=== PATIENT | female | born 1940 | race Caucasian/White ===

== ENCOUNTER 2018-04-09 06:00 | Day surgery (SDC) | payer MEDICARE, OTHER, SELFPAY ==
--- NOTE | 2018-04-07 08:03 | POEE_ITS ---
History of Present Illness Chief Complaint: Progressive decreased vision, left eye Narrative: The patient is a 77-year-old female who presented with complaints of progressive decreased vision in both eyes at both distance and near. She particularly has difficulty with driving at night. On examination she was noted to have moderate nuclear cortical and posterior subcapsular cataract, left eye worse than right with significant glare disability. The option of cataract surgery was offered to the patient and she felt she was symptomatic enough that she wished to proceed. NOTE: The Chief Complaint, HPI, Past Medical History, Past Surgical History, Family History, Social History, Medications, and complete Ophthalmic Exam with detailed Assessment and Plan have already been documented in the patient's outpatient ophthalmic record and are not covered again in detail here. PFS Medical History Nuclear sclerotic cataract of left eye (Acute) Posterior subcapsular age-related cataract of left eye (Acute) Cortical cataract of left eye (Acute) Social History Smoking/Tobacco Use Status: Never Meds Home Medications Medication Instructions Recorded Confirmed Type aspirin [Aspir-81] 81 mg PO DAILY 11/30/13 04/04/18 History atenolol 50 mg PO DAILY 11/30/13 04/04/18 History calcium carb and citrate-vitD3 1 tab PO DAILY 11/30/13 04/04/18 History [Citracal + D Slow Release] simvastatin 10 mg PO DAILY 11/30/13 04/04/18 History hydrochlorothiazide 25 mg PO DAILY 12/21/17 04/04/18 History L. gasseri-B. bifidum-B longum 1 cap PO DAILY 04/04/18 04/04/18 History [Probiotic Colon Care] bisacodyl [Dulcolax (bisacodyl)] 5 mg PO DAILY PRN 04/04/18 04/04/18 History cetirizine [Zyrtec] 1 cap PO DAILY 04/04/18 04/04/18 History cyanocobalamin (vitamin B-12) 1,000 mcg PO DAILY 04/04/18 04/04/18 History [Vitamin B-12] fluticasone [Flonase Allergy 2 spray INTRANASAL DAILY 04/04/18 04/04/18 History Relief] magnesium oxide 400 mg PO DAILY 04/04/18 04/04/18 History omeprazole 20 mg PO DAILY PRN 04/04/18 04/04/18 History psyllium husk (aspartame) 1 ea PO DAILY 04/04/18 04/04/18 History [Metamucil [facility] Fiber] rivaroxaban [Xarelto] 15 mg PO DAILY 04/04/18 04/04/18 History Allergies Allergy/AdvReac Type Severity Reaction Status Date / Time Sulfa (Sulfonamide AdvReac Severe liver Unverified 04/04/18 08:00 Antibiotics) damage ciprofloxacin [From Cipro] AdvReac Intermediate unknown Unverified 04/04/18 08: 00 glucosamine AdvReac Intermediate Nausea Unverified 04/04/18 08:00 Epideral Dressing AdvReac Severe Blistering Uncoded 04/04/18 12:56 Exam OCULAR EXAM:: Visual acuity at distance: Corrected to 20/20 right eye, 20/70 left eye. Pupils: Pupils equal, round, and reactive without afferent pupillary defect IOP: 16 OD 18 OS Extraocular Motility: Normal Pertinent Slit Lamp Findings: Significant for pupils dilating to 7 mm OU. In the right eye 1+ nuclear and 1+ cortical cataract is present with mild posterior subcapsular cataract. In the left eye 2+ nuclear with 1+ cortical and posterior subcapsular cataract is present. Dilated Funduscopic Examination: Disc cupping is 0.3 OU with normal vessels, macula, peripheral retina and vitreous. BRIGHTNESS ACUITY TESTING (BAT):: Off: Left eye 20/30 Low: 20/200 Medium: 20/400 High: Less than 20/400 Assessment and Plan (1) Cortical cataract of left eye: Current visit: No Status: Acute Assessment: Visually significant cataract, left eye. Plan: Cataract extraction with intraocular lens implantation, left eye (2) Posterior subcapsular age-related cataract of left eye: Current visit: No Status: Acute Assessment: Visually significant cataract, left eye. Plan: Cataract extraction with intraocular lens implantation, left eye (3) Nuclear sclerotic cataract of left eye: Current visit: No Status: Acute Assessment: Visually significant cataract, left eye. Plan: Cataract extraction with intraocular lens implantation, left eye Note: NOTE:: The details of the planned surgery, including the risks, indications, limitations,expectations,outcome and possible complications were explained to the patient. The patient understands the complications including, but not limited to: infection, hemorrhage, posterior dislocation of the lens or nuclear fragments which may require the intervention of a vitreoretinal surgeon, possible loss of the eye, or from anesthetic complications. The patient has been made aware of the option of not having surgery, that vision following surgery may not be equal to that prior to surgery, and that the planned surgery may not achieve the intended results. Following this discussion, which the patient appeared to understand, the patient wishes to proceed with cataract surgery with lens implantation of the affected eye to improve and maximize vision.
--- NOTE | 2018-04-07 08:05 | PDOC.DSDIS_ITS ---
Discharge Plan Discharge Details Attending Provider: Gavin Jean-Baptiste Primary Care Provider: Dulce Hidalgo Home Meds and New Rx's Prescriptions: No Action simvastatin 10 MG tablet 10 mg PO DAILY RF: 0 aspirin [Aspir-81] 81 MG tablet,delayed release (DR/EC) 81 mg PO DAILY RF: 0 atenolol 50 MG tablet 50 mg PO DAILY RF: 0 calcium carb and citrate-vitD3 [Citracal + D Slow Release] 1 EACH tablet extended release 1 tab PO DAILY RF: 0 hydrochlorothiazide 25 MG tablet 25 mg PO DAILY RF: 0 cyanocobalamin (vitamin B-12) [Vitamin B-12] 1,000 mcg Tablet 1,000 mcg PO DAILY RF: 0 fluticasone [Flonase Allergy Relief] 50 mcg/actuation [place],Suspension 2 spray INTRANASAL DAILY RF: 0 psyllium husk (aspartame) [Metamucil [facility] Fiber] 3.4 gram/5.8 gram Powder 1 ea PO DAILY RF: 0 cetirizine [Zyrtec] 10 mg Capsule 1 cap PO DAILY RF: 0 omeprazole 20 mg Capsule,Delayed Release(Dr/Ec) 20 mg PO DAILY PRNRF: 0 bisacodyl [Dulcolax (bisacodyl)] 5 mg Tablet,Delayed Release (Dr/Ec) 5 mg PO DAILY PRNRF: 0 L. gasseri-B. bifidum-B longum [Probiotic Colon Care] 1.5 billion cell Capsule 1 cap PO DAILY RF: 0 magnesium oxide 400 mg Capsule 400 mg PO DAILY RF: 0 rivaroxaban [Xarelto] 15 MG tablet 15 mg PO DAILY RF: 0 Discharge Instructions Stand Alone Forms: Post-op Topical Cataract, Millie [place] (DSU) DS: Diagnosis Discharge Diagnosis (1) Cortical cataract of left eye: Status: Acute (2) Posterior subcapsular age-related cataract of left eye: Status: Acute (3) Nuclear sclerotic cataract of left eye: Status: Acute
[2018-04-09 06:10] VITALS: BP 128/63; PULSE 63; RESP 18; TEMP 36.6; O2SAT 98
[2018-04-09] MEDS: Midazolam/Ketamine/Ondansetron (3/25/2MG) 1 TAB 1 EACH SL (07:17)
--- NOTE | 2018-04-09 07:19 | W.PM.DSUDISC ---
Discharge Plan Discharge Details Attending Provider: Gavin Jean-Baptiste Primary Care Provider: Dulce Hidalgo Home Meds and New Rx's Prescriptions: No Action simvastatin 10 MG tablet 10 mg PO DAILY RF: 0 aspirin [Aspir-81] 81 MG tablet,delayed release (DR/EC) 81 mg PO DAILY RF: 0 atenolol 50 MG tablet 50 mg PO DAILY RF: 0 calcium carb and citrate-vitD3 [Citracal + D Slow Release] 1 EACH tablet extended release 1 tab PO DAILY RF: 0 hydrochlorothiazide 25 MG tablet 25 mg PO DAILY RF: 0 cyanocobalamin (vitamin B-12) [Vitamin B-12] 1,000 mcg Tablet 1,000 mcg PO DAILY RF: 0 fluticasone [Flonase Allergy Relief] 50 mcg/actuation [place],Suspension 2 spray INTRANASAL DAILY RF: 0 psyllium husk (aspartame) [Metamucil [facility] Fiber] 3.4 gram/5.8 gram Powder 1 ea PO DAILY RF: 0 cetirizine [Zyrtec] 10 mg Capsule 1 cap PO DAILY RF: 0 omeprazole 20 mg Capsule,Delayed Release(Dr/Ec) 20 mg PO DAILY PRNRF: 0 bisacodyl [Dulcolax (bisacodyl)] 5 mg Tablet,Delayed Release (Dr/Ec) 5 mg PO DAILY PRNRF: 0 L. gasseri-B. bifidum-B longum [Probiotic Colon Care] 1.5 billion cell Capsule 1 cap PO DAILY RF: 0 magnesium oxide 400 mg Capsule 400 mg PO DAILY RF: 0 rivaroxaban [Xarelto] 15 MG tablet 15 mg PO DAILY RF: 0 Discharge Instructions Stand Alone Forms: Post-op Topical Cataract, Millie [place] (DSU) DS: Diagnosis Discharge Diagnosis (1) Cortical cataract of left eye: Status: Resolved (2) Posterior subcapsular age-related cataract of left eye: Status: Resolved (3) Nuclear sclerotic cataract of left eye: Status: Resolved (4) Status post cataract extraction and insertion of intraocular lens of left eye: Status: Chronic
[2018-04-09] MEDS: Povidone-Iodine Ophth 30 ML BTL (07:33)
[2018-04-09] MEDS: Lidocaine 2% Jelly 6 ML SYR (07:34)
[2018-04-09] MEDS: Lidocaine 1% Pres-Free 5 ML VIAL (07:40)
[2018-04-09] MEDS: Balanced Salt Soln.-PLUS 500 ML BAG (07:42)
--- NOTE | 2018-04-09 08:01 | W.PM.OP ---
Date of service: 04/09/18 Time of Service: 08:01 Operative Note DATE OF PROCEDURE: 04/09/18 PRE-OP DIAGNOSIS: Cataract, left eye POST-OP DIAGNOSIS: same PROCEDURE: Cataract extraction using phacoemulsification with intraocular lens implant, left eye SURGEON: Gavin Jean-Baptiste ANESTHESIA: MAC and local (sub-tenon's anesthetic infiltration) PATHOLOGY: none sent COMPLICATIONS: None Patient was transported to: same day Patient's condition: stable Implants: [place] [employer] [place] [employer] / [employer] Tecnis ZCB00 Indications: Progressive decreased vision due to cataract, left eye Procedure Description: CATARACT SURGERY OPERATIVE REPORT PREOPERATIVE DIAGNOSIS: Nuclear/cortical/posterior subcapsular cataract, left eye POSTOPERATIVE DIAGNOSIS: Same OPERATION: Cataract extraction using phacoemulsification with posterior chamber intraocular lens implant, left eye. IOL: IOL Manager Branch/Model: [employer] Vision / ROSA Tecnis ZCB00 IOL Power: + 14.50 diopters IOL Serial Number: [id number] Optic Diameter: 6.0mm Haptic/Overall Diameter: 13.0mm PHACO INFO: AviCyanon Vision System with OZil and Active Fluidics Cumulative Dispersed Energy (CDE): 13.19 seconds SURGEON: Gavin Jean-Baptiste MD, NAZIA ANESTHESIA: Monitored Anesthesia Care (MAC), with local sub-tenon's anesthetic infiltration COMPLICATIONS: None SPECIMENS: None INDICATIONS FOR PROCEDURE: The patient is a 77-year old lady with history of progressive decreased vision in both eyes at both distance and near. She has a history of moderate myopia. She was noted to have a significant nuclear cortical and posterior subcapsular cataract in the left eye. The option of cataract surgery was offered to the patient and she felt she was symptomatic enough that she wished to proceed. PROCEDURE: The correct surgical eye was identified and marked as the left eye and the pupil was dilated in the preoperative area using mydriatics, cycloplegics, and NSAIDS (except in aspirin allergic patients). The dilated pupil size was 8.0 mm. Oral sedation was administered in the form of an Imprimis MKO Melt (midazolam 3mg/ketamine 25mg/ondansetron 2mg). The patient was brought to the operating room where cardiopulmonary monitoring was instituted and surgical time-out was performed, confirming the correct operative eye and IOL power. Topical anesthesia was administered and ophthalmic povidone-iodine 5% was instilled into the conjunctival fornices. Lidocaine gel was applied to the cornea and the hayley-ocular area was prepped with Betadine 10% solution and draped in the usual sterile fashion for intraocular surgery. Steri-strips were used to cover the lashes and lid margins and an adhesive eye drape was placed. Care was taken to isolate the lashes and lid margins under the Steri-strips and adhesive eye drape. A lid speculum was placed between the lids of the operative eye and the Mak-Nino operating microscope was maneuvered into position. Melissa scissors were then used to make a conjunctival buttonhole approximately 6mm posterior to the limbus in the inferonasal quadrant. Blunt dissection was carried out to expose bare sclera, and a blunt-tipped sub-tenon?s anesthesia cannula was introduced and passed posteriorly along the globe where non-preserved plain lidocaine was injected into posterior sub-Tenon?s space. A sideport knife was used to make a paracentesis port at the 12:00 postion and the anterior chamber was filled with Healon GV. A 2.4mm keratome knife was used to create a half-thickness groove at the limbus and then to construct a three-plane near-clear corneal tunnel extending 2.0mm into clear cornea at the 3:00 position. A flap was raised on the anterior capsule and capsulorhexis forceps were used to complete a continuous curvilinear capsulorhexis of 5.5 mm. Balanced salt solution was then used to perform cortical cleaving hydrodissection and nuclear hydrodelineation until the lens could be freely rotated within the capsular bag. The lens nucleus was then disassembled and removed within the capsular bag and iris plane using phacoemulsification. Residual cortical material was removed using the 45-degree angled silicone I/A tip with 0.3mm port. The posterior capsule was carefully polished to remove as much residual lens epithelial cells as safely possible. The capsular bag was then inflated and the anterior chamber deepened with viscoelastic. The lens implant described above was inserted into the capsular bag using the ROSA [place] Injector. A Kuglen hook was used to dial the IOL into position. Residual viscoelastic was then removed first from posterior to the IOL, then from the anterior chamber using the I/A handpiece. The lens implant was noted to center nicely within the capsular bag. The incisions were stromally hydrated, and the anterior chamber was reformed using BSS. Then 0.4cc of moxifloxacin 1.5mg/ml were injected into the capsular bag and anterior chamber. The incisions were checked with a Weck spear and found to be secure. Several drops of ophthalmic povidone-iodine 5% were then applied to the eye followed by two drops of Imprimis combination moxifloxacin/dexamethasone solution. The drapes were removed and a clear plastic protective eye shield was placed over the eye. The patient was then returned to Same Day Surgery in stable condition.
--- NOTE | 2018-04-09 08:04 | ROE_ITS ---
Date of service: 04/09/18 Time of Service: 08:01 Operative Note DATE OF PROCEDURE: 04/09/18 PRE-OP DIAGNOSIS: Cataract, left eye POST-OP DIAGNOSIS: same PROCEDURE: Cataract extraction using phacoemulsification with intraocular lens implant, left eye SURGEON: Gavin Jean-Baptiste ANESTHESIA: MAC and local (sub-tenon's anesthetic infiltration) PATHOLOGY: none sent COMPLICATIONS: None Patient was transported to: same day Patient's condition: stable Implants: [place] and [place] [employer] / [employer] Tecnis ZCB00 Indications: Progressive decreased vision due to cataract, left eye Procedure Description: CATARACT SURGERY OPERATIVE REPORT PREOPERATIVE DIAGNOSIS: Nuclear/cortical/posterior subcapsular cataract, left eye POSTOPERATIVE DIAGNOSIS: Same OPERATION: Cataract extraction using phacoemulsification with posterior chamber intraocular lens implant, left eye. IOL: IOL Art Dealer/Model: J&J Vision / ROSA Tecnis ZCB00 IOL Power: + 14.50 diopters IOL Serial Number: [id number] Optic Diameter: 6.0mm Haptic/Overall Diameter: 13.0mm PHACO INFO: AviUXPinon Vision System with OZil and Active Fluidics Cumulative Dispersed Energy (CDE): 13.19 seconds SURGEON: Gavin Jean-Baptiste MD, NAZIA ANESTHESIA: Monitored Anesthesia Care (MAC), with local sub-tenon's anesthetic infiltration COMPLICATIONS: None SPECIMENS: None INDICATIONS FOR PROCEDURE: The patient is a 77-year old lady with history of progressive decreased vision in both eyes at both distance and near. She has a history of moderate myopia. She was noted to have a significant nuclear cortical and posterior subcapsular cataract in the left eye. The option of cataract surgery was offered to the patient and she felt she was symptomatic enough that she wished to proceed. PROCEDURE: The correct surgical eye was identified and marked as the left eye and the pupil was dilated in the preoperative area using mydriatics, cycloplegics, and NSAIDS (except in aspirin allergic patients). The dilated pupil size was 8.0 mm. Oral sedation was administered in the form of an Imprimis MKO Melt (midazolam 3mg/ketamine 25mg/ondansetron 2mg). The patient was brought to the operating room where cardiopulmonary monitoring was instituted and surgical time-out was performed, confirming the correct operative eye and IOL power. Topical anesthesia was administered and ophthalmic povidone-iodine 5% was instilled into the conjunctival fornices. Lidocaine gel was applied to the cornea and the hayley-ocular area was prepped with Betadine 10% solution and draped in the usual sterile fashion for intraocular surgery. Steri-strips were used to cover the lashes and lid margins and an adhesive eye drape was placed. Care was taken to isolate the lashes and lid margins under the Steri-strips and adhesive eye drape. A lid speculum was placed between the lids of the operative eye and the Mak-Nino operating microscope was maneuvered into position. Melissa scissors were then used to make a conjunctival buttonhole approximately 6mm posterior to the limbus in the inferonasal quadrant. Blunt dissection was carried out to expose bare sclera, and a blunt-tipped sub-tenon? s anesthesia cannula was introduced and passed posteriorly along the globe where non-preserved plain lidocaine was injected into posterior sub-Tenon?s space. A sideport knife was used to make a paracentesis port at the 12:00 postion and the anterior chamber was filled with Healon GV. A 2.4mm keratome knife was used to create a half-thickness groove at the limbus and then to construct a three-plane near-clear corneal tunnel extending 2.0mm into clear cornea at the 3:00 position. A flap was raised on the anterior capsule and capsulorhexis forceps were used to complete a continuous curvilinear capsulorhexis of 5.5 mm. Balanced salt solution was then used to perform cortical cleaving hydrodissection and nuclear hydrodelineation until the lens could be freely rotated within the capsular bag. The lens nucleus was then disassembled and removed within the capsular bag and iris plane using phacoemulsification. Residual cortical material was removed using the 45-degree angled silicone I/A tip with 0.3mm port. The posterior capsule was carefully polished to remove as much residual lens epithelial cells as safely possible. The capsular bag was then inflated and the anterior chamber deepened with viscoelastic. The lens implant described above was inserted into the capsular bag using the ROSA [place] Injector. A Kuglen hook was used to dial the IOL into position. Residual viscoelastic was then removed first from posterior to the IOL, then from the anterior chamber using the I/A handpiece. The lens implant was noted to center nicely within the capsular bag. The incisions were stromally hydrated , and the anterior chamber was reformed using BSS. Then 0.4cc of moxifloxacin 1.5mg/ml were injected into the capsular bag and anterior chamber. The incisions were checked with a Weck spear and found to be secure. Several drops of ophthalmic povidone-iodine 5% were then applied to the eye followed by two drops of Imprimis combination moxifloxacin/dexamethasone solution. The drapes were removed and a clear plastic protective eye shield was placed over the eye. The patient was then returned to Same Day Surgery in stable condition.
[2018-04-09 08:20] VITALS: BP 123/54; PULSE 57; RESP 16; TEMP 35.2; O2SAT 98
== END 2018-04-09 08:26 | disposition home or self-care (01) ==
LOC: SUR 06:00
PROVIDERS: PCP Family Medicine; Visit Provider Ophthalmology
PROC: (CPT 66984; principal; 2018-04-09 07:30)
DX: H25.812 Combined forms of age-related cataract, left eye (principal); K21.9 Gastro-esophageal reflux disease without esophagitis; I10 Essential (primary) hypertension
CPT/HCPCS: 66984; V2632

== ENCOUNTER 2018-04-23 09:57 | Day surgery (SDC) | payer MEDICARE, OTHER, SELFPAY ==
--- NOTE | 2018-04-22 21:05 | W.PIPPEYE ---
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 She was significantly symptomatic with decreased vision at both distance and near and significant difficulty with glare from bright lights. She underwent cataract surgery in the left eye on 04/09/2018. Postoperatively she has regained uncorrected visual acuity of 20/15. She now presents for cataract surgery of the right eye. NOTE: The Chief Complaint, HPI, Past Medical History, Past Surgical History, Family History, Social History, Medications, and complete Ophthalmic Exam with detailed Assessment and Plan have already been documented in the patient's outpatient ophthalmic record and are not covered again in detail here. [facility] Social History Smoking/Tobacco Use Status: Never Surgical History Status post cataract extraction and insertion of intraocular lens of left eye (Chronic 04/09/18) Meds Home Medications Medication Instructions Recorded Confirmed Type aspirin [Aspir-81] 81 mg PO DAILY 11/30/13 04/09/18 History atenolol 50 mg PO DAILY 11/30/13 04/09/18 History calcium carb and citrate-vitD3 1 tab PO DAILY 11/30/13 04/09/18 History [Citracal + D Slow Release] simvastatin 10 mg PO DAILY 11/30/13 04/09/18 History hydrochlorothiazide 25 mg PO DAILY 12/21/17 04/09/18 History L. gasseri-B. bifidum-B longum 1 cap PO DAILY 04/04/18 04/09/18 History [Probiotic Colon Care] bisacodyl [Dulcolax (bisacodyl)] 5 mg PO DAILY PRN 04/04/18 04/09/18 History cetirizine [Zyrtec] 1 cap PO DAILY 04/04/18 04/09/18 History cyanocobalamin (vitamin B-12) 1,000 mcg PO DAILY 04/04/18 04/09/18 History [Vitamin B-12] fluticasone [Flonase Allergy 2 spray INTRANASAL DAILY 04/04/18 04/09/18 History Relief] magnesium oxide 400 mg PO DAILY 04/04/18 04/09/18 History omeprazole 20 mg PO DAILY PRN 04/04/18 04/09/18 History psyllium husk (aspartame) 1 ea PO DAILY 04/04/18 04/09/18 History [Metamucil [facility] Fiber] rivaroxaban [Xarelto] 15 mg PO DAILY 04/04/18 04/09/18 History Allergies Allergy/AdvReac Type Severity Reaction Status Date / Time Sulfa (Sulfonamide AdvReac Severe liver Unverified 04/09/18 06:20 Antibiotics) damage ciprofloxacin [From Cipro] AdvReac Intermediate unknown Unverified 04/09/18 06:20 glucosamine AdvReac Intermediate Nausea Unverified 04/09/18 06:20 Epideral Dressing AdvReac Severe Blistering Uncoded 04/09/18 06:20 Exam OCULAR EXAM:: Visual acuity at distance: 20/20 right eye, 20/15 left eye Pupils: Pupils equal, round, and reactive without afferent pupillary defect IOP: 16 OD 18 OS Extraocular Motility: Normal Pertinent Slit Lamp Findings: Significant for pupils dilating to 7 mm OU. 1+ nuclear with 1+ cortical and mild posterior subcapsular cataract, right eye. Well-positioned PCIOL, left eye with clear posterior capsule. Dilated Funduscopic Examination: Disc cupping is 0.3 OU with good color. The optic nerves have good perfusion and normal color. The retinal vasculature is normal without significant tortuosity or abnormality. The maculas are normal in appearance with normal contour and foveal reflex appropriate for age. The peripheral retina and vitreous are normal. BRIGHTNESS ACUITY TESTING (BAT):: Off right eye 20/20 Low: 20/25 Medium: 20/25 High: 20/25 Assessment and Plan (1) Posterior subcapsular age-related cataract, right eye: Current visit: No Status: Acute Assessment: Visually significant cataract, right eye. Plan: Cataract extraction with intraocular lens implantation, right eye (2) Nuclear sclerotic cataract of right eye: Current visit: No Status: Acute Assessment: Visually significant cataract, right eye. Plan: Cataract extraction with intraocular lens implantation, right eye (3) Cortical cataract of right eye: Current visit: No Status: Acute Assessment: Visually significant cataract, right eye. Plan: Cataract extraction with intraocular lens implantation, right eye Note: NOTE:: The details of the planned surgery, including the risks, indications,limitations,expectations,outcome and possible complications were explained to the patient. The patient understands the complications including, but not limited to: infection, hemorrhage, posterior dislocation of the lens or nuclear fragments which may require the intervention of a vitreoretinal surgeon, possible loss of the eye, or from anesthetic complications. The patient has been made aware of the option of not having surgery, that vision following surgery may not be equal to that prior to surgery, and that the planned surgery may not achieve the intended results. Following this discussion, which the patient appeared to understand, the patient wishes to proceed with cataract surgery with lens implantation of the affected eye to improve and maximize vision.
--- NOTE | 2018-04-22 21:09 | POEE_ITS ---
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 She was significantly symptomatic with decreased vision at both distance and near and significant difficulty with glare from bright lights. She underwent cataract surgery in the left eye on 04/09/2018. Postoperatively she has regained uncorrected visual acuity of 20/15. She now presents for cataract surgery of the right eye. NOTE: The Chief Complaint, HPI, Past Medical History, Past Surgical History, Family History, Social History, Medications, and complete Ophthalmic Exam with detailed Assessment and Plan have already been documented in the patient's outpatient ophthalmic record and are not covered again in detail here. [facility] Social History Smoking/Tobacco Use Status: Never Surgical History Status post cataract extraction and insertion of intraocular lens of left eye ( Chronic 04/09/18) Meds Home Medications Medication Instructions Recorded Confirmed Type aspirin [Aspir-81] 81 mg PO DAILY 11/30/13 04/09/18 History atenolol 50 mg PO DAILY 11/30/13 04/09/18 History calcium carb and citrate-vitD3 1 tab PO DAILY 11/30/13 04/09/18 History [Citracal + D Slow Release] simvastatin 10 mg PO DAILY 11/30/13 04/09/18 History hydrochlorothiazide 25 mg PO DAILY 12/21/17 04/09/18 History L. gasseri-B. bifidum-B longum 1 cap PO DAILY 04/04/18 04/09/18 History [Probiotic Colon Care] bisacodyl [Dulcolax (bisacodyl)] 5 mg PO DAILY PRN 04/04/18 04/09/18 History cetirizine [Zyrtec] 1 cap PO DAILY 04/04/18 04/09/18 History cyanocobalamin (vitamin B-12) 1,000 mcg PO DAILY 04/04/18 04/09/18 History [Vitamin B-12] fluticasone [Flonase Allergy 2 spray INTRANASAL DAILY 04/04/18 04/09/18 History Relief] magnesium oxide 400 mg PO DAILY 04/04/18 04/09/18 History omeprazole 20 mg PO DAILY PRN 04/04/18 04/09/18 History psyllium husk (aspartame) 1 ea PO DAILY 04/04/18 04/09/18 History [Metamucil [facility] Fiber] rivaroxaban [Xarelto] 15 mg PO DAILY 04/04/18 04/09/18 History Allergies Allergy/AdvReac Type Severity Reaction Status Date / Time Sulfa (Sulfonamide AdvReac Severe liver Unverified 04/09/18 06:20 Antibiotics) damage ciprofloxacin [From Cipro] AdvReac Intermediate unknown Unverified 04/09/18 06: 20 glucosamine AdvReac Intermediate Nausea Unverified 04/09/18 06:20 Epideral Dressing AdvReac Severe Blistering Uncoded 04/09/18 06:20 Exam OCULAR EXAM:: Visual acuity at distance: 20/20 right eye, 20/15 left eye Pupils: Pupils equal, round, and reactive without afferent pupillary defect IOP: 16 OD 18 OS Extraocular Motility: Normal Pertinent Slit Lamp Findings: Significant for pupils dilating to 7 mm OU. 1+ nuclear with 1+ cortical and mild posterior subcapsular cataract, right eye. Well-positioned PCIOL, left eye with clear posterior capsule. Dilated Funduscopic Examination: Disc cupping is 0.3 OU with good color. The optic nerves have good perfusion and normal color. The retinal vasculature is normal without significant tortuosity or abnormality. The maculas are normal in appearance with normal contour and foveal reflex appropriate for age. The peripheral retina and vitreous are normal. BRIGHTNESS ACUITY TESTING (BAT):: Off right eye 20/20 Low: 20/25 Medium: 20/25 High: 20/25 Assessment and Plan (1) Posterior subcapsular age-related cataract, right eye: Current visit: No Status: Acute Assessment: Visually significant cataract, right eye. Plan: Cataract extraction with intraocular lens implantation, right eye (2) Nuclear sclerotic cataract of right eye: Current visit: No Status: Acute Assessment: Visually significant cataract, right eye. Plan: Cataract extraction with intraocular lens implantation, right eye (3) Cortical cataract of right eye: Current visit: No Status: Acute Assessment: Visually significant cataract, right eye. Plan: Cataract extraction with intraocular lens implantation, right eye Note: NOTE:: The details of the planned surgery, including the risks, indications, limitations,expectations,outcome and possible complications were explained to the patient. The patient understands the complications including, but not limited to: infection, hemorrhage, posterior dislocation of the lens or nuclear fragments which may require the intervention of a vitreoretinal surgeon, possible loss of the eye, or from anesthetic complications. The patient has been made aware of the option of not having surgery, that vision following surgery may not be equal to that prior to surgery, and that the planned surgery may not achieve the intended results. Following this discussion, which the patient appeared to understand, the patient wishes to proceed with cataract surgery with lens implantation of the affected eye to improve and maximize vision.
[2018-04-23 10:21] VITALS: BP 151/70; PULSE 58; RESP 18; TEMP 36.8; O2SAT 97
[2018-04-23] MEDS: Balanced Salt Soln.-PLUS 500 ML BAG (11:50)
[2018-04-23] MEDS: Lidocaine 1% Pres-Free 5 ML VIAL (11:52)
[2018-04-23] MEDS: Lidocaine 2% Jelly 6 ML SYR (11:52)
[2018-04-23] MEDS: Povidone-Iodine Ophth 30 ML BTL (11:54)
--- NOTE | 2018-04-23 12:04 | PDOC.DSDIS_ITS ---
Discharge Plan Discharge Details Attending Provider: Gavin Jean-Baptiste Primary Care Provider: Dulce Hidalgo Home Meds and New Rx's Prescriptions: No Action simvastatin 10 MG tablet 10 mg PO DAILY RF: 0 aspirin [Aspir-81] 81 MG tablet,delayed release (DR/EC) 81 mg PO DAILY RF: 0 atenolol 50 MG tablet 50 mg PO DAILY RF: 0 calcium carb and citrate-vitD3 [Citracal + D Slow Release] 1 EACH tablet extended release 1 tab PO DAILY RF: 0 hydrochlorothiazide 25 MG tablet 25 mg PO DAILY RF: 0 cyanocobalamin (vitamin B-12) [Vitamin B-12] 1,000 mcg Tablet 1,000 mcg PO DAILY RF: 0 fluticasone [Flonase Allergy Relief] 50 mcg/actuation [place],Suspension 2 spray INTRANASAL DAILY RF: 0 psyllium husk (aspartame) [Metamucil [facility] Fiber] 3.4 gram/5.8 gram Powder 1 ea PO DAILY RF: 0 cetirizine [Zyrtec] 10 mg Capsule 1 cap PO DAILY RF: 0 omeprazole 20 mg Capsule,Delayed Release(Dr/Ec) 20 mg PO DAILY PRNRF: 0 bisacodyl [Dulcolax (bisacodyl)] 5 mg Tablet,Delayed Release (Dr/Ec) 5 mg PO DAILY PRNRF: 0 L. gasseri-B. bifidum-B longum [Probiotic Colon Care] 1.5 billion cell Capsule 1 cap PO DAILY RF: 0 magnesium oxide 400 mg Capsule 400 mg PO DAILY RF: 0 rivaroxaban [Xarelto] 15 MG tablet 15 mg PO DAILY RF: 0 Discharge Instructions Stand Alone Forms: Post-op Topical Cataract, Millie [place] (DSU) DS: Diagnosis Discharge Diagnosis (1) Posterior subcapsular age-related cataract, right eye: Status: Resolved (2) Nuclear sclerotic cataract of right eye: Status: Resolved (3) Cortical cataract of right eye: Status: Resolved (4) Status post cataract extraction and insertion of intraocular lens of right eye: Status: Chronic
--- NOTE | 2018-04-23 12:04 | W.PM.OP ---
Date of service: 04/23/18 Time of Service: 12:04 Operative Note DATE OF PROCEDURE: 04/23/18 PRE-OP DIAGNOSIS: Cataract, right eye POST-OP DIAGNOSIS: same SURGEON: Gavin Jean-Baptiste ANESTHESIA: MAC and local (sub-tenon's anesthetic infiltration) PATHOLOGY: none sent COMPLICATIONS: None Patient was transported to: same day Patient's condition: stable Implants: [place] [employer] [place] [employer] / [employer] Tecnis ZCB00 Indications: Progressive decreased vision due to cataract, right eye Procedure Description: CATARACT SURGERY OPERATIVE REPORT PREOPERATIVE DIAGNOSIS: Nuclear/cortical/posterior subcapsular cataract POSTOPERATIVE DIAGNOSIS: Same OPERATION: Cataract extraction using phacoemulsification with posterior chamber intraocular lens implant, right eye. IOL: IOL Vtc Technician/Model: [employer] Vision / ROSA [employer]ecnis ZCB00 IOL Power: + 17.5 diopters IOL Serial Number: [id number] Optic Diameter: 6.0mm Haptic/Overall Diameter: 13.0mm PHACO INFO: Avi [place] Vision System with OZil and Active Fluidics Cumulative Dispersed Energy (CDE): 7.51 seconds SURGEON: Gavin Jean-Baptiste MD, NAZAI ANESTHESIA: Monitored Anesthesia Care (MAC), with local sub-tenon's anesthetic infiltration COMPLICATIONS: None SPECIMENS: None INDICATIONS FOR PROCEDURE: The patient is a 77-year-old female with history of bilateral nuclear cortical and posterior subcapsular cataracts. She has already undergone cataract surgery in her left eye and is doing well postoperatively. She now presents for cataract surgery in the right eye. PROCEDURE: The correct surgical eye was identified and marked as the right eye and the pupil was dilated in the preoperative area using mydriatics, cycloplegics, and NSAIDS (except in aspirin allergic patients). The dilated pupil size was 7.0 mm. Oral sedation was administered in the form of an Imprimis MKO Melt (midazolam 3mg/ketamine 25mg/ondansetron 2mg). The patient was brought to the operating room where cardiopulmonary monitoring was instituted and surgical time-out was performed, confirming the correct operative eye and IOL power. Topical anesthesia was administered and ophthalmic povidone-iodine 5% was instilled into the conjunctival fornices. Lidocaine gel was applied to the cornea and the hayley-ocular area was prepped with Betadine 10% solution and draped in the usual sterile fashion for intraocular surgery. Steri-strips were used to cover the lashes and lid margins and an adhesive eye drape was placed. Care was taken to isolate the lashes and lid margins under the Steri-strips and adhesive eye drape. A lid speculum was placed between the lids of the operative eye and the Mak-Nino operating microscope was maneuvered into position. Melissa scissors were then used to make a conjunctival buttonhole approximately 6mm posterior to the limbus in the inferonasal quadrant. Blunt dissection was carried out to expose bare sclera, and a blunt-tipped sub-tenon?s anesthesia cannula was introduced and passed posteriorly along the globe where non-preserved plain lidocaine was injected into posterior sub-Tenon?s space. A sideport knife was used to make a paracentesis port at the 7:00 postion and the anterior chamber was filled with Heal[place] GV. A 2.4mm keratome knife was used to create a half-thickness groove at the limbus and then to construct a three-plane near-clear corneal tunnel extending 2.0mm into clear cornea at the 10:00 position. A flap was raised on the anterior capsule and capsulorhexis forceps were used to complete a continuous curvilinear capsulorhexis of 5.0 mm. Balanced salt solution was then used to perform cortical cleaving hydrodissection and nuclear hydrodelineation until the lens could be freely rotated within the capsular bag. The lens nucleus was then disassembled and removed within the capsular bag and iris plane using phacoemulsification. Residual cortical material was removed using the 45-degree angled silicone I/A tip with 0.3mm port. The posterior capsule was carefully polished to remove as much residual lens epithelial cells as safely possible. The capsular bag was then inflated and the anterior chamber deepened with viscoelastic. The lens implant described above was inserted into the capsular bag using the ROSA [place] Ira Injector. A Kuglen hook was used to dial the IOL into position. Residual viscoelastic was then removed first from posterior to the IOL, then from the anterior chamber using the I/A handpiece. The lens implant was noted to center nicely within the capsular bag. The incisions were stromally hydrated, and the anterior chamber was reformed using BSS. Then 0.4cc of moxifloxacin 1.5mg/ml were injected into the capsular bag and anterior chamber. The incisions were checked with a Weck spear and found to be secure. Several drops of ophthalmic povidone-iodine 5% were then applied to the eye followed by two drops of Imprimis combination moxifloxacin/dexamethasone solution. The drapes were removed and a clear plastic protective eye shield was placed over the eye. The patient was then returned to Same Day Surgery in stable condition.
--- NOTE | 2018-04-23 12:07 | ROE_ITS ---
Date of service: 04/23/18 Time of Service: 12:04 Operative Note DATE OF PROCEDURE: 04/23/18 PRE-OP DIAGNOSIS: Cataract, right eye POST-OP DIAGNOSIS: same SURGEON: Gavin Jean-Baptiste ANESTHESIA: MAC and local (sub-tenon's anesthetic infiltration) PATHOLOGY: none sent COMPLICATIONS: None Patient was transported to: same day Patient's condition: stable Implants: [place] [employer] / [employer] Tecnis ZCB00 Indications: Progressive decreased vision due to cataract, right eye Procedure Description: CATARACT SURGERY OPERATIVE REPORT PREOPERATIVE DIAGNOSIS: Nuclear/cortical/posterior subcapsular cataract POSTOPERATIVE DIAGNOSIS: Same OPERATION: Cataract extraction using phacoemulsification with posterior chamber intraocular lens implant, right eye. 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 She has already undergone cataract surgery in her left eye and is doing well postoperatively. She now presents for cataract surgery in the right eye. PROCEDURE: The correct surgical eye was identified and marked as the right eye and the pupil was dilated in the preoperative area using mydriatics, cycloplegics, and NSAIDS (except in aspirin allergic patients). The dilated pupil size was 7.0 mm. Oral sedation was administered in the form of an Imprimis MKO Melt (midazolam 3mg/ketamine 25mg/ondansetron 2mg). The patient was brought to the operating room where cardiopulmonary monitoring was instituted and surgical time-out was performed, confirming the correct operative eye and IOL power. Topical anesthesia was administered and ophthalmic povidone-iodine 5% was instilled into the conjunctival fornices. Lidocaine gel was applied to the cornea and the hayley-ocular area was prepped with Betadine 10% solution and draped in the usual sterile fashion for intraocular surgery. Steri-strips were used to cover the lashes and lid margins and an adhesive eye drape was placed. Care was taken to isolate the lashes and lid margins under the Steri-strips and adhesive eye drape. A lid speculum was placed between the lids of the operative eye and the Mak-Nino operating microscope was maneuvered into position. Melissa scissors were then used to make a conjunctival buttonhole approximately 6mm posterior to the limbus in the inferonasal quadrant. Blunt dissection was carried out to expose bare sclera, and a blunt-tipped sub-tenon? s anesthesia cannula was introduced and passed posteriorly along the globe where non-preserved plain lidocaine was injected into posterior sub-Tenon?s space. A sideport knife was used to make a paracentesis port at the 7:00 postion and the anterior chamber was filled with Healon GV. A 2.4mm keratome knife was used to create a half-thickness groove at the limbus and then to construct a three-plane near-clear corneal tunnel extending 2.0mm into clear cornea at the 10:00 position. A flap was raised on the anterior capsule and capsulorhexis forceps were used to complete a continuous curvilinear capsulorhexis of 5.0 mm. Balanced salt solution was then used to perform cortical cleaving hydrodissection and nuclear hydrodelineation until the lens could be freely rotated within the capsular bag. The lens nucleus was then disassembled and removed within the capsular bag and iris plane using phacoemulsification. Residual cortical material was removed using the 45-degree angled silicone I/A tip with 0.3mm port. The posterior capsule was carefully polished to remove as much residual lens epithelial cells as safely possible. The capsular bag was then inflated and the anterior chamber deepened with viscoelastic. The lens implant described above was inserted into the capsular bag using the ROSA [place] Injector. A Kuglen hook was used to dial the IOL into position. Residual viscoelastic was then removed first from posterior to the IOL, then from the anterior chamber using the I/A handpiece. The lens implant was noted to center nicely within the capsular bag. The incisions were stromally hydrated , and the anterior chamber was reformed using BSS. Then 0.4cc of moxifloxacin 1.5mg/ml were injected into the capsular bag and anterior chamber. The incisions were checked with a Weck spear and found to be secure. Several drops of ophthalmic povidone-iodine 5% were then applied to the eye followed by two drops of Imprimis combination moxifloxacin/dexamethasone solution. The drapes were removed and a clear plastic protective eye shield was placed over the eye. The patient was then returned to Same Day Surgery in stable condition.
[2018-04-23 12:22] VITALS: BP 122/61; PULSE 65; RESP 18; TEMP 36.1; O2SAT 99
== END 2018-04-23 12:33 | disposition home or self-care (01) ==
LOC: SUR 09:58
PROVIDERS: PCP Family Medicine; Visit Provider Ophthalmology
PROC: (CPT 66984; principal; 2018-04-23 13:30)
DX: H25.811 Combined forms of age-related cataract, right eye (principal); Z98.42 Cataract extraction status, left eye; Z96.1 Presence of intraocular lens; K21.9 Gastro-esophageal reflux disease without esophagitis; I10 Essential (primary) hypertension
CPT/HCPCS: 66984; V2632

== ENCOUNTER 2018-07-16 08:28 | Emergency (ER) | payer MEDICARE, OTHER, SELFPAY ==
[2018-07-16] VITALS (62 sets, daily range): BP systolic 106–144; BP diastolic 42–112; PULSE 57–100; RESP 0–32; TEMP 37; O2SAT 92–100
--- NOTE | 2018-07-16 08:28 | W.ED.GENAD ---
Discharge Plan Discharge Details Chief Complaint: Abd Prob Reason For Visit: FELIZ Primary Care Provider: Dulce Hidalgo ED Provider: Mago Zabala Home Meds and New Rx's Prescriptions: No Action oxycodone 5 mg capsule 5 mg PO Q6H RF: 0 cetirizine [Zyrtec] 10 mg tablet 10 mg PO DAILY PRNRF: 0 acetaminophen [Tylenol Extra Strength] 500 mg tablet 500 mg PO Q6H PRNRF: 0 simvastatin 10 MG tablet 10 mg PO DAILY RF: 0 atenolol 50 MG tablet 50 mg PO DAILY RF: 0 calcium carb and citrate-vitD3 [Citracal + D Slow Release] 1 EACH tablet extended release 1 tab PO DAILY RF: 0 hydrochlorothiazide 25 MG tablet 25 mg PO DAILY RF: 0 cyanocobalamin (vitamin B-12) [Vitamin B-12] 1,000 mcg Tablet 1,000 mcg PO DAILY RF: 0 Metamucil [facility] Fiber 3.4 gram/5.8 gram Powder 1 ea PO DAILY RF: 0 bisacodyl [Dulcolax (bisacodyl)] 5 mg Tablet,Delayed Release (Dr/Ec) 5 mg PO DAILY PRNRF: 0 magnesium oxide 400 mg Capsule 400 mg PO DAILY RF: 0 fluticasone [Flonase Allergy Relief] 50 mcg/actuation spray,suspension 2 spray INTRANASAL DAILY PRNRF: 0 omeprazole 20 mg capsule,delayed release(DR/EC) 20 mg PO DAILY RF: 0 Xarelto 15 mg tablet 15 mg PO DAILY RF: 0 Discharge Data Discharge Date/Time-TO BE ENTERED AT DEPARTURE: 07/16/18 15:18 Medical Decision Making Isaura Aguiar is a 77 y/o woman with history of breast, ovarian, and bladder cancer in the past now in remission, hypertension, hyperlipidemia, 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 On exam patient is mildly uncomfortable but nontoxic-appearing, she is tenderness over the mid upper abdomen with reducible ventral hernia that is mildly tender to palpation but not firm. No peritoneal signs. No overlying skin changes. Concern for bowel obstruction versus biliary disease versus pancreatitis versus other. Doubt ACS, mesenteric ischemia. Exam/history not consistent with acute aortic etiology, sepsis. Patient with history of nephrectomy after bladder cancer, now with only left kidney. Had CT with contrast at [facility] on 07/01/18. Plan for screening labs, non-con CT, IV fluid hydration, record retrieval from [facility]. Patient declines pain medication or antiemetics at this time, did receive 10 mg of morphine in the field from EMS prior to arrival. EKG okay. Labs reviewed. CT shows hernia, no other acute process per radiology. Dr. Sepulveda of surgery consulted for further evaluation. Assessment hernia is partially reducible with use of ultrasound is apparent that hernia is unable to be fully reduced. Concern for incarcerated bowel. Given patient's complicated surgical history, Dr. Paz recommends transfer to [facility]. Patient also requesting surgery to be performed at [facility]. [facility] surgery contacted for transfer, discussed patient presentation, results with Dr. Haywood who reviewed today's CT scan is accepting physician; she had no further recommendations for intervention at this time, recommends hold abx. Patient reports that she feels relatively well, and declines pain medication. Clinical Impression: Incarcerated hernia Disposition: [facility] Medical Records Medical records reviewed: Yes I reviewed the patient's medical records. Imaging Data Radiologic Study: Attestation: I personally reviewed and interpreted this imaging study as follows: Radiologist's impression: ABDOMEN AND PELVIC CT: Comparison is made with 12/21/17. Oral contrast was administered. There is again noted to be a fatty containing abdominal wall hernia containing both colon and small bowel. The hernia does not appear to be causing obstruction. The distal small bowel does not contain oral contrast. There is mild dilatation of proximal small bowel, similar to the previous exam. There is a moderate quantity of stool. No inflammatory changes are seen involving the colon. Respiratory motion is noted at the lung bases. The uterus is unremarkable. There is a question of mild stranding around the bladder which is not definitely changed. There has been continued increase in severity of the L 4 compression fracture. IMPRESSION: No significant change in mild bowel dilatation and anterior abdominal wall hernia containing small bowel and colon. Lab Data Lab results reviewed: Yes I reviewed the patient's lab results. Laboratory Tests Range/Units 07/16/18 07/16/18 07/16/18 08:58 08:58 08:58 WBC (4.4-10.8) k/cumm 9.03 RBC (4.00-5.20) m/cumm 3.98 L Hgb (12.0-15.5) g/dL 11.3 L Hct (36.0-46.0) % 35.3 L MCV (80-95) fL 88.7 MCH (27.0-33.0) pg 28.4 MCHC (32.0-36.0) g/dL 32.0 RDW (11.7-14.6) % 15.9 H Plt Count (130-400) x1000/uL 218 MPV (8.0-11.0) fL 10.0 Immature Gran % 0.3 Neutrophils % 87.7 Lymphocytes % 7.6 Monocytes % 4.2 Eosinophils % 0.1 Basophils % 0.1 Absolute Neutrophils (1.2-6.7) k/cumm 7.91 H Absolute Lymphocytes (1.2-3.4) k/cumm 0.69 L Absolute Monocytes (0.11-0.7) k/cumm 0.38 Absolute Eosinophils (0.0-0.7) k/cumm 0.01 Absolute Basophils (0.0-0.2) k/cumm 0.01 Sodium (136-145) mmol/L 137 Potassium (3.5-5.1) mmol/L 4.4 Chloride (98-107) mmol/L 100 Carbon Dioxide (21.0-32.0) mmol/L 29.9 Anion Gap (3-11) mmol/L 7.1 BUN (7-18) mg/dL 27 H Creatinine (0.55-1.02) mg/dL 1.62 H Estimated GFR/1.73 m2 (mL/min/1.73m2) 30.98 Glucose (70-100) mg/dL 170 H Lactate (0.6-1.4) mmol/l 1.4 Calcium (8.5-10.1) mg/dL 9.2 Total Bilirubin (0.2-1.0) mg/dL 0.3 AST (15-37) U/L 15 ALT (12-78) U/L 16 Alkaline Phosphatase (46-116) U/L 85 Troponin I (0.00-0.06) ng/mL < 0.02 Total Protein (6.4-8.2) g/dL 6.7 Albumin (3.4-5.0) g/dL 3.0 L Lipase (73-393) U/L 62 L Urine Color (Yellow) Urine Clarity Urine pH (5-8) Ur Specific [place] (1.005-1.025) Urine Protein (Negative) mg/dL Urine Ketones (Negative) mg/dL Urine Blood (Negative) Urine Nitrite (Negative) Urine Bilirubin (Negative) Urine Urobilinogen (Up TO 0.2) EU/dL Ur Leukocyte Esterase (Negative) Urine Glucose (Negative) mg/dL Range/Units 07/16/18 10:05 WBC (4.4-10.8) k/cumm RBC (4.00-5.20) m/cumm Hgb (12.0-15.5) g/dL Hct (36.0-46.0) % MCV (80-95) fL MCH (27.0-33.0) pg MCHC (32.0-36.0) g/dL RDW (11.7-14.6) % Plt Count (130-400) x1000/uL MPV (8.0-11.0) fL Immature Gran % Neutrophils % Lymphocytes % Monocytes % Eosinophils % Basophils % Absolute Neutrophils (1.2-6.7) k/cumm Absolute Lymphocytes (1.2-3.4) k/cumm Absolute Monocytes (0.11-0.7) k/cumm Absolute Eosinophils (0.0-0.7) k/cumm Absolute Basophils (0.0-0.2) k/cumm Sodium (136-145) mmol/L Potassium (3.5-5.1) mmol/L Chloride (98-107) mmol/L Carbon Dioxide (21.0-32.0) mmol/L Anion Gap (3-11) mmol/L BUN (7-18) mg/dL Creatinine (0.55-1.02) mg/dL Estimated GFR/1.73 m2 (mL/min/1.73m2) Glucose (70-100) mg/dL Lactate (0.6-1.4) mmol/l Calcium (8.5-10.1) mg/dL Total Bilirubin (0.2-1.0) mg/dL AST (15-37) U/L ALT (12-78) U/L Alkaline Phosphatase (46-116) U/L Troponin I (0.00-0.06) ng/mL Total Protein (6.4-8.2) g/dL Albumin (3.4-5.0) g/dL Lipase (73-393) U/L Urine Color (Yellow) Yellow Urine Clarity Clear Urine pH (5-8) 7.0 Ur Specific [place] (1.005-1.025) 1.020 Urine Protein (Negative) mg/dL Negative Urine Ketones (Negative) mg/dL Negative Urine Blood (Negative) Negative Urine Nitrite (Negative) Negative Urine Bilirubin (Negative) Negative Urine Urobilinogen (Up TO 0.2) EU/dL 0.2 Ur Leukocyte Esterase (Negative) Negative Urine Glucose (Negative) mg/dL Negative ECG Data Attestation: I personally reviewed and interpreted this ECG (s) as follows: Interpretation: EKG shows sinus rhythm at 63, normal axis, no acute ischemic changes, nondiagnostic EKG HPI General Mode of arrival: EMS. Date/Time Provider Initiated Documentation: 07/16/18 09:43. Limitations to Documentation: no limitations. Information obtained by: patient, family, RN notes reviewed and old records reviewed. HPI Narrative: Isaura Aguiar is a 27-year-old woman with history of hypertension, high cholesterol, ovarian and breast cancer in the past, bladder cancer in remission for 1 year not currently being treated for cancer, PE and DVT in the past currently on Xarelto presenting to the emergency department with abdominal pain and vomiting. Patient reports that last night she developed mid upper abdominal pain radiating into the right upper quadrant. Pain worsened throughout the night, and approximately 3 in the morning she began vomiting. Last bowel movement was 2 days ago, when she took Imodium for loose stools. Emesis is bilious, nonbloody. Patient denies any other pain, fevers, rash, shortness of breath, cough. Has never had similar pain in the past. She reports that she has been diagnosed with a hernia in the area of her pain on a prior CAT scan. She reports that she was seen at [facility] on 07/09/18 for a CAT scan to evaluate for any recurrence of cancer and also for labs. She reports that she has not heard back regarding the results of that testing. Has been eating and drinking as usual prior to last night. No other recent illnesses. Related Data Home Medications Medication Instructions Recorded Confirmed atenolol 50 mg PO DAILY 11/30/13 07/27/18 calcium carb and citrate-vitD3 1 tab PO DAILY 11/30/13 07/27/18 [Citracal + D Slow Release] simvastatin 10 mg PO DAILY 11/30/13 07/27/18 hydrochlorothiazide 25 mg PO DAILY 12/21/17 07/27/18 bisacodyl [Dulcolax (bisacodyl)] 5 mg PO DAILY PRN 04/04/18 07/27/18 cyanocobalamin (vitamin B-12) 1,000 mcg PO DAILY 04/04/18 07/27/18 [Vitamin B-12] magnesium oxide 400 mg PO DAILY 04/04/18 07/27/18 psyllium husk (aspartame) 1 ea PO DAILY 04/04/18 07/27/18 [Metamucil [facility] Fiber] oxycodone 5 mg capsule 5 mg PO Q6H cap 07/26/18 07/27/18 acetaminophen 500 mg tablet 500 mg PO Q6H PRN 07/27/18 07/27/18 cetirizine 10 mg tablet 10 mg PO DAILY PRN tab 07/27/18 07/27/18 fluticasone 50 mcg/actuation nasal 2 spray INTRANASAL DAILY PRN 07/27/18 07/27/18 spray,suspension omeprazole 20 mg capsule,delayed 20 mg PO DAILY 07/27/18 07/27/18 release rivaroxaban 15 mg tablet 15 mg PO DAILY tab 07/27/18 07/27/18 Allergies Allergy/AdvReac Type Severity Reaction Status Date / Time Sulfa (Sulfonamide AdvReac Severe liver Verified 07/27/18 11:05 Antibiotics) damage ciprofloxacin [From Cipro] AdvReac Intermediate unknown Verified 07/27/18 11:05 glucosamine AdvReac Intermediate Nausea Verified 07/27/18 11:05 Epideral Dressing AdvReac Severe Blistering Uncoded 07/27/18 11:05 Review of Systems Review of Systems Constitutional: denies fevers Eyes: denies eye pain ENT: denies facial pain, dental pain, sore throat Cardiovascular: denies chest pain, edema Respiratory: denies SOB, cough GI: reports abdominal pain, vomiting, diarrhea 2 days ago : denies flank pain MSK: denies back pain, neck pain, arthralgias, myalgias Skin: denies rash Neuro: denies headaches, numbness, weakness PFSH Medical History Dehydration (Acute) IT band syndrome (Acute) Incisional hernia (Acute) Neutropenia (Acute) Actinic keratosis (Chronic) BRCA2 positive (Chronic) Benign essential tremor (Chronic) Breast cancer, stage 1 (Chronic) H/O ovarian cancer (Chronic) H/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) H/O renal cell cancer (Chronic) HTN (hypertension) (Chronic) Osteopenia (Chronic) Seborrheic keratoses (Chronic) S/p nephrectomy (Resolved 11/02/16) Ventral hernia (Resolved) Surgical History Status post cataract extraction and insertion of intraocular lens of right eye (Chronic 04/23/18) Status post cataract extraction and insertion of intraocular lens of left eye (Chronic 04/09/18) S/P recurrent ventral herniorrhaphy (Acute 07/17/18) H/O partial cystectomy (Resolved) History of appendectomy (Resolved) History of bowel resection (Resolved) S/P TKR (total knee replacement) (Resolved) S/P hysterectomy with oophorectomy (Resolved) Social History Smoking and Tabacco status: Never alcohol intake: current alcohol intake frequency: holidays/special occasions only substance use type: does not use Exam Narrative Exam Narrative: Constitutional: mildly uncomfortable but [id number], pleasant, conversing normally HENT: head atraumatic, normocephalic normal inspection, mucous membranes moist Eyes: conjunctiva normal, sclera normal, pupils 3mm b/l Neck: no stridor, normal ROM, trachea midline Chest: normal inspection Resp: normal work of breathing, LCTAB Cardio: normal rate, normal rhythm, no murmur appreciated GI: abdomen soft, mild upper abd TTP, non-distended, no rebound or guarding, no McBPt TTP, neg murphys. Back: normal inspection, no rash Skin: warm, dry, normal color, no rash Neuro: alert, not altered, grossly non-focal, normal tone Ext: 1+ edema b/l LEs Psych: normal mood, normal affect, normal behavior
[2018-07-16 09:02] LABS: Lactate-non-spesis 1.4 mmol/l (0.6-1.4)
[2018-07-16 09:11] LABS: Abs Immature Grans 0.03 k/cumm (0.0-0.09); Absolute Basophil Count 0.01 k/cumm (0.0-0.2); Absolute Eosinophil Count 0.01 k/cumm (0.0-0.7); Absolute Lymphocyte Count 0.69 k/cumm (1.2-3.4); Absolute Monocyte Count 0.38 k/cumm (0.11-0.7); Absolute Neutrophil Count 7.91 k/cumm (1.2-6.7); Basophils % 0.1; Eosinophils % 0.1; HCT 35.3 % (36.0-46.0); HGB 11.3 g/dL (12.0-15.5); Immature Grans % 0.3; Lymphocytes % 7.6; Mean Corpuscular Hemoglobin 28.4 pg (27.0-33.0); Mean Corpuscular Volume 88.7 fL (80-95); Monocytes % 4.2; Neutrophils % 87.7; Platelet Count 218 x1000/uL (130-400); RBC 3.98 m/cumm (4.00-5.20); RBC Distribution Width 15.9 % (11.7-14.6); White Blood Cell Count 9.03 k/cumm (4.4-10.8)
[2018-07-16 09:39] LABS: ALT 16 U/L (12-78); AST 15 U/L (15-37); Alkaline Phosphatase 85 U/L (46-116); Anion Gap 7.1 mmol/L (3-11); BUN 27 mg/dL (7-18); Bilirubin, Total 0.3 mg/dL (0.2-1.0); CO2 29.9 mmol/L (21.0-32.0); CREATININE 1.62 mg/dL (0.55-1.02); Calcium 9.2 mg/dL (8.5-10.1); Chloride 100 mmol/L (98-107); Estimated GFR 30.98 (mL/min/1.73m2); Glucose 170 mg/dL (70-100); Potassium 4.4 mmol/L (3.5-5.1); Sodium 137 mmol/L (136-145); Total Protein 6.7 g/dL (6.4-8.2)
[2018-07-16 09:40] LABS: Troponin I < 0.02 ng/mL (0.00-0.06)
--- NOTE | 2018-07-16 09:43 | DI.CT_ITS ---
SYMPTOM/DIAGNOSIS: ABD PAIN, VOMITING ABDOMEN AND PELVIC CT: Comparison is made with 12/21/17. Oral contrast was administered. There is again noted to be a fatty containing abdominal wall hernia containing both colon and small bowel. The hernia does not appear to be causing obstruction. The distal small bowel does not contain oral contrast. There is mild dilatation of proximal small bowel, similar to the previous exam. There is a moderate quantity of stool. No inflammatory changes are seen involving the colon. Respiratory motion is noted at the lung bases. The uterus is unremarkable. There is a question of mild stranding around the bladder which is not definitely changed. There has been continued increase in severity of the L 4 compression fracture. IMPRESSION: No significant change in mild bowel dilatation and anterior abdominal wall hernia containing small bowel and colon.
[2018-07-16 09:48] LABS: Lipase 62 U/L (73-393)
[2018-07-16] MEDS: Ondansetron 4 MG/2 ML VIAL (10:00)
[2018-07-16] MEDS: Omnipaque 350 MG/ML 50 ML BTL PO (10:02)
[2018-07-16] MEDS: Breeza Beverage 473 ML BTL PO ×2 (10:03→10:04)
[2018-07-16 10:12] LABS: Bilirubin Negative (Negative); Blood Negative (Negative); Clarity Clear; Glucose Negative (Negative); Ketones Negative (Negative); Leukocyte Esterase Negative (Negative); Nitrite Negative (Negative); Urobilinogen 0.2 EU/dL (Up TO 0.2)
[2018-07-16] MEDS: Normal Saline 500 ML IV (12:17)
--- NOTE | 2018-07-16 13:01 | W.SURGCON ---
Date of service: 07/16/18 Time of Service: 13:01 Assessment and Plan (1) Incisional hernia of anterior abdominal wall with obstruction: Current visit: Yes Status: Acute A\\ Incisional hernia with bowel tunneling right and left. I am able to partially reduce the hernia. When I US the hernia there is bowel still tunneling to either side. Patient with increased pain that has not resolved. Also with N/V. I am concerned for obstruction with potential strangulation. Patient has had all her surgeries at [facility] and would like to go back to [facility]. I will let Dr. Zabala know. P\\ Transfer to [facility] for further care. History of Present Illness Chief Complaint: Abdominal pain, Nausea and Vomiting Narrative: Mrs. Aguiar is a pleasant 77-year-old female with a past medical history significant for ovarian cancer and kidney cancer. She has had a nephrectomy with removal of the ureter and part of her bladder. She has also had surgery for her ovarian cancer. Her last surgery was in 2017. She tells me that she has had a known ventral hernia but so far her surgeon down at [facility] has not wanted to repair it unless she became symptomatic. She tells me that she has intermittent episodes of abdominal pain nausea and vomiting that lasts about 5-6 hours and then goes away. Her bowel patterns are usually diarrhea. Once the diarrhea has gone on for 3 or 4 days she will take Imodium and then she will not have a bowel movement for a few days. The last time she took Imodium was 2 days ago and she has not had a bowel movement since then. She had dinner last night and then around 11:00 pm she started to have periumbilical pain followed by nausea and vomiting. She was brought to the ER by ambulance. She was given 10 mg of morphine in the ambulance and continues to complain of 7-8 out of 10 pain. She is also still nauseated and has had one bout of emesis which is bilious. CT scan shows dilation of small bowel going into a ventral hernia as well as some collapsed bowel that tunnels underneath the skin both to the left and right. The bowel is slightly more dilated than it was on 128 which is the last time she had a CT scan done down at [facility]. Review of Systems Constitutional Denies fever(s) and Denies weight loss Cardiovascular Denies chest pain, Denies chest pain with activity, Denies rapid heart rate, Denies dyspnea and Denies dyspnea on exertion Respiratory Denies dyspnea and Denies dyspnea on exertion Gastrointestinal Reports as per [facility] Genitourinary Reports system reviewed and no additional complaints, [facility] Musculoskeletal Reports system reviewed and no additional complaints, except as [facility] Neurologic Reports system reviewed and no additional complaints, except as [facility] Endocrine Reports system reviewed and no additional complaints, except as [facility] Hematologic/Lymphatic Reports system reviewed and no additional complaints, except [facility] Medical History H/O ovarian cancer (Acute) H/O primary malignant neoplasm of urinary bladder (Acute) H/O renal cell cancer (Acute) Incisional hernia (Acute) S/p nephrectomy (Acute) Surgical History Status post cataract extraction and insertion of intraocular lens of right eye (Chronic 04/23/18) Status post cataract extraction and insertion of intraocular lens of left eye (Chronic 04/09/18) H/O partial cystectomy (Acute) S/P hysterectomy with oophorectomy (Acute) Social History marital status: Smoking/Tobacco Use Status: Never alcohol intake: current alcohol intake frequency: holidays/special occasions only substance use type: does not use Exam Resp Effort & Inspection: normal respiratory effort Auscultation: clear to auscultation bilaterally Cardio Rate: regular rate Rhythm: regular rhythm GI Inspection: scar Palpation: soft, hernia other (incisional hernia- partial reduction, checcked with US and there is bowel that I can't reduce.) and tender (over the incisional hernia) Auscultation: hypoactive bowel sounds General: deferred Results Last Vital Signs Temp 98.6 F 07/16/18 08:58 Pulse 61 07/16/18 12:00 Resp 13 07/16/18 12:01 BP 134/56 L 07/16/18 12:00 Pulse Ox 99 07/16/18 12:01 Labs : 07/16/18 08:58 07/16/18 08:58 Laboratory Results - last 24 hr 07/16/18 07/16/18 07/16/18 08:58 08:58 08:58 WBC 9.03 RBC 3.98 L Hgb 11.3 L Hct 35.3 L MCV 88.7 MCH 28.4 MCHC 32.0 RDW 15.9 H Plt Count 218 MPV 10.0 Immature Gran % 0.3 Neutrophils % 87.7 Lymphocytes % 7.6 Monocytes % 4.2 Eosinophils % 0.1 Basophils % 0.1 Absolute Neutrophils 7.91 H Absolute Lymphocytes 0.69 L Absolute Monocytes 0.38 Absolute Eosinophils 0.01 Absolute Basophils 0.01 Sodium 137 Potassium 4.4 Chloride 100 Carbon Dioxide 29.9 Anion Gap 7.1 BUN 27 H Creatinine 1.62 H Estimated GFR/1.73 m2 30.98 Glucose 170 H Lactate 1.4 Calcium 9.2 Total Bilirubin 0.3 AST 15 ALT 16 Alkaline Phosphatase 85 Troponin I < 0.02 Total Protein 6.7 Albumin 3.0 L Lipase 62 L Urine Color Urine Clarity Urine pH Ur Specific [place] Urine Protein Urine Ketones Urine Blood Urine Nitrite Urine Bilirubin Urine Urobilinogen Ur Leukocyte Esterase Urine Glucose 07/16/18 10:05 WBC RBC Hgb Hct MCV MCH MCHC RDW Plt Count MPV Immature Gran % Neutrophils % Lymphocytes % Monocytes % Eosinophils % Basophils % Absolute Neutrophils Absolute Lymphocytes Absolute Monocytes Absolute Eosinophils Absolute Basophils Sodium Potassium Chloride Carbon Dioxide Anion Gap BUN Creatinine Estimated GFR/1.73 m2 Glucose Lactate Calcium Total Bilirubin AST ALT Alkaline Phosphatase Troponin I Total Protein Albumin Lipase Urine Color Yellow Urine Clarity Clear Urine pH 7.0 Ur Specific [place] 1.020 Urine Protein Negative Urine Ketones Negative Urine Blood Negative Urine Nitrite Negative Urine Bilirubin Negative Urine Urobilinogen 0.2 Ur Leukocyte Esterase Negative Urine Glucose Negative
--- NOTE | 2018-07-16 13:05 | SCONE_ITS ---
Date of service: 07/16/18 Time of Service: 13:01 Assessment and Plan (1) Incisional hernia of anterior abdominal wall with obstruction: Current visit: Yes Status: Acute A\\ Incisional hernia with bowel tunneling right and left. I am able to partially reduce the hernia. When I US the hernia there is bowel still tunneling to either side. Patient with increased pain that has not resolved. Also with N/V. I am concerned for obstruction with potential strangulation. Patient has had all her surgeries at [facility] and would like to go back to [facility]. I will let Dr. Zabala know. P\\ Transfer to [facility] for further care. History of Present Illness Chief Complaint: Abdominal pain, Nausea and Vomiting Narrative: Mrs. Aguiar is a pleasant 77-year-old female with a past medical history significant for ovarian cancer and kidney cancer. She has had a nephrectomy with removal of the ureter and part of her bladder. She has also had surgery for her ovarian cancer. Her last surgery was in 2017. She tells me that she has had a known ventral hernia but so far her surgeon down at [facility] has not wanted to repair it unless she became symptomatic. She tells me that she has intermittent episodes of abdominal pain nausea and vomiting that lasts about 5-6 hours and then goes away. Her bowel patterns are usually diarrhea. Once the diarrhea has gone on for 3 or 4 days she will take Imodium and then she will not have a bowel movement for a few days. The last time she took Imodium was 2 days ago and she has not had a bowel movement since then. She had dinner last night and then around 11:00 pm she started to have periumbilical pain followed by nausea and vomiting. She was brought to the ER by ambulance. She was given 10 mg of morphine in the ambulance and continues to complain of 7-8 out of 10 pain. She is also still nauseated and has had one bout of emesis which is bilious. CT scan shows dilation of small bowel going into a ventral hernia as well as some collapsed bowel that tunnels underneath the skin both to the left and right. The bowel is slightly more dilated than it was on 128 which is the last time she had a CT scan done down at [facility]. Review of Systems Constitutional Denies fever(s) and Denies weight loss Cardiovascular Denies chest pain, Denies chest pain with activity, Denies rapid heart rate, Denies dyspnea and Denies dyspnea on exertion Respiratory Denies dyspnea and Denies dyspnea on exertion Gastrointestinal Reports as per [facility] Genitourinary Reports system reviewed and no additional [facility], [facility] Musculoskeletal Reports system reviewed and no additional complaints, except [facility] Neurologic Reports system reviewed and no additional complaints, except [facility] Endocrine Reports system reviewed and no additional complaints, except [facility] Hematologic/Lymphatic Reports system reviewed and no additional complaints, [facility] Medical History H/O ovarian cancer (Acute) H/O primary malignant neoplasm of urinary bladder (Acute) H/O renal cell cancer (Acute) Incisional hernia (Acute) S/p nephrectomy (Acute) Surgical History Status post cataract extraction and insertion of intraocular lens of right eye (Chronic 04/23/18) Status post cataract extraction and insertion of intraocular lens of left eye (Chronic 04/09/18) H/O partial cystectomy (Acute) S/P hysterectomy with oophorectomy (Acute) Social History marital status: Smoking/Tobacco Use Status: Never alcohol intake: current alcohol intake frequency: holidays/special occasions only substance use type: does not use Exam Resp Effort & Inspection: normal respiratory effort Auscultation: clear to auscultation bilaterally Cardio Rate: regular rate Rhythm: regular rhythm GI Inspection: scar Palpation: soft, hernia other (incisional hernia- partial reduction, checcked with US and there is bowel that I can't reduce.) and tender (over the incisional hernia) Auscultation: hypoactive bowel sounds General: deferred Results Last Vital Signs Temp 98.6 F 07/16/18 08:58 Pulse 61 07/16/18 12:00 Resp 13 07/16/18 12:01 BP 134/56 L 07/16/18 12:00 Pulse Ox 99 07/16/18 12:01 Labs : 07/16/18 08:58 07/16/18 08:58 Laboratory Results - last 24 hr 07/16/18 07/16/18 07/16/18 08:58 08:58 08:58 WBC 9.03 RBC 3.98 L Hgb 11.3 L Hct 35.3 L MCV 88.7 MCH 28.4 MCHC 32.0 RDW 15.9 H Plt Count 218 MPV 10.0 Immature Gran % 0.3 Neutrophils % 87.7 Lymphocytes % 7.6 Monocytes % 4.2 Eosinophils % 0.1 Basophils % 0.1 Absolute Neutrophils 7.91 H Absolute Lymphocytes 0.69 L Absolute Monocytes 0.38 Absolute Eosinophils 0.01 Absolute Basophils 0.01 Sodium 137 Potassium 4.4 Chloride 100 Carbon Dioxide 29.9 Anion Gap 7.1 BUN 27 H Creatinine 1.62 H Estimated GFR/1.73 m2 30.98 Glucose 170 H Lactate 1.4 Calcium 9.2 Total Bilirubin 0.3 AST 15 ALT 16 Alkaline Phosphatase 85 Troponin I < 0.02 Total Protein 6.7 Albumin 3.0 L Lipase 62 L Urine Color Urine Clarity Urine pH Ur Specific [place] Urine Protein Urine Ketones Urine Blood Urine Nitrite Urine Bilirubin Urine Urobilinogen Ur Leukocyte Esterase Urine Glucose 07/16/18 10:05 WBC RBC Hgb Hct MCV MCH MCHC RDW Plt Count MPV Immature Gran % Neutrophils % Lymphocytes % Monocytes % Eosinophils % Basophils % Absolute Neutrophils Absolute Lymphocytes Absolute Monocytes Absolute Eosinophils Absolute Basophils Sodium Potassium Chloride Carbon Dioxide Anion Gap BUN Creatinine Estimated GFR/1.73 m2 Glucose Lactate Calcium Total Bilirubin AST ALT Alkaline Phosphatase Troponin I Total Protein Albumin Lipase Urine Color Yellow Urine Clarity Clear Urine pH 7.0 Ur Specific [place] 1.020 Urine Protein Negative Urine Ketones Negative Urine Blood Negative Urine Nitrite Negative Urine Bilirubin Negative Urine Urobilinogen 0.2 Ur Leukocyte Esterase Negative Urine Glucose Negative
== END 2018-07-16 15:18 ==
LOC: ER 10:21
PROVIDERS: Emergency Provider Student in an Organized Health Care Education/Training Program; PCP Family Medicine
DX: K46.0 Unspecified abdominal hernia with obstruction, without gangrene (principal); I10 Essential (primary) hypertension
CPT/HCPCS: 80053; 83690; 93005; 96361; 96374; 96375; 99253; 99283; 99285; 74176; 81003; 83605; 84484; 85025; 93010; 99284; J2250; J2405; Q9967

== ENCOUNTER → 2018-07-27 10:51 | Outpatient (BNVA) | payer MEDICARE, OTHER, SELFPAY | PROVIDERS: PCP Family Medicine; Referring Provider Family Medicine; Visit Provider Physical Therapy Assistant | DX: K43.0 Incisional hernia with obstruction, without gangrene (principal); Z48.89 Encounter for other specified surgical aftercare; I10 Essential (primary) hypertension | CPT/HCPCS: 99213 ==

== ENCOUNTER 2018-08-06 09:54 | Outpatient (CLI) | payer MEDICARE, OTHER, SELFPAY ==
[2018-08-06 11:22] LABS: PHOSPHORUS 3.7 mg/dL (2.6-4.7)
[2018-08-07 10:26] LABS: Parathyroid Hormone,Intact 38 pg/ml (19-88)
== END 2018-08-06 10:14 ==
PROVIDERS: PCP Family Medicine; Visit Provider Family Medicine
DX: N18.3 Chronic kidney disease, stage 3 (moderate) (principal); M85.88 Other specified disorders of bone density and structure, other site
CPT/HCPCS: 36415; 82306; 83970; 84100

== ENCOUNTER 2018-08-26 02:09 | Emergency (ER) | payer MEDICARE, OTHER, SELFPAY ==
--- NOTE | 2018-08-26 02:16 | DI.CT_ITS ---
SYMPTOM/DIAGNOSIS: MID ABD PAIN ABDOMEN AND PELVIC CT: CT scan of the abdomen and pelvis was performed without intravenous contrast material. Comparison is made with 07/16/18. Scarring or atelectasis is seen in the lung bases. There is a small hiatal hernia. Lack of IV contrast does limit evaluation of the abdominal and pelvic organs. The unenhanced liver, spleen, pancreas, gallbladder, bile ducts and adrenal glands are unremarkable. The patient is status post right nephrectomy. The left kidney shows no evidence of obstruction or nephrolithiasis. The urinary bladder is intact. Inflammatory stranding is seen around the urinary bladder and an inflammatory or infectious process cannot be excluded. The reproductive organs are unremarkable. There is atherosclerosis of the abdominal aorta but no aneurysmal dilatation is present. No significant abdominal or pelvic adenopathy, ascites or pneumoperitoneum is present. The patient is status post repair of the ventral hernia since 07/16/18. There are mildly dilated loops of small bowel, predominantly in the left abdomen. This may represent a focal ileus or obstruction. The remainder of the bowel is unremarkable. Degenerative changes are seen in the spine. There is an old compression deformity seen of the L 4 vertebral body which appears stable. IMPRESSION: Interval ventral hernia repair. Dilated loops of small bowel, predominantly in the left abdomen. This may represent a focal ileus or obstruction. Stranding around the urinary bladder. This may represent an infectious or inflammatory cystitis. Please correlate clinically.
[2018-08-26 02:18] VITALS: PULSE 66; RESP 17; TEMP 36.8; O2SAT 100
--- NOTE | 2018-08-26 02:19 | ED.GENADUL_ITS ---
Discharge Plan Disposition Patient Disposition: HOME Condition: Stable Discharge Details Chief Complaint: Abd Prob Clinical Impression: Abdominal pain Primary Care Provider: Dulce Hidalgo ED Provider: Jitendra Martin Home Meds and New Rx's Prescriptions: No Action oxycodone 5 mg capsule 5 mg PO Q6H RF: 0 cetirizine [Zyrtec] 10 mg tablet 10 mg PO DAILY PRNRF: 0 acetaminophen [Tylenol Extra Strength] 500 mg tablet 500 mg PO Q6H PRNRF: 0 simvastatin 10 MG tablet 10 mg PO DAILY RF: 0 atenolol 50 MG tablet 50 mg PO DAILY RF: 0 calcium carb and citrate-vitD3 [Citracal + D Slow Release] 1 EACH tablet extended release 1 tab PO DAILY RF: 0 hydrochlorothiazide 25 MG tablet 25 mg PO DAILY RF: 0 cyanocobalamin (vitamin B-12) [Vitamin B-12] 1,000 mcg Tablet 1,000 mcg PO DAILY RF: 0 Metamucil [facility] Fiber 3.4 gram/5.8 gram Powder 1 ea PO DAILY RF: 0 bisacodyl [Dulcolax (bisacodyl)] 5 mg Tablet,Delayed Release (Dr/Ec) 5 mg PO DAILY PRNRF: 0 magnesium oxide 400 mg Capsule 400 mg PO DAILY RF: 0 fluticasone propionate [Flonase Allergy Relief] 50 mcg/actuation spray,suspension 2 spray INTRANASAL DAILY PRNRF: 0 omeprazole 20 mg capsule,delayed release(DR/EC) 20 mg PO DAILY RF: 0 Xarelto 10 mg Tablet 10 mg PO DAILY RF: 0 Discharge Instructions Additional Instructions: Your lab work did not show any new concerning findings The cat scan could not exclude a small bowel obstruction though your symptoms did not seem to fit with this diagnosis. You chose to go home rather than be admitted for observation. 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 She was seen here in July and found to have incarcerated hernia and given she has had surgeries at [facility] transferred there. She had been doing well until around 11pm when she had central abdominal pain. She localizes it to the center of the umibilicus and has pain throughout the mid abodmen on exam without guarding. Her incisional scar from her hernia repair is well healed without erythema. Will obtain imaging to eval for sbo among other pathology and eval for pancreatitis and hepatitis and monitor. labs show no acute findings. Is now sleeping in no distress. awaiting imaging results pt remains without pain and has no tenderness now. Her CT shows possible ileus vs early obstruction can't be excluded, and stranding around urinary bladder, cystitis can't be excluded. She decnies any urinary symptoms so doubt cystiits. She states she has had 3 bowel movements over the past day without vomit so unlikely obstruction. After having informed decision making about observation admission she declined and would prefer to go home and return if she has worsening pain, vomit or decreased bowel movements. She will f/u with her pcp and return precautions given Differential Diagnosis pancreatitis, sbo, cholecystitis Medical Records Medical records reviewed: Yes I reviewed the patient's medical records. Imaging Data Radiologic Study: Attestation: I personally reviewed and interpreted this imaging study as follows: Imaging: CT Scan Radiologist's impression: IMPRESSION: 1. Borderline dilated small bowel in the left lower quadrant and pelvis, similar in appearance to previous study and could indicate focal ileus or element of obstruction. 2. Minimal stranding adjacent to the urinary bladder, cannot exclude urinary cystitis. Clinically correlate. Lab Data Lab results reviewed: Yes I reviewed the patient's lab results. HPI General Date/Time Provider Initiated Documentation: 08/26/18 02:12 . Limitations to Documentation: no limitations . Information obtained by: patient . History of Present Illness 77 year old F presents to the emergency department with the chief complaint of abdominal pain, described as moderate, with intensity rated at 6. Quality is described as stabbing, and is localized to the abdomen. Patient reports no radiation. Patient started experiencing this hour(s) (3) and it has been constant. No relieving factors improve symptom(s), No exacerbating factors reported . Patient did receive the following treatments prior to arrival, none Related Data Home Medications Medication Instructions Recorded Confirmed atenolol 50 mg PO DAILY 11/30/13 08/26/18 calcium carb and citrate-vitD3 1 tab PO DAILY 11/30/13 08/26/18 [Citracal + D Slow Release] simvastatin 10 mg PO DAILY 11/30/13 08/26/18 hydrochlorothiazide 25 mg PO DAILY 12/21/17 08/26/18 bisacodyl [Dulcolax (bisacodyl)] 5 mg PO DAILY PRN 04/04/18 08/26/18 cyanocobalamin (vitamin B-12) 1,000 mcg PO DAILY 04/04/18 08/26/18 [Vitamin B-12] magnesium oxide 400 mg PO DAILY 04/04/18 08/26/18 psyllium husk (aspartame) 1 ea PO DAILY 04/04/18 08/26/18 [Metamucil [facility] Fiber] oxycodone 5 mg capsule 5 mg PO Q6H cap 07/26/18 07/27/18 acetaminophen 500 mg tablet 500 mg PO Q6H PRN 07/27/18 08/26/18 cetirizine 10 mg tablet 10 mg PO DAILY PRN tab 07/27/18 08/26/18 fluticasone propionate 50 2 spray INTRANASAL DAILY PRN 07/27/18 08/26/18 mcg/actuation nasal spray,suspension omeprazole 20 mg capsule,delayed 20 mg PO DAILY 07/27/18 08/26/18 release rivaroxaban [Xarelto] 10 mg PO DAILY 08/26/18 08/26/18 Allergies Allergy/AdvReac Type Severity Reaction Status Date / Time Sulfa (Sulfonamide AdvReac Severe liver Verified 08/26/18 02:23 Antibiotics) damage ciprofloxacin [From Cipro] AdvReac Intermediate unknown Verified 08/26/18 02:23 glucosamine AdvReac Intermediate Nausea Verified 08/26/18 02:23 Epideral Dressing AdvReac Severe Blistering Uncoded 08/26/18 02:23 General SADIE: 3 Review of Systems Review of Systems All systems reviewed & are unremarkable except as noted in HPI and below Constitutional Denies chills, Denies fever(s) and Denies weakness ENT Denies change in voice Cardiovascular Denies chest pain and Denies dyspnea Respiratory Denies cough and Denies dyspnea Gastrointestinal Denies vomiting Genitourinary Denies dysuria Musculoskeletal Denies joint swelling Integumentary/Breasts Denies rash Neurologic Denies weakness Endocrine Denies cold intolerance PFSH Medical History Dehydration (Acute) IT band syndrome (Acute) Incisional hernia (Acute) Neutropenia (Acute) Actinic keratosis (Chronic) BRCA2 positive (Chronic) Benign essential tremor (Chronic) Breast cancer, stage 1 (Chronic) H/O ovarian cancer (Chronic) H/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) H/O renal cell cancer (Chronic) HTN (hypertension) (Chronic) Osteopenia (Chronic) Seborrheic keratoses (Chronic) S/p nephrectomy (Resolved 11/02/16) Ventral hernia (Resolved) Surgical History Status post cataract extraction and insertion of intraocular lens of right eye (Chronic 04/23/18) Status post cataract extraction and insertion of intraocular lens of left eye (Chronic 04/09/18) S/P recurrent ventral herniorrhaphy (Acute 07/17/18) H/O partial cystectomy (Resolved) History of appendectomy (Resolved) History of bowel resection (Resolved) S/P TKR (total knee replacement) (Resolved) S/P hysterectomy with oophorectomy (Resolved) Social History Smoking/Tobacco Use Status: Never Alcohol Intake: never Drug use: Never Substance use type: does not use Do you feel safe in your relationship?: Yes Additional Social history: unable to assess privately Exam Const General: no acute distress Orientation: alert HENMT Head: normal to inspection Ears: external ears normal General nose exam: external nose normal Mouth: moist mucous membranes Eyes General: appearance normal, both eyes and all related structures Neck Neck: normal visual inspection Resp Effort & Inspection: normal respiratory effort and able to speak in complete sentences Cardio Rate: regular rate GI Inspection: no abdominal wall ecchymosis Skin General skin exam: no rashes or lesions noted Neuro General: alert and oriented x3 Extrem General: normal to inspection Psych Mental Status: mental status grossly normal
[2018-08-26] MEDS: Normal Saline 1,000 ML 1000 ML IV (02:25)
[2018-08-26] MEDS: Ondansetron 4 MG/2 ML VIAL IVP (02:35)
[2018-08-26] MEDS: HYDROmorphone 2 MG/ML VIAL 1 MG IVP (02:40)
[2018-08-26 02:43] LABS: ALT 17 U/L (12-78); AST 17 U/L (15-37); Albumin 3.3 g/dL (3.4-5.0); Alkaline Phosphatase 99 U/L (46-116); Anion Gap 6.3 mmol/L (3-11); BUN 24 mg/dL (7-18); Bilirubin, Direct 0.11 mg/dL (0.00-0.20); Bilirubin, Total 0.3 mg/dL (0.2-1.0); CO2 28.7 mmol/L (21.0-32.0); CREATININE 1.37 mg/dL (0.55-1.02); Calcium 9.1 mg/dL (8.5-10.1); Chloride 99 mmol/L (98-107); Estimated GFR 37.59 (mL/min/1.73m2); Glucose 151 mg/dL (70-100); Lipase 84 U/L (73-393); Magnesium 1.9 mg/dL (1.8-2.4); Potassium 3.7 mmol/L (3.5-5.1); Sodium 134 mmol/L (136-145); Total Protein 6.9 g/dL (6.4-8.2)
[2018-08-26 02:57] LABS: PTT Activated 23.7 sec (21.0-31.4); Prothrombin Time 9.6 sec (9.3-11.0)
[2018-08-26 02:59] VITALS: BP 148/58; PULSE 61; TEMP 36.4; O2SAT 99
[2018-08-26 03:14] LABS: Abs Immature Grans 0.02 k/cumm (0.0-0.09); Absolute Basophil Count 0.01 k/cumm (0.0-0.2); Absolute Eosinophil Count 0.15 k/cumm (0.0-0.7); Absolute Lymphocyte Count 1.25 k/cumm (1.2-3.4); Absolute Monocyte Count 0.61 k/cumm (0.11-0.7); Basophils % 0.1; Eosinophils % 2.1; HCT 32.8 % (36.0-46.0); HGB 10.7 g/dL (12.0-15.5); Immature Grans % 0.3; Lymphocytes % 17.3; Mean Corp. HGB Concentration 32.6 g/dL (32.0-36.0); Mean Corpuscular Volume 88.9 fL (80-95); Mean Platelet Volume 10.6 fL (8.0-11.0); Monocytes % 8.4; Neutrophils % 71.8; Platelet Count 216 x1000/uL (130-400); RBC 3.69 m/cumm (4.00-5.20); White Blood Cell Count 7.24 k/cumm (4.4-10.8)
[2018-08-26 04:05] VITALS: BP 136/75; PULSE 61; RESP 19; TEMP 36.5; O2SAT 94
[2018-08-26 04:06] VITALS: BP 136/75; PULSE 61; RESP 19; TEMP 36.5; O2SAT 94
== END 2018-08-26 04:05 | disposition home or self-care (01) ==
PROVIDERS: Emergency Provider Emergency Medicine; PCP Family Medicine
DX: R10.9 Unspecified abdominal pain (principal); I10 Essential (primary) hypertension; Z79.01 Long term (current) use of anticoagulants
CPT/HCPCS: 36415; 80053; 80076; 83690; 93005; 96361; 96365; 96374; 96375; 99283; 99284; 99285; 74022; 74176; 83605; 83735; 85025; 85610; 85730; 93010; J2405

== ENCOUNTER 2018-08-26 07:58 | Emergency (ER) | payer MEDICARE, OTHER, SELFPAY ==
[2018-08-26 08:04] VITALS: BP 179/66; PULSE 67; RESP 20; TEMP 36.8; O2SAT 100
[2018-08-26] MEDS: HYDROmorphone 2 MG/ML VIAL 0.5 MG IVP (08:20)
--- NOTE | 2018-08-26 08:28 | DI.RAD_ITS ---
SYMPTOM/DIAGNOSIS: UPPER ABD PAIN, RECENT CT ACUTE ABDOMINAL SERIES: Comparison CT is of abdomen and pelvis dated 08/26/18. Heart size and pulmonary vasculature are within normal limits. No focal consolidating infiltrates, effusions or pneumothoraces are identified. The bowel gas pattern is nonspecific. No evidence of bowel obstruction, organomegaly or pneumoperitoneum is seen. Suture material is seen in the mid abdomen. Degenerative changes are seen in the spine. IMPRESSION: No evidence of an acute abdomen.
[2018-08-26] MEDS: Lactated Ringers 1,000 ML 125 ML IV (08:51)
[2018-08-26 09:08] LABS: Lactate-non-spesis 1.2 mmol/l (0.6-1.4)
[2018-08-26 09:10] LABS: Abs Immature Grans 0.02 k/cumm (0.0-0.09); Absolute Eosinophil Count 0.05 k/cumm (0.0-0.7); Absolute Lymphocyte Count 0.81 k/cumm (1.2-3.4); Absolute Monocyte Count 0.54 k/cumm (0.11-0.7); Absolute Neutrophil Count 4.71 k/cumm (1.2-6.7); Eosinophils % 0.8; HCT 32.1 % (36.0-46.0); HGB 10.4 g/dL (12.0-15.5); Immature Grans % 0.3; Lymphocytes % 13.2; Mean Corp. HGB Concentration 32.4 g/dL (32.0-36.0); Mean Corpuscular Hemoglobin 28.9 pg (27.0-33.0); Mean Corpuscular Volume 89.2 fL (80-95); Mean Platelet Volume 9.6 fL (8.0-11.0); Monocytes % 8.8; Neutrophils % 76.9; Platelet Count 205 x1000/uL (130-400); RBC Distribution Width 15.9 % (11.7-14.6); White Blood Cell Count 6.13 k/cumm (4.4-10.8)
[2018-08-26 09:25] LABS: ALT 18 U/L (12-78); AST 16 U/L (15-37); Albumin 3.1 g/dL (3.4-5.0); Alkaline Phosphatase 91 U/L (46-116); Anion Gap 4.9 mmol/L (3-11); BUN 22 mg/dL (7-18); Bilirubin, Total 0.4 mg/dL (0.2-1.0); CO2 30.1 mmol/L (21.0-32.0); CREATININE 1.26 mg/dL (0.55-1.02); Calcium 8.9 mg/dL (8.5-10.1); Chloride 101 mmol/L (98-107); Glucose 138 mg/dL (70-100); Lipase 59 U/L (73-393); Potassium 3.7 mmol/L (3.5-5.1); Sodium 136 mmol/L (136-145); Total Protein 6.5 g/dL (6.4-8.2)
--- NOTE | 2018-08-26 09:52 | ED.GENADUL_ITS ---
Discharge Plan Disposition Patient Disposition: HOME Discharge Details Chief Complaint: Abd Prob Clinical Impression: Abdominal pain Primary Care Provider: Dulce Hidalgo ED Provider: Amilcar Zabala Home Meds and New Rx's Prescriptions: Continued oxycodone 5 mg capsule 5 mg PO Q6H RF: 0 cetirizine [Zyrtec] 10 mg tablet 10 mg PO DAILY PRNRF: 0 acetaminophen [Tylenol Extra Strength] 500 mg tablet 500 mg PO Q6H PRNRF: 0 simvastatin 10 MG tablet 10 mg PO DAILY RF: 0 atenolol 50 MG tablet 50 mg PO DAILY RF: 0 calcium carb and citrate-vitD3 [Citracal + D Slow Release] 1 EACH tablet extended release 1 tab PO DAILY RF: 0 hydrochlorothiazide 25 MG tablet 25 mg PO DAILY RF: 0 cyanocobalamin (vitamin B-12) [Vitamin B-12] 1,000 mcg Tablet 1,000 mcg PO DAILY RF: 0 Metamucil [facility] Fiber 3.4 gram/5.8 gram Powder 1 ea PO DAILY RF: 0 bisacodyl [Dulcolax (bisacodyl)] 5 mg Tablet,Delayed Release (Dr/Ec) 5 mg PO DAILY PRNRF: 0 magnesium oxide 400 mg Capsule 400 mg PO DAILY RF: 0 fluticasone propionate [Flonase Allergy Relief] 50 mcg/actuation spray,suspension 2 spray INTRANASAL DAILY PRNRF: 0 omeprazole 20 mg capsule,delayed release(DR/EC) 20 mg PO DAILY RF: 0 Xarelto 10 mg Tablet 10 mg PO DAILY RF: 0 Discharge Instructions Instructions: Abdominal Pain (ED) Additional Instructions: Maintain a clear liquid diet tonight and tomorrow morning. You may advance her diet to bland foods tomorrow evening as tolerated. Please contact your primary care physician to arrange follow-up. Call on Monday. Return to the ER for any worsening or new concerning symptoms. Referrals: Dulce Hidalgo MD [Primary Care Provider] - Discharge Data Discharge Date/Time-TO BE ENTERED AT DEPARTURE: 08/26/18 13:11 Medical Decision Making 8:45 --77-year-old female with multiple medical problems including history of recent ventral hernia repair, returns this morning after being seen here in the emergency department last night for abdominal pain, with recurrent abdominal pain. Please see Dr. Martin's note from ED visit earlier today regarding results of diagnostic testing and course. Patient notes that shortly after leaving the emerge department she had recurrent discomfort in her upper abdomen that has persisted today. She is tender in her epigastric area. Interpretation of cT of the abdomen pelvis from earlier today was reviewed: IMPRESSION: 1. Borderline dilated small bowel in the left lower quadrant and pelvis, similar in appearance to previous study and could indicate focal ileus or element of obstruction. 2. Minimal stranding adjacent to the urinary bladder, cannot exclude urinary cystitis. Clinically correlate. 10:00 -- Spoke with Dr. Paz who will evaluate patient. -- Patient given GI cocktail. --Abdominal x-ray interpreted by radiology: IMPRESSION: 1. No bowel obstruction or free intraperitoneal air. 2. Minimal patchy densities within the right upper lung zone, nonspecific. Labs reviewed: nondiagnostic. 11:00 --patient was evaluated by Dr. Barrios who reviewed imaging and feels no acute surgical process present. On reassessment, patient was much improved. Dr. Barrios feels outpatient follow-up likely appropriate. Plan to observe the patient in the emergency department for short time longer to reassess abdomen and ensure no return of pain. 12:55 --patient reassessed after ED observation and she is feeling much better. Ambulating without any dysfunction. She is passing gas. Pt tolerating p.o. intake. Repeat abdominal exam benign. Plan is to have the patient maintain a clear liquid diet today. She will follow-up with her primary care physician. Disposition decision was made weighing the risks and benefits of hospitalization versus outpatient treatment, the risk for further decompensation, and the patient's wishes. The patient was stable and requested discharge. Prior to discharge, my usual and customary return precautions were reviewed with the patient - this included follow-up instructions and reason to return to the emergency department if condition worsens, does not improve as expected, or other new concerns arise. HPI General Mode of arrival: ambulatory . Date/Time Provider Initiated Documentation: 08/26/18 08:11 . Limitations to Documentation: no limitations . Information obtained by: patient . HPI Narrative: 77-year-old female with multiple medical problems, seen here earlier this morning in the emergency department for abdominal pain, had CT imaging, was discharged home after significantly improved, returns this morning with recurrent upper abdominal pain. Pain is moderate to severe. Pain waxes and wanes. Pain is localized to her upper abdomen. No associated vomiting. Patient denies chest pain or shortness of breath. Related Data Home Medications Medication Instructions Recorded Confirmed atenolol 50 mg PO DAILY 11/30/13 08/26/18 calcium carb and citrate-vitD3 1 tab PO DAILY 11/30/13 08/26/18 [Citracal + D Slow Release] simvastatin 10 mg PO DAILY 11/30/13 08/26/18 hydrochlorothiazide 25 mg PO DAILY 12/21/17 08/26/18 Metamucil [facility] Fiber 1 ea PO DAILY 04/04/18 08/26/18 bisacodyl [Dulcolax (bisacodyl)] 5 mg PO DAILY PRN 04/04/18 08/26/18 cyanocobalamin (vitamin B-12) 1,000 mcg PO DAILY 04/04/18 08/26/18 [Vitamin B-12] magnesium oxide 400 mg PO DAILY 04/04/18 08/26/18 oxycodone 5 mg capsule 5 mg PO Q6H cap 07/26/18 08/26/18 acetaminophen 500 mg tablet 500 mg PO Q6H PRN 07/27/18 08/26/18 cetirizine 10 mg tablet 10 mg PO DAILY PRN tab 07/27/18 08/26/18 fluticasone propionate 50 2 spray INTRANASAL DAILY PRN 07/27/18 08/26/18 mcg/actuation nasal spray,suspension omeprazole 20 mg capsule,delayed 20 mg PO DAILY 07/27/18 08/26/18 release Xarelto 10 mg PO DAILY 08/26/18 08/26/18 Allergies Allergy/AdvReac Type Severity Reaction Status Date / Time Sulfa (Sulfonamide AdvReac Severe liver Verified 08/26/18 08:07 Antibiotics) damage ciprofloxacin [From Cipro] AdvReac Intermediate unknown Verified 08/26/18 08:07 glucosamine AdvReac Intermediate Nausea Verified 08/26/18 08:07 Epideral Dressing AdvReac Severe Blistering Uncoded 08/26/18 08:07 General Stated Complaint: Abd Prob SADIE: 3 Review of Systems Constitutional Denies fever(s) Gastrointestinal Reports abdominal pain, Denies diarrhea and Denies vomiting Genitourinary Denies hematuria and Denies dysuria [facility] Medical History Dehydration (Acute) IT band syndrome (Acute) Incisional hernia (Acute) Neutropenia (Acute) Actinic keratosis (Chronic) BRCA2 positive (Chronic) Benign essential tremor (Chronic) Breast cancer, stage 1 (Chronic) H/O ovarian cancer (Chronic) H/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) H/O renal cell cancer (Chronic) HTN (hypertension) (Chronic) Osteopenia (Chronic) Seborrheic keratoses (Chronic) S/p nephrectomy (Resolved 11/02/16) Ventral hernia (Resolved) Surgical History Status post cataract extraction and insertion of intraocular lens of right eye (Chronic 04/23/18) Status post cataract extraction and insertion of intraocular lens of left eye (Chronic 04/09/18) S/P recurrent ventral herniorrhaphy (Acute 07/17/18) H/O partial cystectomy (Resolved) History of appendectomy (Resolved) History of bowel resection (Resolved) S/P TKR (total knee replacement) (Resolved) S/P hysterectomy with oophorectomy (Resolved) Social History Smoking/Tobacco Use Status: Never Alcohol Intake: never Drug use: Never Substance use type: does not use Do you feel safe at home: Yes Do you feel safe in your relationship?: Yes Additional Social history: unable to assess privately Exam Const General: cooperative and no acute distress HENMT Head: normocephalic and atraumatic Mouth: moist mucous membranes Eyes Conjunctivae: normal conjunctivae Sclera: normal sclerae Neck Neck: trachea midline and supple Resp Auscultation: clear to auscultation bilaterally, no rales, no rhonchi and no wheezes Cardio Jugular venous pressure: no JVD Rate: regular rate and not tachycardic Rhythm: regular rhythm GI Palpation: soft, not firm, no guarding, no masses, not rigid and tender in the epigastrum Skin General skin exam: no rashes or lesions noted and other (Ventral hernia wound appears to be healing well) Neuro General: alert, awake and tone normal Extrem General: no edema Course Vital Signs Temperature 36.8 C 08/26/18 08:04 Pulse 67 08/26/18 08:04 Respiratory Rate 20 08/26/18 08:04 Blood Pressure 179/66 H 08/26/18 08:04 Pulse Oximetry 100 08/26/18 08:04 Temperature 36.8 C 08/26/18 08:04 Temperature Source Temporal Artery Scan 08/26/18 08:04 Pulse 67 08/26/18 08:04 Respiratory Rate 20 08/26/18 08:04 Respiratory Effort Non-Labored 08/26/18 08:04 Blood Pressure 179/66 H 08/26/18 08:04 Blood Pressure Position Sitting 08/26/18 08:04 Pulse Oximetry 100 08/26/18 08:04 Oxygen Delivery Method Room Air 08/26/18 08:04 Oxygen Flow Rate 0 08/26/18 08:04 Pain Level 10 08/26/18 08:07 Lab/Test Results Lab/Test Results: Laboratory Tests Range/Units 08/26/18 08/26/18 08/26/18 09:02 09:02 09:02 WBC (4.4-10.8) k/cumm 6.13 RBC (4.00-5.20) m/cumm 3.60 L Hgb (12.0-15.5) g/dL 10.4 L Hct (36.0-46.0) % 32.1 L MCV (80-95) fL 89.2 MCH (27.0-33.0) pg 28.9 MCHC (32.0-36.0) g/dL 32.4 RDW (11.7-14.6) % 15.9 H Plt Count (130-400) x1000/uL 205 MPV (8.0-11.0) fL 9.6 Immature Gran % 0.3 Neutrophils % 76.9 Lymphocytes % 13.2 Monocytes % 8.8 Eosinophils % 0.8 Basophils % 0.0 Absolute Neutrophils (1.2-6.7) k/cumm 4.71 Absolute Lymphocytes (1.2-3.4) k/cumm 0.81 L Absolute Monocytes (0.11-0.7) k/cumm 0.54 Absolute Eosinophils (0.0-0.7) k/cumm 0.05 Absolute Basophils (0.0-0.2) k/cumm 0.00 Sodium (136-145) mmol/L 136 Potassium (3.5-5.1) mmol/L 3.7 Chloride (98-107) mmol/L 101 Carbon Dioxide (21.0-32.0) mmol/L 30.1 Anion Gap (3-11) mmol/L 4.9 BUN (7-18) mg/dL 22 H Creatinine (0.55-1.02) mg/dL 1.26 H Estimated GFR/1.73 m2 (mL/min/1.73m2) 41.40 Glucose (70-100) mg/dL 138 H Lactate (0.6-1.4) mmol/l 1.2 Calcium (8.5-10.1) mg/dL 8.9 Total Bilirubin (0.2-1.0) mg/dL 0.4 AST (15-37) U/L 16 ALT (12-78) U/L 18 Alkaline Phosphatase (46-116) U/L 91 Total Protein (6.4-8.2) g/dL 6.5 Albumin (3.4-5.0) g/dL 3.1 L Lipase (73-393) U/L 59 L
--- NOTE | 2018-08-26 09:56 | DI.VRAD_ITS ---
EXAM: XR Abdomen 2 Views with XR Chest 1 View EXAM DATE/TIME: 08/26/2018 8:29 AM CLINICAL HISTORY: 77 years old, female; Pain; Abdominal pain; Localized; Upper; Patient HX: Upper abd, recent CT TECHNIQUE: XR of the abdomen (2 views) with XR chest (1 view). COMPARISON: CT ABDOMEN PELVIS WO 08/26/2018 4:00 AM FINDINGS: Lungs: Minimal patchy densities in the right upper lung zone, nonspecific. Reticular markings within the lung bases, suspicious for interstitial disease. Clear left lung. Pleural space: Normal. No pneumothorax. Heart/Mediastinum: Normal. No cardiomegaly. Gastrointestinal tract: Normal bowel gas pattern. No radiographic evidence of obstruction. Intraperitoneal space: Multiple surgical clips within the mid abdomen. No free intraperitoneal air identified. Bones/joints: Degenerative changes throughout the thoracic and lumbar spine. Soft tissues: Unremarkable. IMPRESSION: 1. No bowel obstruction or free intraperitoneal air. 2. Minimal patchy densities within the right upper lung zone, nonspecific. Dictated and Authenticated by: Derrell Gotti MD. Ordering:JUAN Fitzgerald MD
[2018-08-26] MEDS: FAMOTIDINE 20 MG/50 ML BAG 200 MG IVPB (10:18)
--- NOTE | 2018-08-26 10:20 | NUR.NOTE ---
Nursing Note: Patient's IV infiltrated, IV discontinued and warm blanket wrapped around site.Slight swelling and coolness to the area around insertion site. notified
--- NOTE | 2018-08-26 11:06 | SCONE_ITS ---
Date of service: 08/26/18 Time of Service: 11:04 Assessment and Plan (1) Upper abdominal pain, unspecified: Current visit: Yes Status: Acute A\\ Upper abdominal pain now resolved Hx of GERD CT scan and ABDO XRays unremarkable P\\ No surgical issues that I can see at this time Recommend increaseing Omeprazole to BID TUMS or Mylanta Prn Follow up with PCP Discussed with Dr. Zabala and Patient History of Present Illness Chief Complaint: Upper abdominal pain Narrative: Mrs. Aguiar is a 77 year old female who came to the ER yesterday for upper abdominal pain which resolved. CT scan was negative for an acute proces. She was sent home and came back 4 hours later with return of her pain. Abdominal XRay was negative for free air or ileus/SBO. Patient was given Dilauded at 7:30 and a GI cocktail about 45 minutes ago. her pain is again resolved. She states it feels like gas pain . Had 3 BMs yesterday which were normal. No melena or hematochezia. She is status post [place] [facility] [place] Consults Consult date: 08/26/18 Requesting physician: Amilcar Zabala Review of Systems Cardiovascular Denies chest pain, Denies rapid heart rate and Denies edema Respiratory Denies chest congestion and Denies cough Gastrointestinal Reports as per HPI Genitourinary Denies urinary frequency and Denies dysuria [facility] Medical History Dehydration (Acute) IT band syndrome (Acute) Incisional hernia (Acute) Neutropenia (Acute) Actinic keratosis (Chronic) BRCA2 positive (Chronic) Benign essential tremor (Chronic) Breast cancer, stage 1 (Chronic) H/O ovarian cancer (Chronic) H/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) H/O renal cell cancer (Chronic) HTN (hypertension) (Chronic) Osteopenia (Chronic) Seborrheic keratoses (Chronic) S/p nephrectomy (Resolved 11/02/16) Ventral hernia (Resolved) Surgical History Status post cataract extraction and insertion of intraocular lens of right eye (Chronic 04/23/18) Status post cataract extraction and insertion of intraocular lens of left eye (Chronic 04/09/18) S/P recurrent ventral herniorrhaphy (Acute 07/17/18) H/O partial cystectomy (Resolved) History of appendectomy (Resolved) History of bowel resection (Resolved) S/P TKR (total knee replacement) (Resolved) S/P hysterectomy with oophorectomy (Resolved) Social History Smoking/Tobacco Use Status: Never Alcohol Intake: never Drug use: Never Substance use type: does not use Do you feel safe at home: Yes Do you feel safe in your relationship?: Yes Additional Social history: unable to assess privately Exam GI Inspection: scar (well healed) Palpation: soft and nontender Auscultation: normal bowel sounds Results Last Vital Signs Temp 98.2 F 08/26/18 08:04 Pulse 67 08/26/18 08:04 Resp 20 08/26/18 08:04 BP 179/66 H 08/26/18 08:04 Pulse Ox 100 08/26/18 08:04 Labs : 08/26/18 09:02 08/26/18 09:02 Laboratory Results - last 24 hr 08/26/18 08/26/18 08/26/18 09:02 09:02 09:02 WBC 6.13 RBC 3.60 L Hgb 10.4 L Hct 32.1 L MCV 89.2 MCH 28.9 MCHC 32.4 RDW 15.9 H Plt Count 205 MPV 9.6 Immature Gran % 0.3 Neutrophils % 76.9 Lymphocytes % 13.2 Monocytes % 8.8 Eosinophils % 0.8 Basophils % 0.0 Absolute Neutrophils 4.71 Absolute Lymphocytes 0.81 L Absolute Monocytes 0.54 Absolute Eosinophils 0.05 Absolute Basophils 0.00 Sodium 136 Potassium 3.7 Chloride 101 Carbon Dioxide 30.1 Anion Gap 4.9 BUN 22 H Creatinine 1.26 H Estimated GFR/1.73 m2 41.40 Glucose 138 H Lactate 1.2 Calcium 8.9 Total Bilirubin 0.4 AST 16 ALT 18 Alkaline Phosphatase 91 Total Protein 6.5 Albumin 3.1 L Lipase 59 L
== END 2018-08-26 13:11 | disposition home or self-care (01) ==
PROVIDERS: Emergency Provider Student in an Organized Health Care Education/Training Program; PCP Family Medicine
DX: R10.9 Unspecified abdominal pain (principal); I10 Essential (primary) hypertension; Z79.01 Long term (current) use of anticoagulants
CPT/HCPCS: 36415; 80053; 83690; 96361; 96365; 96375; 99283; 99284; 74022; 83605; 85025

== ENCOUNTER → 2018-09-21 10:21 | Outpatient (BNVA) | payer MEDICARE, OTHER, SELFPAY | PROVIDERS: PCP Family Medicine; Referring Provider Family Medicine; Visit Provider Physical Therapy Assistant | DX: D64.9 Anemia, unspecified (principal); I12.9 Hypertensive chronic kidney disease with stage 1 through stage 4 chronic kidney disease, or unspecified chronic kidney disease; N18.3 Chronic kidney disease, stage 3 (moderate) ==

== ENCOUNTER 2018-10-27 06:44 | Observation (INO) | payer MEDICARE, OTHER, SELFPAY ==
[2018-10-27] VITALS (8 sets, daily range): BP systolic 110–218; BP diastolic 64–83; PULSE 63–83; RESP 16–20; TEMP 36.5–36.7; O2SAT 95–100
[2018-10-27 07:20] LABS: Abs Immature Grans 0.03 k/cumm (0.0-0.09); Absolute Basophil Count 0.01 k/cumm (0.0-0.2); Absolute Eosinophil Count 0.05 k/cumm (0.0-0.7); Absolute Monocyte Count 0.57 k/cumm (0.11-0.7); Absolute Neutrophil Count 6.58 k/cumm (1.2-6.7); Basophils % 0.1; Eosinophils % 0.6; HCT 37.1 % (36.0-46.0); Immature Grans % 0.3; Lymphocytes % 19.9; Mean Corp. HGB Concentration 32.3 g/dL (32.0-36.0); Mean Corpuscular Hemoglobin 28.9 pg (27.0-33.0); Mean Corpuscular Volume 89.4 fL (80-95); Mean Platelet Volume 10.6 fL (8.0-11.0); Monocytes % 6.3; Neutrophils % 72.8; Platelet Count 227 x1000/uL (130-400); RBC 4.15 m/cumm (4.00-5.20); White Blood Cell Count 9.04 k/cumm (4.4-10.8)
[2018-10-27 07:32] LABS: ALT 18 U/L (12-78); AST 15 U/L (15-37); Albumin 3.3 g/dL (3.4-5.0); Alkaline Phosphatase 115 U/L (46-116); Anion Gap 7.1 mmol/L (3-11); BUN 31 mg/dL (7-18); Bilirubin, Total 0.3 mg/dL (0.2-1.0); CO2 30.9 mmol/L (21.0-32.0); CREATININE 1.69 mg/dL (0.55-1.02); Calcium 9.5 mg/dL (8.5-10.1); Chloride 100 mmol/L (98-107); Glucose 168 mg/dL (70-100); Potassium 3.8 mmol/L (3.5-5.1); Sodium 138 mmol/L (136-145); Total Protein 7.4 g/dL (6.4-8.2)
[2018-10-27] MEDS: Ondansetron 4 MG/2 ML VIAL IVP (07:34)
[2018-10-27] MEDS: Normal Saline 1,000 ML 1000 ML IV (07:34)
--- NOTE | 2018-10-27 08:22 | DI.CT_ITS ---
SYMPTOM/DIAGNOSIS: EPIGASTRIC AND PERIUMBILICAL PAIN ABDOMEN AND PELVIC CT: Comparison is made with 08/26/18. Images were performed from the lung bases through the ischial tuberosities without IV and followed by oral contrast. The oral contrast is seen within the stomach and proximal to mid small bowel. There is mild dilatation of loops of small bowel proximally with some decreased caliber distal small bowel. Suture material is noted in the anterior mid abdomen as well as in the right mid abdomen. The colon shows a normal quantity of stool. There is no ascites. There is again soft tissue thickening in the midline of the abdomen at the level of the umbilicus, presumably post surgical. The heart appears enlarged. The lungs show mild fibrotic changes. The liver, gallbladder, spleen, pancreas and adrenals appear normal. 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 There is no left hydronephrosis. The aorta is normal in diameter. The bladder and uterus are unremarkable. There is a stable moderate compression fracture of L 4. IMPRESSION: Dilatation of proximal and mid small bowel suspicious for a partial small bowel obstruction.
[2018-10-27 08:24] LABS: Lipase 72 U/L (73-393); Magnesium 2.1 mg/dL (1.8-2.4)
--- NOTE | 2018-10-27 08:24 | W.ED.GENAD ---
Discharge Plan Disposition Patient Disposition: [facility] INPATIENT Condition: Stable Discharge Details Chief Complaint: Abd Prob Clinical Impression: Intractable abdominal pain, Intractable nausea and vomiting, Small bowel obstruction, History of ventral hernia repair Admit Date/Time: 10/27/18 11:41 Admit Provider: Isidro Juarez Attending Provider: Isidro Juarez Primary Care Provider: Dulce Hidalgo ED Provider: Latoya Cuello Discharge Data Discharge Date/Time-TO BE ENTERED AT DEPARTURE: 10/27/18 12:22 Medical Decision Making 77-year-old female with a history of GERD, bladder, ovarian, renal and breast cancer who presents with constant twisting periumbilical abdominal pain radiating to her back and vomiting 4 times since last night. She has had similar pain occurring 2-3 times over the past few months. She was seen here 2 months ago for similar type pain and had a CT abdomen which was evaluated by surgery and read as negative. She was told likely her pain was due to gastritis. She had ventral hernia repair at [facility] in July 2018. Her abdomen is soft and mildly tender in the left upper quadrant, right upper quadrant, epigastrium and periumbilical region. No rigidity or guarding. She is afebrile and appears nontoxic. Differential diagnosis includes gastritis, GERD, cholecystitis, diverticulitis, SBO, ACS. Description of pain does not appear consistent with ruptured AAA. Patient has a history of right nephrectomy so we will not obtain CT with IV contrast which will limit evaluation of aorta, but will proceed with CT abdomen and pelvis with oral contrast. Labs ordered on arrival and unremarkable. Will add EKG, troponin, lipase considering patient's age and complaint of epigastric pain. Will give a dose of morphine and Compazine and reassess. 1035 --CT reviewed and notes inflammatory changes and subcutaneous fat at hernia site. Patient has a history of mesh with hernia repair. Also noted multiple loops of dilated bowel which may represent obstruction or ileus. Also noted opacities in the right middle lobe and lingula which may be atelectasis or pneumonia. Patient has no fever, complaint of shortness of breath or cough with normal vitals I do not suspect pneumonia. Patient is complaining of return of pain and nausea. She is noted to be belching. Case discussed with surgery who will review CT. Recommends GI cocktail and to reassess. If patient still with symptoms, will admit for observation. Will give Pepcid, Reglan, GI cocktail reassess. 1130 --patient is no better after meds. Reassessment of abdomen soft but nontender in the epigastrium and periumbilical region. Discussed with Dr. Juarez -accepts patient for admission for observation and serial abdominal exams. Medical Records Medical records reviewed: Yes I reviewed the patient's medical records. Imaging Data Radiologic Study: Radiologist's impression: CT Abdomen and Pelvis Without Contrast EXAM DATE/TIME: 10/27/2018 8:24 AM FINDINGS: Lungs: Opacities in the right middle lobe and lingula and both lower lobes may represent atelectasis or pneumonia.. Mediastinum: Small hiatal hernia ABDOMEN: Liver: Normal. No mass. Gallbladder and bile ducts: Normal. No calcified stones. No ductal dilation. Pancreas: Normal. No ductal dilation. Spleen: Normal. No splenomegaly. Adrenals: Normal. No mass. Kidneys and ureters: Absence of the right kidney Stomach and bowel: Multiple loops of dilated bowel with air contrast levels may represent obstruction or ileus. More distally the small bowel tapers. (2:65). Appendix: No evidence of appendicitis. PELVIS: Bladder: Unremarkable as visualized. Reproductive: Unremarkable as visualized. ABDOMEN and PELVIS: Intraperitoneal space: Surgical clips in the anterior abdomen Bones/joints: Compression fracture of L4 is stable. Soft tissues: Anterior abdominal wall thickening in the abdomen measures 2.4 cm and was present on the prior study.. This may reflect edema, hemorrhage, or infection. There are adjacent inflammatory changes in the subcutaneous fat. Vasculature: Normal. No abdominal aortic aneurysm. Lymph nodes: Normal. No enlarged lymph nodes. IMPRESSION: 1. Opacities in the right middle lobe and lingula and both lower lobes may represent atelectasis or pneumonia.. 2. Anterior abdominal wall thickening in the abdomen measures 2.4 cm and was present on the prior study.. This may reflect edema, hemorrhage, or infection. There are adjacent inflammatory changes in the subcutaneous fat. 3. Multiple loops of dilated bowel with air contrast levels may represent obstruction or ileus. More distally the small bowel tapers. (2:65). Lab Data Lab results reviewed: Yes I reviewed the patient's lab results. Laboratory Tests Range/Units 05/18/19 05/18/19 05/18/19 07:15 07:15 07:15 WBC (4.4-10.8) k/cumm 9.04 RBC (4.00-5.20) m/cumm 4.15 Hgb (12.0-15.5) g/dL 12.0 Hct (36.0-46.0) % 37.1 MCV (80-95) fL 89.4 MCH (27.0-33.0) pg 28.9 MCHC (32.0-36.0) g/dL 32.3 RDW (11.7-14.6) % 16.0 H Plt Count (130-400) x1000/uL 227 MPV (8.0-11.0) fL 10.6 Immature Gran % 0.3 Neutrophils % 72.8 Lymphocytes % 19.9 Monocytes % 6.3 Eosinophils % 0.6 Basophils % 0.1 Absolute Neutrophils (1.2-6.7) k/cumm 6.58 Absolute Lymphocytes (1.2-3.4) k/cumm 1.80 Absolute Monocytes (0.11-0.7) k/cumm 0.57 Absolute Eosinophils (0.0-0.7) k/cumm 0.05 Absolute Basophils (0.0-0.2) k/cumm 0.01 Sodium (136-145) mmol/L 138 Potassium (3.5-5.1) mmol/L 3.8 Chloride (98-107) mmol/L 100 Carbon Dioxide (21.0-32.0) mmol/L 30.9 Anion Gap (3-11) mmol/L 7.1 BUN (7-18) mg/dL 31 H Creatinine (0.55-1.02) mg/dL 1.69 H Estimated GFR/1.73 m2 (mL/min/1.73m2) 29.50 Glucose (70-100) mg/dL 168 H Calcium (8.5-10.1) mg/dL 9.5 Magnesium (1.8-2.4) mg/dL 2.1 Total Bilirubin (0.2-1.0) mg/dL 0.3 AST (15-37) U/L 15 ALT (12-78) U/L 18 Alkaline Phosphatase (46-116) U/L 115 Troponin I (0.00-0.06) ng/mL < 0.02 Total Protein (6.4-8.2) g/dL 7.4 Albumin (3.4-5.0) g/dL 3.3 L Lipase (73-393) U/L 72 L Urine Color (Yellow) Urine Clarity Urine pH (5-8) Ur Specific [place] (1.005-1.025) Urine Protein (Negative) mg/dL Urine Ketones (Negative) mg/dL Urine Blood (Negative) Urine Nitrite (Negative) Urine Bilirubin (Negative) Urine Urobilinogen (Up TO 0.2) EU/dL Ur Leukocyte Esterase (Negative) Urine Glucose (Negative) mg/dL Range/Units 10/27/18 09:40 WBC (4.4-10.8) k/cumm RBC (4.00-5.20) m/cumm Hgb (12.0-15.5) g/dL Hct (36.0-46.0) % MCV (80-95) fL MCH (27.0-33.0) pg MCHC (32.0-36.0) g/dL RDW (11.7-14.6) % Plt Count (130-400) x1000/uL MPV (8.0-11.0) fL Immature Gran % Neutrophils % Lymphocytes % Monocytes % Eosinophils % Basophils % Absolute Neutrophils (1.2-6.7) k/cumm Absolute Lymphocytes (1.2-3.4) k/cumm Absolute Monocytes (0.11-0.7) k/cumm Absolute Eosinophils (0.0-0.7) k/cumm Absolute Basophils (0.0-0.2) k/cumm Sodium (136-145) mmol/L Potassium (3.5-5.1) mmol/L Chloride (98-107) mmol/L Carbon Dioxide (21.0-32.0) mmol/L Anion Gap (3-11) mmol/L BUN (7-18) mg/dL Creatinine (0.55-1.02) mg/dL Estimated GFR/1.73 m2 (mL/min/1.73m2) Glucose (70-100) mg/dL Calcium (8.5-10.1) mg/dL Magnesium (1.8-2.4) mg/dL Total Bilirubin (0.2-1.0) mg/dL AST (15-37) U/L ALT (12-78) U/L Alkaline Phosphatase (46-116) U/L Troponin I (0.00-0.06) ng/mL Total Protein (6.4-8.2) g/dL Albumin (3.4-5.0) g/dL Lipase (73-393) U/L Urine Color (Yellow) Yellow Urine Clarity Clear Urine pH (5-8) 7.0 Ur Specific [place] (1.005-1.025) 1.020 Urine Protein (Negative) mg/dL Negative Urine Ketones (Negative) mg/dL Negative Urine Blood (Negative) Negative Urine Nitrite (Negative) Negative Urine Bilirubin (Negative) Negative Urine Urobilinogen (Up TO 0.2) EU/dL 0.2 Ur Leukocyte Esterase (Negative) Negative Urine Glucose (Negative) mg/dL Negative ECG Data Attestation: I personally reviewed and interpreted this ECG (s) as follows: Interpretation: Rate of 61, sinus, no acute ST elevation or depression. QTc 415. QRS 96. HPI General Mode of arrival: ambulatory. Date/Time Provider Initiated Documentation: 10/27/18 07:57. Limitations to Documentation: no limitations. Information obtained by: patient. HPI Narrative: Patient is a 77-year-old female with a history of GERD, bladder, ovarian, breast, renal cancer, appendectomy, hysterectomy, ventral hernia repair in July 2018 who presents with periumbilical abdominal pain since 10 PM last night. Patient was seen here 2 months ago for similar type pain and had a CT abdomen and pelvis which was negative. She states she has had similar pain since then approximately 2-3 times including today. She describes the pain as constant, twisting, radiating to her back. States the pain is currently 10/10. She states she thinks she can attribute the pain to her diet and states that it is worse with lettuce, broccoli and knots. She denies any relief with Mylanta or MiraLAX. She states she has vomited 4 times since last night which mainly with green or bile. She states she usually has vomiting when she has these episodes of pain. She had a colonoscopy and EGD in 2011. Her EGD was negative and she states her colonoscopy noted a precancerous polyp which was removed. She states she is scheduled for her next colonoscopy next month. She states her last bowel movement was last night and within normal limits without bleeding. She states she traveled to [place] last week but denies any known sick contacts or recent antibiotics. She denies fever, chest pain, shortness of breath or urinary symptoms. Related Data Home Medications Medication Instructions Recorded Confirmed atenolol 50 mg PO DAILY 11/30/13 10/27/18 calcium carb and citrate-vitD3 1 tab PO DAILY 11/30/13 10/27/18 [Citracal + D Slow Release] simvastatin 10 mg PO DAILY 11/30/13 10/27/18 hydrochlorothiazide 25 mg PO DAILY 12/21/17 10/27/18 bisacodyl [Dulcolax (bisacodyl)] 5 mg PO DAILY PRN 04/04/18 10/27/18 cyanocobalamin (vitamin B-12) 1,000 mcg PO DAILY 04/04/18 10/27/18 [Vitamin B-12] magnesium oxide 400 mg PO DAILY 04/04/18 10/27/18 cetirizine 10 mg tablet 10 mg PO DAILY PRN tab 07/27/18 10/27/18 fluticasone propionate 50 2 spray INTRANASAL DAILY PRN 07/27/18 10/27/18 mcg/actuation nasal spray,suspension Xarelto 10 mg PO DAILY 08/26/18 10/27/18 acetaminophen 500 mg tablet 500 mg PO PRN tab 09/21/18 10/27/18 acidophilus 100 million 1 cap PO DAILY cap 09/21/18 10/27/18 cell-pectin, citrus 10 mg capsule aluminum-mag hydroxide-simethicone 10 ml PO QHS ml 09/21/18 10/27/18 200 mg-200 mg-20 mg/5 mL oral susp omeprazole 20 mg capsule,delayed 20 mg PO BID cap 09/21/18 10/27/18 release oxycodone 5 mg capsule 5 mg PO DAILY PRN 09/21/18 10/27/18 polyethylene glycol 3350 17 17 gm PO DAILY 09/21/18 10/27/18 gram/dose oral powder Allergies Allergy/AdvReac Type Severity Reaction Status Date / Time latex Allergy Mild Verified 10/27/18 06:58 Sulfa (Sulfonamide AdvReac Severe liver Verified 10/27/18 06:58 Antibiotics) damage ciprofloxacin [From Cipro] AdvReac Intermediate unknown Verified 10/27/18 06:58 glucosamine AdvReac Intermediate Nausea Verified 10/27/18 06:58 glue on bandaids Allergy Mild rash Uncoded 10/27/18 06:58 Epideral Dressing AdvReac Severe Blistering Uncoded 10/27/18 06:58 General Stated Complaint: Abd Prob SADIE: 3 Review of Systems Review of Systems All systems reviewed & are unremarkable except as noted in HPI and below Constitutional Reports as per HPI, Denies chills and Denies fever(s) Eyes Denies blurry vision ENT Denies dizziness, Denies sore throat and Denies throat swelling Cardiovascular Denies chest pain and Denies dyspnea Respiratory Denies cough and Denies dyspnea Gastrointestinal Reports abdominal pain, Denies diarrhea and Reports vomiting Genitourinary Denies hematuria and Denies dysuria Musculoskeletal Denies back pain and Denies numbness Integumentary/Breasts Denies lesions and Denies rash Neurologic Denies dizziness, Denies focal weakness and Denies numbness Allergic/Immunologic Denies throat swelling [facility] Medical History Upper abdominal pain, unspecified (Acute) Incisional hernia of anterior abdominal wall with obstruction (Acute) Actinic keratosis (Chronic) Anemia (Chronic) BRCA2 positive (Chronic) Benign essential tremor (Chronic) Breast cancer, stage 1 (Chronic) Dehydration (Chronic) GERD (gastroesophageal reflux disease) (Chronic) H/O ovarian cancer (Chronic) H/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) H/O renal cell cancer (Chronic) HTN (hypertension) (Chronic) IT band syndrome (Chronic) Neutropenia (Chronic) Obesity (Chronic) Osteopenia (Chronic) Pulmonary embolism (Chronic) Seborrheic keratoses (Chronic) Stage 3 chronic kidney disease (Chronic) Incisional hernia (Resolved) S/p nephrectomy (Resolved 11/02/16) Ventral hernia (Resolved) Surgical History Status post cataract extraction and insertion of intraocular lens of right eye (Chronic 04/23/18) Status post cataract extraction and insertion of intraocular lens of left eye (Chronic 04/09/18) H/O right nephrectomy (Acute) S/P recurrent ventral herniorrhaphy (Acute 07/17/18) H/O partial cystectomy (Resolved) History of appendectomy (Resolved) History of bowel resection (Resolved) S/P TKR (total knee replacement) (Resolved) S/P hysterectomy with oophorectomy (Resolved) Social History Smoking/Tobacco Use Status: Never Alcohol Intake: never Drug use: Never Substance use type: does not use Do you feel safe at home: Yes Do you feel safe in your relationship?: Yes Additional Social history: unable to assess privately Exam Const General: cooperative, healthy appearing and no acute distress HENMT Head: normal to inspection Face and sinus: normal facial exam Eyes General: appearance normal, both eyes and all related structures Pupils: PERRL EOM: EOM intact bilaterally Neck Neck: normal visual inspection and No submandibular swelling Lymphatic: no lymphadenopathy noted Chest Chest: normal inspection of the chest and no tenderness Resp Effort & Inspection: normal respiratory effort and able to speak in complete sentences Auscultation: clear to auscultation bilaterally Cardio Rate: regular rate Rhythm: regular rhythm GI Inspection: normal to inspection and scar (Midline abdomen above the umbilicus, vertical, linear, no signs of infectio) Palpation: soft, not firm, no guarding, not rigid and tender in the epigastrum, in the LUQ, in the RUQ and periumbilically Auscultation: normal bowel sounds Skin General skin exam: no rashes or lesions noted Neuro General: alert, awake and oriented x3 Cognition: normal cognition Speech: speech normal Motor: muscle tone normal throughout Sensory Exam: no sensory deficits noted Extrem General: normal to inspection, full ROM and no edema Psych Appearance: grossly normal Mental Status: mental status grossly normal Speech and Movement: speech and movement normal Affect: normal affect Course Vital Signs Temperature 97.7 F 10/27/18 06:53 Pulse 75 10/27/18 06:53 Respiratory Rate 16 10/27/18 06:53 Blood Pressure 218/67 H 10/27/18 06:53 Pulse Oximetry 98 10/27/18 06:53 Temperature 97.7 F 10/27/18 06:53 Temperature Source Skin 10/27/18 06:53 Pulse 75 10/27/18 06:53 Respiratory Rate 16 10/27/18 06:53 Respiratory Effort Non-Labored 10/27/18 06:56 Blood Pressure 218/67 H 10/27/18 06:53 Pulse Oximetry 98 10/27/18 06:53 Oxygen Delivery Method Room Air 10/27/18 06:53 Oxygen Flow Rate 0 10/27/18 06:53 Pain Level 10 10/27/18 07:01 Lab/Test Results Lab/Test Results: Laboratory Tests Range/Units 10/27/18 10/27/18 07:15 07:15 WBC (4.4-10.8) k/cumm 9.04 RBC (4.00-5.20) m/cumm 4.15 Hgb (12.0-15.5) g/dL 12.0 Hct (36.0-46.0) % 37.1 MCV (80-95) fL 89.4 MCH (27.0-33.0) pg 28.9 MCHC (32.0-36.0) g/dL 32.3 RDW (11.7-14.6) % 16.0 H Plt Count (130-400) x1000/uL 227 MPV (8.0-11.0) fL 10.6 Immature Gran % 0.3 Neutrophils % 72.8 Lymphocytes % 19.9 Monocytes % 6.3 Eosinophils % 0.6 Basophils % 0.1 Absolute Neutrophils (1.2-6.7) k/cumm 6.58 Absolute Lymphocytes (1.2-3.4) k/cumm 1.80 Absolute Monocytes (0.11-0.7) k/cumm 0.57 Absolute Eosinophils (0.0-0.7) k/cumm 0.05 Absolute Basophils (0.0-0.2) k/cumm 0.01 Sodium (136-145) mmol/L 138 Potassium (3.5-5.1) mmol/L 3.8 Chloride (98-107) mmol/L 100 Carbon Dioxide (21.0-32.0) mmol/L 30.9 Anion Gap (3-11) mmol/L 7.1 BUN (7-18) mg/dL 31 H Creatinine (0.55-1.02) mg/dL 1.69 H Estimated GFR/1.73 m2 (mL/min/1.73m2) 29.50 Glucose (70-100) mg/dL 168 H Calcium (8.5-10.1) mg/dL 9.5 Total Bilirubin (0.2-1.0) mg/dL 0.3 AST (15-37) U/L 15 ALT (12-78) U/L 18 Alkaline Phosphatase (46-116) U/L 115 Total Protein (6.4-8.2) g/dL 7.4 Albumin (3.4-5.0) g/dL 3.3 L
[2018-10-27 08:38] LABS: Troponin I < 0.02 ng/mL (0.00-0.06)
[2018-10-27] MEDS: Prochlorperazine 10 MG/2 ML VIAL IVP (08:43)
[2018-10-27 09:45] LABS: Bilirubin Negative (Negative); Blood Negative (Negative); Clarity Clear; Glucose Negative (Negative); Ketones Negative (Negative); Leukocyte Esterase Negative (Negative); Nitrite Negative (Negative); Urobilinogen 0.2 EU/dL (Up TO 0.2)
[2018-10-27] MEDS: Breeza Beverage 473 ML BTL PO (10:19)
[2018-10-27] MEDS: Omnipaque 350 MG/ML 50 ML BTL PO (10:20)
--- NOTE | 2018-10-27 10:33 | DI.VRAD_ITS ---
EXAM: CT Abdomen and Pelvis Without Contrast EXAM DATE/TIME: 10/27/2018 8:24 AM CLINICAL HISTORY: 77 years old, female; Abdominal pain TECHNIQUE: Imaging protocol: Axial computed tomography images of the abdomen and pelvis without contrast. Coronal and sagittal reformatted images were created and reviewed. COMPARISON: CT ABDOMEN PELVIS WO 08/26/2018 4:00 AM FINDINGS: Lungs: Opacities in the right middle lobe and lingula and both lower lobes may represent atelectasis or pneumonia.. Mediastinum: Small hiatal hernia ABDOMEN: Liver: Normal. No mass. Gallbladder and bile ducts: Normal. No calcified stones. No ductal dilation. Pancreas: Normal. No ductal dilation. Spleen: Normal. No splenomegaly. Adrenals: Normal. No mass. Kidneys and ureters: Absence of the right kidney Stomach and bowel: Multiple loops of dilated bowel with air contrast levels may represent obstruction or ileus. More distally the small bowel tapers. (2:65). Appendix: No evidence of appendicitis. PELVIS: Bladder: Unremarkable as visualized. Reproductive: Unremarkable as visualized. ABDOMEN and PELVIS: Intraperitoneal space: Surgical clips in the anterior abdomen Bones/joints: Compression fracture of L4 is stable. Soft tissues: Anterior abdominal wall thickening in the abdomen measures 2.4 cm and was present on the prior study.. This may reflect edema, hemorrhage, or infection. There are adjacent inflammatory changes in the subcutaneous fat. Vasculature: Normal. No abdominal aortic aneurysm. Lymph nodes: Normal. No enlarged lymph nodes. IMPRESSION: 1. Opacities in the right middle lobe and lingula and both lower lobes may represent atelectasis or pneumonia.. 2. Anterior abdominal wall thickening in the abdomen measures 2.4 cm and was present on the prior study.. This may reflect edema, hemorrhage, or infection. There are adjacent inflammatory changes in the subcutaneous fat. 3. Multiple loops of dilated bowel with air contrast levels may represent obstruction or ileus. More distally the small bowel tapers. (2:65). Dictated and Authenticated by: Janelle Deleon MD. Ordering:DIEGO Klein MD
[2018-10-27] MEDS: Metoclopramide 10 MG/2 ML VIAL IM (10:45)
[2018-10-27] MEDS: FAMOTIDINE 20 MG/50 ML BAG 200 MG IVPB (10:47)
[2018-10-27] MEDS: Normal Saline Flush 10 ML SYR IVP ×3 (10:51→20:40)
--- NOTE | 2018-10-27 14:15 | HPE_ITS ---
Date of service: 10/27/18 Time of Service: 14:15 Assessment and Plan (1) Upper abdominal pain, unspecified: Current visit: No Status: Acute Abdominal pain in epigastrium and LUQ on palpation. Markedly improved at this time per patient. Differential diagnosis - gastroenteritis, ileus, SBO. Patient appears dehydrated with increased H/H and creatinine compared to labs in August 2018. IVF ordered. NPO except po meds with sips/ ice chips for bowel rest. Follow-up AXR in am to evaluate bowel gas pattern and progression of oral contrast. Follow-up labs in am. (2) Nausea and vomiting: Current visit: Yes Status: Acute Symptoms resolved at this time. As above. History of Present Illness Chief Complaint: Abdominal pain, nausea and vomiting Narrative: 77 y/o female admitted for observation through the ED with c/o epigastric to mid-abdominal pain, nausea, and vomiting since ~ 10pm last night. Despite being medicated in the ED, per pain had persisted and she was therefore admitted for observation. Patient notes that her pain and nausea/vomiting have subsided at this time. She last had a regular BM yesterday. She has not had any bowel movement or flatus today. She had similar symptoms in August 2018 and was evaluated in the ED by General Surgery and discharged home. She is scheduled to have a colonoscopy in [place] next month. She had an EGD years ago which was reportedly unremarkable although she does take Prilosec on a regular basis. CT abd/pelvis was obtained in the ED with oral contrast and read as possible SBO vs ileus. FIlms reviewed. Review of Systems Review of Systems All systems reviewed & are unremarkable except as noted in HPI and below Constitutional Denies chills and Denies fever(s) Cardiovascular Denies chest pain and Denies dyspnea Respiratory Denies cough and Denies dyspnea Gastrointestinal Reports abdominal pain, Denies constipation, Reports heartburn, Denies diarrhea, Reports nausea and Reports vomiting [facility] Medical History Upper abdominal pain, unspecified (Acute) Incisional hernia of anterior abdominal wall with obstruction (Acute) Actinic keratosis (Chronic) Anemia (Chronic) BRCA2 positive (Chronic) Benign essential tremor (Chronic) Breast cancer, stage 1 (Chronic) Dehydration (Chronic) GERD (gastroesophageal reflux disease) (Chronic) H/O ovarian cancer (Chronic) H/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) H/O renal cell cancer (Chronic) HTN (hypertension) (Chronic) IT band syndrome (Chronic) Neutropenia (Chronic) Obesity (Chronic) Osteopenia (Chronic) Pulmonary embolism (Chronic) Seborrheic keratoses (Chronic) Stage 3 chronic kidney disease (Chronic) Incisional hernia (Resolved) S/p nephrectomy (Resolved 11/02/16) Ventral hernia (Resolved) Surgical History Status post cataract extraction and insertion of intraocular lens of right eye (Chronic 04/23/18) Status post cataract extraction and insertion of intraocular lens of left eye (Chronic 04/09/18) H/O right nephrectomy (Acute) S/P recurrent ventral herniorrhaphy (Acute 07/17/18) H/O partial cystectomy (Resolved) History of appendectomy (Resolved) History of bowel resection (Resolved) S/P TKR (total knee replacement) (Resolved) S/P hysterectomy with oophorectomy (Resolved) Social History Smoking/Tobacco Use Status: Never Alcohol Intake: never Drug use: Never Substance use type: does not use Do you feel safe at home: Yes Do you feel safe in your relationship?: Yes Additional Social history: unable to assess privately Meds Home Medications Medication Instructions Recorded Confirmed Type atenolol 50 mg PO DAILY 11/30/13 10/27/18 History calcium carb and citrate-vitD3 1 tab PO DAILY 11/30/13 10/27/18 History [Citracal + D Slow Release] simvastatin 10 mg PO DAILY 11/30/13 10/27/18 History hydrochlorothiazide 25 mg PO DAILY 12/21/17 10/27/18 History bisacodyl [Dulcolax (bisacodyl)] 5 mg PO DAILY PRN 04/04/18 10/27/18 History cyanocobalamin (vitamin B-12) 1,000 mcg PO DAILY 04/04/18 10/27/18 History [Vitamin B-12] magnesium oxide 400 mg PO DAILY 04/04/18 10/27/18 History cetirizine 10 mg tablet 10 mg PO DAILY PRN tab 07/27/18 10/27/18 History fluticasone propionate 50 2 spray INTRANASAL DAILY PRN 07/27/18 10/27/18 History mcg/actuation nasal spray,suspension Xarelto 10 mg PO DAILY 08/26/18 10/27/18 History acetaminophen 500 mg tablet 500 mg PO PRN tab 09/21/18 10/27/18 History acidophilus 100 million 1 cap PO DAILY cap 09/21/18 10/27/18 History cell-pectin, citrus 10 mg capsule aluminum-mag hydroxide-simethicone 10 ml PO QHS ml 09/21/18 10/27/18 History 200 mg-200 mg-20 mg/5 mL oral susp omeprazole 20 mg capsule,delayed 20 mg PO BID cap 09/21/18 10/27/18 History release oxycodone 5 mg capsule 5 mg PO DAILY PRN 09/21/18 10/27/18 History polyethylene glycol 3350 17 17 gm PO DAILY 09/21/18 10/27/18 History gram/dose oral powder Allergies Allergy/AdvReac Type Severity Reaction Status Date / Time latex Allergy Mild Verified 10/27/18 06:58 Sulfa (Sulfonamide AdvReac Severe liver Verified 10/27/18 06:58 Antibiotics) damage ciprofloxacin [From Cipro] AdvReac Intermediate unknown Verified 10/27/18 06:58 glucosamine AdvReac Intermediate Nausea Verified 10/27/18 06:58 glue on bandaids Allergy Mild rash Uncoded 10/27/18 06:58 Epideral Dressing AdvReac Severe Blistering Uncoded 10/27/18 06:58 Exam Const General: cooperative, comfortable and no acute distress Nutritional Appearance: obese Orientation: alert and oriented x3 [facility] Head: normocephalic and atraumatic Eyes Sclera: sclerae normal Resp Effort & Inspection: normal respiratory effort and able to speak in complete sentences Auscultation: clear to auscultation bilaterally Cardio Jugular venous pressure: no JVD Rate: regular rate Rhythm: regular rhythm GI Inspection: non-distended and scar (well-healed midline) Palpation: soft, not firm, no guarding and tender (minimal tenderness in epigastrium and LUQ) Auscultation: normal bowel sounds Skin General skin exam: no rashes or lesions noted and no jaundice Neuro General: alert and oriented x3 Speech: speech normal Results Imaging Abdomen CT scan report/results: report reviewed and image reviewed CT scan - pelvis: report reviewed and image reviewed Imaging Studies: Patient Name: KHARI LLAMASit #: [id number]: ER Ordering Provider: : REG ER Primary Care Provider: Dulce Hidalgo M.D.Date of Exam: 10/27/18Sex: F : 3Age: 77 Exam(s) EXAM: CT Abdomen and Pelvis Without Contrast EXAM DATE/TIME: 10/27/2018 8:24 AM CLINICAL HISTORY: 77 years old, female; Abdominal pain TECHNIQUE: Imaging protocol: Axial computed tomography images of the abdomen and pelvis without contrast. Coronal and sagittal reformatted images were created and reviewed. COMPARISON: CT ABDOMEN PELVIS WO 08/26/2018 4:00 AM FINDINGS: Lungs: Opacities in the right middle lobe and lingula and both lower lobes may represent atelectasis or pneumonia.. Mediastinum: Small hiatal hernia ABDOMEN: Liver: Normal. No mass. Gallbladder and bile ducts: Normal. No calcified stones. No ductal dilation. Pancreas: Normal. No ductal dilation. Spleen: Normal. No splenomegaly. Adrenals: Normal. No mass. Kidneys and ureters: Absence of the right kidney Stomach and bowel: Multiple loops of dilated bowel with air contrast levels may represent obstruction or ileus. More distally the small bowel tapers. (2:65). Appendix: No evidence of appendicitis. PELVIS: Bladder: Unremarkable as visualized. Reproductive: Unremarkable as visualized. ABDOMEN and PELVIS: Intraperitoneal space: Surgical clips in the anterior abdomen Bones/joints: Compression fracture of L4 is stable. Soft tissues: Anterior abdominal wall thickening in the abdomen measures 2.4 cm and was present on the prior study.. This may reflect edema, hemorrhage, or infection. There are adjacent inflammatory changes in the subcutaneous fat. Vasculature: Normal. No abdominal aortic aneurysm. Lymph nodes: Normal. No enlarged lymph nodes. IMPRESSION: 1. Opacities in the right middle lobe and lingula and both lower lobes may represent atelectasis or pneumonia.. 2. Anterior abdominal wall thickening in the abdomen measures 2.4 cm and was present on the prior study.. This may reflect edema, hemorrhage, or infection. There are adjacent inflammatory changes in the subcutaneous fat. 3. Multiple loops of dilated bowel with air contrast levels may represent obstruction or ileus. More distally the small bowel tapers. (2:65). Dictated and Authenticated by: Janelle Deleon MD. Ordering:DIEGO Klein MD Ordered By: CC: Dictated By: Reports vrad 10/27/18 0824 10/27/18 1032 Transcribed By: Lani Cazares This is privileged, confidential information intended only for the provider named. Any use or distribution by any person other than this provider is strictly prohibited. If you receive this report in error, please notify us immediately at [phone] and return the original report to us at the address above. Thank-you. Labs : 10/27/18 07:15 10/27/18 07:15 Laboratory Results - last 24 hr 10/27/18 10/27/18 10/27/18 07:15 07:15 07:15 WBC 9.04 RBC 4.15 Hgb 12.0 Hct 37.1 MCV 89.4 MCH 28.9 MCHC 32.3 RDW 16.0 H Plt Count 227 MPV 10.6 Immature Gran % 0.3 Neutrophils % 72.8 Lymphocytes % 19.9 Monocytes % 6.3 Eosinophils % 0.6 Basophils % 0.1 Absolute Neutrophils 6.58 Absolute Lymphocytes 1.80 Absolute Monocytes 0.57 Absolute Eosinophils 0.05 Absolute Basophils 0.01 Sodium 138 Potassium 3.8 Chloride 100 Carbon Dioxide 30.9 Anion Gap 7.1 BUN 31 H Creatinine 1.69 H Estimated GFR/1.73 m2 29.50 Glucose 168 H Calcium 9.5 Magnesium 2.1 Total Bilirubin 0.3 AST 15 ALT 18 Alkaline Phosphatase 115 Troponin I < 0.02 Total Protein 7.4 Albumin 3.3 L Lipase 72 L Urine Color Urine Clarity Urine pH Ur Specific [place] Urine Protein Urine Ketones Urine Blood Urine Nitrite Urine Bilirubin Urine Urobilinogen Ur Leukocyte Esterase Urine Glucose 10/27/18 09:40 WBC RBC Hgb Hct MCV MCH MCHC RDW Plt Count MPV Immature Gran % Neutrophils % Lymphocytes % Monocytes % Eosinophils % Basophils % Absolute Neutrophils Absolute Lymphocytes Absolute Monocytes Absolute Eosinophils Absolute Basophils Sodium Potassium Chloride Carbon Dioxide Anion Gap BUN Creatinine Estimated GFR/1.73 m2 Glucose Calcium Magnesium Total Bilirubin AST ALT Alkaline Phosphatase Troponin I Total Protein Albumin Lipase Urine Color Yellow Urine Clarity Clear Urine pH 7.0 Ur Specific [place] 1.020 Urine Protein Negative Urine Ketones Negative Urine Blood Negative Urine Nitrite Negative Urine Bilirubin Negative Urine Urobilinogen 0.2 Ur Leukocyte Esterase Negative Urine Glucose Negative Last Vital Signs Temp 36.7 C 10/27/18 12:30 Pulse 63 10/27/18 12:30 Resp 20 10/27/18 12:30 BP 156/65 H 10/27/18 12:30 Pulse Ox 100 10/27/18 12:30
[2018-10-27] MEDS: Lactated Ringers 1,000 ML 150 ML IV ×2 (14:21→20:39)
[2018-10-27] MEDS: Pantoprazole 40 MG VIAL IVP (20:40)
[2018-10-28] MEDS: Lactated Ringers 1,000 ML 150 ML IV ×2 (02:55→10:43)
[2018-10-28 06:50] LABS: Abs Immature Grans 0.01 k/cumm (0.0-0.09); Absolute Basophil Count 0.02 k/cumm (0.0-0.2); Absolute Eosinophil Count 0.08 k/cumm (0.0-0.7); Absolute Lymphocyte Count 1.84 k/cumm (1.2-3.4); Absolute Monocyte Count 0.44 k/cumm (0.11-0.7); Basophils % 0.4; Eosinophils % 1.6; HCT 35.8 % (36.0-46.0); HGB 11.5 g/dL (12.0-15.5); Immature Grans % 0.2; Lymphocytes % 35.8; Mean Corp. HGB Concentration 32.1 g/dL (32.0-36.0); Mean Corpuscular Hemoglobin 28.8 pg (27.0-33.0); Mean Corpuscular Volume 89.7 fL (80-95); Mean Platelet Volume 10.9 fL (8.0-11.0); Monocytes % 8.6; Neutrophils % 53.4; Platelet Count 205 x1000/uL (130-400); RBC 3.99 m/cumm (4.00-5.20); RBC Distribution Width 16.3 % (11.7-14.6); White Blood Cell Count 5.14 k/cumm (4.4-10.8)
[2018-10-28 06:52] LABS: Absolute Neutrophil Count 2.74 k/cumm (1.2-6.7)
--- NOTE | 2018-10-28 07:00 | DI.RAD_ITS ---
SYMPTOMS/DIAGNOSIS: ABD PAIN FLAT AND UPRIGHT ABDOMEN: Comparison is made with [id number] and CT dated [id number]. There is contrast seen in the colon related to the previous day's CT. The colon does not appear dilated. There are no dilated loops of small bowel. Suture material is seen in the mid abdomen. IMPRESSION: No evidence of bowel obstruction or significant dilatation.
[2018-10-28 07:04] LABS: Anion Gap 10.7 mmol/L (3-11); BUN 20 mg/dL (7-18); CO2 26.3 mmol/L (21.0-32.0); CREATININE 1.32 mg/dL (0.55-1.02); Calcium 9.1 mg/dL (8.5-10.1); Chloride 103 mmol/L (98-107); Estimated GFR 39.13 (mL/min/1.73m2); Glucose 120 mg/dL (70-100); Sodium 140 mmol/L (136-145)
[2018-10-28 07:59] VITALS: BP 156/82; PULSE 64; RESP 18; TEMP 36.2; O2SAT 97
--- NOTE | 2018-10-28 08:19 | DI.VRAD_ITS ---
EXAM: XR Abdomen, 2 Views EXAM DATE/TIME: 10/28/2018 12:00 AM CLINICAL HISTORY: 78 years old, female; Abdominal pain; Patient HX: PT had CT scan yesterday at approximately 1400 hrs, oral contrast given TECHNIQUE: Imaging protocol: Frontal view of the abdomen/pelvis with upright view of the abdomen. COMPARISON: CR XR ABD FLAT UPRIGHT PA CHEST 08/26/2018 9:30 AM FINDINGS: Gastrointestinal tract: Oral contrast reaches the rectum. No evidence of bowel obstruction. Intraperitoneal space: No pneumoperitoneum. Bones/joints: Unremarkable for age. IMPRESSION: Oral contrast reaches the rectum. No evidence of bowel obstruction. No pneumoperitoneum. Dictated and Authenticated by: Perfecto Huitron MD. Ordering:CHRISSY Felix MD
[2018-10-28] MEDS: Atenolol 50 MG TAB PO (09:02)
[2018-10-28] MEDS: hydroCHLOROthiazide 25 MG TAB PO (09:02)
[2018-10-28] MEDS: Rivaroxaban 10 MG TABLET PO (09:02)
--- NOTE | 2018-10-28 11:04 | W.PM.DS.N ---
Date of service: 10/28/18 Time of Service: 11:04 DS: Diagnosis Discharge Diagnosis (1) Upper abdominal pain, unspecified: Status: Acute (2) Nausea and vomiting: Status: Acute Discharge Plan Disposition Patient Disposition: HOME Condition: Stable Discharge Details Chief Complaint: Abd Prob Reason For Visit: INTRACTABLE ABDOMINAL PAIN, INTRACTABLE NAUSEA, Admit Date/Time: 10/27/18 11:41 Admit Provider: Isidro Juarez Attending Provider: Isidro Juarez Primary Care Provider: Dulce Hidalgo ED Provider: Latoya Cuello Hospital Course Hospital Course: 78 y/o female admitted through the ED at [facility] on 10/27/18 with complaints of nausea, vomiting, and abdominal pain. She had been evaluated in the ED in August 2018 with a similar episode. She had a recent ventral hernia repair with mesh in July 2018. Patient is scheduled for a colonoscopy in [place] in November 2018. CT abd/pelvis with oral contrast on admission was suggestive of ileus vs. obstruction. Follow-up AXR on 10/28/18 demonstrated that oral contrast had reached the rectum with no signs of obstruction. Patient's symptoms of nausea, vomiting, and abdominal pain resolved after she was admitted to the floor. She was kept NPO and hydrated with IVF overnight. She denies any abdominal complaints on 10/28/18. She had bowel movements overnight. Patient resumed on a regular diet and to be discharged this afternoon if tolerating the regular diet without problems. Patient instructed to follow-up with her PCP for a referral to have an upper endoscopy done with her colonoscopy next month. Upper endoscopy recommended as she has had recurrent symptoms of nausea, vomiting, and upper abdominal pain despite being on omeprazole. All questions answered. Patient agrees with discharge plans. Home Meds and New Rx's Prescriptions: Continued cetirizine [Zyrtec] 10 mg tablet 10 mg PO DAILY PRNRF: 0 polyethylene glycol 3350 [Miralax] 17 gram/dose powder 17 gm PO DAILY RF: 0 omeprazole 20 mg capsule,delayed release(DR/EC) 20 mg PO BID RF: 0 acidophilus-pectin, citrus [Acidophilus Probiotic] 100 million cell-10 mg capsule 1 cap PO DAILY RF: 0 oxycodone 5 mg capsule 5 mg PO DAILY PRN (Reason: pain) RF: 0 acetaminophen [Tylenol Extra Strength] 500 mg tablet 500 mg PO PRN RF: 0 alum-mag hydroxide-simeth 200-200-20 mg/5 mL suspension 10 ml PO QHS RF: 0 simvastatin 10 MG tablet 10 mg PO DAILY RF: 0 atenolol 50 MG tablet 50 mg PO DAILY RF: 0 calcium carb and citrate-vitD3 [Citracal + D Slow Release] 1 EACH tablet extended release 1 tab PO DAILY RF: 0 hydrochlorothiazide 25 MG tablet 25 mg PO DAILY RF: 0 cyanocobalamin (vitamin B-12) [Vitamin B-12] 1,000 mcg Tablet 1,000 mcg PO DAILY RF: 0 bisacodyl [Dulcolax (bisacodyl)] 5 mg Tablet,Delayed Release (Dr/Ec) 5 mg PO DAILY PRNRF: 0 magnesium oxide 400 mg Capsule 400 mg PO DAILY RF: 0 fluticasone propionate [Flonase Allergy Relief] 50 mcg/actuation spray,suspension 2 spray INTRANASAL DAILY PRNRF: 0 Xarelto 10 mg Tablet 10 mg PO DAILY RF: 0 Discharge Instructions Referrals: Dulce Hidalgo MD [Primary Care Provider] - (1-2 weeks. Follow-up hospitalization. GI referral for EGD.) Activity:: Activity as Tolerated Equipment/Supplies:: No Equipment Needed Diet:: As Tolerated Discharge Orders Discharge Orders: Discharge Order (Routine); Ordered 10/28/18 Ordered By: Isidro Juarez Exam Const General: cooperative, comfortable, no acute distress and well developed Nutritional Appearance: obese Orientation: alert and oriented x3 [facility] Head: normocephalic and atraumatic Eyes Sclera: sclerae normal Resp Effort & Inspection: normal respiratory effort and able to speak in complete sentences Cardio Jugular venous pressure: no JVD GI Inspection: non-distended and scar (midline scar healing well) Palpation: soft, not firm, no guarding, no masses and nontender Auscultation: normal bowel sounds Skin General skin exam: no rashes or lesions noted and no jaundice Neuro General: alert and oriented x3 Speech: speech normal DS: Data Vitals/I&O Vitals and I&O: Vital Signs Temperature 36.2 C L 10/28/18 07:59 Temperature Source Tympanic 10/28/18 07:59 Pulse 64 10/28/18 07:59 Pulse Rhythm Regular 10/28/18 08:10 Respiratory Rate 18 10/28/18 07:59 Respiratory Effort Non-Labored 10/28/18 08:10 Respiratory Depth Normal 10/28/18 08:10 Respiratory Pattern Normal 10/28/18 08:10 Blood Pressure 156/82 H 10/28/18 07:59 Blood Pressure Mean 89 10/27/18 09:00 Pulse Oximetry 97 10/28/18 07:59 Oxygen Delivery Method Room Air 10/28/18 07:59 Oxygen Flow Rate 0 10/28/18 07:59 Pain Level 0 10/27/18 19:42 Intake & Output 10/27/18 10/27/18 10/28/18 11:59 23:59 11:59 Intake Total 999 Balance 999 Weight 127.006 kg 127.006 kg Intake: IV 999 Other: Urine Color Yellow Urine Appearance Clear Urine Odor Normal Stool Size Moderate Stool Characteristics Formed Brown Voiding Methods Toilet Toilet Labs on day of discharge: Labs from last 24 hours 10/28/18 10/28/18 06:25 06:25 WBC 5.14 D RBC 3.99 L Hgb 11.5 L Hct 35.8 L MCV 89.7 MCH 28.8 MCHC 32.1 RDW 16.3 H Plt Count 205 MPV 10.9 Immature Gran % 0.2 Neutrophils % 53.4 Lymphocytes % 35.8 Monocytes % 8.6 Eosinophils % 1.6 Basophils % 0.4 Absolute Neutrophils 2.74 Absolute Lymphocytes 1.84 Absolute Monocytes 0.44 Absolute Eosinophils 0.08 Absolute Basophils 0.02 Sodium 140 Potassium 4.0 Chloride 103 Carbon Dioxide 26.3 Anion Gap 10.7 BUN 20 H D Creatinine 1.32 H Estimated GFR/1.73 m2 39.13 Glucose 120 H Calcium 9.1 PFSH Medical History Upper abdominal pain, unspecified (Acute) Incisional hernia of anterior abdominal wall with obstruction (Acute) Actinic keratosis (Chronic) Anemia (Chronic) BRCA2 positive (Chronic) Benign essential tremor (Chronic) Breast cancer, stage 1 (Chronic) Dehydration (Chronic) GERD (gastroesophageal reflux disease) (Chronic) H/O ovarian cancer (Chronic) H/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) H/O renal cell cancer (Chronic) HTN (hypertension) (Chronic) IT band syndrome (Chronic) Neutropenia (Chronic) Obesity (Chronic) Osteopenia (Chronic) Pulmonary embolism (Chronic) Seborrheic keratoses (Chronic) Stage 3 chronic kidney disease (Chronic) Incisional hernia (Resolved) S/p nephrectomy (Resolved 11/02/16) Ventral hernia (Resolved) Surgical History Status post cataract extraction and insertion of intraocular lens of right eye (Chronic 04/23/18) Status post cataract extraction and insertion of intraocular lens of left eye (Chronic 04/09/18) H/O right nephrectomy (Acute) S/P recurrent ventral herniorrhaphy (Acute 07/17/18) H/O partial cystectomy (Resolved) History of appendectomy (Resolved) History of bowel resection (Resolved) S/P TKR (total knee replacement) (Resolved) S/P hysterectomy with oophorectomy (Resolved) Social History Smoking/Tobacco Use Status: Never Alcohol Intake: never Drug use: Never Substance use type: does not use Do you feel safe at home: Yes Do you feel safe in your relationship?: Yes Additional Social history: unable to assess privately
[2018-10-28 11:30] VITALS: BP 156/72; PULSE 60; RESP 18; TEMP 36; O2SAT 98
== END 2018-10-28 13:53 | disposition home or self-care (01) ==
LOC: ER 12:15 → MS 12:26
PROVIDERS: Admitting Provider Surgery; Emergency Provider Physician Assistant; PCP Family Medicine; Visit Provider Surgery
DX: R10.13 Epigastric pain (principal); R11.2 Nausea with vomiting, unspecified; R10.12 Left upper quadrant pain; I12.9 Hypertensive chronic kidney disease with stage 1 through stage 4 chronic kidney disease, or unspecified chronic kidney disease; N18.3 Chronic kidney disease, stage 3 (moderate)
CPT/HCPCS: 36415; 80048; 80053; 83690; 93005; 96361; 96374; 96375; 99217; 99218; 99222; 99238; 99285; 74019; 74176; 81003; 83735; 84484; 85025; 93010; G0378; J0780; J2405; J2765; Q9967

== ENCOUNTER 2018-11-12 17:02 | Outpatient (REF) | payer MEDICARE, OTHER, SELFPAY ==
[2018-11-12 19:16] LABS: TSH (W/Ref FT4) 1.66 uIU/mL (0.358-3.74); Vitamin B12 701 pg/mL (193-986)
[2018-11-12 19:32] LABS: ESR 60 MM/HR (0-30)
[2018-11-12 20:14] LABS: Hemoglobin A1C 6.2 % (4.5-6.2)
[2018-11-14 10:09] LABS: Cyclic Citrullinated Peptide <2.5 U/mL (<5.0)
== END 2018-11-12 17:22 ==
LOC: NCHCN 17:02
PROVIDERS: PCP Family Medicine; Visit Provider Family Medicine
DX: R73.03 Prediabetes (principal); R53.83 Other fatigue; E53.8 Deficiency of other specified B group vitamins
CPT/HCPCS: 85652; 86200; 82607; 83036; 84443

== ENCOUNTER 2019-01-22 03:20 | Inpatient (IN) | payer MEDICARE, OTHER, SELFPAY ==
[2019-01-22] VITALS (38 sets, daily range): BP systolic 120–178; BP diastolic 49–152; PULSE 54–122; RESP 18–20; TEMP 35.9–36.6; O2SAT 89–100
--- NOTE | 2019-01-22 03:38 | W.ED.GENAD ---
Discharge Plan Disposition [facility] Condition: Stable Discharge Details Chief Complaint: Abd Prob Clinical Impression: SBO (small bowel obstruction) Admit Date/Time: 01/22/19 07:29 Admit Provider: Merced Paz Attending Provider: Merced Paz Primary Care Provider: Dulce Hidalgo ED Provider: Sekou Bonds Discharge Data Discharge Date/Time-TO BE ENTERED AT DEPARTURE: 01/22/19 09:35 Medical Decision Making 78-year-old female presents the ER complaining of abdominal pain vomiting, similar previous episodes of same. She is in mild distress, mildly hypertensive but with otherwise normal vital signs. She has a history of GERD as well as previous abdominal surgery, ventral hernia repair. Differential diagnosis includes gastritis, ileus, partial small bowel obstruction. IV placed, fluids initiated, patient given antiemetic and parenteral analgesia. Referred for CT images. White blood cell count 8, hematocrit 39, platelets 250. Sodium 135, potassium 3.8, chloride 98, bicarb 28, BUN 28, creatinine 1.8, unremarkable LFTs and lipase is 62. CT with evidence of small bowel obstruction. PLease see formal report. Patient improved following fluids and medications. Case discussed with Dr Paz Lab Data Lab results reviewed: Yes I reviewed the patient's lab results. Laboratory Results - last 24 hr 01/22/19 01/22/19 03:00 03:00 WBC 8.99 RBC 4.52 Hgb 12.6 Hct 39.1 MCV 86.5 MCH 27.9 MCHC 32.2 RDW 15.6 H Plt Count 250 MPV 10.7 Immature Gran % 0.1 Neutrophils % 79.7 Lymphocytes % 14.7 Monocytes % 4.4 Eosinophils % 1.0 Basophils % 0.1 Absolute Neutrophils 7.16 H Absolute Lymphocytes 1.32 Absolute Monocytes 0.40 Absolute Eosinophils 0.09 Absolute Basophils 0.01 Sodium 135 L Potassium 3.8 Chloride 98 Carbon Dioxide 28.8 Anion Gap 8.2 BUN 28 H Creatinine 1.84 H Estimated GFR/1.73 m2 26.67 Glucose 195 H Calcium 9.5 Magnesium 2.0 Total Bilirubin 0.5 AST 14 L ALT 20 Alkaline Phosphatase 106 Total Protein 7.8 Albumin 3.6 Lipase 62 L HPI General Mode of arrival: ambulatory. Date/Time Provider Initiated Documentation: 01/22/19 03:20. Limitations to Documentation: no limitations. Information obtained by: patient. History of Present Illness 78 year old F presents to the emergency department with the chief complaint of Recurrent abdominal pain and vomiting, described as similar to prior episodes, Quality is described as constant, and is localized to the abdomen. Patient reports no radiation. Patient started experiencing this hour(s) and it has been constant. No relieving factors improve symptom(s), Eating worsens symptoms . Patient notes no other symptoms. and nausea/vomiting. Patient did receive the following treatments prior to arrival, none Related Data Home Medications Medication Instructions Recorded Confirmed atenolol 50 mg PO DAILY 11/30/13 01/22/19 calcium carb and citrate-vitD3 1 tab PO DAILY 11/30/13 01/22/19 [Citracal + D Slow Release] simvastatin 10 mg PO DAILY 11/30/13 01/22/19 hydrochlorothiazide 25 mg PO DAILY 12/21/17 01/22/19 bisacodyl [Dulcolax (bisacodyl)] 5 mg PO DAILY PRN 04/04/18 01/22/19 cyanocobalamin (vitamin B-12) 1,000 mcg PO DAILY 04/04/18 01/22/19 [Vitamin B-12] magnesium oxide 400 mg PO DAILY 04/04/18 01/22/19 cetirizine 10 mg tablet 10 mg PO DAILY PRN tab 07/27/18 01/22/19 fluticasone propionate 50 2 spray INTRANASAL DAILY PRN 07/27/18 01/22/19 mcg/actuation nasal spray,suspension Xarelto 10 mg PO DAILY 08/26/18 01/22/19 acetaminophen 500 mg tablet 500 mg PO PRN tab 09/21/18 01/22/19 acidophilus 100 million 1 cap PO DAILY cap 09/21/18 01/22/19 cell-pectin, citrus 10 mg capsule aluminum-mag hydroxide-simethicone 10 ml PO QHS ml 09/21/18 01/22/19 200 mg-200 mg-20 mg/5 mL oral susp omeprazole 20 mg capsule,delayed 20 mg PO BID cap 09/21/18 01/22/19 release oxycodone 5 mg capsule 5 mg PO DAILY PRN 09/21/18 10/27/18 polyethylene glycol 3350 17 17 gm PO DAILY 09/21/18 01/22/19 gram/dose oral powder Allergies Allergy/AdvReac Type Severity Reaction Status Date / Time latex Allergy Mild Verified 10/27/18 06:58 Sulfa (Sulfonamide AdvReac Severe liver Verified 10/27/18 06:58 Antibiotics) damage ciprofloxacin [From Cipro] AdvReac Intermediate unknown Verified 10/27/18 06:58 glucosamine AdvReac Intermediate Nausea Verified 10/27/18 06:58 glue on bandaids Allergy Mild rash Uncoded 10/27/18 06:58 Epideral Dressing AdvReac Severe Blistering Uncoded 10/27/18 06:58 General Stated Complaint: Abd Prob SADIE: 3 Review of Systems Review of Systems No fever. Similar to previous. Began after eating a large meal. 6 systems reviewed and otherwise negative [facility] Medical History Actinic keratosis (Chronic) Anemia (Chronic) Benign essential tremor (Chronic) BRCA2 positive (Chronic) Breast cancer, stage 1 (Chronic) Dehydration (Chronic) GERD (gastroesophageal reflux disease) (Chronic) H/O ovarian cancer (Chronic) H/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) H/O renal cell cancer (Chronic) HTN (hypertension) (Chronic) Incisional hernia (Resolved) Incisional hernia of anterior abdominal wall with obstruction (Acute) IT band syndrome (Chronic) Neutropenia (Chronic) Obesity (Chronic) Osteopenia (Chronic) Pulmonary embolism (Chronic) S/p nephrectomy (Resolved 11/02/16) Seborrheic keratoses (Chronic) Stage 3 chronic kidney disease (Chronic) Upper abdominal pain, unspecified (Acute) Ventral hernia (Resolved) Surgical History H/O partial cystectomy (Resolved) H/O right nephrectomy (Acute) History of appendectomy (Resolved) History of bowel resection (Resolved) S/P hysterectomy with oophorectomy (Resolved) S/P recurrent ventral herniorrhaphy (Acute 07/17/18) S/P TKR (total knee replacement) (Resolved) Status post cataract extraction and insertion of intraocular lens of left eye (Chronic 04/09/18) Status post cataract extraction and insertion of intraocular lens of right eye (Chronic 04/23/18) Social History Smoking/Tobacco Use Status: Never Alcohol Intake: never Drug use: Never Substance use type: does not use Do you feel safe at home: Yes Do you feel safe in your relationship?: Yes Additional Social history: unable to assess privately Exam Narrative Exam Narrative: GEN: awake, alert, oriented 3. Pleasant, well groomed, interactive. HEAD: Normocephalic, atraumatic ENT: Mucous membranes moist, oropharynx unremarkable, External ear exam unremarkable EYES: PERRL, EOMI NECK: Full ROM, no EVA, no menigismus CHEST/RESP: Nontender, clear to auscultation bilateral, no wheeze/rhonchi/rales CARDIOVASCULAR: RRR, no murmur, rub raji. 2+ Rad pulse bilateral ABDOMEN: Soft, tender across the mid abdomen, no mass. +Bowel sounds, diminished EXT: Full ROM, no edema, no rash Neuro: Grossly normal neurologic exam, conversant, interactive. Psych: Speech fluent, thoughts congruent, affect normal Course Vital Signs Temperature 35.9 C L 01/22/19 03:24 Pulse 68 01/22/19 03:24 Respiratory Rate 20 01/22/19 03:24 Blood Pressure 170/68 H 01/22/19 03:24 Pulse Oximetry 97 01/22/19 03:24 Temperature 35.9 C L 01/22/19 03:24 Temperature Source Tympanic 01/22/19 03:24 Pulse 68 01/22/19 03:24 Respiratory Rate 20 01/22/19 03:24 Respiratory Effort Non-Labored 01/22/19 03:35 Blood Pressure 170/68 H 01/22/19 03:24 Pulse Oximetry 97 01/22/19 03:24 Oxygen Delivery Method Room Air 01/22/19 03:24 Oxygen Flow Rate 0 01/22/19 03:24 Pain Level 10 01/22/19 03:24
[2019-01-22] MEDS: MORPHine 10 MG/ML VIAL 4 MG IVP (03:40)
[2019-01-22] MEDS: Normal Saline 1,000 ML 1000 ML IV (03:45)
[2019-01-22 04:00] LABS: Abs Immature Grans 0.01 k/cumm (0.0-0.09); Absolute Basophil Count 0.01 k/cumm (0.0-0.2); Absolute Eosinophil Count 0.09 k/cumm (0.0-0.7); Absolute Lymphocyte Count 1.32 k/cumm (1.2-3.4); Absolute Neutrophil Count 7.16 k/cumm (1.2-6.7); Basophils % 0.1; HCT 39.1 % (36.0-46.0); HGB 12.6 g/dL (12.0-15.5); Immature Grans % 0.1; Lymphocytes % 14.7; Mean Corp. HGB Concentration 32.2 g/dL (32.0-36.0); Mean Corpuscular Hemoglobin 27.9 pg (27.0-33.0); Mean Corpuscular Volume 86.5 fL (80-95); Mean Platelet Volume 10.7 fL (8.0-11.0); Monocytes % 4.4; Neutrophils % 79.7; Platelet Count 250 x1000/uL (130-400); RBC 4.52 m/cumm (4.00-5.20); RBC Distribution Width 15.6 % (11.7-14.6); White Blood Cell Count 8.99 k/cumm (4.4-10.8)
[2019-01-22 04:22] LABS: ALT 20 U/L (12-78); AST 14 U/L (15-37); Albumin 3.6 g/dL (3.4-5.0); Alkaline Phosphatase 106 U/L (46-116); Anion Gap 8.2 mmol/L (3-11); BUN 28 mg/dL (7-18); Bilirubin, Total 0.5 mg/dL (0.2-1.0); CO2 28.8 mmol/L (21.0-32.0); CREATININE 1.84 mg/dL (0.55-1.02); Calcium 9.5 mg/dL (8.5-10.1); Chloride 98 mmol/L (98-107); Estimated GFR 26.67 (mL/min/1.73m2); Glucose 195 mg/dL (70-100); Lipase 62 U/L (73-393); Potassium 3.8 mmol/L (3.5-5.1); Sodium 135 mmol/L (136-145); Total Protein 7.8 g/dL (6.4-8.2)
--- NOTE | 2019-01-22 04:26 | DI.CT_ITS ---
SYMPTOM/DIAGNOSIS: NAUSEA, VOMITING, ELEVATED CR. ABDOMINAL AND PELVIC CT: 01/22 CT examination of the abdomen and pelvis was performed without contrast administration. Note is made of an L4 vertebral compression fracture, unchanged in appearance from CT of 10/27/2018. There are chronic fibrotic changes in the lung bases with mild bronchiectasis. There is an apparent hiatal hernia. Liver, spleen and pancreas are unremarkable by noncontrast criteria. Gallbladder and bile ducts are CT normal. Abdominal aorta is of normal diameter. There has been a prior right nephrectomy. Left kidney unremarkable in appearance. No renal or ureteral calcification and no evidence of hydronephrosis. Adrenals are unremarkable in appearance. There appears to have been prior abdominal surgery with vascular clips at multiple sites and some apparent scarring of the anterior abdominal subcutaneous fat. No fluid collection seen anteriorly. No gross hernia. No gross abdominal or pelvic adenopathy. The proximal small bowel is moderately dilated and there are some portions of small bowel with thickened wall. Distal small bowel is nondilated. Suspect transition point in mid abdomen to right lower quadrant. No evidence of colonic obstruction. No evidence of diverticulitis. No evidence of perforation. No free fluid in the abdomen. CONCLUSION: Findings suggesting early or partial mid small bowel obstruction. The findings are quite similar to findings on previous CT of 10/27/2018.
[2019-01-22] MEDS: Pantoprazole 40 MG VIAL IVP (05:21)
[2019-01-22] MEDS: Ondansetron 4 MG/2 ML VIAL IVP (05:25)
--- NOTE | 2019-01-22 07:00 | NUR.NOTE ---
Nursing Note: pt resting in stretcher, no signs of distress. facial expression and body language relaxed. pt updated on plan of care. verbalized understanding. will continue to monitor.
[2019-01-22] MEDS: Normal Saline 1,000 ML 150 ML IV ×3 (07:42→21:31)
--- NOTE | 2019-01-22 07:53 | NUR.NOTE ---
Nursing Note: Report given to Ani ABREU
--- NOTE | 2019-01-22 10:53 | HPE_ITS ---
Date of service: 01/22/19 Time of Service: 10:54 Assessment and Plan (1) Nausea and vomiting: Current visit: No Status: Acute Patient's complaints of abdominal pain, nausea and vomiting have improved since receiving GI cocktail and morphine. She reports that she recently had an EGD and Colonoscopy at [facility] [place]. Will look up these results. Admission for IV fluids and bowel rest. She has had previous admissions (most recent being on 10/27-10/28) with similar symptoms, which were amendable with this treatment. Spoke with Ms. Aguiar and she is agreeable to this treatment plan. History of Present Illness Chief Complaint: Abdominal Pain Narrative: 78 y/o female with history of GERD and ventral hernia s/p repair presents with epigastric pain associated with nausea and vomiting. She reports that she has been passing gas. Last BM is reported to be a large BM yesterday morning. Currently her abdominal pain has improved since receiving GI cocktail, zofran and morphine in the ER. She has had similar episodes like this in the past. Denies any fevers, chills or night sweats. Review of Systems Constitutional Denies chills, Denies fever(s) and Denies night sweats Cardiovascular Denies dyspnea Respiratory Denies cough and Denies dyspnea Gastrointestinal Reports abdominal pain, Denies bloating, Denies heartburn, Reports nausea and Reports vomiting [facility] Medical History Actinic keratosis (Chronic) Anemia (Chronic) Benign essential tremor (Chronic) BRCA2 positive (Chronic) Breast cancer, stage 1 (Chronic) Dehydration (Chronic) GERD (gastroesophageal reflux disease) (Chronic) H/O ovarian cancer (Chronic) H/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) H/O renal cell cancer (Chronic) HTN (hypertension) (Chronic) Incisional hernia (Resolved) Incisional hernia of anterior abdominal wall with obstruction (Acute) IT band syndrome (Chronic) Neutropenia (Chronic) Obesity (Chronic) Osteopenia (Chronic) Pulmonary embolism (Chronic) S/p nephrectomy (Resolved 11/02/16) Seborrheic keratoses (Chronic) Stage 3 chronic kidney disease (Chronic) Upper abdominal pain, unspecified (Acute) Ventral hernia (Resolved) Surgical History H/O partial cystectomy (Resolved) H/O right nephrectomy (Acute) History of appendectomy (Resolved) History of bowel resection (Resolved) S/P hysterectomy with oophorectomy (Resolved) S/P recurrent ventral herniorrhaphy (Acute 07/17/18) S/P TKR (total knee replacement) (Resolved) Status post cataract extraction and insertion of intraocular lens of left eye (Chronic 04/09/18) Status post cataract extraction and insertion of intraocular lens of right eye (Chronic 04/23/18) Social History Smoking/Tobacco Use Status: Never Alcohol Intake: never Drug use: Never Substance use type: does not use Do you feel safe at home: Yes Do you feel safe in your relationship?: Yes Additional Social history: unable to assess privately Meds Home Medications Medication Instructions Recorded Confirmed Type atenolol 50 mg PO DAILY 11/30/13 01/22/19 History calcium carb and citrate-vitD3 1 tab PO DAILY 11/30/13 01/22/19 History [Citracal + D Slow Release] simvastatin 10 mg PO DAILY 11/30/13 01/22/19 History hydrochlorothiazide 25 mg PO DAILY 12/21/17 01/22/19 History bisacodyl [Dulcolax (bisacodyl)] 5 mg PO DAILY PRN 04/04/18 01/22/19 History cyanocobalamin (vitamin B-12) 1,000 mcg PO DAILY 04/04/18 01/22/19 History [Vitamin B-12] magnesium oxide 400 mg PO DAILY 04/04/18 01/22/19 History cetirizine 10 mg tablet 10 mg PO DAILY PRN tab 07/27/18 01/22/19 History fluticasone propionate 50 2 spray INTRANASAL DAILY PRN 07/27/18 01/22/19 History mcg/actuation nasal spray,suspension Xarelto 10 mg PO DAILY 08/26/18 01/22/19 History acetaminophen 500 mg tablet 500 mg PO PRN tab 09/21/18 01/22/19 History acidophilus 100 million 1 cap PO DAILY cap 09/21/18 01/22/19 History cell-pectin, citrus 10 mg capsule aluminum-mag hydroxide-simethicone 10 ml PO QHS ml 09/21/18 01/22/19 History 200 mg-200 mg-20 mg/5 mL oral susp omeprazole 20 mg capsule,delayed 20 mg PO BID cap 09/21/18 01/22/19 History release oxycodone 5 mg capsule 5 mg PO DAILY PRN 09/21/18 10/27/18 History polyethylene glycol 3350 17 17 gm PO DAILY 09/21/18 01/22/19 History gram/dose oral powder Allergies Allergy/AdvReac Type Severity Reaction Status Date / Time latex Allergy Mild Verified 10/27/18 06:58 Sulfa (Sulfonamide AdvReac Severe liver Verified 10/27/18 06:58 Antibiotics) damage ciprofloxacin [From Cipro] AdvReac Intermediate unknown Verified 10/27/18 06:58 glucosamine AdvReac Intermediate Nausea Verified 10/27/18 06:58 glue on bandaids Allergy Mild rash Uncoded 10/27/18 06:58 Epideral Dressing AdvReac Severe Blistering Uncoded 10/27/18 06:58 Exam Const General: cooperative and comfortable Nutritional Appearance: obese Orientation: alert and oriented x3 Resp Effort & Inspection: normal respiratory effort, no audible wheezes and no cough Auscultation: clear to auscultation bilaterally Cardio Jugular venous pressure: no JVD Rate: regular rate Rhythm: regular rhythm Heart Sounds: S1 normal, S2 normal and no murmurs GI Inspection: normal to inspection, non-distended and incision (Healed s/p ventral hernia repair ) Palpation: soft, no guarding and nontender Auscultation: normal bowel sounds Results Labs : 01/22/19 03:00 01/22/19 03:00 Laboratory Results - last 24 hr 01/22/19 01/22/19 03:00 03:00 WBC 8.99 RBC 4.52 Hgb 12.6 Hct 39.1 MCV 86.5 MCH 27.9 MCHC 32.2 RDW 15.6 H Plt Count 250 MPV 10.7 Immature Gran % 0.1 Neutrophils % 79.7 Lymphocytes % 14.7 Monocytes % 4.4 Eosinophils % 1.0 Basophils % 0.1 Absolute Neutrophils 7.16 H Absolute Lymphocytes 1.32 Absolute Monocytes 0.40 Absolute Eosinophils 0.09 Absolute Basophils 0.01 Sodium 135 L Potassium 3.8 Chloride 98 Carbon Dioxide 28.8 Anion Gap 8.2 BUN 28 H Creatinine 1.84 H Estimated GFR/1.73 m2 26.67 Glucose 195 H Calcium 9.5 Magnesium 2.0 Total Bilirubin 0.5 AST 14 L ALT 20 Alkaline Phosphatase 106 Total Protein 7.8 Albumin 3.6 Lipase 62 L Last Vital Signs Temp 36.6 C 01/22/19 10:00 Pulse 78 01/22/19 10:00 Resp 18 01/22/19 10:00 BP 163/78 H 01/22/19 10:00 Pulse Ox 99 01/22/19 10:00
[2019-01-22] MEDS: Pantoprazole 40 MG TABCR PO ×2 (13:06→19:37)
--- NOTE | 2019-01-22 16:17 | PGE_ITS ---
Date of Service Date of service: 01/22/19 Time of Service: 16:17 Assessment and Plan (1) Upper abdominal pain, unspecified: Current visit: No Status: Acute A\\ Abdominal pain which is recurrent CT scan ? SBO but patient is passing flatus. Pain resolved after GI cocktail [place] [facility] [place] P\\ Start Clears Saline lock If tolerates clears advance to regular for breakfast. If tolerates that then may be discharged tomorrow Subjective Interval history since last seen: Mrs Aguiar again has no pain. She continues to pass flatus. She has had no N or pain since she was given the GI cocktail. per patient she had a normal BM yesterday Exam Const General: cooperative, comfortable and no acute distress Orientation: alert and oriented x3 HENMT Head: normocephalic and atraumatic Resp Effort & Inspection: normal respiratory effort Auscultation: clear to auscultation bilaterally Cardio Rate: regular rate Rhythm: regular rhythm GI Inspection: normal to inspection Palpation: soft, no hepatosplenomegaly and nontender Auscultation: normal bowel sounds Objective Objective Clinical Data: Abnormal lab results 01/22/19 01/22/19 Range/Units 03:00 03:00 RDW 15.6 H (11.7-14.6) % Absolute Neutrophils 7.16 H (1.2-6.7) k/cumm Sodium 135 L (136-145) mmol/L BUN 28 H (7-18) mg/dL Creatinine 1.84 H (0.55-1.02) mg/dL Glucose 195 H (70-100) mg/dL AST 14 L (15-37) U/L Lipase 62 L (73-393) U/L Vital Signs Temperature 96.8 F L 01/22/19 15:09 Temperature Source Tympanic 01/22/19 15:09 Pulse 63 01/22/19 15:09 Pulse Rhythm Regular 01/22/19 15:43 Respiratory Rate 18 01/22/19 15:09 Respiratory Effort Non-Labored 01/22/19 15:43 Respiratory Depth Normal 01/22/19 15:43 Respiratory Pattern Normal 01/22/19 15:43 Blood Pressure 135/61 01/22/19 15:09 Blood Pressure Mean 104 01/22/19 06:46 Pulse Oximetry 99 01/22/19 15:09 Oxygen Delivery Method Room Air 01/22/19 15:09 Oxygen Flow Rate 0 01/22/19 15:09 Pain Level 0 01/22/19 15:09 Intake & Output 01/21/19 01/22/19 01/22/19 23:59 11:59 23:59 Intake Total 999 Output Total 875 / 875 Balance 999 125 / 1125 Weight 282 lb 3.067 oz Intake: IV 999 Output: Urine 5 Other: Urine Color Pale Yellow Urine Appearance Clear Clear Urine Odor None Comment Pt denies discomfort Voiding Methods Toilet Laboratory Results WBC 8.99 k/cumm (4.4-10.8) 01/22/19 03:00 RBC 4.52 m/cumm (4.00-5.20) 01/22/19 03:00 Hgb 12.6 g/dL (12.0-15.5) 01/22/19 03:00 Hct 39.1 % (36.0-46.0) 01/22/19 03:00 MCV 86.5 fL (80-95) 01/22/19 03:00 MCH 27.9 pg (27.0-33.0) 01/22/19 03:00 MCHC 32.2 g/dL (32.0-36.0) 01/22/19 03:00 RDW 15.6 % (11.7-14.6) H 01/22/19 03:00 Plt Count 250 x1000/uL (130-400) 01/22/19 03:00 MPV 10.7 fL (8.0-11.0) 01/22/19 03:00 Immature Gran % 0.1 01/22/19 03:00 79.7 01/22/19 03:00 14.7 01/22/19 03:00 4.4 01/22/19 03:00 1.0 01/22/19 03:00 0.1 01/22/19 03:00 Absolute Neutrophils 7.16 k/cumm (1.2-6.7) H 01/22/19 03:00 Absolute Lymphocytes 1.32 k/cumm (1.2-3.4) 01/22/19 03:00 Absolute Monocytes 0.40 k/cumm (0.11-0.7) 01/22/19 03:00 Absolute Eosinophils 0.09 k/cumm (0.0-0.7) 01/22/19 03:00 Absolute Basophils 0.01 k/cumm (0.0-0.2) 01/22/19 03:00 Sodium 135 mmol/L (136-145) L 01/22/19 03:00 Potassium 3.8 mmol/L (3.5-5.1) 01/22/19 03:00 Chloride 98 mmol/L (98-107) 01/22/19 03:00 Carbon Dioxide 28.8 mmol/L (21.0-32.0) 01/22/19 03:00 8.2 mmol/L (3-11) 01/22/19 03:00 BUN 28 mg/dL (7-18) H 01/22/19 03:00 1.84 mg/dL (0.55-1.02) H 01/22/19 03:00 26.67 (mL/min/1.73m2) 01/22/19 03:00 Glucose 195 mg/dL (70-100) H 01/22/19 03:00 Calcium 9.5 mg/dL (8.5-10.1) 01/22/19 03:00 Magnesium 2.0 mg/dL (1.8-2.4) 01/22/19 03:00 0.5 mg/dL (0.2-1.0) 01/22/19 03:00 AST 14 U/L (15-37) L 01/22/19 03:00 ALT 20 U/L (12-78) 01/22/19 03:00 106 U/L (46-116) 01/22/19 03:00 7.8 g/dL (6.4-8.2) 01/22/19 03:00 3.6 g/dL (3.4-5.0) 01/22/19 03:00 62 U/L (73-393) L 01/22/19 03:00
[2019-01-22] MEDS: Mylanta Suspension 30 ML CUP 10 ML PO (21:30)
[2019-01-23 03:17] VITALS: BP 101/47; PULSE 60; RESP 18; TEMP 36.6; O2SAT 97
[2019-01-23] MEDS: Normal Saline 1,000 ML 150 ML IV (03:17)
--- NOTE | 2019-01-23 06:50 | W.PM.PROGNOT ---
Date of Service Date of service: 01/23/19 Time of Service: 06:50 Assessment and Plan (1) Upper abdominal pain, unspecified: Current visit: No Status: Acute A\\ SBO vs PSBO/ stricture. Patient did well once she came up to the floor and got hydrated. HAs been drinking clear liquids all night without increase in pain, N/V P\\ Advance diet and if she tolerates will D/C home Subjective Interval history since last seen: Mrs. Aguiar is doing well. She is passing a lot of gas. She denies any pain, nausea or vomiting. No BM yet Exam Resp Effort & Inspection: normal respiratory effort Auscultation: clear to auscultation bilaterally Cardio Rate: regular rate Rhythm: regular rhythm GI Inspection: normal to inspection and non-distended Palpation: soft, no hepatosplenomegaly and nontender Auscultation: normal bowel sounds Objective Objective Clinical Data: Vital Signs Temperature 97.9 F 01/23/19 03:17 Temperature Source Tympanic 01/22/19 15:09 Pulse 60 01/23/19 03:17 Pulse Rhythm Regular 01/22/19 19:38 Respiratory Rate 18 01/23/19 03:17 Respiratory Effort Non-Labored 01/22/19 19:38 Respiratory Depth Normal 01/22/19 19:38 Respiratory Pattern Normal 01/22/19 19:38 Blood Pressure 101/47 L 01/23/19 03:17 Blood Pressure Mean 104 01/22/19 06:46 Pulse Oximetry 97 01/23/19 03:17 Oxygen Delivery Method Room Air 01/23/19 03:17 Oxygen Flow Rate 0 01/23/19 03:17 Pain Level 0 01/23/19 03:17 Intake & Output 01/22/19 01/22/19 01/23/19 11:59 23:59 11:59 Intake Total 1000 / 3000 2000 / 3000 865 / 865 Output Total 875 / 875 Balance 999 / 5 112 / 212 865 / 865 Weight 282 lb 3.067 oz Intake: IV 1000 / 3000 2000 / 3000 865 / 865 Output: Urine 875 / 875 Other: Urine Color Pale Pale Yellow Yellow Urine Appearance Clear Clear Clear Urine Odor None None Comment pt state she voids in the tiolet Voiding Methods Toilet Toilet Laboratory Results WBC 8.99 k/cumm (4.4-10.8) 01/22/19 03:00 RBC 4.52 m/cumm (4.00-5.20) 01/22/19 03:00 Hgb 12.6 g/dL (12.0-15.5) 01/22/19 03:00 Hct 39.1 % (36.0-46.0) 01/22/19 03:00 MCV 86.5 fL (80-95) 01/22/19 03:00 MCH 27.9 pg (27.0-33.0) 01/22/19 03:00 MCHC 32.2 g/dL (32.0-36.0) 01/22/19 03:00 RDW 15.6 % (11.7-14.6) H 01/22/19 03:00 Plt Count 250 x1000/uL (130-400) 01/22/19 03:00 MPV 10.7 fL (8.0-11.0) 01/22/19 03:00 Immature Gran % 0.1 01/22/19 03:00 79.7 01/22/19 03:00 14.7 01/22/19 03:00 4.4 01/22/19 03:00 1.0 01/22/19 03:00 0.1 01/22/19 03:00 Absolute Neutrophils 7.16 k/cumm (1.2-6.7) H 01/22/19 03:00 Absolute Lymphocytes 1.32 k/cumm (1.2-3.4) 01/22/19 03:00 Absolute Monocytes 0.40 k/cumm (0.11-0.7) 01/22/19 03:00 Absolute Eosinophils 0.09 k/cumm (0.0-0.7) 01/22/19 03:00 Absolute Basophils 0.01 k/cumm (0.0-0.2) 01/22/19 03:00 Sodium 135 mmol/L (136-145) L 01/22/19 03:00 Potassium 3.8 mmol/L (3.5-5.1) 01/22/19 03:00 Chloride 98 mmol/L (98-107) 01/22/19 03:00 Carbon Dioxide 28.8 mmol/L (21.0-32.0) 01/22/19 03:00 8.2 mmol/L (3-11) 01/22/19 03:00 BUN 28 mg/dL (7-18) H 01/22/19 03:00 1.84 mg/dL (0.55-1.02) H 01/22/19 03:00 26.67 (mL/min/1.73m2) 01/22/19 03:00 Glucose 195 mg/dL (70-100) H 01/22/19 03:00 Calcium 9.5 mg/dL (8.5-10.1) 01/22/19 03:00 Magnesium 2.0 mg/dL (1.8-2.4) 01/22/19 03:00 0.5 mg/dL (0.2-1.0) 01/22/19 03:00 AST 14 U/L (15-37) L 01/22/19 03:00 ALT 20 U/L (12-78) 01/22/19 03:00 106 U/L (46-116) 01/22/19 03:00 7.8 g/dL (6.4-8.2) 01/22/19 03:00 3.6 g/dL (3.4-5.0) 01/22/19 03:00 62 U/L (73-393) L 01/22/19 03:00
--- NOTE | 2019-01-23 06:53 | PDOC.DSDIS_ITS ---
Discharge Plan Disposition Patient Disposition: HOME Condition: Stable Discharge Details Chief Complaint: Abd Prob Clinical Impression: SBO (small bowel obstruction) Reason For Visit: Abdominal pain/ ? small bowel stricture Admit Date/Time: 01/22/19 07:29 Admit Provider: Merced Paz Attending Provider: Merced Paz Primary Care Provider: Dulce Hidalgo ED Provider: Sekou Bonds Hospital Course Hospital Course: Mrs. Aguiar is a pleasant 78 year old female well known to my service who has had several abdominal surgeries including radiation for cancer. Her last surgery was incarcerated incisional hernia for which she went to [facility]. Since that surgery she has had intermittent abdominal pain where she comes into the emergency department with nausea vomiting and what looks like a small bowel obstruction on CAT scan. Patient usually gets a GI cocktail which helps her pain she gets admitted for IV fluids and bowel rest and within a few hours she starts to pass flatus. Usually within 24 hours she is able to get discharged home without any more symptoms. No strictures are noted on the CAT scan but it was done without contrast. She was admitted yesterday morning to the floor. She was started on IV fluids and bowel rest was ordered. By mid afternoon patient was feeling much better her pain had subsided she was not nauseated and she was again passing a lot of flatus. She had had a large per patient bowel movement the night before. She was started on clear liquids the night of 01/22. She drank clear liquids all night long and this morning on January 23 she looks good she has no pain, no nausea no vomiting, and she continues to pass a lot of gas. She has not yet had a BM. Patient was given a regular diet for breakfast which she was able to tolerate without any increase in pain, nausea or vomiting. Patient is discharged home. Home Meds and New Rx's Prescriptions: Continued cetirizine [Zyrtec] 10 mg tablet 10 mg PO DAILY PRNRF: 0 polyethylene glycol 3350 [Miralax] 17 gram/dose powder 17 gm PO DAILY RF: 0 omeprazole 20 mg capsule,delayed release(DR/EC) 20 mg PO BID RF: 0 acidophilus-pectin, citrus [Acidophilus Probiotic] 100 million cell-10 mg capsule 1 cap PO DAILY RF: 0 oxycodone 5 mg capsule 5 mg PO DAILY PRN (Reason: pain) RF: 0 acetaminophen [Tylenol Extra Strength] 500 mg tablet 500 mg PO PRN RF: 0 alum-mag hydroxide-simeth 200-200-20 mg/5 mL suspension 10 ml PO QHS RF: 0 simvastatin 10 MG tablet 10 mg PO DAILY RF: 0 atenolol 50 MG tablet 50 mg PO DAILY RF: 0 calcium carb and citrate-vitD3 [Citracal + D Slow Release] 1 EACH tablet extended release 1 tab PO DAILY RF: 0 hydrochlorothiazide 25 MG tablet 25 mg PO DAILY RF: 0 cyanocobalamin (vitamin B-12) [Vitamin B-12] 1,000 mcg Tablet 1,000 mcg PO DAILY RF: 0 bisacodyl [Dulcolax (bisacodyl)] 5 mg Tablet,Delayed Release (Dr/Ec) 5 mg PO DAILY PRNRF: 0 magnesium oxide 400 mg Capsule 400 mg PO DAILY RF: 0 fluticasone propionate [Flonase Allergy Relief] 50 mcg/actuation spray,suspension 2 spray INTRANASAL DAILY PRNRF: 0 Xarelto 10 mg Tablet 10 mg PO DAILY RF: 0 Discharge Instructions Instructions: Low Fiber Diet (GEN) Stand Alone Forms: Nursing Discharge Form Referrals: Dulce Hidalgo MD [Primary Care Provider] - (As needed) Activity:: Activity as Tolerated Equipment/Supplies:: No Equipment Needed Diet:: low fiber for a few days Discharge Orders Discharge Orders: Discharge Order (Routine); Ordered 01/23/19 Ordered By: Merced Paz DS: Diagnosis Discharge Diagnosis (1) Upper abdominal pain, unspecified: Status: Acute
[2019-01-23 07:12] VITALS: BP 135/48; PULSE 58; RESP 17; TEMP 35.6; O2SAT 95
[2019-01-23] MEDS: Rivaroxaban 10 MG TABLET PO (07:45)
[2019-01-23] MEDS: Atenolol 50 MG TAB PO (07:45)
[2019-01-23] MEDS: Pantoprazole 40 MG TABCR PO (07:45)
[2019-01-23] MEDS: hydroCHLOROthiazide 25 MG TAB PO (07:46)
--- NOTE | 2019-01-25 13:52 | W.PM.DS.N ---
DS: Diagnosis Discharge Diagnosis (1) Upper abdominal pain, unspecified: Status: Acute Discharge Plan Disposition Patient Disposition: HOME Condition: Stable Discharge Details Chief Complaint: Abd Prob Clinical Impression: SBO (small bowel obstruction) Reason For Visit: Abdominal pain/ ? small bowel stricture Admit Date/Time: 01/22/19 07:29 Admit Provider: Merced Paz Attending Provider: Merced Paz Primary Care Provider: Dulce Hidalgo ED Provider: Sekou Bonds Hospital Course Hospital Course: Mrs. Aguiar is a pleasant 78 year old female well known to my service who has had several abdominal surgeries including radiation for cancer. Her last surgery was incarcerated incisional hernia for which she went to [facility]. Since that surgery she has had intermittent abdominal pain where she comes into the emergency department with nausea vomiting and what looks like a small bowel obstruction on CAT scan. Patient usually gets a GI cocktail which helps her pain she gets admitted for IV fluids and bowel rest and within a few hours she starts to pass flatus. Usually within 24 hours she is able to get discharged home without any more symptoms. No strictures are noted on the CAT scan but it was done without contrast. She was admitted yesterday morning to the floor. She was started on IV fluids and bowel rest was ordered. By mid afternoon patient was feeling much better her pain had subsided she was not nauseated and she was again passing a lot of flatus. She had had a large per patient bowel movement the night before. She was started on clear liquids the night of 01/22. She drank clear liquids all night long and this morning on January 23 she looks good she has no pain, no nausea no vomiting, and she continues to pass a lot of gas. She has not yet had a BM. Patient was given a regular diet for breakfast which she was able to tolerate without any increase in pain, nausea or vomiting. Patient is discharged home. Home Meds and New Rx's Prescriptions: Continued cetirizine [Zyrtec] 10 mg tablet 10 mg PO DAILY PRNRF: 0 polyethylene glycol 3350 [Miralax] 17 gram/dose powder 17 gm PO DAILY RF: 0 omeprazole 20 mg capsule,delayed release(DR/EC) 20 mg PO BID RF: 0 acidophilus-pectin, citrus [Acidophilus Probiotic] 100 million cell-10 mg capsule 1 cap PO DAILY RF: 0 oxycodone 5 mg capsule 5 mg PO DAILY PRN (Reason: pain) RF: 0 acetaminophen [Tylenol Extra Strength] 500 mg tablet 500 mg PO PRN RF: 0 alum-mag hydroxide-simeth 200-200-20 mg/5 mL suspension 10 ml PO QHS RF: 0 simvastatin 10 MG tablet 10 mg PO DAILY RF: 0 atenolol 50 MG tablet 50 mg PO DAILY RF: 0 calcium carb and citrate-vitD3 [Citracal + D Slow Release] 1 EACH tablet extended release 1 tab PO DAILY RF: 0 hydrochlorothiazide 25 MG tablet 25 mg PO DAILY RF: 0 cyanocobalamin (vitamin B-12) [Vitamin B-12] 1,000 mcg Tablet 1,000 mcg PO DAILY RF: 0 bisacodyl [Dulcolax (bisacodyl)] 5 mg Tablet,Delayed Release (Dr/Ec) 5 mg PO DAILY PRNRF: 0 magnesium oxide 400 mg Capsule 400 mg PO DAILY RF: 0 fluticasone propionate [Flonase Allergy Relief] 50 mcg/actuation spray,suspension 2 spray INTRANASAL DAILY PRNRF: 0 Xarelto 10 mg Tablet 10 mg PO DAILY RF: 0 Discharge Instructions Instructions: Low Fiber Diet (GEN) Stand Alone Forms: Nursing Discharge Form Referrals: Dulce Hidalgo MD [Primary Care Provider] - (As needed) Activity:: Activity as Tolerated Equipment/Supplies:: No Equipment Needed Diet:: low fiber for a few days Discharge Orders Discharge Orders: Discharge Order (Routine); Ordered 01/23/19 Ordered By: Merced Paz Discharge Data Discharge Date/Time-TO BE ENTERED AT DEPARTURE: 01/23/19 10:37 DS: Data Vitals/I&O Vitals and I&O: Vital Signs Temperature 96.1 F L 01/23/19 07:12 Temperature Source Tympanic 01/23/19 07:12 Pulse 58 L 01/23/19 07:12 Pulse Rhythm Regular 01/23/19 07:54 Respiratory Rate 17 01/23/19 07:12 Respiratory Effort Non-Labored 01/23/19 07:54 Respiratory Depth Normal 01/23/19 07:54 Respiratory Pattern Normal 01/23/19 07:54 Blood Pressure 135/48 L 01/23/19 07:12 Blood Pressure Mean 104 01/22/19 06:46 Pulse Oximetry 95 01/23/19 07:12 Oxygen Delivery Method Room Air 01/23/19 07:12 Oxygen Flow Rate 0 01/23/19 07:12 Pain Level 0 01/23/19 07:12 [facility] Medical History Actinic keratosis (Chronic) Anemia (Chronic) Benign essential tremor (Chronic) BRCA2 positive (Chronic) Breast cancer, stage 1 (Chronic) Dehydration (Chronic) GERD (gastroesophageal reflux disease) (Chronic) H/O ovarian cancer (Chronic) H/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) H/O renal cell cancer (Chronic) HTN (hypertension) (Chronic) Incisional hernia (Resolved) Incisional hernia of anterior abdominal wall with obstruction (Acute) IT band syndrome (Chronic) Neutropenia (Chronic) Obesity (Chronic) Osteopenia (Chronic) Pulmonary embolism (Chronic) S/p nephrectomy (Resolved 11/02/16) Seborrheic keratoses (Chronic) Stage 3 chronic kidney disease (Chronic) Upper abdominal pain, unspecified (Acute) Ventral hernia (Resolved) Surgical History H/O partial cystectomy (Resolved) H/O right nephrectomy (Acute) History of appendectomy (Resolved) History of bowel resection (Resolved) S/P hysterectomy with oophorectomy (Resolved) S/P recurrent ventral herniorrhaphy (Acute 07/17/18) S/P TKR (total knee replacement) (Resolved) Status post cataract extraction and insertion of intraocular lens of left eye (Chronic 04/09/18) Status post cataract extraction and insertion of intraocular lens of right eye (Chronic 04/23/18) Social History Smoking/Tobacco Use Status: Never Alcohol Intake: never Drug use: Never Substance use type: does not use Do you feel safe at home: Yes Do you feel safe in your relationship?: Yes Additional Social history: unable to assess privately
== END 2019-01-23 10:37 | disposition home or self-care (01) | DRG 392 ==
LOC: ER 08:15 → MS 09:34
PROVIDERS: Admitting Provider Surgery; Emergency Provider Emergency Medicine; PCP Family Medicine; Visit Provider Surgery
DX: R10.10 Upper abdominal pain, unspecified (principal); R11.2 Nausea with vomiting, unspecified; I12.9 Hypertensive chronic kidney disease with stage 1 through stage 4 chronic kidney disease, or unspecified chronic kidney disease; N18.9 Chronic kidney disease, unspecified
CPT/HCPCS: 36415; 80053; 83690; 96361; 96374; 96375; 99223; 99232; 99239; 99285; NC; 74176; 83735; 85025; 99284; J2270; J2405

== ENCOUNTER 2019-04-10 00:49 | Observation (INO) | payer MEDICARE, OTHER, SELFPAY ==
[2019-04-10] VITALS (70 sets, daily range): BP systolic 102–161; BP diastolic 28–77; PULSE 52–94; RESP 16–20; TEMP 36.3–36.7; O2SAT 91–100
--- NOTE | 2019-04-10 01:03 | ED.GENADUL_ITS ---
Discharge Plan Disposition Patient Disposition: [facility] INPATIENT Condition: Fair Discharge Details Chief Complaint: Abd Prob Clinical Impression: Abdominal pain, Vomiting Primary Care Provider: Dulce Hidalgo ED Provider: Vasquez Virgen [place] Meds and New Rx's Prescriptions: No Action cetirizine [Zyrtec] 10 mg tablet 10 mg PO DAILY PRNRF: 0 polyethylene glycol 3350 [Miralax] 17 gram/dose powder 17 gm PO DAILY RF: 0 omeprazole 20 mg capsule,delayed release(DR/EC) 20 mg PO BID RF: 0 acidophilus-pectin, citrus [Acidophilus Probiotic] 100 million cell-10 mg capsule 1 cap PO DAILY RF: 0 acetaminophen [Tylenol Extra Strength] 500 mg tablet 500 mg PO PRN RF: 0 alum-mag hydroxide-simeth 200-200-20 mg/5 mL suspension 10 ml PO QHS RF: 0 simvastatin 10 MG tablet 10 mg PO DAILY RF: 0 atenolol 50 MG tablet 50 mg PO DAILY RF: 0 calcium carb and citrate-vitD3 [Citracal + D Slow Release] 1 EACH tablet extended release 1 tab PO DAILY RF: 0 hydrochlorothiazide 25 MG tablet 25 mg PO DAILY RF: 0 cyanocobalamin (vitamin B-12) [Vitamin B-12] 1,000 mcg Tablet 1,000 mcg PO DAILY RF: 0 bisacodyl [Dulcolax (bisacodyl)] 5 mg Tablet,Delayed Release (Dr/Ec) 5 mg PO DAILY PRNRF: 0 magnesium oxide 400 mg Capsule 400 mg PO DAILY RF: 0 fluticasone propionate [Flonase Allergy Relief] 50 mcg/actuation spray,suspension 2 spray INTRANASAL DAILY PRNRF: 0 Xarelto 10 mg Tablet 10 mg PO DAILY RF: 0 Medical Decision Making I have reviewed the patient's previous records from her visit here. She has had multiple CT scans this year. They have typically shown dilatation of proximal small bowel but no definitive obstruction. In reviewing her hospital stays she is typically been better in less than 24 hours. It is felt in discussion with the patient and reviewing notes that these likely are partial small bowel. She has never had to have any procedures for this other than ventral hernia repair earlier this year. Given this information, will place IV and give fluids, Phenergan, morphine and GI cocktail. Will check laboratory studies. Will hold off on imaging for now. 02:45 - Patient is feeling better. She is tolerating ice chips. Labs are fine (renal studies are baseline.) Plan will be to continue hydration here in the emergency department. We will let her continue ice chips and clear liquids. Will evaluate in the morning and if any questions will contact Dr. Paz then. 07:15 - Patient requiring morphine every 2 to 2.5 hours. Tolerating ice chips but that is it. Some nausea but no further vomiting. Discussed with Dr. Paz. Will get abdominal x-rays and admit. Medical Records Medical records reviewed: Yes I reviewed the patient's medical records. Lab Data Lab results reviewed: Yes I reviewed the patient's lab results. HPI General Date/Time Provider Initiated Documentation: 04/10/19 01:03 . Limitations to Documentation: no limitations . Information obtained by: patient, RN notes reviewed and old records reviewed . HPI Narrative: Patient presents to ED with upper abdominal pain, nausea and vomiting. Patient has had multiple presentations with observation admit for same. CT scans have shown possible partial small bowel obstructions. However, she usually is better within 24 hours if not sooner. She had a large bowel movement on Monday. She has not had a bowel movement or really passed much gas since. She started to have some pain over the weekend but after the bowel movement it got better so she thought she was okay. She seemed to do all right Monday. Started to eat today and this evening developed severe pain, nausea and vomiting. She denies chest pain or shortness of breath. She denies hematemesis. She has had multiple abdominal surgeries and is known both to [facility] surgical team as well as Dr. Paz here. Related Data Home Medications Medication Instructions Recorded Confirmed atenolol 50 mg PO DAILY 11/30/13 04/10/19 calcium carb and citrate-vitD3 1 tab PO DAILY 11/30/13 04/10/19 [Citracal + D Slow Release] simvastatin 10 mg PO DAILY 11/30/13 04/10/19 hydrochlorothiazide 25 mg PO DAILY 12/21/17 04/10/19 bisacodyl [Dulcolax (bisacodyl)] 5 mg PO DAILY PRN 04/04/18 04/10/19 cyanocobalamin (vitamin B-12) 1,000 mcg PO DAILY 04/04/18 04/10/19 [Vitamin B-12] magnesium oxide 400 mg PO DAILY 04/04/18 04/10/19 cetirizine 10 mg tablet 10 mg PO DAILY PRN tab 07/27/18 04/10/19 fluticasone propionate 50 2 spray INTRANASAL DAILY PRN 07/27/18 04/10/19 mcg/actuation nasal spray,suspension Xarelto 10 mg PO DAILY 08/26/18 04/10/19 acetaminophen 500 mg tablet 500 mg PO PRN tab 09/21/18 04/10/19 acidophilus 100 million 1 cap PO DAILY cap 09/21/18 04/10/19 cell-pectin, citrus 10 mg capsule aluminum-mag hydroxide-simethicone 10 ml PO QHS ml 09/21/18 04/10/19 200 mg-200 mg-20 mg/5 mL oral susp omeprazole 20 mg capsule,delayed 20 mg PO BID cap 09/21/18 04/10/19 release polyethylene glycol 3350 17 17 gm PO DAILY 09/21/18 04/10/19 gram/dose oral powder Allergies Allergy/AdvReac Type Severity Reaction Status Date / Time latex Allergy Mild Verified 04/10/19 01:06 Sulfa (Sulfonamide AdvReac Severe liver Verified 04/10/19 01:06 Antibiotics) damage ciprofloxacin [From Cipro] AdvReac Intermediate unknown Verified 04/10/19 01:06 glucosamine AdvReac Intermediate Nausea Verified 04/10/19 01:06 glue on bandaids Allergy Mild rash Uncoded 04/10/19 01:06 Epideral Dressing AdvReac Severe Blistering Uncoded 04/10/19 01:06 General Stated Complaint: Abd Prob SADIE: 3 Review of Systems Narrative: 03/25 Review of Systems completed and is negative except as stated above in HPI (Systems reviewed: Const, Eyes, ENT, Resp, CV, GI, , MSK, Skin, Neuro) [facility] Medical History Actinic keratosis (Chronic) Anemia (Chronic) Benign essential tremor (Chronic) BRCA2 positive (Chronic) Breast cancer, stage 1 (Chronic) Dehydration (Chronic) GERD (gastroesophageal reflux disease) (Chronic) H/O ovarian cancer (Chronic) H/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) H/O renal cell cancer (Chronic) HTN (hypertension) (Chronic) Incisional hernia (Resolved) 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 Obesity (Chronic) Osteopenia (Chronic) Pulmonary embolism (Chronic) Seborrheic keratoses (Chronic) Stage 3 chronic kidney disease (Chronic) Ventral hernia (Resolved) Surgical History H/O partial cystectomy (Resolved) H/O right nephrectomy (Acute) Right, with partial uretectomy, Dr Ariel Do History of appendectomy (Resolved) unknown date History of bowel resection (Resolved) partial, unknown date S/P hysterectomy with oophorectomy (Resolved) S/P recurrent ventral herniorrhaphy (Acute 07/17/18) Dr Michael Carroll, [facility] S/P TKR (total knee replacement) (Resolved) Status post cataract extraction and insertion of intraocular lens of left eye (Chronic 04/09/18) Status post cataract extraction and insertion of intraocular lens of right eye (Chronic 04/23/18) Social History Smoking/Tobacco Use Status: Never Alcohol Intake: never Drug use: Never Substance use type: does not use Do you feel safe at home: Yes Do you feel safe in your relationship?: Yes Additional Social history: unable to assess privately Exam Narrative Exam Narrative: Vitals: Afebrile. Elevated blood pressure. Otherwise normal vitals and normal room air pulse ox. Const: Obese female in NAD. HEENT: NC/AT. Normal facial exam. Eyes: Normal conjunctiva and sclera. Neck: Supple. Trachea midline. Lungs: Normal respiratory effort. Lungs are clear. Cor: RRR without murmur/gallop. Good radial pulses. GI: Soft and non-distended. No tenderness elicited to palpation, complains of pain in RUQ. Neuro: A+O x 3. CN grossly in tact. Good strength and no focal deficit. Ext: No C/C/E. Skin: Warm and dry without rash. Course Vital Signs Vital signs: Vital Signs Temperature 97.3 F L 04/10/19 00:55 Respiratory Rate 66 H 04/10/19 00:55 Blood Pressure 157/64 H 04/10/19 00:55 Pulse Oximetry 97 04/10/19 00:55 Temperature 97.3 F L 04/10/19 00:55 Temperature Source Tympanic 04/10/19 00:55 Respiratory Rate 66 H 04/10/19 00:55 Blood Pressure 157/64 H 04/10/19 00:55 Pulse Oximetry 97 04/10/19 00:55 Oxygen Delivery Method Room Air 04/10/19 00:55 Oxygen Flow Rate 0 04/10/19 00:55 Pain Level 10 04/10/19 00:55
[2019-04-10 01:19] LABS: Abs Immature Grans 0.01 k/cumm (0.0-0.09); Absolute Basophil Count 0.01 k/cumm (0.0-0.2); Absolute Eosinophil Count 0.12 k/cumm (0.0-0.7); Absolute Lymphocyte Count 1.62 k/cumm (1.2-3.4); Absolute Monocyte Count 0.51 k/cumm (0.11-0.7); Absolute Neutrophil Count 5.63 k/cumm (1.2-6.7); Basophils % 0.1; Eosinophils % 1.5; HGB 13.2 g/dL (12.0-15.5); Immature Grans % 0.1; Lymphocytes % 20.5; Mean Corpuscular Hemoglobin 28.9 pg (27.0-33.0); Mean Corpuscular Volume 87.5 fL (80-95); Mean Platelet Volume 10.7 fL (8.0-11.0); Monocytes % 6.5; Neutrophils % 71.3; Platelet Count 238 x1000/uL (130-400); RBC 4.57 m/cumm (4.00-5.20); RBC Distribution Width 15.9 % (11.7-14.6)
[2019-04-10] MEDS: Lactated Ringers 1,000 ML 125 ML IV ×3 (01:19→17:40)
[2019-04-10 01:30] LABS: ALT 22 U/L (14-59); AST 19 U/L (15-37); Albumin 3.7 g/dL (3.4-5.0); Alkaline Phosphatase 102 U/L (46-116); Anion Gap 9.1 mmol/L (3-11); BUN 23 mg/dL (7-18); Bilirubin, Total 0.4 mg/dL (0.2-1.0); CO2 27.9 mmol/L (21.0-32.0); CREATININE 1.57 mg/dL (0.55-1.02); Calcium 9.5 mg/dL (8.5-10.1); Chloride 100 mmol/L (98-107); Estimated GFR 32.03 (mL/min/1.73m2); Glucose 160 mg/dL (70-100); Lipase 49 U/L (73-393); Potassium 3.5 mmol/L (3.5-5.1); Sodium 137 mmol/L (136-145); Total Protein 7.8 g/dL (6.4-8.2)
--- NOTE | 2019-04-10 01:56 | NUR.NOTE ---
Nursing Note: Pt chewing on ice chips pain is gone.
--- NOTE | 2019-04-10 07:16 | DI.RAD_ITS ---
EXAM: XR ABDOMEN FLAT UPRIGHT INDICATION: abdominal pain and vomiting. COMPARISON: XR abdomen flat upright from 10/28/2018 TECHNIQUE: 2D digital imaging was performed. FINDINGS: There are a few nonspecific dilated loops of small bowel present. There is air seen within the colon . There is a normal amount of stool seen throughout the colon. Ovoid densities are seen in the righ t lower quadrant and appear to lie within the bowel. These likely reflect ingested pills. No pneumo peritoneum or organomegaly is present. Surgical material is seen in the abdomen. This is unchanged. Degenerative changes are present in the spine. There is an unchanged compression deformity of the L4 vertebral body. IMPRESSION: Mildly dilated loops of small bowel. This may represent a partial small bowel obstruction versus ile us.
--- NOTE | 2019-04-10 08:01 | DI.VRAD_ITS ---
PROCEDURE INFORMATION: Exam: XR Abdomen, 2 Views Exam date and time: 04/10/2019 7:38 AM Clinical history: 78 years old, female; Other: Abdominal pain and vomiting TECHNIQUE: Imaging protocol: XR of the abdomen. Frontal supine and upright views of the abdomen. Views: 2 Views. COMPARISON: CR XR abdomen flat upright 10/28/2018 8:08 AM FINDINGS: Gastrointestinal tract: Multiple oval densities are seen over the right lower quadrant of the abdomen and appearance of ingested pills. A few small bowel air-fluid levels are present with some distention of a few loops of small bowel. The bowel gas pattern is normal. No dilation. Intraperitoneal space: Surgical clips are seen over the abdomen bilaterally, a finding also present on the previous study. Organs: There are no abdominal masses identified. There are no renal or biliary calculi demonstrated. Bones/joints: There is spondylosis of the spine. Unremarkable. IMPRESSION: Early versus partial small bowel obstruction. Status post abdominal surgery. Dictated and Authenticated by: Griffin Sinha MD. Ordering:MEHRAN Ovalle MD
[2019-04-10] MEDS: Normal Saline Flush 10 ML SYR IVP (08:52)
[2019-04-10] MEDS: Pantoprazole 40 MG VIAL IVP (08:52)
--- NOTE | 2019-04-10 09:00 | HPE_ITS ---
Date of service: 04/10/19 Time of Service: 09:00 Assessment and Plan Assessment and plan (1) Small bowel obstruction: Status: Acute Assessment and plan: Patient's complaints of abdominal pain, nausea and vomiting have improved since receiving Zofran and morphine. Discussed that if the vomiting returns may need to consider NG tube placement. Admission for IV fluids and bowel rest. She has had previous admissions (most recent being on 01/22-01/25 and also back on 10/27-10/28) with similar symptoms, w hich were amendable with this treatment. Spoke with Ms. Aguiar and her significant other and they are agreeable to this treatment plan. History of Present Illness History of Present Illness Chief Complaint: Nausea, Vomiting and Abdominal Pain Narrative: 78 y/o female with history of numerous abdominal surgeries, HTN, GERD, and several admissions of small bowel obstructions presents with complaints of nausea, vomiting and abdominal pain since late Monday night/early Monday morning. She reports that she took Zofran at home with minimal relief of her symptoms. She came into the ER and was given Zofran and Morphine with cessation of her vomiting and improvement in her abdominal pain. She reports her last BM was on Mon (04/08). She denies any other associated symptoms to include fevers or chills. Review of Systems Constitutional Constitutional: Denies chills, Denies excessive sweating, Denies fatigue and Denies night sweats Cardiovascular Cardiovascular: Denies dyspnea Respiratory Respiratory: Denies cough, Denies dyspnea and Denies wheezing Gastrointestinal Gastrointestinal: Reports abdominal pain (comes in waves), Denies change in bowel habits, Reports nausea and Reports vomiting Endocrine Endocrine: Denies excessive sweating and Denies fatigue Allergic/Immunologic Allergic/Immunologic: Denies wheezing [facility] Medical History Actinic keratosis (Chronic) Anemia (Chronic) Benign essential tremor (Chronic) BRCA2 positive (Chronic) Breast cancer, stage 1 (Chronic) Dehydration (Chronic) GERD (gastroesophageal reflux disease) (Chronic) H/O ovarian cancer (Chronic) H/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) H/O renal cell cancer (Chronic) HTN (hypertension) (Chronic) Incisional hernia (Resolved) 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 Obesity (Chronic) Osteopenia (Chronic) Pulmonary embolism (Chronic) Seborrheic keratoses (Chronic) Stage 3 chronic kidney disease (Chronic) Ventral hernia (Resolved) Surgical History H/O partial cystectomy (Resolved) H/O right nephrectomy (Acute) Right, with partial uretectomy, Dr Ariel Do History of appendectomy (Resolved) unknown date History of bowel resection (Resolved) partial, unknown date S/P hysterectomy with oophorectomy (Resolved) S/P recurrent ventral herniorrhaphy (Acute 07/17/18) Dr Michael Carroll, [facility] S/P TKR (total knee replacement) (Resolved) Status post cataract extraction and insertion of intraocular lens of left eye (Chronic 04/09/18) Status post cataract extraction and insertion of intraocular lens of right eye (Chronic 04/23/18) Social History Smoking/Tobacco Use Status: Never Alcohol Intake: never Drug use: Never Substance use type: does not use Do you feel safe at home: Yes Do you feel safe in your relationship?: Yes Additional Social history: unable to assess privately Meds Home Medications and Allergies Home Medications Medication Instructions Recorded Confirmed Type atenolol 50 mg PO DAILY 11/30/13 04/10/19 History calcium carb and citrate-vitD3 1 tab PO DAILY 11/30/13 04/10/19 History [Citracal + D Slow Release] simvastatin 10 mg PO DAILY 11/30/13 04/10/19 History hydrochlorothiazide 25 mg PO DAILY 12/21/17 04/10/19 History bisacodyl [Dulcolax (bisacodyl)] 5 mg PO DAILY PRN 04/04/18 04/10/19 History cyanocobalamin (vitamin B-12) 1,000 mcg PO DAILY 04/04/18 04/10/19 History [Vitamin B-12] magnesium oxide 400 mg PO DAILY 04/04/18 04/10/19 History cetirizine 10 mg tablet 10 mg PO DAILY PRN tab 07/27/18 04/10/19 History fluticasone propionate 50 2 spray INTRANASAL DAILY PRN 07/27/18 04/10/19 History mcg/actuation nasal spray,suspension Xarelto 10 mg PO DAILY 08/26/18 04/10/19 History acetaminophen 500 mg tablet 500 mg PO PRN tab 09/21/18 04/10/19 History acidophilus 100 million 1 cap PO DAILY cap 09/21/18 04/10/19 History cell-pectin, citrus 10 mg capsule aluminum-mag hydroxide-simethicone 10 ml PO QHS ml 09/21/18 04/10/19 History 200 mg-200 mg-20 mg/5 mL oral susp omeprazole 20 mg capsule,delayed 20 mg PO BID cap 09/21/18 04/10/19 History release polyethylene glycol 3350 17 17 gm PO DAILY 09/21/18 04/10/19 History gram/dose oral powder Allergies Allergy/AdvReac Type Severity Reaction Status Date / Time latex Allergy Mild Verified 04/10/19 01:06 Sulfa (Sulfonamide AdvReac Severe liver Verified 04/10/19 01:06 Antibiotics) damage ciprofloxacin [From Cipro] AdvReac Intermediate unknown Verified 04/10/19 01:06 glucosamine AdvReac Intermediate Nausea Verified 04/10/19 01:06 glue on bandaids Allergy Mild rash Uncoded 04/10/19 01:06 Epideral Dressing AdvReac Severe Blistering Uncoded 04/10/19 01:06 Exam Const General: cooperative, healthy appearing and in distress mild Orientation: alert and oriented x3 Resp Effort & Inspection: normal respiratory effort, no audible wheezes and no cough GI Inspection: normal to inspection, non-distended and obesity Palpation: soft, no guarding and tender in the RLQ and periumbilically Auscultation: hypoactive bowel sounds Skin General skin exam: no rashes or lesions noted Results Labs Result diagrams: 04/10/19 01:10 04/10/19 01:10 Labs: Laboratory Results - last 24 hr 04/10/19 04/10/19 01:10 01:10 WBC 7.90 RBC 4.57 Hgb 13.2 Hct 40.0 MCV 87.5 MCH 28.9 MCHC 33.0 RDW 15.9 H Plt Count 238 MPV 10.7 Immature Gran % 0.1 Neutrophils % 71.3 Lymphocytes % 20.5 Monocytes % 6.5 Eosinophils % 1.5 Basophils % 0.1 Absolute Neutrophils 5.63 Absolute Lymphocytes 1.62 Absolute Monocytes 0.51 Absolute Eosinophils 0.12 Absolute Basophils 0.01 Sodium 137 Potassium 3.5 Chloride 100 Carbon Dioxide 27.9 Anion Gap 9.1 BUN 23 H Creatinine 1.57 H Estimated GFR/1.73 m2 32.03 Glucose 160 H Calcium 9.5 Total Bilirubin 0.4 AST 19 ALT 22 Alkaline Phosphatase 102 Total Protein 7.8 Albumin 3.7 Lipase 49 L Last Vital Signs Temp 36.7 C 04/10/19 08:20 Pulse 59 L 04/10/19 08:20 Resp 18 04/10/19 08:20 BP 143/77 H 04/10/19 08:20 Pulse Ox 91 L 04/10/19 08:20
[2019-04-10] MEDS: ACETAMINOPHEN 1,000 MG/100 ML BTL 400 MG IVPB (09:09)
[2019-04-10] MEDS: Rivaroxaban 10 MG TABLET PO (10:33)
[2019-04-10] MEDS: Bisacodyl 10 MG SUPP PR (12:22)
--- NOTE | 2019-04-10 15:54 | CHAPLAIN ---
Isaura was resting in bed when I visited. Her was with her. She has been uncomfortable, but said she knows this will pass, and I'll be okay for a few more months. I wanted a long time to come it. I will continue to visit.
[2019-04-11] MEDS: Lactated Ringers 1,000 ML 125 ML IV ×2 (01:20→09:32)
[2019-04-11 07:40] VITALS: BP 147/53; PULSE 52; RESP 16; TEMP 36.3; O2SAT 100
[2019-04-11] MEDS: Normal Saline Flush 10 ML SYR IVP (07:47)
[2019-04-11] MEDS: Rivaroxaban 10 MG TABLET PO (07:48)
[2019-04-11] MEDS: Pantoprazole 40 MG VIAL IVP (07:48)
--- NOTE | 2019-04-11 08:45 | W.PM.PROGNOT ---
Documented by User: LB Russ 04/11/19 08:47 Date of Service Date of service: 04/11/19 Time of Service: 08:45 Assessment and Plan Assessment and plan (1) Small bowel obstruction: Status: Acute Assessment and plan: Patient is feeling much better today. Denies any abdominal pain. (+) BMs and flatus. Tolerated liquid diet will progress to soft diet this morning. If tolerating soft diet possible D/C home later today. Subjective Subjective Interval history since last seen: Patient reports that she had BMs x 2 yesterday and her abdominal pain has resolved. She tolerated clear liquid diet over night. Exam Const General: cooperative, healthy appearing and comfortable Resp Effort & Inspection: normal respiratory effort, no audible wheezes and no cough GI Inspection: normal to inspection and non-distended Objective Objective Clinical Data: Vital Signs Temperature 36.3 C L 04/11/19 07:40 Temperature Source Tympanic 04/11/19 07:40 Pulse 52 L 04/11/19 07:40 Pulse Rhythm Regular 04/11/19 07:50 Respiratory Rate 16 04/11/19 07:40 Respiratory Effort Non-Labored 04/11/19 07:50 Respiratory Depth Normal 04/11/19 07:50 Respiratory Pattern Normal 04/11/19 07:50 Blood Pressure 147/53 H 04/11/19 07:40 Blood Pressure Mean 60 04/10/19 07:17 Pulse Oximetry 100 04/11/19 07:40 Oxygen Delivery Method Room Air 04/11/19 07:40 Oxygen Flow Rate 0 04/11/19 07:40 Pain Level 0 04/11/19 07:40 Intake & Output 04/10/19 04/11/19 04/11/19 18:59 06:59 18:59 Intake Total 1999 / 2958.333 958.333 / 2958.333 100 / 100 Output Total 400 / 400 Balance 1600 / 2558.333 958.333 / 2558.333 100 / 100 Weight 120.2 kg Intake: IV 1999 / 2958.333 958.333 / 2958.333 100 / 100 Output: Urine 400 / 400 Other: Urine Color Yellow Urine Appearance Clear Comment pt voiding independently Stool Size Small Stool Characteristics Soft Formed Voiding Methods Toilet Toilet Laboratory Results WBC 7.90 k/cumm (4.4-10.8) 04/10/19 01:10 RBC 4.57 m/cumm (4.00-5.20) 04/10/19 01:10 Hgb 13.2 g/dL (12.0-15.5) 04/10/19 01:10 Hct 40.0 % (36.0-46.0) 04/10/19 01:10 MCV 87.5 fL (80-95) 04/10/19 01:10 MCH 28.9 pg (27.0-33.0) 04/10/19 01:10 MCHC 33.0 g/dL (32.0-36.0) 04/10/19 01:10 RDW 15.9 % (11.7-14.6) H 04/10/19 01:10 Plt Count 238 x1000/uL (130-400) 04/10/19 01:10 MPV 10.7 fL (8.0-11.0) 04/10/19 01:10 Immature Gran % 0.1 04/10/19 01:10 Neutrophils % 71.3 04/10/19 01:10 Lymphocytes % 20.5 04/10/19 01:10 Monocytes % 6.5 04/10/19 01:10 Eosinophils % 1.5 04/10/19 01:10 Basophils % 0.1 04/10/19 01:10 Absolute Neutrophils 5.63 k/cumm (1.2-6.7) 04/10/19 01:10 Absolute Lymphocytes 1.62 k/cumm (1.2-3.4) 04/10/19 01:10 Absolute Monocytes 0.51 k/cumm (0.11-0.7) 04/10/19 01:10 Absolute Eosinophils 0.12 k/cumm (0.0-0.7) 04/10/19 01:10 Absolute Basophils 0.01 k/cumm (0.0-0.2) 04/10/19 01:10 Sodium 137 mmol/L (136-145) 04/10/19 01:10 Potassium 3.5 mmol/L (3.5-5.1) 04/10/19 01:10 Chloride 100 mmol/L (98-107) 04/10/19 01:10 Carbon Dioxide 27.9 mmol/L (21.0-32.0) 04/10/19 01:10 Anion Gap 9.1 mmol/L (3-11) 04/10/19 01:10 BUN 23 mg/dL (7-18) H 04/10/19 01:10 Creatinine 1.57 mg/dL (0.55-1.02) H 04/10/19 01:10 Estimated GFR/1.73 m2 32.03 (mL/min/1.73m2) 04/10/19 01:10 Glucose 160 mg/dL (70-100) H 04/10/19 01:10 Calcium 9.5 mg/dL (8.5-10.1) 04/10/19 01:10 Total Bilirubin 0.4 mg/dL (0.2-1.0) 04/10/19 01:10 AST 19 U/L (15-37) 04/10/19 01:10 ALT 22 U/L (14-59) 04/10/19 01:10 Alkaline Phosphatase 102 U/L (46-116) 04/10/19 01:10 Total Protein 7.8 g/dL (6.4-8.2) 04/10/19 01:10 Albumin 3.7 g/dL (3.4-5.0) 04/10/19 01:10 Lipase 49 U/L (73-393) L 04/10/19 01:10 Documented by User: Kenyatta Nance DO 04/11/19 16:03 Assessment and Plan Assessment and plan (1) Small bowel obstruction: Status: Acute Assessment and plan: pt seen and examined dong well. had soft diet for lunch and feels good. no pain. + flatus BM earlier today if tolerates dinner- no nausea/bloating/pain- than can d/c home F/u PCP prn follow soft bland diet at home if increase pain/nausea/distention- return to ED
[2019-04-11 15:04] VITALS: BP 123/55; PULSE 64; RESP 16; TEMP 36.5; O2SAT 96
--- NOTE | 2019-04-11 16:03 | DSE_ITS ---
Date of service: 04/11/19 Time of Service: 16:03 DS: Diagnosis Discharge Diagnosis (1) Small bowel obstruction: Status: Acute Discharge Plan Disposition Patient Disposition: HOME Condition: Fair Discharge Details Chief Complaint: Abd Prob Clinical Impression: Abdominal pain, Vomiting Reason For Visit: PSBO Admit Date/Time: 04/10/19 07:16 Admit Provider: Merced Paz Attending Provider: Merced Paz Primary Care Provider: Dulce Hidalgo ED Provider: Vasquez Virgen [facility] Course Hospital Course: pt admitted w/ SBO- hx of prior SBO. Has had extensive Sx in past. PT has done well. At this time she is toerating a soft diet, has no pain or distention adn has had a BM. She will be d/c'ed homeif she tolerates dinner. cont on a bland dietuse mirlax dialy. if any increase in pain/blaoting/N or V- return to ED Home Meds and New Rx's Prescriptions: Continued cetirizine [Zyrtec] 10 mg tablet 10 mg PO DAILY PRNRF: 0 polyethylene glycol 3350 [Miralax] 17 gram/dose powder 17 gm PO DAILY RF: 0 omeprazole 20 mg capsule,delayed release(DR/EC) 20 mg PO BID RF: 0 acidophilus-pectin, citrus [Acidophilus Probiotic] 100 million cell-10 mg capsule 1 cap PO DAILY RF: 0 acetaminophen [Tylenol Extra Strength] 500 mg tablet 500 mg PO PRN RF: 0 alum-mag hydroxide-simeth 200-200-20 mg/5 mL suspension 10 ml PO QHS RF: 0 simvastatin 10 MG tablet 10 mg PO DAILY RF: 0 atenolol 50 MG tablet 50 mg PO DAILY RF: 0 calcium carb and citrate-vitD3 [Citracal + D Slow Release] 1 EACH tablet extended release 1 tab PO DAILY RF: 0 hydrochlorothiazide 25 MG tablet 25 mg PO DAILY RF: 0 cyanocobalamin (vitamin B-12) [Vitamin B-12] 1,000 mcg Tablet 1,000 mcg PO DAILY RF: 0 bisacodyl [Dulcolax (bisacodyl)] 5 mg Tablet,Delayed Release (Dr/Ec) 5 mg PO DAILY PRNRF: 0 magnesium oxide 400 mg Capsule 400 mg PO DAILY RF: 0 fluticasone propionate [Flonase Allergy Relief] 50 mcg/actuation spray,suspension 2 spray INTRANASAL DAILY PRNRF: 0 Xarelto 10 mg Tablet 10 mg PO DAILY RF: 0 Discharge Instructions Additional Instructions: fluids- stay hydrating 8-12 glasses of water daily continue Miralax daily soft diet If increase in abdominal pain/bloating, Nausea or vomting- return to ED. Activity:: no lifting over 20#'s or strenuous activity. walking is encouraged Equipment/Supplies:: No Equipment Needed Diet:: Other DS: Summary Status at Discharge Functional status at discharge: independent ambulation Overall status at discharge: patient is back to baseline Mental Status: mental status grossly normal Speech and Movement: speech and movement normal Mood: congruent mood Affect: normal affect Exam Psych Mental Status: mental status grossly normal Speech and Movement: speech and movement normal Mood: congruent mood Affect: normal affect DS: Data Vitals/I&O Vitals and I&O: Vital Signs Temperature 36.5 C 04/11/19 15:04 Temperature Source Tympanic 04/11/19 15:04 Pulse 64 04/11/19 15:04 Pulse Rhythm Regular 04/11/19 07:50 Respiratory Rate 16 04/11/19 15:04 Respiratory Effort Non-Labored 04/11/19 07:50 Respiratory Depth Normal 04/11/19 07:50 Respiratory Pattern Normal 04/11/19 07:50 Blood Pressure 123/55 L 04/11/19 15:04 Blood Pressure Mean 60 04/10/19 07:17 Pulse Oximetry 96 04/11/19 15:04 Oxygen Delivery Method Room Air 04/11/19 15:04 Oxygen Flow Rate 0 04/11/19 15:04 Pain Level 0 04/11/19 15:04 Intake & Output 04/10/19 04/11/19 04/11/19 23:59 11:59 23:59 Intake Total 999.5 2057. / Balance 999.5 Intake: IV 999. 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 Obesity (Chronic) Osteopenia (Chronic) Pulmonary embolism (Chronic) Seborrheic keratoses (Chronic) Stage 3 chronic kidney disease (Chronic) Ventral hernia (Resolved) Surgical History H/O partial cystectomy (Resolved) H/O right nephrectomy (Acute) Right, with partial uretectomy, Dr Ariel Do History of appendectomy (Resolved) unknown date History of bowel resection (Resolved) partial, unknown date S/P hysterectomy with oophorectomy (Resolved) S/P recurrent ventral herniorrhaphy (Acute 07/17/18) Dr Micahel Carroll, [facility] S/P TKR (total knee replacement) (Resolved) Status post cataract extraction and insertion of intraocular lens of left eye (Chronic 04/09/18) Status post cataract extraction and insertion of intraocular lens of right eye (Chronic 04/23/18) Social History Smoking/Tobacco Use Status: Never Alcohol Intake: never Drug use: Never Substance use type: does not use Do you feel safe at home: Yes Do you feel safe in your relationship?: Yes Additional Social history: unable to assess privately
--- NOTE | 2019-04-11 19:31 | PDOC.CMDIS ---
- If Service Date Differs Date of service: 04/11/19 Time of Service: 19:31 LACE Index Scoring Tool - Questions: Length of Stay (in days): 1 Acuity (Admit via E.D.?): Yes Comorbidities: Any Tumor, Liver or Renal Disease E.D. Visits: 6 - Answers: Total Score: 13 Risk of Readmission: High Risk Care Management Discharge Reason for Hospitalization: SBO Discharge Plan: Isaura will be discharged home with no new services. She will follow up with her surgeon and discharge plan of care. She will transport via [employer] vehicle with her . Patient/Family Education Needs: Discharge plan, limitations, follow up plan, Ask Me Three.
== END 2019-04-11 18:22 | disposition home or self-care (01) ==
LOC: ER 08:00 → MS 08:11
PROVIDERS: Admitting Provider Surgery; Emergency Provider Emergency Medicine; PCP Family Medicine; Visit Provider Surgery
DX: K56.609 Unspecified intestinal obstruction, unspecified as to partial versus complete obstruction (principal); K21.9 Gastro-esophageal reflux disease without esophagitis; N18.3 Chronic kidney disease, stage 3 (moderate); I12.9 Hypertensive chronic kidney disease with stage 1 through stage 4 chronic kidney disease, or unspecified chronic kidney disease
CPT/HCPCS: 36415; 80053; 83690; 96361; 96365; 96375; 99222; 99223; 99233; 99238; 99285; 74019; 85025; 99284; G0378; J0131

== ENCOUNTER 2019-05-16 00:34 | Emergency (ER) | payer MEDICARE, OTHER, SELFPAY ==
[2019-05-16] VITALS (13 sets, daily range): BP systolic 100–160; BP diastolic 55–110; PULSE 57–82; RESP 9–23; TEMP 36.2–36.8; O2SAT 95–100
--- NOTE | 2019-05-16 00:39 | ED.GENADUL_ITS ---
Discharge Plan Disposition Patient Disposition: HOME Condition: Good Discharge Details Chief Complaint: Nausea/Vomit/Diar Clinical Impression: Nausea & vomiting Primary Care Provider: Dulce Hidalgo ED Provider: Jakob Matthew Home Meds and New Rx's Prescriptions: No Action cetirizine [Zyrtec] 10 mg tablet 10 mg PO DAILY PRNRF: 0 polyethylene glycol 3350 [Miralax] 17 gram/dose powder 17 gm PO DAILY RF: 0 omeprazole 20 mg capsule,delayed release(DR/EC) 20 mg PO BID RF: 0 acidophilus-pectin, citrus [Acidophilus Probiotic] 100 million cell-10 mg capsule 1 cap PO DAILY RF: 0 acetaminophen [Tylenol Extra Strength] 500 mg tablet 500 mg PO PRN RF: 0 alum-mag hydroxide-simeth 200-200-20 mg/5 mL suspension 10 ml PO QHS RF: 0 simvastatin 10 MG tablet 10 mg PO DAILY RF: 0 atenolol 50 MG tablet 50 mg PO DAILY RF: 0 calcium carb and citrate-vitD3 [Citracal + D Slow Release] 1 EACH tablet extended release 1 tab PO DAILY RF: 0 hydrochlorothiazide 25 MG tablet 25 mg PO DAILY RF: 0 cyanocobalamin (vitamin B-12) [Vitamin B-12] 1,000 mcg Tablet 1,000 mcg PO DAILY RF: 0 bisacodyl [Dulcolax (bisacodyl)] 5 mg Tablet,Delayed Release (Dr/Ec) 5 mg PO DAILY PRNRF: 0 magnesium oxide 400 mg Capsule 400 mg PO DAILY RF: 0 fluticasone propionate [Flonase Allergy Relief] 50 mcg/actuation spray,suspension 2 spray INTRANASAL DAILY PRNRF: 0 Xarelto 10 mg Tablet 10 mg PO DAILY RF: 0 Discharge Instructions Instructions: Acute Nausea and Vomiting (ED) Additional Instructions: At this time you do not yet show signs of an intestinal obstruction. You have been able to tolerate liquids well. I would recommend for the next 3 to 4 days that you stick with a strictly liquid diet. Gradually advance your food over the next week to light solids, and then full solids as tolerated. If you notice any worsening of your symptoms, or any new symptoms such as vomiting, diarrhea, fever, chills, shortness of breath, chest pain, numbness, weakness, or fainting , please return immediately to the emergency department for reevaluation. Please follow up with your primary care provider as soon as possible for reassessment and reevaluation. As always, it was a pleasure participating in your medical care today. Referrals: Dulce Hidalgo MD [Primary Care Provider] - Discharge Data Discharge Date/Time-TO BE ENTERED AT DEPARTURE: 05/16/19 08:50 Medical Decision Making <Vasquez Virgen MD - Last Filed: 05/16/19 21:20> Patient presenting with recurrent upper abdominal pain and vomiting consistent with previous partial small bowel obstructions. IV established and fluids started. Phenergan and morphine ordered. Laboratory studies and abdominal x- ray ordered. 02:44 - Patient feeling better at this point. She has received a couple of doses of morphine, Phenergan, Zofran. Laboratory studies are unremarkable. Abdominal x-ray does not show definitive ileus or obstruction. We will continue fluid hydration and holding the detail morning and reevaluate. 07:15 - Patient is doing better. She has not required more pain medicine. She is a little uncomfortable and wanted to try some IV Tylenol like they had given her when admitted. Wants to try to go home if able. Medical Records Medical records reviewed: Yes I reviewed the patient's medical records. Lab Data Lab results reviewed: Yes I reviewed the patient's lab results. <Jakob Matthew DO - Last Filed: 05/16/19 08:47> Case is signed out to me by my colleague Dr. Vasquez Virgen. Please refer to his documentation for initial history, physical, assessment and plan. Patient presented for nausea and vomiting, however as this is a very common occurrence for her she requested to hold off on any CT imaging, after she tolerated p.o. well with a relatively unremarkable work-up she requested to be discharged home after an observation period. At time of signout patient had relatively unremarkable labs, and been tolerating p.o. very well, and had been requesting discharge home pending arrival of her family member. On reassessment the patient continues to feel well. She is tolerated oral fluids and ice chips very well without any difficulty or vomiting. Signs and symptoms at this time are clinically inconsistent with intestinal obstruction. Patient is requesting discharge, feel this is certainly reasonable. We discussed the importance of prompt return if she has any return or worsening of her symptoms. We discussed red flags which to return. Diagnosis nausea and vomiting, I have extensively reviewed the treatment plan and discharge instructions with the patient and their family. I have addressed all patient concerns at this time. The patient and family was made aware of what symptoms to monitor for that would warrant a return to the emergency department. Discussed the plan with the patient and family, they demonstrate verbal understanding and agreement with our assessment and plan at this time. HPI <Vasquez Virgen MD - Last Filed: 05/16/19 21:20> General Mode of arrival: wheelchair . Date/Time Provider Initiated Documentation: 05/16/19 00:35 . Limitations to Documentation: no limitations . Information obtained by: patient, RN notes reviewed and old records reviewed . HPI Narrative: Patient presents to ED with upper abdominal pain, nausea and vomiting. Patient has had this multiple times in the past. Most recent was when I saw her. Typically this is caused by a partial small bowel obstruction which resolves on its own within about 24 to 36 hours. Patient reports onset of symptoms 6:00 in the evening. She had a bowel movement earlier in the day. She has been passing flatus up until about 2 to 3 hours ago. She has developed upper abdominal pain and cramping with associated vomiting. This is similar to all previous episodes. She has no other complaints of. Related Data Home Medications Medication Instructions Recorded Confirmed atenolol 50 mg PO DAILY 11/30/13 04/10/19 calcium carb and citrate-vitD3 1 tab PO DAILY 11/30/13 04/10/19 [Citracal + D Slow Release] simvastatin 10 mg PO DAILY 11/30/13 04/10/19 hydrochlorothiazide 25 mg PO DAILY 12/21/17 04/10/19 bisacodyl [Dulcolax (bisacodyl)] 5 mg PO DAILY PRN 04/04/18 04/10/19 cyanocobalamin (vitamin B-12) 1,000 mcg PO DAILY 04/04/18 04/10/19 [Vitamin B-12] magnesium oxide 400 mg PO DAILY 04/04/18 04/10/19 cetirizine 10 mg tablet 10 mg PO DAILY PRN tab 07/27/18 04/10/19 fluticasone propionate 50 2 spray INTRANASAL DAILY PRN 07/27/18 04/10/19 mcg/actuation nasal spray,suspension Xarelto 10 mg PO DAILY 08/26/18 04/10/19 acetaminophen 500 mg tablet 500 mg PO PRN tab 09/21/18 04/10/19 acidophilus 100 million 1 cap PO DAILY cap 09/21/18 04/10/19 cell-pectin, citrus 10 mg capsule aluminum-mag hydroxide-simethicone 10 ml PO QHS ml 09/21/18 04/10/19 200 mg-200 mg-20 mg/5 mL oral susp omeprazole 20 mg capsule,delayed 20 mg PO BID cap 09/21/18 04/10/19 release polyethylene glycol 3350 17 17 gm PO DAILY 09/21/18 04/10/19 gram/dose oral powder Allergies Allergy/AdvReac Type Severity Reaction Status Date / Time latex Allergy Mild Verified 04/10/19 01:06 Sulfa (Sulfonamide AdvReac Severe liver Verified 04/10/19 01:06 Antibiotics) damage ciprofloxacin [From Cipro] AdvReac Intermediate unknown Verified 04/10/19 01:06 glucosamine AdvReac Intermediate Nausea Verified 04/10/19 01:06 glue on bandaids Allergy Mild rash Uncoded 04/10/19 01:06 Epideral Dressing AdvReac Severe Blistering Uncoded 04/10/19 01:06 General SADIE: 3 Review of Systems <Vasquez Virgen MD - Last Filed: 05/16/19 21:20> Narrative: 03/25 Review of Systems completed and is negative except as stated above in HPI (Systems reviewed: Const, Eyes, ENT, Resp, CV, GI, , MSK, Skin, Neuro) PFSH <Vasquez Virgen MD - Last Filed: 05/16/19 21:20> Medical History Actinic keratosis (Chronic) Anemia (Chronic) Benign essential tremor (Chronic) BRCA2 positive (Chronic) Breast cancer, stage 1 (Chronic) Dehydration (Chronic) GERD (gastroesophageal reflux disease) (Chronic) H/O ovarian cancer (Chronic) H/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) H/O renal cell cancer (Chronic) HTN (hypertension) (Chronic) Incisional hernia (Resolved) 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 Obesity (Chronic) Osteopenia (Chronic) Pulmonary embolism (Chronic) Seborrheic keratoses (Chronic) Stage 3 chronic kidney disease (Chronic) Ventral hernia (Resolved) Surgical History H/O partial cystectomy (Resolved) H/O right nephrectomy (Acute) Right, with partial uretectomy, Dr Ariel Do History of appendectomy (Resolved) unknown date History of bowel resection (Resolved) partial, unknown date S/P hysterectomy with oophorectomy (Resolved) S/P recurrent ventral herniorrhaphy (Acute 07/17/18) Dr Michael Carroll, [facility] S/P TKR (total knee replacement) (Resolved) Status post cataract extraction and insertion of intraocular lens of left eye (Chronic 04/09/18) Status post cataract extraction and insertion of intraocular lens of right eye (Chronic 04/23/18) Social History Smoking/Tobacco Use Status: Never Alcohol Intake: never Drug use: Never Substance use type: does not use Do you feel safe at home: Yes Do you feel safe in your relationship?: Yes Additional Social history: unable to assess privately Exam <Vasquez Virgen MD - Last Filed: 05/16/19 21:20> Narrative Exam Narrative: Vitals: Afebrile. Elevated blood pressure otherwise normal vitals and room air pulse ox. Const: Elderly female who appears uncomfortable. HEENT: NC/AT. Normal facial exam. Eyes: Normal conjunctiva and sclera. Neck: Supple. Trachea midline. Lungs: Normal respiratory effort. Lungs are clear. Cor: RRR without murmur/gallop. Good radial pulses. GI: Soft and nondistended. Tender in the upper epigastric right upper quadrant area. No guarding or rebound. Neuro: A+O x 3. CN grossly in tact. No gross motor or sensory deficit. Ext: No C/C/E. Skin: Warm and dry without rash. Sign Out <Vasquez Virgen MD - Last Filed: 05/16/19 21:20> Sign Out Data: Sign Out Comment: Pending reevaluation later this morning after the IV Tylenol, hope for discharge home. Last updated by Vasquez Virgen MD at 05/16/19 07:53
[2019-05-16 01:11] LABS: Abs Immature Grans 0.03 k/cumm (0.0-0.09); Absolute Basophil Count 0.01 k/cumm (0.0-0.2); Absolute Eosinophil Count 0.17 k/cumm (0.0-0.7); Absolute Lymphocyte Count 1.64 k/cumm (1.2-3.4); Absolute Monocyte Count 0.44 k/cumm (0.11-0.7); Absolute Neutrophil Count 4.77 k/cumm (1.2-6.7); Basophils % 0.1; Eosinophils % 2.4; HCT 38.2 % (36.0-46.0); HGB 12.6 g/dL (12.0-15.5); Immature Grans % 0.4; Lymphocytes % 23.2; Mean Corpuscular Hemoglobin 29.1 pg (27.0-33.0); Mean Corpuscular Volume 88.2 fL (80-95); Mean Platelet Volume 10.5 fL (8.0-11.0); Monocytes % 6.2; Neutrophils % 67.7; Platelet Count 242 x1000/uL (130-400); RBC 4.33 m/cumm (4.00-5.20); RBC Distribution Width 15.3 % (11.7-14.6); White Blood Cell Count 7.06 k/cumm (4.4-10.8)
[2019-05-16 01:24] LABS: ALT 13 U/L (14-59); AST 15 U/L (15-37); Albumin 3.3 g/dL (3.4-5.0); Alkaline Phosphatase 99 U/L (46-116); Anion Gap 10.5 mmol/L (3-11); BUN 24 mg/dL (7-18); Bilirubin, Total 0.4 mg/dL (0.2-1.0); CO2 28.5 mmol/L (21.0-32.0); CREATININE 1.35 mg/dL (0.55-1.02); Calcium 9.6 mg/dL (8.5-10.1); Chloride 100 mmol/L (98-107); Estimated GFR 38.13 (mL/min/1.73m2); Glucose 166 mg/dL (74-106); Lipase 54 U/L (73-393); Potassium 3.7 mmol/L (3.5-5.1); Sodium 139 mmol/L (136-145); Total Protein 7.2 g/dL (6.4-8.2)
--- NOTE | 2019-05-16 01:45 | DI.RAD_ITS ---
EXAM: XR ABD FLAT UPRIGHT PA CHEST INDICATION: abdominal pain/vomiting. COMPARISON: XR abdomen flat upright from 10/28/2018 XR ABDOMEN FLAT UPRIGHT from 04/10/2019 TECHNIQUE: 2D digital imaging was performed. FINDINGS: Heart size is normal. The lungs are clear. No free air is seen beneath the diaphragm. Leads overli e the chest and abdomen. Bowel gas pattern is unremarkable. There is a normal quantity of stool. S urgical clips are seen in the mid abdomen. Severe degenerative changes are noted in spine. IMPRESSION: No acute abnormality.
[2019-05-16] MEDS: Ondansetron 4 MG/2 ML VIAL IVP (02:05)
--- NOTE | 2019-05-16 02:06 | DI.VRAD_ITS ---
PROCEDURE INFORMATION: Exam: XR Complete Acute Abdomen Series Exam date and time: 05/16/2019 12:53 AM Age: 78 years old Clinical history: Generalized; Patient HX: Abdominal pain and vomiting TECHNIQUE: Imaging protocol: XR complete acute abdomen series, including 2 or more views of the abdomen and a single view chest. COMPARISON: CR XR ABD FLAT UPRIGHT PA CHEST 08/26/2018 9:30 AM FINDINGS: Lungs: Normal. No consolidation. Pleural space: Normal. No pneumothorax. Heart/Mediastinum: Normal. No cardiomegaly. Gastrointestinal tract: Surgical clips overlie midabdomen. No bowel dilation. Intraperitoneal space: Normal. No free air. Bones/joints: Degenerative changes of the spine. No acute fracture. Soft tissues: Normal. IMPRESSION: No acute findings. Dictated and Authenticated by: Jitendra Almaraz MD. Ordering:MEHRAN Ovalle MD
[2019-05-16] MEDS: Lactated Ringers 1,000 ML 125 ML IV (02:43)
[2019-05-16] MEDS: Normal Saline Flush 10 ML SYR IVP (02:44)
--- NOTE | 2019-05-16 06:39 | NUR.NOTE ---
Nursing Note: 0220 Pt now resting a little better, nausea controlled at this time. Pain down from 10 to 4/10. No vomiting at this time. Will closely monitor pts status; Souse remains at bedside. 0330 Pt assisted up to bathroom. voided, sample remains a bedside. No order placed at this time. No needs at this time. Pt assisted back into bed by this RN. No complications or concerns. Pain remains pain free at this time. Pt to be in ED until 0730 when re-evaluated by provider. 0415 Pt's spouse left hospital and will return shortly. Pt sleeping soundly. No changes or concerns. 0535 No changes to report. Pt remains asleep, wakes eaisily to voce. Vitals stable. 0645 Report to dayscoft RN regarding patients care and future care in ED.
[2019-05-16] MEDS: ACETAMINOPHEN 1,000 MG/100 ML BTL 400 MG IVPB (07:45)
== END 2019-05-16 08:50 | disposition home or self-care (01) ==
PROVIDERS: Emergency Medicine; Emergency Provider Student in an Organized Health Care Education/Training Program; PCP Family Medicine
DX: R11.2 Nausea with vomiting, unspecified (principal); I12.9 Hypertensive chronic kidney disease with stage 1 through stage 4 chronic kidney disease, or unspecified chronic kidney disease; N18.3 Chronic kidney disease, stage 3 (moderate)
CPT/HCPCS: 36415; 80053; 83690; 96361; 96374; 96375; 99284; 74022; 85025; 99285; J0131; J2405; J3490

== ENCOUNTER 2019-07-11 07:16 | Emergency (ER) | payer MEDICARE, OTHER, SELFPAY ==
[2019-07-11] VITALS (48 sets, daily range): BP systolic 80–163; BP diastolic 48–105; PULSE 51–97; RESP 9–28; TEMP 36.6–36.8; O2SAT 91–100
--- NOTE | 2019-07-11 07:52 | ED.GENADUL_ITS ---
Discharge Plan Disposition Patient Disposition: HOME Condition: Improving Discharge Details Chief Complaint: Abd Prob Clinical Impression: Abdominal pain Primary Care Provider: Dulce Hidalgo ED Provider: Jane Kimble Home Meds and New Rx's Prescriptions: New ondansetron 4 mg tablet,disintegrating 4 mg PO Q6H PRN (Reason: nausea and vomiting) Qty: 14 RF: 0 Continued cetirizine [Zyrtec] 10 mg tablet 10 mg PO DAILY PRNRF: 0 polyethylene glycol 3350 [Miralax] 17 gram/dose powder 17 gm PO DAILY RF: 0 omeprazole 20 mg capsule,delayed release(DR/EC) 20 mg PO BID RF: 0 acidophilus-pectin, citrus [Acidophilus Probiotic] 100 million cell-10 mg capsule 1 cap PO DAILY RF: 0 acetaminophen [Tylenol Extra Strength] 500 mg tablet 500 mg PO PRN RF: 0 alum-mag hydroxide-simeth 200-200-20 mg/5 mL suspension 10 ml PO QHS RF: 0 simvastatin 10 MG tablet 10 mg PO DAILY RF: 0 atenolol 50 MG tablet 50 mg PO DAILY RF: 0 calcium carb and citrate-vitD3 [Citracal + D Slow Release] 1 EACH tablet extended release 1 tab PO DAILY RF: 0 hydrochlorothiazide 25 MG tablet 25 mg PO DAILY RF: 0 cyanocobalamin (vitamin B-12) [Vitamin B-12] 1,000 mcg Tablet 1,000 mcg PO DAILY RF: 0 bisacodyl [Dulcolax (bisacodyl)] 5 mg Tablet,Delayed Release (Dr/Ec) 5 mg PO DAILY PRNRF: 0 magnesium oxide 400 mg Capsule 400 mg PO DAILY RF: 0 Xarelto 10 mg Tablet 10 mg PO DAILY RF: 0 Discharge Instructions Instructions: Abdominal Pain (ED) Additional Instructions: Encourage water intake. May continue with Tylenol as needed for discomfort. You are given a dose here prior to discharge. If you develop fever/chills, increased pain, inability stay hydrated or other new/worsening symptom please seek care urgently once again. You have a follow up appointment with your primary care doctor on Monday at 10AM. If unalbe to keep appointment please call, number listed below. Referrals: Dulce Hidalgo MD [Primary Care Provider] - 07/15/19 10:00 am Discharge Data Discharge Date/Time-TO BE ENTERED AT DEPARTURE: 07/11/19 12:13 Medical Decision Making Patient is a pleasant 78-year-old female, accompanied by her , with chief complaint of periumbilical abdominal pain that began last night around 7 PM. She reports that this feels the same as when she has had obstructions historically. Patient does have significant surgical history including total hysterectomy for cancer, nephrectomy for cancer, bilateral mastectomy, appendectomy. She reports that she ate lettuce recently and that this is often instigator of obstruction for her. States that last night, pain developed, she is been feeling bloated, one episode of vomitus. Is currently endorsing nausea.She has been evaluated by GI multiple times historically as well as previous surgeons who advised that the patient has been changes in the bowel associated with radiation. They are concerned that the radiation may have caused a stricture leading to recurrent obstructions. Patient has been seen here multiple times over the past year but no definitive diagnosis of obstruction was made. She reports that after hydration, pain management, her symptoms do seem to improve and she is then able to go on to have a bowel movement. She reports a bowel movement yesterday at 4 or 5 PM which she reports is normal. No blood in her stool. No change in her urinary habits. She reports that her kidney function does wax and wane. Last colonoscopy and endoscopy was last summer at [facility] [place]. Has not been passing flatus since 1899. Asthma history significant for anemia, skin subcu ovarian cancer pain 08/19, GERD, hypertension, hypercholesterolemia, hernia, hiatal hernia, PE, lap K, CKD not, essential tremor. On exam, patient is resting comfortably. Vital signs notable for elevated blood pressure at 163/99. Patient is some mild tenderness to palpation but no peritoneal findings. Guarding, rebound tenderness. Hemoglobin long creatinine evidence of discomfort. No notable distention or bloating. Abdomen is not tympanitic. The patient's most recent plan for x-ray, hydration after evaluation. Plan IV morphine to help with discomfort. Patient is feeling improved after pain medication and ondansetron. Labs reviewed. No leukocytosis. Hemoglobin within normal limits. Creatinine is 1.42, this is baseline for the patient. 05/04/2000 baseline per patient. No significant electrolyte abnormalities. Urine without significant abnormality. X-ray reviewed by radiologist: FINDINGS: Single PA view of the chest was obtained. Heart is not enlarged. Lungs are grossly clear with some changes of scarring. Three views of the abdomen were obtained. Vascular clips noted overlying the mid abdomen. Normal bowel gas pattern with probable mild constipation. No free intraperitoneal air. No gross organomegaly. IMPRESSION: No evidence of acute process. Patient is feeling improved but continues to have occasional cramping of her abdomen. Discussed the findings of imaging and labs with the patient. She would like to try oral challenge and receive IV acetaminophen which is worked well for her historically. Patient is tolerating oral intake. Feels improved after the IV acetaminophen is requesting discharge home. She was given strict return precautions. I did contact her primary care and appointment for her Monday morning. We will refill patient's ondansetron she was to nausea recur. Encouraged water intake and return to normal diet. At this time, her exam and imaging is inconsistent with obstruction. All the questions and concerns were addressed and she is agreement this plan. HPI General Mode of arrival: ambulatory . Date/Time Provider Initiated Documentation: 07/11/19 07:51 . Limitations to Documentation: no limitations . Information obtained by: patient, family () and RN notes reviewed . History of Present Illness 78 year old F presents to the emergency department with the chief complaint of periumbilical abdominal pain, described as severe and similar to prior episodes (hx of obstructions), with intensity rated at 8. Quality is described as stabbing, and is localized to the abdomen. Patient reports no radiation. Patient started experiencing this hour(s) (12) and it has been constant (waves of pain). No relieving factors improve symptom(s), No exacerbating factors reported . Patient notes loss of appetite and nausea/vomiting; denies chest pain, cough, diaphoresis, fever/chills, headaches, rash, shortness of breath and weakness. Patient did receive the following treatments prior to arrival, none Related Data Home Medications Medication Instructions Recorded Confirmed atenolol 50 mg PO DAILY 11/30/13 07/11/19 calcium carb and citrate-vitD3 1 tab PO DAILY 11/30/13 07/11/19 [Citracal + D Slow Release] simvastatin 10 mg PO DAILY 11/30/13 07/11/19 hydrochlorothiazide 25 mg PO DAILY 12/21/17 07/11/19 bisacodyl [Dulcolax (bisacodyl)] 5 mg PO DAILY PRN 04/04/18 07/11/19 cyanocobalamin (vitamin B-12) 1,000 mcg PO DAILY 04/04/18 07/11/19 [Vitamin B-12] magnesium oxide 400 mg PO DAILY 04/04/18 07/11/19 cetirizine 10 mg tablet 10 mg PO DAILY PRN tab 07/27/18 07/11/19 Xarelto 10 mg PO DAILY 08/26/18 07/11/19 acetaminophen 500 mg tablet 500 mg PO PRN tab 09/21/18 04/10/19 acidophilus 100 million 1 cap PO DAILY cap 09/21/18 07/11/19 cell-pectin, citrus 10 mg capsule aluminum-mag hydroxide-simethicone 10 ml PO QHS ml 09/21/18 07/11/19 200 mg-200 mg-20 mg/5 mL oral susp omeprazole 20 mg capsule,delayed 20 mg PO BID cap 09/21/18 07/11/19 release polyethylene glycol 3350 17 17 gm PO DAILY 09/21/18 07/11/19 gram/dose oral powder ondansetron 4 mg PO Q6H PRN #14 tab 07/11/19 Previous Rx's Medication Instructions Recorded ondansetron 4 mg PO Q6H PRN #14 tab 07/11/19 Allergies Allergy/AdvReac Type Severity Reaction Status Date / Time latex Allergy Mild Verified 07/11/19 07:26 Sulfa (Sulfonamide AdvReac Severe liver Verified 07/11/19 07:26 Antibiotics) damage ciprofloxacin [From Cipro] AdvReac Intermediate unknown Verified 07/11/19 07:26 glucosamine AdvReac Intermediate Nausea Verified 07/11/19 07:26 glue on bandaids Allergy Mild rash Uncoded 07/11/19 07:26 Epideral Dressing AdvReac Severe Blistering Uncoded 07/11/19 07:26 General Stated Complaint: Abd Prob SADIE: 3 Review of Systems Constitutional Constitutional: Reports as per HPI, Denies chills, Denies fatigue, Denies fever(s) and Denies headache(s) ENT Ears, Nose, Mouth, and Throat: Denies headache(s) Cardiovascular Cardiovascular: Reports as per HPI, Denies chest pain and Denies dyspnea Respiratory Respiratory: Reports as per HPI, Denies cough and Denies dyspnea Gastrointestinal Gastrointestinal: Reports as per HPI Musculoskeletal Musculoskeletal: Reports as per HPI and Denies back pain Integumentary/Breasts Skin/Breast: Reports as per HPI and Denies rash Neurologic Neurologic: Reports as per HPI and Denies headache(s) Endocrine Endocrine: Denies fatigue [facility] Medical History Actinic keratosis (Chronic) Anemia (Chronic) Benign essential tremor (Chronic) BRCA2 positive (Chronic) Breast cancer, stage 1 (Chronic) Dehydration (Chronic) GERD (gastroesophageal reflux disease) (Chronic) H/O ovarian cancer (Chronic) H/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) H/O renal cell cancer (Chronic) HTN (hypertension) (Chronic) Incisional hernia (Resolved) 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 Obesity (Chronic) Osteopenia (Chronic) Pulmonary embolism (Chronic) Seborrheic keratoses (Chronic) Stage 3 chronic kidney disease (Chronic) Ventral hernia (Resolved) Surgical History H/O partial cystectomy (Resolved) H/O right nephrectomy (Acute) Right, with partial uretectomy, Dr Ariel Do History of appendectomy (Resolved) unknown date History of bowel resection (Resolved) partial, unknown date S/P hysterectomy with oophorectomy (Resolved) S/P recurrent ventral herniorrhaphy (Acute 07/17/18) Dr Michael Carroll, [facility] S/P TKR (total knee replacement) (Resolved) Status post cataract extraction and insertion of intraocular lens of left eye (Chronic 04/09/18) Status post cataract extraction and insertion of intraocular lens of right eye (Chronic 04/23/18) Social History Smoking/Tobacco Use Status: Never Alcohol Intake: never Drug use: Never Substance use type: does not use Do you feel safe at home: Yes Do you feel safe in your relationship?: Yes Additional Social history: unable to assess privately Exam Const General: cooperative, healthy appearing, comfortable, no acute distress and well developed Nutritional Appearance: well nourished and overweight Orientation: alert and awake [facility] Head: normal to inspection Mouth: moist mucous membranes Resp Effort & Inspection: normal respiratory effort, able to speak in complete sentences and no respiratory distress Auscultation: clear to auscultation bilaterally, no rales, no rhonchi and no wheezes Cardio Rate: regular rate Rhythm: regular rhythm Heart Sounds: S1 normal and S2 normal GI Inspection: normal to inspection, non-distended, no visible herniation, no visible pulsation and No visible peristalsis Palpation: soft, no hepatosplenomegaly, not firm, no guarding, no masses, no pulsatile masses, not rigid and tender (diffusely tender, no peritoneal findings) Percussion: normal to percussion Auscultation: normal bowel sounds Back/Spine/Pelvis Back: no CVA tenderness Skin General skin exam: no rashes or lesions noted Trauma: no lacerations or abrasions Neuro General: alert and awake Cognition: normal cognition Speech: speech normal Gait: normal gait Extrem General: normal to inspection, normal capillary refill, no pedal edema and no calf tenderness Psych Appearance: grossly normal and well kempt Mental Status: mental status grossly normal Speech and Movement: speech and movement normal Course Vital Signs Vital signs: Vital Signs Temperature 36.6 C 07/11/19 07:21 Pulse 64 07/11/19 07:21 Respiratory Rate 24 07/11/19 07:21 Blood Pressure 163/99 H 07/11/19 07:21 Pulse Oximetry 100 07/11/19 07:21 Temperature 36.6 C 07/11/19 07:21 Temperature Source Temporal Artery Scan 07/11/19 07:21 Pulse 64 07/11/19 07:21 Respiratory Rate 24 07/11/19 07:21 Respiratory Effort Non-Labored 07/11/19 07:25 Blood Pressure 163/99 H 07/11/19 07:21 Blood Pressure Position Supine 07/11/19 07:21 Pulse Oximetry 100 07/11/19 07:21 Oxygen Delivery Method Room Air 07/11/19 07:21 Oxygen Flow Rate 0 07/11/19 07:21 Pain Level 8 07/11/19 07:21
[2019-07-11 08:02] LABS: Abs Immature Grans 0.01 k/cumm (0.0-0.09); Absolute Basophil Count 0.01 k/cumm (0.0-0.2); Absolute Eosinophil Count 0.05 k/cumm (0.0-0.7); Absolute Lymphocyte Count 1.17 k/cumm (1.2-3.4); Absolute Monocyte Count 0.32 k/cumm (0.11-0.7); Absolute Neutrophil Count 3.81 k/cumm (1.2-6.7); Basophils % 0.2; Eosinophils % 0.9; HCT 39.3 % (36.0-46.0); HGB 12.8 g/dL (12.0-15.5); Immature Grans % 0.2 %; Lymphocytes % 21.8; Mean Corp. HGB Concentration 32.6 g/dL (32.0-36.0); Mean Corpuscular Hemoglobin 29.4 pg (27.0-33.0); Mean Corpuscular Volume 90.1 fL (80-95); Mean Platelet Volume 10.5 fL (8.0-11.0); Neutrophils % 70.9; Platelet Count 215 x1000/uL (130-400); RBC 4.36 m/cumm (4.00-5.20); RBC Distribution Width 15.1 % (11.7-14.6); White Blood Cell Count 5.37 k/cumm (4.4-10.8)
[2019-07-11 08:13] LABS: ALT 16 U/L (14-59); AST 16 U/L (15-37); Albumin 3.2 g/dL (3.4-5.0); Alkaline Phosphatase 88 U/L (46-116); Anion Gap 8.4 mmol/L (3-11); BUN 23 mg/dL (7-18); Bilirubin, Total 0.4 mg/dL (0.2-1.0); CO2 30.6 mmol/L (21.0-32.0); CREATININE 1.42 mg/dL (0.55-1.02); Calcium 9.3 mg/dL (8.5-10.1); Chloride 101 mmol/L (98-107); Estimated GFR 35.97 (mL/min/1.73m2); Glucose 152 mg/dL (74-106); Sodium 140 mmol/L (136-145); Total Protein 6.8 g/dL (6.4-8.2)
[2019-07-11] MEDS: Ondansetron 4 MG/2 ML VIAL IVP (08:19)
[2019-07-11] MEDS: Normal Saline 1,000 ML 500 ML IV (08:19)
[2019-07-11] MEDS: MORPHine 10 MG/ML VIAL 2 MG IVP (08:20)
[2019-07-11 08:25] LABS: Lipase 67 U/L (73-393)
--- NOTE | 2019-07-11 08:55 | DI.RAD_ITS ---
EXAM: XR ABD FLAT UPRIGHT PA CHEST CLINICAL HISTORY: periumbilical pain, hx of obstructions TECHNIQUE: COMPARISON: No exams were available for comparison FINDINGS: Single PA view of the chest was obtained. Heart is not enlarged. Lungs are grossly clear with some changes of scarring. Three views of the abdomen were obtained. Vascular clips noted overlying the mid abdomen. Normal viktoriya wel gas pattern with probable mild constipation. No free intraperitoneal air. No gross organomegaly . IMPRESSION: No evidence of acute process.
[2019-07-11 10:35] LABS: Bilirubin Negative (Negative); Blood Negative (Negative); Clarity Clear (Clear); Glucose Negative (Negative); Ketones Negative (Negative); Leukocyte Esterase Negative (Negative); Nitrite Negative (Negative); Specific Gravity 1.015 (1.005-1.025); Urobilinogen 0.2 EU/dL (Up TO 0.2)
[2019-07-11] MEDS: ACETAMINOPHEN 1,000 MG/100 ML BTL 400 MG IVPB (11:34)
[2019-07-15 11:56] LABS: Hemoglobin A1C 6.1 % (3.8-5.6)
== END 2019-07-11 12:13 | disposition home or self-care (01) ==
PROVIDERS: Emergency Provider Physician Assistant; PCP Family Medicine
DX: R10.33 Periumbilical pain (principal); R11.2 Nausea with vomiting, unspecified; I12.9 Hypertensive chronic kidney disease with stage 1 through stage 4 chronic kidney disease, or unspecified chronic kidney disease; N18.3 Chronic kidney disease, stage 3 (moderate)
CPT/HCPCS: 36415; 80053; 83690; 96361; 96365; 96375; 99284; 74022; 81003; 83036; 85025; J0131; J2270; J2405

== ENCOUNTER 2019-12-17 08:29 | Inpatient (IN) | payer MEDICARE, OTHER, SELFPAY ==
[2019-12-17] VITALS (16 sets, daily range): BP systolic 132–180; BP diastolic 45–76; PULSE 56–74; RESP 16–18; TEMP 36.4–36.8; O2SAT 93–100
--- NOTE | 2019-12-17 08:45 | DI.CT_ITS ---
EXAM: CT ABDOMEN PELVIS WO TECHNIQUE: Imaging Protocol: Axial computed tomography images with coronal and sagittal reformatted images were created and reviewed CONTRAST MATERIAL: Noncontrast COMPARISON: CT CT ABDOMEN PELVIS WO from 01/22/2019 FINDINGS: There is dilatation of loops of small bowel on the left side of the abdomen. It is a similar location to the previous exam. The bowel loops show greater dilatation than the prior study. There is no pn eumatosis, wall thickening, free air or free fluid. There is a small hiatal hernia. There is mild c olonic diverticulosis. No gastric distention is seen. Patient is status post right nephrectomy. Th e left kidney is unremarkable. The heart is mildly enlarged. The lung bases show mild fibrotic amador ges. The liver, gallbladder, spleen, pancreas and adrenals are unremarkable. The urinary bladder is nearly empty. Scarring is again seen in the midline anterior abdominal wall fat near the umbilicus. No hernia is seen. The aorta is normal in diameter and shows mild to moderate calcification. Ther e is an L4 compression fracture which appears stable. Changes are noted greater in the lower lumbar spine. IMPRESSION: Findings consistent with a partial small bowel obstruction, similar to the previous exam. RADIATION DOSE DELIVERED: Total DLP Total DLP DATA REPOSITORY: All CT scans at this facility are submitted to the National Radiology Data Registry (NRDR) Dose Index Registry (DIR) with the [employer] ([employer]). RADIATION OPTIMIZATION: All CT scans at this facility use at least one of these dose optimization te chniques: automated exposure control; mA and/or kV adjustment per patient size (includes targeted exa ms where dose is matched to clinical indication); or iterative reconstruction.
[2019-12-17 09:08] LABS: Abs Immature Grans 0.01 k/cumm (0.0-0.09); Absolute Eosinophil Count 0.01 k/cumm (0.0-0.7); Absolute Lymphocyte Count 1.38 k/cumm (1.2-3.4); Absolute Neutrophil Count 5.24 k/cumm (1.2-6.7); Bilirubin Negative (Negative); Blood Negative (Negative); Clarity Clear (Clear); Eosinophils % 0.1; Glucose Negative (Negative); HCT 36.5 % (36.0-46.0); HGB 11.8 g/dL (12.0-15.5); Immature Grans % 0.1 %; Ketones Negative (Negative); Leukocyte Esterase Negative (Negative); Lymphocytes % 19.3; Mean Corp. HGB Concentration 32.3 g/dL (32.0-36.0); Mean Corpuscular Hemoglobin 28.4 pg (27.0-33.0); Mean Corpuscular Volume 87.7 fL (80-95); Mean Platelet Volume 10.6 fL (8.0-11.0); Neutrophils % 73.5; Nitrite Negative (Negative); Platelet Count 259 x1000/uL (130-400); RBC 4.16 m/cumm (4.00-5.20); RBC Distribution Width 14.4 % (11.7-14.6); White Blood Cell Count 7.14 k/cumm (4.4-10.8); pH 7.5 (5-8)
[2019-12-17] MEDS: Lactated Ringers 500 ML IV (09:08)
[2019-12-17 09:22] LABS: ALT 15 U/L (14-59); AST 21 U/L (15-37); Albumin 3.1 g/dL (3.4-5.0); Alkaline Phosphatase 86 U/L (46-116); Anion Gap 6.5 mmol/L (3-11); BUN 22 mg/dL (7-18); Bilirubin, Total 0.4 mg/dL (0.2-1.0); CO2 30.5 mmol/L (21.0-32.0); CREATININE 1.32 mg/dL (0.55-1.02); Calcium 9.3 mg/dL (8.5-10.1); Chloride 99 mmol/L (98-107); Estimated GFR 39.03 (mL/min/1.73m2); Glucose 141 mg/dL (74-106); Lipase 40 U/L (73-393); Magnesium 1.9 mg/dL (1.8-2.4); Potassium 3.7 mmol/L (3.5-5.1); Sodium 136 mmol/L (136-145); Total Protein 6.8 g/dL (6.4-8.2)
[2019-12-17 09:23] LABS: Troponin I < 0.05 ng/mL (<0.06)
--- NOTE | 2019-12-17 09:29 | ED.GENADUL_ITS ---
Discharge Plan Disposition Patient Disposition: [facility] INPATIENT Condition: Serious Discharge Details Chief Complaint: Abd Prob Clinical Impression: Small bowel obstruction Primary Care Provider: Dulce Hidalgo ED Provider: Amilcar Zabala Home Meds and New Rx's Prescriptions: No Action cetirizine [Zyrtec] 10 mg tablet 10 mg PO DAILY PRNRF: 0 polyethylene glycol 3350 [Miralax] 17 gram/dose powder 17 gm PO DAILY RF: 0 omeprazole 20 mg capsule,delayed release(DR/EC) 20 mg PO BID RF: 0 acidophilus-pectin, citrus [Acidophilus Probiotic] 100 million cell-10 mg capsule 1 cap PO DAILY RF: 0 acetaminophen [Tylenol Extra Strength] 500 mg tablet 500 mg PO PRN RF: 0 alum-mag hydroxide-simeth 200-200-20 mg/5 mL suspension 10 ml PO QHS RF: 0 simvastatin 10 MG tablet 10 mg PO HS RF: 0 atenolol 50 MG tablet 50 mg PO DAILY RF: 0 calcium carb and citrate-vitD3 [Citracal-D3 Slow Release] 1 EACH tablet extended release 1 tab PO DAILY RF: 0 ondansetron 4 mg tablet,disintegrating 4 mg PO Q6H PRN (Reason: nausea and vomiting) Qty: 14 RF: 0 hydrochlorothiazide 25 MG tablet 25 mg PO DAILY RF: 0 cyanocobalamin (vitamin B-12) [Vitamin B-12] 1,000 mcg Tablet 1,000 mcg PO DAILY RF: 0 bisacodyl [Dulcolax (bisacodyl)] 5 mg Tablet,Delayed Release (Dr/Ec) 5 mg PO DAILY PRNRF: 0 magnesium oxide 400 mg Capsule 400 mg PO DAILY RF: 0 Xarelto 10 mg Tablet 10 mg PO DAILY RF: 0 alum-mag hydroxide-simeth [Mylanta Maximum Strength] 400-400-40 mg/5 mL Suspension RF: 0 Medical Decision Making 937??79-year-old female with history of prior abdominal surgery and small bowel obstructions, here with vomiting, inability to tolerate fluids since yesterday and crampy mid gastric abdominal pain intermittent over same period of time. Last normal bowel movement was last week. She had a small bowel movement on Monday. Symptoms are similar to prior small bowel obstructions. I am concerned about acute surgical pathology including small bowel obstruction will obtain a CT of the abdomen pelvis. We will give IV fluid. Patient is hypertensive -she notes she has not been able to take her home medications. 1100 --CT the abdomen pelvis was interpreted by radiology: Small bowel obstruction. Patient reassessed: Not vomiting. Pain improved after Dilaudid. And for continued IV fluid, bowel rest, and pain control. I spoke with Dr. Aguilera who will admit the patient. Bridging orders requested to the floor. HPI General Mode of arrival: ambulatory . Date/Time Provider Initiated Documentation: 12/17/19 08:36 . Limitations to Documentation: no limitations . Information obtained by: patient . HPI Narrative: 79-year-old female with history of prior multiple abdominal surgeries, history of small bowel obstruction in the past, here with chief complaint of vomiting. Patient notes nausea and vomiting started yesterday evening. Has persisted. Symptoms are severe. Unable to tolerate fluids. She has associated sharp focal mid gastric abdominal discomfort described as crampy, sharp, intermittent. Symptoms are very similar to prior small bowel obstruction. Her last bowel movement was on Monday and was noted to be nonbloody. She has no associated fever. Related Data Home Medications Medication Instructions Recorded Confirmed atenolol 50 mg PO DAILY 11/30/13 12/17/19 calcium carb and citrate-vitD3 1 tab PO DAILY 11/30/13 07/11/19 [Citracal-D3 Slow Release] simvastatin 10 mg PO HS 11/30/13 12/17/19 hydrochlorothiazide 25 mg PO DAILY 12/21/17 12/17/19 bisacodyl [Dulcolax (bisacodyl)] 5 mg PO DAILY PRN 04/04/18 12/17/19 cyanocobalamin (vitamin B-12) 1,000 mcg PO DAILY 04/04/18 12/17/19 [Vitamin B-12] magnesium oxide 400 mg PO DAILY 04/04/18 12/17/19 cetirizine 10 mg tablet 10 mg PO DAILY PRN tab 07/27/18 12/17/19 Xarelto 10 mg PO DAILY 08/26/18 12/17/19 acetaminophen 500 mg tablet 500 mg PO PRN tab 09/21/18 12/17/19 acidophilus 100 million 1 cap PO DAILY cap 09/21/18 12/17/19 cell-pectin, citrus 10 mg capsule aluminum-mag hydroxide-simethicone 10 ml PO QHS ml 09/21/18 12/17/19 200 mg-200 mg-20 mg/5 mL oral susp omeprazole 20 mg capsule,delayed 20 mg PO BID cap 09/21/18 12/17/19 release polyethylene glycol 3350 17 17 gm PO DAILY 09/21/18 12/17/19 gram/dose oral powder ondansetron 4 mg PO Q6H PRN #14 tab 07/11/19 12/17/19 alum-mag hydroxide-simeth [Mylanta 12/17/19 12/17/19 Maximum Strength] Previous Rx's Medication Instructions Recorded ondansetron 4 mg PO Q6H PRN #14 tab 07/11/19 Allergies Allergy/AdvReac Type Severity Reaction Status Date / Time latex Allergy Mild Verified 12/17/19 08:36 Sulfa (Sulfonamide AdvReac Severe liver Verified 12/17/19 08:36 Antibiotics) damage ciprofloxacin [From Cipro] AdvReac Intermediate unknown Verified 12/17/19 08:36 glucosamine AdvReac Intermediate Nausea Verified 12/17/19 08:36 glue on bandaids Allergy Mild rash Uncoded 12/17/19 08:36 Epideral Dressing AdvReac Severe Blistering Uncoded 12/17/19 08:36 General Stated Complaint: Abd Prob SADIE: 3 Review of Systems All systems reviewed & are unremarkable except as noted in HPI and below Constitutional Constitutional: Denies fever(s) Gastrointestinal Gastrointestinal: Reports as per HPI and Reports abdominal pain PFSH Medical History Actinic keratosis (Chronic) Anemia (Chronic) Benign essential tremor (Chronic) BRCA2 positive (Chronic) Breast cancer, stage 1 (Chronic) Dehydration (Chronic) GERD (gastroesophageal reflux disease) (Chronic) H/O ovarian cancer (Chronic) H/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) H/O renal cell cancer (Chronic) HTN (hypertension) (Chronic) Incisional hernia (Resolved) 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 Obesity (Chronic) Osteopenia (Chronic) Pulmonary embolism (Chronic) Seborrheic keratoses (Chronic) Stage 3 chronic kidney disease (Chronic) Ventral hernia (Resolved) Surgical History H/O partial cystectomy (Resolved) H/O right nephrectomy (Acute) Right, with partial uretectomy, Dr Ariel Do History of appendectomy (Resolved) unknown date History of bowel resection (Resolved) partial, unknown date S/P hysterectomy with oophorectomy (Resolved) S/P recurrent ventral herniorrhaphy (Acute 07/17/18) Dr Michael Carroll, [facility] S/P TKR (total knee replacement) (Resolved) Status post cataract extraction and insertion of intraocular lens of left eye (Chronic 04/09/18) Status post cataract extraction and insertion of intraocular lens of right eye (Chronic 04/23/18) Social History Smoking/Tobacco Use Status: Never Alcohol Intake: never Drug use: Never Substance use type: does not use Do you feel safe at home: Yes Do you feel safe in your relationship?: Yes Additional Social history: unable to assess privately Exam Const General: cooperative and no acute distress HENMT Mouth: moist mucous membranes Eyes Conjunctivae: normal conjunctivae Sclera: normal sclerae Neck Neck: trachea midline Resp Auscultation: clear to auscultation bilaterally, no rales, no rhonchi and no wheezes Cardio Jugular venous pressure: no JVD Rate: regular rate and not tachycardic Rhythm: regular rhythm GI Palpation: soft, not firm, no guarding, no masses, not rigid and tender other (Mid abdomen) Skin General skin exam: no rashes or lesions noted Neuro General: patient alert, patient awake and tone normal Extrem General: no edema Psych Appearance: grossly normal Mental Status: mental status grossly normal Speech and Movement: speech and movement normal Course Vital Signs Vital signs: Vital Signs Temperature 36.8 C 12/17/19 08:33 Pulse 74 12/17/19 08:33 Blood Pressure 180/69 H 12/17/19 08:33 Pulse Oximetry 98 12/17/19 08:33 Temperature 36.8 C 12/17/19 08:33 Pulse 74 12/17/19 08:33 Respiratory Effort Non-Labored 12/17/19 08:42 Blood Pressure 180/69 H 12/17/19 08:33 Blood Pressure Position Supine 12/17/19 08:33 Pulse Oximetry 98 12/17/19 08:33 Oxygen Delivery Method Room Air 12/17/19 08:33 Oxygen Flow Rate 0 12/17/19 08:33 Pain Level 4 12/17/19 08:50 Lab/Test Results Lab/Test Results: Laboratory Tests Range/Units 12/17/19 12/17/19 12/17/19 09:00 09:00 09:00 WBC (4.4-10.8) k/cumm 7.14 RBC (4.00-5.20) m/cumm 4.16 Hgb (12.0-15.5) g/dL 11.8 L Hct (36.0-46.0) % 36.5 MCV (80-95) fL 87.7 MCH (27.0-33.0) pg 28.4 MCHC (32.0-36.0) g/dL 32.3 RDW (11.7-14.6) % 14.4 Plt Count (130-400) x1000/uL 259 MPV (8.0-11.0) fL 10.6 Immature Gran % % 0.1 Neutrophils % 73.5 Lymphocytes % 19.3 Monocytes % 7.0 Eosinophils % 0.1 Basophils % 0.0 Absolute Neutrophils (1.2-6.7) k/cumm 5.24 Absolute Lymphocytes (1.2-3.4) k/cumm 1.38 Absolute Monocytes (0.11-0.7) k/cumm 0.50 Absolute Eosinophils (0.0-0.7) k/cumm 0.01 Absolute Basophils (0.0-0.2) k/cumm 0.00 Sodium (136-145) mmol/L 136 Potassium (3.5-5.1) mmol/L 3.7 Chloride (98-107) mmol/L 99 Carbon Dioxide (21.0-32.0) mmol/L 30.5 Anion Gap (3-11) mmol/L 6.5 BUN (7-18) mg/dL 22 H Creatinine (0.55-1.02) mg/dL 1.32 H Estimated GFR/1.73 m2 (mL/min/1.73m2) 39.03 Glucose (74-106) mg/dL 141 H Calcium (8.5-10.1) mg/dL 9.3 Magnesium (1.8-2.4) mg/dL 1.9 Total Bilirubin (0.2-1.0) mg/dL 0.4 AST (15-37) U/L 21 ALT (14-59) U/L 15 Alkaline Phosphatase (46-116) U/L 86 Troponin I (<0.06) ng/mL < 0.05 Total Protein (6.4-8.2) g/dL 6.8 Albumin (3.4-5.0) g/dL 3.1 L Lipase (73-393) U/L 40 Urine Color (Yellow) Yellow Urine Clarity (Clear) Clear Urine pH (5-8) 7.5 Ur Specific [place] (1.005-1.025) 1.020 Urine Protein (Negative) mg/dL Negative Urine Ketones (Negative) mg/dL Negative Urine Blood (Negative) Negative Urine Nitrite (Negative) Negative Urine Bilirubin (Negative) Negative Urine Urobilinogen (Up TO 0.2) EU/dL 1.0 H Ur Leukocyte Esterase (Negative) Negative Urine Glucose (Negative) mg/dL Negative
[2019-12-17] MEDS: Ondansetron 4 MG/2 ML VIAL IVP (10:15)
--- NOTE | 2019-12-17 12:03 | HPE_ITS ---
Date of service: 12/17/19 Time of Service: 12:03 Assessment and Plan Assessment and plan (1) Small bowel obstruction: Status: Acute Assessment and plan: The patient will be admitted for IV fluids, pain management and bowel rest. Her obstructions have improved in the past without surgery and will hopefully do so this admission. At this point an NG tube is not indicated. Labs ordered for the morning. History of Present Illness Narrative: This 79-year-old female presents with crampy abdominal pain and vomiting since Monday. This is a fairly frequent occurrence for the patient. She has been admitted several times in the past for small bowel obstructions which have resolved nonsurgically. She has not required NG placement. She will have lesser episodes that resolved at home by limiting her diet. This occurs ab out every 6 weeks. This episode started Monday and on Monday she had a solid bowel movement. She tried to advance her diet Monday but had vomiting through the night and persistent pain so presented to the emergency department today. She has not passed flatus. Her last emesis was at about 4 AM and appeared to be gastric contents. No coffee-ground emesis. CT scan of the abdomen pelvis showed some moderately dilated loops of bowel primarily in the left upper abdomen. The patient has had a recent EGD and colonoscopy at [facility] that were reportedly normal. 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 S/P TKR (total knee replacement) (Resolved) Status post cataract extraction and insertion of intraocular lens of left eye (Chronic 04/09/18) Status post cataract extraction and insertion of intraocular lens of right eye (Chronic 04/23/18) Social History Smoking/Tobacco Use Status: Never Alcohol Intake: never Drug use: Never Substance use type: does not use Do you feel safe at home: Yes Do you feel safe in your relationship?: Yes Additional Social history: unable to assess privately Meds Home Medications and Allergies Home Medications Medication Instructions Recorded Confirmed Type atenolol 50 mg PO DAILY 11/30/13 12/17/19 History calcium carb and citrate-vitD3 1 tab PO DAILY 11/30/13 07/11/19 History [Citracal-D3 Slow Release] simvastatin 10 mg PO HS 11/30/13 12/17/19 History hydrochlorothiazide 25 mg PO DAILY 12/21/17 12/17/19 History bisacodyl [Dulcolax (bisacodyl)] 5 mg PO DAILY PRN 04/04/18 12/17/19 History cyanocobalamin (vitamin B-12) 1,000 mcg PO DAILY 04/04/18 12/17/19 History [Vitamin B-12] magnesium oxide 400 mg PO DAILY 04/04/18 12/17/19 History cetirizine 10 mg tablet 10 mg PO DAILY PRN tab 07/27/18 12/17/19 History Xarelto 10 mg PO DAILY 08/26/18 12/17/19 History acetaminophen 500 mg tablet 500 mg PO PRN tab 09/21/18 12/17/19 History acidophilus 100 million 1 cap PO DAILY cap 09/21/18 12/17/19 History cell-pectin, citrus 10 mg capsule aluminum-mag hydroxide-simethicone 10 ml PO QHS ml 09/21/18 12/17/19 History 200 mg-200 mg-20 mg/5 mL oral susp omeprazole 20 mg capsule,delayed 20 mg PO BID cap 09/21/18 12/17/19 History release polyethylene glycol 3350 17 17 gm PO DAILY 09/21/18 12/17/19 History gram/dose oral powder ondansetron 4 mg PO Q6H PRN #14 tab 07/11/19 12/17/19 Rx alum-mag hydroxide-simeth [Mylanta 12/17/19 12/17/19 History Maximum Strength] Allergies Allergy/AdvReac Type Severity Reaction Status Date / Time latex Allergy Mild Verified 12/17/19 08:36 Sulfa (Sulfonamide AdvReac Severe liver Verified 12/17/19 08:36 Antibiotics) damage ciprofloxacin [From Cipro] AdvReac Intermediate unknown Verified 12/17/19 08:36 glucosamine AdvReac Intermediate Nausea Verified 12/17/19 08:36 glue on bandaids Allergy Mild rash Uncoded 12/17/19 08:36 Epideral Dressing AdvReac Severe Blistering Uncoded 12/17/19 08:36 Exam Narrative Exam Narrative: No acute distress Abdomen obese, not distended. Moderate tenderness in the epigastric/LUQ region. No peritonitis. Results Labs Result diagrams: 12/17/19 09:00 12/17/19 09:00 Labs: Laboratory Results - last 24 hr 12/17/19 12/17/19 12/17/19 09:00 09:00 09:00 WBC 7.14 RBC 4.16 Hgb 11.8 L Hct 36.5 MCV 87.7 MCH 28.4 MCHC 32.3 RDW 14.4 Plt Count 259 MPV 10.6 Immature Gran % 0.1 Neutrophils % 73.5 Lymphocytes % 19.3 Monocytes % 7.0 Eosinophils % 0.1 Basophils % 0.0 Absolute Neutrophils 5.24 Absolute Lymphocytes 1.38 Absolute Monocytes 0.50 Absolute Eosinophils 0.01 Absolute Basophils 0.00 Sodium 136 Potassium 3.7 Chloride 99 Carbon Dioxide 30.5 Anion Gap 6.5 BUN 22 H Creatinine 1.32 H Estimated GFR/1.73 m2 39.03 Glucose 141 H Calcium 9.3 Magnesium 1.9 Total Bilirubin 0.4 AST 21 ALT 15 Alkaline Phosphatase 86 Troponin I < 0.05 Total Protein 6.8 Albumin 3.1 L Lipase 40 Urine Color Yellow Urine Clarity Clear Urine pH 7.5 Ur Specific [place] 1.020 Urine Protein Negative Urine Ketones Negative Urine Blood Negative Urine Nitrite Negative Urine Bilirubin Negative Urine Urobilinogen 1.0 H Ur Leukocyte Esterase Negative Urine Glucose Negative Last Vital Signs Temp 98.2 F 12/17/19 08:33 Pulse 62 12/17/19 11:22 Resp 16 12/17/19 10:26 BP 151/51 H 12/17/19 11:22 Pulse Ox 100 12/17/19 11:22 COVID-19 Screening Have you, or has anyone in your household, traveled outside of [place] in the last 14 days?: NO Had IN PERSON contact w/suspected or confirmed C-19 person: No
--- NOTE | 2019-12-17 12:12 | NUR.NOTE ---
Nursing Note: Pt arrived via stretcher from ED at 1150. See page two for initial assessment and vitals.
[2019-12-17] MEDS: Lactated Ringers 1,000 ML 150 ML IV ×2 (12:35→19:05)
[2019-12-17] MEDS: Omeprazole 20 MG CAPCR PO (19:57)
[2019-12-17 22:38] LABS: COVID-19 RT-PCR UVMMC Result Negative (Negative)
[2019-12-18] MEDS: Lactated Ringers 1,000 ML 150 ML IV ×2 (01:25→08:59)
[2019-12-18 04:11] VITALS: BP 135/72; PULSE 62; RESP 18; TEMP 37; O2SAT 96
[2019-12-18 07:31] VITALS: BP 134/75; PULSE 57; RESP 16; TEMP 35.3; O2SAT 98
[2019-12-18 08:04] LABS: Abs Immature Grans 0.01 k/cumm (0.0-0.09); Absolute Basophil Count 0.01 k/cumm (0.0-0.2); Absolute Eosinophil Count 0.12 k/cumm (0.0-0.7); Absolute Lymphocyte Count 1.13 k/cumm (1.2-3.4); Absolute Monocyte Count 0.46 k/cumm (0.11-0.7); Absolute Neutrophil Count 2.54 k/cumm (1.2-6.7); Basophils % 0.2; Eosinophils % 2.8; HCT 34.2 % (36.0-46.0); HGB 10.8 g/dL (12.0-15.5); Immature Grans % 0.2 %; Lymphocytes % 26.5; Mean Corp. HGB Concentration 31.6 g/dL (32.0-36.0); Mean Corpuscular Hemoglobin 28.5 pg (27.0-33.0); Mean Corpuscular Volume 90.2 fL (80-95); Mean Platelet Volume 10.1 fL (8.0-11.0); Monocytes % 10.8; Neutrophils % 59.5; Platelet Count 221 x1000/uL (130-400); RBC 3.79 m/cumm (4.00-5.20); RBC Distribution Width 14.9 % (11.7-14.6); White Blood Cell Count 4.27 k/cumm (4.4-10.8)
[2019-12-18 08:09] LABS: Anion Gap 4.8 mmol/L (3-11); BUN 15 mg/dL (7-18); CO2 31.2 mmol/L (21.0-32.0); Chloride 104 mmol/L (98-107); Estimated GFR 43.56 (mL/min/1.73m2); Glucose 113 mg/dL (74-106); Potassium 4.3 mmol/L (3.5-5.1); Sodium 140 mmol/L (136-145)
[2019-12-18] MEDS: Atenolol 50 MG TAB PO (08:22)
[2019-12-18] MEDS: Omeprazole 20 MG CAPCR PO (08:22)
[2019-12-18] MEDS: Rivaroxaban 10 MG TABLET PO (08:22)
[2019-12-18] MEDS: Normal Saline Flush 10 ML SYR IVP (08:59)
--- NOTE | 2019-12-18 10:01 | PDOC.CMIN ---
- If Service Date Differs Date of service: 12/18/19 Time of Service: 10:01 Care Management Initial Assess REASON FOR HOSPITALIZATION:: SBO PAST MEDICAL HISTORY/PAST SURGICAL HISTORY:: Medical History . Actinic keratosis (Chronic). Anemia (Chronic). Benign essential tremor (Chronic). BRCA2 positive (Chronic). Breast cancer, stage 1 (Chronic). Dehydration (Chronic). GERD (gastroesophageal reflux disease) (Chronic). H/O ovarian cancer (Chronic). H/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). H/O renal cell cancer (Chronic). HTN (hypertension) (Chronic). Incisional hernia (Resolved). 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 Obesity (Chronic). Osteopenia (Chronic). Pulmonary embolism (Chronic). Seborrheic keratoses (Chronic). Stage 3 chronic kidney disease (Chronic). Ventral hernia (Resolved). Surgical History . H/O partial cystectomy (Resolved). H/O right nephrectomy (Acute). Right, with partial uretectomy, Dr Ariel Do. History of appendectomy (Resolved). unknown date. History of bowel resection (Resolved). partial, unknown date. S/P hysterectomy with oophorectomy (Resolved). S/P recurrent ventral herniorrhaphy (Acute 07/17/18). Dr Michael Carroll, [facility]. S/P TKR (total knee replacement) (Resolved). Status post cataract extraction and insertion of intraocular lens of left eye (Chronic 04/09/18). Status post cataract extraction and insertion of intraocular lens of right eye (Chronic 04/23/18) PREVIOUS FUNCTIONAL STATUS/SOCIAL/FAMILY SUPPORTS:: Isaura lives in [place] with her . She is independent and does not receive any community services. CURRENT FUNCTIONAL STATUS:: Isaura was sitting up in a chair when met with her. She announced that she has been discharged and will be leaving soon. Isaura stated that she has had several similar episodes in the past and that she knows what to do at home, in terms of dietary restrictions. ADVANCE DIRECTIVES:: Has ADs and has her and children as agents, in that order, according to Isaura Has patient been provided with info about the portal/API?: Yes Did the patient sign up for the portal?: No CODE STATUS:: Full Code INSURANCE COVERAGE / FINANCIAL ISSUES:: Medicare. for Life MCR AB CURRENT HOME/COMMUNITY SERVICES/EQUIPMENT:: none PRIMARY CARE PHYSICIAN:: Dulce Hidalgo POTENTIAL DISCHARGE NEEDS:: Follow up with PCP and discharge plan of care PATIENT/FAMILY EDUCATION NEEDS:: Discharge plan, limitations, follow up plan, Ask Me Three TRANSPORTATION:: via private vehicle with family PLAN:: Isaura will be discharged home today. She will follow up with her surgeon and discharge plan of care which involves dietary restrictions. She will transport with her via private vehicle.
--- NOTE | 2019-12-18 10:14 | PGE_ITS ---
Date of Service Date of service: 12/18/19 Time of Service: 10:14 Assessment and Plan Assessment and plan (1) Small bowel obstruction: Status: Acute Assessment and plan: A\\ Segundo was admitted yesterday for another small bowel obstruction. She has had these in the past and they usually resolve without surgical intervention. She has had a BM since admission and she is passi ng a lot of flatus. Her pain has resolved. P\\ Saline lock her IV Clear liquids If she tolerates the clear liquid diet then will d/c home and she will slowly advance her diet to a soft diet as she has done in the past. Subjective Subjective Interval history since last seen: Isaura is doing well today. She had a large BM yesterday almost as soon as she was admitted. She is passing flatus and her abdominal pain has subsided. Exam GI Inspection: large pannus Palpation: soft and nontender Objective Objective Clinical Data: Abnormal lab results 12/18/19 12/18/19 Range/Units 07:48 07:48 WBC 4.27 L D (4.4-10.8) k/cumm RBC 3.79 L (4.00-5.20) m/cumm Hgb 10.8 L (12.0-15.5) g/dL Hct 34.2 L (36.0-46.0) % MCHC 31.6 L (32.0-36.0) g/dL RDW 14.9 H (11.7-14.6) % Absolute Lymphocytes 1.13 L (1.2-3.4) k/cumm Creatinine 1.20 H (0.55-1.02) mg/dL Glucose 113 H (74-106) mg/dL Vital Signs Temperature 95.5 F L 12/18/19 07:31 Temperature Source Tympanic 12/18/19 07:31 Pulse 57 L 12/18/19 07:31 Pulse Rhythm Regular 12/18/19 08:25 Respiratory Rate 16 12/18/19 07:31 Respiratory Effort 12/18/19 08:25 Respiratory Depth Normal 12/18/19 08:25 Respiratory Pattern Normal 12/18/19 08:25 Blood Pressure 134/75 12/18/19 07:31 Blood Pressure Mean 65 12/17/19 11:22 Blood Pressure Position Supine 07/07/20 08:33 Pulse Oximetry 98 07/08/20 07:31 Oxygen Delivery Method Room Air 12/18/19 07:31 Oxygen Flow Rate 0 12/18/19 07:31 Pain Level 0 12/18/19 07:31 Intake & Output 12/17/19 12/17/19 12/18/19 11:59 23:59 11:59 Intake Total 500 / 1775 1275 / 1775 2059 / 2059 Output Total 400 / 400 300 / 300 Balance 500 / 1375 875 / 1375 1760 / 1760 Weight 274 lb 0.553 oz Intake: IV 500 / 1475 975 / 1475 1959 / 1959 Oral 300 / 300 100 / 100 Output: Urine 400 / 400 300 / 300 Other: Urine Color Straw Yellow Urine Appearance Clear Clear Urine Odor Normal Normal Comment void x 1 Stool Size Large Stool Characteristics Soft Voiding Methods Toilet Toilet Laboratory Results WBC 4.27 k/cumm (4.4-10.8) L D 12/18/19 07:48 RBC 3.79 m/cumm (4.00-5.20) L 12/18/19 07:48 Hgb 10.8 g/dL (12.0-15.5) L 12/18/19 07:48 Hct 34.2 % (36.0-46.0) L 12/18/19 07:48 MCV 90.2 fL (80-95) 12/18/19 07:48 MCH 28.5 pg (27.0-33.0) 12/18/19 07:48 MCHC 31.6 g/dL (32.0-36.0) L 12/18/19 07:48 RDW 14.9 % (11.7-14.6) H 12/18/19 07:48 Plt Count 221 x1000/uL (130-400) 12/18/19 07:48 MPV 10.1 fL (8.0-11.0) 12/18/19 07:48 Immature Gran % 0.2 % 12/18/19 07:48 Neutrophils % 59.5 12/18/19 07:48 Lymphocytes % 26.5 12/18/19 07:48 Monocytes % 10.8 12/18/19 07:48 Eosinophils % 2.8 12/18/19 07:48 Basophils % 0.2 12/18/19 07:48 Absolute Neutrophils 2.54 k/cumm (1.2-6.7) 12/18/19 07:48 Absolute Lymphocytes 1.13 k/cumm (1.2-3.4) L 12/18/19 07:48 Absolute Monocytes 0.46 k/cumm (0.11-0.7) 12/18/19 07:48 Absolute Eosinophils 0.12 k/cumm (0.0-0.7) 12/18/19 07:48 Absolute Basophils 0.01 k/cumm (0.0-0.2) 12/18/19 07:48 Sodium 140 mmol/L (136-145) 12/18/19 07:48 Potassium 4.3 mmol/L (3.5-5.1) 12/18/19 07:48 Chloride 104 mmol/L (98-107) 12/18/19 07:48 Carbon Dioxide 31.2 mmol/L (21.0-32.0) 12/18/19 07:48 Anion Gap 4.8 mmol/L (3-11) 12/18/19 07:48 BUN 15 mg/dL (7-18) D 12/18/19 07:48 Creatinine 1.20 mg/dL (0.55-1.02) H 12/18/19 07:48 Estimated GFR/1.73 m2 43.56 (mL/min/1.73m2) 12/18/19 07:48 Glucose 113 mg/dL (74-106) H 12/18/19 07:48 Calcium 9.0 mg/dL (8.5-10.1) 12/18/19 07:48 Magnesium 1.9 mg/dL (1.8-2.4) 12/17/19 09:00 Total Bilirubin 0.4 mg/dL (0.2-1.0) 12/17/19 09:00 AST 21 U/L (15-37) 12/17/19 09:00 ALT 15 U/L (14-59) 12/17/19 09:00 Alkaline Phosphatase 86 U/L (46-116) 12/17/19 09:00 Troponin I < 0.05 ng/mL (<0.06) 12/17/19 09:00 Total Protein 6.8 g/dL (6.4-8.2) 12/17/19 09:00 Albumin 3.1 g/dL (3.4-5.0) L 12/17/19 09:00 Lipase 40 U/L (73-393) 12/17/19 09:00 Urine Color Yellow (Yellow) 12/17/19 09:00 Urine Clarity Clear (Clear) 12/17/19 09:00 Urine pH 7.5 (5-8) 12/17/19 09:00 Ur Specific [place] 1.020 (1.005-1.025) 12/17/19 09:00 Urine Protein Negative mg/dL (Negative) 12/17/19 09:00 Urine Ketones Negative mg/dL (Negative) 12/17/19 09:00 Urine Blood Negative (Negative) 12/17/19 09:00 Urine Nitrite Negative (Negative) 12/17/19 09:00 Urine Bilirubin Negative (Negative) 12/17/19 09:00 Urine Urobilinogen 1.0 EU/dL (Up TO 0.2) H 12/17/19 09:00 Ur Leukocyte Esterase Negative (Negative) 12/17/19 09:00 Urine Glucose Negative mg/dL (Negative) 12/17/19 09:00 COVID-19 PCR Negative (Negative) 12/17/19 11:18 Nasopharyn COVID-19 PCR Not Applicable 12/17/19 11:18 Ref Test Perform Site [facility] lab 12/17/19 11:18
--- NOTE | 2019-12-18 10:47 | DSE_ITS ---
Date of service: 12/18/19 Time of Service: 12:51 DS: Diagnosis Discharge Diagnosis (1) Small bowel obstruction: Status: Acute Discharge Plan Disposition Patient Disposition: HOME Condition: Stable Discharge Details Chief Complaint: Abd Prob Clinical Impression: Small bowel obstruction Reason For Visit: SMALL BOWEL OBSTRUCTION Admit Date/Time: 12/17/19 10:28 Admit Provider: Mayra Aguilera Attending Provider: Mayra Aguilera Primary Care Provider: Dulce Hidalgo ED Provider: Amilcar Zabala Hospital Course Hospital Course: Isaura was seen yesterday 12/17/2019 in the ER with abdominal pain, N/V. CT scan showed a SBO again. She was admitted and within a few hours she had a large bowel movement nad started passing flatus. The next morning she felt well. Her abdominal pain had resolved and she continued to pass flatus. She was started on a clear liquid diet which she tolerated without increase in abdominal pain or N/V. Segundo was discharged to home on a clear liquid diet and asked to slowly advance herself to a soft diet as tolerated just as she has done in the past. Home Meds and New Rx's Prescriptions: Continued cetirizine [Zyrtec] 10 mg tablet 10 mg PO DAILY PRNRF: 0 polyethylene glycol 3350 [Miralax] 17 gram/dose powder 17 gm PO DAILY RF: 0 omeprazole 20 mg capsule,delayed release(DR/EC) 20 mg PO BID RF: 0 acidophilus-pectin, citrus [Acidophilus Probiotic] 100 million cell-10 mg capsule 1 cap PO DAILY RF: 0 acetaminophen [Tylenol Extra Strength] 500 mg tablet 500 mg PO PRN RF: 0 alum-mag hydroxide-simeth 200-200-20 mg/5 mL suspension 10 ml PO QHS RF: 0 simvastatin 10 MG tablet 10 mg PO HS RF: 0 atenolol 50 MG tablet 50 mg PO DAILY RF: 0 calcium carb and citrate-vitD3 [Citracal-D3 Slow Release] 1 EACH tablet extended release 1 tab PO DAILY RF: 0 ondansetron 4 mg tablet,disintegrating 4 mg PO Q6H PRN (Reason: nausea and vomiting) Qty: 14 RF: 0 hydrochlorothiazide 25 MG tablet 25 mg PO DAILY RF: 0 cyanocobalamin (vitamin B-12) [Vitamin B-12] 1,000 mcg Tablet 1,000 mcg PO DAILY RF: 0 bisacodyl [Dulcolax (bisacodyl)] 5 mg Tablet,Delayed Release (Dr/Ec) 5 mg PO DAILY PRNRF: 0 magnesium oxide 400 mg Capsule 400 mg PO DAILY RF: 0 Xarelto 10 mg Tablet 10 mg PO DAILY RF: 0 alum-mag hydroxide-simeth [Mylanta Maximum Strength] 400-400-40 mg/5 mL Suspension RF: 0 Discharge Instructions Activity:: Activity as Tolerated Equipment/Supplies:: No Equipment Needed Diet:: As Tolerated Discharge Orders Discharge Orders: Discharge Order (Routine); Ordered 12/18/19 Ordered By: Merced Paz DS: Summary Status at Discharge Functional status at discharge: independent ambulation Overall status at discharge: patient is back to baseline Mental Status: mental status grossly normal Speech and Movement: speech and movement normal Mood: congruent mood Affect: normal affect Exam GI Inspection: normal to inspection and large pannus Palpation: soft and nontender Auscultation: normal bowel sounds Psych Mental Status: mental status grossly normal Speech and Movement: speech and movement normal Mood: congruent mood Affect: normal affect DS: Data Vitals/I&O Vitals and I&O: Vital Signs Temperature 95.5 F L 12/18/19 07:31 Temperature Source Tympanic 12/18/19 07:31 Pulse 57 L 12/18/19 07:31 Pulse Rhythm Regular 12/18/19 08:25 Respiratory Rate 16 12/18/19 07:31 Respiratory Effort 12/18/19 08:25 Respiratory Depth Normal 12/18/19 08:25 Respiratory Pattern Normal 12/18/19 08:25 Blood Pressure 134/75 12/18/19 07:31 Blood Pressure Mean 65 12/17/19 11:22 Blood Pressure Position Supine 12/17/19 08:33 Pulse Oximetry 98 12/18/19 07:31 Oxygen Delivery Method Room Air 12/18/19 07:31 Oxygen Flow Rate 0 12/18/19 07:31 Pain Level 0 12/18/19 07:31 Intake & Output 12/17/19 12/17/19 12/18/19 11:59 23:59 11:59 Intake Total 500 / 1775 1275 / 1775 2059 / 2059 Output Total 400 / 400 300 / 300 Balance 500 / 1375 875 / 1375 1760 / 1760 Weight 274 lb 0.553 oz Intake: IV 500 / 1475 975 / 1475 1959 / 1959 Oral 300 / 300 100 / 100 Output: Urine 400 / 400 300 / 300 Other: Urine Color Straw Yellow Urine Appearance Clear Clear Urine Odor Normal Normal Comment void x 1 Stool Size Large Stool Characteristics Soft Voiding Methods Toilet Toilet Data Completed and Pending Labs on day of discharge: Labs from last 24 hours 12/18/19 12/18/19 12/17/19 07:48 07:48 11:18 WBC 4.27 L D RBC 3.79 L Hgb 10.8 L Hct 34.2 L MCV 90.2 MCH 28.5 MCHC 31.6 L RDW 14.9 H Plt Count 221 MPV 10.1 Immature Gran % 0.2 Neutrophils % 59.5 Lymphocytes % 26.5 Monocytes % 10.8 Eosinophils % 2.8 Basophils % 0.2 Absolute Neutrophils 2.54 Absolute Lymphocytes 1.13 L Absolute Monocytes 0.46 Absolute Eosinophils 0.12 Absolute Basophils 0.01 Sodium 140 Potassium 4.3 Chloride 104 Carbon Dioxide 31.2 Anion Gap 4.8 BUN 15 D Creatinine 1.20 H Estimated GFR/1.73 m2 43.56 Glucose 113 H Calcium 9.0 COVID-19 PCR Negative Nasopharyn COVID-19 PCR Not Applicable Ref Test Perform Site [facility] Medical History Actinic keratosis (Chronic) Anemia (Chronic) Benign essential tremor (Chronic) BRCA2 positive (Chronic) Breast cancer, stage 1 (Chronic) Dehydration (Chronic) GERD (gastroesophageal reflux disease) (Chronic) H/O ovarian cancer (Chronic) H/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) H/O renal cell cancer (Chronic) HTN (hypertension) (Chronic) Incisional hernia (Resolved) 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 Obesity (Chronic) Osteopenia (Chronic) Pulmonary embolism (Chronic) Seborrheic keratoses (Chronic) Stage 3 chronic kidney disease (Chronic) Ventral hernia (Resolved) Surgical History H/O partial cystectomy (Resolved) H/O right nephrectomy (Acute) Right, with partial uretectomy, Dr Ariel Seigne History of appendectomy (Resolved) unknown date History of bowel resection (Resolved) partial, unknown date S/P hysterectomy with oophorectomy (Resolved) S/P recurrent ventral herniorrhaphy (Acute 07/17/18) Dr Michael Carroll, [facility] S/P TKR (total knee replacement) (Resolved) Status post cataract extraction and insertion of intraocular lens of left eye (Resolved 04/09/18) Status post cataract extraction and insertion of intraocular lens of right eye (Resolved 04/23/18) Social History Smoking/Tobacco Use Status: Never Alcohol Intake: never Drug use: Never Substance use type: does not use Do you feel safe at home: Yes Do you feel safe in your relationship?: Yes Additional Social history: unable to assess privately
--- NOTE | 2019-12-18 12:58 | PDOC.CMDIS ---
- If Service Date Differs Date of service: 12/18/19 Time of Service: 12:58 LACE Index Scoring Tool - Questions: Length of Stay (in days): 1 Acuity (Admit via E.D.?): Yes Comorbidities: Any Tumor Care Management Discharge Reason for Hospitalization: SBO Discharge Plan: Isaura will be discharged home today. She will follow up with her surgeon and discharge plan of care which involves dietary restrictions. She will transport with her via private vehicle. Patient/Family Education Needs: Discharge plan, limitations, follow up plan, Ask Me Three
== END 2019-12-18 13:30 | disposition home or self-care (01) | DRG 389 ==
LOC: ER 11:33 → MS 13:28
PROVIDERS: Admitting Provider Surgery; Emergency Provider Student in an Organized Health Care Education/Training Program; PCP Family Medicine; Visit Provider Surgery
DX: K56.600 Partial intestinal obstruction, unspecified as to cause (principal); Z68.43 Body mass index [BMI] 50.0-59.9, adult; D64.9 Anemia, unspecified; G25.0 Essential tremor; E86.0 Dehydration; K21.9 Gastro-esophageal reflux disease without esophagitis; I10 Essential (primary) hypertension; D70.2 Other drug-induced agranulocytosis; Z79.01 Long term (current) use of anticoagulants; I12.9 Hypertensive chronic kidney disease with stage 1 through stage 4 chronic kidney disease, or unspecified chronic kidney disease; L57.0 Actinic keratosis; Z85.43 Personal history of malignant neoplasm of ovary; Z85.528 Personal history of other malignant neoplasm of kidney; Z85.51 Personal history of malignant neoplasm of bladder; C50.919 Malignant neoplasm of unspecified site of unspecified female breast; E66.9 Obesity, unspecified; M85.80 Other specified disorders of bone density and structure, unspecified site; N18.3 Chronic kidney disease, stage 3 (moderate)
CPT/HCPCS: 36415; 80048; 80053; 83690; 96361; 96374; 99222; 99232; 99238; 99285; U0003; 74176; 81003; 83735; 84484; 85025; 99284; J2405

== ENCOUNTER 2020-03-02 01:06 | Outpatient (CLI) | payer MEDICARE, OTHER, SELFPAY ==
--- NOTE | 2020-03-02 17:13 | DI.DEXA_ITS ---
EXAM: XR DEXA BONE DENSITY W/WO MANISHA CLINICAL HISTORY: OSTEOPENIA,SCREENING FOR OSTEOPOROSIS IN POSTMENOPAUSAL WOMAN, Z78.0 TECHNIQUE: COMPARISON: CR RIGHT HIP COMPLETE from 08/23/2011 FINDINGS: Lateral Spine Image: Unremarkable. No compression deformities identified. Left hip: Total T-Score: -0.9 Total Z-Score: 1.0 T- and Z-scores: Within normal limits. Lumbar Spine: Total T-Score: 0.8 Total Z-Score: 3.3 T- and Z-scores: Within normal limits. IMPRESSION: No evidence of osteoporosis.
== END 2020-03-02 01:26 ==
PROVIDERS: PCP Family Medicine; Visit Provider Family Medicine
DX: Z78.0 Asymptomatic menopausal state (principal)
CPT/HCPCS: 77080

== ENCOUNTER 2020-07-07 21:41 | Emergency (ER) | payer MEDICARE, OTHER, SELFPAY ==
--- NOTE | 2020-07-07 21:37 | W.ED.GENAD ---
Discharge Plan Disposition Patient Disposition: HOME Condition: Stable Discharge Details Clinical Impression: Small bowel obstruction Primary Care Provider: Dulce Hidalgo ED Provider: Jitendra Martin Home Meds and New Rx's Prescriptions: Continued cetirizine [Zyrtec] 10 mg tablet 10 mg PO DAILY PRNRF: 0 polyethylene glycol 3350 [Miralax] 17 gram/dose powder 17 gm PO DAILY RF: 0 omeprazole 20 mg capsule,delayed release(DR/EC) 20 mg PO BID RF: 0 acetaminophen [Tylenol Extra Strength] 500 mg tablet 500 mg PO PRN RF: 0 alum-mag hydroxide-simeth 200-200-20 mg/5 mL suspension 10 ml PO QHS RF: 0 simvastatin 10 MG tablet 10 mg PO HS RF: 0 atenolol 50 MG tablet 50 mg PO DAILY RF: 0 calcium carb and citrate-vitD3 [Citracal-D3 Slow Release] 1 EACH tablet extended release 1 tab PO DAILY RF: 0 ondansetron 4 mg tablet,disintegrating 4 mg PO Q6H PRN (Reason: nausea and vomiting) Qty: 14 RF: 0 hydrochlorothiazide 25 MG tablet 25 mg PO DAILY RF: 0 cyanocobalamin (vitamin B-12) [Vitamin B-12] 1,000 mcg Tablet 1,000 mcg PO DAILY RF: 0 magnesium oxide 400 mg Capsule 400 mg PO DAILY RF: 0 Xarelto 10 mg Tablet 10 mg PO DAILY RF: 0 alum-mag hydroxide-simeth [Mylanta Maximum Strength] 400-400-40 mg/5 mL Suspension RF: 0 Discharge Instructions Instructions: Bowel Obstruction (ED) Additional Instructions: your cat scan showed you have a small bowel obstruction you chose to go home rather than be admitted for observation if you change your mind, have severe worsening pain or feel more ill return to the emergency department follow up with your primary care provider as soon as possible Medical Decision Making 79 yo female who has had multiple prior sbo's comes in with ems with 1 day of n/v and abdominal pain when she vomits. She denies fevers, chest pain, sob,headache, urinary symptoms. She arrives HD stable feeling nausea no current pain on exam unless I palpate and she has tenderness to deep palpation to both lower quadranta no guarding or rebound. STates 1.5 days without a BM. Suspect recurrent sbo, will obtain labs and ct and reassess. No pain out of proportion to exam so doubt mesenteric ischemia at this time. pt's labs and imaging returned and she has a sbo, no significant changes on lab work. I recommended admission but after she thought about it and never requiring any type of intervention for her sbo's to resolve in the past she declines admission and would like to try and go home. She has the capacity to make her own decisions and understands risks of worsening sbo including mesenteric ischemia and possible and permanent disability and is willing to take these risks. She understands she can always return if she changes her mind and also understands need to return if she worsens in anyway. I did offer her pain medicine but she declines as she just wants to take tylenol and she already has zofran at home. Differential Diagnosis Differential Diagnosis: sbo, gastroenteritis Medical Records Medical records reviewed: Yes I reviewed the patient's medical records. Imaging Data Radiologic Study: Attestation: I personally reviewed and interpreted this imaging study as follows: Imaging: CT Scan Radiologist's impression: IMPRESSION: 1. Mild, developing partial small bowel obstruction, pattern similar to prior, likely due to adhesions. 2. Additional findings as described. Lab Data Lab results reviewed: Yes I reviewed the patient's lab results. HPI General Mode of arrival: EMS. Date/Time Provider Initiated Documentation: 07/07/20 21:49. Limitations to Documentation: no limitations. Information obtained by: patient. History of Present Illness 79 year old F presents to the emergency department with the chief complaint of vomit, described as moderate, Patient started experiencing this day(s) (1) and it has been constant. No relieving factors improve symptom(s), No exacerbating factors reported . Patient did receive the following treatments prior to arrival, none Related Data Home Medications Medication Instructions Recorded Confirmed atenolol 50 mg PO DAILY 11/30/13 12/17/19 calcium carb and citrate-vitD3 1 tab PO DAILY 11/30/13 07/11/19 [Citracal-D3 Slow Release] simvastatin 10 mg PO HS 11/30/13 12/17/19 hydrochlorothiazide 25 mg PO DAILY 12/21/17 12/17/19 cyanocobalamin (vitamin B-12) 1,000 mcg PO DAILY 04/04/18 12/17/19 [Vitamin B-12] magnesium oxide 400 mg PO DAILY 04/04/18 12/17/19 cetirizine 10 mg tablet 10 mg PO DAILY PRN tab 07/27/18 12/17/19 Xarelto 10 mg PO DAILY 08/26/18 12/17/19 acetaminophen 500 mg tablet 500 mg PO PRN tab 09/21/18 12/17/19 aluminum-mag hydroxide-simethicone 10 ml PO QHS ml 09/21/18 12/17/19 200 mg-200 mg-20 mg/5 mL oral susp omeprazole 20 mg capsule,delayed 20 mg PO BID cap 09/21/18 12/17/19 release polyethylene glycol 3350 17 17 gm PO DAILY 09/21/18 12/17/19 gram/dose oral powder ondansetron 4 mg PO Q6H PRN #14 tab 07/11/19 12/17/19 alum-mag hydroxide-simeth [Mylanta 12/17/19 12/17/19 Maximum Strength] Previous Rx's Medication Instructions Recorded ondansetron 4 mg PO Q6H PRN #14 tab 07/11/19 Allergies Allergy/AdvReac Type Severity Reaction Status Date / Time latex Allergy Mild Verified 12/17/19 08:36 Sulfa (Sulfonamide AdvReac Severe liver Verified 12/17/19 08:36 Antibiotics) damage ciprofloxacin [From Cipro] AdvReac Intermediate unknown Verified 12/17/19 08:36 glucosamine AdvReac Intermediate Nausea Verified 12/17/19 08:36 glue on bandaids Allergy Mild rash Uncoded 12/17/19 08:36 Epideral Dressing AdvReac Severe Blistering Uncoded 12/17/19 08:36 General SADIE: 3 Review of Systems All systems reviewed & are unremarkable except as noted in HPI and below Constitutional Constitutional: Denies chills, Denies fever(s) and Denies weakness Cardiovascular Cardiovascular: Denies chest pain and Denies dyspnea Respiratory Respiratory: Denies cough and Denies dyspnea Neurologic Neurologic: Denies weakness Psychiatric Psychiatric: Denies depression [facility] Medical History (Updated 07/07/20 @ 23:17 by Jitendra Martin MD) Actinic keratosis Anemia Benign essential tremor BRCA2 positive Breast cancer, stage 1 Dehydration GERD (gastroesophageal reflux disease) H/O ovarian cancer H/O primary malignant neoplasm of urinary bladder H/O renal cell cancer HTN (hypertension) Incisional hernia IT band syndrome Neutropenia drug induced Obesity Osteopenia Pulmonary embolism Seborrheic keratoses Stage 3 chronic kidney disease Ventral hernia Surgical History H/O partial cystectomy H/O right nephrectomy Right, with partial uretectomy, Dr Ariel Do History of appendectomy unknown date History of bowel resection partial, unknown date S/P hysterectomy with oophorectomy S/P recurrent ventral herniorrhaphy (07/17/18) Dr Michael Carroll, [facility] S/P TKR (total knee replacement) Status post cataract extraction and insertion of intraocular lens of left eye (04/09/18) Status post cataract extraction and insertion of intraocular lens of right eye (04/23/18) Social History Smoking/Tobacco Use Status: Never Smoking risk assessment performed?: Yes Alcohol Intake: never Drug use: Never Substance use type: does not use Current gender identity: female Do you feel safe at home: Yes Do you feel safe in your relationship?: Yes Additional Social history: unable to assess privately Exam Const General: no acute distress Orientation: alert [facility] Head: normal to inspection Ears: external ears normal General nose exam: external nose normal Mouth: moist mucous membranes Eyes General: appearance normal, both eyes and all related structures Neck Neck: normal visual inspection Resp Effort & Inspection: normal respiratory effort and able to speak in complete sentences Cardio Rate: regular rate GI Palpation: not rigid Skin General skin exam: no rashes or lesions noted Neuro General: patient alert and patient oriented x3 Extrem General: normal to inspection Psych Mental Status: mental status grossly normal
[2020-07-07 21:42] VITALS: BP 136/61; PULSE 70; RESP 18; TEMP 36.6; O2SAT 96
--- NOTE | 2020-07-07 21:45 | DI.CT_ITS ---
EXAM: CT ABDOMEN PELVIS W CLINICAL HISTORY: n/v abdominal pain. TECHNIQUE: Imaging Protocol: Axial computed tomography images with coronal and sagittal reformatted images were created and reviewed CONTRAST MATERIAL: Intravenous: Omnipaque 350 Contrast volume:structured data in ml Oral: yes / no COMPARISON: CT CT ABDOMEN PELVIS WO from 12/17/2019 FINDINGS: ABDOMEN: Lung Bases: Mild fibrotic changes. Mildly enlarged heart. Liver: Normal density. No measurable mass. Gallbladder and biliary tract: No radiodense calculus or dilation. Pancreas: Normal density, no abnormal calcifications or inflammatory process. Spleen: Normal. Kidneys: Status post right nephrectomy. Left kidney normal size, contour and axis. No radiodense sto mary or obstructive uropathy. No masses seen. Adrenal glands: No masses seen. Abdominal Aorta: Abdominal portion non-dilated. Mild atherosclerotic changes. PELVIS: Bladder: Nearly empty. No change in the appearance of the thick wall and surrounding haziness in the fat. Bowel: There are dilated loops bowel in the left mid and lower quadrants with decompressed small krysta l distally. There is a transition point in the left lower quadrant. There is no pneumatosis or wall thickening. The appendix and colon are unremarkable. Peritoneal cavity: No ascites, collection. Mild mesenteric inflammatory response. No free air. Bones: Stable L4 compression fracture, moderate. No new compression fractures. Degenerative disc an d facet joint changes. Reproductive organs: Status post hysterectomy. Lymph nodes: Unremarkable. Impression: Dilated loops of small bowel in the left mid and lower abdomen with transition point in the left lowe r quadrant. The findings are similar to the previous exam. RADIATION DOSE DELIVERED: 1,421.79mGy.cm Total DLP DATA REPOSITORY: All CT scans at this facility are submitted to the National Radiology Data Registry (NRDR) Dose Index Registry (DIR) with the [employer] (ACR). RADIATION OPTIMIZATION: All CT scans at this facility use at least one of these dose optimization te chniques: automated exposure control; mA and/or kV adjustment per patient size (includes targeted exa ms where dose is matched to clinical indication); or iterative reconstruction.
[2020-07-07] MEDS: Normal Saline 1,000 ML 1000 ML IV (21:56)
[2020-07-07 21:57] VITALS: TEMP 36.6
[2020-07-07] MEDS: Ondansetron 4 MG/2 ML VIAL IVP (21:57)
[2020-07-07 22:13] LABS: Abs Immature Grans 0.02 10^3/uL (0.0-0.06); Absolute Basophil Count 0.02 10^3/uL (0.0-0.2); Absolute Eosinophil Count 0.05 10^3/uL (0.0-0.7); Absolute Lymphocyte Count 1.27 10^3/uL (1.2-3.4); Absolute Monocyte Count 0.45 10^3/uL (0.1-0.8); Absolute Neutrophil Count 6.03 10^3/uL (1.2-6.7); Basophils % 0.3; Eosinophils % 0.6; HCT 37.7 % (36.0-46.0); HGB 12.4 g/dL (11.2-15.7); Immature Grans % 0.3; Lymphocytes % 16.2; MCHC 32.9 % (32.0-36.0); MCV 88.3 fL (80-95); MPV 10.6 fL (8.0-11.0); Monocytes % 5.7; Neutrophils % 76.9; Nucleated RBC 0 %; Platelet Count 252 10^3/uL (130-400); RBC 4.27 10^6/uL (3.93-5.22); RDW 13.9 % (11.7-14.6); RDW-SD 44.7 fL; WBC 7.84 10^3/uL (4.4-10.8)
[2020-07-07] MEDS: Omnipaque 350 MG/ML 100 ML BTL IV (22:13)
[2020-07-07 22:16] LABS: ALT 19 U/L (14-59); AST 17 U/L (15-37); Albumin 3.1 g/dL (3.4-5.0); Alkaline Phosphatase 90 U/L (46-116); Anion Gap 5.5 mmol/L (3-11); BUN 21 mg/dL (7-18); Bilirubin, Direct 0.15 mg/dL (0.00-0.20); Bilirubin, Total 0.6 mg/dL (0.2-1.0); CO2 29.5 mmol/L (21.0-32.0); CREATININE 1.45 mg/dL (0.55-1.02); Calcium 9.5 mg/dL (8.5-10.1); Chloride 100 mmol/L (98-107); Estimated GFR 35.02 (mL/min/1.73m2); Glucose 178 mg/dL (74-106); Lipase 47 U/L (73-393); Potassium 3.6 mmol/L (3.5-5.1); Sodium 135 mmol/L (136-145); Total Protein 6.8 g/dL (6.4-8.2)
[2020-07-07] MEDS: Normal Saline - Diluent 50 ML VIAL IV (22:21)
[2020-07-07] MEDS: Normal Saline Flush 10 ML SYR IVP ×2 (22:21→22:22)
[2020-07-07 22:37] LABS: INR 1.1 (0.9-1.1); PTT Activated 25.8 sec (21.0-27.5); Prothrombin Time 11.5 sec (9.3-11.0)
--- NOTE | 2020-07-07 22:48 | DI.VRAD_ITS ---
PROCEDURE INFORMATION: Exam: CT Abdomen And Pelvis With Contrast Exam date and time: 07/07/2020 22:11 Age: 79 years old Clinical indication: Other: N/v abdominal pain; Prior surgery; Surgery date: 6+ months; Surgery type: Right kidney , bowel resection, hernia, ; patient HX: HX ovarian , bladder and breast CA TECHNIQUE: Imaging protocol: Computed tomography of the abdomen and pelvis with intravenous contrast. Contrast material: OMNIPAQUE 350; Contrast volume: 100 ml; Contrast route: INTRAVENOUS (IV); COMPARISON: CT ABDOMEN PELVIS WO 12/17/2019 09:38 FINDINGS: Lungs: The lung bases appears somewhat hyperinflated which is similar to prior. Chronic appearing mild peripheral interstitial changes similar to prior. Heart: At least mild cardiomegaly is partially seen and similar to prior. Mediastinal space: Tiny hiatal hernia. Liver: No hepatic masses. Gallbladder and bile ducts: No calcified stones. No ductal dilation. Pancreas: No ductal dilation. No masses. Spleen: No splenomegaly or focal lesions. Adrenal glands: Normal. No mass. Kidneys and ureters: Right nephrectomy. No left hydronephrosis or renal masses. Stomach and bowel: Mild dilation of mid small bowel, predominantly left-sided, descending into the pelvis, pattern similar to prior. Maximal diameter of fluid-filled small bowel is 31 mm. Minor edema in the associated mesentery. No small bowel wall thickening or ischemia. There is a relatively gradual decompression of distal small bowel. No acute pathology in the colon. Appendix: No evidence of appendicitis. Intraperitoneal space: Trace free fluid along the right margin of the liver versus a small chronic subcapsular fluid collection, stable. Vasculature: Atherosclerosis. No aortic aneurysm. Lymph nodes: No significantly enlarged lymph nodes. Urinary bladder: Hazy appearance of the fat surrounding the urinary bladder is similar to prior. Question chronic post treatment changes or sclerosis. The urinary bladder is mostly decompressed without significant wall thickening. Reproductive: Hysterectomy. Bones/joints: Chronic volume loss at L4 similar to prior. Degenerative changes in the spine. No acute fracture or subluxation. Soft tissues: Postsurgical changes again seen in the ventral abdominal wall. IMPRESSION: 1. Mild, developing partial small bowel obstruction, pattern similar to prior, likely due to adhesions. 2. Additional findings as described. Dictated and Authenticated by: Ainsley Richardson MD. Ordering:STANLEY Ham MD
[2020-07-07] MEDS: ACETAMINOPHEN 1,000 MG/100 ML BTL 400 MG IVPB (23:23)
[2020-07-08 00:10] VITALS: BP 146/48; PULSE 61; RESP 16; TEMP 36.6; O2SAT 93
[2020-07-08 00:28] VITALS: BP 146/48; PULSE 61; RESP 16; TEMP 36.6; O2SAT 93
== END 2020-07-08 00:25 | disposition home or self-care (01) ==
PROVIDERS: Emergency Provider Emergency Medicine; PCP Family Medicine
DX: K56.51 Intestinal adhesions [bands], with partial obstruction (principal); I12.9 Hypertensive chronic kidney disease with stage 1 through stage 4 chronic kidney disease, or unspecified chronic kidney disease; N18.30 Chronic kidney disease, stage 3 unspecified
CPT/HCPCS: 36415; 80053; 83690; 96361; 96365; 96375; 99285; U0003; 74177; 81003; 82248; 85025; 85610; 85730; 99284; J0131; J2405; J3490

== ENCOUNTER 2020-07-22 10:24 | Outpatient (REF) | payer MEDICARE, OTHER, SELFPAY ==
[2020-07-22 13:53] LABS: Hemoglobin A1C 6.3 % (<5.7)
[2020-07-22 14:18] LABS: ALT 15 U/L (14-59); AST 18 U/L (15-37); Albumin 3.3 g/dL (3.4-5.0); Alkaline Phosphatase 89 U/L (46-116); Anion Gap 6.9 mmol/L (3-11); BUN 26 mg/dL (7-18); Bilirubin, Total 0.3 mg/dL (0.2-1.0); CO2 31.1 mmol/L (21.0-32.0); CREATININE 1.4 mg/dL (0.55-1.02); Calcium 9.4 mg/dL (8.5-10.1); Chloride 103 mmol/L (98-107); Estimated GFR 36.46 (mL/min/1.73m2); Ferritin 21 ng/mL (8-252); Folate 11.1 ng/mL (8.6-20.0); Glucose 128 mg/dL (74-106); Magnesium 2.2 mg/dL (1.8-2.4); Potassium 4.2 mmol/L (3.5-5.1); Sodium 141 mmol/L (136-145); Total Protein 6.5 g/dL (6.4-8.2); Vitamin B12 447 pg/mL (193-986)
[2020-07-22 14:23] LABS: Iron 57 ug/dL (50-170); Total Iron Binding Capacity 337 ug/dL (250-450); Transferrin Sat 17 % (15-50)
[2020-07-22 14:29] LABS: PHOSPHORUS 3.3 mg/dL (2.6-4.7)
[2020-07-23 04:45] LABS: Vitamin D 25 Total 26.9 ng/ml (30-100)
[2020-07-23 08:37] LABS: Parathyroid Hormone,Intact 73 pg/mL (19-88)
== END 2020-07-22 10:25 | disposition home or self-care (01) ==
LOC: NCHCN 10:24
PROVIDERS: PCP Family Medicine; Visit Provider Family Medicine
DX: R73.03 Prediabetes (principal); I10 Essential (primary) hypertension; E55.9 Vitamin D deficiency, unspecified; E53.8 Deficiency of other specified B group vitamins; N18.30 Chronic kidney disease, stage 3 unspecified; R79.89 Other specified abnormal findings of blood chemistry
CPT/HCPCS: 80053; 82306; 82607; 82728; 82746; 83036; 83540; 83550; 83735; 83970; 84100

== ENCOUNTER 2021-01-25 09:15 | Outpatient (REF) | payer MEDICARE, OTHER, SELFPAY ==
[2021-01-25 15:37] LABS: Hemoglobin A1C 6.3 % (<5.7)
[2021-01-25 15:42] LABS: Anion Gap 9.5 mmol/L (3-11); BUN 26 mg/dL (7-18); CO2 29.5 mmol/L (21.0-32.0); CREATININE 1.3 mg/dL (0.55-1.02); Calcium 9.3 mg/dL (8.5-10.1); Chloride 104 mmol/L (98-107); Estimated GFR 39.61 (mL/min/1.73m2); Ferritin 19 ng/mL (8-252); Glucose 111 mg/dL (74-106); Potassium 4.3 mmol/L (3.5-5.1); Sodium 143 mmol/L (136-145)
[2021-01-27 13:11] LABS: Parathyroid Hormone,Intact 54 pg/mL (19-88)
== END 2021-01-25 09:16 | disposition home or self-care (01) ==
LOC: NCHCN 09:15
PROVIDERS: PCP Family Medicine; Visit Provider Family Medicine
DX: R73.03 Prediabetes (principal); N18.30 Chronic kidney disease, stage 3 unspecified; R79.89 Other specified abnormal findings of blood chemistry
CPT/HCPCS: 80048; 82728; 83036; 83970

== ENCOUNTER 2021-02-16 16:27 | Outpatient (REF) | payer MEDICARE, OTHER, SELFPAY ==
[2021-02-17 02:14] LABS: COVID-19 RT-PCR UVMMC Result Negative (Negative)
== END 2021-02-16 16:28 | disposition home or self-care (01) ==
LOC: LBN 16:27
PROVIDERS: PCP Family Medicine; Visit Provider Nurse Practitioner Family
DX: Z20.822 Contact with and (suspected) exposure to COVID-19 (principal); J06.9 Acute upper respiratory infection, unspecified
CPT/HCPCS: U0003; U0005

== ENCOUNTER 2021-02-22 02:48 | Outpatient (CLI) | payer MEDICARE, OTHER, SELFPAY ==
--- NOTE | 2021-02-22 | DI.CT_ITS ---
Exam(s) CT CHEST/ABD/PEL WO EXAM: CT CHEST/ABD/PEL WO CLINICAL HISTORY: LOWER URINARY TRACT SYMPTOMS, R39.9, CA RENAL PELVIS RT, C65.1. TECHNIQUE: Imaging Protocol: Axial computed tomography images with coronal and sagittal reformatted images were created and reviewed CONTRAST MATERIAL: Intravenous: None given due to low GFR. Oral: yes COMPARISON: CT CT ABDOMEN PELVIS W from 07/07/[address] ABDOMEN PELVIS W from 07/07/2020 CR XR CHEST 2V PA LATERAL from 02/22/2021 CR XR CHEST 2V PA LATERAL from 02/22/2021 FINDINGS: CHEST: Tracheobronchial tree: Patent where visualized. Mediastinum and Jenifer: No dominant adenopathy or fluid collection. Pulmonary parenchyma: No consolidation or dominant measurable mass. Mild fibrotic changes, greater p eripherally at the lung bases. Pleura: No effusion or pneumothorax. Lymph nodes: Within normal limits. Aorta: Thoracic portion non-dilated. [id number] aortic calcifications. Heart: [id number]-[id number] dilatation left atrium and left ventricle. Coronary artery calcifications. Bones: Mild compression fractures of T4 and T5. No lytic or blastic lesions. ABDOMEN: Liver: Normal density. No measurable mass. Gallbladder and biliary tract: No radiodense calculus or dilation. Pancreas: Normal density, no abnormal calcifications or inflammatory process. Spleen: Normal. Kidneys: Status post right nephrectomy. Left kidney normal size, contour and axis. No radiodense sto mary or obstructive uropathy. No masses seen. Adrenal glands: No masses seen. Aorta: Abdominal portion non-dilated. Moderate atherosclerotic changes. Lymph nodes: Within normal limits. Soft tissues: Unremarkable. PELVIS: Bladder: Symmetric distention, no gross wall thickening. Bowel: No obstruction or bowel wall thickening. Peritoneal cavity: No ascites, collection or mesenteric inflammatory response. Bones: Stable compression fracture of L4. Degenerative disc changes. Reproductive organs: Within normal limits. IMPRESSION: No evidence of metastatic disease in the chest abdomen or pelvis.. RADIATION DOSE DELIVERED: 1,431.75mGy.cm Total DLP DATA REPOSITORY: All CT scans at this facility are submitted to the National Radiology Data Registry (NRDR) Dose Index Registry (DIR) with the [employer] (ACR). RADIATION OPTIMIZATION: All CT scans at this facility use at least one of these dose optimization te chniques: automated exposure control; mA and/or kV adjustment per patient size (includes targeted exa ms where dose is matched to clinical indication); or iterative reconstruction.
--- NOTE | 2021-02-22 | DI.RAD_ITS ---
Exam(s) XR CHEST 2V PA LATERAL EXAM: XR CHEST 2V PA LATERAL CLINICAL HISTORY: LOWER URINARY TRACT SYMPTOMS, R39.9, CA OF RENAL PELVIS RT, C65.1, NEW LUNG TECHNIQUE: 2D digital imaging was performed. COMPARISON: CR,XR XR ABD FLAT UPRIGHT PA CHEST from 05/16/2019 CR,XR XR ABD FLAT UPRIGHT PA CHEST from 05/16/2019 CR XR ABD FLAT UPRIGHT PA CHEST from 07/11/2019 CR XR DEXA BONE DENSITY W/WO MANISHA from 03/02/2020 CR XR DEXA BONE DENSITY W/WO MANISHA from 03/02/2020 FINDINGS: MEDIASTINUM: Normal. HEART: Normal. PULMONARY VASCULATURE: Normal. LUNGS: Clear. PLEURAL SPACE: No pleural effusion or pneumothorax. BONE:Stable mild upper thoracic compression fractures. Degenerative changes. IMPRESSION: No acute abnormality. DATA REPOSITORY: RADIATION DOSE DELIVERED:
[2021-02-22] MEDS: Breeza Beverage 473 ML BTL PO ×2 (08:58→08:59)
[2021-02-22] MEDS: Omnipaque 350 MG/ML 50 ML BTL IJ (08:59)
== END 2021-02-22 03:08 ==
PROVIDERS: PCP Family Medicine; Visit Provider Urology
DX: R39.9 Unspecified symptoms and signs involving the genitourinary system (principal); C65.1 Malignant neoplasm of right renal pelvis
CPT/HCPCS: 71250; 71046; 74176; Q9967

== ENCOUNTER 2021-07-26 12:35 | Outpatient (REF) | payer MEDICARE, OTHER, SELFPAY ==
[2021-07-26 17:40] LABS: HCT 37.6 % (36.0-46.0); HGB 11.6 g/dL (11.2-15.7); MCH 27.2 pg (27.0-33.0); MCV 88.1 fL (80-95); RBC 4.27 10^6/uL (3.93-5.22); WBC 6.85 10^3/uL (4.4-10.8)
[2021-07-26 17:41] LABS: MCHC 30.9 % (32.0-36.0); MPV 11.3 fL (8.0-11.0); Platelet Count 293 10^3/uL (130-400); RDW-SD 47.8 fL
[2021-07-26 17:45] LABS: Microalb ug/mg Crea 2.5 ug/mg Cr
[2021-07-26 18:13] LABS: Vitamin D 25 Total 22.9 ng/mL (30-100)
[2021-07-26 18:27] LABS: Hemoglobin A1C 6.3 % (<5.7)
[2021-07-26 19:35] LABS: Anion Gap 9.7 mmol/L (3-11); BUN 25 mg/dL (7-18); CO2 28.3 mmol/L (21.0-32.0); CREATININE 1.3 mg/dL (0.55-1.02); Calcium 9.4 mg/dL (8.5-10.1); Calculated LDL 83 mg/dL (<100); Chloride 102 mmol/L (98-107); Cholesterol 167 mg/dL (<200); Estimated GFR 39.61 (mL/min/1.73m2); Glucose 121 mg/dL (74-106); HDL Cholesterol 69 mg/dL (40-60); Potassium 3.7 mmol/L (3.5-5.1); Sodium 140 mmol/L (136-145); Triglyceride 77 mg/dL (<150); Vitamin B12 434 pg/mL (193-986)
[2021-07-27 17:22] LABS: Ferritin 12 ng/mL (10-291)
== END 2021-07-26 12:36 | disposition home or self-care (01) ==
LOC: NCHCN 12:35
PROVIDERS: PCP Family Medicine; Visit Provider Family Medicine
DX: E78.5 Hyperlipidemia, unspecified (principal); I10 Essential (primary) hypertension; R73.03 Prediabetes; E55.9 Vitamin D deficiency, unspecified; E53.8 Deficiency of other specified B group vitamins; N18.30 Chronic kidney disease, stage 3 unspecified; Z79.899 Other long term (current) drug therapy
CPT/HCPCS: 80048; 80061; 82306; 85027; 82043; 82570; 82607; 82728; 83036

== ENCOUNTER 2021-12-22 16:59 | Outpatient (REF) | payer MEDICARE, OTHER, SELFPAY ==
[2021-12-22 15:18] LABS: HCT 30.4 % (36.0-46.0); HGB 9.6 g/dL (11.2-15.7); MCH 25.9 pg (27.0-33.0); MCHC 31.6 % (32.0-36.0); MCV 82 fL (80-95); MPV 11.5 fL (8.0-11.0); Platelet Count 240 10^3/uL (130-400); RDW 15.7 % (11.7-14.6); RDW-SD 47.4 fL; WBC 5.55 10^3/uL (4.4-10.8)
[2021-12-22 15:47] LABS: Iron 28 ug/dL (50-170); Total Iron Binding Capacity 402 ug/dL (250-450); Transferrin Sat 7 % (15-50)
[2021-12-22 16:01] LABS: Anion Gap 10.2 mmol/L (3-11); BUN 33 mg/dL (7-18); CO2 28.8 mmol/L (21.0-32.0); CREATININE 1.4 mg/dL (0.55-1.02); Calcium 8.8 mg/dL (8.5-10.1); Chloride 102 mmol/L (98-107); Estimated GFR 36.27 (mL/min/1.73m2); Ferritin 16 ng/mL (8-252); Glucose 110 mg/dL (74-106); Potassium 3.9 mmol/L (3.5-5.1); Sodium 141 mmol/L (136-145)
[2021-12-23 09:34] LABS: CA 125 16 U/mL (<30)
== END 2021-12-22 17:00 | disposition home or self-care (01) ==
LOC: NCHCN 16:59
PROVIDERS: PCP Family Medicine; Visit Provider Family Medicine
DX: D50.9 Iron deficiency anemia, unspecified (principal); N18.30 Chronic kidney disease, stage 3 unspecified; R60.0 Localized edema; Z85.43 Personal history of malignant neoplasm of ovary
CPT/HCPCS: 80048; 85027; 86304; 82728; 83540; 83550

== ENCOUNTER 2022-01-05 02:28 | Outpatient (RCR) | payer MEDICARE, OTHER, SELFPAY ==
[2021-12-29] MEDS: IRON SUCROSE COMPLEX 300 MG in Normal Saline 250 ML 176.667 MG IVPB (12:51)
[2021-12-29] MEDS: Normal Saline Flush 10 ML SYR IVP (12:55)
[2022-01-05] MEDS: Normal Saline Flush 10 ML SYR IVP (13:16)
[2022-01-05] MEDS: IRON SUCROSE COMPLEX 300 MG in Normal Saline 250 ML 176.667 MG IVPB (13:16)
== END 2022-01-09 23:59 | disposition home or self-care (01) ==
LOC: INF 02:28
PROVIDERS: PCP Family Medicine; Visit Provider Internal Medicine
DX: D50.9 Iron deficiency anemia, unspecified (principal)
CPT/HCPCS: 96365; 96366; J1756

== ENCOUNTER → 2022-01-06 02:29 | Outpatient (CLI) | payer MEDICARE, OTHER, SELFPAY ==
--- NOTE | 2022-01-06 15:00 | DI.US_ITS ---
APPROVED REPORT EXAM: Comprehensive 2D, Doppler, and color-flow Echocardiogram Patient Location: [facility] Technician: Deborah Lynn RDCS (AE) Indications: Led edema Other Information Study Quality: Adequate Conclusion Normal left ventricular wall thickness and chamber size. Estimated ejection fraction is 65% Wall mot ion is normal Normal right ventricular size and systolic function The left atrium is mildly dilated. The right atrium is normal in size The aortic valve is trileaflet and mildly calcified with mild regurgitation Mild mitral annular calcification. Mild mitral regurgitation Normal tricuspid valve with mild to moderate regurgitation. Estimated right ventricular systolic pre ssure is 51 mmHg Wall motion Left Ventricle The left ventricle is normal size. The left ventricular systolic function is normal. The left ventric ular ejection fraction is within the normal range. There is normal left ventricular wall thickness. T here is normal LV segmental wall motion. There is no ventricular septal defect visualized. LVEF is 65 %. Right Ventricle The right ventricle is normal size. The right ventricular systolic function is normal. The RVSP is 51 .6mmHg. Atria Left atrium is mildly dilated. The right atrium size is normal. The interatrial septum is intact with no evidence for an atrial septal defect. Aortic Valve Aortic valve is mildly Aortic valve is trileaflet. calcified. Aortic valve is trileaflet. No hemodyn amically significant valvular aortic stenosis. Mild aortic regurgitation. Mitral Valve Mild mitral annular calcification. No evidence of mitral valve stenosis. Mild mitral regurgitation. Tricuspid Valve The tricuspid valve is normal in structure. There is no tricuspid valve stenosis. Mild to moderate tr icuspid regurgitation. Pulmonic Valve The pulmonary valve is normal in structure. There is no pulmonic valvular stenosis. Trace to mild pul randy regurgitation. Great Vessels The aortic root is normal in size. Ascending aorta is not well visualized. Aortic arch is not well vi sualized. IVC is normal in size and collapses >50% with inspiration. Pericardium There is no pericardial effusion. 2D Dimensions IVSD d PLAX 1.02 cm F: 0.6-1.0 LV Vol A2C d MOD 104.1 mL LVPW d PLAX 1.02 cm F: 0.6 - 1.0 LV Vol A4C d MOD 96.8 mL LVID d PLAX 4.27 cm F: 3.8 - 5.2 LA vol/ BSA A2C s A-L 37.1 mL/m2 LVDs 2.80 cm F: 2.2 - 3.5 LA vol/ BSA A4C s A-L 30.7 mL/m2 Ao Root d 2.53 cm F: 2.7 - 3.3 LA Vol/ BSA Biplane s A-L 35.1 mL/m2 RA Area A4C 13.57 cm2 LA Area A4C s MOD 20.99 cm2 RA Vol/ BSA A4C s A-L 15.1 mL/m2 LA Area A2C s MOD 24.03 cm2 LV EF Teichholz 62.3 % LV EF A4C MOD 65.2 % LVEF (Granados's) 64.22 % F: 54 - 74 LV EF A2C MOD 65.3 % LV Volume 74.21 mL F: 46 - 106 LV EF Biplane MOD 64.2 % LV Volume Index 34.67 mL/m2 F: 29 - 61 SV 64.96 mL LV Vol Biplane MOD 101.2 mL SV Index 30.35 mL/m2 FS 33.30 % M-Mode TAPSE 2.66 cm (M/F) >1.7 LV Diastology MV E' medial 0.068 (>0.07 m/s) E/A Ratio 1.7 LV E/e MED 14.65 (<14) MV E Vmax 1.00 (0.4-1.3 m/s) MV E' lateral 0.119 (>0.1 m/s) MV A Vmax 0.60 (0.4-1.3 m/s) LV E/e LAT 8.45 (<14) MV E/A Ratio 1.60 MV E/E' medial 14.66 MV E/E' lateral 8.46 Aortic Valve LVOT Area 2.65 cm2 AoV Area Vmax 1.46 cm2 LVOT Vmax 1.23 m/s AoV Area/ BSA (Vmax) 0.68 cm2/m2 LVOT Mean Chago. 0.87 m/s PAOLO Mean Chago. 1.54 cm2 LVOT Peak Grad 6.1 mmHg PAOLO Mean Hcago. Index 0.72 cm2/m2 LVOT Mean Grad 3.4 mmHg AR DT 2456 msec LVOT VTI 0.325 m AR PHT 712 msec LVOT Diam s 1.80 cm AoV Vmax 2.24 m/s Velocity Ratio 0.54 AoV Mean Chago. 1.49 m/s AoV Peak Grad 20.0 mmHg LVOT SV 86.07 mL AoV Mean Grad 10.0 mmHg AoV VTI 0.513 m AoV Area VTI 1.68 cm2 AoV Area/ BSA (VTI) 0.78 cm/m2 Mitral Valve MV DT 166 (160-240 msec) MR Vmax 5.92 m/s MV PHT 48 msec MR VTI 2.125 m MV Area PHT 4.58 cm2 MR Peak Grad 140.0 mmHg MV VTI 0.400 m MR Mean Grad 107.9 mmHg MV Area VTI 2.15 (4.0-6.0 cm2) Pulmonary Valve PV Vmax 1.06 (0.5-1.5 m/s) RVOT Peak Gr. 2.54 mmHg PV Peak Grad 4.5 mmHg RVOT Mean Gr. 1.50 mmHg PV Mean Grad 2.5 mmHg RVOT VTI 0.218 m PV VTI 0.270 m RVOT Vmax 0.80 m/s Tricuspid Valve TR Peak Grad 48.6 mmHg TR Vmax 3.49 m/s RA Pressure 3.00 mmHg RVSP (TR) 51.6 mmHg
== END ==
PROVIDERS: PCP Family Medicine; Visit Provider Family Medicine
DX: R60.0 Localized edema (principal)
CPT/HCPCS: 93306

== ENCOUNTER 2022-01-12 02:37 | Outpatient (RCR) | payer MEDICARE, OTHER, SELFPAY ==
[2022-01-12] MEDS: Normal Saline Flush 10 ML SYR IVP (12:49)
[2022-01-12] MEDS: IRON SUCROSE COMPLEX 300 MG in Normal Saline 250 ML 176.667 MG IVPB (13:25)
== END 2022-02-09 23:59 | disposition home or self-care (01) ==
LOC: INF 02:37
PROVIDERS: PCP Family Medicine; Visit Provider Internal Medicine
DX: D50.9 Iron deficiency anemia, unspecified (principal)
CPT/HCPCS: 96365; 96366; J1756

== ENCOUNTER 2022-01-12 08:20 | Outpatient (REF) | payer MEDICARE, OTHER, SELFPAY ==
[2022-01-12 15:24] LABS: Anion Gap 5.3 mmol/L (3-11); BUN 24 mg/dL (7-18); CO2 29.7 mmol/L (21.0-32.0); CREATININE 1.3 mg/dL (0.55-1.02); Calcium 9.2 mg/dL (8.5-10.1); Chloride 103 mmol/L (98-107); Estimated GFR 39.51 (mL/min/1.73m2); Glucose 91 mg/dL (74-106); Potassium 3.8 mmol/L (3.5-5.1); Sodium 138 mmol/L (136-145)
== END 2022-01-12 08:21 | disposition home or self-care (01) ==
LOC: NCHCN 08:20
PROVIDERS: PCP Family Medicine; Visit Provider Family Medicine
DX: I10 Essential (primary) hypertension (principal); N18.30 Chronic kidney disease, stage 3 unspecified
CPT/HCPCS: 80048

== ENCOUNTER 2022-02-02 17:14 | Outpatient (REF) | payer MEDICARE, OTHER, SELFPAY ==
[2022-02-02 16:08] LABS: HCT 38.1 % (36.0-46.0); MCH 27.1 pg (27.0-33.0); MCHC 31.5 % (32.0-36.0); MCV 86 fL (80-95); MPV 11.6 fL (8.0-11.0); Platelet Count 217 10^3/uL (130-400); RBC 4.42 10^6/uL (3.93-5.22); RDW 19.9 % (11.7-14.6); RDW-SD 62.6 fL
[2022-02-02 17:04] LABS: Ferritin 114 ng/mL (8-252)
== END 2022-02-02 17:15 | disposition home or self-care (01) ==
LOC: NCHCN 17:14
PROVIDERS: PCP Family Medicine; Visit Provider Family Medicine
DX: D50.9 Iron deficiency anemia, unspecified (principal)
CPT/HCPCS: 85027; 82728

== ENCOUNTER 2022-06-07 15:45 | Outpatient (REF) | payer MEDICARE, OTHER, SELFPAY ==
[2022-06-07 16:25] LABS: HCT 39.3 % (36.0-46.0); HGB 12.3 g/dL (11.2-15.7); MCH 27.7 pg (27.0-33.0); MCHC 31.3 % (32.0-36.0); MCV 89 fL (80-95); MPV 11.6 fL (8.0-11.0); Platelet Count 219 10^3/uL (130-400); RBC 4.44 10^6/uL (3.93-5.22); RDW 14.8 % (11.7-14.6); RDW-SD 47.8 fL; WBC 4.86 10^3/uL (4.4-10.8)
[2022-06-07 16:55] LABS: Hemoglobin A1C 5.9 % (<5.7)
[2022-06-07 17:03] LABS: Anion Gap 6.2 mmol/L (3-11); BUN 16 mg/dL (7-18); CO2 30.8 mmol/L (21.0-32.0); CREATININE 1.2 mg/dL (0.55-1.02); Calcium 9.6 mg/dL (8.5-10.1); Chloride 105 mmol/L (98-107); Estimated GFR 46.05 (mL/min/1.73m2); Ferritin 48 ng/mL (8-252); Glucose 116 mg/dL (74-106); Potassium 4.1 mmol/L (3.5-5.1); Sodium 142 mmol/L (136-145)
== END 2022-06-07 15:46 | disposition home or self-care (01) ==
LOC: NCHCN 15:45
PROVIDERS: PCP Family Medicine; Visit Provider Family Medicine
DX: R73.03 Prediabetes (principal); D50.9 Iron deficiency anemia, unspecified; N18.30 Chronic kidney disease, stage 3 unspecified
CPT/HCPCS: 80048; 85027; 82728; 83036

== ENCOUNTER 2022-07-20 13:55 | Outpatient (REF) | payer MEDICARE, OTHER, SELFPAY ==
[2022-07-20 15:27] LABS: HCT 38.4 % (36.0-46.0); HGB 11.8 g/dL (11.2-15.7); MCH 27.6 pg (27.0-33.0); MCHC 30.7 % (32.0-36.0); MCV 90 fL (80-95); MPV 11.4 fL (8.0-11.0); Platelet Count 242 10^3/uL (130-400); RBC 4.28 10^6/uL (3.93-5.22); RDW-SD 49.2 fL; WBC 6.06 10^3/uL (4.4-10.8)
[2022-07-20 15:49] LABS: TSH (W/Ref FT4) 0.83 uIU/mL (0.36-3.74)
[2022-07-20 16:25] LABS: Ferritin 32 ng/mL (8-252)
== END 2022-07-20 13:56 | disposition home or self-care (01) ==
LOC: NCHCN 13:55
PROVIDERS: PCP Family Medicine; Visit Provider Family Medicine
DX: D50.9 Iron deficiency anemia, unspecified (principal); I10 Essential (primary) hypertension
CPT/HCPCS: 85027; 82728; 84443

== ENCOUNTER 2022-08-09 08:35 | Emergency (ER) | payer MEDICARE, OTHER, SELFPAY ==
[2022-08-09] VITALS (31 sets, daily range): BP systolic 161–191; BP diastolic 52–72; PULSE 43–84; RESP 9–20; TEMP 36.3; O2SAT 80–100
--- NOTE | 2022-08-09 08:45 | RT.EKG_ITS ---
APPROVED REPORT Exam: Resting ECG Reason for Exam: dizziness Patient Location: E HR:49 bpm ECG Measurements Heart Rate 49 AXIS MO 181 P 71 QRSd 84 QRS 55 QT 456 T 74 QTc 414 Conclusion Sinus bradycardia...rate< 60 Left ventricular hypertrophy...multiple voltage criteria Narrow complex sinus bradycardia rate of 49. Normal axis. T wave inversion in aVL. Mild concave up sloping V2 ST segment elevation. No prior for comparison.
--- NOTE | 2022-08-09 09:19 | ED.GENADUL_ITS ---
Discharge Plan Disposition Patient Disposition: Home Condition: Improving Discharge Details Clinical Impression: Vertigo, Elevated blood pressure reading, Elevated brain natriuretic peptide (BNP) level, Excess fluid volume, Stress Primary Care Provider: Dulce Hidalgo ED Provider: Jane Kimble Home Meds and New Rx's Prescriptions: New meclizine 12.5 mg tablet 12.5 mg PO TID PRN (Reason: dizziness) Qty: 7 0RF Continued cetirizine [Zyrtec] 10 mg tablet 10 mg PO DAILY PRN polyethylene glycol 3350 [Miralax] 17 gram/dose powder 17 gm PO PRN PRN omeprazole 20 mg capsule,delayed release(DR/EC) 20 mg PO DAILY acetaminophen [Tylenol Extra Strength] 500 mg tablet 500 mg PO PRN alum-mag hydroxide-simeth 200-200-20 mg/5 mL suspension 10 ml PO PRN PRN Patient Comments: for abdominal cramping simvastatin 10 MG tablet 10 mg PO HS atenolol 50 MG tablet 50 mg PO DAILY calcium carb and citrate-vitD3 [Citracal-D3 Slow Release] 1 EACH tablet extended release 1 tab PO DAILY ondansetron 4 mg tablet,disintegrating 4 mg PO Q6H PRN (Reason: nausea and vomiting) Qty: 14 0RF hydrochlorothiazide 25 MG tablet 25 mg PO DAILY Patient Comments: does not take cyanocobalamin (vitamin B-12) [Vitamin B-12] 1,000 mcg Tablet 1,000 mcg PO DAILY magnesium oxide 400 mg Capsule 400 mg PO DAILY Xarelto 10 mg Tablet 10 mg PO DAILY Changed furosemide 20 mg tablet 40 mg PO DAILY Qty: 0 0RF Patient Comments: Take 1 tablet by mouth once a day Discharge Instructions Instructions: Vertigo (ED) Additional Instructions: As we discussed, I am concerned that your increased stress and increased intake of processed foods, like the food you are getting at the deli, may be increasing your salt intake and may consider your not getting rid of your fluid appropriately. This can cause your blood pressure to elevate may be contributing to you having vertigo. Your imaging and labs are otherwise reassuring here today. Please increase your Lasix to 2 tablets for the next 3 days. You may use the meclizine as prescribed if you have any recurrence of your dizziness. Please follow-up with primary care within the next week, call to schedule follow-up appointment. If you develop chest pain, shortness of breath, inability stay hydrated or other new/worsening symptom please seek care urgently once again. I am hoping by getting rid of some of the excess fluid both your vertigo and your blood pressure will improve. Referrals: Dulce Hidalgo MD [Primary Care Provider] - Discharge Data Discharge Date/Time-TO BE ENTERED AT DEPARTURE: 08/09/22 13:00 Medical Decision Making Patient is a pleasant 81-year-old female, COVID by significant other, with chief complaint of room spinning dizziness. She reports this began 2 days ago. Has been intermittent since then brought on by movement. She denies any symptoms when at rest. Finds it primarily when she is sitting up or walking. She denies any chest pain. No shortness of breath. Denies any headache. No visual changes. Denies any weakness or sensory deficits. Past medical history is pertinent for BRCA2 positive, breast cancer status post bilateral mastectomies, renal cell cancer with spread into bladder and ureter status post resection, GE RD, hypertension, obesity, PE. Patient is anticoagulated on Xarelto and has not had any missed doses. No recent medication changes. She has not had vertigo historically. Patient is also concerned that she has had elevated blood pressure readings. Her blood pressure looking back in her chart typically has a systolic of the 140s to 150s. She has been well controlled on medical management for quite some time per her report. However, she began checking her blood pressure yesterday and had a systolic in the 190s. Of note, the patient also reports that she had a large amount of stress preceding these events as she takes care of her 90-year-old brother who she just transition to hospice. On exam, patient appears nontoxic. She is hypertensive with a blood pressure 190/58. Vital signs otherwise unremarkable. Her lungs are clear, normal cardiac exam. She does have some lower extremity swelling but this is all nonpitting. Patient reports that this is chronic for her. With her increase in stress, she does report that she is been eating more processed foods, likely containing more salt than typical. She is not actively vertiginous. I do not note any neurologic deficits at this time. I did try to elicit some vertigo but patient quickly shuts her eyes and reports immediate resolution of her symptoms as they are starting to onset so my hints exam and evaluation for nystagmus were not able to be fully completed at this time.HEENT exam unremarkable. Symptoms are most consistent with a peripheral form of vertigo such as benign paroxysmal positional vertigo. Will give meclizine to help with symptomatic management. Her elevated blood pressure does have me concerned that this could be associated with her stress as well as her increased salt intake and anxiety around feeling vertiginous. However, patient has had PE in the past and is certainly high risk for a CVA. I do not see objective evidence of CVA at this time. Will obtain baseline labs and, based on creatinine, will move forward with CTA. reviewed the labs. Patient had an elevated BNP which does fit with story. Elevated creatinine at 1.1 which appears to be baseline for the patient. GFR 51. Patient is feeling significantly improved after the p.o. meclizine. She was able to get up and ambulate to the restroom unassisted aside from walker which she feels is more out of safety then for necessity. Given the patient's history, I do feel that moving forward with imaging would be appropriate although I do have fairly low suspicion for CVA or central source of her symptoms. Likely, her dietary changes leading to both the lower threshold to develop peripheral vertigo as well as her elevated blood pressure. We will give IV Lasix and continue to monitor the patient. Patient remains asymptomatic. Resting, chatting with . She feels improved, moving more without symtpoms. CTA normal per radiologist. No signficant stenosis. discussed findings with patient. Her blood pressure is downtrending. Her vertigo is currently resolved. We will continue with increased Lasix for the next 3 days. Will call PCP to touch base as well. Also encouraged stress reduction and imporved dietary habits. Will have her use Meclizine if needed, prescription sent. Strict return precautions given. Called PCP office, awaiting call back. She will f/u as soon as possible. All of her questions and concerns were addressed, sh eis in agreement with this plan. BP improving. Vertigo resolved, ambuating without assistance. HPI General Date/Time Provider Initiated Documentation: 08/09/22 08:54 . Limitations to Documentation: no limitations . Information obtained by: patient, family (), RN notes reviewed and old records reviewed . History of Present Illness 81 year old F presents to the emergency department with the chief complaint of dizzy, room spinning, described as moderate, Quality is described as other, and is localized to the head. Patient reports no radiation. Patient started experiencing this day(s) and it has been intermittent. Immobilization improves symptom(s), Movement worsens symptoms . Patient notes nausea/vomiting (can have nausea with dizziness ); denies chest pain, cough, fever/chills, headaches, loss of appetite, malaise, rash, seizure, shortness of breath and syncope. Patient did receive the following treatments prior to arrival, none Related Data Home Medications Medication Instructions Recorded Confirmed atenolol 50 mg tablet 50 mg PO DAILY 11/30/13 08/09/22 calcium carb,cit ER 600 mg-vit D3 1 tab PO DAILY 11/30/13 08/09/22 12.5 mcg (500 unit) tablet,ext.rel (Citracal-D3 Slow Release) simvastatin 10 mg tablet 10 mg PO HS 11/30/13 08/09/22 hydrochlorothiazide 25 mg tablet 25 mg PO DAILY 12/21/17 12/17/19 cyanocobalamin (vitamin B-12) 1,000 mcg PO DAILY 04/04/18 08/09/22 1,000 mcg tablet (Vitamin B-12) magnesium oxide 400 mg PO DAILY 04/04/18 08/09/22 cetirizine 10 mg tablet (Zyrtec) 10 mg PO DAILY PRN 07/27/18 08/09/22 rivaroxaban 10 mg tablet (Xarelto) 10 mg PO DAILY 08/26/18 08/09/22 acetaminophen 500 mg tablet 500 mg PO PRN 09/21/18 08/09/22 (Tylenol Extra Strength) aluminum-mag hydroxide-simethicone 10 ml PO PRN PRN 09/21/18 08/09/22 200 mg-200 mg-20 mg/5 mL oral susp omeprazole 20 mg capsule,delayed 20 mg PO DAILY 09/21/18 08/09/22 release polyethylene glycol 3350 17 17 gm PO PRN PRN 09/21/18 08/09/22 gram/dose oral powder (Miralax) ondansetron 4 mg disintegrating 4 mg PO Q6H PRN nausea and 07/11/19 08/09/22 tablet vomiting #14 tabs furosemide 20 mg tablet 40 mg PO DAILY #0 tabs 08/09/22 08/09/22 meclizine 12.5 mg tablet 12.5 mg PO TID PRN dizziness #7 08/09/22 tabs Previous Rx's Medication Instructions Recorded ondansetron 4 mg disintegrating 4 mg PO Q6H PRN nausea and 07/11/19 tablet vomiting #14 tabs furosemide 20 mg tablet 40 mg PO DAILY #0 tabs 08/09/22 meclizine 12.5 mg tablet 12.5 mg PO TID PRN dizziness #7 08/09/22 tabs Allergies Allergy/AdvReac Type Severity Reaction Status Date / Time latex Allergy Mild Verified 08/09/22 09:19 Sulfa (Sulfonamide AdvReac Severe liver Verified 08/09/22 09:19 Antibiotics) damage ciprofloxacin [From Cipro] AdvReac Intermediate unknown Verified 08/09/22 09:19 glucosamine AdvReac Intermediate Nausea Verified 08/09/22 09:19 glue on bandaids Allergy Mild rash Uncoded 08/09/22 09:19 Epideral Dressing AdvReac Severe Blistering Uncoded 08/09/22 09:19 General Stated Complaint: Dizzy/Sync SADIE: 3 Review of Systems Constitutional Constitutional: Reports as per HPI, Denies chills, Denies fever(s), Denies frequent falls, Denies headache(s) and Denies weakness Eyes Eyes: Reports as per HPI, Denies blurry vision and Denies change in vision ENT Ears, Nose, Mouth, and Throat: Denies headache(s) and Denies neck pain Cardiovascular Cardiovascular: Reports as per HPI, Denies chest pain, Denies lightheadedness, Denies radiating jaw, neck or arm pain, Denies dyspnea and Denies dyspnea on exertion Respiratory Respiratory: Reports as per HPI, Denies chest congestion, Denies cough, Denies dyspnea and Denies dyspnea on exertion Gastrointestinal Gastrointestinal: Reports as per HPI, Denies abdominal pain, Denies change in bowel habits and Denies vomiting Musculoskeletal Musculoskeletal: Reports as per HPI, Denies back pain, Denies myalgias, Denies muscle cramps, Denies neck pain and Denies numbness Integumentary/Breasts Skin/Breast: Reports as per HPI and Denies rash Neurologic Neurologic: Reports as per HPI, Denies abnormal speech, Denies behavioral changes, Denies confusion, Denies frequent falls, Denies headache(s), Denies localized weakness, Denies numbness, Denies sensory deficit and Denies weakness Psychiatric Psychiatric: Denies behavioral changes and Denies confusion PFSH All Active Problems (Updated 08/09/22 @ 12:24 by LB Smalls) Vertigo (Acute) Elevated blood pressure reading (Acute) Elevated brain natriuretic peptide (BNP) level (Acute) Excess fluid volume (Acute) Stress (Acute) Small bowel obstruction (Acute) Nausea and vomiting (Acute) Anemia (Chronic) Upper abdominal pain, unspecified (Acute) Medical History (Updated 08/09/22 @ 12:24 by LB Smalls) Actinic keratosis Anemia Benign essential tremor BRCA2 positive Breast cancer, stage 1 Dehydration GERD (gastroesophageal reflux disease) H/O ovarian cancer H/O primary malignant neoplasm of urinary bladder H/O renal cell cancer HTN (hypertension) Incisional hernia IT band syndrome Neutropenia drug induced Obesity Osteopenia Pulmonary embolism Seborrheic keratoses Stage 3 chronic kidney disease Ventral hernia Surgical History H/O partial cystectomy H/O right nephrectomy Right, with partial uretectomy, Dr Ariel Do History of appendectomy unknown date History of bowel resection partial, unknown date S/P hysterectomy with oophorectomy S/P recurrent ventral herniorrhaphy (07/17/18) Dr Michael Carroll, [facility] S/P TKR (total knee replacement) Status post cataract extraction and insertion of intraocular lens of left eye (04/09/18) Status post cataract extraction and insertion of intraocular lens of right eye (04/23/18) Social History Smoking/Tobacco Use Status: Never Smoking risk assessment performed?: Yes Alcohol Intake: never Drug use: Never Substance use type: does not use Current gender identity: female Do you feel safe at home: Yes Do you feel safe in your relationship?: Yes Exam Const General: cooperative, healthy appearing, comfortable, no acute distress, well developed and well groomed Nutritional Appearance: well nourished and overweight Orientation: alert, awake and oriented x3 HENMT Head: normal to inspection, no palpable skull fracture, normocephalic and atraumatic Ears: hearing grossly normal bilaterally, external ears normal and TM's normal bilaterally General nose exam: external nose normal Mouth: oral mucosae normal and moist mucous membranes Throat: posterior oropharynx normal Eyes General: appearance normal, both eyes and all related structures Alignment and Position: alignment normal Periorbital: periorbital findings normal Eyelids: eyelids normal Sclera: sclerae normal Cornea: corneas normal Pupils: PERRL EOM: EOM intact bilaterally, no movement deficit and No nystagmus Neck Neck: normal visual inspection, full ROM, no lymphadenopathy and no meningeal signs Resp Effort & Inspection: normal respiratory effort, able to speak in complete sentences and no respiratory distress Auscultation: clear to auscultation bilaterally, no rales, no rhonchi and no wheezes Cardio Rate: regular rate Rhythm: regular rhythm Heart Sounds: S1 normal and S2 normal Back/Spine/Pelvis Cervical Spine: normal cervical lordosis and cervical ROM normal Skin General skin exam: no rashes or lesions noted Neuro General: patient alert, patient awake and patient oriented x3 Cranial Nerves: CN's II-XI intact bilaterally and no nystagmus Cognition: normal cognition Speech: speech normal Gait: normal gait Motor: muscle tone normal throughout, strength 5/5 throughout, no pronator drift, no movement abnormalities noted and no fasciculations Sensory Exam: no sensory deficits noted Coordination: [id number] test normal and [id number] test normal Extrem General: normal to inspection, capillary refill normal, no calf tenderness, normal gait, edema (nonpitting) Laterality: bilateral and other (2+ distal pulses) Psych Appearance: grossly normal and well kempt Mental Status: mental status grossly normal Speech and Movement: speech and movement normal Course Vital Signs Vital signs: Vital Signs Temperature 36.3 C L 08/09/22 08:50 Pulse 57 L 08/09/22 08:50 Respiratory Rate 18 08/09/22 08:50 Blood Pressure 190/58 H 08/09/22 08:50 Pulse Oximetry 99 08/09/22 08:50 Temperature 36.3 C L 08/09/22 08:50 Pulse 57 L 08/09/22 08:50 Respiratory Rate 18 08/09/22 08:50 Blood Pressure 190/58 H 08/09/22 08:50 Blood Pressure Position Supine 08/09/22 08:50 Pulse Oximetry 99 08/09/22 08:50 Oxygen Delivery Method Room Air 08/09/22 08:50 Oxygen Flow Rate 0 08/09/22 08:50 Pain Level 0 08/09/22 08:50
[2022-08-09] MEDS: Meclizine 12.5 MG TAB PO (09:38)
[2022-08-09 09:54] LABS: Bilirubin Negative (Negative); Blood Negative (Negative); Clarity Clear (Clear); Glucose Negative (Negative); Ketones Negative (Negative); Leukocyte Esterase Negative (Negative); Nitrite Negative (Negative); Specific Gravity 1.015 (1.005-1.025); Urobilinogen 0.2 mg/dL (Up to 0.2); pH 6.5 (5-8)
[2022-08-09 09:56] LABS: Abs Immature Grans 0.03 10^3/uL (0.0-0.06); Absolute Basophil Count 0.02 10^3/uL (0.0-0.2); Absolute Eosinophil Count 0.17 10^3/uL (0.0-0.7); Absolute Lymphocyte Count 1.85 10^3/uL (1.2-3.4); Absolute Neutrophil Count 4.66 10^3/uL (1.2-6.7); Basophils % 0.3; Eosinophils % 2.3; HCT 39.7 % (36.0-46.0); HGB 12.3 g/dL (11.2-15.7); Immature Grans % 0.4; Lymphocytes % 25.2; MCH 27.5 pg (27.0-33.0); MCV 89 fL (80-95); MPV 10.6 fL (8.0-11.0); Monocytes % 8.2; Neutrophils % 63.6; Platelet Count 238 10^3/uL (130-400); RBC 4.48 10^6/uL (3.93-5.22); RDW 14.6 % (11.7-14.6); RDW-SD 46.9 fL; WBC 7.33 10^3/uL (4.4-10.8)
[2022-08-09 10:16] LABS: ALT 21 U/L (14-59); AST 19 U/L (15-37); Albumin 3.4 g/dL (3.4-5.0); Alkaline Phosphatase 121 U/L (46-116); Anion Gap 6.1 mmol/L (3-11); BUN 22 mg/dL (7-18); Bilirubin, Total 0.5 mg/dL (0.2-1.0); CO2 31.9 mmol/L (21.0-32.0); CREATININE 1.1 mg/dL (0.55-1.02); Calcium 9.7 mg/dL (8.5-10.1); Chloride 104 mmol/L (98-107); Estimated GFR 51.11 (mL/min/1.73m2); Glucose 126 mg/dL (74-106); Potassium 3.9 mmol/L (3.5-5.1); Sodium 142 mmol/L (136-145); Total Protein 7.5 g/dL (6.4-8.2)
[2022-08-09 10:28] LABS: Magnesium 2.1 mg/dL (1.8-2.4); NT-proBNP 1003 pg/mL (<300); TSH 1.74 uIU/mL (0.36-3.74); Troponin I < 50 ng/L (<or=60)
[2022-08-09] MEDS: Furosemide 40 MG/4 ML VIAL IVP (10:43)
[2022-08-09] MEDS: Omnipaque 350 MG/ML 500 ML BTL-Imaging package IJ (11:40)
[2022-08-09] MEDS: Normal Saline - Diluent 50 ML VIAL IV (11:40)
--- NOTE | 2022-08-09 11:50 | DI.CT_ITS ---
Exam(s) CT BRAIN NECK CTA EXAM: CT BRAIN NECK CTA CLINICAL HISTORY: vertigo. TECHNIQUE: Imaging Protocol: Axial CT angiography was performed with multi-slice acquisition and mu lti-planar and/or 3D reconstructions. CONTRAST MATERIAL: Intravenous: Omnipaque 350 Contrast volume:structured data in ml COMPARISON: CT CT CHEST/ABD/PEL WO from 02/22/2021 FINDINGS: CTA Neck W: Aortic arch anatomy: The aortic arch anatomy is conventional and there is no significant stenosis at the origin of the great vessels off of the aortic arch. No intimal flap evident. Anterior circulation: Both common carotid arteries ascend with normal luminal diameters. There is no significant atherosclerotic disease at the level of the left carotid bifurcation and prox imal left ICA. No narrowing at this level. On the right side there is some mild eccentric calcified plaque on the posterior wall of the carotid bifurcation but without significant stenosis at this lev el nor in the proximal right ICA. Both internal carotid arteries exhibit normal luminal diameters in the upper neck skull base. Posterior circulation: Both vertebral arteries originate in conventional fashion off of the subclavian arteries and there is no obvious stenosis at the origin of the vertebral arteries. Both vertebral arteries exhibit normal luminal diameters within the foramen transversarium. Both vertebral arteries contribute to the formation of the basilar artery at the skull base. CTA Brain W: Anterior circulation: Both internal carotid arteries are patent in the skull base-carotid canals as well as within the cave rnous sinuses. The supraclinoid aspects of the ICAs are patent. Both A1 segments are patent with the right being do minant. Both anterior cerebral arteries are patent and there is no evidence of aneurysm at the leve l of the anterior communicating artery. Both middle cerebral arteries are patent with no evidence of significant stenosis nor intraluminal th rombus. There also no aneurysms of these vessels. Posterior circulation: The basilar artery ascends in the midline. Distally it gives off patent bilateral superior cerebella r arteries. Above this level the basilar artery terminates as patent bilateral posterior cerebral arteries. There is no evidence of aneurysm at the tip of the basilar artery nor elsewhere in the [id number] is. CT BRAIN: There is no evidence of intracranial hemorrhage, mass effect, or shift of midline structures. There are no extra-axial fluid collections. Ventricles are not enlarged or shifted. There are no ring enh ancing lesions in the brain and no abnormal meningeal enhancement. Small retention cyst measuring 5 millimeters noted in the posterior aspect of the left maxillary sinu s. No fluid level evident in sinus. IMPRESSION: 1. Patent carotid arteries in the neck. No hemodynamically significant stenosis. 2. Patent vertebral arteries. 3. Patent intracranial arteries. 4. No acute intracranial findings. No ring enhancing lesions in the brain. No abnormal meningeal en hancement. Called by myself to ER provider. RADIATION DOSE DELIVERED: 1,740.45mGy.cm Total DLP DATA REPOSITORY: All CT scans at this facility are submitted to the National Radiology Data Registry (NRDR) Dose Index Registry (DIR) with the [employer] (A[employer]). RADIATION OPTIMIZATION: All CT scans at this facility use at least one of these dose optimization te chniques: automated exposure control; mA and/or kV adjustment per patient size (includes targeted exa ms where dose is matched to clinical indication); or iterative reconstruction.
== END 2022-08-09 13:00 | disposition home or self-care (01) ==
PROVIDERS: Emergency Provider Physician Assistant; PCP Family Medicine
DX: R42 Dizziness and giddiness (principal); I12.9 Hypertensive chronic kidney disease with stage 1 through stage 4 chronic kidney disease, or unspecified chronic kidney disease; N18.30 Chronic kidney disease, stage 3 unspecified; R79.89 Other specified abnormal findings of blood chemistry; E87.70 Fluid overload, unspecified; F43.9 Reaction to severe stress, unspecified; Z79.01 Long term (current) use of anticoagulants; Z86.711 Personal history of pulmonary embolism
CPT/HCPCS: 36415; 70496; 70498; 80053; 93005; 96374; 99285; 81003; 83735; 83880; 84443; 84484; 85025; 93010; J1940

== ENCOUNTER 2022-08-17 18:15 | Outpatient (REF) | payer MEDICARE, OTHER, SELFPAY ==
[2022-08-17 20:34] LABS: NT-proBNP 682 pg/mL (<300)
[2022-08-19 09:32] LABS: IgA 236 mg/dL (85-499)
[2022-08-20 17:24] LABS: Tissue Transglutaminase Ab IgA <1.2 U/mL
== END 2022-08-17 18:16 | disposition home or self-care (01) ==
LOC: NCHCN 18:15
PROVIDERS: PCP Family Medicine; Visit Provider Family Medicine
DX: R10.10 Upper abdominal pain, unspecified (principal); R60.0 Localized edema
CPT/HCPCS: 82784; 83516; 83880

== ENCOUNTER 2022-08-26 17:52 | Outpatient (REF) | payer MEDICARE, OTHER, SELFPAY ==
[2022-08-29 15:58] LABS: Helicobacter pylori Ag, Feces Negative (Negative)
== END 2022-08-26 17:53 | disposition home or self-care (01) ==
LOC: NCHCN 17:52
PROVIDERS: PCP Family Medicine; Visit Provider Family Medicine
DX: R10.9 Unspecified abdominal pain (principal)
CPT/HCPCS: 87338

== ENCOUNTER 2022-09-01 03:40 | Outpatient (CLI) | payer MEDICARE, OTHER, SELFPAY ==
--- NOTE | 2022-09-01 | DI.CT_ITS ---
Exam(s) CT CHEST/ABD/PEL W EXAM: CT CHEST/ABD/PEL W CLINICAL HISTORY: RT UERTERAL CA, S/P SURG, R66.1, ? LOCAL OR SYSTEMIC RECURRENCE TECHNIQUE: Imaging Protocol: Axial computed tomography images with coronal and sagittal reformatted images were created and reviewed CONTRAST MATERIAL: Intravenous: Omnipaque 350 contrast volume:100 mL Oral: Yes COMPARISON: CT CT CHEST/ABD/PEL WO from 02/22/[address] BRAIN NECK CTA from 08/09/2022 FINDINGS: CHEST: Tracheobronchial tree: Patent where visualized. Pulmonary parenchyma: No consolidation or dominant measurable mass. There is pulmonary fibrosis. No pulmonary nodules are seen. Visualized thyroid gland: There again seen multiple thyroid nodules. The largest measures 1.3 cm. N onemergent thyroid ultrasound should be considered for further evaluation. Mediastinum and Jenifer: No dominant adenopathy or fluid collection. The esophagus is unremarkable. The re is a small hiatal hernia. Pleura: No effusion or pneumothorax. Heart: Cardiomegaly. Coronary artery calcifications are present. No pericardial effusion. Pulmonary arteries: No pulmonary emboli are identified. Aorta: Thoracic aorta non-dilated. Atherosclerosis. No evidence of dissection. Lymph nodes: Within normal limits. Soft tissues: Unremarkable. Bones:Within normal limits for the patient's age. ABDOMEN: Liver: Normal density. No measurable mass. Portal, Superior Mesenteric, and Splenic Veins: Unremarkable. Gallbladder and Biliary Tract: No radiodense calculus or dilation. Pancreas: Normal density, no abnormal calcifications or inflammatory process. Spleen: Normal. Adrenals: No masses seen. Kidneys: The right kidney is absent. No radiodense stones or obstructive uropathy. There is a tiny h ypodensity in the kidney. It is too small for further characterization but likely reflects a small c yst. No follow-up is recommended. Abdominal Aorta: Abdominal portion non-dilated. Atherosclerosis. Bowel: No obstruction or bowel wall thickening. The appendix is not visualized. Peritoneal Cavity: No ascites, collection or mesenteric inflammatory response. No free air. Lymph Nodes: Within normal limits. Bones: Within normal limits for the patient's age. There is a stable L4 compression fracture deformi ty. No aggressive lytic or sclerotic lesions are seen in the bones. Soft Tissues: Unremarkable. PELVIS: Bladder: Symmetric distention, no gross wall thickening. Reproductive Organs: Unremarkable as visualized. Lymph Nodes: Within normal limits. Bones: Within normal limits. IMPRESSION: 1. No evidence of metastatic disease in the chest, abdomen or pelvis. 2. Status post right nephrectomy. No evidence of a recurrent or residual mass in the right renal fos sa. 3. Multiple thyroid nodules. The largest measures 1.3 cm. Nonemergent thyroid ultrasound may be obt ained for further evaluation. RADIATION DOSE DELIVERED: 2,118.95mGy.cm Total DLP DATA REPOSITORY: All CT scans at this facility are submitted to the National Radiology Data Registry (NRDR) Dose Index Registry (DIR) with the [employer] (ACR). RADIATION OPTIMIZATION: All CT scans at this facility use at least one of these dose optimization te chniques: automated exposure control; mA and/or kV adjustment per patient size (includes targeted exa ms where dose is matched to clinical indication); or iterative reconstruction.
[2022-09-01] MEDS: Breeza Beverage 473 ML BTL PO ×2 (07:25)
[2022-09-01] MEDS: Omnipaque 350 MG/ML 500 ML BTL-Imaging package IJ (09:07)
[2022-09-01] MEDS: Normal Saline - Diluent 50 ML VIAL IJ (09:08)
== END 2022-09-01 04:00 ==
LOC: DI 03:41
PROVIDERS: PCP Family Medicine; Visit Provider Urology
DX: J84.10 Pulmonary fibrosis, unspecified (principal); E04.2 Nontoxic multinodular goiter; Z90.5 Acquired absence of kidney; C66.1 Malignant neoplasm of right ureter; Z12.89 Encounter for screening for malignant neoplasm of other sites
CPT/HCPCS: 74177; 71260

== ENCOUNTER 2022-10-08 06:34 | Inpatient (IN) | payer MEDICARE, OTHER, SELFPAY ==
[2022-10-08] VITALS (8 sets, daily range): BP systolic 150–180; BP diastolic 50–73; PULSE 60–74; RESP 16–18; TEMP 36.3–37.1; O2SAT 94–97
--- NOTE | 2022-10-08 06:15 | RT.EKG_ITS ---
APPROVED REPORT Exam: Resting ECG Reason for Exam: vomiting Patient Location: E HR:67 bpm ECG Measurements Heart Rate 67 AXIS AR 178 P 65 QRSd 90 QRS 7 QT 411 T 55 QTc 434 Conclusion Sinus rhythm...normal P axis, V-rate 60- 99 Probable left atrial enlargement...P >50mS, <-0.10mV V1 Left ventricular hypertrophy...multiple voltage criteria Sinus. Normal axis. LVH. No STEMI. I have reviewed and interpreted ECG and agree with software generated interpretation.
[2022-10-08 06:51] LABS: Abs Immature Grans 0.03 10^3/uL (0.0-0.06); Absolute Basophil Count 0.03 10^3/uL (0.0-0.2); Absolute Eosinophil Count 0.05 10^3/uL (0.0-0.7); Absolute Lymphocyte Count 0.97 10^3/uL (1.2-3.4); Absolute Neutrophil Count 5.32 10^3/uL (1.2-6.7); Basophils % 0.4; Eosinophils % 0.7; HCT 37.5 % (36.0-46.0); HGB 11.9 g/dL (11.2-15.7); Immature Grans % 0.4; Lymphocytes % 14.3; MCH 27.5 pg (27.0-33.0); MCHC 31.7 % (32.0-36.0); MCV 87 fL (80-95); MPV 10.3 fL (8.0-11.0); Monocytes % 5.9; Neutrophils % 78.3; Platelet Count 235 10^3/uL (130-400); RBC 4.32 10^6/uL (3.93-5.22); RDW 15.3 % (11.7-14.6); RDW-SD 48.7 fL
[2022-10-08 07:07] LABS: ALT 21 U/L (14-59); AST 20 U/L (15-37); Albumin 3.1 g/dL (3.4-5.0); Alkaline Phosphatase 105 U/L (46-116); Anion Gap 6.1 mmol/L (3-11); BUN 28 mg/dL (7-18); Bilirubin, Total 0.5 mg/dL (0.2-1.0); CO2 30.9 mmol/L (21.0-32.0); CREATININE 1.3 mg/dL (0.55-1.02); Calcium 9.4 mg/dL (8.5-10.1); Chloride 105 mmol/L (98-107); Estimated GFR 41.83 (mL/min/1.73m2); Glucose 181 mg/dL (74-106); Lipase 16 U/L (16-77); Potassium 4.1 mmol/L (3.5-5.1); Sodium 142 mmol/L (136-145); Total Protein 7.1 g/dL (6.4-8.2); Troponin I < 50 ng/L (<or=60)
--- NOTE | 2022-10-08 07:18 | DI.CT_ITS ---
Exam(s) CT LUMBAR SPINE RECONS CT CHEST PE ABD PELVIS W EXAM: CT CHEST PE ABD PELVIS W and CT lumbar spine recons CLINICAL HISTORY: R side chest/epigastric abd pain. TECHNIQUE: Imaging Protocol: Axial CT angiography was performed with multi-slice acquisition and mu lti-planar and/or 3D reconstructions. CONTRAST MATERIAL: Intravenous: Omnipaque 350contrast volume:100 mL COMPARISON: CT CT CHEST/ABD/PEL W from 09/01/[address] LUMBAR SPINE RECONS from 10/08/2022 FINDINGS: The examination is limited due to patient motion artifact. CHEST: Tracheobronchial tree: Patent where visualized. Pulmonary parenchyma: There are no focal consolidations. There are areas of atelectasis in the lung bases. No architectural distortion. Pulmonary Arteries: No evidence of filling defect to suggest pulmonary emboli. Mediastinum and Jenifer: No dominant adenopathy or fluid collection. The esophagus is unremarkable. Ther e is a small hiatal hernia. Visualized thyroid gland: Unremarkable. Pleura: No effusion or pneumothorax. Heart: Mild cardiomegaly. Coronary artery calcification is present. No pericardial effusion. Aorta: Thoracic aorta non-dilated. No evidence of dissection. Atherosclerosis. Bones: Within normal limits for the patient's age. No aggressive osseous lesions are identified. Soft tissues: S/p mastectomy. ABDOMEN: Liver: Normal density. No measurable mass. Portal, Superior Mesenteric, and Splenic Veins: Unremarkable. Gallbladder and Biliary Tract: No radiodense calculus or dilation. Pancreas: Normal density, no abnormal calcifications or inflammatory process. Spleen: Normal. Adrenals: No masses seen. Kidneys: Status post right nephrectomy. The left kidney is unremarkable. No radiodense stones or ob structive uropathy. No masses seen. Abdominal Aorta: Abdominal portion non-dilated. Atherosclerosis. Bowel: There is mild dilatation of the proximal small bowel. The oral contrast is not advance beyond the mid small bowel. There is a normal caliber distal small bowel. There is a transition which kj ears to lie in the lower left pelvis. No evidence of appendicitis. Peritoneal Cavity: Mild increased attenuation is seen in the mesentery in the region of the bowel tra nsition in the lower pelvis. No focal fluid collection is seen. No free air. There are postsurgical changes in the anterior abdominal wall. Lymph Nodes: Within normal limits. Bones: Within normal limits for the patient's age. No aggressive osseous lesions. Soft Tissues: Unremarkable. CT lumbar spine recons. Degenerative changes are seen in the thoracic spine. There is a stable L4 c ompression fracture deformity. There is a new compression deformity of the superior endplate of L5 s prosper 09/01/2022. There is loss of 20 percent of the height of the vertebral body. The bones are oste openic. PELVIS: Bladder: Symmetric distention, no gross wall thickening. Reproductive Organs: Unremarkable as visualized. Lymph Nodes: Within normal limits. Bones: Within normal limits. IMPRESSION: 1. No evidence pulmonary embolism, thoracic aortic dissection or aneurysm. 2. No acute pulmonary process. 3. Findings most suggestive of a small-bowel obstruction with a transition in the lower left pelvis. Mild stranding is seen around the transition point. The findings raise a question of a closed loop obstruction. 4. New mild compression deformity of the superior endplate of L5. There is loss of less than 20 perc ent of the height of the vertebral body. 5. Old stable L4 compression fracture deformity. RADIATION DOSE DELIVERED: 1542.38 mGy.cm Total DLP DATA REPOSITORY: All CT scans at this facility are submitted to the National Radiology Data Registry (NRDR) Dose Index Registry (DIR) with the [employer] (ACR). RADIATION OPTIMIZATION: All CT scans at this facility use at least one of these dose optimization te chniques: automated exposure control; mA and/or kV adjustment per patient size (includes targeted exa ms where dose is matched to clinical indication); or iterative reconstruction.
--- NOTE | 2022-10-08 07:18 | W.ED.GENAD ---
Discharge Plan Disposition Patient Disposition: Admit to [facility] Condition: Stable Discharge Details Chief Complaint: Nausea/Vomit/Diar Clinical Impression: Small bowel obstruction Primary Care Provider: Dulce Hidalgo ED Provider: Jitendra Martin Home Meds and New Rx's Prescriptions: No Action cetirizine [Zyrtec] 10 mg tablet 10 mg PO DAILY PRN polyethylene glycol 3350 [Miralax] 17 gram/dose powder 17 gm PO PRN PRN omeprazole 20 mg capsule,delayed release(DR/EC) 20 mg PO DAILY acetaminophen [Tylenol Extra Strength] 500 mg tablet 500 mg PO PRN alum-mag hydroxide-simeth 200-200-20 mg/5 mL suspension 10 ml PO PRN PRN Patient Comments: for abdominal cramping simvastatin 10 MG tablet 10 mg PO HS atenolol 50 MG tablet 50 mg PO DAILY calcium carb and citrate-vitD3 [Citracal-D3 Slow Release] 1 EACH tablet extended release 1 tab PO DAILY ondansetron 4 mg tablet,disintegrating 4 mg PO Q6H PRN (Reason: nausea and vomiting) Qty: 14 0RF hydrochlorothiazide 25 MG tablet 25 mg PO DAILY Patient Comments: does not take cyanocobalamin (vitamin B-12) [Vitamin B-12] 1,000 mcg Tablet 1,000 mcg PO DAILY magnesium oxide 400 mg Capsule 400 mg PO DAILY Xarelto 10 mg Tablet 10 mg PO DAILY furosemide 20 mg tablet 40 mg PO DAILY Qty: 0 0RF Patient Comments: Take 1 tablet by mouth once a day meclizine 12.5 mg tablet 12.5 mg PO TID PRN (Reason: dizziness) Qty: 7 0RF Medical Decision Making <Latoya Cuello DO - Last Filed: 10/08/22 07:35> 0650 -- 81-year-old female with history of obesity, hypertension, hyperlipidemia, 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 She also endorses right lower back, buttock and leg pain for the past week for which she was diagnosed with sciatica by her PCP. She also endorses right-sided chest pain with radiation to her right mid back after vomiting this morning. Blood pressure moderately hypertensive. Remainder vitals within normal limits. EKG notes a rate of 67, normal axis, LVH, no acute ischemic findings. Patient appears slightly uncomfortable with movement but nontoxic. Her abdomen is obese and minimally tender in the upper quadrants. Her chest is nontender and appears normal to inspection other than mastectomy bilaterally. Her back also appears normal to inspection with no midline lumbar spine or bilateral paraspinal tenderness. She has no focal deficits on exam. She has no horizontal or vertical nystagmus. No meningeal signs. She has no complaint of sudden onset of headache, thunderclap sensation, nystagmus to suggest subarachnoid hemorrhage or CVA. She has no exertional component to her chest pain, shortness of breath and reassuring EKG and in the setting of nausea and abdominal pain brought on by vomiting and back pain, does not appear consistent with a cardiac etiology. She has been taking her Xarelto as prescribed so less likely PE. Differential diagnosis includes viral etiology, small bowel obstruction, biliary colic, cholecystitis, pancreatitis, UTI. Considering her age and history, will obtain screening labs, CT chest abdomen pelvis and give IV Tylenol and fluid bolus. 0800 --Case endorsed to oncoming provider to follow-up on labs and imaging and final disposition. 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 She also endorses right lower back, buttock and leg pain for the past week for which she was diagnosed with sciatica by her PCP. She also endorses right-sided chest pain with radiation to her right mid back after vomiting this morning. Blood pressure moderately hypertensive. Remainder vitals within normal limits. EKG notes a rate of 67, normal axis, LVH, no acute ischemic findings. Patient appears slightly uncomfortable with movement but nontoxic. Her abdomen is obese and minimally tender in the upper quadrants. Her chest is nontender and appears normal to inspection other than mastectomy bilaterally. Her back also appears normal to inspection with no midline lumbar spine or bilateral paraspinal tenderness. She has no focal deficits on exam. She has no horizontal or vertical nystagmus. No meningeal signs. She has no complaint of sudden onset of headache, thunderclap sensation, nystagmus to suggest subarachnoid hemorrhage or CVA. She has no exertional component to her chest pain, shortness of breath and reassuring EKG and in the setting of nausea and abdominal pain brought on by vomiting and back pain, does not appear consistent with a cardiac etiology. She has been taking her Xarelto as prescribed so less likely PE. Differential diagnosis includes viral etiology, small bowel obstruction, biliary colic, cholecystitis, pancreatitis, UTI. Considering her age and history, will obtain screening labs, CT chest abdomen pelvis and give IV Tylenol and fluid bolus. 0800 --Case endorsed to oncoming provider to follow-up on labs and imaging and final disposition. Pt signed out to me pending CT's, has l4/l5 compression fractures, denies any known trauma though did have to help her family member when he fell so she is not sure if she strained it over a week ago doing this. CT shows sbo. Pt stable, still has abdominal pain, will consult general surgery Imaging Data Radiologic Study: Attestation: I personally reviewed and interpreted this imaging study as follows: Imaging: CT Scan Radiologist's impression: IMPRESSION: 1. High-grade small bowel obstruction with findings suggestive of closed loop obstruction. Surgical consult recommended. 2. No acute aortic dissection or pulmonary emboli. 3. New mild L5 compression deformity 1. Moderate L4 and mild L5 compression fractures with L4 vertebral body retropulsion and severe spinal stenosis. 2. Partially included distended loops of small bowel. Recommend attention on forthcoming CT of the abdomen/pelvis. HPI <Latoya Cuello DO - Last Filed: 10/08/22 07:35> General Mode of arrival: EMS. Date/Time Provider Initiated Documentation: 10/08/22 06:40. Limitations to Documentation: no limitations. Information obtained by: patient. 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 Patient states she awoke to use the bathroom as she does usually due to taking Lasix and when she swung her right leg out of bed she developed pain associated with her sciatica in her right buttock and leg followed by vomiting which she states was bilious. She states she then got into bed and 1 hour later she awoke to use the bathroom again and when getting out of bed she developed nausea with bilious vomiting again but now associated with upper abdominal pain. She states the pain in the abdomen has been intermittent and sharp. She states she also noted right chest with radiation to her right mid back pain after vomiting this morning. She states she saw her primary care doctor yesterday for midline lower back, right buttock and right leg pain for the past week and was diagnosed with sciatica and referred for physical therapy. She states she did not place her on any medication. Patient states her pain in her back, buttock and leg started 1 week ago. She states prior to that she was helping transfer her recently brother when she twisted her back. She denies any saddle anesthesia, bowel or bladder incontinence or leg weakness or numbness. She states she has been intermittently taking Tylenol for the pain this week with some relief. She states her last bowel movement was this morning and within normal limits. She states she was given Zofran and fentanyl per EMS and now her nausea and abdominal pain is resolved but still has lower back and right buttock pain which is 6/10. She also states she has been experiencing vertigo daily for the past 3 months for which she saw her primary care doctor and started on meclizine. She states she has not taken meclizine for the past few days. She denies any known fever, difficulty breathing, hematemesis, diarrhea, urinary symptoms, recent travel or recent new medications. Related Data Home Medications Medication Instructions Recorded Confirmed atenolol 50 mg tablet 50 mg PO DAILY 11/30/13 10/08/22 calcium carb,cit ER 600 mg-vit D3 1 tab PO DAILY 11/30/13 10/08/22 12.5 mcg (500 unit) tablet,ext.rel (Citracal-D3 Slow Release) simvastatin 10 mg tablet 10 mg PO HS 11/30/13 10/08/22 hydrochlorothiazide 25 mg tablet 25 mg PO DAILY 12/21/17 10/08/22 cyanocobalamin (vitamin B-12) 1,000 mcg PO DAILY 04/04/18 10/08/22 1,000 mcg tablet (Vitamin B-12) magnesium oxide 400 mg PO DAILY 04/04/18 10/08/22 cetirizine 10 mg tablet (Zyrtec) 10 mg PO DAILY PRN 07/27/18 10/08/22 rivaroxaban 10 mg tablet (Xarelto) 10 mg PO DAILY 08/26/18 10/08/22 acetaminophen 500 mg tablet 500 mg PO PRN 09/21/18 10/08/22 (Tylenol Extra Strength) aluminum-mag hydroxide-simethicone 10 ml PO PRN PRN 09/21/18 10/08/22 200 mg-200 mg-20 mg/5 mL oral susp omeprazole 20 mg capsule,delayed 20 mg PO DAILY 09/21/18 10/08/22 release polyethylene glycol 3350 17 17 gm PO PRN PRN 09/21/18 10/08/22 gram/dose oral powder (Miralax) ondansetron 4 mg disintegrating 4 mg PO Q6H PRN nausea and 07/11/19 10/08/22 tablet vomiting #14 tabs furosemide 20 mg tablet 40 mg PO DAILY #0 tabs 08/09/22 10/08/22 meclizine 12.5 mg tablet 12.5 mg PO TID PRN dizziness #7 08/09/22 10/08/22 tabs Previous Rx's Medication Instructions Recorded ondansetron 4 mg disintegrating 4 mg PO Q6H PRN nausea and 07/11/19 tablet vomiting #14 tabs furosemide 20 mg tablet 40 mg PO DAILY #0 tabs 08/09/22 meclizine 12.5 mg tablet 12.5 mg PO TID PRN dizziness #7 08/09/22 tabs Allergies Allergy/AdvReac Type Severity Reaction Status Date / Time latex Allergy Mild Verified 10/08/22 06:40 Sulfa (Sulfonamide AdvReac Severe liver Verified 10/08/22 06:40 Antibiotics) damage ciprofloxacin [From Cipro] AdvReac Intermediate unknown Verified 10/08/22 06:40 glucosamine AdvReac Intermediate Nausea Verified 10/08/22 06:40 glue on bandaids Allergy Mild rash Uncoded 10/08/22 06:40 Epideral Dressing AdvReac Severe Blistering Uncoded 10/08/22 06:40 General Stated Complaint: Nausea/Vomit/Diar SADIE: 3 Review of Systems <Latoya Cuello DO - Last Filed: 10/08/22 07:35> All systems reviewed & are unremarkable except as noted in HPI and below Constitutional Constitutional: Reports as per HPI, Denies chills and Denies fever(s) Eyes Eyes: Denies blurry vision ENT Ears, Nose, Mouth, and Throat: Denies dizziness, Denies sore throat and Denies throat swelling Cardiovascular Cardiovascular: Denies chest pain and Denies dyspnea Respiratory Respiratory: Denies cough and Denies dyspnea Gastrointestinal Gastrointestinal: Reports abdominal pain, Denies diarrhea, Reports nausea and Reports vomiting Genitourinary Genitourinary: Denies hematuria and Denies dysuria Musculoskeletal Musculoskeletal: Reports back pain, Denies numbness and Reports radiating pain into limb Integumentary/Breasts Skin/Breast: Denies lesions and Denies rash Neurologic Neurologic: Denies dizziness, Denies localized weakness and Denies numbness Allergic/Immunologic Allergic/Immunologic: Denies throat swelling PFSH <Latoya Cuello DO - Last Filed: 10/08/22 07:35> All Active Problems (Updated 10/08/22 @ 11:37 by Jitendra Martin MD) Small bowel obstruction (Acute) Nausea and vomiting (Acute) Anemia (Chronic) Upper abdominal pain, unspecified (Acute) Medical History (Updated 10/08/22 @ 11:37 by Jitendra Martin MD) Actinic keratosis Anemia Benign essential tremor BRCA2 positive Breast cancer, stage 1 Dehydration GERD (gastroesophageal reflux disease) H/O ovarian cancer H/O primary malignant neoplasm of urinary bladder H/O renal cell cancer HTN (hypertension) Incisional hernia IT band syndrome Neutropenia drug induced Obesity Osteopenia Pulmonary embolism Seborrheic keratoses Stage 3 chronic kidney disease Ventral hernia Surgical History H/O partial cystectomy H/O right nephrectomy Right, with partial uretectomy, Dr Ariel Do History of appendectomy unknown date History of bowel resection partial, unknown date S/P hysterectomy with oophorectomy S/P recurrent ventral herniorrhaphy (07/17/18) Dr Michael Carroll, [facility] S/P TKR (total knee replacement) Status post cataract extraction and insertion of intraocular lens of left eye (04/09/18) Status post cataract extraction and insertion of intraocular lens of right eye (04/23/18) Social History Smoking/Tobacco Use Status: Never Smoking risk assessment performed?: Yes Alcohol Intake: never Drug use: Never Substance use type: does not use Current gender identity: female Do you feel safe at home: Yes Do you feel safe in your relationship?: Yes Exam <Latoya Cuello DO - Last Filed: 10/08/22 07:35> Const General: cooperative, uncomfortable and no acute distress Orientation: alert, awake and oriented x3 HENMT Head: normal to inspection Face and sinus: normal facial exam Eyes General: appearance normal, both eyes and all related structures Pupils: PERRL EOM: EOM intact bilaterally Neck Neck: normal visual inspection and No submandibular swelling Lymphatic: no lymphadenopathy noted Chest Chest: normal inspection of the chest, normal palpation of entire chest wall and no tenderness Resp Effort & Inspection: normal respiratory effort and able to speak in complete sentences Auscultation: clear to auscultation bilaterally Cardio Rate: regular rate Rhythm: regular rhythm GI Inspection: normal to inspection and obesity Palpation: soft, not firm, not rigid and tender in the epigastrum, in the LUQ and in the RUQ Auscultation: hypoactive bowel sounds Back/Spine/Pelvis Thoracic/Lumbar Spine: thoracic and lumbar spine normal to inspection, No thoracic spinal tenderness and No lumbar spinal tenderness Skin General skin exam: no rashes or lesions noted Neuro General: patient alert, patient awake and patient oriented x3 Cognition: normal cognition Speech: speech normal Motor: muscle tone normal throughout and strength 5/5 throughout Sensory Exam: no sensory deficits noted Extrem General: normal to inspection, full ROM and edema Laterality: bilateral (Nonpitting bilateral lower extremities) Other: Faintly palpable bilateral DP/PT pulses. Psych Appearance: grossly normal Mental Status: mental status grossly normal Speech and Movement: speech and movement normal Affect: normal affect Course <Latoya Cuello DO - Last Filed: 10/08/22 07:35> Vital Signs Vital signs: Vital Signs Temperature 98.2 F 10/08/22 06:26 Pulse 74 10/08/22 06:26 Respiratory Rate 16 10/08/22 06:26 Blood Pressure 180/73 H 10/08/22 06:26 Pulse Oximetry 96 10/08/22 06:26 Temperature 98.2 F 10/08/22 06:26 Temperature Source Temporal Artery Scan 10/08/22 06:26 Pulse 74 10/08/22 06:26 Respiratory Rate 16 10/08/22 06:26 Respiratory Effort Normal 10/08/22 06:26 Blood Pressure 180/73 H 10/08/22 06:26 Blood Pressure Position Supine 10/08/22 06:26 Pulse Oximetry 96 10/08/22 06:26 Oxygen Delivery Method Room Air 10/08/22 06:26 Oxygen Flow Rate 0 10/08/22 06:26 Pain Level 0 10/08/22 06:26 Lab/Test Results Lab/Test Results: Laboratory Tests Range/Units 10/08/22 10/08/22 06:40 06:40 WBC (4.4-10.8) 10^3/uL 6.80 RBC (3.93-5.22) 10^6/uL 4.32 Hgb (11.2-15.7) g/dL 11.9 Hct (36.0-46.0) % 37.5 MCV (80-95) fL 87 MCH (27.0-33.0) pg 27.5 MCHC (32.0-36.0) % 31.7 L RDW (11.7-14.6) % 15.3 H Plt Count (130-400) 10^3/uL 235 MPV (8.0-11.0) fL 10.3 Immature Gran % 0.4 Neutrophils % 78.3 Lymphocytes % 14.3 Monocytes % 5.9 Eosinophils % 0.7 Basophils % 0.4 Nucleated RBC % (0.0-0.3) % 0.0 Absolute Neutrophils (1.2-6.7) 10^3/uL 5.32 Absolute Lymphocytes (1.2-3.4) 10^3/uL 0.97 L Absolute Monocytes (0.1-0.8) 10^3/uL 0.40 Absolute Eosinophils (0.0-0.7) 10^3/uL 0.05 Absolute Basophils (0.0-0.2) 10^3/uL 0.03 Sodium (136-145) mmol/L 142 Potassium (3.5-5.1) mmol/L 4.1 Chloride (98-107) mmol/L 105 Carbon Dioxide (21.0-32.0) mmol/L 30.9 Anion Gap (3-11) mmol/L 6.1 BUN (7-18) mg/dL 28 H Creatinine (0.55-1.02) mg/dL 1.3 H Est GFR (CKD-EPI 2020) (mL/min/1.73m2) 41.83 Glucose (74-106) mg/dL 181 H Calcium (8.5-10.1) mg/dL 9.4 Magnesium (1.8-2.4) mg/dL 2.0 Total Bilirubin (0.2-1.0) mg/dL 0.5 AST (15-37) U/L 20 ALT (14-59) U/L 21 Alkaline Phosphatase (46-116) U/L 105 Troponin I (<or=60) ng/L < 50 Total Protein (6.4-8.2) g/dL 7.1 Albumin (3.4-5.0) g/dL 3.1 L Lipase (16-77) U/L 16 Sign Out <Latoya Cuello DO - Last Filed: 10/08/22 07:35> Sign Out Data: Sign Out Comment: Lower back right buttock and leg pain for 1 week diagnosed with sciatica by PCP. Vomiting and abdominal pain since 2 AM. Follow-up on labs and imaging and final disposition. Last updated by Latoya Cuello DO at 10/08/22 07:52
[2022-10-08] MEDS: ACETAMINOPHEN 1,000 MG/100 ML BTL 400 MG IVPB (07:33)
[2022-10-08] MEDS: Normal Saline 250 ML 500 ML IV (08:08)
[2022-10-08 09:04] LABS: Bilirubin Negative (Negative); Blood Negative (Negative); Clarity Clear (Clear); Glucose Negative (Negative); Ketones Negative (Negative); Leukocyte Esterase Negative (Negative); Nitrite Negative (Negative); pH 6.5 (5-8)
[2022-10-08] MEDS: Normal Saline Flush 10 ML SYR IVP ×2 (09:10→22:20)
[2022-10-08] MEDS: Normal Saline - Diluent 50 ML VIAL IJ (09:11)
[2022-10-08] MEDS: Omnipaque 350 MG/ML 50 ML BTL PO (09:11)
[2022-10-08] MEDS: Omnipaque 350 MG/ML 500 ML BTL-Imaging package 100 ML IJ (09:12)
[2022-10-08] MEDS: Breeza Beverage 473 ML BTL PO (09:17)
[2022-10-08 09:20] LABS: Bacteria Few HPF (Negative); C & S Indicated? No/Sq. Contamination; Casts Negative LPF (Negative); Crystals Negative HPF (Negative); Epithelial Cells Moderate HPF (Negative); Mucus Trace (Negative); RBC 0-2 HPF (0-2); WBC 0-2 HPF (0-5)
--- NOTE | 2022-10-08 10:01 | DI.VRAD_ITS ---
Addendum created by Raheel Hammonds MD on 10/08/2022 10:04:38 AM EDT: Compared to prior CT of the chest, abdomen and pelvis from 09/01/2022 the L4 vertebral body compression fracture is not significantly changed. However, the mild L5 compression deformity is new. Initial report created on 10/08/2022 10:01:40 AM EDT: PROCEDURE INFORMATION: Exam: CT Lumbar Spine Without Contrast Exam date and time: 10/08/2022 9:15 AM Age: 81 years old Clinical indication: Low back pain; Additional info: Mastectomy, kidney removal, ovarian CA HX TECHNIQUE: Imaging protocol: Computed tomography of the lumbar spine without contrast. COMPARISON: CT CHEST/ABD/PEL W 09/01/2022 9:09 AM FINDINGS: Bones/joints: Moderate L4 and mild L5 compression fractures. There is 5 mm of L4 vertebral body retropulsion with severe spinal stenosis at this level. Grade 1 anterolisthesis of L4 on L5. Multilevel bilateral neural foraminal narrowing, severe at L4-L5 and L5-S1. Multilevel disc degeneration, severe at L5-S1. Kidneys and ureters: Subcentimeter hypoattenuating focus within the lower pole of the left kidney, too small to further characterize. Stomach and bowel: Partially included distended loops small bowel within the abdomen. Vasculature: Moderate atherosclerotic calcification of the aorta and its branches. Soft tissues: Unremarkable. IMPRESSION: 1. Moderate L4 and mild L5 compression fractures with L4 vertebral body retropulsion and severe spinal stenosis. 2. Partially included distended loops of small bowel. Recommend attention on forthcoming CT of the abdomen/pelvis. Dictated and Authenticated by: Raheel Hammonds MD. Ordering:DIEGO Klein MD
[2022-10-08] MEDS: HYDROmorphone 2 MG/ML SYR 1 MG IVP (10:28)
--- NOTE | 2022-10-08 10:30 | DI.VRAD_ITS ---
PROCEDURE INFORMATION: Exam: CTA Chest With Contrast CTA Abdomen With Contrast Exam date and time: 10/08/2022 9:15 AM Age: 81 years old Clinical indication: Right-sided; Abdominal pain; Epigastric; Additional info: Mastectomy, kidney removal, ovarian CA HX TECHNIQUE: Imaging protocol: Computed tomographic angiography of the chest with contrast. Computed tomographic angiography of the abdomen with contrast. 3D rendering (Not supervised by radiologist): MIP and/or 3D reconstructed images were created by the technologist. COMPARISON: CT CHEST/ABD/PEL W 09/01/2022 9:09 AM FINDINGS: Limitations: Suboptimal opacification of the arterial vasculature due to contrast bolus timing. Images are degraded by breathing motion artifact. VASCULATURE: Pulmonary arteries: No pulmonary artery filling defects. Aorta: No aortic aneurysm or dissection. Moderate atherosclerotic calcification of the aorta. Celiac trunk and mesenteric arteries: Mild stenosis of the SMA origin. No occlusion or significant stenosis of the celiac trunk. Renal arteries: Severe stenosis of the left renal artery origin. Thyroid: Bilateral thyroid nodules measuring up to 1.3 cm. CHEST: Lungs: No consolidation. No mass. Basilar and subpleural predominant abnormal reticulations and ground-glass changes, similar to prior. Diffuse mosaic attenuation. Pleural spaces: Unremarkable. No pneumothorax. No pleural effusion. Heart: Unremarkable. No cardiomegaly. No pericardial effusion. Diaphragm: Small hiatal hernia. ABDOMEN AND PELVIS: Liver: No mass. Gallbladder and bile ducts: Unremarkable. No calcified stones. No ductal dilation. Pancreas: Moderate fatty infiltration of the pancreas. Spleen: Unremarkable. No splenomegaly. Adrenal glands: Unremarkable. No mass. Kidneys and ureters: The right kidney is surgically absent. Subcentimeter hypoattenuating focus within the lower pole of the left kidney, too small to further characterize. No hydronephrosis. Stomach and bowel: Moderately distended loops of proximal and mid small bowel with decompressed distal small bowel consistent with obstruction. A transition point is identified in the lower abdomen (series 14 images [id number]). Within the region of the transition point is a tight cluster of dilated loops with surrounding fluid and inflammatory fat stranding in a configuration suggesting closed loop obstruction. Intraperitoneal space: No intraperitoneal free air. Lymph nodes: Unremarkable. No enlarged lymph nodes. Bones/joints: Stable mild height loss of the midthoracic vertebral bodies. Chronic right anterior rib fractures. Moderate L4 compression deformity, unchanged. Mild L5 compression deformity, new from prior. Degenerative changes of the spine. Soft tissues: Postsurgical changes along the anterior abdominal midline and wall. IMPRESSION: 1. High-grade small bowel obstruction with findings suggestive of closed loop obstruction. Surgical consult recommended. 2. No acute aortic dissection or pulmonary emboli. 3. New mild L5 compression deformity. THIS REPORT CONTAINS FINDINGS THAT MAY BE CRITICAL TO PATIENT CARE. The findings were verbally communicated via telephone conference with Dr. Martin at 10:25 AM EDT on 10/08/2022. The findings were acknowledged and understood. Dictated and Authenticated by: Raheel Hammonds MD. Ordering:DIEGO Klein MD
[2022-10-08] MEDS: Ondansetron 4 MG/2 ML VIAL (10:39)
--- NOTE | 2022-10-08 11:46 | HPE_ITS ---
Date of service: 10/08/22 Time of Service: 11:46 Assessment and Plan Assessment and plan (1) Small bowel obstruction: Status: Acute Assessment and plan: I discussed with the patient the necessity of NG tube and she has agreed. We discussed that most likely she will be in the hospital for about 3 to 4 days We reviewed that bowel obstructions generally start from scar tissue. And as long as she is not running a fever, white count, or having peritoneal symptoms we would prefer to do medical management. Repeat surgery only causes scar tissue and general anesthesia puts her at risk for heart attack and stroke. She is exhibiting no warning signs at this time and we will continue with conservati ve medical management. Electrolytes are stable Medications are adjusted for her oral status Tube can be clamped so patient can walk. (2) Anemia: Status: Chronic (3) BRCA2 positive: (4) Breast cancer, stage 1: (5) GERD (gastroesophageal reflux disease): (6) H/O ovarian cancer: (7) H/O primary malignant neoplasm of urinary bladder: (8) H/O renal cell cancer: (9) HTN (hypertension): (10) Incisional hernia: (11) Obesity: (12) Osteopenia: (13) Pulmonary embolism: (14) Stage 3 chronic kidney disease: (15) Ventral hernia: (16) Compression fracture of L4 vertebra: Status: Acute (17) Compression fracture of L5 vertebra: Status: Acute (18) Spinal stenosis at L4-L5 level: Status: Acute (19) Atherosclerosis of aorta: Status: Acute (20) DJD (degenerative joint disease), lumbar: Status: Acute History of Present Illness Narrative: Pt presented to the ED w/ c/o of n/v and abdominal pain. Pt has had Ovarian cancer and kidney cancer. She had a radical ovarian surgery (open) and nephrectomy open, radiation and hernia repair. She has had past SBO that have resolved w/ conservative medical Management. She had x3 BM yesterday. She has had copious vomiting today. No fever. no peritonitis. Review of Systems Constitutional Comments: no CP She denies any pain or difficulty swallowing. She does not have any appetite. She is not passing any gas. She has upper abdominal pain. She does not have any peritonitis. She denies any recent falls. She has not been on antibiotics recently. Her brother recently and this has been stressful. She denies any pain difficulty or burning with urination. She has had no fevers or chills. She has no shortness of breath or productive cough. She does not have a history of PE ED and is on lifelong Xarelto She has no calf pain or swelling. She has been dealing with some right-sided sciatica and has been going to physical therapy for this. PFSH All Active Problems (Updated 10/08/22 @ 20:08 by Kenyatta Nance DO) DJD (degenerative joint disease), lumbar (Acute) Atherosclerosis of aorta (Acute) Spinal stenosis at L4-L5 level (Acute) Severe Compression fracture of L5 vertebra (Acute) Noted on CT scan 10/02 Compression fracture of L4 vertebra (Acute) Noted on CT scan 08/2022 Small bowel obstruction (Acute) Nausea and vomiting (Acute) Anemia (Chronic) Upper abdominal pain, unspecified (Acute) Medical History (Updated 10/08/22 @ 20:08 by Kenyatta Nance DO) Actinic keratosis Anemia Benign essential tremor BRCA2 positive Breast cancer, stage 1 Dehydration GERD (gastroesophageal reflux disease) H/O ovarian cancer H/O primary malignant neoplasm of urinary bladder H/O renal cell cancer HTN (hypertension) Incisional hernia IT band syndrome Neutropenia drug induced Obesity Osteopenia Pulmonary embolism Seborrheic keratoses Stage 3 chronic kidney disease Ventral hernia Surgical History H/O partial cystectomy H/O right nephrectomy Right, with partial uretectomy, Dr Ariel Do History of appendectomy unknown date History of bowel resection partial, unknown date S/P hysterectomy with oophorectomy S/P recurrent ventral herniorrhaphy (07/17/18) Dr Michael Carroll, [facility] S/P TKR (total knee replacement) Status post cataract extraction and insertion of intraocular lens of left eye (04/09/18) Status post cataract extraction and insertion of intraocular lens of right eye ( 04/23/18) Social History Smoking/Tobacco Use Status: Never Smoking risk assessment performed?: Yes Alcohol Intake: never Drug use: Never Substance use type: does not use Current gender identity: female Do you feel safe at home: Yes Do you feel safe in your relationship?: Yes Meds Allergies and Home Medications Allergies Allergy/AdvReac Type Severity Reaction Status Date / Time latex Allergy Mild Verified 10/08/22 06:40 Sulfa (Sulfonamide AdvReac Severe liver Verified 10/08/22 06:40 Antibiotics) damage ciprofloxacin [From Cipro] AdvReac Intermediate unknown Verified 10/08/22 06:40 glucosamine AdvReac Intermediate Nausea Verified 10/08/22 06:40 glue on bandaids Allergy Mild rash Uncoded 10/08/22 06:40 Epideral Dressing AdvReac Severe Blistering Uncoded 10/08/22 06:40 Home Medications Medication Instructions Recorded Confirmed Type atenolol 50 mg tablet 50 mg PO DAILY 11/30/13 10/08/22 History calcium carb,cit ER 600 mg-vit D3 1 tab PO DAILY 11/30/13 10/08/22 History 12.5 mcg (500 unit) tablet,ext.rel (Citracal-D3 Slow Release) simvastatin 10 mg tablet 10 mg PO HS 11/30/13 10/08/22 History hydrochlorothiazide 25 mg tablet 25 mg PO DAILY 12/21/17 10/08/22 History cyanocobalamin (vitamin B-12) 1,000 mcg PO DAILY 04/04/18 10/08/22 History 1,000 mcg tablet (Vitamin B-12) magnesium oxide 400 mg PO DAILY 04/04/18 10/08/22 History cetirizine 10 mg tablet (Zyrtec) 10 mg PO DAILY PRN 07/27/18 10/08/22 History rivaroxaban 10 mg tablet (Xarelto) 10 mg PO DAILY 08/26/18 10/08/22 History acetaminophen 500 mg tablet 500 mg PO PRN 09/21/18 10/08/22 History (Tylenol Extra Strength) aluminum-mag hydroxide-simethicone 10 ml PO PRN PRN 09/21/18 10/08/22 History 200 mg-200 mg-20 mg/5 mL oral susp omeprazole 20 mg capsule,delayed 20 mg PO DAILY 09/21/18 10/08/22 History release polyethylene glycol 3350 17 17 gm PO PRN PRN 09/21/18 10/08/22 History gram/dose oral powder (Miralax) ondansetron 4 mg disintegrating 4 mg PO Q6H PRN nausea and 07/11/19 10/08/22 Rx tablet vomiting #14 tabs furosemide 20 mg tablet 40 mg PO DAILY #0 tabs 08/09/22 10/08/22 Rx meclizine 12.5 mg tablet 12.5 mg PO TID PRN dizziness #7 08/09/22 10/08/22 Rx tabs Exam Const General: cooperative, healthy appearing, comfortable and no acute distress Nutritional Appearance: average body habitus and well nourished Orientation: alert, awake and oriented x3 Other: PHYSICAL EXAM GENERAL APPEARANCE: Alert, healthy appearance, oriented, x 3,? in no acute dis tress HYDRATION: Well hydrated HEAD, EYES, EARS, NECK, THROAT: Head is normocephalic, pupils equal, round, reactive to light and accommodation, ocular movement intact, sclera clear and no jaundice. ?Dentition intact NECK: ? Trachea midline.? No JVD LUNGS: normal respiration/normal chest excursion. ?Clear to auscultation bilaterally. ?No wheeze. ?HEART: Regular rate and rhythm. no murmurs EXTREMITY: No edema or cyanosis.? no leg pain, redness, swelling.? ABDOMEN: soft no BS appreciated. Post surgical changes noted. no hernias. Results Labs 10/08/22 06:40 10/08/22 06:40 Labs: Laboratory Results - last 24 hr 10/08/22 10/08/22 10/08/22 06:40 06:40 08:43 WBC 6.80 RBC 4.32 Hgb 11.9 Hct 37.5 MCV 87 MCH 27.5 MCHC 31.7 L RDW 15.3 H Plt Count 235 MPV 10.3 Immature Gran % 0.4 Neutrophils % 78.3 Lymphocytes % 14.3 Monocytes % 5.9 Eosinophils % 0.7 Basophils % 0.4 Nucleated RBC % 0.0 Absolute Neutrophils 5.32 Absolute Lymphocytes 0.97 L Absolute Monocytes 0.40 Absolute Eosinophils 0.05 Absolute Basophils 0.03 Sodium 142 Potassium 4.1 Chloride 105 Carbon Dioxide 30.9 Anion Gap 6.1 BUN 28 H Creatinine 1.3 H Est GFR (CKD-EPI 2020) 41.83 Glucose 181 H Calcium 9.4 Magnesium 2.0 Total Bilirubin 0.5 AST 20 ALT 21 Alkaline Phosphatase 105 Troponin I < 50 Total Protein 7.1 Albumin 3.1 L Lipase 16 Urine Color Yellow Urine Clarity Clear Urine pH 6.5 Ur Specific [place] 1.020 Urine Protein 100 H Urine Ketones Negative Urine Blood Negative Urine Nitrite Negative Urine Bilirubin Negative Urine Urobilinogen 1.0 H Ur Leukocyte Esterase Negative Urine RBC 0-2 Urine WBC 0-2 Ur Epithelial Cells Moderate Urine Crystals Negative Urine Bacteria Few Urine Casts Negative Urine Mucus Trace Ur Culture Indicated? No/Sq. Contamination Urine Glucose Negative Last Vital Signs Temp 36.8 C 10/08/22 06:26 Pulse 74 10/08/22 06:26 Resp 16 10/08/22 06:26 BP 180/73 H 10/08/22 06:26 Pulse Ox 96 10/08/22 06:26 Time Spent Time spent with Patient: 55-74 minutes Time was spent: preparing to see the patient(eg.review tests), obtaining and/or reviewing separately otained hiistory, ordering medications,tests, procedures, referring, communicating with other health resident care technician, indepentently interpreting results, counseling the patient and care coordination
--- NOTE | 2022-10-08 13:45 | DI.RAD_ITS ---
Exam(s) XR PORTABLE CHEST AP EXAM: XR PORTABLE CHEST AP CLINICAL HISTORY: NG Tube placement TECHNIQUE: 2D digital imaging was performed of the chest. Two images were obtained. AP views were obtained. COMPARISON: CR XR CHEST 2V PA LATERAL from 02/22/2021 FINDINGS: MEDIASTINUM: Normal. HEART: Normal. PULMONARY VASCULATURE: Normal. LUNGS: Clear. PLEURAL SPACE: No pleural effusion or pneumothorax. BONE:Within normal limits for the patient's age. OTHER FINDINGS:The tip of the enteric tube is seen below the hemidiaphragm. IMPRESSION: Tip of the enteric tube is seen below the hemidiaphragm in the stomach. This may be confirmed with a n abdominal radiograph. DATA REPOSITORY: RADIATION DOSE DELIVERED:
[2022-10-08] MEDS: POTASSIUM CHLORIDE/D5-0.45NACL 1,000 ML 75 MEQ IV (14:13)
--- NOTE | 2022-10-08 14:30 | DI.VRAD_ITS ---
PROCEDURE INFORMATION: Exam: XR Chest Exam date and time: 10/08/2022 2:16 PM Age: 81 years old Clinical indication: Device placement; Ng tube TECHNIQUE: Imaging protocol: Radiologic exam of the chest. Views: 1 view. COMPARISON: CT CHEST PE ABD PELVIS W 10/08/2022 9:15 AM FINDINGS: Tubes, catheters and devices: Gastric tube courses over the stomach with the distal tip terminating beyond the field of view. Lungs: Mild diffuse interstitial prominence. No consolidation. Pleural spaces: Unremarkable. No pleural effusion. No pneumothorax. Heart/Mediastinum: Unremarkable. No cardiomegaly. Bones/joints: Degenerative osseous changes. IMPRESSION: Gastric tube courses over the stomach with the distal tip terminating beyond the field of view. Consider correlation with abdominal radiograph. Dictated and Authenticated by: Raheel Hammonds MD. Ordering:MILENA You MD
[2022-10-08] MEDS: Enoxaparin 40 MG/0.4 ML SYR SC (16:46)
[2022-10-08] MEDS: Pantoprazole 40 MG VIAL IVP (16:46)
[2022-10-08] MEDS: Metoprolol 5 MG/5 ML VIAL IVP ×2 (16:46→22:19)
[2022-10-09] VITALS (12 sets, daily range): BP systolic 146–179; BP diastolic 62–76; PULSE 65–76; RESP 15–21; TEMP 36.4–37.3; O2SAT 94–98
--- NOTE | 2022-10-09 | DI.RAD_ITS ---
Exam(s) XR ABDOMEN FLAT UPRIGHT EXAM: 2D digital imaging was performed. CLINICAL HISTORY: sbo. COMPARISON: CR,XR XR ABDOMEN FLAT UPRIGHT from 04/10/[address] LUMBAR SPINE RECONS from 10/08/2022 TECHNIQUE: Supine and upright views of the abdomen was performed. Three images were obtained. FINDINGS: LUNG BASES: Clear. BOWEL GAS PATTERN: Nondistended. The oral contrast has passed into the colon with the leading edge in the descending:. FREE AIR: None. CALCIFICATIONS: No radiopaque calcifications. OSSEOUS STRUCTURES: Within normal limits for the patient's age. There is a right convex curvature of the thoracolumbar spine. OTHER FINDINGS: The tip of the enteric tube is in good position in the stomach. IMPRESSION: No evidence of a bowel obstruction. DATA REPOSITORY: RADIATION DOSE DELIVERED:
[2022-10-09] MEDS: POTASSIUM CHLORIDE/D5-0.45NACL 1,000 ML 75 MEQ IV (03:08)
[2022-10-09] MEDS: Enoxaparin 40 MG/0.4 ML SYR SC ×2 (06:13→17:56)
[2022-10-09 06:43] LABS: BUN 20 mg/dL (7-18); CREATININE 1.1 mg/dL (0.55-1.02); Calcium 9.1 mg/dL (8.5-10.1); Chloride 107 mmol/L (98-107); Estimated GFR 51.11 (mL/min/1.73m2); Glucose 145 mg/dL (74-106); Magnesium 1.9 mg/dL (1.8-2.4); Sodium 142 mmol/L (136-145)
[2022-10-09] MEDS: Metoprolol 5 MG/5 ML VIAL IVP ×3 (10:09→21:03)
--- NOTE | 2022-10-09 10:47 | PDOC.CMIN ---
- If Service Date Differs Date of service: 10/09/22 Time of Service: 10:47 Care Management Initial Assess REASON FOR HOSPITALIZATION:: Small Bowel Obstruction PAST MEDICAL HISTORY/PAST SURGICAL HISTORY:: All Active Problems. DJD (degenerative joint disease), lumbar (Acute). Atherosclerosis of aorta (Acute). Spinal stenosis at L4-L5 level (Acute). Severe. Compression fracture of L5 vertebra (Acute). Noted on CT scan 10/02. Compression fracture of L4 vertebra (Acute). Noted on CT scan 08/2022. Small bowel obstruction (Acute). Nausea and vomiting (Acute). Anemia (Chronic). Upper abdominal pain, unspecified (Acute). Medical History. Actinic keratosis. Anemia. Benign essential tremor. BRCA2 positive. Breast cancer, stage 1. Dehydration. GERD (gastroesophageal reflux disease). H/O ovarian cancer. H/O primary malignant neoplasm of urinary bladder. H/O renal cell cancer. HTN (hypertension). Incisional hernia. IT band syndrome. Neutropenia. drug induced. Obesity. Osteopenia. Pulmonary embolism. Seborrheic keratoses. Stage 3 chronic kidney disease. Ventral hernia. Surgical History. H/O partial cystectomy. H/O right nephrectomy. Right, with partial uretectomy, Dr Ariel Do. History of appendectomy. unknown date. History of bowel resection. partial, unknown date. S/P hysterectomy with oophorectomy. S/P recurrent ventral herniorrhaphy (07/17/18). Dr Michael Carroll, [facility]. S/P TKR (total knee replacement). Status post cataract extraction and insertion of intraocular lens of left eye (04/09/18). Status post cataract extraction and insertion of intraocular lens of right eye (04/23/18) PREVIOUS FUNCTIONAL STATUS/SOCIAL/FAMILY SUPPORTS:: Isaura lives in [facility] with her , Taran. Her grand daughter and two great grandchildren are currently living with her. She is independent and does not receive any community services. CURRENT FUNCTIONAL STATUS:: Isaura was sitting up in her chair when CM met with her. She stated that she is doing ok today. She has an NG tube placed, which she is hoping will reduce the amount of time for her SBO to resolve. She stated that she has had a SBO previously, and it took about 6 days to resolve on its own without the use of an NG tube. She stated that she is very independent at home, and has a very supportive family. CM will continue to follow. ADVANCE DIRECTIVES:: On file, Taran, , listed as agent. Has patient been provided with info about the portal/API?: Yes Did the patient sign up for the portal?: No CODE STATUS:: Full Code INSURANCE COVERAGE / FINANCIAL ISSUES:: MCR/ supplement CURRENT HOME/COMMUNITY SERVICES/EQUIPMENT:: None. PRIMARY CARE PHYSICIAN:: Dulce Hidalgo POTENTIAL DISCHARGE NEEDS:: Evaluations for further needs, follow up appointments. PATIENT/FAMILY EDUCATION NEEDS:: Review discharge instructions and limitations, discussion of self care needs including ask me three. ANTICIPATED BARRIERS TO DISCHARGE:: None. TRANSPORTATION:: Via private vehicle by family. PLAN:: Anticipate Isaura will return home once medically cleared. Her will drive her home via private vehicle. She will follow up with her PCP and discharge plan of care. CM will continue to follow.
[2022-10-09] MEDS: Diclofenac 1% Gel 100 GM TUBE TP ×3 (13:50→21:03)
--- NOTE | 2022-10-09 14:14 | PGE_ITS ---
Date of Service Date of service: 10/09/22 Time of Service: 11:30 Assessment and Plan Assessment and plan (1) Spinal stenosis at L4-L5 level: Status: Acute (2) Compression fracture of L5 vertebra: Status: Acute Assessment and plan: - Patient has a hard time with adhesives so we will stop the lidocaine patches and try some Voltaren gel. -Aqua K-pad -We will have physical therapy come see her for any recommendations -recommend she talk to her primary care About a pain referral consult (3) Compression fracture of L4 vertebra: Status: Acute (4) Small bowel obstruction: Status: Acute Assessment and plan: -grastrograffin challenge electrolytes stable Increase fluids- -Encourage walking (5) Anemia: Status: Chronic Assessment and plan: -stable (6) Stage 3 chronic kidney disease: (7) HTN (hypertension): (8) H/O renal cell cancer: (9) H/O primary malignant neoplasm of urinary bladder: (10) H/O ovarian cancer: (11) GERD (gastroesophageal reflux disease): (12) Breast cancer, stage 1: (13) BRCA2 positive: Subjective Subjective Interval history since last seen: Pt is doing well. no headaches. No CP or SOB. no productive cough. no dysuria. no leg pain or swelling. She is still getting some mild crampy pain in the epigastric right upper quadrant region. She was up walking earlier and had 1 small flatus. No stools. She notes her urine has been dark. She has had minimal out of her NG tube. She does not have any appreciable bowel sounds today. Today she is complaining more of back pain and pain down her right leg. She does have 2 compression fractures in her back from osteoporosis. Exam Narrative Exam Narrative: PHYSICAL EXAM GENERAL APPEARANCE: Alert, healthy appearance, oriented, x 3,? in no acute distress HYDRATION: Well hydrated HEAD, EYES, EARS, NECK, THROAT: Head is normocephalic, pupils equal, round, reactive to light and accommodation, ocular movement intact, sclera clear and no jaundice. ?Dentition intact. sore throat-from NG tube. She also has some pain in her right ear. They did attempt to place NG tube on her right Nares, & may be related to that NECK: Trachea midline.? Neck supple.? No JVD LUNGS: normal respiration/normal chest excursion. ?Clear to auscultation bilaterally. ?No wheeze. ?HEART: Regular rate and rhythm. no murmurs EXTREMITY: chornic LE lymphedema ABDOMEN: soft she has some minimal crampy pain in the epigastric/right upper quadrant region. No peritoneal signs. I do not hear significant bowel sounds. Objective Last Vital Signs Temp 37 C 10/09/22 07:36 Pulse 74 10/09/22 10:09 Resp 16 10/09/22 07:36 BP 165/75 H 10/09/22 10:09 Pulse Ox 94 10/09/22 07:36 Laboratory Results - last 24 hr 10/09/22 06:06 Sodium 142 Potassium 4.0 Chloride 107 Carbon Dioxide 28.0 Anion Gap 7.0 BUN 20 H Creatinine 1.1 H Est GFR (CKD-EPI 2020) 51.11 Glucose 145 H Calcium 9.1 Magnesium 1.9 Time Spent with Patient Time Spent with Patient: 35-49 minutes Time was spent: preparing to see the patient(eg.review tests), obtaining and/or reviewing separately otained hiistory, ordering medications,tests, procedures, referring, communicating with other health child care worker, indepentently interpreting results, counseling the patient and care coordination
--- NOTE | 2022-10-09 14:17 | DI.VRAD_ITS ---
PROCEDURE INFORMATION: Exam: XR Abdomen Exam date and time: 10/09/2022 1:33 PM Age: 81 years old Clinical indication: Other: Sbo TECHNIQUE: Imaging protocol: Radiologic exam of the abdomen. Views: 2 Views. Upright and supine views. COMPARISON: CT CHEST PE ABD PELVIS W 10/08/2022 9:15 AM FINDINGS: Tubes, catheters and devices: Nasogastric tube is noted. The tip crosses to the right of midline and likely in the gastric antrum or duodenal bulb. Gastrointestinal tract: Oral contrast is noted within the colon. Bowel-gas pattern is nonobstructive. Intraperitoneal space: Normal. No free air. Bones/joints: Degenerative changes of the thoracic spine. IMPRESSION: 1. Nasogastric tube tip likely within the gastric antrum or duodenal bulb. 2. Nonobstructive bowel-gas pattern. Dictated and Authenticated by: Alhaji Askew MD. Ordering:MILENA You MD
[2022-10-09] MEDS: Gastrografin 120 ML BTL PO (15:02)
[2022-10-09] MEDS: Pantoprazole 40 MG VIAL IVP (16:02)
[2022-10-09] MEDS: Normal Saline Flush 10 ML SYR IVP (16:02)
[2022-10-09] MEDS: POTASSIUM CHLORIDE/D5-0.45NACL 1,000 ML 100 MEQ IV (16:12)
[2022-10-10] VITALS (12 sets, daily range): BP systolic 157–191; BP diastolic 55–83; PULSE 64–84; RESP 15–21; TEMP 36.3–37.9; O2SAT 94–100
[2022-10-10] MEDS: POTASSIUM CHLORIDE/D5-0.45NACL 1,000 ML 100 MEQ IV (01:56)
[2022-10-10] MEDS: Enoxaparin 40 MG/0.4 ML SYR SC ×2 (05:04→17:55)
[2022-10-10] MEDS: Metoprolol 5 MG/5 ML VIAL IVP ×3 (05:04→15:26)
[2022-10-10 06:48] LABS: HCT 34.6 % (36.0-46.0); HGB 10.9 g/dL (11.2-15.7); MCH 27.5 pg (27.0-33.0); MCHC 31.5 % (32.0-36.0); MCV 87 fL (80-95); MPV 10.4 fL (8.0-11.0); Platelet Count 198 10^3/uL (130-400); RBC 3.96 10^6/uL (3.93-5.22); RDW 15.4 % (11.7-14.6); RDW-SD 49.4 fL; WBC 7.15 10^3/uL (4.4-10.8)
[2022-10-10 07:07] LABS: Anion Gap 6.7 mmol/L (3-11); BUN 12 mg/dL (7-18); CO2 27.3 mmol/L (21.0-32.0); CREATININE 1.1 mg/dL (0.55-1.02); Calcium 9.1 mg/dL (8.5-10.1); Chloride 106 mmol/L (98-107); Estimated GFR 51.11 (mL/min/1.73m2); Glucose 153 mg/dL (74-106); Potassium 3.9 mmol/L (3.5-5.1); Sodium 140 mmol/L (136-145)
[2022-10-10] MEDS: Lidocaine 5% Patch 1 PATCH TP (08:54)
[2022-10-10] MEDS: Diclofenac 1% Gel 100 GM TUBE TP (08:54)
--- NOTE | 2022-10-10 10:01 | IN_ITS ---
Date of service: 10/10/22 Time of Service: 09:25 PT Notes Visit Reasons: Small Bowel Obstruction Physical Therapy Inpatient Initial Evaluation Date: 10/10/2022 Referring Doctor: Kenyatta Nance MD PT Orders: PT CONSULT: Compression fracture L4&5. New Dg Precautions: Fall. Standard. Activity as tolerated. Patient Profile/Admitting Diagnosis: Isaura is a 81-year-old female with medical history listed below who presented to the ED on 10/08/2022 due to vomiting, abdominal pain, right lower back pain, and right-sided chest pain. Patient was admitted for management of small bowel obstruction, anemia, pulmonary embolism, compression fracture at L4-L5, spinal stenosis at L4-L5 atherosclerotic aorta, and DJD. PMHX: All Active Problems?(Updated 10/08/22 @ 20:08 by Kenyatta Nance DO) DJD (degenerative joint disease), lumbar (Acute) Atherosclerosis of aorta (Acute) Spinal stenosis at L4-L5 level (Acute) Severe Compression fracture of L5 vertebra (Acute) Noted on CT scan 10/02 Compression fracture of L4 vertebra (Acute) Noted on CT scan 08/2022Small bowel obstruction (Acute) Nausea and vomiting (Acute) Anemia (Chronic) Upper abdominal pain, unspecified (Acute) Medical History?(Updated 10/08/22 @ 20:08 by Kenyatta Nance DO) Actinic keratosis Anemia Benign essential tremor BRCA2 positive Breast cancer, stage 1 Dehydration GERD (gastroesophageal reflux disease) H/O ovarian cancer H/O primary malignant neoplasm of urinary bladder H/O renal cell cancer HTN (hypertension) Incisional hernia IT band syndrome Neutropenia drug inducedObesity Osteopenia Pulmonary embolism Seborrheic keratoses Stage 3 chronic kidney disease Ventral hernia Surgical History? H/O partial cystectomy H/O right nephrectomy Right, with partial uretectomy, Dr Ariel Do History of appendectomy unknown date History of bowel resection partial, unknown date S/P hysterectomy with oophorectomy S/P recurrent ventral herniorrhaphy (07/17/18) Dr Michael Carroll, [facility] S/P TKR (total knee replacement) Status post cataract extraction and insertion of intraocular lens of left eye (04/09/18) Status post cataract extraction and insertion of intraocular lens of right eye (04/23/18) Social History/Home Situation: Lives with in a private home with a flight of steps through the cellar to get into the main floor of the house. Independent with all aspects of ADLs prior to admission. Equipment Owned/DME: FWW, SPCs Subjective: Reports moderate pain from the low back area going down through the right lower extremity with ambulation activity. Denies headache, chest pain, and lightheadedness throughout session. Did reports shortness of breath with activity that subsided with rest. Objective: General Observation: Seated in bedside chair. IV access through the left UE. Telemetry monitoring in place. NGT temporarily detached by Nurse [place] for Pt session. Mental Status: Alert and oriented as to person, place, time, and purpose. Able to pay attention, focus, and respond appropriately. Pain: Denies abdominal pain. Reports 4-5/10 in low back that travels down B legs but more to the R Vital Signs: WNL as closely monitored via tel ROM: Right Upper Extremity: Shoulder Flexion WFL. Shoulder abduction WFL. Elbow flexion WFL. Wrist flexion WFL. Functional opening and closing of hand WFL. Left Upper Extremity: Shoulder Flexion WFL. Shoulder abduction WFL. Elbow flexion WFL. Wrist flexion WFL. Functional opening and closing of hand WFL. Right Lower Extremity: Hip flexion limited to 90 due to pain report in the low back. Hip abduction WFL. Knee flexion WFL. Ankle dorsiflexion WFL. Ankle plantarflexion WFL. Left Lower Extremity: Hip flexion WFL. Hip abduction WFL. Knee flexion WFL. Ankle dorsiflexion WFL. Ankle plantarflexion WFL. Strength: Right Upper Extremity: Shoulder flexors 3+/5. Shoulder abductors 3+/5. Elbow flexors 4-/5. Elbow extensors 4-/5. Packaging [employer] Inspector strong. Left Upper Extremity: Shoulder flexors 3+/5. Shoulder abductors 3+/5. Elbow flexors 4-/5. Elbow extensors 4-/5. Packaging Materials Inspector strong. Right Lower Extremity: Hip flexors 3-/5. Hip abductors 3+/5. Knee flexors 4-/5. Knee extensors 4-/5. Ankle dorsiflexors 4-/5. Ankle plantarflexors 4-/5. Left Lower Extremity: Hip flexors 3+/5. Hip abductors 3+/5. Knee flexors 4-/5. Knee extensors 4-/5. Ankle dorsiflexors 4-/5. Ankle plantarflexors 4-/5. Bed Mobility/Transfers: Sit to stand contact guard assist Stand to sit contact guard assist Bed to toilet seat stand by assist Toilet seat to bed stand by assist Bed to reclining chair stand by assist Gait: Instructed patient with level surface ambulation of 100 feet requiring contact guard assist. Ally decreased. Step height decreased. Step length decreased. Minimal shortness of breath. Complained about pain radiating down her legs with the R more painful than the L. Balance: Static Sitting: Normal Dynamic Sitting: Good Static Standing: Fair Dynamic Standing: Fair Special Tests: Mobility Limitations Standardized Measure [facility] AM-PAC 6 clicks Basic Mobility Inpatient Short Form: Raw Score: 18 CMS Score: 47% deficit Informed Consent/Education: Patient was instructed in purpose of PT consult and plan of care. Agreeable to proceed with established PT POC to achieve personal goals. Assessment: L4-L5 Radiculopathic symptoms limiting mobility performance. Distance walked limited by pain level in the low back with lateralization to B LE with R more affected than L. Did not need a significant amount of physical assistance despite the pain. Walking antalgic. Will not need to walk too long at home and so may go home when medically cleared by general surgeon and continue with outpatient PT services to manage low back pain symptoms. Patient presents with clinical signs and symptoms consistent with current/admitting diagnoses that have resulted to mobility limitations, gait instability, generalized weakness, and overall ADL decline as demonstrated by the following impairment level findings: 1. Decreased strength to B UE/LE major muscle groups 2. Impaired standing balance 3. Impaired activity tolerance 4. Limitation of joint range of motion in R hip 5. Shortness of breath 6. Swelling Impairments are contributing to the following functional limitations: 1. Decline in bed mobility skills 2. Decline in transfer skills 3. Difficulty with ambulation without assistive device and physical assistance 4. Increased completion time for mobility ADL performance 5. Increased risk for falls 6. Difficulty with managing steps alone safely Patient is assessed as a 41426 moderate complexity based on the following: History: 81-year-old female with past medical history as indicated above Examination: Demonstrable impairment in strength, balance, and mobility level with underlying impairments and functional limitations as exhibited above as well as deficit score of 47% utilizing the [facility] Mobility Inpatient Short Form Presentation: Evolving Decision Makin moderate complexity Goals: Goals X1 week 1. Supine-Sit independent 2. Sit-Supine independent 3. Sit-Stand independent 4. Stand-Sit independent with 4WW 5. Bed-Chair independent with 4WW 6. Chair-Bed independent with 4WW 7. Independent gait on level surface with use of 4WW for at least 300 feet without report of pain nor dyspnea 8. Independent stair negotiation while holding onto B rails for at least 12 steps without report of pain nor dyspnea 9. Independent with home exercise program 10. Good static and dynamic standing balance/tolerance PLAN OF CARE/TREATMENT PLAN: 1-2x/day, 7 days/week x 1 week. Plan of care has been reviewed with the [employer] providing the service under Physical Therapy direction. Pre-medicate for pain before sessions. Back flexion exercises with ADIM as tolerated: posterior pelvic tilt x 10 AKTC x 10 pelvic rock x 10 Ambulation training and upgrade to 4WW as tolerated Stair negotiation training DISCHARGE RECOMMENDATIONS: Home with no services [] [] Home with services [specify] [X] Home with outpatient PT. Home when medically cleared by general surgeon. Recommend OP PT services for back rehabilitation to minimize low back pain symptoms. [] SNF for continued rehabilitation [] [] [facility] Care [] [] SNF versus LTC based on ability to participate and progress [] TREATMENT CODE/TIME: 21980 x 26 minutes beginning at 9:25 AM. Thank you for the opportunity to participate in the care of this patient. Keiry Miles PT, DPT, CLT [facility] [place], [place]
--- NOTE | 2022-10-10 11:01 | PDOC.CMPRO ---
- If Service Date Differs Date of service: 10/10/22 Time of Service: 11:01 Care Management Progress Note S/O: Isaura was sitting up in her chair when CM met with her. She stated that the provider removed her NG tube shortly before this visit, which she was happy about, although she reported that her throat feels sore and scratchy. CM reported this to her RN, who will follow up. Isaura stated that per MD, she may be ready for discharge tomorrow if she is able to tolerate an advanced diet. CM will continue to follow. A: Isaura is a 81 year old female admitted to [facility] on 10/08/22 for SBO. P: Anticipate Isaura will return home once medically cleared. Her will drive her home via private vehicle. She will follow up with her PCP and discharge plan of care. CM will continue to follow.
[2022-10-10] MEDS: ACETAMINOPHEN 1,000 MG/100 ML BTL 400 MG IVPB (11:33)
--- NOTE | 2022-10-10 12:15 | W.PM.PROGNOT ---
Date of Service Date of service: 10/10/22 Time of Service: 12:16 Assessment and Plan Assessment and plan (1) Spinal stenosis at L4-L5 level: Status: Acute (2) Compression fracture of L5 vertebra: Status: Acute Assessment and plan: - Patient has a hard time with adhesives so we will stop the lidocaine patches and try some Voltaren gel. -Aqua K-pad -We will have physical therapy come see her for any recommendations -recommend she talk to her primary care About a pain referral consult (3) Compression fracture of L4 vertebra: Status: Acute (4) Small bowel obstruction: Status: Acute Assessment and plan: Resolved. ? ileus vs obstruction Start on clear liquids and advance as tolerated. Hopefully Home tomorrow (5) Anemia: Status: Chronic Assessment and plan: -stable (6) Stage 3 chronic kidney disease: (7) HTN (hypertension): (8) H/O renal cell cancer: (9) H/O primary malignant neoplasm of urinary bladder: (10) H/O ovarian cancer: (11) GERD (gastroesophageal reflux disease): (12) Breast cancer, stage 1: (13) BRCA2 positive: Subjective Subjective Interval history since last seen: Isaura is doing well. She has had a large liquid BM. Small amount of flatus. Gastrografin challenge showed no dilated small bowel and the contrast was in the colon. She has minimal pain Exam Const General: comfortable and no acute distress Orientation: alert and oriented x3 HENMT Head: normocephalic and atraumatic Resp Effort & Inspection: normal respiratory effort Auscultation: clear to auscultation bilaterally Cardio Rate: regular rate Rhythm: regular rhythm Heart Sounds: no gallops, no murmurs and no rubs GI Inspection: normal to inspection Palpation: soft, no hepatosplenomegaly and nontender Auscultation: normoactive bowel sounds Objective Last Vital Signs Temp 100.0 F H 10/10/22 11:18 Pulse 73 10/10/22 11:18 Resp 16 10/10/22 11:18 BP 170/63 H 10/10/22 11:18 Pulse Ox 99 10/10/22 11:18 Laboratory Results - last 24 hr 10/10/22 10/10/22 06:35 06:35 WBC 7.15 RBC 3.96 Hgb 10.9 L Hct 34.6 L MCV 87 MCH 27.5 MCHC 31.5 L RDW 15.4 H Plt Count 198 MPV 10.4 Sodium 140 Potassium 3.9 Chloride 106 Carbon Dioxide 27.3 Anion Gap 6.7 BUN 12 Creatinine 1.1 H Est GFR (CKD-EPI 2020) 51.11 Glucose 153 H Calcium 9.1 Magnesium 2.0 Time Spent with Patient Time Spent with Patient: <25 minutes Time was spent: preparing to see the patient(eg.review tests), obtaining and/or reviewing separately otained hiistory, indepentently interpreting results and counseling the patient
--- NOTE | 2022-10-10 16:59 | PT.INTREAT ---
Date of service: 10/10/22 Time of Service: 16:38 PT Notes Visit Reasons: Small Bowel Obstruction Inpatient Physical Therapy Treatment Note [facility] Date: 10/10/22 PRECAUTIONS: Fall, Standard, Activity as tolerated. SUBJECTIVE: patient sitting up in chair by window, agreeable to therapy OBJECTIVE: PAIN: none reported BED MOBILITY/TRANSFERS Rolling L/R: Not observed Supine-sit: Not observed Sit-supine: Not observed Sit-stand: standby Stand-sit: standby Bed-Chair:standby Chair-bed: standby GAIT Assistive Device: rolling walker Weight bearing: full Assist: standby Distance: 350 feet Deviation: reduced step length, forward posture THEREX: Seated LE strengthening including 2x10 LAQ's, hip ab/adduction, marching, heel raises, toe raises. Sit to stands 2x5. ASSESSMENT: Patient tolerated therapy well, reports ambulating in [place] by herself with walker or IV pole. Uses a cane at home. PLAN: continue general strengthening for functional activity tolerance per plan of care TREATMENT CODE/TIME: 75159 Gait 15 minutes, 15977 Ther Ex 15 minutes
[2022-10-10] MEDS: Patch Removal 1 EACH TD (20:55)
[2022-10-11 04:04] VITALS: BP 152/47; PULSE 76; RESP 15; TEMP 36.5; O2SAT 96
[2022-10-11 04:10] VITALS: BP 152/55
[2022-10-11 04:39] VITALS: BP 152/55; PULSE 74
[2022-10-11 07:17] LABS: Anion Gap 7.7 mmol/L (3-11); BUN 10 mg/dL (7-18); CO2 27.3 mmol/L (21.0-32.0); CREATININE 1.2 mg/dL (0.55-1.02); Calcium 9.3 mg/dL (8.5-10.1); Chloride 108 mmol/L (98-107); Estimated GFR 46.05 (mL/min/1.73m2); Glucose 126 mg/dL (74-106); Magnesium 1.9 mg/dL (1.8-2.4); Sodium 143 mmol/L (136-145)
[2022-10-11 07:23] VITALS: BP 168/73; PULSE 78; RESP 16; TEMP 36.5; O2SAT 97
[2022-10-11] MEDS: Magnesium Oxide 400 MG TAB PO (08:25)
[2022-10-11] MEDS: Omeprazole 20 MG CAPCR PO (08:26)
[2022-10-11] MEDS: Rivaroxaban 10 MG TABLET PO (08:26)
[2022-10-11] MEDS: Furosemide 40 MG TAB PO (08:26)
[2022-10-11] MEDS: Atenolol 50 MG TAB PO (08:27)
[2022-10-11] MEDS: Lidocaine 5% Patch 1 PATCH TP (08:27)
--- NOTE | 2022-10-11 08:41 | DSE_ITS ---
Date of service: 10/11/22 Time of Service: 08:41 DS: Diagnosis Discharge Diagnosis (1) Spinal stenosis at L4-L5 level: Status: Acute (2) Compression fracture of L5 vertebra: Status: Acute Asessment and Plan: Encourage patient to contact her PCP so she can get referral to pain clinic Okay to continue outpatient PT (3) Compression fracture of L4 vertebra: Status: Acute (4) Small bowel obstruction: Status: Acute Asessment and Plan: Pt is doing well. no headaches. No CP or SOB. no productive cough. no dysuria. no leg pain or swelling. She complains of mild sore throat. She is tolerating regular diet. She has been able to move her bowels. (5) Anemia: Status: Chronic (6) Stage 3 chronic kidney disease: (7) HTN (hypertension): (8) H/O renal cell cancer: (9) H/O primary malignant neoplasm of urinary bladder: (10) H/O ovarian cancer: (11) GERD (gastroesophageal reflux disease): (12) Breast cancer, stage 1: (13) BRCA2 positive: Discharge Plan Disposition Patient Disposition: Home Condition: Stable Condition: Improving Discharge Details Reason For Visit: Small Bowel Obstruction Admit Date/Time: 10/08/22 11:39 Admit Provider: Kenyatta Nance Attending Provider: Kenyatta Nance Primary Care Provider: Dulce Hidalgo [facility] Course Hospital Course: see addendum Home Meds and New Rx's Prescriptions: Continued cetirizine [Zyrtec] 10 mg tablet 10 mg PO DAILY PRN polyethylene glycol 3350 [Miralax] 17 gram/dose powder 17 gm PO PRN PRN omeprazole 20 mg capsule,delayed release(DR/EC) 20 mg PO DAILY acetaminophen [Tylenol Extra Strength] 500 mg tablet 500 mg PO PRN alum-mag hydroxide-simeth 200-200-20 mg/5 mL suspension 10 ml PO PRN PRN Patient Comments: for abdominal cramping simvastatin 10 MG tablet 10 mg PO HS atenolol 50 MG tablet 50 mg PO DAILY calcium carb and citrate-vitD3 [Citracal-D3 Slow Release] 1 EACH tablet extended release 1 tab PO DAILY ondansetron 4 mg tablet,disintegrating 4 mg PO Q6H PRN (Reason: nausea and vomiting) Qty: 14 0RF hydrochlorothiazide 25 MG tablet 25 mg PO DAILY Patient Comments: does not take cyanocobalamin (vitamin B-12) [Vitamin B-12] 1,000 mcg Tablet 1,000 mcg PO DAILY magnesium oxide 400 mg Capsule 400 mg PO DAILY Xarelto 10 mg Tablet 10 mg PO DAILY furosemide 20 mg tablet 40 mg PO DAILY Qty: 0 0RF Patient Comments: Take 1 tablet by mouth once a day meclizine 12.5 mg tablet 12.5 mg PO TID PRN (Reason: dizziness) Qty: 7 0RF Discharge Instructions Additional Instructions: -Follow-up with PCP in 2 week. -soft diet: No beef/pork raw vegetables x1 -week. Cooked vegetables are fine -no straining to move bowels. He did not have a bowel movement during the day take a half to a full dose of MiraLAX at bedtime. -It is ok to shower. -You may find that your appetite is smaller. Eat 3-6 small meals throughout the day. It is important to drink lots of water after surgery, 6-10 glasses a day. -If you were given an incentive spirometry (breathing keg header?), continue to do this 10x/hour while awake. -We do want you up walking, at least 5-6 times per day. This is very important to prevent pneumonia and blood clots. You can climb stairs, take them slowly. -No strenuous activity x1 week -You may find that you are very tired after being in the hospital- this is normal. -Follow-up with PCP in 2 weeks time. -resume PT in 1 week's time -Discussed with PCP regarding referral to pain clinic Gastrointestinal Soft Diet Overview Overview What is a gastrointestinal soft diet? This diet is soft in texture, low in fiber, and easy to digest. The goal is to decrease) ?in the bowel that may cause and discomfort. This diet is often used after abdominal surgery or as a transitional diet after flares. Meats & Meat Substitutes ?? Foods Allowed: Chicken, turkey, fish, tender cuts of beef and pork, ground meats, eggs, creamy nut butters, tofu, skinless hot dogs, sausage patties without whole spices ?? Foods to Avoid : Tough, fibrous meats with gristle, meat with casings (hot dogs, sausage, kielbasa), lunch meats with whole spices, shellfish, beans, chunky peanut butter, nuts Fruits and Juices ?? Foods Allowed: Fruit juices without pulp, banana, avocado, applesauce, canned peaches and pears, cooked fruit without the skin/seeds.? Ground or over- cooked fruits.? Fruits ground finely in a ?smoothie?. ?? Foods to Avoid: Juices with pulp, fresh fruit (except banana and avocado), dried fruits, canned fruit cocktail and pineapple, coconut, frozen/thawed berries Vegetables ?? Foods Allowed: Well-cooked or canned vegetables, potatoes without skin, tomato sauces, vegetable juice ?? Foods to Avoid: Raw vegetables, all corn, all mushrooms, stewed tomatoes, potato skins, stir-black vegetables, sauerkraut, pickles, olives, all dried beans, peas, and legumes Cereals and Grains ?? Foods Allowed: Low- fiber dry or cooked cereals (less than 2 grams fiber per serving), white rice, pasta, macaroni, or noodles ?? Foods to Avoid: Cereals with nuts, berries, dried fruits, whole grain cereals, bran cereals, granola, brown or wild rice, whole grain pasta Breads and Crackers ?? Foods Allowed: White/refined breads and rolls, plain bagel, toast, plain crackers, floyd crackers ?? Foods to Avoid: Whole grain breads- including white whole grain; bread/ rolls with raisins, nuts or seeds, multi-grain crackers Dairy ?? Foods Allowed: Milk, cheese, yogurt, milkshakes, pudding, ice cream, cottage cheese, sherbet ;?lactose free or low lactose versions if lactose intolerant ?? Foods to Avoid: Dairy product mixed with fresh fruit (except banana), berries, nuts or seeds Desserts ?? Foods Allowed: Plain cake, pudding, custard, ice cream, sherbet, gelatin, fruit whips ?? Foods to Avoid: Any dessert that contains nuts, dried fruits, coconut, or fruits with seeds Herbs and Spices ?? Foods Allowed: All ground spices or herbs, salt ?? Foods to Avoid: Whole spices such as peppercorns, whole cloves, anise seeds, celery seeds, ryann, ian seeds, and fresh herbs Snacks/Other Foods ?? Foods Allowed: Sugar, honey, jelly, mayonnaise, mustard, soy sauce, oil, butter, margarine, marshmallows, cookies without dried fruits or nuts, snack chips and pretzels using refined flours ?? Foods to Avoid: Carbonated beverages, jams or jellies with seeds, popcorn After several weeks, slowly start to reintroduce the ?Foods to Avoid? back into your diet unless your doctor has told you otherwise. Try a small portion of one of these foods each day. If it does not bother you within 24 hours, it can be added to your diet. Continue to add new foods in this way. Some people may continue to have food sensitivities and may need to continue to avoid certain foods. If you cannot tolerate a food, avoid that food for a few weeks before you try it again. Guidelines when eating 1.? Avoid any food that you cannot tolerate or that causes gas, bloating, or stomach pain. 2.? Make time for your meals. Do not eat while you are in a hurry. Cut your food into small pieces. Chew each bite to a mashed potato consistency. Do not eat when you cannot concentrate on chewing well. 3.? Drink at least 6-8 cups of fluid per day? Fluids include: water, coffee, tea, juice, milk, popsicles, soups, gelatin, pudding, ice cream, sherbet, and yogurt. In addition, choose caffeine-free beverages more often, especially if you are having?diarrhea. 4.? A daily multivitamin may be recommended if diet is limited in amounts or variety of foods. Do not take any herbal supplements without first checking with your doctor. Activity:: see above Equipment/Supplies:: No Equipment Needed Diet:: see above DS: Summary Time Spent with Patient providing and/or coordinating discharge services: Less than 30 minutes Status at Discharge Functional status at discharge: independent ambulation Overall status at discharge: patient is progressing back to baseline Mental Status: mental status grossly normal Speech and Movement: speech and movement normal Mood: congruent mood Affect: normal affect Exam Psych Mental Status: mental status grossly normal Speech and Movement: speech and movement normal Mood: congruent mood Affect: normal affect DS: Data Vitals/I&O Vitals and I&O: Vital Signs Temperature 36.5 C 10/11/22 07:23 Temperature Source Tympanic 10/11/22 07:23 Pulse 78 10/11/22 07:23 Pulse Rhythm Regular 10/11/22 08:00 Respiratory Rate 16 10/11/22 07:23 Respiratory Effort Normal, Non-Labored 10/11/22 08:00 Respiratory Depth Normal 10/11/22 08:00 Respiratory Pattern Normal 10/11/22 08:00 Blood Pressure 168/73 H 10/11/22 07:23 Blood Pressure Position Supine 10/08/22 06:26 Pulse Oximetry 97 10/11/22 07:23 Oxygen Delivery Method Room Air 10/11/22 07:23 Oxygen Flow Rate 0 10/11/22 07:23 Pain Level 0 10/11/22 04:04 Comment RN Notified 10/09/22 20:16 Intake & Output 10/10/22 10/10/22 10/11/22 11:59 23:59 11:59 Intake Total 973.333 / 2433.333 1460 / 2433.333 Output Total 1000 / 1300 300 / 1300 200 / 200 Balance -26.667 / 7140.380 2187 / 1133.333 -200 / -200 Intake: IV 973.333 / 2073.333 1100 / 2073.333 Oral 360 / 360 Output: Urine 1000 / 1300 300 / 1300 200 / 200 Other: Urine Color Yellow Yellow Yellow Urine Appearance Clear Cloudy Clear Urine Odor None Comment Patient reports voiding in toilet. Yellow urine, not measured, hat is not in the toilet. Stool Size Moderate Stool Characteristics Liquid Voiding Methods Toilet Toilet Toilet Data Completed and Pending Labs on day of discharge: Labs from last 24 hours 10/11/22 06:25 Sodium 143 Potassium 4.0 Chloride 108 H Carbon Dioxide 27.3 Anion Gap 7.7 BUN 10 Creatinine 1.2 H Est GFR (CKD-EPI 2020) 46.05 Glucose 126 H Calcium 9.3 Magnesium 1.9 PFSH All Active Problems (Updated 10/08/22 @ 20:08 by Kenyatta Nance DO) DJD (degenerative joint disease), lumbar (Acute) Atherosclerosis of aorta (Acute) Spinal stenosis at L4-L5 level (Acute) Severe Compression fracture of L5 vertebra (Acute) Noted on CT scan 10/02 Compression fracture of L4 vertebra (Acute) Noted on CT scan 08/2022 Small bowel obstruction (Acute) Nausea and vomiting (Acute) Anemia (Chronic) Upper abdominal pain, unspecified (Acute) Medical History (Updated 10/08/22 @ 20:08 by Kenyatta Nance DO) Actinic keratosis Anemia Benign essential tremor BRCA2 positive Breast cancer, stage 1 Dehydration GERD (gastroesophageal reflux disease) H/O ovarian cancer H/O primary malignant neoplasm of urinary bladder H/O renal cell cancer HTN (hypertension) Incisional hernia IT band syndrome Neutropenia drug induced Obesity Osteopenia Pulmonary embolism Seborrheic keratoses Stage 3 chronic kidney disease Ventral hernia Surgical History H/O partial cystectomy H/O right nephrectomy Right, with partial uretectomy, Dr Ariel Do History of appendectomy unknown date History of bowel resection partial, unknown date S/P hysterectomy with oophorectomy S/P recurrent ventral herniorrhaphy (07/17/18) Dr Michael Carroll, [facility] S/P TKR (total knee replacement) Status post cataract extraction and insertion of intraocular lens of left eye (04/09/18) Status post cataract extraction and insertion of intraocular lens of right eye (04/23/18) Social History Smoking/Tobacco Use Status: Never Smoking risk assessment performed?: Yes Alcohol Intake: never Drug use: Never Substance use type: does not use Current gender identity: female Do you feel safe at home: Yes Do you feel safe in your relationship?: Yes Time Spent with Patient Time Spent with Patient: <45 minutes Time was spent: preparing to see the patient(eg.review tests), obtaining and/or reviewing separately otained hiistory, ordering medications,tests, procedures, referring, communicating with other health healthcare administrative assistant, indepentently interpreting results, counseling the patient and care coordination
--- NOTE | 2022-10-11 08:55 | PDOC.CMDIS ---
- If Service Date Differs Date of service: 10/11/22 Time of Service: 08:55 LACE Index Scoring Tool - Questions: Length of Stay (in days): 2 Acuity (Admit via E.D.?): Yes Comorbidities: Any Tumor, Liver or Renal Disease E.D. Visits: 2 - Answers: Total Score: 12 Risk of Readmission: High Risk Care Management Discharge Reason for Hospitalization: Small Bowel Obstruction Discharge Plan: Isaura will return home once medically cleared. Her will drive her home via private vehicle. She will follow up with her PCP and discharge plan of care. Patient/Family Education Needs: Review discharge instructions, discuss Ask Me Three.
--- NOTE | 2022-10-11 09:33 | PGE_ITS ---
Date of Service Date of service: 10/11/22 Time of Service: 09:33 Assessment and Plan Assessment and plan (1) Small bowel obstruction: Status: Acute Assessment and plan: plan d/c today take miralax at night if no BM during the day soft diet ok to resume PT talk to PCP about referral to pain clinic Subjective Subjective Interval history since last seen: Pt is doing well. no headaches. No CP or SOB. no productive cough. no dysuria. no leg pain or swelling. c/o back pain/R sciatic toelrating po's. Multiple BM yesterday Exam Const Other: PHYSICAL EXAM GENERAL APPEARANCE: Alert, healthy appearance, oriented, x 3,? in no acute distress HYDRATION: Well hydrated HEAD, EYES, EARS, NECK, THROAT: Head is normocephalic, pupils equal, round, reactive to light and accommodation, ocular movement intact, sclera clear and no jaundice. ?Dentition intact. sore throat from NGT NECK: ? Trachea midline.? Neck supple.? No JVD LUNGS: normal respiration/normal chest excursion. ?Clear to auscultation bilaterally. ?No wheeze. ?HEART: Regular rate and rhythm. no murmurs ABDOMEN: soft and non-tender to palpation.? Normal bowel sounds.? Objective Last Vital Signs Temp 36.5 C 10/11/22 07:23 Pulse 78 10/11/22 07:23 Resp 16 10/11/22 07:23 BP 168/73 H 10/11/22 07:23 Pulse Ox 97 10/11/22 07:23 Laboratory Results - last 24 hr 10/11/22 06:25 Sodium 143 Potassium 4.0 Chloride 108 H Carbon Dioxide 27.3 Anion Gap 7.7 BUN 10 Creatinine 1.2 H Est GFR (CKD-EPI 2020) 46.05 Glucose 126 H Calcium 9.3 Magnesium 1.9 Time Spent with Patient Time Spent with Patient: 25-34 minutes Time was spent: preparing to see the patient(eg.review tests), obtaining and/or reviewing separately otained hiistory, ordering medications,tests, procedures, referring, communicating with other health critical care paramedic, indepentently interpreting results, counseling the patient and care coordination
[2022-10-11 09:36] VITALS: BP 138/80
--- NOTE | 2022-10-11 10:19 | DSE_ITS ---
Date of service: 10/11/22 Time of Service: 10:20 DS: Diagnosis Discharge Diagnosis (1) Small bowel obstruction: Status: Acute Discharge Plan Disposition Patient Disposition: Home Condition: Improving Discharge Details Reason For Visit: Small Bowel Obstruction Admit Date/Time: 10/08/22 11:39 Admit Provider: Kenyatta Nance Attending Provider: Kenyatta Nance [facility] Course: see addendum Home Meds and New Rx's Prescriptions: Continued cetirizine [Zyrtec] 10 mg tablet 10 mg PO DAILY PRN polyethylene glycol 3350 [Miralax] 17 gram/dose powder 17 gm PO PRN PRN omeprazole 20 mg capsule,delayed release(DR/EC) 20 mg PO DAILY acetaminophen [Tylenol Extra Strength] 500 mg tablet 500 mg PO PRN alum-mag hydroxide-simeth 200-200-20 mg/5 mL suspension 10 ml PO PRN PRN Patient Comments: for abdominal cramping simvastatin 10 MG tablet 10 mg PO HS atenolol 50 MG tablet 50 mg PO DAILY calcium carb and citrate-vitD3 [Citracal-D3 Slow Release] 1 EACH tablet extended release 1 tab PO DAILY ondansetron 4 mg tablet,disintegrating 4 mg PO Q6H PRN (Reason: nausea and vomiting) Qty: 14 0RF hydrochlorothiazide 25 MG tablet 25 mg PO DAILY Patient Comments: does not take cyanocobalamin (vitamin B-12) [Vitamin B-12] 1,000 mcg Tablet 1,000 mcg PO DAILY magnesium oxide 400 mg Capsule 400 mg PO DAILY Xarelto 10 mg Tablet 10 mg PO DAILY furosemide 20 mg tablet 40 mg PO DAILY Qty: 0 0RF Patient Comments: Take 1 tablet by mouth once a day meclizine 12.5 mg tablet 12.5 mg PO TID PRN (Reason: dizziness) Qty: 7 0RF Discharge Instructions Additional Instructions: -Follow-up with PCP in 2 week. -soft diet: No beef/pork raw vegetables x1 -week. Cooked vegetables are fine -no straining to move bowels. He did not have a bowel movement during the day take a half to a full dose of MiraLAX at bedtime. -It is ok to shower. -You may find that your appetite is smaller. Eat 3-6 small meals throughout the day. It is important to drink lots of water after surgery, 6-10 glasses a day. 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 -We do want you up walking, at least 5-6 times per day. This is very important to prevent pneumonia and blood clots. You can climb stairs, take them slowly. -No strenuous activity x1 week -You may find that you are very tired after being in the hospital- this is normal. -Follow-up with PCP in 2 weeks time. -resume PT in 1 week's time -Discussed with PCP regarding referral to pain clinic Gastrointestinal Soft Diet Overview Overview What is a gastrointestinal soft diet? This diet is soft in texture, low in fiber, and easy to digest. The goal is to decrease) ?in the bowel that may cause and discomfort. This diet is often used after abdominal surgery or as a transitional diet after flares. Meats & Meat Substitutes ?? Foods Allowed: Chicken, turkey, fish, tender cuts of beef and pork, ground meats, eggs, creamy nut butters, tofu, skinless hot dogs, sausage patties without whole spices ?? Foods to Avoid : Tough, fibrous meats with gristle, meat with casings (hot dogs, sausage, kielbasa), lunch meats with whole spices, shellfish, beans, chunky peanut butter, nuts Fruits and Juices ?? Foods Allowed: Fruit juices without pulp, banana, avocado, applesauce, canned peaches and pears, cooked fruit without the skin/seeds.? Ground or over- cooked fruits.? Fruits ground finely in a ?smoothie?. ?? Foods to Avoid: Juices with pulp, fresh fruit (except banana and avocado), dried fruits, canned fruit cocktail and pineapple, coconut, frozen/thawed berries Vegetables ?? Foods Allowed: Well-cooked or canned vegetables, potatoes without skin, tomato sauces, vegetable juice ?? Foods to Avoid: Raw vegetables, all corn, all mushrooms, stewed tomatoes, potato skins, stir-black vegetables, sauerkraut, pickles, olives, all dried beans, peas, and legumes Cereals and Grains ?? Foods Allowed: Low- fiber dry or cooked cereals (less than 2 grams fiber per serving), white rice, pasta, macaroni, or noodles ?? Foods to Avoid: Cereals with nuts, berries, dried fruits, whole grain cereals, bran cereals, granola, brown or wild rice, whole grain pasta Breads and Crackers ?? Foods Allowed: White/refined breads and rolls, plain bagel, toast, plain crackers, floyd crackers ?? Foods to Avoid: Whole grain breads- including white whole grain; bread/ rolls with raisins, nuts or seeds, multi-grain crackers Dairy ?? Foods Allowed: Milk, cheese, yogurt, milkshakes, pudding, ice cream, cottage cheese, sherbet ;?lactose free or low lactose versions if lactose intolerant ?? Foods to Avoid: Dairy product mixed with fresh fruit (except banana), berries, nuts or seeds Desserts ?? Foods Allowed: Plain cake, pudding, custard, ice cream, sherbet, gelatin, fruit whips ?? Foods to Avoid: Any dessert that contains nuts, dried fruits, coconut, or fruits with seeds Herbs and Spices ?? Foods Allowed: All ground spices or herbs, salt ?? Foods to Avoid: Whole spices such as peppercorns, whole cloves, anise seeds, celery seeds, ryann, ian seeds, and fresh herbs Snacks/Other Foods ?? Foods Allowed: Sugar, honey, jelly, mayonnaise, mustard, soy sauce, oil, butter, margarine, marshmallows, cookies without dried fruits or nuts, snack chips and pretzels using refined flours ?? Foods to Avoid: Carbonated beverages, jams or jellies with seeds, popcorn After several weeks, slowly start to reintroduce the ?Foods to Avoid? back into your diet unless your doctor has told you otherwise. Try a small portion of one of these foods each day. If it does not bother you within 24 hours, it can be added to your diet. Continue to add new foods in this way. Some people may continue to have food sensitivities and may need to continue to avoid certain foods. If you cannot tolerate a food, avoid that food for a few weeks before you try it again. Guidelines when eating 1.? Avoid any food that you cannot tolerate or that causes gas, bloating, or stomach pain. 2.? Make time for your meals. Do not eat while you are in a hurry. Cut your food into small pieces. Chew each bite to a mashed potato consistency. Do not e at when you cannot concentrate on chewing well. 3.? Drink at least 6-8 cups of fluid per day? Fluids include: water, coffee, tea, juice, milk, popsicles, soups, gelatin, pudding, ice cream, sherbet, and yogurt. In addition, choose caffeine-free beverages more often, especially if you are having?diarrhea. 4.? A daily multivitamin may be recommended if diet is limited in amounts or variety of foods. Do not take any herbal supplements without first checking with your doctor. Stand Alone Forms: Nursing Discharge Form Referrals: Dulce Hidalgo MD [Primary Care Provider] - 10/24/22 1:40 pm Activity:: see above Equipment/Supplies:: No Equipment Needed Diet:: see above DS: Summary Time Spent with Patient providing and/or coordinating discharge services: Less than 30 minutes Status at Discharge Functional status at discharge: independent ambulation Overall status at discharge: patient is progressing back to baseline Mental Status: mental status grossly normal Speech and Movement: speech and movement normal Mood: congruent mood Affect: normal affect Exam Psych Mental Status: mental status grossly normal Speech and Movement: speech and movement normal Mood: congruent mood Affect: normal affect DS: Data Vitals/I&O Vitals and I&O: Vital Signs Temperature 36.5 C 10/11/22 07:23 Temperature Source Tympanic 10/11/22 07:23 Pulse 78 10/11/22 07:23 Pulse Rhythm Regular 10/11/22 08:00 Respiratory Rate 16 10/11/22 07:23 Respiratory Effort Normal, Non-Labored 10/11/22 08:00 Respiratory Depth Normal 10/11/22 08:00 Respiratory Pattern Normal 10/11/22 08:00 Blood Pressure 138/80 10/11/22 09:36 Blood Pressure Position Supine 10/08/22 06:26 Pulse Oximetry 97 10/11/22 07:23 Oxygen Delivery Method Room Air 10/11/22 07:23 Oxygen Flow Rate 0 10/11/22 07:23 Pain Level 0 10/11/22 04:04 Comment RN Notified 10/09/22 20:16 Intake & Output 10/10/22 10/10/22 10/11/22 11:59 23:59 11:59 Intake Total 973.333 / 2433.333 1460 / 2433.333 240 / 240 Output Total 1000 / 1300 300 / 1300 200 / 200 Balance -26.667 / 9318.553 2314 / 1133.333 40 / 40 Intake: IV 973.333 / 2073.333 1100 / 2073.333 Oral 360 / 360 240 / 240 Output: Urine 1000 / 1300 300 / 1300 200 / 200 Other: Urine Color Yellow Yellow Yellow Urine Appearance Clear Cloudy Clear Urine Odor None Comment Patient reports voiding in toilet. Yellow urine, not measured, hat is not in the toilet. Stool Size Moderate Stool Characteristics Liquid Voiding Methods Toilet Toilet Toilet Data Completed and Pending Labs on day of discharge: Labs from last 24 hours 10/11/22 06:25 Sodium 143 Potassium 4.0 Chloride 108 H Carbon Dioxide 27.3 Anion Gap 7.7 BUN 10 Creatinine 1.2 H Est GFR (CKD-EPI 2020) 46.05 Glucose 126 H Calcium 9.3 Magnesium 1.9 PFSH All Active Problems (Updated 10/08/22 @ 20:08 by Kenyatta Nance DO) DJD (degenerative joint disease), lumbar (Acute) Atherosclerosis of aorta (Acute) Spinal stenosis at L4-L5 level (Acute) Severe Compression fracture of L5 vertebra (Acute) Noted on CT scan 10/02 Compression fracture of L4 vertebra (Acute) Noted on CT scan 08/2022 Small bowel obstruction (Acute) Nausea and vomiting (Acute) Anemia (Chronic) Upper abdominal pain, unspecified (Acute) Medical History (Updated 10/08/22 @ 20:08 by Kenyatta Nance DO) Actinic keratosis Anemia Benign essential tremor BRCA2 positive Breast cancer, stage 1 Dehydration GERD (gastroesophageal reflux disease) H/O ovarian cancer H/O primary malignant neoplasm of urinary bladder H/O renal cell cancer HTN (hypertension) Incisional hernia IT band syndrome Neutropenia drug induced Obesity Osteopenia Pulmonary embolism Seborrheic keratoses Stage 3 chronic kidney disease Ventral hernia Surgical History H/O partial cystectomy H/O right nephrectomy Right, with partial uretectomy, Dr Ariel Do History of appendectomy unknown date History of bowel resection partial, unknown date S/P hysterectomy with oophorectomy S/P recurrent ventral herniorrhaphy (07/17/18) Dr Michael Carroll, [facility] S/P TKR (total knee replacement) Status post cataract extraction and insertion of intraocular lens of left eye (04/09/18) Status post cataract extraction and insertion of intraocular lens of right eye (04/23/18) Social History Smoking/Tobacco Use Status: Never Smoking risk assessment performed?: Yes Alcohol Intake: never Drug use: Never Substance use type: does not use Current gender identity: female Do you feel safe at home: Yes Do you feel safe in your relationship?: Yes Time Spent with Patient Time Spent with Patient: <45 minutes Time was spent: preparing to see the patient(eg.review tests), obtaining and/or reviewing separately otained hiistory, ordering medications,tests, procedures, referring, communicating with other health ocular care technician, indepentently interpreting results, counseling the patient and care coordination
--- NOTE | 2022-10-11 13:31 | PT.INTREAT ---
Date of service: 10/11/22 Time of Service: 09:43 PT Notes Visit Reasons: Small Bowel Obstruction Inpatient Physical Therapy Treatment Note [facility] Date: 10/11/22 PRECAUTIONS: fall, standard, activity as tolerated. SUBJECTIVE: patient reports discharging before noon today, eager to get home to see her greatdanika. OBJECTIVE: PAIN: none reported BED MOBILITY/TRANSFERS Rolling L/R: Independent Supine-sit:Independent Sit-supine: Independent Sit-stand: Independent Stand-sit: Independent Bed-Chair: Independent Chair-bed: Independent THEREX: HEP formulated and reviewed with patient. Access Code: [email or web address] URL: [email or web address] Date: 10/11/2022 Prepared by: Angela Messina Exercises - Supine Sciatic Nerve [place]? - 3 x daily - 7 x weekly - 1 sets - 10 reps - Squat with Chair and Counter Support? - 1 x daily - 7 x weekly - 3 sets - 10 reps - Standing Partial Lunge? - 1 x daily - 7 x weekly - 3 sets - 10 reps - Seated Elbow Extension with Self-Anchored Resistance? - 1 x daily - 7 x weekly - 3 sets - 10 reps - Seated Elbow Flexion with Self-Anchored Resistance? - 1 x daily - 7 x weekly - 3 sets - 10 reps - Seated Shoulder Row with Anchored Resistance? - 1 x daily - 7 x weekly - 3 sets - 10 reps - Seated Shoulder Horizontal Abduction with Resistance? - 1 x daily - 7 x weekly - 3 sets - 10 reps - Seated Shoulder Abduction with Resistance? - 1 x daily - 7 x weekly - 3 sets - 10 reps Patient return demonstration completed. Patient reports no questions, understands how to access website to see videos of exercises if needed. Patient understands exercises ONLY within pain free ROM, if anything hurts discontinue that exercise. Issued red and green theraband. ASSESSMENT: Patient tolerates all exercises well. PLAN: Discharge home with referral for outpatient PT TREATMENT CODE/TIME: 62387 TherEx 19 minutes beginning at 9:43 A.M.
--- NOTE | 2022-10-13 09:00 | INDS_ITS ---
PT Notes Visit Reasons: Small Bowel Obstruction Physical Therapy Discharge Summary Date: 10/11/2022 Dates of Service: 10/10/2022 through 10/11/2022 This is a clinical summary of care provided for the duration of dates listed above. No charge was made in the completion of this documentation. Referring Doctor: Kenyatta Nance MD PT Orders: PT CONSULT: Compression fracture L4&5. New Dg Precautions: Fall. Standard. Activity as tolerated. Patient Profile/Admitting Diagnosis:Maggi Delarosa is a 81-year-old female with medical history listed below who presented to the ED on 10/08/2022 due to vomiting, abdominal pain, right lower back pain, and right-sided chest pain.? Patient was admitted for management of small bowel obstruction, anemia, pulmonary embolism, compression fracture at L4-L5, spinal stenosis at L4-L5 atherosclerotic aorta, and DJD. PMHX: All Active Problems?(Updated 10/08/22 @ 20:08 by Kenyatta Nance DO) DJD (degenerative joint disease), lumbar (Acute) Atherosclerosis of aorta (Acute) Spinal stenosis at L4-L5 level (Acute) Severe Compression fracture of L5 vertebra (Acute) Noted on CT scan 10/02 Compression fracture of L4 vertebra (Acute) Noted on CT scan 08/2022Small bowel obstruction (Acute) Nausea and vomiting (Acute) Anemia (Chronic) Upper abdominal pain, unspecified (Acute) Medical History?(Updated 10/08/22 @ 20:08 by Kenyatta Nance DO) Actinic keratosis Anemia Benign essential tremor BRCA2 positive Breast cancer, stage 1 Dehydration GERD (gastroesophageal reflux disease) H/O ovarian cancer H/O primary malignant neoplasm of urinary bladder H/O renal cell cancer HTN (hypertension) Incisional hernia IT band syndrome Neutropenia drug inducedObesity Osteopenia Pulmonary embolism Seborrheic keratoses Stage 3 chronic kidney disease Ventral hernia Surgical History? H/O partial cystectomy H/O right nephrectomy Right, with partial uretectomy, Dr Ariel Do History of appendectomy unknown date History of bowel resection partial, unknown date S/P hysterectomy with oophorectomy S/P recurrent ventral herniorrhaphy (07/17/18) Dr Michael Carroll, [facility] S/P TKR (total knee replacement) Status post cataract extraction and insertion of intraocular lens of left eye (04/09/18) Status post cataract extraction and insertion of intraocular lens of right eye (04/23/18) Social History/Home Situation: Lives with in a private home with a flight of steps through the cellar to get into the main floor of the house.? Independent with all aspects of ADLs prior to admission. Equipment Owned/DME: FWW, SPCs Subjective: NT. See most recent PROGRAM OFFICER notes. Objective: General Observation: NT. See most recent PROGRAM OFFICER notes. Mental Status: NT. See most recent PROGRAM OFFICER notes. Pain: NT. See most recent PROGRAM OFFICER notes. Vital Signs: NT. See most recent PROGRAM OFFICER notes. ROM: Right Upper Extremity: ? Shoulder Flexion WFL. Shoulder abduction WFL. Elbow flexion WFL. Wrist flexion WFL. Functional opening and closing of hand WFL. Left Upper Extremity:? Shoulder Flexion WFL. Shoulder abduction WFL. Elbow flexion WFL. Wrist flexion WFL. Functional opening and closing of hand WFL. Right Lower Extremity: Hip flexion limited to 90 due to pain report in the low back. Hip abduction WFL. Knee flexion WFL. Ankle dorsiflexion WFL. Ankle plantarflexion WFL. Left Lower Extremity: Hip flexion WFL. Hip abduction WFL. Knee flexion WFL. Ankle dorsiflexion WFL. Ankle plantarflexion WFL. Strength: Right Upper Extremity: Shoulder flexors 3+/5. Shoulder abductors 3+/5. Elbow flexors 4-/5. Elbow extensors 4-/5. 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 Left Upper Extremity: Shoulder flexors 3+/5. Shoulder abductors 3+/5. Elbow flexors 4-/5. Elbow extensors 4-/5. 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 Right Lower Extremity: Hip flexors 3-/5. Hip abductors 3+/5. Knee flexors 4-/5. Knee extensors 4-/5. Ankle dorsiflexors 4-/5. Ankle plantarflexors 4-/5. Left Lower Extremity: Hip flexors 3+/5. Hip abductors 3+/5. Knee flexors 4-/5. Knee extensors 4-/5. Ankle dorsiflexors 4-/5. Ankle plantarflexors 4-/5. BED MOBILITY/TRANSFERS? Rolling L/R: Not observed Supine-sit: Not observed ? Sit-supine: Not observed ? Sit-stand: standby? Stand-sit: standby? Bed-Chair:standby ? Chair-bed: standby? GAIT? Assistive Device: rolling walker? Weight bearing: full Assist: standby ? Distance:? 350 feet? Deviation: reduced step length, forward posture ? Balance: Static Sitting: Normal Dynamic Sitting: Good Static Standing: Fair Dynamic Standing: Fair Assessment: L4-L5 Radiculopathic symptoms limiting mobility performance.? Distance walked limited by pain level in the low back with lateralization to B LE with R more affected than L.? Did not need a significant amount of physical assistance despite the pain.? Walking antalgic.? Will not need to walk too long at home and so may go home when medically cleared by general surgeon? and continue with outpatient PT services to manage low back pain symptoms. Patient presents with clinical signs and symptoms consistent with current/admitting diagnoses that have resulted to mobility limitations, gait instability, generalized weakness, and overall ADL decline as demonstrated by the following impairment level findings: 1.? Decreased strength to B UE/LE major muscle groups 2.? Impaired standing balance 3.? Impaired activity tolerance 4.? Limitation of joint range of motion in R hip 5.? Shortness of breath 6.? Swelling Impairments are contributing to the following functional limitations: 1.? Decline in bed mobility skills 2.? Decline in transfer skills 3.? Difficulty with ambulation without assistive device and physical assistance 4.? Increased completion time for mobility ADL performance 5.? Increased risk for falls 6.? Difficulty with managing steps alone safely Goals: Goals X1 week 1. Supine-Sit independent MET 2. Sit-Supine independent MET 3. Sit-Stand independent NOT MET 4. Stand-Sit independent with 4WW NOT MET 5. Bed-Chair independent with 4WW NOT MET 6. Chair-Bed independent with 4WW NOT MET 7. Independent gait on level surface with use of 4WW for at least 300 feet without report of pain nor dyspnea NOT MET 8. Independent stair negotiation while holding onto B rails for at least 12 steps without report of pain nor dyspnea NOT MET 9. Independent with home exercise program NOT MET 10. Good static and dynamic standing balance/tolerance NOT MET DISCHARGE RECOMMENDATIONS: []?? Home with no services [] [] ? Home with services [specify] [X] ? Home with outpatient PT.? Home when medically cleared by general surgeon.? Recommend OP PT services for back rehabilitation to minimize low back pain symptoms. [] ? SNF for continued rehabilitation [] [] ? Penit[facility]iary [facility] [] [] ? SNF versus LTC based on ability to participate and progress [] TREATMENT CODE/TIME: MARIE Thank you for the opportunity to participate in the care of this patient. Keiry Miles PT, DPT, CLT [facility] [place], [place]
== END 2022-10-11 15:02 | disposition home or self-care (01) | DRG 389 ==
LOC: ER 12:00 → MS 12:29
PROVIDERS: Physician Assistant; Admitting Provider Surgery; Emergency Provider Emergency Medicine; PCP Family Medicine; Visit Provider Surgery
DX: K56.609 Unspecified intestinal obstruction, unspecified as to partial versus complete obstruction (principal); M48.56XA Collapsed vertebra, not elsewhere classified, lumbar region, initial encounter for fracture; Z68.42 Body mass index [BMI] 45.0-49.9, adult; E66.9 Obesity, unspecified; I10 Essential (primary) hypertension; E78.5 Hyperlipidemia, unspecified; Z86.711 Personal history of pulmonary embolism; Z86.718 Personal history of other venous thrombosis and embolism; Z79.01 Long term (current) use of anticoagulants; Z85.3 Personal history of malignant neoplasm of breast; Z85.51 Personal history of malignant neoplasm of bladder; Z85.528 Personal history of other malignant neoplasm of kidney; Z85.43 Personal history of malignant neoplasm of ovary; D64.9 Anemia, unspecified; K21.9 Gastro-esophageal reflux disease without esophagitis; M85.80 Other specified disorders of bone density and structure, unspecified site; I70.0 Atherosclerosis of aorta; Z90.5 Acquired absence of kidney; M47.816 Spondylosis without myelopathy or radiculopathy, lumbar region; Z92.3 Personal history of irradiation; M54.31 Sciatica, right side; Z15.01 Genetic susceptibility to malignant neoplasm of breast; I12.9 Hypertensive chronic kidney disease with stage 1 through stage 4 chronic kidney disease, or unspecified chronic kidney disease
CPT/HCPCS: 36415; 71275; 74177; 80048; 80053; 83690; 85027; 93005; 96361; 96374; 96375; 96376; 97110; 97112; 97116; 97162; 99222; 99232; 99238; 99285; J1650; 71045; 74019; 81003; 81015; 83735; 84484; 85025; 93010; J0131; J1170; J2405; J3490; Q9967

== ENCOUNTER 2022-11-14 17:28 | Outpatient (REF) | payer MEDICARE, OTHER, SELFPAY ==
[2022-11-14 16:45] LABS: Anion Gap 1.1 mmol/L (3-11); BUN 24 mg/dL (7-18); CO2 31.9 mmol/L (21.0-32.0); CREATININE 1.3 mg/dL (0.55-1.02); Calcium 9.2 mg/dL (8.5-10.1); Chloride 103 mmol/L (98-107); Estimated GFR 41.57 (mL/min/1.73m2); Glucose 108 mg/dL (74-106); NT-proBNP 968 pg/mL (<300); Sodium 136 mmol/L (136-145)
== END 2022-11-14 17:29 | disposition home or self-care (01) ==
LOC: NCHCN 17:28
PROVIDERS: PCP Family Medicine; Visit Provider Family Medicine
DX: R60.0 Localized edema (principal)
CPT/HCPCS: 80048; 83880

== ENCOUNTER 2022-12-09 00:12 | Outpatient (CLI) | payer MEDICARE, OTHER, SELFPAY ==
--- NOTE | 2022-12-09 14:30 | DI.MRI_ITS ---
Exam(s) MR LUMBAR SPINE WO EXAM: MR LUMBAR SPINE WO CLINICAL HISTORY: RT SCIATICA, M54.31; SIGNIFICANT RT-SIDED PAIN AND INTERMITTENT LEG WEAKNES. TECHNIQUE: Multiplanar multisequence MRI of the Lumbar spine was performed. COMPARISON: CT CT LUMBAR SPINE RECONS from 10/08/2022 FINDINGS: Bones: The last intervertebral disc space is designated the L5/S1 level for the numbering purpose of this examination. The marrow signal appears the mainly fatty replaced. This is stable moderate compression fracture of L5 with no change in mild retropulsion of the superio r endplate. Around further worsening of the L 5 compression fracture greatest centrally due to disc invagination, now greater than 50 percent. Minimal retropulsion of the superior endplate. Cord: The conus tip ends at the T12 level. It is of normal size and signal intensity. T12-L1: No disc herniations or bulges are present. No central spinal canal or neural foraminal stenos is. L1-2: No disc herniations or bulges are present. No central spinal canal or neural foraminal stenosis . L2-3: No disc herniations or bulges are present. No central spinal canal or neural foraminal stenosis . L3-4: Mild retropulsion of the superior endplate. Mild disc bulging. Facet degenerative changes and ligamentous hypertrophy combining to produce [id number] central canal stenosis and moderate to severe neural foraminal narrowing. L4-5: Prominent mild retropulsion of the superior endplate of L5. Mild disc bulging. Severe facet d egenerative changes and ligamentous hypertrophy causing severe central canal stenosis as well as jericho re bilateral neural foraminal narrowing. L5-S1: Moderate loss of disc height. Small endplate osteophytes and mild concentric disc bulging. P rominent facet degenerative changes. Mild to moderate central canal stenosisand severe bilateral ricky ral foraminal narrowing. The visualized SI joints and sacrum are well maintained. Soft tissues: Status post right nephrectomy. The paraspinal soft tissues are unremarkable. IMPRESSION: Stable L4 compression fracture. A further worsening of L5 compression fracture. Severe central canal stenosis and severe bilateral neural foraminal narrowing at L4-5. Moderate to moderate central canal stenosis and severe bilateral neural foraminal narrowing at L5-S1. DATA REPOSITORY:
== END 2022-12-09 00:32 ==
LOC: DI 00:12
PROVIDERS: PCP Family Medicine; Visit Provider Family Medicine
DX: M99.53 Intervertebral disc stenosis of neural canal of lumbar region (principal); M54.31 Sciatica, right side; Z90.5 Acquired absence of kidney; S32.040A Wedge compression fracture of fourth lumbar vertebra, initial encounter for closed fracture; X58.XXXA Exposure to other specified factors, initial encounter
CPT/HCPCS: 72148

== ENCOUNTER 2022-12-17 18:08 | Emergency (ER) | payer MEDICARE, OTHER, SELFPAY ==
[2022-12-17] VITALS (34 sets, daily range): BP systolic 161–205; BP diastolic 47–76; PULSE 55–71; RESP 9–20; TEMP 36.2; O2SAT 93–100
[2022-12-17 18:44] LABS: Abs Immature Grans 0.03 10^3/uL (0.0-0.06); Absolute Basophil Count 0.02 10^3/uL (0.0-0.2); Absolute Eosinophil Count 0.12 10^3/uL (0.0-0.7); Absolute Lymphocyte Count 1.34 10^3/uL (1.2-3.4); Absolute Neutrophil Count 5.65 10^3/uL (1.2-6.7); Basophils % 0.3; Eosinophils % 1.5; HCT 33.6 % (36.0-46.0); HGB 10.6 g/dL (11.2-15.7); Immature Grans % 0.4; MCH 27.5 pg (27.0-33.0); MCHC 31.5 % (32.0-36.0); MCV 87 fL (80-95); MPV 10.7 fL (8.0-11.0); Monocytes % 8.9; Neutrophils % 71.9; Platelet Count 239 10^3/uL (130-400); RBC 3.85 10^6/uL (3.93-5.22); RDW 15.6 % (11.7-14.6); RDW-SD 50.4 fL; WBC 7.86 10^3/uL (4.4-10.8)
[2022-12-17 18:56] LABS: Lipase 19 U/L (16-77)
[2022-12-17 18:58] LABS: PTT Activated 26.7 sec (21.5-31.9); Prothrombin Time 10.1 sec (9.3-11.0)
[2022-12-17 19:01] LABS: ALT 16 U/L (14-59); AST 19 U/L (15-37); Albumin 3.4 g/dL (3.4-5.0); Alkaline Phosphatase 105 U/L (46-116); Anion Gap 9.3 mmol/L (3-11); BUN 32 mg/dL (7-18); Bilirubin, Total 0.5 mg/dL (0.2-1.0); CO2 28.7 mmol/L (21.0-32.0); CREATININE 1.4 mg/dL (0.55-1.02); Calcium 9.3 mg/dL (8.5-10.1); Chloride 105 mmol/L (98-107); Estimated GFR 38.03 (mL/min/1.73m2); Glucose 136 mg/dL (74-106); Potassium 3.9 mmol/L (3.5-5.1); Sodium 143 mmol/L (136-145); Total Protein 6.8 g/dL (6.4-8.2)
--- NOTE | 2022-12-17 20:29 | W.ED.GENAD ---
Discharge Plan Disposition Patient Disposition: Home Condition: Stable Discharge Details Clinical Impression: Gastroenteritis and colitis, viral Primary Care Provider: Dulce Hidalgo ED Provider: Torie Frances Home Meds and New Rx's Prescriptions: Continued cetirizine [Zyrtec] 10 mg tablet 10 mg PO DAILY PRN polyethylene glycol 3350 [Miralax] 17 gram/dose powder 17 gm PO PRN PRN omeprazole 20 mg capsule,delayed release(DR/EC) 20 mg PO DAILY acetaminophen [Tylenol Extra Strength] 500 mg tablet 500 mg PO PRN alum-mag hydroxide-simeth 200-200-20 mg/5 mL suspension 10 ml PO PRN PRN Patient Comments: for abdominal cramping simvastatin 10 MG tablet 10 mg PO HS atenolol 50 MG tablet 50 mg PO DAILY calcium carb and citrate-vitD3 [Citracal-D3 Slow Release] 1 EACH tablet extended release 1 tab PO DAILY ondansetron 4 mg tablet,disintegrating 4 mg PO Q6H PRN (Reason: nausea and vomiting) Qty: 14 0RF hydrochlorothiazide 25 MG tablet 25 mg PO DAILY Patient Comments: does not take cyanocobalamin (vitamin B-12) [Vitamin B-12] 1,000 mcg Tablet 1,000 mcg PO DAILY magnesium oxide 400 mg Capsule 400 mg PO DAILY Xarelto 10 mg Tablet 10 mg PO DAILY furosemide 20 mg tablet 40 mg PO DAILY Qty: 0 0RF Patient Comments: Take 1 tablet by mouth once a day meclizine 12.5 mg tablet 12.5 mg PO TID PRN (Reason: dizziness) Qty: 7 0RF Discharge Instructions Instructions: Gastroenteritis (ED) Additional Instructions: No evidence of any change to the compression fractures. CT does show some increased gas and inflammation of the bowel wall. Please take the Zofran prior to taking the Jardiance as discussed. If you have recurrence of symptoms please stop the Jardiance and call your PCP first thing Monday morning. Follow up with primary care provider in 3-5 days. Return to ED sooner if any worsening or concerns. Increase oral fluids. Referrals: Dulce Hidalgo MD [Primary Care Provider] - 2 days Medical Decision Making 82-year-old female with a past medical history of breast cancer stage I, GERD, ovarian cancer, hypertension, obesity, PE, stage III chronic kidney disease, PE, compression fracture of L5 L4 vertebrae degenerative lumbar disease who was recently changed to Jardiance 2 days ago presents to the ER with chief complaint of nausea vomiting and lower abdominal pain. She also reports that she has had worsening sharp shooting pain in her lower back. She denies any saddle anesthesia. She does have a history of constipation and bowel obstructions. Other past medical history includes neoplasm of urinary bladder. She is being followed by her PCP for the back pain and compression fractures and does have pain management referral and data warehousing specialist referrals. She denies any chest pain shortness of breath or diaphoresis. Labs are largely at baseline. No leukocytosis kidney functions are at baseline. proBNP is 660 which is actually in improved for patient. Lipase within normal limits. CT results are noted below. Findings consistent with gastroenteritis and colitis. No evidence of obstruction per V rad report. Discussed results with patient and family verbalized understanding. Instructed patient to continue with the Jardiance and taking the Zofran as needed for nausea vomiting. If recurrence of symptoms to contact her PCP on Monday morning. All of the questions were answered to the best my ability. This text was generated using [employer] dictation system, please disregard any oddities of phrase or misspellings. Medical Records Medical records reviewed: Yes I reviewed the patient's medical records. Imaging Data Radiologic Study: Imaging: CT Scan Radiologist's impression: CT CHEST/ABD/PEL W 09/01/2022 9:09 AM FINDINGS: Lungs: Moderate to severe centrilobular emphysematous changes are present. Pulmonary fibrosis with mild honeycombing present within the lung bases bilaterally. Heart: Low attenuation within the cardiac ventricular chambers may represent anemia. There is calcification of the cardiac mitral valve annulus. Coronary arteries: There is mild atherosclerotic calcification of the coronary arteries. Diaphragm: A small hiatal hernia is present. Liver: There are no focal liver lesions present. There is no evidence of intrahepatic or extrahepatic biliary ductal dilation. Gallbladder and bile ducts: The gallbladder is normal. There is no cholelitiasis, wall thickening or pericholecystic fluid to suggest cholecystitis. Pancreas: There is mild pancreatic atrophy and fatty replacement. Spleen: The spleen is normal. Adrenal glands: The right adrenal gland is absent. The left adrenal gland is normal. Kidneys and ureters: The right kidney is absent. The left kidney is normal. Stomach and bowel: The gastric wall is thickened consider gastritis. There are diffuse fluid filled loops of small bowel and colon with scattered air fluid levels. The bowel loops are moderately distended. There is mild bowel wall thickening and diffuse soft tissue stranding within the mesentery consistent with inflammatory process. No evidence of obstruction. Findings most consistent with diffuse gastroenterocolitis. Appendix: There is no evidence of appendicitis. The appendix is not visualized. Intraperitoneal space: There is no free intraperitoneal air. There is no evidence of free intraperitoneal or pelvic fluid. Vasculature: The arterial peripheral vasculature demonstrates diffuse mild atherosclerotic calcification. The inferior venacava appears normal. Lymph nodes: There is no evidence of lymphadenopathy. Urinary bladder: The bladder is normal. Reproductive: There has been a hysterectomy. No adnexal cysts or masses are identified. Bones/joints: Moderate to severe degenerative changes with compression fractures of L4 and L5 unchanged compared to the prior study of 09/01/2022. The thoracolumbar spine demonstrates moderate degenerative changes at multiple levels.The aorta demonstrates moderate atherosclerotic calcification. Soft tissues: The extra-abdominal soft tissues are normal. IMPRESSION: 1. The gastric wall is thickened consider gastritis. There are diffuse fluid filled loops of small bowel and colon with scattered air fluid levels. The bowel loops are moderately distended. There is mild bowel wall thickening and diffuse soft tissue stranding within the mesentery consistent with inflammatory process. No evidence of obstruction. Findings most consistent with diffuse gastroenterocolitis. Lab Data Lab results reviewed: Yes I reviewed the patient's lab results. Labs: Laboratory Tests Range/Units 12/17/22 12/17/22 12/17/22 18:30 18:30 18:30 WBC (4.4-10.8) 10^3/uL 7.86 RBC (3.93-5.22) 10^6/uL 3.85 L Hgb (11.2-15.7) g/dL 10.6 L Hct (36.0-46.0) % 33.6 L MCV (80-95) fL 87 MCH (27.0-33.0) pg 27.5 MCHC (32.0-36.0) % 31.5 L RDW (11.7-14.6) % 15.6 H Plt Count (130-400) 10^3/uL 239 MPV (8.0-11.0) fL 10.7 Immature Gran % 0.4 Neutrophils % 71.9 Lymphocytes % 17.0 Monocytes % 8.9 Eosinophils % 1.5 Basophils % 0.3 Nucleated RBC % (0.0-0.3) % 0.0 Absolute Neutrophils (1.2-6.7) 10^3/uL 5.65 Absolute Lymphocytes (1.2-3.4) 10^3/uL 1.34 Absolute Monocytes (0.1-0.8) 10^3/uL 0.70 Absolute Eosinophils (0.0-0.7) 10^3/uL 0.12 Absolute Basophils (0.0-0.2) 10^3/uL 0.02 PT (9.3-11.0) sec INR (0.9-1.1) APTT (21.5-31.9) sec Sodium (136-145) mmol/L 143 Potassium (3.5-5.1) mmol/L 3.9 Chloride (98-107) mmol/L 105 Carbon Dioxide (21.0-32.0) mmol/L 28.7 Anion Gap (3-11) mmol/L 9.3 BUN (7-18) mg/dL 32 H Creatinine (0.55-1.02) mg/dL 1.4 H Est GFR (CKD-EPI 2020) (mL/min/1.73m2) 38.03 Glucose (74-106) mg/dL 136 H Calcium (8.5-10.1) mg/dL 9.3 Total Bilirubin (0.2-1.0) mg/dL 0.5 AST (15-37) U/L 19 ALT (14-59) U/L 16 Alkaline Phosphatase (46-116) U/L 105 NT-Pro-B Natriuret Pep (<300) pg/mL Total Protein (6.4-8.2) g/dL 6.8 Albumin (3.4-5.0) g/dL 3.4 Lipase (16-77) U/L 19 Range/Units 12/17/22 12/17/22 18:30 18:30 WBC (4.4-10.8) 10^3/uL RBC (3.93-5.22) 10^6/uL Hgb (11.2-15.7) g/dL Hct (36.0-46.0) % MCV (80-95) fL MCH (27.0-33.0) pg MCHC (32.0-36.0) % RDW (11.7-14.6) % Plt Count (130-400) 10^3/uL MPV (8.0-11.0) fL Immature Gran % Neutrophils % Lymphocytes % Monocytes % Eosinophils % Basophils % Nucleated RBC % (0.0-0.3) % Absolute Neutrophils (1.2-6.7) 10^3/uL Absolute Lymphocytes (1.2-3.4) 10^3/uL Absolute Monocytes (0.1-0.8) 10^3/uL Absolute Eosinophils (0.0-0.7) 10^3/uL Absolute Basophils (0.0-0.2) 10^3/uL PT (9.3-11.0) sec 10.1 INR (0.9-1.1) 1.0 APTT (21.5-31.9) sec 26.7 Sodium (136-145) mmol/L Potassium (3.5-5.1) mmol/L Chloride (98-107) mmol/L Carbon Dioxide (21.0-32.0) mmol/L Anion Gap (3-11) mmol/L BUN (7-18) mg/dL Creatinine (0.55-1.02) mg/dL Est GFR (CKD-EPI 2020) (mL/min/1.73m2) Glucose (74-106) mg/dL Calcium (8.5-10.1) mg/dL Total Bilirubin (0.2-1.0) mg/dL AST (15-37) U/L ALT (14-59) U/L Alkaline Phosphatase (46-116) U/L NT-Pro-B Natriuret Pep (<300) pg/mL 660 H Total Protein (6.4-8.2) g/dL Albumin (3.4-5.0) g/dL Lipase (16-77) U/L HPI General Mode of arrival: EMS. Date/Time Provider Initiated Documentation: 12/17/22 18:25. Limitations to Documentation: no limitations. Information obtained by: patient, family, RN notes reviewed and old records reviewed. HPI Narrative: 82-year-old female with a past medical history of breast cancer stage I, GERD, ovarian cancer, hypertension, obesity, PE, stage III chronic kidney disease, PE, compression fracture of L5 L4 vertebrae degenerative lumbar disease who was recently changed to Jardiance 2 days ago presents to the ER with chief complaint of nausea vomiting and lower abdominal pain. She also reports that she has had worsening sharp shooting pain in her lower back. She denies any saddle anesthesia. She does have a history of constipation and bowel obstructions. Other past medical history includes neoplasm of urinary bladder. She is being followed by her PCP for the back pain and compression fractures and does have pain management referral and data warehousing specialist referrals. She denies any chest pain shortness of breath or diaphoresis. Related Data Home Medications Medication Instructions Recorded Confirmed atenolol 50 mg tablet 50 mg PO DAILY 11/30/13 12/17/22 calcium carb,cit ER 600 mg-vit D3 1 tab PO DAILY 11/30/13 12/17/22 12.5 mcg (500 unit) tablet,ext.rel (Citracal-D3 Slow Release) simvastatin 10 mg tablet 10 mg PO HS 11/30/13 12/17/22 hydrochlorothiazide 25 mg tablet 25 mg PO DAILY 12/21/17 12/17/22 cyanocobalamin (vitamin B-12) 1,000 mcg PO DAILY 04/04/18 12/17/22 1,000 mcg tablet (Vitamin B-12) magnesium oxide 400 mg PO DAILY 04/04/18 12/17/22 cetirizine 10 mg tablet (Zyrtec) 10 mg PO DAILY PRN 07/27/18 12/17/22 rivaroxaban 10 mg tablet (Xarelto) 10 mg PO DAILY 08/26/18 12/17/22 acetaminophen 500 mg tablet 500 mg PO PRN 09/21/18 12/17/22 (Tylenol Extra Strength) aluminum-mag hydroxide-simethicone 10 ml PO PRN PRN 09/21/18 12/17/22 200 mg-200 mg-20 mg/5 mL oral susp omeprazole 20 mg capsule,delayed 20 mg PO DAILY 09/21/18 12/17/22 release polyethylene glycol 3350 17 17 gm PO PRN PRN 09/21/18 12/17/22 gram/dose oral powder (Miralax) ondansetron 4 mg disintegrating 4 mg PO Q6H PRN nausea and 07/11/19 12/17/22 tablet vomiting #14 tabs furosemide 20 mg tablet 40 mg PO DAILY #0 tabs 08/09/22 12/17/22 meclizine 12.5 mg tablet 12.5 mg PO TID PRN dizziness #7 08/09/22 12/17/22 tabs Previous Rx's Medication Instructions Recorded ondansetron 4 mg disintegrating 4 mg PO Q6H PRN nausea and 07/11/19 tablet vomiting #14 tabs furosemide 20 mg tablet 40 mg PO DAILY #0 tabs 08/09/22 meclizine 12.5 mg tablet 12.5 mg PO TID PRN dizziness #7 08/09/22 tabs Allergies Allergy/AdvReac Type Severity Reaction Status Date / Time latex Allergy Mild Verified 10/08/22 06:40 Sulfa (Sulfonamide AdvReac Severe liver Verified 10/08/22 06:40 Antibiotics) damage ciprofloxacin [From Cipro] AdvReac Intermediate unknown Verified 10/08/22 06:40 glucosamine AdvReac Intermediate Nausea Verified 10/08/22 06:40 glue on bandaids Allergy Mild rash Uncoded 10/08/22 06:40 Epideral Dressing AdvReac Severe Blistering Uncoded 10/08/22 06:40 General Stated Complaint: Abd Prob SADIE: 3 Review of Systems All systems reviewed & are unremarkable except as noted in HPI and below Gastrointestinal Gastrointestinal: Reports abdominal pain, Reports cramping, Reports nausea and Reports vomiting Musculoskeletal Musculoskeletal: Reports as per HPI, Reports back pain and Reports radiating pain into limb (Bilateral) PFSH All Active Problems (Updated 12/17/22 @ 22:49 by Torie Frances NP) Gastroenteritis and colitis, viral (Acute) DJD (degenerative joint disease), lumbar (Acute) Atherosclerosis of aorta (Acute) Spinal stenosis at L4-L5 level (Acute) Severe Compression fracture of L5 vertebra (Acute) Noted on CT scan 10/02 Compression fracture of L4 vertebra (Acute) Noted on CT scan 08/2022 Nausea and vomiting (Acute) Upper abdominal pain, unspecified (Acute) Medical History (Updated 12/17/22 @ 22:49 by Torie Frances NP) Actinic keratosis Anemia Benign essential tremor BRCA2 positive Breast cancer, stage 1 Dehydration GERD (gastroesophageal reflux disease) H/O ovarian cancer H/O primary malignant neoplasm of urinary bladder H/O renal cell cancer HTN (hypertension) Incisional hernia IT band syndrome Neutropenia drug induced Obesity Osteopenia Pulmonary embolism Seborrheic keratoses Stage 3 chronic kidney disease Ventral hernia Surgical History H/O partial cystectomy H/O right nephrectomy Right, with partial uretectomy, Dr Ariel Do History of appendectomy unknown date History of bowel resection partial, unknown date S/P hysterectomy with oophorectomy S/P recurrent ventral herniorrhaphy (07/17/18) Dr Michael Carroll, [facility] S/P TKR (total knee replacement) Status post cataract extraction and insertion of intraocular lens of left eye (04/09/18) Status post cataract extraction and insertion of intraocular lens of right eye (04/23/18) Social History Smoking/Tobacco Use Status: Never Smoking risk assessment performed?: Yes Alcohol Intake: never Drug use: Never Substance use type: does not use Current gender identity: female Do you feel safe at home: Yes Do you feel safe in your relationship?: Yes Exam Narrative Exam Narrative: Constitutional: Alert and oriented x3. Appears stated age. Obese body habitus. Head: Normocephalic, no trauma. Eyes: Pupils PERRL, Red reflex noted, EOM's intact. Eyelids symmetrical without lesions, discharge, or swelling. ENT: Bilateral TM's WNL, External ear normal to inspection, no mastoid TTP, swelling, or erythema, Nasal turbinates WNL, no nasal discharge. Normal dentition, Posterior pharynx WNL, no exudate. Chest: RRR, Normal S1, S2, distal pulses intact. Resp: Lungs clear to auscultation bilaterally, no wheezes, rales, or rhonchi. Abdomen: Soft, non-distended, Tenderness to all 4 quadrants, hyperactive bowel sounds. She reports sharp pain is worst mid epigastrium. Musculoskeletal: Unable to assess gait, bilateral lower edema noted appears chronic. Skin: No suspicious rashes or lesions. Capillary refill less than 2 sec. Neurologic: Cranial nerves II-XII intact. Alert and oriented x 3. Motor: No deficits noted. Sensory: Intact bilaterally all 4 extremities. Reflexes: DTR's intact bilaterally.. Hematologic/Lymphatic: No ecchymosis, no lymphadenopathy. Course Vital Signs Vital signs: Vital Signs Temperature 36.2 C L 12/17/22 17:46 Pulse 64 12/17/22 17:46 Respiratory Rate 20 12/17/22 17:46 Blood Pressure 176/64 H 12/17/22 17:46 Pulse Oximetry 94 12/17/22 17:46 Temperature 36.2 C L 12/17/22 17:46 Temperature Source Oral 12/17/22 17:46 Pulse 63 12/17/22 20:01 Pulse 68 12/17/22 20:20 Respiratory Rate 14 12/17/22 20:20 Respiratory Effort Normal, Non-Labored 12/17/22 17:55 Blood Pressure 194/55 H 12/17/22 20:01 Blood Pressure Mean 92 12/17/22 20:01 Blood Pressure Position Sitting 12/17/22 17:46 Pulse Oximetry 97 12/17/22 20:20 Oxygen Delivery Method Room Air 12/17/22 17:46 Oxygen Flow Rate 0 12/17/22 17:46 Lab/Test Results Lab/Test Results: Laboratory Tests Range/Units 12/17/22 12/17/22 12/17/22 18:30 18:30 18:30 WBC (4.4-10.8) 10^3/uL 7.86 RBC (3.93-5.22) 10^6/uL 3.85 L Hgb (11.2-15.7) g/dL 10.6 L Hct (36.0-46.0) % 33.6 L MCV (80-95) fL 87 MCH (27.0-33.0) pg 27.5 MCHC (32.0-36.0) % 31.5 L RDW (11.7-14.6) % 15.6 H Plt Count (130-400) 10^3/uL 239 MPV (8.0-11.0) fL 10.7 Immature Gran % 0.4 Neutrophils % 71.9 Lymphocytes % 17.0 Monocytes % 8.9 Eosinophils % 1.5 Basophils % 0.3 Nucleated RBC % (0.0-0.3) % 0.0 Absolute Neutrophils (1.2-6.7) 10^3/uL 5.65 Absolute Lymphocytes (1.2-3.4) 10^3/uL 1.34 Absolute Monocytes (0.1-0.8) 10^3/uL 0.70 Absolute Eosinophils (0.0-0.7) 10^3/uL 0.12 Absolute Basophils (0.0-0.2) 10^3/uL 0.02 PT (9.3-11.0) sec INR (0.9-1.1) APTT (21.5-31.9) sec Sodium (136-145) mmol/L 143 Potassium (3.5-5.1) mmol/L 3.9 Chloride (98-107) mmol/L 105 Carbon Dioxide (21.0-32.0) mmol/L 28.7 Anion Gap (3-11) mmol/L 9.3 BUN (7-18) mg/dL 32 H Creatinine (0.55-1.02) mg/dL 1.4 H Est GFR (CKD-EPI 2020) (mL/min/1.73m2) 38.03 Glucose (74-106) mg/dL 136 H Calcium (8.5-10.1) mg/dL 9.3 Total Bilirubin (0.2-1.0) mg/dL 0.5 AST (15-37) U/L 19 ALT (14-59) U/L 16 Alkaline Phosphatase (46-116) U/L 105 Total Protein (6.4-8.2) g/dL 6.8 Albumin (3.4-5.0) g/dL 3.4 Lipase (16-77) U/L 19 Range/Units 12/17/22 18:30 WBC (4.4-10.8) 10^3/uL RBC (3.93-5.22) 10^6/uL Hgb (11.2-15.7) g/dL Hct (36.0-46.0) % MCV (80-95) fL MCH (27.0-33.0) pg MCHC (32.0-36.0) % RDW (11.7-14.6) % Plt Count (130-400) 10^3/uL MPV (8.0-11.0) fL Immature Gran % Neutrophils % Lymphocytes % Monocytes % Eosinophils % Basophils % Nucleated RBC % (0.0-0.3) % Absolute Neutrophils (1.2-6.7) 10^3/uL Absolute Lymphocytes (1.2-3.4) 10^3/uL Absolute Monocytes (0.1-0.8) 10^3/uL Absolute Eosinophils (0.0-0.7) 10^3/uL Absolute Basophils (0.0-0.2) 10^3/uL PT (9.3-11.0) sec 10.1 INR (0.9-1.1) 1.0 APTT (21.5-31.9) sec 26.7 Sodium (136-145) mmol/L Potassium (3.5-5.1) mmol/L Chloride (98-107) mmol/L Carbon Dioxide (21.0-32.0) mmol/L Anion Gap (3-11) mmol/L BUN (7-18) mg/dL Creatinine (0.55-1.02) mg/dL Est GFR (CKD-EPI 2020) (mL/min/1.73m2) Glucose (74-106) mg/dL Calcium (8.5-10.1) mg/dL Total Bilirubin (0.2-1.0) mg/dL AST (15-37) U/L ALT (14-59) U/L Alkaline Phosphatase (46-116) U/L Total Protein (6.4-8.2) g/dL Albumin (3.4-5.0) g/dL Lipase (16-77) U/L
--- NOTE | 2022-12-17 20:30 | RT.EKG_ITS ---
APPROVED REPORT Exam: Resting ECG Reason for Exam: Nausea Vomiting, CHF Patient Location: E HR:65 bpm ECG Measurements Heart Rate 65 AXIS WV 172 P 79 QRSd 88 QRS 41 QT 411 T 57 QTc 429 Conclusion Sinus rhythm...normal P axis, V-rate 60- 99 Left ventricular hypertrophy...multiple voltage criteria
--- NOTE | 2022-12-17 20:30 | DI.CT_ITS ---
Exam(s) CT ABDOMEN PELVIS WO EXAM: CT ABDOMEN PELVIS WO CLINICAL HISTORY: N/V Abd Pain. TECHNIQUE: Imaging Protocol: Axial computed tomography images with coronal and sagittal reformatted images were created and reviewed. Oral: no COMPARISON: CT CT LUMBAR SPINE RECONS from 10/08/[address] CHEST PE ABD PELVIS W from 10/08/2022 FINDINGS: ABDOMEN: Lung Bases: The heart is enlarged. Coronary artery calcifications. Mitral annular calcification. T iny hiatal hernia. Lung bases show fibrotic changes. Liver: Normal density. No measurable mass. Gallbladder and biliary tract: No radiodense calculus or dilation. Pancreas: Somewhat atrophic. No abnormal calcifications or inflammatory process. Spleen: Normal. Kidneys: Left kidney normal size, contour and axis. No radiodense stones or obstructive uropathy. No masses seen. Right kidney absent. Adrenal glands: No masses seen. Lymph nodes: Within normal limits. Abdominal Aorta: Abdominal portion non-dilated. Atherosclerotic changes. PELVIS: Bladder: Symmetric distention, no gross wall thickening. Bowel: Dilated loops proximal to mid small bowel. Distal small bowel loops are relatively decompress ed. Similar appearance to prior exam, with apparent transition point in low pelvis. surrounding mes enteric stranding. No pneumatosis. Colon unremarkable. Appendix not seen. Peritoneal cavity: No ascites or focal collection. Reproductive organs: Status post hysterectomy. Bones: Stable compression fractures of L4 and L5. Degenerative changes greater at the lower lumbar l evels. IMPRESSION: Mildly dilated proximal and mid small bowel likely representing partial small bowel obstruction, sampson lar to prior. RADIATION DOSE DELIVERED: 1,272.68mGy.cm Total DLP DATA REPOSITORY: All CT scans at this facility are submitted to the National Radiology Data Registry (NRDR) Dose Index Registry (DIR) with the [employer] (ACR). RADIATION OPTIMIZATION: All CT scans at this facility use at least one of these dose optimization te chniques: automated exposure control; mA and/or kV adjustment per patient size (includes targeted exa ms where dose is matched to clinical indication); or iterative reconstruction.
[2022-12-17 20:59] LABS: NT-proBNP 660 pg/mL (<300)
[2022-12-17] MEDS: MORPHine 10 MG/ML VIAL 2 MG IVP (21:01)
--- NOTE | 2022-12-17 21:48 | NUR.NOTE ---
Nursing Note: Purwick placed for pt ease of voiding. Pt tolerates intervention well and pt stated that device works well. Pt thanked this RN for care.
--- NOTE | 2022-12-17 22:10 | DI.VRAD_ITS ---
PROCEDURE INFORMATION: Exam: CT Abdomen And Pelvis Without Contrast Exam date and time: 12/17/2022 9:26 PM Age: 82 years old Clinical indication: Nausea and vomiting and other: Abd pain; Patient HX: N/v abd pain TECHNIQUE: Imaging protocol: Computed tomography of the abdomen and pelvis without contrast. COMPARISON: CT CHEST/ABD/PEL W 09/01/2022 9:09 AM FINDINGS: Lungs: Moderate to severe centrilobular emphysematous changes are present. Pulmonary fibrosis with mild honeycombing present within the lung bases bilaterally. Heart: Low attenuation within the cardiac ventricular chambers may represent anemia. There is calcification of the cardiac mitral valve annulus. Coronary arteries: There is mild atherosclerotic calcification of the coronary arteries. Diaphragm: A small hiatal hernia is present. Liver: There are no focal liver lesions present. There is no evidence of intrahepatic or extrahepatic biliary ductal dilation. Gallbladder and bile ducts: The gallbladder is normal. There is no cholelitiasis, wall thickening or pericholecystic fluid to suggest cholecystitis. Pancreas: There is mild pancreatic atrophy and fatty replacement. Spleen: The spleen is normal. Adrenal glands: The right adrenal gland is absent. The left adrenal gland is normal. Kidneys and ureters: The right kidney is absent. The left kidney is normal. Stomach and bowel: The gastric wall is thickened consider gastritis. There are diffuse fluid filled loops of small bowel and colon with scattered air fluid levels. The bowel loops are moderately distended. There is mild bowel wall thickening and diffuse soft tissue stranding within the mesentery consistent with inflammatory process. No evidence of obstruction. Findings most consistent with diffuse gastroenterocolitis. Appendix: There is no evidence of appendicitis. The appendix is not visualized. Intraperitoneal space: There is no free intraperitoneal air. There is no evidence of free intraperitoneal or pelvic fluid. Vasculature: The arterial peripheral vasculature demonstrates diffuse mild atherosclerotic calcification. The inferior venacava appears normal. Lymph nodes: There is no evidence of lymphadenopathy. Urinary bladder: The bladder is normal. Reproductive: There has been a hysterectomy. No adnexal cysts or masses are identified. Bones/joints: Moderate to severe degenerative changes with compression fractures of L4 and L5 unchanged compared to the prior study of 09/01/2022. The thoracolumbar spine demonstrates moderate degenerative changes at multiple levels.The aorta demonstrates moderate atherosclerotic calcification. Soft tissues: The extra-abdominal soft tissues are normal. IMPRESSION: 1. The gastric wall is thickened consider gastritis. There are diffuse fluid filled loops of small bowel and colon with scattered air fluid levels. The bowel loops are moderately distended. There is mild bowel wall thickening and diffuse soft tissue stranding within the mesentery consistent with inflammatory process. No evidence of obstruction. Findings most consistent with diffuse gastroenterocolitis. Dictated and Authenticated by: Christian Soni MD. Ordering:NAZIA Vogt MD
== END 2022-12-17 23:13 | disposition home or self-care (01) ==
PROVIDERS: Emergency Provider Registered Nurse Emergency; PCP Family Medicine
DX: R10.9 Unspecified abdominal pain (principal); K52.9 Noninfective gastroenteritis and colitis, unspecified; A08.4 Viral intestinal infection, unspecified; R11.2 Nausea with vomiting, unspecified
CPT/HCPCS: 80053; 83690; 93005; 96374; 99284; 74176; 81003; 83880; 85025; 85610; 85730; 93010; 99283; J2270

== ENCOUNTER 2023-02-07 18:40 | Outpatient (REF) | payer MEDICARE, OTHER, SELFPAY ==
[2023-02-07 18:36] LABS: Anion Gap 9.4 mmol/L (3-11); BUN 33 mg/dL (7-18); CO2 28.6 mmol/L (21.0-32.0); CREATININE 1.4 mg/dL (0.55-1.02); Calcium 9.3 mg/dL (8.5-10.1); Chloride 102 mmol/L (98-107); Estimated GFR 38.03 (mL/min/1.73m2); Glucose 98 mg/dL (74-106); NT-proBNP 779 pg/mL (<300); Potassium 4.1 mmol/L (3.5-5.1); Sodium 140 mmol/L (136-145)
== END 2023-02-07 18:41 | disposition home or self-care (01) ==
LOC: NCHCN 18:40
PROVIDERS: PCP Family Medicine; Visit Provider Family Medicine
DX: I10 Essential (primary) hypertension (principal); R60.0 Localized edema
CPT/HCPCS: 80048; 83880

== ENCOUNTER → 2023-03-21 00:49 | Outpatient (CLI) | payer MEDICARE, OTHER, SELFPAY ==
--- NOTE | 2023-03-21 | DI.DEXA_ITS ---
Exam(s) XR DEXA BONE DENSITY W/WO MANISHA EXAM: XR DEXA BONE DENSITY W/WO MANISHA CLINICAL HISTORY: OSTEOPENIA LUMBAR REGION M85.88 TECHNIQUE: COMPARISON: CR XR DEXA BONE DENSITY W/WO MANISHA from 03/02/2020 FINDINGS: Lateral Spine Image: The patient was unable to perform the lateral spine image. Left hip: Total T-Score: -1.4. This compares to -0.9 on the prior examination. Total Z-Score: 0.6 T- and Z-scores: Findings are consistent with osteopenia. Lumbar Spine: Total T-Score: 1.2. This is unchanged compared to the prior examination. Total Z-Score: 3.9 T- and Z-scores: Within normal limits. IMPRESSION: No evidence of osteoporosis.
== END ==
PROVIDERS: PCP Family Medicine; Visit Provider Nurse Practitioner
DX: M85.88 Other specified disorders of bone density and structure, other site (principal); Z13.820 Encounter for screening for osteoporosis
CPT/HCPCS: 77080

== ENCOUNTER 2023-04-10 11:47 | Outpatient (CLI) | payer MEDICARE, OTHER, SELFPAY ==
--- NOTE | 2023-04-10 09:15 | DI.RAD_ITS ---
Exam(s) XR KNEE LT 2V AP,LAT EXAM: XR KNEE LT 2V AP,LAT INDICATION: LEFT KNEE PAIN. COMPARISON: CR LEFT KNEE 4+ VIEWS from 11/30/2013 TECHNIQUE: 2D digital imaging was performed. Two views. FINDINGS: There has been no change in the alignment of the femoral tibial joint prosthesis. There are no abnor mal surrounding bony lucencies. Anterior soft tissue calcifications are seen. DATA REPOSITORY: RADIATION DOSE DELIVERED:
== END 2023-04-10 11:48 | disposition home or self-care (01) ==
LOC: DIORS 11:47
PROVIDERS: PCP Family Medicine; Referring Provider Family Medicine
DX: Z96.652 Presence of left artificial knee joint (principal); M48.061 Spinal stenosis, lumbar region without neurogenic claudication; S32.050A Wedge compression fracture of fifth lumbar vertebra, initial encounter for closed fracture; S32.040A Wedge compression fracture of fourth lumbar vertebra, initial encounter for closed fracture; X58.XXXA Exposure to other specified factors, initial encounter; Z96.651 Presence of right artificial knee joint
CPT/HCPCS: 99213; 73560

== ENCOUNTER 2023-04-24 15:40 | Outpatient (REF) | payer MEDICARE, OTHER, SELFPAY ==
[2023-04-24 18:27] LABS: HCT 37.4 % (36.0-46.0); HGB 11.2 g/dL (11.2-15.7); MCH 24.4 pg (27.0-33.0); MCHC 29.9 % (32.0-36.0); MCV 82 fL (80-95); MPV 11.3 fL (8.0-11.0); Platelet Count 288 10^3/uL (130-400); RBC 4.59 10^6/uL (3.93-5.22); RDW-SD 50.3 fL; WBC 6.91 10^3/uL (4.4-10.8)
[2023-04-24 18:37] LABS: Anion Gap 8.4 mmol/L (3-11); BUN 22 mg/dL (7-18); CO2 28.6 mmol/L (21.0-32.0); CREATININE 1.4 mg/dL (0.55-1.02); Calcium 9.7 mg/dL (8.5-10.1); Chloride 103 mmol/L (98-107); Estimated GFR 38.03 (mL/min/1.73m2); Glucose 115 mg/dL (74-106); Potassium 4.3 mmol/L (3.5-5.1); Sodium 140 mmol/L (136-145)
[2023-04-24 18:58] LABS: NT-proBNP 817 pg/mL (<300)
[2023-04-24 19:22] LABS: Ferritin 25 ng/mL (8-252)
== END 2023-04-24 15:41 | disposition home or self-care (01) ==
LOC: NCHCN 15:40
PROVIDERS: PCP Family Medicine; Visit Provider Family Medicine
DX: D50.9 Iron deficiency anemia, unspecified (principal)
CPT/HCPCS: 80048; 85027; 82728; 83880

== ENCOUNTER → 2023-04-26 01:44 | Outpatient (CLI) | payer MEDICARE, OTHER, SELFPAY ==
--- NOTE | 2023-04-26 14:02 | DI.US_ITS ---
APPROVED REPORT EXAM: Comprehensive 2D, Doppler, and color-flow Echocardiogram Patient Location: Out-Patient Insurance Attorney: Deborah Lynn RDCS (AE) Indications: HFPEF Other Information Study Quality: Adequate Conclusion Normal left ventricular wall thickness and chamber size. Ejection fraction is 60%. Wall motion is no rmal Normal right ventricular size and systolic function Left atrium is mildly dilated The aortic valve is mildly calcified and trileaflet with mild regurgitation Estimated right ventricular systolic pressure is 40 mmHg Wall motion Left Ventricle The left ventricle is normal size. The left ventricular systolic function is normal. The left ventric ular ejection fraction is within the normal range. There is normal left ventricular wall thickness. T here is normal LV segmental wall motion. There is no ventricular septal defect visualized. LVEF is 60 %. Right Ventricle The right ventricle is normal size. The right ventricular systolic function is normal. Atria Left atrium is mildly dilated. The right atrium size is normal. The interatrial septum is intact with no evidence for an atrial septal defect. Aortic Valve Aortic valve is mildly calcified. Aortic valve is trileaflet. There is no aortic valvular stenosis. Mild aortic regurgitation. Mitral Valve The mitral valve is normal in structure. No evidence of mitral valve stenosis. Trace to mild mitral r egurgitation. Tricuspid Valve The tricuspid valve is normal in structure. There is no tricuspid valve stenosis. Trace tricuspid reg urgitation. The RVSP is 40.0 mmHg. Pulmonic Valve The pulmonary valve is normal in structure. There is no pulmonic valvular stenosis. Trace pulmonic re gurgitation. Great Vessels The aortic root is normal in size. The ascending aorta is normal in size. Aortic arch is not well vis ualized. IVC is normal in size and collapses >50% with inspiration. Pericardium There is no pericardial effusion. 2D Dimensions IVSD d PLAX 1.01 cm F: 0.6-1.0 Ao Root d 2.49 cm F: 2.7 - 3.3 LVPW d PLAX 1.01 cm F: 0.6 - 1.0 Ao Asc Diam d 2.70 cm F: 2.3 - 3.1 LVID d PLAX 4.17 cm F: 3.8 - 5.2 LVDs 2.85 cm F: 2.2 - 3.5 LV EF Teichholz 59.8 % FS 31.48 % LV EDV (Teich) 77.1 mL LV ESV (Teich) 31.0 mL M-Mode TAPSE 2.47 cm (M/F) >1.7 Auto EF LV EDV A4C 113.7 mL LV EDV A2C 106.3 mL LV EDV BP 114.0 mL LV ESV A4C 46.2 mL LV ESV A2C 40.6 mL LV ESV BP 43.8 mL LVEF(%) A4C 59.4 % LVEF(%) A2C 61.8 % LVEF(%) BP 61.5 % LV SV A4C 67.6 ml LV SV A2C 65.7 ml LV SV BP 70.1 ml LV CO A4C 3.8 L/min LV CO A2C 3.7 L/min LV CO BP 3.8 L/min HR A4C 55.82 BPM HR A2C 57.05 BPM LV EDV Index (BP) LV Strain Long Pk Overal Avg (s) 20.73 LA Volume LA Length A4C 6.5 cm LA Length A2C 5.8 cm LA Area A4C s 24.06 cm2 LA Area A2C s 20.21 cm2 LA Vol A4C A-L 75.22 mL LA Vol A2C A-L 60.02 mL LA Vol Biplane A-L 71.5 mL LA Vol/BSA A4C A-L LA Vol/BSA A2C A-L LA Vol/BSA BP A-L 34.9 mL/m2 LA Vol A4C MOD 70.0 mL LA Vol A2C MOD 56.7 mL LA Vol BP MOD 66.9 mL RA Volume RA Area A4C 14.0 cm2 RA ESV A4C (A-L) 34.3mL RA Vol/BSA A4C A-L RA Length A4C 4.8 cm RA ESV A4C (MOD) 34.2mL LV Diastology MV E' medial 0.068 (>0.07 m/s) MV E Vmax 0.85 (0.4-1.3 m/s) MV E/E' MED 12.47 (<14) MV A Vmax 0.75 (0.4-1.3 m/s) MV E' lateral 0.097 (>0.1 m/s) E/A Ratio 1.1 MV E/E' LAT 8.77 (<14) MV E' Average 0.083 m/s MV E/E'(average) 10.29 Aortic Valve AoV Vmax 2.31 m/s LVOT Vmax 1.36 m/s AoV Peak Grad 47.7 mmHg LVOT Peak Grad 7.4 mmHg AoV Area (Vmax) 1.75 cm2 LVOT VTI 0.356 m AoV VTI 0.570 m LVOT Mean Grad 4.2 mmHg AoV Mean Chago. 1.57 m/s LVOT SV 105.69 mL AoV Mean Grad 11.3 mmHg LVOT Diam s 1.90 cm AoV Area (VTI) 1.85 cm2 AV Regurg Peak Gr. 73.85 mmHg Velocity Ratio 0.59 AR Decel Mchenry 2.3m/sec2 AR DT 1842 msec AR PHT 534 msec AR Vmax 4.30 m/s Mitral Valve MV DT 192 (160-240 msec) MV Vmax TIPS 0.79 m/s MV Mean Grad 1.1 (<2mmHg) MV VTI 0.329 m Pulmonary Valve PV Vmax 1.03 (0.5-1.5 m/s) RVOT Vmax 0.77 m/s PV Peak Grad 4.3 mmHg RVOT Peak Gr. 2.4 mmHg PV Mean Chago 0.72 m/s RVOT VTI 0.175 m PV Mean Grad 2.4 mmHg RVOT Mean Gr. 1.3 mmHg Tricuspid Valve RA Pressure 3.00 mmHg TR Vmax 3.04 m/s TV S' 0.14 m/s TR Peak Grad 36.9 mmHg RVSP (TR) 40.0 mmHg
== END ==
PROVIDERS: PCP Family Medicine; Visit Provider Family Medicine
DX: I50.30 Unspecified diastolic (congestive) heart failure (principal)
CPT/HCPCS: 93306

== ENCOUNTER 2023-08-14 01:09 | Emergency (ER) | payer MEDICARE, OTHER, SELFPAY ==
[2023-08-14] VITALS (51 sets, daily range): BP systolic 96–119; BP diastolic 27–57; PULSE 53–75; RESP 3–20; TEMP 36.6; O2SAT 100
--- NOTE | 2023-08-14 00:45 | RT.EKG_ITS ---
APPROVED REPORT Exam: Resting ECG Reason for Exam: Chest pain Patient Location: E HR:68 bpm ECG Measurements Heart Rate 68 AXIS MN 186 P 66 QRSd 101 QRS 10 QT 400 T 42 QTc 425 Conclusion Sinus rhythm...normal P axis, V-rate 60- 99 Left ventricular hypertrophy...multiple voltage criteria Normal sinus rhythm at a rate of 68 with interventricular conduction delay. Normal axis. LVH based on voltage criteria. Anterior T waves appear slightly more prominent compared to prior. Prior dated last year. Mild upsloping ST segments lead V2. No ST segment depressions. No T wave inversions. No acute injury pattern. MN and QTc within normal limits.
--- NOTE | 2023-08-14 00:55 | W.ED.GENAD ---
Discharge Plan Disposition Patient Disposition: Home Discharge Details Clinical Impression: Pain of right scapula Primary Care Provider: Dulce Hidalgo ED Provider: Ariel Deshpande Reydon Meds and New Rx's Prescriptions: New lidocaine [Lidoderm] 5 % adhesive patch,medicated 1 patch topical DAILY Qty: 15 0RF Rx Instructions: leave on most painful area for up to 12 hrs Continued cetirizine [Zyrtec] 10 mg tablet 10 mg PO DAILY PRN polyethylene glycol 3350 [Miralax] 17 gram/dose powder 17 gm PO PRN PRN acetaminophen [Tylenol Extra Strength] 500 mg tablet 500 mg PO PRN alum-mag hydroxide-simeth 200-200-20 mg/5 mL suspension 10 ml PO PRN PRN Patient Comments: for abdominal cramping furosemide 20 mg tablet 40 mg PO DAILY Qty: 0 0RF Patient Comments: Take 1 tablet by mouth once a day Jardiance 10 mg tablet 10 mg PO DAILY bisacodyl 5 mg tablet,delayed release (DR/EC) 5 mg PO DAILY PRN psyllium husk 3.4 gram/5.4 gram powder 1 tbsp PO DAILY PRN Hold Instructions: Pt Stopped/Never Started Rx Instructions: mix into at least 8 oz of water or juice before administering gabapentin 100 mg capsule 200 mg PO QHS Hold Instructions: Pt Stopped/Never Started meclizine 12.5 mg tablet 12.5 mg PO TID PRN omeprazole 20 mg capsule,delayed release(DR/EC) 10 mg PO DAILY docusate sodium 100 mg capsule 100 mg PO DAILY PRN Hold Instructions: Pt Stopped/Never Started simvastatin 10 MG tablet 10 mg PO HS atenolol 50 MG tablet 50 mg PO DAILY calcium carb and citrate-vitD3 [Citracal-D3 Slow Release] 1 EACH tablet extended release 1 tab PO DAILY ondansetron 4 mg tablet,disintegrating 4 mg PO Q6H PRN (Reason: nausea and vomiting) Qty: 14 0RF Hold Instructions: Pt Stopped/Never Started magnesium oxide 400 mg Capsule 400 mg PO DAILY Hold Instructions: Pt Stopped/Never Started Xarelto 10 mg Tablet 10 mg PO DAILY Discharge Instructions Instructions: Shoulder Pain (ED) Additional Instructions: You were seen in the emergency department for your shoulder pain. Your CAT scan showed no sign of any fractures. As we discussed, you may have injured one of your ligaments or muscles. Please follow-up with your primary care provider next week. Please return to the emergency department as we discussed if you cannot eat or drink as a result of nausea vomiting or any abdominal pain. Please use this prescription for numbing medicine patches as directed. For your pain please take medications as follows: 1. Take acetaminophen (Tylenol), 1,000 mg (two 500 mg tabs) every 6 hours Discharge Data Discharge Date/Time-TO BE ENTERED AT DEPARTURE: 08/14/23 03:50 HPI General Date/Time Provider Initiated Documentation: 08/14/23 01:18. HPI Narrative: MDM This is a chronically ill normothermic and not tachycardic 82-year-old female with right scapular pain concerning for the possibility of pathological fracture given history of metastatic urethral carcinoma for which patient will undergo x-rays. If plain films are unremarkable will increase sensitivity with CT scan. No pain out of proportion to suggest necrotizing soft tissue infection. Patient is able to touch her right arm to her contralateral left shoulder so my suspicion is extremely low for dislocation. Given limited range of motion adhesive capsulitis is certainly in the differential. No rash to back to suggest zoster. No erythema nor warmth to suggest cellulitis. No fluctuance to suggest abscess. Equal breath sounds and no history of trauma so doubt pneumothorax. Given scapular pain ACS is certainly a possibility so we will obtain a troponin. Based on the duration of time since the patient's symptoms began greater than 24 hours ago and her nonischemic ECG will only obtain a single troponin. Given good range of motion in joint with no erythema I am not concerned for septic joint. Patient does appear to be chronically volume overloaded based on her lower extremity edema however she reports that this is slightly improved and she is not complaining of shortness of breath so I do not feel that her presentation represents acute heart failure. Given no shortness of breath and no chest pain my suspicion is low for PE so I did not send a D-dimer. No cough nor fevers to suggest pneumonia. I considered referred pain however the patient denies abdominal pain has a soft, nontender abdomen, and has had no vomiting no diarrhea and no nausea. I considered upper extremity DVT however the patient has had no recent PICC lines and is not an IV drug user as result,I did not feel that the patient required a right upper extremity duplex study. Patient has no history of cervical rib and her right hand is warm and well-perfused so my suspicion is quite low for thoracic outlet syndrome. Patient is neurologically intact so my suspicion is low for CVA. No pain in her humerus to suggest biceps tendon rupture. No back pain or fevers to suggest spinal epidural abscess. Patient reports that her pain is currently improved following prehospital acetaminophen. As result we will defer additional analgesia at this point in time. 1:15 AM CBC lacks leukocytosis and thrombocytopenia but reveals have mild microcytic anemia slightly worse compared to prior. 2:20 AM Chemistry with mild hyperglycemia but normal bicarbonate and no anion gap??not consistent with DKA. No KEYSHA. No acute electrolyte abnormalities. Negative troponin. Patient had nondiagnostic right scapular plain film and as result I obtained a CT without contrast to assess for any acute osseous abnormalities. 2:56 AM I met with the patient and she felt her symptoms were improved. Will prescribe her the Lidoderm patch. Please follow-up comfortable going home if her CAT scan showed no obvious osseous abnormalities. Is certainly possible that the patient could have a muscular or ligamentous injury and that she may require an MRI down the road as an outpatient. I do not feel that she requires transfer for an emergent MRI. 3:30 AM I met with the patient and her symptoms remain improved. Her CT was reassuring against any acute osseous abnormalities. We discussed her pulmonary fibrosis about which she had heard in the past. I advised ED return for any worsening pain any weakness in her hand or any difficulty breathing. She understood her return indications. I advised PCP follow-up next week. Will proceed with empiric trial of expectant outpatient management. Chronic conditions affecting the care of the patient: Metastatic urethral carcinoma History obtained from an outside historian: Paramedics External [place] [facility] [place] Diagnostic interpretations performed by me: Per my independent interpretation chest x-ray shows: No acute cardiopulmonary process Per my independent interpretation EKG shows: Normal sinus rhythm at a rate of 68 with interventricular conduction delay. Normal axis. LVH based on voltage criteria. Anterior T waves appear slightly more prominent compared to prior. Prior dated last year. Mild upsloping ST segments lead V2. No ST segment depressions. No T wave inversions. No acute injury pattern. SC and QTc within normal limits. ]Medications: Lidoderm Social determinants of health affecting disposition: N/A Management discussed with: N/A Treatment/interventions considered: N/A Response to therapies provided: Improved symptoms in the ED following treatment HPI This is an 82-year-old [id number] female with a history of heart failure and malignancy arrived to the emergency department via paramedics in the setting of right scapular pain that began yesterday morning. Patient reports that she has been going up and down her stairs more recently. When she goes up her stairs she uses a cane in her right hand and to hold onto the railing with her left hand. She denies any falls. She denies any numbness or tingling in her right hand. Patient reports that her pain now goes under her right armpit. She denies chest pain or shortness of breath. No recent fevers. No recent weight gain. Patient has been adherent with her rivaroxaban. She has not been nauseous. She ambulates with 2 canes at baseline. She denies vomiting abdominal pain dysuria and frequency. No recent fevers. She received 1 g of acetaminophen prehospital. Exam General: Chronically ill-appearing in no acute distress speaking in complete sentences. Head: Normocephalic, atraumatic. Eye: Extraocular eye movements intact. No conjunctival injection. No scleral icterus. Ear, nose, mouth, throat: Grossly normal inspection. Normal voice, handling secretions normally. Neck: Trachea midline. Cardiovascular: Well-perfused distal extremities. Regular rate and rhythm Respiratory: Nonlabored respiration. Clear lungs bilaterally Gastrointestinal: Nondistended abdomen. Soft nontender. Musculoskeletal: Marked bilateral lower extremity 2+ nonpitting edema. Moving all 4 extremities spontaneously. Right upper extremity: Patient is able to touch her right hand to her contralateral left shoulder. Her right hand is warm and well-perfused with a 2+ right radial pulse. Cap refill less than 2 seconds in her right fingertips. Sensation motor function intact in the right hand across the radial, median, and ulnar nerve distributions. Full range of motion throughout forearm elbow and wrist. Patient has no tenderness throughout hand wrist forearm elbow and humerus. Patient does have some tenderness of her scapula on the right. No lacerations. No ecchymoses. Patient is able to flex her right arm at the shoulder approximately 75 degrees. She is only able to abduct her right arm approximately 15 degrees limited secondarily to pain. She can extend her right arm at the shoulder approximately 5 degrees. Skin: Normal for age and race, grossly normal temperature and turgor. No acute rash. Neurologic: Alert and appropriate, no apparent acute deficits. No acute neurological deficits. GCS 15. Psychiatric: Mood and manner are appropriate. Grooming and personal hygiene are appropriate. Related Data Home Medications Medication Instructions Recorded Confirmed atenolol 50 mg tablet 50 mg PO DAILY 11/30/13 08/14/23 calcium carb,cit ER 600 mg-vit D3 1 tab PO DAILY 11/30/13 08/14/23 12.5 mcg (500 unit) tablet,ext.rel (Citracal-D3 Slow Release) simvastatin 10 mg tablet 10 mg PO HS 11/30/13 08/14/23 magnesium oxide 400 mg PO DAILY 04/04/18 08/14/23 cetirizine 10 mg tablet (Zyrtec) 10 mg PO DAILY PRN 07/27/18 08/14/23 rivaroxaban 10 mg tablet (Xarelto) 10 mg PO DAILY 08/26/18 08/14/23 acetaminophen 500 mg tablet 500 mg PO PRN 09/21/18 08/14/23 (Tylenol Extra Strength) aluminum-mag hydroxide-simethicone 10 ml PO PRN PRN 09/21/18 08/14/23 200 mg-200 mg-20 mg/5 mL oral susp polyethylene glycol 3350 17 17 gm PO PRN PRN 09/21/18 08/14/23 gram/dose oral powder (Miralax) ondansetron 4 mg disintegrating 4 mg PO Q6H PRN nausea and 07/11/19 08/14/23 tablet vomiting #14 tabs bisacodyl 5 mg tablet,delayed 5 mg PO DAILY PRN 01/19/23 08/14/23 release empagliflozin 10 mg tablet 10 mg PO DAILY 01/19/23 08/14/23 (Jardiance) furosemide 20 mg tablet 40 mg (2 x 20 mg) PO DAILY #0 tabs 01/19/23 08/14/23 psyllium husk 3.4 gram/5.4 gram 1 tbsp PO DAILY PRN 01/19/23 08/14/23 oral powder docusate sodium 100 mg capsule 100 mg PO DAILY PRN 03/14/23 08/14/23 gabapentin 100 mg capsule 200 mg PO QHS 03/14/23 08/14/23 meclizine 12.5 mg tablet 12.5 mg PO TID PRN 03/14/23 08/14/23 omeprazole 20 mg capsule,delayed 10 mg PO DAILY 03/14/23 08/14/23 release lidocaine 5 % topical patch 1 patch topical DAILY #15 ea 08/14/23 (Lidoderm) Previous Rx's Medication Instructions Recorded ondansetron 4 mg disintegrating 4 mg PO Q6H PRN nausea and 07/11/19 tablet vomiting #14 tabs furosemide 20 mg tablet 40 mg (2 x 20 mg) PO DAILY #0 tabs 01/19/23 lidocaine 5 % topical patch 1 patch topical DAILY #15 ea 08/14/23 (Lidoderm) Allergies Allergy/AdvReac Type Severity Reaction Status Date / Time latex Allergy Mild Verified 04/10/23 09:19 Sulfa (Sulfonamide AdvReac Severe liver Verified 04/10/23 09:19 Antibiotics) damage ciprofloxacin [From Cipro] AdvReac Intermediate unknown Verified 04/10/23 09:19 glucosamine AdvReac Intermediate Nausea Verified 04/10/23 09:19 glue on bandaids Allergy Mild rash Uncoded 04/10/23 09:19 Epideral Dressing AdvReac Severe Blistering Uncoded 04/10/23 09:19 General SADIE: 3 Medical Decision Making Quality:SDOH Health Related Social Needs: No Data to Display PFSH All Active Problems (Updated 08/14/23 @ 02:58 by Ariel Deshpande MD) Pain of right scapula (Acute) History of total left knee replacement (Acute) Other B-complex deficiencies (Acute) Generalized osteoarthritis (Acute) Vitamin D deficiency (Acute) Tremor (Acute) essential Chronic rhinitis (Acute) Constipation (Acute) Degenerative arthritis of hand (Acute) bilateral Upper back pain (Acute) Bilateral leg edema (Acute) Tricuspid valve disease (Acute) (HFpEF) heart failure with preserved ejection fraction (Acute) Prediabetes (Acute) HLD (hyperlipidemia) (Acute) HTN (hypertension) (Chronic) Mild tricuspid regurgitation (Acute) DJD (degenerative joint disease), lumbar (Acute) Atherosclerosis of aorta (Acute) Spinal stenosis at L4-L5 level (Acute) Severe Compression fracture of L5 vertebra (Acute) Noted on CT scan 10/02 Compression fracture of L4 vertebra (Acute) Noted on CT scan 08/2022 Nausea and vomiting (Acute) Upper abdominal pain, unspecified (Acute) Medical History (Updated 08/14/23 @ 02:58 by Ariel Deshpande MD) History of adenomatous polyp of colon Hx of deep venous thrombosis Ovarian cancer Cancer of right ureter stage 3 Anemia Pulmonary embolism Stage 3 chronic kidney disease Obesity GERD (gastroesophageal reflux disease) Ventral hernia Dehydration Neutropenia drug induced IT band syndrome Actinic keratosis Seborrheic keratoses Osteopenia Breast cancer, stage 1 Benign essential tremor BRCA2 positive Incisional hernia H/O primary malignant neoplasm of urinary bladder H/O ovarian cancer H/O renal cell cancer Surgical History (Updated 04/10/23 @ 09:29 by Aaron Guardado RN) Hx of bilateral mastectomy H/O right nephrectomy Right, with partial uretectomy, Dr Ariel Do History of bowel resection partial, unknown date History of appendectomy unknown date S/P recurrent ventral herniorrhaphy (07/17/18) Dr Michael Carroll, [facility] S/P TKR (total knee replacement) S/P hysterectomy with oophorectomy H/O partial cystectomy Status post cataract extraction and insertion of intraocular lens of right eye (04/23/18) Status post cataract extraction and insertion of intraocular lens of left eye (04/09/18) Social History Smoking/Tobacco Use Status: Never Smoking risk assessment performed?: Yes Alcohol Intake: never Drug use: Never Substance use type: does not use Current gender identity: female Do you feel safe at home: Yes Do you feel safe in your relationship?: Yes
--- NOTE | 2023-08-14 01:26 | NUR.NOTE ---
Nursing Note: pt speaking clear sentences, denies any SOB, pt states that she uses a cane at home and has been using her right arm more to assist herself up the stairs. no falls, pt states increased pain, but able to clamp remover and touch her left shoulder. 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 pt states pain on the back of her shoulder increases with palpation, area of the shoulder blade. denies any numbness or tingling, no abd concerns or urinary issues.
--- NOTE | 2023-08-14 01:30 | DI.RAD_ITS ---
Exam(s) XR CHEST 1V IN DI DEPT EXAM: XR CHEST 1V IN DI DEPT CLINICAL HISTORY: Right scapular pain TECHNIQUE: 2D digital imaging was performed. COMPARISON: CR,XR XR PORTABLE CHEST AP from 10/08/2022 FINDINGS: Exam limited by under penetration, lordotic positioning and overlying monitoring leads. LUNGS: Question of increased densities at the left lung base could represent atelectasis versus infil trate. No growth pleural effusion seen. HEART: Normal size. AORTA: Normal diameter. BONES: Severe degenerative changes of the acromioclavicular joints. Evidence of right chronic rotato r cuff tear. No grossly displaced fractures identified. Soft tissues: Unremarkable. IMPRESSION: Question of left lower lobe infiltrate versus atelectasis. No evidence of pneumothorax. DATA REPOSITORY: RADIATION DOSE DELIVERED:
--- NOTE | 2023-08-14 01:30 | DI.RAD_ITS ---
Exam(s) XR SCAPULA RT EXAM: XR SCAPULA RT CLINICAL HISTORY: Right scapular pain history of malignancy. TECHNIQUE: 2D digital imaging was performed. Three views. COMPARISON: No exams were available for comparison FINDINGS: Exam is limited by patient's immobility. Positioning is suboptimal. BONES: No acute fracture is present. No bony destructive lesion is seen. JOINTS: No dislocation present. Degenerative changes of the AC joint and glenohumeral joint. SOFT TISSUE: Normal. IMPRESSION: Degenerative changes. No acute abnormality. DATA REPOSITORY: RADIATION DOSE DELIVERED:
[2023-08-14 01:43] LABS: Abs Immature Grans 0.03 10^3/uL (0.0-0.06); Absolute Basophil Count 0.03 10^3/uL (0.0-0.2); Absolute Eosinophil Count 0.15 10^3/uL (0.0-0.7); Absolute Lymphocyte Count 2.28 10^3/uL (1.2-3.4); Absolute Monocyte Count 0.81 10^3/uL (0.1-0.8); Absolute Neutrophil Count 5.39 10^3/uL (1.2-6.7); Basophils % 0.3; Eosinophils % 1.7; HCT 34.9 % (36.0-46.0); HGB 10.6 g/dL (11.2-15.7); Immature Grans % 0.3; Lymphocytes % 26.2; MCHC 30.4 % (32.0-36.0); MCV 79 fL (80-95); MPV 10.5 fL (8.0-11.0); Monocytes % 9.3; Neutrophils % 62.2; Platelet Count 247 10^3/uL (130-400); RBC 4.42 10^6/uL (3.93-5.22); RDW 17.2 % (11.7-14.6); RDW-SD 49.1 fL; WBC 8.69 10^3/uL (4.4-10.8)
[2023-08-14 02:06] LABS: Anion Gap 8.9 mmol/L (3-11); BUN 32 mg/dL (7-18); CO2 28.1 mmol/L (21.0-32.0); CREATININE 1.6 mg/dL (0.55-1.02); Calcium 9.2 mg/dL (8.5-10.1); Chloride 103 mmol/L (98-107); Potassium 3.6 mmol/L (3.5-5.1); Sodium 140 mmol/L (136-145); Troponin I < 50 ng/L (< or =60)
[2023-08-14 02:10] LABS: Glucose 135 mg/dL (74-106)
--- NOTE | 2023-08-14 02:15 | DI.CT_ITS ---
Exam(s) CT CHEST WO EXAM: CT CHEST WO CLINICAL HISTORY: Right scapular pain nondiagnostic x-ray TECHNIQUE: Imaging Protocol: Axial computed tomography images with coronal and sagittal reformatted images were created and reviewed CONTRAST MATERIAL: Intravenous: Omnipaque 350 Contrast volume:structured data ml. COMPARISON: CT CT CHEST PE ABD PELVIS W from 10/08/2022 FINDINGS: Pulmonary parenchyma: Fibrotic changes greater peripherally and at the lung bases.. No consolidation. No dominant measurable mass. Tracheobronchial tree: No bronchiectasis or mucous plugging. Mediastinum and Jenifer: No dominant adenopathy or fluid collection. Pleura: No effusion. No pneumothorax. Heart: The heart is mildly dilated. Moderate coronary artery calcifications are seen. Aorta: Thoracic aorta non-dilated. Mild atherosclerotic changes. Upper abdomen: No acute findings.. Bones: No evidence fracture. Severe degenerative changes of the right shoulder.Degenerative changes in the spine. Soft tissues: Unremarkable. IMPRESSION: No acute abnormality. Fibrotic changes. Degenerative changes in the shoulder and spine. No evidence o f fracture. RADIATION DOSE DELIVERED: 523.66mGy.cm Total DLP DATA REPOSITORY: All CT scans at this facility are submitted to the National Radiology Data Registry (NRDR) Dose Index Registry (DIR) with the [employer] ([employer]). RADIATION OPTIMIZATION: All CT scans at this facility use at least one of these dose optimization te chniques: automated exposure control; mA and/or kV adjustment per patient size (includes targeted exa ms where dose is matched to clinical indication); or iterative reconstruction.
[2023-08-14] MEDS: Lidocaine 5% Patch 1 PATCH TP (03:01)
--- NOTE | 2023-08-14 03:15 | DI.VRAD_ITS ---
PROCEDURE INFORMATION: Exam: XR Chest Exam date and time: 08/14/2023 2:01 AM Age: 82 years old Clinical indication: Right-sided; Prior surgery; Surgery date: 6+ months; Surgery type: Double mastectomy; Patient HX: Right scapular pain TECHNIQUE: Imaging protocol: Radiologic exam of the chest. Views: 1 view. COMPARISON: CR XR PORTABLE CHEST AP 10/08/2022 2:16 PM FINDINGS: Lungs: Increased retrocardiac opacity obscuring the normal margin of the left hemidiaphragm, could signify any combination of atelectasis, aspiration, or pneumonia. Pleural spaces: Equivocal small left pleural effusion. Heart/Mediastinum: Unremarkable. No cardiomegaly. Bones/joints: Unremarkable. IMPRESSION: 1. Increased retrocardiac opacity obscuring the normal margin of the left hemidiaphragm, could signify any combination of atelectasis, aspiration, or pneumonia. 2. Equivocal small left pleural effusion. Dictated and Authenticated by: Castro Subramanian MD. Ordering:GAIL George MD
--- NOTE | 2023-08-14 03:21 | DI.VRAD_ITS ---
PROCEDURE INFORMATION: Exam: CT Chest Without Contrast; Diagnostic Exam date and time: 08/14/2023 2:27 AM Age: 82 years old Clinical indication: Right-sided; Prior surgery; Surgery date: 6+ months; Surgery type: Double mastectomy; Patient HX: Right scapular pain, HX of malignancy TECHNIQUE: Imaging protocol: Diagnostic computed tomography of the chest without contrast. 3D rendering (Not supervised by radiologist): MIP and/or 3D reconstructed images were created by the technologist. Radiation optimization: All CT scans at this facility use at least one of these dose optimization techniques: automated exposure control; mA and/or kV adjustment per patient size (includes targeted exams where dose is matched to clinical indication); or iterative reconstruction. COMPARISON: CT CHEST PE ABD PELVIS W 10/08/2022 9:15 AM FINDINGS: Lungs: UIP type pulmonary fibrosis. Lungs otherwise clear. Pleural spaces: Unremarkable. No pneumothorax. No pleural effusion. Heart: Unremarkable. No cardiomegaly. No pericardial effusion. Mediastinal space: Esophagus is unremarkable. Lymph nodes: Unremarkable. No enlarged lymph nodes. Vasculature: Unremarkable. No aortic aneurysm. Diaphragm: Small hiatal hernia. Bones/joints: Unremarkable. No acute fracture. Soft tissues: Unremarkable. IMPRESSION: UIP type pulmonary fibrosis. Dictated and Authenticated by: Castro Subramanian MD. Ordering:GAIL George MD
--- NOTE | 2023-08-14 03:24 | DI.VRAD_ITS ---
PROCEDURE INFORMATION: Exam: XR Right Scapula Exam date and time: 08/14/2023 2:07 AM Age: 82 years old Clinical indication: Shoulder; Patient HX: Right scapular pain history of malignancy TECHNIQUE: Imaging protocol: Radiologic exam of the right scapula. Complete exam. COMPARISON: CR XR CHEST 1V IN DI DEPT 08/14/2023 2:01 AM FINDINGS: Bones/joints: Normal. Soft tissues: Normal. IMPRESSION: No acute findings. Dictated and Authenticated by: Castro Subramanian MD. Ordering:GAIL George MD
== END 2023-08-14 03:50 | disposition home or self-care (01) ==
PROVIDERS: Emergency Provider Emergency Medicine; PCP Family Medicine
DX: M25.511 Pain in right shoulder (principal); I13.0 Hypertensive heart and chronic kidney disease with heart failure and stage 1 through stage 4 chronic kidney disease, or unspecified chronic kidney disease; N18.30 Chronic kidney disease, stage 3 unspecified; Z90.5 Acquired absence of kidney; Z79.01 Long term (current) use of anticoagulants; Z86.718 Personal history of other venous thrombosis and embolism; Z86.711 Personal history of pulmonary embolism
CPT/HCPCS: 71250; 80048; 93005; 99285; 71045; 73010; 84484; 85025; 93010; 99284

== ENCOUNTER 2023-09-18 11:14 | Outpatient (REF) | payer MEDICARE, OTHER, SELFPAY ==
[2023-09-18 18:32] LABS: HCT 33.3 % (36.0-46.0); HGB 10.1 g/dL (11.2-15.7); MCHC 30.3 % (32.0-36.0); MCV 79 fL (80-95); MPV 11.4 fL (8.0-11.0); Platelet Count 277 10^3/uL (130-400); RDW 17.4 % (11.7-14.6); RDW-SD 50.1 fL; WBC 5.65 10^3/uL (4.4-10.8)
[2023-09-18 18:43] LABS: Hemoglobin A1C 6.5 % (<5.7)
[2023-09-18 19:02] LABS: Anion Gap 7.9 mmol/L (3-11); BUN 26 mg/dL (7-18); CO2 29.1 mmol/L (21.0-32.0); CREATININE 1.3 mg/dL (0.55-1.02); Chloride 106 mmol/L (98-107); Estimated GFR 41.57 (mL/min/1.73m2); Ferritin 15 ng/mL (8-252); Glucose 108 mg/dL (74-106); Potassium 4.2 mmol/L (3.5-5.1); Sodium 143 mmol/L (136-145); Vitamin B12 221 pg/mL (193-986)
== END 2023-09-18 11:15 | disposition home or self-care (01) ==
LOC: NCHCN 11:14
PROVIDERS: PCP Family Medicine; Visit Provider Family Medicine
DX: R73.03 Prediabetes (principal); D50.9 Iron deficiency anemia, unspecified; N18.30 Chronic kidney disease, stage 3 unspecified; E53.9 Vitamin B deficiency, unspecified
CPT/HCPCS: 80048; 85027; 82607; 82728; 83036

== ENCOUNTER 2023-10-06 00:46 | Outpatient (RCR) | payer MEDICARE, OTHER, SELFPAY ==
[2023-09-29] MEDS: IRON SUCROSE COMPLEX 300 MG in Normal Saline 250 ML 176.667 MG IVPB (08:51)
[2023-09-29] MEDS: Normal Saline Flush 10 ML SYR IVP (08:52)
[2023-10-06] MEDS: Normal Saline Flush 10 ML SYR IVP (08:55)
[2023-10-06] MEDS: IRON SUCROSE COMPLEX 300 MG in Normal Saline 250 ML 176.667 MG IVPB (09:01)
== END 2023-10-10 23:59 | disposition home or self-care (01) ==
LOC: INF 00:46
PROVIDERS: PCP Family Medicine; Visit Provider Nurse Practitioner Acute Care
DX: D50.9 Iron deficiency anemia, unspecified (principal)
CPT/HCPCS: 96365; 96366; J1756

== ENCOUNTER 2023-10-06 14:22 | Emergency (ER) | payer MEDICARE, OTHER, SELFPAY ==
[2023-10-06] VITALS (53 sets, daily range): BP systolic 160–225; BP diastolic 43–112; PULSE 53–66; RESP 2–22; TEMP 36.6–36.8; O2SAT 95–96
--- NOTE | 2023-10-06 14:15 | RT.EKG_ITS ---
APPROVED REPORT Exam: Resting ECG Reason for Exam: chest pain Patient Location: E HR:60 bpm ECG Measurements Heart Rate 60 AXIS MO 181 P 75 QRSd 89 QRS 65 QT 420 T 88 QTc 420 Conclusion Sinus rhythm...normal P axis, V-rate 60- [address] depression, anterolateral leads...ST <-0.07mV, I aVL V2-V6 Physician: Sinus rhythm, rate 60, no STEMI, minimal depression in V4, slight elevation in aVR and aVL . Changes are new compared to prior EKG 2 months ago
--- NOTE | 2023-10-06 14:33 | ED.GENADUL_ITS ---
Discharge Plan Disposition Patient Disposition: Transfer-Acute Inpatient Care Specific Acute Inpt Facility: [facility] Condition: Serious Discharge Details Clinical Impression: Hypertensive emergency, Chronic kidney disease, Acute non-ST elevation myocardial infarction (NSTEMI) Primary Care Provider: Dulce Hidalgo ED Provider: Jakob Matthew Home Meds and New Rx's Prescriptions: No Action polyethylene glycol 3350 [Miralax] 17 gram/dose powder 17 gm PO PRN PRN acetaminophen [Tylenol Extra Strength] 500 mg tablet 500 mg PO PRN alum-mag hydroxide-simeth 200-200-20 mg/5 mL suspension 10 ml PO PRN PRN Patient Comments: for abdominal cramping furosemide 20 mg tablet 40 mg PO DAILY Qty: 0 0RF Patient Comments: Take 1 tablet by mouth once a day Jardiance 10 mg tablet 10 mg PO DAILY bisacodyl 5 mg tablet,delayed release (DR/EC) 5 mg PO DAILY PRN psyllium husk 3.4 gram/5.4 gram powder 1 tbsp PO DAILY PRN Hold Instructions: Pt Stopped/Never Started Rx Instructions: mix into at least 8 oz of water or juice before administering meclizine 12.5 mg tablet 12.5 mg PO TID PRN omeprazole 20 mg capsule,delayed release(DR/EC) 10 mg PO DAILY docusate sodium 100 mg capsule 100 mg PO DAILY PRN Hold Instructions: Pt Stopped/Never Started simvastatin 10 MG tablet 10 mg PO HS atenolol 50 MG tablet 50 mg PO DAILY calcium carb and citrate-vitD3 [Citracal-D3 Slow Release] 1 EACH tablet extended release 1 tab PO DAILY ondansetron 4 mg tablet,disintegrating 4 mg PO Q6H PRN (Reason: nausea and vomiting) Qty: 14 0RF Hold Instructions: Pt Stopped/Never Started magnesium oxide 400 mg Capsule 400 mg PO DAILY Hold Instructions: Pt Stopped/Never Started Xarelto 10 mg Tablet 10 mg PO DAILY HPI General Date/Time Provider Initiated Documentation: 10/06/23 14:22 . 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 Patient states that today she received her regular iron infusions which is always gone well. After the infusion she went home and when she was walking up to her house from the car she noted she was a bit more out of breath than normal. This was about 150 feet. She sat down and took her medications and noticed a tightness around her chest which was atypical, it felt like a very tight band. Nothing particularly aggravated it or relieve it aside for nash nolen. EMS was called and she was brought to the ER for further assessment. Currently she describes it as a bandlike sensation around her chest with radiation to the shoulders. No arm or neck pain. No tearing or ripping sensation. No vomiting or diarrhea. No fever or chills. No recent cough. Patient denies any exertional dyspnea over the last few days aside for the episodes of today. She denies any history of AK however has very strong family history of heart attacks for all of her siblings. No other complaints at this time. No other modifying factors Related Data Home Medications Medication Instructions Recorded Confirmed atenolol 50 mg tablet 50 mg PO DAILY 11/30/13 10/06/23 calcium carb,cit ER 600 mg-vit D3 1 tab PO DAILY 11/30/13 10/06/23 12.5 mcg (500 unit) tablet,ext.rel (Citracal-D3 Slow Release) simvastatin 10 mg tablet 10 mg PO HS 11/30/13 10/06/23 magnesium oxide 400 mg PO DAILY 04/04/18 10/06/23 rivaroxaban 10 mg tablet (Xarelto) 10 mg PO DAILY 08/26/18 10/06/23 acetaminophen 500 mg tablet 500 mg PO PRN 09/21/18 10/06/23 (Tylenol Extra Strength) aluminum-mag hydroxide-simethicone 10 ml PO PRN PRN 09/21/18 10/06/23 200 mg-200 mg-20 mg/5 mL oral susp polyethylene glycol 3350 17 17 gm PO PRN PRN 09/21/18 10/06/23 gram/dose oral powder (Miralax) ondansetron 4 mg disintegrating 4 mg PO Q6H PRN nausea and 07/11/19 10/06/23 tablet vomiting #14 tabs bisacodyl 5 mg tablet,delayed 5 mg PO DAILY PRN 01/19/23 10/06/23 release empagliflozin 10 mg tablet 10 mg PO DAILY 01/19/23 10/06/23 (Jardiance) furosemide 20 mg tablet 40 mg (2 x 20 mg) PO DAILY #0 tabs 01/19/23 10/06/23 psyllium husk 3.4 gram/5.4 gram 1 tbsp PO DAILY PRN 01/19/23 10/06/23 oral powder docusate sodium 100 mg capsule 100 mg PO DAILY PRN 03/14/23 10/06/23 meclizine 12.5 mg tablet 12.5 mg PO TID PRN 03/14/23 10/06/23 omeprazole 20 mg capsule,delayed 10 mg PO DAILY 03/14/23 10/06/23 release Previous Rx's Medication Instructions Recorded ondansetron 4 mg disintegrating 4 mg PO Q6H PRN nausea and 07/11/19 tablet vomiting #14 tabs furosemide 20 mg tablet 40 mg (2 x 20 mg) PO DAILY #0 tabs 01/19/23 Allergies Allergy/AdvReac Type Severity Reaction Status Date / Time latex Allergy Mild Verified 04/10/23 09:19 Sulfa (Sulfonamide AdvReac Severe liver Verified 04/10/23 09:19 Antibiotics) damage ciprofloxacin [From Cipro] AdvReac Intermediate unknown Verified 04/10/23 09:19 glucosamine AdvReac Intermediate Nausea Verified 04/10/23 09:19 glue on bandaids Allergy Mild rash Uncoded 04/10/23 09:19 Epideral Dressing AdvReac Severe Blistering Uncoded 04/10/23 09:19 General SADIE: 3 Review of Systems All systems reviewed & are unremarkable except as noted in HPI and below Exam Narrative Exam Narrative: 1.Const: Well-nourished, Well-developed, appearing stated age 2.Eyes: PERRL, no conjunctival injection, and symmetrical lids. 3.ENT: Atraumatic external nose and ears. Moist MM. Neck: Symmetric, trachea midline, No thyromegaly. 4.CVS: +S1/S2, No murmurs or gallops. Peripheral pulses 2+ and equal in all extremities. Brisk capillary refill in all extremities. 5.RESP: Unlabored respiratory effort. Clear to auscultation bilaterally. No wheezes rales or rhonchi 6.GI: Soft, Nontender/Nondistended, No hepatosplenomegaly. No guarding or rebound. 7.MSK: Normocephalic/Atraumatic, Extremities w/o deformity or ttp No cyanosis or clubbing, Normal movement of all extremities. Large legs but no pitting edema. No calf tenderness 8.Skin: Warm, Dry. No rashes or lesions. 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 Sensation grossly intact, no focal neurologic deficits. 10.Psych: (AAO) x3. 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 Patient states that today she received her regular iron infusions which is always gone well. After the infusion she went home and when she was walking up to her house from the car she noted she was a bit more out of breath than normal. This was about 150 feet. She sat down and took her medications and noticed a tightness around her chest which was atypical, it felt like a very tight band. Nothing particularly aggravated it or relieve it aside for activity. EMS was called and she was brought to the ER for further assessment. Currently she describes it as a bandlike sensation around her chest with radiation to the shoulders. No arm or neck pain. No tearing or ripping sensation. No vomiting or diarrhea. No fever or chills. No recent cough. Emely head denies any exertional dyspnea over the last few days aside for the episodes of today. She denies any history of AK however has very strong family history of heart attacks for all of her siblings. No other complaints at this time. No other modifying factors Exam demonstrates well-appearing female, vital signs are stable aside from minimal tachycardia. No hypoxemia. Lungs are clear, no calf tenderness, no pitting edema. Differential includes ACS, unstable angina, less likely PE as she takes her Eliquis as directed. Symptoms appear inconsistent with dissection as she has no tearing or ripping pain. Pulses are equal bilaterally for the radial pulses, and she shows no chest pain whatsoever.. Infusion reaction is of concern. We will evaluate for these etiologies, monitor closely and reassess. Sinus rhythm, rate 60, no STEMI, minimal depression in V4, slight elevation in aVR and aVL. Changes are new compared to prior EKG 2 months ago 2:57 PM Blood pressure is 225/112, with the patient's symptoms and concern for hypertensive emergency. We will first give nitroglycerin to see if this makes a change. 3:30 PM No change with nitroglycerin, patient has been started on nitroglycerin drip. At 50 mics she is now hovering at a blood pressure in the 170s systolic. Will maintain this look blood pressure location. Laboratory workup shows a minimally bumped troponin at 65, however I suspect that this is just the initial and it will go up significantly more due to the brevity of her symptoms. Hemoglobin is stable, creatinine 1.4, GFR 38, these are baseline. proBNP is 1300, lipase normal. Chest x-ray shows cardiomegaly with prominent interstitial markings, and no widened mediastinum. On reassessment patient is feeling better, chest tightness is notably improved. She still has no pain in her chest. She briefly described mild back achiness however this is now resolved. Will reach out to [facility] for discussions of transfer. Of note D-dimer is only minimally elevated at 800 for age-adjusted comparison. 5:48 PM Case was discussed with [facility] Dr. Bush, he agrees with the plan and recommends transfer. No heparinization secondary to her Xarelto use, however she he does recommend 325 aspirin. Personal bedside echo was performed, the patient does show reduced ejection fraction of 35% roughly on my limited bedside echo. Previous comparison 6 months ago shows a much more normal ejection fraction previously. No wall motion abnormalities previously however now I see lateral wall motion abnormalities. I am still concerned for unstable angina. Repeat EKG does not show STEMI criteria and but does have some interval changes. Patient will be transferred to [facility] for further management. I have extensively reviewed the treatment plan with the patient. I have addressed all patient concerns at this time. I have also discussed the plan with the admitting physician and they agree with the current assessment and plan and have agreed to assume responsibility for the patient. All parties demonstrate verbal understanding and agreement with our assessment and plan at this time. The documentation in this chart was dictated using [employer] dictation software. Please excuse any dictation errors. At time of transfer the patient was reassessed and continued to demonstrate No signs of acute respiratory distress requiring intubation, hemodynamic instability requiring pressor support, or rapidly declining mental status. Patient's repeat troponin has returned, and it is now notably elevated at 15,846, confirming earlier suspicions of cardiac injury FINDINGS: Examination limited by patient motion artifact. MEDIASTINUM: Normal. HEART: Cardiomegaly. PULMONARY VASCULATURE: Mild prominence of the central pulmonary vasculature which may represent pulmonary venous congestion. LUNGS: No focal consolidating infiltrates are seen. Mild prominent interstitial markings are seen bilaterally. This may represent pulmonary edema or possible interstitial pneumonitis. PLEURAL SPACE: No pleural effusion or pneumothorax. BONE:Within normal limits for the patient's age. OTHER FINDINGS:Normal. IMPRESSION: 1. Cardiomegaly. Mild pulmonary venous congestion. 2. Prominent interstitial lung markings particularly in the bases which may reflect pulmonary edema or possible interstitial pneumonitis. Please correlate clinically. Quality:[facility] Health Related Social Needs: No Data to Display Critical Care Time Critical Care Time Critical Care Time: Yes Total Critical Care Time: 90 Attestation: Upon my evaluation, this patient had a high probability of imminent or life- threatening deterioration, which required my direct attention, intervention, and personal management. I have personally provided 45 minutes of critical care time exclusive of time spent on separately billable procedures. Time includes review of laboratory data, radiology results, discussion with consultants, and monitoring for potential decompensation. Interventions were performed as documented. PFSH All Active Problems (Updated 10/06/23 @ 17:50 by Jakob Matthew DO) Acute non-ST elevation myocardial infarction (NSTEMI) (Acute) Chronic kidney disease (Chronic) Hypertensive emergency (Acute) History of total left knee replacement (Acute) Other B-complex deficiencies (Acute) Generalized osteoarthritis (Acute) Vitamin D deficiency (Acute) Tremor (Acute) essential Chronic rhinitis (Acute) Constipation (Acute) Degenerative arthritis of hand (Acute) bilateral Upper back pain (Acute) Bilateral leg edema (Acute) Tricuspid valve disease (Acute) (HFpEF) heart failure with preserved ejection fraction (Acute) Prediabetes (Acute) HLD (hyperlipidemia) (Acute) HTN (hypertension) (Chronic) Mild tricuspid regurgitation (Acute) DJD (degenerative joint disease), lumbar (Acute) Atherosclerosis of aorta (Acute) Spinal stenosis at L4-L5 level (Acute) Severe Compression fracture of L5 vertebra (Acute) Noted on CT scan 10/02 Compression fracture of L4 vertebra (Acute) Noted on CT scan 08/2022 Nausea and vomiting (Acute) Upper abdominal pain, unspecified (Acute) Medical History (Updated 10/06/23 @ 17:50 by Jakob Matthew DO) History of adenomatous polyp of colon Hx of deep venous thrombosis Ovarian cancer Cancer of right ureter stage 3 Anemia Pulmonary embolism Stage 3 chronic kidney disease Obesity GERD (gastroesophageal reflux disease) Ventral hernia Dehydration Neutropenia drug induced IT band syndrome Actinic keratosis Seborrheic keratoses Osteopenia Breast cancer, stage 1 Benign essential tremor BRCA2 positive Incisional hernia H/O primary malignant neoplasm of urinary bladder H/O ovarian cancer H/O renal cell cancer Surgical History (Updated 04/10/23 @ 09:29 by Aaron Guardado RN) Hx of bilateral mastectomy H/O right nephrectomy Right, with partial uretectomy, Dr Ariel Do History of bowel resection partial, unknown date History of appendectomy unknown date S/P recurrent ventral herniorrhaphy (07/17/18) Dr Michael Carroll, [facility] S/P TKR (total knee replacement) S/P hysterectomy with oophorectomy H/O partial cystectomy Status post cataract extraction and insertion of intraocular lens of right eye (04/23/18) Status post cataract extraction and insertion of intraocular lens of left eye (04/09/18) Social History Smoking/Tobacco Use Status: Never Smoking risk assessment performed?: Yes Alcohol Intake: never Drug use: Never Substance use type: does not use Current gender identity: female Do you feel safe at home: Yes Do you feel safe in your relationship?: Yes POCUS Exam (ED) Limited Cardiac Exam DATE OF EXAM: 10/06/23 TIME OF EXAM: 16:00 PROVIDER THAT PERFORMED THE STUDY: Jakob Matthew IS THIS A REPEAT EXAM DURING THIS ENCOUNTER: no REASON FOR EXAM: Chest pain VISUALIZED STRUCTURES: Left atrium, Left ventricle, Right ventricle and Interventricular septum VIEW OBTAINED: Parasternal long-axis PERTINENT FINDINGS/IMPRESSION: LV dysfunction DIFFERENTIAL DIAGNOSES: Left ventricular dysfunction with wall motion abnormalities, ejection fraction appears reduced around 30%. Exam complete
[2023-10-06 14:44] LABS: Abs Immature Grans 0.03 10^3/uL (0.0-0.06); Absolute Basophil Count 0.02 10^3/uL (0.0-0.2); Absolute Eosinophil Count 0.13 10^3/uL (0.0-0.7); Absolute Lymphocyte Count 2.51 10^3/uL (1.2-3.4); Absolute Monocyte Count 0.52 10^3/uL (0.1-0.8); Absolute Neutrophil Count 3.14 10^3/uL (1.2-6.7); Basophils % 0.3; HGB 10.7 g/dL (11.2-15.7); Immature Grans % 0.5; Lymphocytes % 39.5; MCH 24.4 pg (27.0-33.0); MCHC 29.7 % (32.0-36.0); MCV 82 fL (80-95); MPV 10.1 fL (8.0-11.0); Monocytes % 8.2; Neutrophils % 49.5; Platelet Count 268 10^3/uL (130-400); RBC 4.39 10^6/uL (3.93-5.22); RDW 18.9 % (11.7-14.6); RDW-SD 54.4 fL; WBC 6.35 10^3/uL (4.4-10.8)
--- NOTE | 2023-10-06 14:55 | DI.RAD_ITS ---
Exam(s) XR PORTABLE CHEST AP EXAM: XR PORTABLE CHEST AP CLINICAL HISTORY: chest tightness TECHNIQUE: 2D digital imaging was performed of the chest. One image was obtained. An AP view was ob tained. COMPARISON: CR,XR XR PORTABLE CHEST AP from 10/08/2022 CR,XR XR CHEST 1V IN DI DEPT from 08/14/2023 FINDINGS: Examination limited by patient motion artifact. MEDIASTINUM: Normal. HEART: Cardiomegaly. PULMONARY VASCULATURE: Mild prominence of the central pulmonary vasculature which may represent pulmo nary venous congestion. LUNGS: No focal consolidating infiltrates are seen. Mild prominent interstitial markings are seen bi laterally. This may represent pulmonary edema or possible interstitial pneumonitis. PLEURAL SPACE: No pleural effusion or pneumothorax. BONE:Within normal limits for the patient's age. OTHER FINDINGS:Normal. IMPRESSION: 1. Cardiomegaly. Mild pulmonary venous congestion. 2. Prominent interstitial lung markings particularly in the bases which may reflect pulmonary edema o r possible interstitial pneumonitis. Please correlate clinically. DATA REPOSITORY: RADIATION DOSE DELIVERED:
[2023-10-06 14:57] LABS: INR 1.3 (0.9-1.1); PTT Activated 37.7 sec (23.6-32.8); Prothrombin Time 12.5 sec (9.1-11.1)
[2023-10-06] MEDS: nitroGLYcerin 0.4 MG TAB SL (15:12)
[2023-10-06 15:17] LABS: ALT 19 U/L (14-59); AST 18 U/L (15-37); Alkaline Phosphatase 99 U/L (46-116); Anion Gap 8.6 mmol/L (3-11); BUN 23 mg/dL (7-18); Bilirubin, Total 0.2 mg/dL (0.2-1.0); CO2 27.4 mmol/L (21.0-32.0); CREATININE 1.4 mg/dL (0.55-1.02); Calcium 8.5 mg/dL (8.5-10.1); Chloride 106 mmol/L (98-107); Estimated GFR 38.03 (mL/min/1.73m2); Glucose 167 mg/dL (74-106); Lipase 23 U/L (16-77); NT-proBNP 1349 pg/mL (<300); Potassium 3.8 mmol/L (3.5-5.1); Sodium 142 mmol/L (136-145); Total Protein 6.5 g/dL (6.4-8.2)
[2023-10-06 15:20] LABS: Troponin I 64 ng/L (< or =60)
[2023-10-06] MEDS: nitroGLYcerin in D5W 50 MG/250 ML BTL 30 MG IV (15:44)
--- NOTE | 2023-10-06 16:30 | RT.EKG_ITS ---
APPROVED REPORT Exam: Resting ECG Reason for Exam: chest pain Patient Location: E HR:58 bpm ECG Measurements Heart Rate 58 AXIS MS 189 P 70 QRSd 91 QRS 53 QT 445 T 74 QTc 436 Conclusion Sinus bradycardia...rate< 60 Probable left atrial enlargement...P >50mS, <-0.10mV V1 Left ventricular hypertrophy...multiple voltage criteria Physician: no stemi, slight elevation in V1-3, less than 1mm. Does not meet stemi criterion
[2023-10-06] MEDS: Aspirin 81 MG CHEW 324 MG PO (17:15)
[2023-10-06 17:44] LABS: Troponin I 15846 ng/L (< or =60)
[2023-10-06 17:47] LABS: D-Dimer 831 ng/mlFEU (<500)
== END 2023-10-06 18:16 | disposition short-term general hospital (02) ==
PROVIDERS: Emergency Provider Student in an Organized Health Care Education/Training Program; PCP Family Medicine
DX: I16.0 Hypertensive urgency (principal); I13.0 Hypertensive heart and chronic kidney disease with heart failure and stage 1 through stage 4 chronic kidney disease, or unspecified chronic kidney disease; N18.30 Chronic kidney disease, stage 3 unspecified; I50.32 Chronic diastolic (congestive) heart failure; I21.4 Non-ST elevation (NSTEMI) myocardial infarction; E78.5 Hyperlipidemia, unspecified; Z79.01 Long term (current) use of anticoagulants; Z86.711 Personal history of pulmonary embolism; Z86.718 Personal history of other venous thrombosis and embolism
CPT/HCPCS: 80053; 83690; 93005; 93308; 96365; 96366; 96374; 99285; 71045; 83880; 84484; 85025; 85379; 85610; 85730; 93010; J1756; J2305

== ENCOUNTER 2023-10-19 16:12 | Outpatient (REF) | payer MEDICARE, OTHER, SELFPAY ==
[2023-10-19 15:27] LABS: Anion Gap 8.1 mmol/L (3-11); BUN 39 mg/dL (7-18); CO2 29.9 mmol/L (21.0-32.0); CREATININE 1.7 mg/dL (0.55-1.02); Calcium 9.3 mg/dL (8.5-10.1); Chloride 104 mmol/L (98-107); Estimated GFR 30.13 (mL/min/1.73m2); Glucose 108 mg/dL (74-106); Potassium 4.1 mmol/L (3.5-5.1); Sodium 142 mmol/L (136-145)
== END 2023-10-19 16:13 | disposition home or self-care (01) ==
LOC: NCHCN 16:12
PROVIDERS: PCP Family Medicine; Visit Provider Family Medicine
DX: Z51.81 Encounter for therapeutic drug level monitoring (principal)
CPT/HCPCS: 80048

== ENCOUNTER 2023-12-07 09:29 | Outpatient (CLI) | payer MEDICARE, OTHER, SELFPAY ==
--- NOTE | 2023-12-07 09:15 | RT.EKG_ITS ---
APPROVED REPORT Exam: Resting ECG Reason for Exam: cardiac evaluation Patient Location: O HR:65 bpm ECG Measurements Heart Rate 65 AXIS UT 198 P 41 QRSd 99 QRS -15 QT 397 T 53 QTc 413 Conclusion Sinus rhythm...normal P axis, V-rate 50- 99 Probable left atrial enlargement...P >50mS, <-0.10mV V1 Otherwise normal ECG
== END 2023-12-07 09:30 | disposition home or self-care (01) ==
LOC: DI.CARD 09:29
PROVIDERS: PCP Family Medicine; Visit Provider Internal Medicine Cardiovascular Disease
DX: I10 Essential (primary) hypertension (principal); I50.30 Unspecified diastolic (congestive) heart failure; I07.1 Rheumatic tricuspid insufficiency; I07.9 Rheumatic tricuspid valve disease, unspecified; I70.0 Atherosclerosis of aorta; I25.10 Atherosclerotic heart disease of native coronary artery without angina pectoris; E78.5 Hyperlipidemia, unspecified
CPT/HCPCS: 93010

== ENCOUNTER → 2023-12-07 09:48 | Outpatient (BNVA) | payer MEDICARE, OTHER, SELFPAY | PROVIDERS: PCP Family Medicine; Referring Provider Family Medicine; Visit Provider Internal Medicine Cardiovascular Disease | DX: I25.10 Atherosclerotic heart disease of native coronary artery without angina pectoris (principal); E78.5 Hyperlipidemia, unspecified | CPT/HCPCS: 93005; 99214 ==

== ENCOUNTER 2023-12-11 16:07 | Outpatient (REF) | payer MEDICARE, OTHER, SELFPAY ==
[2023-12-11 16:35] LABS: HCT 34.6 % (36.0-46.0); MCH 27.9 pg (27.0-33.0); MCHC 31.8 % (32.0-36.0); MCV 88 fL (80-95); MPV 11.6 fL (8.0-11.0); Platelet Count 215 10^3/uL (130-400); RBC 3.94 10^6/uL (3.93-5.22); RDW 19.3 % (11.7-14.6); RDW-SD 62.1 fL; WBC 5.09 10^3/uL (4.4-10.8)
[2023-12-11 17:15] LABS: Anion Gap 8.3 mmol/L (3-11); BUN 31 mg/dL (7-18); CO2 30.7 mmol/L (21.0-32.0); CREATININE 1.9 mg/dL (0.55-1.02); Calcium 9.2 mg/dL (8.5-10.1); Chloride 104 mmol/L (98-107); Ferritin 51 ng/mL (8-252); Glucose 115 mg/dL (74-106); Potassium 4.1 mmol/L (3.5-5.1); Sodium 143 mmol/L (136-145); Vitamin B12 218 pg/mL (193-986)
== END 2023-12-11 16:08 | disposition home or self-care (01) ==
LOC: NCHCN 16:07
PROVIDERS: PCP Family Medicine; Visit Provider Family Medicine
DX: N18.30 Chronic kidney disease, stage 3 unspecified (principal); E53.8 Deficiency of other specified B group vitamins; D50.9 Iron deficiency anemia, unspecified; R73.03 Prediabetes
CPT/HCPCS: 80048; 85027; 82607; 82728; 83036

== ENCOUNTER 2024-01-11 13:14 | Outpatient (CLI) | payer MEDICARE, OTHER, SELFPAY ==
--- OUTSIDE RECORDS SUMMARY | 2024-01-11 13:16 | XMS_ITS ---
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 BRCA2 positive 08/05/2010 Overview (08/17/2010): [address] in BRCA2. She has had bilateral mastectomies and bilateral oophorectomies. Breast cancer, stage 1 05/16/2006 Overview (07/23/2011): Ms. Aguiar presented April 28, 2006 on screening mammography with a question of a mass in the retroareolar left breast. There was a stable fibroglandular pattern without significant change on the right. Additional left-sided views on May 10 showed a persistent ill-defined 10 mm mass at 12:00, 1.5 cm posterior to the nipple. An ultrasound showed an irregular 1.0 x 0.9 x 0.8 cm hypoechoic mass. An ultrasound-guided biopsy on May 16 found an invasive ductal carcinoma and ductal carcinoma in situ. On June 02, she underwent bilateral mastectomies with bilateral sentinel node dissections. On the left, there was a 1.0 cm high grade invasive ductal carcinoma with minor high grade DCIS. There was no lymphovascular invasion. Estrogen and progesterone receptors were positive, and Her-2 was unamplified. One of two sentinel nodes was positive by H&E and by IHC for single cells and clusters of 2-3 cells involving an area of 2 mm of the node. There was benign tissue on the right, and two right-sided sentinel nodes were negative. We met on June 15, 2006, she declined adjuvant chemotherapy, and she elected to be treated with anastrozole. She took five years of anastrozole between June 2006 and June 2011. Benign essential tremor Hypertension Stage III Ovarian cancer Overview (03/11/2012): in 1994, treated with a JOANN/BSO, appendectomy, partial bowel resection, and chemotherapy Current Oncology Plans No current plan information found. Past Plans ADULT TREATMENT Plan Name Start Date Discontinue Date Treatment Medications Discontinue Reason Plan Provider Cycles DH BCN AMB ONC -M[facility]AN[facility]ER - CISplatin / GEMcitabine 12/28/19 17 03/21/2017 CISplatin (Platinol) in sodium chloride 0.9% 250 mL infusionGEMcitabine (Gemzar) in sodium chloride 0.9% 150 mL infusion Patient Preference Danny Gorodn MD 3 of 4 cycles started Radiation Treatments * No radiation treatments are documented for this patient in [facility]. Treatments may have been administered in another system.
--- OUTSIDE RECORDS SUMMARY | 2024-01-11 13:16 | XMS_ITS | Data Portability ---
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 Education was provided on healthy nutrition, including a diet rich in fruits and vegetables, minimizing simple carbohydrates, salt, and saturated fats. Encouraged regular cardiovascular exercise such as walking at least 30 minutes daily, 5 times per week. Emphasized preventive health measures and educated pt on fall prevention and community-based lifestyle interventions to help reduce health risks and promote healthy living. Personalized prevention plan (PPP) completed and reviewed with patient. Patient was given written copy of PPP at conclusion of visit, detailing prior screening and 5-10 year future screening plan including: screenings for breast cancer and colorectal cancer, immunizations, and other age appropriate screenings consistent with USPSTF and ACIP guidelines Not available 09/17/2023 15:23:09 10/16/2023 10/16/2023 The total time devoted to today's encounter, including both the jxxl-ih-frak time with the patient and/or family/caregiver and ddq-wbxk-im-face time I personally spent is 34 minutes. Not available 10/16/2023 18:33:14 Plan of Treatment Reminders Order Date Submit Date Provider Last Modified By Organization Details Last Modified Time Details Appointments Follow Up 20 2023 10:00A Allison Hidalgo Not available Not available Not available Lab HbA1c (hemoglob in A1c), blood - 1 tiger, 2 lavenders 2023 [facility] (Registration ), [address] [place] [address] [place], [address], 09/19/2023 19:43:00 BMP, serum or plasma - 1 tiger, 2 lavenders 2023 [facility] (Registration ), [address] [place] [address] [place], [address], 09/19/2023 19:42:47 vitamin B12, serum - 1 tiger, 2 lavenders 2023 024 [facility] (Registration ), [address] [place] [address] [place], [address], 09/19/2023 19:42:25 CBC - 1 tiger, 2 lavenders 2023 024 [facility] (Registration ), [address] [place] [address] [place], [address], 09/18/2023 18:37:42 ferritin, serum or plasma - 1 tiger, 2 lavenders 2023 024 [facility] (Registration ), [address] [place] [address] [place], [address], 09/19/2023 19:42:36 BMP, serum or plasma 2023 024 [facility] (Registration ), [address] [place] [address] [place], [address], 10/26/2023 09:38:27 BMP, serum or plasma 2023 024 [facility] (Registration ), [address] [place] [address] [place], [address], 10/26/2023 09:38:27 BMP, serum or plasma 2023 024 [facility] (Registration ), [address] [place] [address] [place], [address], 12/11/2023 17:54:43 vitamin B12, serum [email or web address] [place] [address] Laboratory (Registration ), [address] [place] [address] [place], [address], 12/18/2023 09:16:38 BMP, serum or plasma 2023 024 [facility] (Registration ), [address] [place] [address] [place], [address], 12/11/2023 17:54:43 HbA1c (hemoglob in A1c), blood 2023 024 [facility] (Registration ), [address] [place] [address] [place], [address], 12/11/2023 17:52:31 CBC 2023 024 [facility] (Registration ), [address] [place] [address] [place], [address], 12/11/2023 16:47:40 ferritin, serum or plasma 2023 024 [facility] (Registration ), [address] [place] [address] [place], [address], 12/11/2023 18:07:20 Referral cardiolog ist referral - Recent NSTEMI in the context of hypertens fabi crisis- perhaps related to venofer infusion for her iron deficienc y anemia. Bed side ECHO showed decreased EF, she may benefit at some point in full ECHO. On jardiance , carvedilo l and furosemid e and losartan. Saw cardiolog ist at [facility] who suggested local cardiolog y follow up. 2023 RUKHSANA Hadley MD, [address] [place] [address] [place], [address], 12/18/2023 10:56:12 Procedures None recorded. Surgeries None recorded. Imaging None recorded. Medication Orders Jardiance 10 mg tablet 2023 024 [facility], [address] [place] [address], [id number], 09/18/2023 12:33:07 ondansetr on HCl 4 mg tablet 2023 024 [facility], [address] [place] [address], [address], 09/18/2023 12:35:11 atenolol 50 mg tablet 2023 024 [facility], [address] [place] [address], [address], 10/13/2023 08:39:01 Xarelto 10 mg tablet 2023 024 [facility], [address] [place] [address], [address], 09/18/2023 08:54:16 furosemid e 40 mg tablet 2023 024 [facility], [address] [place] [address], [address], 09/18/2023 12:24:09 Nystop 100,000 unit/gram topical powder 2023 024 [facility], [address] [place] [address], [address], 09/18/2023 13:38:28 simvastat in 10 mg tablet 2023 024 [email or web address] [facility], [address] [place] [address], [id number], 12/08/2023 11:58:16 cyanocoba janae (vit B-12) 1,000 mcg tablet 2023 024 [facility], [address] [place] [address], [id number], 11/17/2023 13:22:10 Vitamin D3 50 mcg (2,000 unit) capsule 2023 024 [facility], [address] [place], [address], 09/18/2023 12:33:07 Patient TargetsNo targets recorded. Patient Instructions Encounter Date Encounter Id Patient Instructions Last Modified By Organization Details Last Modified Time 09/18/2023 [id number] diet Not available 09/17 08:52:19 exercise Not available 2023 08:52:19 Discussed and explained advance directives such as standard forms to the {{patient* caregi andrew patient and caregiver}}. Face to face discussion lasted for a duration of 2 minutes. is DPOA. Not available 09/18/2023 08:42:06 Reason for Referral Weaver Dobby Loom Referral for Co ronary atherosclerosis Recent NSTEMI in the context of hypertensive crisis- perhaps related to venofer infusion for her iron deficiency anemia. Bed side ECHO showed decreased EF, she may benefit at some point in full ECHO. On jardiance, carvedilol and furosemide and losartan. 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 Referring Physician: Dulce Hidalgo, Family Medicine, Encounter Date: 11/17/2023 Results Created Date Observation Date Name Description Value Unit Range Abnormal Flag LastModifiedBy Organization Detail LastModifiedTime 09/18/1909/18/2023 COMPL ETE BLOOD COUNT NO DIFF WBC 5.65 10_3/ uL 4.4-10 .8 normal Not Available [facility] [address] [facility] [place], [address] 09/18/2023 18:37:42 09/18/19 24 09/18/2023 COMPL ETE BLOOD COUNT NO DIFF RBC 4.20 10_6/ uL 3.93-5 .22 normal Not Available [facility] [address] [facility] [place], [address] 09/18/2023 18:37:42 09/18/19 24 09/18/2023 COMPL ETE BLOOD COUNT NO DIFF HGB 10.1 g/dL 11.2-1 5.7 low Not Available [address] [place], [address] 09/18/2023 18:37:42 09/18/19 24 09/18/2023 COMPL ETE BLOOD COUNT NO DIFF HCT 33.3 % 36.0-4 6.0 low Not Available [address] [place], [address] 09/18/2023 18:37:42 09/18/19 24 09/18/2023 COMPL ETE BLOOD COUNT NO DIFF MCV 79 fL 80-95 low Not Available [address] [place], [address] 09/18/2023 18:37:42 09/18/19 24 09/18/2023 COMPL ETE BLOOD COUNT NO DIFF MCH 24.0 pg 27.0-3 3.0 low Not Available [address] [place], [address] 09/18/2023 18:37:42 09/18/19 24 09/18/2023 COMPL ETE BLOOD COUNT NO DIFF MCHC 30.3 % 32.0-3 6.0 low Not Available [address] [place], [address] 09/18/2023 18:37:42 09/18/19 24 09/18/2023 COMPL ETE BLOOD COUNT NO DIFF RDW 17.4 % 11.7-1 4.6 high Not Available [address] [place], [address] 09/18/2023 18:37:42 09/18/19 24 09/18/2023 COMPL ETE BLOOD COUNT NO DIFF platelet count 277 10_3/ uL 130-40 0 normal Not Available [address] [place], [address] 09/18/2023 18:37:42 09/18/19 24 09/18/2023 COMPL ETE BLOOD COUNT NO DIFF MPV 11.4 fL 8.0-11 .0 high Not Available [address] [place], [address] 09/18/2023 18:37:42 09/18/19 24 09/18/2023 HEMOG LOBIN A1C hemoglobin A1C 6.5 % <5.7 high Not Available [facility] (Registration ) [address] [place] [address] [place], [address], 09/18/2023 18:48:44 09/18/19 24 09/18/2023 LASIC METAB OLIC PANEL calcium 9.0 mg/dL 8.5-10 .1 normal Not Available [facility] (Registration ) [address] [place] [address] [place], [address], 09/18/2023 19:04:45 09/18/19 24 09/18/2023 LASIC METAB OLIC PANEL glucose 108 mg/dL 74-106 high Not Available [facility] (Registration ) [address] [place] [address] [place], [address], 09/18/2023 19:04:45 09/18/19 24 09/18/2023 LASIC METAB OLIC PANEL BUN 26 mg/dL 7-18 high Not Available [facility] (Registration ) [address] [place] [address] [place], [address], 09/18/2023 19:04:45 09/18/19 24 09/18/2023 LASIC METAB OLIC PANEL creatinine 1.3 mg/dL 0.55-1 .02 high Not Available [facility] (Registration ) [address] [place] [address] [place], [address], 09/18/2023 19:04:45 09/18/19 24 09/18/2023 LASIC METAB OLIC PANEL estimated GFR 41.57 mL/min /1.73m 2 Not Available [facility] (Registration ) [address] [place] [address] [place], [address], 09/18/2023 19:04:45 09/18/19 24 09/18/2023 LASIC METAB OLIC PANEL sodium 143 mmol/ L 136-14 5 normal Not Available [facility] (Registration ) [address] [place] [address] [place], [address], 09/18/2023 19:04:45 09/18/19 24 09/18/2023 LASIC METAB OLIC PANEL potassium 4.2 mmol/ L 3.5-5. 1 normal Not Available [facility] (Registration ) [address] [place] [address] [place], [address], 09/18/2023 19:04:45 09/18/19 24 09/18/2023 LASIC METAB OLIC PANEL chloride 106 mmol/ L 98-107 normal Not Available [facility] (Registration ) [address] [place] [address] [place], [address], 09/18/2023 19:04:45 09/18/19 24 09/18/2023 LASIC METAB OLIC PANEL CO2 29.1 mmol/ L 21.0-3 2.0 normal Not Available [facility] (Registration ) [address] [place] [address] [place], [address], 09/18/2023 19:04:45 09/18/19 24 09/18/2023 LASIC METAB OLIC PANEL anion gap 7.9 mmol/ L 3-11 normal Not Available [facility] (Registration ) [address] [place] [address] [place], [address], 09/18/2023 19:04:45 09/18/19 24 09/18/2023 BREE TIN ferritin 15 NG/mL 8-252 normal Not Available [facility] (Registration ) [address] [place] [address] [place], [address], 09/18/2023 19:04:45 09/18/19 24 09/18/2023 VITAM IN B12 vitamin B12 221 pg/mL 193-98 6 normal Not Available [facility] (Registration ) [address] [place] [address] [place], [address], 09/18/2023 19:04:46 10/06/19 24 10/06/2023 COMPL ETE BLOOD COUNT W/DIF F WBC 6.35 10_3/ uL 4.4-10 .8 normal Not Available [address] [place], [address] 10/06/2023 14:47:11 10/06/19 24 10/06/2023 COMPL ETE BLOOD COUNT W/DIF F RBC 4.39 10_6/ uL 3.93-5 .22 normal Not Available [address] [place], [address] 10/06/2023 14:47:11 10/06/19 24 10/06/2023 COMPL ETE BLOOD COUNT W/DIF F HGB 10.7 g/dL 11.2-1 5.7 low Not Available [address] [place], [address] 10/06/2023 14:47:11 10/06/19 24 10/06/2023 COMPL ETE BLOOD COUNT W/DIF F HCT 36.0 % 36.0-4 6.0 normal Not Available [address] [place], [address] 10/06/2023 14:47:11 10/06/19 24 10/06/2023 COMPL ETE BLOOD COUNT W/DIF F MCV 82 fL 80-95 normal Not Available [address] [place], [address] 10/06/2023 14:47:11 10/06/19 24 10/06/2023 COMPL ETE BLOOD COUNT W/DIF F MCH 24.4 pg 27.0-3 3.0 low Not Available [address] [place], [address] 10/06/2023 14:47:11 10/06/19 24 10/06/2023 COMPL ETE BLOOD COUNT W/DIF F MCHC 29.7 % 32.0-3 6.0 low Not Available [address] [place], [address] 10/06/2023 14:47:11 10/06/19 24 10/06/2023 COMPL ETE BLOOD COUNT W/DIF F RDW 18.9 % 11.7-1 4.6 high Not Available [address] [place], [address] 10/06/2023 14:47:11 10/06/19 24 10/06/2023 COMPL ETE BLOOD COUNT W/DIF F platelet count 268 10_3/ uL 130-40 0 normal Not Available [address] [place], [address] 10/06/2023 14:47:11 10/06/19 24 10/06/2023 COMPL ETE BLOOD COUNT W/DIF F MPV 10.1 fL 8.0-11 .0 normal Not Available [address] [place], [address] 10/06/2023 14:47:11 10/06/19 24 10/06/2023 COMPL ETE BLOOD COUNT W/DIF F neutrophils % 49.5 Not Available [address] [place], [address] 10/06/2023 14:47:11 10/06/19 24 10/06/2023 COMPL ETE BLOOD COUNT W/DIF F lymphocytes % 39.5 Not Available [address] [place], [address] 10/06/2023 14:47:11 10/06/19 24 10/06/2023 COMPL ETE BLOOD COUNT W/DIF F monocytes % 8.2 Not Available [address] [place], [address] 10/06/2023 14:47:11 10/06/19 24 10/06/2023 COMPL ETE BLOOD COUNT W/DIF F eosinophils % 2.0 Not Available [address] [place], [address] 10/06/2023 14:47:11 10/06/19 24 10/06/2023 COMPL ETE BLOOD COUNT W/DIF F basophils % 0.3 Not Available [address] [place], [address] 10/06/2023 14:47:11 10/06/19 24 10/06/2023 COMPL ETE BLOOD COUNT W/DIF F immature grans % 0.5 Not Available [address] [place], [address] 10/06/2023 14:47:11 10/06/19 24 10/06/2023 COMPL ETE BLOOD COUNT W/DIF F nucleated RBC 0.0 % 0.0-0. 3 normal Not Available [address] [place], [address] 10/06/2023 14:47:11 10/06/19 24 10/06/2023 COMPL ETE BLOOD COUNT W/DIF F absolute neutrophil count 3.14 10_3/ uL 1.2-6. 7 normal Not Available [address] [place], [address] 10/06/2023 14:47:11 10/06/19 24 10/06/2023 COMPL ETE BLOOD COUNT W/DIF F absolute lymphocyte count 2.51 10_3/ uL 1.2-3. 4 normal Not Available [address] [place], [address] 10/06/2023 14:47:11 10/06/19 24 10/06/2023 COMPL ETE BLOOD COUNT W/DIF F absolute monocyte count 0.52 10_3/ uL 0.1-0. 8 normal Not Available [address] [place], [address] 10/06/2023 14:47:11 10/06/19 24 10/06/2023 COMPL ETE BLOOD COUNT W/DIF F absolute eosinophil count 0.13 10_3/ uL 0.0-0. 7 normal Not Available [address] [place], [address] 10/06/2023 14:47:11 10/06/19 24 10/06/2023 COMPL ETE BLOOD COUNT W/DIF F absolute basophil count 0.02 10_3/ uL 0.0-0. 2 normal Not Available [address] [place], [address] 10/06/2023 14:47:11 10/06/19 24 10/06/2023 PROTH ROMBI N TIME prothrombin time 12.5 sec 9.1-11 .1 high Not Available [address] [place], [address] 10/06/2023 15:02:10 10/06/19 24 10/06/2023 PROTH ROMBI N TIME INR 1.3 0.9-1. 1 high Not Available [address] [place], [address] 10/06/2023 15:02:10 10/06/19 24 10/06/2023 PTT ACTIV ATED PTT activated 37.7 sec 23.6-3 2.8 high Not Available [address] [place], [address] 10/06/2023 15:02:11 10/06/19 24 10/06/2023 COMPR EHENS FABI METAB OLIC PANEL calcium 8.5 mg/dL 8.5-10 .1 normal Not Available [address] [place], [address] 10/06/2023 15:22:16 10/06/19 24 10/06/2023 COMPR EHENS FABI METAB OLIC PANEL glucose 167 mg/dL 74-106 high Not Available [address] [place], [address] 10/06/2023 15:22:16 10/06/19 24 10/06/2023 COMPR EHENS FABI METAB OLIC PANEL BUN 23 mg/dL 7-18 high Not Available [address] [place], [address] 10/06/2023 15:22:16 10/06/19 24 10/06/2023 COMPR EHENS FABI METAB OLIC PANEL creatinine 1.4 mg/dL 0.55-1 .02 high Not Available [address] [place], [address] 10/06/2023 15:22:16 10/06/19 24 10/06/2023 COMPR EHENS FABI METAB OLIC PANEL estimated GFR 38.03 mL/min /1.73m 2 Not Available [address] [place], [address] 10/06/2023 15:22:16 10/06/19 24 10/06/2023 COMPR EHENS FABI METAB OLIC PANEL total protein 6.5 g/dL 6.4-8. 2 normal Not Available [address] [place], [address] 10/06/2023 15:22:16 10/06/19 24 10/06/2023 COMPR EHENS FABI METAB OLIC PANEL albumin 3.0 g/dL 3.4-5. 0 low Not Available [address] [place], [address] 10/06/2023 15:22:16 10/06/19 24 10/06/2023 COMPR EHENS FABI METAB OLIC PANEL bilirubin, total 0.2 mg/dL 0.2-1. 0 normal Not Available [address] [place], [address] 10/06/2023 15:22:16 10/06/19 24 10/06/2023 COMPR EHENS FABI METAB OLIC PANEL alk phos 99 U/L 46-116 normal Not Available [address] [place], [address] 10/06/2023 15:22:16 10/06/19 24 10/06/2023 COMPR EHENS FABI METAB OLIC PANEL sodium 142 mmol/ L 136-14 5 normal Not Available [address] [place], [address] 10/06/2023 15:22:16 10/06/19 24 10/06/2023 COMPR EHENS FABI METAB OLIC PANEL potassium 3.8 mmol/ L 3.5-5. 1 normal Not Available [address] [place], [address] 10/06/2023 15:22:16 10/06/19 24 10/06/2023 COMPR EHENS FABI METAB OLIC PANEL chloride 106 mmol/ L 98-107 normal Not Available [address] [place], [address] 10/06/2023 15:22:16 10/06/19 24 10/06/2023 COMPR EHENS FABI METAB OLIC PANEL CO2 27.4 mmol/ L 21.0-3 2.0 normal Not Available [address] [place], [address] 10/06/2023 15:22:16 10/06/19 24 10/06/2023 COMPR EHENS FABI METAB OLIC PANEL anion gap 8.6 mmol/ L 3-11 normal Not Available [address] [place], [address] 10/06/2023 15:22:16 10/06/19 24 10/06/2023 COMPR EHENS FABI METAB OLIC PANEL AST 18 U/L 15-37 normal Not Available [address] [place], [address] 10/06/2023 15:22:16 10/06/19 24 10/06/2023 COMPR EHENS FABI METAB OLIC PANEL ALT 19 U/L 14-59 normal Not Available [address] [place], [address] 10/06/2023 15:22:16 10/06/19 24 10/06/2023 LIPAS E lipase 23 U/L 16-77 normal Not Available [address] [place], [address] 10/06/2023 15:22:17 10/06/19 24 10/06/2023 TROPO JUDE I troponin I 64 NG/L < or =60 panic high Not Available [address] [place], [address] 10/06/2023 15:22:17 10/06/19 24 10/06/2023 NT-SD OBNP nt-probnp 1349 pg/mL <300 high Not Available [address] [place], [address] 10/06/2023 15:22:18 10/06/19 24 10/06/2023 TROPO JUDE [place] troponin I [address] NG/L < or =60 panic high Not Available [address] [place], [address] 10/06/2023 17:46:43 10/06/19 24 10/06/2023 D-DIM ER D-dimer 831 NG/ml feu <500 high Not Available [address] [place], [address] 10/06/2023 17:48:43 10/19/19 24 10/19/2023 BASIC METAB OLIC PANEL calcium 9.3 mg/dL 8.5-10 .1 normal Not Available [facility] (Registration ) [address] [place] [address] [place], [address], 10/19/2023 15:32:08 10/19/19 24 10/19/2023 BASIC METAB OLIC PANEL glucose 108 mg/dL 74-106 high Not Available [facility] (Registration ) [address] [place] [address] [place], [address], 10/19/2023 15:32:08 10/19/19 24 10/19/2023 BASIC METAB OLIC PANEL BUN 39 mg/dL 7-18 high Not Available [facility] (Registration ) [address] [place] [address] [place], [address], 10/19/2023 15:32:08 10/19/19 24 10/19/2023 BASIC METAB OLIC PANEL creatinine 1.7 mg/dL 0.55-1 .02 high Not Available [facility] (Registration ) [address] [place] [address] [place], [address], 10/19/2023 15:32:08 10/19/19 24 10/19/2023 BASIC METAB OLIC PANEL estimated GFR 30.13 mL/min /1.73m 2 Not Available [facility] (Registration ) [address] [place] [address] [place], [address], 10/19/2023 15:32:08 10/19/19 24 10/19/2023 BASIC METAB OLIC PANEL sodium 142 mmol/ L 136-14 5 normal Not Available [facility] (Registration ) [address] [place] [address] [place], [address], 10/19/2023 15:32:08 10/19/19 24 10/19/2023 BASIC METAB OLIC PANEL potassium 4.1 mmol/ L 3.5-5. 1 normal Not Available [facility] (Registration ) [address] [place] [address] [place], [address], 10/19/2023 15:32:08 10/19/19 24 10/19/2023 BASIC METAB OLIC PANEL chloride 104 mmol/ L 98-107 normal Not Available [facility] (Registration ) [address] [place] [address] [place], [address], 10/19/2023 15:32:08 10/19/19 24 10/19/2023 BASIC METAB OLIC PANEL CO2 29.9 mmol/ L 21.0-3 2.0 normal Not Available [facility] (Registration ) [address] [place] [address] [place], [address], 10/19/2023 15:32:08 10/19/19 24 10/19/2023 BASIC METAB OLIC PANEL anion gap 8.1 mmol/ L 3-11 normal Not Available [facility] (Registration ) [address] [place] [address] [place], [address], 10/19/2023 15:32:08 12/11/19 24 12/11/2023 COMPL ETE BLOOD COUNT NO DIFF WBC 5.09 10_3/ uL 4.4-10 .8 normal Not Available [address] [place], [address] 12/11/2023 16:47:40 12/11/19 24 12/11/2023 COMPL ETE BLOOD COUNT NO DIFF RBC 3.94 10_6/ uL 3.93-5 .22 normal Not Available [address] [place], [address] 12/11/2023 16:47:40 12/11/19 24 12/11/2023 COMPL ETE BLOOD COUNT NO DIFF HGB 11.0 g/dL 11.2-1 5.7 low Not Available [address] [place], [address] 12/11/2023 16:47:40 12/11/19 24 12/11/2023 COMPL ETE BLOOD COUNT NO DIFF HCT 34.6 % 36.0-4 6.0 low Not Available [address] [place], [address] 12/11/2023 16:47:40 12/11/19 24 12/11/2023 COMPL ETE BLOOD COUNT NO DIFF MCV 88 fL 80-95 normal Not Available [address] [place], [address] 12/11/2023 16:47:40 12/11/19 24 12/11/2023 COMPL ETE BLOOD COUNT NO DIFF MCH 27.9 pg 27.0-3 3.0 normal Not Available [address] [place], [address] 12/11/2023 16:47:40 12/11/19 24 12/11/2023 COMPL ETE BLOOD COUNT NO DIFF MCHC 31.8 % 32.0-3 6.0 low Not Available [address] [place], [address] 12/11/2023 16:47:40 12/11/19 24 12/11/2023 COMPL ETE BLOOD COUNT NO DIFF RDW 19.3 % 11.7-1 4.6 high Not Available [address] [place], [address] 12/11/2023 16:47:40 12/11/19 24 12/11/2023 COMPL ETE BLOOD COUNT NO DIFF platelet count 215 10_3/ uL 130-40 0 normal Not Available [address] [place], [address] 12/11/2023 16:47:40 12/11/19 24 12/11/2023 COMPL ETE BLOOD COUNT NO DIFF MPV 11.6 fL 8.0-11 .0 high Not Available [address] [place], [address] 12/11/2023 16:47:40 12/11/19 24 12/11/2023 BASIC METAB OLIC PANEL calcium 9.2 mg/dL 8.5-10 .1 normal Not Available [facility] (Registration ) [address] [place] [address] [place], [address], 12/11/2023 17:17:46 12/11/19 24 12/11/2023 BASIC METAB OLIC PANEL glucose 115 mg/dL 74-106 high Not Available [facility] (Registration ) [address] [place] [address] [place], [address], 12/11/2023 17:17:46 12/11/19 24 12/11/2023 BASIC METAB OLIC PANEL BUN 31 mg/dL 7-18 high Not Available [facility] (Registration ) [address] [place] [address] [place], [address], 12/11/2023 17:17:46 12/11/19 24 12/11/2023 BASIC METAB OLIC PANEL creatinine 1.9 mg/dL 0.55-1 .02 high Not Available [facility] (Registration ) [address] [place] [address] [place], [address], 12/11/2023 17:17:46 12/11/19 24 12/11/2023 BASIC METAB OLIC PANEL estimated GFR 26.20 mL/min /1.73m 2 Not Available [facility] (Registration ) [address] [place] [address] [place], [address], 12/11/2023 17:17:46 12/11/19 24 12/11/2023 BASIC METAB OLIC PANEL sodium 143 mmol/ L 136-14 5 normal Not Available [facility] (Registration ) [address] [place] [address] [place], [address], 12/11/2023 17:17:46 12/11/19 24 12/11/2023 BASIC METAB OLIC PANEL potassium 4.1 mmol/ L 3.5-5. 1 normal Not Available [facility] (Registration ) [address] [place] [address] [place], [address], 12/11/2023 17:17:46 12/11/19 24 12/11/2023 BASIC METAB OLIC PANEL chloride 104 mmol/ L 98-107 normal Not Available [facility] (Registration ) [address] [place] [address] [place], [address], 12/11/2023 17:17:46 12/11/19 24 12/11/2023 BASIC METAB OLIC PANEL CO2 30.7 mmol/ L 21.0-3 2.0 normal Not Available [facility] (Registration ) [address] [place] [address] [place], [address], 12/11/2023 17:17:46 12/11/19 24 12/11/2023 BASIC METAB OLIC PANEL anion gap 8.3 mmol/ L 3-11 normal Not Available [facility] (Registration ) [address] [place] [address] [place], [address], 12/11/2023 17:17:46 12/11/19 24 12/11/2023 BREE TIN ferritin 51 NG/mL 8-252 normal Not Available [facility] (Registration ) [address] [place] [address] [place], [address], 12/11/2023 17:17:47 12/11/19 24 12/11/2023 VITAM IN B12 vitamin B12 218 pg/mL 193-98 6 normal Not Available [facility] (Registration ) [address] [place] [address] [place], [address], 12/11/2023 17:17:47 12/11/19 24 12/11/2023 HEMOG LOBIN A1C hemoglobin A1C 6.0 % <5.7 high Not Available [facility] (Registration ) [address] [place] [address] [place], [address], 12/11/2023 17:40:46 10/06/19 24 10/06/2023 XR, chest Patien t Name: Sonia Aguiar Unit #: [id number] Loc: ER Orderi ng Provid er: Darling Matthew DO Accoun t #: [id number] Status : PRE ER Primar y Care Provid er: Dulce Hidalgo M.D. Date of Exam: Sex: F Admiss ion Date: : 1940 Age: 82 Exam(s ) XR PORTAB LE CHEST AP EXAM: XR PORTAB LE CHEST AP CLINIC AL HISTOR Y: chest tightn ess TECHNI QUE: 2D digita l imagin g was perfor med of the chest. One image was obtain ed. An AP view was obtain ed. COMPAR JOSE M: CR,XR XR PORTAB LE CHEST AP from 2022 CR,XR XR CHEST 1V IN DI DEPT from 2023 FINDIN GS: Examin ation limite d by elli lainez motion artifa ct. MEDIAS TINUM: Normal . HEART: Cardio megaly . PULMON DAT VASCUL ATURE: Mild promin ence of the centra l pulmon dat vascul ature which may repres ent pulmon dat venous conges tion. LUNGS: No focal consol idatin g infilt rates are seen. Mild promin ent inters titial markin gs are seen bilate rally. This may repres ent pulmon dat edema or possib le inters titial pneumo nitis. PLEURA L SPACE: No pleura l effusi on or pneumo thorax . BONE:W ithin normal limits for the patien fatou's age. OTHER FINDIN GS:Nor mal. IMPRES DEVIN: 1. Cardio megaly . Mild pulmon dat venous conges tion. 2. Promin ent inters titial lung markin gs partic ularly in the bases which may reflec t pulmon dat edema or possib le inters titial pneumo nitis. Please correl ate clinic ally. DATA REPOSI TORY: RADIAT ION DOSE DELIVE RED: Ordere d By: Darling Matthew DO CC: ------ ------ ------ ------ ------ ------ ------ ------ ------ ------ ------ ------ - Dictat ed By: Vasquez Guardado M.D. 1521 1521 Transc ribed By: Vasquez Guardado 1521 This is privil eged, confid ential inform ation intend ed only for the provid er named. Any use or distri bution by any person other than this provid er is strict ly prohib ited. If you receiv e this report in error, please notify us immjohn timmons at [phone] and return the origin al report to us at the addres s above. Thank- you. [facility] [address], [place], [address] 10/06/2023 16:36:34 10/24/19 24 10/07/2023 , [facility] israel frost No observ ation record ed. [facility] [place], [address], 10/24/2023 19:12:44 Result Notes None recorded. Problems Name Status Onset Date Resolution Date Notes Provider Name and Address Organization Details Recorded Time History of malignant neoplasm of ovary Completed 199409/14/[address], [place], [address] , [facility] 4 15:03:15 Essential hypertension Active 2006 ARMOND casiano [facility] 4 09:47:55 Gastroesophag eal reflux disease without esophagitis Active 2003 ARMOND casiano, [facility] 4 09:48:07 Hyperlipidemi a Active 2003 ARMOND casiano [facility] 4 09:51:14 History of polyp of colon Completed 201109/14/[address], [place], [address] , [facility] 4 15:04:01 Osteoarthriti s Active knees and hands MD [address]ina [address], [place], [address] , [facility] 4 15:04:36 Vitamin D deficiency Active 2009 ARMOND casiano [facility]. 4 09:53:19 Essential tremor Active 1959 ARMOND casiano [facility] 4 09:48:02 Personal history of primary malignant neoplasm of breast Active 04/2006: s/p BL mastectomy, 5 years of anastrazole, no chemo MD Cristina [address], [place], [address] , [facility] 4 15:07:32 Adult health examination Active [address], [facility] [address] , [facility] 4 15:01:47 Obesity Active 2014 ARMOND casiano, [facility] 4 09:52:34 Chronic kidney disease stage 3 Active 2015 eGFR 35-40 since [address], [facility] [address] , [facility] 4 13:51:32 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 Urinalysis in the office shows some leukocyte esterase and blood. I recommended starting amoxicillin 500 mg 3 times a day, but sending her urine off to the lab, and checking some blood work. The urinalysis looks benign, so I suggested that she discontinue the amoxicillin, and instead will obtain an abdomen/pelvi c CT scan given her prior history of ovarian cancer. We will also check CEA 125. Problem Code: R10.9; Problem Code Type: ICD-10; Not Available [facility] 3 04:26:52 Primary malignant neoplasm of ureter Active 2016 ARMOND casiano, [facility] 4 09:53:00 History of thromboemboli sm Completed 201609/14/2023 DULCE HIDALGO MD [address], [place], [address] , [facility]. 4 15:06:21 Abdominal pain Completed 201706/28/2017 06/21/2017 - Comments only - Luis Martin - Likely musculoskelet al with inreased work around house. Lots of recent imaging suggests this is not related to kidney -If pain doesn't resolve in 2 weeks, call office to get kidney ultrasound and basic labs Problem Code: R10.9; Problem Code Type: ICD-10; Not Available [facility] 3 04:26:52 History of pulmonary embolus Active 2017 Fatimah casiano, [facility] 4 16:19:11 Incisional hernia Active 2017 Fatimah casiano, [facility] 4 16:19:14 Low back pain Active 2017 ARMOND casiano, [facility] 4 09:53:31 Pre-surgery evaluation Completed 201704/22/2018 03/26/2018 - Comments only - Dulce Hidalgo MD - She is medically stable for her upcoming low risk cataract surgery. Problem Code: Z01.818; Problem Code Type: ICD-10; Not Available [facility] 3 04:26:53 Chronic rhinitis Active 2017 ARMOND casiano [facility]. 4 09:46:47 Constipation Active 2018 ARMOND casiano [facility]. 4 09:46:58 Fatigue Completed 201811/26/2018 11/12/2018 - Comments only - Dulce Hidalgo MD - She does not snore, though given her weight she is certainly at risk for sleep apnea. We will start with some labs-she just had a CBC, we will check her B12 level and thyroid function. Problem Code: R53.83; Problem Code Type: ICD-10; Not Available [facility] 3 04:26:53 Prediabetes Active 2018 ARMOND casiano, [facility] 4 09:52:55 Vitamin B deficiency Active 2018 B12 DULCE HIDALGO MD [address], [place], [address] , [facility] 4 15:04:50 Iron deficiency anemia Active 2020 Intolerant of po iron due to SBO: IV venofer 01/2022 DLUCE HIDALGO MD [address], [place], [address] , [facility] 4 15:38:55 Pain in thoracic spine Active 2021 ARMOND casiano, [facility] 4 09:52:44 Nodule on toe Completed 202111/11/2021 11/05/2021 - Comments only - Elizabeth Case [employer] - Small area of localized swelling to her right lower leg, and associated with a small red rash, nontender, nonpitting, blanching. Area is nonpruritic, cool to the touch. No signs or symptoms to suggest infection, or concerns for DVT. There are several small areas of excoriation to her feet, associated with contact with sandal straps. Possible rash is associated with mild onset of stasis dermatitis, or mild superficial phlebitis. Advised compression for the next several days, elevation, could trial hot or cold therapy. Monitor closely. Area of concern outlined. Daily photograph as possible. Would expect good improvement with above treatment. Strict follow-up precautions over the next 24 hours should symptoms advance, or she has new signs or symptoms. Isaura verbalized understanding and agreement plan and discussion above. Not Available [facility] 3 04:26:54 Tricuspid incompetence, non-rheumatic Active 2021 ARMOND casiano [facility]. 4 09:53:11 Benign paroxysmal positional vertigo Active 2022 Fatimah casiano, [facility] 4 16:19:04 Bilateral acquired absence of breast Active 2005 [place], [facility] 4 09:44:46 Spinal stenosis of lumbar region Active 02/2023 epidural steroid, right sided improvement. DULCE HIDALGO MD [address], [place], [address] , [facility] 4 15:45:04 Diastolic heart failure Completed 202210/16/2023 Removal Reason: EF fell to 35% 10/2023 DULCE HIDALGO MD [address], [facility] [address] , [facility] 4 18:38:35 Anemia Completed 201701/31/2019 Problem Code: D64.9; Problem Code Type: ICD-10; Not Available [facility] 3 04:26:55 Malignant tumor of breast Completed 200503/08/2023 Not Available [facility] 3 04:26:56 Gastroesophag eal reflux disease Completed 200303/08/2023 Not Available [facility] 3 04:26:56 Impaired fasting glycemia Completed 200803/08/2023 Not Available [facility] 3 04:26:56 Urinary tract infectious disease Completed 201509/15/2016 Problem Code: N39.0; Problem Code Type: ICD-10; Not Available [facility] 3 04:26:56 Venous embolism Completed 201603/08/2023 04/05/2017 - Comments only - Dulce Hidalgo MD - distal only. has been on xaralto 15 mg BID for 21 days. I discussed the situation with her oncologist, Dr. Anderson. I told him that many cancer patients that I have seen are on subcutaneous heparin (LMWH) , but he feels comfortable at this point having her on a new novel anticoagulant . She has completed her 3 weeks of loading dose, and given her GFR in the 30-35 range, I am putting her on once daily [address] Anderson did say that he would check with one of the coagulation hematologists about the novel new anticoagulant s in patients with cancer. Together we agreed that she should have a repeat ultrasound in 1-2 weeks, and would consider changing to low molecular weight heparin if the clot progressed. Similarly she has an upcoming PET scan, and that showed progression to metastatic disease, that might be a reason to switch her to low molecular weight heparin. She is instructed to proceed immediately to the emergency room if she develops chest pain with acute worsening of dyspnea. Not Available [facility] 3 04:26:57 Pain in thoracic spine Completed 202201/16/2023 Problem Code: M54.89; Problem Code Type: ICD-10; ARMOND casiano, [facility] 4 09:52:44 Meralgia paresthetica of left leg Completed 201801/31/2019 Problem Code: G57.12; Problem Code Type: ICD-10; Not Available [facility] 3 04:26:57 Adult health examination Completed 201509/15/2016 Problem Code: Z00.00; Problem Code Type: ICD-10; DULCE HIDALGO MD [address], [place], [address] [facility] 4 15:01:47 Pain in thoracic spine Completed 202008/11/2021 Problem Code: M54.89; Problem Code Type: ICD-10; ARMOND casiano, [facility] 4 09:52:44 Hydronephrosi s Completed 201606/21/2017 Problem Code: N13.30; Problem Code Type: ICD-10; Not Available [facility] 3 04:26:58 Abdominal pain Completed 202201/16/2023 Problem Code: R10.9; Problem Code Type: ICD-10; Not Available [facility] 3 04:26:59 Hypertensive disorder Completed 200603/08/2023 Not Available [facility] 3 04:26:59 Right side sciatica Completed 202203/08/2023 Problem Code: M54.31; Problem Code Type: ICD-10; Not Available [facility] 3 04:26:59 Acute upper respiratory infection Completed 202005/28/2021 Problem Code: J06.9; Problem Code Type: ICD-10; Not Available [facility] 3 04:26:59 Pulmonary embolism Completed 201703/08/2023 08/10/2017 - Comments only - Aura Barahona APRN - Incidental finding on CT scan, asymptomatic. Continue xarelot 15mg BID X 21 days, then will go to once daily dosing. Reviewed red flags for seeking emergent evaluation. Problem Code: I26.99; Problem Code Type: ICD-10; Not Available [facility] 3 04:27:00 Abnormal weight gain Completed 201606/21/2017 Problem Code: R63.5; Problem Code Type: ICD-10; Not Available [facility] 3 04:27:00 Acute bronchitis Completed 202002/01/2021 Problem Code: J20.9; Problem Code Type: ICD-10; Not Available [facility] 3 04:27:00 Proteinuria Completed 201503/08/2023 Problem Code: R80.9; Problem Code Type: ICD-10; Not Available [facility] 3 04:27:00 Neck pain Completed 202002/01/2021 Problem Code: M54.2; Problem Code Type: ICD-10; Not Available [facility] 3 04:27:01 Nausea Completed 201709/20/2017 Problem Code: R11.0; Problem Code Type: ICD-10; Not Available [facility] 3 04:27:01 Epigastric pain Completed 201801/31/2019 Problem Code: R10.13; Problem Code Type: ICD-10; Not Available [facility] 3 04:27:01 Hemorrhage of rectum and anus Completed 201609/20/2017 Problem Code: K62.5; Problem Code Type: ICD-10; Not Available [facility] 3 04:27:01 Osteopenia Active 2023 ARMOND VALENZUELA [facility], [facility] 4 09:46:25 History of small bowel obstruction Completed 202309/14/[address], [facility] [address] , [facility] 4 15:04:10 Bilateral lower leg edema Active 2021 Fatimah Ibrahim [facility], [facility] 4 16:19:50 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 MD Cristina [address], [facility] [address] , [facility] 4 15:03:15 History of small bowel obstruction Active 2023 recurrent MD [address], [place], [address] , [facility] 4 15:04:10 History of adenomatous polyp of colon Active 2011 Per GI at [facility] no further screening colonoscopies MD Cristina [address], [place], [address] , [facility] 4 08:51:30 Coronary atheroscleros is Active 2023 NSTEMI 09/2023 in context of hypertensive crisis, cardiac cath with diffuse disease MD Cristina [address], [place], [address] , [facility] 4 18:31:13 Acute non-ST segment elevation myocardial infarction Active 2023 RONALDO casiano, [facility] 4 11:45:10 Heart failure with reduced ejection fraction Active [address], [facility] [address] , [facility] 18:38:11 Problem Notes None recorded. Procedures Surgical History Date Name Laterality Status Provider Name and Address Organization Details Recorded Time 024 [facility] 08:39:35 024 Cryosurgery Warts/Skin Tags completed MD Cristina [address], [facility] [address] [place] [address] 09/18/2023 08:46:33 012 Bilateral Mastectomy completed MD Cristina [address], [facility] [address] [place] [address] 09/17/2023 15:08:34 012 nephroureterectomy completed MD [address]ina [address], [facility] [address], [facility] 09/17/2023 15:11:04 012 sigmoid colectomy completed MD Cristina [address], [facility] [address] [place] [address] 09/17/2023 15:11:39 009 Total knee arthroplasty completed MD Cristina [address], [facility] [address], [facility] 09/17/2023 15:12:23 995 Partial Hysterectomy completed MD Cristina [address], [facility] [address] [place] [address] 09/17/2023 15:09:48 repair of hernia of anterior abdominal wall completed MD Cristina [address], [facility] [address], [facility] 10/15/2023 12:58:50 Appendectomy completed MD Cristina [address], [facility] [address], [place] [facility]. 10/15/2023 12:59:08 Imaging Results Imaging Date Name Status LastModified by Organization Details LastModified Time 10/06/2023 XR, chest completed [facility] [address] [place], [address] 10/06/2023 16:36:34 10/07/2023 US, echocardiogram completed [facility] C ardiology [facility] , [place], [address], 10/24/2023 19:12:44 Procedure Notes None recorded. Medical Equipment None Reported. Allergies Allergen ID Allergen Name Allergen Category Reaction Reaction Severity Criticality Documentation Date Start Date Code Code System Note Provider Name and Address Organization Details Recorded Time 62870 Cipro medicatio n nausea mild Not available 04/21/2023200556 3 RxNorm NAUSE A Aller gyCod e: '5041 83296 01'; Aller gyNam e: 'CIPR O'; Aller gyCon ceptT ype: 'NDC' ; Not Available [facility] 16:31:19 Medications Name Sig Start Date Stop Date Status Note LastModified by Organization Details LastModified Time amoxicill in 500 mg capsule Take 1 cap by mouth three times daily 09/22 completed Not Available Not Available Not Available furosemid e 40 mg tablet Take 1 tablet by mouth once a day active Not Available Not Available No t Available Miralax 17 gram/dose oral powder take 17 gm as needed for constipa tion active Not Available Not Available No t Available atorvasta tin 40 mg tablet Take 1 tablet every other day by oral route. 12/07 completed Not Available Not Available Not Available Augmentin 875 mg-125 mg tablet Take 1 tablet by mouth twice a day 12/16 completed Not Available Not Available Not Available anastrozo le 1 mg tablet 1 qd 08/21 completed Not Available Not Available Not Available atorvasta tin 80 mg tablet TAKE 1 TABLET BY MOUTH EVERY EVENING 10/22 completed changed by cardiolo gy, lowered to 40 mg Not Available Not Available Not Available carvedilo l 25 mg tablet TAKE 1 TABLET BY MOUTH TWICE DAILY WITH MEALS active Not Available Not Available No t Available ondansetr on HCl 4 mg tablet take 1 tablet every 6hours as needed for nausea active Not Available Not Available No t Available prednison e 20 mg tablet Take 2 tablet by mouth once a day for 5 days, then 1 once a day for 5 days 11/03 completed Not Available Not Available Not Available Vitamin B-12 ER 2,000 mcg tablet,ex tended release 2017 active Not Available Not Available Not Avai lable simvastat in 10 mg tablet TAKE 1 TABLET BY MOUTH DAILY active Not Available Not Available No t Available cyanocoba janae (vit B-12) 1,000 mcg tablet 1 tab daily 11/16 completed Not Available Not Available Not Available ciproflox acin 500 mg tablet 1 tab bid x 7 days 02/09 completed Not Available Not Available Not Available spironola ctone 25 mg tablet Take 1 tablet every day by oral route. 2023 active Not Available Not Available Not Avai lable ferrous sulfate 325 mg (65 mg iron) tablet Take 1 tablet by mouth once a day 07/20 completed Not Available Not Available Not Available lidocaine 5 % topical patch APPLY 1 PATCH TOPICALL Y TO MOST PAINFUL AREA FOR UP TO 12 HOURS 09/17 completed Not Available Not Available Not Available losartan 25 mg tablet Take 1 tablet every day by oral route. 2023 active [facility] Not Available Not Available Not Available Magnesium -Oxide 400 mg tablet Take 1 tablet by mouth once a day 2016 active Not Available Not Available Not Avai lable omeprazol e 20 mg capsule,d elayed release Take 1 capsule every day by oral route. active OTC Not Available Not Available No t Available hydrochlo rothiazid e 25 mg tablet Take 1 tablet by mouth once a day 12/22 completed Not Available Not Available Not Available furosemid e 20 mg tablet Take 1 tablet by mouth once a day Patient reports she has been taking a day two day a for the last three days. 01/16 completed Not Available Not Available Not Available gabapenti n 100 mg capsule start with one capsule at night X 1 week and then slowly increase to 3 capsule at night if tolerate d. 04/24 completed Not Available Not Available Not Available aluminum- mag hydroxide -simethic one 200 mg-200 mg-20 mg/5 mL oral susp take 10ml for abdomina l cramping 09/17 completed Not Available Not Available Not Available nystatin 100,000 unit/gram topical powder Apply 1 a small amount to skin three times a day as needed to abdomina l fold and interglu teal cleft active Not Available Not Available No t Available Aspir-81 mg tablet,de layed release 1 daily 07/24 completed Not Available Not Available Not Available Ativan 0.5 mg tablet Take 1 tab by mouth one hour prior to PET Scan, may repeat at the time of scan if needed 02/09 completed Not Available Not Available Not Available atenolol 50 mg tablet TAKE 1 TABLET DAILY 10/10 completed [facility] Not Available Not Available Not Available Augmentin 500 mg-125 mg tablet Take 1 tab twice daily for 5 days 04/11 completed Not Available Not Available Not Available Dulcolax (bisacody l) 5 mg tablet,de layed release Take 1 tab by mouth daily Take as needed. 2016 active Not Available Not Available Not Avai lable Augmentin 875 mg tablet 1 TAB twice daily 07/27 completed Not Available Not Available Not Available Vitamin B-12 ER 1,000 mcg tablet,ex tended release 2017 active Not Available Not Available Not Avai lable Vitamin D3 25 mcg (1,000 unit) tablet 1 qd 03/27 completed Not Available Not Available Not Available cyclobenz aprine 5 mg tablet Take 1 tablet by mouth three times a day as needed for pain 12/18 completed Not Available Not Available Not Available Prilosec OTC 20 mg tablet,de layed release 1 . qd gerd 08/21 completed Not Available Not Available Not Available Tylenol 1,000 mg R2miidl 09/17 completed Not Available Not Available Not Available Acidophil us 1CAP daily 04/09 completed Not Available Not Available Not Available calcium carbonate -vitamin D3 1 Chew daily 2016 active Not Available Not Available Not Avai lable apple cider vinegar 1 tbsp daily 02/09 completed Not Available Not Available Not Available Zostavax (PF) today 07/17 completed Not Available Not Available Not Available calcium carbonate 600 mg-vitami n D3 10 mcg (400 unit) tablet 1 once a day 2016 active Not Available Not Available Not Avai lable Fiber (calcium polycarbo gerard) 625 mg tablet 1 pill daily 2017 active Not Available Not Available Not Avai lable omeprazol e 20 mg tablet,de layed release Take 1 Capsule by mouth in the AM. 2016 active Not Available Not Available Not Avai lable Zyrtec 10 mg capsule 1 tablet by mouth once a day 09/17 completed Not Available Not Available Not Available Vitamin D3 125 mcg (5,000 unit) tablet 1 qd 08/21 completed Not Available Not Available Not Available Vitamin D3 50 mcg (2,000 unit) capsule Take 1 capsule by mouth once a day 2023 active Not Available Not Available Not Avai lable Xarelto 10 mg tablet TAKE 1 TABLET DAILY active Not Available Not Available No t Available Xarelto 15 mg tablet TAKE 1 TABLET DAILY 2017 active Not Available Not Available Not Avai lable magnesium 400 mg (as magnesium oxide) capsule Take 1 tab by mouth daily 2016 active Not Available Not Available Not Avai lable Jardiance 10 mg tablet Take 1 tablet by mouth once a day active Not Available Not Available No t Available Flonase Allergy Relief 50 mcg/actua tion nasal spray,lea pension 2 spray each side1 time a day 08/05 completed Not Available Not Available Not Available Metamucil 3.4 gram/5.4 gram oral powder Once a day 2017 active Not Available Not Available Not Avai lable magnesium 400 mg (as magnesium oxide) tablet Take 1 tablet by mouth once a day 2016 active Not Available Not Available Not Avai lable Lagevrio 200 mg capsule (EUA) Take 4 capsule by mouth twice a day for 5 days 10/13 completed Not Available Not Available Not Available Vitals Date Recorded Body height Body mass index (BMI) Body weight Body temperature Oxygen saturation Oxygen saturation in Arterial blood by Pulse oximetry Heart rate Respiratory rate Systolic blood pressure Diastolic blood pressure Provider Name and Address Organization Details Last Updated DateTime 4 154.94 cm 49.1 kg/m2 222946. 02 g 97.9 [degF] 96 % 96 % 76 /min 18 /min 118 mm[Hg] 74 mm[Hg] CY POLLOCK LPN [facility] 4 07:50:21 Date Recorded Body height Body mass index (BMI) Body weight Body temperature Respiratory rate Heart rate Systolic blood pressure Diastolic blood pressure Provider Name and Address Organization Details Last Updated DateTime 4 154.94 cm 48.4 kg/m2 435780. 65 g 97.6 [degF] 16 /min 60 /min 110 mm[Hg] 58 mm[Hg] CY POLLOCK LPN [facility] 4 10:30:04 Date Recorded Body height Body mass index (BMI) Body weight Body temperature Respiratory rate Heart rate Systolic blood pressure Diastolic blood pressure Provider Name and Address Organization Details Last Updated DateTime 4 154.94 cm 48 kg/m2 166579. 46 g 97.7 [degF] 18 /min 64 /min 104 mm[Hg] 52 mm[Hg] CY POLLOCK LPN [facility] 4 13:20:09 Social History Question Answer Notes LastModified by Organizat ion Details LastModified Time Tobacco Smoking Status Never Smoker CY POLLOCK LPN [facility] 09/18/2023 07:50:49 Do You Have An Advance Directive? Yes Information n ot available 09/18/2023 Date Of Most Recent HSA 09/18/2023 Information not available 09/18/2023 Would You Say That, In General, Your Health Is Fair Information not available 09/18/2023 How Often Does Anyone, Including Family, Physically Hurt You? Never Information not available 09/18/2023 How Often Does Anyone, Including Family, Insult Or Talk Down To You? Never Information no t available 09/18/2023 How Often Does Anyone, Including Family, Threaten You With Harm? Never Information not available 09/18/2023 How Often Does Anyone, Including Family, Scream Or Curse At You? Never Information not available 09/18/2023 Within The Past 12 Months, You Worried That Your Food Would Run Out Before You Got Money To Buy More. Never True Information n ot available 09/18/2023 Within The Past 12 Months, The Food You Bought Just Didn't Last And You Didn't Have Money To Get More. Never True Information n ot available 09/18/2023 How Hard Is It For You To Pay For The Very Basics Like Food, Housing, Medical Care, And Heating? Would You Say It Is: Not Hard At All Information not available 09/18/2023 In The Past 12 Months, Has Lack Of Reliable Transportation Kept You From Medical Appointments, Meetings, Work Or From Getting Things Needed For Daily Living? No Information not available 09/18/2023 What Is Your Housing Situation Today? I Have Housing. Information not available 09/18/2023 How Often In The Past Year Have You Used Marijuana (including Smoking, Vaping, Dabbing, Or Edibles)? Never Information not available 09/18/2023 How Often In The Past Year Have You Used Prescription Medications That Were Not Prescribed To You? Never Information n ot available 09/18/2023 How Often In The Past Year Have You Taken Your Own Prescription Medication More Than The Way It Was Prescribed Or For Different Reasons Than Its Intended Purpose? Never Information no t available 09/18/2023 How Often In The Past Year Have You Used Other Drugs (for Example, Heroin, Cocaine, Meth, Salvia, Inhalants)? Never Information not available 09/18/2023 Have You Ever Used IV Drugs? No Information not available 09/18/2023 What Matters Most To You? Family Information not available 09/18/2023 During The Past Four Weeks Has Your Physical And Emotional Health Limited Your Social Activities With Family And Friends, Neighbors, Or Groups? Slightly Information not available 09/18/2023 During The Past Four Weeks, Was Someone Available To Help You If You Needed And Wanted Help? (For Example, If You [place] Very Nervous, Lonely, Or Blue; Got Sick And Had To Stay In Bed; Needed Someone To Talk To; Needed Help With Daily Chores; Or Needed Help Just Taking Care Of Yourself.) Yes- As Much As I Wanted Information not available 09/18/2023 During The Past Four Weeks, What Was The Hardest Physical Activity You Could Do For At Least 2 Minutes? Moderate Information not available 09/18/2023 Can You Get To Places Out Of Walking Distance Without Help? (For Example, Can You Travel Alone On Buses Or Taxis, Or Drive Your Own Car?) No Information not available 09/18/2023 Can You Go Shopping For Groceries Or Clothes Without Someone? s Help? No Information not available 09/18/2023 Can You Prepare Your Own Meals? Yes Information not available 09/18/2023 Can You Do Your Housework Without Help? Yes Information not available 09/18/2023 Because Of Any Health Problems, Do You Need The Help Of Another Person With Your Personal Care Needs Such As Eating, Bathing, Dressing, Or Getting Around The House? No Information not available 09/18/2023 Can You Handle Your Own Money Without Help? Yes Information not available 09/18/2023 Are You Having Difficulties Driving Your Car? Sometimes Information no t available 09/18/2023 Do You Always Fasten Your Seat Belt When You Are In A Car? Yes- Usually Information not available 09/18/2023 How Often During The Past Four Weeks Have You Been Bothered By Any Of The Following Problems? Falling Or Dizzy When Standing Up? Never Information not available 09/18/2023 Sexual Problems? Never Informat ion not available 09/18/2023 Trouble Eating Well? Sometimes Information not available 09/18/2023 Teeth Or Denture Problems? Never Information not available 09/18/2023 Problems Using The Telephone? Never Information not available 09/18/2023 Tiredness Or Fatigue? Sometimes Information not available 09/18/2023 Have You Had 2 Or More Falls Or Sustained An Injury With A Fall In The Last Year? No Information no t available 09/18/2023 Do You Have Difficulty With Walking Or Balance? Yes Information not available 09/18/2023 Do You Currently Use A Hearing Device? No Information not available 09/18/2023 Do You Currently Have Any Trouble With Your Vision? No Information no t available 09/18/2023 Do You Exercise For About 20 Minutes Three Or More Days A Week? No- I Usually Do Not Exercise Much Information not available 09/18/2023 Are There Any Safety Concerns In Your Home (see Attached [facility] Pamphlet)? No Information not available 09/18/2023 How Often Do You Have Trouble Taking Medicines The Way You Have Been Told To Take Them? I Always Take Them As Prescribed Information not available 09/18/2023 How Confident Are You That You Can Control And Manage Most Of Your Health Problems? Somewhat Confident Information not available 09/18/2023 Do You Currently Have Any Difficulty With Your Hearing? No Information not available 09/18/2023 Date Of Most Recent SBINS 09/18/2023 Information not available 09/18/2023 What Was The Date Of Your Most Recent Tobacco Screening? 09/18/2023 Information not available 09/18/2023 Has Tobacco Cessation Counseling Been Provided? No Information not available 09/18/2023 Do You Or Have You Ever Used Any Other Forms Of Tobacco Or Nicotine? No Information not available 09/18/2023 Sex: Female Functional Status None recorded. Mental Status None recorded. Family History Relationship Description Onset Age of this Age Resolved Age Notes Mother Family history of Hypertension Father Family history of malignant neoplasm Brother Family history of malignant neoplasm of lung Notes:*Problem: Brother - hy perlipiemia, valve problems Brother - stroke Mother - hypertension Brother - lung cancer Father - prostate cancer Brother - Parkinson's Medical History No medical history recorded. Gynecological HistoryNo gynecological history recorded. Obstetrics History GPAL:G 0 P 0 0 0 0 Immunizations Vaccine Type Date Status Provider Name and Address Organization Details Recorded Time Pneumococcal conjugate PCV20, polysaccharide OTX957 conjugate, adjuvant, PF 09/18/2023 completed DULCE HIDALGO MD [address], [place], [address], [facility]. 09/18/2023 13:48:57 Td (adult), 2 Lf tetanus toxoid, preservative free, adsorbed 08/29/2018 completed Not Available [facility] 04/21/2023 05:46:39 Tdap 05/12/1999 completed Not Available [facility] 05:46:39 zoster live 04/05/2012 completed Not Available [facility] 04/21/2023 05:46:40 Novel [id number], all formulations 06/08/2009 completed Not Available [facility] 04/21/2023 05:46:40 Pneumococcal conjugate PCV 13 04/09/2015 completed Not Available [facility] 04/21/2023 05:46:40 Influenza, high-dose, trivalent, PF 06/21/2017 completed Not Available [facility] 04/21/2023 05:46:40 Influenza, high-dose, trivalent, PF 02/06/2020 completed Not Available [facility] 04/21/2023 05:46:40 Td(adult) unspecified formulation 05/12/1999 completed Not Available [facility] 04/21/2023 05:46:40 Td(adult) unspecified formulation 05/19/2008 completed Not Available [facility] 04/21/2023 05:46:40 Influenza, split virus, trivalent, preservative 04/09/2015 completed Not Available [facility] 04/21/2023 05:46:40 zoster recombinant 07/03/2018 completed Not Available [facility] 04/21/2023 05:46:41 COVID-19, mRNA, LNP-S, PF, 100 mcg/0.5mL dose or 50 mcg/0.25mL dose 07/10/2020 completed Not Available [facility] 04/21/2023 05:46:41 COVID-19, mRNA, LNP-S, PF, 100 mcg/0.5mL dose or 50 mcg/0.25mL dose 07/28/2020 completed Not Available [facility] 04/21/2023 05:46:41 COVID-19, mRNA, LNP-S, PF, 100 mcg/0.5mL dose or 50 mcg/0.25mL dose 09/10/2021 completed Not Available [facility] 04/21/2023 05:46:41 COVID-19, mRNA, LNP-S, PF, 100 mcg/0.5mL dose or 50 mcg/0.25mL dose 04/08/2021 completed Not Available [facility] 04/21/2023 05:46:41 COVID-19, mRNA, LNP-S, bivalent, PF, 50 mcg/0.5 mL or 25mcg/0.25 mL dose 04/06/2022 completed Not Available [facility] 04/21/20 05:46:41 pneumococcal polysaccharide PPV23 02/14/2003 completed Not Available [facility] 2022 05:46:41 pneumococcal polysaccharide PPV23 03/30/2009 completed Not Available [facility] 2022 05:46:41 influenza, unspecified formulation 02/06/2020 completed Not Available [facility] 04/21/2023 05:46:41 influenza, unspecified formulation 02/06/2022 completed Not Available [facility] 04/21/2023 05:46:42 influenza, unspecified formulation 02/12/2019 completed Not Available [facility] 04/21/2023 05:46:42 influenza, unspecified formulation 02/21/2011 completed Not Available [facility] 04/21/2023 05:46:42 influenza, unspecified formulation 03/05/2013 completed Not Available [facility] 04/21/2023 05:46:42 influenza, unspecified formulation 03/12/2009 completed Not Available [facility] 04/21/2023 05:46:42 influenza, unspecified formulation 03/12/2021 completed Not Available [facility] 04/21/2023 05:46:42 influenza, unspecified formulation 03/22/2012 completed Not Available [facility] 04/21/2023 05:46:42 influenza, unspecified formulation 03/25/2016 completed Not Available [facility] 04/21/2023 05:46:42 influenza, unspecified formulation 04/08/2014 completed Not Available [facility] 04/21/2023 05:46:42 zoster recombinant 04/17/2018 completed [place], [place] [facility]. 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 Hyperlipidemia 11248957 History of pulmonary embolus 392670697 Active or passive immunization 993938673 Vitamin D deficiency 347 41072 Nausea 047877048 Candidiasis of skin 4988 3006 [id number] Cynthia Machado RN [facility] [address] [place] [address] 12/11/2023 07:35:52 12/11/2023 07:53:04 Vitamin B deficiency 11455273 Iron defic iency anemia 13899539 Prediabetes 198949860 Chronic ki dney disease stage 3 613656333 [id number] DULCE HIDALGO MD [facility] [address] [place] [address] 10/16/2023 10:07:30 10/16/2023 11:01:35 Medication monitoring 058601267 Coronary atherosclerosis 961672167 Iron defic iency anemia 95493374 Heart fail ure with reduced ejection fraction 176330855 [id number] Cytnhia Machado RN [facility] [address] [place] [address] 10/19/2023 11:00:27 10/19/2023 11:09:16 Medication monitoring [id number] DULCE HIDALGO MD [facility] [address] [place] [address] 11/17/2023 13:01:31 11/17/2023 14:09:47 Coronary atherosclerosis 586404536 Chronic ki dney disease stage 3 457159194 Essential hypertension 08701509 Iron defic iency anemia 87642775 Health Concerns Section Related Observation LastModified by Organization Detai ls LastModified Time None Recorded Concern Status LastModified by Organization Details LastModified Time None Recorded Advance Directives Directive Y: Payers Encounter Date Sequence Insurance Name Policy Number Policy Lai Covered Member ID Lai Member ID Guarantor Name 09/18/2023 1 [place] [employer] Isaura S Stefania [id number] Isaura S Stefania 09/18/2023 2 FOR LIFE () Isaura S Stefania [id number] Isaura S Stefania 10/16/2023 1 [place] [employer] Isaura S Stefania [id number] Isaura S Stefania 10/16/2023 2 FOR LIFE () Isaura S Stefania [id number] Isaura S Stefania 10/19/2023 1 [place] [employer] Isaura S Stefania [id number] Isaura S Stefania 10/19/2023 2 FOR LIFE () Isaura S Stefania [id number] Isaura S Stefania 11/17/2023 1 [place] [employer] Isaura S Stefania [id number] Isaura S Stefania 11/17/2023 2 FOR LIFE () Isaura S Stefania [id number] Isaura S Stefania 12/11/2023 1 [place] [employer] Isaura S Stefania [id number] Isaura S Stefania 12/11/2023 2 FOR LIFE () Isaura S Stefania [id number] Isaura S Stefania Notes Date Note Type Note Provider Name and Address Organization Details Recorded Time 09/18/2023 text/html HPI Notes: She h as been on Jardiance since November 2022 here for Medicare Wellness visit. SBINS and Medicare Wellness Self Assessment form were reviewed. The following concerns were noted: ____ She requires help walking distances and doing shopping. The following chronic and or new problems were addressed: She has 3 SK on her mid back that catch on her clothing. Her stomach continues to bother her. Her right hip pain is better, ever since injection. She feels it might be coming back, and will get another injection in the summer. c/o spots on her back. Seen in the ER last month with right shoulder pain with reassuring imaging. HFrEF- remains on JARDIANCE and FUROSEMIDE recent ECHO: Conclusion Normal left ventricular wall thickness and chamber size. Ejection fraction is 60%. Wall motion is normal Normal right ventricular size and systolic function Left atrium is mildly dilated The aortic valve is mildly calcified and trileaflet with mild regurgitation Estimated right ventricular systolic pressure is 40 mmHg h/o SBO- Spinal stenosis- saw spine clinic back in the fall, they suggested ECHO (as above) and to see ortho about her knee (felt to be stable) and cardiology evaluation prior to considering surgery, also mentioned repeat left sided epidural injection. Cardiology was to schedule appointment after ECHO completed (done 04/2023) BPPV FNVMP-[id number] unless she is she cheats eats too much some CKD-her estimated GFR was a bit lower than baseline a month ago. HTN- on ATENOLOL HYPERLIPIDEMIA- on statin GERD h/o PE, remains on Xarelto Anemia- most recent CBC in ER last month showed slight decline in H/H. IV venofer back in 01/2022 was beneficial- ferritin went from 16 to 114, has drifted down since then. DULCE HIDALGO MD [address], [place], [address], [facility] 09/18/2023 13:58:22 10/16/2023 text/html HPI Notes: Scooter w up admission at [facility]. Patient discharge date: 10/11/2023 Patient or caregiver first interactive contact date: today [id number] visit date: today, October 15, 2023 Medical complexity decision making(select one by marking X): ( X) Moderate or ( ) High She is feeling ramesh Legs are weak, using 2 canes today. c/o neck pain, right side. She has not had 3rd infusion, d/t d/c from [facility]. She is wondering if infusion could have created elevated b/p. Presented to ER [facility] with hypertensive crisis-Blood pressure is 225/112, and chest pain. bedside echo was performed, the patient does show reduced ejection fraction of 35% Required a nitro drip, and heparin drip. Elevated troponin (>15,000) transferred to [facility] cardiology. Discharge summary reviewed: NSTEMI, cardiac catheterization showed diffuse disease Simvastatin changed to atorvastatin 80 mg atenolol changed to carvedilol Spironolactone added 25 mg daily. Losartan continued. She had her second iron infusion, then she went out to lunch. After lunch she felt tired, lay down for 45 minutes, and then she developed a tightening in her chest. Her BP was high. They had checked her BP at the beginning of her infusion, but not after. Checking BP at home: mostly 120s-130s/60s. does not feel light headed or dizzy. No more chest tightness. MD [address], [place], [address], [facility]. 10/16/2023 18:38:53 11/17/2023 text/html HPI Notes: Here for follow up of multiple problems as noted below: CAD Lab review, BMP. She has seen cardiology 10/22 and Atorvastatin change to half pill, 40 mg daily, if muscles still hurt qod. She is taking Atorvastatin qod. Achiness is less. She is not back to walking where she wants to be. Denies Chest pain, SOB, NAJERA or visual issues. She was advised to get a machine brush maker in this area. With the furosemide they go down at night, do swell if she is up on them all day. Plenty of stress: Just lost a niece. Lots of appointments, brother in law just of pancreatic cancer. Was the 4th family member with pancreatic cancer. Saw urology 11/12. Urology is going to order USG next year. MD [address]ina [address], [place], [address], [facility]. 11/17/2023 16:45:06 OBGyn Episode No OBEpisode recorded.
--- OUTSIDE RECORDS SUMMARY | 2024-01-11 13:16 | XMS_ITS | Encounter Summary ---
[place] [address] Care Team Providers Care Soft Water Mechanic Name Role Phone Dulce Hidalgo MD Primary Care Provider [phone] Reason for Referral * Diagnostic Test (Routine) - Closed Specialty Diagnoses / Procedures Referred By Christal lainez Referred To Contact Urology Diagnoses Urothelial cancer Procedures Cystourethroscopy Ariel Do MD [facility] [place] [address] [place] [address] Referral ID Status Reason Start Date Expiration Date V isits Requested Visits Authorized [id number] Closed Test Only 11/13/2023 11/12/2024 1 1 Reason for Visit * Diagnostic Test (Routine) - Closed Specialty Diagnoses / Procedures Referred By Christal lainez Referred To Contact Urology Diagnoses Urothelial cancer Procedures Cystourethroscopy Ariel Do MD [facility] [place] [address] [place] [address] Referral ID Status Reason Start Date Expiration Date V isits Requested Visits Authorized [id number] Closed Test Only 11/13/2023 11/12/2024 1 1 Encounter Details Date Type Department Care Team (Latest Contact Info) Description 11/13/2023 2:20 PM EDT Procedure visit Urology at [facility] [place] [address] Ariel Do MD [facility] [place] [place] [address] Urothelial cancer (Primary Dx) Social History Tobacco Use Types Packs/Day Years Used Date Smoking Tobacco: Never Smokeless Tobacco: Never Alcohol Use Standard Drinks/Week Comments No 0 (1 standard drink = 0.6 oz pur e alcohol) [facility] Utilities Answer Date Recorded In the past 12 months has th e electric, gas, oil, or water company threatened to shut off services in your home? No 10/10/2023 Hunger Vital Sign Answer Date Recorded Within the past 12 months, y ou worried that your food would run out before you got the money to buy more. Never true 10/10/19 24 Within the past 12 months, t he food you bought just didn't last and you didn't have money to get more. Never true 10/10/2023 PRAPARE - Transportation Answer Date Re corded In the past 12 months, has l ack of transportation kept you from medical appointments or from getting medications? No 09/12 In the past 12 months, has l ack of transportation kept you from meetings, work, or from getting things needed for daily living? No 10/10/2023 Housing Stability Vital Sign Answer Jan e Recorded In the last 12 months, was t here a time when you were not able to pay the mortgage or rent on time? No 10/10/2023 In the last 12 months, how many places have you lived? 1 10/10/2023 In the last 12 months, was t here a time when you did not have a steady place to sleep or slept in a senior living (including now)? No 10/10/2023 [facility] Inpatient Questions Answer Date Recorded Does Anyone Try to Keep You From Having Contact with Others or Doing Things Outside Your Home? no 10/06/2023 Feels Threatened by Someone no 2 11/2023 Feels Unsafe at Home or Work/School no 10/06/2023 Physical Signs of Abuse Present no 10/06/2023 Sex and Gender Information Value Date Recorded Sex Assigned at Not on file Gender Identity Not on file Sexual Orientation Not on file documented as of this encounter Last Filed Vital Signs Vital Sign Reading Time Taken Comments Blood Pressure 162/64 11/13/2023 3:00 PM EDT Pulse 68 11/13/2023 3:00 PM EDT Temperature - - Respiratory Rate - - Oxygen Saturation - - Inhaled Oxygen Concentration - - Weight - - Height - - Body Mass Index - - documented in this encounter Patient Instructions * Patient Instructions* Bob Camp RN - 11/13/2023 2:20 PM EDT Instructions following Cystoscopy Activity: As tolerated by your comfort level. Fluids: You should increase your water today. Avoid coffee, tea and cola. You do not need to [id number] ounces of water today. Urination: You will likely have a small amount of blood in your urine for the next several days. This is normal; however, if you are passing large amounts of blood clots or are unable to void please call our office at [phone] before 5PM or [phone] after hours. Please call if: * you have copious blood in your urine * fevers greater than 101.3 F * you are unable to void The number for questions is [phone] before 5 PM weekdays and [phone] after 5 PM and weekends. Follow-up: 1 yr follow up cystoscopy. documented in this encounter Progress Notes * Ariel Do MD - 11/13/2023 2:20 PM EDT Images from the original note were not included. Patient Name: Isaura Aguiar Date of Service: 11/13/2023 Primary Care Provider: Dulce Hidalgo MD Reason for Visit: Isaura Aguiar is a 83 y.o. 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 She completed the following adjuvant therapy - 12/27/16 - 02/28/17 3 cycles of cisplatin and gemcitabine - 05/01/17 - 06/06/17 concurrent XRT and Xeloda 1800 mg BID 12/2017 Admitted for partial SBO, resolved with conservative management. No clear recurrence. Incisional hernia, wide mouthed, 07/2018 Incisional hernia repair with MESH (Dr Michael Carroll) Was last seen in 03/2021 with plans to repeat a CT, Cysto, and CMP in 6 months. 11/2023 Has had issues recurrent SBOs, none recently Recently had cardiac She has no urinary symptoms. No hematuria, fevers, chills, nausea, vomiting since hospitalization. Bowel movements are loose from soft diet She is having issues walking, presumably from sciatica and has started prednisone for this. She has her appetite back and is eating. Patient Active Problem List Diagnosis Hypertensive crisis, unspecified Radiculopathy of lumbar region Ventral hernia Dehydration Neutropenia, drug-induced Metastatic urothelial carcinoma Ureteral cancer Renal mass 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 IT band syndrome SK (seborrheic keratosis) AK (actinic keratosis) Osteopenia Overview Note: Last Dexa scan August 06, 2009 showed T scores of -1.5 in the lumbar spine,m - 0.4 in the left hip, and 0.6 in the left femoral neck. BRCA2 positive Overview Note: [address] in BRCA2. She has had bilateral mastectomies and bilateral oophorectomies. Benign essential tremor Overview Note: Hypertension Overview Note: Stage III Ovarian cancer Overview Note: in 1994, treated with a JOANN/BSO, appendectomy, partial bowel resection, and chemotherapy Breast cancer, stage 1 Overview Note: Ms. Aguiar presented April 28, 2006 on [...] node. There was benign tissue on the right,and two right-sided sentinel nodes were negative. We met on June 15, 2006, she declined adjuvant c hemotherapy, and she elected to be treated with anastrozole. She took five years of anastrozole between June 2006 and June 2011. Past Medical History: HTN Impaired GTT GERD Past Surgical History: 1994 Ovarian cancer (chemotherapy and JOANN BSO) 2005 Breast cancer. Masetectomy Bilateral Knee replacement Medications: Reviewed Allergies: Reviewed Family History: There is no family history of urothelial cancer. No diseases run in the family. 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 The patient has been for 55years with 3 children. The patient drinks no ETOH Tobacco: Never Physical Exam: Vital Signs are reviewed. The patient appears healthy and in no distress. Abdomen benign incision3 are well healed. Lab values are reviewed 10/2017 1.28, eGFR 41 07/2018 Cr 1.5, eGFR 34 02/2019 Cr 1.27, eGFR41, LFT's normal 12/2019 Cr 1.28, eGFR40, LFT's normal 10/2023 Cr 1.34, Imaging 12/[address] No metastatic disease. Wide mouthed hernia 06/2018 CT Chest/abd pelvis negative 02/2019 CT chest/abd/pelvis (no IV contrast) Negative. Report pending 12/2019 CXR negative 12/2019 CT IMPRESSION Stable exam. Limited evaluation without the use of intravenous contrast. 02/2021 CTC/A/P Negative 08/2022 CT C/A/P Cystoscopy 03/2017: Absent RUO, no recurrence. Some residual suture fragments, dissolving. 09/2017: Absent RUO. No tumors 01/2018: Absent RUO. No tumors 08/2018: Absent RUO. No tumors 02/2019: Absent RUO. No tumors 03/2021: Absent RUO> No tumors 10/2022: Absent RUO. No tumors. 11/2023: Absent RUO. No tumors. Cytology 02/2019 Negative 03/2021 Negative 11/2023 Pending Impression: #1: Metastatic high grade Urothelial cancer of the right ureter, pT3pN2, s/p right nephroureteretcomy 10/2016, negative bladder cuff margin #2: Stage 3a CRI #3: Morbid obesity #4: BRAC2 mutation #5: Moderate co-morbidity #6: Incisional hernia through extraction site sp repair #7: Recurrent SBO Plan: D/C standard radiologic follow up as patient is >5 years out Cystoscopy in 1 year, Renal U/S 1 years Ariel Do documented in this encounter Procedure Notes * Ariel Do MD - 11/13/2023 2:20 PM EDTAssociated Order(s): CYSTOURETHROSCOPY Procedure(s): CYSTOURETHROSCOPY Pre-Procedure Diagnose(s): Urothelial cancer Procedure: Flexible Cystoscopy Surgeon: Ariel Do Preoperative Diagnosis: History of RIGHT Ureteral cancer Post Operative Diagnosis: No evidence of Bladder Cancer Complications: None Procedure: Urinalysis revealed no evidence of an active urinary tract infection. After informed consent was obtained and the external genitalia appropriately cleaned and draped, lidocaine was instilled into the urethra to achieve topical anaesthesia. The flexible telescope was inserted into the urethra and advanced into the bladder under direct vision. The bladder was systematically inspected through 360 degrees with the flexible telescope including retroversion. The anterior urethroscopy was normal. The Left ureteral orifices was in normal position and effluxed clear urine.The RUO was absent. The bladder was normal. There were no bladder tumors, mucosal abnormalities or bladder stones. The cystoscope was removed. The patient tolerated the procedure without difficulty. There were no complications. Ariel Do documented in this encounter Plan of Treatment Scheduled Orders Name Type Priority Associated Diagnoses Orde r Schedule US Retroperitoneal Complete Imaging Routine Urothelial cancer Expected: 11/12/2024, Expires: 05/14/2025 documented as of this encounter Procedures Procedure Name Priority Date/Time Associated Diagnosis Comments CYTOPATHOLOGY NON-GYNECOLOGICAL Routine 11/13/2023 3:22 PM EDT Urothelial cancer NON-DEPUTY ATTORNEY GENERAL FINAL REPORT Routine 11/13/2023 3:19 PM EDT CYSTOURETHROSCOPY Routine 11/13/2023 2:2 0 PM EDT Urothelial cancer documented in this encounter Results * Cytopathology Non-Gynecological (11/13/2023 3:22 PM EDT) AP Specimen 11/13/2023 3:22 PM EDT 11/13/2023 3:22 PM EDT Narrative [facility] - 11/13/2023 3:22 PM EDT Specimen requisition ordered. ??Separate Pathology report to follow Ariel Do MD PATHOLOGY/CYTOLOGY O RDERABLES [facility] [place] [address] * Non-Management Coordinator Final Report (11/13/2023 3:19 PM EDT) Diagnosis Discussion [id number] ? Location: The signing pathologist has (i) examined the relevant preparation(s) for the specimen(s) and (ii) rendered or confirmed the diagnosis(es). . ? Non-Management Coordinator Final DIAGNOSIS Negative for High Grade Urothelial Carcinoma See discussion. Electronically signed by: ?Jasbir Gutiérrez MD Verified: ??11/15/2023 11:55 ??Pathologist Performed at: ??-[facility], [place] [address] Swaging Machine Operator: Soren Vogel MD, FCAP, ??CLIA Certificate: [id number] DISCUSSION Urine, voided: Urothelial cells, abundant squamous cells, and bacteria (favoring DEPUTY ATTORNEY GENERAL contamination), and leukocytes are present. Reference: ??Slim EM, ??Elif DFI, Vanda DL. The Tori System for Reporting Urinary Cytology, 2nd edition. [place]: [place]; 2021. CLINICAL INFORMATION Specimen Source : Urine, voided Pertinent Clinical Data and Significant Therapy: Hematuria Clinical Impression : Hx of urothelial cancer Pertinent Radiologic Findings ??: (not provided) Gross Description: Received ??fresh, approximately 80 mL total volume of ?? clear, yellow fluid. Total Preparation: Liquid-Based Prep 1. 11/15/2023 11:55 AM EDT [facility] URINE SPECIMEN OBTAINED BY CLEAN CATCH PROCEDURE / Unknown 11/13/2023 3:19 PM EDT 11/13/2023 3:19 PM EDT Ariel Do MD PATHOLOGY/CYTOLOGY O RDERABLES [facility] [place] [id number] * CYSTOURETHROSCOPY (11/13/2023 2:20 PM EDT) Narrative Ariel Do MD - 11/13/2023 2:20 PM EDT Ariel Do MD ? 11/13/2023 ??4:28 PM Procedure: Flexible Cystoscopy Surgeon: Ariel Do Preoperative Diagnosis: History of RIGHT Ureteral cancer Post Operative Diagnosis: No evidence of Bladder Cancer Complications: None Procedure: Urinalysis revealed no evidence of an active urinary tract infection. After informed consent was obtained and the external genitalia appropriately cleaned and draped, lidocaine was instilled into the urethra to achieve topical anaesthesia. The flexible telescope was inserted into the urethra and advanced into the bladder under direct vision. The bladder was systematically inspected through 360 degrees with the flexible telescope including retroversion. The anterior urethroscopy was normal. The Left ureteral orifices was in normal position and effluxed clear urine.The RUO was absent. The bladder was normal. There were no bladder tumors, mucosal abnormalities or bladder stones. The cystoscope was removed. The patient tolerated the procedure without difficulty. There were no complications. Ariel Do Ariel Do MD URO PROCEDURE W RFL ORDERABLES documented in this encounter Visit Diagnoses Diagnosis Urothelial cancer- Primary Malignant neoplasm of other specified sites of urinary organs documented in this encounter Care Teams Soft Water Mechanic Relationship Specialty Start Date End Date Dulce Hidalgo MD [facility] [place] [facility] [address] [place] [address] PCP - General Family Medicine 09/30/16 documented as of this encounter
--- OUTSIDE RECORDS SUMMARY | 2024-01-11 13:16 | XMS_ITS | Clinical Summary ---
Author Organization [facility] Address [facility] [place] [address] Care Team Providers Care Laboratory Inspector Name Role Phone Dulce Hidalgo MD Primary Care Provider [phone] Allergies Active Allergy Reactions Criticality Noted Date Comments Glucosamine-Chondroitn Sulf.Na Nausea Only Medium 01/16/2014 Intense cramping too Transparent Dressings Rash Medium 11/02/2016 Erythema, blisters Sulfa (Sulfonamide Antibiotics) Other (See Comments) liver damage Medications Medication Sig Dispensed Refills Start Date End Date Status ACETAMINOPHEN (TYLENOL ORAL) Take 500 mg by mouth every 6 hours. *taking 2 tablets every 6 hrs as needed* 08/05/2010 Active Calcium Carbonate-Vitamin D3 600 mg(1,500mg) -400 unit Tab Take 1 tablet by mouth daily. Reported on 01/03/2017 Active docusate sodium (COLACE) 100 mg Capsule Take 100 mg by mouth as needed. Active magnesium oxide (MAG-OX) 400 mg TabletIndications:Me tastatic urothelial carcinoma Take 1 tablet by mouth daily. 30 tablet 2 01/03/2017 Active omeprazole (PRILOSEC) 10 mg Capsule, Delayed Release(E.C.) Take 10 mg by mouth daily. Daily as needed Active LORazepam (ATIVAN) 0.5 mg Tablet take 1 tablet by mouth ONE HOUR PRIOR TO PET SCAN,MAY REPEAT AT TIME OF SCAN if needed 0 12/15/2016 Active PROCHLORPERAZINE MALEATE (COMPAZINE ORAL) Take by mouth as needed. Active rivaroxaban (Xarelto) 15 mg Tablet Take 10 mg by mouth daily. Active cetirizine (ZyrTEC) 10 mg Tablet Take 10 mg by mouth as needed. Active furosemide (Lasix) 20 mg tablet Take 40 mg by mouth daily. 10/12/2022 Active meclizine (Antivert) 12.5 mg tablet Take 12.5 mg by mouth 3 times daily as needed. 08/09/2022 Active Jardiance 10 mg tablet Take 10 mg by mouth daily. 12/24/2022 Active ondansetron (Zofran) 4 mg tablet Take 4 mg by mouth as needed. 07/21/2022 Active atorvastatin (Lipitor) 80 mg tablet Take 1 tablet by mouth every evening. 90 tablet 3 10/11/2023 Active carvediloL (Coreg) 25 mg tablet Take 1 tablet by mouth 2 times daily (with meals). 90 tablet 3 10/11/2023 Active losartan (Cozaar) 25 mg tablet Take 1 tablet by mouth daily. 90 tablet 3 10/12/2023 Active spironolactone (Aldactone) 25 mg tablet Take 1 tablet by mouth daily. 90 tablet 3 10/12/2023 Active Active Problems Problem Noted Date Diagnosed Date [...] femoral neck. 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 She has had [...] JOANN/BSO, appendectomy, partial bowel resection, and chemotherapy Encounters Date Type Department Care Team Description 11/13/2023 2:20 PM EDT Procedure visit [place]rology [place] [address] Ariel Do MD Urothelial cancer (Primary Dx) 10/23/2023 10:00 AM EDT Office Visit Cardiology at [address] [phone] Taqueria Garcia MD Hypertensive crisis, unspecified 10/23/2023 Travel 10/06/2023 7:40 PM EDT - 10/11/2023 4:38 PM EDT Hospital Encounter Heart and Vascular Unit Level [address] [place] [address] Rusty Ohara MD Hypertensive crisis; Non-ST elevation myocardial infarction (NSTEMI) Discharge Disposition: Home from Last 3 Months Immunizations Name Administration Dates Next Due Influenza Unspecified Formulation 04/06/2016 Influenza Vaccine, Whole 02/10/2006 Family History Medical History Relation Comments Lung Cancer Brother Prostate Cancer Father Breast Cancer Maternal Aunt Lung Cancer Maternal Uncle 70's or 80's Ovarian Cancer Other Relation Status Comments Brother Father Maternal Aunt Maternal Uncle Other Social History Tobacco Use Types Packs/Day Years Used Date Smoking Tobacco: Never Smokeless Tobacco: Never Tobacco Cessation:Counseling Given: Not Answered Alcohol Use Standard Drinks/Week Comments No 0 (1 standard drink = 0.6 oz pur e alcohol) [facility] Utilities Answer Date Recorded In the past 12 months has th e [employer], gas, oil, or water [employer] threatened to shut off services in your [...] place to sleep or slept in a chcf (including now)? No 10/10/2023 [facility] IPV Inpatient Questions Answer Date Recorded Does Anyone Try to Keep You From Having Contact with Others or Doing Things Outside Your Home? no 10/06/2023 Feels Threatened by Someone no 09/11 Feels Unsafe at Home or Work/School no 10/06/2023 Physical Signs of Abuse Present no 10/06/2023 Sex and Gender Information Value Date Recorded Sex Assigned at Not on file Gender Identity Not on file Sexual Orientation Not on file Last Filed Vital Signs Vital Sign Reading Time Taken Comments Blood Pressure 162/64 11/13/2023 3:00 PM EDT Pulse 68 11/13/2023 3:00 PM EDT Temperature 36.7 ??C (98.1 ??F) 10/11/2023 11:57 AM E DT Respiratory Rate 18 10/11/2023 11:57 AM EDT Oxygen Saturation 96% 10/23/2023 10:01 AM EDT Inhaled Oxygen Concentration - - Weight 116.6 kg (257 lb) 10/23/2023 10:01 AM EDT Height 152.4 cm (5') 10/23/2023 10:01 AM EDT Body Mass Index 50.19 10/23/2023 10:01 AM EDT Plan of Treatment Health Maintenance Due Date Last Done Comments Pneumoccocal Vaccine: 65+ (1 of 2 - PCV) 1948 Tdap adult 1961 Tetanus vaccine 1961 Zoster vaccine (1 of 2) 1961 Covid-19 Vaccine ( - 2022-2 4 season) 2023 Influenza (Flu) vaccine (1 o f 1 - Influenza standard series) 02/11/2024 04/06/2016, 02/10/2006 Bone Density Scan 08/04/2026 08/04/2011 Colonoscopy Discontinued 09/30/2021, 09/11, 11/30/2018, Additional history exists Colorectal Cancer Screening Discontinued Sigmoidoscopy (10 year) with FIT yearly Discontinued 09/30/2021, 09/30/2021, 11/30/2018, Additional history exists CT Colonography Discontinued FIT DNA Discontinued FIT Discontinued Sigmoidoscopy Discontinued Medical Devices Implanted Type Area Medical Geneticist Device Identifier Shelf Expiration Date Model / Serial / Lot Mesh,Sht,Flt, 3x6in ([id number]) - [id number] Implanted:Qty : 1 on 07/17/2018 by Michael Carroll MD at [facility] IMPLANTS N/A: Abdomen [employer] - CR BARD 05/09/2023 [id number] / / [id number] Explanted Type Area Medical Geneticist Device Identifier Shelf Expiration Date Model / Serial / Lot Port,8f,Sgl Lumen,Power ([id number]/21 Implanted:Qty: 1 on 12/21/2016 by Angel Lujan APRN Explanted:Qty: 1 on 06/14/2017 by Angel Lujan APRN IMPLANTS Right: Vein [employer] - CR BARD [id number] / / [id number] Description:rij 8fr single p ower Procedures Procedure Name Priority Date/Time Associated Diagnosis Comments CYTOPATHOLOGY NON-GYNECOLOGICAL Routine 11/13/2023 3:22 PM EDT Urothelial cancer NON-ELIGIBILITY MANAGER FINAL REPORT Routine 11/13/2023 3:19 PM EDT CYSTOURETHROSCOPY Routine 11/13/2023 2:2 0 PM EDT Urothelial cancer LAB SCAN 10/19/2023 12:00 AM EDT XR ABDOMEN FLAT AND UPRIGHT Routine 10/11/2023 11:21 AM EDT SCAN DOC: TELEMETRY STRIPS 10/11/2023 9:59 AM EDT DIFFERENTIAL, AUTOMATED Routine 10/11/19 24 4:35 AM EDT HEMOGRAM Routine 10/11/2023 4:35 AM EDT HC MAGNESIUM, SERUM Routine 10/11/2023 4 :35 AM EDT BASIC METABOLIC PANEL (NON-FASTING) Routine 10/11/2023 4:35 AM EDT HC CBC,PLT & AUTO DIFF Routine 4:35 AM EDT SCAN DOC: TELEMETRY STRIPS 10/11/2023 1:39 AM EDT SCAN DOC: TELEMETRY STRIPS 10/11/2023 1:39 AM EDT COLONOSCOPY Routine 09/30/2021 1:26 PM EDT DXA CENTRAL SPINE, HIP, AND/OR WHOLE BODY (GENERIC) Routine 08/04/2011 2:36 PM EST Disorder of bone and cartilage, unspecified from Last 3 Months or Most Recently Relevant to Health Maintenance Results * Cytopathology Non-Gynecological (11/13/2023 3:22 PM EDT) AP Specimen 11/13/2023 3:22 PM EDT 11/13/2023 3:22 PM EDT Narrative [facility] - 11/13/2023 3:22 PM EDT Specimen requisition ordered. ??Separate Pathology report to follow Ariel Do MD PATHOLOGY/CYTOLOGY O RDERABLES [facility] [place] [address] * Non-Purification Director Final Report (11/13/2023 3:19 PM EDT) Diagnosis Discussion [id number] ? Location: 5B The signing pathologist has (i) examined the relevant preparation(s) for the specimen(s) and (ii) rendered or confirmed the diagnosis(es). . ? Non-Purification Director Final DIAGNOSIS Negative for High Grade Urothelial Carcinoma See discussion. Electronically signed by: ?Brock KWOK, Jasbir Verified: ??11/15/2023 11:55 ??Pathologist Performed at: ??-[facility] [place]ology, [place] [address] Cane Splicer: Soren Vogel MD, [facility], ??CLIA Certificate: [id number] DISCUSSION Urine, voided: Urothelial cells, abundant squamous cells, and bacteria (favoring ELIGIBILITY MANAGER contamination), and leukocytes are present. Reference: ??Slim EM, ??Elif DFI, Vanda DL. The Tori System for Reporting Urinary Cytology, 2nd edition. [place]: [place]; 2021. CLINICAL INFORMATION Specimen Source : Urine, voided Pertinent Clinical Data and Significant Therapy: Hematuria Clinical Impression : Hx of urothelial cancer Pertinent Radiologic Findings ??: (not provided) Gross Description: Received ??fresh, approximately 80 mL total volume of ?? clear, yellow fluid. Total Preparation: Liquid-Based Prep 1. 11/15/2023 11:55 AM EDT [facility] URINE SPECIMEN OBTAINED BY CLEAN CATCH PROCEDURE / Unknown 11/13/2023 3:19 PM EDT 11/13/2023 3:19 PM EDT Ariel Do MD PATHOLOGY/CYTOLOGY O RDERABLES [facility] [place] [address] * CYSTOURETHROSCOPY (11/13/2023 2:20 PM EDT) Narrative [...] Do MD URO PROCEDURE W RFL ORDERABLES * SCAN DOC: LAB (10/19/2023 12:00 AM EDT) Narrative 10/19/2023 12:00 AM EDT Ordered by an unspecified provider. Scanning Provider MEDIA MGR SCAN EXT O RDR/RSLT * XR Abdomen Flat & Upright (10/11/2023 11:21 AM EDT) WORKSTATION ID [id number] RAD Anatomical Region Laterality Modality Abdomen N/A Digital Radiogra phy Impressions 10/11/2023 11:39 AM EDT Normal bowel gas pattern, no obstruction. Thank you for letting us participate in the care of this patient. ??If you are a health care provider and have any questions regarding this report, please contact the number below. ??For patients who have questions please contact the health chiropractic care that requested your imaging first. ? Narrative 10/11/2023 11:39 AM EDT EXAMINATION: XR ABDOMEN FLAT AND UPRIGHT CLINICAL HISTORY: Brown emesis, r/o obstruction; Here with hypertensive emergency TECHNIQUE: Supine and upright abdomen COMPARISON: 01/06/2020 FINDINGS: No dilated small or large bowel. Multiple surgical clips are present throughout the abdomen. No abnormal soft tissue contours or calcifications no free air. Lung bases are clear. Multilevel degenerative changes in the lumbar spine without acute bony abnormality. Procedure Note Gavin Griffith MD - 10/11/2023 EXAMINATION: XR ABDOMEN FLAT AND UPRIGHT CLINICAL HISTORY: Brown emesis, r/o obstruction; Here with hypertensive emergency TECHNIQUE: Supine and upright abdomen COMPARISON: 01/06/2020 FINDINGS: No dilated small or large bowel. Multiple surgical clips are presentthroughout the abdomen. No abnormal soft tissue contours or calcifications no freeair. Lung bases are clear. Multilevel degenerative changes in the lumbarspine without acute bony abnormality. IMPRESSION Normal bowel gas pattern, no obstruction. Thank you for letting us participate in the care of this patient. If youare a health care provider and have any questions regarding this report,please contact the number below. For patients who have questions please contactthe health chiropractic care that requested your imaging first. Electronically signed by: Gavin Griffith MD, [facility]([phone]), at 10/11/2023 11:39 AM Rusty Ohara MD IMG DX ORDERABLES * SCAN DOC: TELEMETRY STRIPS (10/11/2023 9:59 AM EDT) Only the most recent of3 resultswithin the time period is included. Narrative 10/11/2023 9:59 AM EDT Ordered by an unspecified provider. Scanning Provider MEDIA MGR SCAN EXT O RDR/RSLT * (ABNORMAL) Hemogram (10/11/2023 4:35 AM EDT) WBC 6.7 4.0 - 9.5 x10(3)/[facility] RBC 4.18 4.00 - 5.21 x10(6)/[facility] Hemoglobin 10.4(L) 11.7 - 15.5 g/dL [facility] Hematocrit 34.3(L) 35.7 - 45.8 % [facility] MCV 82.1(L) 82.6 - 94.4 fL [facility] MCH 24.9(L) 27.1 - 32.0 pg [facility] MCHC 30.3(L) 31.7 - 35.0 g/dL [facility] Platelets 220 145 - 357 x10(3[place] RDWSD 59.7(H) 37.0 - 46.0 fL [facility] RDWCV 21.0(H) 11.5 - 14.1 % [facility] MPV 10.5 7.6 - 12.9 fL [facility] nRBC % Auto 0.0 % [facility] nRBC Abs Auto 0.000 0.000 - 0.000 x10(3)/[facility] Blood 10/11/2023 4:35 AM EDT 10/11/2023 4:47 AM EDT Narrative Resulting Agency Comment Spec In Lab Margarita Ware MD HEMATOLOGY ORDERABLE S Performing Organization Address City/State/[facility] Co de Phone Number [facility] [place] [address] * Differential, Automated (10/11/2023 4:35 AM EDT) Neutrophils % 74.3 % [facility] Neutr Abs (ANC) 4.96 1.70 - 6.10 x10(3)/[facility] Lymphocytes % 16.2 % [facility] Lymphocytes Abs 1.1 0.9 - 3.2 x10(3)/[facility] Monocytes % 7.4 % [facility] Monocyte Abs 0.5 0.3 - 0.9 x10(3)/[facility] Eosinophils % 1.4 % [facility] [place]osinophils Abs 0.1 0.0 - 0.4 x10(3)/[facility] Basophils % 0.2 % [facility] Basophils Abs 0.0 0.0 - 0.1 x10(3)/[facility] Immature Gran % 0.50 % [facility] Comment: Immature granulocytes(IG's)percentage and absolute count will include metamyelocytes, myelocytes, and promyelocytes. Blood smears from CBCs yielding IG's will be scanned manually for concordance. If this scan disagrees with the automated IG or if promyelocytes are noted, a manual differential will be performed. [place]ana Gran Abs 0.03 0.00 - 0.04 x10(3)/mcL [facility] Blood 10/11/2023 4:35 AM EDT 10/11/2023 4:47 AM EDT Narrative Resulting Agency Comment Spec In Lab Margarita Ware MD HEMATOLOGY ORDERABLE S Performing Organization Address City/[facility]/ZIP Co de Phone Number [facility] [place] [address] * Magnesium (10/11/2023 4:35 AM EDT) Magnesium 0.92 0.69 - 1.07 mmol/L [facility] Blood 10/11/2023 4:35 AM EDT 10/11/2023 4:47 AM EDT Narrative Resulting Agency Comment Spec In Lab Rusty Ohara MD CHEMISTRY ORDERABL ES Performing Organization Address [facility]/ZIP Co de Phone Number [facility] [place] [address] * (ABNORMAL) Basic Metabolic Panel (non-fasting) (10/11/2023 4:35 AM EDT) Glucose Lvl 139 65 - 199 mg/dL [facility] Comment:Diabetes: >=200 mg/d L plus symptoms BUN 14 8 - 18 mg/dL [facility] Creatinine 1.34(H) 0.70 - 1.20 mg/dL [facility] Sodium 142 135 - 145 mmol/L [facility] Potassium 4.4 3.5 - 5.0 mmol/L [facility] Comment: Please note: ??Patients with WBC >100,000 may have falsely elevated Potassium levels. ??For accurate Potassium quantification in these patients send serum separator tube (gold top) for subsequent determinations. ??Contact the Clinical Chemistry Laboratory if there are any questions. Chloride 107 98 - 107 mmol/L [facility] CO2 22 22 - 31 mmol/L [facility] Anion Gap 13 5 - 15 mmol/L [facility] Calcium 9.5 8.5 - 10.5 mg/dL [facility] Estimated GFR 40(L) >=60 mL/min/1. 73 m?? [facility] Comment: This patient's estimated GFR was calculated using the 2020 CKD-EPI equation. The estimated GFR can vary from the measured GFR by up to 30% in the absence of rapidly changing kidney function. Assessment of the estimated GFR is not appropriate when creatinine concentrations are rapidly changing. For clinical situations in which a more precise estimate of GFR is necessary, consider alternative methods of GFR estimation such as a 24-hour urine creatinine clearance. Assignment of CKD stage 1-5 for patients with an eGFR near the transition point between stages may be based on clinical assessment of muscle mass and symptoms in addition to eGFR. Blood 10/11/2023 4:35 AM EDT 10/11/2023 4:47 AM EDT Narrative Resulting Agency Comment Spec In Lab Rusty Ohara MD CHEMISTRY ORDERABL ES [facility] [place] [address] * COLONOSCOPY (09/30/2021 1:26 PM EDT) COLONOSCOPY [facility] Endoscopy Procedure Date: 09/30/2021 1:26 PM ? Patient Name: Isaura Aguiar ? Date of : 1940 ? Age: 80 ? Order #: [id number] ? Instrument Name: [id number] ? Procedure: ? Colonoscopy Indications: ? Iron deficiency anemia Patient Profile: ? This is a 80 year old female. Providers: ? Clive Figueroa MD, Savanah Ruiz ? LOIS Burns, Henri Laws Referring : ?Dulce Hidalgo MD Medicines: ? Monitored Anesthesia Care Complications: ? No immediate complications. Procedure: ? Pre-Anesthesia Assessment: ? - Prior to the procedure, a History ? and Physical was performed, and ? patient medications and allergies ? were reviewed. The patient's ? tolerance of previous anesthesia ? was also reviewed. The risks and ? benefits of the procedure and the ? sedation options and risks were ? discussed with the patient. All ? questions were answered, and ? informed consent was obtained. ? Prior Anticoagulants: The patient ? has taken Xarelto (rivaroxaban), ? last dose was 4 days prior to ? procedure. ASA Grade Assessment: ? III - A patient with severe ? systemic disease. After reviewing ? the risks and benefits, the patient ? was deemed in satisfactory ? condition to undergo the procedure. ? The procedure, indications, ? benefits, risks and alternatives ? were explained to the patient. ? Specifically discussed were ? potential complications including, ? but not limited to, bleeding, ? perforation, infection, missing a ? cancer, and adverse medication ? reactions. The patient was placed ? in the left lateral decubitus ? position, and a digital rectal exam ? was performed. The Colonoscope was ? inserted in the anus and under ? direct visualization, advanced to ? the terminal ileum, with ? identification of the appendiceal ? orifice and IC valve. Careful ? inspection was made as the ? colonoscope was withdrawn. The ? colonoscopy was performed without ? difficulty. The patient tolerated ? the procedure. The quality of the ? bowel preparation was evaluated ? using the BBPS ([place] Bowel ? Preparation Scale) with scores of: ? Right Colon = 3, Transverse Colon = ? 3 and Left Colon = 3 (entire mucosa ? seen well with no residual ? staining, small fragments of stool ? or opaque liquid). The total BBPS ? score equals 9. The terminal ileum, ? ileocecal valve, appendiceal ? orifice, and rectum were ? photographed. Scope withdrawal time ? was 11 minutes. ? Findings: ? There is a prominent deep diverticulum in the ? rectosigmoid colon however this appears to have ? evidence of scarring suggesting evidence of a prior ? end-to-side colo-colonic anastomosis in the sigmoid ? colon. This was characterized by healthy appearing ? mucosa. The anastomosis was traversed without ? difficulty ? A 5 mm polyp was found in the descending colon. The ? polyp was sessile. The polyp was removed with a cold ? snare. Resection and retrieval were complete. ? Four sessile polyps were found in the ascending ? colon. The polyps were 3 to 6 mm in size. These ? polyps were removed with a cold snare. Resection and ? retrieval were complete. ? The terminal ileum appeared normal. ? The retroflexed view of the distal rectum and anal ? verge was normal and showed no anal or rectal ? abnormalities. ? Moderate Sedation: ? Not applicable - See Anesthesia documentation Impression: ?- End-to-side colo-colonic ? anastomosis, characterized by ? healthy appearing mucosa. ? - One 5 mm polyp in the descending ? colon, removed with a cold snare. ? Resected and retrieved. ? - Four 3 to 6 mm polyps in the ? ascending colon, removed with a ? cold snare. Resected and retrieved. ? - The examined portion of the ileum ? was normal. ? - The distal rectum and anal verge ? are normal on retroflexion view. Recommendation: ?- No source of anemia. ? - Anemia is chronic and appears to ? have improved in the past 2 years ? despite Xarelto. Consider reduced ? dosing of anticoagulation. ? - Please hold Xarelto for 48 hours ? then ok to resume (Monday ? 10/02/21). ? Attending Participation: ? I personally performed the entire procedure. ? Dr. Rc Figueroa ___ Clive Figueroa MD 09/30/2021 2:59:25 PM Number of Addenda: 0 Note Initiated On: 09/30/2021 1:26 PM PROVATION 09/30/2021 1:26 PM EDT Dulce Hidalgo MD GENERAL SURGICAL ORD ERABLES [employer]OVATION * DEXA CENTRAL-SPINE, HIP, AND/OR WHOLE BODY (08/04/2011 2:36 PM EST) Anatomical Region Laterality Modality C-spine, Hip N/A Radiographic Faby ging 08/04/2011 2:36 PM EST Narrative 08/06/2011 12:13 PM EST DEXA EXAMINATION, 08/04/11: ?? HISTORY: ??70-year-old estrogen deficient white female at risk for osteoporosis. ?? COMPARISON STUDY: ??2009. ?? FINDINGS: ??Both lumbar spine and left hip measurements are acquired. ??Her measurements are limited by her body habitus. ??When compared to the 2009 examination, there is a 5.6% decrease in her left hip measurements and no change in her lumbar spine measurements. ?? IMPRESSION: Her lowest T-score of -1.6 is from her lumbar spine. ??This fulfills the WHO classification for low bone mass. ??There is ongoing bone loss (at 5.6% decrease over two years). ?? ESTIMATING FRACTURE RISK: ?? The relationship between bone mineral density (BMD) and risk of fracture is well established. As BMD decreases, risk increases. Quantifying risk is difficult and is usually limited to estimation of the relative risk - a term which may have limited value when trying to discuss an individual's risk. Estimating the absolute risk for a patient requires an understanding of the incidence rate in a given population and consideration of multiple, partially independent, risk factors in addition to BMD. ?? The World Health Organization (WHO) has developed a fracture risk prediction tool that calculates a ten-year risk of major osteoporotic fracture based on femoral neck bone density measurements and nine clinical risk factors for individuals who have not been treated for osteoporosis. This is available through an interactive web-based interface (http://www.shef.ac.uk/FRAX/) and can be used to estimate a given patient's absolute risk of major osteoporotic fracture or hip fracture over the next 10 years. These estimates may prove useful when discussing risk with a patient. It is important, however, to understand the tool's limitations and how a given individual's risk might differ from the tool's estimate. The tool does not take into account the dose-response associated with most risk factors. ??For example, the significant increase in risk associated with multiple prior fractures compared to a single prior fracture is not taken into account. Similarly, the location of a previous fracture, the amount of glucocorticoids and number of cigarettes smoked are not considered. These limitations are discussed in a Frequently Asked Questions section of the FRAX website which you are encouraged to review. ?? DEXA data sheets with BMD measurements and plots are available in [facility] under Radiology Images. Paper copies will be sent to providers without [employer] access. If you have received this report without the data sheet and do not have access to C[facility], please contact Radiology Machine Operator Assistant at [phone] Monday thru Monday 8am-4pm. Procedure Note Kathe Gregorio MD - 08/06/2011 DEXA EXAMINATION, 08/04/11: HISTORY: 70-year-old estrogen deficient white female at risk forosteoporosis. COMPARISON STUDY: 2009. FINDINGS: Both lumbar spine and left hip measurements are acquired. Her measurements are limited by her body habitus. When compared to the 2010 examination, there is a 5.6% decrease in her left hip measurements and no change in her lumbar spine measurements. IMPRESSION: Her lowest T-score of -1.6 is from her lumbar spine. This fulfills theWHO classification for low bone mass. There is ongoing bone loss (at 5.6%decrease over two years). ESTIMATING FRACTURE RISK: The relationship between bone mineral density (BMD) and risk of fractureis well established. As BMD decreases, risk increases. Quantifying risk is difficult and is usually limited to estimation of the relative risk - aterm which may have limited value when trying to discuss an individual's risk. Estimating the absolute risk for a patient requires an understanding ofthe incidence rate in a given population and consideration of multiple,partially independent, risk factors in addition to BMD. The World Health Organization (WHO) has developed a fracture riskprediction tool that calculates a ten-year risk of major osteoporotic fracture basedon femoral neck bone density measurements and nine clinical risk factors for individuals who have not been treated for osteoporosis. This is available through an interactive web-based interface (http://www.shef.ac.uk/FRAX/)and can be used to estimate a given patient's absolute risk of majorosteoporotic fracture or hip fracture over the next 10 years. These estimates may prove useful when discussing risk with a patient. It is important, however, to understand the tool's limitations and how a given individual's risk might differ from the tool's estimate. The tool does not take into account the dose-response associated with most risk factors. For example, thesignificant increase in risk associated with multiple prior fractures compared to asingle prior fracture is not taken into account. Similarly, the location of aprevious fracture, the amount of glucocorticoids and number of cigarettes smokedare not considered. These limitations are discussed in a Frequently AskedQuestions section of the FRAX website which you are encouraged to review. DEXA data sheets with BMD measurements and plots are available in CIS under Radiology Images. Paper copies will be sent to providers without CIS access. If you have received this report without the data sheet and do not have access to [facility]IS, please contact Radiology Machine Operator Assistant at [phone] Monday thru Monday 8am-4pm. Shaheed Rios MD IMG DEXA ORDERABLES from Last 3 Months or Most Recently Relevant to Health Maintenance Advance Directives Documents on File Type Date Recorded Patient General Scrap Worker Expl anation Advance Directives and Lion chin Will 11/02/2016 3:37 PM * Attempt Cardiopulmonary Resuscitation - Inpatient (Latest Code Status on File) Date Activated Date Inactivated Comments 10/09/2023 8:33 AM 10/11/2023 6:43 PM Question Answer Comments Code Status decision made by: Patient * Attempt Cardiopulmonary Resuscitation - Inpatient Date Activated Date Inactivated Comments 10/07/2023 12:08 AM 10/09/2023 8:33 AM Question Answer Comments Code Status decision made by: Patient * Full Code Date Activated Date Inactivated Comments 07/16/2018 8:35 PM 07/21/2018 12:33 PM Question Answer Comments Does patient have capacity to make decision: Yes * Full Code Date Activated Date Inactivated Comments 06/14/2017 10:24 AM 06/15/2017 4:36 AM Question Answer Comments Does patient have capacity to make decision: Yes * Full Code Date Activated Date Inactivated Comments 12/21/2016 8:10 AM 12/22/2016 4:35 AM Question Answer Comments Does patient have capacity to make decision: Yes Care Teams Laboratory Inspector Relationship Specialty Start Date End Date Dulce Hidalgo MD [facility] [address] [place] [address] PCP - General Family Medicine 09/30/16
--- OUTSIDE RECORDS SUMMARY | 2024-01-11 13:17 | XMS_ITS | Encounter Summary ---
Author Organization Formerly [facility] [place] [address] Care Team Providers Care Linen Manager Name Role Phone Dulce Hidalgo MD Primary Care Provider [phone] Encounter Details Date Type Department Care Team (Late st Contact Info) Description 02/17/2023 2:15 PM EDT Ancillary Procedure [place] [phone] Rosy Bustillo MD [facility] [place] [address] Social History Tobacco Use Types Packs/Day Years Used Date Smoking Tobacco: Never Smokeless Tobacco: Never Alcohol Use Standard Drinks/Week Comments No 0 (1 standard drink = 0.6 oz pur e alcohol) Sex and Gender Information Value Date Recorded Sex Assigned at Not on file Gender Identity Not on file Sexual Orientation Not on file documented as of this encounter Plan of Treatment Not on file documented as of this encounter Procedures Procedure Name Priority Date/Time Associated Diagnosis Comments FILM LIBRARY STORAGE ONLY PAIN CLINIC C ARM Routine 02/17/2023 3:52 PM EDT documented in this encounter Results * Film Library- Storage Only pain Clinic C-Arm (02/17/2023 3:52 PM EDT) Narrative NORBERTO - 02/17/2023 3:52 PM EDT See PACS for result report. Rosy Bustillo MD IMG FILM LIBRARY ORDERABLES [place], [place] documented in this encounter Visit Diagnoses Not on filedocumented in this encounter Care Teams Linen Manager Relationship Specialty Start Date End Date Dulce Hidalgo MD [facility] [address] [place] [address] PCP - General Family Medicine 09/30/16 documented as of this encounter
--- OUTSIDE RECORDS SUMMARY | 2024-01-11 13:17 | XMS_ITS | Encounter Summary ---
Author Organization Formerly [facility] [place] [address] Care Team Providers Care Manager Payroll Name Role Phone Dulce Hidalgo MD Primary Care Provider [phone] Encounter Details Date Type Department Care Team (Late st Contact Info) Description 03/21/2023 Ancillary Procedure [place] [phone] Dulce Hidalgo MD [address] [place] [address] [facility] [address] [place], [place] [id number] Social History Tobacco Use Types Packs/Day Years [...] Name Priority Date/Time Associated Diagnosis Comments FILM LIBRARY- STORAGE ONLY DXA IMAGES Routine 03/21/2023 12:00 AM EDT documented in this encounter Results * Film Library- Storage Only DXA Images (03/21/2023 12:00 AM EDT) Narrative RAD - 03/22/2023 10:16 AM EDT This exam is auto-finalizing. It's purpose is for storage only. Dulce Hidalgo MD IMG FILM LIBRARY ORD ERABLES [place], [place] documented in this encounter Visit Diagnoses Not on filedocumented in this encounter Care Teams Manager Payroll Relationship Specialty Start Date End Date Dulce Hidalgo MD [address] [place] [address] [facility] [address] [place] [address] PCP - General Family Medicine 09/30/16 documented as of this encounter
--- OUTSIDE RECORDS SUMMARY | 2024-01-11 13:17 | XMS_ITS | Encounter Summary ---
[place] [address] Care Team Providers Care Horse Identifier Name Role Phone Dulce Hidalgo MD Primary Care Provider [phone] Encounter Details Date Type Department Care Team (Late st Contact Info) Description 03/15/2023 Telephone [facility] [place] [phone] Edin Shahid RN Social History Tobacco Use Types Packs/Day Years Used Date Smoking Tobacco: Never Smokeless Tobacco: Never Alcohol Use Standard Drinks/Week Comments No 0 (1 standard drink = 0.6 oz pur e alcohol) Sex and Gender Information Value Date Recorded Sex Assigned at Not on file Gender Identity Not on file Sexual Orientation Not on file documented as of this encounter Miscellaneous Notes * Telephone Encounter - Edin Shahid RN - 03/15/2023 12:04 PM EDT Received call from patient requesting order for dexa scan ordered by Rafaela Alonzo APRN on 03/09/2023 be faxed to [facility]. Order was faxed to [phone] as requested. documented in this encounter Plan of Treatment Not on file documented as of this encounter Visit Diagnoses Not on filedocumented in this encounter Care Teams Horse Identifier Relationship Specialty Start Date End Date Dulce Hidalgo MD [address] [facility] [address] [place] [address] PCP - General Family Medicine 09/30/16 documented as of this encounter
--- OUTSIDE RECORDS SUMMARY | 2024-01-11 13:17 | XMS_ITS | Encounter Summary ---
Author Organization [facility] [place] [address] Care Team Providers Care Investigator Fraud Name Role Phone Dulce Hidalgo MD Primary Care Provider [phone] Encounter Details Date Type Department Care Team (Latest Contact Info) Description 10/23/2023 Travel Social History Tobacco Use Types Packs/Day Years Used Date Smoking Tobacco: Never Smokeless Tobacco: Never Alcohol Use Standard Drinks/Week Comments No 0 (1 standard drink = 0.6 oz pur e alcohol) [facility] Utilities Answer Date Recorded In the past [...] place to sleep or slept in a correction (including now)? No 10/10/2023 DH IPV Inpatient [...] on filedocumented in this encounter Care Teams Investigator Fraud Relationship Specialty Start Date End Date Dulce Hidalgo MD [address] [place] [address] PCP - General Family Medicine 09/30/16 documented as of this encounter
--- OUTSIDE RECORDS SUMMARY | 2024-01-11 13:17 | XMS_ITS | Encounter Summary ---
[place] [address] Care Team Providers Care Manager Cargo Name Role Phone Dulce Hidalgo MD Primary Care Provider [phone] Encounter Details Date Type Department Care Team (Late st Contact Info) Description 10/07/2023 [place] [address] Unknown None Social History Tobacco Use Types Packs/Day Years Used Date Smoking Tobacco: Never Smokeless Tobacco: Never Alcohol Use Standard Drinks/Week Comments No 0 (1 standard drink = 0.6 oz pur e alcohol) DH IPV Inpatient Questions Answer Date Recorded [...] Procedure Name Priority Date/Time Associated Diagnosis Comments ECHOCARDIOGRAM TRANSTHORACIC Routine 10/07/2023 3:26 AM EDT documented in this encounter Results * Echocardiogram Transthoracic (10/07/2023 3:26 AM EDT) Anatomical Region Laterality Modality Cardiac Other 10/07/2023 3:26 AM EDT Narrative 10/07/2023 9:48 AM EDT [address] [place] [id number] ? Echocardiogram Report Name: KHARI AGUIAR ? Study Date: 10/07/2023 03:26 AM : 1940 ?Height: 152 cm Age: 82 yrs ?Weight: 119 kg Gender: Female ? BSA: 2.1 m2 Performed By: Kavon Bush MD Reason For Study: NSTEMI Interpreting Fellow: Kavon Bush. Exam Location: [facility]. Interpretation Summary Limited echo performed by overnight fellow to evaluate for biventricular function. Left ventricle is of normal size and systolic function. Ejection fraction is estimated visually at 60%. There are segmental wall motion abnormalities involving the basal and mid inferior and inferolateral lemons. Left ventricular filling pressure is increased. The right ventricle is of normal size and systolic function. PASP is 49 mmHg, assuming RAP 3 mmHg. There is mild to moderate AR, TR, and PI. Procedure Limited - [id number]. Satisfactory quality. There is normal sinus rhythm. Left Ventricle Left ventricle is of normal size. Left ventricular systolic function is normal. Left ventricular ejection fraction is estimated visually at 60%. There are no segmental wall motion abnormalities. Right Ventricle The right ventricle is of normal size. Right ventricular systolic function is normal. Left Atrium The left atrium is severely dilated. No abnormality of the interatrial septum is identified. Right Atrium The right atrium is probably normal in size. Aortic Valve The aortic valve is structurally normal. There is no aortic stenosis. There is mild to moderate aortic regurgitation. Mitral Valve The mitral valve is structurally normal. There is no mitral stenosis. There is mild mitral regurgitation. Tricuspid Valve The tricuspid valve is structurally normal. There is no tricuspid stenosis. There is mild to moderate tricuspid regurgitation. Pulmonic Valve The pulmonic valve appears to be structurally normal. There is no valvular pulmonic stenosis. There is mild to moderate pulmonic valve regurgitation. Venous Inferior vena cava is normal in size. Inferior vena cava collapse greater than 50% with respiration. Pericardium/Pleural The pericardium appears normal. Hemodynamics Left ventricular diastolic function is abnormal. Left ventricular filling pressure is increased. ? 2D Measurements ?TAPSE_phl: 2.3 cm Doppler MV E max chago: 97.1 cm/sec MV A max chago: 58.6 cm/sec MV E/A: 1.7 Lat Peak E' Chago: 9.8 cm/sec E/ e' (lat): 9.9 Med Peak E' Chago: 8.7 cm/sec E/e' (med): 11.2 E/e' Average: 10.5 TR max chago: 338.5 cm/sec I ?WMSI = 1.25 ? % Normal = 75 ?Segments ??Size X - Cannot ?2 - ?4 - ?1-2 ? small Interpret ?1 - Normal ?? Hypokinetic 3 - Akinetic Dyskinetic ?? 3-5 ? moderate 5 - ? 6-14 ?large Aneurysmal ?15-16 ?? diffuse Procedure Note Rusty Ohara MD - 10/07/2023 [address] [place] [address] Echocardiogram Report Name: KHARI AGUIAR Study Date: 403:26 AM : 1940 Height: 152 cm Age: 82 yrs Weight: 119 kg Gender: Female BSA: 2.1 m2 Performed By: Kavon Bush MD Reason For Study: NSTEMI Interpreting Fellow: Kavon Bush. Exam Location: [facility]. Interpretation Summary Limited echo performed by overnight fellow to evaluate for biventricularfunction. Left ventricle is of normal size and systolic function. Ejection fractionis estimated visually at 60%. There are segmental wall motion abnormalitiesinvolving the basal and mid inferior and inferolateral lemons. Left ventricularfilling pressure is increased. The right ventricle is of normal size and systolic function. PASP is 49mmHg, assuming RAP 3 mmHg. There is mild to moderate AR, TR, and PI. Procedure Limited - [id number]. Satisfactory quality. There is normal sinus rhythm. Left Ventricle Left ventricle is of normal size. Left ventricular systolic function isnormal. Left ventricular ejection fraction is estimated visually at 60%. There areno segmental wall motion abnormalities. Right Ventricle The right ventricle is of normal size. Right ventricular systolic functionis normal. Left Atrium The left atrium is severely dilated. No abnormality of the interatrialseptum is identified. Right Atrium The right atrium is probably normal in size. Aortic Valve The aortic valve is structurally normal. There is no aortic stenosis.There is mild to moderate aortic regurgitation. Mitral Valve The mitral valve is structurally normal. There is no mitral stenosis.There is mild mitral regurgitation. Tricuspid Valve The tricuspid valve is structurally normal. There is no tricuspidstenosis. There is mild to moderate tricuspid regurgitation. Pulmonic Valve The pulmonic valve appears to be structurally normal. There is novalvular pulmonic stenosis. There is mild to moderate pulmonic valveregurgitation. Venous Inferior vena cava is normal in size. Inferior vena cava collapse greaterthan 50% with respiration. Pericardium/Pleural The pericardium appears normal. Hemodynamics Left ventricular diastolic function is abnormal. Left ventricular fillingpressure is increased. 2D Measurements TAPSE_phl: 2.3 cm Doppler MV E max chago: 97.1 cm/sec MV A max chago: 58.6 cm/sec MV E/A: 1.7 Lat Peak E' Chago: 9.8 cm/sec E/ e' (lat): 9.9 Med Peak E' Chago: 8.7 cm/sec E/e' (med): 11.2 E/e' Average: 10.5 TR max chago: 338.5 cm/sec I WMSI = 1.25 % Normal = 75 SegmentsSize X - Cannot 2 - 4 - 1-2small Interpret 1 - Normal Hypokinetic 3 - Akinetic Dyskinetic 3-5moderate 5 - 6-14large Aneurysmal 15-16diffuse Unknown ECHO ORDERABLES documented in this encounter Visit Diagnoses Not on filedocumented in this encounter Care Teams Manager Cargo Relationship Specialty Start Date End Date Dulce Hidalgo MD [facility] [address] [facility] [address] [place] [address] PCP - General Family Medicine 09/30/16 documented as of this encounter
--- OUTSIDE RECORDS SUMMARY | 2024-01-11 13:17 | XMS_ITS | Encounter Summary ---
Author Organization [place] [address] Care Team Providers Care Yeast Tender Name Role Phone Dulce Hidalgo MD Primary Care Provider [phone] Reason for Visit * Auth/Cert (Routine) Specialty Diagnoses / Procedures Referred By Christal t Referred To Contact Diagnoses Hypertensive crisis, unspecified Hypertensive emergency / NSTEMI Rusty Ohara MD [facility] [place] [address] [place] [address] [facility] Referral ID Status Reason Start Date Expiration Date Visits Re quested Visits Authorized [id number] 1 1 Encounter Details Date Type Department Care Team (Latest Contact Info) Description 10/06/2023 7:40 PM EDT - 10/11/2023 4:38 PM EDT Hospital Encounter Heart and Vascular Unit Level 4 [place] [id number] Rusty Ohara MD [facility] [place] [address] [place] [address] Hypertensive crisis; Non-ST elevation myocardial infarction (NSTEMI) Discharge Disposition: Home Social History Tobacco Use Types Packs/Day Years Used Date Smoking Tobacco: Never Smokeless Tobacco: Never Alcohol Use Standard Drinks/Week Comments No 0 (1 standard drink = 0.6 oz pur e alcohol) [facility] Utilities Answer Date Recorded In the [...] place to sleep or slept in a fci (including now)? No 10/10/2023 DH IPV Inpatient [...] Sign Reading Time Taken Comments Blood Pressure 145/50 10/11/2023 2:00 PM EDT Pulse 72 10/11/2023 2:00 PM EDT Temperature 36.7 ??C (98.1 ??F) 10/11/2023 1 1:57 AM EDT Respiratory Rate 18 10/11/2023 11:5 7 AM EDT Oxygen Saturation 99% 10/11/2023 11: 57 AM EDT Inhaled Oxygen Concentration - - Weight 116.4 kg (256 lb 9.6 oz) 10/11/2023 6:30 AM EDT Height 152.4 cm (5') 10/06/2023 8:03 PM EDT Body Mass Index 50.11 10/06/2023 8:03 PM EDT documented in this encounter Discharge Summaries * Rusty Ohara MD - 10/11/2023 12:15 PM EDT Inpatient - Discharge Summary Patient Name: Isaura Aguiar Patient Age: 82 y.o. Birthdate: 1940 Admit date: 10/06/2023 Discharge date and time: 10/11/2023 Attending Physician: Rusty Ohara MD Follow up Instructions for providers: Please monitor renal function with repeat BMP in the setting of initialing GDMT as described below. Please assess Blood pressure trend and adjust medications as needed Please follow up on chronic constipation Discharge Diagnoses (Hospital Problems) and Secondary Diagnoses (Chronic Problems): Active Hospital Problems Diagnosis Hypertensive crisis, unspecified Resolved Hospital Problems No resolved problems to display. Active Non-Hospital Problems Diagnosis Radiculopathy of lumbar region Ventral hernia Dehydration Neutropenia, drug-induced Metastatic urothelial carcinoma Ureteral cancer Renal mass 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 IT band syndrome SK (seborrheic keratosis) AK (actinic keratosis) Osteopenia Last Dexa scan August 06, 2009 showed T scores of -1.5 in the lumbar spine,m - 0.4 in the left hip, and 0.6 in the left femoral neck. BRCA2 positive 2040 Jay in BRCA2. She has had bilateral mastectomies and bilateral oophorectomies. Benign essential tremor Hypertension Stage III Ovarian cancer in 1994, treated with a JOANN/BSO, appendectomy, partial bowel resection, and chemotherapy Breast cancer, stage 1 Ms. Aguiar presented April 28, 2006 on [...] anastrozole between June 2006 and June 2011. Operations/Major Procedures: Operations: Procedure(s): CARDIAC CATHETERIZATION Other Major Procedures: History of Presentation: Patient received her regular iron infusion. Shortly thereafter, when she was walking from the car back home (150 feet) distance, she became dyspneic. She sat down to take her medications and felt chest tightness which was atypical. She describes the pain as a belt around her chest that is being tightened with some radiation into jaw (clenched jaw sensation). No aggravating or alleviating factors. Denies arm, neck pain, tearing or ripping sensation. Of note, there is a strong family history of CAD in her siblings though no one had their first stent placed before the age of 55 and there is no history of sudden cardiac . No prior tobacco use. No recent exposures to sick contacts. OSH ED Course Vitals: T 36.8, HR64, RR18, BP 225/112, SpO2 96% on RA Labs: 64 (at 14:47) --> 01053 (at 16:05, ULN 60), proBNP 1349 (H), WBC 6.3, Hb 10.7 (L), MCV 82 (N), Plt 268, Eos 2.0% (N), PT 12.5 (H), INR 1.3 (H), APTT 37.7 (H), Na 142, K 3.8, BUN 23 (H), Cr 1.4 (H), eGFR 38 (L), LFTs normal, Lipase 23 (N) EKG: sinus rhythm, minimal depression in V4, slight elevation in aVR and aVL, no ST elevations (changes are new compared to EKG 2 months ago) Imaging: CXR with cardiomegaly, mild pulmonary venous congestion, and prominent interstitial lung markings in the bases which may reflect edema or interstitial pneumonitis POCUS: LV dysfunction with WMA, EF is reduced around 30% Interventions: SL nitroglycerin 0.4mg for angina, aspirin 324mg load, nitro gtt at 50 for HTN (lastrecorded BP 170-180/low 60s prior to transfer) On my evaluation, BP is in 150s/70s on nitro gtt. No further chest tightness or SOB. Denies fevers,chills, nightsweats, lightheadedness, presyncope, syncope, orthopnea, PND, abdominal pain, nausea, vomiting, melena, hematochezia, hematuria, dysuria, paresthesias, and weakness. ROS as per HPI. PMH - Hx of Pulmonary Embolism and DVT on Xarelto - HFpEF - HTN - HLD - CKD3b (borderline between 3a and 3b) - Stage III Ovarian Cancer (1994) - Breast Cancer, Stage 1 (BRCA2 positive, 04/2006) - Metastatic Urethelial Carcinoma - Ventral Hernia - Osteopenia - Actinic Keratoses - Seborrheic Keratoses - Lumbar Radiculopathy - Benign Tremor PSH - Lymph Node Biopsy - JOANN/BSO - Appendectomy - Partial Bowel Resection - Bilateral Mastectomies - Bilateral Oophorectomies - Ventral Hernia Repair - Right Meniscus Repair - Total Knee Replacement - Right Nephrectomy with Ureterectomy (2016) - Laparoscopic Adhesion Lysis (2017) - Incisional Hernia Repair (2018) - Endoscopy 2021 (with dilation) - Colonoscopy 2021 Family History - Father: prostate cancer - Mother: CVA - Brother: four of them had cardiac stents placed, all were older than 55 years - Brother: cardiac stent --> CABG - Sister: stent placed in early 70s - Maternal Aunt: breast cancer - Maternal Uncle: lung cancer Social History - Tobacco Use: none - ETOH Use: none - Illicit Substances: none Hospital Course: #NSTEMI, Type 2, in the setting of HTN, SVT, and underlying CAD #Hypertensive Emergency #Hx of HFpEF #HLD Pt was loaded with ASA and did take her xarelto (last dose 10/05). Because of this, pt's cath was delayed to allow the xarelto to clear. Heparin gtt was initiated and maintained. A nitro gtt was started to keep her SBP <160. Pt did have chest pains which resolved with the nitro. A cath was done which showed diffuse CAD. Patient's blood pressure was optimized as Nitroglycerine drip was stopped and Losartan was started along with switching BB to coreg 25mg twice daily and initiating Spironolactone 25mg for GDMT. . Important Studies and Lab Data: Labs: Recent Results (from the past 72 hour(s)) Troponin Result Value Ref Range Troponin-T HS 1,635 (H) <=14 ng/L Heparin (unfractionated) Level Result Value Ref Range Heparin UFH Level 0.39 IU/mL Troponin Result Value Ref Range Troponin-T HS 1,655 (H) <=14 ng/L Heparin (unfractionated) Level Result Value Ref Range Heparin UFH Level 0.30 IU/mL Basic Metabolic Panel (non-fasting) Result Value Ref Range Glucose Lvl 110 65 - 199 mg/dL BUN 13 8 - 18 mg/dL Creatinine 1.17 0.70 - 1.20 mg/dL Sodium 139 135 - 145 mmol/L Potassium 4.0 3.5 - 5.0 mmol/L Chloride 106 98 - 107 mmol/L CO2 25 22 - 31 mmol/L Anion Gap 8 5 - 15 mmol/L Calcium 9.4 8.5 - 10.5 mg/dL Estimated GFR 47 (L) >=60 mL/min/1.73 m?? Magnesium Result Value Ref Range Magnesium 0.90 0.69 - 1.07 mmol/L Hemogram Result Value Ref Range WBC 4.8 4.0 - 9.5 x10(3)/mcL RBC 3.92 (L) 4.00 - 5.21 x10(6)/mcL Hemoglobin 9.7 (L) 11.7 - 15.5 g/dL Hematocrit 32.4 (L) 35.7 - 45.8 % MCV 82.7 82.6 - 94.4 fL MCH 24.7 (L) 27.1 - 32.0 pg MCHC 29.9 (L) 31.7 - 35.0 g/dL Platelets 219 145 - 357 x10(3)/mcL RDWSD 57.8 (H) 37.0 - 46.0 fL RDWCV 19.9 (H) 11.5 - 14.1 % MPV 11.0 7.6 - 12.9 fL nRBC % Auto 0.0 % nRBC Abs Auto 0.000 0.000 - 0.000 x10(3)/mcL Differential, Automated Result Value Ref Range Neutrophils % 58.9 % Neutr Abs (ANC) 2.83 1.70 - 6.10 x10(3)/mcL Lymphocytes % 26.2 % Lymphocytes Abs 1.3 0.9 - 3.2 x10(3)/mcL Monocytes % 10.4 % Monocyte Abs 0.5 0.3 - 0.9 x10(3)/mcL Eosinophils % 3.7 % Eosinophils Abs 0.2 0.0 - 0.4 x10(3)/mcL Basophils % 0.4 % Basophils Abs 0.0 0.0 - 0.1 x10(3)/mcL Immature Gran % 0.40 % Shoshana Gran Abs 0.02 0.00 - 0.04 x10(3)/mcL Scan, Peripheral Blood Result Value Ref Range Plat Estimate Normal RBC Morphology Abnormal Microcytes 1-5 /HPF Hypochromia Slight Polychromasia Present >5/HPF Ovalocytes 1-5 /HPF Basic Metabolic Panel (non-fasting) Result Value Ref Range Glucose Lvl 112 65 - 199 mg/dL BUN 14 8 - 18 mg/dL Creatinine 1.23 (H) 0.70 - 1.20 mg/dL Sodium 141 135 - 145 mmol/L Potassium 4.2 3.5 - 5.0 mmol/L Chloride 107 98 - 107 mmol/L CO2 24 22 - 31 mmol/L Anion Gap 10 5 - 15 mmol/L Calcium 9.2 8.5 - 10.5 mg/dL Estimated GFR 44 (L) >=60 mL/min/1.73 m?? Magnesium Result Value Ref Range Magnesium 0.85 0.69 - 1.07 mmol/L Hemogram Result Value Ref Range WBC 5.7 4.0 - 9.5 x10(3)/mcL RBC 3.97 (L) 4.00 - 5.21 x10(6)/mcL Hemoglobin 9.9 (L) 11.7 - 15.5 g/dL Hematocrit 32.6 (L) 35.7 - 45.8 % MCV 82.1 (L) 82.6 - 94.4 fL MCH 24.9 (L) 27.1 - 32.0 pg MCHC 30.4 (L) 31.7 - 35.0 g/dL Platelets 205 145 - 357 x10(3)/mcL RDWSD 57.6 (H) 37.0 - 46.0 fL RDWCV 20.4 (H) 11.5 - 14.1 % MPV 10.9 7.6 - 12.9 fL nRBC % Auto 0.0 % nRBC Abs Auto 0.000 0.000 - 0.000 x10(3)/mcL Differential, Automated Result Value Ref Range Neutrophils % 63.6 % Neutr Abs (ANC) 3.64 1.70 - 6.10 x10(3)/mcL Lymphocytes % 23.4 % Lymphocytes Abs 1.3 0.9 - 3.2 x10(3)/mcL Monocytes % 10.1 % Monocyte Abs 0.6 0.3 - 0.9 x10(3)/mcL Eosinophils % 2.3 % Eosinophils Abs 0.1 0.0 - 0.4 x10(3)/mcL Basophils % 0.3 % Basophils Abs 0.0 0.0 - 0.1 x10(3)/mcL Immature Gran % 0.30 % Shoshana Gran Abs 0.02 0.00 - 0.04 x10(3)/mcL Basic Metabolic Panel (non-fasting) Result Value Ref Range Glucose Lvl 139 65 - 199 mg/dL BUN 14 8 - 18 mg/dL Creatinine 1.34 (H) 0.70 - 1.20 mg/dL Sodium 142 135 - 145 mmol/L Potassium 4.4 3.5 - 5.0 mmol/L Chloride 107 98 - 107 mmol/L CO2 22 22 - 31 mmol/L Anion Gap 13 5 - 15 mmol/L Calcium 9.5 8.5 - 10.5 mg/dL Estimated GFR 40 (L) >=60 mL/min/1.73 m?? Magnesium Result Value Ref Range Magnesium 0.92 0.69 - 1.07 mmol/L Hemogram Result Value Ref Range WBC 6.7 4.0 - 9.5 x10(3)/mcL RBC 4.18 4.00 - 5.21 x10(6)/mcL Hemoglobin 10.4 (L) 11.7 - 15.5 g/dL Hematocrit 34.3 (L) 35.7 - 45.8 % MCV 82.1 (L) 82.6 - 94.4 fL MCH 24.9 (L) 27.1 - 32.0 pg MCHC 30.3 (L) 31.7 - 35.0 g/dL Platelets 220 145 - 357 x10(3)/mcL RDWSD 59.7 (H) 37.0 - 46.0 fL RDWCV 21.0 (H) 11.5 - 14.1 % MPV 10.5 7.6 - 12.9 fL nRBC % Auto 0.0 % nRBC Abs Auto 0.000 0.000 - 0.000 x10(3)/mcL Differential, Automated Result Value Ref Range Neutrophils % 74.3 % Neutr Abs (ANC) 4.96 1.70 - 6.10 x10(3)/mcL Lymphocytes % 16.2 % Lymphocytes Abs 1.1 0.9 - 3.2 x10(3)/mcL Monocytes % 7.4 % Monocyte Abs 0.5 0.3 - 0.9 x10(3)/mcL Eosinophils % 1.4 % Eosinophils Abs 0.1 0.0 - 0.4 x10(3)/mcL Basophils % 0.2 % Basophils Abs 0.0 0.0 - 0.1 x10(3)/mcL Immature Gran % 0.50 % Shoshana Gran Abs 0.03 0.00 - 0.04 x10(3)/mcL XR Abdomen Flat & Upright Result Value Ref Range WORKSTATION ID [id number] Studies: Results for orders placed or performed during the hospital encounter of 10/06/23 XR Abdomen Flat & Upright (Exam End: 10/11/2023 11:21 AM) Result Value WORKSTATION ID [id number] Narrative EXAMINATION: XR ABDOMEN FLAT AND UPRIGHT CLINICAL HISTORY: Brown emesis, r/o obstruction; Here with hypertensive emergency TECHNIQUE: Supine and upright abdomen COMPARISON: 01/06/2020 FINDINGS: No dilated small or large bowel. Multiple surgical clips are present throughout the abdomen. No abnormal soft tissue contours or calcifications no free air. Lung bases are clear. Multilevel degenerative changes in the lumbar spine without acute bony abnormality. Impression Normal bowel gas pattern, no obstruction. Thank you for letting us participate in the care of this patient. If you are a health care provider and have any questions regarding this report, please contact the number below. For patients who have questions please contact the health care provider that requested your imaging first. Electronically signed by: Gavin Griffith MD, [facility] ([phone]), at 10/11/2023 11:39 AM Pending Studies and Lab Data: The patient will need the following test completed on: 10/06/2023 1. Cardiac Catheterization Diagnosis: Authorizing Provider: Taqueria Garcia MD Discharge Conditions/Prognosis: Good; Managing chronic constipation with laxatives Discharge to: Home Discharge Medications: Your Medications New Medications Dose Details atorvastatin 80 mg tablet Commonly known as: Lipitor Take 1 tablet by mouth every evening. 80 mg Quantity: 90 tablet Refills: 3 carvediloL 25 mg tablet Commonly known as: Coreg Take 1 tablet by mouth 2 times daily (with meals). 25 mg Quantity: 90 tablet Refills: 3 losartan 25 mg tablet Commonly known as: Cozaar Take 1 tablet by mouth daily. Start taking on: October 12, 2023 25 mg Quantity: 90 tablet Refills: 3 spironolactone 25 mg tablet Commonly known as: Aldactone Take 1 tablet by mouth daily. Start taking on: October 12, 2023 25 mg Quantity: 90 tablet Refills: 3 Continued medications, unchanged Dose Details calcium-vitamin D3 600 mg-10 mcg (400 unit) Tablet Take 1 tablet by mouth daily. Reported on 01/03/2017 1 tablet Refills: 0 cetirizine 10 mg tablet Commonly known as: ZyrTEC Take 10 mg by mouth as needed. 10 mg Refills: 0 COMPAZINE ORAL Take by mouth as needed. Refills: 0 docusate sodium 100 mg capsule Commonly known as: Colace Take 100 mg by mouth as needed. 100 mg Refills: 0 furosemide 20 mg tablet Commonly known as: Lasix Take 40 mg by mouth daily. 40 mg Refills: 0 Jardiance 10 mg tablet Take 10 mg by mouth daily. Generic drug: empagliflozin 10 mg Refills: 0 LORazepam 0.5 mg tablet Commonly known as: Ativan take 1 tablet by mouth ONE HOUR PRIOR TO PET SCAN,MAY REPEAT AT TIME OF SCAN if needed Refills: 0 magnesium oxide 400 mg (241.3 mg magnesium) Tablet Commonly known as: Mag-Ox Take 1 tablet by mouth daily. 400 mg Quantity: 30 tablet Refills: 2 meclizine 12.5 mg tablet Commonly known as: Antivert Take 12.5 mg by mouth 3 times daily as needed. 12.5 mg Refills: [address] capsule Commonly known as: PriLOSEC Take 10 mg by mouth daily. Daily as needed 10 mg Refills: 0 ondansetron 4 mg tablet Commonly known as: Zofran Take 4 mg by mouth as needed. 4 mg Refills: 0 rivaroxaban 15 mg tablet Commonly known as: Xarelto Take 10 mg by mouth daily. 10 mg Refills: 0 TYLENOL ORAL Take 500 mg by mouth every 6 hours. *taking 2 tablets every 6 hrs as needed* 500 mg Refills: 0 STOPPED Medications atenoloL 50 mg tablet Commonly known as: Tenormin gabapentin 100 mg capsule Commonly known as: Neurontin simvastatin 10 mg tablet Commonly known as: Zocor Updated Allergies/ADRs: Allergies Allergen Reactions Glucosamine-Chondroitn Sulf.Na Nausea Only Intense cramping too Iv 3000 [Transparent Dressings] Rash Erythema, blisters Sulfa (Sulfonamide Antibiotics) Other (See Comments) liver damage Instructions Given to Patient at Discharge: Patient Instructions Patient Instructions on Discharge to Home You were hospitalized for chest pain and high blood pressure. You underwent a procedure to look at your coronary arteries and there was no need to put in any stents. We added several medications for management of your blood pressure and to treat your mild coronary artery disease. Please continue your medications you were taking before hospitalization with the exception of the medications listed below. New Medications: New medications: Carvedilol 25 mg taken twice a day: this is a beta nia to manage your heart rate and blood pressure Atorvastatin 80 mg taken in the evenings: this is to stabilize existing atherosclerotic plaques andprevent further accumulation and formation of new plaques Losartan 25 mg taken once daily: this is for blood pressure Spironolactone 25 mg once daily: this is for blood pressure Medication Changes: Stop taking: Atenolol: instead you're going to take the carvedilol described above Gabapentin Simvastatin: instead you're going to take the atorvastatin above If you have non-emergent questions between now and the time of your follow up appointments: During 8am-5pm Monday through Monday call [phone] to speak with a nurse in the cardiology clinic All other times call [phone] and ask to speak to the retail planning manager fabrication mig welder. Activity level: Make sure you know the warning signs of heart failure and of a heart attack. Know what to do when you have chest pain, or angina. Always ask your provider before starting sexual activity again. DO NOT take sildenafil (Viagra), orvardenafil (Levitra), tadalafil (Cialis), or any herbal remedy for erection problems without checking first. Make sure your home is set up to be safe and easy for you for you to move around in and avoid falls. If you are unable to walk around very much, ask your provider for exercises you can do while you are sitting. Diet: - Heart healthy: low salt, low fat, low concentrated sweets. Remember to avoid added salt, canned foods, processed foods (ie hot dogs, sausage, cold meats), and foods naturally high in salt, such as potato chips or pizza. Driving: - Per your routine. Do not drive if you feel dizzy, light headed, or are taking narcotic medications (ie/ Oxycodone, Morphine, Dilaudid, etc). Exercise: - Exercise 5-7 days per week as tolerated with gradual increase to 30 minutes per day. Smoking cessation: - If you are currently a smoker, you are strongly urged to stop smoking! Smoking increases the severity and incidence of heart disease, and is a risk factor for cancer and emphysema. Your health careprovider can provide specific measures to assist you, including nicotine supplements, anti-anxiety meds, and support groups in your community. Follow up Appointments: Future Appointments Date Time Provider Department Center 10/23/2023 10:00 AM Taqueira Garcia MD [facility] CARD [facility]A [facility] 11/13/2023 2:20 PM Ariel Do MD [facility] [employer] Supervisor: Cardiology follow-up scheduled for you with Dr. Taqueria Garcia above. PCP: Dulce Hidalgo MD at [phone] Your Inpatient Doctor(s) at [facility]: Rusty Ohara MD - Attending physician If you have non-emergent questions between now and the time of your follow up appointments: During 8am-5pm Monday through Monday call [phone] to speak with a nurse in the cardiology clinic All other times call [phone] and ask to speak to the retail planning manager fabrication mig welder. General Instructions None Future Appointments and Orders Future Appointments and Orders Future Appointments Provider Department Dept Phone 10/23/2023 10:00 AM Taqueria Garcia MD Cardiology at [facility] Arrive at: Admissions Clinician Area 4A [phone] 11/13/2023 2:20 PM Ariel Do MD; UROLOGY, CYSTO1; UROLOGY PROCEDURE NURSE Urology at [facility] Arrive at: Admissions Clinician Area 5B [phone] Discharge References/Attachments: Discharge References/Attachments Carvedilol Oral Tablet (CARVEDILOL - ORAL) (Iranian) Atorvastatin Oral Tablet (ATORVASTATIN - ORAL) (Iranian) Losartan Oral Tablet (LOSARTAN - ORAL) (Iranian) Spironolactone Oral Suspension (SPIRONOLACTONE - ORAL) (Iranian) Coronary Artery Disease (Iranian) High Blood Pressure: Make the Most of Home Monitoring: Video (Iranian) Electronically Signed By: Coleman Macdonald MD 10/11/2023 documented in this encounter Discharge Instructions * Patient Instructions* Freddy Rocha MD - 10/11/2023 10:18 AM EDT Patient Instructions on Discharge to Home You were hospitalized for chest pain and high blood pressure. You underwent a procedure to look at your coronary arteries and there was no need to put in any stents. We added several medications for management of your blood pressure and to treat your mild coronary artery disease. Please continue your medications you were taking before hospitalization with the exception of the medications listed below. New Medications: New medications: Carvedilol 25 mg taken twice a day: this is a beta nia to manage your heart rate and blood pressure Atorvastatin 80 mg taken in the evenings: this is to stabilize existing atherosclerotic plaques andprevent further accumulation and formation of new plaques Losartan 25 mg taken once daily: this is for blood pressure Spironolactone 25 mg once daily: this is for blood pressure Medication Changes: Stop taking: Atenolol: instead you're going to take the carvedilol described above Gabapentin Simvastatin: instead you're going to take the atorvastatin above If you have non-emergent questions between now and the time of your follow up appointments: During 8am-5pm Monday through Monday call [phone] to speak with a nurse in the cardiology clinic All other times call [phone] and ask to speak to the retail planning manager fabrication mig welder. Activity level: Make sure you know the warning signs of heart failure and of a heart attack. Know what to do when you have chest pain, or angina. Always ask your provider before starting sexual activity again. DO NOT take sildenafil (Viagra), orvardenafil (Levitra), tadalafil (Cialis), or any herbal remedy for erection problems without checking first. Make sure your home is set up to be safe and easy for you for you to move around in and avoid falls. If you are unable to walk around very much, ask your provider for exercises you can do while you are sitting. Diet: - Heart healthy: low salt, low fat, low concentrated sweets. Remember to avoid added salt, canned foods, processed foods (ie hot dogs, sausage, cold meats), and foods naturally high in salt, such as potato chips or pizza. Driving: - Per your routine. Do not drive if you feel dizzy, light headed, or are taking narcotic medications (ie/ Oxycodone, Morphine, Dilaudid, etc). Exercise: - Exercise 5-7 days per week as tolerated with gradual increase to 30 minutes per day. Smoking cessation: - If you are currently a smoker, you are strongly urged to stop smoking! Smoking increases the severity and incidence of heart disease, and is a risk factor for cancer and emphysema. Your health careprovider can provide specific measures to assist you, including nicotine supplements, anti-anxiety meds, and support groups in your community. Follow up Appointments: Future Appointments Date Time Provider Department Center 10/23/2023 10:00 AM Taqueria Garcia MD [facility] C[facility] 11/13/2023 2:20 PM [facility] [employer] Supervisor: Cardiology follow-up scheduled for you with Dr. Taqueria Garcia above. PCP: Dulce Hidalgo MD at [phone] Your Inpatient Doctor(s) at [facility]: Rusty Ohara MD - Attending physician If you have non-emergent questions between now and the time of your follow up appointments: During 8am-5pm Monday through Monday call [phone] to speak with a nurse in the cardiology clinic All other times call [phone] and ask to speak to the retail planning manager fabrication mig welder. * Attachments The following attachments cannot be sent through Care Everywhere. * Carvedilol Oral Tablet (CARVEDILOL - ORAL) (Iranian) * Atorvastatin Oral Tablet (ATORVASTATIN - ORAL) (Iranian) * Losartan Oral Tablet (LOSARTAN - ORAL) (Iranian) * Spironolactone Oral Suspension (SPIRONOLACTONE - ORAL) (Iranian) * Coronary Artery Disease (Iranian) * High Blood Pressure: Make the Most of Home Monitoring: Video (Iranian) documented in this encounter Medications at Time of Discharge Medication Sig Dispensed Refills Start Date End Date atorvastatin (Lipitor) 80 mg tablet Take 1 tablet by mouth every evening. 90 tablet 3 10/11/2023 carvediloL (Coreg) 25 mg tablet Take 1 tablet by mouth 2 times daily (with meals). 90 tablet 3 10/11/2023 losartan (Cozaar) 25 mg tablet Take 1 tablet by mouth daily. 90 tablet 3 10/12/2023 spironolactone (Aldactone) 25 mg tablet Take 1 tablet by mouth daily. 90 tablet 3 10/12/2023 Jardiance 10 mg tablet Take 10 mg by mouth daily. 12/24/2022 ondansetron (Zofran) 4 mg tablet Take 4 mg by mouth as needed. 07/21/2022 furosemide (Lasix) 20 mg tablet Take 40 mg by mouth daily. 10/12/2022 meclizine (Antivert) 12.5 mg tablet Take 12.5 mg by mouth 3 times daily as needed. 08/09/2022 cetirizine (ZyrTEC) 10 mg Tablet Take 10 mg by mouth as needed. rivaroxaban (Xarelto) 15 mg Tablet Take 10 mg by mouth daily. PROCHLORPERAZINE MALEATE (COMPAZINE ORAL) Take by mouth as needed. LORazepam (ATIVAN) 0.5 mg Tablet take 1 tablet by mouth ONE HOUR PRIOR TO PET SCAN,MAY REPEAT AT TIME OF SCAN if needed 0 12/15/2016 omeprazole (PRILOSEC) 10 mg Capsule, Delayed Release(E.C.) Take 10 mg by mouth daily. Daily as needed magnesium oxide (MAG-OX) 400 mg TabletIndications:Metast atic urothelial carcinoma Take 1 tablet by mouth daily. 30 tablet 2 01/03/2017 docusate sodium (COLACE) 100 mg Capsule Take 100 mg by mouth as needed. Calcium Carbonate-Vitamin D3 600 mg(1,500mg) -400 unit Tab Take 1 tablet by mouth daily. Reported on 01/03/2017 ACETAMINOPHEN (TYLENOL ORAL) Take 500 mg by mouth every 6 hours. *taking 2 tablets every 6 hrs as needed* 08/05/2010 documented as of this encounter Progress Notes * Rafaela Carroll RN - 10/11/2023 4:38 PM EDT Pt discharged. Pt telemetry and IV discontinued. Pt given discharge instructions and education. Pt understands information. Pt left with all belongings via wheelchair. * Meredith Dacosta, PT - 10/11/2023 2:05 PM EDT Physical Therapy evaluation Patient profile: Isaura Aguiar is a 82 y.o. female w/ PMH of pulmonary embolism and DVT (on Xarelto, last dose on 10/05 AM), HFpEF, HTN, HLD, CKD3b, and multiple prior malignancies (s/p right nephrectomy and ureterectomy) who presented to OSH with chest tightness and was found to have severe hypertension with newly reduced EF and massive troponin leak, and is transferred to [facility] for NSTEMI andhypertensive emergency management. Patient with the following active problems: Past Medical History: Diagnosis Date Benign essential tremor BRCA2 positive 08/05/2010 Hypertension Osteopenia 01/22/2011 Stage III Ovarian cancer Past Surgical History: Procedure Laterality Date CREATED BY INTERFACE partial bowel resection Procedure Date: Unknown CREATED BY INTERFACE appendectomy Procedure Date: Unknown CREATED BY INTERFACE Entered not Verified Procedure Date: 01/19/2010 CREATED BY INTERFACE LYMPH NODE BIOPSY,DEEP AXILLARY / LEFT/RIGHT/SENTINEL NODE EXCISION Procedure Date: 06/02/2006 CREATED BY INTERFACE Right meniscus repair Procedure Date: Unknown CREATED BY INTERFACE SENTINEL NODE INJECTION/ LEFT/RIGHT/BREAST Procedure Date: 06/02/2006 CREATED BY INTERFACE SENTINEL NODE INJECTION / LEFT/RIGHT/BREAST Procedure Date: 06/02/2006 CREATED BY INTERFACE JOANN/BSO Procedure Date: Unknown PRO COLONOSCOPY, DIAGNOSTIC N/A 11/30/2018 COLONOSCOPY, DIAGNOSTIC performed by Noam Masters MD at [facility] ENDOSCOPY PRO COLONOSCOPY, REMV LESN, SNARE N/A 09/30/2021 COLONOSCOPY, POLYPECTOMY, REMOVAL LESION BY SNARE (WRVU 4.67) performed by Clive Figueroa [facility] ENDOSCOPY PRO INJECTION DX/THER SBST INTRLMNR LMBR/SAC W/IMG GDN Midline 02/17/2023 INJECTION, EPIDURAL, LUMBAR OR SACRAL (CAUDAL), WITH IMAGING GUIDANCE (WRVU 1.8) performed by Rosy Bustillo MD at [facility] PAIN MGMT MSO PRO INJECTION DX/THER SBST INTRLMNR LMBR/SAC W/IMG GDN Midline 02/17/2023 Lumbar or Sacral Epidural Steroid Inj Sacral (Caudal) (83884) performed by Rosy Bustillo [facility] PAIN MGMT MSO PRO NEPHRECTOMY, W/PART. URETECTOMY Right 11/02/2016 @LAPAROSCOPY TOTAL NEPHROURETERECTOMY, ROBOTICS ASSIST (WRVU 25.36) performed by Ariel Do MDat [facility] MAIN OR PRO REPAIR INCISIONAL HERNIA, REDUCIBLE N/A 07/17/2018 REPAIR INITIAL INCISIONAL OR VENTRAL HERNIA REDUCIBLE (WRVU 11.92) performed by Michael Carroll MD at [facility] MAIN OR PRO UNLISTED LAPAROSCOPIC PROC ABD PERITONEUM & OMENTUM N/A 11/02/2016 LAPAROSCOPIC, EXTENSIVE LYSIS ADHESIONS (WRVU *) performed by Ariel Do MD at [facility] MAIN OR PRO UP GI ENDOSCOPY, BALL DIL, 30MM N/A 09/30/2021 EGD,WITH DILATION ESOPHAGUS WITH BALLOON,< 30 MM (WRVU 2.77) performed by Clive Figueroa MD at [facility] ENDOSCOPY PRO UPPER GI ENDOSCOPY, BIOPSY N/A 11/30/2018 EGD WITH BIOPSY (WRVU 2.49) performed by Noam Masters MD at [facility] ENDOSCOPY Social History: Home set-up: Lives with her , 31 y.o grand-daughter, and 2 great grandkids (6 and 8 y.o) in a log cabin in [place], [place]. She remains on the first level with her , her granddaughter and great grandkids live upstairs in the loft. Stairs: 5 STANISLAV with bilateral rails, grab bar installed at bottom and top of stairs Bathroom Set-up: Walk-in shower with a built-in shower seat and grab bars, raised toilet seat Baseline Mobility: Ambulates with 2 canes inside, FWW vs trekking poles for longer and community distances. Independent with most I/ADLs. Sleeps in a flat bed. is home and able to assist as needed. Equipment at home: Wide FWW, single point cane, quad cane, commode, lift recliner, shower chair, leg global lead Fall history: Denies any recent falls Precautions/Special Considerations: Full Code, Monitor BP Lines: Telemetry, PIV Activity Orders: PT Orders, no activity restrictions listed in the chart Diet: Cardiac Diet Mobility and Positioning Recommendations: Pt. to utilize 1 person assist and front-wheeled walker for transfers and ambulation with nursing. Please encourage up to chair for meal times as able. Pt encouraged to ambulate frequently with staff, getting into the bathroom for toileting and walking out in the mueller >/= 3 times daily as able. Subjective: ???Walking around might help my stomach. They said I can't go until I have a bowel movement?? 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 Skin: Visible skin grossly intact, BLE edema Musculoskeletal: ROM: BUE WFL, BLE limited by body habitus but mostly WFL Strength: BUE/BLE WFL but deconditioned Sensation: Intact, denies numbness or tingling Bed Mobility: Supine to Sit: NA, pt started session sitting in bedside chair Sit to Supine: NA, pt ended session sitting in bedside chair Transfers: Sit to Stand: SBA from bedside chair and toilet to FWW Stand to Sit: SBA from FWW to toilet and bedside chair, unable to have BM on toilet Gait: Distance: 300' Device used: FWW Level of assist: CGA x1 Gait mechanics: Decreased but fair gait speed, wide SANDI behind walker, minimal foot clearance bilaterally, lateral trunk lean over stance leg, forward flexed posture with heavy reliance on BUE, mild SOB (notes this is baseline) Stairs: Ascended and descended 5 stairs with bilateral rails and CGA x1, step-to pattern Balance: Sitting Static: Good Sitting Dynamic: Good Standing Static: Good with a front-wheeled walker, CGA Standing Dynamic/Gait: Good with a front-wheeled walker, CGA steady with no LOB Therapeutic Exercise: NA Education: Patient has been educated on transfers, gait, assistive device use/technique, balance, positioning, activity pacing/energy conservation, safety, role of therapy, and discharge planning andverbalizes and demonstrates understanding. Patient status, treatment, and mobility recommendations discussed with nursing. Pt left in bedside recliner chair, with all needs met, and with call miller in reach with present following visit. Assessment: Isaura Aguiar was seen today for physical therapy evaluation. Upon evaluation, patient presents with global deconditioning, decreased ROM, [place], and reduced endurance, resulting in functional limitations. Despite these deficits, pt able to perform multiple transfers from various transfers, ambulated ~300' around the unit, and negotiated 5 stairs without issue. Pt used the FWW for ambulation and would benefit from continued use rather than canes to maximize overall mobility, energy conservation, and balance. Pt maintained stable vitals on room air throughout, including blood pressure, and denied any chest pain/tightness or dizziness throughout. Pt appears to be close to her fun ctional mobility baseline; therefore, recommend pt discharge home with assist from her oncemedically ready. Pt has no further inpatient PT needs, yet should continue to mobilize frequently with staff while in house to prevent deconditioning. Inpatient Physical Therapy Plan: evaluation only Discharge Recommendations: Based on current findings, other (see comments) (home with assist from ) Consult Recommendations: No other consults recommended at this time. Equipment needs: None (has wide FWW, SPC, quad cane, commode, and shower chair) Physical Therapy Goals: To be achieved by 10/11/2023: Pt. to demonstrate knowledge of safety limitations and precautions and will appropriately request assistance for functional activities and to mobilize. Pt. to demonstrate understanding of appropriate therapeutic exercises. Pt. to perform bed mobility with supervision with HOB flat. Pt. to perform sit<>stand transfers with supervision with the least restrictive assistive device. Pt. to perform stand-step transfers with supervision with the least restrictive assistive device. Pt. to ambulate 150 feet with supervision using the least restrictive assistive device. Pt. to ambulate up/down 5 step/stairs using two rails with supervision. Pt will tolerate progression towards upright with stable vital signs. 2017 PT Evaluation Code Rationale: Diagnosis & Pertinent Co-Morbidities, personal factors, and present illness affecting Plan of Care: Total # of Factors: 0 1-2 3+ X Examination of body system impairments, functional limitations and behaviors, and/or participation restrictions Addressing 1-2 elements Addressing 3 + elements X Addressing 4 + elements Clinical presentation: See assessment above. Stable/Uncomplicated Evolving/Fluctuating Symptoms Unstable/Unpredictable X Clinical decision making of low complexity based on pt's functional performance as outlined in thisevaluation. Time IN/OUT: 13:32-14:05 Total Time: 33 minutes, Low Complexity Evaluation Meredith Dacosta, PT Pager: [phone] Physical Therapy Inpatient Rehabilitation Department * Rusty Ohara MD - 10/10/2023 7:10 AM EDT Inpatient Cardiology Progress Note Patient Name: Isaura Aguiar Date of Admission: 10/06/2023 ( Hospital Day 4 days ) Service: S1 ID: Isaura Aguiar is a 82 y.o. female w/ PMH of pulmonary embolism and DVT (on Xarelto, last dose on 10/05 AM), HFpEF, HTN, HLD, CKD3b, and multiple prior malignancies (s/p right nephrectomy and ureterectomy) who presented to OSH with chest tightness and was found to have severe hypertension with newly reduced EF and massive troponin leak, and is transferred to [facility] for NSTEMI and hypertensiveemergency management. Active Problems: Active Hospital Problems Diagnosis Hypertensive crisis, unspecified Resolved Hospital Problems No resolved problems to display. 24 hr events: - No acute events overnight - Cardiac Cath on 10/08: Mild diffuse CAD - Started Hydralazine 25mg TID, increased coreg to 12.5 BID This am - Feeling well with NAD ROS: Denies CP, SOB, palpitations, PND, Orthopnea, dizziness/LH, LE swelling or pain, n/v, abd pain. Physical Exam: Last value Range last 24 hrs Temperature Temp: 36.4 ??C (97.5 ??F) Temp: [36.4 ??C (97.5 ??F)-36.6 ??C (97.9 ??F)] Heart Rate Heart Rate: 61 Heart Rate: [55-108] Blood Pressure BP: 131/50 BP: (126-218)/(47-96) Respiratory Rate Resp: 16 Resp: [7-20] SpO2 SpO2: 96 % SpO2: [85 %-99 %] Weight: Patient Vitals for the past 168 hrs: Weight 10/10/23 0626 117.1 kg (258 lb 3.2 oz) 10/09/23 0507 117.2 kg (258 lb 6.1 oz) 10/08/23 0415 118.6 kg (261 lb 7.5 oz) 10/07/23 0555 118.1 kg (260 lb 5.8 oz) 10/06/232002 119 kg (262 lb 5.6 oz) Admit Weight: 119 kg Yesterday's net I/O's: Intake/Output Summary (Last 24 hours) at 10/10/2023 0710 Last data filed at 10/10/2023 0504 Gross per 24 hour Intake 346 ml Output 2000 ml Net -1654 ml Net I/O's since admission: Patient Vitals for the past 168 hrs: Weight 10/10/23 0626 117.1 kg (258 lb 3.2 oz) 10/09/23 0507 117.2 kg (258 lb 6.1 oz) 10/08/23 0415 118.6 kg (261 lb 7.5 oz) 10/07/23 0555 118.1 kg (260 lb 5.8 oz) 10/06/232002 119 kg (262 lb 5.6 oz) Physical Exam: Gen: in bed, in NAD, BMI 51 HEENT: anicteric, EOMI intact, MMM CV: bradycardic, regular, no obvious murmurs Resp: CTAB, no crackles/wheezes/ronchi, normal work of breathing Abd: normal bowel sounds, soft, non-tender to palpation, nondistended, no rebound or guarding Ext: 2+ distal pulses, bilateral nonpitting edema Neuro: no focal deficits noted, CN II-XII grossly intact, moves all extremities spontaneously Psych: appropriate mood and affect Skin: no rashes, lesions, or ulcerations noted Labs Recent Labs 10/10/2331310/09/23 0611 10/08/23421 WBC 5.7 4.8 5.5 HGB 9.9* 9.7* 9.9* HCT 32.6* 32.4* 32.7* PLATELET 205 219 210 Recent Labs 10/10/2331310/09/23 0611 10/08/23 042 NA 141 139 142 K 4.2 4.0 4.4 CL 107 106 109* CO2 BUN 14 13 14 CREATININE 1.23* 1.17 1.22* No results for input(s): AST, ALT, ALKPHOS, BILITOT, BILIDIR in the last 168 hours. Recent Labs 10/10/2331310/09/23 0611 10/08/23 0422 10/07/23 0033 CALCIUM 9.2 9.4 9.3 8.8 8.8 MAGNESIUM 0.85 0.90 0.92 0.88 PHOS -- -- -- 3.2 Recent Labs 10/07/23 0033 INR 1.3 PT 14.7* PTT 37 No results for input(s): CK, TROPONINT in the last 168 hours. Scheduled Medications: enoxaparin 40 mg Subcutaneous Nightly carvediloL 12.5 mg Oral BID WC hydrALAZINE 25 mg Oral TID magnesium oxide 400 mg Oral Daily aspirin 81 mg Oral Daily atorvastatin 80 mg Oral QPM pantoprazole EC 20 mg Oral Daily vitamin B Complex-vitamin C-folic Acid 1 tablet Oral Daily TTE 10/07/2023: Interpretation Summary Limited echo performed by overnight [...] mild to moderate AR, TR, and PI. Infusing Medications: nitroGLYcerin 25 mcg/min (10/09/231810) PRN Medications: nitroGLYcerin, acetaminophen Assessment: Isaura Aguiar is a 82 y.o. female w/ PMH of pulmonary embolism and DVT (on Xarelto,last dose on 10/05 AM), HFpEF, HTN, HLD, CKD3b, and multiple prior malignancies (s/p right nephrectomy and ureterectomy) who presented to OSH with chest tightness and was found to have severe hypertension with newly reduced EF and massive troponin leak, and is transferred to [facility] for NSTEMI and hypertensive emergency management. 10/10/23: Given Cardiac cath showing mild diffuse CAD, will optimize BP control without nitro drip and resume home xarelto. Will d/c hydralazine and nitro drip and add GDMT - Spironolactone 25mg QD and resume home Jardiance. If further BP control is needed, can consider LENO/ARBs Plan: #NSTEMI, c/f Type 1 #Hypertensive Emergency #Hx of HFpEF #HLD S/p aspirin 324mg load Last Xarelto 10mg dose on 10/05 AM CRP 5.6 D-Dimer 606 - Continue aspirin 81mg qd - heparin gtt d/pete on 10/08 - Continue atorvastatin 80mg qPM (in place of home simvastatin 10mg qhs) - D/pete Nitro drip and Hydralazine - Resume home Jardiance and Xarelto - 10/09 - Start Aldactone 25 QD 10/09 - Serial EKGs for chest pain Cardiac Risk Stratification --HbA1c: 5.9 --TSH: 1.30 --Lipids: LDL 55 #Hx of Pulmonary Embolism and DVT - Resume home Xarelto 10mg qd - 10/09 #CKD3b (borderline between 3a and 3b) - Shikha-kely qd - Avoid nephrotoxic medications - Consider fluid resuscitation before and after contrast load for cath - Outpatient: will need PTH, Vitamin D assessment Code Status: Attempt Cardiopulmonary Resuscitation - Inpatient Coleman Macdonald MD Internal Medicine PGY-1 Cardiology Attending Note I interviewed and examined the patient during comprehensive bedside rounds. I concur with the summary of interval events, active hospital-focused problem list and plan of care as described in the note below. I personally reviewed the medications, laboratory results, treatment decisions and updated the patient. Rusty Ohara MD, FACP, FACC Section of Cardiovascular Medicine [facility] Teletype [place] [employer] plate layer [facility] This patient meets or has met medical criteria to require an inpatient level of care, i.e. a minimum of two midnights in the hospital with multiple complex problems. * Rusty Ohara MD - 10/09/2023 7:01 AM EDT Inpatient Cardiology Progress Note Patient Name: Isaura Aguiar Date of Admission: 10/06/2023 ( Hospital Day 3 days ) Service: S1 ID: Isaura Aguiar is a 82 y.o. female w/ PMH of pulmonary embolism and DVT (on Xarelto, last dose on 10/05 AM), HFpEF, HTN, HLD, CKD3b, and multiple prior malignancies (s/p right nephrectomy and ureterectomy) who presented to OSH with chest tightness and was found to have severe hypertension with newly reduced EF and massive troponin leak, and is transferred to [facility] for NSTEMI and hypertensiveemergency management. Active Problems: Active Hospital Problems Diagnosis Hypertensive crisis, unspecified Resolved Hospital Problems No resolved problems to display. 24 hr events: - No acute events overnight - Plan for cath 10/08 ROS: Denies CP, SOB, palpitations, PND, Orthopnea, dizziness/LH, LE swelling or pain, n/v, abd pain. Physical Exam: Last value Range last 24 hrs Temperature Temp: 36.6 ??C (97.9 ??F) Temp: [36.4 ??C (97.5 ??F)-36.6 ??C (97.9 ??F)] Heart Rate Heart Rate: 60 Heart Rate: [58-74] Blood Pressure BP: 139/68 BP: (139-171)/(44-83) Respiratory Rate Resp: 12 Resp: [12-17] SpO2 SpO2: 95 % SpO2: [95 %-98 %] Weight: Patient Vitals for the past 168 hrs: Weight 10/09/23 0507 117.2 kg (258 lb 6.1 oz) 10/08/23414 118.6 kg (261 lb 7.5 oz) 10/07/23554 118.1 kg (260 lb 5.8 oz) 10/06/232002 119 kg (262 lb 5.6 oz) Admit Weight: 119 kg Yesterday's net I/O's: Intake/Output Summary (Last 24 hours) at 10/09/2023 0701 Last data filed at 10/09/2023 0515 Gross per 24 hour Intake 1464.92 ml Output 1100 ml Net 364.92 ml Net I/O's since admission: Patient Vitals for the past 168 hrs: Weight 10/09/23 0507 117.2 kg (258 lb 6.1 oz) 10/08/23414 118.6 kg (261 lb 7.5 oz) 10/07/23 0555 118.1 kg (260 lb 5.8 oz) 10/06/232002 119 kg (262 lb 5.6 oz) Physical Exam: Gen: in bed, in NAD, BMI 51 HEENT: anicteric, EOMI intact, MMM CV: bradycardic, regular, no obvious murmurs Resp: CTAB, no crackles/wheezes/ronchi, normal work of breathing Abd: normal bowel sounds, soft, non-tender to palpation, nondistended, no rebound or guarding Ext: 2+ distal pulses, bilateral nonpitting edema Neuro: no focal deficits noted, CN II-XII grossly intact, moves all extremities spontaneously Psych: appropriate mood and affect Skin: no rashes, lesions, or ulcerations noted Labs Recent Labs 10/08/2342110/07/23 0033 WBC 5.5 6.9 HGB 9.9* 9.6* HCT 32.7* 31.7* PLATELET 210 239 Recent Labs 10/08/2342110/07/23 0033 NA 142 141 K 4.4 3.7 CL 109* 106 CO2 24 23 BUN 14 20* CREATININE 1.22* 1.24* No results for input(s): AST, ALT, ALKPHOS, BILITOT, BILIDIR in the last 168 hours. Recent Labs 10/08/2342110/07/23 0033 CALCIUM 9.3 8.8 8.8 MAGNESIUM 0.92 0.88 PHOS -- 3.2 Recent Labs 10/07/23 0033 INR 1.3 PT 14.7* PTT 37 No results for input(s): CK, TROPONINT in the last 168 hours. Scheduled Medications: magnesium oxide 400 mg Oral Daily aspirin 81 mg Oral Daily atorvastatin 80 mg Oral QPM pantoprazole EC 20 mg Oral Daily vitamin B Complex-vitamin C-folic Acid 1 tablet Oral Daily carvediloL 3.125 mg Oral BID WC Infusing Medications: heparin (porcine) infusion 1,000 Units/hr (10/08/23 0745) nitroGLYcerin Stopped (10/07/23 0127) PRN Medications: nitroGLYcerin, acetaminophen, heparin (porcine) infusion AND heparin (porcine) Assessment: Isaura Aguiar is a 82 y.o. female w/ PMH of pulmonary embolism and DVT (on Xarelto,last dose on 10/05 AM), HFpEF, HTN, HLD, CKD3b, and multiple prior malignancies (s/p right nephrectomy and ureterectomy) who presented to OSH with chest tightness and was found to have severe hypertension with newly reduced EF and massive troponin leak, and is transferred to [facility] for NSTEMI and hypertensive emergency management. Going for cath this morning. Troponins flat so will d/c trend. Plan to transition to LMWH after cath from heparin. Plan: #NSTEMI, c/f Type 1 #Hypertensive Emergency #Hx of HFpEF #HLD S/p aspirin 324mg load Last Xarelto 10mg dose on 10/05 AM CRP 5.6 D-Dimer 606 - Continue aspirin 81mg qd - Continue heparin gtt - Continue atorvastatin 80mg qPM (in place of home simvastatin 10mg qhs) - Titrate nitroglycerin gtt to SBP 160-70 - F/u formal TTE - NPO for possible cath (though may need to wait 48 hours from Xarelto dose) - Serial EKGs for chest pain - If cath is negative, will likely need cardiac MRI Cardiac Risk Stratification --HbA1c: 5.9 --TSH: 1.30 --Lipids: LDL 55 #Hx of Pulmonary Embolism and DVT - Hold home Xarelto 10mg qd #CKD3b (borderline between 3a and 3b) - Shikha-kely qd - Avoid nephrotoxic medications - Consider fluid resuscitation before and after contrast load for cath - Outpatient: will need PTH, Vitamin D assessment Code Status: Attempt Cardiopulmonary Resuscitation - Inpatient Coleman Macdonald MD Internal Medicine PGY-1 Cardiology Attending Note I interviewed and examined the patient during comprehensive bedside rounds. I concur with the summary of interval events, active hospital-focused problem list and plan of care as described in the note below. I personally reviewed the medications, laboratory results, treatment decisions and updated the patient. Rusty Ohara MD, FACP, FACC Section of Cardiovascular Medicine [facility] Teletype [place] [employer] [facility] This patient meets or has met medical criteria to require an inpatient level of care, i.e. a minimum of two midnights in the hospital with multiple complex problems. * Rusty Ohara MD - 10/08/2023 7:48 AM EDT Inpatient Cardiology Progress Note Patient Name: Isarua Aguiar Date of Admission: 10/06/2023 ( Hospital Day 2 days ) Service: S1 ID: Isaura gAuiar is a 82 y.o. female w/ PMH of pulmonary embolism and DVT (on Xarelto, last dose on 10/05 AM), HFpEF, HTN, HLD, CKD3b, and multiple prior malignancies (s/p right nephrectomy and ureterectomy) who presented to OSH with chest tightness and was found to have severe hypertension with newly reduced EF and massive troponin leak, and is transferred to [facility] for NSTEMI and hypertensiveemergency management. Active Problems: Active Hospital Problems Diagnosis Hypertensive crisis, unspecified Resolved Hospital Problems No resolved problems to display. 24 hr events: - No acute events overnight ROS: Denies CP, SOB, palpitations, PND, Orthopnea, dizziness/LH, LE swelling or pain, n/v, abd pain. Physical Exam: Last value Range last 24 hrs Temperature Temp: 36.5 ??C (97.7 ??F) Temp: [36.4 ??C (97.5 ??F)-36.9 ??C (98.5 ??F)] Heart Rate Heart Rate: 60 Heart Rate: [49-67] Blood Pressure BP: 143/56 BP: (126-160)/(50-104) Respiratory Rate Resp: 14 Resp: [9-19] SpO2 SpO2: 96 % SpO2: [95 %-100 %] Weight: Patient Vitals for the past 168 hrs: Weight 10/08/23 0415 118.6 kg (261 lb 7.5 oz) 10/07/23554 118.1 kg (260 lb 5.8 oz) 10/06/232002 119 kg (262 lb 5.6 oz) Admit Weight: 119 kg Yesterday's net I/O's: Intake/Output Summary (Last 24 hours) at 10/08/2023 0751 Last data filed at 10/08/2023 0700 Gross per 24 hour Intake 360 ml Output 1450 ml Net -1090 ml Net I/O's since admission: Patient Vitals for the past 168 hrs: Weight 10/08/23 0415 118.6 kg (261 lb 7.5 oz) 10/07/23554 118.1 kg (260 lb 5.8 oz) 10/06/232002 119 kg (262 lb 5.6 oz) Physical Exam: Gen: in bed, in NAD, BMI 51 HEENT: anicteric, EOMI intact, MMM CV: bradycardic, regular, no obvious murmurs Resp: CTAB, no crackles/wheezes/ronchi, normal work of breathing Abd: normal bowel sounds, soft, non-tender to palpation, nondistended, no rebound or guarding Ext: 2+ distal pulses, bilateral nonpitting edema Neuro: no focal deficits noted, CN II-XII grossly intact, moves all extremities spontaneously Psych: appropriate mood and affect Skin: no rashes, lesions, or ulcerations noted Labs Recent Labs 10/08/2342110/07/2332 WBC 5.5 6.9 HGB 9.9* 9.6* HCT 32.7* 31.7* PLATELET 210 239 Recent Labs 10/08/2342110/07/23 0033 NA 142 141 K 4.4 3.7 CL 109* 106 CO2 24 23 BUN 14 20* CREATININE 1.22* 1.24* No results for input(s): AST, ALT, ALKPHOS, BILITOT, BILIDIR in the last 168 hours. Recent Labs 10/08/2342110/07/233 CALCIUM 9.3 8.8 8.8 MAGNESIUM 0.92 0.88 PHOS -- 3.2 Recent Labs 10/07/23 003 INR 1.3 PT 14.7* PTT 37 No results for input(s): CK, TROPONINT in the last 168 hours. Scheduled Medications: magnesium oxide 400 mg Oral Daily aspirin 81 mg Oral Daily atorvastatin 80 mg Oral QPM pantoprazole EC 20 mg Oral Daily vitamin B Complex-vitamin C-folic Acid 1 tablet Oral Daily carvediloL 3.125 mg Oral BID WC Infusing Medications: heparin (porcine) infusion 1,000 Units/hr (10/08/23 5647) nitroGLYcerin Stopped (10/07/23 0127) PRN Medications: nitroGLYcerin, acetaminophen, heparin (porcine) infusion AND heparin (porcine) Assessment: Isaura Aguiar is a 82 y.o. female w/ PMH of pulmonary embolism and DVT (on Xarelto,last dose on 10/05 AM), HFpEF, HTN, HLD, CKD3b, and multiple prior malignancies (s/p right nephrectomy and ureterectomy) who presented to OSH with chest tightness and was found to have severe hypertension with newly reduced EF and massive troponin leak, and is transferred to [facility] for NSTEMI and hypertensive emergency management. Going for cath this morning. Rest of plan to follow. Plan: #NSTEMI, c/f Type 1 #Hypertensive Emergency #Hx of HFpEF #HLD S/p aspirin 324mg load Last Xarelto 10mg dose on 10/05 AM CRP 5.6 D-Dimer 606 - Continue aspirin 81mg qd - Continue heparin gtt - Continue atorvastatin 80mg qPM (in place of home simvastatin 10mg qhs) - Titrate nitroglycerin gtt to SBP 160-70 - Trend Troponin q6h - F/u formal TTE - NPO for possible cath (though may need to wait 48 hours from Xarelto dose) - Serial EKGs for chest pain - If cath is negative, will likely need cardiac MRI Cardiac Risk Stratification --HbA1c: 5.9 --TSH: 1.30 --Lipids: LDL 55 #Hx of Pulmonary Embolism and DVT - Hold home Xarelto 10mg qd #CKD3b (borderline between 3a and 3b) - Shikha-kely qd - Avoid nephrotoxic medications - Consider fluid resuscitation before and after contrast load for cath - Outpatient: will need PTH, Vitamin D assessment Code Status: Attempt Cardiopulmonary Resuscitation - Inpatient Freddy Rocha MD Internal Medicine PGY-2 Cardiology Attending Note I interviewed and examined the patient during comprehensive bedside rounds. I concur with the summary of interval events, active hospital-focused problem list and plan of care as described in the note below. I personally reviewed the medications, laboratory results, treatment decisions and updated the patient. Rusty Ohara MD, FACP, FACC Section of Cardiovascular Medicine [facility] Teletype [place] mica plate layer [facility] This patient meets or has met medical criteria to require an inpatient level of care, i.e. a minimum of two midnights in the hospital with multiple complex problems. * Meredith Huang RD - 10/07/2023 12:18 PM EDT Nutrition Brief Note Isaura Aguiar is a 82 y.o. female w/ PMH of pulmonary embolism and DVT (on Xarelto, last dose on 10/05 AM), HFpEF, HTN, HLD, CKD3b, and multiple prior malignancies (s/p right nephrectomy and ureterectomy) who presented to OSH with chest tightness and was found to have severe hypertension with newly reduced EF and massive troponin leak, and is transferred to [facility] for NSTEMI and hypertensive emergency management. Reason for intervention: MST evaluation Nutrition Recommendations: ADAT: Goal is [facility]. ONS available PRN. Monitor intake. Consider daily MVI in light of age. Monitor BM. Weekly weight. 10/06: Pt seen for MST consult. Pt reports baseline intake of 2 meals daily, consistent up to admission. Pt states appetite/intake is low at times r/t digestive issues. Will utilize Boost at home as needed, but not frequently. Pt reports gradual weight loss x 18 months. No significant weight changesx [address] documented in this encounter H&P Notes * Vahid Burrows MD - 10/09/2023 8:29 AM EDT Images from the original note were not included. Isaura Aguiar is an 82 y.o. female with a history of pulmonary embolism and DVT (on Xarelto, last dose on 10/05 AM), HFpEF, HTN, HLD, CKD3b, and multiple prior malignancies (s/p right nephrectomy and ureterectomy) who presented to OSH with chest tightness and was found to have severe hypertension with newly reduced EF and massive troponin leak (max of >4000). Patient denies any history of bleeding issues and specifically denies hematochezia, melena, hematemesis, intraabdominal bleeding, intracranial bleeding. Planned/pending surgeries: None Current antiplatelets/anticoagulants: Heparin gtt, ASA NPO status: Midnight Outpatient Medications Marked as Taking for the 10/06/23 encounter (Hospital Encounter) Medication Sig Dispense Refill Jardiance 10 mg tablet Take 10 mg by mouth daily. furosemide (Lasix) 20 mg tablet Take 40 mg by mouth daily. meclizine (Antivert) 12.5 mg tablet Take 12.5 mg by mouth 3 times daily as needed. rivaroxaban (Xarelto) 15 mg Tablet Take 10 mg by mouth daily. LORazepam (ATIVAN) 0.5 mg Tablet take 1 tablet by mouth ONE HOUR PRIOR TO PET SCAN,MAY REPEAT AT TIME OF SCAN if needed 0 omeprazole (PRILOSEC) 10 mg Capsule, Delayed Release(E.C.) Take 10 mg by mouth daily. Daily as needed magnesium oxide (MAG-OX) 400 mg Tablet Take 1 tablet by mouth daily. 30 tablet 2 docusate sodium (COLACE) 100 mg Capsule Take 100 mg by mouth as needed. Calcium Carbonate-Vitamin D3 600 mg(1,500mg) -400 unit Tab Take 1 tablet by mouth daily. Reported on 01/03/2017 simvastatin (ZOCOR) 10 mg tablet Take 10 mg by mouth daily. ACETAMINOPHEN (TYLENOL ORAL) Take 500 mg by mouth every 6 hours. *taking 2 tablets every 6 hrs as needed* BP 149/57 (BP Location (NBP): Right arm, Patient Position: Lying) Pulse 59 Temp 36.4 ??C (97.5 ??F) (Oral) Resp 13 Ht 152.4 cm (5') Wt 117.2 kg (258 lb 6.1 oz) SpO2 97% BMI 50.46 kg/m?? General - No acute distress. Well-groomed/nourished. Speech is normal HEENT - EOMI. No scleral icterus. Noninjected. Moist membranes. No cervical LAD Respiratory: Clear to auscultation bilaterally. Good effort/excursion. Cardiac - RRR, normal S1/S2, no audible murmur, gallop or rubs. No JVD. No MIKEL. Abdomen - Soft, nontender/nondistended, normal active bowel sounds. Extremities - Warm. No clubbing or cyanosis. Radial Pulses: 2+ B/L; DP Pulses: 2+ B/L Neuro - Limited exam. No deficits. ASA: 3: Patient with severe systemic disease Mallampati: II Labs reviewed and notable for: Lab Results Component Value Date WBC 4.8 10/09/2023 HGB 9.7 (L) 10/09/2023 HCT 32.4 (L) 10/09/2023 MCV 82.7 10/09/2023 PLATELET 219 10/09/2023 Lab Results Component Value Date CREATININE 1.17 10/09/2023 BUN 13 10/09/2023 NA 139 10/09/2023 K 4.0 10/09/2023 CL 106 10/09/2023 CO2 25 10/09/2023 Lab Results Component Value Date INR 1.3 10/07/2023 TTE 10/07/2023: Interpretation Summary Limited echo performed by overnight [...] mild to moderate AR, TR, and PI. A/P: The indications, expected benefits, and potential risks of diagnostic or therapeutic catheterization were reviewed in detail with the patient. The potential for , myocardial infarction, arrhythmias, stroke, kidney failure, hemorrhage, allergic reaction to contrast, vascular complications and infection were reviewed in detail. The possibility of stenting and other percutaneous intervention, with associated risk, was reviewed. The possible need for emergent coronary artery bypass surgery wasreviewed. Alternatives were discussed and the patient's questions were answered. Following this discussion, the patient consented to the procedure and signed a form attesting to this. - Proceed as planned - Consent reviewed and signed - No obvious CI to DAPT - Sedation plan: moderate/conscious sedation - FULL CODE Vahid Burrows MD Platform Inspector PGY4 * Rusty Ohara MD - 10/07/2023 2:08 AM EDT Images from the original note were not included. Cardiology H&P Patient info: Name: Isaura Aguiar : 1940 PCP: Dulce Hidalgo MD PCP phone number: [phone] Date of Admission: 10/06/2023 ( Hospital Day 1 day ) Attending:Rusty Ohara MD ID: Isaura Aguiar is a 82 y.o. female w/ PMH of pulmonary embolism and DVT (on Xarelto, last dose on 10/05 AM), HFpEF, HTN, HLD, CKD3b, and multiple prior malignancies (s/p right nephrectomy and ureterectomy) who presented to OSH with chest tightness and was found to have severe hypertension with newly reduced EF and massive troponin leak, and is transferred to [facility] for NSTEMI and hypertensiveemergency management. HPI: Patient received her regular iron infusion. Shortly thereafter, when she was walking from the car back home (150 feet) distance, she became dyspneic. She sat down to take her medications and felt chest tightness which was atypical. She describes the pain as a belt around her chest that is being tightened with some radiation into jaw (clenched jaw sensation). No aggravating or alleviating factors. Denies arm, neck pain, tearing or ripping sensation. Of note, there is a strong family history of CAD in her siblings though no one had their first stent placed before the age of 55 and there is no history of sudden cardiac . No prior tobacco use. No recent exposures to sick contacts. OSH ED Course Vitals: T 36.8, HR64, RR18, BP 225/112, SpO2 96% on RA Labs: 64 (at 14:47) --> 41173 (at 16:05, ULN 60), proBNP 1349 (H), WBC 6.3, Hb 10.7 (L), MCV 82 (N), Plt 268, Eos 2.0% (N), PT 12.5 (H), INR 1.3 (H), APTT 37.7 (H), Na 142, K 3.8, BUN 23 (H), Cr 1.4 (H), eGFR 38 (L), LFTs normal, Lipase 23 (N) EKG: sinus rhythm, minimal depression in V4, slight elevation in aVR and aVL, no ST elevations (changes are new compared to EKG 2 months ago) Imaging: CXR with cardiomegaly, mild pulmonary venous congestion, and prominent interstitial lung markings in the bases which may reflect edema or interstitial pneumonitis POCUS: LV dysfunction with WMA, EF is reduced around 30% Interventions: SL nitroglycerin 0.4mg for angina, aspirin 324mg load, nitro gtt at 50 for HTN (lastrecorded BP 170-180/low 60s prior to transfer) On my evaluation, BP is in 150s/70s on nitro gtt. No further chest tightness or SOB. Denies fevers,chills, nightsweats, lightheadedness, presyncope, syncope, orthopnea, PND, abdominal pain, nausea, vomiting, melena, hematochezia, hematuria, dysuria, paresthesias, and weakness. ROS as per HPI. PMH - Hx of Pulmonary Embolism and DVT on Xarelto - HFpEF - HTN - HLD - CKD3b (borderline between 3a and 3b) - Stage III Ovarian Cancer (1994) - Breast Cancer, Stage 1 (BRCA2 positive, 04/2006) - Metastatic Urethelial Carcinoma - Ventral Hernia - Osteopenia - Actinic Keratoses - Seborrheic Keratoses - Lumbar Radiculopathy - Benign Tremor PSH - Lymph Node Biopsy - JOANN/BSO - Appendectomy - Partial Bowel Resection - Bilateral Mastectomies - Bilateral Oophorectomies - Ventral Hernia Repair - Right Meniscus Repair - Total Knee Replacement - Right Nephrectomy with Ureterectomy (2017) - Laparoscopic Adhesion Lysis (2017) - Incisional Hernia Repair (2019) - Endoscopy 2021 (with dilation) - Colonoscopy 2021 Family History - Father: prostate cancer - Mother: CVA - Brother: four of them had cardiac stents placed, all were older than 55 years - Brother: cardiac stent --> CABG - Sister: stent placed in early 70s - Maternal Aunt: breast cancer - Maternal Uncle: lung cancer Social History - Tobacco Use: none - ETOH Use: none - Illicit Substances: none Allergies: Allergies Allergen Reactions Glucosamine-Chondroitn Sulf.Na Nausea Only Intense cramping too Iv 3000 [Transparent Dressings] Rash Erythema, blisters Sulfa (Sulfonamide Antibiotics) Other (See Comments) liver damage Home Medications - Atenolol 50mg qd - Calcium Carbonate -Vitamin D3 600-400mg - 1 tablet qd - Cetirizine 10mg qd PRN - Docusate (colace) 100mg qd PRN - Furosemide 40mg qd - Jardiance 10mg qd - Lorazepam 0.5mg one hour before CT/MRI scan - Magnesium oxide 400mg qd - Meclizine 12.5mg TID PRN - Omeprazole 10mg qd - Rivaroxaban 10mg qd - Simvastatin 10mg qhs Not Taking - Zofran - Compazine - Gabapentin Objective: Vitals Last value Range last 24 hrs Temperature Temp: 36.4 ??C (97.6 ??F) Temp: [36.4 ??C (97.6 ??F)-36.6 ??C (97.8 ??F)] Heart Rate Heart Rate: 56 Heart Rate: [52-68] Blood Pressure BP: 169/61 BP: (106-169)/(49-87) Art Line BP BP (Arterial Line): -- MAP (NBP): [65 mmHg-106 mmHg] Respiratory Rate Resp: 17 Resp: [8-22] SpO2 SpO2: 97 % SpO2: [87 %-99 %] Oxygen Delivery Oxygen Therapy O2 Device: None (Room air) Reason for Oxygen: Patient currently on room air Intake/Output Summary (Last 24 hours) at 10/07/2023 0345 Last data filed at 10/07/2023 0300 Gross per 24 hour Intake 550 ml Output 1000 ml Net -450 ml Patient Vitals for the past 168 hrs: Weight 10/06/232002 119 kg (262 lb 5.6 oz) Admit wt: 119 kg Physical Exam: Gen: in bed, in NAD, BMI 51 HEENT: anicteric, EOMI intact, MMM CV: bradycardic, regular, no obvious murmurs Resp: CTAB, no crackles/wheezes/ronchi, normal work of breathing Abd: normal bowel sounds, soft, non-tender to palpation, nondistended, no rebound or guarding Ext: 2+ distal pulses, bilateral nonpitting edema Neuro: no focal deficits noted, CN II-XII grossly intact, moves all extremities spontaneously Psych: appropriate mood and affect Skin: no rashes, lesions, or ulcerations noted Lines/Drains/Airways Lines: PIV - 18G L, PIV - 20G R Labs: Recent Labs 10/07/23 0033 WBC 6.9 HGB 9.6* HCT 31.7* PLATELET 239 MCV 80.7* Recent Labs 10/07/23 0033 NA 141 CL 106 CO2 23 K 3.7 MAGNESIUM 0.88 PHOS 3.2 CALCIUM 8.8 8.8 BUN 20* CREATININE 1.24* Coags Recent Labs 10/07/23 0033 INR 1.3 PT 14.7* PTT 37 DDIMER 606* Endocrine Recent Labs 10/07/23 0033 TSH 1.30 Microbiology: none Imaging: none Assessment & Plan: Isaura Aguiar is a 82 y.o. female w/ PMH of pulmonary embolism and DVT (on Xarelto, last dose on 10/05 AM), HFpEF, HTN, HLD, CKD3b, and multiple prior malignancies (s/p right nephrectomy and ureterectomy) who presented to OSH with chest tightness and was found to have severe hypertension with newly reduced EF and massive troponin leak, and is transferred to [facility] for NSTEMI and hypertensive emergency management, on HD# 1. 10/06/2023: patient's presentation is atypical as she had mild chest tightness but was found to haveBP 225/112 with troponin-I leak >78493 (ULN 60) and TTE with newly reduced EF at 30-35% and wallmotion abnormalities. Differential includes hypertensive emergency sequelae, ACS, PE (though was not tachycardic, tachypneic, or hypoxic), aortic dissection (though no back pain, pulses and BP were symmetric in upper extremities), myocarditis (CRP only mildly elevated at 5.6), transfusion reaction (atypical and unlikely), and sequelae of prior chemotherapy or immunotherapy (would need to review cancer treatment history). We decided not to load plavix given extensive atherosclerotic disease on prior imaging. Since troponin here is also >4000, we started heparin gtt (though she took her lastdose of Xarelto on 10/05 AM) and she is s/p aspirin load. Will continue ACS management and plan for cath (though may need to wait for 48 hours from 10/05 AM's Xarelto dose). #NSTEMI, c/f Type 1 #Hypertensive Emergency #Hx of HFpEF #HLD S/p aspirin 324mg load Last Xarelto 10mg dose on 10/05 AM CRP 5.6 D-Dimer 606 - Continue aspirin 81mg qd - Continue heparin gtt - Continue atorvastatin 80mg qPM (in place of home simvastatin 10mg qhs) - Titrate nitroglycerin gtt to SBP 160-70 - Trend Troponin q6h - F/u formal TTE - NPO for possible cath (though may need to wait 48 hours from Xarelto dose) - Serial EKGs for chest pain - If cath is negative, will likely need cardiac MRI Cardiac Risk Stratification --HbA1c: 5.9 --TSH: 1.30 --Lipids: LDL 55 #Hx of Pulmonary Embolism and DVT - Hold home Xarelto 10mg qd #CKD3b (borderline between 3a and 3b) - Shikha-kely qd - Avoid nephrotoxic medications - Consider fluid resuscitation before and after contrast load for cath - Outpatient: will need PTH, Vitamin D assessment #Routine Diet: NPO diet (Give Meds) DVT Prophylaxis: heparin gtt GI Prophylaxis: pantoprazole 20mg qd Code Status: Attempt Cardiopulmonary Resuscitation - Inpatient Dispo: Pending clinical course Margarita Ware MD Internal Medicine, PGY-2 Cardiology, M1-S2, #[id number] 10/07/23 3:45 AM Cardiology Attending Note I interviewed and examined the patient during comprehensive bedside rounds. I concur with the summary of interval events, active hospital-focused problem list and plan of care as described in the note below. I personally reviewed the medications, laboratory results, treatment decisions and updated the patient. Rusty Ohara MD, FACP, FACC Section of Cardiovascular Medicine [facility] Teletype [place] mica plate layer [facility] This patient meets or has met medical criteria to require an inpatient level of care, i.e. a minimum of two midnights in the hospital with multiple complex problems. documented in this encounter Miscellaneous Notes * Plan of Care - Rafaela Carroll RN - 10/11/2023 3:21 PM EDT OUTCOME EVALUATION NOTE: OUTCOME SUMMARY: Pt denies CP or SOB. VSS. Pt BP within parameters. Team into see pt this morning and explain meds. Pt up ambulating minimally. Pt c/o of nausea and vomiting. Pt given zofran. Pt went to abd.xray to r/u obstruction. PLAN MOVING FORWARD: Discharge. CARE PLAN GOAL OUTCOME EVALUATION: Problem: Adult Inpatient Plan of Care Goal: Plan of Care Review Outcome: Ongoing (Interventions Implemented as Appropriate) Goal: Patient-Specific Goal (Individualized) Outcome: Ongoing (Interventions Implemented as Appropriate) Goal: Absence of Hospital-Acquired Illness or Injury Outcome: Ongoing (Interventions Implemented as Appropriate) Goal: Optimal Comfort and Wellbeing Outcome: Ongoing (Interventions Implemented as Appropriate) Goal: Readiness for Transition of Care Outcome: Ongoing (Interventions Implemented as Appropriate) Problem: Chest Pain Goal: Resolution of Chest Pain Symptoms Outcome: Ongoing (Interventions Implemented as Appropriate) Problem: Fall Injury Risk Goal: Absence of Fall and Fall-Related Injury Outcome: Ongoing (Interventions Implemented as Appropriate) Problem: Arrhythmia/Dysrhythmia (Cardiac Catheterization) Goal: Stable Heart Rate and Rhythm Outcome: Ongoing (Interventions Implemented as Appropriate) Problem: Bleeding (Cardiac Catheterization) Goal: Absence of Bleeding Outcome: Ongoing (Interventions Implemented as Appropriate) Problem: Contrast-Induced Injury Risk (Cardiac Catheterization) Goal: Absence of Contrast-Induced Injury Outcome: Ongoing (Interventions Implemented as Appropriate) Problem: Embolism (Cardiac Catheterization) Goal: Absence of Embolism Signs and Symptoms Outcome: Ongoing (Interventions Implemented as Appropriate) Problem: Ongoing Anesthesia/Sedation Effects (Cardiac Catheterization) Goal: Anesthesia/Sedation Recovery Outcome: Ongoing (Interventions Implemented as Appropriate) Problem: Pain (Cardiac Catheterization) Goal: Acceptable Pain Control Outcome: Ongoing (Interventions Implemented as Appropriate) Problem: Vascular Access Protection (Cardiac Catheterization) Goal: Absence of Vascular Access Complication Outcome: Ongoing (Interventions Implemented as Appropriate) Problem: Pain Acute Goal: Acceptable Pain Control and Functional Ability Outcome: Ongoing (Interventions Implemented as Appropriate) Problem: Infection Goal: Absence of Infection Signs and Symptoms Outcome: Ongoing (Interventions Implemented as Appropriate) * Plan of Care - Stef Bang RN - 10/11/2023 7:29 AM EDT Pt was c/o constipation and nausea mid morning, team was notified. Zofran, miralax and ducolax wereadministered. Pt had 1 episode of about 200mL of emesis. Team was notified. PRN lactulose offered but refused for now for later if no BM few hrs post previous bowel regiment Problem: Adult Inpatient Plan of Care Goal: Plan of Care Review Outcome: Ongoing (Interventions Implemented as Appropriate) Goal: Patient-Specific Goal (Individualized) Outcome: Ongoing (Interventions Implemented as Appropriate) Goal: Absence of Hospital-Acquired Illness or Injury Outcome: Ongoing (Interventions Implemented as Appropriate) Goal: Optimal Comfort and Wellbeing Outcome: Ongoing (Interventions Implemented as Appropriate) Goal: Readiness for Transition of Care Outcome: Ongoing (Interventions Implemented as Appropriate) Problem: Chest Pain Goal: Resolution of Chest Pain Symptoms Outcome: Ongoing (Interventions Implemented as Appropriate) Problem: Fall Injury Risk Goal: Absence of Fall and Fall-Related Injury Outcome: Ongoing (Interventions Implemented as Appropriate) Problem: Arrhythmia/Dysrhythmia (Cardiac Catheterization) Goal: Stable Heart Rate and Rhythm Outcome: Ongoing (Interventions Implemented as Appropriate) Problem: Bleeding (Cardiac Catheterization) Goal: Absence of Bleeding Outcome: Ongoing (Interventions Implemented as Appropriate) Problem: Contrast-Induced Injury Risk (Cardiac Catheterization) Goal: Absence of Contrast-Induced Injury Outcome: Ongoing (Interventions Implemented as Appropriate) Problem: Embolism (Cardiac Catheterization) Goal: Absence of Embolism Signs and Symptoms Outcome: Ongoing (Interventions Implemented as Appropriate) Problem: Ongoing Anesthesia/Sedation Effects (Cardiac Catheterization) Goal: Anesthesia/Sedation Recovery Outcome: Ongoing (Interventions Implemented as Appropriate) Problem: Pain (Cardiac Catheterization) Goal: Acceptable Pain Control Outcome: Ongoing (Interventions Implemented as Appropriate) Problem: Vascular Access Protection (Cardiac Catheterization) Goal: Absence of Vascular Access Complication Outcome: Ongoing (Interventions Implemented as Appropriate) Problem: Pain Acute Goal: Acceptable Pain Control and Functional Ability Outcome: Ongoing (Interventions Implemented as Appropriate) Problem: Infection Goal: Absence of Infection Signs and Symptoms Outcome: Ongoing (Interventions Implemented as Appropriate) * Plan of Care - Rafaela Carroll RN - 10/10/2023 7:16 PM EDT OUTCOME EVALUATION NOTE: OUTCOME SUMMARY: Pt denies CP or SOB. VSS. BP has been within parameters. NTG gtt discontinued. Pt up ambulating SBAwith walker. Pt up to BR. PLAN MOVING FORWARD: Continue to monitor BP. CARE PLAN GOAL OUTCOME EVALUATION: Problem: Adult Inpatient Plan of Care Goal: Plan of Care Review Outcome: Ongoing (Interventions Implemented as Appropriate) Goal: Patient-Specific Goal (Individualized) Outcome: Ongoing (Interventions Implemented as Appropriate) Goal: Absence of Hospital-Acquired Illness or Injury Outcome: Ongoing (Interventions Implemented as Appropriate) Goal: Optimal Comfort and Wellbeing Outcome: Ongoing (Interventions Implemented as Appropriate) Goal: Readiness for Transition of Care Outcome: Ongoing (Interventions Implemented as Appropriate) Problem: Chest Pain Goal: Resolution of Chest Pain Symptoms Outcome: Ongoing (Interventions Implemented as Appropriate) Problem: Fall Injury Risk Goal: Absence of Fall and Fall-Related Injury Outcome: Ongoing (Interventions Implemented as Appropriate) Problem: Arrhythmia/Dysrhythmia (Cardiac Catheterization) Goal: Stable Heart Rate and Rhythm Outcome: Ongoing (Interventions Implemented as Appropriate) Problem: Bleeding (Cardiac Catheterization) Goal: Absence of Bleeding Outcome: Ongoing (Interventions Implemented as Appropriate) Problem: Contrast-Induced Injury Risk (Cardiac Catheterization) Goal: Absence of Contrast-Induced Injury Outcome: Ongoing (Interventions Implemented as Appropriate) Problem: Embolism (Cardiac Catheterization) Goal: Absence of Embolism Signs and Symptoms Outcome: Ongoing (Interventions Implemented as Appropriate) Problem: Ongoing Anesthesia/Sedation Effects (Cardiac Catheterization) Goal: Anesthesia/Sedation Recovery Outcome: Ongoing (Interventions Implemented as Appropriate) Problem: Pain (Cardiac Catheterization) Goal: Acceptable Pain Control Outcome: Ongoing (Interventions Implemented as Appropriate) Problem: Vascular Access Protection (Cardiac Catheterization) Goal: Absence of Vascular Access Complication Outcome: Ongoing (Interventions Implemented as Appropriate) Problem: Pain Acute Goal: Acceptable Pain Control and Functional Ability Outcome: Ongoing (Interventions Implemented as Appropriate) Problem: Infection Goal: Absence of Infection Signs and Symptoms Outcome: Ongoing (Interventions Implemented as Appropriate) * Initial Assessments - Abby Cheng RN - 10/10/2023 2:40 PM EDT Office of Care Management Initial Assessment Medical record reviewed. Plan of care and patient status discussed with direct care Registered Nurse and/or Care Team in multidisciplinary rounds. Reason for Hospitalization: It felt like a rubber band was wrapped around the chest that was squeezing tight Present on Admission: Hypertensive crisis, unspecified Hospitalizations Within the Past 30 Days: no previous admission in last 30 days Patient receiving hospital care under Inpatient status. Admission order reviewed. Health/Prescription Coverage: Primary Insurance: MEDICARE Payor: MEDICARE / Plan: MEDICARE PART A & B / Product Type: *No Product type* / Secondary Insurance: FOR LIFE ONLY if patient has Medicare A&B - Does this patient have secondary insurance?: Yes ( for Life) ; Prescription Coverage: Yes Preferred Pharmacy: [facility] [address] [address] Flare Code [address] [id number] [place], [place] - [address] [place] [address] [address] Advance Care Planning: Attempt Cardiopulmonary Resuscitation - Inpatient Received -Advanced Directive: Yes, on file Who is your DPOA-HC?: Spouse Current Functional Ability: Assistive Person Functional Status Prior to Admission: Independent Home Environment: Others in the home: spouse, grandchild(vincent), other relative(s) (31yo grand daughter, 6 and 8yo great grandchildren living with pt currently). Current Living Arrangements: home/apartment/condo. Accessibility Concerns:2 floors, live on main level, [address]. Current DME: cane - quad, walker - rolling, shower chair, commode chair [address] [facility] [address] Social & Family Supports: All names listed below confirmed with patient as current and correct Extended Emergency Contact Information Primary Emergency Contact: Taran Aguiar Address: [address] [place] [address] [facility] Relation: Spouse Secondary Emergency Contact: [place] [address] [facility] Mobile Relation: Child Current Care Provided by: self Transportation: no concerns Transportation Anticipated: family or friend will provide Assessment: Patient with no apparent RNCM/SW needs at this time. No housing, transportation, insurance, resources concerns identified at this time. Supports in place to achieve a safe post-hospital transition. No identified barriers to accessing necessary care and/or follow-up after discharge. Plan: Patient to d/c to home via private vehicle with Taran/ when medically ready. Registered Nurse Mold Worker / Bale Stacker will continue to follow patient???s progress and remain available if situation changes for coordination of care, psychosocial support and/or discharge planning. Office of Care Management Abby Cheng RN * Plan of Care - Stef Bang RN - 10/10/2023 7:45 AM EDT Pt had an uneventful night, denied chest pain, sob and discomfort. Right radial/groin approached CDI during shift. Nitro gtt still infusing per protocol for BP management during shift. Problem: Adult Inpatient Plan of Care Goal: Plan of Care Review Outcome: Ongoing (Interventions Implemented as Appropriate) Goal: Patient-Specific Goal (Individualized) Outcome: Ongoing (Interventions Implemented as Appropriate) Goal: Absence of Hospital-Acquired Illness or Injury Outcome: Ongoing (Interventions Implemented as Appropriate) Goal: Optimal Comfort and Wellbeing Outcome: Ongoing (Interventions Implemented as Appropriate) Goal: Readiness for Transition of Care Outcome: Ongoing (Interventions Implemented as Appropriate) Problem: Chest Pain Goal: Resolution of Chest Pain Symptoms Outcome: Ongoing (Interventions Implemented as Appropriate) Problem: Fall Injury Risk Goal: Absence of Fall and Fall-Related Injury Outcome: Ongoing (Interventions Implemented as Appropriate) Problem: Arrhythmia/Dysrhythmia (Cardiac Catheterization) Goal: Stable Heart Rate and Rhythm Outcome: Ongoing (Interventions Implemented as Appropriate) Problem: Bleeding (Cardiac Catheterization) Goal: Absence of Bleeding Outcome: Ongoing (Interventions Implemented as Appropriate) Problem: Contrast-Induced Injury Risk (Cardiac Catheterization) Goal: Absence of Contrast-Induced Injury Outcome: Ongoing (Interventions Implemented as Appropriate) Problem: Embolism (Cardiac Catheterization) Goal: Absence of Embolism Signs and Symptoms Outcome: Ongoing (Interventions Implemented as Appropriate) Problem: Ongoing Anesthesia/Sedation Effects (Cardiac Catheterization) Goal: Anesthesia/Sedation Recovery Outcome: Ongoing (Interventions Implemented as Appropriate) Problem: Pain (Cardiac Catheterization) Goal: Acceptable Pain Control Outcome: Ongoing (Interventions Implemented as Appropriate) Problem: Vascular Access Protection (Cardiac Catheterization) Goal: Absence of Vascular Access Complication Outcome: Ongoing (Interventions Implemented as Appropriate) Problem: Pain Acute Goal: Acceptable Pain Control and Functional Ability Outcome: Ongoing (Interventions Implemented as Appropriate) Problem: Infection Goal: Absence of Infection Signs and Symptoms Outcome: Ongoing (Interventions Implemented as Appropriate) * Plan of Care - Alcira Calles RN - 10/09/2023 2:57 PM EDT OUTCOME EVALUATION NOTE: OUTCOME SUMMARY: Patient AOx4, VSS, RA, NSR/SB on tele; see scanned docs. NPO since this morning for [facility]. LHC this afternoon, no interventions. TR Band off at 1745, site CDI, no bleeding or hematoma. Patient denies CP, SOB, or dizziness. SBP>160 since returning from senior label specialist, titrating nitro gtt and Q5 BP checks- MD notified. Patient on bedrest til 1700, ambulated to bathroom and radial/femoral sites no oozingor bleeding. at bedside, call miller within reach. PLAN MOVING FORWARD: Monitor right radial site for bleeding, hematoma Q4VS Nitro gtt to keep SBP between 160-170 INDIVIDUALIZED FALL PREVENTION INTERVENTIONS: Patient-specific fall risk factors per assessment: [current deficits]: wires, tubing, generalized fatigue Assistance [level of assistance required for transfers and ambulation]: SBA Supervision [direct monitoring required during toileting and ADLs]: independent Surveillance [continuous indirect monitoring]: tele/O2 Patient-specific fall prevention interventions for sensory deficits provided, if applicable: [X] No CPG GOAL OUTCOME EVALUATION: Problem: Adult Inpatient Plan of Care Goal: Plan of Care Review Outcome: Ongoing (Interventions Implemented as Appropriate) Goal: Patient-Specific Goal (Individualized) Outcome: Ongoing (Interventions Implemented as Appropriate) Goal: Absence of Hospital-Acquired Illness or Injury Outcome: Ongoing (Interventions Implemented as Appropriate) Goal: Optimal Comfort and Wellbeing Outcome: Ongoing (Interventions Implemented as Appropriate) Goal: Readiness for Transition of Care Outcome: Ongoing (Interventions Implemented as Appropriate) Problem: Chest Pain Goal: Resolution of Chest Pain Symptoms Outcome: Ongoing (Interventions Implemented as Appropriate) Problem: Fall Injury Risk Goal: Absence of Fall and Fall-Related Injury Outcome: Ongoing (Interventions Implemented as Appropriate) Problem: Arrhythmia/Dysrhythmia (Cardiac Catheterization) Goal: Stable Heart Rate and Rhythm Outcome: Ongoing (Interventions Implemented as Appropriate) Problem: Bleeding (Cardiac Catheterization) Goal: Absence of Bleeding Outcome: Ongoing (Interventions Implemented as Appropriate) Problem: Contrast-Induced Injury Risk (Cardiac Catheterization) Goal: Absence of Contrast-Induced Injury Outcome: Ongoing (Interventions Implemented as Appropriate) Problem: Embolism (Cardiac Catheterization) Goal: Absence of Embolism Signs and Symptoms Outcome: Ongoing (Interventions Implemented as Appropriate) Problem: Ongoing Anesthesia/Sedation Effects (Cardiac Catheterization) Goal: Anesthesia/Sedation Recovery Outcome: Ongoing (Interventions Implemented as Appropriate) Problem: Pain (Cardiac Catheterization) Goal: Acceptable Pain Control Outcome: Ongoing (Interventions Implemented as Appropriate) Problem: Vascular Access Protection (Cardiac Catheterization) Goal: Absence of Vascular Access Complication Outcome: Ongoing (Interventions Implemented as Appropriate) * Brief Op Note - Stuart Yousif MD - 10/09/2023 2:54 PM EDT Preliminary Cardiac Catheterization Procedure Note: Patient Name: Isaura Aguiar : [id number] MR#: [id number] Case Date: 10/09/2023 Motor Teacher: Surgeon(s) and Role: * Taqueria Garcia MD - Primary * Stuart Yousif MD - Fellow - Assisting Preoperative diagnosis: NSTEMI Postoperative diagnosis: Type II CA Procedure(s) performed: [facility] Cors Femoral angiography Perclose Access: Right radial and right SERVICE DESK ANALYST A time-out was conducted prior to the start of the procedure to verify the correct patient and procedure, procedure location, and all relevant critical information. 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 There is only mild diffuse CAD The LM/LAD and LCX has mild diffuse CAD LVEDP of 20mmHg Severe, uncontrolled HTN with SBP > 200mmHg The patient tolerated the procedures smoothly and was transferred from the cardiac catheterization lab to the next level of care in good condition. No evident early complications. Full report to follow. Stuart Yousif MD * Plan of Care - Haile Maurer RN - 10/08/2023 2:56 AM EDT OUTCOME EVALUATION NOTE: OUTCOME SUMMARY: No significant events overnight, rested well without c/o of CP or SOB. Heparin drip infusing @ 750units/hr. UFH Therapuetic x2. Nitro drip remains off at this time. NPO since [place] for planned procedure. PLAN MOVING FORWARD: Plan for Left Heart Cath today. CARE PLAN GOAL OUTCOME EVALUATION: Problem: Adult Inpatient Plan of Care Goal: Absence of Hospital-Acquired Illness or Injury Outcome: Ongoing (Interventions Implemented as Appropriate) Goal: Optimal Comfort and Wellbeing Outcome: Ongoing (Interventions Implemented as Appropriate) Problem: Chest Pain Goal: Resolution of Chest Pain Symptoms Outcome: Ongoing (Interventions Implemented as Appropriate) Problem: Fall Injury Risk Goal: Absence of Fall and Fall-Related Injury Outcome: Ongoing (Interventions Implemented as Appropriate) * Plan of Care - Gladis Croft RN - 10/07/2023 6:52 PM EDTSummary: Day Summary OUTCOME EVALUATION NOTE: OUTCOME SUMMARY: Isaura Aguiar was admitted for NSTEMI. Today, A&Ox4, Hypertensive otherwise VSS on RA, NSR.Pt had chest pressure, gave nitro x2 with relief. EKG completed and MD notified per protocol. PLAN MOVING FORWARD: [] NPO tonight - Cath tomorrow [] [facility] due 2100 CPG GOAL OUTCOME EVALUATION: Problem: Adult Inpatient Plan of Care Goal: Plan of Care Review Outcome: Ongoing (Interventions Implemented as Appropriate) Goal: Patient-Specific Goal (Individualized) Outcome: Ongoing (Interventions Implemented as Appropriate) Goal: Absence of Hospital-Acquired Illness or Injury Outcome: Ongoing (Interventions Implemented as Appropriate) Goal: Optimal Comfort and Wellbeing Outcome: Ongoing (Interventions Implemented as Appropriate) Goal: Readiness for Transition of Care Outcome: Ongoing (Interventions Implemented as Appropriate) Problem: Chest Pain Goal: Resolution of Chest Pain Symptoms Outcome: Ongoing (Interventions Implemented as Appropriate) Problem: Fall Injury Risk Goal: Absence of Fall and Fall-Related Injury Outcome: Ongoing (Interventions Implemented as Appropriate) * Plan of Care - Terry Shankar RN - 10/07/2023 7:00 AM EDT SHIFT EVALUATION NOTE: SHIFT SUMMARY: Pt AOx4. Bed/chair alarm maintained for high fall risk. VSS on RA, assessment as charted. Pt deniesCP or SOB. SB/NSR on tele, see scanned documents. See flowsheets for I&O. Pt arrived from OSH on nitro gtt, titrated off (See EMAR), SBPs back up to 150s, team aware. Heparin gtt started per protocol. Potassium repleted. NPO @0300. Uneventful shift for pt, call miller within reach. PLAN MOVING FORWARD: Continue to monitor per protocol Discharge planning as appropriate INDIVIDUALIZED FALL PREVENTION INTERVENTIONS: Patient-specific fall risk factors per assessment: [current deficits]: Limited mobility, tele wires, SpO2 monitor wire, unfamiliar environment Assistance [level of assistance required for transfers and ambulation]: SBA w/ walker Supervision [direct monitoring required during toileting and ADLs]: Independent Surveillance [continuous indirect monitoring]: Telemetry, continuous pulse oximetry Patient-specific fall prevention interventions for sensory deficits provided, if applicable: Lighting adjusted for specific tasks/activities, purposeful rounding, able to make needs known, non skid socks, bed in lowest/locked position, personal items within reach, call miller within reach, bed/chair alarm maintained CARE PLAN GOAL OUTCOME EVALUATION: Problem: Adult Inpatient Plan of Care Goal: Plan of Care Review Outcome: Ongoing (Interventions Implemented as Appropriate) Goal: Patient-Specific Goal (Individualized) Outcome: Ongoing (Interventions Implemented as Appropriate) Goal: Absence of Hospital-Acquired Illness or Injury Outcome: Ongoing (Interventions Implemented as Appropriate) Goal: Optimal Comfort and Wellbeing Outcome: Ongoing (Interventions Implemented as Appropriate) Goal: Readiness for Transition of Care Outcome: Ongoing (Interventions Implemented as Appropriate) Problem: Chest Pain Goal: Resolution of Chest Pain Symptoms Outcome: Ongoing (Interventions Implemented as Appropriate) documented in this encounter Plan of Treatment Not on file documented as of this encounter Procedures Procedure Name Priority Date/Time Associated Diagnosis Comments XR ABDOMEN FLAT AND UPRIGHT Routine 10/11/2023 11:21 AM EDT HEMOGRAM Routine 10/11/2023 4:35 AM EDT DIFFERENTIAL, AUTOMATED Routine 10/11/19 4:35 AM EDT HC CBC,PLT & AUTO DIFF Routine 4:35 AM EDT HC MAGNESIUM, SERUM Routine 10/11/2023 4 :35 AM EDT BASIC METABOLIC PANEL (NON-FASTING) Routine 10/11/2023 4:35 AM EDT HEMOGRAM Routine 10/10/2023 3:14 AM EDT DIFFERENTIAL, AUTOMATED Routine 10/10/19 3:14 AM EDT HC VENIPUNCTURE Routine 10/10/2023 3:14 AM EDT HC MAGNESIUM, SERUM Routine 10/10/2023 3 :14 AM EDT BASIC METABOLIC PANEL (NON-FASTING) Routine 10/10/2023 3:14 AM EDT CARDIAC CATHETERIZATION Routine 10/09/19 2:53 PM EDT HC VENIPUNCTURE STAT 10/09/2023 6:11 AM EDT HC UNFRACTIONATED HEPARIN (HEP UFH) Timed 10/09/2023 6:11 AM EDT SCAN, PERIPHERAL BLOOD Routine 6:11 AM EDT HEMOGRAM Routine 10/09/2023 6:11 AM EDT DIFFERENTIAL, AUTOMATED Routine 10/09/19 6:11 AM EDT HC CBC,PLT & AUTO DIFF Routine 6:11 AM EDT HC MAGNESIUM, SERUM Routine 10/09/2023 6 :11 AM EDT BASIC METABOLIC PANEL (NON-FASTING) Routine 10/09/2023 6:11 AM EDT HC TROPONIN T STAT 10/08/2023 5:55 PM EDT HC UNFRACTIONATED HEPARIN (HEP UFH) Timed 10/08/2023 5:55 PM EDT HC TROPONIN T STAT 10/08/2023 11:20 AM EDT HC UNFRACTIONATED HEPARIN (HEP UFH) Timed 10/08/2023 11:20 AM EDT HC TROPONIN T STAT 10/08/2023 4:22 AM EDT HC UNFRACTIONATED HEPARIN (HEP UFH) Timed 10/08/2023 4:22 AM EDT HEMOGRAM Routine 10/08/2023 4:22 AM EDT DIFFERENTIAL, AUTOMATED Routine 10/08/19 4:22 AM EDT HC CBC,PLT & AUTO DIFF Routine 4:22 AM EDT HC MAGNESIUM, SERUM Routine 10/08/2023 4 :22 AM EDT BASIC METABOLIC PANEL (NON-FASTING) Routine 10/08/2023 4:22 AM EDT HC UNFRACTIONATED HEPARIN (HEP UFH) Timed 10/07/2023 9:51 PM EDT HC VENIPUNCTURE STAT 10/07/2023 5:52 PM EDT HC VENIPUNCTURE Timed 10/07/2023 3:45 PM EDT EKG 12-LEAD STAT 10/07/2023 1:44 PM EDT Hypertensive crisis HC TROPONIN T STAT 10/07/2023 10:48 AM EDT HC VENIPUNCTURE Timed 10/07/2023 7:52 AM EDT HC VENIPUNCTURE STAT 10/07/2023 3:28 AM EDT EKG 12-LEAD STAT 10/07/2023 1:41 AM EDT Hypertensive crisis HC TROPONIN T STAT 10/07/2023 12:33 AM EDT CRP, ACUTE INFLAMMATION Routine 10/07/19 12:33 AM EDT HEMOGRAM Routine 10/07/2023 12:33 AM EDT DIFFERENTIAL, AUTOMATED Routine 10/07/19 12:33 AM EDT D-DIMER, QUANTITATIVE Routine 10/07/2023 12:33 AM EDT HC PARTIAL THROMBOPLASTIN TIME Routine 10/07/2023 12:33 AM EDT HC PROTHROMBIN TIME Routine 10/07/2023 1 2:33 AM EDT HC CBC,PLT & AUTO DIFF Routine 12:33 AM EDT HC THYROID STIMULATING HORMONE, SERUM Routine 10/07/2023 12:33 AM EDT HC PHOSPHORUS, SERUM Routine 10/07/2023 12:33 AM EDT HC MAGNESIUM, SERUM Routine 10/07/2023 1 2:33 AM EDT HC HEMOGLOBIN A1C Routine 10/07/2023 12: 33 AM EDT HC CALCIUM, SERUM Routine 10/07/2023 12: 33 AM EDT LIPID PANEL (REFLEX DIRECT LDL) Routine 10/07/2023 12:33 AM EDT BASIC METABOLIC PANEL (NON-FASTING) Routine 10/07/2023 12:33 AM EDT documented in this encounter Results * XR Abdomen Flat & Upright (10/11/2023 11:21 AM EDT) 48domain WORKSTATION ID [id number] RAD Anatomical Region Laterality Modality Abdomen N/A Digital Radiogra phy Impressions 10/11/2023 11:39 AM EDT Normal bowel gas pattern, no obstruction. Thank you for letting us participate in the care of this patient. ??If you are a health care provider and have any questions regarding this report, please contact the number below. ??For patients who have questions please contact the health care provider that requested your imaging first. ? Electronically signed by: Gavin Griffith MD, [facility] ([phone]), at 10/11/2023 11:39 AM Narrative 10/11/2023 11:39 AM EDT EXAMINATION: XR [...] patients who have questions please contactthe health care provider that requested your imaging first. Electronically signed by: Gavin Griffith MD, [facility]([phone]), at 10/11/2023 11:39 AM Rusty Ohara MD IMG DX ORDERABLES * Differential, Automated (10/11/2023 4:35 AM EDT) Neutrophils % 74.3 % [facility] Neutr Abs (ANC) 4.96 1.70 - 6.10 x10(3)/mcL [facility] Lymphocytes % 16.2 % [facility] Lymphocytes Abs 1.1 0.9 - 3.2 x10(3)/[facility] Monocytes % 7.4 % [facility] Monocyte Abs 0.5 0.3 - 0.9 x10(3)/[facility] Eosinophils % 1.4 % [facility] Eosinophils Abs 0.1 0.0 - 0.4 x10(3)/[facility] Basophils % 0.2 % [facility] Basophils Abs 0.0 0.0 - 0.1 x10(3)/[facility] Immature Gran % 0.50 % [facility] Comment: Immature granulocytes(IG's)percentage and absolute count will include metamyelocytes, myelocytes, and promyelocytes. Blood smears from CBCs yielding IG's will be scanned manually for concordance. If this scan disagrees with the automated IG or if promyelocytes are noted, a manual differential will be performed. [place] Gran Abs 0.03 0.00 - 0.04 x10(3)/[facility] Blood 10/11/2023 4:35 AM EDT 10/11/2023 4:47 AM EDT Narrative Resulting Agency Comment Spec In Lab Margarita Ware MD HEMATOLOGY ORDERABLE S [facility] [place] [address] * (ABNORMAL) Hemogram (10/11/2023 4:35 AM EDT) WBC 6.7 4.0 - 9.5 x10(3)/[facility] RBC 4.18 4.00 - 5.21 x10(6)/[facility] Hemoglobin 10.4(L) 11.7 - 15.5 g/dL [facility] Hematocrit 34.3(L) 35.7 - 45.8 % [facility] MCV 82.1(L) 82.6 - 94.4 fL [facility] MCH 24.9(L) 27.1 - 32.0 pg [facility] MCHC 30.3(L) 31.7 - 35.0 g/dL [facility] Platelets 220 145 - 357 x10(3)/[facility] RDWSD 59.7(H) 37.0 - 46.0 fL [facility] RDWCV 21.0(H) 11.5 - 14.1 % [facility] MPV 10.5 7.6 - 12.9 [facility] nRBC % Auto 0.0 % [facility] nRBC Abs Auto 0.000 0.000 - 0.000 x10(3)/[facility] Blood 10/11/2023 4:35 AM EDT 10/11/2023 4:47 AM EDT Narrative Resulting Agency Comment Spec In Lab Margarita Ware MD HEMATOLOGY ORDERABLE S [facility] [place] [address] * Magnesium (10/11/2023 4:35 AM EDT) Magnesium 0.92 0.69 - 1.07 mmol/L [facility] Blood 10/11/2023 4:35 AM EDT 10/11/2023 4:47 AM EDT Narrative Resulting Agency Comment Spec In Lab Rusty Ohara MD CHEMISTRY ORDERABL ES Performing Organization Address City/[facility]/ZIP Co de Phone Number [facility] [place] [address] * (ABNORMAL) Basic Metabolic Panel (non-fasting) (10/11/2023 4:35 AM EDT) Glucose Lvl 139 65 - 199 mg/dL [facility] Comment:Diabetes: >=200 mg/d L plus symptoms BUN 14 8 - 18 mg/dL [facility] Creatinine 1.34(H) 0.70 - 1.20 mg/dL [facility] Sodium 142 135 - 145 mmol/L [facility] Potassium 4.4 3.5 - 5.0 mmol/L [facility] Comment: Please note: ??Patients with WBC >100,000 may have falsely elevated Potassium levels. ??For accurate Potassium quantification in these patients send serum separator tube (gold top) for subsequent determinations. ??Contact the Clinical Chemistry Laboratory if there are any questions. Chloride 107 98 - 107 mmol/L [facility] CO2 22 22 - 31 mmol/L [facility] Anion Gap 13 5 - 15 mmol/L [facility] Calcium 9.5 8.5 - 10.5 mg/dL [facility] Estimated GFR 40(L) >=60 mL/min/1. 73 m?? [facility] Comment: This patient's estimated GFR [...] Lab Rusty Ohara MD CHEMISTRY ORDERABL ES [facility] [place] [address] * Differential, Automated (10/10/2023 3:14 AM EDT) Neutrophils % 63.6 % [facility] Neutr Abs (ANC) 3.64 1.70 - 6.10 x10(3)/[facility] Lymphocytes % 23.4 % [facility] Lymphocytes Abs 1.3 0.9 - 3.2 x10(3)/[facility] Monocytes % 10.1 % [facility] Monocyte Abs 0.6 0.3 - 0.9 x10(3)/[facility] Eosinophils % 2.3 % [facility] Eosinophils Abs 0.1 0.0 - 0.4 x10(3)/[facility] Basophils % 0.3 % [facility] Basophils Abs 0.0 0.0 - 0.1 x10(3)/[facility] Immature Gran % 0.30 % [facility] Comment: Immature granulocytes(IG's)percentage and absolute count will include metamyelocytes, myelocytes, and promyelocytes. Blood smears from CBCs yielding IG's will be scanned manually for concordance. If this scan disagrees with the automated IG or if promyelocytes are noted, a manual differential will be performed. Shoshana Gran Abs 0.02 0.00 - 0.04 x10(3)/[facility] LABORATORY Blood 10/10/2023 3:14 AM EDT 10/10/2023 3:26 AM EDT Narrative Resulting Agency Comment Spec In Lab Margarita Ware MD HEMATOLOGY ORDERABLE S [facility] [place] [address] * (ABNORMAL) Hemogram (10/10/2023 3:14 AM EDT) WBC 5.7 4.0 - 9.5 x10(3)/[facility] LABORATORY RBC 3.97(L) 4.00 - 5.21 x10(6)/[facility] LABORATORY Hemoglobin 9.9(L) 11.7 - 15.5 g/dL [facility] Hematocrit 32.6(L) 35.7 - 45.8 % [facility] MCV 82.1(L) 82.6 - 94.4 fL [facility] MCH 24.9(L) 27.1 - 32.0 pg [facility] MCHC 30.4(L) 31.7 - 35.0 g/dL [facility] Platelets 205 145 - 357 x10(3)/[facility] LABORATORY RDWSD 57.6(H) 37.0 - 46.0 fL [facility] RDWCV 20.4(H) 11.5 - 14.1 % [facility] MPV 10.9 7.6 - 12.9 [facility] LABORATORY nRBC % Auto 0.0 % [facility] LABORATORY nRBC Abs Auto 0.000 0.000 - 0.000 x10(3)/[facility] LABORATORY Blood 10/10/2023 3:14 AM EDT 10/10/2023 3:26 AM EDT Narrative Resulting Agency Comment Spec In Lab Margarita Ware MD HEMATOLOGY ORDERABLE S Performing Organization Address City/[facility]/ZIP Co de Phone Number [facility] [place] [address] * Magnesium (10/10/2023 3:14 AM EDT) Magnesium 0.85 0.69 - 1.07 mmol/L [facility] Blood 10/10/2023 3:14 AM EDT 10/10/2023 3:26 AM EDT Narrative Resulting Agency Comment Spec In Lab Rusty Ohara MD CHEMISTRY ORDERABL ES Performing Organization Address City/[facility]/ZIP Co de Phone Number [facility] [place] [address] * (ABNORMAL) Basic Metabolic Panel (non-fasting) (10/10/2023 3:14 AM EDT) Glucose Lvl 112 65 - 199 mg/dL [facility] Comment:Diabetes: >=200 mg/d L plus symptoms BUN 14 8 - 18 mg/dL [facility] Creatinine 1.23(H) 0.70 - 1.20 mg/dL [facility] Sodium 141 135 - 145 mmol/L [facility] Potassium 4.2 3.5 - 5.0 mmol/L [facility] Comment: Please note: ??Patients with WBC >100,000 may have falsely elevated Potassium levels. ??For accurate Potassium quantification in these patients send serum separator tube (gold top) for subsequent determinations. ??Contact the Clinical Chemistry Laboratory if there are any questions. Chloride 107 98 - 107 mmol/L [facility] CO2 24 22 - 31 mmol/L [facility] Anion Gap 10 5 - 15 mmol/L [facility] Calcium 9.2 8.5 - 10.5 mg/dL [facility] Estimated GFR 44(L) >=60 mL/min/1. 73 m?? [facility] Comment: This patient's estimated GFR [...] and symptoms in addition to eGFR. Blood 10/10/2023 3:14 AM EDT 10/10/2023 3:26 AM EDT Narrative Resulting Agency Comment Spec In Lab Rusty Ohara MD CHEMISTRY ORDERABL ES [facility] [place] [address] * CARDIAC CATHETERIZATION (10/09/2023 2:53 PM EDT) Anatomical Region Laterality Modality Other Narrative 10/18/2023 3:57 PM EDT ?[facility] ? Cardiac Catheterization/Intervention Report ? Patient Name: Isaura Aguiar. ? Procedure Date: 10/09/2023 ? A #: [id number] ? Primary Physician: Taqueria Garcia ? Case #: [id number] ? File Name: [id number] ? Catheterization Order Number: [id number] ? [facility] ? Final Report [place], [place] ? Patient Name: ? Isaura Aguiar ? ID#: ?[id number] ? : ?1940 ? Procedure Date: ? October 09, 2023 ? Case #: ? [id number] ? Room: ? 6 ? Case Physician: ? Emad Radha M.D. ? Start: ?13:47 ?Fellow: ? Stuart N Benja, M.D. ? Admission: ??10/06/2023 ? Referring Physician: ??Jakob R Vipul, M.D. ? Procedures: ?* Coronary Angiography ?* Left Heart Catheterization ?* Access Site Angiography ?* Peripheral Intravascular Ultrasound ?* Vascular Ultrasound ? History ?Isaura Aguiar is an 82 year old woman. She has hypertension. The ?patient's smoking status is Former. She has hypercholesterolemia managed ?with lipid therapy. The patient is also status post an acute non-ST ?elevation myocardial infarction. Prior to the initiation of this ?procedure, the patient was designated as ASA Class III. The CSHA clinical ?frailty scale is 3: Managing Well. ? Diagnostic Tests: ?Electrocardiography: ? EKG was assessed by ECG. EKG was Normal. ?Medications Prior to Procedure: ? Aspirin and Statin. ? Indications for Diagnostic Cath: ?The priority of the diagnostic procedure was Urgent. The indication for ?the senior label specialist visit is ACS greater than 24 hrs. Chest pain symptom ?assessment was: Atypical Angina. ? Technique: ?A 6 SLFr sheath was inserted in the right radial artery utilizing the ?Seldinger technique. A 6Fr sheath was inserted in the right femoral ?artery utilizing the Seldinger technique. The left coronary artery was ?injected utilizing a 6Fr JL 4 catheter. A 6Fr JR 4 catheter was used to ?inject the right coronary artery. Left ventricular pressure was performed ?utilizing a 6Fr JR 4 catheter. A total of 150cc of Omnipaque were opened, ?116cc of Omnipaque were administered and 34cc of Omnipaque were wasted. ?Radiation: Fluoro time was 21.0 minutes, dose area product was 46.80 ?Gy/cm2 and air kerma was 679 mGY. See the case log for additional ?details. ? Hemodynamics: ?Left Heart Pressures ? Resting: ? Syst Diast ? EDP ?a ?v ? m ?Ao 209 ?? 77 ?130 ?LV 209 ? 25 ? Coronary Angiography: ?Dominance: Right ?Left Main ? There was mild diffuse (<=25% stenosis) disease of the entire vessel ? segment of the left main artery. ?Left Anterior Descending ? There was mild diffuse (<=25% stenosis) disease of the entire vessel ? segment of the left anterior descending artery (LAD). ?Left Circumflex ? There was mild diffuse (<=25% stenosis) disease of the entire vessel ? segment of the left circumflex artery (LCX). ?Right Coronary Artery ? There was mild diffuse (<=25% stenosis) disease of the entire vessel ? segment of the right coronary artery (RCA). ? 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 ?Ramus ? There was mild diffuse (<=25% stenosis) disease of the entire vessel ? segment of the ramus. ? Vascular Access: ?Vascular Access Angiogram: ? A selective angiogram at the right femoral artery revealed mild ? diffuse disease. ?Vascular Ultrasound: ? Ultrasound of the right femoral artery was used to guide access and ? showed vessel patent with mild disease. ?Vascular Access Management: ? Mechanical Compression of the right radial artery access site was ? performed. ? A 6 Fr Perclose was deployed at the right femoral artery access ? site. This device was successful. ? Conclusions: ?* Nonobstructive coronary artery disease ?* Elevated left ventricular end diastolic pressure ? Complications/Events: ?The patient had no complications during these procedures. ? Post Procedure Fluid Recommendations: ?IV fluid at 234 mL/hr for 4 hours for a total of 936 mL. These ?recommendations are made at the time of the procedure. Patient and ?provider preferences or a changing clinical situation may require ?modification of this regimen. ? Recommendations: ?Based upon the results of this procedure, it was recommended that the ?patient be managed with medical therapy. ? Comments: ?1. Procedure through the right radial was aborted due to severe ?subclavian tortuosity and radial spasm ?2. 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 There is only mild diffuse CAD ?3. The LM/LAD and LCX has mild diffuse CAD ?4. LVEDP of 20mmHg ?5. Severe, uncontrolled HTN with SBP > 200mmHg. ?The attending physician was present for the entire procedure. ?Dr. Taqueria Garcia M.D. was present during the moderate sedation ?intraservice time as documented by the sedation nurse. ??Case time = 00:58. ?Dr. Taqueria Garcia M.D. performed the coronary angiography, left heart ?catheterization, access site angiography, peripheral intravascular ?ultrasound and vascular ultrasound. ? Emad Sarah Beth Garcia ? Electronically Signed by: Taqueria Garcia M.D. ? Report Finalized: 10/18/2023 ??15:50 ? Report Last Ammended: 2023 ??08:32 ? Procedure Note Taqueria Garcia MD - 2023 [facility] Cardiac Catheterization/Intervention Report Patient Name: Isaura Aguiar Procedure Date: 10/09/2023 A #: [id number] Primary Physician: Taqueria Garcia Case #: [id number] File Name: [id number] Catheterization Order Number: [id number] [facility] FinalReport [place], [place] Patient Name: Isaura Aguiar ID#:[id number] :1940 Procedure Date: October 09, 2023 Case #: [id number] Room: 6 Case Physician: Taqueria Garcia M.D. Start: 13:47 Fellow: Stuart Yousif M.D. Admission:10/06/2023 Referring Physician: Jakob Matthew M.D. Procedures: * Coronary Angiography * Left Heart Catheterization * Access Site Angiography * Peripheral Intravascular Ultrasound * Vascular Ultrasound History Isaura Aguiar is an 82 year old woman. She has hypertension.The patient's smoking status is Former. She has hypercholesterolemiamanaged with lipid therapy. The patient is also status post an acute non-ST elevation myocardial infarction. Prior to the initiation of this procedure, the patient was designated as ASA Class III. The CSHAclinical frailty scale is 3: Managing Well. Diagnostic Tests: Electrocardiography: EKG was assessed by ECG. EKG was Normal. Medications Prior to Procedure: Aspirin and Statin. Indications for Diagnostic Cath: The priority of the diagnostic procedure was Urgent. The indicationfor the senior label specialist visit is ACS greater than 24 hrs. Chest pain symptom assessment was: Atypical Angina. Technique: A 6 SLFr sheath was inserted in the right radial artery utilizingthe Seldinger technique. A 6Fr sheath was inserted in the right femoral artery utilizing the Seldinger technique. The left coronary arterywas injected utilizing a 6Fr JL 4 catheter. A 6Fr JR 4 catheter was usedto inject the right coronary artery. Left ventricular pressure wasperformed utilizing a 6Fr JR 4 catheter. A total of 150cc of Omnipaque wereopened, 116cc of Omnipaque were administered and 34cc of Omnipaque werewasted. Radiation: Fluoro time was 21.0 minutes, dose area product was 46.80 Gy/cm2 and air kerma was 679 mGY. See the case log for additional details. Hemodynamics: Left Heart Pressures Resting: Syst Diast EDP a v m Ao 209 77 130 LV 209 25 Coronary Angiography: Dominance: Right Left Main There was mild diffuse (<=25% stenosis) disease of the entirevessel segment of the left main artery. Left Anterior Descending There was mild diffuse (<=25% stenosis) disease of the entirevessel segment of the left anterior descending artery (LAD). Left Circumflex There was mild diffuse (<=25% stenosis) disease of the entirevessel segment of the left circumflex artery (LCX). Right Coronary Artery There was mild diffuse (<=25% stenosis) disease of the entirevessel segment of the right coronary artery (RCA). 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 Ramus There was mild diffuse (<=25% stenosis) disease of the entirevessel segment of the ramus. Vascular Access: Vascular Access Angiogram: A selective angiogram at the right femoral artery revealed mild diffuse disease. Vascular Ultrasound: Ultrasound of the right femoral artery was used to guide accessand showed vessel patent with mild disease. Vascular Access Management: Mechanical Compression of the right radial artery access sitewas performed. A 6 Fr Perclose was deployed at the right femoral artery access site. This device was successful. Conclusions: * Nonobstructive coronary artery disease * Elevated left ventricular end diastolic pressure Complications/Events: The patient had no complications during these procedures. Post Procedure Fluid Recommendations: IV fluid at 234 mL/hr for 4 hours for a total of 936 mL. These recommendations are made at the time of the procedure. Patient and provider preferences or a changing clinical situation may require modification of this regimen. Recommendations: Based upon the results of this procedure, it was recommended thatthe patient be managed with medical therapy. Comments: 1. Procedure through the right radial was aborted due to severe subclavian tortuosity and radial spasm 2. 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 There is only mild diffuse CAD 3. The LM/LAD and LCX has mild diffuse CAD 4. LVEDP of 20mmHg 5. Severe, uncontrolled HTN with SBP > 200mmHg. The attending physician was present for the entire procedure. Dr. Taqueria Garcia M.D. was present during the moderate sedation intraservice time as documented by the sedation nurse. Case time =00:58. Dr. Taqueria Garcia M.D. performed the coronary angiography, left heart catheterization, access site angiography, peripheral intravascular ultrasound and vascular ultrasound. Taqueria Garcia M.D. Electronically Signed by: Taqueria Garcia M.D. Report Finalized: 10/18/2023 15:50 Report Last Ammended: 2023 08:32 Taqueria Garcia MD CARDIAC CATH ORDERAB LES * Scan, Peripheral Blood (10/09/2023 6:11 AM EDT) Plat Estimate Normal [facility] RBC Morphology Abnormal [facility] Microcytes 1-5 /HPF [facility] Hypochromia Slight [facility] Polychromasia Present >5/HPF [facility] Ovalocytes 1-5 /HPF [facility] Blood 10/09/2023 6:11 AM EDT 10/09/2023 6:28 AM EDT Narrative Resulting Agency Comment Spec In Lab Margarita Ware MD HEMATOLOGY ORDERABLE S [facility] [place] [place] [address] * Differential, Automated (10/09/2023 6:11 AM EDT) Neutrophils % 58.9 % [facility] Neutr Abs (ANC) 2.83 1.70 - 6.10 x10(3)/[facility] LABORATORY Lymphocytes % 26.2 % [facility] Lymphocytes Abs 1.3 0.9 - 3.2 x10(3)/[facility] LABORATORY Monocytes % 10.4 % [facility] Monocyte Abs 0.5 0.3 - 0.9 x10(3)/[facility] LABORATORY Eosinophils % 3.7 % [facility] Eosinophils Abs 0.2 0.0 - 0.4 x10(3)/[facility] LABORATORY Basophils % 0.4 % [facility] Basophils Abs 0.0 0.0 - 0.1 x10(3)/[facility] LABORATORY Immature Gran % 0.40 % [facility] Comment: Immature granulocytes(IG's)percentage and absolute count will include metamyelocytes, myelocytes, and promyelocytes. Blood smears from CBCs yielding IG's will be scanned manually for concordance. If this scan disagrees with the automated IG or if promyelocytes are noted, a manual differential will be performed. Shoshana Gran Abs 0.02 0.00 - 0.04 x10(3)/[facility] LABORATORY Blood 10/09/2023 6:11 AM EDT 10/09/2023 6:28 AM EDT Narrative Resulting Agency Comment Spec In Lab Margarita Ware MD HEMATOLOGY ORDERABLE S Performing Organization Address City/State/[facility] Co de Phone Number [facility] [place] [address] * (ABNORMAL) Hemogram (10/09/2023 6:11 AM EDT) WBC 4.8 4.0 - 9.5 x10(3)/[facility] LABORATORY RBC 3.92(L) 4.00 - 5.21 x10(6)/[facility] LABORATORY Hemoglobin 9.7(L) 11.7 - 15.5 g/dL [facility] Hematocrit 32.4(L) 35.7 - 45.8 % [facility] MCV 82.7 82.6 - 94.4 fL [facility] MCH 24.7(L) 27.1 - 32.0 pg [facility] MCHC 29.9(L) 31.7 - 35.0 g/dL [facility] Platelets 219 145 - 357 x10(3)/[facility] LABORATORY RDWSD 57.8(H) 37.0 - 46.0 fL [facility] RDWCV 19.9(H) 11.5 - 14.1 % [facility] MPV 11.0 7.6 - 12.9 fL [facility] nRBC % Auto 0.0 % [facility] nRBC Abs Auto 0.000 0.000 - 0.000 x10(3)/[facility] LABORATORY Blood 10/09/2023 6:11 AM EDT 10/09/2023 6:28 AM EDT Narrative Resulting Agency Comment Spec In Lab Margarita Ware MD HEMATOLOGY ORDERABLE S Performing Organization Address [facility]/ZIP Co de Phone Number [facility] [place] [address] * Magnesium (10/09/2023 6:11 AM EDT) Pathologist [facility] Magnesium 0.90 0.69 - 1.07 mmol/L [facility] Blood 10/09/2023 6:11 AM EDT 10/09/2023 6:28 AM EDT Narrative Resulting Agency Comment Spec In Lab Rusty Ohara MD CHEMISTRY ORDERABL ES Performing Organization Address [facility]/ZIP Co de Phone Number [facility] [place] [address] * (ABNORMAL) Basic Metabolic Panel (non-fasting) (10/09/2023 6:11 AM EDT) Glucose Lvl 110 65 - 199 mg/dL [facility] Comment:Diabetes: >=200 mg/d L plus symptoms BUN 13 8 - 18 mg/dL [facility] Creatinine 1.17 0.70 - 1.20 mg/dL [facility] Sodium 139 135 - 145 mmol/L [facility] Potassium 4.0 3.5 - 5.0 mmol/L [facility] Comment: Please note: ??Patients with WBC >100,000 may have falsely elevated Potassium levels. ??For accurate Potassium quantification in these patients send serum separator tube (gold top) for subsequent determinations. ??Contact the Clinical Chemistry Laboratory if there are any questions. Chloride 106 98 - 107 mmol/L [facility] CO2 25 22 - 31 mmol/L [facility] Anion Gap 8 5 - 15 mmol/L [facility] Calcium 9.4 8.5 - 10.5 mg/dL [facility] Estimated GFR 47(L) >=60 mL/min/1. 73 m?? [facility] Comment: This patient's estimated GFR [...] and symptoms in addition to eGFR. Blood 10/09/2023 6:11 AM EDT 10/09/2023 6:28 AM EDT Narrative Resulting Agency Comment Spec In Lab Rusty Ohara MD CHEMISTRY ORDERABL ES [facility] [place] [address] * Heparin (unfractionated) Level (10/09/2023 6:11 AM EDT) Heparin UFH Level 0.30 IU/mL [facility] Comment: Heparin (anti-Xa) levels should be determined in a plasma sample that has been drawn 6 hours after a dose change to approximate steady-state for continuous heparin infusions. Indication specific Heparin (anti-Xa) levels based on order set selection: Acute DVT or PE treatment: 0.3 ? 0.7 IU/mL Thrombosis Prevention (eg. atrial fibrillation, hayley-procedural bridging, mechanical valves): 0.3 ? 0.7 IU/mL Acute Coronary Syndrome: 0.3 ? 0.7 IU/mL Stroke Indications: 0.3 ? 0.5 IU/mL Ultra-low intensity (select indications in cardiac surgery): 0.1 ? 0.3 IU/mL Blood 10/09/2023 6:11 AM EDT 10/09/2023 6:28 AM EDT Narrative Resulting Agency Comment Spec In Lab Rusty Ohara MD HEMATOLOGY ORDERAB LES [facility] [place] [address] * (ABNORMAL) Troponin (10/09/2023 6:11 AM EDT) Troponin-T HS 1,655(H) <=14 ng/L [facility] Comment: This patient's troponin T concentration was determined using the Kierra 5th Generation troponin T assay. The 99th percentile for Troponin T for this test is 14 ng/L for females, and 22 ng/L for males. According to the fourth universal definition of myocardial infarction, the term acute myocardial infarction should be used when there is acute myocardial injury with clinical evidence of acute myocardial ischemia and with detection of a rise and/or fall of cardiac troponin values with at least one value above the 99th percentile and at least one of the following: - Symptoms of myocardial ischemia; - New ischemic ECG changes; - Development of pathological Q waves; - Imaging evidence of new loss of viable myocardium or new regional wall motion abnormality in a pattern consistent with an ischemic etiology; - Identification of a coronary thrombus by angiography or autopsy (not for type 2 or 3 MIs) Serial measurement of troponin and the change in troponin concentration over time (delta) is crucial for the diagnosis of acute myocardial infarction. Guidance on the interpretation of the new 5th Generation Troponin T values and the delta troponin value can be found in the [facility] Laboratory Test Catalog Troponin - [facility] Laboratory Test Catalog Reference: Fourth [place] Definition of Myocardial Infarction. Journal of the [place] [employer] 2018;72:8508-1403 Blood 10/09/2023 6:11 AM EDT 10/09/2023 6:28 AM EDT Narrative Resulting Agency Comment Spec In Lab Rusty Ohara MD CHEMISTRY ORDERABL ES Performing Organization Address [facility] de Phone Number [facility] [place] [address] * Heparin (unfractionated) Level (10/08/2023 5:55 PM EDT) Heparin UFH Level 0.39 IU/mL [facility] Comment: Heparin (anti-Xa) levels should be determined in a plasma sample that has been drawn 6 hours after a dose change to approximate steady-state for continuous heparin infusions. Indication specific Heparin (anti-Xa) levels based on order set selection: Acute DVT or PE treatment: 0.3 ? 0.7 IU/mL Thrombosis Prevention (eg. atrial fibrillation, hayley-procedural bridging, mechanical valves): 0.3 ? 0.7 IU/mL Acute Coronary Syndrome: 0.3 ? 0.7 IU/mL Stroke Indications: 0.3 ? 0.5 IU/mL Ultra-low intensity (select indications in cardiac surgery): 0.1 ? 0.3 IU/mL Blood 10/08/2023 5:55 PM EDT 10/08/2023 6:01 PM EDT Narrative Resulting Agency Comment Spec In Lab Rusty Ohara MD HEMATOLOGY ORDERAB LES Performing Organization Address [facility] Co de Phone Number [facility] [place] [address] * (ABNORMAL) Troponin (10/08/2023 5:55 PM EDT) Troponin-T HS 1,635(H) <=14 ng/L [facility] Comment: This patient's troponin T concentration was determined using the Kierra 5th Generation troponin T assay. The 99th percentile for Troponin T for this test is 14 ng/L for females, and 22 ng/L for males. According to the fourth universal definition of myocardial infarction, the term acute myocardial infarction should be used when there is acute myocardial injury with clinical evidence of acute myocardial ischemia and with detection of a rise and/or fall of cardiac troponin values with at least one value above the 99th percentile and at least one of the following: - Symptoms of myocardial ischemia; - New ischemic ECG changes; - Development of pathological Q waves; - Imaging evidence of new loss of viable myocardium or new regional wall motion abnormality in a pattern consistent with an ischemic etiology; - Identification of a coronary thrombus by angiography or autopsy (not for type 2 or 3 MIs) Serial measurement of troponin and the change in troponin concentration over time (delta) is crucial for the diagnosis of acute myocardial infarction. Guidance on the interpretation of the new 5th Generation Troponin T values and the delta troponin value can be found in the [facility] Test Catalog Troponin - [facility] [facility], [facility] Test Catalog Reference: Fourth [place] Definition of Myocardial Infarction. Journal of the [place] [employer] 2018;72:7867-3526 Blood 10/08/2023 5:55 PM EDT 10/08/2023 6:01 PM EDT Narrative Resulting Agency Comment Spec In Lab Rusty Ohara MD CHEMISTRY ORDERABL ES [facility] [place] [address] * Heparin (unfractionated) Level (10/08/2023 11:20 AM EDT) Heparin UFH Level 0.39 IU/mL [facility] Comment: Heparin (anti-Xa) levels should be determined in a plasma sample that has been drawn 6 hours after a dose change to approximate steady-state for continuous heparin infusions. Indication specific Heparin (anti-Xa) levels based on order set selection: Acute DVT or PE treatment: 0.3 ? 0.7 IU/mL Thrombosis Prevention (eg. atrial fibrillation, hayley-procedural bridging, mechanical valves): 0.3 ? 0.7 IU/mL Acute Coronary Syndrome: 0.3 ? 0.7 IU/mL Stroke Indications: 0.3 ? 0.5 IU/mL Ultra-low intensity (select indications in cardiac surgery): 0.1 ? 0.3 IU/mL Blood 10/08/2023 11:2 0 AM EDT 10/08/2023 11:28 AM EDT Narrative Resulting Agency Comment Spec In Lab Rusty Ohara MD HEMATOLOGY ORDERAB LES Performing Organization Address [facility]/ZIP Co de Phone Number [facility] [place] [address] * (ABNORMAL) Troponin (10/08/2023 11:20 AM EDT) Troponin-T HS 1,632(H) <=14 ng/L [facility] Comment: This patient's troponin T concentration was determined using the Kierra 5th Generation troponin T assay. The 99th percentile for Troponin T for this test is 14 ng/L for females, and 22 ng/L for males. According to the fourth universal definition of myocardial infarction, the term acute myocardial infarction should be used when there is acute myocardial injury with clinical evidence of acute myocardial ischemia and with detection of a rise and/or fall of cardiac troponin values with at least one value above the 99th percentile and at least one of the following: - Symptoms of myocardial ischemia; - New ischemic ECG changes; - Development of pathological Q waves; - Imaging evidence of new loss of viable myocardium or new regional wall motion abnormality in a pattern consistent with an ischemic etiology; - Identification of a coronary thrombus by angiography or autopsy (not for type 2 or 3 MIs) Serial measurement of troponin and the change in troponin concentration over time (delta) is crucial for the diagnosis of acute myocardial infarction. Guidance on the interpretation of the new 5th Generation Troponin T values and the delta troponin value can be found in the [facility] Test Catalog Troponin - [facility] Test Catalog Reference: Fourth [place] Definition of Myocardial Infarction. Journal of the [place] [employer] 2018;72:[id number] Blood 10/08/2023 11:2 0 AM EDT 10/08/2023 11:28 AM EDT Narrative Resulting Agency Comment Spec In Lab Rusty Ohara MD CHEMISTRY ORDERABL ES Performing Organization Address [facility]/ZIP Co de Phone Number [facility] [place] [address] * Differential, Automated (10/08/2023 4:22 AM EDT) Neutrophils % 59.7 % [facility] Neutr Abs (ANC) 3.31 1.70 - 6.10 x10(3)/[facility] LABORATORY Lymphocytes % 26.8 % [facility] Lymphocytes Abs 1.5 0.9 - 3.2 x10(3)/[facility] LABORATORY Monocytes % 9.6 % [facility] Monocyte Abs 0.5 0.3 - 0.9 x10(3)/[facility] LABORATORY Eosinophils % 3.1 % [facility] Eosinophils Abs 0.2 0.0 - 0.4 x10(3)/[facility] LABORATORY Basophils % 0.4 % [facility] Basophils Abs 0.0 0.0 - 0.1 x10(3)/[facility] LABORATORY Immature Gran % 0.40 % [facility] Comment: Immature granulocytes(IG's)percentage and absolute count will include metamyelocytes, myelocytes, and promyelocytes. Blood smears from CBCs yielding IG's will be scanned manually for concordance. If this scan disagrees with the automated IG or if promyelocytes are noted, a manual differential will be performed. Shoshana Gran Abs 0.02 0.00 - 0.04 x10(3)/[facility] LABORATORY Blood 10/08/2023 4:22 AM EDT 10/08/2023 4:37 AM EDT Narrative Resulting Agency Comment Spec In Lab Margarita Ware MD HEMATOLOGY ORDERABLE S [facility] [place] [address] * (ABNORMAL) Hemogram (10/08/2023 4:22 AM EDT) WBC 5.5 4.0 - 9.5 x10(3)/[facility] LABORATORY RBC 4.00 4.00 - 5.21 x10(6)/[facility] LAB[facility]ATORY Hemoglobin 9.9(L) 11.7 - 15.5 g/dL [facility] Hematocrit 32.7(L) 35.7 - 45.8 % [facility] MCV 81.8(L) 82.6 - 94.4 fL [facility] MCH 24.8(L) 27.1 - 32.0 pg [facility] MCHC 30.3(L) 31.7 - 35.0 g/dL [facility] Platelets 210 145 - 357 x10(3)/[facility] RDWSD 56.4(H) 37.0 - 46.0 fL [facility] RDWCV 19.9(H) 11.5 - 14.1 % [facility] MPV 10.6 7.6 - 12.9 fL [facility] nRBC % Auto 0.0 % [facility] nRBC Abs Auto 0.000 0.000 - 0.000 x10(3)/[facility] LAB[facility]ATORY Blood 10/08/2023 4:22 AM EDT 10/08/2023 4:37 AM EDT Narrative Resulting Agency Comment Spec In Lab Margarita Ware MD HEMATOLOGY ORDERABLE S [facility] [place] [address] * Heparin (unfractionated) Level (10/08/2023 4:22 AM EDT) Heparin UFH Level 0.25 IU/mL [facility] Comment: Heparin (anti-Xa) levels should be determined in a plasma sample that has been drawn 6 hours after a dose change to approximate steady-state for continuous heparin infusions. Indication specific Heparin (anti-Xa) levels based on order set selection: Acute DVT or PE treatment: 0.3 ? 0.7 IU/mL Thrombosis Prevention (eg. atrial fibrillation, hayley-procedural bridging, mechanical valves): 0.3 ? 0.7 IU/mL Acute Coronary Syndrome: 0.3 ? 0.7 IU/mL Stroke Indications: 0.3 ? 0.5 IU/mL Ultra-low intensity (select indications in cardiac surgery): 0.1 ? 0.3 IU/mL Blood 10/08/2023 4:22 AM EDT 10/08/2023 4:37 AM EDT Narrative Resulting Agency Comment Spec In Lab Rusty Ohara MD HEMATOLOGY ORDERAB LES Performing Organization Address [facility] Co de Phone Number [facility] [place] [address] * Magnesium (10/08/2023 4:22 AM EDT) Magnesium 0.92 0.69 - 1.07 mmol/L [facility] Blood 10/08/2023 4:22 AM EDT 10/08/2023 4:37 AM EDT Narrative Resulting Agency Comment Spec In Lab Rusty Ohara MD CHEMISTRY ORDERABL ES Performing Organization Address [facility] de Phone Number [facility] [place] [address] * (ABNORMAL) Basic Metabolic Panel (non-fasting) (10/08/2023 4:22 AM EDT) Glucose Lvl 110 65 - 199 mg/dL [facility] Comment:Diabetes: >=200 mg/d L plus symptoms BUN 14 8 - 18 mg/dL [facility] Creatinine 1.22(H) 0.70 - 1.20 mg/dL [facility] Sodium 142 135 - 145 mmol/L [facility] Potassium 4.4 3.5 - 5.0 mmol/L [facility] Comment: Please note: ??Patients with WBC >100,000 may have falsely elevated Potassium levels. ??For accurate Potassium quantification in these patients send serum separator tube (gold top) for subsequent determinations. ??Contact the Clinical Chemistry Laboratory if there are any questions. Chloride 109(H) 98 - 107 mmol/L [facility] CO2 24 22 - 31 mmol/L [facility] Anion Gap 9 5 - 15 mmol/L [facility] Calcium 9.3 8.5 - 10.5 mg/dL [facility] Estimated GFR 45(L) >=60 mL/min/1. 73 m?? [facility] Comment: This patient's estimated GFR [...] and symptoms in addition to eGFR. Blood 10/08/2023 4:22 AM EDT 10/08/2023 4:37 AM EDT Narrative Resulting Agency Comment Spec In Lab Rusty Ohara MD CHEMISTRY ORDERABL ES [facility] [place] [address] * (ABNORMAL) Troponin (10/08/2023 4:22 AM EDT) Troponin-T HS 1,705(H) <=14 ng/L [facility] Comment: This patient's troponin T concentration was determined using the Kierra 5th Generation troponin T assay. The 99th percentile for Troponin T for this test is 14 ng/L for females, and 22 ng/L for males. According to the fourth universal definition of myocardial infarction, the term acute myocardial infarction should be used when there is acute myocardial injury with clinical evidence of acute myocardial ischemia and with detection of a rise and/or fall of cardiac troponin values with at least one value above the 99th percentile and at least one of the following: - Symptoms of myocardial ischemia; - New ischemic ECG changes; - Development of pathological Q waves; - Imaging evidence of new loss of viable myocardium or new regional wall motion abnormality in a pattern consistent with an ischemic etiology; - Identification of a coronary thrombus by angiography or autopsy (not for type 2 or 3 MIs) Serial measurement of troponin and the change in troponin concentration over time (delta) is crucial for the diagnosis of acute myocardial infarction. Guidance on the interpretation of the new 5th Generation Troponin T values and the delta troponin value can be found in the [facility] Test Catalog Troponin - [facility] Test Catalog Reference: Fourth [place] Definition of Myocardial Infarction. Journal of the [place] [employer] 2018;72:[id number] Blood 10/08/2023 4:22 AM EDT 10/08/2023 4:37 AM EDT Narrative Resulting Agency Comment Spec In Lab Rusty Ohara MD CHEMISTRY ORDERABL ES Performing Organization Address [facility] Co de Phone Number [facility] [place] [address] * Heparin (unfractionated) Level (10/07/2023 9:51 PM EDT) Heparin UFH Level 0.39 IU/mL [facility] Comment: Heparin (anti-Xa) levels should be determined in a plasma sample that has been drawn 6 hours after a dose change to approximate steady-state for continuous heparin infusions. Indication specific Heparin (anti-Xa) levels based on order set selection: Acute DVT or PE treatment: 0.3 ? 0.7 IU/mL Thrombosis Prevention (eg. atrial fibrillation, hayley-procedural bridging, mechanical valves): 0.3 ? 0.7 IU/mL Acute Coronary Syndrome: 0.3 ? 0.7 IU/mL Stroke Indications: 0.3 ? 0.5 IU/mL Ultra-low intensity (select indications in cardiac surgery): 0.1 ? 0.3 IU/mL Blood 10/07/2023 9:51 PM EDT 10/07/2023 9:54 PM EDT Narrative Resulting Agency Comment Spec In Lab Rusty Ohara MD HEMATOLOGY ORDERAB LES [facility] [place] [address] * (ABNORMAL) Troponin (10/07/2023 5:52 PM EDT) Troponin-T HS 1,910(H) <=14 ng/L [facility] Comment: This patient's troponin T concentration was determined using the Kierra 5th Generation troponin T assay. The 99th percentile for Troponin T for this test is 14 ng/L for females, and 22 ng/L for males. According to the fourth universal definition of myocardial infarction, the term acute myocardial infarction should be used when there is acute myocardial injury with clinical evidence of acute myocardial ischemia and with detection of a rise and/or fall of cardiac troponin values with at least one value above the 99th percentile and at least one of the following: - Symptoms of myocardial ischemia; - New ischemic ECG changes; - Development of pathological Q waves; - Imaging evidence of new loss of viable myocardium or new regional wall motion abnormality in a pattern consistent with an ischemic etiology; - Identification of a coronary thrombus by angiography or autopsy (not for type 2 or 3 MIs) Serial measurement of troponin and the change in troponin concentration over time (delta) is crucial for the diagnosis of acute myocardial infarction. Guidance on the interpretation of the new 5th Generation Troponin T values and the delta troponin value can be found in the [facility] Test Catalog Troponin - [facility] Test Catalog Reference: Fourth [place] Definition of Myocardial Infarction. Journal of the [place] [employer] 2018;72:[id number] Blood 10/07/2023 5:52 PM EDT 10/07/2023 5:57 PM EDT Narrative Resulting Agency Comment Spec In Lab Rusty Ohara MD CHEMISTRY ORDERABL ES [facility] [place] [address] * Heparin (unfractionated) Level (10/07/2023 3:45 PM EDT) Heparin UFH Level 0.54 IU/mL [facility] Comment: Heparin (anti-Xa) levels should be determined in a plasma sample that has been drawn 6 hours after a dose change to approximate steady-state for continuous heparin infusions. Indication specific Heparin (anti-Xa) levels based on order set selection: Acute DVT or PE treatment: 0.3 ? 0.7 IU/mL Thrombosis Prevention (eg. atrial fibrillation, hayley-procedural bridging, mechanical valves): 0.3 ? 0.7 IU/mL Acute Coronary Syndrome: 0.3 ? 0.7 IU/mL Stroke Indications: 0.3 ? 0.5 IU/mL Ultra-low intensity (select indications in cardiac surgery): 0.1 ? 0.3 IU/mL Blood 10/07/2023 3:45 PM EDT 10/07/2023 3:50 PM EDT Narrative Resulting Agency Comment Spec In Lab Rusty Ohara MD HEMATOLOGY ORDERAB LES Performing Organization Address [facility] de Phone Number [facility] [place] [address] * EKG 12 Lead (10/07/2023 1:44 PM EDT) Ventricular rate 51 BPM MUSE SYSTEM Atrial Rate 51 BPM MUSE SYSTEM P-R Interval 158 ms MUSE SYSTEM QRS Duration 84 ms MUSE SYSTEM Q-T Interval 452 ms MUSE SYSTEM QTC Calculated (Bezet) 416 ms MUSE SYSTEM Calculated P [place] 73 degrees MUSE SYSTEM Calculated R [place] 2 degrees MUSE SYSTEM Calculated T [place] 60 degrees MUSE SYSTEM INTERPRETATION Sinus bradycardia Otherwise normal ECG When compared with ECG of 07-OCT-2023 01:41, No significant change was found Confirmed by MD Sevilla Katharine ([id number]) on 10/09/2023 6:32:35 AM MUSE SYSTEM 10/07/2023 1:44 PM EDT 10/09/2023 6:32 AM EDT Rusty Ohara MD ECG ORDERABLES Performing Organization Address [facility] Co de Phone Number MUSE SYSTEM * (ABNORMAL) Troponin (10/07/2023 10:48 AM EDT) Troponin-T HS 2,940(H) <=14 ng/L [facility] Comment: This patient's troponin T concentration was determined using the Kierra 5th Generation troponin T assay. The 99th percentile for Troponin T for this test is 14 ng/L for females, and 22 ng/L for males. According to the fourth universal definition of myocardial infarction, the term acute myocardial infarction should be used when there is acute myocardial injury with clinical evidence of acute myocardial ischemia and with detection of a rise and/or fall of cardiac troponin values with at least one value above the 99th percentile and at least one of the following: - Symptoms of myocardial ischemia; - New ischemic ECG changes; - Development of pathological Q waves; - Imaging evidence of new loss of viable myocardium or new regional wall motion abnormality in a pattern consistent with an ischemic etiology; - Identification of a coronary thrombus by angiography or autopsy (not for type 2 or 3 MIs) Serial measurement of troponin and the change in troponin concentration over time (delta) is crucial for the diagnosis of acute myocardial infarction. Guidance on the interpretation of the new 5th Generation Troponin T values and the delta troponin value can be found in the [facility] Test Catalog Troponin - [facility] Test Catalog Reference: Fourth [place] Definition of Myocardial Infarction. Journal of the [place] [employer] 2018;72:[id number] Blood 10/07/2023 10:4 8 AM EDT 10/07/2023 11:04 AM EDT Narrative Resulting Agency Comment Spec In Lab Rusty Ohara MD CHEMISTRY ORDERABL ES [facility] [place] [address] * Heparin (unfractionated) Level (10/07/2023 7:52 AM EDT) Heparin UFH Level 0.83 IU/mL [facility] Comment: Heparin (anti-Xa) levels should be determined in a plasma sample that has been drawn 6 hours after a dose change to approximate steady-state for continuous heparin infusions. Indication specific Heparin (anti-Xa) levels based on order set selection: Acute DVT or PE treatment: 0.3 ? 0.7 IU/mL Thrombosis Prevention (eg. atrial fibrillation, hayley-procedural bridging, mechanical valves): 0.3 ? 0.7 IU/mL Acute Coronary Syndrome: 0.3 ? 0.7 IU/mL Stroke Indications: 0.3 ? 0.5 IU/mL Ultra-low intensity (select indications in cardiac surgery): 0.1 ? 0.3 IU/mL Blood 10/07/2023 7:52 AM EDT 10/07/2023 8:17 AM EDT Narrative Resulting Agency Comment Spec In Lab Rusty Ohara MD HEMATOLOGY ORDERAB LES [facility] [place] [address] * (ABNORMAL) Troponin (10/07/2023 3:28 AM EDT) Troponin-T HS 4,360(H) <=14 ng/L [facility] Comment: This patient's troponin T concentration was determined using the Kierra 5th Generation troponin T assay. The 99th percentile for Troponin T for this test is 14 ng/L for females, and 22 ng/L for males. According to the fourth universal definition of myocardial infarction, the term acute myocardial infarction should be used when there is acute myocardial injury with clinical evidence of acute myocardial ischemia and with detection of a rise and/or fall of cardiac troponin values with at least one value above the 99th percentile and at least one of the following: - Symptoms of myocardial ischemia; - New ischemic ECG changes; - Development of pathological Q waves; - Imaging evidence of new loss of viable myocardium or new regional wall motion abnormality in a pattern consistent with an ischemic etiology; - Identification of a coronary thrombus by angiography or autopsy (not for type 2 or 3 MIs) Serial measurement of troponin and the change in troponin concentration over time (delta) is crucial for the diagnosis of acute myocardial infarction. Guidance on the interpretation of the new 5th Generation Troponin T values and the delta troponin value can be found in the [facility] Test Catalog Troponin - [facility] Test Catalog Reference: Fourth [place] Definition of Myocardial Infarction. Journal of the [place] [employer] 2018;72:[id number] Blood 10/07/2023 3:28 AM EDT 10/07/2023 3:37 AM EDT Narrative Resulting Agency Comment Spec In Lab Rusty Ohara MD CHEMISTRY ORDERABL ES Performing Organization Address [facility] de Phone Number [facility] [place] [address] * EKG 12 Lead (10/07/2023 1:41 AM EDT) Ventricular rate 54 BPM MUSE SYSTEM Atrial Rate 54 BPM MUSE SYSTEM P-R Interval 182 ms MUSE SYSTEM QRS Duration 92 ms MUSE SYSTEM Q-T Interval 456 ms MUSE SYSTEM QTC Calculated (Bezet) 432 ms MUSE SYSTEM Calculated P [place] 66 degrees MUSE SYSTEM Calculated R [place] 14 degrees MUSE SYSTEM Calculated T [place] 50 degrees MUSE SYSTEM INTERPRETATION Sinus bradycardia Minimal voltage criteria for LVH, may be normal variant ( Bartolo product ) Borderline ECG When compared with ECG of 26-MAY-2006 11:49, No significant change was found Confirmed by MD Sevilla Katharine ([id number]) on 10/09/2023 6:32:29 AM MUSE SYSTEM 10/07/2023 1:41 AM EDT 10/09/2023 6:32 AM EDT Rusty Ohara MD ECG ORDERABLES Performing Organization Address [facility] Phone Number MUSE SYSTEM * (ABNORMAL) D-Dimer, Quantitative (10/07/2023 12:33 AM EDT) D-Dimer, Quant 606(H) 0 - 500 FEU ng/ml [facility] Comment: The D-Dimer assay is used to aid in the diagnosis of deep vein thrombosis and pulmonary embolism. A normal D-Dimer result (less than 500 FEU ng/ml) has a negative predictive value of approximately 95% for the exclusion of acute PE and DVT when there is low to moderate pretest probability. Blood Venous Draw / Unknown 10/07/2023 12:33 AM EDT 10/07/2023 12:40 AM EDT Narrative Resulting Agency Comment Spec In Lab Margarita Ware MD HEMATOLOGY ORDERABLE S Performing Organization Address [facility] Co de Phone Number [facility] [place] [address] * (ABNORMAL) CRP, acute inflammation (10/07/2023 12:33 AM EDT) Pathologist [facility] CRP 5.6(H) <=4.9 mg/L [facility] Blood Venous Draw / Unknown 10/07/2023 12:33 AM EDT 10/07/2023 12:42 AM EDT Narrative Resulting Agency Comment Spec In Lab Ariel Ware MD [place] [address] * Differential, Automated (10/07/2023 12:33 AM EDT) [facility] Neutrophils % 59.6 % [facility] Neutr Abs (ANC) 4.14 1.70 - 6.10 x10(3)/[facility] LABORATORY Lymphocytes % 30.0 % [facility] Lymphocytes Abs 2.1 0.9 - 3.2 x10(3)/[facility]ATORY Monocytes % 8.5 % [facility] Monocyte Abs 0.6 0.3 - 0.9 x10(3)/[facility] LABORATORY Eosinophils % 1.2 % [facility] Eosinophils Abs 0.1 0.0 - 0.4 x10(3)/[facility] LABORATORY Basophils % 0.3 % [facility] Basophils Abs 0.0 0.0 - 0.1 x10(3)/[facility] LABORATORY Immature Gran % 0.40 % [facility] Comment: Immature granulocytes(IG's)percentage and absolute count will include metamyelocytes, myelocytes, and promyelocytes. Blood smears from CBCs yielding IG's will be scanned manually for concordance. If this scan disagrees with the automated IG or if promyelocytes are noted, a manual differential will be performed. Shoshana Gran Abs 0.03 0.00 - 0.04 x10(3)/[facility] LAB[facility]ATORY Blood 10/07/2023 12:3 3 AM EDT 10/07/2023 12:40 AM EDT Narrative Resulting Agency Comment Spec In Lab Margarita Ware MD HEMATOLOGY ORDERABLE S [facility] [place] [address] * (ABNORMAL) Hemogram (10/07/2023 12:33 AM EDT) WBC 6.9 4.0 - 9.5 x10(3)/[facility] LAB[facility]ATORY RBC 3.93(L) 4.00 - 5.21 x10(6)/[facility]ORY Hemoglobin 9.6(L) 11.7 - 15.5 g/dL [facility] Hematocrit 31.7(L) 35.7 - 45.8 % [facility] MCV 80.7(L) 82.6 - 94.4 fL [facility] MCH 24.4(L) 27.1 - 32.0 pg [facility] MCHC 30.3(L) 31.7 - 35.0 g/dL [facility] Platelets 239 145 - 357 x10(3)/[facility] LABORATORY RDWSD 53.0(H) 37.0 - 46.0 [facility] LAB[facility]ORY RDWCV 19.0(H) 11.5 - 14.1 % [facility] [facility] MPV 10.3 7.6 - 12.9 [facility] LABORATORY nRBC % Auto 0.0 % [facility] nRBC Abs Auto 0.000 0.000 - 0.000 x10(3)/[facility] LABORATORY Blood 10/07/2023 12:3 3 AM EDT 10/07/2023 12:40 AM EDT Narrative Resulting Agency Comment Spec In Lab Margarita Ware MD HEMATOLOGY ORDERABLE S [facility] [place] [address] * (ABNORMAL) Troponin (10/07/2023 12:33 AM EDT) Troponin-T HS 4,413(H) <=14 ng/L [facility] Comment: This patient's troponin T concentration was determined using the Kierra 5th Generation troponin T assay. The 99th percentile for Troponin T for this test is 14 ng/L for females, and 22 ng/L for males. According to the fourth universal definition of myocardial infarction, the term acute myocardial infarction should be used when there is acute myocardial injury with clinical evidence of acute myocardial ischemia and with detection of a rise and/or fall of cardiac troponin values with at least one value above the 99th percentile and at least one of the following: - Symptoms of myocardial ischemia; - New ischemic ECG changes; - Development of pathological Q waves; - Imaging evidence of new loss of viable myocardium or new regional wall motion abnormality in a pattern consistent with an ischemic etiology; - Identification of a coronary thrombus by angiography or autopsy (not for type 2 or 3 MIs) Serial measurement of troponin and the change in troponin concentration over time (delta) is crucial for the diagnosis of acute myocardial infarction. Guidance on the interpretation of the new 5th Generation Troponin T values and the delta troponin value can be found in the [facility] Laboratory Test Catalog Troponin - [facility] Laboratory Test Catalog Reference: Fourth [place] Definition of Myocardial Infarction. Journal of the [place] 2018;72:1814-6266 Blood 10/07/2023 12:3 3 AM EDT 10/07/2023 12:40 AM EDT Narrative Resulting Agency Comment Spec In Lab Rusty Ohara MD CHEMISTRY ORDERABL ES Performing Organization Address City/[facility]/ZIP Co de Phone Number [facility] [place] [address] * (ABNORMAL) Hemoglobin A1c (10/07/2023 12:33 AM EDT) Hemoglobin A1C 5.9(H) 4.3 - 5.6 % [facility] Comment: Reference Range: 4.3 - 5.6% 5.7 - 6.4% - Increased Risk of Developing Diabetes Mellitus >= 6.5% - Consistent with diagnosis of Diabetes Mellitus In the absence of hyperglycemia (i.e. plasma glucose > 200 mg/dL) or classic symptoms of hyperglycemia a repeat measurement of HbA1c should be performed on a separate sample to confirm the diagnosis. Diagnosis and Classification of Diabetes Mellitus, Diabetes Care 2013; 36: Suppl. 1, S67-74 Est Avg Gluc See note mg/dL [facility] Comment: Estimated Average Glucose not appropriate for patients over 70 years of age. Blood 10/07/2023 12:3 3 AM EDT 10/07/2023 12:40 AM EDT Narrative Resulting Agency Comment Spec In Lab Rusty Ohara MD CHEMISTRY ORDERABL ES Performing Organization Address City/State/[facility] Co de Phone Number [facility] [place] [phone] * Lipid Panel (Reflex Direct LDL) (10/07/2023 12:33 AM EDT) Chol, Total 128 mg/dL [facility] Comment: Desirable: ? <200 mg/dL Borderline High: 200-239 mg/dL Higher: ?>sa=410 mg/dL Triglycerides 80 mg/dL [facility] Comment: Normal: ?<150 mg/dL Borderline High: 150-199 mg/dL High: ?200-499 mg/dL Very High: ? >el=603 mg/dL HDL 57 mg/dL [facility] Comment: Females: High Risk: <50 mg/dL Males: High Risk: <40 mg/dL LDL Cholesterol 55 mg/dL [facility] Comment: Desirable: ? <100 mg/dL Above Desirable: 100-129 mg/dL Borderline High: 130-159 mg/dL High: ?160-189 mg/dL Very High: ? >uu=942 mg/dL Lipid Interpretation See Note [facility] Comment: It is important to review the results of your lipid panel with your health care provider. You can compare your lipid results to the ranges below and whether they are in the desirable range. These ranges are only meant to be used for people without known cardiac disease, history of stroke, or peripheral vascular disease (blockages in the leg arteries or diabetes). If ??you have one of these conditions, your desirable LDL-C (bad cholesterol) will likely be even lower. ACC/AHA Guidelines (most recently Allan et al. [facility] 03/15/22): For individuals with atherosclerotic cardiovascular disease (ASCVD)or LDL >jx=627 mg/dL, use a high-intensity statin (40-80 mg atorvastatin or 20-40 mg rosuvastatin with goal >or=50% LDL reduction) For individuals with diabetes, age 40-75 without ASCVD, moderate-intensity statin (goal 30-49% LDL reduction); consider high intensity statin for those with increased risk. For adults without diabetes or ASCVD, aged 40-75 with LDL 70-189 mg/dL, estimate 10 year ASCVD risk with smartphrase .ASCVDRISK or Dynamed Decisions. If 10 year risk is 7.5%-19.9% (intermediate risk), consider moderate intensity statin based on risk enhancers and patient preference. Consider coronary artery calcium test (CT) if there is concern regarding the benefit of a statin. If ten year risk is >or=20%, initiate high-intensity statin. Evaluate for secondary causes of triglycerides >500 mg/dL or LDL >190 mg/dL. Lifestyle modification is a critical component of ASCVD risk reduction. If not reaching LDL goals on maximally tolerated statin, consider ezetimibe and/or a PCSK9 inhibitor: Target for primary prevention: LDL<100 Target for those with ASCVD or diabetes and 10-year risk >or=20%: LDL<70 Target for those with very high risk ASCVD: LDL<55 (Very high risk being the presence of 2 or more of: recent acute coronary syndrome, past myocardial infarction, ischemic stroke, symptomatic peripheral artery disease) Blood 10/07/2023 12:3 3 AM EDT 10/07/2023 12:40 AM EDT Narrative Resulting Agency Comment Spec In Lab Rusty Ohara MD CHEMISTRY ORDERABL ES Performing Organization Address [facility] Co de Phone Number [facility] [place] [address] * APTT (10/07/2023 12:33 AM EDT) PTT 37 25 - 37 sec [facility] Comment: The PTT is NOT appropriate for heparin monitoring. Use the Anti-Xa level for heparin monitoring (HEP UFH) or LMWH monitoring (HEP LMW). A PTT less than 37 seconds generally indicates adequate hemostasis. Blood 10/07/2023 12:3 3 AM EDT 10/07/2023 12:40 AM EDT Narrative Resulting Agency Comment Spec In Lab Rusty Ohara MD HEMATOLOGY ORDERAB LES Performing Organization Address [facility] Co de Phone Number [facility] [place] [address] * (ABNORMAL) Prothrombin Time (10/07/2023 12:33 AM EDT) PT 14.7(H) 9.4 - 12.5 sec [facility] INR 1.[address] [facility] Comment: An INR <2.0 indicates adequate procoagulant activity for hemostasis in most patients without underlying bleeding disorders, though the INR may not adequately reflect hemostatic capacity in patients with liver disease and synthetic impairment. The recommended target INR range for therapeutic anticoagulation is 2.0 ? 3.0 for most applications, though lower and higher ranges may be appropriate depending on clinical circumstances. Blood 10/07/2023 12:3 3 AM EDT 10/07/2023 12:40 AM EDT Narrative Resulting Agency Comment Spec In Lab Rusty Ohara MD HEMATOLOGY ORDERAB LES Performing Organization Address City/[facility]/ZIP Co de Phone Number [facility] [place] [address] * TSH (10/07/2023 12:33 AM EDT) TSH 1.30 0.27 - 4.20 mcIU/mL [facility] Comment: Reference Interval (mcIU/mL): Females: ??First Trimester: 0.23-3.88 ??Second Trimester: 0.22-3.90 ??Third Trimester: 0.44-4.66 Blood 10/07/2023 12:3 3 AM EDT 10/07/2023 12:40 AM EDT Narrative Resulting Agency Comment Spec In Lab Rusty Ohara MD CHEMISTRY ORDERABL ES Performing Organization Address [facility] Co de Phone Number [facility] [place] [address] * Phosphorus (10/07/2023 12:33 AM EDT) Phosphorus 3.2 2.5 - 4.5 mg/dL [facility] Blood 10/07/2023 12:3 3 AM EDT 10/07/2023 12:40 AM EDT Narrative Resulting Agency Comment Spec In Lab Rusty Ohara MD CHEMISTRY ORDERABL ES Performing Organization Address [facility] Co de Phone Number [facility] [place] [address] * Magnesium (10/07/2023 12:33 AM EDT) Magnesium 0.88 0.69 - 1.07 mmol/L [facility] Blood 10/07/2023 12:3 3 AM EDT 10/07/2023 12:40 AM EDT Narrative Resulting Agency Comment Spec In Lab Rusty Ohara MD CHEMISTRY ORDERABL ES Performing Organization Address City/[facility]/ZIP Co de Phone Number [facility] [place] [address] * Calcium (10/07/2023 12:33 AM EDT) Calcium 8.8 8.5 - 10.5 mg/dL [facility] Blood 10/07/2023 12:3 3 AM EDT 10/07/2023 12:40 AM EDT Narrative Resulting Agency Comment Spec In Lab Rusty Ohara MD CHEMISTRY ORDERABL ES [facility] [place] [address] * (ABNORMAL) Basic Metabolic Panel (non-fasting) (10/07/2023 12:33 AM EDT) Glucose Lvl 112 65 - 199 mg/dL [facility] Comment:Diabetes: >=200 mg/d L plus symptoms BUN 20(H) 8 - 18 mg/dL [facility] Creatinine 1.24(H) 0.70 - 1.20 mg/dL [facility] Sodium 141 135 - 145 mmol/L [facility] Potassium 3.7 3.5 - 5.0 mmol/L [facility] Comment: Please note: ??Patients with WBC >100,000 may have falsely elevated Potassium levels. ??For accurate Potassium quantification in these patients send serum separator tube (gold top) for subsequent determinations. ??Contact the Clinical Chemistry Laboratory if there are any questions. Chloride 106 98 - 107 mmol/L [facility] CO2 23 22 - 31 mmol/L [facility] Anion Gap 12 5 - 15 mmol/L [facility] Calcium 8.8 8.5 - 10.5 mg/dL [facility] Estimated GFR 44(L) >=60 mL/min/1. 73 m?? [facility] Comment: This patient's estimated GFR [...] and symptoms in addition to eGFR. Blood 10/07/2023 12:3 3 AM EDT 10/07/2023 12:40 AM EDT Narrative Resulting Agency Comment Spec In Lab Rusty Ohara MD CHEMISTRY ORDERABL ES [facility] [place] [address] documented in this encounter Visit Diagnoses Diagnosis Hypertensive crisis, unspecified- Primary Hypertensive crisis Unspecified essential hypertension Non-ST elevation myocardial infarction (NSTEMI) Acute myocardial infarction, subendocardial infarction, episode of care unspecified documented in this encounter Admitting Diagnoses Diagnosis Hypertensive crisis, unspecified documented in this encounter Administered Medications Inactive Administered Medications - up to 3 most recent administrations Medication Order MAR Action Action Date Dose Rate Site acetaminophen (Tylenol) tablet 650 mg 650 mg, Oral, EVERY 4 HOURS PRN, Starting on 10/07/23 at 0009, Until 10/11/23 at 1843, Pain, Headaches, Maximum dose of acetaminophen is 4,000 mg from all sources in 24 hours. When ordered for pain, acetaminophen should be given even when other ordered pain medications are indicated., Routine Given 10/09/2023 8:44 PM EDT 650 mg aspirin chewable tablet 81 mg 81 mg, Oral, DAILY, First dose on 10/07/23 at 0900, Until Discontinued, Routine Given 10/11/2023 9:03 AM EDT 81 mg Given 10/10/2023 8:49 AM EDT 81 mg Given 10/09/2023 8:28 AM EDT 81 mg atorvastatin (Lipitor) tablet 80 mg 80 mg, Oral, EVERY EVENING, First dose on 10/07/23 at 1700, Until Discontinued, Routine Given 10/10/2023 4:54 PM EDT 80 mg Given 10/09/2023 4:59 PM EDT 80 mg Given 10/08/2023 4:02 PM EDT 80 mg bisacodyL (Dulcolax) suppository 10 mg 10 mg, Rectal, DAILY PRN, Starting on Mon10/11/23 at 0435, Until Mon10/11/23 at 1843, Constipation, Routine bisacodyl EC (Dulcolax) tablet 10 mg 10 mg, Oral, DAILY PRN, Starting on Mon10/10/23 at 2251, Until Mon10/11/23 at 1843, Constipation, DO NOT CRUSH OR OPEN, Routine Given 10/11/2023 3:51 AM EDT 10 mg carvediloL (Coreg) tablet 12.5 mg 12.5 mg, Oral, 2 TIMES DAILY WITH MEALS, First dose (after last modification) on Mon10/09/23 at 1745, Until Discontinued, Routine Given 10/11/2023 9:03 AM EDT 12.5 mg Given 10/10/2023 4:54 PM EDT 12.5 mg Given 10/10/2023 8:49 AM EDT 12.5 mg carvediloL (Coreg) tablet 25 mg 25 mg, Oral, 2 TIMES DAILY WITH MEALS, First dose (after last modification) on Mon10/11/23 at 1700, Until Discontinued, Routine carvediloL (Coreg) tablet 3.125 mg 3.125 mg, Oral, 2 TIMES DAILY WITH MEALS, First dose on Mon10/07/23 at 0945, Until Discontinued, Routine Given 10/09/2023 8:28 AM EDT 3.125 mg Given 10/08/2023 4:02 PM EDT 3.125 mg Given 10/08/2023 7:56 AM EDT 3.125 mg empagliflozin (Jardiance) tablet 10 mg 10 mg, Oral, DAILY, First dose on Mon10/10/23 at 1200, Until Discontinued, This medication should not be given with reduced PO intake/fluid loss, severe illness, or in patients with ketonemia or ketouria., Routine, This medication should be held for 3 days prior to surgery. Is there a planned procedure within 3 days? No, Indication for empagliflozin: heart failure (HFpEF or HFrEF), Is this a new initiation for patients with heart failure (HFpEF or HFrEF) with or without diabetes? No Given 10/11/2023 9:03 AM EDT 10 mg Given 10/10/2023 12:17 PM EDT 10 mg enoxaparin (Lovenox) (40 mg/0.4 mL) subcutaneous injection 40 mg 40 mg, Subcutaneous, NIGHTLY, First dose on Mon10/09/23 at 2100, Until Discontinued, Routine Given 10/09/2023 8:44 PM EDT 40 mg Abdominal Tissue heparin (porcine) 50 units/mL in dextrose 5% 500 mL infusion 0-5,000 Units/hr (0-100 mL/hr), Intravenous, CONTINUOUS, Starting on 10/07/23 at 0215, Until Mon10/09/23 at 1627, Begin infusion at 1,000 units per hr (12 units/kg/hr). Maximum initial infusion rate is 1,000 units/hr. Infusion doses are rounded to the nearest 50 units. Target Heparin UFH Level (anti-Xa activity) = 0.3 - 0.7 international unit/mL Start adjustment schedule 6 hours after starting infusion. If Heparin UFH Level is: - Less than 0.1 international unit/mL: Administer PRN bolus and increase rate by 500 units per hr (4 units/kg/hr) - 0.1 - 0.19 international unit/mL: Administer PRN bolus and increase rate by 250 units per hr (2 units/kg/hr) - 0.2 - 0.29 international unit/mL: NO BOLUS and increase rate by 250 units per hr (2 units/kg/hr) - 0.3 - 0.7 international unit/mL: No change - 0.71 - 0.79 international unit/mL: NO BOLUS and decrease rate by 100 units per hr (1 units/kg/hr) - 0.8 - 0.99 international unit/mL: NO BOLUS and decrease rate by 250 units per hr (2 units/kg/hr) - Greater than or equal to 1.00 international unit/mL: Hold infusion for 60 minutes then decrease rate by 350 units per hour (3 units/kg/hr) Obtain Heparin UFH Level 6 hours after initiating heparin. Then 6 hours after each dose adjustment. When 2 consecutive Heparin UFH Level within target range of 0.3 - 0.7 international unit/mL, change Heparin UFH Level to once every 24 hours with A.M. labs while on heparin. RN to order required Heparin UFH Level - Per Protocol, Routine New Bag 10/09/2023 8:24 AM EDT 1,000 Units/hr 20 mL/hr New Bag 10/08/2023 7:45 AM EDT 1,000 Units/hr 20 mL/hr New Bag 10/08/2023 5:18 AM EDT 1,000 Units/hr 20 mL/hr hydrALAZINE (Apresoline) tablet 25 mg 25 mg, Oral, 3 TIMES DAILY, First dose on Mon10/09/23 at 1745, Until Discontinued, Take with Food, Routine Given 10/10/2023 8:50 AM EDT 25 mg Given 10/09/2023 8:44 PM EDT 25 mg Given 10/09/2023 4:59 PM EDT 25 mg lactulose (Chronulac) (0.67 gram/mL) oral liquid 20 g 20 g, Oral, 2 TIMES DAILY PRN, Starting on Mon10/11/23 at 0434, Until Mon10/11/23 at 1843, Constipation, Routine Given 10/11/2023 11:51 AM EDT 20 g losartan (Cozaar) tablet 25 mg 25 mg, Oral, DAILY, First dose on Mon10/10/23 at 1700, Until Discontinued, Routine Given 10/11/2023 9:03 AM EDT 25 mg Given 10/10/2023 4:54 PM EDT 25 mg magnesium oxide (Mag-Ox) tablet 400 mg 400 mg, Oral, DAILY, First dose on Mon10/07/23 at 0900, Until Discontinued, Routine Given 10/11/2023 9:03 AM EDT 400 mg Given 10/10/2023 8:49 AM EDT 400 mg Given 10/09/2023 8:28 AM EDT 400 mg nitroGLYcerin (200 mcg/mL) in dextrose 5% 250 mL infusion 0-200 mcg/min (0-60 mL/hr), Intravenous, CONTINUOUS, Starting on Mon10/06/23 at 2300, Until Mon10/10/23 at 1059, For hypertension: Titrate to keep systolic blood pressure between 160-170 mmHg. Start at 25 mcg/min. Increase/decrease by 25 mcg/min every 5 minutes until goal reached. Do not exceed 200 mcg/min., Routine Rate/Dose Change 10/09/2023 6:11 PM EDT 25 mcg/min 7.5 mL/hr Rate/Dose Change 10/09/2023 5:46 PM EDT 50 mcg/min 15 mL/h r Rate/Dose Change 10/09/2023 4:58 PM EDT 75 mcg/min 22.5 mL /hr nitroGLYcerin (Nitrostat) disintegrating tablet 0.4 mg 0.4 mg, Sublingual, EVERY 5 MIN PRN, Starting on Mon10/07/23 at 0009, Until Mon10/11/23 at 1843, Chest pain, May repeat every 5 minutes for a total of three doses. Notify provider if chest pain not relieved with nitroglycerin. Do not administer nitroglycerin if the patient has received or taken phosphodiesterase (PDE-5) inhibitors such as sildenafil, tadalafil or vardenafil within the last 24 to 72 hours., Routine Given 10/07/2023 1:51 PM EDT 0.4 mg Given 10/07/2023 1:42 PM EDT 0.4 mg ondansetron (pf) (Zofran) (2 mg/mL) injection 4 mg 4 mg, Intravenous, EVERY 8 HOURS PRN, Starting on Mon10/10/23 at 2251, Until Mon10/11/23 at 1843, Nausea Given 10/11/2023 10:14 AM EDT 4 mg Given 10/10/2023 11:06 PM EDT 4 mg pantoprazole EC (Protonix) tablet 20 mg 20 mg, Oral, DAILY, First dose (after last modification) on Mon10/07/23 at 0900, Until Discontinued Given 10/11/2023 9:03 AM EDT 20 mg Given 10/10/2023 8:49 AM EDT 20 mg Given 10/09/2023 8:43 AM EDT 20 mg polyethylene glycoL (Miralax) packet 17 g 17 g, Oral, DAILY, First dose on Mon10/10/23 at 2345, Until Discontinued, Routine Given 10/10/2023 11:06 PM EDT 17 g potassium chloride ER (Klor-Con M) crystal tablet 60 mEq 60 mEq, Oral, ONCE, 1 dose, On Mon10/07/23 at 0215, potassium chloride ER particle/crystal tablets (Klor-Con M) may be broken in half and each half swallowed separately. Tablets can be dissolved in ~4 ounces of water; allow ~2 minutes to dissolve, stir well and drink immediately. Do not crush, chew, or suck on tablet., Routine Given 10/07/2023 1:51 AM EDT 60 mEq rivaroxaban (Xarelto) tablet 10 mg 10 mg, Oral, DAILY, First dose on Mon10/10/23 at 1330, Until Discontinued, Routine, rivaroxabain (Xarelto) Indication: DVT or PE, Chronic/Long-term (Secondary Prevention) Given 10/11/2023 9:03 AM EDT 10 mg Given 10/10/2023 1:56 PM EDT 10 mg sodium chloride 0.9% infusion 150 mL/hr, Intravenous, CONTINUOUS, Starting on Mon10/09/23 at 1530, Until Mon10/09/23 at 1729, Recovery (Recovery-Hospital Unit) Continued Bag 10/09/2023 3:08 PM EDT 150 mL/hr 150 mL/hr spironolactone (Aldactone) tablet 25 mg 25 mg, Oral, DAILY, First dose on Mon10/10/23 at 1145, Until Discontinued, DO NOT SPLIT, CRUSH OR OPEN, Routine Given 10/11/2023 9:03 AM EDT 25 mg Given 10/10/2023 12:17 PM EDT 25 mg vitamin B Complex-vitamin C-folic Acid (Shikha-kely) 0.8 mg per tablet 1 tablet 1 tablet, Oral, DAILY, First dose on Mon10/07/23 at 0900, Until Discontinued, Routine Given 10/11/2023 9:03 AM EDT 1 tablet Given 10/10/2023 8:49 AM EDT 1 tablet Given 10/09/2023 8:28 AM EDT 1 tablet documented in this encounter Active and Recently Administered Medications Times are shown in EDT. Scheduled Medication Order 10/09/2023 10/10/2023 10/11/2023 aspirin chewable tablet 81 mg (CANCELED) 81 mg, Oral, DAILY, First dose on Mon10/07/23 at 0900, Until Discontinued, Routine 0828 (Given - Provider: Alcira Calles RN)1332 (MAR Hold - Provider: Admin Adt - Reason: Transfer to a Procedural area)1532 (MAR Unhold - Provider: Admin Adt) 0849 (Given - Provider: Rafaela Carroll RN) 0903 (Given - Provider: Rafaela Carroll RN) atorvastatin (Lipitor) tablet 80 mg 80 mg, Oral, EVERY EVENING, First dose on Mon10/07/23 at 1700, Until Discontinued, Routine 1332 (AUG Hold - Provider: Admin Adt - Reason: Transfer to a Procedural area)1532 (AUG Unhold - Provider: Admin Adt)1659 (Given - Provider: Alcira Calles RN) 165 (Given - Provider: Rafaela Carroll RN) carvediloL (Coreg) tablet 12.5 mg (CANCELED) 12.5 mg, Oral, 2 TIMES DAILY WITH MEALS, First dose (after last modification) on Mon10/09/23 at 1745, Until Discontinued, Routine 1659 (Given - Provider: Alcira Calles RN) 0849 (Given - Provider: Rafaela Carroll RN)1654 (Given - Provider: Rafaela Carroll RN) 0903 (Given - Provider: Rafaela Carroll RN) carvediloL (Coreg) tablet 25 mg 25 mg, Oral, 2 TIMES DAILY WITH MEALS, First dose (after last modification) on Mon10/11/23 at 1700, Until Discontinued, Routine carvediloL (Coreg) tablet 3.125 mg (CANCELED) 3.125 mg, Oral, 2 TIMES DAILY WITH MEALS, First dose on Mon10/07/23 at 0945, Until Discontinued, Routine 0828 (Given - Provider: Alcira Calles RN) empagliflozin (Jardiance) tablet 10 mg 10 mg, Oral, DAILY, First dose on Mon10/10/23 at 1200, Until Discontinued, This medication should not be given with reduced PO intake/fluid loss, severe illness, or in patients with ketonemia or ketouria., Routine, This medication should be held for 3 days prior to surgery. Is there a planned procedure within 3 days? No, Indication for empagliflozin: heart failure (HFpEF or HFrEF), Is this a new initiation for patients with heart failure (HFpEF or HFrEF) with or without diabetes? No 1217 (Given - Provider: Rafaela Carroll RN) 09 (Given - Provider: Rafaela Carroll RN) enoxaparin (Lovenox) (40 mg/0.4 mL) subcutaneous injection 40 mg (CANCELED) 40 mg, Subcutaneous, NIGHTLY, First dose on Mon10/09/23 at 2100, Until Discontinued, Routine 2043 (Given - Provider: Stef Bang RN) hydrALAZINE (Apresoline) tablet 25 mg (CANCELED) 25 mg, Oral, 3 TIMES DAILY, First dose on Mon10/09/23 at 1745, Until Discontinued, Take with Food, Routine 165 (Given - Provider: Alcira Calles RN)204 (Given - Provider: Stef Bang RN) 0850 (Given - Provider: Rafaela Carroll RN) losartan (Cozaar) tablet 25 mg 25 mg, Oral, DAILY, First dose on Mon10/10/23 at 1700, Until Discontinued, Routine 165 (Given - Provider: Rafaela Carroll RN) 0903 (Given - Provider: Rafaela Carroll RN) magnesium oxide (Mag-Ox) tablet 400 mg 400 mg, Oral, DAILY, First dose on Mon10/07/23 at 0900, Until Discontinued, Routine 0828 (Given - Provider: Alcira Calles RN)1332 (AUG Hold - Provider: Admin Adt - Reason: Transfer to a Procedural area)1532 (AUG Unhold - Provider: Admin Adt) 0849 (Given - Provider: Rafaela Carroll RN) 0903 (Given - Provider: Rafaela Carroll RN) pantoprazole EC (Protonix) tablet 20 mg 20 mg, Oral, DAILY, First dose (after last modification) on Mon10/07/23 at 0900, Until Discontinued 0843 (Given - Provider: Alcira Calles RN)1332 (AUG Hold - Provider: Admin Adt - Reason: Transfer to a Procedural area)1532 (MAR Unhold - Provider: Admin Adt) 0849 (Given - Provider: Rafaela Carroll RN) 0903 (Given - Provider: Rafaela Carroll RN) polyethylene glycoL (Miralax) packet 17 g 17 g, Oral, DAILY, First dose on Mon10/10/23 at 2345, Until Discontinued, Routine 2306 (Given - Provider: Stef Bang RN) rivaroxaban (Xarelto) tablet 10 mg 10 mg, Oral, DAILY, First dose on Mon10/10/23 at 1330, Until Discontinued, Routine, rivaroxabain (Xarelto) Indication: DVT or PE, Chronic/Long-term (Secondary Prevention) 1356 (Given - Provider: Rafaela Carroll RN) 0903 (Given - Provider: Rafaela Carroll RN) spironolactone (Aldactone) tablet 25 mg 25 mg, Oral, DAILY, First dose on 10/10/23 at 1145, Until Discontinued, DO NOT SPLIT, CRUSH OR OPEN, Routine 1217 (Given - Provider: Rafaela Carroll RN) 0903 (Given - Provider: Rafaela Carroll RN) vitamin B Complex-vitamin C-folic Acid (Shikha-kely) 0.8 mg per tablet 1 tablet 1 tablet, Oral, DAILY, First dose on 10/07/23 at 0900, Until Discontinued, Routine 0828 (Given - Provider: Alcira Calles RN)1332 (AUG Hold - Provider: Admin Adt - Reason: Transfer to a Procedural area)1532 (MAR Unhold - Provider: Admin Adt) 0849 (Given - Provider: Rafaela Carroll RN) 0903 (Given - Provider: Rafaela Carroll RN) Continuous Medication Order 10/09/2023 10/10/2023 10/11/2023 heparin (porcine) 50 units/mL in dextrose 5% 500 mL infusion (CANCELED)(Linked Group 1) 0-5,000 Units/hr (0-100 mL/hr), Intravenous, CONTINUOUS, Starting on 10/07/23 at 0215, Until 10/09/23 at 1627, Begin infusion at 1,000 units per hr (12 units/kg/hr). Maximum initial infusion rate is 1,000 units/hr. Infusion doses are rounded to the nearest 50 units. Target Heparin UFH Level (anti-Xa activity) = 0.3 - 0.7 international unit/mL Start adjustment schedule 6 hours after starting infusion. If Heparin UFH Level is: - Less than 0.1 international unit/mL: Administer PRN bolus and increase rate by 500 units per hr (4 units/kg/hr) - 0.1 - 0.19 international unit/mL: Administer PRN bolus and increase rate by 250 units per hr (2 units/kg/hr) - 0.2 - 0.29 international unit/mL: NO BOLUS and increase rate by 250 units per hr (2 units/kg/hr) - 0.3 - 0.7 international unit/mL: No change - 0.71 - 0.79 international unit/mL: NO BOLUS and decrease rate by 100 units per hr (1 units/kg/hr) - 0.8 - 0.99 international unit/mL: NO BOLUS and decrease rate by 250 units per hr (2 units/kg/hr) - Greater than or equal to 1.00 international unit/mL: Hold infusion for 60 minutes then decrease rate by 350 units per hour (3 units/kg/hr) Obtain Heparin UFH Level 6 hours after initiating heparin. Then 6 hours after each dose adjustment. When 2 consecutive Heparin UFH Level within target range of 0.3 - 0.7 international unit/mL, change Heparin UFH Level to once every 24 hours with A.M. labs while on heparin. RN to order required Heparin UFH Level - Per Protocol, Routine 0824 (New Bag - Provider: Alcira Calles RN)1332 (AUG Hold - Provider: Admin Adt - Reason: Transfer to a Procedural area)1532 (AUG Unhold - Provider: Admin Adt)1631 (Stopped - Provider: Jaimie Boone RN) nitroGLYcerin (200 mcg/mL) in dextrose 5% 250 mL infusion (CANCELED) 0-200 mcg/min (0-60 mL/hr), Intravenous, CONTINUOUS, Starting on Mon10/06/23 at 2300, Until Mon10/10/23 at 1059, For hypertension: Titrate to keep systolic blood pressure between 160-170 mmHg. Start at 25 mcg/min. Increase/decrease by 25 mcg/min every 5 minutes until goal reached. Do not exceed 200 mcg/min., Routine 1332 (AUG Hold - Provider: Admin Adt - Reason: Transfer to a Procedural area)1532 (AUG Unhold - Provider: Admin Adt)1636 (New Bag - Provider: Jaimie Boone RN - Comment: SBP 19)1650 (New Bag - Provider: Ariel Goodwin RN)1658 (Rate/Dose Change - Provider: Alcira Calles RN - Comment: SBP 173)1746 (Rate/Dose Change - Provider: Alcira Calles RN)1811 (Rate/Dose Change - Provider: Alcira Calles, LOIS) sodium chloride 0.9% infusion () 150 mL/hr, Intravenous, CONTINUOUS, Starting on Mon10/09/23 at 1530, Until Mon10/09/23 at 1729, Recovery (Recovery-Hospital Unit) 1508 (Continued Bag - Provider: Gina Stallworth RN)1747 (Stopped - Provider: Alcira Calles, LOIS) PRN Medication Order 10/09/2023 10/10/2023 10/11/2023 acetaminophen (Tylenol) tablet 650 mg 650 mg, Oral, EVERY 4 HOURS PRN, Starting on 10/07/23 at 0009, Until Mon10/11/23 at 1843, Pain, Headaches, Maximum dose of acetaminophen is 4,000 mg from all sources in 24 hours. When ordered for pain, acetaminophen should be given even when other ordered pain medications are indicated., Routine 1332 (AUG Hold - Provider: Admin Adt - Reason: Transfer to a Procedural area)153 (AUG Unhold - Provider: Admin Adt)2043 (Given - Provider: Stef Bang RN) bisacodyL (Dulcolax) suppository 10 mg 10 mg, Rectal, DAILY PRN, Starting on Mon10/11/23 at 0435, Until Mon10/11/23 at 1843, Constipation, Routine bisacodyl EC (Dulcolax) tablet 10 mg 10 mg, Oral, DAILY PRN, Starting on Tu10/10/23 at 2251, Until Mon10/11/23 at 1843, Constipation, DO NOT CRUSH OR OPEN, Routine 0351 (Given - Provider: Stef Bang RN) fentaNYL (pf) (50 mcg/mL) multi-dose injection (CANCELED) PRN, Starting on Mon10/09/23 at 1347, Until Mon10/09/23 at 1532, Intra-Operative (Intra-Procedure), Routine 1347 (Given - Provider: Christian Silva RN) hydrALAZINE (Apresoline) (20 mg/mL) injection (CANCELED) PRN, Starting on Mon10/09/23 at 1442, Until Mon10/09/23 at 1532, Intra-Operative (Intra-Procedure) 1442 (Given - Provider: Cheyenne Jacobson RN) lactulose (Chronulac) (0.67 gram/mL) oral liquid 20 g 20 g, Oral, 2 TIMES DAILY PRN, Starting on Mon10/11/23 at 0434, Until Mon10/11/23 at 1843, Constipation, Routine 1151 (Given - Provider: Rafaela Carroll RN) midazolam (pf) (Versed) (1 mg/mL) multi-dose injection (CANCELED) PRN, Starting on Mon10/09/23 at 1349, Until Mon10/09/23 at 1532, Intra-Operative (Intra-Procedure), Routine 1347 (Given - Provider: Christian Silva RN)1353 (Given - Provider: Cheyenne Jacobson RN) nitroGLYcerin (Nitrostat) disintegrating tablet 0.4 mg 0.4 mg, Sublingual, EVERY 5 MIN PRN, Starting on 10/07/23 at 0009, Until Mon10/11/23 at 1843, Chest pain, May repeat every 5 minutes for a total of three doses. Notify provider if chest pain not relieved with nitroglycerin. Do not administer nitroglycerin if the patient has received or taken phosphodiesterase (PDE-5) inhibitors such as sildenafil, tadalafil or vardenafil within the last 24 to 72 hours., Routine 1332 (AUG Hold - Provider: Admin Adt - Reason: Transfer to a Procedural area)1532 (AUG Unhold - Provider: Admin Adt) ondansetron (pf) (Zofran) (2 mg/mL) injection 4 mg 4 mg, Intravenous, EVERY 8 HOURS PRN, Starting on Tu10/10/23 at 2251, Until Mon10/11/23 at 1843, Nausea 2306 (Given - Provider: Stef Bang RN) 1014 (Given - Provider: Rafaela Carroll RN) Linked Groups Order Group 1: heparin (porcine) 50 units/mL in dextrose 5% 500 mL infusion (CANCELED)Jump to med 0-5,000 Units/hr (0-100 mL/hr), Intravenous, CONTINUOUS, Starting on 10/07/23 at 0215, Until Mon10/09/23 at 1627, Begin infusion at 1,000 units per hr (12 units/kg/hr). Maximum initial infusion rate is 1,000 units/hr. Infusion doses are rounded to the nearest 50 units. Target Heparin UFH Level (anti-Xa activity) = 0.3 - 0.7 international unit/mL Start adjustment schedule 6 hours after starting infusion. If Heparin UFH Level is: - Less than 0.1 international unit/mL: Administer PRN bolus and increase rate by 500 units per hr (4 units/kg/hr) - 0.1 - 0.19 international unit/mL: Administer PRN bolus and increase rate by 250 units per hr (2 units/kg/hr) - 0.2 - 0.29 international unit/mL: NO BOLUS and increase rate by 250 units per hr (2 units/kg/hr) - 0.3 - 0.7 international unit/mL: No change - 0.71 - 0.79 international unit/mL: NO BOLUS and decrease rate by 100 units per hr (1 units/kg/hr) - 0.8 - 0.99 international unit/mL: NO BOLUS and decrease rate by 250 units per hr (2 units/kg/hr) - Greater than or equal to 1.00 international unit/mL: Hold infusion for 60 minutes then decrease rate by 350 units per hour (3 units/kg/hr) Obtain Heparin UFH Level 6 hours after initiating heparin. Then 6 hours after each dose adjustment. When 2 consecutive Heparin UFH Level within target range of 0.3 - 0.7 international unit/mL, change Heparin UFH Level to once every 24 hours with A.M. labs while on heparin. RN to order required Heparin UFH Level - Per Protocol, Routine And heparin (porcine) (1,000 units/mL) injection 0-4,000 Units (CANCELED) 0-4,000 Units, Intravenous, BOLUS PER HEPARIN PROTOCOL, Starting on 10/07/23 at 0115, Until 10/09/23 at 1627, Per Protocol, START ADJUSTMENT SCHEDULE 6 HOURS AFTER STARTING INFUSION Bolus doses are rounded to the nearest 100 units. If Heparin UFH Level is: - Less than 0.1 international unit/mL: Bolus 60 units/kg (Maximum of 4,000 units) = Bolus 4,000 units - 0.1 - 0.19 International unit/mL: Bolus 30 units/kg (Maximum of 2,000 units) = Bolus 2,000 units - Equal to or greater than 0.2 international unit/mL: No Bolus, Routine documented in this encounter Care Teams Yeast Tender Relationship Specialty Start Date End Date Dulce Hidalgo MD [facility] [address] [place] [address] PCP - General Family Medicine 09/30/16 documented as of this encounter
--- OUTSIDE RECORDS SUMMARY | 2024-01-11 13:17 | XMS_ITS | Encounter Summary ---
Author Organization [facility] [place] [address] Care Team Providers Care Manager Continuous Improvement Name Role Phone Dulce Hidalgo MD Primary Care Provider [phone] Reason for Visit * Auth/Cert (Routine) Specialty Diagnoses / Procedures Referred By Contmaury t Referred To Contact Diagnoses Hypertensive crisis, unspecified Hypertensive emergency / NSTEMI Rusty Ohara MD [facility] [address] [place] [address] [facility] Referral ID Status Reason Start Date Expiration Date Visits Re quested Visits Authorized [id number] 1 1 Encounter Details Date Type Department Care Team (Late st Contact Info) Description 10/09/2023 1:30 PM EDT - 10/09/2023 2:30 PM EDT [place] [address] [facility] [address] [place], [place] [id number] CARDIAC CATHETERIZATION Social History Tobacco Use Types Packs/Day Years Used Date Smoking Tobacco: Never Smokeless Tobacco: Never Alcohol Use Standard Drinks/Week Comments No 0 (1 standard drink = 0.6 oz pur e alcohol) [facility] Utilities Answer Date Recorded In the [...] place to sleep or slept in a fpc (including now)? No 10/10/2023 DH IPV Inpatient [...] Sign Reading Time Taken Comments Blood Pressure 218/96 10/09/2023 1:37 PM EDT Pulse 70 10/09/2023 1:37 PM EDT Temperature 36.6 ??C (97.9 ??F) 10/09/2023 1 1:59 AM EDT Respiratory Rate 16 10/09/2023 1:37 PM EDT Oxygen Saturation 99% 10/09/2023 1:37 PM EDT Inhaled Oxygen Concentration - - Weight 117.2 kg (258 lb 6.1 oz) 10/09/2023 5:07 AM EDT Height 152.4 cm (5') 10/06/2023 [...] on RA Labs: 64 (at 14:47) --> 45516 (at 16:05, ULN 60), proBNP 1349 (H), [...] with Ureterectomy (2016) - Laparoscopic Adhesion Lysis (2016) - Incisional Hernia Repair (2018) - Endoscopy [...] Upright Result Value Ref Range WORKSTATION ID [id number] Studies: Results for orders placed or performed during the hospital encounter of 10/06/23 XR Abdomen Flat & Upright (Exam End: 10/11/2023 11:21 AM) Result Value WORKSTATION ID [id number] Narrative EXAMINATION: XR ABDOMEN FLAT AND UPRIGHT [...] who have questions please contact the health patient care technician instructor that requested your imaging first. Electronically signed by: Gavin Griffith MD, [facility] ([phone]), at 10/11/2023 11:39 AM Pending Studies and [...] appointments: During 8am-5pm Monday through Monday call [phone] to speak with a nurse in the cardiology clinic All other times call [phone] and ask to speak to the product manager e commerce hearing aid consultant. Activity level: Make sure you know the [...] Center 10/23/2023 10:00 AM Taqueria Garcia MD [facility] CARD 4A [facility] 11/13/2023 2:20 PM Ariel Do MD [facility] Charter Boat Captain: Cardiology follow-up scheduled for you with Dr. Taqueria Garcia above. PCP: Dulce Hidalgo MD at [phone] Your Inpatient Doctor(s) at [facility]: Rusty Ohara MD - Attending physician If you have non-emergent questions between now and the time of your follow up appointments: During 8am-5pm Monday through Monday call [phone] to speak with a nurse in the cardiology clinic All other times call [phone] and ask to speak to the product manager e commerce hearing aid consultant. General Instructions None Future Appointments and Orders Future Appointments and Orders Future Appointments Provider Department Dept Phone 10/23/2023 10:00 AM Taqueria Garcia MD Cardiology at [facility] Arrive at: Manager Of Software Development Area 4A [phone] 11/13/2023 2:20 PM Ariel Do MD; UROLOGY, CYSTO1; UROLOGY PROCEDURE NURSE Urology at [facility] Arrive at: Manager Of Software Development Area 5B [phone] Discharge References/Attachments: Discharge References/Attachments Carvedilol Oral Tablet (CARVEDILOL - ORAL) (Trinidadian) Atorvastatin Oral Tablet (ATORVASTATIN - ORAL) (Trinidadian) Losartan Oral Tablet (LOSARTAN - ORAL) (Trinidadian) Spironolactone Oral Suspension (SPIRONOLACTONE - ORAL) (Trinidadian) Coronary Artery Disease (Trinidadian) High Blood Pressure: Make the Most of Home Monitoring: Video (Trinidadian) Electronically Signed By: Coleman Macdonald MD 10/11/2023 [...] appointments: During 8am-5pm Monday through Monday call [phone] to speak with a nurse in the cardiology clinic All other times call [phone] and ask to speak to the product manager e commerce hearing aid consultant. Activity level: Make sure you know the [...] Center 10/23/2023 10:00 AM Taqueria Garcia MD [facility] CARD 4A [facility] 11/13/2023 2:20 PM Ariel Do MD [facility] Charter Boat Captain: Cardiology follow-up scheduled for you with Dr. Taqueria Garcia above. PCP: Dulce Hidalgo MD at [phone] Your Inpatient Doctor(s) at [facility]: Rusty Ohara MD - Attending physician If you have non-emergent questions between now and the time of your follow up appointments: During 8am-5pm Monday through Monday call [phone] to speak with a nurse in the cardiology clinic All other times call [phone] and ask to speak to the product manager e commerce hearing aid consultant. * Attachments The following attachments cannot be sent through Care Everywhere. * Carvedilol Oral Tablet (CARVEDILOL - ORAL) (Trinidadian) * Atorvastatin Oral Tablet (ATORVASTATIN - ORAL) (Trinidadian) * Losartan Oral Tablet (LOSARTAN - ORAL) (Trinidadian) * Spironolactone Oral Suspension (SPIRONOLACTONE - ORAL) (Trinidadian) * Coronary Artery Disease (Trinidadian) * High Blood Pressure: Make the Most of Home Monitoring: Video (Trinidadian) documented in this encounter Medications at Time [...] of this encounter Progress Notes * Rafaela Carroll, RN - 10/11/2023 4:38 PM EDT Pt [...] massive troponin leak, and is transferred to [facility] for NSTEMI andhypertensive emergency management. Patient with [...] DIAGNOSTIC performed by Noam Masters MD at [facility] ENDOSCOPY PRO COLONOSCOPY, REMV LESN, SNARE N/A 09/30/2021 COLONOSCOPY, POLYPECTOMY, REMOVAL LESION BY SNARE (WRVU 4.67) [facility] INJECTION DX/THER SBST INTRLMNR LMBR/SAC W/IMG GDN Midline 02/17/2023 INJECTION, EPIDURAL, LUMBAR OR SACRAL (CAUDAL), WITH IMAGING GUIDANCE (WRVU 1.8) performed by Rosy Bustillo MD at [facility] PAIN MGMT MSO PRO INJECTION DX/THER SBST INTRLMNR LMBR/SAC W/IMG GDN Midline 02/17/2023 Lumbar or Sacral Epidural Steroid Inj Sacral (Caudal) (29583) [facility] MSO PRO NEPHRECTOMY, W/PART. URETECTOMY Right 11/02/2016 @LAPAROSCOPY TOTAL NEPHROURETERECTOMY, ROBOTICS ASSIST (WRVU 25.36) performed by Ariel Do MDat [facility] MAIN OR PRO REPAIR INCISIONAL HERNIA, REDUCIBLE N/A 07/17/2018 REPAIR INITIAL INCISIONAL OR VENTRAL HERNIA REDUCIBLE (WRVU 11.92) performed by Michael Carroll MD at [facility] MAIN OR PRO UNLISTED LAPAROSCOPIC PROC ABD PERITONEUM & OMENTUM N/A 11/02/2016 LAPAROSCOPIC, EXTENSIVE LYSIS ADHESIONS (WRVU *) performed by Ariel Do MD at [facility] MAIN OR PRO UP GI ENDOSCOPY, BALL DIL, 30MM N/A 09/30/2021 EGD,WITH DILATION ESOPHAGUS WITH BALLOON,< 30 MM (WRVU 2.77) performed by Clive Figueroa MD at [facility] ENDOSCOPY PRO UPPER GI ENDOSCOPY, BIOPSY N/A 11/30/2018 EGD WITH BIOPSY (WRVU 2.49) performed by Noam Masters MD at [facility] ENDOSCOPY Social History: Home set-up: Lives with her , 31 y.o grand-daughter, and 2 great grandkids (6 and 8 y.o) in a log cabin in [place], [place]. She remains on the first level [...] cane, commode, lift recliner, shower chair, leg staff development coordinator Fall history: Denies any recent falls Precautions/Special [...] very pleasant, motivated Vision: Wears corrective lenses multimedia assistant Skin: Visible skin grossly intact, BLE edema [...] Low Complexity Evaluation Meredith Dacosta, PT Pager: [phone] Physical Therapy Inpatient Rehabilitation Department * Rusty [...] massive troponin leak, and is transferred to [facility] for NSTEMI and hypertensiveemergency management. Active Problems: [...] 219 210 Recent Labs 10/10/2331310/09/23 0611 10/08/23 0422 NA 141 139 142 K 4.2 4.0 4.4 CL 107 106 109* CO2 24 24 BUN 14 13 14 CREATININE 1.23* 1.17 [...] embolism and DVT (on Xarelto,last dose on 10/05), HFpEF, HTN, HLD, CKD3b, and multiple prior malignancies (s/p right nephrectomy and ureterectomy) who presented to OSH with chest tightness and was found to have severe hypertension with newly reduced EF and massive troponin leak, and is transferred to [facility] for NSTEMI and hypertensive emergency management. 10/10/23: [...] MD, FACP, FACC Section of Cardiovascular Medicine [facility] Chief Pilotmolecular modeler [facility] [employer] [facility] This patient meets or has met medical [...] massive troponin leak, and is transferred to [facility] for NSTEMI and hypertensiveemergency management. Active Problems: [...] 32.7* 31.7* PLATELET 210 239 Recent Labs 10/08/2342110/07/2332 NA 142 141 K 4.4 3.7 CL 109* 106 CO2 24 23 BUN 14 20* CREATININE 1.22* 1.24* No results for input(s): AST, ALT, ALKPHOS, BILITOT, BILIDIR in the last 168 hours. Recent Labs 10/08/2342110/07/2332 CALCIUM 9.3 8.8 8.8 MAGNESIUM 0.92 0.88 PHOS -- 3.2 Recent Labs 10/07/2332 INR 1.3 PT 14.7* PTT 37 No [...] Medications: heparin (porcine) infusion 1,000 Units/hr (10/08/23 8934) nitroGLYcerin Stopped (10/07/23 0127) PRN Medications: nitroGLYcerin, [...] massive troponin leak, and is transferred to [facility] for NSTEMI and hypertensive emergency management. Going [...] MD, FACP, FACC Section of Cardiovascular Medicine [facility] Chief Pilotmolecular modeler [facility] [employer] [facility] This patient meets or has met medical criteria to require an inpatient level of care, i.e. a minimum of two midnights in the hospital with multiple complex problems. * Rusty Ohara MD - 10/08/2023 7:48 AM EDT Inpatient Cardiology Progress Note Patient Name: Isaura Aguiar Date of Admission: 10/06/2023 ( Hospital Day 2 days ) Service: S1 ID: Isaura Aguiar [...] massive troponin leak, and is transferred to [facility] for NSTEMI and hypertensiveemergency management. Active Problems: [...] 32.7* 31.7* PLATELET 210 239 Recent Labs 10/08/2342110/07/233 NA 142 141 K 4.4 3.7 CL 109* 106 CO2 24 23 BUN 14 20* CREATININE 1.22* 1.24* No results for input(s): AST, ALT, ALKPHOS, BILITOT, BILIDIR in the last 168 hours. Recent Labs 10/08/2342110/07/233 CALCIUM 9.3 8.8 8.8 MAGNESIUM 0.92 0.88 PHOS -- 3.2 Recent Labs 10/07/2332 INR 1.3 PT 14.7* PTT 37 No [...] Medications: heparin (porcine) infusion 1,000 Units/hr (10/08/23 0782) nitroGLYcerin Stopped (10/07/23 0127) PRN Medications: nitroGLYcerin, [...] massive troponin leak, and is transferred to [facility] for NSTEMI and hypertensive emergency management. Going [...] MD, FACP, FACC Section of Cardiovascular Medicine [facility] Chief Pilotmolecular modeler [facility] [employer] [facility] [employer] [facility] This patient meets or has met medical [...] massive troponin leak, and is transferred to [facility] for NSTEMI and hypertensive emergency management. Reason for intervention: MST evaluation Nutrition Recommendations: ADAT: Goal is [facility]. ONS available PRN. Monitor intake. Consider daily [...] sedation - FULL CODE Vahid Burrows MD Executive Chairman PGY4 * Rusty Ohara MD - 10/07/2023 2:08 AM EDT Images from the original note were not included. Cardiology H&P Patient info: Name: Isaura Aguiar : 1940 PCP: Dulce Hidalgo MD PCP phone number: [phone] Date of Admission: 10/06/2023 ( Hospital Day [...] massive troponin leak, and is transferred to [facility] for NSTEMI and hypertensiveemergency management. HPI: Patient [...] on RA Labs: 64 (at 14:47) --> 60038 (at 16:05, ULN 60), proBNP 1349 (H), [...] PIV - 20G R Labs: Recent Labs 10/07/2332 WBC 6.9 HGB 9.6* HCT 31.7* PLATELET 239 MCV 80.7* Recent Labs 10/07/2332 NA 141 CL 106 CO2 23 K 3.7 MAGNESIUM 0.88 PHOS 3.2 CALCIUM 8.8 8.8 BUN 20* CREATININE 1.24* Coags Recent Labs 10/07/2332 INR 1.3 PT 14.7* PTT 37 DDIMER 606* Endocrine Recent Labs 10/07/2332 TSH 1.30 Microbiology: none Imaging: none Assessment [...] massive troponin leak, and is transferred to [facility] for NSTEMI and hypertensive emergency management, on HD# 1. 10/06/2023: patient's presentation is atypical as she had mild chest tightness but was found to haveBP 225/112 with troponin-I leak >77036 (ULN 60) and TTE with newly reduced [...] need to wait for 48 hours from 26 AM's Xarelto dose). #NSTEMI, c/f Type 1 [...] MD, FACP, FACC Section of Cardiovascular Medicine [facility] Chief Pilotmolecular modeler [facility] [employer] [facility] This patient meets or has met medical [...] Preferred Pharmacy: [facility] [employer] [address] [address] [email or web address] [address] [id number] [place], [place] - [address] [place] [address] AT [facility] & [address] [address] Advance Care Planning: Attempt Cardiopulmonary Resuscitation - [...] walker - rolling, shower chair, commode chair [address] [facility] [facility] [address] Social & Family Supports: All names listed below confirmed with patient as current and correct Extended Emergency Contact Information Primary Emergency Contact: Taran Aguiar Leni Address: [address] [place] [address] [facility] Relation: Spouse Secondary Emergency Contact: [place] [address] [facility] Mobile Relation: Child Current Care Provided by: [...] with Taran/ when medically ready. Registered Nurse Sports Information Director / Platen Press Operator will continue to follow patient???s progress and [...] scanned docs. NPO since this morning for [facility]. [facility] this afternoon, no interventions. TR Band off at 1745, site CDI, no bleeding or hematoma. Patient denies CP, SOB, or dizziness. SBP>160 since returning from general laborer, titrating nitro gtt and Q5 BP checks- [...] Procedure Note: Patient Name: Isaura Aguiar : [id number] MR#: [id number] Case Date: 10/09/2023 Tombstone Polisher: Surgeon(s) and Role: * Taqueria Garcia MD - Primary * Stuart Yousif MD - Fellow - Assisting Preoperative diagnosis: NSTEMI Postoperative diagnosis: Type II MA Procedure(s) performed: [facility] Cors Femoral angiography Perclose Access: Right radial and right SLAT PICKLER A time-out was conducted prior to the [...] remains off at this time. NPO since CA for planned procedure. PLAN MOVING FORWARD: Plan [...] Summary OUTCOME EVALUATION NOTE: OUTCOME SUMMARY: Isaura S Stefania was admitted for NSTEMI. Today, A&Ox4, Hypertensive otherwise VSS on RA, NSR.Pt had chest pressure, gave nitro x2 with relief. EKG completed and MD notified per protocol. PLAN MOVING FORWARD: [] NPO tonight - Cath tomorrow [] [facility] due 2100 CPG GOAL OUTCOME EVALUATION: [...] 3:14 AM EDT DIFFERENTIAL, AUTOMATED Routine 10/10/19 24 3:14 AM EDT HC VENIPUNCTURE Routine 10/10/2023 [...] 10/08/2023 4:22 AM EDT DIFFERENTIAL, AUTOMATED Routine 04/28/20 24 4:22 AM EDT HC CBC,PLT & AUTO [...] Flat & Upright (10/11/2023 11:21 AM EDT) [place] Signature WORKSTATION ID [id number] RAD Anatomical Region Laterality Modality Abdomen N/A Digital Radiogra phy Impressions 10/11/2023 11:39 AM EDT Normal bowel gas pattern, no obstruction. Thank you for letting us participate in the care of this patient. ??If you are a health care provider and have any questions regarding this report, please contact the number below. ??For patients who have questions please contact the health patient care technician instructor that requested your imaging first. ? Electronically signed by: Gavin Griffith MD, [facility] ([phone]), at 10/11/2023 11:39 AM Narrative 10/11/2023 11:39 [...] patients who have questions please contactthe health patient care technician instructor that requested your imaging first. Electronically signed by: Gavin Griffith MD, [facility]([phone]), at 10/11/2023 11:39 AM Rusty Ohara MD IMG DX ORDERABLES * Differential, Automated (10/11/2023 4:35 AM EDT) Neutrophils % 74.3 % [facility] Neutr Abs (ANC) 4.96 1.70 - 6.10 x10(3)/[facility] Lymphocytes % 16.2 % [facility] Lymphocytes Abs 1.1 0.9 - 3.2 x10(3)/[facility] Monocytes % 7.4 % [facility] Monocyte Abs 0.5 0.3 - 0.9 x10(3)/[facility] Eosinophils % 1.4 % [facility] Eosinophils Abs 0.1 0.0 - 0.4 x10(3)/[facility] Basophils % 0.2 % [facility] Basophils Abs 0.0 0.0 - 0.1 x10(3)/[facility] Immature Gran % 0.50 % [facility] Comment: Immature granulocytes(IG's)percentage and absolute count will include metamyelocytes, myelocytes, and promyelocytes. Blood smears from CBCs yielding IG's will be scanned manually for concordance. If this scan disagrees with the automated IG or if promyelocytes are noted, a manual differential will be performed. [place] Gran Abs 0.03 0.00 - 0.04 x10(3)/[facility] Blood 10/11/2023 4:35 AM EDT 10/11/2023 4:47 AM EDT Narrative Resulting Agency Comment Spec In Lab Margarita Waer MD HEMATOLOGY ORDERABLE S [facility] [place] [address] * (ABNORMAL) Hemogram (10/11/2023 4:35 AM EDT) WBC 6.7 4.0 - 9.5 x10(3)/[facility] RBC 4.18 4.00 - 5.21 x10(6)/[facility] Hemoglobin 10.4(L) 11.7 - 15.5 g/dL [facility] Hematocrit 34.3(L) 35.7 - 45.8 % [facility] MCV 82.1(L) 82.6 - 94.4 fL [facility] MCH 24.9(L) 27.1 - 32.0 pg [facility] MCHC 30.3(L) 31.7 - 35.0 g/dL [facility] Platelets 220 145 - 357 x10(3)/[facility] RDWSD 59.7(H) 37.0 - 46.0 fL [facility] RDWCV 21.0(H) 11.5 - 14.1 % [facility] MPV 10.5 7.6 - 12.9 fL [facility] nRBC % Auto 0.0 % [facility] nRBC Abs Auto 0.000 0.000 - 0.000 x10(3)/[facility] Blood 10/11/2023 4:35 AM EDT 10/11/2023 4:47 AM EDT Narrative Resulting Agency Comment Spec In Lab Margarita Ware MD HEMATOLOGY ORDERABLE S Performing Organization Address [facility]/ZIP Co de Phone Number [facility] [place] [address] * Magnesium (10/11/2023 4:35 AM EDT) Pathologist [facility] Magnesium 0.92 0.69 - 1.07 mmol/L [facility] Blood 10/11/2023 4:35 AM EDT 10/11/2023 4:47 AM EDT Narrative Resulting Agency Comment Spec In Lab Rusty Ohara MD CHEMISTRY ORDERABL ES Performing Organization Address [facility]/ZIP Co de Phone Number [facility] [place] [address] * (ABNORMAL) Basic Metabolic Panel (non-fasting) (10/11/2023 4:35 AM EDT) Glucose Lvl 139 65 - 199 mg/dL [facility] Comment:Diabetes: >=200 mg/d L plus symptoms BUN 14 8 - 18 mg/dL [facility] Creatinine 1.34(H) 0.70 - 1.20 mg/dL [facility] Sodium 142 135 - 145 mmol/L [facility] Potassium 4.4 3.5 - 5.0 mmol/L [facility] Comment: Please note: ??Patients with WBC >100,000 may have falsely elevated Potassium levels. ??For accurate Potassium quantification in these patients send serum separator tube (gold top) for subsequent determinations. ??Contact the Clinical Chemistry Laboratory if there are any questions. Chloride 107 98 - 107 mmol/L [facility] CO2 22 22 - 31 mmol/L [facility] Anion Gap 13 5 - 15 mmol/L [facility] Calcium 9.5 8.5 - 10.5 mg/dL [facility] Estimated GFR 40(L) >=60 mL/min/1. 73 m?? [facility] Comment: This patient's estimated GFR [...] Rusty Ohara MD CHEMISTRY ORDERABL ES [facility] [place] [address] * Differential, Automated (10/10/2023 3:14 AM EDT) Neutrophils % 63.6 % [facility] Neutr Abs (ANC) 3.64 1.70 - 6.10 x10(3)/mcL [facility] Lymphocytes % 23.4 % [facility] Lymphocytes Abs 1.3 0.9 - 3.2 x10(3)/[facility] Monocytes % 10.1 % [facility] Monocyte Abs 0.6 0.3 - 0.9 x10(3)/[facility] Eosinophils % 2.3 % [facility] Eosinophils Abs 0.1 0.0 - 0.4 x10(3)/[facility] Basophils % 0.3 % [facility] Basophils Abs 0.0 0.0 - 0.1 x10(3)/[facility] Immature Gran % 0.30 % [facility] Comment: Immature granulocytes(IG's)percentage and absolute count will include metamyelocytes, myelocytes, and promyelocytes. Blood smears from CBCs yielding IG's will be scanned manually for concordance. If this scan disagrees with the automated IG or if promyelocytes are noted, a manual differential will be performed. [place] Gran Abs 0.02 0.00 - 0.04 x10(3)/[facility] Blood 10/10/2023 3:14 AM EDT 10/10/2023 3:26 AM EDT Narrative Resulting Agency Comment Spec In Lab Margarita Ware MD HEMATOLOGY ORDERABLE S [facility] [place] [address] * (ABNORMAL) Hemogram (10/10/2023 3:14 AM EDT) WBC 5.7 4.0 - 9.5 x10(3)/[facility] RBC 3.97(L) 4.00 - 5.21 x10(6)/[facility] Hemoglobin 9.9(L) 11.7 - 15.5 g/dL [facility] Hematocrit 32.6(L) 35.7 - 45.8 % [facility] MCV 82.1(L) 82.6 - 94.4 fL [facility] MCH 24.9(L) 27.1 - 32.0 pg [facility] MCHC 30.4(L) 31.7 - 35.0 g/dL [facility] Platelets 205 145 - 357 x10(3)/[facility] RDWSD 57.6(H) 37.0 - 46.0 [facility] RDWCV 20.4(H) 11.5 - 14.1 % [facility] MPV 10.9 7.6 - 12.9 [facility] nRBC % Auto 0.0 % [facility] nRBC Abs Auto 0.000 0.000 - 0.000 x10(3)/[facility] Blood 10/10/2023 3:14 AM EDT 10/10/2023 3:26 AM EDT Narrative Resulting Agency Comment Spec In Lab Margarita Ware MD HEMATOLOGY ORDERABLE S Performing Organization Address [facility]/ZIP Co de Phone Number [facility] [place] [address] * Magnesium (10/10/2023 3:14 AM EDT) Magnesium 0.85 0.69 - 1.07 mmol/L [facility] Blood 10/10/2023 3:14 AM EDT 10/10/2023 3:26 AM EDT Narrative Resulting Agency Comment Spec In Lab Rusty Ohara MD CHEMISTRY ORDERABL ES Performing Organization Address [facility]/ZIP Co de Phone Number [facility] [place] [address] * (ABNORMAL) Basic Metabolic Panel (non-fasting) (10/10/2023 3:14 AM EDT) Glucose Lvl 112 65 - 199 mg/dL [facility] Comment:Diabetes: >=200 mg/d L plus symptoms BUN 14 8 - 18 mg/dL [facility] Creatinine 1.23(H) 0.70 - 1.20 mg/dL [facility] Sodium 141 135 - 145 mmol/L [facility] Potassium 4.2 3.5 - 5.0 mmol/L [facility] Comment: Please note: ??Patients with WBC >100,000 may have falsely elevated Potassium levels. ??For accurate Potassium quantification in these patients send serum separator tube (gold top) for subsequent determinations. ??Contact the Clinical Chemistry Laboratory if there are any questions. Chloride 107 98 - 107 mmol/L [facility] CO2 24 22 - 31 mmol/L [facility] Anion Gap 10 5 - 15 mmol/L [facility] Calcium 9.2 8.5 - 10.5 mg/dL [facility] Estimated GFR 44(L) >=60 mL/min/1. 73 m?? [facility] Comment: This patient's estimated GFR [...] Rusty Ohara MD CHEMISTRY ORDERABL ES [facility] [place] [address] * CARDIAC CATHETERIZATION (10/09/2023 2:53 PM EDT) Anatomical Region Laterality Modality Other Narrative 10/18/2023 3:57 PM EDT ?[facility] ? Cardiac Catheterization/Intervention Report ? Patient Name: Stefania, Isaura S. ? Procedure Date: 10/09/2023 ? A #: [id number] ? Primary Physician: Mogadam, Emad ? Case #: [id number] ? File Name: [id number] ? Catheterization Order Number: [id number] ? [facility] ? Final Report [place], [place] ? Patient Name: ? Isaura Aguiar ? ID#: ?[id number] ? : ?1940 ? Procedure Date: ? October 09, 2023 ? Case #: ? [id number] ? Room: ? 6 ? Case Physician: ? Taqueria Garcia M.D. ? Start: ?13:47 ?Fellow: ? Stuart N Benja MVee. ? Admission: ??10/06/2023 ? Referring Physician: ??Jakob Matthew M.D. ? Procedures: ?* Coronary Angiography ?* [...] procedure was Urgent. The indication for ?the general laborer visit is ACS greater than 24 hrs. [...] peripheral intravascular ?ultrasound and vascular ultrasound. ? Emaartemio Garcia M.D. ? Electronically Signed by: Taqueria Garcia M.D. ? Report Finalized: 10/18/2023 ??15:50 ? Report Last Ammended: 2023 ??08:32 ? Procedure Note Taqueria Garcia MD - 2023 [facility] Cardiac Catheterization/Intervention Report Patient Name: Isaura Aguiar Procedure Date: 10/09/2023 A #: [id number] Primary Physician: Taqueria Garcia Case #: [id number] File Name: [id number] Catheterization Order Number: [id number] [facility] FinalReport [place], [place] Patient Name: Isaura Aguiar ID#:[id number] :1940 Procedure Date: October 09, 2023 Case [...] diagnostic procedure was Urgent. The indicationfor the general laborer visit is ACS greater than 24 hrs. [...] Scan, Peripheral Blood (10/09/2023 6:11 AM EDT) Pathologist [facility] Plat Estimate Normal [facility] RBC Morphology Abnormal [facility] Microcytes 1-5 /HPF [facility] Hypochromia Slight [facility] Polychromasia Present >5/HPF [facility] Ovalocytes 1-5 /HPF [facility] Blood 10/09/2023 6:11 AM EDT 10/09/2023 6:28 AM EDT Narrative Resulting Agency Comment Spec In Lab Margarita Ware MD HEMATOLOGY ORDERABLE S Performing Organization Address City/State/[facility] Co de Phone Number [facility] [place] [address] * Differential, Automated (10/09/2023 6:11 AM EDT) Pathologist [facility] Neutrophils % 58.9 % [facility] Neutr Abs (ANC) 2.83 1.70 - 6.10 x10(3)/[facility] Lymphocytes % 26.2 % [facility] Lymphocytes Abs 1.3 0.9 - 3.2 x10(3)/[facility] Monocytes % 10.4 % [facility] Monocyte Abs 0.5 0.3 - 0.9 x10(3)/[facility] Eosinophils % 3.7 % [facility] Eosinophils Abs 0.2 0.0 - 0.4 x10(3)/[facility] Basophils % 0.4 % [facility] Basophils Abs 0.0 0.0 - 0.1 x10(3)/[facility] Immature Gran % 0.40 % [facility] Comment: Immature granulocytes(IG's)percentage and absolute count will include metamyelocytes, myelocytes, and promyelocytes. Blood smears from CBCs yielding IG's will be scanned manually for concordance. If this scan disagrees with the automated IG or if promyelocytes are noted, a manual differential will be performed. [place] Gran Abs 0.02 0.00 - 0.04 x10(3)/[facility] Blood 10/09/2023 6:11 AM EDT 10/09/2023 6:28 AM EDT Narrative Resulting Agency Comment Spec In Lab Margarita Ware MD HEMATOLOGY ORDERABLE S Performing Organization Address City/State/[facility] Co de Phone Number [facility] [place] [address] * (ABNORMAL) Hemogram (10/09/2023 6:11 AM EDT) WBC 4.8 4.0 - 9.5 x10(3)/[facility] RBC 3.92(L) 4.00 - 5.21 x10(6)/[facility] Hemoglobin 9.7(L) 11.7 - 15.5 g/dL [facility] Hematocrit 32.4(L) 35.7 - 45.8 % [facility] MCV 82.7 82.6 - 94.4 fL [facility] MCH 24.7(L) 27.1 - 32.0 pg [facility] MCHC 29.9(L) 31.7 - 35.0 g/dL [facility] Platelets 219 145 - 357 x10(3)/[facility] RDWSD 57.8(H) 37.0 - 46.0 fL [facility] RDWCV 19.9(H) 11.5 - 14.1 % [facility] MPV 11.0 7.6 - 12.9 fL [facility] nRBC % Auto 0.0 % [facility] nRBC Abs Auto 0.000 0.000 - 0.000 x10(3)/mcL [facility] Blood 10/09/2023 6:11 AM EDT 10/09/2023 6:28 AM EDT Narrative Resulting Agency Comment Spec In Lab Margarita Ware MD HEMATOLOGY ORDERABLE S Performing Organization Address City/[facility]/ZIP Co de Phone Number [facility] [place] [address] * Magnesium (10/09/2023 6:11 AM EDT) Magnesium 0.90 0.69 - 1.07 mmol/L [facility] Blood 10/09/2023 6:11 AM EDT 10/09/2023 6:28 AM EDT Narrative Resulting Agency Comment Spec In Lab Rusty Ohara MD CHEMISTRY ORDERABL ES Performing Organization Address [facility]/ZIP Co de Phone Number [facility] [place] [address] * (ABNORMAL) Basic Metabolic Panel (non-fasting) (10/09/2023 6:11 AM EDT) Glucose Lvl 110 65 - 199 mg/dL [facility] Comment:Diabetes: >=200 mg/d L plus symptoms BUN 13 8 - 18 mg/dL [facility] Creatinine 1.17 0.70 - 1.20 mg/dL [facility] Sodium 139 135 - 145 mmol/L [facility] Potassium 4.0 3.5 - 5.0 mmol/L [facility] Comment: Please note: ??Patients with WBC >100,000 may have falsely elevated Potassium levels. ??For accurate Potassium quantification in these patients send serum separator tube (gold top) for subsequent determinations. ??Contact the Clinical Chemistry Laboratory if there are any questions. Chloride 106 98 - 107 mmol/L [facility] CO2 25 22 - 31 mmol/L [facility] Anion Gap 8 5 - 15 mmol/L [facility] Calcium 9.4 8.5 - 10.5 mg/dL [facility] Estimated GFR 47(L) >=60 mL/min/1. 73 m?? [facility] Comment: This patient's estimated GFR [...] Rusty Ohara MD CHEMISTRY ORDERABL ES [facility] [place] [address] * Heparin (unfractionated) Level (10/09/2023 6:11 AM EDT) Heparin UFH Level 0.30 IU/mL [facility] Comment: Heparin (anti-Xa) levels should [...] Lab Rusty Ohara MD HEMATOLOGY ORDERAB LES [facility] [place] [address] * (ABNORMAL) Troponin (10/09/2023 6:11 AM EDT) Troponin-T HS 1,655(H) <=14 ng/L [facility] Comment: This patient's troponin T [...] troponin value can be found in the [facility] Laboratory Test Catalog Troponin - [facility] Laboratory Test Catalog Reference: Fourth [place] Definition of Myocardial Infarction. Journal of the [place] [employer] 2018;72:6625-7979 Blood 10/09/2023 6:11 AM EDT 10/09/2023 6:28 AM EDT Narrative Resulting Agency Comment Spec In Lab Rusty Ohara MD CHEMISTRY ORDERABL ES Performing Organization Address [facility] Co de Phone Number [facility] [place] [address] * Heparin (unfractionated) Level (10/08/2023 5:55 PM EDT) Heparin UFH Level 0.39 IU/mL [facility] Comment: Heparin (anti-Xa) levels should [...] MD HEMATOLOGY ORDERAB LES Performing Organization Address [facility] Co de Phone Number [facility] [place] [address] * (ABNORMAL) Troponin (10/08/2023 5:55 PM EDT) Troponin-T HS 1,635(H) <=14 ng/L [facility] Comment: This patient's troponin T [...] troponin value can be found in the [facility] Laboratory Test Catalog Troponin - [facility] Laboratory Test Catalog Reference: Fourth [place] Definition of Myocardial Infarction. Journal of the [place] [employer] 2018;72:2912-4412 Blood 10/08/2023 5:55 PM EDT 10/08/2023 6:01 PM EDT Narrative Resulting Agency Comment Spec In Lab Rusty Ohara MD CHEMISTRY ORDERABL ES [facility] [place] [address] * Heparin (unfractionated) Level (10/08/2023 11:20 AM EDT) Heparin UFH Level 0.39 IU/mL [facility] Comment: Heparin (anti-Xa) levels should [...] Lab Rusty Ohara MD HEMATOLOGY ORDERAB LES [facility] [place] [address] * (ABNORMAL) Troponin (10/08/2023 11:20 AM EDT) Pathologist [facility] Troponin-T HS 1,632(H) <=14 ng/L [facility] Comment: This patient's troponin T [...] troponin value can be found in the [facility] Laboratory Test Catalog Troponin - [facility] Laboratory Test Catalog Reference: Fourth [place] Definition of Myocardial Infarction. Journal of the [place] [employer] 2018;72:7710-1064 Blood 10/08/2023 11:2 0 AM EDT 10/08/2023 11:28 AM EDT Narrative Resulting Agency Comment Spec In Lab Rusty Ohara MD CHEMISTRY ORDERABL ES Performing Organization Address City/[facility]/ZIP Co de Phone Number [facility] [place] [address] * Differential, Automated (10/08/2023 4:22 AM EDT) Neutrophils % 59.7 % [facility] Neutr Abs (ANC) 3.31 1.70 - 6.10 x10(3)/[facility] Lymphocytes % 26.8 % [facility] Lymphocytes Abs 1.5 0.9 - 3.2 x10(3)/[facility] Monocytes % 9.6 % [facility] Monocyte Abs 0.5 0.3 - 0.9 x10(3)/[facility] Eosinophils % 3.1 % [facility] Eosinophils Abs 0.2 0.0 - 0.4 x10(3)/[facility] Basophils % 0.4 % [facility] Basophils Abs 0.0 0.0 - 0.1 x10(3)/[facility] Immature Gran % 0.40 % [facility] Comment: Immature granulocytes(IG's)percentage and absolute count will include metamyelocytes, myelocytes, and promyelocytes. Blood smears from CBCs yielding IG's will be scanned manually for concordance. If this scan disagrees with the automated IG or if promyelocytes are noted, a manual differential will be performed. [place] Gran Abs 0.02 0.00 - 0.04 x10(3)/[facility] Blood 10/08/2023 4:22 AM EDT 10/08/2023 4:37 AM EDT Narrative Resulting Agency Comment Spec In Lab Margarita Ware MD HEMATOLOGY ORDERABLE S [facility] [place] [address] * (ABNORMAL) Hemogram (10/08/2023 4:22 AM EDT) WBC 5.5 4.0 - 9.5 x10(3)/[facility] RBC 4.00 4.00 - 5.21 x10(6)/[facility] Hemoglobin 9.9(L) 11.7 - 15.5 g/dL [facility] Hematocrit 32.7(L) 35.7 - 45.8 % [facility] MCV 81.8(L) 82.6 - 94.4 fL [facility] MCH 24.8(L) 27.1 - 32.0 pg [facility] MCHC 30.3(L) 31.7 - 35.0 g/dL [facility] Platelets 210 145 - 357 x10(3)/[facility] RDWSD 56.4(H) 37.0 - 46.0 fL [facility] RDWCV 19.9(H) 11.5 - 14.1 % [facility] MPV 10.6 7.6 - 12.9 [facility] nRBC % Auto 0.0 % [facility] nRBC Abs Auto 0.000 0.000 - 0.000 x10(3)/[facility] Blood 10/08/2023 4:22 AM EDT 10/08/2023 4:37 AM EDT Narrative Resulting Agency Comment Spec In Lab Margarita Ware MD HEMATOLOGY ORDERABLE S [facility] [place] [address] * Heparin (unfractionated) Level (10/08/2023 4:22 AM EDT) Heparin UFH Level 0.25 IU/mL [facility] Comment: Heparin (anti-Xa) levels should [...] MD HEMATOLOGY ORDERAB LES Performing Organization Address [facility] Co de Phone Number [facility] [place] [address] * Magnesium (10/08/2023 4:22 AM EDT) Magnesium 0.92 0.69 - 1.07 mmol/L [facility] Blood 10/08/2023 4:22 AM EDT 10/08/2023 4:37 AM EDT Narrative Resulting Agency Comment Spec In Lab Rusty Ohara MD CHEMISTRY ORDERABL ES Performing Organization Address [facility] de Phone Number [facility] [place] [address] * (ABNORMAL) Basic Metabolic Panel (non-fasting) (10/08/2023 4:22 AM EDT) Glucose Lvl 110 65 - 199 mg/dL [facility] Comment:Diabetes: >=200 mg/d L plus symptoms BUN 14 8 - 18 mg/dL [facility] Creatinine 1.22(H) 0.70 - 1.20 mg/dL [facility] Sodium 142 135 - 145 mmol/L [facility] Potassium 4.4 3.5 - 5.0 mmol/L [facility] Comment: Please note: ??Patients with WBC >100,000 may have falsely elevated Potassium levels. ??For accurate Potassium quantification in these patients send serum separator tube (gold top) for subsequent determinations. ??Contact the Clinical Chemistry Laboratory if there are any questions. Chloride 109(H) 98 - 107 mmol/L [facility] CO2 24 22 - 31 mmol/L [facility] Anion Gap 9 5 - 15 mmol/L [facility] Calcium 9.3 8.5 - 10.5 mg/dL [facility] Estimated GFR 45(L) >=60 mL/min/1. 73 m?? [facility] Comment: This patient's estimated GFR [...] Rusty Ohara MD CHEMISTRY ORDERABL ES [facility] [place] [address] * (ABNORMAL) Troponin (10/08/2023 4:22 AM EDT) Troponin-T HS 1,705(H) <=14 ng/L [facility] Comment: This patient's troponin T [...] troponin value can be found in the [facility] Laboratory Test Catalog Troponin - [facility] Laboratory Test Catalog Reference: Fourth [place] Definition of Myocardial Infarction. Journal of the [place] [employer] 2018;72:3793-6647 Blood 10/08/2023 4:22 AM EDT 10/08/2023 4:37 AM EDT Narrative Resulting Agency Comment Spec In Lab Rusty Ohara MD CHEMISTRY ORDERABL ES Performing Organization Address [facility] Co de Phone Number [facility] [place] [address] * Heparin (unfractionated) Level (10/07/2023 9:51 PM EDT) Heparin UFH Level 0.39 IU/mL [facility] Comment: Heparin (anti-Xa) levels should [...] MD HEMATOLOGY ORDERAB LES Performing Organization Address City/[facility]/ZIP Co de Phone Number [facility] [place] [address] * (ABNORMAL) Troponin (10/07/2023 5:52 PM EDT) Troponin-T HS 1,910(H) <=14 ng/L [facility] Comment: This patient's troponin T [...] troponin value can be found in the [facility] Laboratory Test Catalog Troponin - [facility] Laboratory Test Catalog Reference: Fourth [place] Definition of Myocardial Infarction. Journal of the [place] [employer] 2018;72:2110-2851 Blood 10/07/2023 5:52 PM EDT 10/07/2023 5:57 PM EDT Narrative Resulting Agency Comment Spec In Lab Rusty Ohara MD CHEMISTRY ORDERABL ES [facility] [place] [address] * Heparin (unfractionated) Level (10/07/2023 3:45 PM EDT) Heparin UFH Level 0.54 IU/mL [facility] Comment: Heparin (anti-Xa) levels should [...] MD HEMATOLOGY ORDERAB LES Performing Organization Address [facility] Co de Phone Number [facility] [place] [address] * EKG 12 Lead (10/07/2023 1:44 PM EDT) Ventricular rate 51 BPM MUSE SYSTEM Atrial Rate 51 BPM MUSE SYSTEM P-R Interval 158 ms MUSE SYSTEM QRS Duration 84 ms MUSE SYSTEM Q-T Interval 452 ms MUSE SYSTEM QTC Calculated (Bezet) 416 ms MUSE SYSTEM Calculated P [place] 73 degrees MUSE SYSTEM Calculated R [place] 2 degrees MUSE SYSTEM Calculated T [place] 60 degrees MUSE SYSTEM INTERPRETATION Sinus bradycardia Otherwise normal ECG When compared with ECG of 07-OCT-2023 01:41, No significant change was found Confirmed by MD Sevilla Katharine ([id number]) on 10/09/2023 6:32:35 AM MUSE SYSTEM 10/07/2023 1:44 PM EDT 10/09/2023 6:32 AM EDT Rusty Ohara MD ECG ORDERABLES Performing Organization Address [facility] de Phone Number MUSE SYSTEM * (ABNORMAL) Troponin (10/07/2023 10:48 AM EDT) Troponin-T HS 2,940(H) <=14 ng/L [facility] Comment: This patient's troponin T [...] troponin value can be found in the [facility] Laboratory Test Catalog Troponin - [facility] Laboratory Test Catalog Reference: Fourth [place] Definition of Myocardial Infarction. Journal of the [place] [employer] 2018;72:5278-9345 Blood 10/07/2023 10:4 8 AM EDT 10/07/2023 11:04 AM EDT Narrative Resulting Agency Comment Spec In Lab Rusty Ohara MD CHEMISTRY ORDERABL ES [facility] [place] [address] * Heparin (unfractionated) Level (10/07/2023 7:52 AM EDT) Heparin UFH Level 0.83 IU/mL [facility] Comment: Heparin (anti-Xa) levels should [...] Lab Rusty Ohara MD HEMATOLOGY ORDERAB LES [facility] [place] [address] * (ABNORMAL) Troponin (10/07/2023 3:28 AM EDT) Troponin-T HS 4,360(H) <=14 ng/L [facility] Comment: This patient's troponin T [...] troponin value can be found in the [facility] Laboratory Test Catalog Troponin - [facility] Laboratory Test Catalog Reference: Fourth [place] Definition of Myocardial Infarction. Journal of the [place] [employer] 2018;72:1860-2595 Blood 10/07/2023 3:28 AM EDT 10/07/2023 3:37 AM EDT Narrative Resulting Agency Comment Spec In Lab Rusty Ohara MD CHEMISTRY ORDERABL ES Performing Organization Address [facility] Co de Phone Number [facility] [place] [address] * EKG 12 Lead (10/07/2023 1:41 AM EDT) Ventricular rate 54 BPM MUSE SYSTEM Atrial Rate 54 BPM MUSE SYSTEM P-R Interval 182 ms MUSE SYSTEM QRS Duration 92 ms MUSE SYSTEM Q-T Interval 456 ms MUSE SYSTEM QTC Calculated (Bezet) 432 ms MUSE SYSTEM Calculated P [place] 66 degrees MUSE SYSTEM Calculated R [place] 14 degrees MUSE SYSTEM Calculated T [place] 50 degrees MUSE SYSTEM INTERPRETATION Sinus bradycardia Minimal voltage criteria for LVH, may be normal variant ( [place] product ) Borderline ECG When compared with ECG of 26-MAY-2006 11:49, No significant change was found Confirmed by MD Di, Nhi ([id number]) on 10/09/2023 6:32:29 AM MUSE SYSTEM 10/07/2023 1:41 AM EDT 10/09/2023 6:32 AM EDT Rusty Ohara MD ECG ORDERABLES Performing Organization Address [facility] Co de Phone Number MUSE SYSTEM * (ABNORMAL) D-Dimer, Quantitative (10/07/2023 12:33 AM EDT) Pathologist [facility] D-Dimer, Quant 606(H) 0 - 500 FEU ng/ml [facility] Comment: The D-Dimer assay is [...] MD HEMATOLOGY ORDERABLE S Performing Organization Address [facility] Co de Phone Number [facility] [place] [address] * (ABNORMAL) CRP, acute inflammation (10/07/2023 12:33 AM EDT) CRP 5.6(H) <=4.9 mg/L [facility] Blood Venous Draw / Unknown 10/07/2023 12:33 AM EDT 10/07/2023 12:42 AM EDT Narrative Resulting Agency Comment Spec In Lab Ariel Ware MD CHEMISTRY ORDERABLES [facility] [place] [address] * Differential, Automated (10/07/2023 12:33 AM EDT) Pathologist [facility] Neutrophils % 59.6 % [facility] Neutr Abs (ANC) 4.14 1.70 - 6.10 x10(3)/[facility] Lymphocytes % 30.0 % [facility] Lymphocytes Abs 2.1 0.9 - 3.2 x10(3)/[facility] Monocytes % 8.5 % [facility] Monocyte Abs 0.6 0.3 - 0.9 x10(3)/[facility] Eosinophils % 1.2 % [facility] Eosinophils Abs 0.1 0.0 - 0.4 x10(3)/[facility] Basophils % 0.3 % [facility] Basophils Abs 0.0 0.0 - 0.1 x10(3)/[facility] Immature Gran % 0.40 % [facility] Comment: Immature granulocytes(IG's)percentage and absolute count will include metamyelocytes, myelocytes, and promyelocytes. Blood smears from CBCs yielding IG's will be scanned manually for concordance. If this scan disagrees with the automated IG or if promyelocytes are noted, a manual differential will be performed. [place] Gran Abs 0.03 0.00 - 0.04 x10(3)/[facility] Blood 10/07/2023 12:3 3 AM EDT 10/07/2023 12:40 AM EDT Narrative Resulting Agency Comment Spec In Lab Margarita Ware MD HEMATOLOGY ORDERABLE S [facility] [place] [address] * (ABNORMAL) Hemogram (10/07/2023 12:33 AM EDT) WBC 6.9 4.0 - 9.5 x10(3)/[facility] RBC 3.93(L) 4.00 - 5.21 x10(6)/[facility] Hemoglobin 9.6(L) 11.7 - 15.5 g/dL [facility] Hematocrit 31.7(L) 35.7 - 45.8 % [facility] MCV 80.7(L) 82.6 - 94.4 [facility] MCH 24.4(L) 27.1 - 32.0 pg [facility] MCHC 30.3(L) 31.7 - 35.0 g/dL [facility] Platelets 239 145 - 357 x10(3)/[facility] RDWSD 53.0(H) 37.0 - 46.0 [facility] RDWCV 19.0(H) 11.5 - 14.1 % [facility] MPV 10.3 7.6 - 12.9 [facility] nRBC % Auto 0.0 % [facility] nRBC Abs Auto 0.000 0.000 - 0.000 x10(3)/[facility] Blood 10/07/2023 12:3 3 AM EDT 10/07/2023 12:40 AM EDT Narrative Resulting Agency Comment Spec In Lab Margarita Ware MD HEMATOLOGY ORDERABLE S [facility] [place] [address] * (ABNORMAL) Troponin (10/07/2023 12:33 AM EDT) Troponin-T HS 4,413(H) <=14 ng/L [facility] Comment: This patient's troponin T [...] troponin value can be found in the [facility] Laboratory Test Catalog Troponin - [facility] Laboratory Test Catalog Reference: Fourth [place] Definition of Myocardial Infarction. Journal of the [place] [employer] 2018;72:8778-9093 Blood 10/07/2023 12:3 3 AM EDT 10/07/2023 12:40 AM EDT Narrative Resulting Agency Comment Spec In Lab Rusty Ohara MD CHEMISTRY ORDERABL ES [facility] [place] [address] * (ABNORMAL) Hemoglobin A1c (10/07/2023 12:33 AM EDT) Hemoglobin A1C 5.9(H) 4.3 - 5.6 % [facility] Comment: Reference Range: 4.3 - [...] Mellitus, Diabetes Care 2013; 36: Suppl. 1, S6774 Est Avg Gluc See note mg/dL [facility] Comment: Estimated Average Glucose not appropriate for patients over 70 years of age. Blood 10/07/2023 12:3 3 AM EDT 10/07/2023 12:40 AM EDT Narrative Resulting Agency Comment Spec In Lab Rusty Ohara MD CHEMISTRY ORDERABL ES [facility] [place] [address] * Lipid Panel (Reflex Direct LDL) (10/07/2023 12:33 AM EDT) Chol, Total 128 mg/dL [facility] Comment: Desirable: ? <200 mg/dL Borderline High: 200-239 mg/dL Higher: ?>xq=803 mg/dL Triglycerides 80 mg/dL [facility] Comment: Normal: ?<150 mg/dL Borderline High: 150-199 mg/dL High: ?200-499 mg/dL Very High: ? >li=995 mg/dL HDL 57 mg/dL [facility] Comment: Females: High Risk: <50 mg/dL Males: High Risk: <40 mg/dL LDL Cholesterol 55 mg/dL [facility] Comment: Desirable: ? <100 mg/dL Above Desirable: 100-129 mg/dL Borderline High: 130-159 mg/dL High: ?160-189 mg/dL Very High: ? >xm=856 mg/dL Lipid Interpretation See Note [facility] Comment: It is important to [...] ACC/AHA Guidelines (most recently Allan et al. [facility] 03/15/22): For individuals with atherosclerotic cardiovascular disease (ASCVD)or LDL >jr=504 mg/dL, use a high-intensity statin (40-80 mg [...] MD CHEMISTRY ORDERABL ES Performing Organization Address [facility] Co de Phone Number [facility] [place] [address] * APTT (10/07/2023 12:33 AM EDT) PTT 37 25 - 37 sec [facility] Comment: The PTT is NOT appropriate for heparin monitoring. Use the Anti-Xa level for heparin monitoring (HEP UFH) or LMWH monitoring (HEP LMW). A PTT less than 37 seconds generally indicates adequate hemostasis. Blood 10/07/2023 12:3 3 AM EDT 10/07/2023 12:40 AM EDT Narrative Resulting Agency Comment Spec In Lab Rusty Ohara MD HEMATOLOGY ORDERAB LES Performing Organization Address [facility] Co de Phone Number [facility] [place] [address] * (ABNORMAL) Prothrombin Time (10/07/2023 12:33 AM EDT) PT 14.7(H) 9.4 - 12.5 sec [facility] INR 1.3 [facility] Comment: An INR <2.0 indicates [...] MD HEMATOLOGY ORDERAB LES Performing Organization Address [facility] Co de Phone Number [facility] [place] [address] * TSH (10/07/2023 12:33 AM EDT) TSH 1.30 0.27 - 4.20 mcIU/mL [facility] Comment: Reference Interval (mcIU/mL): Females: ??First Trimester: 0.23-3.88 ??Second Trimester: 0.22-3.90 ??Third Trimester: 0.44-4.66 Blood 10/07/2023 12:3 3 AM EDT 10/07/2023 12:40 AM EDT Narrative Resulting Agency Comment Spec In Lab Rusty Ohara MD CHEMISTRY ORDERABL ES Performing Organization Address [facility] Co de Phone Number [facility] [place] [address] * Phosphorus (10/07/2023 12:33 AM EDT) Phosphorus 3.2 2.5 - 4.5 mg/dL [facility] Blood 10/07/2023 12:3 3 AM EDT 10/07/2023 12:40 AM EDT Narrative Resulting Agency Comment Spec In Lab Rusty Ohara MD CHEMISTRY ORDERABL ES Performing Organization Address [facility] Co de Phone Number [facility] [place] [address] * Magnesium (10/07/2023 12:33 AM EDT) Magnesium 0.88 0.69 - 1.07 mmol/L [facility] Blood 10/07/2023 12:3 3 AM EDT 10/07/2023 12:40 AM EDT Narrative Resulting Agency Comment Spec In Lab Rusty Ohara MD CHEMISTRY ORDERABL ES Performing Organization Address [facility] Co de Phone Number [facility] [place] [address] * Calcium (10/07/2023 12:33 AM EDT) Calcium 8.8 8.5 - 10.5 mg/dL [facility] Blood 10/07/2023 12:3 3 AM EDT 10/07/2023 12:40 AM EDT Narrative Resulting Agency Comment Spec In Lab Rusty Ohara MD CHEMISTRY ORDERABL ES [facility] [place] [address] * (ABNORMAL) Basic Metabolic Panel (non-fasting) (10/07/2023 12:33 AM EDT) Glucose Lvl 112 65 - 199 mg/dL [facility] Comment:Diabetes: >=200 mg/d L plus symptoms BUN 20(H) 8 - 18 mg/dL [facility] Creatinine 1.24(H) 0.70 - 1.20 mg/dL [facility] Sodium 141 135 - 145 mmol/L [facility] Potassium 3.7 3.5 - 5.0 mmol/L [facility] Comment: Please note: ??Patients with WBC >100,000 may have falsely elevated Potassium levels. ??For accurate Potassium quantification in these patients send serum separator tube (gold top) for subsequent determinations. ??Contact the Clinical Chemistry Laboratory if there are any questions. Chloride 106 98 - 107 mmol/L [facility] CO2 23 22 - 31 mmol/L [facility] Anion Gap 12 5 - 15 mmol/L [facility] Calcium 8.8 8.5 - 10.5 mg/dL [facility] Estimated GFR 44(L) >=60 mL/min/1. 73 m?? [facility] Comment: This patient's estimated GFR [...] Rusty Ohara MD CHEMISTRY ORDERABL ES [facility] [place] [address] documented in this encounter Visit Diagnoses Not on filedocumented in this encounter Admitting Diagnoses Diagnosis Hypertensive [...] Given 10/09/2023 8:44 PM EDT 650 mg atorvastatin (Lipitor) tablet 80 mg 80 [...] AM EDT 10 mg carvediloL (Coreg) tablet 25 mg 25 mg, Oral, 2 TIMES DAILY WITH MEALS, First dose (after last modification) on Mon10/11/23 at 1700, Until Discontinued, Routine empagliflozin (Jardiance) tablet 10 mg 10 mg, [...] Given 10/10/2023 12:17 PM EDT 10 mg fentaNYL (pf) (50 mcg/mL) multi-dose injection PRN, Starting on Mon10/09/23 at 1347, Until Mon10/09/23 at 1532, Intra-Operative (Intra-Procedure), Routine Given 10/09/2023 1:47 PM EDT 12.5 mcg hydrALAZINE (Apresoline) (20 mg/mL) injection PRN, Starting on Mon10/09/23 at 1442, Until Mon10/09/23 at 1532, Intra-Operative (Intra-Procedure) Given 10/09/2023 2:42 PM EDT 10 mg lactulose (Chronulac) (0.67 gram/mL) oral liquid [...] Given 10/09/2023 8:28 AM EDT 400 mg midazolam (pf) (Versed) (1 mg/mL) multi-dose injection PRN, Starting on Mon10/09/23 at 1349, Until Mon10/09/23 at 1532, Intra-Operative (Intra-Procedure), Routine Given 10/09/2023 1:53 PM EDT 0.5 mg Given 10/09/2023 1:47 PM EDT 0.5 mg nitroGLYcerin (Nitrostat) disintegrating tablet 0.4 mg 0.4 [...] Given 10/10/2023 11:06 PM EDT 17 g rivaroxaban (Xarelto) tablet 10 mg 10 mg, Oral, DAILY, First dose on 10/10/23 at 1330, Until Discontinued, Routine, rivaroxabain (Xarelto) Indication: DVT or PE, Chronic/Long-term (Secondary Prevention) Given 10/11/2023 9:03 AM EDT 10 mg Given 10/10/2023 1:56 PM EDT 10 mg spironolactone (Aldactone) tablet 25 mg 25 mg, Oral, DAILY, First dose on Tu10/10/23 at 1145, Until Discontinued, DO NOT SPLIT, [...] Carroll RN) 0903 (Given - Provider: Rafaela Carroll, LOIS) atorvastatin (Lipitor) tablet 80 mg 80 mg, Oral, EVERY EVENING, First dose on 10/07/23 at 1700, Until Discontinued, Routine 1332 (AUG Hold - Provider: Admin Adt - Reason: Transfer to a Procedural area)1532 (AUG Unhold - Provider: Admin Adt)1659 (Given - Provider: Alcira Calles RN) 1654 (Given - Provider: Rafaela Carroll RN) carvediloL (Coreg) tablet 12.5 mg (CANCELED) 12.5 mg, Oral, 2 TIMES DAILY WITH MEALS, First dose (after last modification) on Mon10/09/23 at 1745, Until Discontinued, Routine 1658 (Given - Provider: Alcira Calles RN) 0849 (Given - Provider: Rafaela Carroll RN)1653 (Given - Provider: Rafaela Carroll RN) 902 (Given - Provider: Rafaela Carroll RN) carvediloL (Coreg) tablet 25 mg 25 mg, Oral, 2 TIMES DAILY WITH MEALS, First dose (after last modification) on Mon10/11/23 at 1700, Until Discontinued, Routine carvediloL (Coreg) tablet 3.125 mg (CANCELED) 3.125 mg, Oral, 2 TIMES DAILY WITH MEALS, First dose on Mon10/07/23 at 0945, Until Discontinued, Routine 08 (Given - Provider: Alcira Calles RN) empagliflozin [...] 1745, Until Discontinued, Take with Food, Routine 1658 (Given - Provider: Alcira Calles RN)2043 (Given - Provider: Stef Bang RN) 0850 (Given - Provider: Rafaela Carroll RN) losartan (Cozaar) tablet 25 mg 25 mg, Oral, DAILY, First dose on Mon10/10/23 at 1700, Until Discontinued, Routine 1654 (Given - Provider: Rafaela Carroll RN) 0903 [...] OPEN, Routine 1217 (Given - Provider: Rafaela C Glen, RN) 0903 (Given - Provider: Rafaela Carroll [...] (Intra-Procedure), Routine 1347 (Given - Provider: Christian Silva, RN)1353 (Given - Provider: Cheyenne Jacobson RN) nitroGLYcerin (Nitrostat) disintegrating tablet 0.4 mg 0.4 mg, Sublingual, EVERY 5 MIN PRN, Starting on 10/07/23 at 0009, Until 10/11/23 at 1843, Chest pain, May repeat every [...] Units/hr (0-100 mL/hr), Intravenous, CONTINUOUS, Starting on Mon10/07/23 at 0215, Until Mon10/09/23 at 1627, Begin [...] Routine documented in this encounter Care Teams Manager Continuous Improvement Relationship Specialty Start Date End Date Dulce Hidalgo MD [facility] [address] [place] [address] PCP - General Family Medicine 09/30/16 documented as of this encounter
--- OUTSIDE RECORDS SUMMARY | 2024-01-11 13:17 | XMS_ITS | Encounter Summary ---
[place] [address] Care Team Providers Care Casino Investigator Name Role Phone Dulce Hidalgo MD Primary Care Provider [phone] Reason for Referral * Consultation (Routine) - Closed Specialty Diagnoses / Procedures Referred By Christal lainez Referred To Contact Orthopaedics Diagnoses Chronic pain of both knees Bilateral hip pain Rafaela Alonzo APRN [facility] [place] [address] Orthopaedics, Four [address] [place] [address] Referral ID Status Reason Start Date Expiration Date V isits Requested Visits Authorized [id number] Closed Consult, Test & Treat 03/09/2023 09/05/2023 1 1 Encounter Details Date Type Department Care Team (Latest Contact Info) Description 03/09/2023 10:00 AM EDT TH Visit (TeleHealth) [facility] [place] [address] Rafaela Alonzo APRN [facility] [place] [address] Compression fracture of L5 vertebra with routine healing; Spondylolisthesis at L4-L5 level; Spondylolisthesis at L3-L4 level; Left lumbar radiculopathy; Right lumbar radiculopathy; Chronic pain of both knees; Bilateral hip pain; Osteopenia of lumbar spine Social History Tobacco Use Types Packs/Day Years Used Date Smoking Tobacco: Never Smokeless Tobacco: Never Alcohol Use Standard Drinks/Week Comments No 0 (1 standard drink = 0.6 oz pur e alcohol) Sex and Gender Information Value Date Recorded Sex Assigned at Not on file Gender Identity Not on file Sexual Orientation Not on file documented as of this encounter Progress Notes * Rafaela Alonzo, STATISTICAL ENGINEER - 03/09/2023 10:00 AM EDT [facility] Tele[facility]icine Visit Medical Decision Making: Isaura Aguiar is a pleasant 82 y.o. female seen today for a chief complaint of left greater than right lower extremity radicular pain. She had partial improvement after an L5-S1 epidural steroid injection with more robust improvement on the right. Her predominant complaint is left lower extremity radicular type pain and she does ponder whether or not some of her symptoms could be emanating from her knee prosthetics which have been present for 10 to 20 years versus some degenerative hip changes. I am most suspicious that her symptoms are associated with the L4-5 severe central canal stenosis which is also likely generating the sense of weakness of the lower extremities. We did discuss that it would not be unreasonable to have a surgical consult but again, I do have some concerns regarding her cardiac history being a significant risk factor along with her overall weight and a BMI of 50. However, the degree of stenosis at L4-5 is quite significant and likely the greatest contributor to her symptoms at this point. We did discuss that she is soon to have a repeat echo and evaluation with cardiology and I certainly would like to see an updated echo and cardiac evaluation prior to making a definitive decision and the patient is also somewhat hesitant to jump into additional procedures until she has a cardiology evaluation. Therefore, we will move forward at this point with a referral to orthopedics to evaluate the stability of her remote knee prosthetics as well as get an updated DEXA scan as her last DEXA was ~2011 which demonstrated osteopenia. We also briefly discussed that it would not be unreasonable to trial a repeat epidural steroid injection with a more focused approach to the left side but the patient did find the last injection to be uncomfortable as far as the positioning for the procedure and is somewhat hesitant to move forward with this at this time. Ultimately, we all agreed on holding off until her cardiac evaluation and the updated DEXA is completed. Diagnosis: ICD-10-CM 1. Compression fracture of L5 vertebra with routine healing S32.050D 2. Spondylolisthesis at L4-L5 level M43.16 3. Spondylolisthesis at L3-L4 level M43.16 4. Left lumbar radiculopathy M54.16 5. Right lumbar radiculopathy M54.16 6. Chronic pain of both knees M25.561 Referral to Orthopaedics M25.562 G89.29 7. Bilateral hip pain M25.551 Referral to Orthopaedics M25.552 8. Osteopenia of lumbar spine M85.88 DXA Central Spine, Hip, and/or Whole Body (Generic) Plan Formal evaluation with general orthopedics at [facility] for question of loose bilateral knee prosthetics versus hip OA as contributing factors to her lower extremity complaints DEXA Follow-up with me when the above is completed HPI: Isaura Aguiar is a 82 y.o. female last seen by me on 12/29/2022 for evaluation of a chief complaint of predominantly lower extremity radicular pain on the right greater than the left likely associated with central canal stenosis at L4-5 in the setting of a spondylolisthesis. While she was noted to have a compression fracture of L4 and L5, these did not appear to be a significant pain generator. Given that she felt as though her lower extremity symptoms were the most significant issue, I recommended moving forward with an epidural steroid injection to see if this could mitigate her pain. Mari briefly discussed the role of surgical intervention secondary to the degree of stenosis in the setting of a spondylolisthesis but because of her significant cardiac history I counseled the patient that she was not currently a surgical candidate because of her multiple comorbidities. My recommendation was to continue conservative nonoperative management. She ultimately agreed to a trial of interventional injection therapy and I am following up with her today to discuss her response. The patient was seen by Dr. Lynne Bustillo MD on 02/17/2023 where she received an L5-S1 epidural steroid injection as it was felt that the L4-5 level was too stenotic for direct injection. The patient reports she had some partial improvement after the injection more significantly on the right than theleft which is the most bothersome side. She does feel a progressive sense of weakness with standingand walking and feels that she can only stand and walk for approximately 10 to 15 minutes before the weakness progresses and she needs to sit down. She does have a reduced intensity of pain and reports that when she is in a seated position she has minimal discomfort but when she stands, her pain can go to a 3-4/10. The longer that she stands, the higher her pain can go. ROS A five point review of systems was completed today and, of note, pertinent positive and negatives are indicated in the HPI. reports that she has never smoked. She has never used smokeless tobacco. Conservative Treatment: Physical Therapy: She has had 6 to 8 weeks of physical therapy-both land and aquatic Home Exercise Program: She performs daily as tolerated Medications: Acetaminophen: Yes Helpful? Yes Injections: L5-S1 SADIE (02/17/2023)-good improvement on the right, minimal improvement on the left Physical Examination: Pain: 0-4 The patient speaks fluidly and there are no sounds of distress Imaging and Test Review: No new imaging studies were ordered for review today CC: Dulce Hidalgo MD Referring Provider: Alex Alonzo APRN 03/09/2023 [facility] documented in this encounter Plan of Treatment Scheduled Referrals Name Type Priority Associated Diagnoses Order Schedule Referral to Orthopaedics Outpatient Referral Routine Chronic pain of both knees Bilateral hip pain Ordered: 03/09/2023 documented as of this encounter Visit Diagnoses Diagnosis Compression fracture of L5 vertebra with routine healing Spondylolisthesis at L4-L5 level Spondylolisthesis at L3-L4 level Left lumbar radiculopathy Thoracic or lumbosacral neuritis or radiculitis, unspecified Right lumbar radiculopathy Thoracic or lumbosacral neuritis or radiculitis, unspecified Chronic pain of both knees Bilateral hip pain Pain in joint, pelvic region and thigh Osteopenia of lumbar spine documented in this encounter Care Teams Casino Investigator Relationship Specialty Start Date End Date Dulce Hidalgo MD [address] [place] [address] PCP - General Family Medicine 09/30/16 documented as of this encounter
--- OUTSIDE RECORDS SUMMARY | 2024-01-11 13:17 | XMS_ITS | Encounter Summary ---
Author Organization [facility] [place] [address] Care Team Providers Care Chip Tester Name Role Phone Dulce Hidalgo MD Primary Care Provider [phone] Encounter Details Date Type Department Care Team (Late st Contact Info) Description 10/06/2023 External [place] [id number] Social History Tobacco Use Types Packs/Day Years [...] Procedure Name Priority Date/Time Associated Diagnosis Comments ECG SCAN Routine 10/06/2023 4:13 PM EDT documented in this encounter Results * Scan Doc: ECG (10/06/2023 4:13 PM EDT) Historical Provider MD ACHARYA MGR SCAN EX T ORDR/RSLT documented in this encounter Visit Diagnoses Not on filedocumented in this encounter Care Teams Chip Tester Relationship Specialty Start Date End Date Dulce Hidalgo MD [address] [place] [address] PCP - General Family Medicine 09/30/16 documented as of this encounter
--- OUTSIDE RECORDS SUMMARY | 2024-01-11 13:17 | XMS_ITS | Encounter Summary ---
Author Organization [facility] Address [facility] [place] [address] Care Team Providers Care Insulation Estimator Name Role Phone Dulce Hidalgo MD Primary Care Provider [phone] Encounter Details Date Type Department Care Team (Late st Contact Info) Description 10/23/2023 10:00 AM EDT Office Visit Cardiology at [address] [phone] Taqueria Garcia MD [facility] [place] [address] Hypertensive crisis, unspecified Social History Tobacco Use Types Packs/Day Years Used Date Smoking Tobacco: Never Smokeless Tobacco: Never Alcohol Use Standard Drinks/Week Comments No 0 (1 standard drink = 0.6 oz pur e alcohol) [facility] Utilities Answer Date Recorded In the past 12 months has [employer] electric, gas, oil, or water company threatened [...] place to sleep or slept in a jail (including now)? No 10/10/2023 DH IPV Inpatient [...] Sign Reading Time Taken Comments Blood Pressure 138/69 10/23/2023 10:01 AM EDT Pulse 64 10/23/2023 10:01 AM EDT Temperature - - Respiratory Rate - - Oxygen Saturation 96% 10/23/2023 10:01 AM EDT Inhaled Oxygen Concentration - - Weight 116.6 kg (257 lb) 10/23/2023 10:01 AM EDT Height 152.4 cm (5') 10/23/2023 10:01 AM EDT Body Mass Index 50.19 10/23/2023 10:01 AM EDT documented in this encounter Progress Notes * Taqueria Garcia MD - 10/23/2023 10:00 AM EDT Images from the original note were not included. [facility] [place] [address] [address] Cardiology Clinic Follow Up Visit PRIMARY CARE PROVIDER: Dulce Hidalgo MD REFERRING PROVIDER: Dulce Hidalgo Subjective: Reason for Heart Disease Clinic Visit: post discharge follow up HPI: Isaura Aguiar is a 82 y.o. 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 CKD Hx of breast and ovarian cancers BRCA2 positive Overview Note: 2040 in BRCA2. She has had bilateral mastectomies and bilateral oophorectomies. Subjective: Patient symptoms at the time of admission were reported as bandlike chest pressure around her upperchest. Since discharge from the hospital patient denies any recurrence of her cardiac symptoms. Shekeeps a log of her blood pressure at home and reports mainly blood pressure less than 150-140 mmhg systolic BP. She is compliant with her 3 new medications since discharge that are losartan 25 mg daily, spironolactone 25 mg daily as well as carvedilol 25 mg twice daily. Overall does not have any specific complaint and doing relatively well. She has question regarding her renal function given she only has left kidney. Her historical creatinine has been in the 1.3-1.5 range. Her most recent labs from 10/20/23 shows creatinine of 1.7 and GFR of 30. 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 Medications: Current Outpatient Medications Medication Sig Note Dispense Refill atorvastatin (Lipitor) 80 mg tablet Take 1 tablet by mouth every evening. 90 tablet 3 carvediloL (Coreg) 25 mg tablet Take 1 tablet by mouth 2 times daily (with meals). 90 tablet 3 losartan (Cozaar) 25 mg tablet Take 1 tablet by mouth daily. 90 tablet 3 spironolactone (Aldactone) 25 mg tablet Take 1 tablet by mouth daily. 90 tablet 3 Jardiance 10 mg tablet Take 10 mg by mouth daily. ondansetron (Zofran) 4 mg tablet Take 4 mg by mouth as needed. furosemide (Lasix) 20 mg tablet Take 40 mg by mouth daily. meclizine (Antivert) 12.5 mg tablet Take 12.5 mg by mouth 3 times daily as needed. 10/25/2022: Patient states she hasn't taken it in about 1 month cetirizine (ZyrTEC) 10 mg Tablet Take 10 mg by mouth as needed. rivaroxaban (Xarelto) 15 mg Tablet Take 10 mg by mouth daily. PROCHLORPERAZINE MALEATE (COMPAZINE ORAL) Take by mouth as needed. LORazepam (ATIVAN) 0.5 mg Tablet take 1 tablet by mouth ONE HOUR PRIOR TO PET SCAN,MAY REPEAT AT TIME OF SCAN if needed 04/12/2017: Received from: External Pharmacy 0 omeprazole (PRILOSEC) 10 mg Capsule, Delayed [...] 2 tablets every 6 hrs as needed* Objective: Vitals: Vitals: 10/23/23 1001 BP: 138/69 BP Location (NB): Left arm Patient Position: Sitting BP Cuff Sizes: Adult (25-34 cm) Pulse: 64 SpO2: 96% Weight: 116.6 kg (257 lb) Height: 152.4 cm (5') Physical Exam: General: Pleasant elderly woman no acute distress, accompanied by her CV: Normal rate, regular rhythm, no murmurs, RESP: CTAB, no wheezing or crackles GI: Soft, Not distended, non tender to palpation EXT: No lower extremities edema B/L , distal pulses palpable NEURO: No gross focal deficits Access sites Right radial: Well-healed, no bruising or signs of aneurysm Right femoral artery: Well-healed, no ecchymosis or other abnormal findings Diagnostics: TTE 10/07/2023 Limited echo performed by overnight fellow to [...] AR, TR, and PI. Procedure Limited - [id number]. Satisfactory quality. There is normal sinus rhythm. [...] abnormal. Left ventricular filling pressure is increased. Assessment and Plan: Isaura Aguiar is a 82 y.o. female Problems: Recent hospitalization at [facility] 10/06-10/10 with NSTEMI Type II in the setting of hypertensive urgency SBP> 200 mmHg - s/p cardiac cath with non obstructive CAD Hypertension -Continue current regiment of losartan 25 mg daily, spironolactone 25 mg daily, carvedilol 25 mg twice daily -Continue furosemide 20 mg daily that has been a chronic medication for the patient patient even before her most recent admission -Renal function should be monitored by PCP. I suspect her renal function oscillates between a creatinine of 1.3-1.5. Myalgia Patient was started on atorvastatin 80 mg daily upon hospital discharge. 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 CKD Hx of breast and ovarian cancers BRCA2 positive Overview Note: 2040 [place] in BRCA2. She has had bilateral mastectomies and bilateral oophorectomies. Patient is to establish cardiac care close to her living area. She she states that she will ask herprimary care to refer her to a buffing machine operator semiautomatic that she used to see in the past. Taqueria Garcia MD ,M.Sc Structural Heart Disease Fellow Pager: [phone] A shared decision making discussion was completed with Isaura Aguiar including an overview of the risks and benefits of all treatment options. Careful consideration of their goals, values, and preferences were included in the discussion. documented in this encounter Plan of Treatment Not on file documented as of this encounter Visit Diagnoses Diagnosis Hypertensive crisis, unspecified documented in this encounter Care Teams Insulation Estimator Relationship Specialty Start Date End Date Gwen, Dulce C, MD [address] [place] [address] [place] [address] PCP - General Family Medicine 09/30/16 documented as of this encounter
--- OUTSIDE RECORDS SUMMARY | 2024-01-11 13:17 | XMS_ITS | Encounter Summary ---
[place] [address] Care Team Providers Care Pizza Chef Name Role Phone Dulce Hidalgo MD Primary Care Provider [phone] Encounter Details Date Type Department Care Team (Late st Contact Info) Description 10/06/2023 Telephone Cardiology at [address] [phone] Kavon Bush MD [facility] [place] [address] Social History Tobacco Use Types Packs/Day Years Used Date Smoking Tobacco: Never Smokeless Tobacco: Never Alcohol Use Standard Drinks/Week Comments No 0 (1 standard drink = 0.6 oz pur e alcohol) [facility] Inpatient Questions Answer Date Recorded Does [...] encounter Miscellaneous Notes * Telephone Encounter - Kavon Bush MD - 10/06/2023 4:23 PM EDT Telephone Triage Note Initial Contact Date: 10/06/23 Initial Contact Time: 1620 Patient Location: [facility] ED Presenting Symptoms per OSH: 82 year old female, 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 About 1-2 hours later (45 minutes prior to current presentation), she was walking from car to house, about 150 feet in distance, when she experienced new onset shortness of breath and band-like chest pain radiating to bilateral sh oulders, so she decided to present to the emergency department for further evaluation. Initial vital signs - BP 220/110, HR 65, saturating well on room air. Was given sublingual nitroglycerin withoutimprovement, so she was started on nitroglycerin infusion (50 mcg) with slight improvement in symptoms (severe - > moderate). Most recent SBP 173/55. EKG shows sinus rhythm with minimal ST changes. WBC normal, Hgb 10.7 (baseline), Plt 268 Na 142, K 3.8, Cl 106, HCO3 27, BUN 23, Cr 1.4 (baseline), eGFR 48 NT pro-BNP 1300, Trop 64 CXR: interstitial edema Bedside echo: LVEF 30-35% with WMA in lateral lemons, no evidence of dissection in the aortic outflow tract Previously pt had transthoracic echocardiogram showing normal ejection fraction (60%) without wall motion abnormality, as of 04/2023 Pertinent Diagnostic Findings: See above OSH Interventions: See above Plan: -Per OSH provider, low suspicion for dissection especially given equal pulses and BP bilaterally; given his hesitancy for CTA in light of renal function, advised to check d-dimer -Serial EKG and troponins -Though the presentation could represent hypertensive emergency, given new LV dysfunction and WMA on echo, will treat as type I NSTEMI -No heparin for now given she took her dose of Xarelto today -Will load with ASA 324 mg, hold off on Plavix given evidence of multivessel coronary calcificationupon review of recent CT in our system - will reconsider if any changes in clinical status -Agree with nitro gtt for BP management, with reduction of no more than 25% for the first 24 hours -Accept to [facility] step-down unit for further management Above recommendations/plans are based on my conversation with the referring provider. I have not personally interviewed or examined this patient. Kavon Bush MD Fleet Mechanic documented in this encounter Plan of Treatment Not on file documented as of this encounter Visit Diagnoses Not on filedocumented in this encounter Care Teams Pizza Chef Relationship Specialty Start Date End Date Dulce Hidalgo MD [facility] [address] [place] [address] PCP - General Family Medicine 09/30/16 documented as of this encounter
--- OUTSIDE RECORDS SUMMARY | 2024-01-11 13:18 | XMS_ITS | Encounter Summary ---
Author Organization [facility] [place] [address] Care Team Providers Care [employer] Name Role Phone Dulce Hidalgo MD Primary Care Provider [phone] Reason for Visit * Auth/Cert Specialty Diagnoses / Procedures Referred By Christal lainez Referred To Contact Diagnoses EGD and Colonoscopy Sedation: Anesthesia TImeframe: within 3 Weeks -- B. Indication: RAMEZ This procedure should be performed with: Any Endoscopist Procedures PRO UPPER GI ENDOSCOPY, DIAGNOSTIC PRO COLONOSCOPY, DIAGNOSTIC EGD, UPPER GI ENDOSCOPY COLONOSCOPY, DIAGNOSTIC Referral ID Status Reason Start Date Expiration Date Visits Re quested Visits Authorized [id number] 1 1 Encounter Details Date Type Department Care Team (Late st Contact Info) Description 09/30/2021 1:45 PM EDT - 09/30/2021 2:45 PM EDT [place] [address] Clive Figueroa MD [facility] [address] EGD,WITH DILATION ESOPHAGUS WITH BALLOON,< 30 MM (WRVU 2.67) Social History Tobacco Use Types Packs/Day Years [...] Sign Reading Time Taken Comments Blood Pressure 115/34 09/30/2021 2:40 PM EDT Pulse 60 09/30/2021 12:59 PM EDT Temperature 37 ??C (98.6 ??F) 09/30/2021 12:59 PM EDT Respiratory Rate 20 09/30/2021 2:40 PM EDT Oxygen Saturation 100% 09/30/2021 2:45 PM EDT Inhaled Oxygen Concentration - - Weight 122.9 kg (271 lb) 09/30/2021 12:59 PM EDT Height 152.4 cm (5') 09/30/2021 12:59 PM EDT Body Mass Index 52.93 09/30/2021 12:59 PM EDT documented in this encounter Discharge Instructions * Discharge Instructions* Kyra Hobbs RN - 09/30/2021 2:41 PM EDT Colonoscopy: What to Expect at Home Your Recovery Your doctor will talk to you about when you will need your next colonoscopy. Your doctor can help you decide how often you need to be checked. This will depend on the results of your test and your risk for colorectal cancer. After the test, you may be bloated or have gas pains. You may need to pass gas. If a biopsy was done or a polyp was removed, you may have streaks of blood in your stool (feces) for a few days. Problems such as heavy rectal bleeding may not occur until several weeks after the test. This isn't common. But it can happen after polyps are removed. This care sheet gives you a general idea about how long it will take for you to recover. But each person recovers at a different pace. Follow the steps below to get better as quickly as possible. How can you care for yourself at home? Activity Rest when you feel tired. You can do your normal activities when it feels okay to do so. Diet Follow your doctor's directions for eating. Unless your doctor has told you not to, drink plenty of fluids. This helps to replace the fluids that were lost during the colon prep. Do not drink alcohol. Medicines Your doctor will tell you if and when you can restart your medicines. He or she will also give you instructions about taking any new medicines. If you take blood thinners, such as warfarin (Coumadin), clopidogrel (Plavix), or aspirin, be sure to talk to your doctor. He or she will tell you if and when to start taking those medicines again. Make sure that you understand exactly what your doctor wants you to do. If polyps were removed or a biopsy was done during the test, your doctor may tell you not to take aspirin or other anti-inflammatory medicines for a few days. These include ibuprofen (Advil, Motrin) and naproxen (Aleve). Other instructions For your safety, do not drive or operate machinery until the medicine wears off and you can think clearly. Your doctor may tell you not to drive or operate machinery until the day after your test. Do not sign legal documents or make major decisions until the medicine wears off and you can think clearly. The anesthesia can make it hard for you to fully understand what you are agreeing to. Additional Information for Sedation Patients For patients who received sedation: You may have received medications before and/or during your procedure which effects your judgement and reaction time. Do not drive, operate machinery, drink alcoholic beverages or make important decisions for 24 hours. Be careful on stairs as you may be unsteady on your feet. You may eat a regular diet as tolerated. Do not smoke if you are alone. IV site: Slight redness or tenderness is normal, you can use a warm compress if you would like. If tenderness and/or redness increase or if foul drainage occurs, please contact your Doctor. Please call [phone] before 8pm Mon-Fri with problems, questions or concerns. If you call after 8pm or on weekends, call the Hospital at [phone] and ask to speak to the Vice Principal concert pianist and the automatic serging machine operator will contact that person for you. When should you call for help? Call [phone] anytime you think you may need emergency care. For example, call if: You passed out (lost consciousness). You pass maroon or bloody stools. You have trouble breathing. Call your doctor now or seek immediate medical care if: You have pain that does not get better after you take pain medicine. You are sick to your stomach or cannot drink fluids. You have new or worse belly pain. You have blood in your stools. You have a fever. You cannot pass stools or gas. Watch closely for changes in your health, and be sure to contact your doctor if you have any problems. Where can you learn more? [facility] View your After Visit Summary and more online at [email or web address] If you would like to provide feedback about your hospital experience, please call the Office of Patient and Family Relations at . If you have received this After Visit Summary in error, please immediately return it in person to the department, or notify the [facility] Privacy Office by calling toll free at between the hours of 8AM and 5PM to arrange for our retrieval of the documents at no cost to you. Content Version: 12.2 ?? 6218-4577 [employer]. Care instructions adapted under license by [facility]. If you have questions about a medical condition or this instruction, always ask your healthcare professional. [employer] disclaims any warranty or liability for your use of this information. Upper GI Endoscopy: What to Expect at Home Your Recovery You will be able to go home after your doctor or nurse checks to make sure you are not having any problems. You may have to stay overnight if you had treatment during the test. You may have a sore throat fora day or two after the test. This care sheet gives you a general idea about what to expect after the test. How can you care for yourself at home? Activity Rest when you feel tired. You can do your normal activities when it feels okay to do so. Diet Follow your doctor's directions for eating. Unless your doctor has told you not to, drink plenty of fluids. This helps to replace the fluids that were lost during the prep. Do not drink alcohol. Medicines Your doctor will tell you if and when you can restart your medicines. He or she will also give you instructions about taking any new medicines. If you take blood thinners, such as warfarin (Coumadin), clopidogrel (Plavix), or aspirin, be sure to talk to your doctor. He or she will tell you if and when to start taking those medicines again. Make sure that you understand exactly what your doctor wants you to do. If polyps were removed or a biopsy was done during the test, your doctor may tell you not to take aspirin or other anti-inflammatory medicines for a few days. These include ibuprofen (Advil, Motrin) and naproxen (Aleve). If you have a sore throat the day after the procedure, use an umpx-qts-jqjkvyu spray to numb your throat. Sucking on throat lozenges and gargling with warm salt water may also help relieve your symptoms. Other instructions For your safety, do not drive or operate machinery until the medicine wears off and you can think clearly. Your doctor may tell you not to drive or operate machinery until the day after your test. Do not sign legal documents or make major decisions until the medicine wears off and you can think clearly. The anesthesia can make it hard for you to fully understand what you are agreeing to. Additional Information for Sedation Patients For patients who received sedation: You may have received medications before and/or during your procedure which effects your judgement and reaction time. Do not drive, operate machinery, drink alcoholic beverages or make important decisions for 24 hours. Be careful on stairs as you may be unsteady on your feet. You may eat a regular diet as tolerated. Do not smoke if you are alone. IV site: Slight redness or tenderness is normal, you can use a warm compress if you would like. If tenderness and/or redness increase or if foul drainage occurs, please contact your Doctor. Please call [phone] before 8pm Mon-Fri with problems, questions or concerns. If you call after 8pm or on weekends, call the Hospital at [phone] and ask to speak to the Vice Principal concert pianist and the automatic serging machine operator will contact that person for you. When should you call for help? Call [phone] anytime you think you may need emergency care. For example, call if: You passed out (lost consciousness). You pass maroon or bloody stools. You have trouble breathing. Call your doctor now or seek immediate medical care if: You have pain that does not get better after you take pain medicine. You are sick to your stomach or cannot drink fluids. You have new or worse belly pain. You have blood in your stools. You have a fever. You cannot pass stools or gas. Watch closely for changes in your health, and be sure to contact your doctor if you have any problems. Where can you learn more? [facility] View your After Visit Summary and more online at [email or web address] If you would like to provide feedback about your hospital experience, please call the Office of Patient and Family Relations at . If you have received this After Visit Summary in error, please immediately return it in person to the department, or notify the [facility] Privacy Office by calling toll free at between the hours of 8AM and 5PM to arrange for our retrieval of the documents at no cost to you. Content Version: 12.2 ?? 3636-8426 [employer]. Care instructions adapted under license by [facility]. If you have questions about a medical condition or this instruction, always ask your healthcare professional. [employer] disclaims any warranty or liability for your use of this information. documented in this encounter Medications at Time of Discharge Medication Sig Dispensed Refills Start Date End Date cetirizine (ZyrTEC) 10 mg Tablet Take 10 [...] as needed magnesium oxide (MAG-OX) 400 mg TabletIndications:Metas tatic urothelial carcinoma Take 1 tablet by mouth daily. 30 tablet 2 01/03/2017 docusate sodium (COLACE) 100 mg Capsule Take 100 mg by mouth as needed. Calcium Carbonate-Vitamin D3 600 mg(1,500mg) -400 unit Tab Take 1 tablet by mouth daily. Reported on 01/03/2017 ACETAMINOPHEN (TYLENOL ORAL) Take 500 mg by mouth every 6 hours. *taking 2 tablets every 6 hrs as needed* 08/05/2010 atenolol (TENORMIN) 50 mg tablet Take 50 mg by mouth daily. 08/05/2010 10/11/2023 simvastatin (ZOCOR) 10 mg tablet Take 10 mg by mouth daily. 08/05/2010 10/11/2023 documented as of this encounter H&P Notes * Clive Figueroa MD - 09/30/2021 1:46 PM EDT Patient Name: Isaura Aguiar Patient Age: 80 y.o. Birthdate: 1940 Admit date: 09/30/2021 Attending Physician: Clive Figueroa MD Gastroenterology & Hepatology Pre-Procedure History and Physical Planned Procedure: EGD: Colonoscopy: Indication: anemia, on Xarelto for history of DVT/PE Patient Active Problem List Diagnosis Code ??? BRCA2 positive Z15.01, Z15.09 ??? Benign essential tremor G25.0 ??? Hypertension I10 ??? Breast cancer, stage 1 C50.919 ??? Stage III Ovarian cancer C56.9 ??? Osteopenia M85.80 ??? SK (seborrheic keratosis) L82.1 ??? AK (actinic keratosis) L57.0 ??? 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 IT band syndrome M76.30 ??? Renal mass N28.89 ??? 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 Metastatic urothelial carcinoma C79.10 ??? Neutropenia, drug-induced D70.2 ??? Dehydration E86.0 ??? Ventral hernia K43.9 Medications: Reviewed in EDH Allergies Allergen Reactions ??? Glucosamine-Chondroitn Sulf.Na Nausea Only Intense cramping too ??? Iv 3000 [Transparent Dressings] Rash Erythema, blisters ??? Sulfa (Sulfonamide Antibiotics) Other (See Comments) liver damage Social History/Family History: Reviewed in EDH. No changes Exam: Patient Vitals for the past 24 hrs: Temp Pulse Resp BP SpO2 O2 Device 09/30/21 1259 37 ??C (98.6 ??F) 60 22 158/56 98 % RA GEN: NAD, AAOX3 HEENT: NC/AT dryMM, anicteric Chest: CTAB Heart: RRR, nl s1, s2 Abdomen: normal bowel sounds, soft, non tender Assessment and Plan: Proceed with EGD: Colonoscopy: ASA Grade: ASA 3 - Patient with moderate systemic disease with functional limitations Mallampati: II (soft palate, uvula, fauces visible) Sedation plan: MAC Risks and benefits of the procedure were discussed with the patient. Risks discussed including bleeding, infection, reaction to anesthesia, perforation or other intraabdominal trauma, pancreatitis (if applicable), missing a cancer (if applicable) and/or other unforseen complication. Informed Consent signed by patient (or safety representative). documented in this encounter Plan of Treatment Not on file documented as of this encounter Procedures Procedure Name Priority Date/Time Associated Diagnosis Comments SURGICAL PATHOLOGY REPORT Routine 09/30/2021 2:31 PM EDT SPECIMEN TO PATHOLOGY Routine 09/30/2021 2:31 PM EDT SPECIMEN TO PATHOLOGY Routine 09/30/2021 2:31 PM EDT Colonoscopy, Yvette Lui, Cory ([id number]) 09/30/2021 1:47 PM EDT EGD and Colonoscopy Sedation: Anesthesia TImeframe: within 3 Weeks -- B. Indication: RAMEZ This procedure should be performed with: Any Endoscopist Up Gi Endoscopy, Raul Adams, 30Mm ([id number]) 09/30/2021 1:47 PM EDT EGD and Colonoscopy Sedation: Anesthesia TImeframe: within 3 Weeks -- B. Indication: RAMEZ This procedure should be performed with: Any Endoscopist UPPER GI ENDOSCOPY Routine 09/30/2021 1: 27 PM EDT COLONOSCOPY Routine 09/30/2021 1:26 PM EDT documented in this encounter Results * Surgical Pathology Report (09/30/2021 2:31 PM EDT) FINAL DIAGNOSIS (AP) [id number] ? Location: 4T; EA10; A The signing pathologist has (i) examined the relevant preparation(s) for the specimen(s) and (ii) rendered or confirmed the diagnosis(es). . ?Surgical Pathology DIAGNOSIS A - Polyps x 4 ascending colon, resection: - ??Fragments of tubular adenoma. B - Descending colon polyp, resection: - ??Colonic mucosa, negative for diagnostic abnormality. CR-PX Electronically signed by: ?Tyree Park MD Verified: ??10/04/2021 13:50 ??Pathologist Performed at: ??-[facility] Dept. of Pathology, [place], [place] SPECIMEN(S) SUBMITTED A - Polyps x 4 ascending colon, resection (4) B - Descending colon polyp, resection (1) CLINICAL INFORMATION Anemia SPECIMEN PROCESSING A - Labeled/Fixativ e: Polyps x4 ascending colon, formalin. Quantity/Size: Four, 0.1-0.4 cm. Tissue Description: Partially flattened pink to red-valencia polypoid mucosal tissues and admixed yellow-green debris. Sections/Proces sing: Submitted en toto ??in 1 cassette labeled A1. B - Labeled/Fixativ e: Descending colon polyp, formalin. Quantity/Size: Single, 0.7 x 0.5 cm. Tissue Description: Partially flattened, irregular, non-oriented red-valencia mucosal tissue. Sections/Proces sing: Submitted en toto ??in 1 cassette labeled B1. ??shb 10/04/2021 1:50 PM EDT [facility] GI Biopsy 09/30/2021 2:31 PM EDT 09/30/2021 2:31 PM EDT GI Biopsy 09/30/2021 2:31 PM EDT 09/30/2021 2:31 PM EDT Clive Figueroa MD PATHOLOGY/CYTOLOG Y [place] [address] * Specimen to Pathology (09/30/2021 2:31 PM EDT) AP Specimen 09/30/2021 2:31 PM EDT 09/30/2021 2:31 PM EDT Narrative [facility] - 09/30/2021 2:31 PM EDT Specimen requisition ordered. ??Separate Pathology report to follow Clive Figueroa MD PATHOLOGY/CYTOLOG Y ORDERABLES Performing Organization Address [facility]/[place] [address] * Specimen to Pathology (09/30/2021 2:31 PM EDT) AP Specimen 09/30/2021 2:31 PM EDT 09/30/2021 2:31 PM EDT Narrative [facility] - 09/30/2021 2:31 PM EDT Specimen requisition ordered. ??Separate Pathology report to follow Clive Figueroa MD PATHOLOGY/CYTOLOG Y ORDERABLES Performing Organization Address [facility] [place] [address] * UPPER GI ENDOSCOPY (09/30/2021 1:27 PM EDT) UPPER GI ENDOSCOPY [facility] Endoscopy ___ Procedure Date: 09/30/2021 1:27 PM ? Patient Name: Isaura Aguiar ? Date of : 1940 ? Age: 80 ? Order #: [id number] ? Instrument Name: [id number] ? ___ Procedure: ? Upper GI endoscopy Indications: ? Iron deficiency anemia Patient Profile: ? This is a 80 year old female. Providers: ? Clive Figueroa MD, Savanah Ruiz ? Katy, LOIS, Henri Francis MD: ?Dulce Hidalgo MD Medicines: ? Monitored Anesthesia Care Complications: ? No immediate complications. ___ Procedure: ? Pre-Anesthesia Assessment: ? - Prior [...] cancer, and adverse medication ? reactions. The Endoscope was ? introduced through the mouth, and ? advanced to the third part of ? duodenum The upper GI endoscopy was ? accomplished without difficulty. ? The patient tolerated the procedure ? well. ? Findings: ? The upper third of the esophagus and middle third of ? the esophagus were normal. ? A non-obstructing and moderate Schatzki ring was ? found at the lower esophageal sphincter and at the ? gastroesophageal junction. A TTS dilator was passed ? through the scope. Dilation with a 15-16.5-18 mm x 8 ? cm CRE balloon dilator was performed to 18 mm. The ? dilation site was examined and showed no change. ? A small to medium-sized sliding hiatal hernia was ? found. The proximal extent of the gastric folds (end ? of tubular esophagus) was 37 cm from the incisors. ? The hiatal narrowing was 40 cm from the incisors. ? The exam of the stomach was otherwise normal. ? The examined duodenum was normal. ? Moderate Sedation: ? Not applicable - See Anesthesia documentation Impression: ?- Normal upper third of esophagus ? and middle third of esophagus. ? - Non-obstructing and moderate ? Schatzki ring. Dilated. ? - Small to medium-sized (3cm) ? sliding hiatal hernia. ? - Normal examined duodenum. ? - No specimens collected. Recommendation: ?- Continue Omeprazole ? - Proceed with Colonoscopy. ? Attending Participation: ? I personally performed the entire procedure. ? Dr. Rc Figueroa __ Clive Figueroa MD 09/30/2021 2:35:48 PM Number of Addenda: 0 Note Initiated On: 09/30/2021 1:27 PM PROVATION 09/30/2021 1:27 PM EDT Dulce Hidalgo MD GENERAL SURGICAL ORD ERABLES PROVATION * COLONOSCOPY (09/30/2021 1:26 PM EDT) COLONOSCOPY [facility] Endoscopy Procedure Date: 09/30/2021 1:26 PM ? Patient Name: Isaura Aguiar ? Date of : 1940 ? Age: 80 ? Order #: [id number] ? Instrument Name: [id number] ? Procedure: ? Colonoscopy Indications: ? Iron deficiency anemia Patient Profile: ? This is a 80 year old female. Providers: ? Clive Figueroa MD, Savanah Ruiz ? Katy, LOIS, Henri Francis MD: ?Dulce Hidalgo MD Medicines: ? Monitored Anesthesia [...] preparation was evaluated ? using the BBPS (Cleghorn Bowel ? Preparation Scale) with scores of: [...] Hidalgo MD GENERAL SURGICAL ORD ERABLES PROVATION documented in this encounter Visit Diagnoses Not on filedocumented in this encounter Active and Recently Administered Medications Care Teams [employer] Relationship Specialty Start Date End Date Dulce Hidalgo MD [address] [place] [address] [address] [place] [address] PCP - General Family Medicine 09/30/16 documented as of this encounter
--- OUTSIDE RECORDS SUMMARY | 2024-01-11 13:18 | XMS_ITS | Encounter Summary ---
Author Organization [facility] Address [facility] [place] [address] Care Team Providers Care Residence Leasing Agent Name Role Phone Dulce Hidalgo MD Primary Care Provider [phone] Reason for Referral * Consultation (Routine) - Closed Specialty Diagnoses / Procedures Referred By Christal lainez Referred To Contact Urology Diagnoses Ureteral cancer, right URETERAL CA - PT OF DR DO'S - DUE FOR RC IN 09/2021 WITH CYSTO,CT, LABS Dulce Hidalgo MD [address] [place] [address] [facility] [place] [address] Referral ID Status Reason Start Date Expiration Date V isits Requested Visits Authorized [id number] Closed Consult, Test & Treat PCP Updated and/or Approved 02/02/2022 02/02/2023 6 6 Encounter Details Date Type Department Care Team (Latest Contact Info) Description 02/02/2022 Transcribe Orders eDH Incoming Referrals [phone] Dulce Hidalgo MD [address] [place] [address] Ureteral cancer, right Social History Tobacco Use Types Packs/Day Years Used Date Smoking Tobacco: Never Smokeless Tobacco: Never Alcohol Use Standard Drinks/Week Comments No 0 (1 standard drink = 0.6 oz pur e alcohol) Sex and Gender Information Value Date Recorded Sex Assigned at Not on file Gender Identity Not on file Sexual Orientation Not on file documented as of this encounter Plan of Treatment Scheduled Referrals Name Type Priority Associated Diagnoses Orde r Schedule Referral to Urology Outpatient Referral Routine Ureteral cancer, right Ordered: 02/02/2022 documented as of this encounter Visit Diagnoses Diagnosis Ureteral cancer, right documented in this encounter Care Teams Residence Leasing Agent Relationship Specialty Start Date End Date Dulce Hidalgo MD [address] [place] [address] PCP - General Family Medicine 09/30/16 documented as of this encounter
--- OUTSIDE RECORDS SUMMARY | 2024-01-11 13:18 | XMS_ITS | Encounter Summary ---
[place] [address] Care Team Providers Care Assistant County Attorney Name Role Phone Dluce Hidalgo MD Primary Care Provider [phone] Encounter Details Date Type Department Care Team (Latest Contact Info) Description 10/25/2022 Travel Social History Tobacco Use Types Packs/Day [...] on filedocumented in this encounter Care Teams Assistant County Attorney Relationship Specialty Start Date End Date Dulce Hidalgo MD [address] [place] [address] PCP - General Family Medicine 09/30/16 documented as of this encounter
--- OUTSIDE RECORDS SUMMARY | 2024-01-11 13:18 | XMS_ITS | Encounter Summary ---
[place] [address] Care Team Providers Care Account Receivable Associate Name Role Phone Dulce Hidalgo MD Primary Care Provider Encounter Details Date Type Department Care Team (Late st Contact Info) Description 02/10/2023 Telephone [facility] [place] [phone] Cookie Chiu RN Social History Tobacco Use Types Packs/Day [...] encounter Miscellaneous Notes * Telephone Encounter - Cookie Chiu RN - 02/10/2023 2:05 PM EDT Pt left a message saying that she is scheduled for 02/17/23 SADIE, and started taking Jardiance on 12/24/22 and wanted to know if that would be a problem. Consulted with Dr. Bustillo and she said it is ok, and pt may continue taking Jardiance and proceed with procedure on 02/17/23. Called pt back and relayed the message. documented in this encounter Plan of Treatment Not on file documented as of this encounter Visit Diagnoses Not on filedocumented in this encounter Care Teams Account Receivable Associate Relationship Specialty Start Date End Date Dulce Hidalgo MD [address] [place] [address] PCP - General Family Medicine 09/30/16 documented as of this encounter
--- OUTSIDE RECORDS SUMMARY | 2024-01-11 13:18 | XMS_ITS | Encounter Summary ---
[place] [address] Care Team Providers Care Harpoon Engagement Planning Operator Name Role Phone Dulce Hidalgo MD Primary Care Provider [phone] Reason for Visit * Reason Comments Back Pain L4/L5 Compression FX * Consultation (Urgent) - Closed Specialty Diagnoses / Procedures Referred By Contac t Referred To Contact Pain and Spine Center Diagnoses Acute back pain, unspecified back location, unspecified back pain laterality Spine-L4/L5 compression fx/lumbar stenosis/MRI 12/09/22 @ [facility]/tried PT [facility]/Alex Linares PA [address] [place] [address] [facility] [place] [facility] [place] [address] Referral ID Status Reason Start Date Expiration Date V isits Requested Visits Authorized [id number] Closed Consult, Test & Treat PCP Updated and/or Approved 12/12/2022 12/12/2023 1 1 Encounter Details Date Type Department Care Team (Latest Contact Info) Description 12/29/2022 9:15 AM EDT Office Visit [facility] [place] [address] Rafaela Alonzo APRN [facility] [place] [address] Right lumbar radiculopathy (Primary Dx); Compression fracture of L5 vertebra with routine healing; Spondylolisthesis at L4-L5 level; Spondylolisthesis at L3-L4 level; Left lumbar radiculopathy Social History Tobacco Use Types Packs/Day Years [...] Sign Reading Time Taken Comments Blood Pressure - - Pulse - - Temperature - - Respiratory Rate - - Oxygen Saturation - - Inhaled Oxygen Concentration - - Weight 117.9 kg (260 lb) 12/29/2022 9:22 AM EDT Height 152.4 cm (5') 12/29/2022 9:22 AM EDT Body Mass Index 50.78 12/29/2022 9:22 AM EDT documented in this encounter Progress Notes * Rafaela Alonzo APRN - 12/29/2022 9:15 AM EDT [facility] Medical Decision Making: Isaura Aguiar is a 82 y.o. female seen today for a chief complaint of predominantly lower extremity radicular symptoms on the right greater than the left which is likely associated with central canal stenosis at L4-5 in the setting of a spondylolisthesis. While she does have compression fractures of L4, and L5, these do not appear to be a significant pain generator at this point. Given that her lower extremity symptoms are the more significant issue, I discussed with the patient that she could reasonably consider moving forward with an epidural steroid injection. We briefly discussed the role of surgery for the stenosis in the setting of a spondylolisthesis but because of her significant cardiac history, I counseled the patient that she was currently not a surgical candidate because of her medical comorbidities. My recommendations at this point would be to continue conservative nonoperative treatment. She agrees to trial an injection and I will reconnect with her after the injection is completed to review her response. Diagnosis: ICD-10-CM 1. Right lumbar radiculopathy M54.16 SURGICAL CASE REQUEST: INJECTION, EPIDURAL, LUMBAR OR SACRAL (CAUDAL), WITH IMAGING GUIDANCE (WRVU 1.8), Lumbar or Sacral Epidural Steroid Inj Sacral (Caudal) (36504) 2. Compression fracture of L5 vertebra with routine healing S32.050D 3. Spondylolisthesis at L4-L5 level M43.16 SURGICAL CASE REQUEST: INJECTION, EPIDURAL, LUMBAR OR SACRAL (CAUDAL), WITH IMAGING GUIDANCE (WRVU 1.8), Lumbar or Sacral Epidural Steroid Inj Sacral (Caudal) ([id number]) 4. Spondylolisthesis at L3-L4 level M43.16 5. Left lumbar radiculopathy M54.16 SURGICAL CASE REQUEST: INJECTION, EPIDURAL, LUMBAR OR SACRAL (CAUDAL), WITH IMAGING GUIDANCE (WRVU 1.8), Lumbar or Sacral Epidural Steroid Inj Sacral (Caudal) ([id number]) Plan L4-5 SADIE Follow-up with me when the above is completed HPI: Isaura Aguiar is a 82 y.o. female seen in referral today upon the request of Alex Chris for evaluation of a chief complaint of low back pain suspected to be associated with a progressive [id number] fracture with radiculopathy. She has been engaged with physical therapy for approximately 8 weeks with minimal improvement and in fact, some progression of pain. Symptoms have been present since October 18, 2022. She has begun to feel some sense of weakness to the right lower extremity with associated radiculopathy. Subsequently, she has been referred here for further evaluation. Currently, the patient has minimal discomfort in the lumbar spine itself. Her predominant complaintis buttock discomfort radiating to the bilateral lower extremities on the right greater than the left. The pain radiates from the buttock into the posterior aspect of the thigh and calf but not so much into the feet. She also is struggling with severe bilateral lower extremity edema. She reports that her current buttock and lower extremity pain is impairing her ability to do normal daily activities. She has numbness and tingling in the same distribution as the pain as well as a vague sense of weakness. She denies any alteration in bowel or bladder function. Her symptoms are worsened with prolo nged standing and walking. She reports that she can stand for approximately 30 minutes before she feels that she needs to sit down. She reports that it is somewhat difficult to sit for prolonged periods secondary to worsening leg symptoms. She is currently taking Tylenol which she does find helpful. ROS A ten point review of systems was completed today and, of note, pertinent positive and negatives are indicated in the HPI. reports that she has never smoked. She has never used smokeless tobacco. Conservative Treatment: Physical Therapy: She has had 6 to 8 weeks of physical therapy-both land and aquatic Home Exercise Program: She performs daily as tolerated Medications: Acetaminophen: Yes Helpful? Yes Injections: None Physical Examination: Wt Readings from Last 1 Encounters: 12/29/22 117.9 kg (260 lb) BMI Readings from Last 1 Encounters: 12/29/22 50.78 kg/m?? Pain: 6 (past 7 days pain lvl at lowest 3, highest 10) General: Pleasant, cooperative, Mood and affect are appropriate. She is morbidly obese Posture: She is seated comfortably in her wheelchair. Upon rising from a seated to a standing position, she does struggle and need to push the arms of the wheelchair and subsequently, her cane to getto a standing position. Once standing, she does stay slightly forward flexed. Gait: Antalgic and guarded Palpation: There is no tenderness with direct palpation over the lower lumbar spine. There are no masses, lesions, or deformities. Skin: She has a profound level of edema in her bilateral lower extremities ROM: Deferred-she is unsteady Sensation: Grossly intact throughout all dermatomes with the exception of some altered sensation chetan predominantly L5 distribution Neuro: It is difficult to do an adequate neurological evaluation as she cannot sit far enough back on the exam table. However, with limited examination, she appears to be neurologically intact outside of altered sensation Imaging and Test Review: On the day of this encounter, I independently reviewed an MRI of the lumbar spine was completed on 12/22/2022 demonstrating a two-level spondylolisthesis at L3-4, and L4-5. There is a compression deformity that appears chronic in nature of L4 but there is also what appears to be a more acute on chronic compression fracture of L5. At L4-5, there is severe central canal stenosis and additional severe right foraminal stenosis. CC: Dulce Hidalgo MD Referring Provider: Alex Alonzo, GUEST REQUEST RUNNER 12/29/2022 [facility] documented in this encounter Plan of Treatment Not on file documented as of this encounter Visit Diagnoses Diagnosis Right lumbar radiculopathy- Primary Thoracic or lumbosacral neuritis or radiculitis, unspecified Compression fracture of L5 vertebra with routine healing Spondylolisthesis at L4-L5 level Spondylolisthesis at L3-L4 level Left lumbar radiculopathy Thoracic or lumbosacral neuritis or radiculitis, unspecified documented in this encounter Care Teams Harpoon Engagement Planning Operator Relationship Specialty Start Date End Date Dulce Hidalgo MD [address] [facility] [address] [place] [address] PCP - General Family Medicine 09/30/16 documented as of this encounter
--- OUTSIDE RECORDS SUMMARY | 2024-01-11 13:18 | XMS_ITS | Encounter Summary ---
[place] [address] Care Team Providers Care Cycle Touring Guide Name Role Phone Dulce Hidalgo MD Primary Care Provider [phone] Encounter Details Date Type Department Care Team (Late st Contact Info) Description 02/22/2021 3:05 PM EDT Ancillary Procedure [place] [phone] Dulce Hidalgo MD [facility] [address] [place], [place] [id number] Social History Tobacco Use Types Packs/Day Years [...] Associated Diagnosis Comments FILM LIBRARY STORAGE ONLY DX CHEST Routine 02/22/2021 3:00 PM EDT documented in this encounter Results * Film Library- Storage Only DX Chest (02/22/2021 3:00 PM EDT) Narrative RAD - 02/22/2021 3:00 PM EDT This exam is auto-finalizing. It's purpose is for storage only. Dulce Hidalgo MD IMG FILM LIBRARY ORD ERABLES [place], [place] documented in this encounter Visit Diagnoses Not on filedocumented in this encounter Care Teams Cycle Touring Guide Relationship Specialty Start Date End Date Dulce Hidalgo MD [address] [place] [address] [address] [place] [address] PCP - General Family Medicine 09/30/16 documented as of this encounter
--- OUTSIDE RECORDS SUMMARY | 2024-01-11 13:18 | XMS_ITS | Encounter Summary ---
[place] [address] Care Team Providers Care Airplane Tester Name Role Phone Dulce Hidalgo MD Primary Care Provider [phone] Reason for Referral * Consultation (Urgent) - Closed Specialty Diagnoses / Procedures Referred By Christal t Referred To Contact Pain and Spine Center Diagnoses Acute back pain, unspecified back location, unspecified back pain laterality Spine-L4/L5 compression fx/lumbar stenosis/MRI 12/09/22 @ [facility]/tried PT [facility] Alex Chris PA [address] [place] [address] [facility] [place] [address] Referral ID Status Reason Start Date Expiration Date V isits Requested Visits Authorized [id number] Closed Consult, Test & Treat PCP Updated and/or Approved 12/12/2022 12/12/2023 1 1 Encounter Details Date Type Department Care Team (Latest Contact Info) Description 12/12/2022 Transcribe Orders eDH Incoming Referrals [phone] Alex Chris PA [address] [place] [address] Acute back pain, unspecified back location, unspecified back pain laterality Social History Tobacco Use Types Packs/Day Years [...] Associated Diagnoses Orde r Schedule Referral to Spine Center Outpatient Referral Urgent Acute back pain, unspecified back location, unspecified back pain laterality Ordered: 12/12/2022 documented as of this encounter Visit Diagnoses Diagnosis Acute back pain, unspecified back location, unspecified back pain laterality documented in this encounter Care Teams Airplane Tester Relationship Specialty Start Date End Date Dulce Hidalgo MD [address] [place] [address] PCP - General Family Medicine 09/30/16 documented as of this encounter
--- OUTSIDE RECORDS SUMMARY | 2024-01-11 13:18 | XMS_ITS | Encounter Summary ---
Author Organization [facility] Address [facility] [place] [address] Care Team Providers Care Finance Administrator Name Role Phone Dulce Hidalgo MD Primary Care Provider [phone] Encounter Details Date Type Department Care Team (Latest Contact Info) Description 02/25/2019 9:58 AM EDT - 02/25/2019 11:59 PM EDT Hospital Encounter XRay at [address] [place] [phone] Discharge Disposition: Home Social History Tobacco Use Types Packs/Day Years Used Date Smoking Tobacco: Never Smokeless Tobacco: Never Alcohol Use Standard Drinks/Week Comments No 0 (1 standard drink = 0.6 oz pur e alcohol) Sex and Gender Information Value Date Recorded Sex Assigned at Not on file Gender Identity Not on file Sexual Orientation Not on file documented as of this encounter Medications at Time of Discharge [...] tablets every 6 hrs as needed* 08/05/2010 oxyCODONE (ROXICODONE) 5 mg Tablet Take 1 tablet by mouth every 6 hours as needed for Pain (To give prior to discharge.). 10 tablet 07/21/2018 01/06/2020 aspirin 81 mg EC tablet Take 81 mg by mouth daily. 01/06/2020 atenolol (TENORMIN) 50 mg tablet Take 50 mg by mouth daily. 08/05/2010 10/11/2023 simvastatin (ZOCOR) 10 mg tablet Take 10 mg by mouth daily. 08/05/2010 10/11/2023 documented as of this encounter Plan of Treatment Not on file documented as of this encounter Procedures Procedure Name Priority Date/Time Associated Diagnosis Comments XR CHEST PA AND LATERAL Routine 02/25/2019 10:20 AM EDT documented in this encounter Results * XR Chest PA & Lateral (Generic) (02/25/2019 10:20 AM EDT) Anatomical Region Laterality Modality Chest N/A Digital Radiogra phy Impressions 02/25/2019 10:40 AM EDT Irregular small indeterminate opacity in mid right lung, possibly focal scarring, but new from 10/05/2016. Chest CT has already been scheduled with CT of the abdomen and pelvis today. Thank you for letting us participate in the care of this patient. For questions regarding this report, please contact the number below. ? Narrative 02/25/2019 10:40 AM EDT EXAMINATION: XR CHEST PA AND LATERAL (GENERIC) CLINICAL HISTORY: bladder mass, looking for pulmonary nodules TECHNIQUE: PA and lateral views of the chest. COMPARISON: 10/05/2016. FINDINGS: Irregular small opacity in the mid right lung is indeterminate, possibly focal scarring. No other interval pulmonary findings. The cardiomediastinal silhouette, azra, pulmonary vessels, and pleura are within normal limits. No interval osseous findings are seen. Procedure Note Joelle Johnston MD - 02/25/2019 EXAMINATION: XR CHEST PA AND LATERAL (GENERIC) CLINICAL HISTORY: bladder mass, looking for pulmonary nodules TECHNIQUE: PA and lateral views of the chest. COMPARISON: 10/05/2016. FINDINGS: Irregular small opacity in the mid right lung isindeterminate, possibly focal scarring. No other interval pulmonary findings. The cardiomediastinal silhouette, azra, pulmonary vessels, and pleura arewithin normal limits. No interval osseous findings are seen. IMPRESSION Irregular small indeterminate opacity in mid right lung, possibly focal scarring, but new from 10/05/2016. Chest CT has already beenscheduled with CT of the abdomen and pelvis today. Thank you for letting us participate in the care of this patient. Forquestions regarding this report, please contact the number below. Ariel Do MD IMG DX ORDERABLES documented in this encounter Visit Diagnoses Not on filedocumented in this encounter Care Teams Finance Administrator Relationship Specialty Start Date End Date Dulce Hidalgo MD [facility] [address] [address] PCP - General Family Medicine 09/30/16 documented as of this encounter
--- OUTSIDE RECORDS SUMMARY | 2024-01-11 13:18 | XMS_ITS | Encounter Summary ---
[place] [address] Care Team Providers Care Assistant Operator Name Role Phone Dulce Hidalgo MD Primary Care Provider [phone] Encounter Details Date Type Department Care Team (Late st Contact Info) Description 12/09/2022 Ancillary Procedure [place] [phone] Dulce Hidalgo MD [address] [place] [address] [facility] [address] [place], [place] [id number] Social History Tobacco Use Types Packs/Day Years [...] Associated Diagnosis Comments FILM LIBRARY STORAGE ONLY MR SPINE Routine 12/09/2022 12:00 AM EDT documented in this encounter Results * Film Library- Storage Only MR Spine (12/09/2022 12:00 AM EDT) Narrative RAD - 12/22/2022 1:46 PM EDT This exam is auto-finalizing. It's purpose is for storage only. Dulce Hidalgo MD IMG FILM LIBRARY ORD ERABLES [place], [place] documented in this encounter Visit Diagnoses Not on filedocumented in this encounter Care Teams Assistant Operator Relationship Specialty Start Date End Date Dulce Hidalgo MD [address] [place] [address] [facility] [address] [place] [address] PCP - General Family Medicine 09/30/16 documented as of this encounter
--- OUTSIDE RECORDS SUMMARY | 2024-01-11 13:18 | XMS_ITS | Encounter Summary ---
[place] [address] Care Team Providers Care Draw Bench Operator Helper Name Role Phone Dulce Hidalgo MD Primary Care Provider [phone] Reason for Referral * Diagnostic Test (Routine) - Closed Specialty Diagnoses / Procedures Referred By Christal lainez Referred To Contact Radiology Diagnoses Urothelial carcinoma Procedures CT Abdomen & Pelvis wo Contrast Ariel Do MD [facility] [place] [address] [place] [address] [facility] [place] [address] Referral ID Status Reason Start Date Expiration Date V isits Requested Visits Authorized [id number] Closed Specialty Service Requested 02/25/2019 02/25/2020 1 1 Reason for Visit * Reason Comments Follow-up Encounter Details Date Type Department Care Team (Late st Contact Info) Description 02/25/2019 1:00 PM EDT [place] [address] Ariel Do MD [facility] [place] [address] [place] [address] Urothelial carcinoma (Primary Dx) Social History Tobacco Use Types [...] Sign Reading Time Taken Comments Blood Pressure 144/51 02/25/2019 1:18 PM EDT Pulse 61 02/25/2019 1:18 PM EDT Temperature 36.4 ??C (97.6 ??F) 02/25/2019 1:18 PM ED T Respiratory Rate - - Oxygen Saturation - - Inhaled Oxygen Concentration - - Weight - - Height - - Body Mass Index - - documented in this encounter Patient Instructions * Patient Instructions* Lauren Webster RN - 02/25/2019 1:00 PM EDT Instructions following Cystoscopy Activity: As tolerated by your comfort level. Fluids: You should increase your water today. Avoid coffee, tea and cola. You do not need to niimcu25 ounces of water today. Urination: You will likely have a small amount of blood in your urine for the next several days. This is normal; however, if you are passing large amounts of blood clots or are unable to void please call our office at [phone] before 5PM or [phone] after hours. Please call if: * you have copious blood in your urine * fevers greater than 101.3 F * you are unable to void The number for questions is [phone] before 5 PM weekdays and [phone] after 5 PM and weekends. Follow-up: With cystoscopy in 6 months documented in this encounter Progress Notes * Ariel Do MD - 02/25/2019 1:00 PM EDT Patient Name: Isaura Aguiar Date of Service: 02/25/2019 Primary Care Provider: Dulce Hidalgo MD Reason for Visit: Isaura Aguiar is a 78 y.o. 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 She completed the following adjuvant therapy - 12/27/16 - 02/28/17 3 cycles of cisplatin and gemcitabine -05/01 - 06/06/17 concurrent XRT and Xeloda 1800 mg BID 12/2017 Admitted for partial SBO, resolved with conservative management. No clear recurrence. Incisional hernia, wide mouthed, 07/2018 Incisional hernia repair with MESH (Dr Michael Carroll) She has no urinary symptoms. . No hematuria, fevers, chills, nausea, vomiting. Bowel movements are back to normal, about once or twice per day. She is walking around well. She has her appetite back and is eating well. She has been in the hospital 3 x with possible SBO in [facility]. She has needed to be kept overnight.. Patient Active Problem List Diagnosis ??? Ventral hernia ??? Dehydration ??? Neutropenia, drug-induced ??? Metastatic urothelial carcinoma ??? Ureteral cancer ??? Renal mass ??? 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 IT band syndrome ??? SK (seborrheic keratosis) ??? AK (actinic keratosis) ??? Osteopenia Overview Note: Last Dexa scan August 06, 2009 showed T scores of -1.5 in the lumbar spine,m - 0.4 in the left hip, and 0.6 in the left femoral neck. ??? BRCA2 positive Overview Note: [address] in BRCA2. She has had bilateral mastectomies and bilateral oophorectomies. ??? Benign essential tremor Overview Note: ??? Hypertension Overview Note: ??? Stage III Ovarian cancer Overview Note: in 1994, treated with a JOANN/BSO, appendectomy, partial bowel resection, and chemotherapy ??? Breast cancer, stage 1 Overview Note: Ms. 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 The patient has been for 55years with 3 children. The patient drinks no ETOH Tobacco: Never Physical Exam: Vital Signs are reviewed. The patient appears healthy and in no distress. Abdomen benign incision3 are well healed. Cystoscopy 03/2017: Absent RUO, no recurrence. Some residual suture fragments, dissolving. 09/2017: Absent RUO. No tumors 01/2018: Absent RUO. No tumors 08/2018: Absent RUO. No tumors 02/2019: Absent RUO. No tumors Lab values are reviewed 10/2017 1.28, eGFR 41 07/2018 Cr 1.5, eGFR 34 02/2019 Cr 1.27, eGFR41, LFT's normal Imaging 12/[address] No metastatic disease. Wide mouthed hernia 06/2018 CT Chest/abd pelvis negative 02/2019 CT chest/abd/pelvis (no IV contrast) Negative. Report pending Impression: #1: Metastatic high grade Urothelial cancer of the right ureter, pT3pN2, s/p right nephroureteretcomy, negative bladder cuff margin #2: Stage 3a CRI #3: Morbid obesity #4: BRAC2 mutation #5: Moderate co-morbidity #6: Incisional hernia through extraction site sp repair #7: Recurrent SBO Plan: Cytology 6 months with a cystoscopy CMP/CT chest/abd/pelvis, Cytology Observe SBO for the moment. Ariel Do documented in this encounter Procedure Notes * Ariel Do MD - 02/25/2019 1:00 PM EDTAssociated Order(s): CYSTOSCOPY Pre-Procedure Diagnose(s): Urothelial carcinoma Procedure: Flexible Cystoscopy Surgeon: Ariel Do Preoperative Diagnosis: History of Ureter Cancer Post Operative Diagnosis: No evidence of Bladder [...] urethroscopy was normal. The Left ureteral orifices is in normal position and effluxed clear urine. RU0 absent. Healed scar. The bladder was otherwise normal. There were no bladder tumors, mucosal abnormalities or bladder stones. The cystoscope was removed. The patient tolerated the procedure without difficulty. There were no complications. Ariel Do documented in this encounter Plan of Treatment Not on file documented as of this encounter Procedures Procedure Name Priority Date/Time Associated Diagnosis Comments NON-DIVERSITY SPECIALIST FINAL REPORT Routine 02/25/2019 1:50 PM EDT CYSTOSCOPY Routine 02/25/2019 1:00 PM EDT Urothelial carcinoma documented in this encounter Results * CT Abdomen & Pelvis wo Contrast (01/06/2020 2:30 PM EDT) Anatomical Region Laterality Modality Abdomen, Pelvis Computed Tomogra phy Impressions 01/06/2020 3:21 PM EDT Stable exam. Limited evaluation without the use of intravenous contrast. Thank you for letting us participate in the care of this patient. For questions regarding this report, please contact the number below. ? Electronically signed by: Jitendra Mendiola [facility] ([phone]), at 01/06/2020 3:21 PM Narrative 01/06/2020 3:21 PM EDT EXAMINATION: CT ABDOMEN AND PELVIS WO CONTRAST CLINICAL HISTORY: Hx of T3N2 ureteral cancer ? recurrence TECHNIQUE: Helical CT of the abdomen and pelvis was performed without the use of intravenous contrast. ??Multiplanar reformatted images were generated. COMPARISON: 02/25/2019 FINDINGS: The absence of intravenous contrast limits the evaluation of solid viscera and vasculature. Liver: Normal. Bile ducts: Nondilated. Gallbladder: No calcified gallstones. Normal caliber wall. Pancreas: Normal attenuation without ductal dilatation. Spleen: Normal. Adrenals: Normal. Kidneys: Post RIGHT nephrectomy. Stable postoperative bed. No complication or local tumor recurrence. The LEFT kidney is grossly normal. Bladder: Collapsed Vasculature: No aneurysm. Lymph Nodes: No enlarged lymph nodes. Bowel: Nondilated, no wall thickening. ?? Peritoneum and mesentery: No ascites, free air, or loculated fluid collection. No mesenteric inflammation. Abdominal wall: Stable midline postsurgical scar. No hernia. Reproductive organs: No adnexal masses Osseous structures: No suspicious lesions. Procedure Note Jitendra Mendiola MD - 01/06/2020 EXAMINATION: CT ABDOMEN AND PELVIS WO CONTRAST CLINICAL HISTORY: Hx of T3N2 ureteral cancer ? recurrence TECHNIQUE: Helical CT of the abdomen and pelvis was performed without theuse of intravenous contrast. Multiplanar reformatted images were generated. COMPARISON: 02/25/2019 FINDINGS: The absence of intravenous contrast limits the evaluation of solid visceraand vasculature. Liver: Normal. Bile ducts: Nondilated. Gallbladder: No calcified gallstones. Normal caliber wall. Pancreas: Normal attenuation without ductal dilatation. Spleen: Normal. Adrenals: Normal. Kidneys: Post RIGHT nephrectomy. Stable postoperative bed. No complicationor local tumor recurrence. The LEFT kidney is grossly normal. Bladder: Collapsed Vasculature: No aneurysm. Lymph Nodes: No enlarged lymph nodes. Bowel: Nondilated, no wall thickening. Peritoneum and mesentery: No ascites, free air, or loculated fluidcollection. No mesenteric inflammation. Abdominal wall: Stable midline postsurgical scar. No hernia. Reproductive organs: No adnexal masses Osseous structures: No suspicious lesions. IMPRESSION Stable exam. Limited evaluation without the use of intravenous contrast. Thank you for letting us participate in the care of this patient. Forquestions regarding this report, please contact the number below. Electronically signed by: Jitendra Mendiola [facility]([phone]), at 01/06/2020 3:21 PM Ariel Do MD [facility] ORDERABLES * (ABNORMAL) Comprehensive metabolic panel (non-fasting) (01/06/2020 12:07 PM EDT) Glucose Lvl 123 65 - 199 mg/dL [facility] Comment:Diabetes: >=200 mg/d L plus symptoms BUN 20(H) 8 - 18 mg/dL [facility] Creatinine 1.28(H) 0.70 - 1.20 mg/dL [facility] Sodium 137 135 - 145 mmol/L [facility] Potassium 4.2 3.5 - 5.0 mmol/L [facility] Comment: Please note: ??Patients with WBC >100,000 may have falsely elevated Potassium levels. ??For accurate Potassium quantification in these patients send serum separator tube (gold top) for subsequent determinations. ??Contact the Clinical Chemistry Laboratory if there are any questions. Chloride 99 98 - 107 mmol/L [facility] CO2 27 22 - 31 mmol/L [facility] Anion Gap 11 5 - 15 mmol/L [facility] Calcium 10.1 8.5 - 10.5 mg/dL [facility] Total Protein 7.0 6.1 - 8.0 gm/dL [facility] Albumin 4.2 3.2 - 5.2 gm/dL [facility] AST 15 0 - 30 unit/L [facility] ALT 8 0 - 30 unit/L [facility] Alk Phos 83 35 - 105 unit/L [facility] Total Bilirubin 0.4 0.2 - 1.3 mg/dL [facility] Estimated GFR 40(L) >=60 mL/min/1. 73 m?? [facility] Comment: The eGFR was calculated using the CKD-EPI equation. As with all creatinine based estimates of kidney function, eGFR values calculated with the CKD-EPI equation are not accurate in patients with acute kidney failure, extremes of body mass or the acutely ill. http://[employer]/[email or web address] eGFR 47(L) >=60 mL/min/1. 73 m?? [facility] Comment: The eGFR was calculated using the CKD-EPI equation. As with all creatinine based estimates of kidney function, eGFR values calculated with the CKD-EPI equation are not accurate in patients with acute kidney failure, extremes of body mass or the acutely ill. [email or web address] Blood specimen (specimen) 01/06/2020 12:07 PM EDT 01/06/2020 12:23 PM EDT Narrative Resulting Agency Comment Spec In Lab Ariel Do MD CHEMISTRY ORDERABLES [facility] [place] [address] * XR Chest PA & Lateral (Generic) (01/06/2020 11:56 AM EDT) Anatomical Region Laterality Modality Chest N/A Digital Radiogra phy Impressions 01/06/2020 1:36 PM EDT No new pulmonary nodules seen. Thank you for letting us participate in the care of this patient. For questions regarding this report, please contact the number below. ? Electronically signed by: Joelle Johnston [facility] ([phone]), at 01/06/2020 1:36 PM Narrative 01/06/2020 1:36 PM EDT EXAMINATION: XR CHEST PA AND LATERAL (GENERIC) CLINICAL HISTORY: Hx T3N2 urothelial cancer ? new lung nodules TECHNIQUE: PA and lateral views of the chest. COMPARISON: 02/25/2019. FINDINGS: Previous small irregular opacity projecting over the right hemithorax is no longer identified. No new nodules are seen. Minimal coarse reticulation/fibrotic change at the lung bases. The cardiomediastinal silhouette, azra, pulmonary vessels, and pleura are within normal limits. No interval osseous findings are seen. Procedure Note Joelle Johnston MD - 01/06/2020 EXAMINATION: XR CHEST PA AND LATERAL (GENERIC) CLINICAL HISTORY: Hx T3N2 urothelial cancer ? new lung nodules TECHNIQUE: PA and lateral views of the chest. COMPARISON: 02/25/2019. FINDINGS: Previous small irregular opacity projecting over the righthemithorax is no longer identified. No new nodules are seen. Minimal coarse reticulation/fibrotic change at the lung bases. The cardiomediastinal silhouette, azra, pulmonary vessels, and pleura are within normal limits.No interval osseous findings are seen. IMPRESSION No new pulmonary nodules seen. Thank you for letting us participate in the care of this patient. Forquestions regarding this report, please contact the number below. Electronically signed by: Joelle Johnston [facility]([phone]), at 01/06/2020 1:36 PM Ariel Do MD IMG DX ORDERABLES * Non-Brake Lining Finisher Final Report (02/25/2019 1:50 PM EDT) Diagnosis Discussion [id number] ? Location: 5B The signing pathologist has (i) examined the relevant preparation(s) for the specimen(s) and (ii) rendered or confirmed the diagnosis(es). . ? Non-Brake Lining Finisher Final DIAGNOSIS Negative for High Grade Urothelial Carcinoma See discussion. Electronically signed by: ??José Miguel Strong MD Verified: ??02/27/2019 ?Pathologist Performed at: ??-[facility] Dept. of Pathology, [place], [place] DISCUSSION Urine, voided: Urothelial cells, squamous cells, and white blood cells are present. Reference: Vanda DL, Slim EM, Elif DFI. The Tori System for Reporting Urinary Cytology. [place]: [place]; 2016. CLINICAL INFORMATION Specimen Source : Urine, voided Pertinent Clinical Data and Significant Therapy: Hematuria Clinical Impression : History of bladder cancer Pertinent Radiologic Findings ??: (not provided) Gross Description: Received ??fresh approximately 60 mL total volume of ?? clear, yellow fluid. Total Preparation: Liquid-Based Prep 1. 02/27/2019 10:34 AM EDT [facility] URINE SPECIMEN OBTAINED BY CLEAN CATCH PROCEDURE / Unknown 02/25/2019 1:50 PM EDT 02/25/2019 1:50 PM EDT Ariel Do MD PATHOLOGY/CYTOLOGY O RDERABLES [facility] [place] [address] * Cystoscopy (02/25/2019 1:00 PM EDT) Narrative Ariel Do MD - 02/25/2019 1:00 PM EDT Ariel Do MD ? 02/26/2019 ??9:39 AM Procedure: Flexible Cystoscopy Surgeon: Ariel Do Preoperative Diagnosis: History of Ureter Cancer Post Operative Diagnosis: No evidence of Bladder [...] urethroscopy was normal. The Left ureteral orifices is in normal position and effluxed clear urine. RU0 absent. Healed scar. The bladder was otherwise normal. There were no bladder tumors, mucosal abnormalities or bladder stones. The cystoscope was removed. The patient tolerated the procedure without difficulty. There were no complications. Ariel Do Ariel Do MD PROCEDURE ORDERAB LES documented in this encounter Visit Diagnoses Diagnosis Urothelial carcinoma- Primary Other malignant neoplasm without specification of site Urothelial carcinoma Other malignant neoplasm without specification of site Urothelial carcinoma Other malignant neoplasm without specification of site documented in this encounter Care Teams Draw Bench Operator Helper Relationship Specialty Start Date End Date Dulce Hidalgo MD [address] [place] [address] PCP - General Family Medicine 09/30/16 documented as of this encounter
--- OUTSIDE RECORDS SUMMARY | 2024-01-11 13:18 | XMS_ITS | Encounter Summary ---
[place] [address] Care Team Providers Care Psychological Anthropologist Name Role Phone Dulce Hidalgo MD Primary Care Provider [phone] Encounter Details Date Type Department Care Team (Late st Contact Info) Description 02/06/2019 Telephone [place] [phone] Cristina Ogden Social History Tobacco Use Types Packs/Day Years [...] encounter Miscellaneous Notes * Telephone Encounter - Cristina Ogden - 02/06/2019 11:42 AM EDT LOIS Thurston at PCP's office calls at Dr. Hidalgo's request to inquire if pt should remain on PPI's basedupon results from last EGD. Please return call to: [phone] documented in this encounter Plan of Treatment Not on file documented as of this encounter Visit Diagnoses Not on filedocumented in this encounter Care Teams Psychological Anthropologist Relationship Specialty Start Date End Date Dulce Hidalgo MD [facility] [address] [facility] [address] [place] [address] PCP - General Family Medicine 09/30/16 documented as of this encounter
--- OUTSIDE RECORDS SUMMARY | 2024-01-11 13:18 | XMS_ITS | Encounter Summary ---
Author Organization [facility] [place] [address] Care Team Providers Care Blade Operator Name Role Phone Dulce Hidalgo MD Primary Care Provider [phone] Reason for Visit * Reason Comments Follow-up Encounter Details Date Type Department Care Team (Late st Contact Info) Description 03/15/2021 3:00 PM EDT [place] [id number] Ariel Do MD [facility] [place] [address] Lower urinary tract symptoms (LUTS); Cancer of renal pelvis, right Social History Tobacco Use Types Packs/Day [...] Sign Reading Time Taken Comments Blood Pressure 156/77 03/15/2021 3:10 PM EDT Pulse 62 03/15/2021 3:10 PM EDT Temperature - - Respiratory Rate - - Oxygen Saturation - - Inhaled Oxygen Concentration - - Weight - - Height - - Body Mass Index - - documented in this encounter Patient Instructions * Patient Instructions* Rosita Rao CCMA - 03/15/2021 3:00 PM EDT Instructions following Cystoscopy Activity: As tolerated by your comfort level. Fluids: You should increase your water today. Avoid coffee, tea and cola. You do not need to hnysvj70 ounces of water today. Urination: You will likely have a small amount of blood in your urine for the next several days. This is normal; however, if you are passing large amounts of blood clots or are unable to void please call our office at [phone] before 5PM or [phone] after hours. Please call if: * you have copious blood in your urine * fevers greater than 101.3 F * you are unable to void The number for questions is [phone] before 5 PM weekdays and [phone] after 5 PM and weekends. Follow-up: 6 months documented in this encounter Progress Notes * Ariel Do MD - 03/15/2021 3:00 PM EDT Patient Name: Isaura Aguiar Date of Service: 03/15/2021 Primary Care Provider: Dulce Hidalgo MD Reason for Visit: Isaura Aguiar is a 80 y.o. female with metastatic right upper ureteral [...] appetite back and is eating well. She continues to have problems with intermittent SBO (~ 5 x in total). This resolves with conservative management. Patient Active Problem List Diagnosis ??? 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 The patient drinks no ETOH Tobacco: Never Physical Exam: Vital Signs are reviewed. The patient appears healthy and in no distress. Abdomen benign incision3 are well healed. Lab values are reviewed 10/2017 1.28, eGFR 41 07/2018 Cr 1.5, eGFR 34 02/2019 Cr 1.27, eGFR41, LFT's normal 12/2019 Cr 1.28, eGFR40, LFT's normal Imaging 12/[address] No metastatic disease. Wide mouthed hernia 06/2018 CT Chest/abd pelvis negative 02/2019 CT chest/abd/pelvis (no IV contrast) Negative. Report pending 12/2019 CXR negative 12/2019 CT IMPRESSION ??Stable exam. Limited evaluation without the use of intravenous contrast. 02/2021 CTC/A/P Negative Cystoscopy 03/2017: Absent RUO, no recurrence. Some residual suture fragments, dissolving. 09/2017: Absent RUO. No tumors 01/2018: Absent RUO. No tumors 08/2018: Absent RUO. No tumors 02/2019: Absent RUO. No tumors 03/2021: Absent RUO> No tumors Cytology 02/2019 Negative 03/2020 Pending Impression: #1: Metastatic high grade Urothelial [...] Procedure Notes * Ariel Do MD - 03/15/2021 3:00 PM EDTAssociated Order(s): CYSTOSCOPY Pre-Procedure Diagnose(s): Lower urinary tract symptoms (LUTS) Procedure: Flexible Cystoscopy Surgeon: Ariel Do Preoperative [...] Procedure Name Priority Date/Time Associated Diagnosis Comments NON-INGOT SUPERVISOR FINAL REPORT Routine 03/15/2021 3:48 PM EDT CYTOPATHOLOGY NON-GYNECOLOGICAL Routine 03/15/2021 3:48 PM EDT Lower urinary tract symptoms (LUTS) Cancer of renal pelvis, right CYSTOSCOPY Routine 03/15/2021 3:00 PM EDT Lower urinary tract symptoms (LUTS) documented in this encounter Results * Non-House Rn Final Report (03/15/2021 3:48 PM EDT) Diagnosis Discussion [id number] ? Location: 5B The signing pathologist has (i) examined the relevant preparation(s) for the specimen(s) and (ii) rendered or confirmed the diagnosis(es). . ? Non-House Rn Final DIAGNOSIS Negative for High Grade Urothelial Carcinoma See discussion. Electronically signed by: ?Ligia KWOK, José Miguel Sanchez Verified: ??03/17/2021 12:12 ??Pathologist Performed at: ??-[facility] Dept. of Pathology, [place], [place] DISCUSSION Urine, voided: Predominantly squamous cells. Reference: Vanda BYNUM, ?? Slim MURPHY, Elif ??DFI. The Tori System for Reporting Urinary Cytology. [place]: [place]; 2016. CLINICAL INFORMATION Specimen Source : Urine, voided Pertinent Clinical Data and Significant Therapy: Hematuria Clinical Impression : Hematuria Pertinent Radiologic Findings ??: (not provided) Gross Description: Received ??fresh, approximately 75 mL total volume of ?? clear, yellow fluid, with light flecks. Total Preparation: Liquid-Based Prep 1. 03/17/2021 12:12 PM EDT [facility] URINE SPECIMEN OBTAINED BY CLEAN CATCH PROCEDURE / Unknown 03/15/2021 3:48 PM EDT 03/15/2021 3:48 PM EDT Ariel Do MD PATHOLOGY/CYTOLOGY O [place] [facility] [place] [place] [address] * Cytopathology Non-Gynecological (03/15/2021 3:48 PM EDT) AP Specimen 03/15/2021 3:48 PM EDT 03/15/2021 3:48 PM EDT Narrative [facility] - 03/15/2021 3:48 PM EDT Specimen requisition ordered. ??Separate Pathology report to follow Ariel Do MD PATHOLOGY/[place] [address] * Cystoscopy (03/15/2021 3:00 PM EDT) Narrative Ariel Do MD - 03/15/2021 3:00 PM EDT Ariel Do MD ? 03/15/2021 ??3:53 PM Procedure: Flexible Cystoscopy Surgeon: Ariel Do [...] documented in this encounter Visit Diagnoses Diagnosis Lower urinary tract symptoms (LUTS) Other symptoms involving urinary system Cancer of renal pelvis, right documented in this encounter Care Teams Blade Operator Relationship Specialty Start Date End Date Dulce Hidalgo MD [address] [place] [address] PCP - General Family Medicine 09/30/16 documented as of this encounter
--- OUTSIDE RECORDS SUMMARY | 2024-01-11 13:18 | XMS_ITS | Encounter Summary ---
[place] [address] Care Team Providers Care Flare Man Name Role Phone Dulce Hidalgo MD Primary Care Provider [phone] Encounter Details Date Type Department Care Team (Latest Contact Info) Description 12/28/2022 Travel Social History Tobacco Use Types Packs/Day [...] on filedocumented in this encounter Care Teams Flare Man Relationship Specialty Start Date End Date Dulce Hidalgo MD [address] [place] [address] PCP - General Family Medicine 09/30/16 documented as of this encounter
--- OUTSIDE RECORDS SUMMARY | 2024-01-11 13:18 | XMS_ITS | Encounter Summary ---
[place] [address] Care Team Providers Care Financial Services Sales Representative Name Role Phone Dulce Hidalgo MD Primary Care Provider [phone] Encounter Details Date Type Department Care Team (Latest Contact Info) Description 01/06/2020 12:15 PM EDT Laboratory Appointment Lab [address] [place] [phone] Urothelial carcinoma Social History Tobacco Use Types Packs/Day Years [...] Procedure Name Priority Date/Time Associated Diagnosis Comments HC VENIPUNCTURE Routine 01/06/2020 12:07 PM EDT Urothelial carcinoma documented in this encounter Results * (ABNORMAL) Comprehensive metabolic panel (non-fasting) (01/06/2020 12:07 PM EDT) Glucose Lvl 123 65 - 199 mg/dL [facility] Comment:Diabetes: >=200 mg/d L plus symptoms BUN 20(H) 8 - 18 mg/dL [facility] Creatinine 1.28(H) 0.70 - 1.20 mg/dL [facility] Sodium 137 135 - 145 mmol/L [facility] Potassium 4.2 3.5 - 5.0 mmol/L [facility] Comment: Please note: ??Patients with WBC >100,000 may have falsely elevated Potassium levels. ??For accurate Potassium quantification in these patients send serum separator tube (gold top) for subsequent determinations. ??Contact the Clinical Chemistry Laboratory if there are any questions. Chloride 99 98 - 107 mmol/L [facility] CO2 27 22 - 31 mmol/L [facility] Anion Gap 11 5 - 15 mmol/L [facility] Calcium 10.1 8.5 - 10.5 mg/dL [facility] Total Protein 7.0 6.1 - 8.0 gm/dL [facility] Albumin 4.2 3.2 - 5.2 gm/dL [facility] AST 15 0 - 30 unit/L [facility] ALT 8 0 - 30 unit/L [facility] Alk Phos 83 35 - 105 unit/L [facility] Total Bilirubin 0.4 0.2 - 1.3 mg/dL [facility] Estimated GFR 40(L) >=60 mL/min/1. 73 m?? [facility] Comment: The eGFR was calculated using the CKD-EPI equation. As with all creatinine based estimates of kidney function, eGFR values calculated with the CKD-EPI equation are not accurate in patients with acute kidney failure, extremes of body mass or the acutely ill. http://Stereomood/DHMCnkf eGFR 47(L) >=60 mL/min/1. 73 m?? [facility] Comment: The eGFR was calculated using the CKD-EPI equation. As with all creatinine based estimates of kidney function, eGFR values calculated with the CKD-EPI equation are not accurate in patients with acute kidney failure, extremes of body mass or the acutely ill. [email or web address] Blood specimen (specimen) 01/06/2020 12:07 PM EDT 01/06/2020 12:23 PM EDT Narrative Resulting Agency Comment Spec In Lab Ariel Do MD CHEMISTRY ORDERABLES Performing Organization Address City/State/[facility] Co de Phone Number [facility] [place] [address] documented in this encounter Visit Diagnoses Diagnosis Urothelial carcinoma Other malignant neoplasm without specification of site documented in this encounter Care Teams Financial Services Sales Representative Relationship Specialty Start Date End Date Dulce Hidalgo MD [address] [place] [address] PCP - General Family Medicine 09/30/16 documented as of this encounter
--- OUTSIDE RECORDS SUMMARY | 2024-01-11 13:18 | XMS_ITS | Encounter Summary ---
[place] [address] Care Team Providers Care Laryngologist Name Role Phone Dulce Hidalgo MD Primary Care Provider [phone] Encounter Details Date Type Department Care Team (Late st Contact Info) Description 02/17/2023 2:30 PM EDT - 02/17/2023 3:00 PM EDT [place] [address] Rosy Bustillo MD [facility] [place] [address] INJECTION, EPIDURAL, LUMBAR OR SACRAL (CAUDAL), WITH IMAGING GUIDANCE (VU 1.8) Social History Tobacco Use Types Packs/Day Years [...] Sign Reading Time Taken Comments Blood Pressure 142/43 02/17/2023 1:40 PM EDT Pulse 54 02/17/2023 1:40 PM EDT Temperature - - Respiratory Rate - - Oxygen Saturation 100% 02/17/2023 2:40 PM EDT Inhaled Oxygen Concentration - - Weight - - Height - - Body Mass Index - - documented in this encounter Medications at Time of Discharge Medication Sig Dispensed Refills Start Date End Date Jardiance 10 mg tablet Take 10 mg [...] tablets every 6 hrs as needed* 08/05/2010 gabapentin (Neurontin) 100 mg capsule Take 100 mg by mouth nightly. *taking 200 mg at night* 12/09/2022 10/06/2023 atenolol (TENORMIN) 50 mg tablet Take 50 mg by mouth daily. 08/05/2010 10/11/2023 simvastatin (ZOCOR) 10 mg tablet Take 10 mg by mouth daily. 08/05/2010 10/11/2023 documented as of this encounter H&P Notes * Heather Kinsey MD - 02/17/2023 12:49 PM EDT Patient Name: Isaura Aguiar Patient Age: 82 y.o. Birthdate: 1940 Admit date: (Not on file) Attending Physician: Rosy Bustillo MD [facility] PREPROCEDURE HISTORY AND PHYSICAL HPI: Isaura Aguiar is a 82 y.o. female who presents today for: Procedure: Lumbar Epidural Steroid Injection The history is obtained from the patient, and I have reviewed medical records provided by the referring physician, located in the electronic medical record to fill in gaps in the patient's recollection of events, treatments and outcomes. ROS: Patient denies recent fever, chills, infection, wounds, hospitalizations, ED visits, use of antibiotics. Pertinent positives and negatives otherwise noted in the HPI. I have reviewed the patient's past medical history, past surgical history, list of medications, allergies, family history and social history as documented in the electronic medical record. Physical Examination: There were no vitals taken for this visit. Pain Ratin/10 No pertinent changes are noted from previous assessment. Pulmonary/Chest: Effort normal. Skin: Skin is warm and dry. No rash noted. Not diaphoretic. Radiologic Data: Relevant imaging was reviewed today. Labs: No labs required Assessment and Plan: lumbar radiculopathy Plan to proceed with Lumbar Epidural Steroid Injection. Addressed all questions and concerns. Nursing intake/checklist reviewed. Medications holds confirmed. Risks and benefits discussed with patient. No contraindications to the procedure at this time, will proceed. Heather Kinsey MD Attending Physician [facility] [place] [address] / documented in this encounter Miscellaneous Notes * Op Note - Rosy Bustillo MD - 02/17/2023 2:19 PM EDT Pain Management Operative Note Patient Name: Isaura Aguiar : [id number] MR#: [id number] Case Date: 02/17/2023 Surgeon: Surgeon(s) and Role: * Rosy Bustillo MD - Primary * Heather Kinsey MD - Fellow - Assisting Present on Admission: Radiculopathy of lumbar region Postoperative diagnosis: Radiculopathy of lumbar region Procedure(s) (LRB): INJECTION, EPIDURAL, LUMBAR OR SACRAL (CAUDAL), WITH IMAGING GUIDANCE (WRVU 1.8) (Midline) Lumbar or Sacral Epidural Steroid Inj Sacral (Caudal) (05576) (Midline) LUMBAR INTERLAMINAR EPIDURAL STERIOID INJECTION PROCEDURE NOTE Ms. Isaura Aguiar has been referred to the [facility] Management Center for a lumbar epidural steroidinjection by Rafaela Alonzo APRN [facility] [place] [address]. The patient complains of low back pain with pain radiating down the bilateral leg. Ms. Aguiar was greeted by the nurse who verified patients name and . The patient was then taken to the fluoroscopy suite. Ms. Aguiar was interviewed and the medical record reviewed. There were no medical, pharmacologic, radiographic, or other structural contraindications to attempting fluoroscopically guided lumbar epidural steroid injection. Risks and potential side effects, as well as potential benefits of the procedure were reviewed with Ms. Aguiar. Her voiced concerns were addressed. After I was assured that informed consent was obtained, the patient consent form was signed. Standard time-out procedure was performed. Ms. Aguiar was placed in the prone position on the fluoroscopy table and automated blood pressure cuff and pulse oximeter applied. The skin entry point for entering/approaching the L5-S1 epidural space for the lumbar epidural steroid injection was marked. Following thorough chlorhexadine preparation of the skin and draping and 1% lidocaine infiltration of the skin entry point and subcutaneous tissues, an 18 gauge 5 inch Touhy needle was placed and advanced under fluoroscopic guidance and with loss of resistance technique into the L5-S1 epidural space. Needle tip placement and depth were aidedand confirmed by fluoroscopy. There was no paresthesia or return of blood or CSF through the needle. 3 cc's of Omnipaque 240 was injected with clear epidural spread confirmed with fluoroscopy. 15 mg of preservative-free Dexamethasone (10 mg/cc) was injected. This was followed by 1.5 cc of preservative-free 1% Lidocaine to flush the steroid out of the needle. There was not any unusual discomfort ex pressed by Ms. Aguiar. Ms. Aguiar's vital signs were stable throughout the procedure and were as recorded in nursing records. Follow up plans and appointments were discussed with Ms. Aguiar. The patient is set to follow up with Rafaela Alonzo APRN. Post procedure instruction was given as documented in nursing records and having met discharge criteria he was discharged from the [facility]. Comments: If this procedure is successful in helping with pain and improving her function, it can be completed a maximum of 3 times every 12 months. I have seen and examined the patient and reviewed the fellow's above history and I agree with the details as written. I was the attending physician supervising the fellow in the above care and I was present with the fellow for the entire procedure. Rosy Bustillo MD [facility] Assisant Professor of Anesthesiology [employer] [employer] [facility] [employer] [address] [address] / [facility] CC: Rafaela Alonzo APRN [facility] [place] [address] documented in this encounter Plan of Treatment Not on file documented as of this encounter Procedures Procedure Name Priority Date/Time Associated Diagnosis Comments Injection Dx/Ther Sbst Intrlmnr Lmbr/Sac W/Img Gdn (97241) 02/17/2023 2:12 PM EDT Right lumbar radiculopathy Spondylolisthesis at L4-L5 level Left lumbar radiculopathy Injection Dx/Ther Sbst Intrlmnr Lmbr/Sac W/Img Gdn (55695) 02/17/2023 2:12 PM EDT Right lumbar radiculopathy Spondylolisthesis at L4-L5 level Left lumbar radiculopathy INJECTION, EPIDURAL, LUMBAR OR SACRAL (CAUDAL), WITH IMAGING GUIDANCE Routine 02/17/2023 1:38 PM EDT Right lumbar radiculopathy Spondylolisthesis at L4-L5 level Left lumbar radiculopathy documented in this encounter Visit Diagnoses Diagnosis Right lumbar radiculopathy Thoracic or lumbosacral neuritis or radiculitis, unspecified Spondylolisthesis at L4-L5 level Left lumbar radiculopathy Thoracic or lumbosacral neuritis or radiculitis, unspecified Right lumbar radiculopathy Thoracic or lumbosacral neuritis or radiculitis, unspecified Spondylolisthesis at L4-L5 level Left lumbar radiculopathy Thoracic or lumbosacral neuritis or radiculitis, unspecified documented in this encounter Administered Medications Inactive Administered Medications - up to 3 most recent administrations Medication Order MAR Action Action Date Dose Rate Site dexAMETHasone (PF) (Decadron) (10 mg/mL) injection PRN, Starting on Mon02/17/23 at 1444, Until Mon02/17/23 at 1657, Intra-Operative (Intra-Procedure), Routine Given 02/17/2023 2:44 PM EDT 15 mg iohexoL (Omnipaque) (240 mg/mL) solution PRN, Starting on Mon02/17/23 at 1444, Until Mon02/17/23 at 1657, Intra-Operative (Intra-Procedure), Routine Given 02/17/2023 2:44 PM EDT 2 mLs lidocaine (pf) (Xylocaine) (20 mg/mL) 2% injection PRN, Starting on Mon02/17/23 at 1445, Until Mon02/17/23 at 1657, Intra-Operative (Intra-Procedure), Routine Given 02/17/2023 2:45 PM EDT 40 mg documented in this encounter Active and Recently Administered Medications Times are shown in EDT. PRN Medication Order 02/15/2023 02/16/2023 02/17/2023 dexAMETHasone (PF) (Decadron) (10 mg/mL) injection (CANCELED) PRN, Starting on Mon02/17/23 at 1444, Until Mon02/17/23 at 1657, Intra-Operative (Intra-Procedure), Routine 1444 (Given - Provid er: Heather Kinsey MD - Comment: LATISHA) iohexoL (Omnipaque) (240 mg/mL) solution (CANCELED) PRN, Starting on Mon02/17/23 at 1444, Until Mon02/17/23 at 1657, Intra-Operative (Intra-Procedure), Routine 1444 (Given - Provid er: Heather Kinsey MD - Comment: LATISHA) lidocaine (pf) (Xylocaine) (20 mg/mL) 2% injection (CANCELED) PRN, Starting on Mon02/17/23 at 1445, Until Mon02/17/23 at 1657, Intra-Operative (Intra-Procedure), Routine 1445 (Given - Provid er: Heather Kinsey MD - Comment: LATISHA) documented in this encounter Care Teams Laryngologist Relationship Specialty Start Date End Date Dulce Hidalgo MD [facility] [address] [place] [address] PCP - General Family Medicine 09/30/16 documented as of this encounter
--- OUTSIDE RECORDS SUMMARY | 2024-01-11 13:18 | XMS_ITS | Encounter Summary ---
[place] [address] Care Team Providers Care Naval Surface Fire Support Planner Name Role Phone Dulce Hidalgo MD Primary Care Provider [phone] Encounter Details Date Type Department Care Team (Latest Contact Info) Description 02/25/2019 10:30 AM EDT Laboratory Appointment Lab [address] [place] [phone] Urothelial carcinoma Social History Tobacco Use Types [...] Date/Time Associated Diagnosis Comments HC VENIPUNCTURE Routine 02/25/2019 9:50 AM EDT Urothelial carcinoma documented in this encounter Results * (ABNORMAL) Comprehensive metabolic panel (non-fasting) (02/25/2019 9:50 AM EDT) Glucose Lvl 117 65 - 199 mg/dL [facility] Comment:Diabetes: >=200 mg/d L plus symptoms BUN 14 8 - 18 mg/dL [facility] Creatinine 1.27(H) 0.70 - 1.20 mg/dL [facility] Sodium 133(L) 135 - 145 mmol/L [facility] Potassium 3.9 3.5 - 5.0 mmol/L [facility] Comment: Please note: ??Patients with WBC >100,000 may have falsely elevated Potassium levels. ??For accurate Potassium quantification in these patients send serum separator tube (gold top) for subsequent determinations. ??Contact the Clinical Chemistry Laboratory if there are any questions. Chloride 95(L) 98 - 107 mmol/L [facility] CO2 26 22 - 31 mmol/L [facility] Anion Gap 12 5 - 15 mmol/L [facility] Calcium 10.0 8.5 - 10.5 mg/dL [facility] Total Protein 7.4 6.1 - 8.0 gm/dL [facility] Albumin 3.9 3.2 - 5.2 gm/dL [facility] AST 18 0 - 30 unit/L [facility] ALT 10 0 - 30 unit/L [facility] Alk Phos 91 35 - 105 unit/L [facility] Total Bilirubin 0.5 0.2 - 1.3 mg/dL [facility] Estimated GFR 41(L) >=60 mL/min/1. 73 m?? [facility] Comment: The eGFR was calculated using the CKD-EPI equation. As with all creatinine based estimates of kidney function, eGFR values calculated with the CKD-EPI equation are not accurate in patients with acute kidney failure, extremes of body mass or the acutely ill. http://[employer]/DHMCnkf eGFR 47(L) >=60 mL/min/1. 73 m?? [facility] Comment: The eGFR was calculated using the CKD-EPI equation. As with all creatinine based estimates of kidney function, eGFR values calculated with the CKD-EPI equation are not accurate in patients with acute kidney failure, extremes of body mass or the acutely ill. http://[employer]/DHMCnkf Blood specimen (specimen) 02/25/2019 9:50 AM EDT 02/25/2019 10:11 AM EDT Narrative Resulting Agency Comment Spec In Lab Ariel Do MD CHEMISTRY ORDERABLES Performing Organization Address City/State/[facility] Co de Phone Number [facility] [place] [address] documented in this encounter Visit Diagnoses Diagnosis Urothelial carcinoma Other malignant neoplasm without specification of site documented in this encounter Care Teams Naval Surface Fire Support Planner Relationship Specialty Start Date End Date Dulce Hidalgo MD [address] [place] [address] PCP - General Family Medicine 09/30/16 documented as of this encounter
--- OUTSIDE RECORDS SUMMARY | 2024-01-11 13:18 | XMS_ITS | Encounter Summary ---
[place] [address] Care Team Providers Care Silk Screen Printer Machine Name Role Phone Dulce Hidalgo MD Primary Care Provider [phone] Reason for Visit * Diagnostic Test (Routine) - Closed Specialty Diagnoses / Procedures Referred By Christal lainez Referred To Contact Radiology Diagnoses Urothelial carcinoma Procedures CT Chest Abdomen Pelvis wo Contrast CT Chest Abdomen Pelvis w Contrast (Generic) Ariel Do MD [facility] [place] [address] [facility] [place] [address] Referral ID Status Reason Start Date Expiration Date V isits Requested Visits Authorized [id number] Closed Specialty Service Requested 08/21/2018 08/21/2019 1 1 Encounter Details Date Type Department Care Team (Latest Contact Info) Description 02/25/2019 9:21 AM EDT - 02/25/2019 9:57 AM EDT Hospital [place] [address] Ariel Do MD [facility] [place] [address] Urothelial carcinoma Discharge Disposition: Home Social History Tobacco Use [...] Procedure Name Priority Date/Time Associated Diagnosis Comments CT CHEST, ABDOMEN, PELVIS WO CONTRAST Routine 02/25/2019 12:10 PM EDT Urothelial carcinoma documented in this encounter Results * CT Chest Abdomen Pelvis wo Contrast (02/25/2019 12:10 PM EDT) Anatomical Region Laterality Modality Abdomen, Pelvis Computed Tomogra phy Impressions 02/25/2019 4:59 PM EDT No evidence of tumor recurrence or metastasis on this noncontrast study. Interval repair of ventral hernia. I have personally reviewed the image(s) and the residents interpretation and agree with the findings, Edwige Chung at 02/25/2019 4:59 PM Thank you for letting us participate in the care of this patient. For questions regarding this report, please contact the number below. ? 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 Oral contrast was administered.. COMPARISON: CT chest abdomen pelvis 07/09/2018 FINDINGS: The absence of intravenous contrast limits the evaluation of solid viscera and vasculature. Chest: Lungs and large airways: No pulmonary nodules. Stable peripheral interstitial markings consistent with interstitial disease. Pleura: No effusion. Heart/vasculature: Normal in size without pericardial effusion. Lymph nodes: No enlarged lymph nodes. Mediastinum and azra: Small hiatal hernia. Abdomen/pelvis: Liver: Normal contour Bile ducts: Nondilated. Gallbladder: No calcified gallstones. Normal caliber wall. Pancreas: Normal contour without ductal dilatation. Spleen: Normal contour. Adrenals: Normal contour. Kidneys: Right kidney is surgically absent. No evidence of recurrence in the surgical bed. Left kidney is normal in contour with stable fat within the renal sinus. Urinary Bladder: Collapsed. Vasculature: No aneurysm. Scattered calcifications within the abdominal aorta and iliac arteries. Lymph Nodes: No enlarged lymph nodes. Bowel: Nondilated, no wall thickening. ?? Peritoneum and mesentery: No ascites, free air, or loculated fluid collection. No mesenteric inflammation. Abdominal wall: Interval repair of ventral hernia with anticipated midline abdominal wall thickening. Reproductive organs: Normal. Osseous structures: No suspicious sclerotic or lytic osseous lesions. Chronic L4 vertebral body compression fracture. 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 Oral contrast was administered.. COMPARISON: CT chest abdomen pelvis 07/09/2018 FINDINGS: The absence of intravenous contrast limits the evaluation of solid visceraand vasculature. Chest: Lungs and large airways: No pulmonary nodules. Stable peripheralinterstitial markings consistent with interstitial disease. Pleura: No effusion. Heart/vasculature: Normal in size without pericardial effusion. Lymph nodes: No enlarged lymph nodes. Mediastinum and azra: Small hiatal hernia. Abdomen/pelvis: Liver: Normal contour Bile ducts: Nondilated. Gallbladder: No calcified gallstones. Normal caliber wall. Pancreas: Normal contour without ductal dilatation. Spleen: Normal contour. Adrenals: Normal contour. Kidneys: Right kidney is surgically absent. No evidence of recurrence inthe surgical bed. Left kidney is normal in contour with stable fat within therenal sinus. Urinary Bladder: Collapsed. Vasculature: No aneurysm. Scattered calcifications within the abdominalaorta and iliac arteries. Lymph Nodes: No enlarged lymph nodes. Bowel: Nondilated, no wall thickening. Peritoneum and mesentery: No ascites, free air, or loculated fluidcollection. No mesenteric inflammation. Abdominal wall: Interval repair of ventral hernia with anticipatedmidline abdominal wall thickening. Reproductive organs: Normal. Osseous structures: No suspicious sclerotic or lytic osseous lesions.Chronic L4 vertebral body compression fracture. IMPRESSION No evidence of tumor recurrence or metastasis on this noncontrast study. Interval repair of ventral hernia. I have personally reviewed the image(s) and the residents interpretationand agree with the findings, Edwige Chung at 02/25/2019 4:59 PM Thank you for letting us participate in the care of this patient. Forquestions regarding this report, please contact the number below. Electronically signed by: Edwige Chung [facility] [place] ([phone]),at 02/25/2019 4:59 PM Ariel Do MD IMG CT ORDERABLES documented in this encounter Visit Diagnoses Diagnosis Urothelial carcinoma Other malignant neoplasm without specification of site documented in this encounter Administered Medications Inactive Administered Medications - up to 3 most recent administrations Medication Order MAR Action Action Date Dose Rate Site iohexol (OMNIPAQUE) 350 mg/mL solution 0-50 mL 0-50 mL, Oral, ONCE PRN, 1 dose, Starting on Mon02/25/19 at 1210, Until Mon02/25/19 at 1210, Per Protocol, Warning Vesicant/Irritant Medication , Radiology Contrast, Routine Given 02/25/2019 12:10 PM EDT 50 mLs documented in this encounter Care Teams Silk Screen Printer Machine Relationship Specialty Start Date End Date Dulce Hidalgo MD [facility] [address] [place] [address] PCP - General Family Medicine 09/30/16 documented as of this encounter
--- OUTSIDE RECORDS SUMMARY | 2024-01-11 13:18 | XMS_ITS | Encounter Summary ---
[place] [address] Care Team Providers Care Business Analytics Manager Name Role Phone Dulce Hidalgo MD Primary Care Provider [phone] Encounter Details Date Type Department Care Team (Late st Contact Info) Description 02/07/2019 Telephone [place] [phone] Nuvia Basurto Social History Tobacco Use Types Packs/Day Years [...] encounter Miscellaneous Notes * Telephone Encounter - Ashok Uribe RN - 02/07/2019 3:59 PM EDT Rosy Talbert RN ?? 02/06/19 3:58 PM Note Call returned to Dr. Hidalgo's office. LM on Bertrand's VM ok for her to stop if she's feeling well. Asked for return call if any further questions. - Spoke with Bertrand and gave her same message that Lynne left on her voice mail yesterday. Bertrand verbalizes understanding. * Telephone Encounter - Nuvia Basurto - 02/07/2019 3:[address] Masters, Pt's PCP's office (Dr. Hidalgo) called re: pt's EGD in November. Dr. Hidalgo is wondering if pt should continue taking her Omeprazole now or not. Dr. Gwen Thurston' office- Ext. 1212 documented in this encounter Plan of Treatment Not on file documented as of this encounter Visit Diagnoses Not on filedocumented in this encounter Care Teams Business Analytics Manager Relationship Specialty Start Date End Date Dulce Hidalgo MD [address] [place] [address] PCP - General Family Medicine 09/30/16 documented as of this encounter
--- OUTSIDE RECORDS SUMMARY | 2024-01-11 13:18 | XMS_ITS | Encounter Summary ---
Author Organization [facility] Address [facility] [place] [address] Care Team Providers Care Customer Leader Name Role Phone Dulce Hidalgo MD Primary Care Provider [phone] Reason for Visit * Auth/Cert Specialty Diagnoses [...] Expiration Date Visits Re quested Visits Authorized [id number] 1 1 Encounter Details Date Type Department Care Team (Late st Contact Info) Description 09/30/2021 1:45 PM EDT Anesthesia [place] [address] José Miguel Garcia MD [facility] [place] [address] Anesthesia Record Procedure Summary Procedure Name Responsible Anesthesiologist Anesthesia Start Time Anesthesia Stop Time EGD,WITH DILATION ESOPHAGUS WITH BALLOON,< 30 MM (WRVU 2.67) (Trunk) José Miguel Garcia MD 09/30/21 1345 09/30/21 1434 Events Date Time Event Comment 09/30/2021 1342 1345 AN Verify 1345 Start 1345 An Start Data 1345 An Induction 1345 Anesthesia Ready 1431 an stop data 1434 Recovery or ICU Handoff Bernice ent care was transferred to the destination unit staff after review of the patient's medical history, current anesthetic/surgical status and plan, according to the Provider Handoff Checklist. 1434 Stop Meds Name Total IV Lidocaine 100 mg Propofol 50 mg Propofol INF 508.81 mg Lactated Ringers 0 mL * Agents Name O2 Auxiliary Flowmeter 1 * Blood No blood administrations on file. Lines, Drains, and Airways Type Details Placement Removal (RETIRED) Implanted Port - Single Lumen (non-apheresis) 12/21/16; 09; infraclavicular fossa, right; power injectable port; superior vena cava; Angel Tai NANCI; lot # [id number]; 10/06/23; 2029 (Not present upon assessment) 12/21/16923 by Catie Bradley RN 10/06/232029 by Terry Shankar RN Incision 07/17/18; 1007; abdo men; 02/07/22 (LDA cleanup utility RA#[id number]); 1715 (LDA cleanup utility RA#[id number]) 07/17/18 1007 by Mayra Turner RN 02/07/221714 by Rob Pugh Drain/Device Site 07/17/18; 1326; Righ t; lower; abdomen; collapsible closed device (19 fr); Dr. Michael Carroll; Sterile prep and drape; 10/06/23; 2030 (Not present upon assessment) 07/17/18 1326 by Mayra Turner RN 10/06/232030 by Terry Shankar RN Wound 07/18/18; 0937; antecubital; other (see comments); stage 2 LR infiltrate; 02/07/22 (LDA cleanup utility RA#[id number]); 1715 (LDA cleanup utility RA#[id number]) 07/18/18 0937 by Batool Alejo RN 02/07/22 171 by Rob Pugh (RETIRED) Peripheral IV Line - Single Lumen 09/30/21; 1325; median vein (underside of arm), left; lymn-pce-idnlye catheter system; 22 gauge; Jenni Benoit RN; 09/30/21; 1516 09/30/21 1325 by Rafaela Benoit RN 09/30/21 1516 by Kyra Montilla RN documented in this encounter Social History Tobacco Use Types Packs/Day Years Used Date Smoking Tobacco: Never Smokeless Tobacco: Never Alcohol Use Standard Drinks/Week Comments No 0 (1 standard drink = 0.6 oz pur e alcohol) Sex and Gender Information Value Date Recorded Sex Assigned at Not on file Gender Identity Not on file Sexual Orientation Not on file documented as of this encounter OR Notes * Anesthesia Postprocedure Evaluation - José Miguel Garcia MD - 09/30/2021 4:19 PM EDT Department of Anesthesiology Post-procedure Note Patient: Isaura Aguiar Procedure Summary Date: 09/30/21 Room / Location: [facility] ENDO 5 / [facility] ENDOSCOPY Anesthesia Start: 1345 Anesthesia Stop: 1434 Procedures: EGD,WITH DILATION ESOPHAGUS WITH BALLOON,< 30 MM (WRVU 2.77) (N/A Trunk) COLONOSCOPY, POLYPECTOMY, REMOVAL LESION BY SNARE (WRVU 4.67) (N/A Trunk) Diagnosis: (EGD and Colonoscopy ) (Sedation: Anesthesia ) (TImeframe: within 3 Weeks -- B.) (Indication: RAMEZ) (This procedure should be performed with: Any Endoscopist) Surgeons: Clive Figueroa MD Responsible Provider: José Miguel Garcia MD Anesthesia Type: MAC ASA Status: 3 All Anesthesia Providers: Anesthesiologist: José Miguel Garcia MD STACK MATCHER: William Arnold CRNA Vitals Value Taken Time BP 169/67 09/30/21 1511 Temp Pulse Resp 18 09/30/21 1511 SpO2 99 % 09/30/21 1512 Pain Level 0 09/30/21 1511 Vitals shown include unvalidated device data. Patient Location: PACU/[facility] Level of Consciousness: Awake and Alert Pain Management: Satisfactory Analgesia PONV: None Cardiovascular Status: At Baseline and Hemodynamically Stable Respiratory Status: At Baseline and Room Air Postoperative Fluid Status: Intravascular EUvolemia Possible Anesthetic Complications: NONE apparent at time of evaluation Final Primary Anesthesia Type: MAC (The anesthetic type performed was the same as planned.) Comments: * Anesthesia Preprocedure Evaluation - José Miguel Garcia MD - 09/30/2021 1:11 PM EDT Pre-Anesthesia Evaluation for: Isaura Aguiar a 80 y.o. female. Procedure(s): EGD, UPPER GI ENDOSCOPY COLONOSCOPY, DIAGNOSTIC Patient Active Problem List Diagnosis Date Noted ??? Ventral hernia 07/16/2018 ??? Dehydration 02/14/2017 ??? Neutropenia, drug-induced 01/03/2017 ??? Metastatic urothelial carcinoma 12/06/2016 ??? 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 Renal mass 10/06/2016 ??? 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 IT band syndrome 01/16/2014 ??? SK (seborrheic keratosis) 05/17/2012 ??? AK (actinic keratosis) 05/17/2012 ??? Osteopenia 01/22/2011 ??? 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 Benign essential tremor ??? Hypertension ??? Stage III Ovarian cancer ??? Breast cancer, stage 1 05/16/2006 Past Medical History: Diagnosis Date ??? Benign essential tremor ??? 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 Hypertension ??? Osteopenia 01/22/2011 ??? Stage III Ovarian cancer Past Surgical History: Procedure Laterality Date ??? CREATED BY INTERFACE partial bowel resection Procedure Date: Unknown ??? CREATED BY INTERFACE appendectomy Procedure Date: Unknown ??? CREATED BY INTERFACE Entered not Verified Procedure Date: 01/19/2010 ??? CREATED BY INTERFACE LYMPH NODE BIOPSY,DEEP AXILLARY / LEFT/RIGHT/SENTINEL NODE EXCISION Procedure Date: 06/02/2006 ??? CREATED BY INTERFACE Right meniscus repair Procedure Date: Unknown ??? CREATED BY INTERFACE SENTINEL NODE INJECTION / LEFT/RIGHT/BREAST Procedure Date: 06/02/2006 ??? CREATED BY INTERFACE SENTINEL NODE INJECTION / LEFT/RIGHT/BREAST Procedure Date: 06/02/2006 ??? CREATED BY INTERFACE JOANN/BSO Procedure Date: Unknown ??? PRO COLONOSCOPY, DIAGNOSTIC N/A 11/30/2018 COLONOSCOPY, DIAGNOSTIC performed by Noam Masters MD at [facility] ENDOSCOPY ??? PRO NEPHRECTOMY, W/PART. URETECTOMY Right 11/02/2016 @LAPAROSCOPY TOTAL NEPHROURETERECTOMY, ROBOTICS ASSIST (WRVU 25.36) performed by Ariel Do MDat [facility] MAIN OR ??? PRO REPAIR INCISIONAL HERNIA, REDUCIBLE N/A 07/17/2018 REPAIR INITIAL INCISIONAL OR VENTRAL HERNIA REDUCIBLE (WRVU 11.92) performed by Michael Carroll MD at [facility] MAIN OR ? ? PRO UNLISTED LAPAROSCOPIC PROC ABD PERITONEUM & OMENTUM N/A 11/02/2016 LAPAROSCOPIC, EXTENSIVE LYSIS ADHESIONS (WRVU *) performed by Ariel Do MD at [facility] MAIN OR ??? PRO UPPER GI ENDOSCOPY, BIOPSY N/A 11/30/2018 EGD WITH BIOPSY (WRVU 2.49) performed by Noam Masters MD at [facility] ENDOSCOPY Social History Tobacco Use ??? Smoking status: Never Smoker ??? Smokeless tobacco: Never Used Substance Use Topics ??? Alcohol use: No Social History Substance and Sexual Activity Drug Use No Allergies Allergen Reactions ??? Glucosamine-Chondroitn Sulf.Na Nausea Only Intense cramping too ??? Iv 3000 [Transparent Dressings] Rash Erythema, blisters ??? Sulfa (Sulfonamide Antibiotics) Other (See Comments) liver damage Medications: MAR and/or home medications have been reviewed. Physical Exam: Preprocedure Vitals Current as of 09/30/21 1311 BP: 158/56 Pulse: 60 Resp: 22 SpO2: 98 Temp: 37 ??C (98.6 ??F) Height: 152.4 cm (5') (09/30/21) Weight: 122.9 kg (271 lb) (09/30/21) BMI: 52.92 IBW: 45.5 kg (100 lb 4.9 oz) Last edited 09/30/[address] Airway Assessment: Mallampati: II TM distance: >3 FB Neck ROM: full Cardiovascular Assessment: Rhythm: regular Rate: normal Pulmonary Assessment: breath sounds clear to auscultation pulmonary exam normal Dental Assessment: - normal exam Misc Assessment: IV access: Peripheral line Last Filed Perioperative Cognitive Screening None Anesthesia Plan: ASA 3 MAC, with a(n) intravenous induction Isuara Aguiar is a 80 y.o. female who presents to endo suite for EGD PMH: BMI 53, HTN, BRCA2+, breast Ca, stage 3 ovarian Ca s/p JOANN/BSO and chemo in 1994, ureteral Ca s/p lap/robotic nephroureterectomy. Anesthesia Hx: Reports slow emergence on past anesthetics. Documented Easy mask, Gr1 w/ Mac3 METS > 4, denies card/pulm hx or symptoms. LABS: Lab Results Component Value Date HGB 10.2 (L) 07/19/2018 PLATELET 190 07/19/2018 NA 137 01/06/2020 K 4.2 01/06/2020 CREATININE 1.28 (H) 01/06/2020 Type and Screen: Lab Results Component Value Date ABORH O Pos 10/05/2016 Pt is appropriately NPO Anesthetic Plan: MAC Standard ASA monitors, IV Access Region - Other Informed Consent: Anesthetic plan and risks discussed with patient. Plan discussed with STACK MATCHER and attending. Anesthesia Screening documented in this encounter Plan of Treatment Not on file documented as of this encounter Visit Diagnoses Not on filedocumented in this encounter Administered Medications Inactive Administered Medications - up to 3 most recent administrations Medication Order MAR Action Action Date Dose Rate Site lactated ringers infusion Intravenous, CONTINUOUS PRN, Starting on Chloe 09/30/21 at 1345, Until Chloe 09/30/21 at 1434, Anesthesia Intra-op New Bag 09/30/2021 1:45 PM EDT lidocaine (pf) (Xylocaine) (20 mg/mL) 2% injection syringe Intravenous, PRN, Starting on Chloe 09/30/21 at 1351, Until Chloe 09/30/21 at 1434, Anesthesia Intra-op, Routine Given 09/30/2021 1:51 PM EDT 100 mg propofoL (Diprivan) (10 mg/mL) infusion Intravenous, CONTINUOUS PRN, Starting on Chloe 09/30/21 at 1351, Until Chloe 09/30/21 at 1434, Anesthesia Intra-op, Routine Rate/Dose Change 09/30/2021 2:14 PM EDT 100 mcg/kg/min 73.74 mL/hr Rate/Dose Change 09/30/2021 2:04 PM EDT 120 mcg/kg/min 88. 488 mL/hr Rate/Dose Change 09/30/2021 2:03 PM EDT 100 mcg/kg/min 73. 74 mL/hr propofoL (Diprivan) 10 mg/mL bolus injection (Anesthesia) Intravenous, PRN, Starting on Chloe 09/30/21 at 1351, Until Chloe 09/30/21 at 1434, Anesthesia Intra-op Given 09/30/2021 1:51 PM EDT 50 mg documented in this encounter Care Teams Customer Leader Relationship Specialty Start Date End Date Dulce Hidalgo MD [facility] [address] [place] [address] PCP - General Family Medicine 09/30/16 documented as of this encounter
--- OUTSIDE RECORDS SUMMARY | 2024-01-11 13:18 | XMS_ITS | Encounter Summary ---
Author Organization [facility] [place] [address] Care Team Providers Care Dock Operations Supervisor Name Role Phone Dulce Hidalgo MD Primary Care Provider [phone] Encounter Details Date Type Department Care Team (Late st Contact Info) Description 02/10/2021 Orders [place] [address] Ariel Do MD [facility] [place] [address] Lower urinary tract symptoms (LUTS); Cancer of [...] as of this encounter Visit Diagnoses Diagnosis Lower urinary tract symptoms (LUTS) Other symptoms involving urinary system Cancer of renal pelvis, right documented in this encounter Care Teams Dock Operations Supervisor Relationship Specialty Start Date End Date Dulce Hidalgo MD [facility] [address] [place] [address] PCP - General Family Medicine 09/30/16 documented as of this encounter
--- OUTSIDE RECORDS SUMMARY | 2024-01-11 13:18 | XMS_ITS | Encounter Summary ---
[place] [address] Care Team Providers Care Slip Mixer Name Role Phone Dulce Hidalgo MD Primary Care Provider [phone] Reason for Referral * Consultation (Routine) - Canceled Specialty Diagnoses / Procedures Referred By Contac t Referred To Contact [facility] Diagnoses Spinal stenosis, lumbar region, without neurogenic claudication Nimco Lopez MD [address] [place] [address] [facility] [place] [address] Referral ID Status Reason Start Date Expiration Date V isits Requested Visits Authorized [id number] Canceled Consult, Test & Treat 07/19/2022 07/19/2023 6 6 Encounter Details Date Type Department Care Team (Latest Contact Info) Description 07/19/2022 Transcribe Orders eDH Incoming Referrals [phone] Nimco Lopez MD [address] [place] [address] Spinal stenosis, lumbar region, without neurogenic claudication Social History Tobacco Use Types Packs/Day Years [...] Associated Diagnoses Orde r Schedule Referral to Pain Management Outpatient Referral Routine Spinal stenosis, lumbar region, without neurogenic claudication Ordered: 07/19/2022 documented as of this encounter Visit Diagnoses Diagnosis Spinal stenosis, lumbar region, without neurogenic claudication documented in this encounter Care Teams Slip Mixer Relationship Specialty Start Date End Date Dulce Hidalgo MD [facility] [address] [place] [address] PCP - General Family Medicine 09/30/16 documented as of this encounter
--- OUTSIDE RECORDS SUMMARY | 2024-01-11 13:18 | XMS_ITS | Encounter Summary ---
[place] [address] Care Team Providers Care Vial Gauger Name Role Phone Dulce Hidalgo MD Primary Care Provider [phone] Encounter Details Date Type Department Care Team (Late st Contact Info) Description 01/05/2023 Telephone [place] [phone] Noemi Andujar Social History Tobacco Use Types Packs/Day Years [...] encounter Miscellaneous Notes * Telephone Encounter - Noemi Anudjar - 01/10/2023 9:24 AM EDT Pain Management Center Temporary Anticoagulant Hold Documentation Patient: Isaura Aguiar [id number] Dulce Hidalgo to temporarily stop Xarelto for 3 days prior to requested Lumbar/Caudal Epidural Steroid Injection. See signed permission received from prescriber scanned intoelectronic record. Permission received for multiple procedures over 1 year: no PT/INR ordered: no Noemi Andujar * Telephone Encounter - Noemi Andujar - 01/05/2023 11:32 AM EDT Pain [facility] Center Temporary Anticoagulant Hold Initial Request Patient: Isaura Aguiar [id number] Request for the above named patient to temporarily stop Xarelto for 3 days prior to requested Lumbar/Caudal Epidural Steroid Injection has been faxed to: Dr. Dulce Hidalgo's office. Fax number: [phone] Fax confirmation that request received at the above named doctor's office: 01/05/2023 (date stamp on fax confirmation) 11:35 AM (time stamp on fax confirmation) Paper documentation in [facility] Management Center Scheduling Desk. Noemi Andujar documented in this encounter Plan of Treatment Not on file documented as of this encounter Visit Diagnoses Not on filedocumented in this encounter Care Teams Vial Gauger Relationship Specialty Start Date End Date Dulce Hidalgo MD [address] [place] [address] PCP - General Family Medicine 09/30/16 documented as of this encounter
--- OUTSIDE RECORDS SUMMARY | 2024-01-11 13:18 | XMS_ITS | Encounter Summary ---
Author Organization [facility] [place] [address] Care Team Providers Care Map Compiler Name Role Phone Dulce Hidalgo MD Primary Care Provider [phone] Encounter Details Date Type Department Care Team (Late st Contact Info) Description 03/06/2019 Orders [place] [address] Ariel Do MD [facility] [place] [address] [place] [address] Social History Tobacco Use Types Packs/Day Years [...] on filedocumented in this encounter Care Teams Map Compiler Relationship Specialty Start Date End Date Dulce Hidalgo MD [address] [place] [address] PCP - General Family Medicine 09/30/16 documented as of this encounter
--- OUTSIDE RECORDS SUMMARY | 2024-01-11 13:18 | XMS_ITS | Encounter Summary ---
[place] [address] Care Team Providers Care Mining Manager Name Role Phone Dulce Hidalgo MD Primary Care Provider [phone] Encounter Details Date Type Department Care Team (Late st Contact Info) Description 10/25/2022 1:00 PM EDT Office Visit [place] [address] Ariel Do MD [facility] [place] [address] Urothelial cancer Social History Tobacco Use Types Packs/Day Years [...] Sign Reading Time Taken Comments Blood Pressure 172/104 10/25/2022 1:57 PM EDT Pulse 61 10/25/2022 1:57 PM EDT Temperature - - Respiratory Rate - - Oxygen Saturation 99% 10/25/2022 1:57 PM EDT Inhaled Oxygen Concentration - - Weight - - Height - - Body Mass Index - - documented in this encounter Progress Notes * Griffin Maurer MD - 10/25/2022 1:00 PM EDT Images from the original note were not included. Patient Name: Isaura Aguiar Date of Service: 10/25/2022 Primary Care Provider: Dulce Hidalgo MD Reason for Visit: Isaura Aguiar is a 81 y.o. female with metastatic right upper ureteral [...] CT, Cysto, and CMP in 6 months. Still has issues with SBOs, most recently 1 week ago with NGT. She has no urinary symptoms. No hematuria, fevers, chills, nausea, vomiting since hospitalization. Bowel movements are loose from soft diet She is having issues walking, presumably from sciatica and has started prednisone for this. She has her appetite back and is eating. 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 The patient has been for [...] is >5 years out Cystoscopy in 1 year Attending Addendum I have seen the patient and reviewed the history and examination. I agree with the details as written. The assessment and plan were formulated in discussion with me and I agree with them as documented. Ariel Do documented in this encounter Plan of Treatment Not on file documented as of this encounter Visit Diagnoses Diagnosis Urothelial cancer Malignant neoplasm of other specified sites of urinary organs documented in this encounter Care Teams Mining Manager Relationship Specialty Start Date End Date Dulce Hidalgo MD [address] [place] [address] PCP - General Family Medicine 09/30/16 documented as of this encounter
--- OUTSIDE RECORDS SUMMARY | 2024-01-11 13:18 | XMS_ITS | Encounter Summary ---
Author Organization [facility] [place] [address] Care Team Providers Care Lodging Facilities Manager Name Role Phone Dulce Hidalgo MD Primary Care Provider [phone] Reason for Visit * Reason Comments Follow-up Encounter Details Date Type Department Care Team (Late st Contact Info) Description 01/06/2020 3:40 PM EDT Office [place] [phone] Ariel Do MD [facility] [place] [address] Cancer of renal pelvis, right Social History [...] on file documented as of this encounter Patient Instructions * Patient Instructions* Alec Yee LPN - 01/06/2020 3:40 PM EDT Instructions following Cystoscopy Activity: As tolerated by your comfort level. Fluids: You should increase your water today. Avoid coffee, tea and cola. You do not need to sprisp63 ounces of water today. Urination: You will likely have a small amount of blood in your urine for the next several days. This is normal; however, if you are passing large amounts of blood clots or are unable to void please call our office at [phone] before 5PM or [phone] after hours. Please call if: * you have copious blood in your urine * fevers greater than 101.3 F * you are unable to void The number for questions is [phone] before 5 PM weekdays and [phone] after 5 PM and weekends. Follow-up: With Dr. Do 6 months. documented in this encounter Progress Notes * Ariel Do MD - 01/06/2020 3:40 PM EDT See other note from [facility] documented in this encounter Plan of Treatment Not on file documented as of this encounter Visit Diagnoses Diagnosis Cancer of renal pelvis, right documented in this encounter Care Teams Lodging Facilities Manager Relationship Specialty Start Date End Date Dulce Hidalgo MD [address] [place] [address] PCP - General Family Medicine 09/30/16 documented as of this encounter
--- OUTSIDE RECORDS SUMMARY | 2024-01-11 13:18 | XMS_ITS | Encounter Summary ---
[place] [address] Care Team Providers Care Registered Public Health Nurse Name Role Phone Dulce Hidalgo MD Primary Care Provider [phone] Encounter Details Date Type Department Care Team (Late st Contact Info) Description 02/06/2019 Tele[place] [phone] Rosy Talbert RN Social History Tobacco Use Types Packs/Day [...] encounter Miscellaneous Notes * Telephone Encounter - Rosy Talbert RN - 02/06/2019 3:53 PM EDT Call returned to Dr. Hidalgo's office. LM on Bertrand's VM ok for her to stop if she's feeling well. Asked for return call if any further questions. * Telephone Encounter - Rosy Talbert RN - 02/06/2019 3:53 PM EDT ----- Message from Noam Masters MD sent at 02/04/2019 2:53 PM EDT ----- Lynne - she can stop it as long as she is feeling well - can you call their office and let them know? Thanks ----- Message ----- From: Nuvia Basurto Sent: 02/04/2019 11:48 AM EDT To: Noam Masters MD, # Hi Dr. Masters, Pt's PCP's office (Dr. Hidalgo) called re: pt's EGD in November. Dr. Hidalgo is wondering if pt should continue taking her Omeprazole now or not. Dr. Gwen Thurston' office- Ext. 1212 documented in this encounter Plan of Treatment Not on file documented as of this encounter Visit Diagnoses Not on filedocumented in this encounter Care Teams Registered Public Health Nurse Relationship Specialty Start Date End Date Dulce Hidalgo MD [facility] [address] [place] [address] PCP - General Family Medicine 09/30/16 documented as of this encounter
--- OUTSIDE RECORDS SUMMARY | 2024-01-11 13:18 | XMS_ITS | Encounter Summary ---
[place] [address] Care Team Providers Care Commercial Specialist Name Role Phone Dulce Hidalgo MD Primary Care Provider [phone] Encounter Details Date Type Department Care Team (Latest Contact Info) Description 10/19/2022 Travel Social History Tobacco Use Types Packs/Day [...] on filedocumented in this encounter Care Teams Commercial Specialist Relationship Specialty Start Date End Date Dulce Hidalgo MD [address] [place] [address] PCP - General Family Medicine 09/30/16 documented as of this encounter
--- OUTSIDE RECORDS SUMMARY | 2024-01-11 13:18 | XMS_ITS | Encounter Summary ---
[place] [address] Care Team Providers Care Lumber Checker Name Role Phone Dulce Hidalgo MD Primary Care Provider [phone] Encounter Details Date Type Department Care Team (Late st Contact Info) Description 11/30/2018 11:03 AM EDT Anesthesia Event [place] [address] Yomaira Weber MD [address] [place] [id number] Anesthesia Record Procedure Summary Procedure Name Responsible Anesthesiologist Anesthesia Start Time Anesthesia Stop Time COLONOSCOPY, DIAGNOSTIC (WRVU 3.26) (Trunk) Yomaira Weber MD 11/30/18 1103 11/30/18 1136 Events Date Time Event Comment 11/30/2018 1050 1103 AN Verify 1103 Start 1103 An Start Data 1107 An Induction 1107 Anesthesia Ready 1116 Break/Relief In Halina rosas CRNA 1135 an stop data 1136 Recovery or ICU Handoff Bernice ent care was transferred to the destination unit staff after review of the patient's medical history, current anesthetic/surgical status and plan, according to the Provider Handoff Checklist. 1136 Stop Meds Name Total IV Lidocaine 50 mg Propofol 150 mg Propofol INF 319.26 mg lactated ringers infusion 0 mL * Agents Name O2 * Blood No blood administrations on file. Lines, Drains, and Airways Type Details Placement Removal (RETIRED) Implanted Port - Single Lumen (non-apheresis) 12/21/16; 923; infraclavicular fossa, right; power injectable port; superior vena cava; Angel Lujan APRN; lot # [id number]; 10/06/23; 2029 (Not present upon assessment) 12/21/16923 by Catie Bradley RN 10/06/232029 by Terry Shankar RN Incision 07/17/18; 1007; abdo men; 02/07/22 (LDA cleanup utility RA#[id number]); 1715 (LDA cleanup utility RA#[id number]) 07/17/18 1007 by Mayra Turner RN 02/07/22 171 by Rob Pugh Drain/Device Site 07/17/18; 1326; Righ t; lower; abdomen; collapsible closed device (19 fr); Dr. Michael Carroll; Sterile prep and drape; 10/06/23; 2030 (Not present upon assessment) 07/17/18 1326 by Mayra Turner RN 10/06/232030 by Terry Shankar RN Wound 07/18/18; 0937; antecubital; other (see comments); stage 2 LR infiltrate; 02/07/22 (LDA cleanup utility RA#[id number]); 171 (LDA cleanup utility RA#[id number]) 07/18/18 0937 by Batool Alejo RN 02/07/22 171 by Rob Pugh documented in this encounter Social History Tobacco [...] OR Notes * Anesthesia Postprocedure Evaluation - Yomaira Weber MD - 11/30/2018 12:23 PM EDT Department of Anesthesiology Post-procedure Note Patient: Isaura Aguiar Procedure Summary Date: 11/30/18 Room / Location: [facility] 2 / [facility] Anesthesia Start: 1103 Anesthesia Stop: 1136 Procedures: COLONOSCOPY, DIAGNOSTIC (N/A Trunk) EGD WITH BIOPSY (WRVU 2.49) (N/A Trunk) Diagnosis: (Personal hx of polyps - tubular adenoma 10/17/11, epigastric pain) (Prep- Split) Surgeon: Noam Masters MD Responsible Provider: Yomaira Weber MD Anesthesia Type: MAC ASA Status: 2 All Anesthesia Providers: Anesthesiologist: Yomaira Weber MD FINANCIAL WELLNESS COACH: Rom Boyer CRNA Vitals Value Taken Time BP 175/66 11/30/2018 12:10 PM Temp Pulse Resp 18 11/30/2018 12:10 PM SpO2 99 % 11/30/2018 12:21 PM Pain Level 0 11/30/2018 12:10 PM Vitals shown include unvalidated device data. Patient Location: PACU/[facility] Level of Consciousness: Awake and Alert Pain Management: Satisfactory Analgesia PONV: None Cardiovascular Status: At Baseline and Hemodynamically Stable Respiratory Status: At Baseline and Room Air Postoperative Fluid Status: Intravascular EUvolemia Possible Anesthetic Complications: NONE apparent at time of evaluation Final Primary Anesthesia Type: MAC (The anesthetic type performed was the same as planned.) Comments: Yomaira Weber MD * Anesthesia Preprocedure Evaluation - Yomaira Weber MD - 11/30/2018 8:09 AM EDT Pre-Anesthesia Evaluation for: Isaura Aguiar a 78 y.o. female. Procedure(s): COLONOSCOPY, DIAGNOSTIC EGD, UPPER GI ENDOSCOPY Patient Active Problem List Diagnosis ??? Ventral hernia ??? Dehydration ??? Neutropenia, drug-induced ??? Metastatic urothelial carcinoma ??? Ureteral cancer ??? Renal mass ??? 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 IT band syndrome ??? SK (seborrheic keratosis) ??? AK (actinic keratosis) ??? Osteopenia Last Dexa scan August 06, 2009 showed T scores of -1.5 in the lumbar spine,m - 0.4 in the left hip, and 0.6 in the left femoral neck. ??? BRCA2 positive 2040 Jay in BRCA2. She has had bilateral mastectomies and bilateral oophorectomies. ??? Benign essential tremor ??? Hypertension ??? Stage III Ovarian cancer in 1994, treated with a JOANN/BSO, appendectomy, partial bowel resection, and chemotherapy ??? Breast cancer, stage 1 Ms. Aguiar presented [...] 2006 and June 2011. Past Medical History: Diagnosis Date ??? Benign [...] INTERFACE JOANN/BSO Procedure Date: Unknown ??? PRO LAP, ABD/PERIT/OMENTUM, UNLIST N/A 11/02/2016 LAPAROSCOPIC, EXTENSIVE LYSIS ADHESIONS (WRVU *) performed by Ariel Do MD at [facility] OR ??? PRO NEPHRECTOMY, W/PART. URETECTOMY Right 11/02/2016 @LAPAROSCOPY TOTAL NEPHROURETERECTOMY, ROBOTICS ASSIST (WRVU 25.36) [facility] ??? PRO REPAIR INCISIONAL HERNIA, REDUCIBLE N/A 07/17/2018 REPAIR INITIAL INCISIONAL OR VENTRAL HERNIA REDUCIBLE (WRVU 11.92) performed by Michael Carroll MD at [facility] MA[facility] OR Social History Tobacco Use ??? Smoking status: [...] home medications have been reviewed. Physical Exam: There were no vitals filed for this visit. There is no height or weight on file to calculate BMI. Airway Assessment: Mallampati: II TM distance: >3 FB Neck ROM: full Cardiovascular Assessment: Rhythm: regular Rate: normal cardiovascular exam normal Pulmonary Assessment: breath sounds clear to auscultation pulmonary exam normal Dental Assessment: - normal exam Misc Assessment: Anesthesia Plan: ASA 2 MAC, with a(n) intravenous induction 78 yo woman presents for screening colonoscopy. History notable for HTN, BRCA2+, breast Ca, stage 3ovarian Ca s/p JOANN/BSO and chemo in 1994, ureteral Ca s/p lap/robotic nephroureterectomy earlier this year. Easy mask, Gr1 w/ Mac3 Region - Other Informed Consent: Anesthetic plan and risks discussed with patient. Plan discussed with FINANCIAL WELLNESS COACH and attending. PAT Clinic Note documented in this encounter Plan of Treatment Not on file documented as of this encounter Visit Diagnoses Not on filedocumented in this encounter Administered Medications Inactive Administered Medications - up to 3 most recent administrations Medication Order MAR Action Action Date Dose Rate Site lactated ringers infusion 100 mL/hr, Intravenous, CONTINUOUS, Starting on Mon11/30/18 at 1030, Until Mon11/30/18 at 1221, Endoscopy (Day of Procedure) New Bag 11/30/2018 11:03 AM EDT lidocaine (PF) (XYLOCAINE) 100 mg/5 mL (2 %) injection PRN, Starting on Mon11/30/18 at 1107, Until Mon11/30/18 at 1136, Anesthesia Intra-op, Routine Given 11/30/2018 11:07 AM EDT 50 mg propofol (DIPRIVAN) 10 mg/mL bolus injection (Anesthesia) PRN, Starting on Mon11/30/18 at 1107, Until Mon11/30/18 at 1136, Anesthesia Intra-op Given 11/30/2018 11:23 AM EDT 50 mg Given 11/30/2018 11:07 AM EDT 100 mg propofol (DIPRIVAN) infusion CONTINUOUS PRN, Starting on Mon11/30/18 at 1107, Until Mon11/30/18 at 1136, Anesthesia Intra-op, Routine Rate/Dose Change 11/30/2018 11:26 AM EDT 40 mcg/kg/min 30 mL/hr Rate/Dose Change 11/30/2018 11:22 AM EDT 50 mcg/kg/min 37. 6 mL/hr Rate/Dose Change 11/30/2018 11:16 AM EDT 100 mcg/kg/min 75 .1 mL/hr documented in this encounter Care Teams Lumber Checker Relationship Specialty Start Date End Date Dulce Hidalgo MD [address] [place] [address] PCP - General Family Medicine 09/30/16 documented as of this encounter
--- OUTSIDE RECORDS SUMMARY | 2024-01-11 13:18 | XMS_ITS | Encounter Summary ---
[place] [address] Care Team Providers Care Fermenter Wine Name Role Phone Dulce Hidalgo MD Primary Care Provider [phone] Encounter Details Date Type Department Care Team (Late st Contact Info) Description 10/25/2022 2:20 PM EDT [place] [id number] Ariel Do MD [facility] [place] [address] Malignant neoplasm of kidney, unspecified laterality (Primary Dx) Social History Tobacco Use Types [...] as of this encounter Progress Notes * Ariel Do MD - 10/25/2022 2:20 PM EDT Seen with the resident. See his note documented in this encounter Procedure Notes * Ariel Do MD - 10/25/2022 2:20 PM EDTAssociated Order(s): CYSTOSCOPY Pre-Procedure Diagnose(s): Malignant neoplasm of kidney, unspecified laterality Procedure: Flexible Cystoscopy Surgeon: Ariel Maurer Preoperative Diagnosis: History of RIGHT Ureteral cancer [...] in normal position and effluxed clear urine.The RUP was absent. The bladder was normal. There were no bladder tumors, mucosal abnormalities or bladder stones. The cystoscope was removed. The patient tolerated the procedure without difficulty. There were no complications. Ariel Do documented in this encounter Plan of Treatment Not on file documented as of this encounter Procedures Procedure Name Priority Date/Time Associated Diagnosis Comments CYSTOSCOPY Routine 10/25/2022 2:20 PM EDT Malignant neoplasm of kidney, unspecified laterality documented in this encounter Results * Cystoscopy - Today (10/25/2022 2:20 PM EDT) Narrative Ariel Do MD - 10/25/2022 2:20 PM EDT Ariel Do MD ? 10/25/2022 ??3:07 PM Procedure: Flexible Cystoscopy Surgeon: Ariel Do + Cornel Maurer Preoperative Diagnosis: History of RIGHT Ureteral cancer [...] in normal position and effluxed clear urine.The RUP was absent. The bladder was normal. There were no bladder tumors, mucosal abnormalities or bladder stones. The cystoscope was removed. The patient tolerated the procedure without difficulty. There were no complications. Ariel Do Ariel Do MD PROCEDURE ORDERAB LES documented in this encounter Visit Diagnoses Diagnosis Malignant neoplasm of kidney, unspecified laterality- Primary documented in this encounter Administered Medications Inactive Administered Medications - up to 3 most recent administrations Medication Order MAR Action Action Date Dose Rate Site nitrofurantoin (Macrobid) capsule 100 mg 100 mg, Oral, ONCE, 1 dose, On Tu10/25/22 at 1500, DO NOT SPLIT CRUSH OR OPEN, Routine, Indication for (Active or Suspected): Prophylaxis Given 10/25/2022 2:45 PM EDT 100 mg documented in this encounter Care Teams Fermenter Wine Relationship Specialty Start Date End Date Dulce Hidalgo MD [facility] [address] [place] [address] PCP - General Family Medicine 09/30/16 documented as of this encounter
--- OUTSIDE RECORDS SUMMARY | 2024-01-11 13:18 | XMS_ITS | Encounter Summary ---
[place] [address] Care Team Providers Care Cisco Network Engineer Name Role Phone Dulce Hidalgo MD Primary Care Provider [phone] Encounter Details Date Type Department Care Team (Late st Contact Info) Description 09/06/2021 Tele[place] [phone] EstefaniSeptember Social History Tobacco Use Types Packs/Day Years [...] encounter Miscellaneous Notes * Telephone Encounter - EstefaniSeptember - 09/06/2021 10:26 AM EDT Isaura Aguiar [id number] Diagnosis/Indication: EGD and Colonoscopy Sedation: Anesthesia TImeframe: within 3 Weeks -- B. Indication: RAMEZ This procedure should be performed with: Any Endoscopist 1. Have you ever had a/an Upper Endoscopy & Colonoscopy before? Yes: Date 11/30/2018 If yes, did you have any problems with the procedure? No What type of sedation was used: Other: MAC 2. Do you take any blood thinners or have you been diagnosed with a bleeding disorder that increases your risk of bleeding with procedures? Yes: Type: XARELTO 3. Do you have a Pacemaker or Defibrillator device? No 4. Are you a diabetic? No 5. Do you have any Allergies to Eggs, Latex or Medications? Yes: see edh 6. Do you take any Oral Iron Supplements (Including multi-vitamins)? Yes (Iron) 7. Do you have a history of three or more abdominal surgeries? Yes 8. Have you had a problem with sedation or anesthesia? No 9. Do you use a c-pap machine or oxygen tank? Neither 10. Do you take prescription narcotic pain medications, including suboxone or methodone? No 11. Do you have a preference regarding the gender of your provider? No Preference 12. Is there any other information you would like to us to note for the provider and nursing team who will perform your case? No 13. Say to patient: You must have a responsible democrat who will drive you to your procedure, stay oncampus for the entire duration of your procedure, and drive you home from your procedure? *Please Verify the height and weight, and adjust if height and/or weight have changed* Estimated body mass index is 52.15 kg/m?? as calculated from the following: Height as of 07/16/18: 154.9 cm (5' 1). Weight as of 11/30/18: 125.2 kg (276 lb). Age:80 y.o. documented in this encounter Plan of Treatment Not on file documented as of this encounter Visit Diagnoses Not on filedocumented in this encounter Care Teams Cisco Network Engineer Relationship Specialty Start Date End Date Dulce Hidalgo MD [address] [place] [address] PCP - General Family Medicine 09/30/16 documented as of this encounter
--- OUTSIDE RECORDS SUMMARY | 2024-01-11 13:18 | XMS_ITS | Encounter Summary ---
Author Organization [facility] [place] [address] Care Team Providers Care Fishing Vessel Captain Name Role Phone Dulce Hidalgo MD Primary Care Provider [phone] Encounter Details Date Type Department Care Team (Latest Contact Info) Description 01/06/2020 11:50 AM EDT - 01/06/2020 11:59 PM EDT Hospital Encounter XRay at [address] [place] [phone] Ariel Do MD [facility] [place] [address] Urothelial carcinoma Discharge Disposition: Home Social History [...] Comments XR CHEST PA AND LATERAL Routine 01/06/2020 11:56 AM EDT Urothelial carcinoma documented in this encounter Results * XR Chest PA & Lateral (Generic) (01/06/2020 11:56 AM EDT) Anatomical Region Laterality Modality Chest N/A Digital Radiogra phy Impressions 01/06/2020 1:36 PM EDT No new pulmonary nodules seen. Thank you for letting us participate in the care of this patient. For questions regarding this report, please contact the number below. ? Electronically signed by: Joelle Johnston [facility] ([phone]), at 01/06/2020 1:36 PM Narrative 01/06/2020 1:36 [...] the number below. Electronically signed by: Joelle Jhonston [facility]([phone]), at 01/06/2020 1:36 PM Ariel Do MD IMG DX ORDERABLES documented in this encounter Visit Diagnoses Diagnosis Urothelial carcinoma Other malignant neoplasm without specification of site documented in this encounter Care Teams Fishing Vessel Captain Relationship Specialty Start Date End Date Dulce Hidalgo MD [facility] [address] [place] [address] PCP - General Family Medicine 09/30/16 documented as of this encounter
--- OUTSIDE RECORDS SUMMARY | 2024-01-11 13:18 | XMS_ITS | Encounter Summary ---
Author Organization [facility] [place] [address] Care Team Providers Care Music Rehabilitation Therapist Name Role Phone Dulce Hidalgo MD Primary Care Provider Encounter Details Date Type Department Care Team (Late st Contact Info) Description 02/22/2019 Orders [place] [address] Ariel Do MD [facility] [place] [address] Renal mass Social History Tobacco Use Types Packs/Day Years [...] as of this encounter Visit Diagnoses Diagnosis Renal mass Unspecified disorder of kidney and ureter documented in this encounter Care Teams Music Rehabilitation Therapist Relationship Specialty Start Date End Date Dulce Hidalgo MD [address] [place] [id number] PCP - General Family Medicine 09/30/16 documented as of this encounter
--- OUTSIDE RECORDS SUMMARY | 2024-01-11 13:18 | XMS_ITS | Encounter Summary ---
Author Organization [facility] Address [facility] [place] [address] Care Team Providers Care Food Runner Name Role Phone Dulce Hidalgo MD Primary Care Provider [phone] Reason for Visit * Auth/Cert Specialty Diagnoses [...] Expiration Date Visits Re quested Visits Authorized [id number] 1 1 Encounter Details Date Type Department Care Team (Late st Contact Info) Description 09/30/2021 12:31 PM EDT - 09/30/2021 3:25 PM EDT Hospital En[place] [address] Clive Figueroa MD [facility] [place] [address] Discharge Disposition: Home Social History Tobacco Use [...] Sign Reading Time Taken Comments Blood Pressure 169/67 09/30/2021 3:11 PM EDT Pulse 60 09/30/2021 12:59 PM EDT Temperature 37 ??C (98.6 ??F) 09/30/2021 12:59 PM EDT Respiratory Rate 18 09/30/2021 3:11 PM EDT Oxygen Saturation 92% 09/30/2021 3:10 PM EDT Inhaled Oxygen Concentration - - Weight 122.9 kg (271 lb) 09/30/2021 12:59 PM EDT Height 152.4 cm (5') 09/30/2021 12:59 PM EDT Body Mass Index 52.93 09/30/2021 12:59 PM EDT documented in this encounter Discharge Instructions * Discharge Instructions* Kyra Hobbs, RN - 09/30/2021 2:41 PM EDT Colonoscopy: [...] occurs, please contact your Doctor. Please call [phone] before 8pm Mon-Fri with problems, questions or concerns. If you call after 8pm or on weekends, call the Hospital at [phone] and ask to speak to the Dry Folder Cloth stone cleaner and the sweeper operator highways will contact that person for you. When should you call for help? Call [phone] anytime you think you may need emergency [...] any problems. Where can you learn more? [facility] View your After Visit Summary and more online at [email or web address] If you would like to provide feedback about your hospital experience, please call the Office of Patient and Family Relations at . If you have received this After Visit Summary in error, please immediately return it in person to the department, or notify the [facility] Privacy Office by calling toll free at between the hours of 8AM and 5PM to arrange for our retrieval of the documents at no cost to you. Content Version: 12.2 ?? 5010-9835 [employer]-drive. Care instructions adapted under license by [facility]. If you have questions about a medical condition or this instruction, always ask your healthcare professional. [employer] disclaims any warranty or liability for your [...] the day after the procedure, use an pxpu-lqu-bmscnff spray to numb your throat. Sucking on [...] occurs, please contact your Doctor. Please call [phone] before 8pm Mon-Fri with problems, questions or concerns. If you call after 8pm or on weekends, call the Hospital at [phone] and ask to speak to the Dry Folder Cloth stone cleaner and the sweeper operator highways will contact that person for you. When should you call for help? Call [phone] anytime you think you may need emergency [...] any problems. Where can you learn more? [email or web address] View your After Visit Summary and more online at [email or web address] If you would like to provide feedback about your hospital experience, please call the Office of Patient and Family Relations at . If you have received this After Visit Summary in error, please immediately return it in person to the department, or notify the [facility] Privacy Office by calling toll free at between the hours of 8AM and 5PM to arrange for our retrieval of the documents at no cost to you. Content Version: 12.2 ?? 6452-9325 i-drive. Care instructions adapted under license by [facility]. If you have questions about a medical condition or this instruction, always ask your healthcare professional. [employer] disclaims any warranty or liability for your [...] complication. Informed Consent signed by patient (or kiosk sales representative). documented in this encounter Plan of Treatment Not on file documented as of this encounter Procedures Procedure Name Priority Date/Time Associated Diagnosis Comments SURGICAL PATHOLOGY REPORT Routine 09/30/2021 2:31 PM EDT SPECIMEN TO PATHOLOGY Routine 09/30/2021 2:31 PM EDT SPECIMEN TO PATHOLOGY Routine 09/30/2021 2:31 PM EDT Colonoscopy, Remv Sania, Snare ([id number]) 09/30/2021 1:47 PM EDT EGD and Colonoscopy Sedation: Anesthesia TImeframe: within 3 Weeks -- B. Indication: RAMEZ This procedure should be performed with: Any Endoscopist Up Gi Endoscopy, Ball Dil, 30Mm ([id number]) 09/30/2021 1:47 PM EDT EGD and Colonoscopy Sedation: Anesthesia TImeframe: within 3 Weeks -- B. Indication: RAMEZ This procedure should be performed with: Any Endoscopist UPPER GI ENDOSCOPY Routine 09/30/2021 1: 27 PM EDT COLONOSCOPY Routine 09/30/2021 1:26 PM EDT documented in this encounter Results * Surgical Pathology Report (09/30/2021 2:31 PM EDT) FINAL DIAGNOSIS (AP) [id number] ? Location: 4T; EA10; A The signing pathologist has (i) examined the relevant preparation(s) for the specimen(s) and (ii) rendered or confirmed the diagnosis(es). . ?Surgical Pathology DIAGNOSIS A - Polyps x 4 ascending colon, resection: - ??Fragments of tubular adenoma. B - Descending colon polyp, resection: - ??Colonic mucosa, negative for diagnostic abnormality. CR-PX Electronically signed by: ?Vivian KWOK, Tyree Verified: ??10/04/2021 13:50 ??Pathologist Performed at: ??-[facility] Dept. of Pathology, [place], [place] SPECIMEN(S) SUBMITTED A - Polyps x [...] labeled B1. ??shb 10/04/2021 1:50 PM EDT [facility] GI Biopsy 09/30/2021 2:31 PM EDT 09/30/2021 2:31 PM EDT GI Biopsy 09/30/2021 2:31 PM EDT 09/30/2021 2:31 PM EDT Clive Figueroa MD PATHOLOGY/CYTOLOG Y ORDERABLES [facility] [place] [address] * Specimen to Pathology (09/30/2021 2:31 PM EDT) AP Specimen 09/30/2021 2:31 PM EDT 09/30/2021 2:31 PM EDT Narrative [facility] - 09/30/2021 2:31 PM EDT Specimen requisition ordered. ??Separate Pathology report to follow Clive Figueroa MD PATHOLOGY/CYTOLOG Y ORDERABLES Performing Organization Address [facility] [place] [address] * Specimen to Pathology (09/30/2021 2:31 PM EDT) AP Specimen 09/30/2021 2:31 PM EDT 09/30/2021 2:31 PM EDT Narrative [facility] - 09/30/2021 2:31 PM EDT Specimen requisition ordered. ??Separate Pathology report to follow Clive Figueroa MD PATHOLOGY/CYTOLOG Y ORDERABLES Performing Organization Address [facility] [place] [address] * UPPER GI ENDOSCOPY (09/30/2021 1:27 PM EDT) UPPER GI ENDOSCOPY [facility] Endoscopy ___ Procedure Date: 09/30/2021 1:27 PM ? Patient Name: Isaura Aguiar ? Date of : 1940 ? Age: 80 ? Order #: [id number] ? Instrument Name: [id number] ? ___ Procedure: ? Upper GI endoscopy Indications: ? Iron deficiency anemia Patient Profile: ? This is a 80 year old female. Providers: ? Clive Figueroa MD, Cynthia A. ? LOIS Burns, Henri Francsi MD: ?Dulce Hidalgo MD Medicines: ? Monitored [...] * COLONOSCOPY (09/30/2021 1:26 PM EDT) COLONOSCOPY [facility] Endoscopy Procedure Date: 09/30/2021 1:26 PM ? Patient Name: Isaura Aguiar ? Date of : 1940 ? Age: 80 ? Order #: [id number] ? Instrument Name: [id number] ? Procedure: ? Colonoscopy Indications: ? Iron [...] preparation was evaluated ? using the BBPS ([place] Bowel ? Preparation Scale) with scores of: [...] 48 hours ? then ok to resume (day ? 10/02/21). ? Attending Participation: ? I [...] Active and Recently Administered Medications Care Teams Food Runner Relationship Specialty Start Date End Date Dulce Hidalgo MD [address] [place] [address] [address] [place] [address] PCP - General Family Medicine 09/30/16 documented as of this encounter
--- OUTSIDE RECORDS SUMMARY | 2024-01-11 13:18 | XMS_ITS | Encounter Summary ---
Author Organization [facility] [place] [address] Care Team Providers Care Wool Grower Name Role Phone Dulce Hidalgo MD Primary Care Provider Reason for Visit * Reason Comments Follow-up Encounter Details Date Type Department Care Team (Late st Contact Info) Description 01/06/2020 3:40 PM EDT [place] [id number] Ariel Do MD [facility] [place] [address] Lower urinary tract symptoms (LUTS) (Primary Dx); Cancer of renal pelvis, right Social History [...] Sign Reading Time Taken Comments Blood Pressure 184/61 01/06/2020 3:34 PM EDT Pulse 56 01/06/2020 3:34 PM EDT Temperature - - Respiratory Rate [...] and cola. You do not need to ounces of water today. Urination: You will likely have a small amount of blood in your urine for the next several days. This is normal; however, if you are passing large amounts of blood clots or are unable to void please call our office at [phone] before 5PM or [phone] after hours. Please call if: * you have copious blood in your urine * fevers greater than 101.3 F * you are unable to void The number for questions is [phone] before 5 PM weekdays and [phone] after 5 PM and weekends. Follow-up: With Dr. Do documented in this encounter Progress Notes * Ariel Do MD - 01/06/2020 3:40 PM EDT Patient Name: Isaura Aguiar Date of Service: 01/06/2020 Primary Care Provider: Dulce Hidalgo MD Reason for Visit: Isaura Aguiar is a 79 y.o. female with metastatic right upper ureteral [...] and is eating well. She has been hospitalized 2 x since I saw her with [facility] (~ 5 x in total). 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 The patient has been for [...] No tumors 02/2019: Absent RUO. No tumors 12/2019: Lab values are reviewed 10/2017 1.28, eGFR [...] evaluation without the use of intravenous contrast. Impression: #1: Metastatic high grade Urothelial cancer [...] Procedure Notes * Ariel Do MD - 01/06/2020 3:40 PM EDTAssociated Order(s): CYSTOSCOPY Pre-Procedure Diagnose(s): Lower [...] Priority Date/Time Associated Diagnosis Comments CYSTOSCOPY Routine 01/06/2020 3:40 PM EDT Lower urinary tract symptoms (LUTS) documented in this encounter Results * Cystoscopy (01/06/2020 3:40 PM EDT) Narrative Ariel Do MD - 01/06/2020 3:40 PM EDT Ariel Do MD ? 01/06/2020 ??4:36 PM Procedure: Flexible Cystoscopy Surgeon: Ariel Do [...] Visit Diagnoses Diagnosis Lower urinary tract symptoms (LUTS)- Primary Other symptoms involving urinary system Cancer of renal pelvis, right documented in this encounter Care Teams Wool Grower Relationship Specialty Start Date End Date Dulce Hidalgo MD [address] [place] [address] PCP - General Family Medicine 09/30/16 documented as of this encounter
--- OUTSIDE RECORDS SUMMARY | 2024-01-11 13:18 | XMS_ITS | Encounter Summary ---
[place] [address] Care Team Providers Care Gas Pump Attendant Name Role Phone Dulce Hidalgo MD Primary Care Provider [phone] Reason for Referral * Diagnostic Test (Routine) - Closed Specialty Diagnoses / Procedures Referred By Contmaury t Referred To Contact Radiology Diagnoses Urothelial carcinoma Procedures CT Abdomen & Pelvis wo Contrast Ariel Do MD [facility] [place] [address] [facility] [place] [address] Referral ID Status Reason Start Date Expiration Date V isits Requested Visits Authorized [id number] Closed Specialty Service Requested 02/25/2019 02/25/2020 1 1 Reason for Visit * Diagnostic Test (Routine) - Closed Specialty Diagnoses / Procedures Referred By Christal t Referred To Contact Radiology Diagnoses Urothelial carcinoma Procedures CT Abdomen & Pelvis wo Contrast Ariel Do MD [facility] [place] [address] [facility] [place] [address] Referral ID Status Reason Start Date Expiration Date V isits Requested Visits Authorized [id number] Closed Specialty Service Requested 02/25/2019 02/25/2020 1 1 Encounter Details Date Type Department Care Team (Latest Contact Info) Description 01/06/2020 11:39 AM EDT - 01/06/2020 11:49 AM EDT Hospital Encounter CT Scan at [facility] [place] [address] Ariel Do MD [facility] [place] [address] Urothelial carcinoma Discharge Disposition: Home Social History [...] Name Priority Date/Time Associated Diagnosis Comments CT ABDOMEN AND PELVIS WO CONTRAST Routine 01/06/2020 2:30 PM EDT Urothelial carcinoma documented in this [...] below. ? Electronically signed by: Jitendra Mendiola [facility] ([phone]), at 01/06/2020 3:21 PM Narrative 01/06/2020 3:21 [...] number below. Electronically signed by: Jitendra Mendiola [facility]([phone]), at 01/06/2020 3:21 PM Ariel Do MD IMG CT ORDERABLES documented in this encounter Visit Diagnoses Diagnosis Urothelial carcinoma Other malignant neoplasm without specification of site documented in this encounter Care Teams Gas Pump Attendant Relationship Specialty Start Date End Date Dulce Hidalgo MD [address] [place] [address] PCP - General Family Medicine 09/30/16 documented as of this encounter
--- OUTSIDE RECORDS SUMMARY | 2024-01-11 13:18 | XMS_ITS | Encounter Summary ---
Author Organization [facility] [place] [address] Care Team Providers Care Clinical Laboratory Manager Name Role Phone Dulce Hidalgo MD Primary Care Provider [phone] Encounter Details Date Type Department Care Team (Late st Contact Info) Description 03/06/2019 [place] [address] Ariel Do MD [facility] [place] [address] Social History Tobacco Use Types Packs/Day Years [...] on filedocumented in this encounter Care Teams Clinical Laboratory Manager Relationship Specialty Start Date End Date Dulce Hidalgo MD [address] [place] [address] PCP - General Family Medicine 09/30/16 documented as of this encounter
--- OUTSIDE RECORDS SUMMARY | 2024-01-11 13:18 | XMS_ITS | Encounter Summary ---
Author Organization [facility] [place] [address] Care Team Providers Care Maintenance And Operations Supervisor Name Role Phone Dulce Hidalgo MD Primary Care Provider [phone] Encounter Details Date Type Department Care Team (Late st Contact Info) Description 02/22/2021 3:10 PM EDT Ancillary Procedure [place] [phone] Dulce Hidalgo MD [facility] [address] [place], [place] [id number] Social History Tobacco Use Types Packs/Day Years [...] Associated Diagnosis Comments FILM LIBRARY STORAGE ONLY CT CHEST ABDOMEN PELVIS Routine 02/22/2021 3:00 PM EDT documented in this encounter Results * Film Library- Storage Only CT Chest Abdomen Pelvis (02/22/2021 3:00 PM EDT) Narrative RAD - 02/22/2021 3:00 PM EDT This exam is auto-finalizing. It's purpose is for storage only. Dulce Hidalgo MD IMG FILM LIBRARY ORD ERABLES [place], [place] documented in this encounter Visit Diagnoses Not on filedocumented in this encounter Care Teams Maintenance And Operations Supervisor Relationship Specialty Start Date End Date Dulce Hidalgo MD [address] [place] [address] PCP - General Family Medicine 09/30/16 documented as of this encounter
--- OUTSIDE RECORDS SUMMARY | 2024-01-11 13:18 | XMS_ITS | Encounter Summary ---
[place] [address] Care Team Providers Care Community Service Director Name Role Phone Dulce Hidalgo MD Primary Care Provider [phone] Encounter Details Date Type Department Care Team (Latest Contact Info) Description 02/17/2023 1:36 PM EDT - 02/17/2023 2:57 PM EDT Hospital [place] [address] Rosy Bustillo MD [facility] [place] [place] [address] Right lumbar radiculopathy; Spondylolisthesis at L4-L5 level; Left lumbar radiculopathy Discharge Disposition: Home Social History Tobacco Use [...] 02/17/2023 12:49 PM EDT Patient Name: Isaura Agiuar Patient Age: 82 y.o. Birthdate: 1940 Admit date: (Not on file) Attending Physician: Rosy Bustillo MD [facility] PREPROCEDURE HISTORY AND [...] Attending Physician [facility] [place] [address] / documented in this encounter Miscellaneous Notes * Op Note - Rosy Bustillo MD - 02/17/2023 2:19 PM EDT Pain Management Operative Note Patient Name: Isaura Aguiar : [id number] MR#: [id number] Case Date: 02/17/2023 Surgeon: Surgeon(s) and Role: * Rosy Bustillo MD - Primary * Heather Kinsey MD - Fellow - Assisting Present on Admission: Radiculopathy of lumbar region Postoperative diagnosis: Radiculopathy of lumbar region Procedure(s) (LRB): INJECTION, EPIDURAL, LUMBAR OR SACRAL (CAUDAL), WITH IMAGING GUIDANCE (WRVU 1.8) (Midline) Lumbar or Sacral Epidural Steroid Inj Sacral (Caudal) (23552) (Midline) LUMBAR INTERLAMINAR EPIDURAL STERIOID INJECTION PROCEDURE NOTE Ms. Isaura Aguiar has been referred to the Pain Management Center for a lumbar epidural steroidinjection by Rafaela Alonzo APRN [facility] [place] [address]. The patient complains of low back pain [...] Pain Management Center Assisant Professor of Anesthesiology [facility] [employer] [address] [address] / [facility] CC: Rafaela Alonzo APRN [facility] [place] [address] documented in this encounter Plan of Treatment Not on file documented as of this encounter Procedures Procedure Name Priority Date/Time Associated Diagnosis Comments Injection Dx/Ther Sbst Intrlmnr Lmbr/Sac W/Img Gdn (94225) 02/17/2023 2:12 PM EDT Right lumbar radiculopathy Spondylolisthesis at L4-L5 level Left lumbar radiculopathy Injection Dx/Ther Sbst Intrlmnr Lmbr/Sac W/Img Gdn (32069) 02/17/2023 2:12 PM EDT Right lumbar radiculopathy [...] or radiculitis, unspecified documented in this encounter Active and Recently Administered Medications Times are shown in EDT. PRN Medication Order 02/15/2023 02/16/2023 02/17/2023 dexAMETHasone (PF) (Decadron) (10 mg/mL) injection (CANCELED) PRN, Starting on Mon02/17/23 at 1444, Until Mon02/17/23 at 1657, Intra-Operative (Intra-Procedure), Routine 1444 (Given - Provid er: Heather Kinsey MD - Comment: LESI) iohexoL (Omnipaque) (240 mg/mL) solution (CANCELED) PRN, Starting on Mon02/17/23 at 1444, Until Mon02/17/23 at 1657, Intra-Operative (Intra-Procedure), Routine 1444 (Given - Provid er: Heather Kinsey MD - Comment: LESI) lidocaine (pf) (Xylocaine) (20 mg/mL) 2% injection (CANCELED) PRN, Starting on Mon02/17/23 at 1445, Until Mon02/17/23 at 1657, Intra-Operative (Intra-Procedure), Routine 1445 (Given - Provid er: Heather Kinsey MD - Comment: LESI) documented in this encounter Care Teams Community Service Director Relationship Specialty Start Date End Date Dulce Hidalgo MD [address] [place] [address] PCP - General Family Medicine 09/30/16 documented as of this encounter
--- OUTSIDE RECORDS SUMMARY | 2024-01-11 13:18 | XMS_ITS | Encounter Summary ---
Author Organization [facility] [place] [address] Care Team Providers Care Hr Operations Advisor Name Role Phone Dulce Hidalgo MD Primary Care Provider Encounter Details Date Type Department Care Team (Late st Contact Info) Description 07/19/2022 Orders [place] [address] Ariel Do MD [facility] [place] [address] [place] [address] Malignant neoplasm of right ureter (Primary Dx) Social History Tobacco Use Types [...] as of this encounter Visit Diagnoses Diagnosis Malignant neoplasm of right ureter- Primary Malignant neoplasm of ureter documented in this encounter Care Teams Hr Operations Advisor Relationship Specialty Start Date End Date Dulce Hidalgo MD [facility] [address] [place] [id number] PCP - General Family Medicine 09/30/16 documented as of this encounter
--- OUTSIDE RECORDS SUMMARY | 2024-01-11 13:18 | XMS_ITS | Encounter Summary ---
[place] [address] Care Team Providers Care Abrasive Worker Name Role Phone Dulce Hidalgo MD Primary Care Provider [phone] Reason for Referral * Consultation (JEAN) - Closed Specialty Diagnoses / Procedures Referred By Christal lainez Referred To Contact Gastroenterology Diagnoses Iron deficiency anemia, unspecified iron deficiency anemia type History of small bowel obstruction History of adenomatous polyp of colon RAMEZ/ hx [facility]BO Procedures EGD and Colonoscopy Sedation: Anesthesia TImeframe: within 3 Weeks -- B. Indication: RAMEZ This procedure should be performed with: Any Endoscopist Dulce Hidalgo MD [address] [place] [address] [facility] Endoscopy [address] [place] [address] Referral ID Status Reason Start Date Expiration Date V isits Requested Visits Authorized [id number] Closed Consult, Test & Treat 08/27/2021 08/27/2022 6 6 Encounter Details Date Type Department Care Team (Latest Contact Info) Description 08/27/2021 Transcribe Orders eDH Incoming Referrals [phone] Dulce Hidalgo MD [address] [place] [address] Iron deficiency anemia, unspecified iron deficiency anemia type; History of small bowel obstruction; History of adenomatous polyp of colon Social History Tobacco Use Types Packs/Day Years [...] Priority Associated Diagnoses Order Schedule Referral to Gastroenterology Outpatient Referral Routine Iron deficiency anemia, unspecified iron deficiency anemia type History of small bowel obstruction History of adenomatous polyp of colon Ordered: 08/27/2021 documented as of this encounter Visit Diagnoses Diagnosis Iron deficiency anemia, unspecified iron deficiency anemia type History of small bowel obstruction Personal history of other diseases of digestive system History of adenomatous polyp of colon Personal history of colonic polyps documented in this encounter Care Teams Abrasive Worker Relationship Specialty Start Date End Date Dulce Hidalgo MD [address] [place] [address] PCP - General Family Medicine 09/30/16 documented as of this encounter
--- OUTSIDE RECORDS SUMMARY | 2024-01-11 13:19 | XMS_ITS | Encounter Summary ---
[place] [address] Care Team Providers Care Grey Roll Man Name Role Phone Dulce Hidalgo MD Primary Care Provider [phone] Reason for Referral * Diagnostic Test (Routine) - Closed Specialty Diagnoses / Procedures Referred By Christal lainez Referred To Contact Radiology Diagnoses Metastatic urothelial carcinoma Procedures CT Chest Abdomen Pelvis w Contrast (Generic) Danny Gordon MD [facility] [address] [place] [address] [facility] [place] [address] Referral ID Status Reason Start Date Expiration Date V isits Requested Visits Authorized [id number] Closed Specialty Service Requested 04/03/2018 04/03/2019 1 1 Reason for Visit * Reason Comments Follow-up Encounter Details Date Type Department Care Team (Late st Contact Info) Description 04/03/2018 2:00 PM EDT Office Visit Hematology/Oncology at [address] [address] Danny Gordon MD [facility] [address] [place] [address] Metastatic urothelial carcinoma; Anemia of chronic renal failure, stage 2 (mild); Elevated serum creatinine Social History Tobacco Use Types Packs/Day Years [...] Sign Reading Time Taken Comments Blood Pressure 147/55 04/03/2018 1:52 PM EDT Pulse 61 04/03/2018 1:52 PM EDT Temperature 36.8 ??C (98.2 ??F) 04/03/2018 1:52 PM ED T Respiratory Rate 16 04/03/2018 1:52 PM EDT Oxygen Saturation 98% 04/03/2018 1:52 PM EDT Inhaled Oxygen Concentration - - Weight 130.6 kg (288 lb) 04/03/2018 1:52 PM EDT Height 156 cm (5' 1.42) 04/03/2018 1:52 PM EDT Body Mass Index 53.68 04/03/2018 1:52 PM EDT documented in this encounter Progress Notes * Danny Gordon MD - 04/03/2018 2:00 PM EDT Images from the original note were not included. Diagnosis: Metastatic urothelial carcinoma HPI:Isaura Aguiar is 77 y.o.F referred to us by Yara Llamas for a consultation on new diagnosis of metastatic urothelial carcinoma. She initially presented in July right flank pain which led to CT scan ordered by Dr. Hidalgo. He scan revealed right hydronephrosis and distal ureter mass. She was seen by our urologist Dr. Do. Isaura underwent right robotic-assisted laparoscopic right nephroureterectomy on 11/02/2016. 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 Postop course was uneventful. She is here for discussion of adjuvant chemotherapy.Mrs. Aguiar completed concomitant XRT with capecitabine on June 06, 2017. She had 3 episodes of abdominal pain which lasted up to 4 hours in September 2017. Interval history: Mrs. Aguiar is in clinic for follow-up appointment. She complains dry cough whichshe relates to allergy. Overallwise, she feels well PMH: No interval changes since last visit Abdominal pain Acute PE on CT scan on Xarelto Left leg DVT on Xarelto Rectal bleeding on February 092016 Mediport placement Ovarian cancer in 1994 status post cisplatin and Cytoxan, left breast invasive ductal carcinoma in 2005 status post 5 years of anastrozole, BRCA2 mutation, High blood pressure, high cholesterol, knee replacement Patient Active Problem List Diagnosis ??? Dehydration ??? Neutropenia, drug-induced ??? Metastatic [...] anastrozole between June 2006 and June 2011. Social History: No interval changes since last visit Nonsmoker, does not drink alcohol, she used to work in [email or web address], retired 2002, she has 3 children. Family History: No Interval changes since last visit Brother had lung cancer, father from prostate cancer, her son and sister have BRCA2 mutation Allergies: Allergies Allergen Reactions ??? Glucosamine-Chondroitn Sulf.Na Nausea Only Intense cramping too ??? Iv 3000 [Transparent Dressings] Rash Erythema, blisters ??? Sulfa (Sulfonamide Antibiotics) Other (See Comments) liver damage Medications: Your Medications Accurate as of 04/03/18 2:24 PM. If you have any questions, ask your nurse or doctor. Some of the medications listed here do not show instructions, such as how often to take the medication. Ask your doctor or nurse how to use these medications. Specifically ask about these and similar medications: ?? atenolol (TENORMIN) 50 mg tablet ?? simvastatin (ZOCOR) 10 mg tablet ?? ACETAMINOPHEN (TYLENOL ORAL) Continued medications, unchanged Dose Details aspirin 81 mg Tbec Take 81 mg by mouth daily. 81 mg Refills: 0 atenolol 50 mg Tab Commonly known as: TENORMIN Refills: 0 calcium-vitamin D3 600 mg(1,500mg) -400 unit Tab Take 1 tablet by mouth daily. Reported on 01/03/2017 1 tablet Refills: 0 COMPAZINE ORAL Take by mouth. Refills: 0 docusate sodium 100 mg Cap Commonly known as: COLACE Take 100 mg by mouth daily. 100 mg Refills: 0 FIBER 6 1,000 mg Tab Take by mouth daily. Generic drug: dgir-qja-uet-ven-swuh-bvyr-pec Refills: 0 fluticasone 50 mcg/actuation Spsn Commonly known as: FLONASE 1 spray daily. 1 spray Refills: 0 hydroCHLOROthiazide 25 mg Tab Commonly known as: HYDRODIURIL Take 25 mg by mouth daily. 25 mg Refills: 0 lactobacillus rhamnosus (GG) 10 billion cell Cap Commonly known as: CULTURELLE Take 1 capsule by mouth daily. 1 capsule Refills: 0 LORazepam 0.5 mg Tab Commonly known as: ATIVAN take 1 tablet by mouth ONE HOUR PRIOR TO PET SCAN,MAY REPEAT AT TIME OF SCAN if needed Refills: 0 magnesium oxide 400 mg (241.3 mg magnesium) Tab Commonly known as: MAG-OX Take 1 tablet by mouth daily. 400 mg Quantity: 30 tablet Refills: 2 omeprazole 10 mg Cpdr Commonly known as: PriLOSEC Take 10 mg by mouth daily as needed. Daily as needed 10 mg Refills: 0 ondansetron 8 mg Tbdl Commonly known as: ZOFRAN-ODT You can take this 1 hour prior to radiation to prevent nausea, and 4 hours after radiation. You canotherwise take as needed every 8 hours. Quantity: 20 tablet Refills: PRN simvastatin 10 mg Tab Commonly known as: ZOCOR Refills: 0 TYLENOL ORAL Refills: 0 XARELTO 15 mg Tab Take 15 mg by mouth daily. Generic drug: rivaroxaban 15 mg Refills: 0 ZyrTEC 10 mg Tab Take 10 mg by mouth daily. Generic drug: cetirizine 10 mg Refills: 0 Review of Systems: Constitutional: Negative for fever, chills, activity change, fatigue and unexpected weight change. HEENT: Negative for sore throat, mouth sores and trouble swallowing. Mild mouth soreness but does baking soda/salt water rinses which works well. Eyes: Negative. Respiratory: Negative for cough, shortness of breath and wheezing. Cardiovascular: Negative for chest pain, palpitations and leg swelling. Gastrointestinal: Positive for episodes of abdominal pain Genitourinary: negative for blood or frequency Musculoskeletal: Negative. Skin: Negative. Neurological: Negative. Hematological: Negative for adenopathy. PE: General: AAAx3, in NAD Head: Normocephalic, without obvious abnormality, atraumatic Eyes: PERRL, conjunctiva/corneas clear, EOM's intact Nose: Nares normal, septum midline Throat: Lips, mucosa, and tongue normal; teeth and gums normal Neck: Supple, symmetrical, trachea midline, no adenopathy Back: Symmetric, no curvature, ROM normal. Lungs: Clear to auscultation bilaterally, respirations unlabored Heart: Regular rate and rhythm, S1, S2 normal, no murmur, rub or gallop Abdomen: Soft, non-tender, nondistended. Bowel sounds are normal Extremities: Extremities normal, atraumatic, no cyanosis or edema Skin: Skin color, texture, turgor normal, no rashes or lesions Lymph nodes: Cervical, supraclavicular, and axillary nodes normal Neurologic: Normal;infrastructure analyst grossly intact Vitals BP 147/55 (Patient Position: Sitting) Pulse 61 Temp 36.8 ??C (98.2 ??F) (Oral) Resp 16 Ht 156 cm (5' 1.42) Wt 130.6 kg (288 lb) SpO2 98% BMI 53.68 kg/m?? Weight Wt Readings from Last 3 Encounters: 04/03/18 130.6 kg (288 lb) 12/05/17 129.7 kg (286 lb) 11/14/17 126.1 kg (278 lb) Pathology: 11/02/16 SYNOPTIC REPORT Specimen ?Procedure: ??Nephroureterectomy, complete ?Specimen Laterality: ?? Right ?Tumor Size: ?? 4.0 cm Tumor ?Invasive Histologic Type: ?? Urothelial (transitional cell) carcinoma ?Histologic Grade: ?? High-grade Extent ?Microscopic Tumor Extension: ?? Tumor invades beyond muscularis into peripelvic ? fat or the renal parenchyma Margins ?Margin Involvement: ?? Margins(s) involved by carcinoma in situ / noninvasive ? high-grade urothelial carcinoma ? Margin(s): ??Periureteral soft tissue near renal pelvis Accessory Findings ?Lymph-Vascular Invasion: ?? Present ?Tumor Configuration: ?? Solid / nodule Lymph Nodes ?Number of Lymph Nodes Examined: ?? 3 ?Number of Lymph Nodes Involved: ?1 Stage (pTNM) ?Primary Tumor (pT): ?? pT3: Tumor invades beyond muscularis into peripelvic fat ? or the renal parenchyma ?Regional Lymph Nodes (pN): ?? pN2: Metastasis in a single regional lymph node, ? more than 2 cm but not more than 5 cm in greatest dimension, or multiple ? lymph nodes, none more than 5 cm in greatest dimension ?Distant Metastasis (pM): ?? Not applicable Additional Non-Tumor . DIAGNOSIS ?Additional Pathologic Findings: ?? Main tumor mass, distal ureter; three ? additional tumor nodules midureter (2) and proximal ureter (1) adjacent to ? renal pelvis ?Pathologic Findings In Ipsilateral Non-Neoplastic Renal Tissue: ?Hydronephrosis and chronic pyelonephritis and ureteritis Tumor Block(s): ?? B1, B10, B14 Normal Block(s): ?? B23 Labs: Results for ISAURA AGUIAR ( ) as of 04/03/2018 14:51 Ref. Range 03/20/2018 09:08 03/20/2018 15:27 WBC Latest Ref Range: 4.0 - 9.5 x10(3)/mcL 6.6 RBC Latest Ref Range: 4.00 - 5.21 x10(6)/mcL 3.78 (L) Hemoglobin Latest Ref Range: 11.7 - 15.5 gm/dL 11.1 (L) Hematocrit Latest Ref Range: 35.7 - 45.8 % 34.4 (L) MCV Latest Ref Range: 82.6 - 94.4 fL 91.0 MCH Latest Ref Range: 27.1 - 32.0 pg 29.4 MCHC Latest Ref Range: 31.7 - 35.0 gm/dL 32.3 RDWSD Latest Ref Range: 37.0 - 46.0 fL 49.6 (H) RDWCV Latest Ref Range: 11.5 - 14.1 % 14.9 (H) Platelets Latest Ref Range: 145 - 357 x10(3)/mcL 220 MPV Latest Ref Range: 7.6 - 12.9 fL 10.1 nRBC % Auto Latest Units: % 0.0 nRBC Abs Auto Latest Ref Range: 0.000 - 0.000 x10(3)/mcL 0.000 Neutr Abs (ANC) Latest Ref Range: 1.70 - 6.10 x10(3)/mcL 4.13 Neutrophils % Latest Units: % 62.8 Immature Gran % Latest Units: % 0.60 Lymphocytes % Latest Units: % 25.7 Monocytes % Latest Units: % 8.7 Eosinophils % Latest Units: % 1.7 Basophils % Latest Units: % 0.5 [place]ana Gran Abs Latest Ref Range: 0.00 - 0.04 x10(3)/mcL 0.04 Lymphocytes Abs Latest Ref Range: 0.9 - 3.2 x10(3)/mcL 1.7 Monocyte Abs Latest Ref Range: 0.3 - 0.9 x10(3)/mcL 0.6 Eosinophils Abs Latest Ref Range: 0.0 - 0.4 x10(3)/mcL 0.1 Basophils Abs Latest Ref Range: 0.0 - 0.1 x10(3)/mcL 0.0 Sodium Latest Ref Range: 135 - 145 mmol/L 141 Potassium Latest Ref Range: 3.5 - 5.0 mmol/L 4.5 Chloride Latest Ref Range: 98 - 107 mmol/L 101 CO2 Latest Ref Range: 22 - 31 mmol/L 26 Anion Gap Latest Ref Range: 5 - 15 mmol/L 14 BUN Latest Ref Range: 8 - 18 mg/dL 30 (H) Creatinine Latest Ref Range: 0.70 - 1.20 mg/dL 1.78 (H) POC Creatinine Latest Ref Range: 0.7 - 1.2 mg/dL 1.5 (A) eGFR Latest Ref Range: >=60 mL/min/1.73 m?? 27 (L) eGFR Latest Ref Range: >=60 mL/min/1.73 m?? 32 (L) POC Estimated GFR Latest Ref Range: 60 34 (A) Glucose Lvl Latest Ref Range: 65 - 199 mg/dL 98 Calcium Latest Ref Range: 8.5 - 10.5 mg/dL 9.6 Total Protein Latest Ref Range: 6.1 - 8.0 gm/dL 6.8 Albumin Latest Ref Range: 3.2 - 5.2 gm/dL 3.7 Total Bilirubin Latest Ref Range: 0.2 - 1.3 mg/dL 0.2 Alk Phos Latest Ref Range: 40 - 104 unit/L 112 (H) AST Latest Ref Range: 0 - 30 unit/L 17 ALT Latest Ref Range: 0 - 30 unit/L 12 Imagin03/20/18 CT CAP: IMPRESSION 1. There is no evidence of recurrent or metastatic urothelial carcinoma. 2. Wall thickening of several loops of small bowel is again seen and has not progressed. Prior irradiation in this area may be the cause of this finding. 3. Compression fracture of L4 has occurred since the previous CT scan. ?? 12/01/17 PET scan: IMPRESSION No recurrent or metastatic disease detected. ?? 10/31/17 CT scan: IMPRESSION Status post right nephrectomy. New small area of ill-defined soft tissue encasing the right external iliac artery and abutting the right external iliac vein contiguous to the thickened pelvic loops of small bowel. Given proximity to resected armen metastases this remains concerning for malignancy, recommend close interval follow-up and consideration for PET scan. Unexpected finding. 08/09/17 CT scan: IMPRESSION 1. No evidence of recurrent or metastatic disease. 2. Acute segmental pulmonary embolus in the right upper lobe. 04/07/17 PET scan: IMPRESSION No evidence of recurrent or metastatic disease. ?? 03/14/17 right lower extremity ultrasound: Impression: Calf vein thrombosis 12/21/16 PET scan: IMPRESSION No evidence of local tumor recurrence, regional armen or metastatic disease. ?? 09/22/16 CT AP: Left kidney is normal. Right kidney hydronephrotic to level of the bladder, with thickened enhancing distal ureteral mass extending into the bladder. Minimal residual parenchyma on the right. 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 Lucia completed 3 cycles of adjuvant cisplatin and gemcitabine followed by concurrent XRT and Xeloda. CT scan revealed new small area of ill-defined soft tissue encasing the right external iliac arteryand abutting the right external iliac vein contiguous to the thickened pelvic loops of small bowel. It suspicious for recurrence of cancer. On the other hand inflammationis on differential diagnosis list as well. She is symptomatic with episodes of abdominal pain last one in September 2017. She had surgery for small bowel obstruction many years ago. CT scan was personally reviewed. RICARDO. We will see her back in 3 months with blood work and CT scan. # anemia: Hg 11 Will monitor. # Rectal bleeding: follows with Dr. Hidalgo # h/o PE: h/o right calf DVT, on Xarelto. follows with Dr. Hidalgo. #Mediport: We will schedule removal Plan: 1. Observation 2. CT scan and blood work at [facility] 1 week prior next appointment 2. Next visit in 3 months The plan was discussed with the patient in details. All questions were answered to patient's satisfaction. documented in this encounter Plan of Treatment Not on file documented as of this encounter Results * CT Chest Abdomen Pelvis w Contrast (Generic) (07/09/2018 1:52 PM EST) Anatomical Region Laterality Modality Abdomen, Pelvis Computed Tomogra phy Impressions 07/09/2018 2:50 PM EST No evidence tumor recurrence Thank you for letting us participate in the care of this patient. For questions regarding this report, please contact the number below. ? Narrative 07/09/2018 2:50 PM EST EXAMINATION: CT CHEST ABDOMEN PELVIS W CONTRAST (GENERIC) CLINICAL HISTORY: Restaging of metastatic urothelial carcinoma TECHNIQUE: Helical CT of the chest, abdomen, and pelvis was performed following intravenous administration of 100 ml of Visipaque 320 Oral contrast was administered. COMPARISON: 03/20/2018 FINDINGS: Chest: Lungs and large airways: Stable increased peripheral interstitial markings consistent with interstitial lung disease. Pleura: No effusion. Heart/vasculature: Normal. Lymph nodes: No enlarged lymph nodes. Mediastinum and azra: Normal. Abdomen/pelvis: Liver: Normal size and attenuation without lesions. Bile ducts: Nondilated. Gallbladder: No calcified gallstones. Normal caliber wall. Pancreas: Normal attenuation without ductal dilatation. Spleen: Normal. Adrenals: Normal. Kidneys: RIGHT kidney is surgically absent. No evidence of recurrence in the renal bed.. LEFT kidney is normal. Urinary Bladder: Empty. Cannot be evaluated. Postsurgical changes. Vasculature: No aneurysm. Diffuse arthrosclerosis Lymph Nodes: ??No enlarged lymph nodes. Bowel: Nondilated, no wall thickening. ?? Peritoneum and mesentery: No ascites, free air, or loculated fluid collection. No mesenteric inflammation. Abdominal wall: Large anterior abdominal wall hernia containing both colon and small bowel with no evidence of strangulation or obstruction. Reproductive organs: Normal. Osseous structures: No suspicious lesions. L4 collapse with increasing sclerosis since 03/20/2018 Procedure Note Niki Martinez MD - 07/09/2018 EXAMINATION: CT CHEST ABDOMEN PELVIS W CONTRAST (GENERIC) CLINICAL HISTORY: Restaging of metastatic urothelial carcinoma TECHNIQUE: Helical CT of the chest, abdomen, and pelvis was performedfollowing intravenous administration of 100 ml of Visipaque 320 Oral contrast was administered. COMPARISON: 03/20/2018 FINDINGS: Chest: Lungs and large airways: Stable increased peripheral interstitialmarkings consistent with interstitial lung disease. Pleura: No effusion. Heart/vasculature: Normal. Lymph nodes: No enlarged lymph nodes. Mediastinum and azra: Normal. Abdomen/pelvis: Liver: Normal size and attenuation without lesions. Bile ducts: Nondilated. Gallbladder: No calcified gallstones. Normal caliber wall. Pancreas: Normal attenuation without ductal dilatation. Spleen: Normal. Adrenals: Normal. Kidneys: RIGHT kidney is surgically absent. No evidence of recurrence inthe renal bed.. LEFT kidney is normal. Urinary Bladder: Empty. Cannot be evaluated. Postsurgical changes. Vasculature: No aneurysm. Diffuse arthrosclerosis Lymph Nodes: No enlarged lymph nodes. Bowel: Nondilated, no wall thickening. Peritoneum and mesentery: No ascites, free air, or loculated fluidcollection. No mesenteric inflammation. Abdominal wall: Large anterior abdominal wall hernia containing both colonand small bowel with no evidence of strangulation or obstruction. Reproductive organs: Normal. Osseous structures: No suspicious lesions. L4 collapse with increasingsclerosis since 03/20/2018 IMPRESSION No evidence tumor recurrence Thank you for letting us participate in the care of this patient. Forquestions regarding this report, please contact the number below. Danny Gordon MD IMG CT ORDERABLES documented in this encounter Visit Diagnoses Diagnosis Metastatic urothelial carcinoma Secondary malignant neoplasm of other urinary organs Anemia of chronic renal failure, stage 2 (mild) Elevated serum creatinine Other nonspecific findings on examination of blood Metastatic urothelial carcinoma Secondary malignant neoplasm of other urinary organs documented in this encounter Care Teams Grey Roll Man Relationship Specialty Start Date End Date Dulce Hidalgo MD [address] [place] [address] PCP - General Family Medicine 09/30/16 documented as of this encounter
--- OUTSIDE RECORDS SUMMARY | 2024-01-11 13:19 | XMS_ITS | Encounter Summary ---
Author Organization [facility] [place] [address] Care Team Providers Care Binman Name Role Phone Dulce Hidalgo MD Primary Care Provider [phone] Encounter Details Date Type Department Care Team (Late st Contact Info) Description 09/14/2018 [place] [address] Ariel Do MD [facility] [place] [address] Social History Tobacco Use Types Packs/Day Years [...] on filedocumented in this encounter Care Teams Binman Relationship Specialty Start Date End Date Dulce Hidalgo MD [address] [place] [address] PCP - General Family Medicine 09/30/16 documented as of this encounter
--- OUTSIDE RECORDS SUMMARY | 2024-01-11 13:19 | XMS_ITS | Encounter Summary ---
Author Organization [facility] [place] [address] Care Team Providers Care Specialty Cook Name Role Phone Dulce Hidalgo MD Primary Care Provider [phone] Encounter Details Date Type Department Care Team (Late st Contact Info) Description 07/16/2018 2:10 PM EST Ancillary Procedure [place] [id number] Zachary Garcia MD [facility] [place] [address] Social History Tobacco Use Types Packs/Day Years [...] Diagnosis Comments FILM LIBRARY STORAGE ONLY CT ABDOMEN AND PELVIS Routine 07/16/2018 2:08 PM EST documented in this encounter Results * Film Library- Storage Only CT Abdomen & Pelvis (07/16/2018 2:08 PM EST) Narrative RAD - 07/16/2018 2:08 PM EST This exam is for storage only and is auto-finalizing. Zachary Garcia MD IMG FILM LIBRARY OR DERABLES [place], [place] documented in this encounter Visit Diagnoses Not on filedocumented in this encounter Care Teams Specialty Cook Relationship Specialty Start Date End Date Dulce Hidalgo MD [address] [facility] [address] [place] [address] PCP - General Family Medicine 09/30/16 documented as of this encounter
--- OUTSIDE RECORDS SUMMARY | 2024-01-11 13:19 | XMS_ITS | Encounter Summary ---
[place] [address] Care Team Providers Care Waybill Clerk Name Role Phone Dulce Hidalgo MD Primary Care Provider [phone] Reason for Visit * Reason Comments Hospital Transfer Abdominal Pain * Auth/Cert Specialty Diagnoses / Procedures Referred By Contac t Referred To Contact Diagnoses Ventral hernia Referral ID Status Reason Start Date Expiration Date Visits Re quested Visits Authorized [id number] 1 1 Encounter Details Date Type Department Care Team (Late st Contact Info) Description 07/17/2018 9:26 AM EST - 07/17/2018 11:34 AM EST Surgery [place] [id number] Kavitha Carroll MD [facility] [place] [address] REPAIR INITIAL INCISIONAL OR VENTRAL HERNIA REDUCIBLE (WRVU 11.92) Social History Tobacco Use Types Packs/Day Years [...] Sign Reading Time Taken Comments Blood Pressure 144/56 07/17/2018 7:00 AM EST Pulse 68 07/17/2018 7:00 AM EST Temperature 36.5 ??C (97.7 ??F) 07/17/2018 7:00 AM ES T Respiratory Rate 16 07/17/2018 7:00 AM EST Oxygen Saturation 97% 07/17/2018 7:00 AM EST Inhaled Oxygen Concentration - - Weight 131.6 kg (290 lb 2 oz) 07/16/2018 9:29 PM EST Height 154.9 cm (5' 1) 07/16/2018 9:29 PM EST Body Mass Index 54.82 07/16/2018 9:29 PM EST documented in this encounter Discharge Summaries * Kavon Valadez MD - 07/21/2018 9:31 AM EST Acute Care Surgery Discharge Summary Patient Name: Isaura Aguiar Patient Age: 77 y.o. : 1940 Attending Physician: Ariel Garcia MD Date of Admission: 07/16/2018 Date of Discharge: ID: 77 y.o.yo pt admitted on 07/16/2018 for Ventral Hernia Other In-hospital Issues: - Acute Pain Secondary Diagnosis: Past Medical History: Diagnosis Date ??? Benign essential tremor ??? 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 Hypertension ??? Osteopenia 01/22/2011 ??? Stage III Ovarian cancer Allergies: Allergies Allergen Reactions ??? Glucosamine-Chondroitn Sulf.Na Nausea Only Intense cramping too ??? Iv 3000 [Transparent Dressings] Rash Erythema, blisters ??? Sulfa (Sulfonamide Antibiotics) Other (See Comments) liver damage Operations/Procedures: 07/17/2018 Procedure(s): REPAIR INITIAL INCISIONAL OR VENTRAL HERNIA REDUCIBLE (WRVU 11.92) MODIFIER MESH,BARD SOFT MESH HPI: Isaura Aguiar is a 77 y.o. female with PMH ovarian cancer s/p JOANN BSO and cisplatin, cytoxan (1994), L Breast IDC s/p bilateral mastectomy (2005) (+ BRCA2 mutation), metastatic urothelial carcinoma s/p right nephroureterectomy 2014 who presents with symptoms of abdominal pain, nausea, vomiting which started at 11 pm last night. ?? She relates these symptoms to her known ventral hernia (seen on CT scan in 2018). She has had 4-5 episodes of abdominal pain and associated obstipation. She reports that her current symptoms feel like a very bad version of these previous events. Since 3 am this morning she has thrown up 3 times, mostly undigested food. Last episode of emesis was at 7 am. She has not had a bowel movement for the past 3 days. She reports some chills this morning. She denies fever, passing of blood in her stool orvomitus . ?? Hospital Course: 07/16: Admitted o/n - Kept NPO - Home Xaralto held 07/17: - Underwent repair of ventral hernia with mesh - No acute complications - Pain well controlled post-operatively 07/18: - POC was unremarkable overnight - Pain well controlled at present - Serosanguinous drain output, wound c/d/i - Encouraging ambulation, awaiting passage of gas, will keep on liquid clears for now - Will potentially restart home xaralto in the coming days - Follow up UoP later this afternoon - if adequate may pull ramos - based on renal indices bump, may need additional fluid bolus 07/19: - tolerating small amount of regular diet - able to get up and move around, pain better controlled - Home xaralto restarted - May pull drain tomorrow with anticipated discharge 07/20: - Tolerating regular diet - Awaiting BM (gave suppository and several bowel meds) - Will likely d'c tomorrow if BM achieved - Follow up scheduled with Gen surg - Patient will have Home VNA service for wound/drain care 07/21: - Had multiple bowel movements overnight - Pain well managed - Cleared for discharge. Isaura Aguiar's pain was adequately controlled, she was maintaining adequate oxygen saturation on room air, and was hemodynamically stable. She was tolerating a diet without abdominal complaints and voiding adequately. WBC and Hgb were stable. She was ambulating independently (with supervision). Isaura Aguiar was evaluated by the Surgery Team and deemed medically stable for discharge today. Plan: Neuro: - Pain well controlled on scheduled tylenol with PRN oxycodone ?? Pulm: - Continue to encourage IS - Saturating well on Room air -Restarted home xarelto ?? Cardiology: -Patient has remained hemodynamically stable - will restart home antihypertensives upon discharge ?? GI: - S/p hernia reduction with mesh - Tolerating regular diet - GABINO drain with serosang output - continue to follow, will keep post- discharge - Keep abd binder in place - Manage any post-op nausea with PRN zofran/compazine - Awaiting bowel movement -gave suppository today - no BM achieved ?? Renal: -No acute issues ?? Heme: Rivaroxaban 15 mg qd ?? ID: - ISAI ?? Dispo: Home with VNA for drain care Pending Lab Data at Discharge: None Pertinent Lab Data: Recent Labs 07/19/18 0948 WBC 8.5 HGB 10.2* HCT 32.9* PLATELET 190 Recent Labs 07/19/18 0948 NA 134* K 4.0 CL 97* CO2 23 BUN 17 CREATININE 1.50* GLUCOSE 140 CALCIUM 8.7 Microbiology Data: None Pertinent Imaging: No new imaging obtained this admission. Discharge Physical Examination: Vital Signs: Last value Range last 24hrs Temperature Temp: 36.8 ??C (98.2 ??F) Temp: [36.4 ??C (97.5 ??F)-37.6 ??C (99.6 ??F)] Heart Rate Heart Rate: 88 Heart Rate: [88-97] Blood Pressure BP: 149/58 BP: (148-196)/(43-66) Respiratory Rate Resp: 18 Resp: [16-18] SpO2 SpO2: 95 % SpO2: [95 %-100 %] Physical Exam: Gen:??A0x3, NAD, resting comfortably CVS: Regular rate Resp: breathing comfortably on Room air Abd: soft, appropriately tender, nondistended, incision c/d/i, abdominal binder in place. GABINO drain holding suction w/ serosang output.? Ext: SCDs in place, Current Medications: The following medications have been prescribed for you. If you notice any adverse reactions to yourmedications, please contact your primary care physician immediately or go to the nearest Emergency Department. Your Medications Some of the medications listed here do not show instructions, such as how often to take the medication. Ask your doctor or nurse how to use these medications. Specifically ask about these and similar medications: ?? atenolol (TENORMIN) 50 mg tablet ?? simvastatin (ZOCOR) 10 mg tablet ?? ACETAMINOPHEN (TYLENOL ORAL) New Medications Dose Details oxyCODONE 5 mg Tab Commonly known as: ROXICODONE Take 1 tablet by mouth every 6 hours as needed for Pain (To give prior to discharge.). 5 mg Quantity: 10 tablet Refills: 0 Continued medications, unchanged Dose Details aspirin 81 [...] Tab Take by mouth daily. Generic drug: fzza-fqg-zcw-wde-unpz-tuys-pec Refills: 0 fluticasone 50 mcg/actuation Spsn Commonly [...] Generic drug: cetirizine 10 mg Refills: 0 Disposition: Home with VNA Scheduled Appointments: The following appointments have been scheduled on your behalf: Future Appointments Date Time Provider Department Center 08/21/2018 9:00 AM Anni Multani, NANCI [facility] Outpatient Services/Studies: Referral to Home Health - at DISCHARGE Order Comments: DOCUMENTATION FOR VNA SERVICES (INCLUDING THOSE PATIENTS WITH MEDICARE COVERAGE REQUIRING HOME VNA SERVICES AND/OR HOSPICE SERVICES) PATIENT'S LOCATION: Isaura Aguiar [address] [place] [phone] (home) Cell: Telephone Information: Pharmacologist's Name: self In discussion with the attending physician, it is certified that this patient is under their care and that they, or a Nurse Practitioner,Clinical Nurse specialist or Physician Horticulture Instructor who is working directly with them, had a face to face encounter that meets the physician face to face encounter requirements with this patient on 07/18/2018 The encounter with the patient was in whole, or in part, for the following medical condition, whichis the primary reason for home health care services: ventral hernia repair In discussion with the provider, it is certified that, based on their findings, the following services are medically necessary for home health services. To provide the following care/treatments with the clinical findings supporting the need for services as follows: HOME CARE ORDERS: RN ORDERS:Assess wound or incision, vital signs, cardiopulmonary status, nutrition, hydration, elimination, meds effectiveness and management; reinforce education re health issues HOME HEALTH CARE AGENCY: [facility]. PHONE: [phone] FAX: [phone] Start of care: within 24 to 48 hrs of discharge FOR MEDICARE ONLY: (please delete this section if not Medicare) In discussion with the attending physician, it is certified that the clinical findings support thatthis patient is homebound because absences from home require considerable and taxing effort due to:requires assist of one to leave home safely due to general weakness from surgery Please note that any additional orders needs or changes will need to be obtained from this patient's PCP: MD Veronique Jones [address] / [facility] [id number] All VNA agencies which cover the area of patient's residence have been reviewed, either verbally ernestina writing, and patient/family have chosen the home health care agency noted Question Response Notes Agency name and contact information [facility] Patient location post discharge home What services are requested Registered Nurse Responsible MD post discharge contact info pcp Special Instructions Given to Patient at Discharge:. An After Visit Summary was printed and given to the patient. Patient Instructions Discharge Instructions You were were admitted and treated for the following diagnosis: Ventral Hernia. This was repaired surgically and mesh was placed. CALL YOUR PHYSICIAN IF: 1. You have a fever greater than 101F 2. You have diarrhea or vomiting for >24 hours, or stop having bowel movements and passing flatus 3. You have worsening pain, not controlled with your pain medication. 4. You develop redness, swelling, or new drainage from your wounds Prescriptions: Oxycodone 5mg - to be taken up to every 6 hours as needed for pain. Follow up: You have an appointment scheduled on 08/21 in the [facility] - time/details includedbelow. This is for routine post-operative follow up. Additionally, once the output from your drain is less than 30 mililiters over a two-day stretch (ask VNA for help with these measurements) you are to call the [facility] at to arrange for drain removal. Finally, please see your Primary Care Physician at your earliest convenience to discuss this admission and specifically go over blood thinning medication (Xaralto). Narcotics: You may be given a prescription for a narcotic medication immediately following your surgery. Narcotics are prescribed for short-term (1-3 days) use to help treat your pain. Narcotics do not reduce inflammation and it is inflammation that is usually a major cause of pain after surgery. Narcotics have many side effects such as constipation, lightheadedness, dizziness, sedation, confusion, nausea and vomiting. Driving and the use of alcohol are not recommended while you are using narcotic pain medications. Non-steroidal anti-inflammatories (NSAIDS) such as aspirin, Aleve and ibuprofen (Advil, Motrin) aremedications that reduce pain and inflammation. To reduce your chance of side effects, it is recommended that you use Tylenol as needed for pain and then NSAIDs and use narcotics as the last resort. Alternative means of pain relief such as rest and relaxation, positioning, as well as decreasing stimulants such as coffee, tea, soft drinks, and nicotine may also help to alleviate pain. If you continue to experience significant pain 4-5 days after your discharge, it may be necessary to be re-evaluated by your physician. Driving Restrictions: - No driving if you are too sore to enter or exit your vehicle comfortably, or if you are too sore to easily check your blind spot. No driving while using prescription pain medications Activities: - Discuss return to work or school with your provide at your follow up appointment in the General Surgery clinic. - Increase your activity slowly. If it hurts don't do it, but try again the following day. - You may tire easily, so frequent naps may be necessary.. - Talk with your doctor about when you can return to work or school. - You may take a shower but have someone nearby in case you need help. Diet: Eat a well-balanced diet. Fresh fruits, vegetables and fiber-containing foods are recommended. Thiswill assist in wound healing. Recommendations: - Take it easy for two weeks. Remember, If it hurts, don't do it. - Take several slow, short walks each day for the first two weeks, and gradually increase your distance. We recommend at least 4 times a day. Wound Care: - You can shower per usual routine - Do not submerge wounds under water (avoid spas, pools and bathtubs) until fully healed. - Do not use creams, oils, or ointments on the wound. - See follow-up appointments for removal of sutures/baldo. Comfort: - Some soreness can be expected. - Take your pain medication as needed and prescribed. - Taper use of pain medication as pain lessens. Follow up appointments: 1. You will have follow-up appointments at [facility] as indicated in the ???Future Appointments and Orders?? section of your discharge summary. If X-rays or CT scans have been ordered for you prior to this appointment you will need to report to the Radiology department, desk 3T, 1 hour prior to your clinic appointment time. 2. If you do not have a scheduled follow-up appointment listed at the time of discharge, you will be notified of your scheduled appointment on the next business day. Please call [phone] if you do not hear from us by that time, as your timely follow-up is very important to us. Your care was managed by the Trauma and Acute Care Surgery Team at [facility]. If you have any questions or concerns, please feel free to contact us. Provider Contact Information: General Surgery: [facility] (after business hours): CC: Ventral Hernia Primary Care Physician: Dulce Hidalgo MD Future Appointments Date Time Provider Department Center 08/21/2018 9:00 AM Anni Multani APRN [facility] General Instructions None Your care was managed by the Trauma and Acute Care Surgery Team at [facility]. If you have any questions or concerns, please feel free to contact us. Provider Contact Information: General Surgery Clinic: Nurses line for questions: [facility] (after business hours): CC: Ventral Hernia Dulce Hidalgo MD [facility] Anni Multani APRN Signed: Kavon Valadez MD Department of Surgery 07/21/2018 Acute Care Surgery Pager [phone] documented in this encounter Discharge Instructions * Patient Instructions* Kavon Valadez MD - 07/21/2018 9:10 AM EST Discharge Instructions You were were admitted and treated for the following diagnosis: Ventral Hernia. This was repaired surgically and mesh was placed. CALL YOUR PHYSICIAN IF: 1. You have a fever greater than 101F 2. You have diarrhea or vomiting for >24 hours, or stop having bowel movements and passing flatus 3. You have worsening pain, not controlled with your pain medication. 4. You develop redness, swelling, or new drainage from your wounds Prescriptions: Oxycodone 5mg - to be taken up to every 6 hours as needed for pain. Follow up: You have an appointment scheduled on 08/21 in the [facility] - time/details includedbelow. This is for routine post-operative follow up. Additionally, once the output from your drain is less than 30 mililiters over a two-day stretch (ask VNA for help with these measurements) you are to call the [facility] at to arrange for drain removal. Finally, please see your Primary Care Physician at your earliest convenience to discuss this admission and specifically go over blood thinning medication (Xaralto). Narcotics: You may be given a prescription for a narcotic medication immediately following your surgery. Narcotics are prescribed for short-term (1-3 days) use to help treat your pain. Narcotics do not reduce inflammation and it is inflammation that is usually a major cause of pain after surgery. Narcotics have many side effects such as constipation, lightheadedness, dizziness, sedation, confusion, nausea and vomiting. Driving and the use of alcohol are not recommended while you are using narcotic pain medications. Non-steroidal anti-inflammatories (NSAIDS) such as aspirin, Aleve and ibuprofen (Advil, Motrin) aremedications that reduce pain and inflammation. To reduce your chance of side effects, it is recommended that you use Tylenol as needed for pain and then NSAIDs and use narcotics as the last resort. Alternative means of pain relief such as rest and relaxation, positioning, as well as decreasing stimulants such as coffee, tea, soft drinks, and nicotine may also help to alleviate pain. If you continue to experience significant pain 4-5 days after your discharge, it may be necessary to be re-evaluated by your physician. Driving Restrictions: - No driving if you are too sore to enter or exit your vehicle comfortably, or if you are too sore to easily check your blind spot. No driving while using prescription pain medications Activities: - Discuss return to work or school with your provide at your follow up appointment in the General Surgery clinic. - Increase your activity slowly. If it hurts don't do it, but try again the following day. - You may tire easily, so frequent naps may be necessary.. - Talk with your doctor about when you can return to work or school. - You may take a shower but have someone nearby in case you need help. Diet: Eat a well-balanced diet. Fresh fruits, vegetables and fiber-containing foods are recommended. Thiswill assist in wound healing. Recommendations: - Take it easy for two weeks. Remember, If it hurts, don't do it. - Take several slow, short walks each day for the first two weeks, and gradually increase your distance. We recommend at least 4 times a day. Wound Care: - You can shower per usual routine - Do not submerge wounds under water (avoid spas, pools and bathtubs) until fully healed. - Do not use creams, oils, or ointments on the wound. - See follow-up appointments for removal of sutures/baldo. Comfort: - Some soreness can be expected. - Take your pain medication as needed and prescribed. - Taper use of pain medication as pain lessens. Follow up appointments: 1. You will have follow-up appointments at [facility] as indicated in the ???Future Appointments and Orders?? section of your discharge summary. If X-rays or CT scans have been ordered for you prior to this appointment you will need to report to the Radiology department, desk 3T, 1 hour prior to your clinic appointment time. 2. If you do not have a scheduled follow-up appointment listed at the time of discharge, you will be notified of your scheduled appointment on the next business day. Please call [phone] if you do not hear from us by that time, as your timely follow-up is very important to us. Your care was managed by the Trauma and Acute Care Surgery Team at [facility]. If you have any questions or concerns, please feel free to contact us. Provider Contact Information: General Surgery: [facility] (after business hours): CC: Ventral Hernia Primary Care Physician: Dulce Hidalgo MD Future Appointments Date Time Provider Department Center 08/21/2018 9:00 AM Anni Multani APRN [facility] * Attachments The following attachments cannot be sent through Care Everywhere. * Abdominal Hernia Repair: Post-op (Czech) documented in this encounter Medications at Time [...] 08/05/2010 10/11/2023 documented as of this encounter Progress Notes * Zahra Fink RN - 07/21/2018 9:58 AM EST Reviewed discharge instructions with pt and pt's spouse both expressing an understanding. All questions posed were answered to their satisfaction. * Kavon Valadez MD - 07/20/2018 6:53 PM EST Acute Care Surgery Daily Progress Note ID:77 y.o. 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 She was diagnosed with ventral hernia 3 Days Post-Op open ventral hernia repair with mesh Problem List: - Acute pain - Ventral hernia now status post operative repair Procedures: 07/17/2018: Repair ventral hernia with mesh Secondary Issues: Past Medical History: Diagnosis Date ??? Benign essential tremor ??? 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 Hypertension ??? Osteopenia 01/22/2011 ??? Stage III Ovarian cancer 24 Hour Events: - Tolerating regular diet - Awaiting BM (gave suppository and several bowel meds) - Will likely d'c tomorrow if BM achieved - Follow up scheduled with Gen surg - Patient will have Home VNA service for wound/drain care - Mild increase in Cr observed - KEYSHA (non-traumatic) Current Medications: ??? senna-docusate 2 tablet Oral BID ??? rivaroxaban 15 mg Oral Daily ??? sodium chloride 0.9 % 5 mL Intravenous BID ??? acetaminophen 1,000 mg Oral Q6H MICHELLE Vital Signs: VITALS (24hr Range): Temp Temp: [36.4 ??C (97.5 ??F)-37.6 ??C (99.6 ??F)] , HR Heart Rate: [88-98] , BP BP: (144-196)/(55-79) , RR Resp: [16-18] , SpO2 SpO2: [97 %-100 %] I/O: Intake/Output Summary (Last 24 hours) at 07/20/2018 1140 Last data filed at 07/20/2018 0650 Gross per 24 hour Intake -- Output 1315 ml Net -1315 ml Physical Exam: Gen: A0x3, NAD, resting comfortably CVS: Regular rate Resp: breathing comfortably on Room air Abd: soft, appropriately tender, nondistended, incision c/d/i, abdominal binder in place. GABINO drain holding suction w/ serosang output. Ext: SCDs in place, WWP Labs: Recent Labs 07/19/18 0948 07/18/18 0534 WBC 8.5 6.7 HGB 10.2* 9.5* HCT 32.9* 31.6* PLATELET 190 182 Recent Labs 07/19/18 0948 07/18/18 0534 NA 134* 135 K 4.0 4.2 CL 97* 100 CO2 23 25 BUN 17 20* CREATININE 1.50* 1.50* GLUCOSE 140 139 CALCIUM 8.7 8.2* Microbiology: None Assessment: 77F 3 Days Post-Op open ventral hernia repair with mesh, recovering well May be able to be discharged later today but more likely tomorrow. Restarting home xarelto, monitorJP output ?? Plan: Neuro: - Pain well controlled on scheduled tylenol with PRN oxycodone Pulm: - Continue to encourage IS - Saturating well on Room air -Restarting xarelto Cardiology: -HDS GI: - S/p hernia reduction with mesh - Tolerating regular diet - GABINO drain with serosang output - continue to follow, will keep post- dc - Keep abd binder in place - Manage any post-op nausea with PRN zofran/compazine - Awaiting bowel movement -gave suppository today - no BM achieved Renal: Mild KEYSHA with Cr increase ~.3 -Urine output stable, electrolytes stable Heme: Rivaroxaban 15 mg qd ID: - ISAI Dispo: Home today or tomorrow Kavon Valadez MD 07/20/2018 Acute Care Surgery Pager [phone] * Anni Martinez, CASEY - 07/19/2018 2:09 PM EST Nutrition Initial Note Isaura Aguiar is a 77 y.o. female Reason for intervention: Education Nutrition Recommendations: Suggest limit high fiber, high fat foods to assess if this helps w/ symptons Suggest consume large meal midday and smaller meal at evening meal to reduce reflux while sleeping Patient Active Problem List Diagnosis Code ??? [...] ??? Dehydration E86.0 ??? Ventral hernia K43.9 Past Medical History: Diagnosis Date ??? Benign essential tremor ??? 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 Hypertension ??? Osteopenia 01/22/2011 ??? Stage III Ovarian cancer Active Orders Diet Gastroparesis diet Frequency: Effective Now Number of Occurrences: Until Specified Admit Weight: 131.6 kg Estimated body mass index is 54.82 kg/m?? as calculated from the following: Height as of this encounter: 154.9 cm (5' 1). Weight as of this encounter: 131.6 kg (290 lb 2 oz). [place] Body Weight (IBW): [place] body weight: 47.8 kg (105 lb 6.1 oz) Adjusted ideal body weight: 81.3 kg (179 lb 4.4 oz) Today's medications: noted Lab Results Component Value Date NA 134 (L) 07/19/2018 K 4.0 07/19/2018 CL 97 (L) 07/19/2018 CO2 23 07/19/2018 BUN 17 07/19/2018 CREATININE 1.50 (H) 07/19/2018 GLUCOSE 140 07/19/2018 CALCIUM 8.7 07/19/2018 AST 14 07/09/2018 ALT 11 07/09/2018 ALKPHOS 94 07/09/2018 BILITOT 0.2 07/09/2018 Last Bowel Movement: 07/16/18 Assessment: Pt seen per gastroparesis diet order. Pt reports some difficulty swallowing pills sinceOR- likely due to intubation and she reports it is improving. 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 Diet hx reflects significant fiber intake as well as chocolate & black pepper- both can contribute to reflux. Diet hx reflects 3 meals/day with largest meal in the evening; suggested having larger meal midday in an effort to reduce symptoms. Appetite < nl post surgically;pt awaiting BM- prune juice offered. Diet copy of gastroparesis diet reviewed and provided w/ means of contact; good comprehension verbalized. Nutrition Services to follow weekly through stay CRISTOPHER FINCH Beeper #: [phone] * Vasquez Miles MD - 07/19/2018 9:33 AM EST Acute Care Surgery Daily Progress Note ID:77 y.o. 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 She was diagnosed with ventral hernia 2 Days Post-Op open ventral hernia repair with mesh Problem List: - Acute pain - Ventral hernia now status post operative repair Procedures: 07/17/2018: Repair ventral hernia with mesh Secondary Issues: Past Medical History: Diagnosis Date ??? Benign essential tremor ??? 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 Hypertension ??? Osteopenia 01/22/2011 ??? Stage III Ovarian cancer 24 Hour Events: - tolerating small amount of regular diet - able to get up and move around, pain better controlled Current Medications: ??? rivaroxaban 15 mg Oral Daily ??? sodium chloride 0.9 % 5 mL Intravenous BID ??? acetaminophen 1,000 mg Oral Q6H MICHELLE Vital Signs: VITALS (24hr Range): Temp Temp: [36.4 ??C (97.5 ??F)-37.2 ??C (99 ??F)] , HR Heart Rate: [72-91] , BP BP: (126-151)/(42-58) , RR Resp: [16] , SpO2 SpO2: [93 %-98 %] I/O: Intake/Output Summary (Last 24 hours) at 07/19/2018 0933 Last data filed at 07/19/2018 0700 Gross per 24 hour Intake 2648 ml Output 1370 ml Net 1278 ml Physical Exam: Gen: A0x3, NAD, resting comfortably CVS: Regular rate Resp: breathing comfortably on Room air Abd: soft, appropriately tender, nondistended, incision c/d/i, abdominal binder in place. GABINO drain holding suction w/ serosang output. Ext: SCDs in place, WWP Labs: Recent Labs 07/18/18 0534 07/17/18 0615 07/16/18 2150 WBC 6.7 4.5 5.9 HGB 9.5* 9.7* 10.4* HCT 31.6* 30.9* 32.5* PLATELET 182 176 187 Recent Labs 07/18/18 0534 07/17/18 0615 07/16/18 2150 NA 135 139 140 K 4.2 4.0 3.9 CL 100 103 104 CO2 25 27 25 BUN 20* 18 20* CREATININE 1.50* 1.17 1.12 GLUCOSE 139 106 109 CALCIUM 8.2* 8.6 8.6 Microbiology: None Assessment: 77F 2 Days Post-Op open ventral hernia repair with mesh, recovering well May be able to be discharged later today but more likely tomorrow. Restarting home xarelto, monitorJP output ?? Plan: Neuro: - Pain well controlled on scheduled tylenol with PRN oxycodone Pulm: - Continue to encourage IS - Saturating well on Room air -Restarting xarelto Cardiology: -HDS GI: - S/p hernia reduction with mesh - Tolerating small amount of regular diet - GABINO drain with serosang output - continue to follow (plan to dc before discharge) - Keep abd binder in place - Manage any post-op nausea with PRN zofran/compazine Renal: -No acute issues Heme: Rivaroxaban 15 mg qd ID: - ISAI Dispo: Home today or tomorrow Vasquez Miles MD 07/19/2018 Acute Care Surgery Pager [phone] * Yris Agudelo RN - 07/18/2018 3:32 PM EST The patient/product sales representative has been provided a list of Home Health Agencies/DME vendors which servetheir preferred geographic area. A letter describing our affiliations was reviewed with them and they were educated about their right to choose where referrals are placed. Patient requests referral to [facility]. PHONE: [phone] FAX: [phone] Expected date of discharge: 07/19 Referral routed to the [employer] Electrician for matching with agency/vendor and to provide any required information. * Batool Alejo RN - 07/18/2018 9:30 AM EST Images from the original note were not included. Infiltration/Extravasation Scale Isaura Aguiar [id number] Infiltration appearance: Infiltration harm % for this extremity 15 Based on measurement calculation (greatest measurement X divided by length of extremity multiplied by 100= %) Considerations and Stein: Consider the following: If the percentage of limb affected is <5% then select 1 If the percentage of limb affected is 6-25% then select 2 If the percentage of limb affected is 26-49% then select 3 If the percentage of limb affected is > 50% then always select 4 2 Skin blanched Edema 1 to 6 inches (2.5 to 15 cm) in any direction Cool to touch With or without pain Infiltration appearance score: 2 Medication Name infiltrated is LR which is a (n) other Location of infiltration: Left arm/ AC Measurement in cm of length and width of affected area---Affected extremity Measurement of Circumference in cm of Infiltrated area of affected extremity Measurement of Circumference in cm of Unaffected extremity (at same location as affected extremity) Left Right Wrist 20 17 AC 33 35 5cm above AC 38 43 *Patient's Right arm/dominant arm measures larger than edematous side Pulses present on affected extremity yes Medicated treatment given per policy/ order: no treatment indicated Plan for continued monitoring of infiltration/extravasation Name of MD contacted team [id number] 9:30 AM Name of RN contacted Laura 9:30 AM Name of Pharmacist if consulted NA 9:30 AM Plastics Provider contacted: no 9:30 AM Name of Plastics MD (if consulted) BUCKLE ATTACHER CARING FOR THIS PATIENT WILL CONTINUE TO MONITOR AND WILL ASSUME CARE, VASCULAR ACCESS WILL NOT FOLLOW THIS EVENT AT THE SIGNING OF THIS NOTE. * Kavon Valadez MD - 07/18/2018 8:32 AM EST Acute Care Surgery Daily Progress Note ID:77 y.o. 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 She was diagnosed with ventral hernia and awaits operative repair later today. Problem List: - Acute pain - Ventral hernia now status post operative repair - Procedures: 07/17/2018: Anticipated: Repair ventral hernia with mesh Secondary Issues: Past Medical History: Diagnosis Date ??? Benign essential tremor ??? 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 Hypertension ??? Osteopenia 01/22/2011 ??? Stage III Ovarian cancer 24 Hour Events: - POC was unremarkable overnight - Pain well controlled at present - Serosanguinous drain output, wound c/d/i - Encouraging ambulation, awaiting passage of gas, will keep on liquid clears for now - Will potentially restart home xaralto in the coming days - Follow up UoP later this afternoon - if adequate may pull ramos - based on renal indices bump, may need additional fluid bolus Current Medications: ??? sodium chloride 0.9 % 5 mL Intravenous BID ??? enoxaparin 40 mg Subcutaneous Nightly ??? acetaminophen 1,000 mg Oral Q6H MICHELLE Vital Signs: VITALS (24hr Range): Temp Temp: [36.5 ??C (97.7 ??F)-37 ??C (98.6 ??F)] , HR Heart Rate: [63-85] , BP BP: (115-164)/(45-95) , RR Resp: [6-21] , SpO2 SpO2: [97 %-100 %] I/O: Intake/Output Summary (Last 24 hours) at 07/18/2018 0832 Last data filed at 07/18/2018 0600 Gross per 24 hour Intake 4567.5 ml Output 885 ml Net 3682.5 ml Physical Exam: Gen: A0x3, NAD, resting comfortably CVS: Regular rate Resp: breathing comfortably on Room air Abd: soft, appropriately tender, nondistended, incision c/d/i, abdominal binder in place. GABINO drain holding suction w/ serosang output. : ramos in place, light yellow urine in bag Ext: SCDs in place, WWP Labs: Recent Labs 07/18/18 0534 07/17/18 0615 07/16/18 2150 WBC 6.7 4.5 5.9 HGB 9.5* 9.7* 10.4* HCT 31.6* 30.9* 32.5* PLATELET 182 176 187 Recent Labs 07/18/18 0534 07/17/18 0615 07/16/18 2150 NA 135 139 140 K 4.2 4.0 3.9 CL 100 103 104 CO2 25 27 25 BUN 20* 18 20* CREATININE 1.50* 1.17 1.12 GLUCOSE 139 106 109 CALCIUM 8.2* 8.6 8.6 Microbiology: None Assessment: 77F with ext PMH as above, presenting with what appears to be a severe episode of ventral hernia incarceration, since relieved by the time of our exam. She has a high grade urothelial cancer with positive margins and may well have recurrent tumor after her resection in 2017. PET scan done 03/28 did not reveal evidence of recurrence. She is now status post operative repair of ventral hernia with mesh. At present her pain is well controlled. She is awaiting return of bowel function. Will keep on clear liquids for now. Continue to encourage ambulation. Will discuss with patient if she would like home VNA for drain care. ?? Plan: Neuro: - Pain well controlled on scheduled tylenol with PRN oxycodone Pulm: - Continue to encourage IS - Saturating well on Room air - Will restart home xaralto (hx of PE) in the coming days Cardiology: - No active issues - potentially restart home beta nia once appropriate and tolerating PO, Bps okay so far GI: - S/p hernia reduction with mesh - Tolerating Liquid clears, will d/c maintenance fluids if PO intake adequate (LR @75cc/hr) - GABINO drain with serosang output - continue to follow (may need to arrange home VNA for drain care) - Keep abd binder in place - Manage any post-op nausea with PRN zofran/compazine Renal: - Follow BMP while on liquid clears - May d/c maintenance fluids if tolerating PO clears with adequate intake - Follow up UoP later today, mat ramos if adequate Heme: Lovenox 40mgsq nightly ID: - ISAI Dispo: Likely home, may require home VNA for drain care - will discuss with patient. Kavon Valadez MD 07/18/2018 Acute Care Surgery Pager [phone] * Eduard Mercedes MD - 07/17/2018 8:03 PM EST Post-Operative Check Isaura Aguiar is a 77 y.o. female s/p ventral hernia repair Procedure(s): REPAIR INITIAL INCISIONAL OR VENTRAL HERNIA REDUCIBLE (WRVU 11.92) MODIFIER MESH,BARD SOFT MESH S: No nausea/vomiting, chest pain, SOB, pain well controlled, offers no complaints O: Temp: [37 ??C (98.6 ??F)] Heart Rate: [63-85] Resp: [6-21] BP: (122-164)/(45-95) SpO2: [99 %-100 %] Heart Rate from SPO2: [65 bpm-85 bpm] I/O last 3 completed shifts: In: 1560 [P.O.:60; I.V.:1500] Out: 425 [Urine:375; Blood:50] No intake/output data recorded. Recent Results (from the past 24 hour(s)) Basic Metabolic Panel (non-fasting) Result Value Ref Range Glucose Lvl 109 65 - 199 mg/dL BUN 20 (H) 8 - 18 mg/dL Creatinine 1.12 0.70 - 1.20 mg/dL Sodium 140 135 - 145 mmol/L Potassium 3.9 3.5 - 5.0 mmol/L Chloride 104 98 - 107 mmol/L CO2 25 22 - 31 mmol/L Anion Gap 11 5 - 15 mmol/L Calcium 8.6 8.5 - 10.5 mg/dL eGFR 48 (L) >=60 mL/min/1.73 m?? eGFR 56 (L) >=60 mL/min/1.73 m?? Hemogram Result Value Ref Range WBC 5.9 4.0 - 9.5 x10(3)/mcL RBC 3.67 (L) 4.00 - 5.21 x10(6)/mcL Hemoglobin 10.4 (L) 11.7 - 15.5 gm/dL Hematocrit 32.5 (L) 35.7 - 45.8 % MCV 88.6 82.6 - 94.4 fL MCH 28.3 27.1 - 32.0 pg MCHC 32.0 31.7 - 35.0 gm/dL Platelets 187 145 - 357 x10(3)/mcL RDWSD 51.2 (H) 37.0 - 46.0 fL RDWCV 15.9 (H) 11.5 - 14.1 % MPV 10.2 7.6 - 12.9 fL nRBC % Auto 0.0 % nRBC Abs Auto 0.000 0.000 - 0.000 x10(3)/mcL Differential, Automated Result Value Ref Range Neutrophils % 69.9 % Neutr Abs (ANC) 4.11 1.70 - 6.10 x10(3)/mcL Lymphocytes % 18.9 % Lymphocytes Abs 1.1 0.9 - 3.2 x10(3)/mcL Monocytes % 9.2 % Monocyte Abs 0.5 0.3 - 0.9 x10(3)/mcL Eosinophils % 1.4 % Eosinophils Abs 0.1 0.0 - 0.4 x10(3)/mcL Basophils % 0.3 % Basophils Abs 0.0 0.0 - 0.1 x10(3)/mcL Immature Gran % 0.30 % [place] Gran Abs 0.02 0.00 - 0.04 x10(3)/mcL Basic Metabolic Panel (non-fasting) Result Value Ref Range Glucose Lvl 106 65 - 199 mg/dL BUN 18 8 - 18 mg/dL Creatinine 1.17 0.70 - 1.20 mg/dL Sodium 139 135 - 145 mmol/L Potassium 4.0 3.5 - 5.0 mmol/L Chloride 103 98 - 107 mmol/L CO2 27 22 - 31 mmol/L Anion Gap 9 5 - 15 mmol/L Calcium 8.6 8.5 - 10.5 mg/dL eGFR 46 (L) >=60 mL/min/1.73 m?? eGFR 53 (L) >=60 mL/min/1.73 m?? Hemogram Result Value Ref Range WBC 4.5 4.0 - 9.5 x10(3)/mcL RBC 3.41 (L) 4.00 - 5.21 x10(6)/mcL Hemoglobin 9.7 (L) 11.7 - 15.5 gm/dL Hematocrit 30.9 (L) 35.7 - 45.8 % MCV 90.6 82.6 - 94.4 fL MCH 28.4 27.1 - 32.0 pg MCHC 31.4 (L) 31.7 - 35.0 gm/dL Platelets 176 145 - 357 x10(3)/mcL RDWSD 52.9 (H) 37.0 - 46.0 fL RDWCV 16.0 (H) 11.5 - 14.1 % MPV 10.0 7.6 - 12.9 fL nRBC % Auto 0.0 % nRBC Abs Auto 0.000 0.000 - 0.000 x10(3)/mcL Differential, Automated Result Value Ref Range Neutrophils % 59.1 % Neutr Abs (ANC) 2.65 1.70 - 6.10 x10(3)/mcL Lymphocytes % 28.3 % Lymphocytes Abs 1.3 0.9 - 3.2 x10(3)/mcL Monocytes % 8.9 % Monocyte Abs 0.4 0.3 - 0.9 x10(3)/mcL Eosinophils % 3.3 % Eosinophils Abs 0.2 0.0 - 0.4 x10(3)/mcL Basophils % 0.2 % Basophils Abs 0.0 0.0 - 0.1 x10(3)/mcL Immature Gran % 0.20 % [place] Gran Abs 0.01 0.00 - 0.04 x10(3)/mcL Physical Exam Gen: A0x3, NAD, resting comfortably CVS: Regular rate Resp: breathing comfortably on 2L NC Abd: soft, appropriately tender, nondistended, incision c/d/i, abdominal binder in place. GABINO drain holding suction w/ serosang output. : ramos in place, light yellow urine in bag Ext: SCDs in place, WWP AP Isaura Aguiar is a 77 y.o. female s/p ventral hernia repair currently in stable condition and recovering well - continue post operative plan per primary team - pain well controlled - hemodynamically stable Eduard Mercedes MD 07/17/2018 * Kavon Valadez MD - 07/17/2018 7:26 PM EST Acute Care Surgery Daily Progress Note ID:77 y.o. 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 She was diagnosed with ventral hernia and awaits operative repair later today. Problem List: - Acute pain - Ventral hernia Procedures: 07/17/2018: Anticipated: Repair ventral hernia with mesh Secondary Issues: Past Medical History: Diagnosis Date ??? Benign essential tremor ??? 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 Hypertension ??? Osteopenia 01/22/2011 ??? Stage III Ovarian cancer 24 Hour Events: - Awaiting OR for surgical repair of ventral hernia - Kept NPO at present Current Medications: ??? sodium chloride 0.9 % 5 mL Intravenous BID ??? enoxaparin 40 mg Subcutaneous Nightly ??? acetaminophen 1,000 mg Oral Q6H MICHELLE Vital Signs: VITALS (24hr Range): Temp Temp: [36.4 ??C (97.5 ??F)-37 ??C (98.6 ??F)] , HR Heart Rate: [63-85] , BP BP: (122-164)/(45-95) , RR Resp: [6-21] , SpO2 SpO2: [97 %-100 %] I/O: Intake/Output Summary (Last 24 hours) at 07/17/20181925 Last data filed at 07/17/2018 1700 Gross per 24 hour Intake 1560 ml Output 425 ml Net 1135 ml Physical Exam: GA: NAD, resting comfortably CV: regular without mrg Pulm: unlabored breathing on RA, no use of accessory muscles, no stridor/audible wheezing, CTAB ABD: soft, not distended, mildly tender to palpation along midline scar superior and inferior to the umbilicus. No rebound, guarding. Not peritoneal. Extr: warm and well perfused, no notable edema Neuro: no focal deficits Labs: Recent Labs 07/17/18 0615 07/16/18 2150 WBC 4.5 5.9 HGB 9.7* 10.4* HCT 30.9* 32.5* PLATELET 176 187 Recent Labs 07/17/18 0615 07/16/18 2150 NA 139 140 K 4.0 3.9 CL 103 104 CO2 27 25 BUN 18 20* CREATININE 1.17 1.12 GLUCOSE 106 109 CALCIUM 8.6 8.6 Microbiology: None Assessment: 77F with ext PMH as above, presenting with what appears to be a severe episode of ventral hernia incarceration, since relieved by the time of our exam. 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 PET scan done 03/28 did not reveal evidence of recurrence. ?? Was admitted overnight and is awaiting operative repair of ventral hernia ? Plan: - Awaiting operative repair of ventral hernia - Pain adequately managed at present - Keep NPO until procedure - Continue maintenance fluids Kavon Valadez MD 07/17/2018 Acute Care Surgery Pager [phone] * Renee Diaz RN - 07/17/2018 3:31 PM EST RN Break Coverage documented in this encounter H&P Notes * Howard Jeronimo MD - 07/16/2018 5:37 PM EST General Surgery H&P HPI: Isaura Aguiar is a 77 y.o. female with PMH ovarian cancer s/p JOANN BSO and cisplatin, cytoxan (1994), L Breast IDC s/p bilateral mastectomy (2005) (+ BRCA2 mutation), metastatic urothelial carcinoma s/p right nephroureterectomy 2015 who presents with symptoms of abdominal pain, nausea, vomiting which started at 11 pm last night. She relates these symptoms to her known ventral hernia (seen on CT scan in 2018). She has had 4-5 episodes of abdominal pain and associated obstipation. She reports that her current symptoms feel like a very bad version of these previous events. Since 3 am this morning she has thrown up 3 times, mostly undigested food. Last episode of emesis was at 7 am. She has not had a bowel movement for the past 3 days. She reports some chills this morning. She denies fever, passing of blood in her stool orvomitus . PMH: Past Medical History: Diagnosis Date ??? Benign essential tremor ??? 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 Hypertension ??? Osteopenia 01/22/2011 ??? Stage III Ovarian cancer -Acute PE on CT scan on 2017 -Ovarian cancer in 1994 status post cisplatin and Cytoxan -Left breast invasive ductal carcinoma in 2005 status post 5 years of anastrozole, BRCA2 mutation -Metastatic urothelial carcinoma, high grade urothelial carcinoma with pT3pN2, laparoscopic right nephroureterectomy on 11/02/2016, Concomitant XRT with capecitabine on June 06, 2017. Onc History/PSH -Bilateral hip replacement -Ovarian cancer in 1994 status post cisplatin and Cytoxan -Bilateral mastectomies with bilateral sentinel node dissections 2005, anastrazole for 5 years -2017: metastatic urothelial carcinoma, high grade urothelial carcinoma with pT3pN2, laparoscopic right nephroureterectomy on 11/02/2016, Concomitant XRT with capecitabine on June 06, 2017. Path report [id number] ?Location: [facility]; 0209; A The signing pathologist has (i) examined the relevant preparation(s) for the specimen(s) and (ii) rendered or confirmed the diagnosis(es). ? Surgical Pathology DIAGNOSIS A - Lymph nodes attached to iliac vessels, excision: ? Metastatic carcinoma involving matted lymph nodes and ? extranodal adipose tissue (approximately 1/2 positive ? lymph nodes). B - Right kidney and ureter, resection: ? 1. High-grade urothelial carcinoma invading ?into the lamina propria and muscularis propria, ?distal ureter, 4.0 cm in diameter, associated ?with CIS (see Synoptic Report). ? 2. Bladder cuff margin free of tumor and CIS. ? 3. Three additional separate foci of high-grade urothelial ?carcinoma, (two midureter and one proximal ureter ?adjacent to renal pelvis). ?a. Proximal ureteral tumor invades through the muscularis ? propria, extends into the adjacent adipose tissue, and ? involves the inked hayley-ureteral soft tissue margin. ?b. Perineural and vascular invasion identified (proximal ? ureter). ? 4. One lymph node, no evidence of malignancy (0/1). ? 5. Hydronephrosis and hydroureter. ? 6. Chronic pyelonephritis and ureteritis. MEDICATIONS: No current facility-administered medications on file prior to encounter. Current Outpatient Medications on File Prior to Encounter Medication Sig Dispense Refill ??? cetirizine (ZYRTEC) 10 mg Tablet Take 10 mg by mouth daily. ??? fluticasone (FLONASE) 50 mcg/actuation [place], Suspension 1 spray daily. ??? rivaroxaban (XARELTO) 15 mg Tablet Take 15 mg by mouth daily. ??? PROCHLORPERAZINE MALEATE (COMPAZINE ORAL) Take by mouth. ??? tkry-jxp-xog-tto-tzzq-pomf-pec (FIBER 6) 1,000 mg Tablet Take by mouth daily. ??? LORazepam (ATIVAN) 0.5 mg Tablet take 1 tablet by mouth ONE HOUR PRIOR TO PET SCAN,MAY REPEAT AT TIME OF SCAN if needed 0 ??? ondansetron (ZOFRAN-ODT) 8 mg Tablet, Rapid Dissolve You can take this 1 hour prior to radiation to prevent nausea, and 4 hours after radiation. You can otherwise take as needed every 8 hours. (Patient not taking: Reported on 08/15/2017) 20 tablet PRN ??? omeprazole (PRILOSEC) 10 mg Capsule, Delayed Release(E.C.) Take 10 mg by mouth daily as needed.Daily as needed ??? lactobacillus rhamnosus, GG, (CULTURELLE) 10 billion cell Capsule Take 1 capsule by mouth daily. ??? magnesium oxide (MAG-OX) 400 mg Tablet Take 1 tablet by mouth daily. 30 tablet 2 ??? docusate sodium (COLACE) 100 mg Capsule Take 100 mg by mouth daily. ??? Calcium Carbonate-Vitamin D3 600 mg(1,500mg) -400 unit Tab Take 1 tablet by mouth daily. Reported on 01/03/2017 ??? hydrochlorothiazide (HYDRODIURIL) 25 mg tablet Take 25 mg by mouth daily. ??? aspirin 81 mg EC tablet Take 81 mg by mouth daily. ??? atenolol (TENORMIN) 50 mg tablet ??? simvastatin (ZOCOR) 10 mg tablet ??? ACETAMINOPHEN (TYLENOL ORAL) ALLERGIES: Allergies Allergen Reactions ??? Glucosamine-Chondroitn Sulf.Na Nausea Only Intense cramping too ??? Iv 3000 [Transparent Dressings] Rash Erythema, blisters ??? Sulfa (Sulfonamide Antibiotics) Other (See Comments) liver damage FAMILY HISTORY: Family History Problem Relation Age of Onset ??? Lung Cancer Brother 72 ??? Ovarian Cancer Other 41 ??? Lung Cancer Maternal Uncle 70's or 80's ??? Breast Cancer Maternal Aunt ??? Prostate Cancer Father 63 - Denies history of bleeding or clotting disorders. Denies history of reactions to anesthesia. SOCIAL HISTORY: Social History Socioeconomic History ??? Marital status: Spouse name: Not on file ??? Number of children: Not on file ??? Years of education: Not on file ??? Highest education level: Not on file Social Needs ??? Financial resource strain: Not on file ??? Food insecurity - worry: Not on file ??? Food insecurity - inability: Not on file ??? Transportation needs - medical: Not on file ??? Transportation needs - non-medical: Not on file Occupational History ??? 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 Smoking status: Never Smoker ??? Smokeless tobacco: Never Used Substance and Sexual Activity ??? Alcohol use: No ??? Drug use: No ??? Sexual activity: Not on file Other Topics Concern ??? Not on file Social History Narrative ??? Not on file REVIEW OF SYSTEMS: 12 point review of system otherwise negative except as above PHYSICAL EXAM: VS: (Temp: [36.4 ??C (97.5 ??F)] ) Temp: 36.4 ??C (97.5 ??F), (Heart Rate: [68] ) Heart Rate: 68, (BP: (132-136)/(62-101) ) BP: (!) 132/101, (Resp: [14] ) Resp: 14, (SpO2: [99 %-100 %] ) SpO2: 100 % GA: NAD, resting comfortably CV: regular without mrg Pulm: unlabored breathing on RA, no use of accessory muscles, no stridor/audible wheezing, CTAB ABD: soft, not distended, mildly tender to palpation along midline scar superior and inferior to the umbilicus. No rebound, guarding. Not peritoneal. Extr: warm and well perfused, no notable edema Neuro: no focal deficits LABS: Last value Range last 24hrs Temperature Temp: 36.4 ??C (97.5 ??F) Temp: [36.4 ??C (97.5 ??F)] Heart Rate Heart Rate: 68 Heart Rate: [68] Blood Pressure BP: (!) 132/101 BP: (132-136)/(62-101) Respiratory Rate Resp: 14 Resp: [14] SpO2 SpO2: 100 % SpO2: [99 %-100 %] BMI There is no height or weight on file to calculate BMI. No intake or output data in the 24 hours ending 07/16/181826 No results for input(s): WBC, HGB, HCT, PLATELET, PT, INR, PTT in the last 72 hours. No results for input(s): NA, K, CL, CO2, BUN, CREATININE, GLUCOSE, CALCIUM, MAGNESIUM, PHOS, LACTATE in the last 72 hours. No results for input(s): PHART, PO2ART, UFA0UWF, LACTATEART, BEART in the last 72 hours. ASSESSMENT and RECOMMENDATIONS: 77F with ext PMH as above, presenting with what appears to be a severe episode of ventral hernia incarceration, since relieved by the time of our exam. She has a high grade urothelial cancer with positive margins and may well have recurrent tumor after her resection in 2017. PET scan done 03/28 didnot reveal evidence of recurrence. Will admit overnight and discuss surgery either tomorrow or on an elective basis depending on her symptoms tomorrow morning. Hold Xarelto. Last dose of xarelto was on the morning of July 15. Givenhistory of multiple malignancies, need for surgery and prior DVT and PE she is at very high risk ofrecurrent DVT. At this point she does not have evidence of strangulation or ongoing obstruction but she has had multiple episodes of symptomatic incarceration and this should be repaired. Hernia is 8 x 9 cm to my measurement of the CT scan I discussed the significant risk or recurrence considering the high intraabdominal pressure associated with her obesity. This consult was staffed with Dr. Jeronimo. Surgery Staff Note [x] I saw and evaluated the patient. I reviewed Dr. Miles's note and agree with the findings and plans as documented with additions I have made to his documentation. Vasquez Miles MD 07/16/2018 [id number] documented in this encounter ED Notes * Iva Peres MD - 07/16/2018 5:02 PM EST ED Transfer Note: Patient accepted in transfer by general surgery due to concern for incarcerated hernia. A brief history was elicited from the patient and the transfer documents. Briefly, Isaura Aguiar is a 77 y.o. female With a history of breast cancer, ovarian cancer, and bladder cancer currently in remission who presented to [facility] for abdominal pain, nausea, and vomiting that began at 11 PM the evening prior. Course at OSH was notable for the abdomen showing concern for incarceration of her known ventral hernia. Labs significant for normal lactate, negative UA, creatinine of 1.6. On my examination, Gen: Resting in bed, NAD HEENT: atraumatic CV: RRR Pulm: CTAB Abd: soft, nondistended. There is point tenderness over area of ventral hernia in the periumbilicalregion. Increased firmness felt over hernia. No rebound or guarding. Skin: warm, dry Neuro: ANO x 3 Psych: normal behavior I contacted the accepting team. They will evaluate the patient, please see their notes. ED Course and Disposition: At time of general surgery exam, it appeared that her ventral hernia incarceration had been relieved. She will be admitted to general surgery with possibility of surgery tomorrow or on elective basis. Leatha Osuna MD Resident 07/16/18 230 ED ATTENDING ATTESTATION NOTE The patient was seen in conjunction with Dr. Osuna, the resident physician. I have independently performed the stein portions of the history and physical exam. I have reviewed the nursing notes, vitalsigns, and all diagnostic studies personally including labs, imaging studies and EKGs. I have discussed the details of the case with the resident and agree with the assessment and plan as described in the resident note above unless noted otherwise below. Brief Summary: transfer for concern over incarcerated hernia. HD stable in ED and reassuring abd exam but technically limited given her habitus. Agree with above plan. Final Assessment: as above. Iva Peres MD 07/18/18 1345 documented in this encounter Miscellaneous Notes * Plan of Care - Rafaela Kunz RN - 07/21/2018 2:39 AM EST Problem: Patient Care Overview Goal: Plan of Care Review Outcome: Ongoing (Interventions Implemented as Appropriate) 07/19/18 1842 07/20/181999 Coping/Psychosocial Plan Of Care Reviewed With -- patient Plan of Care Review Progress improving -- OUTCOME EVALUATION NOTE: OUTCOME SUMMARY: Pt is AAOx4. AVSS. Pain controlled w scheduled Tylenol. Ambulates to bathroom w SBA, and around theunit w SBA and a FFW. Voiding adequate amounts in the bathroom. One large liquid stool. HS Senna held. GABINO drain putting out scant amounts of fluid. See DOC flow for shift total. Pleasant and compliant with all care. Will continue to monitor. PLAN MOVING FORWARD: Continue to monitor Is&Os Pain management Monitor GABINO output Continue Bowel program Plan to DC home in 07/21 INDIVIDUALIZED FALL PREVENTION INTERVENTIONS: Patient-specific fall risk factors per assessment: Pain Assistance: SBA Supervision: Eyes on Surveillance: Bed locked in low position, call miller within reach, purposeful hourly rounding, clutter free environment, bed/chair alarm on Patient-specific fall prevention interventions for sensory deficits provided: Yes CPG GOAL OUTCOME EVALUATION: Continue care plan as documented. * Plan of Care - Zahra Fink RN - 07/20/2018 4:34 PM EST Problem: Patient Care Overview Goal: Plan of Care Review Outcome: Ongoing (Interventions Implemented as Appropriate) 07/19/18 1842 07/20/18 0841 Coping/Psychosocial Plan Of Care Reviewed With -- patient Plan of Care Review Progress improving -- OUTCOME EVALUATION NOTE: OUTCOME SUMMARY: Pt A+O x4. VSS. PRN analgesia administered this am (see MAR) with reportedly positive effect. Pt passing flatus but is reporting a fullness sensation. PRN and scheduled bowel medications administered. Thus far no result. Pt agreeable to remaining in the hospital another day. Will continue to provide interventional measures to move bowels. Will continue to assess. PLAN MOVING FORWARD: Pain management Bowel management Mobilization as tolerated Dishcarge planning INDIVIDUALIZED FALL PREVENTION INTERVENTIONS: Patient-specific fall risk factors per assessment: [current deficits]: Pain, analgesia, recent surgery, lines, unfamiliar environment Assistance [level of assistance required for transfers and ambulation]: SBA Supervision [direct monitoring required during toileting and ADLs]: Eyes on Surveillance [continuous indirect monitoring]: Masimo, purposeful rounding Patient-specific fall prevention interventions for sensory deficits provided, if applicable: [X] N/A CPG GOAL OUTCOME EVALUATION: Goal: Individualization & Mutuality Outcome: Ongoing (Interventions Implemented as Appropriate) 07/17/18 0151 Mutuality/Individual Preferences What Anxieties, Fears or Concerns Do You Have About Your Health or Care? Unable to eat and hold food down. What Questions Do You Have About Your Health or Care? None at the moment. What Information Would Help Us Give You More Personalized Care? Care has been excellent. Goal: Fall Prevention-Safe Patient Handling Outcome: Ongoing (Interventions Implemented as Appropriate) 07/20/18 0650 07/20/18 1000 07/20/18 1400 Daily Care Interventions Self-Care Promotion -- independence encouraged;BADL personal objects within reach;BADL personal routines maintained -- East Fall Risk History of Falling -- 25 -- Secondary Diagnosis -- 15 -- Ambulatory Aids -- 15 -- Intravenous Therapy/Heparin/Saline Lock -- 20 -- Gait/Transferring -- 10 -- Mental Status -- 0 -- Score -- 85 -- OTHER East Fall Risk -- High -- Restraint Interventions Safety Promotion/Fall Prevention -- -- safety round/check completed Positioning Body Position -- independent -- Activity Activity Type -- activity adjusted per tolerance;ROM, active encouraged -- Activity Assistance Provided -- assistance, stand-by -- Assistive Device Utilized none -- -- Goal: Infection Control Outcome: Ongoing (Interventions Implemented as Appropriate) 07/19/18199907/20/18 0841 Safety Interventions Isolation Precautions standard precautions maintained -- Infection Prevention environmental surveillance performed -- Coping Strategies Supportive Measures -- active listening utilized;goal setting facilitated;positive reinforcement provided;self-care encouraged;verbalization of feelings encouraged;problem solving facilitated Goal: Discharge Needs Assessment Outcome: Ongoing (Interventions Implemented as Appropriate) 07/18/188 07/20/18 162 Discharge Needs Assessment Concerns To Be Addressed -- no discharge needs identified Discharge Disposition still a patient -- Living Environment Transportation Available -- car;family or friend will provide Goal: Interdisciplinary Rounds/Family Conf Outcome: Ongoing (Interventions Implemented as Appropriate) 07/18/181737 Interdisciplinary Rounds/Family Conf Participants nursing;major case detective;family;occupational therapy;physical therapy;physician;patient Problem: Pain, Acute (Adult) Goal: Identify Related Risk Factors and Signs and Symptoms Related risk factors and signs and symptoms are identified upon initiation of Human Response Clinical Practice Guideline (CPG) Outcome: Ongoing (Interventions Implemented as Appropriate) 07/20/18 162 Pain, Acute Related Risk Factors (Acute Pain) surgery;procedure/treatment Signs and Symptoms (Acute Pain) verbalization of pain descriptors;facial mask of pain/grimace;guarding/abnormal posturing/positioning Goal: Acceptable Pain Control/Comfort Level Patient will demonstrate the desired outcomes by discharge/transition of care. Outcome: Ongoing (Interventions Implemented as Appropriate) 07/20/18 162 Pain, Acute (Adult) Acceptable Pain Control/Comfort Level making progress toward outcome * Plan of Care - Rafaela Kunz RN - 07/20/2018 7:01 AM EST Problem: Patient Care Overview Goal: Plan of Care Review Outcome: Ongoing (Interventions Implemented as Appropriate) 07/19/18184107/19/181999 Coping/Psychosocial Plan Of Care Reviewed With -- patient Plan of Care Review Progress improving -- OUTCOME EVALUATION NOTE: OUTCOME SUMMARY: Pt is AAOx4. AVSS. Ambulating to the bathroom w SBA. Voiding adequate amounts. GABINO output total, 15 mL. PLAN MOVING FORWARD: Plan to DC today INDIVIDUALIZED FALL PREVENTION INTERVENTIONS: Patient-specific fall risk factors per assessment: Hospital environment Assistance: SBA, FWW Supervision: Arms reach Surveillance: Bed locked in low position, call miller within reach, purposeful hourly rounding, clutter free environment, bed/chair alarm on Patient-specific fall prevention interventions for sensory deficits provided: Yes CPG GOAL OUTCOME EVALUATION: Continue care plan as documented. * Plan of Care - Miles Caban RN - 07/19/2018 6:49 PM EST Problem: Patient Care Overview Goal: Plan of Care Review 07/19/181841 Coping/Psychosocial Plan Of Care Reviewed With patient Plan of Care Review Progress improving OUTCOME EVALUATION NOTE: OUTCOME SUMMARY: Pt A+O x4. VSS. Pt has been ambulating around the unit all day. Oxycodone given once with good painrelief. GABINO drain had 50cc output this shift. IVF d/c. Incision looks good. No acute events. Will continue to monitor, assess for and address comfort needs, ensure safety, and notify MD of any changes. ?? PLAN MOVING FORWARD: Pain management Encourage mobility Encourage ADL's ?? Skin care and monitoring ?? Encourage/support family involvement ?? Discharge tomorrow?? INDIVIDUALIZED FALL PREVENTION INTERVENTIONS: Patient-specific fall risk factors per assessment: [current deficits]: weakness, hx of fall, IV tubes, masimo cord ?? Assistance [level of assistance required for transfers and ambulation]: SBA w/ walker ?? Supervision [direct monitoring required during toileting and ADLs]: Able to reliably summons for assistance ?? Surveillance [continuous indirect monitoring]: Purposeful rounding, room near nsg station, call light within reach, masimo on ?? Patient-specific fall prevention interventions for sensory deficits provided, if applicable: As above CPG GOAL OUTCOME EVALUATION: Continue goals of care * Plan of Care - Daija Rodriguez, PT - 07/19/2018 3:14 PM EST Physical Therapy Evaluation Pertinent History of Current Problem: Isaura Aguiar is a 77 y.o. 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 Pt with an incarcerated ventral hernia. This was repaired, with mesh applied, 07/17/18. Pt admitted 07/16/18 from an OSH. Precautions/Restrictions: fall, lifting(log roll. Abdominal binder. Avoid pushing/pulling.) Precautions Comments: Full code. Abdominal drain. Abdominal incision. Assessment: Pt seen for evaluation; gait, transfer, balance, bed mobility and endurance training; pt/ ed and dc planning. Pt is moderately complex given some impaired functional deficits, now needing an ambulatory device, with the following impairments: aerobic capacity/endurance;anthropometric characteristics;gait, locomotion, and balance;integumentary integrity (Pain). Her rather short and wide body habitus makes bed mobility challenging. Pt has a mechanical lift chair and they will use that until pain and mobility has improved post op, to allow proper log rolling in and out of bed. All other mobility is a supervision level, which can provide. She has a FWW and will wean off it. No further PT needed at this time. Safe for dc when medically stable. Please see associated flow sheet data below for objective information regarding today's session Staff Mobility Recommendations: Safe to walk with supervision of . Needs Moderate assist forin and out of bed with log roll preferred Anticipated Discharge Disposition: home with assist(No need for ongoing PT. supportive) DAIJA RODRIGUEZ, PT Pager: [phone] Inpatient Physical Therapy 2016 PT Evaluation Code Rationale: ?? Diagnosis & Pertinent Co-Morbidities, personal factors, and present illness affecting Plan of Care: Patient Active Problem List Diagnosis Code ??? [...] ??? Dehydration E86.0 ??? Ventral hernia K43.9 Additional personal factors or co-morbidities that impact plan: ?? Total # of Factors: 0 1-2 3+ x ?? Examination of body system impairments, functional limitations and behaviors, and/or participation restrictions. Addressing 1-2 elements Addressing 3 + elements Addressing 4 + elements x ?? Clinical presentation: See assessment above. Stable/Uncomplicated Evolving/Fluctuating Symptoms Unstable/Unpredictable x ?? Clinical decision making of moderate complexity based on pt's functional performance as outlinedin this evaluation. 07/19/18 0831 Rehab Evaluation Document Type evaluation Total Evaluation Minutes, Physical Therapy 40 (High EV and TEF) Patient Effort good Symptoms Noted During/After Treatment fatigue;increased pain General Information Patient/Family/Caregiver Comments/Observations The walker just helps me to stand up more upright.I have one at home, if I need it. General Observations of Patient Pt originally in the recliner. Pt was given a gaymar cushion to useand foot stool. Pertinent History of Current Problem Isaura Aguiar is a 77 y.o. 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 Pt with an incarcerated ventral hernia. This was repaired, with mesh applied, 07/17/18. Pt admitted 07/16/18 from an OSH. Hearing Precautions/Limitations WFL Precautions/Restrictions fall;lifting (log roll. Abdominal binder. Avoid pushing/pulling.) Precautions Comments Full code. Abdominal drain. Abdominal incision. Treatment Number PT 1 Living Environment Patient population Adult Living Environment Living Environment Comment pt lives with her in 1 level log cabin. Has FOS w/ L sided rail to enter. Has walk in shower w/ built in seat, GBs and raised toilet. Sleeps in regular bed (high), but has mechanical lift recliner on porch (currently attempting to move indoors). Functional Level Prior Ambulation 0-->independent Transferring 0-->independent Toileting 0-->independent Bathing 0-->independent Dressing 0-->independent Eating 0-->independent Communication 0-->understands/communicates without difficulty Swallowing 0-->swallows foods/liquids without difficulty Prior Functional Level Comment pt typically independent without AD. Has a FWW. home 02/01 and can assist with everything. Also has leg heel reducer at home Self-Care Dominant Hand right Usual Activity Tolerance good Current Activity Tolerance fair Equipment Currently Used at Home no (Has a cane, FWW and Lift, recliner chair.) Vital Signs Heart Rate (80-100) SpO2 98 % O2 Device RA Vision Assessment/Intervention Additional Documentation (Reading glasses) Cognitive Assessment/Intervention Additional Documentation (alert and orientated x 4) Pain Scale/Rating Pain Assessment Scale Numbers (Numeric Rating Pain Scale) Pain Level (abdominal pain ranges, 2/10 at rest to 8/10 at worse) ROM (Range of Motion) Additional Documentation General Assessment (Group) General Range of Motion Detail BUE AROM wfls. BLE AROM limited by body habitus but functional for transfers and gait. MMT (Manual Muscle Testing) Additional Documentation General Assessment (Group) General Manual Muscle Testing Assessment Detail BUE at least 3/5. B quad 5/5 and B ankle DF 5/5. Mobility Assessment/Training Additional Documentation Bed Mobility Assessment/Treatment (Group);Gait Assessment/Treatment (Group);Stairs Assessment/Treatment (Group);Transfer Assessment/Treatment (Group) Bed Mobility Assessment/Treatment [id number] [place] (Bed Mobility) moderate assist (50% patient effort) [id number]-[id number] [place] (Bed Mobility) moderate assist (50% patient effort) Assistive Device (Bed Mobility) (HOB slightly elevated) Roll Left [place] (Bed Mobility) moderate assist (50% patient effort) Roll Right [place] (Bed Mobility) moderate assist (50% patient effort) Impairments (Bed Mobility) flexibility decreased;pain;strength decreased Comment (Bed Mobility) Pt cued for log rolling in and out of bed. very difficult for pt 2/2 body habitus and pain. Recommended she sleep in her mechanical lift chair. Pt agrees. Transfer Assessment/Treatment [place] (Sit-Stand Transfers) supervision required [place] (Stand-Sit Transfers) supervision required Rep-Qoloa-Sqc Assistive Device (Transfers) (with or without the FWW) Gait Assessment/Treatment Assistive Device (Gait) rolling walker [place] (Gait) supervision required Distance in Feet (Gait) 200' and 20' in room without a device but reaching for things to hold. Deviations (Gait) yvrose decreased;step length decreased Impairments (Gait) balance impaired;pain;strength decreased Comment (Gait) Stable with FWW. Stairs Assessment/Treatment Number of Stairs (Stairs) 13 Handrail Location (Stairs) left side (ascending) [place] (Stairs) supervision required Technique (Stairs) [id number] (ascending);[id number]-[id number] (descending) Impairments (Stairs) pain;balance impaired;strength decreased Comment (Stairs) stood by and knows how to guard properly. Motor Skills/Interventions Additional Documentation Therapeutic Exercise (Group) Therapeutic Exercise Comment (Therapeutic Exercise) Used IS 5x up to 1000 ml. Pt given a pulmonary pillow for splinted abdominal cough. Sensory Assessment/Intervention Additional Documentation (intact) Respiratory WDL Respiratory WDL WDL Cardiovascular WDL (Adult) Cardiac WDL (tachycardia) Skin WDL Skin WDL (Abdominal binder and drain.) Coping Observed Emotional State calm;cooperative Plan of Care Review Plan Of Care Reviewed With patient (spouse) Physical Therapy Goal Types Physical Therapy Goal Types Physical Therapy Goal (Group) Physical Therapy Goal PT Goal, Date Established 07/19/18 PT Goal, Time to Achieve 1 day PT Goal, Activity Type Demonstrates good technique with deep breathing and splinted cough. PT Goal, Additional Goal demonstrates understanding how to assist and guar pt on stairs andwill mobility, PRN. PT Goal, Outcome goal met Clinical Impression Impairments Found (describe specific impairments) aerobic capacity/endurance;anthropometric characteristics;gait, locomotion, and balance;integumentary integrity (Pain) Therapy Frequency evaluation only Anticipated Equipment Needs at Discharge (none. Has FWW, cane and lift chair at home.) Anticipated Discharge Disposition home with assist (No need for ongoing PT. supportive) General Interventions Additional Documentation Planned Therapy Interventions (Group) Planned Therapy Interventions balance training;bed mobility training;gait training;patient/family education;stair training;strengthening;transfer training Discharge Summary Additional Documentation Discharge Summary (Group) Discharge Summary Reason for Discharge patient met all goals and outcomes Outcomes Achieved able to achieve all goals within established timeline Transfer to Another Level of Care or Facility (No Furter PT needs at this time) * Plan of Care - Jacob Lea RN - 07/19/2018 6:52 AM EST Problem: Patient Care Overview Goal: Plan of Care Review Outcome: Ongoing (Interventions Implemented as Appropriate) 07/16/18 2136 07/18/181999 Coping/Psychosocial Plan Of Care Reviewed With -- patient Plan of Care Review Progress progress toward functional goals as expected -- OUTCOME EVALUATION NOTE: OUTCOME SUMMARY: Pt refused to have ramos discontinued last night and wants to keep it till today-MD aware. Ramos output was great.Ramos discontinued closer to 0700am after pt was seen by doctors. Pt drank PO fluids well through the night. Pain is controlled well with Tylenol. PLAN MOVING FORWARD: Ramos to discontinue. To get OOB, walk. IS given 1500ml effort. INDIVIDUALIZED FALL PREVENTION INTERVENTIONS: Patient-specific fall risk factors per assessment: [current deficits]: Fall alert. Assistance [level of assistance required for transfers and ambulation]: Min/SBA assist. With ADL needs. Supervision [direct monitoring required during toileting and ADLs]: As above. Surveillance [continuous indirect monitoring]: Hourly rounding done Patient-specific fall prevention interventions for sensory deficits provided, if applicable: [X] Yes CPG GOAL OUTCOME EVALUATION: * Plan of Care - Laura Moncada RN - 07/18/2018 5:51 PM EST Problem: Patient Care Overview Goal: Plan of Care Review Outcome: Ongoing (Interventions Implemented as Appropriate) 07/16/18 2136 07/18/18 1445 Coping/Psychosocial Plan Of Care Reviewed With -- patient Plan of Care Review Progress progress toward functional goals as expected -- OUTCOME EVALUATION NOTE: OUTCOME SUMMARY: Pt A&Ox4, AVSS. Up with RN for a few laps around unit, did well ambulating with walker. Incision is clean dry intact and well approximated, covered with abdominal binder. Ramos still in per pt request, MDs made aware, ramos care completed. Up to toilet to try to have a bowel movement. Per pt, passing flatus. by bedside. D/C planning. PLAN MOVING FORWARD: Will continue to monitor. Encouraging fluid intake and ambulation. Pain management. D/C planning. INDIVIDUALIZED FALL PREVENTION INTERVENTIONS: Patient-specific fall risk factors per assessment: pain, recent surgery Assistance: 1 assist, FWW Supervision: Arms reach Surveillance: Bed locked in low position, call miller within reach, purposeful hourly rounding, clutter free environment, bed/chair alarm on, family at bedside Patient-specific fall prevention interventions for sensory deficits provided: Yes CPG GOAL OUTCOME EVALUATION: Continue care plan as documented. Goal: Individualization & Mutuality Outcome: Ongoing (Interventions Implemented as Appropriate) 07/17/18 0151 Mutuality/Individual Preferences What Anxieties, Fears or Concerns Do You Have About Your Health or Care? Unable to eat and hold food down. What Questions Do You Have About Your Health or Care? None at the moment. What Information Would Help Us Give You More Personalized Care? Care has been excellent. Goal: Fall Prevention-Safe Patient Handling Outcome: Ongoing (Interventions Implemented as Appropriate) 07/18/18 0800 07/18/18 1411 07/18/18 1600 Daily Care Interventions Self-Care Promotion -- -- -- [place] Risk History of Falling 25 -- -- Secondary Diagnosis 15 -- -- Ambulatory Aids 15 -- -- Intravenous Therapy/Heparin/Saline Lock 20 -- -- Gait/Transferring 0 -- -- Mental Status 0 -- -- Score 75 -- -- OTHER [place] Risk High -- -- Restraint Interventions Safety Promotion/Fall Prevention -- -- safety round/check completed Positioning Body Position -- -- independent Activity Activity Type -- ambulated in mueller -- Activity Assistance Provided -- assistance, 1 person -- Assistive Device Utilized -- front-wheel walker -- 07/18/18 1738 Daily Care Interventions Self-Care Promotion BADL personal objects within reach;BADL personal routines maintained;independence encouraged;safe use of adaptive equipment encouraged [place] Risk History of Falling -- Secondary Diagnosis -- Ambulatory Aids -- Intravenous Therapy/Heparin/Saline Lock -- Gait/Transferring -- Mental Status -- Score -- OTHER [place] Risk -- Restraint Interventions Safety Promotion/Fall Prevention -- Positioning Body Position -- Activity Activity Type -- Activity Assistance Provided -- Assistive Device Utilized -- Goal: Infection Control Outcome: Ongoing (Interventions Implemented as Appropriate) 07/18/18 0800 07/18/18 1600 Safety Interventions Isolation Precautions -- standard precautions maintained Infection Prevention -- environmental surveillance performed Coping Strategies Supportive Measures active listening utilized;counseling provided;decision- making supported;goal setting facilitated;positive reinforcement provided;problem solving facilitated;relaxation techniques promoted;self-care encouraged;self-reflection promoted;self-responsibility promoted;verbalization offeelings encouraged -- Goal: Discharge Needs Assessment Outcome: Ongoing (Interventions Implemented as Appropriate) 07/18/181737 Discharge Needs Assessment Discharge Disposition still a patient Goal: Interdisciplinary Rounds/Family Conf Outcome: Ongoing (Interventions Implemented as Appropriate) 07/18/188 Interdisciplinary Rounds/Family Conf Participants nursing;major case detective;family;occupational therapy;physical therapy;physician;patient * Plan of Care - Kathryn Candelaria, PT - 07/18/2018 5:25 PM EST Physical Therapy Contact Note Consult received and patient chart reviewed. Met with pt for initial PT evaluation, however pt pleasantly deferring due to mobility earlier in day and increased pain/fatigue. Agreeable to PT follow up in AM. Will continue to follow up as appropriate during hospital course. Please page with any questions or concerns. Kathryn Candelaria, PT, DPT Pager: [phone] 07/18/18 Inpatient Rehabilitation Department 07/18/18 4997 Rehab Evaluation Document Type contact Total Evaluation Minutes, Physical Therapy 0 Living Environment Patient population Adult Living Environment Living Environment Comment pt lives with her in 1 level log cabin. Has FOS w/ L sided rail to enter. Has walk in shower w/ built in seat, GBs and raised toilet. Sleeps in regular bed (high), but has mechanical lift recliner on porch (currently attempting to move indoors). Functional Level Prior Prior Functional Level Comment pt typically independent without AD. Has a FWW. home 02/01 and can assist with everything. Also has leg heel reducer at home Self-Care Dominant Hand right * Plan of Care - Tae Morocho, OT - 07/18/2018 2:45 PM EST Occupational Therapy Evaluation Pertinent History of Current Problem: (P) Isaura Aguiar is a 77 y.o. female with PMH ovarian cancer s/p JOANN BSO and cisplatin, cytoxan (1994), L Breast IDC s/p bilateral mastectomy (2005) (+ BRCA2 mutation), metastatic urothelial carcinoma s/p right nephroureterectomy 2014 who presents with symptoms of abdominal pain, nausea, vomiting which started at 11 pm on 07/15. At time of OT eval on 07/18 pt was POD #1 ventral hernia repair. Precautions/Restrictions: (P) fall, other (see comments) Precautions Comments: (P) Full code, drain in LLQ, midline incision, IV and ramos. Assessment: Pt has been seen for occupational therapy evaluation, please refer to associated flowsheet data listed below for details. Isaura Aguiar presents with the following performance skill deficits and client factors: reduced ROM, increased pain, reduced mobility. These performance deficits have led to activity limitations and participation restrictions in the following areas of occupation: dressing, bathing, grooming, toileting, mobility, transferring, home management, roles/routines,leisure, community mobility, communication, and social participation. However, despite the deficitslisted above pt demonstrates the ability to complete ADLs w/ conditional independence using AE as needed w/ great support at home from spouse Anticipate that pt will return home with assistance once medically ready. Do not anticipate further OT needs while hospitalized. Staff Recommendations: Encourage OOB activity w/ assist x 1 using walker and participation in all self care tasks. Anticipated Discharge Disposition: (P) home with home health, home with assist Pager: [phone] Tae Morocho OT 07/18/2018 Occupational Therapy Rehabilitation Department 2017 OT Evaluation Code Rationale: ?? Diagnosis & Pertinent Co-Morbidities affecting Plan of Care: see PMHx ?? Occupational Profile & Client History: Brief Expanded Extensive x ?? Assessment of Occupational Performance: 1-3 performance deficits x 3-5 performance deficits 5 + performance deficits ?? Clinical Decision Making: Low Moderate High x Clinical decision making of low complexity using standardized patient assessment instrument and measurable assessment of functional outcome. 07/18/18 1445 Rehab Evaluation Document Type evaluation Total Evaluation Minutes, Occupational Therapy 26 (Low + SCHM x 1) Patient Effort excellent Symptoms Noted During/After Treatment none General Information Patient Profile Review yes Onset of Illness/Injury or Date of Surgery 07/16/18 Referring Physician Phani Patient/Family/Caregiver Comments/Observations I have a sock aide....my . General Observations of Patient Pt reclined laying in bed on RA w/ call light in reach upon OT arrival and leaving. Pertinent History of Current Problem Isaura Aguiar is a 77 y.o. female with PMH ovarian cancer s/p JOANN BSO and cisplatin, cytoxan (1994), L Breast IDC s/p bilateral mastectomy (2005) (+ BRCA2 mutation), metastatic urothelial carcinoma s/p right nephroureterectomy 2014 who presents with symptomsof abdominal pain, nausea, vomiting which started at 11 pm on 07/15. At time of OT eval on 07/18 pt was POD #1 ventral hernia repair. Hearing Precautions/Limitations WNL Precautions/Restrictions fall;other (see comments) Precautions Comments Full code, drain in LLQ, midline incision, IV and ramos. Treatment Number OT 1 Living Environment Patient population Adult Living Environment Living Environment Comment Pt lives w/ her spouse (who is in exceptional health) in a log cabin w/ flat ground to enter into home and 14 steps up w/ rail on left side. Pt able to live on main level. Pt has a walk in shower w/ built in seat and grab bars and raised toilet seat. Functional Level Prior Prior Functional Level Comment Pt was I w/ I/ADLs, spouse will complete all IADLs and pt hsa a FWW but reports being I at baseline. Self-Care Dominant Hand right Vital Signs Heart Rate 91 SpO2 97 % O2 Device RA Vision Assessment/Intervention Additional Documentation Vision Assessment/Intervention (Group) Vision Assessment/Intervention Visual Impairment/Limitations WNL;corrective lenses for reading (Cataract surgery in Apr 2017. ) Cognitive Assessment/Intervention Additional Documentation Cognitive Assessment Interventions (Group) Cognitive Assessment Interventions Behavior/Mood Observations (Cognitive) WNL/WFL;behavior appropriate to situation;alert;cooperative Orientation Status (Cognitive) oriented x 4 Attention (Cognitive) WNL/WFL Follows Commands/Answers Questions (Cognitive) able to follow multi-step instructions;100% of the time Personal Safety (Cognitive) WNL/WFL Pain Scale/Rating Pain Assessment Scale Numbers (Numeric Rating Pain Scale) Pain Level 0 ROM (Range of Motion) Additional Documentation General Assessment (Group) General Range of Motion no range of motion deficits identified General Range of Motion Detail WFL grossly. MMT (Manual Muscle Testing) Additional Documentation General Assessment (Group) General Manual Muscle Testing Assessment Detail WFL grossly. General Assessment General Manual Muscle Testing Assessment no strength deficits identified Mobility Assessment/Training Additional Documentation Transfer Assessment/Treatment (Group);Bed Mobility Assessment/Treatment (Group);Gait Assessment/Treatment (Group) Bed Mobility Assessment/Treatment Assistive Device (Bed Mobility) bed rails;other (see comments) (HOB elevated) Lukalq-rv-Tdr [place] (Bed Mobility) supervision required;verbal cues required Onx-bv-Scrzgz [place] (Bed Mobility) moderate assist (50% patient effort);verbal cues required (ModA to move legs into bed. ) Transfer Assessment/Treatment [place] (Sit-Stand Transfers) supervision required;verbal cues required [place] (Stand-Sit Transfers) supervision required;verbal cues required Iid-Jfnnz-Zac Assistive Device (Transfers) rolling walker [place] (Toilet Transfers) conditional independence Assistive Device (Toilet Transfers) rolling walker Gait Assessment/Treatment [place] (Gait) supervision required Assistive Device (Gait) rolling walker Distance in Feet (Gait) 20ft ADL Assessment/Intervention Additional Documentation Bathing Assessment/Training (Group);Grooming Assessment/Training (Group);IADL Assessment/Training: Comment (Row);Lower Body Dressing Assessment/Training (Group);Self-Feeding Assessment/Training (Group);Toileting Assessment/Training (Group);Upper Body Dressing Assessment/Training (Group) Bathing Assessment/Training Comment (Bathing) Anticipate supervision using LH bath sponge (OT issued and instructed pt in use). Upper Body Dressing Assessment/Training Comment (UB Dressing) Anticipate I. Lower Body Dressing Assessment/Training Position (LB Dressing) sitting [place] Level (LB Dressing) conditional independence Impairments (LB Dressing) ROM (range of motion) decreased;pain Comment (LB Dressing) OT issued ropeman, dressing stick and sock aide, provided verbal edu and thereafter pt sat EOB and used all AE w/ supervision. Toileting Assessment/Training Position (Toileting) sitting [place] Level (Toileting) conditional independence Comment (Toileting) Ramos cath, pt demonstrates ability to reach to complete hayley care. Grooming Assessment/Training Comment (Grooming) Anticipate I. Self-Feeding Assessment/Training Comment (Self-Feeding) Anticipate I. Coping Verbalized Emotional State happiness Observed Emotional State cooperative Plan of Care Review Plan Of Care Reviewed With patient Clinical Impression Criteria for Skilled Therapeutic Interventions Met no significant expected improvement in functional status Therapy Frequency evaluation only Anticipated Discharge Disposition home with home health;home with assist General Therapy Interventions Additional Documentation Planned Therapy Interventions (Group) Planned Therapy Interventions ADL retraining * Care Management - Jacob eLa RN - 07/18/2018 6:30 AM EST In am pt felt spasms in lower abdomen and requested to walk to the restroom. She had leaked urine around ramos catheter while sitting on the toilet sit. I notified - ordered to discontinue ramos but pt requested to wait for another hour because she wants to rest in bed after this walk to toiletfearing that she will need to use restroom again and cannot tolerate bed hdz (per pt).. * Op Note - Kavitha Carroll MD - 07/17/2018 2:02 PM EST Operative Note Patient Name: Isaura Aguiar : [id number] MR#: [id number] Case Date: 07/17/2018 Surgeon: Surgeon(s) and Role: * Kavitha Carroll MD - Primary * Aissatou Garcia MD - Resident-Surgeon Chief * Bobo Larose MD - Resident-Surgeon Mo Preoperative diagnosis: ventral hernia Postoperative diagnosis: ventral hernia Procedure(s) (LRB): REPAIR INITIAL INCISIONAL OR VENTRAL HERNIA REDUCIBLE (WRVU 11.92) (N/A) MODIFIER MESH,BARD SOFT MESH (Midline) Anesthesia: General Findings: 10 x 10 centimeter defect. Retro-rectus repair with Bard mesh. Complications: none Estimated Blood Loss: 50 mL Specimens removed during surgery: Order Name Source Comment Collection Info Order Time SPECIMEN TO PATHOLOGY ventral hernia Hernia sac excision 07/17/2018 10:52 AM Number of tissue samples (in container) 1 Time specimen removed from patient: 10:51 AM Fluids: 1500 mls PRBCs: none (See Anesthesia Record/Report for Other Blood Products) Urine Output: 125 mL Drains: 19 Fr. Rachid in subcutaneous space Disposition: awakened from anesthesia, extubated and taken to the recovery room in a stable condition, having suffered no apparent untoward event. Condition: doing well without problems (Please see the Surgical Encounter Summary for any Implant and Specimen details pertinent to this patient.) Infection Bundle used? N/A Description of the Procedure: 77F with ext PMH as above, presenting with what appears to be a severe episode of ventral hernia incarceration, since relieved by the time of our exam. She has a high grade urothelial cancer with positive margins and may well have recurrent tumor after her resection in 2017. PET scan done 03/28 didnot reveal evidence of recurrence. At this point she does not have evidence of strangulation or ongoing obstruction but she has had multiple episodes of symptomatic incarceration and this should be repaired. Hernia is 8 x 9 cm to my measurement of the CT scan. The significant risk or recurrence considering the high intraabdominal pressure associated with her obesity was discussed. ?? Indications for the Procedure: Isaura Aguiar was identified in the operating room. She was positioned supine on the operating room table and general endotracheal anesthesia was induced. Cefazolin was administered for preoperative prophylaxis. The abdomen was prepped and draped in a sterile fashion. A timeout was performed confirming the patient and planned procedure. A midline incision was created and dissection carried down until the hernia sac was identified. Thehernia sac was circumferentially identified and freed from the surrounding fascia. The hernia sac was then entered and the hernia contents reduced. The hernia sac was excised from the fascia. The fascial defect was then measured and measured 10 cm in length and 10 cm in width. The fascia was able to come together but with a moderate amount of tension. Seeing this, we elected to proceed with a retrorectus repair. A incision was made along the underside of each lateral defect, and the posterior sheath from the rectus muscle, being careful to avoid any perforators. We then reapproximated the posterior sheath using 0 PDS suture. We then utilized a piece of Bard polypropylene mesh. An 11 x 17 cm piece of mesh was used and cut to size to overlie the defect. It was sutured in place using multiple interrupted sutures of 0 PDS. This repair allowed to the fascia to reapproximate withouttension. It was closed using #1 PDS suture. The abdomen was irrigated. A 19 [place] Rachid drain was placed in subcutaneous space. The skin was then closed in multiple layers using 3-0 Vicryl and a running 4-0 Monocryl suture. The patient tolerated this procedure without incident and was awakened from anesthesia having suffered no untoward effects Dr. Carroll was present and scrubbed for the entirety of this procedure. Attestation: Case Date: 07/17/2018 I was present and I participated during the entire procedure (does not need to include opening and closing). KAVITHA CARROLL MD 07/18/2018 * Initial Assessments - Halina Nance RN - 07/17/2018 1:40 PM EST Office of Care Management Initial Assessment Halina Nance RN reviewed record and discussed patient with Care Team. Source of Information: patient was in the OR so information gathered is from Care Team and patient's medical record Introduced self/reviewed role; services accepted. Reason for Hospitalization: Reason for Admission as Stated by Patient: Abdominal Hernia Past Medical History: Diagnosis Date ??? Benign essential tremor ??? 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 Hypertension ??? Osteopenia 01/22/2011 ??? Stage III Ovarian cancer Hospitalizations Within the Past 30 Days: none Anticipated Length Of Stay (If known): Expected Length of Hospitalization: undetermined Current Decision-Making Capacity: able to make wants/needs known Advance Care Planning: Code Status: Full Advance Directives on file; spouse Taran is primary HC agent (phone: [phone]), her three children are alternates Current Coping/Education/Information Needs: post-surgical care Current Functional Ability: unavailable for IA; in OR for ventral hernia repari Functional Status Prior to Admission: was apparently doing well at home but had medical concerns/GIsymptoms related to known ventral hernia seen on CT 2018. Home Environment: single family home in [place], [place]; lives with spouse Social & Family Supports/Community Resources: family/neighbors/friends Behavioral Health History: none mentioned Substance Use/Abuse: none noted Other Pertinent/Service Specific Information: to be determined Health/Prescription Coverage: Primary Insurance: MEDICARE Secondary Insurance: FOR LIFE Prescription Coverage: tri-care Preferred Pharmacy: mail order through [facility] (tri-care) Other: [facility] in [place], [place] Primary Care Provider: Dulce Hidalgo MD [phone] Patient/Caregiver Goals of Treatment: home following surgery Potential Needs for Transition of Care: Rehab/SNF: may not be necessary Home Health: short-term, would be [facility] that covers her town DME: to be determined Dialysis: not needed Community Resources: aware Transportation: private vehicle Other: to be determined Anticipated Barriers to Discharge/Special Considerations: none currently identified Assessment: 77 yo female with known ventral hernia and experienced worsening symptoms over past 24-36 hours. She has PMH ovarian CA, bilateral mastectomy (2005) and metastatic urothelial CA s/p rightnephroureteretomy (2014) Plan: IP admission; meet with patient to formalize d/c plan of care and to identify any barriers for transition. A member of the Care Management team will continue to monitor progress, follow for continuity of care and assist with transition of care planning. Halina Nance RN Pager: [phone] * Brief Op Note - Kavitha Carroll MD - 07/17/2018 1:38 PM EST Brief Operative Note Patient Name: Isaura Augiar : [id number] MR#: [id number] Case Date: 07/17/2018 Surgeon: Surgeon(s) and Role: * Kavihta Carroll MD - Primary * Aissatou Garcia MD - Resident-Surgeon Chief * Bobo Larose MD - Resident-Surgeon Mo Preoperative diagnosis: ventral hernia Postoperative diagnosis: ventral hernia Procedure(s) (LRB): REPAIR INITIAL INCISIONAL OR VENTRAL HERNIA REDUCIBLE (WRVU 11.92) (N/A) MODIFIER MESH,BARD SOFT MESH (Midline) Anesthesia: General Findings: 10 x 10 centimeter defect. Retro-rectus repair with Bard mesh. Complications: none Estimated Blood Loss: 50 mL Specimens removed during surgery: Order Name Source Comment Collection Info Order Time SPECIMEN TO PATHOLOGY ventral hernia Hernia sac excision 07/17/2018 10:52 AM Number of tissue samples (in container) 1 Time specimen removed from patient: 10:51 AM Fluids: 1500 mls PRBCs: none (See Anesthesia Record/Report for Other Blood Products) Urine Output: 125 mL Drains: 19 Fr. Rachid in subcutaneous space Disposition: awakened from anesthesia, extubated and taken to the recovery room in a stable condition, having suffered no apparent untoward event. Condition: doing well without problems (Please see the Surgical Encounter Summary for any Implant and Specimen details pertinent to this patient.) Infection Bundle used? N/A * Plan of Care - Luis Dawson RN - 07/16/2018 9:36 PM EST Problem: Patient Care Overview Goal: Plan of Care Review 07/16/18 4070 Coping/Psychosocial Plan Of Care Reviewed With patient Plan of Care Review Progress progress toward functional goals as expected Comments: OUTCOME EVALUATION NOTE: OUTCOME SUMMARY: Pt admitted to from ED for surgical evaluation and repair of abdominal hernia. PLAN MOVING FORWARD: Surgical repair and pain management. INDIVIDUALIZED FALL PREVENTION INTERVENTIONS: Patient-specific fall risk factors per assessment: [current deficits]: Bilateral knee replacement, and previous fall Assistance [level of assistance required for transfers and ambulation]: Standby Supervision [direct monitoring required during toileting and ADLs]: Independant Surveillance [continuous indirect monitoring]: N/A Patient-specific fall prevention interventions for sensory deficits provided, if applicable: Yes, bed alarm CPG GOAL OUTCOME EVALUATION: documented in this encounter Plan of Treatment Not on file documented as of this encounter Procedures Procedure Name Priority Date/Time Associated Diagnosis Comments IMPLANTABLE DEVICES SCAN 07/23/2018 12:00 AM EST HEMOGRAM Routine 07/19/2018 9:48 AM EST DIFFERENTIAL, AUTOMATED Routine 07/19/2018 9:48 AM EST CBC (WITH DIFF) Routine 07/19/2018 9:48 AM EST BASIC METABOLIC PANEL (NON-FASTING) Routine 07/19/2018 9:48 AM EST URINALYSIS MICROSCOPIC EXAM Routine 07/18/2018 10:56 AM EST URINE HOLD Routine 07/18/2018 10:56 AM EST URINALYSIS WITH REFLEX CULTURE Routine 07/18/2018 10:56 AM EST HEMOGRAM Routine 07/18/2018 5:34 AM EST DIFFERENTIAL, AUTOMATED Routine 07/18/2018 5:34 AM EST CBC (WITH DIFF) Routine 07/18/2018 5:34 AM EST BASIC METABOLIC PANEL (NON-FASTING) Routine 07/18/2018 5:34 AM EST SPECIMEN TO PATHOLOGY Routine 07/17/2018 10:52 AM EST SURGICAL PATHOLOGY REPORT Routine 07/17/2018 10:51 AM EST MODIFIER MESH,BARD SOFT MESH 07/17/2018 9:30 AM EST ventral hernia REPAIR INITIAL INCISIONAL OR VENTRAL HERNIA REDUCIBLE (WRVU 11.92) 07/17/2018 9:30 AM EST ventral hernia HEMOGRAM Routine 07/17/2018 6:15 AM EST DIFFERENTIAL, AUTOMATED Routine 07/17/2018 6:15 AM EST CBC (WITH DIFF) Routine 07/17/2018 6:15 AM EST BASIC METABOLIC PANEL (NON-FASTING) Routine 07/17/2018 6:15 AM EST HEMOGRAM Routine 07/16/2018 9:50 PM EST DIFFERENTIAL, AUTOMATED Routine 07/16/2018 9:50 PM EST CBC (WITH DIFF) Routine 07/16/2018 9:50 PM EST BASIC METABOLIC PANEL (NON-FASTING) Routine 07/16/2018 9:50 PM EST REPAIR INITIAL INCISIONAL OR VENTRAL HERNIA REDUCIBLE Routine 07/16/2018 7:01 PM EST documented in this encounter Results * SCAN DOC: IMPLANTABLE DEVICES (07/23/2018 12:00 AM EST) Narrative 07/23/2018 12:00 AM EST Ordered by an unspecified provider. Scanning Provider MEDIA MGR SCAN EXT O RDR/RSLT * (ABNORMAL) Differential, Automated (07/19/2018 9:48 AM EST) Neutrophils % 78.1 % [facility] Neutr Abs (ANC) 6.61(H) 1.70 - 6.10 x10(3)/mc L [facility] Lymphocytes % 10.8 % [facility] Lymphocytes Abs 0.9 0.9 - 3.2 x10(3)/mc L [facility] Monocytes % 8.0 % [facility] Monocyte Abs 0.7 0.3 - 0.9 x10(3)/mc L [facility] Eosinophils % 1.8 % [facility] Eosinophils Abs 0.2 0.0 - 0.4 x10(3)/mc L [facility] Basophils % 0.2 % [facility] Basophils Abs 0.0 0.0 - 0.1 x10(3)/mc L [facility] Immature Gran % 1.10 % [facility] Comment: Immature granulocytes(IG's)percentage and absolute count will include metamyelocytes, myelocytes, and promyelocytes. Blood smears from CBCs yielding IG's will be scanned manually for concordance. If this scan disagrees with the automated IG or if promyelocytes are noted, a manual differential will be performed. [place] Gran Abs 0.09(H) 0.00 - 0.04 x10(3)/[place] [facility] LABORATORY Blood specimen (specimen) 07/19/2018 9:48 AM EST 07/19/2018 10:04 AM EST Narrative Resulting Agency Comment Spec In Lab Aissatou Garcia MD HEMATOLOGY ORDERABLE S [facility] [place] [address] * (ABNORMAL) Hemogram (07/19/2018 9:48 AM EST) WBC 8.5 4.0 - 9.5 x10(3)/[facility] LABORATORY RBC 3.60(L) 4.00 - 5.21 x10(6)/[facility] LABORATORY Hemoglobin 10.2(L) 11.7 - 15.5 gm/dL [facility] LABORATORY Hematocrit 32.9(L) 35.7 - 45.8 % [facility] MCV 91.4 82.6 - 94.4 fL [facility] MCH 28.3 27.1 - 32.0 pg [facility] MCHC 31.0(L) 31.7 - 35.0 gm/dL [facility] Platelets 190 145 - 357 x10(3)/[facility] [place]DWSD 54.3(H) 37.0 - 46.0 [facility] RDWCV 16.1(H) 11.5 - 14.1 % [facility] MPV 10.5 7.6 - 12.9 [facility] nRBC % Auto 0.0 % [facility] LABORATORY nRBC Abs Auto 0.000 0.000 - 0.000 x10(3)/mcL [facility] LABORATORY Blood specimen (specimen) 07/19/2018 9:48 AM EST 07/19/2018 10:04 AM EST Narrative Resulting Agency Comment Spec In Lab Aissatou Garcia MD HEMATOLOGY ORDERABLE S [facility] [place] [address] * (ABNORMAL) Basic Metabolic Panel (non-fasting) (07/19/2018 9:48 AM EST) Glucose Lvl 140 65 - 199 mg/dL [facility] LABORATORY Comment:Diabetes: >=200 mg/d L plus symptoms BUN 17 8 - 18 mg/dL [facility] Creatinine 1.50(H) 0.70 - 1.20 mg/dL [facility] Sodium 134(L) 135 - 145 mmol/L [facility] Potassium 4.0 3.5 - 5.0 mmol/L [facility] LAB[facility]ORY Comment: Please note: ??Patients with WBC >100,000 may have falsely elevated Potassium levels. ??For accurate Potassium quantification in these patients send serum separator tube (gold top) for subsequent determinations. ??Contact the Clinical Chemistry Laboratory if there are any questions. Chloride 97(L) 98 - 107 mmol/L [facility]AT[facility] CO2 23 22 - 31 mmol/L [facility] Anion Gap 14 5 - 15 mmol/L [facility] Calcium 8.7 8.5 - 10.5 mg/dL [facility] Estimated GFR 34(L) >=60 mL/min/1. 73 m?? [facility] LABORATORY Comment: The eGFR was calculated using the CKD-EPI equation. As with all creatinine based estimates of kidney function, eGFR values calculated with the CKD-EPI equation are not accurate in patients with acute kidney failure, extremes of body mass or the acutely ill. [email or web address] eGFR 39(L) >=60 mL/min/1. 73 m?? [facility] LABORATORY Comment: The eGFR was calculated using the CKD-EPI equation. As with all creatinine based estimates of kidney function, eGFR values calculated with the CKD-EPI equation are not accurate in patients with acute kidney failure, extremes of body mass or the acutely ill. [email or web address] Blood specimen (specimen) 07/19/2018 9:48 AM EST 07/19/2018 10:04 AM EST Narrative Resulting Agency Comment Spec In Lab Howard Jeronimo MD CHEMISTRY ORDERABLES Performing Organization Address [facility] Co de Phone Number [facility] [place] [address] * (ABNORMAL) Urinalysis Microscopic Exam (07/18/2018 10:56 AM EST) RBC UA <1 0 - 4 /HPF [facility] WBC UA 4 0 - 5 /HPF [facility] Bacteria UA Rare(A) None /HPF [facility] Squam Epith UA <1 <=4 /HPF [facility]ORATORY Urine specimen obtained by clean catch procedure (specimen) 07/18/2018 10:56 AM EST 07/18/2018 11:26 AM EST Narrative Resulting Agency Comment Spec In Lab Aissatou Garcia MD URINE ORDERABLES Performing Organization Address City/[facility]/ZIP Co de Phone Number [facility] [place] [address] * Urine Hold (07/18/2018 10:56 AM EST) Urine Hold Sample in lab. [facility]OR[facility] Urine specimen (specimen) Urine / Unknown 07/18/2018 10:56 AM EST 07/18/2018 11:25 AM EST Aissatou Garcia MD URINE ORDERABLES Performing Organization Address City/[facility]/ZIP Co de Phone Number [facility] [place] [address] * (ABNORMAL) Urinalysis with reflex Culture (07/18/2018 10:56 AM EST) Glucose UA Negative Negative mg/dL [facility] Protein UA Negative Negative mg/dL [facility] Bilirubin UA Negative Negative mg/dL [facility] Comment: Clinical correlation required for positive Urine Bilirubin results as false positive may occur with some drugs and drug related products. If a false positive is suspected a serum total bilirubin should be considered if clinically indicated. Urobilinogen UA Normal Normal mg/dL [facility] pH UA 5.0 5.0 - 8.0 [facility] Blood UA Negative Negative mg/dL [facility] Ketones UA Negative Negative mg/dL [facility] Nitrite UA Negative Negative [facility] Leukocytes UA Trace(A) Negative [facility] LABORATORY Appearance UA Clear Clear [facility] Spec Lebo UA 1.012 1.002 - 1.030 [facility] Color UA Yellow Yellow [facility] Culture Reflexed No [facility] LABORATORY Urine specimen obtained by clean catch procedure (specimen) 07/18/2018 10:56 AM EST 07/18/2018 11:26 AM EST Narrative Resulting Agency Comment Spec In Lab Howard Jeronimo MD URINE ORDERABLES [facility] [place] [address] * Differential, Automated (07/18/2018 5:34 AM EST) Neutrophils % 72.6 % [facility] LABORATORY Neutr Abs (ANC) 4.85 1.70 - 6.10 x10(3)/[facility] LABORATORY Lymphocytes % 16.7 % [facility] LABORATORY Lymphocytes Abs 1.1 0.9 - 3.2 x10(3)/[facility] LABORATORY Monocytes % 9.3 % [facility] Monocyte Abs 0.6 0.3 - 0.9 x10(3)/[facility] LABORATORY Eosinophils % 1.0 % [facility] LABORATORY Eosinophils Abs 0.1 0.0 - 0.4 x10(3)/[facility] LABORATORY Basophils % 0.1 % [facility] Basophils Abs 0.0 0.0 - 0.1 x10(3)/[facility] LABORATORY Immature Gran % 0.30 % [facility]AT[facility] Comment: Immature granulocytes(IG's)percentage and absolute count will include metamyelocytes, myelocytes, and promyelocytes. Blood smears from CBCs yielding IG's will be scanned manually for concordance. If this scan disagrees with the automated IG or if promyelocytes are noted, a manual differential will be performed. Shoshana Gran Abs 0.02 0.00 - 0.04 x10(3)/[facility] LABORATORY Blood specimen (specimen) 07/18/2018 5:34 AM EST 07/18/2018 5:43 AM EST Narrative Resulting Agency Comment Spec In Lab Aissatou Garcia MD HEMATOLOGY ORDERABLE S [facility] [place] [address] * (ABNORMAL) Hemogram (07/18/2018 5:34 AM EST) WBC 6.7 4.0 - 9.5 x10(3)/[facility] LABORATORY RBC 3.38(L) 4.00 - 5.21 x10(6)/[facility] LABORATORY Hemoglobin 9.5(L) 11.7 - 15.5 gm/dL [facility] Hematocrit 31.6(L) 35.7 - 45.8 % [facility] MCV 93.5 82.6 - 94.4 fL [facility] MCH 28.1 27.1 - 32.0 pg [facility] MCHC 30.1(L) 31.7 - 35.0 gm/dL [facility] Platelets 182 145 - 357 x10(3)/[facility] LABORATORY RDWSD 56.0(H) 37.0 - 46.0 fL [facility] RDWCV 16.5(H) 11.5 - 14.1 % [facility] MPV 10.4 7.6 - 12.9 fL [facility] nRBC % Auto 0.0 % [facility] nRBC Abs Auto 0.000 0.000 - 0.000 x10(3)/[facility] LABORATORY Blood specimen (specimen) 07/18/2018 5:34 AM EST 07/18/2018 5:43 AM EST Narrative Resulting Agency Comment Spec In Lab Aissatou Garcia MD HEMATOLOGY ORDERABLE S [facility] [place] [address] * (ABNORMAL) Basic Metabolic Panel (non-fasting) (07/18/2018 5:34 AM EST) Glucose Lvl 139 65 - 199 mg/dL [facility] Comment:Diabetes: >=200 mg/d L plus symptoms BUN 20(H) 8 - 18 mg/dL [facility] Creatinine 1.50(H) 0.70 - 1.20 mg/dL [facility] Sodium 135 135 - 145 mmol/L [facility] Potassium 4.2 3.5 - 5.0 mmol/L [facility] Comment: Please note: ??Patients with WBC >100,000 may have falsely elevated Potassium levels. ??For accurate Potassium quantification in these patients send serum separator tube (gold top) for subsequent determinations. ??Contact the Clinical Chemistry Laboratory if there are any questions. Chloride 100 98 - 107 mmol/L [facility] CO2 25 22 - 31 mmol/L [facility] Anion Gap 10 5 - 15 mmol/L [facility] Calcium 8.2(L) 8.5 - 10.5 mg/dL [facility] Estimated GFR 34(L) >=60 mL/min/1. 73 m?? [facility] Comment: The eGFR was calculated using the CKD-EPI equation. As with all creatinine based estimates of kidney function, eGFR values calculated with the CKD-EPI equation are not accurate in patients with acute kidney failure, extremes of body mass or the acutely ill. http://[employer]/[facility] [place] CITYnkf eGFR 39(L) >=60 mL/min/1. 73 m?? [facility] Comment: The eGFR was calculated using the CKD-EPI equation. As with all creatinine based estimates of kidney function, eGFR values calculated with the CKD-EPI equation are not accurate in patients with acute kidney failure, extremes of body mass or the acutely ill. http://[employer]/[facility] [place]nkf Blood specimen (specimen) 07/18/2018 5:34 AM EST 07/18/2018 5:43 AM EST Narrative Resulting Agency Comment Spec In Lab Howard Jeronimo MD CHEMISTRY ORDERABLES Performing Organization Address [facility] Co de Phone Number [facility] [place] [address] * Specimen to Pathology (07/17/2018 10:52 AM EST) AP Specimen 07/17/2018 10:5 2 AM EST 07/17/2018 2:11 PM EST Narrative [facility] LABOR[facility] - 07/17/2018 2:11 PM EST Specimen requisition ordered. ??Separate Pathology report to follow Resulting Agency Comment Spec In Lab Howard Jeronimo MD PATHOLOGY/CYTOLOGY O RDERABLES Performing Organization Address [facility] Co de Phone Number [facility] [place] [address] * Surgical Pathology Report (07/17/2018 10:51 AM EST) FINAL DIAGNOSIS (AP) [id number] ? Location: [facility]; [facility]; The signing pathologist has (i) examined the relevant preparation(s) for the specimen(s) and (ii) rendered or confirmed the diagnosis(es). . ?Surgical Pathology DIAGNOSIS A - Fibromembranous tissue, hernia sac. ??Gross surgical pathology examination. Electronically signed by: ??Anish KWOK, Angus Sanchez Verified: ??07/18/[address] ?[address] st, Bone & Soft Tissue Pathologist Performed at: ??-[facility] [place] Dept. of Pathology, [place], [place] CLINICAL INFORMATION Specimen Submitted: A - Hernia sac Clinical History and Diagnosis: Ventral hernia SPECIMEN PROCESSING A - Labeled/Fixative: Hernia sac, fresh. Quantity/Size/Weig ht: Single, 10.5 x 5.5 x 1.5 cm Tissue Description: Soft, valencia-pink, semitransparent, membranous tissue without grossly identifiable lesions. Sections/Processin g: No sections submitted, gross diagnosis only ??ale 07/18/2018 10:02 AM EST [facility] HERNIA SAC / Unknown 07/17/2018 10:51 AM EST 07/17/2018 10:51 AM EST Kavitha Carroll MD PATHOLOGY/CYTOLOGY O RDERABLES [facility] [place] [address] * Differential, Automated (07/17/2018 6:15 AM EST) Neutrophils % 59.1 % [facility] Neutr Abs (ANC) 2.65 1.70 - 6.10 x10(3)/mcL [facility] Lymphocytes % 28.3 % [facility] Lymphocytes Abs 1.3 0.9 - 3.2 x10(3)/[facility] LABORATORY Monocytes % 8.9 % [facility] Monocyte Abs 0.4 0.3 - 0.9 x10(3)/[facility] LABORATORY Eosinophils % 3.3 % [facility] Eosinophils Abs 0.2 0.0 - 0.4 x10(3)/[facility] LABORATORY Basophils % 0.2 % [facility] [place] Basophils Abs 0.0 0.0 - 0.1 x10(3)/[facility] LABORATORY Immature Gran % 0.20 % [facility] Comment: Immature granulocytes(IG's)percentage and absolute count will include metamyelocytes, myelocytes, and promyelocytes. Blood smears from CBCs yielding IG's will be scanned manually for concordance. If this scan disagrees with the automated IG or if promyelocytes are noted, a manual differential will be performed. Shoshana Gran Abs 0.01 0.00 - 0.04 x10(3)/[facility] LABORATORY Blood specimen (specimen) 07/17/2018 6:15 AM EST 07/17/2018 6:29 AM EST Narrative Resulting Agency Comment Spec In Lab Vasquez Miles MD HEMATOLOGY ORDERABLE S [facility] [place] [address] * (ABNORMAL) Hemogram (07/17/2018 6:15 AM EST) WBC 4.5 4.0 - 9.5 x10(3)/[facility] LABORATORY RBC 3.41(L) 4.00 - 5.21 x10(6)/[facility] [place]oglobin 9.7(L) 11.7 - 15.5 gm/dL [facility] Hematocrit 30.9(L) 35.7 - 45.8 % [facility] MCV 90.6 82.6 - 94.4 fL [facility] MCH 28.4 27.1 - 32.0 pg [facility] MCHC 31.4(L) 31.7 - 35.0 gm/dL [facility] Platelets 176 145 - 357 x10(3)/[facility] LABORATORY RDWSD 52.9(H) 37.0 - 46.0 [facility] LABORATORY RDWCV 16.0(H) 11.5 - 14.1 % [facility] MPV 10.0 7.6 - 12.9 [facility] LABORATORY nRBC % Auto 0.0 % [facility] nRBC Abs Auto 0.000 0.000 - 0.000 x10(3)/[facility] LABORATORY Blood specimen (specimen) 07/17/2018 6:15 AM EST 07/17/2018 6:29 AM EST Narrative Resulting Agency Comment Spec In Lab Vasquez Miles MD HEMATOLOGY ORDERABLE S [facility] [place] [address] * (ABNORMAL) Basic Metabolic Panel (non-fasting) (07/17/2018 6:15 AM EST) Glucose Lvl 106 65 - 199 mg/dL [facility] Comment:Diabetes: >=200 mg/d L plus symptoms BUN 18 8 - 18 mg/dL [facility] Creatinine 1.17 0.70 - 1.20 mg/dL [facility] Sodium 139 135 - 145 mmol/L [facility] Potassium 4.0 3.5 - 5.0 mmol/L [facility] Comment: Please note: ??Patients with WBC >100,000 may have falsely elevated Potassium levels. ??For accurate Potassium quantification in these patients send serum separator tube (gold top) for subsequent determinations. ??Contact the Clinical Chemistry Laboratory if there are any questions. Chloride 103 98 - 107 mmol/L [facility] CO2 27 22 - 31 mmol/L [facility] Anion Gap 9 5 - 15 mmol/L [facility] Calcium 8.6 8.5 - 10.5 mg/dL [facility] Estimated GFR 46(L) >=60 mL/min/1. 73 m?? [facility] Comment: The eGFR was calculated using the CKD-EPI equation. As with all creatinine based estimates of kidney function, eGFR values calculated with the CKD-EPI equation are not accurate in patients with acute kidney failure, extremes of body mass or the acutely ill. http://[employer]/[facility] [place] CITYnkf eGFR 53(L) >=60 mL/min/1. 73 m?? [facility] Comment: The eGFR was calculated using the CKD-EPI equation. As with all creatinine based estimates of kidney function, eGFR values calculated with the CKD-EPI equation are not accurate in patients with acute kidney failure, extremes of body mass or the acutely ill. http://[employer]/[facility] [place] CITYnkf Blood specimen (specimen) 07/17/2018 6:15 AM EST 07/17/2018 6:29 AM EST Narrative Resulting Agency Comment Spec In Lab Howard Jeronimo MD CHEMISTRY ORDERABLES [facility] [place] [address] * Differential, Automated (07/16/2018 9:50 PM EST) Neutrophils % 69.9 % [facility] Neutr Abs (ANC) 4.11 1.70 - 6.10 x10(3)/[facility] LABORATORY Lymphocytes % 18.9 % [facility] Lymphocytes Abs 1.1 0.9 - 3.2 x10(3)/[facility] LABORATORY Monocytes % 9.2 % [facility] Monocyte Abs 0.5 0.3 - 0.9 x10(3)/[facility] LABORATORY Eosinophils % 1.4 % [facility] Eosinophils Abs 0.1 0.0 - 0.4 x10(3)/[facility] LABORATORY Basophils % 0.3 % [facility] Basophils Abs 0.0 0.0 - 0.1 x10(3)/[facility] LABORATORY Immature Gran % 0.30 % [facility] Comment: Immature granulocytes(IG's)percentage and absolute count will include metamyelocytes, myelocytes, and promyelocytes. Blood smears from CBCs yielding IG's will be scanned manually for concordance. If this scan disagrees with the automated IG or if promyelocytes are noted, a manual differential will be performed. [place]osh[place] Gran Abs 0.02 0.00 - 0.04 x10(3)/[facility] LABORATORY Blood specimen (specimen) 07/16/2018 9:50 PM EST 07/16/2018 9:54 PM EST Narrative Resulting Agency Comment Spec In Lab Vasquez Miles MD HEMATOLOGY ORDERABLE S Performing Organization Address City/State/[facility] Co de Phone Number [facility] [place] [address] * (ABNORMAL) Hemogram (07/16/2018 9:50 PM EST) WBC 5.9 4.0 - 9.5 x10(3)/[facility] LABORATORY RBC 3.67(L) 4.00 - 5.21 x10(6)/[facility] LABORATORY Hemoglobin 10.4(L) 11.7 - 15.5 gm/dL [facility] Hematocrit 32.5(L) 35.7 - 45.8 % [facility] MCV 88.6 82.6 - 94.4 fL [facility] MCH 28.3 27.1 - 32.0 pg [facility] MCHC 32.0 31.7 - 35.0 gm/dL [facility] Platelets 187 145 - 357 x10(3[place] RDWSD 51.2(H) 37.0 - 46.0 fL [facility] RDWCV 15.9(H) 11.5 - 14.1 % [facility] MPV 10.2 7.6 - 12.9 fL [facility] nRBC % Auto 0.0 % [facility] nRBC Abs Auto 0.000 0.000 - 0.000 x10(3)/mcL [facility] Blood specimen (specimen) 07/16/2018 9:50 PM EST 07/16/2018 9:54 PM EST Narrative Resulting Agency Comment Spec In Lab Vasquez Miles MD HEMATOLOGY ORDERABLE S [facility] [place] [address] * (ABNORMAL) Basic Metabolic Panel (non-fasting) (07/16/2018 9:50 PM EST) Glucose Lvl 109 65 - 199 mg/dL [facility] Comment:Diabetes: >=200 mg/d L plus symptoms BUN 20(H) 8 - 18 mg/dL [facility] Creatinine 1.12 0.70 - 1.20 mg/dL [facility] Sodium 140 135 - 145 mmol/L [facility] Potassium 3.9 3.5 - 5.0 mmol/L [facility] Comment: Please note: ??Patients with WBC >100,000 may have falsely elevated Potassium levels. ??For accurate Potassium quantification in these patients send serum separator tube (gold top) for subsequent determinations. ??Contact the Clinical Chemistry Laboratory if there are any questions. Chloride 104 98 - 107 mmol/L [facility] CO2 25 22 - 31 mmol/L [facility] Anion Gap 11 5 - 15 mmol/L [facility] Calcium 8.6 8.5 - 10.5 mg/dL [facility] Estimated GFR 48(L) >=60 mL/min/1. 73 m?? [facility] Comment: The eGFR was calculated using the CKD-EPI equation. As with all creatinine based estimates of kidney function, eGFR values calculated with the CKD-EPI equation are not accurate in patients with acute kidney failure, extremes of body mass or the acutely ill. http://[employer]/[facility] [place] CITYnkf eGFR 56(L) >=60 mL/min/1. 73 m?? [facility] Comment: The eGFR was calculated using the CKD-EPI equation. As with all creatinine based estimates of kidney function, eGFR values calculated with the CKD-EPI equation are not accurate in patients with acute kidney failure, extremes of body mass or the acutely ill. http://[employer]/[facility] [place]nkf Blood specimen (specimen) 07/16/2018 9:50 PM EST 07/16/2018 9:54 PM EST Narrative Resulting Agency Comment Spec In Lab Iva Peres MD CHEMISTRY ORDERABLE S Performing Organization Address City/State/[facility] Co de Phone Number [facility] [place] [address] documented in this encounter Visit Diagnoses Not on filedocumented in this encounter Admitting Diagnoses Diagnosis Ventral hernia Ventral hernia, unspecified, without mention of obstruction or gangrene documented in this encounter Administered Medications Inactive Administered Medications - up to 3 most recent administrations Medication Order MAR Action Action Date Dose Rate Site acetaminophen (TYLENOL) tablet 1,000 mg 1,000 mg, Oral, EVERY 6 HOURS SCHEDULED, First dose on Mon07/16/18 at 1842, Until Discontinued, Maximum dose of acetaminophen is 4000 mg from all sources in 24 hours., Routine Given 07/21/2018 6:27 AM EST 1,000 mg Given 07/21/2018 12:00 AM EST 1,000 mg Given 07/20/2018 6:23 PM EST 1,000 mg bisacodyl (DULCOLAX) EC tablet 10 mg 10 mg, Oral, DAILY PRN, Starting on Mon07/20/18 at 1608, Until 07/21/18 at 1228, Constipation, DO NOT CRUSH OR OPEN, Routine bisacodyl (DULCOLAX) suppository 10 mg 10 mg, Rectal, DAILY PRN, Starting on Mon07/20/18 at 0237, Until 07/21/18 at 1228, Constipation, Administer if no bowel movement within 48 hours to achieve: (1) One bowel movement at least every 48 hours, AND (2) without straining. If multiple PRN bowel medications ordered, start with polyethylene glycol, then lactulose, then oral bisacodyl, then bisacodyl suppository, then magnesium citrate, then tap water enema. Multiple medications may be given concomitantly for constipation., Routine Given 07/20/2018 2:53 PM EST 10 mg BUpivacaine (PF) (MARCAINE) 0.5 % (5 mg/mL) injection ONCE PRN, Starting on Tu07/17/18 at 1319, Until 07/21/18 at 1228, Intra-Operative (Intra-Procedure), Routine Given 07/17/2018 1:19 PM EST 4 mLs 19- Surgical Site lactulose (CHRONULAC) 20 gram/30 mL oral solution 20 g 20 g, Oral, 2 TIMES DAILY PRN, Starting on Mon07/20/18 at 1610, Until 07/21/18 at 1228, Constipation, Routine Given 07/20/2018 4:18 PM EST 20 g ondansetron (ZOFRAN) injection 4-8 mg 4-8 mg, Intravenous, EVERY 8 HOURS PRN, Starting on 07/16/18 at 2035, Until 07/21/18 at 1228, Nausea, Start with 4mg and if ineffective in 30 minutes, give an additional 4mg If multiple antiemetics are ordered, give ondansetron first. Given 07/17/2018 6:16 PM EST 4 mg ondansetron (ZOFRAN) tablet 4-8 mg 4-8 mg, Oral, EVERY 8 HOURS PRN, Starting on 07/16/18 at 2035, Until 07/21/18 at 1228, Nausea, Vomiting, If multiple antiemetics are ordered, use ondansetron first. PO Preferred. If patient unable to take PO, may give IV if ordered. Start with 4mg and if ineffective in 45 minutes, give an additional 4mg. If unable to take PO, may give IV., Routine oxyCODONE (ROXICODONE) immediate release tablet 5 mg 5 mg, Oral, ONCE PRN, 1 dose, Starting on 07/21/18 at 0908, Until 07/21/18 at 1228, Pain, To give prior to discharge., STAT polyethylene glycol (MIRALAX) packet 17 g 17 g, Oral, DAILY PRN, Starting on 07/20/18 at 0237, Until 07/21/18 at 1228, Constipation, Administer if no bowel movement within 48 hours to achieve: (1) One bowel movement at least every 48 hours, AND (2) without straining. If multiple PRN bowel medications ordered, start with polyethylene glycol, then lactulose, then oral bisacodyl, then bisacodyl suppository, then magnesium citrate, then tap water enema. Multiple medications may be given concomitantly for constipation., Routine prochlorperazine (COMPAZINE) injection 10 mg 10 mg, Intravenous, EVERY 6 HOURS PRN, Starting on 07/16/18 at 2035, Until 07/21/18 at 1228, Nausea, Nausea/Vomiting, If multiple antiemetics are ordered, use ondansetron first. If ondansetron ineffective use prochlorperazine. , Routine prochlorperazine (COMPAZINE) tablet 10 mg 10 mg, Oral, EVERY 6 HOURS PRN, Starting on 07/16/18 at 2035, Until 07/21/18 at 1228, Nausea, Nausea/Vomiting, If multiple antiemetics are ordered, use ondansetron first. If ondansetron ineffective use prochlorperazine. PO Preferred. If patient unable to take PO, may give IV if ordered., Routine rivaroxaban (XARELTO) tablet 15 mg 15 mg, Oral, DAILY, First dose on Chloe 07/19/18 at 0900, Until Discontinued, Routine, Restricted anticoagulant, choose the most appropriate response: Continuation of ongoing therapy Given 07/21/2018 8:10 AM EST 15 mg Given 07/20/2018 8:41 AM EST 15 mg Given 07/19/2018 9:23 AM EST 15 mg senna-docusate (PERICOLACE) 8.6-50 mg per tablet 2 tablet 2 tablet, Oral, 2 TIMES DAILY, First dose on Mon07/20/18 at 0900, Until Discontinued, Routine Given 07/21/2018 8:11 AM EST 2 tablets Given 07/20/2018 8:41 AM EST 2 tablets sodium chloride 0.9 % flush 5 mL 5 mL, Intravenous, 2 TIMES DAILY, First dose on Mon07/16/18 at 2100, Until Discontinued, Routine Given 07/21/2018 8:11 AM EST 5 mLs Given 07/20/2018 9:00 PM EST 5 mLs Given 07/20/2018 8:42 AM EST 5 mLs documented in this encounter Active and Recently Administered Medications Times are shown in EST. Scheduled Medication Order 07/19/2018 07/20/2018 07/21/2018 acetaminophen (TYLENOL) tablet 1,000 mg 1,000 mg, Oral, EVERY 6 HOURS SCHEDULED, First dose on Mon07/16/18 at 1842, Until Discontinued, Maximum dose of acetaminophen is 4000 mg from all sources in 24 hours., Routine 0022 (Given - Provider: Jacob Lea RN)0623 (Given - Provider: Jacob Lea RN)1138 (Given - Provider: Miles Caban RN)1827 (Not Given - Provider: Miles Caban RN - Reason: Patient/family refused) 0000 (Given - Provider: Rafaela Kunz RN)0600 (Not Given - Provider: Rafaela Kunz RN - Reason: Patient/family refused)1146 (Given - Provider: Zahra Fink RN)1823 (Given - Provider: Zahra Fink RN) 0000 (Given - Provider: Rafaela Kunz RN)0627 (Given - Provider: Rafaela Kunz RN) rivaroxaban (XARELTO) tablet 15 mg 15 mg, Oral, DAILY, First dose on Mon07/19/18 at 0900, Until Discontinued, Routine, Restricted anticoagulant, choose the most appropriate response: Continuation of ongoing therapy 0923 (Given - Provider: Miles Caban RN) 0841 (Given - Provider: Zahra Fink RN) 0810 (Given - Provider: Zahra Fink RN) senna-docusate (PERICOLACE) 8.6-50 mg per tablet 2 tablet 2 tablet, Oral, 2 TIMES DAILY, First dose on Mon07/20/18 at 0900, Until Discontinued, Routine 0841 (Given - Provider: Zahra Fink RN)2100 (Not Given - Provider: Rafaela Kunz RN - Reason: Order parameters not met) 0811 (Given - Provider: Zahra Fink RN) sodium chloride 0.9 % flush 5 mL 5 mL, Intravenous, 2 TIMES DAILY, First dose on Mon07/16/18 at 2100, Until Discontinued, Routine 0923 (Given - Provider: Miles Caban RN)2100 (Given - Provider: Rafaela Kunz RN) 0842 (Given - Provider: Zahra Fink RN)2100 (Given - Provider: Rafaela Kunz RN) 0811 (Given - Provider: Zahra Fink RN) Continuous Medication Order 07/19/2018 07/20/2018 07/21/2018 lactated Ringers infusion (CANCELED) 75 mL/hr, Intravenous, CONTINUOUS, Starting on Mon07/16/18 at 2100, Until Chloe 07/19/18 at 0945 0923 (New Bag - Provider: Miles Caban RN)1000 (Stopped - Provider: Miles Caban RN) PRN Medication Order 07/19/2018 07/20/2018 07/21/2018 bisacodyl (DULCOLAX) EC tablet 10 mg 10 mg, Oral, DAILY PRN, Starting on Mon07/20/18 at 1608, Until 07/21/18 at 1228, Constipation, DO NOT CRUSH OR OPEN, Routine bisacodyl (DULCOLAX) suppository 10 mg 10 mg, Rectal, DAILY PRN, Starting on Mon07/20/18 at 0237, Until 07/21/18 at 1228, Constipation, Administer if no bowel movement within 48 hours to achieve: (1) One bowel movement at least every 48 hours, AND (2) without straining. If multiple PRN bowel medications ordered, start with polyethylene glycol, then lactulose, then oral bisacodyl, then bisacodyl suppository, then magnesium citrate, then tap water enema. Multiple medications may be given concomitantly for constipation., Routine 1453 (Given - Provider: Zahra Fink RN) lactulose (CHRONULAC) 20 gram/30 mL oral solution 20 g 20 g, Oral, 2 TIMES DAILY PRN, Starting on Mon07/20/18 at 1610, Until 07/21/18 at 1228, Constipation, Routine 1618 (Given - Provider: Zahra Fink, RN) ondansetron (ZOFRAN) injection 4-8 mg(Linked Group 1) 4-8 mg, Intravenous, EVERY 8 HOURS PRN, Starting on 07/16/18 at 2035, Until 07/21/18 at 1228, Nausea, Start with 4mg and if ineffective in 30 minutes, give an additional 4mg If multiple antiemetics are ordered, give ondansetron first. ondansetron (ZOFRAN) tablet 4-8 mg(Linked Group 1) 4-8 mg, Oral, EVERY 8 HOURS PRN, Starting on 07/16/18 at 2035, Until 07/21/18 at 1228, Nausea, Vomiting, If multiple antiemetics are ordered, use ondansetron first. PO Preferred. If patient unable to take PO, may give IV if ordered. Start with 4mg and if ineffective in 45 minutes, give an additional 4mg. If unable to take PO, may give IV., Routine oxyCODONE (ROXICODONE) immediate release tablet 5 mg 5 mg, Oral, ONCE PRN, 1 dose, Starting on 07/21/18 at 0908, Until 07/21/18 at 1228, Pain, To give prior to discharge., STAT oxyCODONE (ROXICODONE) immediate release tablet 5-10 mg (CANCELED)(Linked Group 2) 5-10 mg, Oral, EVERY 4 HOURS PRN, Starting on 07/16/18 at 1840, Until 07/21/18 at 0908, Pain, moderate pain (4-6), Initial dose 5mg. If pain control not adequate in 60 minutes, give additional 5mg, Routine 1138 (Given - Provider: Miles Caban RN) 0000 (Given - Provider: Rafaela Kunz RN)0841 (Given - Provider: Zahra Fink RN) polyethylene glycol (MIRALAX) packet 17 g 17 g, Oral, DAILY PRN, Starting on 07/20/18 at 0237, Until 07/21/18 at 1228, Constipation, Administer if no bowel movement within 48 hours to achieve: (1) One bowel movement at least every 48 hours, AND (2) without straining. If multiple PRN bowel medications ordered, start with polyethylene glycol, then lactulose, then oral bisacodyl, then bisacodyl suppository, then magnesium citrate, then tap water enema. Multiple medications may be given concomitantly for constipation., Routine prochlorperazine (COMPAZINE) injection 10 mg(Linked Group 3) 10 mg, Intravenous, EVERY 6 HOURS PRN, Starting on 07/16/18 at 2035, Until 07/21/18 at 1228, Nausea, Nausea/Vomiting, If multiple antiemetics are ordered, use ondansetron first. If ondansetron ineffective use prochlorperazine. , Routine prochlorperazine (COMPAZINE) tablet 10 mg(Linked Group 3) 10 mg, Oral, EVERY 6 HOURS PRN, Starting on 07/16/18 at 5, Until 07/21/18 at 1228, Nausea, Nausea/Vomiting, If multiple antiemetics are ordered, use ondansetron first. If ondansetron ineffective use prochlorperazine. PO Preferred. If patient unable to take PO, may give IV if ordered., Routine sodium chloride 0.9 % flush 5-20 mL 5-20 mL, Intravenous, EVERY 1 MIN PRN, Starting on Mon07/16/18 at 2034, Until 07/21/18 at 1228, flush, Flush pertains to all indwelling lines. Flush per protocol found in the job aid using the link provided on this medication record., Routine Linked Groups Order Group 1: ondansetron (ZOFRAN) tablet 4-8 mgJump to med 4-8 mg, Oral, EVERY 8 HOURS PRN, Starting on Mon07/16/18 at 5, Until 07/21/18 at 1228, Nausea, Vomiting, If multiple antiemetics are ordered, use ondansetron first. PO Preferred. If patient unable to take PO, may give IV if ordered. Start with 4mg and if ineffective in 45 minutes, give an additional 4mg. If unable to take PO, may give IV., Routine Or ondansetron (ZOFRAN) injection 4-8 mgJump to med 4-8 mg, Intravenous, EVERY 8 HOURS PRN, Starting on Mon07/16/18 at 5, Until 07/21/18 at 1228, Nausea, Start with 4mg and if ineffective in 30 minutes, give an additional 4mg If multiple antiemetics are ordered, give ondansetron first. Group 2: oxyCODONE (ROXICODONE) immediate release tablet 5-10 mg (CANCELED)Jump to med 5-10 mg, Oral, EVERY 4 HOURS PRN, Starting on Mon07/16/18 at 1840, Until 07/21/18 at 0908, Pain, moderate pain (4-6), Initial dose 5mg. If pain control not adequate in 60 minutes, give additional 5mg, Routine Or oxyCODONE (ROXICODONE) immediate release tablet 10-15 mg (CANCELED) 10-15 mg, Oral, EVERY 4 HOURS PRN, Starting on Mon07/16/18 at 1840, Until 07/21/18 at 0908, Pain, severe pain (7-10), Initial dose 10mg. If pain control not adequate in 60 minutes, give additional 5mg, Routine Group 3: prochlorperazine (COMPAZINE) tablet 10 mgJump to med 10 mg, Oral, EVERY 6 HOURS PRN, Starting on Mon07/16/18 at 2034, Until 07/21/18 at 1228, Nausea, Nausea/Vomiting, If multiple antiemetics are ordered, use ondansetron first. If ondansetron ineffective use prochlorperazine. PO Preferred. If patient unable to take PO, may give IV if ordered., Routine Or prochlorperazine (COMPAZINE) injection 10 mgJump to med 10 mg, Intravenous, EVERY 6 HOURS PRN, Starting on Mon07/16/18 at 2034, Until 07/21/18 at 1228, Nausea, Nausea/Vomiting, If multiple antiemetics are ordered, use ondansetron first. If ondansetron ineffective use prochlorperazine. , Routine documented in this encounter Care Teams Waybill Clerk Relationship Specialty Start Date End Date Dulce Hidalgo MD [facility] [address] [place] [address] PCP - General Family Medicine 09/30/16 documented as of this encounter
--- OUTSIDE RECORDS SUMMARY | 2024-01-11 13:19 | XMS_ITS | Encounter Summary ---
[place] [address] Care Team Providers Care Firm Administrator Name Role Phone Dulce Hidalgo MD Primary Care Provider [phone] Encounter Details Date Type Department Care Team (Late st Contact Info) Description 10/05/2018 Telephone [place] [address] Heather Aldridge Social History Tobacco Use Types Packs/Day Years [...] encounter Miscellaneous Notes * Telephone Encounter - Heather Aldridge - 10/05/2018 9:27 AM EDT Isaura Aguiar [id number] Diagnosis: [place] 1. Have you ever had a colonoscopy before? [x] YES [] NO If Yes, Date of Last [place]:_10/2011 [facility] _( pt is bringing her records) If yes, did you have any problems with the procedure? [] YES [x] NO Explain: What type of sedation was used: 2. Do you take any Blood Thinners? [x] YES [] NO If Yes, type: __Xarelto 3. Do you have a Pacemaker or Defibrillator device? [] YES [x] NO If Yes send Enomaly message to [employer] DEVICE CHECK 4. Are you a diabetic? [] YES [x] NO If yes, controlled by meds or diet? 5. Do you have any Allergies to Eggs, Latex or Medications? [x] YES [] NO If Yes, what:__See ED 6. Do you take any Oral Iron Supplements (Including multi vitamins)? [] YES [x] NO 7. Do you have a history of three or more abdominal surgeries? [x] YES [] NO 8. Have you had a problem with sedation or anesthesia? [] YES [x] NO 9. Do you have a c-pap machine or oxygen tank? [] C-PAP [] Oxygen [x] NO 10. Do you take prescription narcotic pain medications? [x] YES [] NO Oxycodone 11. You must have a responsible libertarian stay at the facility during your procedure and drive you home? [x] YES 12. Is there any other information you would like to give us to aid in scheduling? Height: _5'1___ Weight:_276___ BMI: _52.1___ Age:77 y.o. documented in this encounter Plan of Treatment Not on file documented as of this encounter Visit Diagnoses Not on filedocumented in this encounter Care Teams Firm Administrator Relationship Specialty Start Date End Date Dulce Hidalgo MD [facility] [address] [place] [address] PCP - General Family Medicine 09/30/16 documented as of this encounter
--- OUTSIDE RECORDS SUMMARY | 2024-01-11 13:19 | XMS_ITS | Encounter Summary ---
[facility] [place] [address] Care Team Providers Care Corporate Trainer Name Role Phone Dulce Hidalgo MD Primary Care Provider Encounter Details Date Type Department Care Team (Latest Contact Info) Description 11/30/2018 9:19 AM EDT - 11/30/2018 12:44 PM EDT Hospital [place] [id number] Noam Masters MD [facility] [place] [address] Discharge Disposition: Home Social History Tobacco Use [...] Sign Reading Time Taken Comments Blood Pressure 175/66 11/30/2018 12:10 PM EDT Pulse 67 11/30/2018 10:19 AM EDT Temperature 36.5 ??C (97.7 ??F) 11/30/2018 10:19 AM E DT Respiratory Rate 18 11/30/2018 12:10 PM EDT Oxygen Saturation 99% 11/30/2018 12:10 PM EDT Inhaled Oxygen Concentration - - Weight 125.2 kg (276 lb) 11/30/2018 10:19 AM EDT Height - - Body Mass Index 52.15 07/16/2018 9:29 PM EST documented in this encounter Discharge Instructions * Discharge Instructions* Akiko Cee RN - 11/30/2018 11:44 AM EDT UPPER GI ENDOSCOPY WHAT TO EXPECT AFTER THE PROCEDURE Medications You may have a mild sore throat. Ice chips, popsicles, over the counter throat lozenges or spray may help numb your throat. This procedure should not cause a fever. Call your healthcare provider or seek immediate medical attention if: You have trouble swallowing. You have belly pain. Your stools are black or tarlike or have streaks of blood. You are sick to your stomach or cannot keep fluids down. Watch closely for changes in your health, and be sure to contact your doctor IF Your throat still hurts after a day or two You do not get better as expected. Colonoscopy What to expect after the procedure You may feel a little more gassy or bloated than usual. This is normal. You should expect the return of normal bowel function in the 2 to 3 days. Activity Because of the sedation that you received your judgement and reaction time are effected ?? Go home and rest quietly for the remainder of the day. You may resume your normal activities tomorrow. ?? Change from one position to the next slowly. You may lose your balance unexpectedly ?? Be careful on stairs, as you may be unsteady on your feet FOR THE NEXT 24 HRS ?? DO NOT DRIVE OR OPERATE ANY MACHINERY ?? DO NOT DRINK ALCOHOLIC BEVERAGES ?? DO NOT SIGN LEGAL DOCUMENTS ?? If you are a smoker: DO NOT SMOKE WHILE YOU ARE ALONE Diet ?? Start by eating small portions of foods that ordinarily will not upset your stomach . Avoid gas producing foods for the next few days ?? Be gentle with what you choose to start with ?? Drink plenty of fluids ( unless your doctor has told you not to). IV SITE-- slight redness, or tenderness is normal. You can use warm compresses if you become concerned. If the tenderness +/or redness increases or foul drainage and a red streak occurs, please contact your PCP immediately When shoud you call for help? Call 911 anytime you think you may need emergency care. For example If you pass out ( loss of consciousness) If you pass maroon or bloody stools If you have severe belly pain Call your doctor now or seek immediate medical care If your stools are black and tarlike If your stools have streaks of blood, but you did not have a biopsy or any polyps removed If you have belly pain, or your belly is swollen and firm If you vomit If you have a fever If you are very dizzy Watch closely for changes in your health, and be sure to contact your doctor if you have any problems Your doctor will let you know when you will need your next colonoscopy. The results of your test and your risk for colorectal cancer will help your doctor decide how often you need to be checked. Monday-Monday Same Day Endo [phone] [id number]-8p Otherwise contact [phone] and ask to speak to the rn documentation concrete batcher Follow up care is a stein part of your treatment and safety. Be sure to make and go to all appointments, and call your doctor if you are having problems. Discharge instructions reviewed with patient who expresses understanding documented in this encounter Medications at Time [...] as of this encounter H&P Notes * Dakota Martin MD - 11/30/2018 10:55 AM EDT PROBLEM LIST Patient Active Problem List Diagnosis Code ??? [...] ??? Dehydration E86.0 ??? Ventral hernia K43.9 HISTORY OF PRESENT ILLNESS Isaura Aguiar is a 78 y.o. woman who presents for endoscopic evaluation of abdominal pain aftereating. She has a history of polyps. She has been off Xarelto for 3 days. MEDICATIONS No current facility-administered medications on file prior to encounter. Current Outpatient Medications on File Prior to Encounter Medication Sig Dispense Refill ??? cetirizine (ZYRTEC) 10 mg Tablet Take 10 mg by mouth daily. ??? fluticasone (FLONASE) 50 mcg/actuation [place], Suspension 1 spray daily. ??? rivaroxaban (XARELTO) 15 mg Tablet Take 10 mg by mouth daily. ??? omeprazole (PRILOSEC) 10 mg Capsule, Delayed Release(E.C.) Take 10 mg by mouth daily as needed.Daily as needed ??? magnesium oxide (MAG-OX) 400 mg Tablet Take 1 tablet by mouth daily. 30 tablet 2 ??? Calcium Carbonate-Vitamin D3 600 mg(1,500mg) -400 unit Tab Take 1 tablet by mouth daily. Reported on 01/03/2017 ??? hydrochlorothiazide (HYDRODIURIL) 25 mg tablet Take 25 mg by mouth daily. ??? atenolol (TENORMIN) 50 mg tablet ??? simvastatin (ZOCOR) 10 mg tablet ??? oxyCODONE (ROXICODONE) 5 mg Tablet Take 1 tablet by mouth every 6 hours as needed for Pain (To give prior to discharge.). 10 tablet 0 ??? PROCHLORPERAZINE MALEATE (COMPAZINE ORAL) Take by mouth. ??? kvsz-jvr-kts-yri-bhxh-pqer-pec (FIBER 6) 1,000 mg Tablet Take by [...] Reported on 08/15/2017) 20 tablet PRN ??? lactobacillus rhamnosus, GG, (CULTURELLE) 10 billion cell Capsule Take 1 capsule by mouth daily. ??? docusate sodium (COLACE) 100 mg Capsule Take 100 mg by mouth daily. ??? aspirin 81 mg EC tablet Take 81 mg by mouth daily. ??? ACETAMINOPHEN (TYLENOL ORAL) PHYSICAL EXAM: Blood pressure 158/61, pulse 67, temperature 36.5 ??C (97.7 ??F), temperature source Oral, resp. rate 20, weight 125.2 kg (276 lb), SpO2 100 %. GEN: Alert, cooperative. Pleasant. In NAD MP II ASA III HEENT: No oropharyngeal lesions. Neck supple. No masses. Thyroid symmetric LUNGS: CTAB CARD: RRR without m/g/r ABD: Obese. Active BS. Soft. Benign. No masses. No HSM. No succussion splash. No bruits RECENT LABS No results found for this or any previous visit (from the past 24 hour(s)). ASSESSMENT AND PLAN Isaura Aguiar is a 78 y.o. woman who presents for endoscopic evaluation. Risks extensively discussed including bleeding, infection, reaction to anesthesia, perforation, pancreatitis (if applicable), bile duct injury (if applicable), missing a cancer (if applicable) and/or other unforseen complic ation. Consent signed and patient well informed of the risks of the procedure. documented in this encounter Plan of Treatment Not on file documented as of this encounter Procedures Procedure Name Priority Date/Time Associated Diagnosis Comments SPECIMEN TO PATHOLOGY Routine 11/30/2018 11:27 AM EDT COLONOSCOPY Routine 11/30/2018 11:16 AM EDT SURGICAL PATHOLOGY REPORT Routine 11/30/2018 11:11 AM EDT EGD WITH BIOPSY (WRVU 2.39) 11/30/2018 11:03 AM EDT Personal hx of polyps - tubular adenoma 10/17/11, epigastric pain Prep- Split COLONOSCOPY, DIAGNOSTIC (WRVU 3.26) 11/30/2018 11:03 AM EDT Personal hx of polyps - tubular adenoma 10/17/11, epigastric pain Prep- Split UPPER GI ENDOSCOPY Routine 11/30/2018 10 :54 AM EDT documented in this encounter Results * Specimen to Pathology (11/30/2018 11:27 AM EDT) AP Specimen 11/30/2018 11:2 7 AM EDT 11/30/2018 11:27 AM EDT [facility] - 11/30/2018 11:27 AM EDT Specimen requisition ordered. ??Separate Pathology report to follow Noam Masters MD PATHOLOGY/CYTOLOGY ORDERABLES Performing Organization Address [facility]/ZIP Co de Phone Number [facility] [place] [address] * COLONOSCOPY (11/30/2018 11:16 AM EDT) COLONOSCOPY [facility] Endoscopy Procedure Date: 11/30/2018 11:16 AM ? Patient Name: Isaura Aguiar ? N: [id number] ? Date of : 1940 ? Age: 78 ? Order #: [id number] ? Instrument Name: ? Procedure: ? Colonoscopy Indications: ? Generalized abdominal pain Providers: ? Noam Masters MD Referring MD: ?Dulce Hidalgo MD Medicines: ? Monitored Anesthesia Care Complications: ? No immediate complications. Procedure: ? Pre-Anesthesia Assessment: ? - Prior to the procedure, a History ? and Physical was performed, and ? patient medications and allergies ? were reviewed. The patient is ? competent. The risks and benefits of ? the procedure and the sedation ? options and risks were discussed with ? the patient. All questions were ? answered and informed consent was ? obtained. Patient identification and ? proposed procedure were verified by ? the physician in the pre-procedure ? area. Mental Status Examination: ? alert and oriented. Airway ? Examination: normal oropharyngeal ? airway and neck mobility. Respiratory ? Examination: clear to auscultation. ? CV Examination: normal. Prophylactic ? Antibiotics: The patient does not ? require prophylactic antibiotics. ? Prior Anticoagulants: The patient has ? taken no previous anticoagulant or ? antiplatelet agents. ASA Grade ? Assessment: II - A patient with mild ? systemic disease. After reviewing the ? risks and benefits, the patient was ? deemed in satisfactory condition to ? undergo the procedure. The anesthesia ? plan was to use monitored anesthesia ? care (MAC). Immediately prior to ? administration of medications, the ? patient was re-assessed for adequacy ? to receive sedatives. The heart rate, ? respiratory rate, oxygen saturations, ? blood pressure, adequacy of pulmonary ? ventilation, and response to care ? were monitored throughout the ? procedure. The physical status of the ? patient was re-assessed after the ? procedure. ? The procedure, indications, benefits, ? risks and alternatives were explained ? to the patient. Specifically ? discussed were potential ? complications including, but not ? limited to, bleeding, perforation, ? infection, missing a cancer, and ? adverse medication reactions. The ? patient was placed in the left ? lateral decubitus position, and a ? digital rectal exam was performed. ? The colonoscopy was performed without ? difficulty. The patient tolerated the ? procedure well. The quality of the ? bowel preparation was excellent. ? Findings: ? The perianal and digital rectal examinations were ? normal. ? A single large-mouthed diverticulum was found in the ? recto-sigmoid colon. The rest of the colon was ? normal. Withdrawal time 8:15. ? The terminal ileum appeared normal. ? Moderate Sedation: ? Not applicable - See Anesthesia documentation Impression: ?- Diverticulosis in the recto-sigmoid ? colon. ? - The examined portion of the ileum ? was normal. ? - No specimens collected. Recommendation: ?- No source of abdominal pain ? identified. ? - Follow-up as already scheduled ? Attending Participation: ? I personally performed the entire procedure. ? ___ Noam Masters MD 11/30/2018 11:33:54 AM This report has been signed electronically. Number of Addenda: 0 Note Initiated On: 11/30/2018 11:16 AM PROVATION 11/30/2018 11:1 6 AM EDT Dulce Hidalgo MD [facility] * Surgical Pathology Report (11/30/2018 11:11 AM EDT) FINAL DIAGNOSIS (AP) [id number] ? Location: 4T; EA08; A The signing pathologist has (i) examined the relevant preparation(s) for the specimen(s) and (ii) rendered or confirmed the diagnosis(es). . ?Surgical Pathology DIAGNOSIS Stomach, ??biopsy: Gastric antral and fundic gland mucosa with nonspecific reactive gastropathy. No H. pylori-like microorganism is seen. Electronically signed by: ??Soren Vogel MD Verified: ??12/03/2018 ?Pathologist Performed at: ??-[facility] [place] Dept. of Pathology, [place], [place] CLINICAL INFORMATION Specimen Submitted: A - Non targeted gastric bx Clinical History and Diagnosis: 78-year-old female with history of dyspepsia; R/O H. pylori SPECIMEN PROCESSING A - Labeled/Fixative: Non-targeted gastric BX, formalin. Quantity/Size: Four, ranging from 0.2-0.4 cm. Tissue Description: Soft, pink tissues. Sections/Processi ng: Submitted en toto ??in 1 cassette labeled A1. ??sns 12/03/2018 4:16 PM EDT [facility] GI Biopsy 11/30/2018 11:1 1 AM EDT 11/30/2018 11:11 AM EDT Noam Masters MD PATHOLOGY/CYTOLOGY ORDERABLES [facility] [place] [address] * UPPER GI ENDOSCOPY (11/30/2018 10:54 AM EDT) UPPER GI ENDOSCOPY [facility] Endoscopy Procedure Date: 11/30/2018 10:54 AM ? Patient Name: Isaura Aguiar ? Date of : 1940 ? Age: 78 ? Order #: [id number] ? Instrument Name: [id number] ? Procedure: ? Upper GI endoscopy Indications: ? Epigastric abdominal pain Providers: ? Noam Masters MD, Dakota Martin, ? Gemma Dawson MD: ?Dulce Hidalgo MD Medicines: ? Monitored Anesthesia Care Complications: ? No immediate complications. Procedure: ? Pre-Anesthesia Assessment: ? - Prior to the procedure, a History ? and Physical was performed, and ? patient medications and allergies ? were reviewed. The patient is ? competent. The risks and benefits of ? the procedure and the sedation ? options and risks were discussed with ? the patient. All questions were ? answered and informed consent was ? obtained. Patient identification and ? proposed procedure were verified by ? the physician in the pre-procedure ? area. Mental Status Examination: ? alert and oriented. Airway ? Examination: normal oropharyngeal ? airway and neck mobility. Respiratory ? Examination: clear to auscultation. ? CV Examination: normal. Prophylactic ? Antibiotics: The patient does not ? require prophylactic antibiotics. ? Prior Anticoagulants: The patient has ? taken no previous anticoagulant or ? antiplatelet agents. ASA Grade ? Assessment: II - A patient with mild ? systemic disease. After reviewing the ? risks and benefits, the patient was ? deemed in satisfactory condition to ? undergo the procedure. The anesthesia ? plan was to use monitored anesthesia ? care (MAC). Immediately prior to ? administration of medications, the ? patient was re-assessed for adequacy ? to receive sedatives. The heart rate, ? respiratory rate, oxygen saturations, ? blood pressure, adequacy of pulmonary ? ventilation, and response to care ? were monitored throughout the ? procedure. The physical status of the ? patient was re-assessed after the ? procedure. ? The procedure, indications, benefits, ? risks and alternatives were explained ? to the patient. Specifically ? discussed were potential ? complications including, but not ? limited to, bleeding, perforation, ? infection, missing a cancer, and ? adverse medication reactions. The ? Colonoscope was inserted in the anus ? and under direct visualization, ? advanced to third part of duodenum. ? Careful inspection was made as the ? colonoscope was withdrawn. The ? procedure, indications, benefits, ? risks and alternatives were explained ? to the patient. Specifically ? discussed were potential ? complications including, but not ? limited to, bleeding, perforation, ? infection, missing a cancer, and ? adverse medication reactions. The ? upper GI endoscopy was accomplished ? without difficulty. The patient ? tolerated the procedure well. ? Findings: ? The esophagus was normal with the exception of a 2 cm ? hiatal hernia from 38-40 cm. There was a ? nonobstructive Lolyki's ring present above the ? stricture ? The stomach was normal with the exception of mild ? atrophy in the antrum - this was biopsied with a cold ? forceps for histology. ? The examined duodenum was normal. ? Moderate Sedation: ? Not applicable - See Anesthesia documentation Impression: ?- Hiatal hernia with nonobstructive ? Sylvia's ring ? - Atopic appearing antrum Recommendation: ?- Await biopsy results ? Attending Participation: ? I personally performed the entire procedure. ? ___ Noam Masters MD 11/30/2018 11:16:34 AM This report has been signed electronically. Number of Addenda: 0 Note Initiated On: 11/30/2018 10:54 AM PROVATION 11/30/2018 10:5 4 AM EDT Dulce Hidalgo MD GENERAL SURGICAL ORD ERABLES PROVATION documented in this encounter Visit Diagnoses Not on filedocumented in this encounter Active and Recently Administered Medications Times are shown in EDT. Continuous Medication Order 11/28/2018 11/29/2018 11/30/2018 lactated ringers infusion (CANCELED) 100 mL/hr, Intravenous, CONTINUOUS, Starting on Mon11/30/18 at 1030, Until Mon11/30/18 at 1221, Endoscopy (Day of Procedure) 1103 (New Bag - Prov ider: Rom Boyer CRNA) documented in this encounter Care Teams Corporate Trainer Relationship Specialty Start Date End Date Dulce Hidalgo MD [facility] [address] [place] [address] PCP - General Family Medicine 09/30/16 documented as of this encounter
--- OUTSIDE RECORDS SUMMARY | 2024-01-11 13:19 | XMS_ITS | Encounter Summary ---
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 Name Role Phone Dulce Hidalgo MD Primary Care Provider [phone] Reason for Visit * Reason Comments Hospital Transfer Abdominal Pain * Auth/Cert Specialty Diagnoses / Procedures Referred By Contac t Referred To Contact Diagnoses Ventral hernia Referral ID Status Reason Start Date Expiration Date Visits Re quested Visits Authorized [id number] 1 1 Encounter Details Date Type Department Care Team (Latest Contact Info) Description 07/16/2018 4:35 PM EST - 07/21/2018 10:27 AM [facility] Hospital Encounter [address] [place] [address] Iva Peres MD [facility] [place] [address] Howard Jeronimo MD [facility] [place] [address] Ariel Garcia MD [facility] [place] [address] Ventral hernia without obstruction or gangrene (Primary Dx) Discharge Disposition: Home with VNA Social History Tobacco Use Types Packs/Day Years [...] Sign Reading Time Taken Comments Blood Pressure 149/58 07/21/2018 8:00 AM EST Pulse 88 07/20/2018 5:01 PM EST Temperature 36.8 ??C (98.2 ??F) 07/21/2018 8:00 AM ES T Respiratory Rate 18 07/21/2018 8:00 AM EST Oxygen Saturation 95% 07/21/2018 8:00 AM EST Inhaled Oxygen Concentration - - Weight 131.6 kg (290 lb 2 oz) 07/16/2018 9:29 PM EST Height 154.9 cm (5' 1) 07/16/2018 9:29 PM EST Body Mass Index 54.82 07/16/2018 9:29 PM EST documented in this encounter Discharge Summaries * Kavon Valadez MD - 07/21/2018 9:31 AM EST Acute Care Surgery Discharge Summary Patient Name: Isaura Aguira Patient Age: 77 y.o. : 1940 Attending [...] Tab Take by mouth daily. 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 PHONE: [phone] FAX: [phone] Start of care: within 24 to 48 [...] to be obtained from this patient's PCP: Dulce Hidalgo MD [address] [facility] / [facility] [id number] All [facility] agencies which cover the area of patient's residence have been reviewed, either verbally ernestina writing, and patient/family have chosen the home health care agency noted Question Response Notes Agency name and contact information [facility] Patient location post discharge home What services [...] an appointment scheduled on 08/21 in the [facility] - time/details includedbelow. This is for routine post-operative follow up. Additionally, once the output from your drain is less than 30 mililiters over a two-day stretch (ask VNA for help with these measurements) you are to call the [facility] at to arrange for drain [...] 1. You will have follow-up appointments at [facility] as indicated in the ???Future Appointments and [...] on the next business day. Please call [phone] if you do not hear from us by that time, as your timely follow-up is very important to us. Your care was managed by the Trauma and Acute Care Surgery Team at [facility]. If you have any questions or concerns, please feel free to contact us. Provider Contact Information: General Surgery: [facility] (after business hours): CC: Ventral Hernia Primary Care Physician: Dulce Hidalgo MD Future Appointments Date Time Provider Department Center 08/21/2018 9:00 AM Anni Multani APRN [facility] General Instructions None Your care was managed by the Trauma and Acute Care Surgery Team at [facility]. If you have any questions or concerns, please feel free to contact us. Provider Contact Information: General Surgery Clinic: Nurses line for questions: [facility] (after business hours): CC: Ventral Hernia Dulce Hidalgo MD [facility] Anni Multani APRN Signed: Kavon Valadez MD Department of Surgery 07/21/2018 Acute Care Surgery Pager [phone] documented in this encounter Discharge Instructions * [...] an appointment scheduled on 08/21 in the [facility] - time/details includedbelow. This is for routine post-operative follow up. Additionally, once the output from your drain is less than 30 mililiters over a two-day stretch (ask VNA for help with these measurements) you are to call the [facility] at to arrange for [...] 1. You will have follow-up appointments at [facility] as indicated in the ???Future Appointments and [...] on the next business day. Please call [phone] if you do not hear from us by that time, as your timely follow-up is very important to us. Your care was managed by the Trauma and Acute Care Surgery Team at [facility]. If you have any questions or concerns, please feel free to contact us. Provider Contact Information: General Surgery: [facility] (after business hours): CC: Ventral Hernia Primary Care Physician: Dulce Hidalgo MD Future Appointments Date Time Provider Department Center 08/21/2018 9:00 AM Anni Multani [facility]N [facility] * Attachments The following attachments cannot be sent through Care Everywhere. * Abdominal Hernia Repair: Post-op ([place]) documented in this encounter Medications at Time [...] Intake/Output Summary (Last 24 hours) at 07/20/2018 1853 Last data filed at 07/20/2018 0650 Gross [...] Valadez MD 07/20/2018 Acute Care Surgery Pager [phone] * Anni Martinez, RD - 07/19/2018 2:09 PM EST Nutrition Initial [...] encounter: 131.6 kg (290 lb 2 oz). 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 Diet hx reflects significant fiber intake [...] Miles MD 07/19/2018 Acute Care Surgery Pager [phone] * Yris Agudelo, RN - 07/18/2018 3:32 PM EST The patient/sales development representative has been provided a list of Home Health Agencies/DME vendors which servetheir preferred geographic area. A letter describing our affiliations was reviewed with them and they were educated about their right to choose where referrals are placed. Patient requests referral to [facility] PHONE: [phone] FAX: [phone] Expected date of discharge: 07/19 Referral routed to the Wood Finisher Apprentice for matching with agency/vendor and to provide any required information. * Batool Alejo RN - 07/18/2018 9:30 AM EST Images from the original note were not included. Infiltration/Extravasation Scale Isaura Aguiar [id number] 518/518-B Infiltration appearance: Infiltration harm % for [...] of infiltration/extravasation Name of MD contacted team [id number] 9:30 AM Name of RN contacted Laura 9:30 AM Name of Pharmacist if consulted NITESH 9:30 AM Plastics Provider contacted: no 9:30 AM Name of Plastics MD (if consulted) RIPRAP PLACING SUPERVISOR CARING FOR THIS PATIENT WILL CONTINUE TO [...] Valadez MD 07/18/2018 Acute Care Surgery Pager [phone] * Eduard Mercedes MD - 07/17/2018 8:03 [...] I/O: Intake/Output Summary (Last 24 hours) at 07/17/2018 192 Last data filed at 07/17/2018 1700 Gross [...] Valadez MD 07/17/2018 Acute Care Surgery Pager [phone] * Renee Diaz RN - 07/17/2018 3:31 [...] capecitabine on June 06, 2017. Path report [id number] ?Location: [facility]; 0209; A The signing pathologist [...] mouth daily. ??? fluticasone (FLONASE) 50 mcg/actuation [place], Suspension 1 spray daily. ??? rivaroxaban (XARELTO) 15 mg Tablet Take 15 mg by mouth daily. ??? PROCHLORPERAZINE MALEATE (COMPAZINE ORAL) Take by mouth. ??? phss-iqj-viq-qzd-dgit-qjqc-pec (FIBER 6) 1,000 mg Tablet Take by [...] Occupational History ??? 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 Smoking [...] output data in the 24 hours ending 07/16/18 2531 No results for input(s): WBC, HGB, HCT, PLATELET, PT, INR, PTT in the last 72 hours. No results for input(s): NA, K, CL, CO2, BUN, CREATININE, GLUCOSE, CALCIUM, MAGNESIUM, PHOS, LACTATE in the last 72 hours. No results for input(s): PHART, PO2ART, YLK7UJN, LACTATEART, BEART in the last 72 hours. ASSESSMENT and RECOMMENDATIONS: 77F with ext PMH as above, presenting with what appears to be a severe episode of ventral hernia incarceration, since relieved by the time of our exam. 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 PET scan done 03/28 didnot reveal evidence [...] cancer currently in remission who presented to [facility] for abdominal pain, nausea, and vomiting that [...] elective basis. Leatha Osuna MD Resident 07/16/18 8737 ED ATTENDING ATTESTATION NOTE The patient was seen in conjunction with Dr. Osuna, the resident physician. I have independently performed the steni portions of the history and physical exam. [...] Assessment: as above. Iva Peres MD 07/18/18 1848 documented in this encounter Miscellaneous Notes * [...] Assessment Outcome: Ongoing (Interventions Implemented as Appropriate) 07/18/18 1738 07/20/18 1621 Discharge Needs Assessment Concerns To Be Addressed -- no discharge needs identified Discharge Disposition still a patient -- Living Environment Transportation Available -- car;family or friend will provide Goal: Interdisciplinary Rounds/Family Conf Outcome: Ongoing (Interventions Implemented as Appropriate) 07/18/18 1738 Interdisciplinary Rounds/Family Conf Participants nursing;manager of case management;family;occupational therapy;physical therapy;physician;patient Problem: Pain, Acute (Adult) Goal: Identify Related Risk Factors and Signs and Symptoms Related risk factors and signs and symptoms are identified upon initiation of Human Response Clinical Practice Guideline (CPG) Outcome: Ongoing (Interventions Implemented as Appropriate) 07/20/18 1621 Pain, Acute Related Risk Factors (Acute Pain) surgery;procedure/treatment Signs and Symptoms (Acute Pain) verbalization of pain descriptors;facial mask of pain/grimace;guarding/abnormal posturing/positioning Goal: Acceptable Pain Control/Comfort Level Patient will demonstrate the desired outcomes by discharge/transition of care. Outcome: Ongoing (Interventions Implemented as Appropriate) 07/20/18 1621 Pain, Acute (Adult) Acceptable Pain Control/Comfort Level [...] ongoing PT. supportive) DAIJA RODRIGUEZ, PT Pager: [phone] Inpatient Physical Therapy 2017 PT Evaluation Code Rationale: ?? Diagnosis & [...] functional performance as outlinedin this evaluation. 07/19/18 0855 Rehab Evaluation Document Type evaluation Total Evaluation [...] can assist with everything. Also has leg model maker scale at home Self-Care Dominant Hand right Usual [...] Assessment/Treatment (Group);Transfer Assessment/Treatment (Group) Bed Mobility Assessment/Treatment Nqjchq-xp-Rtn [place] (Bed Mobility) moderate assist (50% patient effort) Clu-ug-Wrdcld [place] (Bed Mobility) moderate assist (50% patient effort) Assistive Device (Bed Mobility) (HOB slightly elevated) Roll Left [place] (Bed Mobility) moderate assist (50% patient effort) Roll Right [place] (Bed Mobility) moderate assist (50% patient effort) Impairments (Bed Mobility) flexibility decreased;pain;strength decreased Comment (Bed Mobility) Pt cued for log rolling in and out of bed. very difficult for pt 2/2 body habitus and pain. Recommended she sleep in her mechanical lift chair. Pt agrees. Transfer Assessment/Treatment [place] (Sit-Stand Transfers) supervision required [place] (Stand-Sit Transfers) supervision required Ypi-Nyzqh-Lxd Assistive Device (Transfers) (with or without the FWW) Gait Assessment/Treatment Assistive Device (Gait) rolling walker [place] (Gait) supervision required Distance in Feet (Gait) 200' and 20' in room without a device but reaching for things to hold. Deviations (Gait) yvrose decreased;step length decreased Impairments (Gait) balance impaired;pain;strength decreased Comment (Gait) Stable with FWW. Stairs Assessment/Treatment Number of Stairs (Stairs) 13 Handrail Location (Stairs) left side (ascending) [place] (Stairs) supervision required Technique (Stairs) qmev-mm-srbq (ascending);dlov-ez-tntb (descending) Impairments (Stairs) pain;balance impaired;strength decreased Comment [...] Outcome: Ongoing (Interventions Implemented as Appropriate) 07/18/18 0807/18/18 1411 07/18/18 1600 Daily Care Interventions Self-Care [...] Outcome: Ongoing (Interventions Implemented as Appropriate) 07/18/18 0807/18/18 1600 Safety Interventions Isolation Precautions -- standard [...] as Appropriate) 07/18/181737 Interdisciplinary Rounds/Family Conf Participants nursing;manager of case management;family;occupational therapy;physical therapy;physician;patient * Plan of Care - [...] or concerns. Kathryn Candelaria, PT, DPT Pager: [phone] 07/18/18 Inpatient Rehabilitation Department 07/18/18 2721 Rehab Evaluation Document Type contact Total Evaluation [...] can assist with everything. Also has leg model maker scale at home Self-Care Dominant Hand right * [...] with home health, home with assist Pager: [phone] Tae Morocho OT 07/18/2018 Occupational Therapy Rehabilitation [...] Mobility) bed rails;other (see comments) (HOB elevated) Nmhyar-tn-Jmz [place] (Bed Mobility) supervision required;verbal cues required Boy-ip-Pjtpts [place] (Bed Mobility) moderate assist (50% patient effort);verbal cues required (ModA to move legs into bed. ) Transfer Assessment/Treatment [place] (Sit-Stand Transfers) supervision required;verbal cues required [place] (Stand-Sit Transfers) supervision required;verbal cues required Zpv-Ahkfp-Dqy Assistive Device (Transfers) rolling walker [place] (Toilet Transfers) conditional independence Assistive Device (Toilet Transfers) rolling walker Gait Assessment/Treatment [place] (Gait) supervision required Assistive Device (Gait) rolling [...] Body Dressing Assessment/Training Position (LB Dressing) sitting [place] Level (LB Dressing) conditional independence Impairments (LB Dressing) ROM (range of motion) decreased;pain Comment (LB Dressing) OT issued welding machine operator, dressing stick and sock aide, provided verbal edu and thereafter pt sat EOB and used all AE w/ supervision. Toileting Assessment/Training Position (Toileting) sitting [place] Level (Toileting) conditional independence Comment (Toileting) Ramos [...] ADL retraining * Care Management - Jacob Lea RN - 07/18/2018 6:30 AM EST In am pt felt spasms in lower abdomen and requested to walk to the restroom. She had leaked urine around ramos catheter while sitting on the toilet sit. I notified MD- ordered to discontinue ramos but pt requested to wait for another hour because she wants to rest in bed after this walk to toiletfearing that she will need to use restroom again and cannot tolerate bed hdz (per pt).. * Op Note - Kavitha Carroll MD - 07/17/2018 2:02 PM EST Operative Note Patient Name: Isaura Aguiar : [id number] MR#: [id number] Case Date: 07/17/2018 Surgeon: Surgeon(s) and Role: [...] suture. The abdomen was irrigated. A 19 Greek Rachid drain was placed in subcutaneous space. [...] spouse Taran is primary HC agent (phone: [phone]), her three children are alternates Current Coping/Education/Information Needs: post-surgical care Current Functional Ability: unavailable for IA; in OR for ventral hernia repari Functional Status Prior to Admission: was apparently doing well at home but had medical concerns/GIsymptoms related to known ventral hernia seen on CT 2018. Home Environment: single family home in [place], [place]; lives with spouse Social & Family Supports/Community Resources: family/neighbors/friends Behavioral Health History: none mentioned Substance Use/Abuse: none noted Other Pertinent/Service Specific Information: to be determined Health/Prescription Coverage: Primary Insurance: MEDICARE Secondary Insurance: FOR LIFE Prescription Coverage: tri-care Preferred Pharmacy: mail order through [facility] ([facility]-care) Other: [facility] in [place] Primary Care Provider: Dulce Hidalgo MD [phone] Patient/Caregiver Goals of Treatment: home following surgery Potential Needs for Transition of Care: Rehab/SNF: may not be necessary Home Health: short-term, would be [facility] that covers her [...] of care planning. Halina Nance RN Pager: [phone] * Brief Op Note - Kavitha Carroll MD - 07/17/2018 1:38 PM EST Brief Operative Note Patient Name: Isaura Aguiar : [id number] MR#: [id number] Case Date: 07/17/2018 Surgeon: Surgeon(s) and Role: [...] Overview Goal: Plan of Care Review 07/16/18 5328 Coping/Psychosocial Plan Of Care Reviewed With patient [...] 9:48 AM EST) Neutrophils % 78.1 % [facility] Neutr Abs (ANC) 6.61(H) 1.70 - 6.10 x10(3)/mc L [facility] Lymphocytes % 10.8 % [facility] Lymphocytes Abs 0.9 0.9 - 3.2 x10(3)/mc L [facility] Monocytes % 8.0 % [facility] Monocyte Abs 0.7 0.3 - 0.9 x10(3)/mc L [facility] Eosinophils % 1.8 % [facility] Eosinophils Abs 0.2 0.0 - 0.4 x10(3)/[facility] Basophils % 0.2 % [facility] Basophils Abs 0.0 0.0 - 0.1 x10(3)/[facility] Immature Gran % 1.10 % [facility] Comment: Immature granulocytes(IG's)percentage and absolute count will include metamyelocytes, myelocytes, and promyelocytes. Blood smears from CBCs yielding IG's will be scanned manually for concordance. If this scan disagrees with the automated IG or if promyelocytes are noted, a manual differential will be performed. [place] Gran Abs 0.09(H) 0.00 - 0.04 x10(3)/[facility] Blood specimen (specimen) 07/19/2018 9:48 AM EST 07/19/2018 10:04 AM EST Narrative Resulting Agency Comment Spec In Lab Aissatou Garcia MD HEMATOLOGY ORDERABLE S [facility] [place] [address] * (ABNORMAL) Hemogram (07/19/2018 9:48 AM EST) WBC 8.5 4.0 - 9.5 x10(3)/[facility] RBC 3.60(L) 4.00 - 5.21 x10(6)/[facility] Hemoglobin 10.2(L) 11.7 - 15.5 gm/dL [facility] Hematocrit 32.9(L) 35.7 - 45.8 % [facility] MCV 91.4 82.6 - 94.4 fL [facility] MCH 28.3 27.1 - 32.0 pg [facility] MCHC 31.0(L) 31.7 - 35.0 gm/dL [facility] Platelets 190 145 - 357 x10(3)/[facility] RDWSD 54.3(H) 37.0 - 46.0 [facility] RDWCV 16.1(H) 11.5 - 14.1 % [facility] MPV 10.5 7.6 - 12.9 [facility] nRBC % Auto 0.0 % [facility] nRBC Abs Auto 0.000 0.000 - 0.000 x10(3)/[facility] Blood specimen (specimen) 07/19/2018 9:48 AM EST 07/19/2018 10:04 AM EST Narrative Resulting Agency Comment Spec In Lab Aissatou Garcia MD HEMATOLOGY ORDERABLE S Performing Organization Address City/State/[facility] Co de Phone Number [facility] [place] [address] * (ABNORMAL) Basic Metabolic Panel (non-fasting) (07/19/2018 9:48 AM EST) Glucose Lvl 140 65 - 199 mg/dL [facility] Comment:Diabetes: >=200 mg/d L plus symptoms BUN 17 8 - 18 mg/dL [facility] Creatinine 1.50(H) 0.70 - 1.20 mg/dL [facility] Sodium 134(L) 135 - 145 mmol/L [facility] Potassium 4.0 3.5 - 5.0 mmol/L [facility] Comment: Please note: ??Patients with WBC >100,000 may have falsely elevated Potassium levels. ??For accurate Potassium quantification in these patients send serum separator tube (gold top) for subsequent determinations. ??Contact the Clinical Chemistry Laboratory if there are any questions. Chloride 97(L) 98 - 107 mmol/L [facility] CO2 23 22 - 31 mmol/L [facility] Anion Gap 14 5 - 15 mmol/L [facility] Calcium 8.7 8.5 - 10.5 mg/dL [facility] Estimated GFR 34(L) >=60 mL/min/1. 73 m?? [facility] Comment: The eGFR was calculated using the CKD-EPI equation. As with all creatinine based estimates of kidney function, eGFR values calculated with the CKD-EPI equation are not accurate in patients with acute kidney failure, extremes of body mass or the acutely ill. [email or web address] eGFR 39(L) >=60 mL/min/1. 73 m?? [facility] Comment: The eGFR was calculated using the CKD-EPI equation. As with all creatinine based estimates of kidney function, eGFR values calculated with the CKD-EPI equation are not accurate in patients with acute kidney failure, extremes of body mass or the acutely ill. [email or web address] Blood specimen (specimen) 07/19/2018 9:48 AM EST 07/19/2018 10:04 AM EST Narrative Resulting Agency Comment Spec In Lab Howard Jeronimo MD CHEMISTRY ORDERABLES [facility] [place] [address] * (ABNORMAL) Urinalysis Microscopic Exam (07/18/2018 10:56 AM EST) RBC UA <1 0 - 4 /HPF [facility] WBC UA 4 0 - 5 /HPF [facility] Bacteria UA Rare(A) None /HPF [facility] Squam Epith UA <1 <=4 /HPF [facility] Urine specimen obtained by clean catch procedure (specimen) 07/18/2018 10:56 AM EST 07/18/2018 11:26 AM EST Narrative Resulting Agency Comment Spec In Lab Aissatou Garcia MD URINE ORDERABLES [facility] [place] [address] * Urine Hold (07/18/2018 10:56 AM EST) Urine Hold Sample in lab. [facility] Urine specimen (specimen) Urine / Unknown 07/18/2018 10:56 AM EST 07/18/2018 11:25 AM EST Aissatou Garcia MD URINE ORDERABLES Performing Organization Address [facility] Co de Phone Number [facility] [place] [address] * (ABNORMAL) Urinalysis with reflex Culture (07/18/2018 10:56 AM EST) Glucose UA Negative Negative mg/dL [facility] Protein UA Negative Negative mg/dL [facility] Bilirubin UA Negative Negative mg/dL [facility] Comment: Clinical correlation required for positive Urine Bilirubin results as false positive may occur with some drugs and drug related products. If a false positive is suspected a serum total bilirubin should be considered if clinically indicated. Urobilinogen UA Normal Normal mg/dL [facility] pH UA 5.0 5.0 - 8.0 [facility] LABORATORY Blood UA Negative Negative mg/dL [facility] Ketones UA Negative Negative mg/dL [facility] Nitrite UA Negative Negative [facility] Leukocytes UA Trace(A) Negative [facility] LABORATORY Appearance UA Clear Clear [facility] Spec [place] UA 1.012 1.002 - 1.030 [facility] Color UA Yellow Yellow [facility] Culture Reflexed No [facility] Urine specimen obtained by clean catch procedure (specimen) 07/18/2018 10:56 AM EST 07/18/2018 11:26 AM EST Narrative Resulting Agency Comment Spec In Lab Howard Jeronimo MD URINE ORDERABLES Performing Organization Address City/[facility]/ZIP Co de Phone Number [facility] [place] [address] * Differential, Automated (07/18/2018 5:34 AM EST) Neutrophils % 72.6 % [facility] Neutr Abs (ANC) 4.85 1.70 - 6.10 x10(3)/[facility] LABORATORY Lymphocytes % 16.7 % [facility] Lymphocytes Abs 1.1 0.9 - 3.2 x10(3)/[facility] LABORATORY Monocytes % 9.3 % [facility] Monocyte Abs 0.6 0.3 - 0.9 x10(3)/[facility] LABORATORY Eosinophils % 1.0 % [facility] Eosinophils Abs 0.1 0.0 - 0.4 x10(3)/[facility] LABORATORY Basophils % 0.1 % [facility] Basophils Abs 0.0 0.0 - 0.1 x10(3)/[facility] LABORATORY Immature Gran % 0.30 % [facility] Comment: Immature granulocytes(IG's)percentage and absolute count will include metamyelocytes, myelocytes, and promyelocytes. Blood smears from CBCs yielding IG's will be scanned manually for concordance. If this scan disagrees with the automated IG or if promyelocytes are noted, a manual differential will be performed. [place] Gran Abs 0.02 0.00 - 0.04 x10(3)/[facility] LABORATORY Blood specimen (specimen) 07/18/2018 5:34 AM EST 07/18/2018 5:43 AM EST Narrative Resulting Agency Comment Spec In Lab Aissatou Garcia MD HEMATOLOGY ORDERABLE S [facility] [place] [address] * (ABNORMAL) Hemogram (07/18/2018 5:34 AM EST) WBC 6.7 4.0 - 9.5 x10(3)/[facility] LABORATORY RBC 3.38(L) 4.00 - 5.21 x10(6)/[facility] LABORATORY Hemoglobin 9.5(L) 11.7 - 15.5 gm/dL [facility] Hematocrit 31.6(L) 35.7 - 45.8 % [facility] MCV 93.5 82.6 - 94.4 [facility] LABORATORY MCH 28.1 27.1 - 32.0 pg [facility] MCHC 30.1(L) 31.7 - 35.0 gm/dL [facility] Platelets 182 145 - 357 x10(3)/[facility] LABORATORY RDWSD 56.0(H) 37.0 - 46.0 [facility]ORY RDWCV 16.5(H) 11.5 - 14.1 % [facility] MPV 10.4 7.6 - 12.9 [facility] LAB[facility]ORY nRBC % Auto 0.0 % [facility] nRBC Abs Auto 0.000 0.000 - 0.000 x10(3)/[facility] LABORATORY Blood specimen (specimen) 07/18/2018 5:34 AM EST 07/18/2018 5:43 AM EST Narrative Resulting Agency Comment Spec In Lab Aissatou Garcia MD HEMATOLOGY ORDERABLE S [facility] [place] [address] * (ABNORMAL) Basic Metabolic Panel (non-fasting) (07/18/2018 5:34 AM EST) Glucose Lvl 139 65 - 199 mg/dL [facility] Comment:Diabetes: >=200 mg/d L plus symptoms BUN 20(H) 8 - 18 mg/dL [facility] Creatinine 1.50(H) 0.70 - 1.20 mg/dL [facility] Sodium 135 135 - 145 mmol/L [facility] Potassium 4.2 3.5 - 5.0 mmol/L [facility] Comment: Please note: ??Patients with WBC >100,000 may have falsely elevated Potassium levels. ??For accurate Potassium quantification in these patients send serum separator tube (gold top) for subsequent determinations. ??Contact the Clinical Chemistry Laboratory if there are any questions. Chloride 100 98 - 107 mmol/L [facility] CO2 25 22 - 31 mmol/L [facility] Anion Gap 10 5 - 15 mmol/L [facility] Calcium 8.2(L) 8.5 - 10.5 mg/dL [facility] Estimated GFR 34(L) >=60 mL/min/1. 73 m?? [facility] Comment: The eGFR was calculated using the CKD-EPI equation. As with all creatinine based estimates of kidney function, eGFR values calculated with the CKD-EPI equation are not accurate in patients with acute kidney failure, extremes of body mass or the acutely ill. http://Plibber/[facility] MUS[facility]GEEnkf eGFR 39(L) >=60 mL/min/1. 73 m?? [facility] Comment: The eGFR was calculated using the CKD-EPI equation. As with all creatinine based estimates of kidney function, eGFR values calculated with the CKD-EPI equation are not accurate in patients with acute kidney failure, extremes of body mass or the acutely ill. [email or web address] Blood specimen (specimen) 07/18/2018 5:34 AM EST 07/18/2018 5:43 AM EST Narrative Resulting Agency Comment Spec In Lab Howard Jeronimo MD CHEMISTRY ORDERABLES [facility] [place] [address] * Specimen to Pathology (07/17/2018 10:52 AM EST) AP Specimen 07/17/2018 10:5 2 AM EST 07/17/2018 2:11 PM EST Narrative [facility] - 07/17/2018 2:11 PM EST Specimen requisition ordered. ??Separate Pathology report to follow Resulting Agency Comment Spec In Lab Howard Jeronimo MD PATHOLOGY/CYTOLOGY O [place] Performing Organization Address [facility] Co de Phone Number [facility] [place] [address] * Surgical Pathology Report (07/17/2018 10:51 AM EST) FINAL DIAGNOSIS (AP) [id number] ? Location: [facility]; [facility]; The signing pathologist has (i) examined the relevant preparation(s) for the specimen(s) and (ii) rendered or confirmed the diagnosis(es). . ?Surgical Pathology DIAGNOSIS A - Fibromembranous tissue, hernia sac. ??Gross surgical pathology examination. Electronically signed by: ??Angus Oconnell MD Verified: ??07/18/2018 ?Derm[address]i st, Bone & Soft Tissue Pathologist Performed at: ??-[facility] [place], [place], [place] CLINICAL INFORMATION Specimen Submitted: A - Hernia sac Clinical History and Diagnosis: Ventral hernia SPECIMEN PROCESSING A - Labeled/Fixative: Hernia sac, fresh. Quantity/Size/Weig ht: Single, 10.5 x 5.5 x 1.5 cm Tissue Description: Soft, valencia-pink, semitransparent, membranous tissue without grossly identifiable lesions. Sections/Processin g: No sections submitted, gross diagnosis only ??ale 07/18/2018 10:02 AM EST [facility] HERNIA SAC / Unknown 07/17/2018 10:51 AM EST 07/17/2018 10:51 AM EST Kavitha Carroll MD PATHOLOGY/CYTOLOGY O [place] Performing Organization Address [facility]/ZIP Co de Phone Number [facility] [place] [address] * Differential, Automated (07/17/2018 6:15 AM EST) Neutrophils % 59.1 % [facility] Neutr Abs (ANC) 2.65 1.70 - 6.10 x10(3)/[facility] LABORATORY Lymphocytes % 28.3 % [facility] Lymphocytes Abs 1.3 0.9 - 3.2 x10(3)/[facility] LABORATORY Monocytes % 8.9 % [facility] Monocyte Abs 0.4 0.3 - 0.9 x10(3)/[facility] LABORATORY Eosinophils % 3.3 % [facility] Eosinophils Abs 0.2 0.0 - 0.4 x10(3)/[facility] LABORATORY Basophils % 0.2 % [facility] Basophils Abs 0.0 0.0 - 0.1 x10(3)/[facility] LABORATORY Immature Gran % 0.20 % [facility] Comment: Immature granulocytes(IG's)percentage and absolute count will include metamyelocytes, myelocytes, and promyelocytes. Blood smears from CBCs yielding IG's will be scanned manually for concordance. If this scan disagrees with the automated IG or if promyelocytes are noted, a manual differential will be performed. [place] Gran Abs 0.01 0.00 - 0.04 x10(3)/[facility] LABORATORY Blood specimen (specimen) 07/17/2018 6:15 AM EST 07/17/2018 6:29 AM EST Narrative Resulting Agency Comment Spec In Lab Vasquez Miles MD HEMATOLOGY ORDERABLE S [facility] [place] [address] * (ABNORMAL) Hemogram (07/17/2018 6:15 AM EST) WBC 4.5 4.0 - 9.5 x10(3)/[facility] LABORATORY RBC 3.41(L) 4.00 - 5.21 x10(6)/[facility]ATORY Hemoglobin 9.7(L) 11.7 - 15.5 gm/dL [facility] Hematocrit 30.9(L) 35.7 - 45.8 % [facility] MCV 90.6 82.6 - 94.4 [facility]ORY MCH 28.4 27.1 - 32.0 pg [facility] MCHC 31.4(L) 31.7 - 35.0 gm/dL [facility] Platelets 176 145 - 357 x10(3)/[facility] LABORATORY RDWSD 52.9(H) 37.0 - 46.0 [facility] LABORATORY RDWCV 16.0(H) 11.5 - 14.1 % [facility] MPV 10.0 7.6 - 12.9 [facility] nRBC % Auto 0.0 % [facility] nRBC Abs Auto 0.000 0.000 - 0.000 x10(3)/[facility] Blood specimen (specimen) 07/17/2018 6:15 AM EST 07/17/2018 6:29 AM EST Narrative Resulting Agency Comment Spec In Lab Vasquez Miles MD HEMATOLOGY ORDERABLE S [facility] [place] [address] * (ABNORMAL) Basic Metabolic Panel (non-fasting) (07/17/2018 6:15 AM EST) Glucose Lvl 106 65 - 199 mg/dL [facility] Comment:Diabetes: >=200 mg/d L plus symptoms BUN 18 8 - 18 mg/dL [facility] Creatinine 1.17 0.70 - 1.20 mg/dL [facility] Sodium 139 135 - 145 mmol/L [facility] Potassium 4.0 3.5 - 5.0 mmol/L [facility] Comment: Please note: ??Patients with WBC >100,000 may have falsely elevated Potassium levels. ??For accurate Potassium quantification in these patients send serum separator tube (gold top) for subsequent determinations. ??Contact the Clinical Chemistry Laboratory if there are any questions. Chloride 103 98 - 107 mmol/L [facility] CO2 27 22 - 31 mmol/L [facility] Anion Gap 9 5 - 15 mmol/L [facility] Calcium 8.6 8.5 - 10.5 mg/dL [facility] Estimated GFR 46(L) >=60 mL/min/1. 73 m?? [facility] Comment: The eGFR was calculated using the CKD-EPI equation. As with all creatinine based estimates of kidney function, eGFR values calculated with the CKD-EPI equation are not accurate in patients with acute kidney failure, extremes of body mass or the acutely ill. [email or web address]/[email or web address] eGFR 53(L) >=60 mL/min/1. 73 m?? [facility] Comment: The eGFR was calculated using the CKD-EPI equation. As with all creatinine based estimates of kidney function, eGFR values calculated with the CKD-EPI equation are not accurate in patients with acute kidney failure, extremes of body mass or the acutely ill. [email or web address] Blood specimen (specimen) 07/17/2018 6:15 AM EST 07/17/2018 6:29 AM EST Narrative Resulting Agency Comment Spec In Lab Howard Jeronimo MD CHEMISTRY ORDERABLES [facility] [place] [address] * Differential, Automated (07/16/2018 9:50 PM EST) Neutrophils % 69.9 % [facility] Neutr Abs (ANC) 4.11 1.70 - 6.10 x10(3)/mcL [facility] Lymphocytes % 18.9 % [facility] Lymphocytes Abs 1.1 0.9 - 3.2 x10(3)/[facility]ORATORY Monocytes % 9.2 % [facility] Monocyte Abs 0.5 0.3 - 0.9 x10(3)/[facility] Eosinophils % 1.4 % [facility] Eosinophils Abs 0.1 0.0 - 0.4 x10(3)/[facility] Basophils % 0.3 % [facility] Basophils Abs 0.0 0.0 - 0.1 x10(3)/[facility] Immature Gran % 0.30 % [facility] Comment: Immature granulocytes(IG's)percentage and absolute count will include metamyelocytes, myelocytes, and promyelocytes. Blood smears from CBCs yielding IG's will be scanned manually for concordance. If this scan disagrees with the automated IG or if promyelocytes are noted, a manual differential will be performed. [place] Gran Abs 0.02 0.00 - 0.04 x10(3)/[facility] LAB[facility] Blood specimen (specimen) 07/16/2018 9:50 PM EST 07/16/2018 9:54 PM EST Narrative Resulting Agency Comment Spec In Lab Vasquez Miles MD HEMATOLOGY ORDERABLE S Performing Organization Address City/State/[facility] Co de Phone Number [facility] [place] [address] * (ABNORMAL) Hemogram (07/16/2018 9:50 PM EST) WBC 5.9 4.0 - 9.5 x10(3)/[facility] LAB[facility]ORY RBC 3.67(L) 4.00 - 5.21 x10(6)/[facility] Hemoglobin 10.4(L) 11.7 - 15.5 gm/dL [facility] Hematocrit 32.5(L) 35.7 - 45.8 % [facility] MCV 88.6 82.6 - 94.4 [facility]ORY MCH 28.3 27.1 - 32.0 pg [facility] MCHC 32.0 31.7 - 35.0 gm/dL [facility] Platelets 187 145 - 357 x10(3)/[facility]ORY RDWSD 51.2(H) 37.0 - 46.0 [facility]ORY RDWCV 15.9(H) 11.5 - 14.1 % [facility] MPV 10.2 7.6 - 12.9 [facility] nRBC % Auto 0.0 % [facility] nRBC Abs Auto 0.000 0.000 - 0.000 x10(3)/[facility] Blood specimen (specimen) 07/16/2018 9:50 PM EST 07/16/2018 9:54 PM EST Narrative Resulting Agency Comment Spec In Lab Vasquez iMles MD HEMATOLOGY ORDERABLE S [facility] [place] [address] * (ABNORMAL) Basic Metabolic Panel (non-fasting) (07/16/2018 9:50 PM EST) Glucose Lvl 109 65 - 199 mg/dL [facility] Comment:Diabetes: >=200 mg/d L plus symptoms BUN 20(H) 8 - 18 mg/dL [facility] Creatinine 1.12 0.70 - 1.20 mg/dL [facility] Sodium 140 135 - 145 mmol/L [facility] Potassium 3.9 3.5 - 5.0 mmol/L [facility] Comment: Please note: ??Patients with WBC >100,000 may have falsely elevated Potassium levels. ??For accurate Potassium quantification in these patients send serum separator tube (gold top) for subsequent determinations. ??Contact the Clinical Chemistry Laboratory if there are any questions. Chloride 104 98 - 107 mmol/L [facility] CO2 25 22 - 31 mmol/L [facility] Anion Gap 11 5 - 15 mmol/L [facility] Calcium 8.6 8.5 - 10.5 mg/dL [facility] Estimated GFR 48(L) >=60 mL/min/1. 73 m?? [facility] Comment: The eGFR was calculated using the CKD-EPI equation. As with all creatinine based estimates of kidney function, eGFR values calculated with the CKD-EPI equation are not accurate in patients with acute kidney failure, extremes of body mass or the acutely ill. [email or web address]/[email or web address] eGFR 56(L) >=60 mL/min/1. 73 m?? [facility] Comment: The eGFR was calculated using the CKD-EPI equation. As with all creatinine based estimates of kidney function, eGFR values calculated with the CKD-EPI equation are not accurate in patients with acute kidney failure, extremes of body mass or the acutely ill. [email or web address] Blood specimen (specimen) 07/16/2018 9:50 PM EST 07/16/2018 9:54 PM EST Narrative Resulting Agency Comment Spec In Lab Iva Peres MD CHEMISTRY ORDERABLE S [facility] [place] [address] documented in this encounter Visit Diagnoses Diagnosis Ventral hernia without obstruction or gangrene- Primary Ventral hernia, unspecified, without mention of obstruction or gangrene Ventral hernia Ventral hernia, unspecified, without mention of obstruction or gangrene documented in this encounter Admitting Diagnoses Diagnosis Ventral hernia Ventral hernia, unspecified, without mention of obstruction or gangrene documented in this encounter Administered Medications Inactive Administered Medications - up to 3 most recent administrations Medication Order MAR Action Action Date Dose Rate Site acetaminophen (TYLENOL) tablet 1,000 mg 1,000 mg, Oral, EVERY 6 HOURS SCHEDULED, First dose on 07/16/18 at 1842, Until Discontinued, Maximum dose of [...] Given 07/20/2018 2:53 PM EST 10 mg enoxaparin (LOVENOX) injection 40 mg 40 mg, Subcutaneous, NIGHTLY, First dose on Mon07/16/18 at 2100, Until Discontinued, Routine Given 07/18/2018 8:49 PM EST 40 mg Abdom inal Tissue Given 07/17/2018 8:49 PM EST 40 mg Ab dominal Tissue Given 07/16/2018 9:53 PM EST 40 mg HYDROmorphone (DILAUDID) injection 0.2-0.4 mg 0.2-0.4 mg, Intravenous, EVERY 5 MIN PRN, Starting on Mon07/17/18 at 1425, Until Mon07/17/18 at 1800, Pain, Give 0.2 mg every 5 minutes PRN for mild to moderate pain (1-5) Give 0.4 mg every 5 minutes PRN for moderate to severe pain (6-10). Hold for respiratory rate less than 10 per minute. Maximum dose 4 mg over one hour. If multiple pain medications are ordered, start with hydromorphone or morphine and use fentanyl for breakthrough pain., PACU Recovery, Routine Given 07/17/2018 3:37 PM EST 0.2 mg Given 07/17/2018 3:29 PM EST 0.2 mg Given 07/17/2018 3:08 PM EST 0.4 mg lactated Ringers infusion 100 mL/hr, Intravenous, CONTINUOUS, Starting on Mon07/16/18 at 1702, Until Mon07/16/18 at 2036 New Bag 07/16/2018 5:24 PM EST 100 mL/hr 100 mL/hr lactated Ringers infusion 75 mL/hr, Intravenous, CONTINUOUS, Starting on Mon07/16/18 at 2100, Until Chloe 07/19/18 at 0945 New Bag 07/19/2018 9:23 AM EST 75 mL/hr 75 mL/hr New Bag 07/18/2018 8:53 PM EST 75 mL/hr 75 mL/hr Rate/Dose Verify 07/18/2018 6:00 PM EST 75 mL/hr 75 mL/h r lactulose (CHRONULAC) 20 gram/30 mL oral solution 20 g 20 g, Oral, 2 TIMES DAILY PRN, Starting on Mon07/20/18 at 1610, Until 07/21/18 at 1228, Constipation, Routine Given 07/20/2018 4:18 PM EST 20 g lidocaine (XYLOCAINE) 10 mg/mL (1 %) injection 3 mg 3 mg (0.3 mL), Subcutaneous, ONCE PRN, 1 dose, Starting on Mon07/16/18 at 2035, Until 07/18/18 at 1037, for discomfort with PIV insertion, Routine Given 07/18/2018 10:37 AM EST 3 mg Righ t Arm ondansetron (ZOFRAN) injection 4-8 mg 4-8 mg, Intravenous, EVERY 8 HOURS PRN, Starting on Mon07/16/18 at 2035, Until 07/21/18 at 1228, Nausea, Start with 4mg and if ineffective in 30 minutes, give an additional 4mg If multiple antiemetics are ordered, give ondansetron first. Given 07/17/2018 6:16 PM EST 4 mg ondansetron (ZOFRAN) tablet 4-8 mg 4-8 mg, Oral, EVERY 8 HOURS PRN, Starting on Mon07/16/18 at 2035, Until 07/21/18 at 1228, Nausea, Vomiting, If multiple antiemetics are ordered, use ondansetron first. PO Preferred. If patient unable to take PO, may give IV if ordered. Start with 4mg and if ineffective in 45 minutes, give an additional 4mg. If unable to take PO, may give IV., Routine oxyCODONE (ROXICODONE) immediate release tablet 10-15 mg 10-15 mg, Oral, EVERY 4 HOURS PRN, Starting on 07/16/18 at 1840, Until 07/21/18 at 0908, Pain, severe pain (7-10), Initial dose 10mg. If pain control not adequate in 60 minutes, give additional 5mg, Routine Given 07/17/2018 6:14 PM EST 10 mg oxyCODONE (ROXICODONE) immediate release tablet 5 mg 5 mg, Oral, ONCE PRN, 1 dose, Starting on 07/21/18 at 0908, Until 07/21/18 at 1228, Pain, To give prior to discharge., STAT oxyCODONE (ROXICODONE) immediate release tablet 5-10 mg 5-10 mg, Oral, EVERY 4 HOURS PRN, Starting on 07/16/18 at 1840, Until 07/21/18 at 0908, Pain, moderate pain (4-6), Initial dose 5mg. If pain control not adequate in 60 minutes, give additional 5mg, Routine Given 07/20/2018 8:41 AM EST 5 mg Given 07/20/2018 12:00 AM EST 5 mg Given 07/19/2018 11:38 AM EST 5 mg polyethylene glycol (MIRALAX) packet 17 g 17 g, Oral, DAILY PRN, Starting on Mon07/20/18 at 0237, [...] 6 HOURS PRN, Starting on Mon07/16/18 at 2035, Until 07/21/18 at 1228, Nausea, [...] Constipation, Routine 1618 (Given - Provider: Zahra Fink RN) ondansetron (ZOFRAN) injection 4-8 mg(Linked Group [...] 5mg, Routine 1138 (Given - Provider: Miles Caban, RN) 0000 (Given - Provider: Rafaela Kunz RN)0841 (Given - Provider: Zahra Fink RN) polyethylene glycol (MIRALAX) packet 17 g 17 g, Oral, DAILY PRN, Starting on Mon07/20/18 at 0237, [...] Intravenous, EVERY 1 MIN PRN, Starting on 07/16/18 at 2035, Until 07/21/18 at 1228, flush, Flush pertains to all indwelling lines. Flush per protocol found in the job aid using the link provided on this medication record., Routine Linked Groups Order Group 1: ondansetron (ZOFRAN) tablet 4-8 mgJump to med 4-8 mg, Oral, EVERY 8 HOURS PRN, Starting on Mon07/16/18 at 2035, Until 07/21/18 at 1228, Nausea, [...] 8 HOURS PRN, Starting on Mon07/16/18 at 2035, Until 07/21/18 at 1228, Nausea, [...] Routine documented in this encounter Care Teams Livestock Slaughterer Relationship Specialty Start Date End Date Dulce Hidalgo MD [address] [facility] [address] [place] [address] PCP - General Family Medicine 09/30/16 documented as of this encounter
--- OUTSIDE RECORDS SUMMARY | 2024-01-11 13:19 | XMS_ITS | Encounter Summary ---
[place] [address] Care Team Providers Care Renovator Machine Operator Name Role Phone Dulce Hidalgo MD Primary Care Provider [phone] Reason for Referral * Diagnostic Test (Routine) - Closed Specialty Diagnoses / Procedures Referred By Contac t Referred To Contact Radiology Diagnoses Metastatic urothelial carcinoma Procedures CT Chest Abdomen Pelvis w Contrast (Generic) Danny Gordon MD [facility] [address] HEMATOLOGY [place] [address] [facility] [place] [address] Referral ID Status Reason Start Date Expiration Date V isits Requested Visits Authorized [id number] Closed Specialty Service Requested 04/03/2018 04/03/2019 1 1 Reason for Visit * Diagnostic Test (Routine) - Closed Specialty Diagnoses / Procedures Referred By Contac t Referred To Contact Radiology Diagnoses Metastatic urothelial carcinoma Procedures CT Chest Abdomen Pelvis w Contrast (Generic) Danny Gordon MD [facility] HEMATOLOGY [place] [address] [facility] [address] Scan [place] [id number] Referral ID Status Reason Start Date Expiration Date V isits Requested Visits Authorized [id number] Closed Specialty Service Requested 04/03/2018 04/03/2019 1 1 Encounter Details Date Type Department Care Team (Latest Contact Info) Description 07/09/2018 11:22 AM EST - 07/09/2018 11:59 PM EST Hospital Encounter [facility] [address] Danny Gordon MD [facility] [address] HEMATOLOGY [place] [address] Metastatic urothelial carcinoma Discharge Disposition: Home Social History Tobacco [...] tablets every 6 hrs as needed* 08/05/2010 aspirin 81 mg EC tablet Take 81 mg by mouth daily. 01/06/2020 atenolol (TENORMIN) 50 mg tablet Take 50 mg by mouth daily. 08/05/2010 10/11/2023 simvastatin (ZOCOR) 10 mg tablet Take 10 mg by mouth daily. 08/05/2010 10/11/2023 documented as of this encounter Plan of Treatment Not on file documented as of this encounter Procedures Procedure Name Priority Date/Time Associated Diagnosis Comments CT CHEST ABDOMEN PELVIS W CONTRAST (GENERIC) Routine 07/09/2018 1:52 PM EST Metastatic urothelial carcinoma documented in this encounter Results * CT Chest Abdomen Pelvis w Contrast (Generic) (07/09/2018 1:52 PM EST) Anatomical Region Laterality Modality Abdomen, Pelvis Computed Tomogra phy Impressions 07/09/2018 2:50 PM EST No evidence tumor recurrence Thank you for letting us participate in the care of this patient. For questions regarding this report, please contact the number below. ? Electronically signed by: Niki Martinez [facility] ([phone]), at 07/09/2018 2:50 PM Narrative 07/09/2018 2:50 PM EST EXAMINATION: CT [...] other urinary organs documented in this encounter Administered Medications Inactive Administered Medications - up to 3 most recent administrations Medication Order MAR Action Action Date Dose Rate Site iodixanol (VISIPAQUE) 320 mg iodine/mL injection 0-200 mL 0-200 mL, Intravenous, ONCE PRN, 1 dose, Starting on Mon07/09/18 at 1340, Until Mon07/09/18 at 1340, Per Protocol, Radiology Contrast, Routine Given 07/09/2018 1:40 PM EST 100 mLs iohexol (OMNIPAQUE) 350 mg/mL solution 0-50 mL 0-50 mL, Oral, ONCE PRN, 1 dose, Starting on Mon07/09/18 at 1340, Until Mon07/09/18 at 1140, Per Protocol, Warning Vesicant/Irritant Medication , Radiology Contrast, Routine Given 07/09/2018 11:40 AM EST 50 mLs documented in this encounter Care Teams Renovator Machine Operator Relationship Specialty Start Date End Date Dulce Hidalgo MD [address] [place] [address] PCP - General Family Medicine 09/30/16 documented as of this encounter
--- OUTSIDE RECORDS SUMMARY | 2024-01-11 13:19 | XMS_ITS | Encounter Summary ---
[place] [address] Care Team Providers Care Director Design Name Role Phone Dulce Hidalgo MD Primary Care Provider [phone] Encounter Details Date Type Department Care Team (Latest Contact Info) Description 07/09/2018 8:30 AM EST Laboratory Appointment Lab [address] [phone] Metastatic urothelial carcinoma Social History Tobacco Use Types Packs/Day [...] Procedure Name Priority Date/Time Associated Diagnosis Comments HEMOGRAM Routine 07/09/2018 8:40 AM EST Metastatic urothelial carcinoma DIFFERENTIAL, AUTOMATED Routine 07/09/2018 8:40 AM EST Metastatic urothelial carcinoma CBC (WITH DIFF) Routine 07/09/2018 8:40 AM EST Metastatic urothelial carcinoma COMPREHENSIVE METABOLIC PANEL (NON-FASTING) Routine 07/09/2018 8:40 AM EST Metastatic urothelial carcinoma documented in this encounter Results * Differential, Automated (07/09/2018 8:40 AM EST) Neutrophils % 51.5 % [facility] Neutr Abs (ANC) 2.93 1.70 - 6.10 x10(3)/[facility] Lymphocytes % 35.4 % [facility] Lymphocytes Abs 2.0 0.9 - 3.2 x10(3)/[facility] Monocytes % 8.9 % [facility] Monocyte Abs 0.5 0.3 - 0.9 x10(3)/[facility] Eosinophils % 3.3 % [facility] Eosinophils Abs 0.2 0.0 - 0.4 x10(3)/[facility] Basophils % 0.5 % [facility] Basophils Abs 0.0 0.0 - 0.1 x10(3)/[facility] Immature Gran % 0.40 % [facility] Comment: Immature granulocytes(IG's)percentage and absolute count will include metamyelocytes, myelocytes, and promyelocytes. Blood smears from CBCs yielding IG's will be scanned manually for concordance. If this scan disagrees with the automated IG or if promyelocytes are noted, a manual differential will be performed. [place] Gran Abs 0.02 0.00 - 0.04 x10(3)/[facility] Blood specimen (specimen) 07/09/2018 8:40 AM EST 07/09/2018 8:44 AM EST Narrative Resulting Agency Comment Spec In Lab Danny Gordon MD HEMATOLOGY ORDERABLE S [facility] [place] [address] * (ABNORMAL) Hemogram (07/09/2018 8:40 AM EST) WBC 5.7 4.0 - 9.5 x10(3)/[facility] RBC 4.22 4.00 - 5.21 x10(6)/[facility] Hemoglobin 11.9 11.7 - 15.5 gm/dL [facility] Hematocrit 36.6 35.7 - 45.8 % [facility] MCV 86.7 82.6 - 94.[address] [facility] MCH 28.2 27.1 - 32.[address] [facility] MCHC 32.5 31.7 - 35.0 gm/dL [facility] Platelets 217 145 - 357 x10(3)/[facility] RDWSD 48.3(H) 37.0 - 46.0 [facility] RDWCV 15.1(H) 11.5 - 14.1 % [facility] MPV 9.8 7.6 - 12.9 [facility] nRBC % Auto 0.0 % [facility] nRBC Abs Auto 0.000 0.000 - 0.000 x10(3)/[facility] Blood specimen (specimen) 07/09/2018 8:40 AM EST 07/09/2018 8:44 AM EST Narrative Resulting Agency Comment Spec In Lab Danny Gordon MD HEMATOLOGY ORDERABLE S [facility] [place] [address] * (ABNORMAL) Comprehensive metabolic panel (non-fasting) (07/09/2018 8:40 AM EST) Glucose Lvl 123 65 - 199 mg/dL [facility] Comment:Diabetes: >=200 mg/d L plus symptoms BUN 22(H) 8 - 18 mg/dL [facility] Creatinine 1.34(H) 0.70 - 1.20 mg/dL [facility] Sodium 137 135 - 145 mmol/L [facility] Potassium 4.2 3.5 - 5.0 mmol/L [facility] Comment: Please note: ??Patients with WBC >100,000 may have falsely elevated Potassium levels. ??For accurate Potassium quantification in these patients send serum separator tube (gold top) for subsequent determinations. ??Contact the Clinical Chemistry Laboratory if there are any questions. Chloride 97(L) 98 - 107 mmol/L [facility] CO2 27 22 - 31 mmol/L [facility] Anion Gap 13 5 - 15 mmol/L [facility] Calcium 9.8 8.5 - 10.5 mg/dL [facility] Total Protein 6.9 6.1 - 8.0 gm/dL [facility] Albumin 3.9 3.2 - 5.2 gm/dL [facility] AST 14 0 - 30 unit/L [facility] ALT 11 0 - 30 unit/L [facility] Alk Phos 94 40 - 104 unit/L [facility] Total Bilirubin 0.2 0.2 - 1.3 mg/dL [facility] Estimated GFR 39(L) >=60 mL/min/1. 73 m?? [facility] Comment: The eGFR was calculated using the CKD-EPI equation. As with all creatinine based estimates of kidney function, eGFR values calculated with the CKD-EPI equation are not accurate in patients with acute kidney failure, extremes of body mass or the acutely ill. [email or web address] eGFR 45(L) >=60 mL/min/1. 73 m?? [facility] Comment: The eGFR was calculated using the CKD-EPI equation. As with all creatinine based estimates of kidney function, eGFR values calculated with the CKD-EPI equation are not accurate in patients with acute kidney failure, extremes of body mass or the acutely ill. [email or web address] Blood specimen (specimen) 07/09/2018 8:40 AM EST 07/09/2018 8:44 AM EST Narrative Resulting Agency Comment Spec In Lab Danny Gordon MD CHEMISTRY ORDERABLES [facility] [place] [address] documented in this encounter Visit Diagnoses Diagnosis Metastatic urothelial carcinoma Secondary malignant neoplasm of other urinary organs documented in this encounter Care Teams Director Design Relationship Specialty Start Date End Date Dulce Hidalgo MD [address] [facility] [address] [place] [address] PCP - General Family Medicine 09/30/16 documented as of this encounter
--- OUTSIDE RECORDS SUMMARY | 2024-01-11 13:19 | XMS_ITS | Encounter Summary ---
Author Organization [facility] [place] [address] Care Team Providers Care Associate Professor Of Forestry Name Role Phone Dulce Hidalgo MD Primary Care Provider [phone] Reason for Visit * Reason Comments Follow-up Encounter Details Date Type Department Care Team (Late st Contact Info) Description 08/21/2018 11:20 AM EDT [place] [phone] Ariel Do MD [facility] [place] [address] Urothelial carcinoma (Primary Dx) Social History Tobacco [...] Sign Reading Time Taken Comments Blood Pressure 143/92 08/21/2018 11:23 AM EDT Pulse - - Temperature - - Respiratory Rate - - Oxygen Saturation - - Inhaled Oxygen Concentration - - Weight - - Height - - Body Mass Index - - documented in this encounter Patient Instructions * Patient Instructions* Gertrude Diaz RN - 08/21/2018 11:20 AM EDT Instructions following Cystoscopy Activity: As tolerated by your comfort level. Fluids: You should increase your water today. Avoid coffee, tea and cola. You do not need to tbbpuy20 ounces of water today. Urination: You will likely have a small amount of blood in your urine for the next several days. This is normal; however, if you are passing large amounts of blood clots or are unable to void please call our office at [phone] before 5PM or [phone] after hours. Please call if: * you have copious blood in your urine * fevers greater than 101.3 F * you are unable to void The number for questions is [phone] before 5 PM weekdays and [phone] after 5 PM and weekends. Follow-up: In 6 months with a cystoscopy documented in this encounter Progress Notes * Ariel Do MD - 08/21/2018 11:20 AM EDT Patient Name: Isaura Aguiar Date of Service: 08/21/2018 Primary Care Provider: Dulce Hidalgo MD Reason for Visit: Isaura Aguiar is a 77 y.o. female with metastatic right upper ureteral [...] her appetite back and is eating well. Patient Active Problem List Diagnosis ??? 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 The patient has been for [...] No tumors 08/2018: Absent RUO. No tumors Lab values are reviewed 10/2017 1.28, eGFR 41 07/2018 Cr 1.5, eGFR 34 Imaging 12/[address] No metastatic disease. 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, pT3pN2, s/p right nephroureteretcomy, negative bladder cuff margin #2: Stage 3a CRI #3: Morbid obesity #4: BRAC2 mutation #5: Moderate co-morbidity #6: Incisional hernia through extraction site sp repair Plan: Will take over cancer f/u 6 months with a cystoscopy CMP/CT chest/abd/pelvis Ariel Do documented in this encounter Procedure Notes * Ariel Do MD - 08/21/2018 11:20 AM EDTAssociated Order(s): CYSTOSCOPY Pre-Procedure Diagnose(s): Urothelial carcinoma [...] Priority Date/Time Associated Diagnosis Comments CYSTOSCOPY Routine 08/21/2018 11:20 AM EDT Urothelial carcinoma documented in this encounter Results * (ABNORMAL) Comprehensive metabolic panel (non-fasting) (02/25/2019 9:50 AM EDT) Glucose Lvl 117 65 - 199 mg/dL [facility] Comment:Diabetes: >=200 mg/d L plus symptoms BUN 14 8 - 18 mg/dL [facility] Creatinine 1.27(H) 0.70 - 1.20 mg/dL [facility] Sodium 133(L) 135 - 145 mmol/L [facility] Potassium 3.9 3.5 - 5.0 mmol/L [facility] Comment: Please note: ??Patients with WBC >100,000 may have falsely elevated Potassium levels. ??For accurate Potassium quantification in these patients send serum separator tube (gold top) for subsequent determinations. ??Contact the Clinical Chemistry Laboratory if there are any questions. Chloride 95(L) 98 - 107 mmol/L [facility] CO2 26 22 - 31 mmol/L [facility] Anion Gap 12 5 - 15 mmol/L [facility] Calcium 10.0 8.5 - 10.5 mg/dL [facility] Total Protein 7.4 6.1 - 8.0 gm/dL [facility] Albumin 3.9 3.2 - 5.2 gm/dL [facility] AST 18 0 - 30 unit/L [facility] ALT 10 0 - 30 unit/L [facility] Alk Phos 91 35 - 105 unit/L [facility] Total Bilirubin 0.5 0.2 - 1.3 mg/dL [facility] Estimated GFR 41(L) >=60 mL/min/1. 73 m?? [facility] Comment: The eGFR was calculated using the CKD-EPI equation. As with all creatinine based estimates of kidney function, eGFR values calculated with the CKD-EPI equation are not accurate in patients with acute kidney failure, extremes of body mass or the acutely ill. [email or web address] eGFR 47(L) >=60 mL/min/1. 73 m?? [facility] Comment: The eGFR was calculated using the CKD-EPI equation. As with all creatinine based estimates of kidney function, eGFR values calculated with the CKD-EPI equation are not accurate in patients with acute kidney failure, extremes of body mass or the acutely ill. [email or web address] Blood specimen (specimen) 02/25/2019 9:50 AM EDT 02/25/2019 10:11 AM EDT Narrative Resulting Agency Comment Spec In Lab Ariel Do MD CHEMISTRY ORDERABLES Performing Organization Address City/State/[facility] Co de Phone Number [facility] [place] [address] * Cystoscopy (08/21/2018 11:20 AM EDT) Narrative Ariel Do MD - 08/21/2018 11:20 AM EDT Ariel Do MD ? 08/21/2018 11:57 AM Procedure: Flexible Cystoscopy Surgeon: Ariel Do [...] site documented in this encounter Care Teams Associate Professor Of Forestry Relationship Specialty Start Date End Date Dulce Hidalgo MD [address] [place] [address] PCP - General Family Medicine 09/30/16 documented as of this encounter
--- OUTSIDE RECORDS SUMMARY | 2024-01-11 13:19 | XMS_ITS | Encounter Summary ---
Author Organization [facility] [place] [address] Care Team Providers Care Filter Tip Inspector Name Role Phone Dulce Hidalgo MD Primary Care Provider [phone] Reason for Visit * Auth/Cert Specialty Diagnoses / Procedures Referred By Christal t Referred To Contact Diagnoses Ventral hernia Referral ID Status Reason Start Date Expiration Date Visits Re quested Visits Authorized [id number] 1 1 Encounter Details Date Type Department Care Team (Late st Contact Info) Description 07/17/2018 9:32 AM EST Anesthesia Event Main [place] [address] Emma Arias MD [facility] [place] [address] Freddy Escoto CRNA [facility] [place] [address] Anesthesia Record Procedure Summary Procedure Name Responsible Anesthesiologist Anesthesia Start Time Anesthesia Stop Time REPAIR INITIAL INCISIONAL OR VENTRAL HERNIA REDUCIBLE (WRVU 11.92) (Abdomen) Emma Arias MD 07/17/18 0932 07/17/18 1417 Events Date Time Event Comment 07/17/2018 0855 0930 AN Verify 0932 Start 0932 An Start Data 0943 An Induction 0946 An Intubation 0950 Anesthesia Ready 1021 Break/Relief In BRENDA Nevarez AND LES, OVEREDGER 1038 Break/Relief Out 1356 Extubation/LMA Out 1359 an stop data 1415 Recovery or ICU Handoff Bernice ent care was transferred to the destination unit staff after review of the patient's medical history, current anesthetic/surgical status and plan, according to the Provider Handoff Checklist. 1417 Stop Meds Name Total fentaNYL 100 mcg Propofol 150 mg Rocuronium 70 mg PHENYLephrine 320 mcg Ondansetron 6 mg Propofol INF 898.83 mg Dexmedetomidine 20 mcg ceFAZolin 4 g HYDROmorphone 0.4 mg Sugammadex 200 mg Lactated Ringers 1,500 mL * Agents Name O2 Air N2O Sevoflurane (et) * Blood No blood administrations on file. Lines, Drains, and Airways Type Details Placement Removal Incision 11/02/16; 1610; abdo men; laparoscopic punctures (specify); 07/21/18; 93711/02/16 1610 by Sahara Iqbal RN 07/21/18 0938 by Zahra Fink RN Incision 12/21/16; 0909; ches t; laparoscopic puncture (Mediport placement); 07/21/18; 93712/21/16 0909 by Catie Bradley RN 07/21/18 0938 by Zahra Fink RN (RETIRED) Implanted Port - Single Lumen (non-apheresis) 12/21/16; 0924; infraclavicular fossa, right; power injectable port; superior vena cava; Angel Lujan APRN; lot # [id number]; 10/06/23; 2029 (Not present upon assessment) 12/21/16 0924 by Catie Bradley RN 10/06/232029 by Terry Shankar RN Incision 06/14/17; 1053; ches t; horizontal; Mediport removal site; 07/21/18; 0939 06/14/17 1053 by Catie Whiting RN 07/21/18 0939 by Zahra Fink RN (RETIRED) Peripheral IV Line - Single Lumen 07/16/18; median cubital vein (antecubital fossa), left; [id number]-[id number] catheter system; 20 gauge; OSH; stage 2 LR infiltrate; site symptomatic, removed per policy/procedure, site care per policy/procedure, catheter/device intact; 07/18/18; 0907/16/18 0000 by Missy Eldridge RN 07/18/18 0933 by Batool Alejo RN ETT Mask Ventilation: Ea sy (1); ETT Type: Cuffed, Oral; ETT Size: 7 mm; Mac Blade: 3; Notes: Asleep, Pre-O2, Cricoid Pressure, Stylette; Attempts: 1; Laryngoscopy Grade: 1; ETT Placement Verified By: Auscultation, Capnometry, Visual; Secured at Teeth: 21 cm; Inserted by: ADDIS Escoto; Removal Date: 07/17/18; Removal Time: 1356 07/17/18 0946 by Freddy Escoto, OVEREDGER 07/17/18 1356 by Freddy Escoto, ADDIS Urethral Catheter 07/17/18; 0947; Abdo giulia surgery, Surgery longer than 2 hours; Physician order; indwelling double lumen catheter; latex; 14; inserted at this facility; 1 (Inserted by Mayra Turner RN, inserted easily with clear yellow return); 10; 10; drainage bag to dependent drainage; urethral catheter removed; 07/19/18; 0704 07/17/18 0947 by Mayra Turner RN 07/19/18 0704 by Laury Strong, POWER ELECTRONICS RESEARCH ENGINEER Incision 07/17/18; 1007; abdo men; 02/07/22 (LDA cleanup utility RA#[id number]); 1715 (LDA cleanup utility RA#[id number]) 07/17/18 1007 by Mayra Turner RN 02/07/22 1715 by Rob Pugh Drain/Device Site 07/17/18; 1326; Righ t; lower; abdomen; collapsible closed device (19 fr); Dr. Michael Carroll; Sterile prep and drape; 10/06/23; 2030 (Not present upon assessment) 07/17/18 1326 by Mayra Turner RN 10/06/232030 by Terry Shankar RN documented in this encounter Social History [...] of this encounter OR Notes * Anesthesia Preprocedure Evaluation - Emma Arias MD - 07/17/2018 8:52 AM EST Pre-Anesthesia Evaluation for: Isaura Aguiar a 77 y.o. female. Procedure(s): REPAIR INITIAL INCISIONAL OR VENTRAL HERNIA REDUCIBLE (WRVU 11.92) Patient Active Problem List Diagnosis ??? Ventral [...] Osteopenia 01/22/2011 ??? Stage III Ovarian cancer Social History Tobacco Use ??? Smoking status: [...] home medications have been reviewed. Physical Exam: Most Recent Vitals: 07/17/18 0700 BP: 144/56 Pulse: 68 Resp: 16 Temp: 36.5 ??C (97.7 ??F) SpO2: 97% Body mass index is 54.82 kg/m??. Height: 154.9 cm (5' 1) Weight: 131.6 kg (290 lb 2 oz) Airway Assessment: Mallampati: II Cardiovascular Assessment: Pulmonary Assessment: Dental Assessment: Misc Assessment: Anesthesia Plan: ASA 2 general, Informed Consent: PAT Staff Note documented in this encounter Plan of Treatment Not on file documented as of this encounter Visit Diagnoses Not on filedocumented in this encounter Administered Medications Inactive Administered Medications - up to 3 most recent administrations Medication Order MAR Action Action Date Dose Rate Site ceFAZolin (ANCEF) 1g in dextrose 5% 50mL PRN, Starting on Mon07/17/18 at 0950, Until Mon07/17/18 at 1417, Administer over 30 Minutes, Anesthesia Intra-op Given 07/17/2018 1:04 PM EST 2 g Given 07/17/2018 9:50 AM EST 2 g dexmedetomidine (PRECEDEX) injection PRN, Starting on Mon07/17/18 at 0949, Until Mon07/17/18 at 1417, Anesthesia Intra-op, Routine Given 07/17/2018 1:20 PM EST 4 mcg Given 07/17/2018 12:08 PM EST 4 mcg Given 07/17/2018 12:02 PM EST 4 mcg fentaNYL 50 mcg/mL multi-dose injection PRN, Starting on Mon07/17/18 at 0949, Until Mon07/17/18 at 1417, Anesthesia Intra-op, Routine Given 07/17/2018 11:38 AM EST 25 mcg Given 07/17/2018 11:05 AM EST 25 mcg Given 07/17/2018 10:58 AM EST 25 mcg HYDROmorphone (DILAUDID) injection PRN, Starting on Mon07/17/18 at 1325, Until Mon07/17/18 at 1417, Anesthesia Intra-op, Routine Given 07/17/2018 2:13 PM EST 0.2 mg Given 07/17/2018 1:25 PM EST 0.2 mg lactated Ringers infusion CONTINUOUS PRN, Starting on Mon07/17/18 at 0930, Until Mon07/17/18 at 1417, Anesthesia Intra-op New Bag 07/17/2018 11:[address] New Bag 07/17/2018 9:30 AM EST ondansetron (ZOFRAN) injection PRN, Starting on Mon07/17/18 at 1200, Until Mon07/17/18 at 1417, Anesthesia Intra-op, Routine Given 07/17/2018 1:39 PM EST 2 mg Given 07/17/2018 12:00 PM EST 4 mg PHENYLephrine in NS (PF) (GEREMIAS-SYNEPHRINE) 0.8 mg/10 mL (80 mcg/mL) multi-dose injection Syrg PRN, Starting on Mon07/17/18 at 0956, Until Mon07/17/18 at 1417, Anesthesia Intra-op, Routine Given 07/17/2018 1:28 PM EST 80 mcg Given 07/17/2018 10:32 AM EST 80 mcg Given 07/17/2018 10:04 AM EST 80 mcg propofol (DIPRIVAN) 10 mg/mL bolus injection (Anesthesia) PRN, Starting on Mon07/17/18 at 0943, Until Mon07/17/18 at 1417, Anesthesia Intra-op Given 07/17/2018 9:43 AM EST 150 mg propofol (DIPRIVAN) infusion CONTINUOUS PRN, Starting on Mon07/17/18 at 0950, Until Mon07/17/18 at 1417, Anesthesia Intra-op, Routine Rate/Dose Change 07/17/2018 10:21 AM EST 25 mcg/kg/min 19.7 mL/hr New Bag 07/17/2018 9:50 AM EST 30 mcg/kg/min 23.7 mL/hr rocuronium (ZEMURON) multi-dose injection PRN, Starting on Mon07/17/18 at 0944, Until Mon07/17/18 at 1417, Anesthesia Intra-op, Routine Given 07/17/2018 11:40 AM EST 10 mg Given 07/17/2018 11:06 AM EST 10 mg Given 07/17/2018 9:44 AM EST 50 mg sugammadex (BRIDION) 100 mg/mL injection PRN, Starting on Mon07/17/18 at 1344, Until Mon07/17/18 at 1417, Anesthesia Intra-op, Routine Given 07/17/2018 1:44 PM EST 200 mg documented in this encounter Care Teams Filter Tip Inspector Relationship Specialty Start Date End Date Dulce Hidalgo MD [address] [place] [address] PCP - General Family Medicine 09/30/16 documented as of this encounter
--- OUTSIDE RECORDS SUMMARY | 2024-01-11 13:19 | XMS_ITS | Encounter Summary ---
[place] [address] Care Team Providers Care Resource Specialist Name Role Phone Dulce Hidalgo MD Primary Care Provider [phone] Encounter Details Date Type Department Care Team (Latest Contact Info) Description 03/20/2018 8:55 AM EDT Laboratory Appointment Lab [address] [place] [phone] Metastatic urothelial carcinoma Social History Tobacco Use [...] Priority Date/Time Associated Diagnosis Comments HEMOGRAM Routine 03/20/2018 9:08 AM EDT Metastatic urothelial carcinoma DIFFERENTIAL, AUTOMATED Routine 03/20/2018 9:08 AM EDT Metastatic urothelial carcinoma CBC (WITH DIFF) Routine 03/20/2018 9:08 AM EDT Metastatic urothelial carcinoma COMPREHENSIVE METABOLIC PANEL (NON-FASTING) Routine 03/20/2018 9:08 AM EDT Metastatic urothelial carcinoma documented in this encounter Results * Differential, Automated (03/20/2018 9:08 AM EDT) Neutrophils % 62.8 % [facility] Neutr Abs (ANC) 4.13 1.70 - 6.10 x10(3)/[facility] Lymphocytes % 25.7 % [facility] Lymphocytes Abs 1.7 0.9 - 3.2 x10(3)/[facility] Monocytes % 8.7 % [facility] Monocyte Abs 0.6 0.3 - 0.9 x10(3)/[facility] Eosinophils % 1.7 % [facility] Eosinophils Abs 0.1 0.0 - 0.4 x10(3)/[facility] Basophils % 0.5 % [facility] Basophils Abs 0.0 0.0 - 0.1 x10(3)/[facility] Immature Gran % 0.60 % [facility] Comment: Immature granulocytes(IG's)percentage and absolute count will include metamyelocytes, myelocytes, and promyelocytes. Blood smears from CBCs yielding IG's will be scanned manually for concordance. If this scan disagrees with the automated IG or if promyelocytes are noted, a manual differential will be performed. [place] Gran Abs 0.04 0.00 - 0.04 x10(3)/[facility] Blood specimen (specimen) 03/20/2018 9:08 AM EDT 03/20/2018 9:15 AM EDT Narrative Resulting Agency Comment Spec In Lab Danny Gordon MD HEMATOLOGY ORDERABLE S [facility] [place] [address] * (ABNORMAL) Hemogram (03/20/2018 9:08 AM EDT) WBC 6.6 4.0 - 9.5 x10(3)/[facility] RBC 3.78(L) 4.00 - 5.21 x10(6)/[facility] Hemoglobin 11.1(L) 11.7 - 15.5 gm/dL [facility] Hematocrit 34.4(L) 35.7 - 45.8 % [facility] MCV 91.0 82.6 - 94.[address] [facility] MCH 29.4 27.1 - 32.[address] [facility] MCHC 32.3 31.7 - 35.0 gm/dL [facility] Platelets 220 145 - 357 x10(3)/[facility] RDWSD 49.6(H) 37.0 - 46.0 [facility] RDWCV 14.9(H) 11.5 - 14.1 % [facility] MPV 10.1 7.6 - 12.9 [facility] nRBC % Auto 0.0 % [facility] nRBC Abs Auto 0.000 0.000 - 0.000 x10(3)/[facility] Blood specimen (specimen) 03/20/2018 9:08 AM EDT 03/20/2018 9:15 AM EDT Narrative Resulting Agency Comment Spec In Lab Danny Gordon MD HEMATOLOGY ORDERABLE S [facility] [place] [address] * (ABNORMAL) Comprehensive metabolic panel (non-fasting) (03/20/2018 9:08 AM EDT) Glucose Lvl 98 65 - 199 mg/dL [facility] Comment:Diabetes: >=200 mg/d L plus symptoms BUN 30(H) 8 - 18 mg/dL [facility] Creatinine 1.78(H) 0.70 - 1.20 mg/dL [facility] Sodium 141 135 - 145 mmol/L [facility] Potassium 4.5 3.5 - 5.0 mmol/L [facility] Comment: Please note: ??Patients with WBC >100,000 may have falsely elevated Potassium levels. ??For accurate Potassium quantification in these patients send serum separator tube (gold top) for subsequent determinations. ??Contact the Clinical Chemistry Laboratory if there are any questions. Chloride 101 98 - 107 mmol/L [facility] CO2 26 22 - 31 mmol/L [facility] Anion Gap 14 5 - 15 mmol/L [facility] Calcium 9.6 8.5 - 10.5 mg/dL [facility] Total Protein 6.8 6.1 - 8.0 gm/dL [facility] Albumin 3.7 3.2 - 5.2 gm/dL [facility] AST 17 0 - 30 unit/L [facility] ALT 12 0 - 30 unit/L [facility] Alk Phos 112(H) 40 - 104 unit/L [facility] Total Bilirubin 0.2 0.2 - 1.3 mg/dL [facility] Estimated GFR 27(L) >=60 mL/min/1. 73 m?? [facility] Comment: The eGFR was calculated using the CKD-EPI equation. As with all creatinine based estimates of kidney function, eGFR values calculated with the CKD-EPI equation are not accurate in patients with acute kidney failure, extremes of body mass or the acutely ill. http://DeckDAQ/[facility] eGFR 32(L) >=60 mL/min/1. 73 m?? [facility] Comment: The eGFR was calculated using the CKD-EPI equation. As with all creatinine based estimates of kidney function, eGFR values calculated with the CKD-EPI equation are not accurate in patients with acute kidney failure, extremes of body mass or the acutely ill. http://DeckDAQ/[facility] Blood specimen (specimen) 03/20/2018 9:08 AM EDT 03/20/2018 9:15 AM EDT Narrative Resulting Agency Comment Spec In Lab Danny Gordon MD CHEMISTRY ORDERABLES [facility] [place] [address] documented in this encounter Visit Diagnoses Diagnosis Metastatic urothelial carcinoma Secondary malignant neoplasm of other urinary organs documented in this encounter Care Teams Resource Specialist Relationship Specialty Start Date End Date Dulce Hidalgo MD [facility] [address] [facility] [address] [place] [address] PCP - General Family Medicine 09/30/16 documented as of this encounter
--- OUTSIDE RECORDS SUMMARY | 2024-01-11 13:19 | XMS_ITS | Encounter Summary ---
[place] [address] Care Team Providers Care Lathe Operator Name Role Phone Dulce Hidalgo MD Primary Care Provider [phone] Encounter Details Date Type Department Care Team (Late st Contact Info) Description 08/21/2018 9:00 AM EDT Office Visit [place] [address] Anni Multani, CARGO STATION WORKER [facility] [place] [address] Surgery follow-up Social History Tobacco Use Types Packs/Day Years Used Date Smoking Tobacco: Never Smokeless Tobacco: Never Alcohol Use Standard Drinks/Week Comments No 0 (1 standard drink = 0.6 oz pur e alcohol) Sex and Gender Information Value Date Recorded Sex Assigned at Not on file Gender Identity Not on file Sexual Orientation Not on file documented as of this encounter Progress Notes * Anni Multani, CARGO STATION WORKER - 08/21/2018 9:00 AM EDT Isaura Aguiar presents for surgical follow up. 07/17/18: Repair incisional hernia with mesh-Glen Findings: 10 x 10 centimeter defect. Retro-rectus repair with Bard mesh. Pathology: DIAGNOSIS A - Fibromembranous tissue, hernia sac. ?? Gross surgical pathology examination. Isaura tells me she is feeling pretty well. She is having minimal incisional pain, and only when she twists or beds over. She denies fevers or chills, she is eating, moving her bowels and voiding without difficulty. She denies any abd pain, nausea or vomiting, stamina and appetite ate good. She is pleased with her progress EXAM: Looks well, moves easily about the exam room and onto the exam table. Abd is soft non tender non distended, midline incision is nicely healed, no erythema or fluctuance, there is no bulge with valsalva Impression/plan: Isaura is doing very well, incision is healed I have asked her not to lift >15 lbs until she is 6 weeks post surgery date. At this time, Isaura may FU with us on an as needed basis, I am happy to see her back should anything specific arise or should she have any question or concern documented in this encounter Plan of Treatment Not on file documented as of this encounter Visit Diagnoses Diagnosis Surgery follow-up Follow-up examination, following unspecified surgery documented in this encounter Care Teams Lathe Operator Relationship Specialty Start Date End Date Dulce Hidalgo MD [address] [place] [address] PCP - General Family Medicine 09/30/16 documented as of this encounter
--- OUTSIDE RECORDS SUMMARY | 2024-01-11 13:19 | XMS_ITS | Encounter Summary ---
[place] [address] Care Team Providers Care Mysql Database Developer Name Role Phone Dulce Hidalgo MD Primary Care Provider [phone] Encounter Details Date Type Department Care Team (Late st Contact Info) Description 10/03/2018 Tele[place] [phone] Caity Carmona Social History Tobacco Use Types Packs/Day Years [...] encounter Miscellaneous Notes * Telephone Encounter - Caity Carmona - 10/03/2018 1:07 PM EDT Sent letter for patient to schedule colo per referral . documented in this encounter Plan of Treatment Not on file documented as of this encounter Visit Diagnoses Not on filedocumented in this encounter Care Teams Mysql Database Developer Relationship Specialty Start Date End Date Dulce Hidalgo MD [facility] [address] [address] PCP - General Family Medicine 09/30/16 documented as of this encounter
--- OUTSIDE RECORDS SUMMARY | 2024-01-11 13:19 | XMS_ITS | Encounter Summary ---
Author Organization [facility] [place] [address] Care Team Providers Care Aerodynamics Engineer Name Role Phone Dulce Hidalgo MD Primary Care Provider [phone] Encounter Details Date Type Department Care Team (Late st Contact Info) Description 03/20/2018 Orders [place] [address] Noam Cano MD [facility] [place] [address] Social History Tobacco Use Types Packs/Day Years [...] on filedocumented in this encounter Care Teams Aerodynamics Engineer Relationship Specialty Start Date End Date Dulce Hidalgo MD [address] [place], [place] [address] PCP - General Family Medicine 09/30/16 documented as of this encounter
--- OUTSIDE RECORDS SUMMARY | 2024-01-11 13:19 | XMS_ITS | Encounter Summary ---
[place] [address] Care Team Providers Care Waste Machine Operator Name Role Phone Dulce Hidalgo MD Primary Care Provider [phone] Encounter Details Date Type Department Care Team (Late st Contact Info) Description 07/25/2018 Telephone [place] [phone] Ashely Bateman, RN Social History Tobacco Use Types Packs/Day [...] encounter Miscellaneous Notes * Telephone Encounter - Ashely Bateman RN - 07/25/2018 2:12 PM EST Nursing Triage - Phone Note DATE OF CALL: 07/25/2018 TIME OF CALL: 2:12 PM PATIENT DATE OF : 1940 CALLER: RN to the patient Learning Needs Assessment Reviewed: Yes SUBJECTIVE - How are you doing since your surgery? PERTINENT PAST MEDICAL HISTORY: PT is s/p Brief Operative Note ?? Patient Name: Isaura Aguiar : [id number] MR#: [id number] ?? Case Date: 07/17/2018 ?? Surgeon: Surgeon(s) and Role: * Michael Carroll MD - Primary * Aissatou Garcia MD - Resident-Surgeon Chief * Bobo Larose MD - Resident-Surgeon Mo ?? Preoperative diagnosis: ventral hernia ?? Postoperative diagnosis: ventral hernia ?? Procedure(s) (LRB): REPAIR INITIAL INCISIONAL OR VENTRAL HERNIA REDUCIBLE (WRVU 11.92) (N/A) MODIFIER MESH,BARD SOFT MESH (Midline) ?? Anesthesia: General ?? Findings: 10 x 10 centimeter defect. Retro-rectus repair with Bard mesh. ?? NURSING OBJECTIVE/ASSESSMENT: PT is doing well. Overall. She is taking things slow, minimal pain meds , bowels are working, voiding without difficulty. She is wearing her abdominal binder and she is moving well but slow. Her drain is still puttingout 50 cc's in the last 48 so she will count for the next 2 days what her amounts are . I have contacted [facility] surgical center. They are happy to pull the drain when it needs to be pulled. All info faxed . 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 INTERVENTION/PLAN/ FOLLOW UP: PT had 10 cc's today in the last 24 hrs. If she is under tomorrow shewill call the surgery center and have the drain removed. All under the order of Dr Sanchez. If your symptoms do not improve, or they worsen, report to your local emergency department. CALLER AGREES: Yes PCP: Dulce Hidalgo MD documented in this encounter Plan of Treatment Not on file documented as of this encounter Visit Diagnoses Not on filedocumented in this encounter Care Teams Waste Machine Operator Relationship Specialty Start Date End Date Dulce Hidalgo MD [address] [place] [id number] PCP - General Family Medicine 09/30/16 documented as of this encounter
--- OUTSIDE RECORDS SUMMARY | 2024-01-11 13:19 | XMS_ITS | Encounter Summary ---
[place] [address] Care Team Providers Care Wrapper Dipper Name Role Phone Dulce Hidalgo MD Primary Care Provider [phone] Encounter Details Date Type Department Care Team (Late st Contact Info) Description 11/30/2018 11:15 AM EDT - 11/30/2018 12:15 PM EDT [place] [id number] Noam Masters MD [facility] [address] COLONOSCOPY, DIAGNOSTIC (WRVU 3.26) Social History Tobacco Use Types Packs/Day Years [...] to be checked. Monday-Monday Same Day Endo [phone] 7a-8p Otherwise contact [phone] and ask to speak to the operations scheduler personal security specialist Follow up care is a stein part [...] mouth daily. ??? fluticasone (FLONASE) 50 mcg/actuation [place], Suspension 1 spray daily. ??? rivaroxaban (XARELTO) [...] MALEATE (COMPAZINE ORAL) Take by mouth. ??? idmp-gza-ufo-epm-jeml-pjzu-pec (FIBER 6) 1,000 mg Tablet Take by [...] 7 AM EDT 11/30/2018 11:27 AM EDT [facility] LABORATORY - 11/30/2018 11:27 AM EDT Specimen requisition ordered. ??Separate Pathology report to follow Noam Masters MD PATHOLOGY/CYTOLOGY ORDERABLES [facility] [place] [address] * COLONOSCOPY (11/30/2018 11:16 AM EDT) COLONOSCOPY [facility] Endoscopy Procedure Date: 11/30/2018 11:16 AM ? Patient Name: Isaura Aguiar ? N: [id number] ? Date of : 1940 ? Age: 78 ? Order #: [id number] ? Instrument Name: ? Procedure: ? Colonoscopy [...] MD GENERAL SURGICAL ORD ERABLES [employer]ATION * Surgical Pathology Report (11/30/2018 11:11 AM EDT) FINAL DIAGNOSIS (AP) [id number] ? Location: 4T; EA08; A The signing pathologist has (i) examined the relevant preparation(s) for the specimen(s) and (ii) rendered or confirmed the diagnosis(es). . ?Surgical Pathology DIAGNOSIS Stomach, ??biopsy: Gastric antral and fundic gland mucosa with nonspecific reactive gastropathy. No H. pylori-like microorganism is seen. Electronically signed by: ??Jaspreet KWOK, Soren Greene Verified: ??12/03/2018 ?Pathologist Performed at: ??-[facility] Dept. of Pathology, [place], [place] CLINICAL INFORMATION Specimen Submitted: A - Non targeted gastric bx Clinical History and Diagnosis: 78-year-old female with history of dyspepsia; R/O H. pylori SPECIMEN PROCESSING A - Labeled/Fixative: Non-targeted gastric BX, formalin. Quantity/Size: Four, ranging from 0.2-0.4 cm. Tissue Description: Soft, pink tissues. Sections/Processi ng: Submitted en toto ??in 1 cassette labeled A1. ??sns 12/03/2018 4:16 PM EDT [facility] GI Biopsy 11/30/2018 11:1 1 AM EDT 11/30/2018 11:11 AM EDT Noam Masters MD PATHOLOGY/CYTOLOGY ORDERABLES [facility] [place] [address] * UPPER GI ENDOSCOPY (11/30/2018 10:54 AM EDT) UPPER GI ENDOSCOPY [facility] Endoscopy Procedure Date: 11/30/2018 10:54 AM ? Patient Name: Isaura Aguiar ? Date of : 1940 ? Age: 78 ? Order #: [id number] ? Instrument Name: [id number] ? Procedure: ? Upper GI endoscopy Indications: [...] 38-40 cm. There was a ? nonobstructive Schatzki's ring present above the ? stricture ? The stomach was normal with the exception of mild ? atrophy in the antrum - this was biopsied with a cold ? forceps for histology. ? The examined duodenum was normal. ? Moderate Sedation: ? Not applicable - See Anesthesia documentation Impression: ?- Hiatal hernia with nonobstructive ? Schatzki's ring ? - Atopic appearing antrum Recommendation: [...] CRNA) documented in this encounter Care Teams Wrapper Dipper Relationship Specialty Start Date End Date Dulce Hidalgo MD [address] [place] [address] PCP - General Family Medicine 09/30/16 documented as of this encounter
--- OUTSIDE RECORDS SUMMARY | 2024-01-11 13:19 | XMS_ITS | Encounter Summary ---
[place] [address] Care Team Providers Care Air Export Operations Agent Name Role Phone Dulce Hidalgo MD Primary Care Provider [phone] Reason for Referral * Diagnostic Test (Routine) - Closed Specialty Diagnoses / Procedures Referred By Contac t Referred To Contact Radiology Diagnoses Metastatic urothelial carcinoma Procedures CT Chest Abdomen Pelvis w Contrast (Generic) Danny Gordon MD [facility] [place] [address] [facility] [place] [address] Referral ID Status Reason Start Date Expiration Date V isits Requested Visits Authorized [id number] Closed Specialty Service Requested 12/05/2017 12/05/2018 1 1 Reason for Visit * Diagnostic Test (Routine) - Closed Specialty Diagnoses / Procedures Referred By Contac t Referred To Contact Radiology Diagnoses Metastatic urothelial carcinoma Procedures CT Chest Abdomen Pelvis w Contrast (Generic) Danny Gordon MD [facility] [place] [address] [facility] [place] [address] Referral ID Status Reason Start Date Expiration Date V isits Requested Visits Authorized [id number] Closed Specialty Service Requested 12/05/2017 12/05/2018 1 1 Encounter Details Date Type Department Care Team (Latest Contact Info) Description 03/20/2018 9:37 AM EDT - 03/20/2018 11:59 PM EDT Hospital Encounter CT Scan [place] [place] [address] Danny Gordon MD [facility] [place] [address] Metastatic urothelial carcinoma Discharge Disposition: [...] Sig Dispensed Refills Start Date End Date rivaroxaban (Xarelto) 15 mg Tablet Take 10 [...] as of this encounter Progress Notes * Kassy James RN - 03/20/2018 2:00 PM EDT Vascular and Interventional Radiology Sodium Bicarbonate Protocol Administration Notes Name: Isaura Aguiar Age: 77 y.o. Sex; Female Date of : 1940 PCP Dulce Hidalgo MD [phone] Time Treatment started: 1400 Time Treatment ended: Reason for visit: CT Scan with Contrast. Need for bicarb Protocol Subjective: Isaura Aguiar offers no complaints. Objective: Lab Data: BUN Date/Time Value Ref Range Status 03/20/2018 09:08 AM 30 (H) 8 - 18 mg/dL Final Creatinine Date/Time Value Ref Range Status 03/20/2018 09:08 AM 1.78 (H) 0.70 - 1.20 mg/dL Final Pain Level: 0 If > 5, Interventions and Effectiveness: IV Access: Left Gauge: 20 g Blood return: yes Any signs or symptoms of infection or extravasations 1 hour after initiation: none 2 hours after initiation: none 3 hours after initiation: na 4 hours after initiation: na IV flushed with : 10 ml normal saline IV discontinued: Treatment: Normal saline with initiated at rate of 390 cc ml/hr for 1 hour, then 130 ml hour for 2 Hours per MD. Reaction: none Assessment: Isaura Aguiar was awake, alert and tolerated the treatment well. Plan: Patient will follow up with referring physician. documented in this encounter Plan of Treatment Not on file documented as of this encounter Procedures Procedure Name Priority Date/Time Associated Diagnosis Comments CT CHEST ABDOMEN PELVIS W CONTRAST (GENERIC) Routine 03/20/2018 3:51 PM EDT Metastatic urothelial carcinoma POCT CREATININE Routine 03/20/2018 3:27 PM EDT documented in this encounter Results * CT Chest Abdomen Pelvis w Contrast (Generic) (03/20/2018 3:51 PM EDT) Anatomical Region Laterality Modality Abdomen, Pelvis Computed Tomogra phy Impressions 03/20/2018 4:27 PM EDT 1. ??There is no evidence of recurrent or metastatic urothelial carcinoma. 2. ??Wall thickening of several loops of small bowel is again seen and has not progressed. Prior irradiation in this area may be the cause of this finding. 3. ??Compression fracture of L4 has occurred since the previous CT scan. Narrative 03/20/2018 4:27 PM EDT EXAMINATION: CT CHEST ABDOMEN PELVIS W CONTRAST (GENERIC) CLINICAL HISTORY: Restaging of metastatic urothelial carcinoma TECHNIQUE: Helical CT of the chest, abdomen, and pelvis was performed following intravenous administration of 120 ml of Omnipaque 350 Oral contrast was administered. COMPARISON: October 31, 2017 FINDINGS: Chest: Lungs and large airways: There are increased interstitial markings at the peripheries of the lungs unchanged from the prior examination and consistent with chronic interstitial lung disease. No pulmonary nodules are identified. Pleura: No effusion. Heart/vasculature: Heart is at the upper limits of normal in size. There is no pericardial effusion. Calcification of coronary vasculature and of the aorta are again seen. Mediastinum and azra: No lymphadenopathy. Chest wall: Previous bilateral mastectomies. Previously described scarring in the right upper chest wall is unchanged. Abdomen/pelvis: Liver: Normal size and attenuation without lesions. Bile ducts: Nondilated. Gallbladder: No calcified gallstones. Normal caliber wall. Pancreas: Normal attenuation without ductal dilatation. Spleen: Normal. Adrenals: Normal. Kidneys: The left kidney enhances normally. There is no collecting system dilatation. A small focus of decreased attenuation in the lower pole is most typical of a cyst and appears unchanged. There has been a previous right sided nephro-ureterectomy. No abnormal soft tissue is identified in the right renal fossa. Urinary Bladder: Normal. Vasculature: No aneurysm. Lymph Nodes: ??No enlarged lymph nodes. Bowel: Contrast material has reached the descending colon. The previously described thickening of the elmons of several loops of small bowel is again seen and appears unchanged. Peritoneum and mesentery: Ill-defined mild edema surrounding the right external iliac artery is not clearly seen today. Abdominal wall: There is an anterior abdominal wall hernia containing loops of both large and small bowel. Surgical clips are again seen in the anterior abdominal wall. There is no evidence of bowel obstruction or inflammation within the hernia. Reproductive organs: Normal. Osseous structures: A compression fracture of the superior endplate of L4 has occurred since the previous CT scan. Procedure Note Donny Clay MD - 03/20/2018 EXAMINATION: CT CHEST ABDOMEN PELVIS W CONTRAST (GENERIC) CLINICAL HISTORY: Restaging of metastatic urothelial carcinoma TECHNIQUE: Helical CT of the chest, abdomen, and pelvis was performedfollowing intravenous administration of 120 ml of Omnipaque 350 Oral contrast was administered. COMPARISON: October 31, 2017 FINDINGS: Chest: Lungs and large airways: There are increased interstitial markings atthe peripheries of the lungs unchanged from the prior examination andconsistent with chronic interstitial lung disease. No pulmonary nodules areidentified. Pleura: No effusion. Heart/vasculature: Heart is at the upper limits of normal in size. Thereis no pericardial effusion. Calcification of coronary vasculature and of theaorta are again seen. Mediastinum and azra: No lymphadenopathy. Chest wall: Previous bilateral mastectomies. Previously described scarringin the right upper chest wall is unchanged. Abdomen/pelvis: Liver: Normal size and attenuation without lesions. Bile ducts: Nondilated. Gallbladder: No calcified gallstones. Normal caliber wall. Pancreas: Normal attenuation without ductal dilatation. Spleen: Normal. Adrenals: Normal. Kidneys: The left kidney enhances normally. There is no collectingsystem dilatation. A small focus of decreased attenuation in the lower pole ismost typical of a cyst and appears unchanged. There has been a previous rightsided nephro-ureterectomy. No abnormal soft tissue is identified in the rightrenal fossa. Urinary Bladder: Normal. Vasculature: No aneurysm. Lymph Nodes: No enlarged lymph nodes. Bowel: Contrast material has reached the descending colon. Thepreviously described thickening of the lemons of several loops of small bowel is againseen and appears unchanged. Peritoneum and mesentery: Ill-defined mild edema surrounding the rightexternal iliac artery is not clearly seen today. Abdominal wall: There is an anterior abdominal wall hernia containingloops of both large and small bowel. Surgical clips are again seen in theanterior abdominal wall. There is no evidence of bowel obstruction or inflammationwithin the hernia. Reproductive organs: Normal. Osseous structures: A compression fracture of the superior endplate of L4has occurred since the previous CT scan. IMPRESSION 1. There is no evidence of recurrent or metastatic urothelialcarcinoma. 2. Wall thickening of several loops of small bowel is again seen and hasnot progressed. Prior irradiation in this area may be the cause of thisfinding. 3. Compression fracture of L4 has occurred since the previous CT scan. Danny Gordon MD IMG CT ORDERABLES * (ABNORMAL) POCT Creatinine (03/20/2018 3:27 PM EDT) Creatinine, POC 1.5(A) 0.7 - 1.2 mg/dL POC Estimated GFR 34(A) 60 03/20/2018 3:27 PM EDT Danny Gordon MD POINT OF CARE TEST O RDERABLES documented in this encounter Visit Diagnoses Diagnosis Metastatic urothelial carcinoma Secondary malignant neoplasm of other urinary organs documented in this encounter Administered Medications Inactive Administered Medications - up to 3 most recent administrations Medication Order MAR Action Action Date Dose Rate Site iohexol (OMNIPAQUE) 350 mg/mL solution 0-200 mL 0-200 mL, Intravenous, ONCE PRN, 1 dose, Starting on Mon03/20/18 at 1550, Until Mon03/20/18 at 1551, Per Protocol, Warning Vesicant/Irritant Medication , Radiology Contrast, Routine Given 03/20/2018 3:51 PM EDT 120 mLs iohexol (OMNIPAQUE) 350 mg/mL solution 50 mL 50 mL, Oral, ONCE PRN, 1 dose, Starting on Mon03/20/18 at 1550, Until Mon03/20/18 at 1551, Per Protocol, Warning Vesicant/Irritant Medication , Routine Given 03/20/2018 3:51 PM EDT 50 mLs sodium chloride 0.9% infusion 390 mL/hr, Intravenous, CONTINUOUS, Starting on Mon03/20/18 at 1415, Until Mon03/20/18 at 1514, Now, pre-imaging, Angio/IR (Day of Procedure) New Bag 03/20/2018 2:00 PM EDT 390 mL/hr 390 mL/hr documented in this encounter Care Teams Air Export Operations Agent Relationship Specialty Start Date End Date Dulce Hidalgo MD [address] [place] [address] PCP - General Family Medicine 09/30/16 documented as of this encounter
--- OUTSIDE RECORDS SUMMARY | 2024-01-11 13:19 | XMS_ITS | Encounter Summary ---
Author Organization [facility] [place] [address] Care Team Providers Care Hose Tester Name Role Phone Dulce Hidalgo MD Primary Care Provider [phone] Reason for Visit * Reason Comments Follow-up Encounter Details Date Type Department Care Team (Late st Contact Info) Description 01/15/2018 2:20 PM EDT [place] [phone] Ariel Do MD [facility] [place] [address] Malignant neoplasm of ureter, unspecified laterality Social History Tobacco Use Types Packs/Day [...] Sign Reading Time Taken Comments Blood Pressure 127/45 01/15/2018 2:36 PM EDT Pulse 63 01/15/2018 2:36 PM EDT Temperature 36.4 ??C (97.6 ??F) 01/15/2018 2:36 PM ED T Respiratory Rate - - Oxygen Saturation 99% 01/15/2018 2:36 PM EDT Inhaled Oxygen Concentration - - Weight - - Height - - Body Mass Index - - documented in this encounter Patient Instructions * Patient Instructions* Lauren Webster RN - 01/15/2018 2:20 PM EDT Instructions following Cystoscopy Activity: [...] to void please call our office at [phone] before 5PM or [phone] after hours. Please call if: * you have copious blood in your urine * fevers greater than 101.3 F * you are unable to void The number for questions is [phone] before 5 PM weekdays and [phone] after 5 PM and weekends. Follow-up: Cystoscopy with Dr. Do in about 6 months. documented in this encounter Progress Notes * Ariel Do MD - 01/15/2018 2:20 PM EDT Patient Name: Isaura Aguiar Date of Service: 01/15/2018 Primary Care Provider: Dulce Hidalgo MD Reason [...] No clear recurrence. Incisional hernia, wide mouthed, She has no urinary symptoms. . No hematuria, fevers, chills, nausea, vomiting. Bowel movements are back to normal, about once or twice per day. She is walking around well. She has her appetite back and is eating well. Patient Active Problem List Diagnosis ??? 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 The patient has been for 55years with 3 children. The patient drinks no ETOH Tobacco: Never Physical Exam: Vital Signs are reviewed. The patient appears healthy and in no distress. Abdomen benign incision are well healed. She has a new widemouthed easily reducible hernia in the epigastrium at the site of removal of her renal mass. Cystoscopy 03/2017: Absent RUO, no recurrence. Some residual suture fragments, dissolving. 09/2017: Absent RUO. No tumors 01/2018: Absent RUO. No tumors Lab values are reviewed 10/2017 1.28, eGFR 41 Imaging 12/[address] No metastatic disease. 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 Plan: Discussed hernia. It is not bothering her substantially. It is wide mouthed and reducible. We will have her see Gen surgery for consideration of laparoscopic repair. Cancer f/u with Dr Mueller 6 months with a cystoscopy Ariel Do documented in this encounter Procedure Notes * Ariel Do MD - 01/15/2018 2:20 PM EDTAssociated Order(s): CYSTOSCOPY Pre-Procedure Diagnose(s): Malignant neoplasm of ureter, unspecified laterality Procedure: Flexible Cystoscopy Surgeon: Ariel Do Preoperative [...] Priority Date/Time Associated Diagnosis Comments CYSTOSCOPY Routine 01/15/2018 4:11 PM EDT Malignant neoplasm of ureter, unspecified laterality documented in this encounter Results * Cystoscopy (01/15/2018 4:11 PM EDT) Narrative Ariel Do MD - 01/15/2018 4:11 PM EDT Ariel Do MD ? 01/15/2018 ??4:11 PM Procedure: Flexible Cystoscopy Surgeon: Ariel Do [...] encounter Visit Diagnoses Diagnosis Malignant neoplasm of ureter, unspecified laterality documented in this encounter Care Teams Hose Tester Relationship Specialty Start Date End Date Dulce Hidalgo MD [address] [place] [address] PCP - General Family Medicine 09/30/16 documented as of this encounter
--- OUTSIDE RECORDS SUMMARY | 2024-01-11 13:19 | XMS_ITS | Encounter Summary ---
[place] [address] Care Team Providers Care Cloth Shrinker Name Role Phone Dulce Hidalgo MD Primary Care Provider [phone] Encounter Details Date Type Department Care Team (Late st Contact Info) Description 07/06/2018 Orders Only [place] [phone] Agatha Arora Social History Tobacco Use Types Packs/Day Years [...] on filedocumented in this encounter Care Teams Cloth Shrinker Relationship Specialty Start Date End Date Dulce Hidalgo MD [facility] [address] [facility] [address] [place] [address] PCP - General Family Medicine 09/30/16 documented as of this encounter
--- OUTSIDE RECORDS SUMMARY | 2024-01-11 13:19 | XMS_ITS | Encounter Summary ---
Author Organization [facility] [place] [address] Care Team Providers Care Artificial Flower Maker Name Role Phone Dulce Hidalgo MD Primary Care Provider [phone] Encounter Details Date Type Department Care Team (Late st Contact Info) Description 03/20/2018 Orders Only Hematology/Oncology at [address] [phone] Danny Gordon MD [facility] DR HEMATOLOGY [place] [address] Social History Tobacco Use Types Packs/Day Years [...] on filedocumented in this encounter Care Teams Artificial Flower Maker Relationship Specialty Start Date End Date Dulce Hidalgo MD [address] [place] [address] PCP - General Family Medicine 09/30/16 documented as of this encounter
--- OUTSIDE RECORDS SUMMARY | 2024-01-11 13:20 | XMS_ITS | Encounter Summary ---
[place] [address] Care Team Providers Care Systems Planner Name Role Phone Dulce Hidalgo MD Primary Care Provider [phone] Reason for Referral * Diagnostic Test (Routine) - Closed Specialty Diagnoses / Procedures Referred By Contac t Referred To Contact Radiology Diagnoses Metastatic urothelial carcinoma Procedures PET CT Standard Skull Base to Mid-Thigh Danny Gordon MD [facility] [place] [address] [place] [address] Referral ID Status Reason Start Date Expiration Date V isits Requested Visits Authorized [id number] Closed Specialty Service Requested 11/14/2017 11/14/2018 1 1 Reason for Visit * Diagnostic Test (Routine) - Closed Specialty Diagnoses / Procedures Referred By Contac t Referred To Contact Radiology Diagnoses Metastatic urothelial carcinoma Procedures PET CT Standard Skull Base to Mid-Thigh Danny Gordon MD [facility] [place] [address] [place] [address] Referral ID Status Reason Start Date Expiration Date V isits Requested Visits Authorized [id number] Closed Specialty Service Requested 11/14/2017 11/14/2018 1 1 Encounter Details Date Type Department Care Team (Latest Contact Info) Description 12/01/2017 11:16 AM EDT - 12/01/2017 11:59 PM EDT Hospital Encounter [place] [address] Danny Gordon MD [facility] [place] [address] Metastatic urothelial carcinoma Discharge Disposition: [...] Procedure Name Priority Date/Time Associated Diagnosis Comments NM PET CT SKULL BASE TO MID-THIGH ([facility]) Routine 12/01/2017 1:29 PM EDT Metastatic urothelial carcinoma POCT GLUCOSE Routine 12/01/2017 11:31 AM EDT documented in this encounter Results * PET CT Standard Skull Base to Mid-Thigh (12/01/2017 1:29 PM EDT) Anatomical Region Laterality Modality Positron Emissio n Tomography (PET) Impressions 12/01/2017 2:34 PM EDT No recurrent or metastatic disease detected. Thank you for referring this patient to [facility]. Narrative 12/01/2017 2:34 PM EDT EXAMINATION: PET CT STANDARD SKULL BASE TO MID-THIGH CLINICAL HISTORY: Restaging of metastatic urothelial carcinoma TECHNIQUE: Following IV injection of 66-oahgrv-6-deoxyglucose (FDG) a standard uptake of approximately 60 minutes, a noncontrast CT scan followed by a PET scan were acquired from the base of the skull to mid thighs. The noncontrast CT was used for anatomic localization and photon attenuation correction of the PET scan. Blood glucose level: 94 (mg/dL) FDG dose: 18.2 mCi COMPARISON: 04/07/2017 FINDINGS: HEAD/NECK: No abnormal activity is present. ? CHEST: No abnormal activity is present. Coronary artery calcification is present. The previously seen central venous catheter has been removed. The heart is enlarged. Groundglass opacities in the lungs are likely due to atelectasis. There is a small hiatal hernia. Bilateral mastectomies have been performed. ABDOMEN/PELVIS: No abnormal activity is present. There is been a prior right nephrectomy and hysterectomy. A bowel containing anterior abdominal wall hernia is seen without obstruction. SKELETON/EXTREMITIES: There are no areas of abnormal increased FDG activity. Decreased activity in the lumbar spine is due to prior irradiation. ? Procedure Note Donny Clay MD - 12/01/2017 EXAMINATION: PET CT STANDARD SKULL BASE TO MID-THIGH CLINICAL HISTORY: Restaging of metastatic urothelial carcinoma TECHNIQUE: Following IV injection of 89-njxiwa-7-deoxyglucose (FDG) astandard uptake of approximately 60 minutes, a noncontrast CT scan followed by aPET scan were acquired from the base of the skull to mid thighs. The noncontrast CTwas used for anatomic localization and photon attenuation correction of thePET scan. Blood glucose level: 94 (mg/dL) FDG dose: 18.2 mCi COMPARISON: 04/07/2017 FINDINGS: HEAD/NECK: No abnormal activity is present. CHEST: No abnormal activity is present. Coronary artery calcification is present. The previously seen centralvenous catheter has been removed. The heart is enlarged. Groundglass opacities inthe lungs are likely due to atelectasis. There is a small hiatal hernia.Bilateral mastectomies have been performed. ABDOMEN/PELVIS: No abnormal activity is present. There is been a prior right nephrectomy and hysterectomy. A bowelcontaining anterior abdominal wall hernia is seen without obstruction. SKELETON/EXTREMITIES: There are no areas of abnormal increased FDG activity. Decreased activityin the lumbar spine is due to prior irradiation. IMPRESSION No recurrent or metastatic disease detected. Thank you for referring this patient to [facility]. Danny Gordon MD IMG PET ORDERABLES * POCT Glucose (12/01/2017 11:31 AM EDT) POC Glucose 94 65 - 199 mg/dL [facility] Comment: Supplemental ranges: <140 mg/dL before meals <180 mg/dL all other times of the day Blood specimen (specimen) 12/01/2017 11:31 AM EDT 12/01/2017 11:31 AM EDT Danny Gordon MD POINT [place] [address] documented in this encounter Visit Diagnoses Diagnosis Metastatic urothelial carcinoma Secondary malignant neoplasm of other urinary organs documented in this encounter Care Teams Systems Planner Relationship Specialty Start Date End Date Dulce Hidalgo MD [address] [facility] [address] [place] [address] PCP - General Family Medicine 09/30/16 documented as of this encounter
--- OUTSIDE RECORDS SUMMARY | 2024-01-11 13:20 | XMS_ITS | Encounter Summary ---
Author Organization [facility] [place] [address] Care Team Providers Care Sane Nurse Name Role Phone Dulce Hidalgo MD Primary Care Provider [phone] Encounter Details Date Type Department Care Team (Late st Contact Info) Description 05/23/2017 3:30 PM EST Office Visit Hematology/Oncology at [address] [address] Danny Gordon MD [facility] [address] [place] [address] Metastatic urothelial carcinoma (Primary Dx); Skin rash; Anemia of chronic renal failure, stage 2 (mild); Diarrhea, unspecified type Social History Tobacco Use Types Packs/Day Years [...] Sign Reading Time Taken Comments Blood Pressure 145/68 05/23/2017 3:19 PM EST Pulse 65 05/23/2017 3:19 PM EST Temperature 36.8 ??C (98.2 ??F) 05/23/2017 3:19 PM ES T Respiratory Rate 16 05/23/2017 3:19 PM EST Oxygen Saturation 95% 05/23/2017 3:19 PM EST Inhaled Oxygen Concentration - - Weight 135.2 kg (298 lb) 05/23/2017 3:19 PM EST Height 156 cm (5' 1.42) 05/23/2017 3:19 PM EST Body Mass Index 55.54 05/23/2017 3:19 PM EST documented in this encounter Progress Notes * Danny Gordon MD - 05/23/2017 3:30 PM EST Diagnosis: Metastatic urothelial carcinoma HPI:Isaura Aguiar is 76 y.o.F referred to us by Yara Llamas for a consultation on new diagnosis of metastatic urothelial carcinoma. She initially presented in July right flank pain which led to CT scan ordered by Dr. Hidlago. He scan revealed right hydronephrosis and distal ureter mass. She was seen by our urologist Dr. Do. Isaura underwent right robotic-assisted laparoscopic right nephroureterectomy on 11/02/2016. 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 Postop course was uneventful. She is here for discussion of adjuvant chemotherapy. Interval history: Mrs. Aguiar is in clinic for follow-up appointment. Mrs. Aguiar is undergoing concomitant XRT and chemotherapy with capecitabine. She had at least 3 episodes of diarrhea on last Monday. Isaura used Imodium with good diarrhea control. No bowel movements since Monday. Denies any fever, chills, nausea, vomiting or mouth sores. No other focal complaints. PMH: No interval changes since last visit Left leg DVT on Xarelto Rectal bleeding [...] drink alcohol, she used to work in [employer], retired 2002, she has 3 children. Family History: No Interval changes since last visit Brother had lung cancer, father from prostate cancer, her son and sister have BRCA2 mutation Allergies: Allergies Allergen Reactions ??? Glucosamine-Chondroitn Sulf.Na Nausea Only Intense cramping too ??? Iv 3000 [Transparent Dressings] Rash Erythema, blisters ??? Sulfa (Sulfonamide Antibiotics) Other (See Comments) liver damage Medications: Your Medications These changes are accurate as of: 05/23/17 3:45 PM. If you have any questions, ask your nurse or doctor. Notice Some of the medications listed here do not show instructions, such as how often to take the medication. Ask your doctor or nurse how to use these medications. Specifically ask about these and similar medications: - atenolol (TENORMIN) 50 mg tablet - simvastatin (ZOCOR) 10 mg tablet - ACETAMINOPHEN (TYLENOL ORAL) Continued medications, unchanged Dose Details aspirin 81 mg Tbec Take 81 mg by mouth daily. 81 mg Refills: 0 atenolol 50 mg Tab Commonly known as: TENORMIN ?nk?wn!?? Refills: 0 calcium-vitamin D3 600 mg(1,500mg) -400 unit Tab Take 1 tablet by mouth daily. Reported on 01/03/2017 1 tablet Refills: 0 CAPEcitabine chemo tablet Commonly known as: XELODA Take 1,800 mg by mouth 2 times daily for 30 days. On the days of radiation. Take with food. Call clinic before starting medication. The prescription should be filled with whatever strength the pharmacy has available to achieve the prescribed dose, preferably taking the smallest number of capsules/tablets prescribed. 1800 mg Quantity: 60 Doses of treatment to dispense Refills: 0 docusate sodium 100 mg Cap Commonly known as: COLACE Take 100 mg by mouth 2 times daily as needed. 100 mg Refills: 0 hydroCHLOROthiazide 25 mg Tab Commonly [...] needed Refills: 0 magnesium oxide 400 mg Tab Commonly known as: MAG-OX Take 1 [...] 10 mg Tab Commonly known as: ZOCOR ?nk?wn!?? Refills: 0 TYLENOL ORAL ?nk?wn!?? Refills: 0 Review of Systems: Constitutional: Negative for fever, chills, activity change, fatigue and unexpected weight change. HEENT: Negative for sore throat, mouth sores and trouble swallowing. Mild mouth soreness but does baking soda/salt water rinses which works well. Eyes: Negative. Respiratory: Negative for cough, shortness of breath and wheezing. Cardiovascular: Negative for chest pain, palpitations and leg swelling. Gastrointestinal: Diarrhea Genitourinary: negative for blood or frequency Musculoskeletal: [...] no murmur, rub or gallop Abdomen: Soft, non-tender Extremities: Extremities normal, atraumatic, no cyanosis or edema Skin: Skin color, texture, turgor normal, no rashes or lesions Lymph nodes: Cervical, supraclavicular, and axillary nodes normal Neurologic: Normal;senior construction estimator grossly intact Vitals BP 145/68 (Patient Position: Sitting) Pulse 65 Temp 36.8 ??C (98.2 ??F) (Oral) Resp 16 Ht 156 cm (5' 1.42) Wt (!) 135.2 kg (298 lb) SpO2 95% BMI 55.54 kg/m2 Weight Wt Readings from Last 3 Encounters: 05/23/17 (!) 135.2 kg (298 lb) 05/18/17 (!) 133.7 kg (294 lb 12.8 oz) 05/12/17 (!) 135.2 kg (298 lb) Labs: Sodium 130, potassium 4.2, BUN 17, creatinine 1.21, calcium 9.2, magnesium 1.6, AST 14, ALT 13, alkaline phosphatase 73, total protein 6.8, albumin 3.4, WBC 3.06, hemoglobin 10.8, platelet count 154, ANC 1.96 Pathology: 11/02/16 SYNOPTIC REPORT Specimen ?Procedure: ??Nephroureterectomy, [...] B10, B14 Normal Block(s): ?? B23 Labs: Sodium 138, potassium 4.3, BUN 25, creatinine 1.72, calcium 9.1, TB 0.4, AST 17, ALT 17, alkaline phosphatase 86, total protein 6.8, albumin 3.2, WBC 5.53, hemoglobin 10.2, platelet count 225, ANC 3.25. Imagin04/07/17 PET scan: IMPRESSION No evidence of recurrent [...] 3 cycles of cisplatin and gemcitabine -05/01 concurrent XRT and Xeloda 1800 mg BID Her measured creatinine clearance is 45 mL/m. Based on the data from phase II clinical trial we usesplit dose of cisplatin 35 mg/m2 gemcitabine 1000 mg per Frostproof squared days 1 and 8. Mrs. Aguiar completed 3 cycles of cisplatin and gemcitabine. Futher chemotherapy was discontinued due to kidney toxicity. Last PET scan was negative for metastatic disease. Mrs. Lucia is tolerating concurrent radiation and capecitabine reasonably well with episodes of diarrhea on Monday. Overall landaverde, she feels fine. Continue current regimen. We will see her back in 1week with blood work. Her last day of radiation will be on June 06 # Creatinine: 1.51 (lower) today # anemia: secondary to chemotherapy. Hg 10.7 Will monitor. # Rectal bleeding: follows with Dr. Hidalgo # Swelling and redness of right lower leg: right calf DVT, on Xarelto. Will follow with Dr. Hidalgo. Plan: 1.Continue Concurrent XRT And capecitibine. 2. Next visit in 1 week with CBC, CMP and magnesium The plan was discussed with the patient in details. All questions were answered to patient's satisfaction. documented in this encounter Plan of Treatment Not on file documented as of this encounter Procedures Procedure Name Priority Date/Time Associated Diagnosis Comments LAB SCAN 05/23/2017 12:00 AM EST documented in this encounter Results * SCAN DOC: LAB (05/23/2017 12:00 AM EST) Narrative 05/23/2017 12:00 AM EST Ordered by an unspecified provider. Scanning Provider MEDIA MGR SCAN EXT O RDR/RSLT documented in this encounter Visit Diagnoses Diagnosis Metastatic urothelial carcinoma- Primary Secondary malignant neoplasm of other urinary organs Skin rash Rash and other nonspecific skin eruption Anemia of chronic renal failure, stage 2 (mild) Diarrhea, unspecified type documented in this encounter Care Teams Sane Nurse Relationship Specialty Start Date End Date Dulce Hidalgo MD [address] [place] [address] PCP - General Family Medicine 09/30/16 documented as of this encounter
--- OUTSIDE RECORDS SUMMARY | 2024-01-11 13:20 | XMS_ITS | Encounter Summary ---
Author Organization [facility] [place] [address] Care Team Providers Care Electroplating Technician Name Role Phone Dulce Hidalgo MD Primary Care Provider [phone] Encounter Details Date Type Department Care Team (Late st Contact Info) Description 04/13/2017 Telephone Hematology [place] [phone] Danny Gordon MD [facility] DR HEMAT[place] [address] Social History Tobacco Use Types Packs/Day Years [...] encounter Miscellaneous Notes * Telephone Encounter - Danny Gordon MD - 04/13/2017 2:10 PM EDT I called Mrs. Aguiar and discussed benefits and risks of capecitabine chemotherapy concurrently with radiation. CONSENT FOR TREATMENT 1. I have informed the patient that she has been diagnosed with and that treatment with chemotherapy and other drugs to treat the cancer is recommended. Specifically, I have recommended the followingtherapy: capecitabne 1500 mg/2/day BID concurrently with radiation for total of 5 weeks. 2. I have informed the patient about the medical condition, the nature and purpose of the treatment, expected benefits, and related risks, including that this treatment may have significant side effects and that some of the side effects can be life threatening. The risks associated with the chemotherapy may include, but are not limited to, those listed below: * Nausea & vomiting * Hair loss * Anemia/Low red blood cell count * Tiredness * Allergic reactions * Infection with low white blood cell count * Increased risk of bleeding * Mouth sores * Constipation &/or diarrhea * Organ & Tissue Damage * Infertility * Another cancer &/or * Other: 3. The goal(s) of the chemotherapy has also been explained to the patient and includes: [ ] Cure my diagnosis [ ] Slow the growth or progression of my disease [ X ] Decrease the risk of recurrence of my disease [ ] Prepare my blood prior to transplant [ ] Improve my quality of life by controlling symptoms of my disease [ ] Other: 4. Other reasonable treatments or options, including the option to not pursue chemotherapy, were discussed. The patient understands that he/she may stop this treatment at any time. 5. I have informed the patient that the treatment may be harmful to an unborn child and that during chemotherapy treatment should be avoided. 6. The patient had the opportunity to ask questions about this treatment. All questions were addressed. The patient consents to the recommended treatment. All questions were answered to patient's satisfaction. Mrs. Cano is interested to proceed with capecitabine. Informed verbal consent was obtained by phone. The plan is to start concurrent treatment May 01, 2017 documented in this encounter Plan of Treatment Not on file documented as of this encounter Visit Diagnoses Not on filedocumented in this encounter Care Teams Electroplating Technician Relationship Specialty Start Date End Date Dulce Hidalgo MD [address] [place] [address] PCP - General Family Medicine 09/30/16 documented as of this encounter
--- OUTSIDE RECORDS SUMMARY | 2024-01-11 13:20 | XMS_ITS | Encounter Summary ---
[place] [address] Care Team Providers Care Direct Casting Operator Name Role Phone Dulce Hidalgo MD Primary Care Provider [phone] Reason for Visit * Diagnostic Test (Routine) - Closed Specialty Diagnoses / Procedures Referred By Christal lainez Referred To Contact Radiology Diagnoses Metastatic urothelial carcinoma Procedures PET CT Standard Skull Base to Mid-Thigh Danny Gordon MD [facility] HEMATOLOGY [place] [address] [place] [address] Referral ID Status Reason Start Date Expiration Date V isits Requested Visits Authorized [id number] Closed Specialty Service Requested 11/14/2017 11/14/2018 1 1 Encounter Details Date Type Department Care Team (Latest Contact Info) Description 12/01/2017 11:16 AM EDT - 12/01/2017 11:59 PM EDT Hospital Encounter [place] [address] Danny Gordon MD [facility] HEMATOLOGY [place] [address] Discharge Disposition: Home Social History Tobacco Use [...] 12/01/2017 1:29 PM EDT Metastatic urothelial carcinoma documented in this encounter Visit Diagnoses Not on filedocumented in this encounter Administered Medications Inactive Administered Medications - up to 3 most recent administrations Medication Order MAR Action Action Date Dose Rate Site fludeoxyglucose (F-18) FDG injection 18.2 mCi 18.2 mCi, Intravenous, ONCE PRN, 1 dose, Starting on Mon12/01/17 at 1330, Until Mon12/01/17 at 1330, Per Protocol, Routine Given 12/01/2017 1:30 PM EDT 18.2 mCi Left Arm documented in this encounter Care Teams Direct Casting Operator Relationship Specialty Start Date End Date Dulce Hidalgo MD [facility] [address] [place] [address] PCP - General Family Medicine 09/30/16 documented as of this encounter
--- OUTSIDE RECORDS SUMMARY | 2024-01-11 13:20 | XMS_ITS | Encounter Summary ---
[place] [address] Care Team Providers Care Operations Project Manager Name Role Phone Dulce Hidalgo MD Primary Care Provider Encounter Details Date Type Department Care Team (Late st Contact Info) Description 06/06/2017 Telephone Radiation Oncology at [address] [phone] Kathleen Aponte, RN Social History Tobacco Use Types Packs/Day [...] encounter Miscellaneous Notes * Telephone Encounter - Kathleen Aponte RN - 06/06/2017 4:16 PM EST Please see my nursing encounter note from today. Telephone call to Dr. Hidalgo office. Spoke with Mary. Updated regarding elevated BP reading today in clinic 132/114, pulse 80 as well as previous readings of 127/93, pulse 70 from 05/31/17 and 147/62, pulse 62 from 05/30/17. I let her know patient declined BP recheck today stating that she has an appointment tomorrow with Dr. Hidalgo. Mary reports that patient does not have a scheduled appointment tomorrow with PCP but Mary will update Dr. Hidalgo today and then follow up with patient. documented in this encounter Plan of Treatment Not on file documented as of this encounter Visit Diagnoses Not on filedocumented in this encounter Care Teams Operations Project Manager Relationship Specialty Start Date End Date Dulce Hidalgo MD [address] [place] [address] [facility] [address] [place] [address] PCP - General Family Medicine 09/30/16 documented as of this encounter
--- OUTSIDE RECORDS SUMMARY | 2024-01-11 13:20 | XMS_ITS | Encounter Summary ---
[place] [address] Care Team Providers Care Supervisory Civil Engineer Name Role Phone Dulce Hidalgo MD Primary Care Provider [phone] Encounter Details Date Type Department Care Team (Late st Contact Info) Description 05/25/2017 4:15 PM EST Office Visit Radiation Oncology at [address] [phone] German Greene MD [address] [place] [address] DR RADIATION ONCOLOGY [place], [place] [id number] Malignant neoplasm of right ureter Social History Tobacco Use Types Packs/Day Years [...] Sign Reading Time Taken Comments Blood Pressure 147/65 05/25/2017 3:00 PM EST Pulse 90 05/25/2017 3:00 PM EST Temperature 36.3 ??C (97.3 ??F) 05/25/2017 3:00 PM ES T Respiratory Rate 20 05/25/2017 3:00 PM EST Oxygen Saturation 96% 05/25/2017 3:00 PM EST Inhaled Oxygen Concentration - - Weight 134.6 kg (296 lb 12.8 oz) 05/25/2017 3:00 PM EST shoes on Height - - Body Mass Index 55.32 05/23/2017 3:19 PM EST documented in this encounter Progress Notes * German Greene MD - 05/25/2017 4:15 PM EST Images from the original note were not included. 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 Gordon) INTENT OF THERAPY: Definitive (Curative) RADIATION TREATMENT DETAILS: Initial Treatment Site Right Pelvis / ureter bed Prescribed Dose 45 Gy in 25 fractions Concurrent Boost Treatment Site Residual LN (unresectable) Prescribed Dose 55Gy in 25 fractions Current Dose: 32.4 / 39.6 Gy in 18 fractions [employer] from Current Plan (minimum 45 Gy isodose volume shown): INTERVAL HISTORY Subjective: General - Overall doing well. GI - Taking zofran as premed with no nausea. Alternating diarrhea / constipation. Some crampiness relieved by passing gas. Pain: Pain score today is 0/10. Nutrition: Weight at start of therapy was 298 lbs --> 294 --> 296 lbs today. Eating normal diet. Medications 05/25/17 2046 Medication Sig Taking? jpqi-dmj-yes-yyq-yxgv-tyou-pec (FIBER 6) 1,000 mg Tablet Take by mouth daily. Yes ondansetron (ZOFRAN-ODT) 8 mg Tablet, Rapid Dissolve You can take this 1 hour prior to radiation toprevent nausea, and 4 hours after radiation. You can otherwise take as needed every 8 hours. Yes omeprazole (PRILOSEC) 10 mg Capsule, Delayed Release(E.C.) Take 10 mg by mouth daily as needed. Daily as needed Yes lactobacillus rhamnosus, GG, (CULTURELLE) 10 billion cell Capsule Take 1 capsule by mouth daily. Yes magnesium oxide (MAG-OX) 400 mg Tablet Take 1 tablet by mouth daily. Yes docusate sodium (COLACE) 100 mg Capsule Take 100 mg by mouth 2 times daily as needed. Yes Calcium Carbonate-Vitamin D3 600 mg(1,500mg) -400 unit Tab Take 1 tablet by mouth daily. Reported on 01/03/2017 Yes hydrochlorothiazide (HYDRODIURIL) 25 mg tablet Take 25 mg by mouth daily. Yes aspirin 81 mg EC tablet Take 81 mg by mouth daily. Yes atenolol (TENORMIN) 50 mg tablet Yes simvastatin (ZOCOR) 10 mg tablet Yes LORazepam (ATIVAN) 0.5 mg Tablet take 1 tablet by mouth ONE HOUR PRIOR TO PET SCAN,MAY REPEAT AT TIME OF SCAN if needed CAPEcitabine (XELODA) chemo tablet Take 1,800 mg by mouth 2 times daily for 30 days. On the days ofradiation. Take with food. Call clinic before starting medication. The prescription should be filled with whatever strength the pharmacy has available to achieve the prescribed dose, preferably taking the smallest number of capsules/tablets prescribed. ACETAMINOPHEN (TYLENOL ORAL) Interval Imaging / Laboratory Studies: I have personally reviewed this patient's interval portal imaging to confirm accurate positioning and alignment which matches the patient's original approved treatment planning images. EXAM: BP 147/65 Pulse 90 Temp 36.3 ??C (97.3 ??F) Resp 20 Wt (!) 134.6 kg (296 lb 12.8 oz) Comment: shoes on SpO2 96% BMI 55.32 kg/m2 Constitutional: she appears well-developed and well-nourished. No distress. Performance Status: KPS Score ECOG Grade Definition 90-100 0 Fully active, able to carry on all pre-disease performance without restriction 70-80 1 Restricted in physically strenuous activity but ambulatory and able to carry out work of a light or sedentary nature, e.g., light house work, office work X 50-60 2 Ambulatory and capable of all selfcare but unable to carry out any work activities; up and about more than 50% of waking hours 30-40 3 Capable of only limited selfcare; confined to bed or chair more than 50% of waking hours 10-20 4 Completely disabled; cannot carry on any selfcare; totally confined to bed or chair IMPRESSION/PLAN Impression: Tolerating radiotherapy as anticipated. Plan: Continue treatment as planned. documented in this encounter Plan of Treatment Not on file documented as of this encounter Visit Diagnoses Diagnosis Malignant neoplasm of right ureter Malignant neoplasm of ureter documented in this encounter Care Teams Supervisory Civil Engineer Relationship Specialty Start Date End Date Dulce Hidalgo MD [address] [place] [address] PCP - General Family Medicine 09/30/16 documented as of this encounter
--- OUTSIDE RECORDS SUMMARY | 2024-01-11 13:20 | XMS_ITS | Encounter Summary ---
[place] [address] Care Team Providers Care Veterinary Parasitologist Name Role Phone Dulce Hidalgo MD Primary Care Provider [phone] Reason for Referral * Diagnostic Test (Routine) - Closed Specialty Diagnoses / Procedures Referred By Christal lainez Referred To Contact Radiology Diagnoses Metastatic urothelial carcinoma Procedures CT Chest Abdomen Pelvis w Contrast (Generic) Danny Gordon MD [facility] [address] [place] [address] [facility] [place] [address] Referral ID Status Reason Start Date Expiration Date V isits Requested Visits Authorized [id number] Closed Specialty Service Requested 08/15/2017 08/15/2018 1 1 Reason for Visit * Reason Comments Follow-up Encounter Details Date Type Department Care Team (Late st Contact Info) Description 08/15/2017 8:30 AM EST Office Visit Hematology/Oncology at [address] [phone] Danny Gordon MD [facility] [place] [address] Metastatic urothelial carcinoma (Primary Dx); Anemia of chronic renal failure, stage 2 (mild); Other acute pulmonary embolism without acute cor pulmonale Social History Tobacco Use Types Packs/Day Years [...] Sign Reading Time Taken Comments Blood Pressure 130/63 08/15/2017 8:31 AM EST Pulse 67 08/15/2017 8:31 AM EST Temperature 36.7 ??C (98.1 ??F) 08/15/2017 8:31 AM ES T Respiratory Rate 16 08/15/2017 8:31 AM EST Oxygen Saturation 100% 08/15/2017 8:31 AM EST Inhaled Oxygen Concentration - - Weight 131.1 kg (289 lb) 08/15/2017 8:31 AM EST Height 156 cm (5' 1.42) 08/15/2017 8:31 AM EST Body Mass Index 53.87 08/15/2017 8:31 AM EST documented in this encounter Progress Notes * Danny Gordon MD - 08/15/2017 8:30 AM EST Diagnosis: Metastatic urothelial carcinoma HPI:Isaura Aguiar [...] in clinic for follow-up appointment. Mrs. Aguiar completed concomitant XRT with capecitabine on June 06, 2017. Overall, she feels at her baseline. She denies any new pain. Denies any fever, chills, nausea, vomiting or mouth sores. No other focal complaints. PMH: Acute PE on CT scan on Xarelto [...] drink alcohol, she used to work in [employer], retired 2002, she has 3 children. Family [...] Your Medications These changes are accurate as of 08/15/17 8:48 AM. If you have any questions, ask your [...] daily as needed. 100 mg Refills: 0 FIBER 6 1,000 mg Tab Take by mouth daily. Generic drug: jziq-hku-isf-lfi-ogsy-lvdl-pec Refills: 0 hydroCHLOROthiazide 25 mg Tab Commonly [...] Refills: 0 TYLENOL ORAL ?nk?wn!?? Refills: 0 XARELTO 15 mg Tab Take 15 mg by mouth 2 times daily. Generic drug: rivaroxaban 15 mg Refills: 0 STOPPED Medications CAPEcitabine chemo tablet Commonly known as: XELODA Stopped by: Danny Gordon MD Review of Systems: Constitutional: Negative for fever, [...] Cervical, supraclavicular, and axillary nodes normal Neurologic: Normal;driver medic grossly intact Vitals BP 130/63 (Patient Position: Sitting) Pulse 67 Temp 36.7 ??C (98.1 ??F) (Oral) Resp 16 Ht 156 cm (5' 1.42) Wt 131.1 kg (289 lb) SpO2 100% BMI 53.87 kg/m2 Weight Wt Readings from Last 3 Encounters: 08/15/17 131.1 kg (289 lb) 06/29/17 129.6 kg (285 lb 12.8 oz) 05/31/17 (!) 133.5 kg (294 lb 6.4 oz) Pathology: 11/02/16 SYNOPTIC REPORT Specimen ?Procedure: ??Nephroureterectomy, [...] for ISAURA AGUIAR ( ) as of 08/15/2017 08:49 Ref. Range 08/09/2017 12:05 WBC Latest Ref Range: 4.0 - 9.5 x10(3)/mcL 6.1 RBC Latest Ref Range: 4.00 - 5.21 x10(6)/mcL 3.18 (L) Hemoglobin Latest Ref Range: 11.7 - 15.5 gm/dL 10.2 (L) Hematocrit Latest Ref Range: 35.7 - 45.8 % 31.2 (L) MCV Latest Ref Range: 82.6 - 94.4 fL 98.1 (H) MCH Latest Ref Range: 27.1 - 32.0 pg 32.1 (H) MCHC Latest Ref Range: 31.7 - 35.0 gm/dL 32.7 RDWSD Latest Ref Range: 37.0 - 46.0 fL 63.2 (H) RDWCV Latest Ref Range: 11.5 - 14.1 % 17.4 (H) Platelets Latest Ref Range: 145 - 357 x10(3)/mcL 176 MPV Latest Ref Range: 7.6 - 12.9 fL 10.2 nRBC % Auto Latest Units: % 0.0 nRBC Abs Auto Latest Ref Range: 0.000 - 0.000 x10(3)/mcL 0.000 Neutr Abs (ANC) Latest Ref Range: 1.70 - 6.10 x10(3)/mcL 3.66 Neutrophils % Latest Units: % 60.1 Immature Gran % Latest Units: % 0.70 Lymphocytes % Latest Units: % 29.1 Monocytes % Latest Units: % 8.1 Eosinophils % Latest Units: % 1.8 Basophils % Latest Units: % 0.2 [place] Gran Abs Latest Ref Range: 0.00 - 0.04 x10(3)/mcL 0.04 Lymphocytes Abs Latest Ref Range: 0.9 - 3.2 x10(3)/mcL 1.8 Monocyte Abs Latest Ref Range: 0.3 - 0.9 x10(3)/mcL 0.5 Eosinophils Abs Latest Ref Range: 0.0 - 0.4 x10(3)/mcL 0.1 Basophils Abs Latest Ref Range: 0.0 - 0.1 x10(3)/mcL 0.0 Sodium Latest Ref Range: 135 - 145 mmol/L 138 Potassium Latest Ref Range: 3.5 - 5.0 mmol/L 4.1 Chloride Latest Ref Range: 98 - 107 mmol/L 97 (L) CO2 Latest Ref Range: 22 - 31 mmol/L 28 Anion Gap Latest Ref Range: 5 - 15 mmol/L 13 BUN Latest Ref Range: 8 - 18 mg/dL 25 (H) Creatinine Latest Ref Range: 0.70 - 1.20 mg/dL 1.32 (H) Estimated GFR Latest Ref Range: >=60 39 (L) Glucose Lvl Latest Ref Range: 65 - 199 mg/dL 110 Calcium Latest Ref Range: 8.5 - 10.5 mg/dL 9.4 Total Protein Latest Ref Range: 6.1 - 8.0 gm/dL 7.1 Albumin Latest Ref Range: 3.2 - 5.2 gm/dL 4.1 Total Bilirubin Latest Ref Range: 0.2 - 1.3 mg/dL 0.4 Alk Phos Latest Ref Range: 40 - 104 unit/L 85 AST Latest Ref Range: 0 - 30 unit/L 19 ALT Latest Ref Range: 0 - 30 unit/L 13 Imagin08/09/17 CT scan: IMPRESSION 1. No evidence of [...] by concurrent XRT and Xeloda. CT scan is negative for metastatic disease. She is doing well with oncological standpoint. We will continue observation. We will see her back in 3 months with blood work and CT scan # anemia: Hg 10 Will monitor. # Rectal bleeding: follows with Dr. Hidalgo # New acute PE: h/o right calf DVT, on Xarelto. follows with Dr. Hidalgo. #Mediport: We will schedule removal Plan: 1. CBC, cMP, CT scan CAP in 3 months a week before appointment 2. Next visit in 3 months The plan was discussed with the patient in details. All questions were answered to patient's satisfaction. documented in this encounter Plan of Treatment Not on file documented as of this encounter Results * (ABNORMAL) CT Chest Abdomen Pelvis w Contrast (Generic) (10/31/2017 2:21 PM EDT) Anatomical Region Laterality Modality Abdomen, Pelvis Computed Tomogra phy Impressions 10/31/2017 4:31 PM EDT Status post right nephrectomy. New small area of ill-defined soft tissue encasing the right external iliac artery and abutting the right external iliac vein contiguous to the thickened pelvic loops of small bowel. Given proximity to resected armen metastases this remains concerning for malignancy, recommend close interval follow-up and consideration for PET scan. Unexpected finding. Preliminary report signed by: Howard Mccarthy at 10/31/2017 3:19 PM I have personally reviewed the image(s) and the residents interpretation and agree with the findings, Edwige Chung at 10/31/2017 4:31 PM Narrative 10/31/2017 4:31 PM EDT EXAMINATION: CT CHEST ABDOMEN PELVIS W CONTRAST (GENERIC) CLINICAL HISTORY: Restaging of metastatic urothelial carcinoma TECHNIQUE: CT of the chest, abdomen, and pelvis was performed following intravenous administration of 125 ml of Visipaque 320. Oral contrast was administered. COMPARISON: August 09, 2017 FINDINGS: Chest: Lungs and large airways: Central airways are clear. Symmetric bilateral peripheral interstitial thickening with an apical to basal gradient is stable. No pulmonary nodules. Pleura: No effusion. Heart/vasculature: Heart size is normal. No pericardial effusion. Normal caliber of the thoracic aorta with minimal calcified atherosclerosis at the aortic arch. Previously seen right upper lobe segmental pulmonary emboli are no longer visualized however this is not a dedicated examination. Lymph nodes/Mediastinum/Jenifer: No lymphadenopathy. Chest wall: Bilateral mastectomies. Scar at prior port side in the upper right chest wall (series 3, image 7) is stable. Abdomen/pelvis: Liver: Normal size and attenuation without lesions. Bile ducts: Nondilated. Gallbladder: No calcified gallstones. Normal caliber wall. Pancreas: Normal attenuation without ductal dilatation. Spleen: Normal. Adrenals: Normal. Kidneys: Right nephrectomy, no nodularity or enhancement in the renal surgical bed. Normal size and enhancement of the left kidney. No urinary collecting system dilatation. Vasculature: No aneurysm. Lymph Nodes: ??No enlarged lymph nodes. Bowel: Small hiatal hernia. Enteric contrast opacifies nondilated loops of small bowel. There is new mild wall thickening of loops of small bowel in the mid abdomen on series 3, image 139 and 151. This is adjacent and contiguous with the ill-defined density at the right iliac vasculature. Terminal ileum is normal. Contrast is seen in the right hemicolon. Moderate volume of stool throughout the right hemicolon. Peritoneum and mesentery: Ill-defined density encasing the proximal right external iliac artery and abutting the right external iliac vein, on series 3, image 148, contiguous to the aforementioned thickened loops of pelvic small bowel.. Abdominal wall: Midline ventral abdominal hernia with 2 adjacent fascial defects spanning approximately 10 cm in craniocaudal dimension. The herniated sac contains segment of transverse colon and several nondilated loops of small bowel. Enteric contrast is seen distal to these areas and there is no evidence of obstruction. No inflammatory changes. Surgical clips are seen possibly from prior herniorrhaphy. Urinary Bladder: Bladder is partially distended. No urolithiasis. Reproductive organs: Supracervical hysterectomy or postmenopausal uterine atrophy. Neither ovary is seen, no adnexal mass. Osseous structures: No suspicious lesions. Resulting Agency Comment Unexpected Finding Danny Gordon MD IMG CT ORDERABLES * (ABNORMAL) Comprehensive metabolic panel (non-fasting) (10/31/2017 11:25 AM EDT) Glucose Lvl 112 65 - 199 mg/dL [facility] Comment:Diabetes: >=200 mg/d L plus symptoms BUN 21(H) 8 - 18 mg/dL [facility] Creatinine 1.28(H) 0.70 - 1.20 mg/dL [facility] Sodium 138 135 - 145 mmol/L [facility] Potassium 4.3 3.5 - 5.0 mmol/L [facility] Comment: Please note: ??Patients with WBC >100,000 may have falsely elevated Potassium levels. ??For accurate Potassium quantification in these patients send serum separator tube (gold top) for subsequent determinations. ??Contact the Clinical Chemistry Laboratory if there are any questions. Chloride 99 98 - 107 mmol/L [facility] CO2 27 22 - 31 mmol/L [facility] Anion Gap 12 5 - 15 mmol/L [facility] Calcium 9.8 8.5 - 10.5 mg/dL [facility] Total Protein 6.8 6.1 - 8.0 gm/dL [facility] Albumin 3.8 3.2 - 5.2 gm/dL [facility] AST 15 0 - 30 unit/L [facility] ALT 13 0 - 30 unit/L [facility] Alk Phos 84 40 - 104 unit/L [facility] Total Bilirubin 0.2 0.2 - 1.3 mg/dL [facility] Estimated GFR 41(L) >=60 [facility] Comment: The reported eGFR should be multiplied by 1.2 for patients. The MDRD is not an appropriate measure of renal function for patients with body mass extremes or in patients with acute kidney failure. http://[employer]/DHnkdep http://[employer]/DHMCnkf Blood specimen (specimen) 10/31/2017 11:25 AM EDT 10/31/2017 11:51 AM EDT Narrative Resulting Agency Comment Spec In Lab Danny Gordon MD CHEMISTRY ORDERABLES [facility] [place] [phone] documented in this encounter Visit Diagnoses Diagnosis Metastatic urothelial carcinoma- Primary Secondary malignant neoplasm of other urinary organs Anemia of chronic renal failure, stage 2 (mild) Other acute pulmonary embolism without acute cor pulmonale Metastatic urothelial carcinoma Secondary malignant neoplasm of other urinary organs documented in this encounter Care Teams Veterinary Parasitologist Relationship Specialty Start Date End Date Dulce Hidalgo MD [address] [place] [address] PCP - General Family Medicine 09/30/16 documented as of this encounter
--- OUTSIDE RECORDS SUMMARY | 2024-01-11 13:20 | XMS_ITS | Encounter Summary ---
Author Organization [facility] [place] [address] Care Team Providers Care Telesales Agent Name Role Phone Dulce Hidalgo MD Primary Care Provider [phone] Encounter Details Date Type Department Care Team (Late st Contact Info) Description 12/22/2017 [place] [phone] Ariel Do MD [facility] [place] [address] Social History Tobacco Use Types Packs/Day Years [...] encounter Miscellaneous Notes * Telephone Encounter - Gertrude Franklin - 12/22/2017 11:31 AM EDT Patient called to have Dr. Do review her emergency room records from [facility] prior her appointmenton 01/15. I have requested this to be faxed as well as her CT images to be pushed from that visit (I will upload this in scanned docs once received). She would like to know if this changes her plan of care/ appointment once reviewed. documented in this encounter Plan of Treatment Not on file documented as of this encounter Visit Diagnoses Not on filedocumented in this encounter Care Teams Telesales Agent Relationship Specialty Start Date End Date Dulce Hidalgo MD [facility] [address] [facility] [address] [place] [address] PCP - General Family Medicine 09/30/16 documented as of this encounter
--- OUTSIDE RECORDS SUMMARY | 2024-01-11 13:20 | XMS_ITS | Encounter Summary ---
[place] [address] Care Team Providers Care Marine Steam Fitter Helper Name Role Phone Dulce Hidalgo MD Primary Care Provider [phone] Encounter Details Date Type Department Care Team (Latest Contact Info) Description 10/31/2017 10:58 AM EDT - 10/31/2017 11:30 AM EDT Hospital Encounter Hematology [place] [phone] Metastatic urothelial carcinoma Discharge Disposition: Home Social [...] Priority Date/Time Associated Diagnosis Comments HEMOGRAM Routine 10/31/2017 11:25 AM EDT Metastatic urothelial carcinoma DIFFERENTIAL, AUTOMATED Routine 10/31/2017 11:25 AM EDT Metastatic urothelial carcinoma CBC (WITH DIFF) Routine 10/31/2017 11:25 AM EDT Metastatic urothelial carcinoma COMPREHENSIVE METABOLIC PANEL (NON-FASTING) Routine 10/31/2017 11:25 AM EDT Metastatic urothelial carcinoma documented in this encounter Results * Differential, Automated (10/31/2017 11:25 AM EDT) Neutrophils % 57.3 % [facility] Neutr Abs (ANC) 2.65 1.70 - 6.10 x10(3)/[facility] Lymphocytes % 31.1 % [facility] Lymphocytes Abs 1.4 0.9 - 3.2 x10(3)/[facility] Monocytes % 8.6 % [facility] Monocyte Abs 0.4 0.3 - 0.9 x10(3)/[facility] Eosinophils % 2.4 % [facility] Eosinophils Abs 0.1 0.0 - 0.4 x10(3)/[facility] Basophils % 0.2 % [facility] Basophils Abs 0.0 0.0 - 0.1 x10(3)/[facility] Immature Gran % 0.40 % [facility] Comment: Immature granulocytes(IG's)percentage and absolute count will include metamyelocytes, myelocytes, and promyelocytes. Blood smears from CBCs yielding IG's will be scanned manually for concordance. If this scan disagrees with the automated IG or if promyelocytes are noted, a manual differential will be performed. [place] Gran Abs 0.02 0.00 - 0.04 x10(3)/[facility] Blood specimen (specimen) 10/31/2017 11:25 AM EDT 10/31/2017 11:51 AM EDT Narrative Resulting Agency Comment Spec In Lab Danny Gordon MD HEMATOLOGY ORDERABLE S [facility] [place] [address] * (ABNORMAL) Hemogram (10/31/2017 11:25 AM EDT) WBC 4.6 4.0 - 9.5 x10(3)/[facility] RBC 3.69(L) 4.00 - 5.21 x10(6)/[facility] Hemoglobin 11.1(L) 11.7 - 15.5 gm/dL [facility] Hematocrit 34.0(L) 35.7 - 45.8 % [facility] MCV 92.1 82.6 - 94.4 fL [facility] MCH 30.1 27.1 - 32.0 pg [facility] MCHC 32.6 31.7 - 35.0 gm/dL [facility] Platelets 187 145 - 357 x10(3)/[facility] RDWSD 47.8(H) 37.0 - 46.0 fL [facility] RDWCV 14.1 11.5 - 14.1 % [facility] MPV 10.2 7.6 - 12.9 fL [facility] nRBC % Auto 0.0 % [facility] nRBC Abs Auto 0.000 0.000 - 0.000 x10(3)/mcL [facility] Blood specimen (specimen) 10/31/2017 11:25 AM EDT 10/31/2017 11:51 AM EDT Narrative Resulting Agency Comment Spec In Lab Danny Gordon MD HEMATOLOGY ORDERABLE S [facility] [place] [address] * (ABNORMAL) Comprehensive metabolic panel (non-fasting) (10/31/2017 11:25 AM EDT) Glucose Lvl 112 65 - 199 mg/dL [facility] Comment:Diabetes: >=200 mg/d L plus symptoms BUN 21(H) 8 - 18 mg/dL [facility] Creatinine 1.28(H) 0.70 - 1.20 mg/dL [facility] Sodium 138 135 - 145 mmol/L [facility] Potassium 4.3 3.5 - 5.0 mmol/L [facility] Comment: Please note: ??Patients with WBC >100,000 may have falsely elevated Potassium levels. ??For accurate Potassium quantification in these patients send serum separator tube (gold top) for subsequent determinations. ??Contact the Clinical Chemistry Laboratory if there are any questions. Chloride 99 98 - 107 mmol/L [facility] CO2 27 22 - 31 mmol/L [facility] Anion Gap 12 5 - 15 mmol/L [facility] Calcium 9.8 8.5 - 10.5 mg/dL [facility] Total Protein 6.8 6.1 - 8.0 gm/dL [facility] Albumin 3.8 3.2 - 5.2 gm/dL [facility] AST 15 0 - 30 unit/L [facility] ALT 13 0 - 30 unit/L [facility] Alk Phos 84 40 - 104 unit/L [facility] Total Bilirubin 0.2 0.2 - 1.3 mg/dL [facility] Estimated GFR 41(L) >=60 [facility] Comment: The reported eGFR should be multiplied by 1.2 for patients. The MDRD is not an appropriate measure of renal function for patients with body mass extremes or in patients with acute kidney failure. http://[employer]/DHnkdep http://[employer]/DHMCnkf Blood specimen (specimen) 10/31/2017 11:25 AM EDT 10/31/2017 11:51 AM EDT Narrative Resulting Agency Comment Spec In Lab Danny Gordon MD CHEMISTRY ORDERABLES [facility] [place] [address] documented in this encounter Visit Diagnoses Diagnosis Metastatic urothelial carcinoma Secondary malignant neoplasm of other urinary organs documented in this encounter Care Teams Marine Steam Fitter Helper Relationship Specialty Start Date End Date Dulce Hidalgo MD [address] [place] [address] PCP - General Family Medicine 09/30/16 documented as of this encounter
--- OUTSIDE RECORDS SUMMARY | 2024-01-11 13:20 | XMS_ITS | Encounter Summary ---
[place] [address] Care Team Providers Care Public Works Commissioner Name Role Phone Dulce Hidalgo MD Primary Care Provider [phone] Encounter Details Date Type Department Care Team (Late st Contact Info) Description 06/20/2017 Telephone Hematology/Oncology at [address] [phone] Zachary Garcia Social History Tobacco Use Types Packs/Day Years [...] encounter Miscellaneous Notes * Telephone Encounter - Zachary Garcia - 06/20/2017 3:56 PM EST Left a msg for Isaura asking her to call to answer CT safety questions. documented in this encounter Plan of Treatment Not on file documented as of this encounter Visit Diagnoses Not on filedocumented in this encounter Care Teams Public Works Commissioner Relationship Specialty Start Date End Date Dulce Hidalgo MD [facility] [address] [place] [address] PCP - General Family Medicine 09/30/16 documented as of this encounter
--- OUTSIDE RECORDS SUMMARY | 2024-01-11 13:20 | XMS_ITS | Encounter Summary ---
[place] [address] Care Team Providers Care Planner Name Role Phone Dulce Hidalgo MD Primary Care Provider [phone] Encounter Details Date Type Department Care Team (Late st Contact Info) Description 05/30/2017 Telephone Hematology/Oncology at [address] [phone] Zachary Garcia Social History Tobacco [...] * Telephone Encounter - Zachary Garcia - 05/30/2017 12:58 PM EST Called pt and informed her that we have her mediport removal scheduled for 06/14 arrival at 11. Pt agreed. documented in this encounter Plan of Treatment Not on file documented as of this encounter Visit Diagnoses Not on filedocumented in this encounter Care Teams Planner Relationship Specialty Start Date End Date Dulce Hidalgo MD [address] [place] [address] PCP - General Family Medicine 09/30/16 documented as of this encounter
--- OUTSIDE RECORDS SUMMARY | 2024-01-11 13:20 | XMS_ITS | Encounter Summary ---
[place] [address] Care Team Providers Care Special Delivery Mail Carrier Name Role Phone Dulce Hidalgo MD Primary Care Provider [phone] Reason for Visit * Reason Onset Date Comments Chemotherapy 06/13/2017 Capcitibine, now has open, split fingers Encounter Details Date Type Department Care Team (Late st Contact Info) Description 06/13/2017 Telephone Hematology Oncology at [address] [phone] Neeru Reynoso RN Chemotherapy (Capcitibine, now has open, split fingers) Social History Tobacco Use Types Packs/Day Years [...] encounter Miscellaneous Notes * Telephone Encounter - Neeru Reynoso RN - 06/13/2017 10:02 AM EST Patient called, states she finished her Capcitibine but then about 4 days later she developed cracks and splitting on her fingers. She wanted us to know as she remembers being questioned about this side effect. She is putting CeraVe unscented on her hands frequently. She will let us know if she hasany worsening of skin. She states her feet are fine but will have her check them tonite. Patient is aware to call with any further skin breakdown and will call with any warmth or redness at site of skin breakdown. Dr. Gordon notified via this note. documented in this encounter Plan of Treatment Not on file documented as of this encounter Visit Diagnoses Not on filedocumented in this encounter Care Teams Special Delivery Mail Carrier Relationship Specialty Start Date End Date Dulce Hidalgo MD [address] [place] [address] PCP - General Family Medicine 09/30/16 documented as of this encounter
--- OUTSIDE RECORDS SUMMARY | 2024-01-11 13:20 | XMS_ITS | Encounter Summary ---
[place] [address] Care Team Providers Care City Carrier Name Role Phone Dulce Hidalgo MD Primary Care Provider [phone] Encounter Details Date Type Department Care Team (Late st Contact Info) Description 06/29/2017 12:30 PM EST Office Visit Radiation Oncology at [address] [phone] German Greene MD [address] [place] [address] DR RADIATION ONCOLOGY [place], [place] [id number] Malignant neoplasm of ureter, unspecified laterality Social [...] Sign Reading Time Taken Comments Blood Pressure 144/82 06/29/2017 12:48 PM EST left wrist Pulse 86 06/29/2017 12:48 PM EST Temperature 36.8 ??C (98.2 ??F) 06/29/2017 1 2:48 PM EST Respiratory Rate 16 06/29/2017 12:4 8 PM EST Oxygen Saturation 98% 06/29/2017 12: 48 PM EST Inhaled Oxygen Concentration - - Weight 129.6 kg (285 lb 12. 8 oz) 06/29/2017 12:48 PM EST Height - - Body Mass Index 53.27 05/30/2017 10:49 AM EST documented in this encounter Progress Notes * German Greene MD - 06/29/2017 12:30 PM EST Images from the original note were not included. RADIATION ONCOLOGY - End of Treatment Visit Note 06/29/17 German Greene MD, MS Radiation Oncology [facility] [phone] (paging scrubber operator) PATIENT IDENTIFICATION NAME: Isaura Aguiar DATE [...] (unresectable) Prescribed Dose 55Gy in 25 fractions Completion Date 06/06/17 Kraft Digester Operator Pascual from Current Plan (minimum 45 Gy isodose volume shown): INTERVAL HISTORY Subjective: General - Overall feels well. GI - Varied constipation / diarrhea. Controlled w/ Imodium. Intermittent, nausea is relived by zofran. - No urinary complaints. Recent u/a ordered by her PCP. Pain: Pain score today is 0/10. Nutrition: Weight at start of therapy was 298 lbs --> 285 lbs today. Eating normal diet. Medications 06/29/17 1301 Medication Sig Taking? LORazepam (ATIVAN) 0.5 mg Tablet take 1 tablet by mouth ONE HOUR PRIOR TO PET SCAN,MAY REPEAT AT TIME OF SCAN if needed Yes ondansetron (ZOFRAN-ODT) 8 mg Tablet, Rapid [...] Yes simvastatin (ZOCOR) 10 mg tablet Yes ACETAMINOPHEN (TYLENOL ORAL) Yes PROCHLORPERAZINE MALEATE (COMPAZINE ORAL) Take by mouth. tcht-rdk-nlu-qvx-sdqf-brmu-pec (FIBER 6) 1,000 mg Tablet Take by mouth daily. CAPEcitabine (XELODA) chemo tablet Take 1,800 mg by mouth 2 times daily for 30 days. On the days ofradiation. Take with food. Call clinic before starting medication. The prescription should be filled with whatever strength the pharmacy has available to achieve the prescribed dose, preferably taking the smallest number of capsules/tablets prescribed. Interval Imaging / Laboratory Studies: None EXAM: Temp 36.8 ??C (98.2 ??F) (Oral) Resp 16 Wt 129.6 kg (285 lb 12.8 oz) SpO2 98% BMI 53.27 kg/m2 Constitutional: she appears well-developed and well-nourished. [...] confined to bed or chair IMPRESSION/PLAN Impression: Recovered well from therapy Plan: She will be seeing Dr. Gordon in August with CT prior. F/u with rad/onc on an as-needed basis. This patient was seen within 90 days of treatment, so this encounter constitutes a no-charge globalvisit. documented in this encounter Plan of Treatment Not on file documented as of this encounter Visit Diagnoses Diagnosis Malignant neoplasm of ureter, unspecified laterality documented in this encounter Care Teams City Carrier Relationship Specialty Start Date End Date Dulce Hidalgo MD [facility] [address] [place] [address] PCP - General Family Medicine 09/30/16 documented as of this encounter
--- OUTSIDE RECORDS SUMMARY | 2024-01-11 13:20 | XMS_ITS | Encounter Summary ---
[place] [address] Care Team Providers Care Press Bucker Name Role Phone Dulce Hidalgo MD Primary Care Provider [phone] Encounter Details Date Type Department Care Team (Late st Contact Info) Description 05/03/2017 4:30 PM EST Office Visit Radiation Oncology at [address] [phone] German Greene MD [address] [place] [address] DR RADIATION ONCOLOGY [place], [place] [id number] Malignant neoplasm of right ureter Social History [...] Sign Reading Time Taken Comments Blood Pressure 170/66 05/03/2017 3:35 PM EST Pulse 72 05/03/2017 3:35 PM EST Temperature 36.5 ??C (97.7 ??F) 05/03/2017 3:35 PM ES T Respiratory Rate 18 05/03/2017 3:35 PM EST Oxygen Saturation 100% 05/03/2017 3:35 PM EST Inhaled Oxygen Concentration - - Weight - - Height - - Body Mass Index - - documented in this encounter Progress Notes * German Gerene MD - 05/03/2017 4:30 PM EST Images from the original note were not included. RADIATION ONCOLOGY - Weekly On Treatment Visit Note 05/03/17 German Greene MD, MS Radiation Oncology [facility] [phone] (paging jute bag cutting machine operator) PATIENT IDENTIFICATION NAME: Isaura Aguiar DATE OF : 1940 DIAGNOSIS: Ureteral cancer Staging form: Renal Pelvis and Ureter, AJCC 7th Edition - Clinical: Stage IV (T3, N2, M0) - Signed by German Greene MD on 03/24/2017 CONCURRENT THERAPY: Xeloda (from Dr. Jacob) INTENT OF THERAPY: Definitive (Curative) RADIATION TREATMENT DETAILS: Initial Treatment Site Right Pelvis / ureter bed Prescribed Dose 45 Gy in 25 fractions Concurrent Boost Treatment Site Residual LN (unresectable) Prescribed Dose 55Gy in 25 fractions Current Dose: 6.6 Gy in 3 fractions Care Support Representative Pascual from Current Plan (minimum 45 Gy isodose volume shown): INTERVAL HISTORY Subjective: General - No changes since last seen. Started this week. GI - Slight nausea helped by Zofran Monday. No nausea since. Some mouth sores since starting chemotherapy. Pain: Pain score today is 3/10 in her right shoulder related to xrt positioning. Also reports RLQ pain / epigastric pain. She thinks she may be constipated. Nutrition: Weight today was not measured. Eating normal diet. Medications 05/03/17 1547 Medication Sig Taking? LORazepam (ATIVAN) 0.5 mg Tablet take 1 tablet by mouth ONE HOUR PRIOR TO PET SCAN,MAY REPEAT AT TIME OF SCAN if needed ondansetron (ZOFRAN-ODT) 8 mg Tablet, Rapid Dissolve You can take this 1 hour prior to radiation toprevent nausea, and 4 hours after radiation. You can otherwise take as needed every 8 hours. CAPEcitabine (XELODA) chemo tablet Take 1,800 mg by mouth 2 times daily for 30 days. On the days ofradiation. Take with food. Call clinic before starting medication. The prescription should be filled with whatever strength the pharmacy has available to achieve the prescribed dose, preferably taking the smallest number of capsules/tablets prescribed. omeprazole (PRILOSEC) 10 mg Capsule, Delayed Release(E.C.) Take 10 mg by mouth daily as needed. Daily as needed lactobacillus rhamnosus, GG, (CULTURELLE) 10 billion cell Capsule Take 1 capsule by mouth daily. magnesium oxide (MAG-OX) 400 mg Tablet Take 1 tablet by mouth daily. docusate sodium (COLACE) 100 mg Capsule Take 100 mg by mouth 2 times daily as needed. Calcium Carbonate-Vitamin D3 600 mg(1,500mg) -400 unit Tab Take 1 tablet by mouth daily. Reported on 01/03/2017 hydrochlorothiazide (HYDRODIURIL) 25 mg tablet Take 25 mg by mouth daily. aspirin 81 mg EC tablet Take 81 mg by mouth daily. atenolol (TENORMIN) 50 mg tablet simvastatin (ZOCOR) 10 mg tablet ACETAMINOPHEN (TYLENOL ORAL) Interval Imaging / Laboratory Studies: I have personally reviewed this patient's interval portal imaging to confirm accurate positioning and alignment which matches the patient's original approved treatment planning images. EXAM: BP 170/66 (Patient Position: Sitting) Pulse 72 Temp 36.5 ??C (97.7 ??F) (Oral) Resp 18 [id number]% Constitutional: she appears well-developed and well-nourished. No [...] ureter documented in this encounter Care Teams Press Bucker Relationship Specialty Start Date End Date Dulce Hidalgo MD [address] [facility] [place] [address] PCP - General Family Medicine 09/30/16 documented as of this encounter
--- OUTSIDE RECORDS SUMMARY | 2024-01-11 13:20 | XMS_ITS | Encounter Summary ---
Author Organization [facility] [place] [address] Care Team Providers Care Meteorologist In Charge Name Role Phone Dulce Hidalgo MD Primary Care Provider [phone] Encounter Details Date Type Department Care Team (Latest Contact Info) Description 12/21/2017 - 12/21/2017 11:59 PM EDT Hospital Encounter [place] [phone] Ariel Do MD [facility] [place] [address] Discharge Disposition: Home Social History Tobacco Use [...] STORAGE ONLY CT ABDOMEN AND PELVIS Routine 12/21/2017 12:00 AM EDT documented in this encounter Results * Film Library- Storage Only CT Abdomen & Pelvis (12/21/2017 12:00 AM EDT) Narrative [facility] - 12/22/2017 5:16 PM EDT This exam is for storage only and is auto-finalizing. Ariel Do MD [facility] FILM LIBRARY ORD ERABLES [place], [place] documented in this encounter Visit Diagnoses Not on filedocumented in this encounter Care Teams Meteorologist In Charge Relationship Specialty Start Date End Date Dulce Hidalgo MD [address] [place] [address] PCP - General Family Medicine 09/30/16 documented as of this encounter
--- OUTSIDE RECORDS SUMMARY | 2024-01-11 13:20 | XMS_ITS | Encounter Summary ---
[place] [address] Care Team Providers Care Backup Administrative Coordinator Name Role Phone Dulce Hidalgo MD Primary Care Provider [phone] Encounter Details Date Type Department Care Team (Latest Contact Info) Description 06/06/2017 Unscheduled Encounter Radiation Oncology at [address] [phone] Kathleen Aponte RN Malignant neoplasm of ureter, unspecified laterality Social [...] Sign Reading Time Taken Comments Blood Pressure 132/114 06/06/2017 3:50 PM EST Pulse 80 06/06/2017 3:50 PM EST Temperature 36.8 ??C (98.2 ??F) 06/06/2017 3:50 PM ES T Respiratory Rate - - Oxygen Saturation 100% 06/06/2017 3:50 PM EST Inhaled Oxygen Concentration - - Weight - - Height - - Body Mass Index - - documented in this encounter Progress Notes * Kathleen Aponte RN - 06/06/2017 3:48 PM EST Radiation Oncology Nursing Completion of Treatment Note Pt completed 25 Fxs totaling 4500cGY to right pelvis/ureter bed for ureteral cancer. . Side effects/problems noted today: Diarrhea controlled with imodium and low fiber diet. Back fatigue this weekend after baking bread, making cookies and then cleaning kitchen. This has now resolved. Denies pain. Denies urinary issues. Has been afebrile. Wants to know when she can get a flu shot following taking xeloda. She is aware to stop xoloda as xrt now completed. See vitals taken this encounter. Patient states that she has an appointment with PCP tomorrow and will have BP rechecked there. I conferred with Dr. Gordon regarding when patient can receive flu vaccine. His response was anytime. Dr. Graf covering for Dr. Greene updated regarding today's BP reading. She asked that I contact PCP office to update. Teaching and discharge instructions reviewed: Patient advised that per Dr. Gordon it was okay for her to have flu shot at anytime. Instructed her to continue low fiber diet and imodium prn. Instructed that once her BM's become more regular again she could slowly add higher fiber foods back in toher diet backing off again should diarrhea resume. Instructed to call with any concerns Expected follow up/referrals: Per Dr. Greene Patient has our contact numbers Patient/family response to instructions: Patient verbalized understanding of these instructions. documented in this encounter Plan of Treatment Not on file documented as of this encounter Visit Diagnoses Diagnosis Malignant neoplasm of ureter, unspecified laterality documented in this encounter Care Teams Backup Administrative Coordinator Relationship Specialty Start Date End Date Dulce Hidalgo MD [address] [place] [address] PCP - General Family Medicine 09/30/16 documented as of this encounter
--- OUTSIDE RECORDS SUMMARY | 2024-01-11 13:20 | XMS_ITS | Encounter Summary ---
[place] [address] Care Team Providers Care Microarray Analyst Name Role Phone Dulce Hidalgo MD Primary Care Provider [phone] Reason for Visit * Reason Onset Date Comments New Medication Request 04/20/2017 Encounter Details Date Type Department Care Team (Late st Contact Info) Description 04/20/2017 Telephone Hematology/Oncology at [address] [phone] Sherly Herrera RN New Medication Request Social History Tobacco Use Types Packs/Day Years [...] encounter Miscellaneous Notes * Telephone Encounter - Sherly Herrera RN - 04/20/2017 3:19 PM EST Pt received her capecitabine yesterday. We reviewed she would start it on her first day of radiation 1800 mg (three 500mg tabs and two 150 mg tabs ) twice a day. She will only take it on days she receives radiation. Reviewed side effects. Pt will call with any questions or concerns. documented in this encounter Plan of Treatment Not on file documented as of this encounter Visit Diagnoses Not on filedocumented in this encounter Care Teams Microarray Analyst Relationship Specialty Start Date End Date Dulce Hidalgo MD [address] [place] [address] PCP - General Family Medicine 09/30/16 documented as of this encounter
--- OUTSIDE RECORDS SUMMARY | 2024-01-11 13:20 | XMS_ITS | Encounter Summary ---
[place] [address] Care Team Providers Care Freight Agent Name Role Phone Dulce Hidalgo MD Primary Care Provider [phone] Reason for Visit * Reason Onset Date Comments Other 08/09/2017 Encounter Details Date Type Department Care Team (Late st Contact Info) Description 08/09/2017 Telephone Hematology/Oncology at [address] [phone] Sherly Herrera RN Other Social History Tobacco Use Types Packs/Day [...] Telephone Encounter - Sherly Herrera RN - 08/09/2017 4:08 PM EST Spoke with Kecia, pt's daughter and then pt to let her know per Dr. Gordon that pulmonary emboli found on CT scan. Pt is to go to [facility] ER for anticoagulation therapy, report called in and ct scanfaxed over. Pt will follow up with PCP tomorrow. Pt agrees with plan. documented in this encounter Plan of Treatment Not on file documented as of this encounter Visit Diagnoses Not on filedocumented in this encounter Care Teams Freight Agent Relationship Specialty Start Date End Date Dulce Hidalgo MD [address] [place] [address] PCP - General Family Medicine 09/30/16 documented as of this encounter
--- OUTSIDE RECORDS SUMMARY | 2024-01-11 13:20 | XMS_ITS | Encounter Summary ---
Author Organization [facility] [place] [address] Care Team Providers Care Streetcar Dispatcher Name Role Phone Dulce Hidalgo MD Primary Care Provider [phone] Encounter Details Date Type Department Care Team (Late st Contact Info) Description 05/12/2017 3:30 PM EST Office Visit Hematology/Oncology at [address] [phone] Rusty Jacob MD [facility] [place] [address] Ureteral cancer, unspecified laterality; Skin rash Social History Tobacco Use Types Packs/Day Years [...] Sign Reading Time Taken Comments Blood Pressure 113/63 05/12/2017 3:37 PM EST Pulse 64 05/12/2017 3:37 PM EST Temperature 36.5 ??C (97.7 ??F) 05/12/2017 3:37 PM ES T Respiratory Rate 16 05/12/2017 3:37 PM EST Oxygen Saturation 100% 05/12/2017 3:37 PM EST Inhaled Oxygen Concentration - - Weight 135.2 kg (298 lb) 05/12/2017 3:37 PM EST Height 156 cm (5' 1.42) 05/12/2017 3:37 PM EST Body Mass Index 55.54 05/12/2017 3:37 PM EST documented in this encounter Progress Notes * Rusty Jacob MD - 05/12/2017 3:30 PM EST Brief note: I was asked by Dr. Greene to see Ms. Aguiar for a recheck of a rash on the dorsum of her hands and wrists. She is undergoing concurrent radiation and chemotherapy with oral capecitabine for ureteral cancer. She began therapy on 05/01/17. The dose of capecitabine is 1800 mg bid on days of radiation. She is tolerating this well overall. She denies problems with stomatitis, diarrhea or hand foot syndrome. She saw Dr. Greene on 05/10 and was noted to have an erythematous rash on the dorsum of her hands and wrists. It was not pruritic. It actually is not present today and she does not have rash elsewhere. On exam, there a couple of small areas of erythema on the wrist or forearms bilaterally and fairly extensive age and perhaps solar related skin changes. The etiology of the rash that she had is not clear. She mentioned that she had taken a zofran ODT prior to developing the rash. She had not taken it again until today. No recurrence of the rash although it had only been an hour since that does when I saw her. She also mentions being on the radiation table with her hands behind her head resting on the table prior to noticing the rash. I don't knowif it may have been related to that. It is not unusual for us to see a rash in sun exposed areas related to inflammation of actinic keratoses from capecitabine which can usually be managed symptomatically without stopping the medication. In any event, as the rash is essentially gone, no further inte rvention is indicated at this time. If the rash recurs, she is asked to let us know. Otherwise, shewill keep scheduled f/u. documented in this encounter Plan of Treatment Not on file documented as of this encounter Visit Diagnoses Diagnosis Ureteral cancer, unspecified laterality Skin rash Rash and other nonspecific skin eruption documented in this encounter Care Teams Streetcar Dispatcher Relationship Specialty Start Date End Date Dulce Hidalgo MD [address] [place] [address] PCP - General Family Medicine 09/30/16 documented as of this encounter
--- OUTSIDE RECORDS SUMMARY | 2024-01-11 13:20 | XMS_ITS | Encounter Summary ---
Author Organization [facility] [place] [address] Care Team Providers Care Oil Lease Operator Name Role Phone Dulce Hidalgo MD Primary Care Provider [phone] Encounter Details Date Type Department Care Team (Late st Contact Info) Description 05/31/2017 4:00 PM EST Office Visit Radiation Oncology at [address] [phone] Kishan Kolb MD [facility] [place] [address] Metastatic urothelial carcinoma Social History Tobacco Use [...] Sign Reading Time Taken Comments Blood Pressure 127/93 05/31/2017 3:00 PM EST Pulse 70 05/31/2017 3:00 PM EST Temperature 36.8 ??C (98.2 ??F) 05/31/2017 3:00 PM ES T Respiratory Rate 24 05/31/2017 3:00 PM EST Oxygen Saturation 100% 05/31/2017 3:00 PM EST Inhaled Oxygen Concentration - - Weight 133.5 kg (294 lb 6.4 oz) 05/31/2017 3:00 PM EST boots on Height - - Body Mass Index 54.87 05/30/2017 10:49 AM EST documented in this encounter Progress Notes * Kishan Kolb MD - 05/31/2017 4:00 PM EST Images from the original note were not included. RADIATION ONCOLOGY - Weekly On Treatment Visit Note 05/31/17 German Greene MD, MS Radiation Oncology [facility] [phone] (paging hydroelectric station operator chief) PATIENT IDENTIFICATION NAME: Isaura Aguiar DATE OF [...] Dose 55Gy in 25 fractions Current Dose: 48.4 Gy in 22 fractions Wireless Team Member Pascual from Current Plan (minimum 45 Gy isodose volume shown): INTERVAL HISTORY Subjective: General - Overall she is quite tired. GI - Diarrhea, 3-4x/day. On LFD. Controlled w/ Imodium. Some cramping in abdomen but not pain per se. Zofran prior to XRT, occasional nausea. No vomiting. - No issues Pain: Pain score today is 0/10. Nutrition: Weight at start of therapy was 298 lbs --> 294 lbs today. Eating normal diet. Medications 05/31/17 1527 Medication Sig Taking? PROCHLORPERAZINE MALEATE (COMPAZINE ORAL) Take by mouth. Yes hvpy-nai-dmg-tva-biqh-dfmx-pec (FIBER 6) 1,000 mg Tablet Take by mouth daily. LORazepam (ATIVAN) 0.5 mg [...] original approved treatment planning images. EXAM: BP (!) 127/93 Pulse 70 Temp 36.8 ??C (98.2 ??F) Resp 24 Wt (!) 133.5 kg (294 lb 6.4 oz) Comment: boots on SpO2 100% BMI 54.87 kg/m2 Constitutional: she appears well-developed and well-nourished. [...] as anticipated. Plan: Continue treatment as planned. FU: per Dr. Greene documented in this encounter Plan of Treatment Not on file documented as of this encounter Visit Diagnoses Diagnosis Metastatic urothelial carcinoma Secondary malignant neoplasm of other urinary organs documented in this encounter Care Teams Oil Lease Operator Relationship Specialty Start Date End Date Dulce Hidalgo MD [address] [place] [address] [facility] [address] [place] [address] PCP - General Family Medicine 09/30/16 documented as of this encounter
--- OUTSIDE RECORDS SUMMARY | 2024-01-11 13:20 | XMS_ITS | Encounter Summary ---
[place] [address] Care Team Providers Care Payroll Administrative Assistant Name Role Phone Dulce Hidalgo MD Primary Care Provider [phone] Reason for Referral * Diagnostic Test (Routine) - Closed Specialty Diagnoses / Procedures Referred By Christal lainez Referred To Contact Radiology Diagnoses Metastatic urothelial carcinoma Procedures PET CT Standard Skull Base to Mid-Thigh Danny Gordon MD [facility] [place] [address] [place] [address] Referral ID Status Reason Start Date Expiration Date V isits Requested Visits Authorized [id number] Closed Specialty Service Requested 11/14/2017 11/14/2018 1 1 Encounter Details Date Type Department Care Team (Late st Contact Info) Description 11/14/2017 9:30 AM EDT Office Visit Hematology/Oncology at [address] [phone] Danny Gordon MD [facility] [place] [address] Metastatic urothelial carcinoma; Anemia of chronic renal failure, stage 2 (mild) Social History Tobacco Use Types Packs/Day Years [...] Sign Reading Time Taken Comments Blood Pressure 98/61 11/14/2017 9:34 AM EDT Pulse 73 11/14/2017 9:34 AM EDT Temperature 36.3 ??C (97.3 ??F) 11/14/2017 9:34 AM ED T Respiratory Rate 18 11/14/2017 9:34 AM EDT Oxygen Saturation 100% 11/14/2017 9:34 AM EDT Inhaled Oxygen Concentration - - Weight 126.1 kg (278 lb) 11/14/2017 9:34 AM EDT Height 156 cm (5' 1.42) 11/14/2017 9:34 AM EDT copied Body Mass Index 51.82 11/14/2017 9:34 AM EDT documented in this encounter Progress Notes * Danny Gordon MD - 11/14/2017 9:30 AM EDT Diagnosis: Metastatic urothelial carcinoma HPI:Khari Aguiar is 77 y.o.F referred to us by Yara Llamas for a consultation on new diagnosis of metastatic urothelial carcinoma. She initially presented in July right flank pain which led to CT scan ordered by Dr. Hidalgo. He scan revealed right hydronephrosis and distal ureter mass. She was seen by our urologist Dr. Do. Khari underwent right robotic-assisted laparoscopic right nephroureterectomy on 11/02/2016. 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 Postop course was uneventful. She is here for discussion of adjuvant chemotherapy.Mrs. Aguiar completed concomitant XRT with capecitabine on June 06, 2017. Interval history: Mrs. Aguiar is in clinic for follow-up appointment. She had 3 episodes of abdominal pain which lasted up to 4 hours in September 2017. Pain resolved spontaneously. She had nausea and bowel movements as well. Denies any pain last few weeks. Denies any fever, chills, nausea, vomiting. No other focal complaints. PMH: Abdominal pain Acute PE on CT scan [...] drink alcohol, she used to work in [employer], retired 2002, she has 3 children. Family [...] Medications These changes are accurate as of 11/14/17 9:56 AM. If you have any questions, ask [...] Tab Take by mouth daily. Generic drug: qqgh-gxh-qzh-nzr-yklt-culw-pec Refills: 0 hydroCHLOROthiazide 25 mg Tab Commonly [...] Generic drug: rivaroxaban 15 mg Refills: 0 Review of Systems: Constitutional: [...] Cervical, supraclavicular, and axillary nodes normal Neurologic: Normal;ambulance driver paramedic grossly intact Vitals BP 98/61 (Patient Position: Sitting) Pulse 73 Temp 36.3 ??C (97.3 ??F) (Oral) Resp 18 Ht 156 cm (5' 1.42) Comment: copied Wt 126.1 kg (278 lb) SpO2 100% BMI 51.82 kg/m2 Weight Wt Readings from Last 3 Encounters: 11/14/17 126.1 kg (278 lb) 08/15/17 131.1 kg (289 lb) 06/29/17 129.6 kg (285 lb 12.8 oz) Pathology: 11/02/16 SYNOPTIC REPORT Specimen ?Procedure: [...] Normal Block(s): ?? B23 Labs: Results for KHARI AGUIAR ( ) as of 11/14/2017 09:54 Ref. Range 10/31/2017 11:25 WBC Latest Ref Range: 4.0 - 9.5 x10(3)/mcL 4.6 RBC Latest Ref Range: 4.00 - 5.21 x10(6)/mcL 3.69 (L) Hemoglobin Latest Ref Range: 11.7 - 15.5 gm/dL 11.1 (L) Hematocrit Latest Ref Range: 35.7 - 45.8 % 34.0 (L) MCV Latest Ref Range: 82.6 - 94.4 fL 92.1 MCH Latest Ref Range: 27.1 - 32.0 pg 30.1 MCHC Latest Ref Range: 31.7 - 35.0 gm/dL 32.6 RDWSD Latest Ref Range: 37.0 - 46.0 fL 47.8 (H) RDWCV Latest Ref Range: 11.5 - 14.1 % 14.1 Platelets Latest Ref Range: 145 - 357 x10(3)/mcL 187 MPV Latest Ref Range: 7.6 - 12.9 fL 10.2 nRBC % Auto Latest Units: % 0.0 nRBC Abs Auto Latest Ref Range: 0.000 - 0.000 x10(3)/mcL 0.000 Neutr Abs (ANC) Latest Ref Range: 1.70 - 6.10 x10(3)/mcL 2.65 Neutrophils % Latest Units: % 57.3 Immature Gran % Latest Units: % 0.40 Lymphocytes % Latest Units: % 31.1 Monocytes % Latest Units: % 8.6 Eosinophils % Latest Units: % 2.4 Basophils % Latest Units: % 0.2 Sh[place]ana Gran Abs Latest Ref Range: 0.00 - 0.04 x10(3)/mcL 0.02 Lymphocytes Abs Latest Ref Range: 0.9 - 3.2 x10(3)/mcL 1.4 Monocyte Abs Latest Ref Range: 0.3 - 0.9 x10(3)/mcL 0.4 Eosinophils Abs Latest Ref Range: 0.0 - 0.4 x10(3)/mcL 0.1 Basophils Abs Latest Ref Range: 0.0 - 0.1 x10(3)/mcL 0.0 Sodium Latest Ref Range: 135 - 145 mmol/L 138 Potassium Latest Ref Range: 3.5 - 5.0 mmol/L 4.3 Chloride Latest Ref Range: 98 - 107 mmol/L 99 CO2 Latest Ref Range: 22 - 31 mmol/L 27 Anion Gap Latest Ref Range: 5 - 15 mmol/L 12 BUN Latest Ref Range: 8 - 18 mg/dL 21 (H) Creatinine Latest Ref Range: 0.70 - 1.20 mg/dL 1.28 (H) Estimated GFR Latest Ref Range: >=60 41 (L) Glucose Lvl Latest Ref Range: 65 - 199 mg/dL 112 Calcium Latest Ref Range: 8.5 - 10.5 mg/dL 9.8 Total Protein Latest Ref Range: 6.1 - 8.0 gm/dL 6.8 Albumin Latest Ref Range: 3.2 - 5.2 gm/dL 3.8 Total Bilirubin Latest Ref Range: 0.2 - 1.3 mg/dL 0.2 Alk Phos Latest Ref Range: 40 - 104 unit/L 84 AST Latest Ref Range: 0 - 30 unit/L 15 ALT Latest Ref Range: 0 - 30 unit/L 13 Imagin10/31/17 CT scan: IMPRESSION Status post right nephrectomy. [...] concurrent XRT and Xeloda. CT scan revealed New small area of ill-defined soft tissue [...] for small bowel obstruction many years ago. I will obtain PET scan and discuss her case on our tumor board. If there is a cancer recurrence we can consider treatment with immunotherapy. We briefly discussed benefits and the risk of pembrolizumab. # anemia: Hg 11 Will monitor. # Rectal bleeding: follows with Dr. Hidalgo # acute PE: h/o right calf DVT, on Xarelto. follows with Dr. Hidalgo. #Mediport: We will schedule removal Plan: 1. PET scan within 2 weeks 2. Next visit in 4 weeks 3. TB discussion The plan was discussed with the patient in details. All questions were answered to patient's satisfaction. documented in this encounter Plan of Treatment Not on file documented as of this encounter Results * PET CT Standard Skull Base to Mid-Thigh (12/01/2017 1:29 PM EDT) Anatomical Region Laterality Modality Positron Emissio n Tomography (PET) Impressions 12/01/2017 2:34 PM EDT No recurrent or metastatic disease detected. Thank you for referring this patient to [facility]. Narrative 12/01/2017 2:34 PM EDT EXAMINATION: PET CT STANDARD SKULL BASE TO MID-THIGH CLINICAL HISTORY: Restaging of metastatic urothelial carcinoma TECHNIQUE: Following IV injection of 64-hstkmf-6-deoxyglucose (FDG) a standard uptake of approximately 60 [...] urothelial carcinoma TECHNIQUE: Following IV injection of 99-zcakge-3-deoxyglucose (FDG) astandard uptake of approximately 60 minutes, [...] Thank you for referring this patient to [facility]. Danny Gordon MD IMG PET ORDERABLES documented in this encounter Visit Diagnoses Diagnosis Metastatic urothelial carcinoma Secondary malignant neoplasm of other urinary organs Anemia of chronic renal failure, stage 2 (mild) Metastatic urothelial carcinoma Secondary malignant neoplasm of other urinary organs documented in this encounter Care Teams Payroll Administrative Assistant Relationship Specialty Start Date End Date Dulce Hidalgo MD [address] [place] [address] PCP - General Family Medicine 09/30/16 documented as of this encounter
--- OUTSIDE RECORDS SUMMARY | 2024-01-11 13:20 | XMS_ITS | Encounter Summary ---
[place] [address] Care Team Providers Care Spray Gun Sizer Name Role Phone Dulce Hidalgo MD Primary Care Provider [phone] Encounter Details Date Type Department Care Team (Late st Contact Info) Description 05/09/2017 3:15 PM EST Office Visit Hematology/Oncology at [address] [phone] Nicki Philip, VOICE PROFESSOR [address] [facility] [place] [address] Malignant neoplasm of ovary, unspecified laterality; Malignant neoplasm of breast, stage 1, unspecified estrogen receptor status, unspecified laterality; Malignant neoplasm of right ureter; Metastatic urothelial carcinoma; Renal mass Social History Tobacco Use Types [...] Sign Reading Time Taken Comments Blood Pressure 170/60 05/09/2017 3:05 PM EST Pulse 58 05/09/2017 3:05 PM EST Temperature 36.5 ??C (97.7 ??F) 05/09/2017 3:05 PM ES T Respiratory Rate 16 05/09/2017 3:05 PM EST Oxygen Saturation 95% 05/09/2017 3:05 PM EST Inhaled Oxygen Concentration - - Weight 136.1 kg (300 lb) 05/09/2017 3:05 PM EST Height 156 cm (5' 1.42) 05/09/2017 3:05 PM EST Body Mass Index 55.92 05/09/2017 3:05 PM EST documented in this encounter Progress Notes * Nicki Philip, VOICE PROFESSOR - 05/09/2017 3:15 PM EST Diagnosis: Metastatic urothelial carcinoma HPI:Isaura [...] Aguiar is in clinic for follow-up appointment. Overall Mrs. Aguiar feels well. She denies any pain, shortness of breath, bleeding, fever or chills. She continues on XRT for herbladder cancer and is taking her capecitibine as directed. PMH: No interval changes since last visit [...] drink alcohol, she used to work in [employer], retired 2002, she has 3 children. Family [...] Medications These changes are accurate as of: 05/09/17 12:50 PM. If you have any questions, ask [...] chest pain, palpitations and leg swelling. Gastrointestinal: Episode of rectal bleeding on February 09. Presently constipated but otherwise fine- uses colace and fiber pill PRN. 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 grossly intact Vitals BP 170/60 (Patient Position: Sitting) Pulse 58 Temp 36.5 ??C (97.7 ??F) (Oral) Resp 16 Ht 156 cm (5' 1.42) Wt (!) 136.1 kg (300 lb) SpO2 95% BMI 55.92 kg/m2 Weight Wt Readings from Last 3 Encounters: 05/09/17 (!) 136.1 kg (300 lb) 10/31/17 (!) 134.3 kg (296 lb) 03/27/17 (!) 133.5 kg (294 lb 6 oz) Labs: 05/09/17 CBC: WBC 3.76 hemoglobin 10.7 platelets 210 CMP: Sodium 131 potassium 4.1 BUN 25 creatinine 1.51 glucose 100 calcium 9.1 total bili 0.32 AST 17ALT 19 alk phos 84 total protein 7.0 albumin 3.3 Pathology: 11/02/16 SYNOPTIC REPORT Specimen ?Procedure: ??Nephroureterectomy, [...] 02/28/17 3 cycles of cisplatin and gemcitabine Her measured creatinine clearance is 45 mL/m. Based on the data from phase II clinical trial we usesplit dose of cisplatin 35 mg/m2 gemcitabine 1000 mg per [place] squared days 1 and 8. Mrs. Aguiar completed 3 cycles of cisplatin and gemcitabine. Futher chemotherapy was discontinued due to kidney toxicity. PET scan was negative for metastatic disease. She was seen by our radiation oncologist Dr. Greene who planned for adjuvant radiation concurrently and we added capecitabine 1800 mg (three 500mg tabs and two 150 mg tabs ) twice a day on days of XRT only. She finishes Jun 03. # Creatinine: 1.51 (lower) today # anemia: secondary to chemotherapy. Hg 10.7 Will monitor. # Rectal bleeding: follows with Dr. Hidalgo # Swelling and redness of right lower leg: right calf DVT, on Xarelto. Will follow with Dr. Hidalgo. Plan: 1.Concurrent XRT (#12/04 planned treatments today) and capecitibine. Next visit in 2 weeks with CBC,CMP Nicki Philip, MSN, DIRECTOR BIOMEDICAL ENGINEERING, AOCN Hematology/Oncology Nurse Practitioner [place], [place] [phone] documented in this encounter Plan of Treatment Not on file documented as of this encounter Procedures Procedure Name Priority Date/Time Associated Diagnosis Comments LAB SCAN 05/09/2017 12:00 AM EST documented in this encounter Results * SCAN DOC: LAB (05/09/2017 12:00 AM EST) Narrative 05/09/2017 12:00 AM EST Ordered by an unspecified provider. 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
--- OUTSIDE RECORDS SUMMARY | 2024-01-11 13:20 | XMS_ITS | Encounter Summary ---
[place] [address] Care Team Providers Care Water Taxi Driver Name Role Phone Dulce Hidalgo MD Primary Care Provider [phone] Encounter Details Date Type Department Care Team (Late st Contact Info) Description 08/09/2017 Telephone [place]ematology [place] [phone] Halina Balderas, RN Social History Tobacco Use Types Packs/Day [...] encounter Miscellaneous Notes * Telephone Encounter - Halina Balderas, RN - 08/09/2017 2:59 PM EST Request from provider: Call patient to let her know there was an incidental finding of a PE on CT scan today. Advise pt to go to ED for evaluation & anti- coagulation. Pt to f/u with her PCP tomorrow for jail anti-coagulation management. Call placed back to patient but unable to reach at this time. Left message asking her to call back to clinic. Call placed to patient's PCP Dulce Dong @ [phone] & spoke to triage nurse Judit. Discussed CT findings of PE & need for follow-up for anticoagulation management. They will contact pt to arrange f/u. CT report faxed to [facility] @ with confirmation received. Message received from Sherly Herrera, RN: Spoke with Kecia, pt's daughter and then pt to let her know per Dr. Gordon that pulmonary emboli found on CT scan. Pt is to go to [facility] ER for anticoagulation therapy, report called in and ct scan faxed over. Pt will follow up with PCP tomorrow. Pt agrees with plan. documented in this encounter Plan of Treatment Not on file documented as of this encounter Visit Diagnoses Not on filedocumented in this encounter Care Teams Water Taxi Driver Relationship Specialty Start Date End Date Dulce Hidalgo MD [address] [facility] [address] [place] [address] PCP - General Family Medicine 09/30/16 documented as of this encounter
--- OUTSIDE RECORDS SUMMARY | 2024-01-11 13:20 | XMS_ITS | Encounter Summary ---
[place] [address] Care Team Providers Care Curtain Roller Assembler Name Role Phone Dulce Hidalgo MD Primary Care Provider Encounter Details Date Type Department Care Team (Late st Contact Info) Description 05/18/2017 4:15 PM EST Office Visit Radiation Oncology at [address] [phone] German Greene MD [address] [place] [address] DR RADIATION ONCOLOGY [place], [place] [id number] Malignant neoplasm of right ureter Social History [...] Sign Reading Time Taken Comments Blood Pressure 146/63 05/18/2017 3:56 PM EST Pulse 65 05/18/2017 3:56 PM EST Temperature 36.7 ??C (98.1 ??F) 05/18/2017 3:56 PM ES T Respiratory Rate 16 05/18/2017 3:56 PM EST Oxygen Saturation 98% 05/18/2017 3:56 PM EST Inhaled Oxygen Concentration - - Weight 133.7 kg (294 lb 12.8 oz) 05/18/2017 3:56 PM EST Height - - Body Mass Index 54.95 05/12/2017 3:37 PM EST documented in this encounter Progress Notes * German Greene MD - 05/18/2017 4:15 PM EST Images from the original note were not included. RADIATION ONCOLOGY - Weekly On Treatment Visit Note 05/18/17 German Greene MD, MS Radiation Oncology [facility] [phone] (paging balancing machine operator) PATIENT IDENTIFICATION NAME: Isaura Aguiar [...] Dose 55Gy in 25 fractions Current Dose: 23.4 / 28.6 Gy in 13 fractions Microfilm Mounter Pascual from Current Plan (minimum 45 Gy isodose volume shown): INTERVAL HISTORY Subjective: General - Overall she is quite tired. GI - Taking zofran as premed with no nausea. Constipation relieved by prune juice. Some slight crampiness / tenderness. not high enough to give it a number. Skin - Ongoing skin lesions. Eval'ed by Dr. Jacob - not felt to be related to chemotherapy. Pain: Pain score today is 0/10. Nutrition: Weight at start of therapy was 298 lbs --> 294 lbs today. Eating normal diet. Medications 05/18/17 1604 Medication Sig Taking? LORazepam (ATIVAN) 0.5 mg [...] original approved treatment planning images. EXAM: BP 146/63 (Patient Position: Sitting) Pulse 65 Temp 36.7 ??C (98.1 ??F) (Oral) Resp 16 Wt (!) 133.7 kg (294 lb 12.8 oz) SpO2 98% BMI 54.95 kg/m2 Constitutional: she appears well-developed and well-nourished. [...] ureter documented in this encounter Care Teams Curtain Roller Assembler Relationship Specialty Start Date End Date Dulce Hidalgo MD [facility] [address] [place] [address] PCP - General Family Medicine 09/30/16 documented as of this encounter
--- OUTSIDE RECORDS SUMMARY | 2024-01-11 13:20 | XMS_ITS | Encounter Summary ---
Author Organization [facility] [place] [address] Care Team Providers Care Local Area Network Systems Adminstrator Name Role Phone Dulce Hidalgo MD Primary Care Provider [phone] Encounter Details Date Type Department Care Team (Latest Contact Info) Description 04/21/2017 - 04/21/2017 11:59 PM EST Hospital Encounter [place] [phone] Danny Gordon MD [facility] [place] [address] Discharge Disposition: Home Social History Tobacco Use [...] Sig Dispensed Refills Start Date End Date LORazepam (ATIVAN) 0.5 mg Tablet take 1 tablet by mouth ONE HOUR PRIOR TO PET SCAN,MAY REPEAT AT TIME OF SCAN if needed 0 12/15/2016 omeprazole (PRILOSEC) 10 mg Capsule, Delayed Release(E.C.) Take 10 mg by mouth daily. Daily as needed magnesium oxide (MAG-OX) 400 mg TabletIndications:M etastatic urothelial carcinoma Take 1 tablet by mouth daily. 30 tablet 2 01/03/2017 docusate sodium (COLACE) 100 mg Capsule Take 100 mg by mouth as needed. Calcium Carbonate-Vitamin D3 600 mg(1,500mg) -400 unit Tab Take 1 tablet by mouth daily. Reported on 01/03/2017 ACETAMINOPHEN (TYLENOL ORAL) Take 500 mg by mouth every 6 hours. *taking 2 tablets every 6 hrs as needed* 08/05/2010 CAPEcitabine (XELODA) chemo tablet Take 1,800 mg by mouth 2 times daily for 30 days. On the days of radiation. Take with food. Call clinic before starting medication. The prescription should be filled with whatever strength the pharmacy has available to achieve the prescribed dose, preferably taking the smallest number of capsules/tablets prescribed. 60 Doses of treatment to dispense 04/11/2017 08/15/2017 rivaroxaban (XARELTO) 15 mg TabletIndications:M etastatic urothelial carcinoma,Ovarian cancer, unspecified laterality,Pain and swelling of lower leg, right Take 1 tablet by mouth 2 times daily. 42 tablet 03/14/2017 05/03/2017 aspirin 81 mg EC tablet Take 81 [...] Associated Diagnosis Comments FILM LIBRARY STORAGE ONLY ULTRASOUND STUDY Routine 04/21/2017 12:00 AM EST documented in this encounter Results * Film Library- Storage Only Ultrasound Study (04/21/2017 12:00 AM EST) Narrative EDITH THORNTON - 04/22/2017 2:08 PM EST This exam is for storage only and is auto-finalizing. Danny Gordon MD [facility] FILM LIBRARY ORD ERABLES [place] documented in this encounter Visit Diagnoses Not on filedocumented in this encounter Care Teams Local Area Network Systems Adminstrator Relationship Specialty Start Date End Date Dulce Hidalgo MD [facility] [address] [facility] [address] [place] [address] PCP - General Family Medicine 09/30/16 documented as of this encounter
--- OUTSIDE RECORDS SUMMARY | 2024-01-11 13:20 | XMS_ITS | Encounter Summary ---
[place] [address] Care Team Providers Care Set Builder Name Role Phone Dulce Hidalgo MD Primary Care Provider [phone] Reason for Visit * Reason Onset Date Comments New Medication Request 04/17/2017 Encounter Details Date Type Department Care Team (Late st Contact Info) Description 04/17/2017 Telephone Hematology/Oncology at [address] [phone] Sherly Herrera RN New Medication [...] Telephone Encounter - Sherly Herrera RN - 04/17/2017 2:00 PM EST [facility]oke with [facility] and prescription for capecitabine is ready for delivery. Pt has no copay. I called pt and asked her to call [facility] at [phone] to set up delivery. I asked pt to call me when she receives medication so we can review how she is to take it. She is due to start radiation therapy on . Pt agrees with plan. Pt called [facility] and got a different story stated medication is not ready. Spoke with Aron Valente out Point of care contact at [phone] she is looking into this and will get back to us about it. documented in this encounter Plan of Treatment Not on file documented as of this encounter Visit Diagnoses Not on filedocumented in this encounter Care Teams Set Builder Relationship Specialty Start Date End Date Dulce Hidalgo MD [address] [place] [address] PCP - General Family Medicine 09/30/16 documented as of this encounter
--- OUTSIDE RECORDS SUMMARY | 2024-01-11 13:20 | XMS_ITS | Encounter Summary ---
Author Organization [facility] [place] [address] Care Team Providers Care Chief General Pediatric [facility] Name Role Phone Dulce Hidalgo MD Primary Care Provider [phone] Encounter Details Date Type Department Care Team (Late st Contact Info) Description 08/09/2017 Telephone Hematology/Oncology at [address] [phone] Danny Gordon MD [facility] [address] [place] [address] Social History Tobacco Use Types Packs/Day Years [...] Telephone Encounter - Danny Gordon MD - 08/09/2017 2:51 PM EST I called about incidental finding of pulmonary embolism on the CT scan documented in this encounter Plan of Treatment Not on file documented as of this encounter Visit Diagnoses Not on filedocumented in this encounter Care Teams Chief General Pediatric Clinic Relationship Specialty Start Date End Date Dulce Hidalgo MD [facility] [address] [facility] [address] [place] [address] PCP - General Family Medicine 09/30/16 documented as of this encounter
--- OUTSIDE RECORDS SUMMARY | 2024-01-11 13:20 | XMS_ITS | Encounter Summary ---
[place] [address] Care Team Providers Care Poultry Offal Icer Name Role Phone Dulce Hidalgo MD Primary Care Provider [phone] Encounter Details Date Type Department Care Team (Late st Contact Info) Description 05/10/2017 4:30 PM EST Office Visit Radiation Oncology at [address] [phone] German Greene MD [address] [place] [address] DR RADIATION ONCOLOGY [place], [place] [id number] Malignant neoplasm of right ureter Social History [...] Sign Reading Time Taken Comments Blood Pressure 154/77 05/10/2017 3:52 PM EST Pulse 64 05/10/2017 3:52 PM EST Temperature 36.4 ??C (97.5 ??F) 05/10/2017 3:52 PM ES T Respiratory Rate 16 05/10/2017 3:52 PM EST Oxygen Saturation 100% 05/10/2017 3:52 PM EST Inhaled Oxygen Concentration - - Weight 135.4 kg (298 lb 8.1 oz) 05/10/2017 3:52 PM EST Height - - Body Mass Index 55.64 05/09/2017 3:05 PM EST documented in this encounter Progress Notes * German Greene MD - 05/10/2017 4:30 PM EST Images from the original note were not included. 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 GI - Denies n/v. +Constipated. Taking zofran as premed with no nausea. She forgot today's zofran dose. Skin - Today she noticed small red lesions on the dorsum of her hands and wrists. Pain: Pain score today is 3/10 in her right shoulder related to xrt positioning. Nutrition: Weight today was 298 lbs. Eating normal diet. Medications 05/10/17 3523 Medication Sig Taking? ondansetron (ZOFRAN-ODT) 8 mg Tablet, Rapid Dissolve You can take this 1 hour prior to radiation toprevent nausea, and 4 hours after radiation. You can otherwise take as needed every 8 hours. Yes CAPEcitabine (XELODA) chemo tablet Take 1,800 mg by mouth 2 times daily for 30 days. On the days ofradiation. Take with food. Call clinic before starting medication. The prescription should be filled with whatever strength the pharmacy has available to achieve the prescribed dose, preferably taking the smallest number of capsules/tablets prescribed. Yes omeprazole (PRILOSEC) 10 mg Capsule, Delayed [...] REPEAT AT TIME OF SCAN if needed ACETAMINOPHEN (TYLENOL ORAL) Interval Imaging / Laboratory Studies: I have personally reviewed this patient's interval portal imaging to confirm accurate positioning and alignment which matches the patient's original approved treatment planning images. EXAM: BP 154/77 (Patient Position: Sitting) Pulse 64 Temp 36.4 ??C (97.5 ??F) (Oral) Resp 16 Wt (!) 135.4 kg (298 lb 8.1 oz) SpO2 100% BMI 55.64 kg/m2 Constitutional: she appears well-developed and well-nourished. [...] as anticipated. Plan: Continue treatment as planned. Rash likely secondary to xeloda, I've asked that she check in with Dr. Jacob on Monday or to let us know if the rash significantly worsens before then. documented in this encounter Plan of Treatment Not on file documented as of this encounter Visit Diagnoses Diagnosis Malignant neoplasm of right ureter Malignant neoplasm of ureter documented in this encounter Care Teams Poultry Offal Icer Relationship Specialty Start Date End Date Dulce Hidalgo MD [address] [place] [address] [address] [place] [address] PCP - General Family Medicine 09/30/16 documented as of this encounter
--- OUTSIDE RECORDS SUMMARY | 2024-01-11 13:20 | XMS_ITS | Encounter Summary ---
[place] [address] Care Team Providers Care Home Care Manager Name Role Phone Dulce Hidalgo MD Primary Care Provider [phone] Encounter Details Date Type Department Care Team (Latest Contact Info) Description 08/09/2017 11:20 AM EST Laboratory Appointment Lab [address], [place] [phone] Metastatic urothelial carcinoma Social History Tobacco Use [...] Name Priority Date/Time Associated Diagnosis Comments HEMOGRAM STAT 08/09/2017 12:05 PM EST Metastatic urothelial carcinoma DIFFERENTIAL, AUTOMATED STAT 08/09/2017 12:05 PM EST Metastatic urothelial carcinoma CBC (WITH DIFF) STAT 08/09/2017 12:05 PM EST Metastatic urothelial carcinoma COMPREHENSIVE METABOLIC PANEL (NON-FASTING) STAT 08/09/2017 12:05 PM EST Metastatic urothelial carcinoma documented in this encounter Results * Differential, Automated (08/09/2017 12:05 PM EST) Neutrophils % 60.1 % [facility] Neutr Abs (ANC) 3.66 1.70 - 6.10 x10(3)/[facility] Lymphocytes % 29.1 % [facility] Lymphocytes Abs 1.8 0.9 - 3.2 x10(3)/[facility] Monocytes % 8.1 % [facility] Monocyte Abs 0.5 0.3 - 0.9 x10(3)/[facility] Eosinophils % 1.8 % [facility] Eosinophils Abs 0.1 0.0 - 0.4 x10(3)/[facility] Basophils % 0.2 % [facility] Basophils Abs 0.0 0.0 - 0.1 x10(3)/[facility] Immature Gran % 0.70 % [facility] Comment: Immature granulocytes(IG's)percentage and absolute count will include metamyelocytes, myelocytes, and promyelocytes. Blood smears from CBCs yielding IG's will be scanned manually for concordance. If this scan disagrees with the automated IG or if promyelocytes are noted, a manual differential will be performed. Sh[place]ana Gran Abs 0.04 0.00 - 0.04 x10(3)/[facility] Blood specimen (specimen) 08/09/2017 12:05 PM EST 08/09/2017 12:11 PM EST Narrative Resulting Agency Comment Spec In Lab Amanda Shelton CLERK SUPERVISOR HEMATOLOGY ORDERAB LES [facility] [place] [address] * (ABNORMAL) Hemogram (08/09/2017 12:05 PM EST) WBC 6.1 4.0 - 9.5 x10(3)/[facility] RBC 3.18(L) 4.00 - 5.21 x10(6)/[facility] Hemoglobin 10.2(L) 11.7 - 15.5 gm/dL [facility] Hematocrit 31.2(L) 35.7 - 45.8 % [facility] MCV 98.1(H) 82.6 - 94.4 fL [facility] MCH 32.1(H) 27.1 - 32.0 pg [facility] MCHC 32.7 31.7 - 35.0 gm/dL [facility] Platelets 176 145 - 357 x10(3)/[facility] RDWSD 63.2(H) 37.0 - 46.0 [facility] RDWCV 17.4(H) 11.5 - 14.1 % [facility] MPV 10.2 7.6 - 12.9 [facility] nRBC % Auto 0.0 % [facility] nRBC Abs Auto 0.000 0.000 - 0.000 x10(3)/[facility] Blood specimen (specimen) 08/09/2017 12:05 PM EST 08/09/2017 12:11 PM EST Narrative Resulting Agency Comment Spec In Lab Amanda Shelton APRN HEMATOLOGY ORDERAB LES [facility] [place] [address] * (ABNORMAL) Comprehensive metabolic panel (non-fasting) (08/09/2017 12:05 PM EST) Glucose Lvl 110 65 - 199 mg/dL [facility] Comment:Diabetes: >=200 mg/d L plus symptoms BUN 25(H) 8 - 18 mg/dL [facility] Creatinine 1.32(H) 0.70 - 1.20 mg/dL [facility] Sodium 138 135 - 145 mmol/L [facility] Potassium 4.1 3.5 - 5.0 mmol/L [facility] Comment: Please note: ??Patients with WBC >100,000 may have falsely elevated Potassium levels. ??For accurate Potassium quantification in these patients send serum separator tube (gold top) for subsequent determinations. ??Contact the Clinical Chemistry Laboratory if there are any questions. Chloride 97(L) 98 - 107 mmol/L [facility] CO2 28 22 - 31 mmol/L [facility] Anion Gap 13 5 - 15 mmol/L [facility] Calcium 9.4 8.5 - 10.5 mg/dL [facility] Total Protein 7.1 6.1 - 8.0 gm/dL [facility] Albumin 4.1 3.2 - 5.2 gm/dL [facility] AST 19 0 - 30 unit/L [facility] ALT 13 0 - 30 unit/L [facility] Alk Phos 85 40 - 104 unit/L [facility] Total Bilirubin 0.4 0.2 - 1.3 mg/dL [facility] Estimated GFR 39(L) >=60 [facility] Comment: The reported eGFR should be multiplied by 1.2 for patients. The MDRD is not an appropriate measure of renal function for patients with body mass extremes or in patients with acute kidney failure. http://Whotever.Acorns/DHnkdep http://Whotever.Acorns/DHMCnkf Blood specimen (specimen) 08/09/2017 12:05 PM EST 08/09/2017 12:11 PM EST Narrative Resulting Agency Comment Spec In Lab Amanda Shelton CLERK SUPERVISOR CHEMISTRY ORDERABL ES [facility] [place] [address] documented in this encounter Visit Diagnoses Diagnosis Metastatic urothelial carcinoma Secondary malignant neoplasm of other urinary organs documented in this encounter Care Teams Home Care Manager Relationship Specialty Start Date End Date Dulce Hidalgo MD [address] [place] [address] PCP - General Family Medicine 09/30/16 documented as of this encounter
--- OUTSIDE RECORDS SUMMARY | 2024-01-11 13:20 | XMS_ITS | Encounter Summary ---
[place] [address] Care Team Providers Care Food And Beverage Controller Name Role Phone Dulce Hidalgo MD Primary Care Provider [phone] Reason for Referral * Diagnostic Test (Routine) - Closed Specialty Diagnoses / Procedures Referred By Contac t Referred To Contact Radiology Diagnoses Metastatic urothelial carcinoma Procedures CT Chest Abdomen Pelvis w Contrast (Generic) Danny Gordon MD [facility] [address] [place] [address] [facility] [place] [address] Referral ID Status Reason Start Date Expiration Date V isits Requested Visits Authorized [id number] Closed Specialty Service Requested 05/30/2017 05/30/2018 1 1 Reason for Visit * Diagnostic Test (Routine) - Closed Specialty Diagnoses / Procedures Referred By Contac t Referred To Contact Radiology Diagnoses Metastatic urothelial carcinoma Procedures CT Chest Abdomen Pelvis w Contrast (Generic) Danny Gordon MD [facility] [place] [address] [facility] [place] [address] Referral ID Status Reason Start Date Expiration Date V isits Requested Visits Authorized [id number] Closed Specialty Service Requested 05/30/2017 05/30/2018 1 1 Encounter Details Date Type Department Care Team (Latest Contact Info) Description 08/09/2017 11:04 AM EST - 08/09/2017 11:59 PM EST Hospital Encounter CT Scan at [facility] [place] [address] Danny Gordon MD [facility] [address] [place] [address] Metastatic urothelial carcinoma Discharge Disposition: [...] Sig Dispensed Refills Start Date End Date PROCHLORPERAZINE MALEATE (COMPAZINE ORAL) Take by mouth as needed. LORazepam (ATIVAN) 0.5 mg Tablet take 1 tablet by mouth ONE HOUR PRIOR TO PET SCAN,MAY REPEAT AT TIME OF SCAN if needed 0 12/15/2016 omeprazole (PRILOSEC) 10 mg Capsule, Delayed Release(E.C.) Take 10 mg by mouth daily. Daily as needed magnesium oxide (MAG-OX) 400 mg TabletIndications: Metastatic urothelial carcinoma Take 1 tablet by mouth [...] Doses of treatment to dispense 04/11/2017 08/15/2017 aspirin 81 mg EC tablet Take 81 [...] CHEST ABDOMEN PELVIS W CONTRAST (GENERIC) Routine 08/09/2017 2:09 PM EST Metastatic urothelial carcinoma documented in this encounter Results * CT Chest Abdomen Pelvis w Contrast (Generic) (08/09/2017 2:09 PM EST) Anatomical Region Laterality Modality Abdomen, Pelvis Computed Tomogra phy Impressions 08/09/2017 2:55 PM EST 1. No evidence of recurrent or metastatic disease. 2. Acute segmental pulmonary embolus in the right upper lobe. This was discussed with Dr. Gordon at 2:45 pm. Preliminary report signed by: Jomar Smith at 08/09/2017 2:52 PM I have personally reviewed the image(s) and the residents interpretation and agree with the findings, Jitendra Mendiola at 08/09/2017 2:55 PM Narrative 08/09/2017 2:55 PM EST EXAMINATION: CT CHEST ABDOMEN PELVIS W CONTRAST (GENERIC) CLINICAL HISTORY: Restaging of metastatic urothelial carcinoma TECHNIQUE: Helical CT of the chest, abdomen, and pelvis was performed following intravenous administration of 120 ml of Visipaque 320. Oral contrast was administered. COMPARISON: April 07, 2017. FINDINGS: Chest: Lungs and large airways: There is unchanged interstitial lung disease with subpleural and basilar reticulation. No nodules are seen. Pleura: No effusion. Heart/vasculature: Mild coronary artery calcifications. Acute pulmonary embolus is seen in the apical segmental right upper lobe artery. Lymph nodes/Mediastinum/Jenifer: No lymphadenopathy or mass. There is a small subcentimeter right thyroid lobe nodule. Abdomen/pelvis: Liver: Normal size and attenuation without lesions. Bile ducts: Nondilated. Gallbladder: No calcified gallstones. Normal caliber wall. Pancreas: Normal attenuation without ductal dilatation. Spleen: Normal. Adrenals: Normal. Kidneys: There is a subcentimeter hypodensity in the lower pole of the left kidney which is too small to characterize but likely a simple cyst. Right nephrectomy is again noted. No new nodules are seen in the nephrectomy bed. Vasculature: No aneurysm. Lymph Nodes: ??No enlarged lymph nodes. Bowel: Nondilated, no wall thickening. ?? Peritoneum and mesentery: No ascites, free air, or loculated fluid collection. No mesenteric inflammation. Abdominal wall: Again noted is a wide necked ventral hernia containing loops of transverse colon and small bowel without evidence of bowel obstruction. This hernia again appears to involve a failed hernia repair mesh. Urinary Bladder: Decompressed limiting evaluation. Reproductive organs: No adnexal masses. Uterus is either atrophic or there has been a supracervical hysterectomy. Osseous structures: No suspicious lesions. Procedure Note Jitendra Mendiola MD - 08/09/2017 EXAMINATION: CT CHEST ABDOMEN PELVIS W CONTRAST (GENERIC) CLINICAL HISTORY: Restaging of metastatic urothelial carcinoma TECHNIQUE: Helical CT of the chest, abdomen, and pelvis was performedfollowing intravenous administration of 120 ml of Visipaque 320. Oral contrast was administered. COMPARISON: April 07, 2017. FINDINGS: Chest: Lungs and large airways: There is unchanged interstitial lung diseasewith subpleural and basilar reticulation. No nodules are seen. Pleura: No effusion. Heart/vasculature: Mild coronary artery calcifications. Acute pulmonaryembolus is seen in the apical segmental right upper lobe artery. Lymph nodes/Mediastinum/Jenifer: No lymphadenopathy or mass. There is asmall subcentimeter right thyroid lobe nodule. Abdomen/pelvis: Liver: Normal size and attenuation without lesions. Bile ducts: Nondilated. Gallbladder: No calcified gallstones. Normal caliber wall. Pancreas: Normal attenuation without ductal dilatation. Spleen: Normal. Adrenals: Normal. Kidneys: There is a subcentimeter hypodensity in the lower pole of theleft kidney which is too small to characterize but likely a simple cyst.Right nephrectomy is again noted. No new nodules are seen in the nephrectomybed. Vasculature: No aneurysm. Lymph Nodes: No enlarged lymph nodes. Bowel: Nondilated, no wall thickening. Peritoneum and mesentery: No ascites, free air, or loculated fluidcollection. No mesenteric inflammation. Abdominal wall: Again noted is a wide necked ventral hernia containingloops of transverse colon and small bowel without evidence of bowel obstruction.This hernia again appears to involve a failed hernia repair mesh. Urinary Bladder: Decompressed limiting evaluation. Reproductive organs: No adnexal masses. Uterus is either atrophic or therehas been a supracervical hysterectomy. Osseous structures: No suspicious lesions. IMPRESSION 1. No evidence of recurrent or metastatic disease. 2. Acute segmental pulmonary embolus in the right upper lobe. This wasdiscussed with Dr. Gordon at 2:45 pm. Preliminary report signed by: Jomar Smith at 08/09/2017 2:52 PM I have personally reviewed the image(s) and the residents interpretationand agree with the findings, Jitendra Mendiola at 08/09/2017 2:55 PM 2:55 PM Danny Gordon MD IMG CT ORDERABLES documented [...] Intravenous, ONCE PRN, 1 dose, Starting on Mon08/09/17 at 1400, Until Mon08/09/17 at 1401, Per Protocol, Radiology Contrast, Routine Given 08/09/2017 2:01 PM EST 120 mLs documented in this encounter Care Teams Food And Beverage Controller Relationship Specialty Start Date End Date Dulce Hidalgo MD [facility] [address] [place] [address] PCP - General Family Medicine 09/30/16 documented as of this encounter
--- OUTSIDE RECORDS SUMMARY | 2024-01-11 13:20 | XMS_ITS | Encounter Summary ---
[place] [address] Care Team Providers Care Pipe Fitter Helper Name Role Phone Dulce Hidalgo MD Primary Care Provider [phone] Encounter Details Date Type Department Care Team (Late st Contact Info) Description 08/09/2017 Orders Only Hematology [place] [address] Amanda Shelton, [facility] [address] [place]EMATOLOGY [place] [address] Metastatic urothelial carcinoma Social History Tobacco Use [...] as of this encounter Results * (ABNORMAL) Comprehensive metabolic panel (non-fasting) (08/09/2017 12:05 PM EST) Glucose Lvl 110 65 - 199 mg/dL [facility] Comment:Diabetes: >=200 mg/d L plus symptoms BUN 25(H) 8 - 18 mg/dL [facility] Creatinine 1.32(H) 0.70 - 1.20 mg/dL [facility] Sodium 138 135 - 145 mmol/L [facility] Potassium 4.1 3.5 - 5.0 mmol/L [facility] Comment: Please note: ??Patients with WBC >100,000 may have falsely elevated Potassium levels. ??For accurate Potassium quantification in these patients send serum separator tube (gold top) for subsequent determinations. ??Contact the Clinical Chemistry Laboratory if there are any questions. Chloride 97(L) 98 - 107 mmol/L [facility] CO2 28 22 - 31 mmol/L [facility] Anion Gap 13 5 - 15 mmol/L [facility] Calcium 9.4 8.5 - 10.5 mg/dL [facility] Total Protein 7.1 6.1 - 8.0 gm/dL [facility] Albumin 4.1 3.2 - 5.2 gm/dL [facility] AST 19 0 - 30 unit/L [facility] ALT 13 0 - 30 unit/L [facility] Alk Phos 85 40 - 104 unit/L [facility] Total Bilirubin 0.4 0.2 - 1.3 mg/dL [facility] Estimated GFR 39(L) >=60 [facility] Comment: The reported eGFR should be multiplied by 1.2 for patients. The MDRD is not an appropriate measure of renal function for patients with body mass extremes or in patients with acute kidney failure. http://PillPack.Jybe/DHnkdep http://PillPack.Jybe/DHMCnkf Blood specimen (specimen) 08/09/2017 12:05 PM EST 08/09/2017 12:11 PM EST Narrative Resulting Agency Comment Spec In Lab Amanda Shelton COLLECTION SUPPORT SPECIALIST CHEMISTRY ORDERABL ES [facility] [place] [address] documented in this encounter Visit Diagnoses Diagnosis Metastatic urothelial carcinoma Secondary malignant neoplasm of other urinary organs documented in this encounter Care Teams Pipe Fitter Helper Relationship Specialty Start Date End Date Dulce Hdialgo MD [address] [facility] [address] [place] [address] PCP - General Family Medicine 09/30/16 documented as of this encounter
--- OUTSIDE RECORDS SUMMARY | 2024-01-11 13:20 | XMS_ITS | Encounter Summary ---
[place] [address] Care Team Providers Care Transformation Architect Name Role Phone Dulce Hidalgo MD Primary Care Provider [phone] Reason for Referral * Diagnostic Test (Routine) - Closed Specialty Diagnoses / Procedures Referred By Christal lainez Referred To Contact Radiology Diagnoses Metastatic urothelial carcinoma Procedures CT Chest Abdomen Pelvis w Contrast (Generic) Danny Gordon MD [facility] DR HEMATOLOGY [place] [address] [facility] [place] [address] Referral ID Status Reason Start Date Expiration Date V isits Requested Visits Authorized [id number] Closed Specialty Service Requested 12/05/2017 12/05/2018 1 1 Encounter Details Date Type Department Care Team (Late st Contact Info) Description 12/05/2017 9:00 AM EDT Office Visit Hematology/Oncology at [address] [phone] Danny Gordon MD [facility] HEMATOLOGY [place] [address] (work) Metastatic urothelial carcinoma; Anemia of chronic renal [...] Sign Reading Time Taken Comments Blood Pressure 147/51 12/05/2017 9:07 AM EDT Pulse 63 12/05/2017 9:07 AM EDT Temperature 36.8 ??C (98.2 ??F) 12/05/2017 9:07 AM ED T Respiratory Rate 16 12/05/2017 9:07 AM EDT Oxygen Saturation - - Inhaled Oxygen Concentration - - Weight 129.7 kg (286 lb) 12/05/2017 9:07 AM EDT Height 156 cm (5' 1.42) 12/05/2017 9:07 AM EDT Body Mass Index 53.31 12/05/2017 9:07 AM EDT documented in this encounter Progress Notes * Danny Gordon MD - 12/05/2017 9:00 AM EDT Diagnosis: Metastatic urothelial carcinoma HPI:Isaura Aguiar is [...] in clinic for follow-up appointment. She complains on periodical mild twinges in the abdomen. Overall [place], she feels well PMH: No interval changes [...] drink alcohol, she used to work in [employer], retired 2002, she has 3 children. Family [...] Medications These changes are accurate as of 12/05/17 9:15 AM. If you have any questions, ask [...] Tab Take by mouth daily. Generic drug: soek-[id number]-[id number]-pjer-pec Refills: 0 hydroCHLOROthiazide 25 mg Tab Commonly [...] Cervical, supraclavicular, and axillary nodes normal Neurologic: Normal;station superintendent grossly intact Vitals BP 147/51 (Patient Position: Sitting) Pulse 63 Temp 36.8 ??C (98.2 ??F) (Oral) Resp 16 Ht 156 cm (5' 1.42) Wt 129.7 kg (286 lb) BMI 53.31 kg/m2 Weight Wt Readings from Last 3 Encounters: 12/05/17 129.7 kg (286 lb) 11/14/17 126.1 kg (278 lb) 08/15/17 131.1 kg (289 lb) Pathology: 11/02/16 SYNOPTIC REPORT Specimen ?Procedure: [...] for ISAURA AGUIAR ( ) as of 11/14/2017 09:54 [...] Ref Range: 0 - 30 unit/L 13 Imagin12/01/17 PET scan: IMPRESSION No recurrent or metastatic [...] for small bowel obstruction many years ago. PET scan is negative for metastatic disease. I plan to discuss her case on our tumor board. We will tentatively schedule restaging CT scan in 2-3 months. She was instructed to call us anytime if she develops new pain or does not feel well. # anemia: Hg 11 Will monitor. # Rectal bleeding: follows with Dr. Hidalgo # acute PE: h/o right calf DVT, on Xarelto. follows with Dr. Hidalgo. #Mediport: We will schedule removal Plan: 1. Observation 2. TB discussion 3. Next visit in 10 weeks with CBC, cMP and CT scan CAP. The plan was discussed with the patient [...] colon. The previously described thickening of the lemons of several [...] scan. Danny Gordon MD IMG CT ORDERABLES documented in this encounter Visit Diagnoses Diagnosis Metastatic urothelial carcinoma Secondary malignant neoplasm of other urinary organs Anemia of chronic renal failure, stage 2 (mild) Elevated serum creatinine Other nonspecific findings on examination of blood Metastatic urothelial carcinoma Secondary malignant neoplasm of other urinary organs documented in this encounter Care Teams Transformation Architect Relationship Specialty Start Date End Date Dulce Hidalgo MD [address] [place] [address] PCP - General Family Medicine 09/30/16 documented as of this encounter
--- OUTSIDE RECORDS SUMMARY | 2024-01-11 13:20 | XMS_ITS | Encounter Summary ---
[place] [address] Care Team Providers Care Parts Manager Name Role Phone Dulce Hidalgo MD Primary Care Provider [phone] Encounter Details Date Type Department Care Team (Latest Contact Info) Description 06/14/2017 9:45 AM EST Laboratory Appointment Lab [address] [phone] Metastatic urothelial carcinoma Social History Tobacco Use [...] Priority Date/Time Associated Diagnosis Comments HEMOGRAM Routine 06/14/2017 9:50 AM EST Metastatic urothelial carcinoma DIFFERENTIAL, AUTOMATED Routine 06/14/2017 9:50 AM EST Metastatic urothelial carcinoma CBC (WITH DIFF) Routine 06/14/2017 9:50 AM EST Metastatic urothelial carcinoma COMPREHENSIVE METABOLIC PANEL (NON-FASTING) Routine 06/14/2017 9:50 AM EST Metastatic urothelial carcinoma documented in this encounter Results * (ABNORMAL) Differential, Automated (06/14/2017 9:50 AM EST) Neutrophils % 62.0 % [facility] Neutr Abs (ANC) 2.00 1.70 - 6.10 x10(3)/[facility] Lymphocytes % 13.3 % [facility] Lymphocytes Abs 0.4(L) 0.9 - 3.2 x10(3)/[facility] Monocytes % 22.6 % [facility] Monocyte Abs 0.7 0.3 - 0.9 x10(3)/[facility] Eosinophils % 0.9 % [facility] Eosinophils Abs 0.0 0.0 - 0.4 x10(3)/[facility] Basophils % 0.6 % [facility] Basophils Abs 0.0 0.0 - 0.1 x10(3)/[facility] Immature Gran % 0.60 % [facility] Comment: Immature granulocytes(IG's)percentage and absolute count will include metamyelocytes, myelocytes, and promyelocytes. Blood smears from CBCs yielding IG's will be scanned manually for concordance. If this scan disagrees with the automated IG or if promyelocytes are noted, a manual differential will be performed. [place] Gran Abs 0.02 0.00 - 0.04 x10(3)/[facility] Blood specimen (specimen) 06/14/2017 9:50 AM EST 06/14/2017 9:54 AM EST Narrative Resulting Agency Comment Spec In Lab Danny Gordon MD HEMATOLOGY ORDERABLE S [facility] [place] [address] * (ABNORMAL) Hemogram (06/14/2017 9:50 AM EST) WBC 3.2(L) 4.0 - 9.5 x10(3)/[facility] RBC 3.38(L) 4.00 - 5.21 x10(6)/[facility] Hemoglobin 10.5(L) 11.7 - 15.5 gm/dL [facility] Hematocrit 30.2(L) 35.7 - 45.8 % [facility] MCV 89.3 82.6 - 94.4 fL [facility] MCH 31.1 27.1 - 32.0 pg [facility] MCHC 34.8 31.7 - 35.0 gm/dL [facility] Platelets 107(L) 145 - 357 x10(3)/[facility] RDWSD 53.5(H) 37.0 - 46.0 [facility] RDWCV 18.3(H) 11.5 - 14.1 % [facility] MPV 9.9 7.6 - 12.9 [facility] nRBC % Auto 0.0 % [facility] nRBC Abs Auto 0.000 0.000 - 0.000 x10(3)/[facility] Blood specimen (specimen) 06/14/2017 9:50 AM EST 06/14/2017 9:54 AM EST Narrative Resulting Agency Comment Spec In Lab Danny Gordon MD HEMATOLOGY ORDERABLE S [facility] [place] [address] * (ABNORMAL) Comprehensive metabolic panel (non-fasting) (06/14/2017 9:50 AM EST) Glucose Lvl 124 65 - 199 mg/dL [facility] Comment:Diabetes: >=200 mg/d L plus symptoms BUN 16 8 - 18 mg/dL [facility] Creatinine 1.40(H) 0.70 - 1.20 mg/dL [facility] Sodium 138 135 - 145 mmol/L [facility] Potassium 4.5 3.5 - 5.0 mmol/L [facility] Comment: Please note: ??Patients with WBC >100,000 may have falsely elevated Potassium levels. ??For accurate Potassium quantification in these patients send serum separator tube (gold top) for subsequent determinations. ??Contact the Clinical Chemistry Laboratory if there are any questions. Chloride 97(L) 98 - 107 mmol/L [facility] CO2 27 22 - 31 mmol/L [facility] Anion Gap 14 5 - 15 mmol/L [facility] Calcium 9.4 8.5 - 10.5 mg/dL [facility] Total Protein 6.3 6.1 - 8.0 gm/dL [facility] Albumin 3.6 3.2 - 5.2 gm/dL [facility] AST 26 0 - 30 unit/L [facility] ALT 17 0 - 30 unit/L [facility] Alk Phos 83 40 - 104 unit/L [facility] Total Bilirubin 0.5 0.2 - 1.3 mg/dL [facility] Estimated GFR 37(L) >=60 [facility] Comment: The reported eGFR should be multiplied by 1.2 for patients. The MDRD is not an appropriate measure of renal function for patients with body mass extremes or in patients with acute kidney failure. http://mycirQle.FonJax/DHnkdep http://mycirQle.FonJax/DHMCnkf Blood specimen (specimen) 06/14/2017 9:50 AM EST 06/14/2017 9:54 AM EST Narrative Resulting Agency Comment Spec In Lab Danny Gordon MD CHEMISTRY ORDERABLES [facility] [place] [address] documented in this encounter Visit Diagnoses Diagnosis Metastatic urothelial carcinoma Secondary malignant neoplasm of other urinary organs documented in this encounter Care Teams Parts Manager Relationship Specialty Start Date End Date Gwen, Dulce C, MD [address] [place] [address] PCP - General Family Medicine 09/30/16 documented as of this encounter
--- OUTSIDE RECORDS SUMMARY | 2024-01-11 13:20 | XMS_ITS | Encounter Summary ---
[place] [address] Care Team Providers Care Realty Specialist Name Role Phone Dulce Hidalgo MD Primary Care Provider [phone] Reason for Referral * Diagnostic Test (Routine) - Closed Specialty Diagnoses / Procedures Referred By Contac t Referred To Contact Radiology Diagnoses Metastatic urothelial carcinoma Procedures Danny Moon MD [facility] [place] [address] [facility] [place] [address] Referral ID Status Reason Start Date Expiration Date V isits Requested Visits Authorized [id number] Closed Specialty Service Requested 05/30/2017 05/30/2018 1 1 Reason for Visit * Diagnostic Test (Routine) - Closed Specialty Diagnoses / Procedures Referred By Contac t Referred To Contact Radiology Diagnoses Metastatic urothelial carcinoma Procedures [facility] Danny Spaulding MD [facility] [place] [address] [facility] [place] [address] Referral ID Status Reason Start Date Expiration Date V isits Requested Visits Authorized [id number] Closed Specialty Service Requested 05/30/2017 05/30/2018 1 1 Encounter Details Date Type Department Care Team (Latest Contact Info) Description 06/14/2017 10:03 AM EST - 06/14/2017 11:59 PM EST Hospital [place] [address] Danny Gordon MD [facility] DR HEMATOLOGY AND ONCOLOGY [place] [phone] Pre-op testing; Metastatic urothelial carcinoma Discharge Disposition: Home Social [...] Sign Reading Time Taken Comments Blood Pressure 145/56 06/14/2017 11:45 AM EST Pulse 68 06/14/2017 10:19 AM EST Temperature 36.5 ??C (97.7 ??F) 06/14/2017 11:[address] Respiratory Rate 16 06/14/2017 11:45 AM EST Oxygen Saturation 100% 06/14/2017 11:45 AM EST Inhaled Oxygen Concentration - - Weight - - Height - - Body Mass Index - - documented in this encounter Discharge Instructions * Discharge Instructions* Catie Whiting, LOIS - 06/14/2017 10:55 AM EST [facility] Vascular and Interventional Radiology Discharge Instructions for your Chest Port Removal Activity: ??? Relax for the next 24 hours Diet: ??? Drink plenty of fluids. ??? Resume your regular diet Bandage: There is a sterile dressing consisting of small gauze with a clear dressing (Tegaderm or IV 3000). This dressing should be left in place for 48 hours. If the clear dressing becomes loose youshould place tape over the edges to secure it in place. No tub baths, swimming or whirlpools for 1 week. No showering for 48 hours. Note: If you have steri-strips beneath your dressing, simply allow them to fall off. Do not peel them off. There may be Mchenry-diallo (skin glue) also, allow this to flake off. Do not pick this off. Bathing: Do not take a shower until 48 hours after your port is removed; after this time you may shower with the dressing in place, then remove it and pat your skin dry. After 48 hours, we recommend that you cover the area with THE AQUA GUARD PROVIDED for 1 week while showering, facing away from the shower stream. You may use a bandaid to cover the site after the 48 hours are up if there is any drainage. No tub baths, whirlpools or swimming for one week following port removal. Pain: Apply ice bag to site (s) at 30 minute intervals (30 minutes on and 30 minutes off) for 24 hours?? . May use as needed for pain and/or bruising after 24 hours. When to call your healthcare provider: ??? If you notice bleeding from the incision on your chest, you should lie flat and apply firm pressure over the site for 10-15 minutes, keeping the site covered and call your doctor. If you are still bleeding after 10-15 minutes, reapply pressure, and have someone drive you to the nearest Emergency Department, or call 911. ??? If you develop pain, redness, drainage or swelling at or around chest incision site. ??? If you develop a fever equal to or greater than 101 degrees Fahrenheit. When to call the Interventional Radiology Department: Please call with any questions or concerns. If it is during regular office hours, please call [phone]. If it is after regular office hours, or on weekends or holidays, please call [phone] and ask to speak to the Medical Authorization Specialist regional liaison for Interventional Radiology. You have received medication during your procedure to help lesson anxiety and keep you comfortable.These medications affect judgement and reaction time. We recommend that you do not drive, operate equipment, sign any important documents, or smoke unattended for 24 hours following your procedure. Because of the sedation, be careful on stairs, as you may be unsteady on your feet. You may resume your regular diet as tolerated. IV site -- slight redness, or tenderness is normal, you can use a warm compress. If tenderness and redness increases or foul drainage occurs, please contact your M. D. Revised 06/26/15 documented in this encounter Medications at Time [...] as of this encounter Progress Notes * Catie Whiting RN - 06/14/2017 11:59 PM EST Interventional and Vascular Radiology Post-Procedure Call Name: Isaura Aguiar Age: 76 y.o. Sex; Female Date of : 1940 (home) Telephone Information: PCP Dulce Hidalgo MD [phone] Date/Time of call: June 15, 2017/8:29 AM Procedure: Mediport removal Procedural Provider: Norman Lujan APRN Contact with patient or if not, with whom? Yes Provider notified via phone or email if unable to contact pt: (yes/no) Are you having pain related to your procedure now? No Are you having any swelling or bleeding from the site? No Are you having any other problems related to your procedure? Laying on back for sleeping is uncomfortable Comments: Did you understand the discharge instructions given and do you have any questions? Yes Comments: Do you have any comments about your Nurse or Provider or the care you received? Norman and meliton pretty are wonderful. Nurse Comments: * Catie Whiting RN - 06/14/2017 10:42 AM EST To procedure room 2 via stretcher. Onto stretcher supine. BP, SpO2 in place, and one side rail up. Fentanyl only. * Catie Whiting RN - 06/08/2017 4:47 PM EST Name: ISAURA AGUIAR Date of : 1940 AGE 76 y.o. ?? Address: [address] [place] [id number] (home) Mobile: Telephone Information: ?? Referring Provider: Danny Gordon ? REASON FOR VISIT: Mediport placement ?? Assessment: ??76 y.o.??female??with history of metastatic urothelial carcinoma diagnosed July 2016, status post robotic-assisted laparoscopic right nephroureterectomy on 11/02/2016 with plan for adjuvant chemotherapy. ? We have been consulted for single-lumen chest port placement. ? Plan: ? Where will study be performed? [facility] Reason for exam and clinical history: Completion of chemotherapy Exam/Procedure requested: Removal of MediPort Is the patient on anticoagulant / anitplatelet therapy ? Aspirin ? Anticoagulant/antiplatelet/herbal med. stopped on per MD order. ?? Allergies Allergen Reactions ??? Glucosamine-Chondroitn Sulf.Na Nausea Only ? Intense cramping too ??? Tegaderm [Transparent Dressings] Rash ??? Sulfa (Sulfonamide Antibiotics) Other (See Comments) ? liver damage ? Pertinent PMH: Patient Active Problem List Diagnosis Code ??? 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 Benign essential tremor G25.0 ??? Hypertension I10 ??? Breast cancer, stage 1 C50.919 ??? Stage III Ovarian cancer C56.9 ??? Osteopenia M85.80 ??? SK (seborrheic keratosis) L82.1 ??? AK (actinic keratosis) L57.0 ??? 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 IT band syndrome M76.30 ??? Renal mass N28.89 ??? 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 Metastatic urothelial carcinoma C79.10 ? Pertinent PSH: ? Date/Procedure Med's given/comments 12/21/16: Mediport placement Cefazolin 2 grams IV, Fentanyl 100 mcg IV, midazolam 2 mg IV Tolerated well. ??06/14/17 Mediport removal ??Cefazolin 2 grams IV, Fentanyl 125 mcg IV. Tolerated well. ? Laboratory Results: Lab Results Component Value Date ?? CREATININE 1.16 11/05/2016 Lab Results Component Value Date ?? K 3.3 (L) 11/05/2016 ?? Lab Results Component Value Date ?? PLATELET 174 11/05/2016 ? Medications: Prior to Admission medications Medication Sig Start Date End Date Taking? Authorizing Provider docusate sodium (COLACE) 100 mg Capsule Take 100 mg by mouth 2 times daily. ? PROVIDER, HISTORICAL ondansetron (ZOFRAN) 8 mg Tablet Take 1 tablet by mouth every 8 hours as needed for Nausea. 12/06/16? Danny Gordon MD prochlorperazine (COMPAZINE) 10 mg Tablet Take 1 tablet by mouth every 6 hours as needed for Nausea. 12/06/16 ? Danny Gordon MD Calcium Carbonate-Vitamin D3 600 mg(1,500mg) -400 unit Tab Take 1 tablet by mouth daily. ? PROVIDER, HISTORICAL hydrochlorothiazide (HYDRODIURIL) 25 mg tablet Take 25 mg by mouth daily. ? PROVIDER, HISTORICAL aspirin 81 mg EC tablet Take 81 mg by mouth daily. ? PROVIDER, HISTORICAL atenolol (TENORMIN) 50 mg tablet ?? 08/05/10 ? simvastatin (ZOCOR) 10 mg tablet ?? 08/05/10 ? ACETAMINOPHEN (TYLENOL ORAL) ?? 08/05/10 ?9:35 AM documented in this encounter H&P Notes * Rodrigo Pettit MD - 06/09/2017 12:17 PM EST Images from the original note were not included. INTERVENTIONAL RADIOLOGY FOCUSED H&P and PRE-PROCEDURE NOTE: PCP: Dulce Hidalgo MD Referring Provider: Danny Gordon Planned Procedure: Mediport removal Procedure Indication: Durable venous access no longer needed, completion of chemotherapy Presenting Diagnosis/ Complaint: Isauraclaudy Aguiar is a 76 y.o.??female??with history of metastaticurothelial carcinoma diagnosed July 2016, status post robotic-assisted laparoscopic right nephroureterectomy on 11/02/2016. Pt underwent port placement on 12/21/16 on the right side. Past Medical/Surgical History: Patient Active Problem List Diagnosis Code ??? 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 Benign essential tremor G25.0 ??? Hypertension [...] ??? Neutropenia, drug-induced D70.2 ??? Dehydration E86.0 Past Medical History: Diagnosis Date ??? Benign essential tremor ??? 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 Hypertension ??? Osteopenia 01/22/2011 ??? Stage III Ovarian cancer Medications: Current Outpatient Prescriptions on File Prior to Encounter Medication Sig Dispense Refill ??? PROCHLORPERAZINE MALEATE (COMPAZINE ORAL) Take by mouth. ??? bwbc-rcb-dvh-vtv-clgl-ggeo-pec (FIBER 6) 1,000 mg Tablet Take by [...] otherwise take as needed every 8 hours. 20tablet PRN ??? omeprazole (PRILOSEC) 10 mg Capsule, [...] by mouth 2 times daily as needed. ??? Calcium Carbonate-Vitamin D3 600 mg(1,500mg) -400 unit Tab Take 1 tablet by mouth daily. Reported on 01/03/2017 ??? hydrochlorothiazide (HYDRODIURIL) 25 mg tablet Take 25 mg by mouth daily. ??? aspirin 81 mg EC tablet Take 81 mg by mouth daily. ??? atenolol (TENORMIN) 50 mg tablet ??? simvastatin (ZOCOR) 10 mg tablet ??? ACETAMINOPHEN (TYLENOL ORAL) ??? CAPEcitabine (XELODA) chemo tablet Take 1,800 mg by mouth 2 times daily for 30 days. On the days of radiation. Take with food. Call clinic before starting medication. The prescription should be filled with whatever strength the pharmacy has available to achieve the prescribed dose, preferably taking the smallest number of capsules/tablets prescribed. 60 Doses of treatment to dispense 0 No current facility-administered medications on file prior to encounter. Allergies: Glucosamine-chondroitn sulf.na; Iv 3000 [transparent dressings]; and Sulfa (sulfonamide antibiotics) Social History and Habits: Social History Social History ??? Marital status: Spouse name: N/A ??? Number of children: N/A ??? Years of education: N/A Occupational History ??? retired 2002 [employer] Social History Main Topics ??? Smoking status: Never Smoker ??? Smokeless tobacco: Never Used ??? Alcohol use No ??? Drug use: No ??? Sexual activity: Not on file Other Topics Concern ??? Not on file Social History Narrative Significant Family History: Family History Problem Relation Age of Onset ??? Lung Cancer Brother 72 ??? Ovarian Cancer Other 41 ??? Lung Cancer Maternal Uncle 70's or 80's ??? Breast Cancer Maternal Aunt ??? Prostate Cancer Father 63 Pertinent ROS: as per HPI Labs: Lab Results Component Value Date WBC 7.0 11/05/2016 HCT 32.3 (L) 11/05/2016 PLATELET 174 11/05/2016 BUN 12 11/05/2016 CREATININE 1.16 11/05/2016 Imaging: Physical Exam: Pending (to be performed in angio the day of procedure) ASA: Pending (to be assessed in angio the day of procedure) Mallampati Class: Pending (to be assessed in angio the day of procedure) Assessment: 76 y.o. female w/hx of metastatic urothelial cancer, now completed chemotherapy. Plan: Mediport removal Labs to be performed day of procedure: Plts Medication to STOP: None Sedation: moderate (conscious sedation) Prophylactic antibiotic: Ancef 2 gm IV Additional medications for procedure: Bupivacaine with epi Planned access site: Right upper chest Position: Supine Consent: Pending 06/09/2017 documented in this encounter Plan of Treatment Not on file documented as of this encounter Procedures Procedure Name Priority Date/Time Associated Diagnosis Comments IR MEDIPORT REMOVAL Routine 06/14/2017 1 1:16 AM EST Metastatic urothelial carcinoma documented in this encounter Results * IR Mediport Removal (06/14/2017 11:16 AM EST) Anatomical Region Laterality Modality X-Ray Angiograph y Narrative 07/31/2017 1:42 PM EST IR PROCEDURE NOTE Procedure: Chest port removal Indication for Procedure: Chemotherapy complete, Mediport no longer needed Procedure events and findings: After obtaining informed consent patient was positioned supine on procedure table. ??right neck base and upper chest port site prepped and draped, maximum sterile barrier technique was used throughout. Due to the painful nature of the procedure, patient received split doses of intravenous fentanyl from the IR nurse while pulse, pressure, and oxygen saturation were continuously monitored. Local anesthesia was provided with 1% lidocaine plus 0.25% bupivacaine with epinephrine. A transverse skin incision was made at the level of the port hub. The port was dissected free and removed. The port catheter was withdrawn without incident. ?? The pocket incision was closed with interrupted deep 2-0 resorbable suture, superficial 4-0 resorbable suture and tissue adhesive. Medications: Fentanyl 125 mcg IV 1% Lidocaine <10ccs subcutaneous Antibiotic Prophylaxis: Ancef 2G IV ? Est Blood Loss: <10 cc Complications: ??No immediate Impression: Removal of right chest port and port catheter. Associate Provider: Angel Lujan APRN Attending: Dr. Sanford Danny Gordon MD IMG IR ORDERABLES documented in this encounter Visit Diagnoses Diagnosis Pre-op testing Preoperative examination, unspecified Metastatic urothelial carcinoma Secondary malignant neoplasm of other urinary organs documented in this encounter Administered Medications Inactive Administered Medications - up to 3 most recent administrations Medication Order MAR Action Action Date Dose Rate Site BUpivacaine-EPINEPHrine 0.25 %-1:200,000 injection 10 mL 10 mL (25 mg), Infiltration, ONCE, 1 dose, On Mon06/14/17 at 1100, Warning Vesicant/Irritant Medication , Routine Given 06/14/2017 10:30 AM EST 10 mLs BUpivacaine-EPINEPHrine 0.25 %-1:200,000 injection 1 dose, Starting on Mon06/14/17 at 1024, Until Mon06/14/17 at 1030, Catie Whiting: cabinet override ceFAZolin (ANCEF) 2g in dextrose 5% 100 mL 2 g, Intravenous, ONCE, 1 dose, On Mon06/14/17 at 1030, Administer over 30 Minutes, Redose every 3 hours if CrCl is greater than 20. Redose every 8 hours if CrCl is less than 20., Day of Surgery (Day of Procedure), Indication for (Active or Suspected): Prophylaxis New Bag 06/14/2017 10:30 AM EST 2 g 200 mL/hr fentaNYL 50 mcg/mL multi-dose injection 25-50 mcg, Intravenous, EVERY 5 MIN PRN, Starting on Mon06/14/17 at 1014, Until Mon06/14/17 at 1154, Pain, per unit protocol, - Start dose 50 mcg (reduce dose to 25 mcg if history of sedation sensitivity). - Titration dose 25-50 mcg IV, (based on patient response) every 3 minutes PRN, to maintain procedural pain less than 2 per pain Scale. Maximum dose: 50 mcg/dose, 250 mcg/hour For use in Interventional Radiology (IR) only for procedural sedation with direct provider supervision and verbal order., Angio/IR (Intra-Procedure), Routine Given 06/14/2017 10:55 AM EST 25 mcg Given 06/14/2017 10:51 AM EST 25 mcg Given 06/14/2017 10:48 AM EST 25 mcg lidocaine (XYLOCAINE) 10 mg/mL (1 %) injection 10 mg 10 mg, Subcutaneous, ONCE, 1 dose, On Mon06/14/17 at 1030, For use in Interventional Radiology (IR) only for procedure with direct provider supervision and verbal order., Angio/IR (Intra-Procedure), Routine Given 06/14/2017 10:49 AM EST 10 mg sodium chloride 0.9 % flush 5 mL 5 mL, Intravenous, EVERY 12 HOURS, First dose on Mon06/14/17 at 1030, Until Discontinued, Day of Surgery (Day of Procedure), Routine Given 06/14/2017 10:30 AM EST 5 mLs documented in this encounter Care Teams Realty Specialist Relationship Specialty Start Date End Date Dulce Hidalgo MD [facility] [address] [place] [address] PCP - General Family Medicine 09/30/16 documented as of this encounter
--- OUTSIDE RECORDS SUMMARY | 2024-01-11 13:20 | XMS_ITS | Encounter Summary ---
[place] [address] Care Team Providers Care Real Estate Accountant Name Role Phone Dulce Hidalgo MD Primary Care Provider [phone] Reason for Referral * Diagnostic Test (Routine) - Closed Specialty Diagnoses / Procedures Referred By Contac t Referred To Contact Radiology Diagnoses Metastatic urothelial carcinoma Procedures CT Chest Abdomen Pelvis w Contrast (Generic) Danny Gordon MD [facility] [place] [address] [facility] [place] [address] Referral ID Status Reason Start Date Expiration Date V isits Requested Visits Authorized [id number] Closed Specialty Service Requested 08/15/2017 08/15/2018 1 1 Reason for Visit * Diagnostic Test (Routine) - Closed Specialty Diagnoses / Procedures Referred By Contac t Referred To Contact Radiology Diagnoses Metastatic urothelial carcinoma Procedures CT Chest Abdomen Pelvis w Contrast (Generic) Danny Gordon MD [facility] [place] [address] [facility] [place] [address] Referral ID Status Reason Start Date Expiration Date V isits Requested Visits Authorized [id number] Closed Specialty Service Requested 08/15/2017 08/15/2018 1 1 Encounter Details Date Type Department Care Team (Latest Contact Info) Description 10/31/2017 11:31 AM EDT - 10/31/2017 11:59 PM EDT Hospital Encounter CT Scan at [facility] [place] [address] Danny Gordon MD [facility] [place] [address] Metastatic urothelial carcinoma Discharge Disposition: Home Social [...] CHEST ABDOMEN PELVIS W CONTRAST (GENERIC) Routine 10/31/2017 2:21 PM EDT Metastatic urothelial carcinoma documented in this encounter Results * (ABNORMAL) CT Chest [...] lesions. Resulting Agency Comment Unexpected Finding Danny RICHARDS CT ORDERABLES documented in this encounter Visit Diagnoses Diagnosis Metastatic urothelial carcinoma Secondary malignant neoplasm of other urinary organs documented in this encounter Administered Medications Inactive Administered Medications - up to 3 most recent administrations Medication Order MAR Action Action Date Dose Rate Site iodixanol (VISIPAQUE) 320 mg iodine/mL injection 0-200 mL 0-200 mL, Intravenous, ONCE PRN, 1 dose, Starting on 10/31/17 at 1422, Until 10/31/17 at 1423, Per Protocol, Radiology Contrast, Routine Given 10/31/2017 2:23 PM EDT 125 mLs documented in this encounter Care Teams Real Estate Accountant Relationship Specialty Start Date End Date Dulce Hidalgo MD [facility] [address] [facility] [address] [place] [address] PCP - General Family Medicine 09/30/16 documented as of this encounter
--- OUTSIDE RECORDS SUMMARY | 2024-01-11 13:20 | XMS_ITS | Encounter Summary ---
[place] [address] Care Team Providers Care Rural Route Mail Carrier Name Role Phone Dulce Hidalgo MD Primary Care Provider [phone] Reason for Visit * Reason Onset Date Comments New Medication Request 04/18/2017 Encounter Details Date Type Department Care Team (Late st Contact Info) Description 04/18/2017 Telephone Hematology Oncology at [address] [address] Nathalia Desir RN New Medication Request Social History Tobacco [...] encounter Miscellaneous Notes * Telephone Encounter - Nathalia Desir RN - 04/18/2017 9:30 AM EST [facility] asking for clarification of Zeloda schedule. Reviewed with pharmacist that patient to start radiation on May 01. Will take Zeloda on days of radiation treatment. 5 Days on 2 days off. She will be in touch with the patient. documented in this encounter Plan of Treatment Not on file documented as of this encounter Visit Diagnoses Not on filedocumented in this encounter Care Teams Rural Route Mail Carrier Relationship Specialty Start Date End Date Dulce Hidalgo MD [address] [place] [address] PCP - General Family Medicine 09/30/16 documented as of this encounter
--- OUTSIDE RECORDS SUMMARY | 2024-01-11 13:20 | XMS_ITS | Encounter Summary ---
Author Organization [facility] [place] [address] Care Team Providers Care Paper Roller Name Role Phone Dulce Hidalgo MD Primary Care Provider [phone] Reason for Visit * Reason Comments Follow-up Encounter Details Date Type Department Care Team (Late st Contact Info) Description 09/13/2017 10:40 AM EDT Office [place] [phone] Ariel Do MD [facility] [place] [address] Renal mass; Malignant neoplasm of ureter, unspecified laterality Social [...] Sign Reading Time Taken Comments Blood Pressure 157/76 09/13/2017 11:00 AM EDT Pulse 67 09/13/2017 11:00 AM EDT Temperature 36.7 ??C (98 ??F) 09/13/2017 11:00 AM EDT Respiratory Rate - - Oxygen Saturation 99% 09/13/2017 11:00 AM EDT Inhaled Oxygen Concentration - - Weight - - Height - - Body Mass Index - - documented in this encounter Patient Instructions * Patient Instructions* Gertrude Diaz RN - 09/13/2017 10:40 AM EDT Instructions following Cystoscopy Activity: As tolerated by your comfort level. Fluids: You should increase your water today. Avoid coffee, tea and cola. You do not need to ofphbu47 ounces of water today. Urination: You will likely have a small amount of blood in your urine for the next several days. This is normal; however, if you are passing large amounts of blood clots or are unable to void please call our office at [phone] before 5PM or [phone] after hours. Please call if: * you have copious blood in your urine * fevers greater than 101.3 F * you are unable to void The number for questions is [phone] before 5 PM weekdays and [phone] after 5 PM and weekends. Follow-up: In 3-4 months with a cystoscopy documented in this encounter Progress Notes * Ariel Do MD - 09/13/2017 10:40 AM EDT Patient Name: Isaura Aguiar Date of Service: 09/13/2017 Primary Care Provider: Dulce Hidalgo MD Reason for Visit: Isaura Aguiar is a 76 y.o. 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 She completed the following adjuvant therapy - 12/27/16 - 02/28/17 3 cycles of cisplatin and gemcitabine -05/01 - 06/06/17 concurrent XRT and Xeloda 1800 mg BID She has no urinary symptoms. . No hematuria, fevers, chills, nausea, vomiting. Bowel movements are back to normal, about once or twice per day. She is walking around well. She has her appetite back and is eating well. Her data was presented at [facility] last week and the recommendation was for cisplatin adjuvant chemotherapy and possible radiation. Patient Active Problem List Diagnosis ??? 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 The patient has been for [...] fragments, dissolving. 09/2017: Absent RUO. No tumors Lab values are reviewed Impression: #1: Metastatic high grade Urothelial cancer of the right ureter, pT3pN2, s/p right nephroureteretcomy, negative bladder cuff margin #2: Stage 3a CRI #3: Morbid obesity #4: BRAC2 mutation #5: Moderate co-morbidity #6: Incisional hernia through extraction site. Plan: Discussed hernia. It is not bothering her substantially. It is wide mouthed and reducible. We will reassess at her next visit. Cancer f/u with Dr Mueller 6 months with a cystoscopy Ariel Do documented in this encounter Procedure Notes * Ariel Do MD - 09/13/2017 10:40 AM EDTAssociated Order(s): CYSTOSCOPY Pre-Procedure Diagnose(s): Renal mass Procedure: Flexible Cystoscopy Surgeon: Ariel Do Preoperative [...] Priority Date/Time Associated Diagnosis Comments CYSTOSCOPY Routine 09/16/2017 11:13 AM EDT Renal mass documented in this encounter Results * Cystoscopy (09/16/2017 11:13 AM EDT) Narrative Ariel Do MD - 09/16/2017 11:13 AM EDT Ariel Do MD ? 09/16/2017 11:13 AM Procedure: Flexible Cystoscopy Surgeon: Ariel Do [...] documented in this encounter Visit Diagnoses Diagnosis Renal mass Unspecified disorder of kidney and ureter Malignant neoplasm of ureter, unspecified laterality documented in this encounter Care Teams Paper Roller Relationship Specialty Start Date End Date Dulce Hidalgo MD [facility] [address] [place] [address] PCP - General Family Medicine 09/30/16 documented as of this encounter
--- OUTSIDE RECORDS SUMMARY | 2024-01-11 13:20 | XMS_ITS | Encounter Summary ---
[place] [address] Care Team Providers Care Gas Meter Installer Name Role Phone Dulce Hidalgo MD Primary Care Provider [phone] Encounter Details Date Type Department Care Team (Late st Contact Info) Description 06/08/2017 Notes Only Radiation Oncology at [address] [phone] German Greene MD [address] [place] [address] DR RADIATION ONCOLOGY [place], [place] [id number] Social History Tobacco Use Types Packs/Day Years Used Date Smoking Tobacco: Never Smokeless Tobacco: Never Alcohol Use Standard Drinks/Week Comments No 0 (1 standard drink = 0.6 oz pur e alcohol) Sex and Gender Information Value Date Recorded Sex Assigned at Not on file Gender Identity Not on file Sexual Orientation Not on file documented as of this encounter Progress Notes * German Greene MD - 06/08/2017 12:01 PM EST Images from the original note were not included. RADIATION THERAPY COMPLETION NOTE IDENTIFICATION: Isaura Aguiar is a 76 y.o. female diagnosed with St IV TCC of the right ureter who recently completed radiotherapy at the [facility] in [place], [place]. Details of her radiation treatment course are as below. TREATMENT INTENT: Definitive (Curative) REFERRING PROVIDER: Dr. Do RADIATION TREATMENT DETAILS: Initial Treatment Site Right Pelvis / ureter bed Prescribed Dose 45 Gy in 25 fractions Boost Treatment Site Tumor bed Prescribed Dose 55 Gy in 25 fractions Treatment Start Date 05/01/17 Treatment Completion Date 06/06/17 Film Recordist Pascual from Current Plan (minimum 45 Gy isodose volume shown): SPECIAL TECHNICAL CONSIDERATIONS: The patient was simulated on a CT simulator. Customized pascual were designed to encompass the target volume and identify organs at risk and with the intent of minimizing normal tissue toxicity. TREATMENT TOLERANCE: With regard to side effects noted during radiotherapy, the patient tolerated treatment extremely well with no significant acute (Grade 3 or above) toxicity. TREATMENT RESPONSE: The patient's response to treatment was undetermined, as she was largely asymptomatic at the time of presentation. FOLLOWUP: Follow-up visit with Radiation Oncology in [facility] is scheduled for 06/29/17 for clinical symptom check; she has received instructions to call this office or seek the help of the localemergency room if any further problems should arise prior to followup. documented in this encounter Plan of Treatment Not on file documented as of this encounter Visit Diagnoses Not on filedocumented in this encounter Care Teams Gas Meter Installer Relationship Specialty Start Date End Date Dulce Hidalgo MD [address] [place] [address] PCP - General Family Medicine 09/30/16 documented as of this encounter
--- OUTSIDE RECORDS SUMMARY | 2024-01-11 13:20 | XMS_ITS | Encounter Summary ---
[place] [address] Care Team Providers Care Associate Director Of Nursing Name Role Phone Dulce Hidalgo MD Primary Care Provider [phone] Reason for Referral * Diagnostic Test (Routine) - Closed Specialty Diagnoses / Procedures Referred By Contac t Referred To Contact Radiology Diagnoses Metastatic urothelial carcinoma Procedures CT Chest Abdomen Pelvis w Contrast (Generic) Danny Gordon MD [facility] [place] [address] [facility] [place] [address] Referral ID Status Reason Start Date Expiration Date V isits Requested Visits Authorized [id number] Closed Specialty Service Requested 05/30/2017 05/30/2018 1 1 * Diagnostic Test (Routine) - Closed Specialty Diagnoses / Procedures Referred By Contmaury t Referred To Contact Radiology Diagnoses Metastatic urothelial carcinoma Procedures IR Mediport Removal Danny Gordon MD [facility] [place] [address] [facility] [place] [address] Referral ID Status Reason Start Date Expiration Date V isits Requested Visits Authorized [id number] Closed Specialty Service Requested 05/30/2017 05/30/2018 1 1 Reason for Visit * Reason Comments Follow-up Encounter Details Date Type Department Care Team (Late st Contact Info) Description 05/30/2017 10:30 AM EST Office Visit Hematology/Oncology at [address] [phone] Danny Gordon MD [facility] [address] [place] [address] Metastatic urothelial carcinoma; Anemia of chronic renal [...] Sign Reading Time Taken Comments Blood Pressure 147/46 05/30/2017 10:49 AM EST Pulse 62 05/30/2017 10:49 AM EST Temperature 36.4 ??C (97.5 ??F) 05/30/2017 10:[address] Respiratory Rate 16 05/30/2017 10:49 AM EST Oxygen Saturation - - Inhaled Oxygen Concentration - - Weight 132.9 kg (293 lb) 05/30/2017 10:49 AM EST Height 156 cm (5' 1.42) 05/30/2017 10:49 AM EST Body Mass Index 54.61 05/30/2017 10:49 AM EST documented in this encounter Progress Notes * Danny Gordon MD - 05/30/2017 10:30 AM EST Diagnosis: Metastatic urothelial carcinoma HPI:Iasura Aguiar is 76 y.o.F referred to us by Yara Llamas for a consultation on new diagnosis of metastatic urothelial carcinoma. She initially presented in February right flank pain which led to CT [...] XRT and chemotherapy with capecitabine. She had loose BM 3-4 times a day 1-2 times a week..Isaura complains of mild nausea. Denies any fever, chills, nausea, vomiting or [...] drink alcohol, she used to work in [employer], retired 2002, she has 3 children. Family [...] Medications These changes are accurate as of: 05/30/17 10:57 AM. If you have any questions, ask [...] Tab Take by mouth daily. Generic drug: hfjy-foj-lpr-eau-kyjb-yfar-pec Refills: 0 hydroCHLOROthiazide 25 mg Tab Commonly [...] Cervical, supraclavicular, and axillary nodes normal Neurologic: Normal;gasoline finisher grossly intact Vitals BP 147/46 (Patient Position: Sitting) Pulse 62 Temp 36.4 ??C (97.5 ??F) (Oral) Resp 16 Ht 156 cm (5' 1.42) Wt (!) 132.9 kg (293 lb) BMI 54.61 kg/m2 Weight Wt Readings from Last 3 Encounters: 05/30/17 (!) 132.9 kg (293 lb) 05/25/17 (!) 134.6 kg (296 lb 12.8 oz) 05/23/17 (!) 135.2 kg (298 lb) Pathology: 11/02/16 SYNOPTIC REPORT Specimen ?Procedure: [...] B10, B14 Normal Block(s): ?? B23 Labs: s: WBC is 3.44, hemoglobin 11.0, platelet count 158, ANC 2.45, sodium 132, potassium 4.4, BUN18, creatinine 1.26, calcium 9.3, magnesium 1.7, total bilirubin 0.5, AST 16, ALT 16 alkaline phosphatase 74, albumin 3.4 Imagin04/07/17 PET scan: IMPRESSION No evidence of [...] cisplatin 35 mg/m2 gemcitabine 1000 mg per [place] squared days 1 and 8. Mrs. Aguiar completed 3 cycles of cisplatin and gemcitabine. Futher chemotherapy was discontinued due to kidney toxicity. Last PET scan was negative for metastatic disease. Mrs. Lucia is tolerating concurrent radiation and capecitabine reasonably well with mild diarrheaand intermittent loose bowel movements. Overall landaverde, she feels fine. Continue current regimen. Herlast day of concurrent chemoradiation will be on June 06. I will see her back with blood work and surveillance CT scan in about 2 and 1/2 months. # anemia: secondary to chemotherapy. Hg 11 Will monitor. # Rectal bleeding: follows with Dr. Hidalgo # Swelling and redness of right lower leg: right calf DVT, on Xarelto. Will follow with Dr. Hidalgo. #Mediport: We will schedule removal Plan: 1.Continue Concurrent XRT And capecitibine. 2. Removal of mediport 3. CBC, cMP and CT scan in 2 months 4. Next visit in 2 and1/2 months The plan was discussed with the patient in details. All questions were answered to patient's satisfaction. documented in this encounter Plan of Treatment Not on file documented as of this encounter Procedures Procedure Name Priority Date/Time Associated Diagnosis Comments LAB SCAN 05/30/2017 12:00 AM EST documented in this encounter Results * CT [...] 2:55 PM 2:55 PM Danny Gordon MD [facility] CT ORDERABLES * IR Mediport Removal (06/14/2017 11:16 AM [...] [place] Danny Gordon MD IMG IR ORDERABLES * (ABNORMAL) Comprehensive metabolic panel (non-fasting) (06/14/2017 9:50 AM EST) Glucose Lvl 124 65 - 199 mg/dL [facility] Comment:Diabetes: >=200 mg/d L plus symptoms BUN 16 8 - 18 mg/dL [facility] Creatinine 1.40(H) 0.70 - 1.20 mg/dL [facility] Sodium 138 135 - 145 mmol/L [facility] Potassium 4.5 3.5 - 5.0 mmol/L [facility] Comment: Please note: ??Patients with WBC >100,000 may have falsely elevated Potassium levels. ??For accurate Potassium quantification in these patients send serum separator tube (gold top) for subsequent determinations. ??Contact the Clinical Chemistry Laboratory if there are any questions. Chloride 97(L) 98 - 107 mmol/L [facility] CO2 27 22 - 31 mmol/L [facility] Anion Gap 14 5 - 15 mmol/L [facility] Calcium 9.4 8.5 - 10.5 mg/dL [facility] Total Protein 6.3 6.1 - 8.0 gm/dL [facility] Albumin 3.6 3.2 - 5.2 gm/dL [facility] AST 26 0 - 30 unit/L [facility] ALT 17 0 - 30 unit/L [facility] Alk Phos 83 40 - 104 unit/L [facility] Total Bilirubin 0.5 0.2 - 1.3 mg/dL [facility] Estimated GFR 37(L) >=60 [facility] Comment: The reported eGFR should be multiplied by 1.2 for patients. The MDRD is not an appropriate measure of renal function for patients with body mass extremes or in patients with acute kidney failure. [email or web address].Be [email or web address]/[email or web address] [email or web address].Be [email or web address]/DHMCnkf Blood specimen (specimen) 06/14/2017 9:50 AM EST 06/14/2017 9:54 AM EST Narrative Resulting Agency Comment Spec In Lab Danny Gordon MD CHEMISTRY ORDERABLES [facility] [place] [address] * SCAN DOC: LAB (05/30/2017 12:00 AM EST) Narrative 05/30/2017 12:00 AM EST Ordered by an unspecified provider. Scanning Provider MEDIA MGR SCAN EXT O RDR/RSLT documented in this encounter Visit Diagnoses Diagnosis Metastatic urothelial carcinoma Secondary malignant neoplasm of other urinary organs Anemia of chronic renal failure, stage 2 (mild) Diarrhea, unspecified type Pre-op testing Preoperative examination, unspecified Metastatic urothelial carcinoma Secondary malignant neoplasm of other urinary organs Metastatic urothelial carcinoma Secondary malignant neoplasm of other urinary organs documented in this encounter Care Teams Associate Director Of Nursing Relationship Specialty Start Date End Date Dulce Hidalgo MD [address] [place] [address] PCP - General Family Medicine 09/30/16 documented as of this encounter
--- OUTSIDE RECORDS SUMMARY | 2024-01-11 13:21 | XMS_ITS | Encounter Summary ---
[place] [address] Care Team Providers Care Back Winder Name Role Phone Dulce Hidalgo MD Primary Care Provider [phone] Reason for Visit * Reason Comments IV Access Mediport flush only Encounter Details Date Type Department Care Team (Late st Contact Info) Description 03/14/2017 1:30 PM EDT Infusion Hematology Oncology at [address] [phone] Metastatic urothelial carcinoma Social History Tobacco Use [...] as of this encounter Progress Notes * Kadi Menezes RN - 03/14/2017 1:30 PM EDT INFUSION THERAPY ADMINISTRATION NOTES DIAGNOSIS: 1. Metastatic urothelial carcinoma REASON FOR VISIT: MEDIPORT FLUSH ONLY IV ACCESS: Mediport GAUGE: 19G BLOOD RETURN: yes ANY S/S OF INFECTION/EXTRAVASATIONS: no signs of IV complications observed IV FLUSHED WITH: 20cc NS and 500 units Heparin IV DISCONTINUED: yes ASSESSMENT: Patient tolerated treatment well. PLAN: Return to clinic per routine. documented in this encounter Plan of Treatment Not on file documented as of this encounter Procedures Procedure Name Priority Date/Time Associated Diagnosis Comments ULTRASOUND SCAN (SCAN) 03/14/2017 12:00 AM EDT documented in this encounter Results * SCAN DOC: ULTRASOUND (03/14/2017 12:00 AM EDT) Anatomical Region Laterality Modality Other Narrative 03/14/2017 12:00 AM EDT Ordered by an unspecified provider. Scanning Provider MEDIA MGR SCAN EXT O RDR/RSLT documented in this encounter Visit Diagnoses Diagnosis Metastatic urothelial carcinoma Secondary malignant neoplasm of other urinary organs documented in this encounter Care Teams Back Winder Relationship Specialty Start Date End Date Dulce Hidalgo MD [address] [place] [address] PCP - General Family Medicine 09/30/16 documented as of this encounter
--- OUTSIDE RECORDS SUMMARY | 2024-01-11 13:21 | XMS_ITS | Encounter Summary ---
Author Organization [facility] [place] [address] Care Team Providers Care Core Mounter Name Role Phone Dulce Hidalgo MD Primary Care Provider [phone] Reason for Visit * Reason Comments Dehydration * Treatment/Therapy Plan Authorization (Routine) - Closed Specialty Diagnoses / Procedures Referred By Contmaury t Referred To Contact Diagnoses Metastatic urothelial carcinoma Danny Gordon MD [facility] [address] [place] [address] St Hem Onc Office [address] [place] [phone] Referral ID Status Reason Start Date Expiration Date Visits Re quested Visits Authorized [id number] Closed 12/06/2016 12/06/2017 1 1 Encounter Details Date Type Department Care Team (Late st Contact Info) Description 03/06/2017 9:00 AM EDT Infusion Hematology Oncology at [address] [phone] Dehydration; Metastatic urothelial carcinoma Social History Tobacco Use [...] Sign Reading Time Taken Comments Blood Pressure 132/51 03/06/2017 9:24 AM EDT Pulse 62 03/06/2017 9:24 AM EDT Temperature 36.7 ??C (98.1 ??F) 03/06/2017 9:24 AM ED T Respiratory Rate 18 03/06/2017 9:24 AM EDT Oxygen Saturation 100% 03/06/2017 9:24 AM EDT Inhaled Oxygen Concentration - - Weight 136.1 kg (300 lb) 03/06/2017 9:24 AM EDT Height 156 cm (5' 1.42) 03/06/2017 9:24 AM EDT copied Body Mass Index 55.92 03/06/2017 9:24 AM EDT documented in this encounter Progress Notes * Stiven Robbins, RN - 03/06/2017 9:00 AM EDT INFUSION THERAPY ADMINISTRATION NOTES DIAGNOSIS: Ovarian CA REASON FOR VISIT: Hydration SUBJECTIVE Isaura offers no complaints. OBJECTIVE LAB DATA: N/A REACTIONS (DESCRIPTION, TIME, INTERVENTION AND EFFECTIVENESS)none ASSESSMENT Isaura was awake, alert and she tolerated treatment well. Port flushed with 20ml NS and 500 unitsHeparin then de-accessed. PLAN Return to clinic per routine. documented in this encounter Plan of Treatment Not on file documented as of this encounter Visit Diagnoses Diagnosis Dehydration Metastatic urothelial carcinoma Secondary malignant neoplasm of other urinary organs documented in this encounter Administered Medications Inactive Administered Medications - up to 3 most recent administrations Medication Order MAR Action Action Date Dose Rate Site sodium chloride 0.9% infusion 1,000 mL, at 500 mL/hr, Intravenous, CONTINUOUS, Starting on Mon03/06/17 at 0945, Until Mon03/06/17 at 1430 New Bag 03/06/2017 9:45 AM EDT 1,000 mLs 500 mL/hr documented in this encounter Care Teams Core Mounter Relationship Specialty Start Date End Date Dulce Hidalgo MD [facility] [address] [place] [address] PCP - General Family Medicine 09/30/16 documented as of this encounter
--- OUTSIDE RECORDS SUMMARY | 2024-01-11 13:21 | XMS_ITS | Encounter Summary ---
[place] [address] Care Team Providers Care Residential Tech Name Role Phone Dulce Hidalgo MD Primary Care Provider [phone] Reason for Visit * Reason Comments IV Access Mediport flush; blayne tment deferred today Encounter Details Date Type Department Care Team (Late st Contact Info) Description 02/21/2017 9:30 AM EDT Infusion Hematology Oncology at [address] [phone] Ovarian cancer, unspecified laterality Social History Tobacco Use Types [...] Progress Notes * Kadi Menezes RN - 02/21/2017 9:30 AM EDT INFUSION THERAPY ADMINISTRATION NOTESV DIAGNOSIS: No diagnosis found. REASON FOR VISIT: MEDIPORT FLUSH ONLY IV ACCESS: Mediport GAUGE: 19G BLOOD RETURN: yes ANY S/S OF INFECTION/EXTRAVASATIONS: Skin over mediport slightly reddened but not swollen or painful to touch. IV FLUSHED WITH: 20cc NS and 500 units Heparin IV DISCONTINUED: yes ASSESSMENT: Vital signs & labs reviewed. Patient denies having chills or fever. Labs results reported to Dr. Gordon & Cycle 3, Day 8 of Gemzar/Cisplatin held today. PLAN: Return to clinic next week for appointment with Dr. Gordon. Patient agreed to monitor mediport site for any increased redness or pain and observe precautions for low ANC. documented in this encounter Plan of Treatment Not on file documented as of this encounter Visit Diagnoses Diagnosis Ovarian cancer, unspecified laterality documented in this encounter Care Teams Residential Tech Relationship Specialty Start Date End Date Dulce Hidalgo MD [facility] [address] [facility] [place] [address] PCP - General Family Medicine 09/30/16 documented as of this encounter
--- OUTSIDE RECORDS SUMMARY | 2024-01-11 13:21 | XMS_ITS | Encounter Summary ---
Author Organization [facility] Address [facility] [place] [address] Care Team Providers Care Blind Eyeletter Name Role Phone Dulce Hidalgo MD Primary Care Provider [phone] Reason for Visit * Reason Comments Chemotherapy Cycle 3, Day 1 Gemza r/Cisplatin * Treatment/Therapy Plan Authorization (Routine) - Closed Specialty Diagnoses / Procedures Referred By Christal lainez Referred To Contact Diagnoses Metastatic urothelial carcinoma Danny Gordon MD [facility] [address] HEMATOLOGY [place] [address] [facility] [address] [place] [phone] Referral ID Status Reason Start Date Expiration Date Visits Re quested Visits Authorized [id number] Closed 12/06/2016 12/06/2017 1 1 Encounter Details Date Type Department Care Team (Late st Contact Info) Description 02/14/2017 10:00 AM EDT Infusion Hematology Oncology at [address] [phone] Neutropenia, drug-induced; Metastatic urothelial carcinoma Social History Tobacco Use [...] as of this encounter Progress Notes * Muriel Blackmon RN - 02/14/2017 10:00 AM EDT INFUSION THERAPY ADMINISTRATION NOTES DIAGNOSIS: Urothelial Cancer CYCLE #:3, Day 1 REASON FOR VISIT: Gemzar/Cisplatin SUBJECTIVE Isaura offers no complaints. OBJECTIVE LAB DATA: WBC 4.78, HGB 9.5, HCT 29.5, PLT 297, ANC 2.73, NA 135, BUN 28, Cr 1.49 IV ACCESS: mediport accessed at [facility], blood return present and flushes easily. Pre administration: Chemotherapy orders independently verified for drug name, route, and dosage per patient's height, weight and BSA by Muriel Blackmon RN & Dee Mccarty [facility]. REACTIONS (DESCRIPTION, TIME, INTERVENTION AND EFFECTIVENESS) none ASSESSMENT Isaura was awake, alert and tolerated treatment well. PLAN Return to clinic per routine. documented in this encounter Plan of Treatment Not on file documented as of this encounter Procedures Procedure Name Priority Date/Time Associated Diagnosis Comments LAB SCAN 02/14/2017 12:00 AM EDT documented in this encounter Results * SCAN DOC: LAB (02/14/2017 12:00 AM EDT) Narrative 02/14/2017 12:00 AM EDT Ordered by an unspecified provider. Scanning Provider MEDIA MGR SCAN EXT O RDR/RSLT documented in this encounter Visit Diagnoses Diagnosis Neutropenia, drug-induced Drug induced neutropenia Metastatic urothelial carcinoma Secondary malignant neoplasm of other urinary organs documented in this encounter Administered Medications Inactive Administered Medications - up to 3 most recent administrations Medication Order MAR Action Action Date Dose Rate Site CISplatin (PLATINOL) 84 mg in sodium chloride 0.9% 334 mL chemo infusion 84 mg (35 mg/m2/dose ? 2.4 m2 Treatment Plan BSA from Recorded weight), Intravenous, ONCE, 1 dose, On Mon02/14/17 at 1215, Administer over 120 Minutes New Bag 02/14/2017 1:29 PM EDT 84 mg 167 mL/hr dexamethasone (DECADRON) tablet 10 mg 10 mg, Oral, ONCE, 1 dose, On Mon02/14/17 at 1115, Administer prior to chemotherapy, Routine Given 02/14/2017 12:06 PM EDT 10 mg famotidine (PEPCID) injection 20 mg 20 mg, Intravenous, ONCE, 1 dose, On Mon02/14/17 at 1115 Given 02/14/2017 12:09 PM EDT 20 mg fosaprepitant (EMEND) 150 mg in sodium chloride 0.9% 155 mL infusion 150 mg, Intravenous, ONCE, 1 dose, On Mon02/14/17 at 1115, Administer over 30 Minutes, Administer prior to chemotherapy. New Bag 02/14/2017 12:10 PM EDT 150 mg 310 mL/hr GEMcitabine 2,400 mg in sodium chloride 0.9% 313.1579 mL chemo infusion 2,400 mg (1,000 mg/m2/dose ? 2.4 m2 Treatment Plan BSA from Recorded weight), Intravenous, ONCE, 1 dose, On Mon02/14/17 at 1215, Administer over 30 Minutes New Bag 02/14/2017 12:51 PM EDT 2,400 mg 626 mL/hr heparin, porcine 100 unit/mL flush 500 Units 500 Units, Intravenous, ONCE PRN, Starting on Mon02/14/17 at 1047, Until Mon02/14/17 at 1850, Line Care, Refer to Intravenous (IV) Procedure: Accessing Implanted Vascular Access Devices (354) procedure and/or Intravenous (IV) Job Aid: Adult Flushing & Catheter Care (5638) job aid for additional information regarding guidelines and administration., Routine Given 02/14/2017 4:49 PM EDT 500 Units magnesium sulfate 1g in dextrose 5% 100mL 1 g, Intravenous, EVERY HOUR, 2 doses, First dose on Mon02/14/17 at 1445, Last dose on Mon02/14/17 at 1600, Administer over 60 Minutes, Total dose is 2 grams. Post - CISplatin New Bag 02/14/2017 3:40 PM EDT 1 g 100 mL/hr New Bag 02/14/2017 2:42 PM EDT 1 g 100 mL/hr palonosetron (ALOXI) injection 0.25 mg 0.25 mg, Intravenous, ONCE, 1 dose, On Mon02/14/17 at 1115, Administer over 30 seconds. Administer prior to chemotherapy, Routine Given 02/14/2017 12:07 PM EDT 0.25 mg sodium chloride 0.9 % flush 5-20 mL 5-20 mL, Intravenous, EVERY 1 MIN PRN, Starting on Mon02/14/17 at 1047, Until Mon02/14/17 at 1850, Line Care, Flush pertains to all indwelling lines. Flush per protocol found in the job aid using the link provided on this medication record. Refer to Intravenous (IV) Job Aid: Adult Flushing & Catheter Care (2405) job aid for additional information regarding guidelines and administration., Routine Given 02/14/2017 4:49 PM EDT 20 mLs sodium chloride 0.9% infusion 1,000 mL, at 500 mL/hr, Intravenous, CONTINUOUS, Starting on Mon02/14/17 at 1115, Until Mon02/14/17 at 1314, Pre CISplatin New Bag 02/14/2017 10:45 AM EDT 1,000 mLs 500 mL/hr sodium chloride 0.9% with potassium chloride 20 mEq infusion 1,000 mL, Intravenous, CONTINUOUS, Starting on Mon02/14/17 at 1445, Until Mon02/14/17 at 1644, Post - CISplatin New Bag 02/14/2017 2:39 PM EDT 1,000 mLs 500 m L/hr documented in this encounter Care Teams Blind Eyeletter Relationship Specialty Start Date End Date Dulce Hidalgo MD [facility] [address] [place] [address] PCP - General Family Medicine 09/30/16 documented as of this encounter
--- OUTSIDE RECORDS SUMMARY | 2024-01-11 13:21 | XMS_ITS | Encounter Summary ---
[place] [address] Care Team Providers Care Flight Test Shop Mechanic Name Role Phone Dulce Hidalgo MD Primary Care Provider [phone] Reason for Referral * Diagnostic Test (Routine) - Closed Specialty Diagnoses / Procedures Referred By Contac t Referred To Contact Radiology Diagnoses Metastatic urothelial carcinoma Procedures IR Mediport Placement / Exchange Danny Gordon MD [facility] [place] [address] [place] [address] Referral ID Status Reason Start Date Expiration Date V isits Requested Visits Authorized [id number] Closed Specialty Service Requested 12/06/2016 12/06/2017 1 1 Reason for Visit * Diagnostic Test (Routine) - Closed Specialty Diagnoses / Procedures Referred By Contac t Referred To Contact Radiology Diagnoses Metastatic urothelial carcinoma Procedures IR Mediport Placement / Exchange Danny Gordon MD [facility] [place] [address] [facility] [place] [address] Referral ID Status Reason Start Date Expiration Date V isits Requested Visits Authorized [id number] Closed Specialty Service Requested 12/06/2016 12/06/2017 1 1 Encounter Details Date Type Department Care Team (Latest Contact Info) Description 12/21/2016 7:14 AM EDT - 12/21/2016 10:32 AM EDT Hospital [place] [address] Danny Gordon MD [facility] [place] [address] Metastatic urothelial carcinoma Discharge Disposition: [...] Sign Reading Time Taken Comments Blood Pressure 133/43 12/21/2016 10:15 AM EDT Pulse 56 12/21/2016 9:40 AM EDT Temperature 35.6 ??C (96 ??F) 12/21/2016 9:56 AM EDT Respiratory Rate 16 12/21/2016 10:15 AM EDT Oxygen Saturation 98% 12/21/2016 10:15 AM EDT Inhaled Oxygen Concentration - - Weight - - Height - - Body Mass Index - - documented in this encounter Discharge Instructions * Discharge Instructions* Kadi Griffith RN - 12/21/2016 10:10 AM EDT Images from the original note were not included. [facility] Department of Vascular and Interventional Radiology Discharge Instructions for your Chest Port You have received a ???Power Port?? , which provides access for infusions and blood draws. What makes this a ???Power Port?? is the unique ability to ???power inject?? contrast (intravenous dye) through the port when getting a CT scan, which produces superior images (pictures). Patients who don???t have these special ports need to have an IV started if they need dye injected for their CT scan. Your port is printed with the letters ???CT?? which can be detected by x- ray to identify it as a ???Power Port?? . You will be provided with an ID card stating the fish hatchery supervisor and type of port you have. Please carry this with you in a safe place. Bandage: There is a sterile dressing over the port site consisting of small gauze with a clear dressing (Tegaderm or [id number] ). This dressing should be left in place for 48 hours. If the clear dressing becomes loose you should place tape over the edges to secure it in place. Note: If you have steri-strips beneath your dressing, simply allow them to fall off. Do not peel them off. Pain: Apply ice bag to site (s) at 30 minute intervals (30 minutes on and 30 minutes off) for 24 hours?? . May use as needed for pain and/or bruising after 24 hours. Bathing: Do not take a shower until 48 hours after your port is placed; after this time you may shower with the dressing in place, then remove it and pat your skin dry. After 48 hours, we recommend that you cover the area with THE AQUA GUARD PROVIDED for 1 week while showering, facing away from theshower stream. You may use a bandaid to cover the site after the 48 hours are up if there is any drainage. No tub baths, whirlpools or swimming for one week following port placement. What to expect when your port is accessed: 1. You may feel tenderness the first few times it is accessed but generally this subsides over time. Ask your healthcare provider to use a local anesthetic on the site if discomfort is a problem for you. You may ask for a prescription for a topical cream (EMLA) from your clinician; you may apply athome prior to your appointments, to help numb the skin over your port. 2. The clinician should be wearing sterile gloves and a mask during the access procedure. Anyone inthe room with you should also have a mask on. 3. The skin over and 2 inches around the port should be cleaned with a disinfectant 4. Tell the clinician if you would like the skin numbed (lidocaine) before the access needle is placed. 5. Unless you are unable to take heparin (blood thinner), the port should be injected with a heparin solution before deaccess (at end of each treatment or blood draw). When to call your healthcare provider: ??? If you notice bleeding from the puncture site in your neck, or from the port incision on your chest, you should apply firm pressure over the site for 10-15 minutes, keeping the site covered. Callif you are still bleeding after 10-15 minutes. ??? If you develop pain, redness, drainage or swelling at or around the port site, or the puncture site in the neck ??? If you develop fever (elevation of more than 2 degrees or greater than 101F) and/or shaking chills When to call the Interventional Radiology Department: Please call with any questions or concerns. If it is during regular office hours, please call [phone]. If it is after regular office hours, or on weekends or holidays, please call [phone] and ask to speak to the Forensic Medical Examiner application packaging consultant for Interventional Radiology. XXX You have received medication during your procedure to help lesson anxiety and keep you comfortable. These medications affect judgement and reaction time. We [...] TIME OF SCAN if needed 0 12/15/2016 docusate sodium (COLACE) 100 mg Capsule Take 100 mg by mouth as needed. Calcium Carbonate-Vitamin D3 600 mg(1,500mg) -400 unit Tab Take 1 tablet by mouth daily. Reported on 01/03/2017 ACETAMINOPHEN (TYLENOL ORAL) Take 500 mg by mouth every 6 hours. 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 30 tablet 3 12/06/2016 03/27/2017 aspirin 81 mg EC tablet Take 81 mg by mouth daily. 01/06/2020 atenolol (TENORMIN) 50 mg tablet Take 50 mg by mouth daily. 08/05/2010 10/11/2023 simvastatin (ZOCOR) 10 mg tablet Take 10 mg by mouth daily. 08/05/2010 10/11/2023 documented as of this encounter Progress Notes * Angel Lujan APRN - 12/21/2016 8:10 AM EDT ASA: 3: Patient with severe systemic disease Mallampati: II: tonsillar pillars are blocked by the tongue Cardiovascular: Rhythm: Regular Rate: Normal Pulmonary: Breath sounds clear to auscultation Consent: The sedation plan, its benefits and risks, and alternatives were discussed with the patient. The planned procedure, its benefits and risks, and alternatives were discussed with the patient. The patient consented to the procedure. Sedation Plan: moderate (conscious sedation) * Catie Bradley RN - 12/15/2016 2:56 PM EDT ANGIO NURSING DATABASE Name: KHARI AGUIAR Date of : 1940 AGE 76 y.o. Address: [address] [place] [id number] (home) Mobile: Telephone Information: Referring Provider: Danny Gordon REASON FOR VISIT: Mediport placement Assessment: 76 y.o. female with history of metastatic urothelial carcinoma diagnosed July 2016,status post robotic-assisted laparoscopic right nephroureterectomy on 11/02/2016 with plan for adjuvant chemotherapy. ?? We have been consulted for single-lumen chest port placement. ?? Plan: ?? Labs to be performed day of procedure: none Medication to STOP: none Sedation: Moderate sedation with fentanyl/versed and local lidocaine/bupivacaine Prophylactic antibiotic: Ancef 2g IV Additional medications for procedure: none Planned access site: Right Internal Jugular vein Position: Supine Consent: Pending ?? 12/20/2016 Anticoagulant/antiplatelet/herbal med. stopped on per MD order. Allergies Allergen Reactions ??? Glucosamine-Chondroitn Sulf.Na Nausea Only Intense cramping too ??? Tegaderm [Transparent Dressings] Rash ??? Sulfa (Sulfonamide Antibiotics) Other (See Comments) liver damage Pertinent PMH: Patient Active Problem List Diagnosis [...] cancer C66.9 ??? Metastatic urothelial carcinoma C79.10 Pertinent PSH: Date/Procedure Med's given/comments 12/21/16: Mediport placement Cefazolin 2 grams IV, Fentanyl 100 mcg IV, midazolam 2 mg IV Tolerated well. Laboratory Results: Lab Results Component Value Date CREATININE 1.16 11/05/2016 Lab Results Component Value Date K 3.3 (L) 11/05/2016 Lab Results Component Value Date PLATELET 174 11/05/2016 Medications: Prior to Admission medications Medication Sig Start Date End Date Taking? Authorizing Provider docusate sodium (COLACE) 100 mg Capsule Take 100 mg by mouth 2 times daily. PROVIDER, HISTORICAL ondansetron (ZOFRAN) 8 mg Tablet Take 1 tablet by mouth every 8 hours as needed for Nausea. 12/06/16Danny Gordon MD prochlorperazine (COMPAZINE) 10 mg Tablet Take 1 tablet by mouth every 6 hours as needed for Nausea. 12/06/16 Danny Gordon MD Calcium Carbonate-Vitamin D3 600 mg(1,500mg) -400 unit Tab Take 1 tablet by mouth daily. PROVIDER, HISTORICAL hydrochlorothiazide (HYDRODIURIL) 25 mg tablet Take 25 mg by mouth daily. PROVIDER, HISTORICAL aspirin 81 mg EC tablet Take 81 mg by mouth daily. PROVIDER, HISTORICAL atenolol (TENORMIN) 50 mg tablet 08/05/10 simvastatin (ZOCOR) 10 mg tablet 08/05/10 ACETAMINOPHEN (TYLENOL ORAL) 08/05/10 documented in this encounter Nursing Notes * Catie Bradley RN - 12/21/2016 8:38 AM EDT To procedure room Rm 2 via stretcher. Onto table supine (position) All monitors, O2, safety strap in place. Med's per protocol. documented in this encounter Miscellaneous Notes * Med Student H&P - Amara Hoffman - 12/20/2016 9:17 AM EDT INTERVENTIONAL RADIOLOGY FOCUSED H&P and PRE-PROCEDURE NOTE: PCP: Dulce Hidalgo MD Referring Provider: Danny Gordon Planned Procedure: Mediport placement Procedure Indication: Metastatic urothelial carcinoma, plan for adjuvant chemotherapy Presenting Diagnosis/ Complaint: Khari Aguiar is a 76 y.o. female with history of metastatic urothelial carcinoma diagnosed July 2016, status post robotic-assisted laparoscopic right nephroureterectomy on 11/02/2016. Pathology showed [id number] high grade urothelial carcinoma with associated CIS and negative bladder cuff margins. Adjuvant chemotherapy is planned. We have been consulted for single-lumen chest port placement. Past Medical/Surgical History: Patient Active Problem List [...] cancer C66.9 ??? Metastatic urothelial carcinoma C79.10 Past Medical History: Diagnosis Date ??? Benign [...] Unknown ??? CREATED BY INTERFACE SENTINEL NODE INJECTION/ LEFT/RIGHT/BREAST Procedure Date: 06/02/2006 ??? CREATED BY INTERFACE SENTINEL NODE INJECTION/ LEFT/RIGHT/BREAST Procedure Date: 06/02/2006 ??? CREATED BY INTERFACE JOANN/BSO Procedure Date: Unknown ??? PRO LAP, ABD/PERIT/OMENTUM, UNLIST N/A 11/02/2016 LAPAROSCOPIC, EXTENSIVE LYSIS ADHESIONS (WRVU *) performed by Ariel Do MD at [facility] MAIN OR ??? PRO NEPHRECTOMY, W/PART. URETECTOMY Right 11/02/2016 @LAPAROSCOPY TOTAL NEPHROURETERECTOMY, ROBOTICS ASSIST (WRVU 25.36) performed by Ariel Do MDat [facility] MAIN OR Medications: Current Outpatient Prescriptions on File Prior to Encounter Medication Sig Dispense Refill ??? docusate sodium (COLACE) 100 mg Capsule Take 100 mg by mouth 2 times daily. ??? ondansetron (ZOFRAN) 8 mg Tablet Take 1 tablet by mouth every 8 hours as needed for Nausea. 20 tablet 3 ??? prochlorperazine (COMPAZINE) 10 mg Tablet Take 1 tablet by mouth every 6 hours as needed for Nausea. 30 tablet 3 ??? Calcium Carbonate-Vitamin D3 600 mg(1,500mg) -400 unit Tab Take 1 tablet by mouth daily. ??? hydrochlorothiazide (HYDRODIURIL) 25 mg tablet Take 25 mg by mouth daily. ??? aspirin 81 mg EC tablet Take 81 mg by mouth daily. ??? atenolol (TENORMIN) 50 mg tablet ??? simvastatin (ZOCOR) 10 mg tablet ??? ACETAMINOPHEN (TYLENOL ORAL) (Patient not taking: No sig reported) No current facility-administered medications on file prior to encounter. Allergies: Glucosamine-chondroitn sulf.na; Tegaderm [transparent dressings]; and Sulfa (sulfonamideantibiotics) Social History and Habits: Social History Social History ??? Marital status: Spouse name: N/A ??? Number of children: N/A ??? Years of education: N/A Occupational History ??? Not on file. Social History Main Topics ??? Smoking status: Never Smoker ??? Smokeless tobacco: Never Used ??? Alcohol use No ??? Drug use: No ??? Sexual activity: Not on file Other Topics Concern ??? Not on file Social History Narrative Significant Family History: Family History Problem Relation Age of Onset ??? Lung Cancer Brother 72 ??? Ovarian Cancer 41 ??? Lung Cancer Maternal Uncle 70's or 80's ??? Breast Cancer Maternal Aunt ??? Prostate Cancer Father 63 Pertinent ROS: as per HPI Labs: Lab Results Component Value Date WBC 7.0 11/05/2016 HCT 32.3 (L) 11/05/2016 PLATELET 174 11/05/2016 BUN 12 11/05/2016 CREATININE 1.16 11/05/2016 Physical Exam: Pending (to be performed in angio the day of procedure) ASA: Pending (to be assessed in angio the day of procedure) Mallampati Class: Pending (to be assessed in angio the day of procedure) Assessment: 76 y.o. female with history of metastatic urothelial carcinoma diagnosed July 2016,status post robotic-assisted laparoscopic right nephroureterectomy on 11/02/2016 with plan for adjuvant chemotherapy. We have been consulted for single-lumen chest port placement. Plan: Labs to be performed day of procedure: none Medication to STOP: none Sedation: Moderate sedation with fentanyl/versed and local lidocaine/bupivacaine Prophylactic antibiotic: Ancef 2g IV Additional medications for procedure: none Planned access site: Right Internal Jugular vein Position: Supine Consent: Pending 12/20/2016 documented in this encounter Plan of Treatment Not on file documented as of this encounter Procedures Procedure Name Priority Date/Time Associated Diagnosis Comments IR MEDIPORT PLACEMENT Routine 12/21/2016 9:55 AM EDT Metastatic urothelial carcinoma documented in this encounter Results * IR Mediport Placement / Exchange (12/21/2016 9:55 AM EDT) Anatomical Region Laterality Modality X-Ray Angiograph y Narrative 12/21/2016 4:12 PM EDT INTERVENTIONAL RADIOLOGY PROCEDURE NOTE Procedure: 1) US guided right internal jugular vein access 2) Placement of right chest port (CT-compatible) Indication for Procedure: Metastatic urothelial cancer, needs reliable venous access for chemotherapy Consent: After discussing the risks (including infection, hemorrhage, damage to surrounding structures, respiratory depression) and benefits, the patient consented to the procedure. Method of Sedation: ??Due to the painful nature of the procedure, patient received split doses of intravenous fentanyl and versed from the IR nurse while pulse, pressure, and oxygen saturation were continuously monitored. 1% lidocaine was used for local analgesia. Technique: Prior to beginning the procedure, a standard time out Moment of Truth was performed to confirm all stein aspects (including the patient's identity, informed consent, medical record number, allergies, planned procedure and laterality if appropriate) all of which were correct. The patient received a dose of antibiotics for prophylaxis. Maximum sterile barrier precautions were used throughout. After preparation of the right neck and upper chest, ultrasound was used to localize the right internal jugular vein. ??1% lidocaine SQ was administered for local anesthesia, and a 21 ga needle was advanced under ultrasound guidance into the right internal jugular and a 0.018 wire was advanced into SVC. ??The remainder of the procedure was performed with fluoroscopic guidance. A 4 Fr introducer sheath was placed and the wire exchanged for a 0.035 3J wire. The wire was advanced into the IVC. Lidocaine and Bupivacaine was then infiltrated in a caudal-lateral direction, and infiltrated over a 2 cm infraclavicular area for pocket creation. ??A 1.5 cm incision was made, and with blunt dissection a pocket created. ??The port was attached to the catheter, placed into the pocket. ??A tunneler was then used to bring the catheter through the tunnel to the venotomy site. The 4 Fr introducer sheath was exchanged for a peel-away sheath over the wire. The wire and inner dilator were removed and the catheter advanced into the SVC. ??The sheath was removed. ??The port flushed and aspirated well. ??The pocket was closed using a two layer technique (2-0 vicryl deep interrupted and 4-0 vicryl running subcuticular). The skin closed with indermil. The port was not left accessed. Device Information: Vaccess CT (POWER) Port REF [id number] LOT [id number] Medications: Lidocaine 1% <10 mL SQ, Bupivacaine-Epinephrine 0.25 %-1:200,000 injection <20 mL;?? Versed 2 mg IV, Fentanyl 100 mcg IV Antibiotic Prophylaxis: Ancef 2G IV EBL: <5 cc Complications: ??No immediate Findings: 1) US exam of the right IJV showed a widely patent compressible vessel. 2) New right chest port with the catheter tip at the cavoatrial junction. Impression: Placement of POWER port in right chest. Plan/Disposition: 1) To Angio recovery room, may discharge to home when meets criteria. 2) Port ready for use. Automatic Gluing Machine Operator(s): Associate Provider: Angel Lujan APRN. I was present during the intraservice time as documented by the IR nurse. Attending: Dr. Tejeda 12/21/2016 Danny Gordon MD [facility] IR ORDERABLES documented in this encounter Visit Diagnoses Diagnosis Metastatic urothelial carcinoma Secondary malignant neoplasm of other urinary organs documented in this encounter Administered Medications Inactive Administered Medications - up to 3 most recent administrations Medication Order MAR Action Action Date Dose Rate Site BUpivacaine-EPINEPHrine 0.25 %-1:200,000 injection 20 mL 20 mL (50 mg), Infiltration, ONCE, 1 dose, On Mon12/21/16 at 0800, For use in Interventional Radiology (IR) only for procedural sedation with direct provider supervision and verbal order., Angio/IR (Intra-Procedure), Routine Given 12/21/2016 9:20 AM EDT 20 mLs ceFAZolin (ANCEF) 2,000 mg in sodium chloride 0.9% 56.06 mL 2,000 mg (2 g), Intravenous, ONCE, 1 dose, On Mon12/21/16 at 0800, Administer over 30 Minutes, Indication for (Active or Suspected): Prophylaxis Given 12/21/2016 8:46 AM EDT 2,000 mg 112.1 mL/hr fentaNYL 50 mcg/mL multi-dose injection 25-50 mcg, Intravenous, EVERY 5 MIN PRN, Starting on Mon12/21/16 at 0735, Until Mon12/21/16 at 0934, Pain, per unit protocol, - Start dose [...] and verbal order., Angio/IR (Intra-Procedure), Routine Given 12/21/2016 9:14 AM EDT 25 mcg Given 12/21/2016 9:01 AM EDT 25 mcg Given 12/21/2016 8:52 AM EDT 25 mcg lidocaine (XYLOCAINE) 10 mg/mL (1 %) injection 10 mg 10 mg, Subcutaneous, ONCE, 1 dose, On Mon12/21/16 at 0800, For use in Interventional Radiology (IR) only for procedure with direct provider supervision and verbal order., Angio/IR (Intra-Procedure), Routine Given 12/21/2016 9:06 AM EDT 10 mg midazolam (PF) (VERSED) 1 mg/mL multi-dose injection 0.5-1 mg 0.5-1 mg, Intravenous, EVERY 3 MIN PRN, Starting on Mon12/21/16 at 0735, Until Mon12/21/16 at 0934, Sleep, - Start dose; 1 mg (Reduce dose to 0.5 mg if history of sedation sensitivity). - Titration dose: 0.5 mg - 1 mg (based on patient response) every 3 minutes PRN to obtain RASS score of -3. Maximum dose: 1 mg per dose, 5 mg/hour. For use in Interventional Radiology (IR) only for procedural sedation with direct provider supervision and verbal order., Angio/IR (Intra-Procedure), Routine Given 12/21/2016 9:14 AM EDT 0.5 mg Given 12/21/2016 9:01 AM EDT 0.5 mg Given 12/21/2016 8:52 AM EDT 0.5 mg sodium chloride 0.9 % flush 5 mL 5 mL, Intravenous, EVERY 12 HOURS, First dose on Mon12/21/16 at 0800, Until Discontinued, Day of Surgery (Day of Procedure), Routine Given 12/21/2016 8:00 AM EDT 5 mLs sodium chloride 0.9 % flush 5-20 mL 5-20 mL, Intravenous, EVERY 1 MIN PRN, Starting on Mon12/21/16 at 0735, Until Mon12/21/16 at 1030, flush, Flush pertains to all indwelling lines. Flush per protocol found in the job aid using the link provided on this medication record., Day of Surgery (Day of Procedure), Routine Given 12/21/2016 9:14 AM EDT 20 mLs Given 12/21/2016 9:01 AM EDT 20 mLs Given 12/21/2016 8:52 AM EDT 20 mLs documented in this encounter Care Teams Flight Test Shop Mechanic Relationship Specialty Start Date End Date Dulce Hidalgo MD [facility] [address] [place] [address] PCP - General Family Medicine 09/30/16 documented as of this encounter
--- OUTSIDE RECORDS SUMMARY | 2024-01-11 13:21 | XMS_ITS | Encounter Summary ---
Author Organization [facility] Address [facility] [place] [address] Care Team Providers Care Diesel Dinkey Operator Name Role Phone Dulce Hidalgo MD Primary Care Provider [phone] Reason for Visit * Reason Comments Chemotherapy * Treatment/Therapy Plan Authorization (Routine) - Closed Specialty Diagnoses / Procedures Referred By Contmaury t Referred To Contact Diagnoses Metastatic urothelial carcinoma Danny Gordon MD [facility] [address] [place] [address] St Hem Onc Office [address] [place] [id number] Referral ID Status Reason Start Date Expiration Date Visits Re quested Visits Authorized [id number] Closed 12/06/2016 12/06/2017 1 1 Encounter Details Date Type Department Care Team (Late st Contact Info) Description 01/24/2017 9:30 AM EDT Infusion Hematology Oncology at [address] [phone] Neutropenia, drug-induced; Metastatic urothelial carcinoma [...] as of this encounter Progress Notes * Michaela Hernandez RN - 01/24/2017 9:30 AM EDT Isaura Paula Stefania, 76 y.o. female with diagnosis of metastatic urothelial carcinoma is here for chemotherapy infusion of Gemzar/Onpro Neulasta/Hydration. Cisplatin held today per NANCI Philip . Creatinine 1.49 PROTOCOL: No CYCLE: 2 DAY: 8 S: Pt. offers no complaints at this time. O: Chemotherapy orders independently verified for correct drug name, route and dosage per patient'sheight, weight and BSA by Evangelina ABREU and onsite pharmacist REACTIONS (DESCRIPTION, TIME, INTERVENTION AND EFFECTIVENESS) NONE A: Pt. Tolerated treatment well. Isaura Paula Stefania confirms that all questions and issues have beenaddressed. Onpro applied to right arm without incident. P: Return to clinic per schedule documented in this encounter Plan of Treatment Not on file documented as of this encounter Visit Diagnoses Diagnosis Neutropenia, drug-induced Drug induced neutropenia Metastatic urothelial carcinoma Secondary malignant neoplasm of other urinary organs documented in this encounter Administered Medications Inactive Administered Medications - up to 3 most recent administrations Medication Order MAR Action Action Date Dose Rate Site dexamethasone (DECADRON) tablet 10 mg 10 mg, Oral, ONCE, 1 dose, On Mon01/24/17 at 1000, Administer prior to chemotherapy, Routine Given 01/24/2017 10:00 AM EDT 10 mg famotidine (PEPCID) injection 20 mg 20 mg, Intravenous, ONCE, 1 dose, On Mon01/24/17 at 1000 Given 01/24/2017 10:00 AM EDT 20 mg GEMcitabine 2,400 mg in sodium chloride 0.9% 313.1579 mL chemo infusion 2,400 mg (1,000 mg/m2/dose ? 2.4 m2 Treatment Plan BSA from Recorded weight), Intravenous, ONCE, 1 dose, On Mon01/24/17 at 1100, Administer over 30 Minutes New Bag 01/24/2017 10:28 AM EDT 2,400 mg 626.3 mL/hr heparin, porcine 100 unit/mL flush 500 Units 500 Units, Intravenous, ONCE PRN, Starting on Mon01/24/17 at 0933, Until Mon01/24/17 at 1409, Line Care, Refer to Intravenous (IV) Procedure: Accessing Implanted Vascular Access Devices (654) procedure and/or Intravenous (IV) Job Aid: Adult Flushing & Catheter Care (2121) job aid for additional information regarding guidelines and administration., Routine Given 01/24/2017 12:04 PM EDT 500 Units palonosetron (ALOXI) injection 0.25 mg 0.25 mg, Intravenous, ONCE, 1 dose, On Mon01/24/17 at 1000, Administer over 30 seconds. Administer prior to chemotherapy, Routine Given 01/24/2017 10:02 AM EDT 0.25 mg pegfilgrastim (NEULASTA ONPRO) injection kit 6 mg, Subcutaneous, ONCE, 1 dose, On Mon01/24/17 at 1000, Allow the prefilled syringe co-packaged with the on-body injector to reach room temperature at least 30 minutes prior to administration., Routine Given 01/24/2017 11:25 AM EDT 6 mg Right Arm sodium chloride 0.9 % flush 5-20 mL 5-20 mL, Intravenous, EVERY 1 MIN PRN, Starting on Mon01/24/17 at 0933, Until Mon01/24/17 at 1409, Line Care, Flush pertains to all indwelling lines. Flush per protocol found in the job aid using the link provided on this medication record. Refer to Intravenous (IV) Job Aid: Adult Flushing & Catheter Care (4860) job aid for additional information regarding guidelines and administration., Routine Given 01/24/2017 12:04 PM EDT 20 mLs sodium chloride 0.9% infusion 1,000 mL, at 500 mL/hr, Intravenous, CONTINUOUS, Starting on Mon01/24/17 at 1000, Until Mon01/24/17 at 1159, Pre CISplatin New Bag 01/24/2017 9:59 AM EDT 1,000 mLs 500 mL/hr documented in this encounter Care Teams Diesel Dinkey Operator Relationship Specialty Start Date End Date Dulce Hidalgo MD [facility] [address] [place] [address] PCP - General Family Medicine 09/30/16 documented as of this encounter
--- OUTSIDE RECORDS SUMMARY | 2024-01-11 13:21 | XMS_ITS | Encounter Summary ---
[place] [address] Care Team Providers Care Motor Expert Name Role Phone Dulce Hidalgo MD Primary Care Provider [phone] Reason for Visit * Reason Onset Date Comments New Medication Request 04/12/2017 capcitabi ne Encounter Details Date Type Department Care Team (Late st Contact Info) Description 04/12/2017 Telephone Hematology/Oncology at [address] [phone] Sherly Herrera RN New Medication Request (capcitabine) Social History Tobacco Use Types Packs/Day Years [...] Telephone Encounter - Sherly Herrera RN - 04/12/2017 4:02 PM EDT Oral Chemotherapy Check Note 04/12/2017 Isaura Aguiar, 1940 Prescriptions for oral chemotherapy were reviewed as follows: Oral Chemotherapy Order capecitabine: Order details: ?? Dose: 1800mg ?? Route: oral ?? Quantity to be dispensed #: 60 doses (500mg tab - 180 tabs, 150 mg tab - 120 tabs) ?? Number of refills: 0 ?? Instructions: Take 1800 mg twice a day on radiation days ?? Cycle number and length: During radiation ?? Start date: When radaition starts around Pharmacist's verification: ?? 04/12/17 ?? Date Review Completed (Review Started on): Plan of care compared to information in the medical record, including note from provider on 04/10/17 (date). The prescription was found to be complete and accurate. It was printed, reviewed and signed by provider and manually faxed to [facility] [phone]. documented in this encounter Plan of Treatment Not on file documented as of this encounter Visit Diagnoses Not on filedocumented in this encounter Care Teams Motor Expert Relationship Specialty Start Date End Date Dulce Hidalgo MD [facility] [address] [place] [address] PCP - General Family Medicine 09/30/16 documented as of this encounter
--- OUTSIDE RECORDS SUMMARY | 2024-01-11 13:21 | XMS_ITS | Encounter Summary ---
[place] [address] Care Team Providers Care Glue Wheel Operator Name Role Phone Dulce Hidalgo MD Primary Care Provider [phone] Encounter Details Date Type Department Care Team (Late st Contact Info) Description 04/12/2017 10:30 AM EDT Office Visit Radiation Oncology at [address] [phone] German Greene MD [address] [place] [address] DR RADIATION ONCOLOGY [place], [place] [id number] Malignant neoplasm of right ureter Social History [...] this encounter Patient Instructions * Patient Instructions* Jen Ash RN - 04/12/2017 10:30 AM EDT General instructions for Radiation therapy Radiation Oncology Team Radiation Oncologist -The doctor who will direct all aspects of your radiation treatments Nurse Practitioner - They assist your doctor in treating your side effects and with follow up appointments. Registered Nurse - They assist you in learning about you radiation treatments, and things you can do to help manage the side effects. Clinic Assistant - They take the doctors radiation prescription and customize it into doses (or days of treatments) specific for you. Physicist - They make sure all the machines are operating correctly and double check calculations for your treatment. Radiation Technologists - They operate the machines which deliver your radiation. You see them daily and they schedule your treatments. Simulation CT/ Planning Session Your first step after deciding to start radiation treatments is done on a special CAT scanner in the radiation department. The images obtained are used to plan your treatments. This may be scheduled the same day you meet your doctor or in a separate visit. This usually takes between 30 minutes to one hour. You may need an IV for contrast. If so our nurse will let you know that day along with any other special instructions. During this visit we may christine Your skin with a tiny ???tattoos?? , take pictures or make special molds or masks to help us place you in the exact treatment position every day. After this session it takes up to two weeks for your plan to be developed and checked by your doctor, the dosimetrists and the physicist. Skin Care - Your nurse will provide you with the necessary creams and supplies as you need them during your treatments. Please make sure you keep the treatment area clean and dry. Be sure to notice if your clothing rubs or digs into the treatment area and try to wear clothes which are less abrasive, like cotton or loose fitting. Do not use harsh soaps, ointments, deodorants or tapes in the treatment area unless directed by your nurse or doctor. Keep the treatment area out of the sun during treatments. General precautions DO NOT USE heating pads, hot water bottles, hot poultices, heat lamps, heat in any form, or ice packs to the area of your body being treated. It is common to start feeling fatigue after a few weeks of being treated. You can help minimize this by getting regular exercise or walking and getting plenty of rest. In general a well balanced diet is recommended. The probate judge and nurse will inform you of any special diet requirements. Avoid shaving the treatment area with a razor. If you must shave use an electric razor. >>>>Please remember: Do not urinate before your radiation treatment. Try to have a comfortably full bladder if possible. This will help reduce side effects on the long run. If you have any questions or concerns about these directions,please inform your nurse. >>> >Diarrhea management for patients receiving pelvic radiation: Follow a low roughage, low fiber diet.Also avoid any foods/beverages with high acid content. For example:Tomatoes, citrus and vinegar. Drink plenty of water;8-10 glasses/day Take 1 imodium tablet after each loose watery stool. Do not take more than 8 tabs per day. Notify physician if diarrhea is not relieved after 8 tabs. Contact numbers Section of Radiation Oncology Our normal business hours are: Monday - Monday 8 AM to 5 PM [facility] phone# [phone] [facility] If you have questions about your radiation appointments please ask to speak to one of our secretarystaff. If you have questions for a nurse/doctor about radiation treatments, radiation side effects or you are not feeling well it is best to call early in the day. This allows a nurse to return your call by5 PM the same day. If you call after 4 PM, a nurse will return your call by 5 PM the following day unless it is emergent. If you experience any of the following you need to seek emergency care immediately by calling 911 1. Sudden and unexpected breathing difficulty without any exertion 2. Sudden onset of chest pain 3. Sudden onset of severe pain or uncontrolled pain 4. Sudden onset of severe weakness and/or unable to ambulate 5. Sudden new onset of a seizure 6. Fall resulting in injury A Radiation Oncology doctor is web operations lead after our normal hours and on weekends. To call for urgent medical issues from radiation treatments that can not wait until normal business hours, please call for either location and have the glass ribbon machine operator assistant page the Radiation Oncologist web operations lead. documented in this encounter Progress Notes * German Greene MD - 04/12/2017 10:30 AM EDT Radiation Oncology Established Patient Followup Note German Greene MD [facility] [place] [place] [address] Patient Identification: Isaura Aguiar is a 76 y.o. 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 For details regarding initial presentation please refer to my consultation note dated 03/27/17. INTERVAL HISTORY I am seeing her prior to the simulation procedure to review her interval medical history, the treatment plan, logistics of therapy, answer her questions, and to review informed consent. Since last seen, Mrs. Aguiar reports no change in her overall medical condition and is here today for radiation planning CT simulation. PET/CT reviewed, which shows no evidence for grossly recurrently disease. We also reviewed her visit with Dr. Gordon who plans to treat with concurent Xeloda for chemosensitization. OBJECTIVE Constitutional: she appears well-developed and well-nourished. No distress. Medications 04/12/17 1102 Medication Sig Taking? omeprazole (PRILOSEC) 10 mg Capsule, Delayed Release(E.C.) Take 10 mg by mouth daily as needed. Daily as needed Yes rivaroxaban (XARELTO) 15 mg Tablet Take 1 tablet by mouth 2 times daily. Patient taking differently: Take 15 mg by mouth daily. Yes lactobacillus rhamnosus, GG, (CULTURELLE) 10 billion [...] number of capsules/tablets prescribed. ACETAMINOPHEN (TYLENOL ORAL) Performance Status: KPS Score ECOG Grade Definition X 90-100 0 Fully active, able to carry on all pre-disease performance without restriction 70-80 1 Restricted in physically strenuous activity but ambulatory and able to carry out work of a light or sedentary nature, e.g., light house work, office work 50-60 2 Ambulatory and capable of all selfcare but unable to carry out any work activities; up and about more than 50% of waking hours 30-40 3 Capable of only limited selfcare; confined to bed or chair more than 50% of waking hours 10-20 4 Completely disabled; cannot carry on any selfcare; totally confined to bed or chair ASSESSMENT / PLAN Proceed with CT simulation per orders in [facility]. documented in this encounter Plan of Treatment Not on file documented as of this encounter Visit Diagnoses Diagnosis Malignant neoplasm of right ureter Malignant neoplasm of ureter documented in this encounter Care Teams Glue Wheel Operator Relationship Specialty Start Date End Date Dulce Hidalgo MD [facility] [address] [place] [address] PCP - General Family Medicine 09/30/16 documented as of this encounter
--- OUTSIDE RECORDS SUMMARY | 2024-01-11 13:21 | XMS_ITS | Encounter Summary ---
Author Organization [facility] [place] [address] Care Team Providers Care Director Non Profit Name Role Phone Dulce Hidalgo MD Primary Care Provider [phone] Encounter Details Date Type Department Care Team (Late st Contact Info) Description 02/14/2017 9:30 AM EDT Office Visit Hematology/Oncology at [address] [phone] Danny Gordon MD [facility] DR HEMATOLOGY [place] [address] Metastatic urothelial carcinoma; Neutropenia, drug-induced; Anemia, secondary; Elevated serum creatinine; BRBPR (bright red blood per rectum) Social History Tobacco Use Types Packs/Day Years [...] Sign Reading Time Taken Comments Blood Pressure 154/47 02/14/2017 10:05 AM EDT Pulse 63 02/14/2017 10:05 AM EDT Temperature 36.3 ??C (97.3 ??F) 02/14/2017 10:05 AM E DT Respiratory Rate 16 02/14/2017 10:05 AM EDT Oxygen Saturation 100% 02/14/2017 10:05 AM EDT Inhaled Oxygen Concentration - - Weight 132.9 kg (293 lb) 02/14/2017 10:05 AM EDT Height 156 cm (5' 1.42) 02/14/2017 10:05 AM EDT Body Mass Index 54.61 02/14/2017 10:05 AM EDT documented in this encounter Progress Notes * Danny Gordon MD - 02/14/2017 9:30 AM EDT Diagnosis: Metastatic urothelial carcinoma Subjective:I feel fine HPI:Isaura Aguiar is 76 y.o.F referred to [...] Mrs. Aguiar is in clinic for follow-up appointment and 3-rd cycle of chemotherapy. Overall, she feels well. She had one episode of painless bright red blood per rectum on . She saw Dr. Hidalgo for that issue. Denies any nausea, vomiting, fever, chills or pain. PMH: Rectal bleeding on February [address] Mediport placement Ovarian cancer in 1994 status post cisplatin and Cytoxan, left breast invasive ductal carcinoma in 2005 status post 5 years of anastrozole, BRCA2 mutation, High blood pressure, high cholesterol, knee replacement Patient Active Problem List Diagnosis ??? Neutropenia, drug-induced ??? Metastatic urothelial carcinoma [...] drink alcohol, she used to work in [employer], retired 2002, she has 3 children. Family [...] Medications These changes are accurate as of: 02/14/17 10:25 AM. If you have any questions, ask [...] Reported on 01/03/2017 1 tablet Refills: 0 docusate sodium 100 mg Cap Commonly known as: COLACE Take 100 mg by mouth 2 times daily. 100 mg Refills: 0 hydroCHLOROthiazide 25 mg Tab Commonly known as: HYDRODIURIL Take 25 mg by mouth daily. 25 mg Refills: 0 lactobacillus rhamnosus (GG) 10 billion cell Cap Commonly known as: CULTURELLE Take 1 capsule by mouth daily. 1 capsule Refills: 0 magnesium oxide 400 mg Tab Commonly known as: MAG-OX Take 1 tablet by mouth daily. 400 mg Quantity: 30 tablet Refills: 2 ondansetron 8 mg Tab Commonly known as: ZOFRAN Take 1 tablet by mouth every 8 hours as needed for Nausea. 8 mg Quantity: 20 tablet Refills: 3 prochlorperazine 10 mg Tab Commonly known as: COMPAZINE Take 1 tablet by mouth every 6 hours as needed for Nausea. 10 mg Quantity: 30 tablet Refills: 3 simvastatin 10 mg Tab Commonly known as: ZOCOR ?nk?wn!?? Refills: 0 TYLENOL ORAL ?nk?wn!?? Refills: 0 Review of Systems: Constitutional: Negative for fever, chills, activity change, fatigue and unexpected weight change. HEENT: Negative for sore throat, mouth sores and trouble swallowing. Eyes: Negative. Respiratory: Negative for cough, shortness of breath and wheezing. Cardiovascular: Negative for chest pain, palpitations and leg swelling. Gastrointestinal: Episode of rectal bleeding on February 09. Genitourinary: Gross blood in urine and right flank pain Musculoskeletal: Negative. Skin: Negative. Neurological: Negative. Hematological: Negative for adenopathy. PE: General: AAAx3, in NAD, obese Head: Normocephalic, without obvious abnormality, atraumatic Eyes: PERRL, conjunctiva/corneas clear, EOM's intact, fundi benign, both eyes Ears: Normal TM's and external ear canals, both ears Nose: Nares normal, septum midline, mucosa normal, no drainage or sinus tenderness Throat: Lips, mucosa, and tongue normal; teeth and gums normal Neck: Supple, symmetrical, trachea midline, no adenopathy, thyroid: not enlarged, symmetric, no tenderness/mass/nodules, no carotid bruit or JVD Back: Symmetric, no curvature, ROM normal, no CVA tenderness Lungs: Clear to auscultation bilaterally, respirations unlabored Chest Wall: No tenderness or deformity Heart: Regular rate and rhythm, S1, S2 normal, no murmur, rub or gallop Abdomen: Soft, non-tender, bowel sounds active all four quadrants, no masses, no organomegaly. There is no appreciable ascites Extremities: Extremities normal, atraumatic, no cyanosis or edema Pulses: 2+ and symmetric Skin: Skin color, texture, turgor normal, no rashes or lesions Lymph nodes: Cervical, supraclavicular, and axillary nodes normal Neurologic: Normal Vitals BP 154/47 (Patient Position: Sitting) Pulse 63 Temp 36.3 ??C (97.3 ??F) (Oral) Resp 16 Ht 156 cm (5' 1.42) Wt (!) 132.9 kg (293 lb) SpO2 100% BMI 54.61 kg/m2 Pathology: 11/02/16 SYNOPTIC REPORT Specimen ?Procedure: ??Nephroureterectomy, [...] B14 Normal Block(s): ?? B23 Labs: Sodium 135, potassium 4.0, BUN 28, creatinine 1.49, Jewett 9.0, total bilirubin 0.38, AST 11, ALT 17, alkaline phosphatase 97, total protein 6.6, albumen 3.3 WBC 4.78, hemoglobin 9.5, plateletcount 297. Imagin12/21/16 PET scan: IMPRESSION No evidence of local tumor recurrence, regional armen or metastatic disease. ?? 09/22/16 CT AP: Left kidney is normal. Right kidney hydronephrotic to level of the bladder, with thickened enhancing distal ureteral mass extending into the bladder. Minimal residual parenchyma on the right. 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 Based on the data from phase II clinical trial we will use split dose of cisplatin 35 mg/m2 gemcitabine 1000 mg per Willard squared days 1 and 8. Last treatment cisplatin was held due to worsening of kidney function. She was hydrated with IV fluids Today creatinine is 1.49. Alkylator creatine clearance of 60 m/m. We'll proceed with day 1 of thirdcycle of chemotherapy. We will arrange hydration on Feb 16. # Creatinine: elevated # anemia: secondary to chemotherapy. Will monitor. # Rectal bleeding: follows with Dr. Hidalgo Plan: 1.Cisplatin/gemcitabine today 2. NS 1 Lr IV on Feb 16 3. Stand alone Cisplatin and Gemcitabine on 02/21 4. Next visit in [address] Gordon with CBC, CMP and 4-th cycle of cisplatin/gemcitabine The plan was discussed with the patient in details. All questions were answered to patient's satisfaction. Mrs. Aguiar is accomponied by her today. The plan was discussed with the patient in details. All questions were answered to patient's satisfaction. I would like to thank Dr. Hidalgo and Dr. Do for allowing me to participate in the care of this wonderful lady. documented in this encounter Plan of Treatment Not on file documented as of this encounter Visit Diagnoses Diagnosis Metastatic urothelial carcinoma Secondary malignant neoplasm of other urinary organs Neutropenia, drug-induced Drug induced neutropenia Anemia, secondary Anemia, unspecified Elevated serum creatinine Other nonspecific findings on examination of blood BRBPR (bright red blood per rectum) Hemorrhage of rectum and anus documented in this encounter Care Teams Director Non Profit Relationship Specialty Start Date End Date Dulce Hidalgo MD [address] [place] [address] PCP - General Family Medicine 09/30/16 documented as of this encounter
--- OUTSIDE RECORDS SUMMARY | 2024-01-11 13:21 | XMS_ITS | Encounter Summary ---
Author Organization Formerly [facility] [place] [place] [address] Care Team Providers Care C 13 Catapult Operator Name Role Phone Dulce Hidalgo MD Primary Care Provider [phone] Reason for Visit * Reason Comments Follow-up Encounter Details Date Type Department Care Team (Late st Contact Info) Description 03/14/2017 9:30 AM EDT Office Visit Hematology/Oncology at [address] [address] Danny Gordon MD [facility] [place] [address] Metastatic urothelial carcinoma; Ovarian cancer, unspecified laterality; Pain and swelling of lower leg, right Social History Tobacco Use Types Packs/Day [...] Sign Reading Time Taken Comments Blood Pressure 148/61 03/14/2017 9:19 AM EDT Pulse 73 03/14/2017 9:19 AM EDT Temperature 36.8 ??C (98.2 ??F) 03/14/2017 9:19 AM ED T Respiratory Rate 16 03/14/2017 9:19 AM EDT Oxygen Saturation 100% 03/14/2017 9:19 AM EDT Inhaled Oxygen Concentration - - Weight 132 kg (291 lb) 03/14/2017 9:19 AM EDT Height 156 cm (5' 1.42) 03/14/2017 9:19 AM EDT Body Mass Index 54.24 03/14/2017 9:19 AM EDT documented in this encounter Progress Notes * Danny Gordon MD - 03/14/2017 9:30 AM EDT Diagnosis: Metastatic urothelial carcinoma Subjective:I did not feel right after last chemotherapy HPI:Isaura Aguiar is 76 y.o.F referred to [...] is in clinic for follow-up appointment and 4-th cycle of chemotherapy. She felt very tired and had no energy after last cycle of chemotherapy. He is ago she noted pink color of her right low leg and swelling. She denies any fever, chills, nausea or vomiting. PMH: No interval changes since last visit Rectal bleeding on February 092016 Mediport placement [...] drink alcohol, she used to work in [employer], retired 2002, she has 3 children. Family [...] Medications These changes are accurate as of: 03/14/17 9:37 AM. If you have any questions, ask [...] axillary nodes normal Neurologic: Normal Vitals BP 148/61 (Patient Position: Sitting) Pulse 73 Temp 36.8 ??C (98.2 ??F) (Oral) Resp 16 Ht 156 cm (5' 1.42) Wt (!) 132 kg (291 lb) SpO2 100% BMI 54.24 kg/m2 Pathology: 11/02/16 SYNOPTIC REPORT Specimen ?Procedure: [...] B14 Normal Block(s): ?? B23 Labs: Sodium 132, BUN 24, creatinine 1.49, [place] 9.0, magnesium 1.9, TB 0.28, AST 13, ALT 15, alkaline phosphatase 128, total protein 6.9, albumen 3.3, WBC 10.45, hemoglobin 8.5, platelet count 152, ANC 6.0 Imagin12/21/16 PET scan: IMPRESSION No evidence of [...] cisplatin 35 mg/m2 gemcitabine 1000 mg per [place] squared days 1 and 8. Mrs. Aguiar felt significantly more tired after last dose of chemotherapy. Complains of constipation, swelling of right leg. She would like to hold on chemotherapy today as she has to travel to [facility] tomorrow. # Creatinine: 1.49 today # anemia: secondary to chemotherapy. Will monitor. # Rectal bleeding: follows with Dr. Hidalgo #Swelling and redness of right lower leg: We'll schedule ultrasound to rule out DVT today Plan: 1.Hold Cisplatin/gemcitabine today 2. US of right low leg today 3. Next visit in [address] Gordon with CBC, CMP [...] this wonderful lady. documented in this encounter Miscellaneous Notes * Addendum Note - Santi Saldaña RN - 03/14/2017 11:36 AM EDTAddended by: SANTI SALDAÑA on: 03/14/2017 11:36 AM Modules accepted: Orders documented in this encounter Plan of Treatment Not on file documented as of this encounter Visit Diagnoses Diagnosis Metastatic urothelial carcinoma Secondary malignant neoplasm of other urinary organs Ovarian cancer, unspecified laterality Pain and swelling of lower leg, right documented in this encounter Care Teams C 13 Catapult Operator Relationship Specialty Start Date End Date Dulce Hidalgo MD [facility] [address] [facility] [address] [place] [address] PCP - General Family Medicine 09/30/16 documented as of this encounter
--- OUTSIDE RECORDS SUMMARY | 2024-01-11 13:21 | XMS_ITS | Encounter Summary ---
Author Organization [facility] [place] [address] Care Team Providers Care Retail Business Manager Name Role Phone Dulce Hidalgo MD Primary Care Provider [phone] Encounter Details Date Type Department Care Team (Late st Contact Info) Description 01/03/2017 8:30 AM EDT Office Visit Hematology/Oncology at [address] [phone] Danny Gordon MD [facility] [address] [place] [address] Neutropenia, drug-induced; Metastatic urothelial carcinoma Social History [...] Sign Reading Time Taken Comments Blood Pressure 106/87 01/03/2017 8:19 AM EDT Pulse 59 01/03/2017 8:19 AM EDT Temperature 36.2 ??C (97.2 ??F) 01/03/2017 8:19 AM ED T Respiratory Rate 18 01/03/2017 8:19 AM EDT Oxygen Saturation 100% 01/03/2017 8:19 AM EDT Inhaled Oxygen Concentration - - Weight 130.5 kg (287 lb 12.8 oz) 01/03/2017 8:19 AM EDT Height 156 cm (5' 1.42) 01/03/2017 8:19 AM EDT copied Body Mass Index 53.64 01/03/2017 8:19 AM EDT documented in this encounter Progress Notes * Danny Gordon MD - 01/03/2017 8:30 AM EDT Diagnosis: Metastatic urothelial carcinoma Subjective:I [...] is in clinic for follow-up appointment and D#8 of of first cycle of chemotherapy. She felt nauseated for couple of days after chemotherapy and to Compazine which controlled her nausea. She had decrease in urine output by Monday, so she drank more fluid. He denies any pain, fatigue, vomiting, fever or chills. Bowel movements are regular PMH: No interval changes since last visit. Mediport placement Ovarian cancer in 1994 status [...] drink alcohol, she used to work in [employer], retired 2002, she has 3 children. Family [...] Medications These changes are accurate as of: 01/03/17 9:02 AM. If you have any questions, ask [...] by mouth daily. 25 mg Refills: 0 ondansetron 8 mg Tab Commonly known as: [...] for chest pain, palpitations and leg swelling. Gastrointestinal:positive for nausea, negative for vomiting, abdominal pain, diarrhea, constipationand abdominal distention. Genitourinary: Gross blood in urine and right [...] axillary nodes normal Neurologic: Normal Vitals BP 106/87 (Patient Position: Sitting) Pulse 59 Temp 36.2 ??C (97.2 ??F) (Oral) Resp 18 Ht 156 cm (5' 1.42) Comment: copied Wt (!) 130.5 kg (287 lb 12.8 oz) SpO2 100% BMI 53.64 kg/m2 Pathology: 11/02/16 SYNOPTIC REPORT Specimen ?Procedure: [...] B10, B14 Normal Block(s): ?? B23 Labs: WBC 2.62, hemoglobin 12.6, platelet count 272, ANC 1.16, sodium 137, potassium 4.0, you and 24, creatinine 1.42, calcium 9.2, magnesium 1.7 total bilirubin 0.33, AST 23, alkaline phosphatase 99, total protein 7.4, albumin 3.4 Imagin12/21/16 PET scan: IMPRESSION No evidence of [...] cisplatin 35 mg/m2 gemcitabine 1000 mg per [place] squared days 1 and 8. Isaura tolerated first dose of chemotherapy reasonably well with mild nausea. Her ANC 1160 today.I discussed postponing second dose of chemotherapy versus adding Neulasta to his treatment regimen.I don't think that postponing chemotherapy for 1 week will ANC enough time to recover. I discussed benefits and the risk of Neulasta. Risks include but not limited to muscle and bone ache, remote chances for splenic rupture. All questions were answered to patient's satisfaction. She is interested to proceed with Neulasta. We will proceed with day 8 of cycle of chemotherapy. We will recheck her CBC and CMP in 1 week I will be away in 2 weeks on next cycle of chemotherapy. So I will ask Dr. Rand to see Isaura. Plan: 1. D#8 of Cisplatin/gemcitabine today + neulasta Onpro 2. CBC, CMP and magnesium in 1 week 3. Next visit in [address] Rand with CBC, CMP and 2-nd cycle of cisplatin/gemcitabine As discussed with the patient in details. All [...] Priority Date/Time Associated Diagnosis Comments LAB SCAN 01/03/2017 12:00 AM EDT documented in this encounter Results * SCAN DOC: LAB (01/03/2017 12:00 AM EDT) Narrative 01/03/2017 12:00 AM EDT Ordered by an unspecified provider. Scanning Provider MEDIA MGR SCAN EXT O RDR/RSLT documented in this encounter Visit Diagnoses Diagnosis Neutropenia, drug-induced Drug induced neutropenia Metastatic urothelial carcinoma Secondary malignant neoplasm of other urinary organs documented in this encounter Care Teams Retail Business Manager Relationship Specialty Start Date End Date Dulce Hdialgo MD [facility] [address] [place] [address] PCP - General Family Medicine 09/30/16 documented as of this encounter
--- OUTSIDE RECORDS SUMMARY | 2024-01-11 13:21 | XMS_ITS | Encounter Summary ---
[place] [address] Care Team Providers Care Office Coordinator Name Role Phone Dulce Hidalgo MD Primary Care Provider [phone] Reason for Visit * Diagnostic Test (Routine) - Closed Specialty Diagnoses / Procedures Referred By Christal lainez Referred To Contact Radiology Diagnoses Metastatic urothelial carcinoma Procedures PET CT Standard Skull Base to Mid-Thigh Danny Gordon MD [facility] [place] [address] [place] [address] Referral ID Status Reason Start Date Expiration Date V isits Requested Visits Authorized [id number] Closed Specialty Service Requested 03/21/2017 03/21/2018 1 1 Encounter Details Date Type Department Care Team (Latest Contact Info) Description 04/07/2017 9:59 AM EDT - 04/07/2017 11:59 PM EDT Hospital Encounter [place] [address] Danny Gordon MD [facility] [place] [address] Discharge Disposition: Home Social History [...] tablets every 6 hrs as needed* 08/05/2010 rivaroxaban (XARELTO) 15 mg TabletIndications:Metas tatic urothelial carcinoma,Ovarian cancer, unspecified laterality,Pain and swelling [...] CT SKULL BASE TO MID-THIGH ([facility]) Routine 04/07/2017 11:58 AM EDT Metastatic urothelial carcinoma POCT GLUCOSE Routine 04/07/2017 10:34 AM EDT documented in this encounter Results * POCT Glucose (04/07/2017 10:34 AM EDT) POC Glucose 124 65 - 199 mg/dL [facility] Comment: Supplemental ranges: <140 mg/dL before meals <180 mg/dL all other times of the day Blood specimen (specimen) 04/07/2017 10:34 AM EDT 04/07/2017 10:34 AM EDT Danny Gordon MD POINT OF CARE TEST O RDERABLES [facility] [place] [address] documented in this encounter Visit Diagnoses Not on filedocumented in this encounter Care Teams Office Coordinator Relationship Specialty Start Date End Date Dulce Hidalgo MD [address] [place] [address] PCP - General Family Medicine 09/30/16 documented as of this encounter
--- OUTSIDE RECORDS SUMMARY | 2024-01-11 13:21 | XMS_ITS | Encounter Summary ---
Author Organization [facility] Address [facility] [place] [address] Care Team Providers Care Milieu Therapist Name Role Phone Dulce Hidalgo MD Primary Care Provider [phone] Reason for Visit * Reason Comments IV Medication Hydration * Treatment/Therapy Plan Authorization (Routine) - Closed Specialty Diagnoses / Procedures Referred By Contmaury t Referred To Contact Diagnoses Metastatic urothelial carcinoma Danny Gordon MD [facility] [place] [address] [address] Hem Onc Office [address] [place] [phone] Referral ID Status Reason Start Date Expiration Date Visits Re quested Visits Authorized [id number] Closed 12/06/2016 12/06/2017 1 1 Encounter Details Date Type Department Care Team (Late st Contact Info) Description 02/16/2017 1:30 PM EDT Infusion Hematology Oncology at [address] [phone] Dehydration; Metastatic urothelial carcinoma Social [...] Sign Reading Time Taken Comments Blood Pressure 125/49 02/16/2017 1:19 PM EDT Pulse 78 02/16/2017 1:19 PM EDT Temperature 36.3 ??C (97.3 ??F) 02/16/2017 1:19 PM ED T Respiratory Rate 18 02/16/2017 1:19 PM EDT Oxygen Saturation 99% 02/16/2017 1:19 PM EDT Inhaled Oxygen Concentration - - Weight 138.8 kg (306 lb) 02/16/2017 1:19 PM EDT Height 156 cm (5' 1.42) 02/16/2017 1:19 PM EDT copied Body Mass Index 57.04 02/16/2017 1:19 PM EDT documented in this encounter Progress Notes * Neeru Reynoso RN - 02/16/2017 1:30 PM EDT INFUSION THERAPY ADMINISTRATION NOTES DIAGNOSIS: Ovarian Cancer REASON FOR VISIT: Hydration Cycle: 3 day 3 SUBJECTIVE Isaura S Stefania offers no complaints. OBJECTIVE IV ACCESS: Mediport REACTIONS (DESCRIPTION, TIME, INTERVENTION AND EFFECTIVENESS) none ASSESSMENT .Isaura Aguiar was awake, alert and tolerated treatment well. [...] at 500 mL/hr, Intravenous, CONTINUOUS, Starting on Chloe 02/16/17 at 1400, Until Chloe 02/16/17 at 1742 New Bag 02/16/2017 1:40 PM EDT 1,000 mLs 500 mL/hr documented in this encounter Care Teams Milieu Therapist Relationship Specialty Start Date End Date Dulce Hidalgo MD [facility] [address] [place] [address] PCP - General Family Medicine 09/30/16 documented as of this encounter
--- OUTSIDE RECORDS SUMMARY | 2024-01-11 13:21 | XMS_ITS | Encounter Summary ---
Author Organization Formerly [facility] [address] Care Team Providers Care Compensation Consultant Name Role Phone Dulce Hidalgo MD Primary Care Provider [phone] Reason for Visit * Reason Comments Follow-up Encounter Details Date Type Department Care Team (Late st Contact Info) Description 03/15/2017 10:40 AM EDT [place] [id number] Ariel Do MD [facility] [place] [address] Malignant neoplasm of ureter, unspecified laterality Social [...] Sign Reading Time Taken Comments Blood Pressure 153/60 03/15/2017 10:41 AM EDT Pulse 69 03/15/2017 10:41 AM EDT Temperature 36.5 ??C (97.7 ??F) 03/15/2017 10:41 AM E DT Respiratory Rate - - Oxygen Saturation 100% 03/15/2017 10:41 AM EDT Inhaled Oxygen Concentration - - Weight - - Height - - Body Mass Index - - documented in this encounter Patient Instructions * Patient Instructions* Gertrude Diaz RN - 03/15/2017 10:40 AM EDT Instructions following Cystoscopy Activity: As tolerated by your comfort level. Fluids: You should increase your water today. Avoid coffee, tea and cola. You do not need to [id number] ounces of water today. Urination: You will likely have a small amount of blood in your urine for the next several days. This is normal; however, if you are passing large amounts of blood clots or are unable to void please call our office at [phone] before 5PM or [phone] after hours. Please call if: * you have copious blood in your urine * fevers greater than 101.3 F * you are unable to void The number for questions is [phone] before 5 PM weekdays and [phone] after 5 PM and weekends. Follow-up: In [address] Do documented in this encounter Progress Notes * Ariel Do MD - 03/15/2017 10:40 AM EDT Patient Name: Isaura Aguiar Date of Service: 03/15/2017 Primary Care Provider: Dulce Hidalgo MD Reason for Visit: Isaura Aguiar is a 76 y.o. 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 She is on cycle 3 of adjuvant [place] CIsplat with Dr Mueller. They are thinking about completing treatment. She has no urinary symptoms. . No [...] no distress. Abdomen benign incision are well healed Cystoscopy 03/2017: Absent RUO, no recurrence. Some residual suture fragments, dissolving. Lab values are reviewed Impression: #1: Metastatic high grade Urothelial cancer of the right ureter, pT3pN2, s/p right nephroureteretcomy, negative bladder cuff margin #2 No extravasation seen on cystogram today #3: Stage 3a CRI #4: Morbid obesity #5: BRAC2 mutation #6: Moderate co-morbidity Plan: Cancer f/u with Dr Mueller Consider consolidation XRT upon completion of chemotherapy. 6 months with a cystoscopy Ariel Do documented in this encounter Procedure Notes * Ariel Do MD - 03/15/2017 10:40 AM EDTAssociated Order(s): CYSTOSCOPY Pre-Procedure Diagnose(s): Malignant neoplasm [...] position and effluxed clear urine. RU0 absent. Healing scar. Some residual dissolving suture fragments. The bladder was otherwise normal. There were no bladder tumors, mucosal abnormalities or bladder stones. The cystoscope was removed. The patient tolerated the procedure without difficulty. There were no complications. Ariel Do documented in this encounter Plan of Treatment Not on file documented as of this encounter Procedures Procedure Name Priority Date/Time Associated Diagnosis Comments CYSTOSCOPY Routine 03/15/2017 11:29 AM EDT Malignant neoplasm of ureter, unspecified laterality documented in this encounter Results * Cystoscopy (03/15/2017 11:29 AM EDT) Narrative Ariel Do MD - 03/15/2017 11:29 AM EDT Ariel Do MD ? 03/15/2017 11:29 AM Procedure: Flexible Cystoscopy Surgeon: Ariel Do [...] position and effluxed clear urine. RU0 absent. Healing scar. Some residual dissolving suture fragments. The bladder was otherwise normal. There were no bladder tumors, mucosal abnormalities or bladder stones. The cystoscope was removed. The patient tolerated the procedure without difficulty. There were no complications. Ariel Do Ariel Do MD PROCEDURE ORDERAB LES documented in this encounter Visit Diagnoses Diagnosis Malignant neoplasm of ureter, unspecified laterality documented in this encounter Care Teams Compensation Consultant Relationship Specialty Start Date End Date Dulce Hidalgo MD [facility] [address] [place] [address] PCP - General Family Medicine 09/30/16 documented as of this encounter
--- OUTSIDE RECORDS SUMMARY | 2024-01-11 13:21 | XMS_ITS | Encounter Summary ---
Author Organization [facility] Address [facility] [place] [address] Care Team Providers Care Sole Conditioner Name Role Phone Dulce Hidalgo MD Primary Care Provider [phone] Reason for Visit * Reason Comments IV Medication Hydration * Treatment/Therapy Plan Authorization (Routine) - Closed Specialty Diagnoses / Procedures Referred By Contmaury t Referred To Contact Diagnoses Metastatic urothelial carcinoma Danny Gordon MD [facility] DR HEMATOLOGY [place] [address] St Hem Onc Office [address] [place] [phone] Referral ID Status Reason Start Date Expiration Date Visits Re quested Visits Authorized [id number] Closed 12/06/2016 12/06/2017 1 1 Encounter Details Date Type Department Care Team (Late st Contact Info) Description 03/02/2017 9:00 AM EDT Infusion Hematology Oncology at [address] [phone] Dehydration; Neutropenia, drug-induced; Metastatic urothelial carcinoma Social History [...] Sign Reading Time Taken Comments Blood Pressure 150/86 03/02/2017 8:48 AM EDT Pulse 61 03/02/2017 8:48 AM EDT Temperature 36.5 ??C (97.7 ??F) 03/02/2017 8:48 AM ED T Respiratory Rate 20 03/02/2017 8:48 AM EDT Oxygen Saturation 100% 03/02/2017 8:48 AM EDT Inhaled Oxygen Concentration - - Weight - - Height 156 cm (5' 1.42) 03/02/2017 8:48 AM EDT copied Body Mass Index - - documented in this encounter Progress Notes * Neeru Reynoso RN - 03/02/2017 9:00 AM EDT INFUSION THERAPY ADMINISTRATION NOTES DIAGNOSIS: Ovarian Cancer REASON FOR VISIT: Hydration Cycle: 3 day 10 SUBJECTIVE Isauraclaudy Silverin offers no complaints. OBJECTIVE IV ACCESS: Mediport REACTIONS (DESCRIPTION, TIME, INTERVENTION AND EFFECTIVENESS) none ASSESSMENT .Isaura Aguiar was awake, alert and tolerated treatment well. PLAN Return to clinic per routine. documented in this encounter Plan of Treatment Not on file documented as of this encounter Visit Diagnoses Diagnosis Dehydration Neutropenia, drug-induced Drug induced neutropenia Metastatic urothelial carcinoma Secondary malignant neoplasm of other urinary organs documented in this encounter Administered Medications Inactive Administered Medications - up to 3 most recent administrations Medication Order MAR Action Action Date Dose Rate Site sodium chloride 0.9% infusion 1,000 mL, at 500 mL/hr, Intravenous, CONTINUOUS, Starting on Chloe 03/02/17 at 0915, Until Chloe 03/02/17 at 1320 New Bag 03/02/2017 9:00 AM EDT 1,000 mLs 500 mL/hr documented in this encounter Care Teams Sole Conditioner Relationship Specialty Start Date End Date Dulce Hidalgo MD [address] [place] [address] PCP - General Family Medicine 09/30/16 documented as of this encounter
--- OUTSIDE RECORDS SUMMARY | 2024-01-11 13:21 | XMS_ITS | Encounter Summary ---
Author Organization [facility] [place] [address] Care Team Providers Care Slot Floor Supervisor Name Role Phone Dulce Hidalgo MD Primary Care Provider [phone] Encounter Details Date Type Department Care Team (Late st Contact Info) Description 02/28/2017 11:00 AM EDT Office Visit Hematology/Oncology at [address] [phone] Danny Gordon MD [facility] [address] HEMATOLOGY [place] [address] Metastatic urothelial carcinoma; Dehydration; Neutropenia, drug-induced; Chemotherapy follow-up examination Social History Tobacco Use Types Packs/Day Years [...] Sign Reading Time Taken Comments Blood Pressure 159/74 02/28/2017 11:50 AM EDT Pulse 59 02/28/2017 11:50 AM EDT Temperature 36.4 ??C (97.5 ??F) 02/28/2017 11:50 AM E DT Respiratory Rate 16 02/28/2017 11:50 AM EDT Oxygen Saturation 100% 02/28/2017 11:50 AM EDT Inhaled Oxygen Concentration - - Weight 132.5 kg (292 lb) 02/28/2017 11:50 AM EDT Height 156 cm (5' 1.42) 02/28/2017 11:50 AM EDT Body Mass Index 54.43 02/28/2017 11:50 AM EDT documented in this encounter Progress Notes * Danny Gordno MD - 02/28/2017 11:00 AM EDT Diagnosis: Metastatic urothelial carcinoma Subjective:I [...] is in clinic for follow-up appointment and day # 8 of 3-rd cycle of chemotherapy. Chemotherapy was held last week due to neutropenia. Overall, she feels well today. She denies any fever, chills, nausea or vomiting. PMH: Rectal bleeding on February 092016 Mediport [...] drink alcohol, she used to work in [employer], retired 2002, she has 3 children. Family [...] Medications These changes are accurate as of: 02/28/17 11:57 AM. If you have any questions, ask [...] axillary nodes normal Neurologic: Normal Vitals BP 159/74 (Patient Position: Sitting) Pulse 59 Temp 36.4 ??C (97.5 ??F) (Oral) Resp 16 Ht 156 cm (5' 1.42) Wt (!) 132.5 kg (292 lb) SpO2 100% BMI 54.43 kg/m2 Pathology: 11/02/16 SYNOPTIC REPORT Specimen ?Procedure: [...] B10, B14 Normal Block(s): ?? B23 Labs: sodium 137, potassium 4.2, BUN 25, creatinine 1.51, Calcium 9.2, total bilirubin 0.35, AST 13, ALT 18, alkaline phosphatase 93, total protein 7.0, WBC 4.71, hemoglobin 9.2, platelet count 179, ANC 2.67 Imagin12/21/16 PET scan: IMPRESSION No evidence of [...] per [place] squared days 1 and 8. Last treatment was held due toy neutropenia. She had a tissue with worsening kidney function cisplatin and neutropenia No infections. we discussoptions: Discontinuation of chemotherapy versus continuation of chemotherapy with growth factor support and frequent IV hydrations. emphasized that she still may become neutropenicand have deteriorati on of her kideny function, but we can try. Mrs. Aguiar wants to proceed with chemotherapy. Blood counts are normal Today calculated creatinine clearance is 67 m/min. ANC 2.67. Platelet count is normal. We'll proceed with day 8 of third cycle of chemotherapy. WHydrationrange hydration on d# 10 and 14. # Creatinine: elevated # anemia: secondary to chemotherapy. Will monitor. # Rectal bleeding: follows with Dr. Hidalgo Plan: 1.Cisplatin/gemcitabine today + neulasta 2. NS 1 Lr IV on and Monday 3. Next visit in [address] Gordon with CBC, CMP [...] Priority Date/Time Associated Diagnosis Comments LAB SCAN 02/28/2017 12:00 AM EDT documented in this encounter Results * SCAN DOC: LAB (02/28/2017 12:00 AM EDT) Narrative 02/28/2017 12:00 AM EDT Ordered by an unspecified provider. Scanning Provider MEDIA MGR SCAN EXT O RDR/RSLT documented in this encounter Visit Diagnoses Diagnosis Metastatic urothelial carcinoma Secondary malignant neoplasm of other urinary organs Dehydration Neutropenia, drug-induced Drug induced neutropenia Chemotherapy follow-up examination documented in this encounter Care Teams Slot Floor Supervisor Relationship Specialty Start Date End Date Dulce Hidalgo MD [address] [place] [address] PCP - General Family Medicine 09/30/16 documented as of this encounter
--- OUTSIDE RECORDS SUMMARY | 2024-01-11 13:21 | XMS_ITS | Encounter Summary ---
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; Neutropenia, drug-induced Social History Tobacco Use Types Packs/Day Years [...] Sign Reading Time Taken Comments Blood Pressure 101/59 01/17/2017 9:07 AM EDT Pulse 64 01/17/2017 9:07 AM EDT Temperature 36.8 ??C (98.2 ??F) 01/17/2017 9:07 AM ED T Respiratory Rate 18 01/17/2017 9:07 AM EDT Oxygen Saturation 100% 01/17/2017 9:07 AM EDT Inhaled Oxygen Concentration - - Weight 129.3 kg (285 lb) 01/17/2017 9:07 AM EDT Height 156 cm (5' 1.42) 01/17/2017 9:07 AM EDT copied Body Mass Index 53.12 01/17/2017 9:07 AM EDT documented in this encounter Progress Notes * Sebastian Rand MD - 01/17/2017 9:00 AM EDT Diagnosis: Metastatic urothelial carcinoma Subjective:I [...] is here for discussion of adjuvant chemotherapy. SUBJECTIVE: Isaura comes in today for day one of a second cycle of cisplatin and gemcitabine being given weekly two weeks in a row with one week off with Cytokine support. She is tolerating the chemotherapy well with no nausea or vomiting. She is keeping hydrated overall. She has noticed some episodes of constipation which seem to be related to the time she takes magnesium. We discussed that as it is usually associated with loose bowels and not constipation. She has held the magnesium on a couple of occasions and her bowels got going better. With restarting it, they seem to slowly go back to being constipated again. She has also had a little bit of mild stomach upset but nothing she would actually call nausea. No vomiting. She has been physically active, was out picking blueberries over the weekend. She is ready for another cycle of treatment. Review of systems is otherwise negative with no neuropathy symptoms. No hearing problems. No other difficulties. PMH: No interval changes since last visit. [...] drink alcohol, she used to work in [employer], retired 2002, she has 3 children. Family [...] Medications These changes are accurate as of: 01/17/17 9:22 AM. If you have any questions, ask [...] axillary nodes normal Neurologic: Normal Vitals BP 101/59 (Patient Position: Sitting) Pulse 64 Temp 36.8 ??C (98.2 ??F) (Oral) Resp 18 Ht 156 cm (5' 1.42) Comment: copied Wt (!) 129.3 kg (285 lb) SpO2 100% BMI 53.12 kg/m2 Pathology: 11/02/16 SYNOPTIC REPORT Specimen ?Procedure: [...] residual parenchyma on the right. ??No lymphadenpathy ONCBCN ONCOLOGY (AMB) 12/27/2016 Day, Cycle Day 1, Cycle 1 CISplatin (PLATINOL) IV 35 mg/m2/dose = 84 mg GEMcitabine IV 1,000 mg/m2/dose = 2,400 mg pegfilgrastim (NEULASTA) SubQ ONCBCN ONCOLOGY (AMB) 01/03/2017 Day, Cycle Day 8, Cycle 1 CISplatin (PLATINOL) IV 35 mg/m2/dose = 84 mg GEMcitabine IV 1,000 mg/m2/dose = 2,400 mg pegfilgrastim (NEULASTA) SubQ 6 mg Laboratory today shows a sodium of 137, potassium 3.8, creatinine 1.41 which is baseline for her, GFR has fluctuated between 39.69 and 36.16 and it currently is 36.46. Calcium is normal at 9.3. Magnesium was not done today but alkaline phosphatase subtly increased at 119. Albumin is 3.2. CBC shows a white count of 13.65, hemoglobin 11.5, hematocrit 34.8, and platelet count of 163. Absolute neutrophil count 7.92. 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 We will go ahead with that. She does get magnesium with her chemotherapy so I am fine without the level today. I do think she should try to take the oral magnesium and see if the association with constipation continues as I think it is probably not related. Certainly the antiemetics we give her with chemotherapy can cause some constipation and that can wax and wane a bit. As far as her renal function goes, this is stable and there is no dose adjustments made in chemotherapy or her antiemetics today. She will be seen next week for week two of cisplatin with gemcitabine. She should have the following week off. 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
--- OUTSIDE RECORDS SUMMARY | 2024-01-11 13:21 | XMS_ITS | Encounter Summary ---
Author Organization [facility] Address [facility] [place] [address] Care Team Providers Care Software Controls Engineer Name Role Phone Dulce Hidalgo MD Primary Care Provider [phone] Reason for Visit * Reason Comments Chemotherapy Cycle 1 Day 1` * Treatment/Therapy Plan Authorization (Routine) - Closed Specialty Diagnoses / Procedures Referred By Christal t Referred To Contact Diagnoses Metastatic urothelial carcinoma Danny Gordon MD [facility] [address] [place] [address] St Hem Onc Office [address] [place] [phone] Referral ID Status Reason Start Date Expiration Date Visits Re quested Visits Authorized [id number] Closed 12/06/2016 12/06/2017 1 1 Encounter Details Date Type Department Care Team (Late st Contact Info) Description 12/27/2016 10:30 AM EDT Infusion Hematology Oncology at [address] [phone] Metastatic urothelial carcinoma Social History [...] as of this encounter Progress Notes * Carol Florian RN - 12/27/2016 10:30 AM EDT INFUSION THERAPY ADMINISTRATION NOTES DIAGNOSIS: Bladder Cancer CYCLE #:1 Day 1 REASON FOR VISIT: Chemotherapy SUBJECTIVE Isaura Aguiar offers no complaints. OBJECTIVE LAB DATA: WBC 6.45 H/H 12.9/38.7 Plt 235 ANC 3.90 Creatinine 1.31 IV ACCESS: Mediport accessed at [facility] for labs today. Steri strips intact. Flushed with Normal saline and Heparin and deaccessed prior to discharge Pre administration: Chemotherapy orders independently verified for drug name, route, and dosage per patient's height, weight and BSA by Mark ABREU & Chastity [facility] REACTIONS (DESCRIPTION, TIME, INTERVENTION AND EFFECTIVENESS) none ASSESSMENT Isaura Aguiar was awake, alert and tolerated treatment well. Pt. chemo teaching instructions included: During clinic hours (8am-5pm Monday-Monday): pt. can call [phone] with questions or concerns. After clinic hours (5pm-8am Monday-Monday and weekends) pt can call [phone] and ask for the paraffiner/oncologist international logistics analyst. Isaura Aguiar verbalized understanding of potential chemotherapy side effects and home care including but not limited to- handwashing to prevent infection, signs and symptoms of low blood counts (fever, fatigue, bleeding), to call with a fever of 100.4 or greater, any significant constipation/diarrhea, importance of nutrition and fluid intake (drinking at least 32-64 ounces of non-caffeinatedbeverages/day), mouth care. Isaura Aguiar verbalized understanding of how to take prescription medications given for home use after chemotherapy. Compazine PLAN Return to clinic per routine. documented [...] Recorded weight), Intravenous, ONCE, 1 dose, On Mon12/27/16 at 1230, Administer over 120 Minutes New Bag 12/27/2016 1:27 PM EDT 84 mg 167 mL/hr dexamethasone (DECADRON) tablet 10 mg 10 mg, Oral, ONCE, 1 dose, On Mon12/27/16 at 1130, Administer prior to chemotherapy, Routine Given 12/27/2016 11:20 AM EDT 10 mg fosaprepitant (EMEND) 150 mg in sodium chloride 0.9% 155 mL infusion 150 mg, Intravenous, ONCE, 1 dose, On Mon12/27/16 at 1130, Administer over 30 Minutes, Administer prior to chemotherapy. New Bag 12/27/2016 11:27 AM EDT 150 mg 310 mL/hr GEMcitabine 2,400 mg in sodium chloride 0.9% 313.1579 mL chemo infusion 2,400 mg (1,000 mg/m2/dose ? 2.4 m2 Treatment Plan BSA from Recorded weight), Intravenous, ONCE, 1 dose, On Mon12/27/16 at 1230, Administer over 30 Minutes New Bag 12/27/2016 12:29 PM EDT 2,400 mg 626 mL/hr heparin, porcine 100 unit/mL flush 500 Units 500 Units, Intravenous, ONCE PRN, Starting on Mon12/27/16 at 1108, Until Mon12/27/16 at 1826, Line Care, Refer to Intravenous (IV) Procedure: Accessing Implanted Vascular Access Devices (534) procedure and/or Intravenous (IV) Job Aid: Adult Flushing & Catheter Care (5922) job aid for additional information regarding guidelines and administration., Routine Given 12/27/2016 3:59 PM EDT 500 Units magnesium sulfate 1g in dextrose 5% 100mL 1 g, Intravenous, EVERY HOUR, 2 doses, First dose on Mon12/27/16 at 1500, Last dose on Mon12/27/16 at 1600, Administer over 60 Minutes, Total dose is 2 grams. Post - CISplatin New Bag 12/27/2016 2:00 PM EDT 1 g 100 mL/ hr palonosetron (ALOXI) injection 0.25 mg 0.25 mg, Intravenous, ONCE, 1 dose, On Mon12/27/16 at 1130, Administer over 30 seconds. Administer prior to chemotherapy, Routine Given 12/27/2016 11:23 AM EDT 0.25 mg sodium chloride 0.9 % flush 5-20 mL 5-20 mL, Intravenous, EVERY 1 MIN PRN, Starting on Mon12/27/16 at 1108, Until Mon12/27/16 at 1826, Line Care, Flush pertains to all indwelling lines. Flush per protocol found in the job aid using the link provided on this medication record. Refer to Intravenous (IV) Job Aid: Adult Flushing & Catheter Care (7435) job aid for additional information regarding guidelines and administration., Routine Given 12/27/2016 3:59 PM EDT 20 mLs sodium chloride 0.9% infusion 1,000 mL, at 500 mL/hr, Intravenous, CONTINUOUS, Starting on Mon12/27/16 at 1130, Until Mon12/27/16 at 1329, Pre CISplatin New Bag 12/27/2016 11:00 AM EDT 1,000 mLs 500 mL/hr sodium chloride 0.9% with potassium chloride 20 mEq infusion 1,000 mL, at 500 mL/hr, Intravenous, CONTINUOUS, Starting on Mon12/27/16 at 1500, Until Mon12/27/16 at 1826, Post - CISplatin New Bag 12/27/2016 1:05 PM EDT 1,000 mLs 500 mL/h r documented in this encounter Care Teams Software Controls Engineer Relationship Specialty Start Date End Date Dulce Hidalgo MD [facility] [address] [place] [address] PCP - General Family Medicine 09/30/16 documented as of this encounter
--- OUTSIDE RECORDS SUMMARY | 2024-01-11 13:21 | XMS_ITS | Encounter Summary ---
Author Organization [facility] Address [facility] [place] [address] Care Team Providers Care Business Process Lead Name Role Phone Dulce Hidalgo MD Primary Care Provider Reason for Visit * Reason Comments Chemotherapy * Treatment/Therapy Plan Authorization (Routine) - Closed Specialty Diagnoses / Procedures Referred By Contmaury t Referred To Contact Diagnoses Metastatic urothelial carcinoma Danny Gordon MD [facility] DR [place]AT[place]Y [place] [address] St Hem Onc Office [address] [place] [phone] Referral ID Status Reason Start Date Expiration Date Visits Re quested Visits Authorized [id number] Closed 12/06/2016 12/06/2017 1 1 Encounter Details Date Type Department Care Team (Late st Contact Info) Description 01/17/2017 9:30 AM EDT Infusion Hematology Oncology at [address] [phone] Neutropenia, drug-induced; Metastatic urothelial carcinoma [...] Progress Notes * Michaela Hernandez RN - 01/17/2017 9:30 AM EDT Isaura Aguiar, 76 y.o. female with diagnosis of metastatic urothelial carcinoma is here for chemotherapy infusion of Gemzar/Cisplatin. PROTOCOL: No CYCLE: 2 WEEK: 1 DAY: 1 S: Pt. offers no complaints at this time. O: Chemotherapy orders independently verified for correct drug name, route and dosage per patient'sheight, weight and BSA by Evangelina ABREU and onsite pharmacist REACTIONS (DESCRIPTION, TIME, INTERVENTION AND EFFECTIVENESS) NONE A: Pt. Tolerated treatment well. Isaura Aguiar confirms that all questions and issues have beenaddressed. P: Return to clinic per schedule documented in this encounter Plan of Treatment Not on file documented as of this encounter Procedures Procedure Name Priority Date/Time Associated Diagnosis Comments LAB SCAN 01/17/2017 12:00 AM EDT documented in this encounter Results * SCAN DOC: LAB (01/17/2017 12:00 AM EDT) Narrative 01/17/2017 12:00 AM EDT Ordered by an unspecified [...] Recorded weight), Intravenous, ONCE, 1 dose, On Mon01/17/17 at 1115, Administer over 120 Minutes New Bag 01/17/2017 11:56 AM EDT 84 mg 167 mL/hr dexamethasone (DECADRON) tablet 10 mg 10 mg, Oral, ONCE, 1 dose, On Mon01/17/17 at 1015, Administer prior to chemotherapy, Routine Given 01/17/2017 9:59 AM EDT 10 mg fosaprepitant (EMEND) 150 mg in sodium chloride 0.9% 155 mL infusion 150 mg, Intravenous, ONCE, 1 dose, On Mon01/17/17 at 1015, Administer over 30 Minutes, Administer prior to chemotherapy. New Bag 01/17/2017 10:15 AM EDT 150 mg 310 mL/hr GEMcitabine 2,400 mg in sodium chloride 0.9% 313.1579 mL chemo infusion 2,400 mg (1,000 mg/m2/dose ? 2.4 m2 Treatment Plan BSA from Recorded weight), Intravenous, ONCE, 1 dose, On Mon01/17/17 at 1115, Administer over 30 Minutes New Bag 01/17/2017 10:47 AM EDT 2,400 mg 626.3 mL/hr heparin, porcine 100 unit/mL flush 500 Units 500 Units, Intravenous, ONCE PRN, Starting on Mon01/17/17 at 0949, Until Mon01/17/17 at 1635, Line Care, Refer to Intravenous (IV) Procedure: Accessing Implanted Vascular Access Devices (084) procedure and/or Intravenous (IV) Job Aid: Adult Flushing & Catheter Care (6002) job aid for additional information regarding guidelines and administration., Routine Given 01/17/2017 2:29 PM EDT 500 Units magnesium sulfate 1g in dextrose 5% 100mL 1 g, Intravenous, EVERY HOUR, 2 doses, First dose on Mon01/17/17 at 1345, Last dose on Mon01/17/17 at 1500, Administer over 60 Minutes, Total dose is 2 grams. Post - CISplatin New Bag 01/17/2017 1:19 PM EDT 1 g 100 mL/hr New Bag 01/17/2017 12:18 PM EDT 1 g 100 mL/hr palonosetron (ALOXI) injection 0.25 mg 0.25 mg, Intravenous, ONCE, 1 dose, On Mon01/17/17 at 1015, Administer over 30 seconds. Administer prior to chemotherapy, Routine Given 01/17/2017 10:00 AM EDT 0.25 mg sodium chloride 0.9 % flush 5-20 mL 5-20 mL, Intravenous, EVERY 1 MIN PRN, Starting on Mon01/17/17 at 0949, Until Mon01/17/17 at 1635, Line Care, Flush pertains to all indwelling lines. Flush per protocol found in the job aid using the link provided on this medication record. Refer to Intravenous (IV) Job Aid: Adult Flushing & Catheter Care (8420) job aid for additional information regarding guidelines and administration., Routine Given 01/17/2017 2:29 PM EDT 20 mLs sodium chloride 0.9% infusion 1,000 mL, at 500 mL/hr, Intravenous, CONTINUOUS, Starting on Mon01/17/17 at 1015, Until Mon01/17/17 at 1214, Pre CISplatin New Bag 01/17/2017 9:45 AM EDT 1,000 mLs 500 mL/hr Implanted Port sodium chloride 0.9% with potassium chloride 20 mEq infusion 1,000 mL, at 500 mL/hr, Intravenous, CONTINUOUS, Starting on Mon01/17/17 at 1345, Until Mon01/17/17 at 1635, Post - CISplatin New Bag 01/17/2017 12:13 PM EDT 1,000 mLs 500 mL/hr documented in this encounter Care Teams Business Process Lead Relationship Specialty Start Date End Date Dulce Hidalgo MD [facility] [address] [place] [address] PCP - General Family Medicine 09/30/16 documented as of this encounter
--- OUTSIDE RECORDS SUMMARY | 2024-01-11 13:21 | XMS_ITS | Encounter Summary ---
Author Organization [facility] Address [facility] [place] [address] Care Team Providers Care Seo Engineer Name Role Phone Dulce Hidalgo MD Primary Care Provider [phone] Reason for Visit * Consultation (Routine) - Closed Specialty Diagnoses / Procedures Referred By Christal lainez Referred To Contact Radiation Oncology Diagnoses Metastatic urothelial carcinoma Danny Gordon MD [facility] [address] [place] [address] Stj Rad Onc Treatment [address] [place] [phone] Referral ID Status Reason Start Date Expiration Date V isits Requested Visits Authorized [id number] Closed Consult, Test & Treat 03/21/2017 03/21/2018 1 1 Encounter Details Date Type Department Care Team (Late st Contact Info) Description 03/27/2017 11:00 AM EDT Office Visit Radiation Oncology at [address] [phone] Iftikhar Greene MD [address] [place] [address] [place] [address] Malignant neoplasm of right ureter Social History [...] Sign Reading Time Taken Comments Blood Pressure 140/100 03/27/2017 10:32 AM EDT Pulse 99 03/27/2017 10:32 AM EDT Temperature 36.5 ??C (97.7 ??F) 03/27/2017 10:32 AM E DT Respiratory Rate 16 03/27/2017 10:32 AM EDT Oxygen Saturation 100% 03/27/2017 10:32 AM EDT Inhaled Oxygen Concentration - - Weight 133.5 kg (294 lb 6 oz) 03/27/2017 10:32 A M EDT Height 156 cm (5' 1.42) 03/27/2017 10:32 AM EDT Body Mass Index 54.87 03/27/2017 10:32 AM EDT documented in this encounter Patient Instructions * Patient Instructions* Iftikhar Greene MD - 03/27/2017 11:00 AM EDT Dear Ms. Aguiar, Dr. Gordon asked for me to see you to discuss how radiation therapy can be used to treat your ureteral cancer and this note is to recap our discussion regarding use of radiation treatments. As your radiation oncologist, I work closely with your other healthcare providers and most importantly, with you to make sure that the treatments we discuss and offer keep your personal preferences and goals in mind. We discussed the following next steps as part of your cancer evaluation and/or treatment: ?? Radiation treatments for Stage IV ureteral cancer: Because of the lymph node involved with your cancer, this is stage IV. However all of the scans that you had so far do not show any evidence of cancer outside of the pelvis. The reason to consider radiation is that there is left over cancer thatcould not be removed by the surgery. There are some small studies have looked at patients in your si tuation, and in general it seems that adding radiation to chemotherapy does improve the chance of curing this cancer. ?? Other treatment options include: no radiation Mapping scan to plan your radiation treatments: Your radiation therapy will involve using high energy radiation which kills cancer but also normal healthy tissues. In order to make sure the radiation goes to the cancerous tissues and to also avoid radiating the normal tissues, we design radiationbeams beams into special shapes which come from various different directions. Because no two peopleand no two cancers are completely identical, the radiation plan we create for you will be unique toyou and your body. In order to figure out how many beams to use, how much radiation to give, which angles they should come from, and how they should be shaped, we have asked you to undergo a mapping scan here in our department known as a CT simulation, or CT sim, for short. This is essentially a CAT-scan similar to scans which you may have received before, but slightly different in a few ways: First, it allows us to place you in the exact same position which you should expect to be placed during each of your radiation treatment sessions. Second, it lets us better understand where the radiation targets and the normal tissues that we want to avoid exist, in relation to each other and the radiation beams. Following this scan, we then perform additional calculations and measurements to create the absolute best plan possible for you. Depending on the complexity of the plan, these processescan take from just few hours to several days, and for that we ask for your patience. If you have any questions about the planning process or your custom radiation plan, I would be more than happy to review the plan with you during your first week of treatment. I anticipate you will receive 25 treatments total, daily Monday-Monday for 5 weeks. Your start date and time will be provided once the simulation scan is completed. During your radiation treatments, you can expect to see me once per week so that I can examine you to make sure you are tolerating radiation treatments and so that we can monitor your response to treatment. If you need to see me any other day, one of my colleagues or I would be happy to see you - just ask one of the radiation therapists or radiation nurses for assistance. ?? Side effects of treatment: We briefly discussed short term (temporary) side effects of treatmentas well as possible mcfp (late, permanent) side effects of radiation treatment. If they occur,short term side effects may include fatigue nausea or diarrhea. correction side effects may include permanent damage to the bowels. Any amount of radiation can also increase the risk of developing a cancer later in life caused by radiation. This is a low but real risk, and it grows over time. We estimate that your risk of a radiation caused cancer grows by 1% over the general population risk for each 10 years you are alive. Please do not hesitate to call me at [phone] with any other questions or concerns you have. IfI am not here, one of our radiation oncology nurses can assist you or help you get in touch with me. A Radiation Oncology doctor is also data communications technician after our normal hours and on weekends for urgent questions or concerns related to radiation treatments that can not wait until normal business hours. To reach the on-call doctor after-hours, just call and have the electronic imaging system operator page the Radiation Oncologist data communications technician. And, as always, if you experience any life-threatening emergencies which any include the following,you need to seek emergency care immediately by calling 911: 1. Sudden and unexpected breathing difficulty without any exertion 2. Sudden onset of chest pain 3. Sudden onset of severe pain or uncontrolled pain 4. Sudden onset of severe weakness and/or unable to walk 5. Sudden new onset of a seizure 6. Fall resulting in injury 7. Uncontrollable bleeding Iftikhar Villa MD [employer] flatbed driver Radiation Oncology [facility] documented in this encounter Progress Notes * Iftikhar Greene MD - 03/27/2017 11:00 AM EDT Images from the original note were not included. Radiation Oncology Consult Note Iftkihar Greene MD, MS [facility] [phone] PATIENT IDENTIFICATION: PATIENT NAME: Isaura Aguiar DATE OF : 1940 REFERRING PROVIDER: Danny Gordon MD [facility] HEMATOLOGY/[place] [address] REASON FOR CONSULTATION : Ureteral cancer Staging form: Renal Pelvis and Ureter, AJCC 7th Edition - Clinical: Stage IV (T3, N2, M0) - Signed by Iftikhar Greene MD on 03/24/2017 HISTORY OF PRESENT ILLNESS: Isaura Aguiar is a 76 y.o. female recently diagnosed with a high-grade urothelial carcinoma in the setting of worsening right flank pain and hematuria. CT of the abdomen and pelvis 09/22/16 showeda right sided hydronephrosis with a distal ureteral mass extending into the bladder. Cystoscopy 10/05/16 showed a right ureteral orifice that was distended by a large tumor. The bladderitself was otherwise normal-appearing. Ureteroscopy was performed on that day. Robot-assisted right nephroureterectomy was performed 11/02/2016. Due to extensive adhesions, this had to be converted to an open surgery. Findings at the time of resection included a distal right ureter that was densely adherent to the right common iliac artery and vein. Gross residual disease was left behind with clips marking area of concern. Final pathology showed a 4 cm high-grade urothelial carcinoma with a positive margin at the periurethrum, with a single lymph node positive. Would appear that the positive margin stems from the lymphnode itself. In addition there were other sites of disease along the course of the ureter. Her case was discussed at tumor board 11/17/2016 recommendation for adjuvant sequential chemotherapy followed by radiotherapy to the pelvis. Prior to starting chemotherapy PET/CT 12/13/2016 showed no evidence of disease. She has recently completed 3 cycles of gemcitabine/cisplatin and anticipate restaging PET 04/07/2017. She is referred today for discussion of adjuvant radiotherapy for her stage IV high-grade urothelial carcinoma resected with a positive margin. REVIEW OF SYSTEMS: On further questioning, she reports feeling essentially her usual state of health. She has some ongoing fatigue, dyspnea and back pain. She reports easy bruisability to the fact that she recently started Xarelto for a DVT. A comprehensive 14 point review of systems was conducted with this patient and is otherwise negative except as documented above. This patient reported questionnaire is available for review in 'scanned documents.' PAST MEDICAL HISTORY Past Medical History: Diagnosis Date ??? Benign essential tremor ??? 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 Hypertension ??? Osteopenia 01/22/2011 ??? Stage III Ovarian cancer Past Surgical History: Laterality Date ??? partial bowel resection Procedure Date: Unknown ??? appendectomy Procedure Date: Unknown ? LYMPH NODE BIOPSY,DEEP AXILLARY / LEFT/RIGHT/SENTINEL NODE EXCISION Procedure Date: 06/02/2006 ??? Right meniscus repair Procedure Date: Unknown JOANN/BSO Procedure Date: Unknown ??? N/A 11/02/2016 LAPAROSCOPIC, EXTENSIVE LYSIS ADHESIONS (WRVU *) performed by Ariel Do MD at [facility] OR ??? Right 11/02/2016 @LAPAROSCOPY TOTAL NEPHROURETERECTOMY, ROBOTICS ASSIST (WRVU 25.36) performed by [facility]el [facility]at [facility] CONTRAINDICATIONS TO RADIATION THERAPY: None ?? Prior radiation therapy: No ?? Active Lupus: No ?? Systemic Scleroderma: No MEDICATIONS AND ALLERGIES: Medications 03/27/17 1101 Medication Sig Taking? omeprazole (PRILOSEC) 10 mg Capsule, Delayed Release(E.C.) Take 10 mg by mouth daily. Daily as needed Yes rivaroxaban (XARELTO) 15 mg Tablet Take 1 tablet by mouth 2 times daily. lactobacillus rhamnosus, GG, (CULTURELLE) 10 billion cell Capsule Take 1 capsule by mouth daily. magnesium oxide (MAG-OX) 400 mg Tablet Take 1 tablet by mouth daily. docusate sodium (COLACE) 100 mg Capsule Take 100 mg by mouth 2 times daily. Calcium Carbonate-Vitamin D3 600 mg(1,500mg) -400 unit Tab Take 1 tablet by mouth daily. Reported on 01/03/2017 hydrochlorothiazide (HYDRODIURIL) 25 mg tablet Take 25 mg by mouth daily. aspirin 81 mg EC tablet Take 81 mg by mouth daily. atenolol (TENORMIN) 50 mg tablet simvastatin (ZOCOR) 10 mg tablet ACETAMINOPHEN (TYLENOL ORAL) Allergies Allergen Reactions ??? Glucosamine-Chondroitn Sulf.Na Nausea Only Intense cramping too ??? Iv 3000 [Transparent Dressings] Rash Erythema, blisters ??? 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 PHYSICAL EXAM BP (!) 140/100 (Patient Position: Sitting) Pulse 99 Temp 36.5 ??C (97.7 ??F) (Oral) Resp 16 Ht 156 cm (5' 1.42) Wt (!) 133.5 kg (294 lb 6 oz) SpO2 100% BMI 54.87 kg/m2 General: alert, well appearing, and in no distress sitting in exam room with at side Physical Exam TODAY'S PERFORMANCE STATUS: KPS Score ECOG Grade Definition 90-100 0 Fully active, able to carry on all pre-disease performance without restriction X 70-80 1 Restricted in physically strenuous activity [...] selfcare; totally confined to bed or chair PATHOLOGY REVIEW: Pathology was reviewed in the medical record and is summarized below: Site: Right nephroureterectomy Histology / Grade: High grade, 4cm urothelial ca Margin / Armen status: 1 of [address]+ (N2 by size). Positive radial margin at iliac vessels. Proximal and distal margins negative. Other prognostic factors: n/a [place] [facility] [place] IMAGING REVIEW: I have personally reviewed the following images. CT A/P 09/2016 and PET 12/2016 Client Care Consultant imagesare copied below. Arrow indicates lymph node with indistinct borders likely representing extra armen extension that was adherent to the iliac vessels at time of resection. ASSESSMENT / PLAN: Isaura Aguiar is a 76 y.o. female diagnosed with a high-grade urothelial carcinoma of the rightureter, status post resection with a positive margin and multiple foci of disease. I discussed with Ms. Aguiar that she has several adverse pathologic factors, notably high-grade positive margin and multifocal disease. I discussed that there is no randomized data guiding our therapy but that based on first principles local regional therapy with consolidative chemoradiation shouldoffer benefit to improve local regional control. A retrospective study by Dr. Carr and colleagues published in the Journal of Urology in 2003 showed that the use of adjuvant chemoradiation improved overall survival in patients with Stage III/IV urothelial carcinoma decreased from 27 to 67%. I will discuss with Dr. Gordon whether or not concurrent chemoradiation would be of benefit, as retrospective data would suggest. However she has clearly had progressive systemic therapy already, who is not clear what the additional benefit of low-dose chemosensitization might be in this scenario, again given the paucity of data guiding our decision-making. At this point we will see Isaura back after her restaging PET/CT for simulation and radiation planning purposes. Appointment will be scheduled for April 12. All of this patient's questions were answered to her fullest satisfaction, and we have provided herwith our contact information should any further questions or concerns arise. This note was created using [employer] 24/7 dictation software and proofread for accuracy. Please excuse any residual typographical errors. SUMMARY OF PLAN / RECOMMENDATION: 1. Intent of therapy: Curative 2. Clinical Trial Availability: No 3. Discuss chemoradiation with Dr. Gordon TIME ATTESTATION: Greater than 50% of this 60 minute visit was spent with the patient [id number] reviewing her interval medical history and answering questions related to her ureteral cancer. IFTIKHAR GREENE MD, MS * Nathalia Desir RN - 03/27/2017 11:00 AM EDT RADIATION ONCOLOGY NURSING INITIAL NURSING ASSESSMENT IDENTIFICATION: Isaura Aguiar is a 76 y.o. year-old female with urothelial cancer PRESENTING SYMPTOMS/CHIEF COMPLAINT REVIEW OF SYSTEMS: IN THE PAST 12 MONTHS HAVE YOU: Fallen more than one time? No Injured yourself as result of the fall? Experienced difficulty with walking? Legs weak (If patient does not know or declines to answer, please note in the 3 star option) If patient answered yes to any of the above, please offer to print out one of the following resources that may apply to them: Stay Independent http://www.cdc.gov/steadi/pdf/stay_independent_brochure-a.pdf What you can do to prevent falls http://www.cdc.gov/steadi/pdf/what_you_can_do_brochure-a.pdf Check for Safety-A home fall prevention checklist for older adults http://www.cdc.gov/steadi/pdf/check_for_safety_brochure-a.pdf Postural Hypotension-What is it and how to manage it http://www.cdc.gov/steadi/pdf/postural_hypotension-a.pdf Chair Rise Exercises to strengthen the muscles of things and buttocks http://www.cdc.gov/steadi/pdf/chair_rise_exercise-a.pdf Any Implanted Devices/Hardware: knee replacement bilateral, venous access device Prior Radiotherapy: No Site: N/A Date: Physician/Location: Prior Chemotherapy: Yes Drug(s): [place]/Cisplatin Physician/Location: Dr Gordon Date of last treatment: 02/28 Prior Hormone Therapy: yes Drug(s): Arimidex Physician/Location: Dr Rios [facility] RADIOLOGY SAFETY QUESTIONS REVIEWED: If applicable MRICTSAFETYQUESTIONS LEARNING ASSESSMENT REVIEWED: To be done ADVANCED DIRECTIVE: Yes PAIN ASSESSMENT: none D-H Adult PCS Flow Sheet if 4 or above SOCIAL ASSESSMENT: See EDH social assessment information entered. Support Systems: Barriers to treatment: nonw Referrals/Interventions: RADIATION SPECIFIC TEACHING: [facility] Radiation Therapy and You Site specific teaching : Other: PLAN: documented in this encounter Plan of Treatment Not on file documented as of this encounter Visit Diagnoses Diagnosis Malignant neoplasm of right ureter Malignant neoplasm of ureter documented in this encounter Care Teams Seo Engineer Relationship Specialty Start Date End Date Dulce Hidalgo MD [address] [place] [address] PCP - General Family Medicine 09/30/16 documented as of this encounter
--- OUTSIDE RECORDS SUMMARY | 2024-01-11 13:21 | XMS_ITS | Encounter Summary ---
Author [place] [address] Care Team Providers Care Internal Control Consultant Name Role Phone Dulce Hidalgo MD Primary Care Provider [phone] Reason for Visit * Reason Onset Date Comments Chemotherapy 12/28/2016 Encounter Details Date Type Department Care Team (Late st Contact Info) Description 12/28/2016 Telephone Hematology Oncology at [address] [phone] Nathalia Desir I RN Chemotherapy Social History Tobacco Use Types Packs/Day Years [...] Telephone Encounter - Nathalia Desir RN - 12/28/2016 2:02 PM EDT Post chemo call Placed call to patient to assess tolerance of first time chemotherapy treatment. Regimen received: Cisplatin, Gemcitabine Date of treatment: 12/27 Assessment: Symptom?? Present (yes[y]/no[n]/ stable[s] from baseline)?? Additional information/Assessment?? GI? Nausea?none ?? Vomiting?? none ?? Nausea medication? Tolerating diet?? yes ?? Maintaining fluid intake (indicate volume)?? 72 ounces ?? Bowel movements regular?? yes ?? Diarrhea?none ?? Mouth sores?none ?? General? Pain (0 none - 10 high)? Using pain medications?? Fever? Neuro? Level of fatigue (0 - 5)?spaces acitvities ?? Falls? Numbness/tingling in arms/legs? Cognitive changes?none ?? Skin? Skin changes? Pinpoint red dots? Other s/s of bleeding? IV site/VAD problems? Musculoskeletal? Joint swelling or tenderness? Arthralgias or myalgias? Voiding problems?? none ?? Color and quality of urine?? yellow ?? Cardio-pulmonary? Shortness of breath? Chest pain? Swelling in legs? Calf pain or tenderness? Cough (productive/non-productive)? Psychosocial? Coping? I? Need prescription renewals? Other issues :?? Anxiety. Support provided ?? Education provided: ?? Plan:? 1. 2. Reinforced to patient/care-vice president of contracts to call facility 02/01 with any new/worsening signs and symptomsor concerns or questions.?? Phone number provided.?? Pt verbalized understanding and is in agreement with plan. ? documented in this encounter Plan of Treatment Not on file documented as of this encounter Visit Diagnoses Not on filedocumented in this encounter Care Teams Internal Control Consultant Relationship Specialty Start Date End Date Dulce Hidalgo MD [address] [place] [address] PCP - General Family Medicine 09/30/16 documented as of this encounter
--- OUTSIDE RECORDS SUMMARY | 2024-01-11 13:21 | XMS_ITS | Encounter Summary ---
Author Organization [facility] [place] [address] Care Team Providers Care Academic Vice President Name Role Phone Dulce Hidalgo MD Primary Care Provider [phone] Reason for Visit * Reason Comments Follow-up Encounter Details Date Type Department Care Team (Late st Contact Info) Description 02/07/2017 8:30 AM EDT Office Visit Hematology/Oncology at [address] [phone] Danyn Gordon MD [facility] [address] [place] [address] Metastatic urothelial carcinoma; Anemia, secondary; Elevated serum creatinine Social History Tobacco Use [...] Sign Reading Time Taken Comments Blood Pressure 135/58 02/07/2017 7:59 AM EDT Pulse 97 02/07/2017 7:59 AM EDT Temperature 36.8 ??C (98.2 ??F) 02/07/2017 7:59 AM ED T Respiratory Rate 16 02/07/2017 7:59 AM EDT Oxygen Saturation 97% 02/07/2017 7:59 AM EDT Inhaled Oxygen Concentration - - Weight 131.5 kg (290 lb) 02/07/2017 7:59 AM EDT Height 156 cm (5' 1.42) 02/07/2017 7:59 AM EDT Body Mass Index 54.05 02/07/2017 7:59 AM EDT documented in this encounter Progress Notes * Danny Gordon MD - 02/07/2017 8:30 AM EDT Diagnosis: Metastatic urothelial carcinoma [...] follow-up appointment and 3-rd cycle of chemotherapy. She tolerated last dose of gemcitabine well. Denies any nausea, vomiting, fever, chills or pain. No changes in bowel movements or urination. PMH: No interval changes since last visit. [...] drink alcohol, she used to work in [employer], retired 2002, she has 3 children. Family [...] Medications These changes are accurate as of: 02/07/17 8:51 AM. If you have any questions, ask [...] axillary nodes normal Neurologic: Normal Vitals BP 135/58 (Patient Position: Sitting) Pulse 97 Temp 36.8 ??C (98.2 ??F) (Oral) Resp 16 Ht 156 cm (5' 1.42) Wt (!) 131.5 kg (290 lb) SpO2 97% BMI 54.05 kg/m2 Pathology: 11/02/16 SYNOPTIC REPORT Specimen ?Procedure: [...] Block(s): ?? B23 Labs: Sodium 138, potassium 4.0, BUN 25, creatinine 1.69, glucose 154, calcium 8.7, total bilirubin0.25, AST 13, ALT 20, alkaline phosphatase 136, total protein 6.8, albumin 3.3. WBC 12.91, hemoglobin 9.5, platelet count 192, ANC 9.3. Imagin12/21/16 PET scan: IMPRESSION No evidence of [...] cisplatin 35 mg/m2 gemcitabine 1000 mg per [place] squared days 1 and 8. Last treatment cisplatin was held due to worsening of kidney function. Today creatinine is 1.69. Wewill hold chemotherapy for one week and hydrate her with 1 L of normal saline today. Overall, she feels well. If her kidney function does not recover I plan to discontinue chemotherapy # Creatinine: elevated # anemia: secondary to chemotherapy. Will monitor. Plan: 1.Hold Cisplatin/gemcitabine today 2. NS 1 Lr IV today 3. Next visit in [address] Gordon with CBC, CMP and 3-rd cycle of cisplatin/gemcitabine The plan was discussed [...] Priority Date/Time Associated Diagnosis Comments LAB SCAN 02/07/2017 12:00 AM EDT CHEMOTHERAPY SCAN 02/07/2017 12: 00 AM EDT documented in this encounter Results * SCAN DOC: CHEMOTHERAPY (02/07/2017 12:00 AM EDT) Narrative 02/07/2017 12:00 AM EDT Ordered by an unspecified provider. Scanning Provider MEDIA MGR SCAN EXT O RDR/RSLT * SCAN DOC: LAB (02/07/2017 12:00 AM EDT) Narrative 02/07/2017 12:00 AM EDT Ordered by an unspecified provider. Scanning Provider MEDIA MGR SCAN EXT O RDR/RSLT documented in this encounter Visit Diagnoses Diagnosis Metastatic urothelial carcinoma Secondary malignant neoplasm of other urinary organs Anemia, secondary Anemia, unspecified Elevated serum creatinine Other nonspecific findings on examination of blood documented in this encounter Care Teams Academic Vice President Relationship Specialty Start Date End Date Dulce Hidalgo MD [address] [place] [address] PCP - General Family Medicine 09/30/16 documented as of this encounter
--- OUTSIDE RECORDS SUMMARY | 2024-01-11 13:21 | XMS_ITS | Encounter Summary ---
Author Organization [facility] [place] [address] Care Team Providers Care Knurling Machine Tender Name Role Phone Dulce Hidalgo MD Primary Care Provider [phone] Encounter Details Date Type Department Care Team (Late st Contact Info) Description 12/27/2016 Notes Only Hematology Oncology at [address] [phone] Donya Cornejo MSW OFFICE OF CARE MANAGEMENT Social History Tobacco Use Types Packs/Day Years Used Date Smoking Tobacco: Never Smokeless Tobacco: Never Alcohol Use Standard Drinks/Week Comments No 0 (1 standard drink = 0.6 oz pur e alcohol) Sex and Gender Information Value Date Recorded Sex Assigned at Not on file Gender Identity Not on file Sexual Orientation Not on file documented as of this encounter Progress Notes * Donya Cornejo MSW - 12/27/2016 12:03 PM EDT Reason for Referral: Brief assessment of social and emotional needs. Met with pt and duringinfusion today. Social Supports: Pt's primary support is her Taran of 53 years. They have 2 daughters lisbeth son. All of their children live in [place] and daughter Caity lives in a nearby town. Living Situation/Daily Activities/Transportation: Pt indicated she and her manage their daily chores and activities. They do not expect any problems with transportation. Work/Finances/Insurance: Pt retired from the [employer]. Her is retired also. Pt has Medicare and for insurance. They did not indicate any concerns re finances or insurance. Advance Directives: Pt has completed her advance directives and a copy is in her record. Utilization of Community Resources: None at this time. Adjustment to Illness/Mental Health Issues: Pt indicated she is coping the best she can. She indicated she is a positive person. She has support from her family. She enjoys reading and quilting. Identified Needs: Pt did not identify any specific needs at this time. Referrals: None at this time. Plan: Gave pt my contact information and informed her of my availability. Will follow for support and resources. documented in this encounter Plan of Treatment Not on file documented as of this encounter Visit Diagnoses Not on filedocumented in this encounter Care Teams Knurling Machine Tender Relationship Specialty Start Date End Date Dulce Hidalgo MD [address] [place] [address] PCP - General Family Medicine 09/30/16 documented as of this encounter
--- OUTSIDE RECORDS SUMMARY | 2024-01-11 13:21 | XMS_ITS | Encounter Summary ---
[place] [address] Care Team Providers Care Chipping Machine Operator Name Role Phone Dulce Hidalgo MD Primary Care Provider [phone] Reason for Visit * Reason Onset Date Comments Follow-up 12/28/2016 Encounter Details Date Type Department Care Team (Late st Contact Info) Description 12/28/2016 Telephone Hematology/Oncology at [address] [phone] Sehrly Herrera RN Follow-up Social History Tobacco Use Types Packs/Day Years [...] Telephone Encounter - Sherly Herrera RN - 12/28/2016 1:57 PM EDT Called pt to see how she is doing on first day post chemo. She states she urinated normal this AM good flow and clear pale yellow. She has dran about 72 oz today. She just voided in last hour and states flow is a bit different and urine is darker, not bloody, and less amount. She is concerned aboutthat. She has no fever or chills. She is moving bowels. No nausea eating well. She did drink 2 glasses of V-8 juice yesterday. I tld her I would let Dr. Gordon know and if he wants to change anything I would call her back. documented in this encounter Plan of Treatment Not on file documented as of this encounter Visit Diagnoses Not on filedocumented in this encounter Care Teams Chipping Machine Operator Relationship Specialty Start Date End Date Dulce Hidalgo MD [address] [place] [address] PCP - General Family Medicine 09/30/16 documented as of this encounter
--- OUTSIDE RECORDS SUMMARY | 2024-01-11 13:21 | XMS_ITS | Encounter Summary ---
[place] [address] Care Team Providers Care Web Manager Name Role Phone Dulce Hidalgo MD Primary Care Provider [phone] Reason for Visit * Reason Onset Date Comments Allergic Reaction 12/26/2016 Encounter Details Date Type Department Care Team (Late st Contact Info) Description 12/26/2016 [place] [phone] Bryson Salazar APRN [facility] [place] [address] Allergic Reaction Social History Tobacco Use Types Packs/Day Years [...] encounter Miscellaneous Notes * Telephone Encounter - Bryson Salazar APRN - 12/26/2016 9:33 AM EDT Isaura called today with concerns of contact dermatitis from the IV 3000 dressing. Patient underwent placement of a chest port on 12/21/16. Patient has a known allergy to Tegaderm andas such IV 3000 was placed. About 36 hours following the procedure, patient reported itching along the lateral portion of the both the venotomy and port dressings. She then developed erythema along those areas, but none along the top, bottom, or medial edges. The dressings were removed, and patientreported mild tissue loss (superficial) on 2 spots. All affected areas are resolving, and she feelsis looks much better. No pain. I cautioned her about using the Aquagard for showering, but she feels because it will only be on for 5-10 minutes, it should be fine. She will continue monitoring the skin, and will call if there is any new erythema, blisters, or other issues. documented in this encounter Plan of Treatment Not on file documented as of this encounter Visit Diagnoses Not on filedocumented in this encounter Care Teams Web Manager Relationship Specialty Start Date End Date Dulce Hidalgo MD [address] [place] [address] PCP - General Family Medicine 09/30/16 documented as of this encounter
--- OUTSIDE RECORDS SUMMARY | 2024-01-11 13:21 | XMS_ITS | Encounter Summary ---
[place] [address] Care Team Providers Care Faculty Research Assistant Name Role Phone Dulce Hidalgo MD Primary Care Provider [phone] Encounter Details Date Type Department Care Team (Late st Contact Info) Description 04/12/2017 11:30 AM EDT Ancillary Appointment Radiation Oncology at [address] [phone] German Greene MD [address] [place] [address] DR RADIATION ONCOLOGY [place], [place] [id number] Social History Tobacco Use Types Packs/Day Years [...] Notes * German Greene MD - 04/12/2017 11:30 AM EDT Simulation Note for External Beam Radiation Treatment Planning [facility] Kael Aguiar is a 76 y.o. year old female with Stage IV ureteral cancer who was simulated for adjuvant radiotherapy to her pelvis today. No changes were made from the plan as documented in the original simulation order and instructions. Briefly, she was immobilized using an indexed knee roll. A 2.5mm slice thickness CT scan of the patient's pelvis was then obtained. This scan was performed to delineate both target volumes and organs/structures at risk. These images will be used to create a customized treatment plan employing multileaf collimators and beams-eye view to treat the target to prescription dose while maximally sparingorgans at risk, with the overall goal of maximizing the likelihood of a favorable disease response while minimizing the likelihood of any short term side effects or terminal clerk complications of therapy. I anticipate her prescription dose will be 55 Gy to the grossly positive margin, delivered in daily2.2 Gy fractions over the course of 25 weeks. Anticipate therapy to begin within the next 7 days. Furthermore, I anticipate this patient will require 3D conformal treatment planning as multiple conformal portals will be contructed to adequately cover the critical structures of interest (in this case, the tumor bed) with close margins that protect immediately adjacent sensitive structures (including her residual left kidney, bowel, and uninvolved bladder). If dosimetric constraints for a safe and efficacious radiotherapy plan cannot be met using 3D conformal therapy, a IMRT or VMAT approach will be considered. The patient tolerated this procedure well, and was provided instructions with regard to upcoming appointments. documented in this encounter Plan of Treatment Not on file documented as of this encounter Visit Diagnoses Not on filedocumented in this encounter Care Teams Faculty Research Assistant Relationship Specialty Start Date End Date Dulce Hidalgo MD [address] [place] [address] PCP - General Family Medicine 09/30/16 documented as of this encounter
--- OUTSIDE RECORDS SUMMARY | 2024-01-11 13:21 | XMS_ITS | Encounter Summary ---
Author Organization [facility] Address [facility] [place] [address] Care Team Providers Care Off Premise Service Representative Name Role Phone Dulce Hidalgo MD Primary Care Provider [phone] Reason for Visit * Reason Comments Chemotherapy Gemzar/Cisplatin, Cy josé 3, Day 8 * Treatment/Therapy Plan Authorization (Routine) - Closed Specialty Diagnoses / Procedures Referred By Christal lainez Referred To Contact Diagnoses Metastatic urothelial carcinoma Danny Gordon MD [facility] DR HEMATOLOGY [place] [address] St Hem Onc Office [address] [place] [phone] Referral ID Status Reason Start Date Expiration Date Visits Re quested Visits Authorized [id number] Closed 12/06/2016 12/06/2017 1 1 Encounter Details Date Type Department Care Team (Late st Contact Info) Description 02/28/2017 12:30 PM EDT Infusion Hematology Oncology at [address] [phone] Dehydration; Neutropenia, drug-induced; Metastatic urothelial [...] Progress Notes * Kadi Menezes RN - 02/28/2017 12:30 PM EDT INFUSION THERAPY ADMINISTRATION NOTES DIAGNOSIS: Urothelial Cancer CYCLE #:3, Day 8 REASON FOR VISIT: Gemzar/Cisplatin SUBJECTIVE Isaura offers no complaints. OBJECTIVE LAB DATA: Labs WNL for today's infusion. IV ACCESS: mediport accessed at [facility], blood return present and flushes easily. Pre administration: Chemotherapy orders independently verified for drug name, route, and dosage per patient's height, weight and BSA by Kadi Menezes RN & On-site pharmacist.. REACTIONS (DESCRIPTION, TIME, INTERVENTION AND EFFECTIVENESS) none [...] (PLATINOL) 84 mg in sodium chloride 0.9% 584 mL chemo infusion 84 mg (35 mg/m2/dose ? 2.4 m2 Treatment Plan BSA from Recorded weight), Intravenous, ONCE, 1 dose, On Mon02/28/17 at 1400, Administer over 120 Minutes New Bag 02/28/2017 2:38 PM EDT 84 mg 292 mL/hr dexamethasone (DECADRON) tablet 10 mg 10 mg, Oral, ONCE, 1 dose, On Mon02/28/17 at 1300, Administer prior to chemotherapy, Routine Given 02/28/2017 12:56 PM EDT 10 mg famotidine (PEPCID) injection 20 mg 20 mg, Intravenous, ONCE, 1 dose, On Mon02/28/17 at 1300 Given 02/28/2017 12:58 PM EDT 20 mg fosaprepitant (EMEND) 150 mg in sodium chloride 0.9% 155 mL infusion 150 mg, Intravenous, ONCE, 1 dose, On Mon02/28/17 at 1300, Administer over 30 Minutes, Administer prior to chemotherapy. New Bag 02/28/2017 1:20 PM EDT 150 mg 310 mL/hr GEMcitabine 2,400 mg in sodium chloride 0.9% 313.1579 mL chemo infusion 2,400 mg (1,000 mg/m2/dose ? 2.4 m2 Treatment Plan BSA from Recorded weight), Intravenous, ONCE, 1 dose, On Mon02/28/17 at 1400, Administer over 30 Minutes New Bag 02/28/2017 2:02 PM EDT 2,400 mg 626 mL/hr heparin, porcine 100 unit/mL flush 500 Units 500 Units, Intravenous, ONCE PRN, Starting on Mon02/28/17 at 1237, Until Mon02/28/17 at 1855, Line Care, Refer to Intravenous (IV) Procedure: Accessing Implanted Vascular Access Devices (518) procedure and/or Intravenous (IV) Job Aid: Adult Flushing & Catheter Care (9364) job aid for additional information regarding guidelines and administration., Routine Given 02/28/2017 4:54 PM EDT 500 Units magnesium sulfate 1g in dextrose 5% 100mL 1 g, Intravenous, EVERY HOUR, 2 doses, First dose (after last reorder) on Mon02/28/17 at 1430, Last dose on Mon02/28/17 at 1500, Administer over 60 Minutes, Total dose is 2 grams. Post - CISplatin New Bag 02/28/2017 3:37 PM EDT 1 g 100 mL/hr New Bag 02/28/2017 2:40 PM EDT 1 g 100 mL/hr palonosetron (ALOXI) injection 0.25 mg 0.25 mg, Intravenous, ONCE, 1 dose, On Mon02/28/17 at 1300, Administer over 30 seconds. Administer prior to chemotherapy, Routine Given 02/28/2017 12:57 PM EDT 0.25 mg pegfilgrastim (NEULASTA ONPRO) injection kit 6 mg, Subcutaneous, ONCE, 1 dose, On Mon02/28/17 at 1300, Allow the prefilled syringe co-packaged with the on-body injector to reach room temperature at least 30 minutes prior to administration., Routine Given 02/28/2017 4:01 PM EDT 6 mg Right Arm sodium chloride 0.9 % flush 5-20 mL 5-20 mL, Intravenous, EVERY 1 MIN PRN, Starting on Mon02/28/17 at 1237, Until Mon02/28/17 at 1855, Line Care, Flush pertains to all indwelling lines. Flush per protocol found in the job aid using the link provided on this medication record. Refer to Intravenous (IV) Job Aid: Adult Flushing & Catheter Care (1789) job aid for additional information regarding guidelines and administration., Routine Given 02/28/2017 4:54 PM EDT 20 mLs sodium chloride 0.9% infusion 1,000 mL, at 500 mL/hr, Intravenous, CONTINUOUS, Starting on Mon02/28/17 at 1300, Until Mon02/28/17 at 1459, Pre CISplatin New Bag 02/28/2017 12:30 PM EDT 1,000 mLs 500 mL/hr sodium chloride 0.9% with potassium chloride 20 mEq infusion 1,000 mL, at 500 mL/hr, Intravenous, CONTINUOUS, Starting on Mon02/28/17 at 1630, Until Mon02/28/17 at 1855, Post - CISplatin New Bag 02/28/2017 2:40 PM EDT 1,000 mLs 500 mL/hr documented in this encounter Care Teams Off Premise Service Representative Relationship Specialty Start Date End Date Dulce Hidalgo MD [facility] [address] [place] [address] PCP - General Family Medicine 09/30/16 documented as of this encounter
--- OUTSIDE RECORDS SUMMARY | 2024-01-11 13:21 | XMS_ITS | Encounter Summary ---
[place] [address] Care Team Providers Care Radius Grinder Name Role Phone Dulce Hidalgo MD Primary Care Provider [phone] Encounter Details Date Type Department Care Team (Late st Contact Info) Description 01/24/2017 8:45 AM EDT Office Visit Hematology/Oncology at [address] [phone] Nicki Philip, [employer] [address] [facility] [place] [address] Ureteral cancer, right; Metastatic urothelial carcinoma; Breast cancer, stage 1, unspecified laterality; Ovarian cancer, unspecified laterality; Neutropenia, drug-induced Social History Tobacco Use Types [...] Sign Reading Time Taken Comments Blood Pressure 157/54 01/24/2017 8:49 AM EDT Pulse 62 01/24/2017 8:49 AM EDT Temperature 36.6 ??C (97.9 ??F) 01/24/2017 8:49 AM ED T Respiratory Rate 16 01/24/2017 8:49 AM EDT Oxygen Saturation 99% 01/24/2017 8:49 AM EDT Inhaled Oxygen Concentration - - Weight 131.5 kg (290 lb) 01/24/2017 8:49 AM EDT Height 156 cm (5' 1.42) 01/24/2017 8:49 AM EDT Body Mass Index 54.05 01/24/2017 8:49 AM EDT documented in this encounter Progress Notes * Nicki Philip, [employer] - 01/24/2017 8:45 AM EDT Diagnosis: Metastatic urothelial carcinoma Subjective:I [...] is in clinic for follow-up appointment and C2d8 of of her 2nd cycle of chemotherapy. She manages nausea with compazine which controlled her nausea but she doesn't like to take it due to the fact that it makes her drowsy and dizzy. She feels she's been eating quite a bit of spicy food and thinks that if she modifies her diet somewhat she may be able to better control her nausea. Today she notes that her right eye is watering and irritated. She thinks she may have gotten some soap in it while washing. Otherwise she is feeling well and has been eating normally. She had 1 day of mouth sores that resolved with use of baking soda and salt water rinses. She's been getting a considerable amount of fluids at home on a daily basis-at least 100mls a day. PMH: No interval changes since last visit. [...] drink alcohol, she used to work in [employer], retired 2002, she has 3 children. Family [...] Medications These changes are accurate as of: 01/19/17 6:10 PM. If you have any questions, ask [...] Negative. Neurological: Negative. Hematological: Negative for adenopathy. BP 157/54 (Patient Position: Sitting) Pulse 62 Temp 36.6 ??C (97.9 ??F) (Oral) Resp 16 Ht 156 cm (5' 1.42) Wt (!) 131.5 kg (290 lb) SpO2 99% BMI 54.05 kg/m2 Wt Readings from Last 3 Encounters: 01/24/17 (!) 131.5 kg (290 lb) 01/17/17 (!) 129.3 kg (285 lb) 01/03/17 (!) 130.5 kg (287 lb 12.8 oz) Physical Exam Constitutional: She is oriented to person, place, and time. She appears well- developed and well-nourished. HENT: Head: Normocephalic. Mouth/Throat: No oropharyngeal exudate. Eyes: Pupils are equal, round, and reactive to light. Right conjunctiva is injected. Neck: Normal range of motion. Cardiovascular: Normal rate and regular rhythm. Pulmonary/Chest: Effort normal and breath sounds normal. Musculoskeletal: Normal range of motion. Neurological: She is alert and oriented to person, place, and time. Skin: Skin is warm and dry. Psychiatric: She has a normal mood and affect. Her behavior is normal. Labs: 01/24/17 CBC: WBC 3.61 hemoglobin 10.4 platelets 189 ANC 1.79 CMP: Sodium 139 potassium 4.1 BUN 25 creatinine 1.49 glucose 111 calcium 9.3 total bili 0.22 AST 15ALT 29 alkaline phosphatase 103 total protein 7.0 albumin 3.2 Imagin12/21/16 PET scan: IMPRESSION No evidence of local tumor recurrence, regional armen or metastatic disease. ?? 09/22/16 CT AP: Left kidney is normal. Right kidney hydronephrotic to level of the bladder, with thickened enhancing distal ureteral mass extending into the bladder. Minimal residual parenchyma on the right. ??[facility] 12/27[facility]2016 Day, Cycle Day 1, Cycle 1 CISplatin (PLATINOL) IV 35 mg/m2/dose = 84 mg GEMcitabine IV 1,000 mg/m2/dose = 2,400 mg pegfilgrastim (NEULASTA) SubQ [facility] 01/03/2017 Day, Cycle Day 8, Cycle 1 CISplatin (PLATINOL) IV 35 mg/m2/dose = 84 mg GEMcitabine IV 1,000 mg/m2/dose = 2,400 mg pegfilgrastim (NEULASTA) SubQ 6 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 Based on the data from phase II clinical trial we will use split dose of cisplatin 35 mg/m2 gemcitabine 1000 mg per Sherborn squared days 1 and 8. Plan: 1. d8 C2 of Cisplatin/gemcitabine today + neulasta Onpro: I am holding cisplatin today from the regimen due to slowly rising creatinine as she only has one kidney. Antiemetics and hydration changed to reflect the hold. She got the d1 cisplatin so I think today's hold will minimize the effect on efficacy while being safer for her. She continues to drink 100ml at home daily. Will re- consider for C3if creatinine comes down. This change was discussed with patient and and they are agreeable. We will continue with the on-Pro due to the fact that her ANC is adequate for treatment but low today. 2. Nausea: Discussed use of antibiotics at length. She will try to make better use of her ondansetron towards that is the week due to the fact that the Compazine makes her sleepy. Holding today's dose of cisplatin will definitely make her feel better over the next couple of weeks. 3: Eye: The conjunctivae of her right eye is quite red and irritated both above and below. I suggested she try to go to get some saline ilju-ieg-xivekis to flush her eye with on the way home. This islikely due to some irritation last night. 4. Next visit in [address] Gordon with CBC, CMP and 3rd cycle of cisplatin/gemcitabine Nicki Philip, MSN, DIRECTOR ONCOLOGY, [facility] Hematology/Oncology Nurse Practitioner [place], [place] [phone] documented in this encounter Plan of Treatment Not on file documented as of this encounter Procedures Procedure Name Priority Date/Time Associated Diagnosis Comments LAB SCAN 01/24/2017 12:00 AM EDT documented in this encounter Results * SCAN DOC: LAB (01/24/2017 12:00 AM EDT) Narrative 01/24/2017 12:00 AM EDT Ordered by an unspecified provider. Scanning Provider MEDIA MGR SCAN EXT O RDR/RSLT documented in this encounter Visit Diagnoses Diagnosis Ureteral cancer, right Metastatic urothelial carcinoma Secondary malignant neoplasm of other urinary organs Breast cancer, stage 1, unspecified laterality Ovarian cancer, unspecified laterality Neutropenia, drug-induced Drug induced neutropenia documented in this encounter Care Teams Radius Grinder Relationship Specialty Start Date End Date Dulce Hidalgo MD [address] [place] [address] PCP - General Family Medicine 09/30/16 documented as of this encounter
--- OUTSIDE RECORDS SUMMARY | 2024-01-11 13:21 | XMS_ITS | Encounter Summary ---
[place] [address] Care Team Providers Care Citrus Fruit Packer Name Role Phone Dulce Hidalgo MD Primary Care Provider [phone] Reason for Visit * Reason Comments IV Access port flush only Encounter Details Date Type Department Care Team (Late st Contact Info) Description 03/21/2017 9:30 AM EDT Infusion Hematology Oncology at [address] [phone] Metastatic urothelial carcinoma (Primary Dx) Social History Tobacco Use [...] Progress Notes * Carol Florian RN - 03/21/2017 9:30 AM EDT INFUSION THERAPY ADMINISTRATION NOTES DIAGNOSIS: urothelial cancer REASON FOR VISIT: MEDIPORT FLUSH ONLY IV [...] organs documented in this encounter Care Teams Citrus Fruit Packer Relationship Specialty Start Date End Date Dulce Hidalgo MD [facility] [address] [place] [address] PCP - General Family Medicine 09/30/16 documented as of this encounter
--- OUTSIDE RECORDS SUMMARY | 2024-01-11 13:21 | XMS_ITS | Encounter Summary ---
Author Organization [facility] [place] [address] Care Team Providers Care Car Salesman Name Role Phone Dulce Hiadlgo MD Primary Care Provider [phone] Encounter Details Date Type Department Care Team (Late st Contact Info) Description 04/11/2017 8:30 AM EDT Office Visit Hematology/Oncology at [address] [phone] Danny Gordon MD [facility] [address] HEMATOLOGY [place] [address] Metastatic urothelial carcinoma Social History Tobacco Use [...] Sign Reading Time Taken Comments Blood Pressure 157/74 04/11/2017 8:21 AM EDT Pulse - - Temperature 36.9 ??C (98.4 ??F) 04/11/2017 8:21 AM ED T Respiratory Rate 16 04/11/2017 8:21 AM EDT Oxygen Saturation 100% 04/11/2017 8:21 AM EDT Inhaled Oxygen Concentration - - Weight 134.3 kg (296 lb) 04/11/2017 8:21 AM EDT Height 156 cm (5' 1.42) 04/11/2017 8:21 AM EDT Body Mass Index 55.17 04/11/2017 8:21 AM EDT documented in this encounter Progress Notes * Danny Gordon MD - 04/11/2017 8:30 AM EDT Diagnosis: Metastatic urothelial carcinoma Subjective:I am gaining strength every day HPI:Isaura Aguiar is 76 y.o.F referred to [...] shortness of breath, bleeding, fever or chills. PMH: No interval changes since last visit [...] drink alcohol, she used to work in [employer], retired 2002, she has 3 children. Family [...] Medications These changes are accurate as of: 04/11/17 8:45 AM. If you have any questions, ask [...] mg tablet - ACETAMINOPHEN (TYLENOL ORAL) Continued medications with new dosing Dose Details rivaroxaban 15 mg Tab Commonly known as: XARELTO Take 1 tablet by mouth 2 times daily. What changed: when to take this 15 mg Quantity: 42 tablet Refills: 0 Continued medications, unchanged Dose [...] Daily as needed 10 mg Refills: 0 simvastatin 10 mg Tab Commonly known as: [...] axillary nodes normal Neurologic: Normal Vitals BP 157/74 (Patient Position: Sitting) Temp 36.9 ??C (98.4 ??F) (Oral) Resp 16 Ht 156 cm (5' 1.42) Wt (!) 134.3 kg (296 lb) SpO2 100% BMI 55.17 kg/m2 Pathology: 11/02/16 SYNOPTIC REPORT Specimen ?Procedure: [...] cisplatin 35 mg/m2 gemcitabine 1000 mg per [place] squared days 1 and 8. Mrs. Aguiar completed 3 cycles of cisplatin and gemcitabine. Futher chemotherapy was discontinued due to kidney toxicity. PET scan is negative for metastatic disease. She was seen by our radiation oncologist Dr. Greene was planned for adjuvant radiation. We cannot units cisplatin as he was not to size her due to her deteriorating kidney function. We discussed concurrent chemoradiation particularly mitomycin-C and 5-FU versus capecitabine. My concern that mitomycin-C and 5-FU may have significant toxicity in part ofmyelosuppression and GI. We have clinical phase 2 data in the elderly for radiation concurrently with capecitabine. We discussed benefits and the risks of capecitabine as a chemo sentisizer. Risks include but not limited to mouth sores, diarrhea, low blood counts, nausea and vomiting, fatigue, infection including life-threatening infection and . Information on mitomycin, 5-FU and capecitabine was provided to the patient. She wants to think about her options. # Creatinine: 1.72 today # anemia: secondary to chemotherapy. Hg 9.0 Will monitor. # Rectal bleeding: follows with Dr. Hidalgo #Swelling and redness of right lower leg: right calf DVT, on Xarelto. Will follow with Dr. Hidalgo. Plan: 1.Next visit in 2 weeks with CBC, CMP The plan was discussed with the patient in details. All questions were answered to patient's satisfaction. Mrs. Aguiar is accomponied by her today. The plan was discussed with the patient in details. All questions were answered to patient's satisfaction. I would like to thank Dr. Hidalgo and Dr. Do for allowing me to participate in the care of this wonderful lady. This encounter was primarily counseling-based (>50 % of total time) with total time of 45 minutes, of which 35 minutes was spent with the patient/family discussing: * Diagnostic/test results and/or recommendations for additional diagnostic or confirmatory studies; * Prognosis - related of the diagnosis/stage of the disease and course of treatment; * Risks and benefits of pertinent management and treatment options; * Instructions for disease management and the importance of compliance with recommended treatment; * Risk factor reduction, including additional screening and/or surveillance studies, as well as recommended lifestyle modifications; * Patient and family education, answering questions/concerns. documented in this encounter Plan of Treatment Not on file documented as of this encounter Visit Diagnoses Diagnosis Metastatic urothelial carcinoma Secondary malignant neoplasm of other urinary organs documented in this encounter Care Teams Car Salesman Relationship Specialty Start Date End Date Dulce Hidalgo MD [address] [place] [address] [facility] [address] [place] [address] PCP - General Family Medicine 09/30/16 documented as of this encounter
--- OUTSIDE RECORDS SUMMARY | 2024-01-11 13:21 | XMS_ITS | Encounter Summary ---
[place] [address] Care Team Providers Care Crystal Growing Technician Name Role Phone Dulce Hidalgo MD Primary Care Provider [phone] Reason for Referral * Diagnostic Test (Routine) - Closed Specialty Diagnoses / Procedures Referred By Contac t Referred To Contact Radiology Diagnoses Metastatic urothelial carcinoma Procedures PET CT Standard Skull Base to Mid-Thigh Danny Gordon MD [facility] [address] HEMATOLOGY [place] [address] [place] [address] Referral ID Status Reason Start Date Expiration Date V isits Requested Visits Authorized [id number] Closed Specialty Service Requested 03/21/2017 03/21/2018 1 1 Reason for Visit * Diagnostic Test (Routine) - Closed Specialty Diagnoses / Procedures Referred By Contac t Referred To Contact Radiology Diagnoses Metastatic urothelial carcinoma Procedures PET CT Standard Skull Base to Mid-Thigh Danny Gordon MD [facility] HEMATOLOGY [place] [address] [place] [address] Referral ID Status Reason Start Date Expiration Date V isits Requested Visits Authorized [id number] Closed Specialty Service Requested 03/21/2017 03/21/2018 1 1 Encounter Details Date Type Department Care Team (Latest Contact Info) Description 04/07/2017 9:58 AM EDT Hospital Encounter [place] [address] Danny Gordon MD [facility] DR HEMATOLOGY [place] [address] Metastatic urothelial carcinoma Discharge Disposition: [...] 04/07/2017 11:58 AM EDT Metastatic urothelial carcinoma documented in this encounter Results * PET CT Standard Skull Base to Mid-Thigh (04/07/2017 11:58 AM EDT) Anatomical Region Laterality Modality Nuclear Medicine Impressions 04/07/2017 4:41 PM EDT No evidence of recurrent or metastatic disease. Thank you for referring this patient to [facility]. I have personally reviewed the image(s) and the residents interpretation and agree with the findings, Elmo Abel at 04/07/2017 4:41 PM Narrative 04/07/2017 4:41 PM EDT EXAMINATION: PET CT STANDARD SKULL BASE TO MID-THIGH CLINICAL HISTORY: Restaging of metastatic urothelial carcinoma TECHNIQUE: Following IV injection of 02-prshkq-7-deoxyglucose (FDG) a standard uptake of approximately 60 minutes, a noncontrast CT scan followed by a PET scan were acquired from the base of the skull to mid thighs. The noncontrast CT was used for anatomic localization and photon attenuation correction of the PET scan. Blood glucose level: 124 (mg/dL) FDG dose: 12 mCi COMPARISON: PET CT 12/21/2016, CT abdomen and pelvis 09/22/2016 FINDINGS: HEAD/NECK: Normal activity in all soft tissue regions of the neck and visualized lower head. ? CHEST: Normal activity in all soft tissue regions. Mediport terminates at the level of the cavoatrial junction. Status post bilateral mastectomies. Bilateral dependent atelectasis. ABDOMEN/PELVIS: Mildly increased FDG avid soft tissue thickening in the anterior abdominal wall surgical site, likely due to evolving scar tissue. Normal activity in all other soft tissue regions. Status post right nephrectomy, total abdominal hysterectomy and bilateral salpingo-oophorectomy, appendectomy and partial bowel resection. SKELETON/EXTREMITIES: Normal activity in all regions of the axial and ??visualized appendicular skeleton. ? Procedure Note Elmo Abel MD - 04/07/2017 EXAMINATION: PET CT STANDARD SKULL BASE TO MID-THIGH CLINICAL HISTORY: Restaging of metastatic urothelial carcinoma TECHNIQUE: Following IV injection of 24-vfbyuy-5-deoxyglucose (FDG) astandard uptake of approximately 60 minutes, a noncontrast CT scan followed by aPET scan were acquired from the base of the skull to mid thighs. The noncontrast CTwas used for anatomic localization and photon attenuation correction of thePET scan. Blood glucose level: 124 (mg/dL) FDG dose: 12 mCi COMPARISON: PET CT 12/21/2016, CT abdomen and pelvis 09/22/2016 FINDINGS: HEAD/NECK: Normal activity in all soft tissue regions of the neck and visualizedlower head. CHEST: Normal activity in all soft tissue regions. Mediport terminates at thelevel of the cavoatrial junction. Status post bilateral mastectomies. Bilateraldependent atelectasis. ABDOMEN/PELVIS: Mildly increased FDG avid soft tissue thickening in the anterior abdominalwall surgical site, likely due to evolving scar tissue. Normal activity in allother soft tissue regions. Status post right nephrectomy, total abdominalhysterectomy and bilateral salpingo-oophorectomy, appendectomy and partial bowelresection. SKELETON/EXTREMITIES: Normal activity in all regions of the axial and visualized appendicular skeleton. IMPRESSION No evidence of recurrent or metastatic disease. Thank you for referring this patient to [facility]. I have personally reviewed the image(s) and the residents interpretationand agree with the findings, Elmo Abel at 04/07/2017 4:41 PM Danny Gordon MD IMG PET ORDERABLES documented in this encounter Visit Diagnoses Diagnosis Metastatic urothelial carcinoma Secondary malignant neoplasm of other urinary organs documented in this encounter Administered Medications Inactive Administered Medications - up to 3 most recent administrations Medication Order MAR Action Action Date Dose Rate Site fludeoxyglucose (F-18) FDG injection 12 mCi 12 mCi, Intravenous, ONCE PRN, 1 dose, Starting on Mon04/07/17 at 1041, Until Mon04/07/17 at 1038, Per Protocol, Routine Given 04/07/2017 10:38 AM EDT 12 mCi documented in this encounter Care Teams Crystal Growing Technician Relationship Specialty Start Date End Date Dulce Hidalgo MD [facility] [address] [place] [address] PCP - General Family Medicine 09/30/16 documented as of this encounter
--- OUTSIDE RECORDS SUMMARY | 2024-01-11 13:21 | XMS_ITS | Encounter Summary ---
[place] [address] Care Team Providers Care Grated Cheese Maker Name Role Phone Dulce Hidalgo MD Primary Care Provider [phone] Encounter Details Date Type Department Care Team (Late st Contact Info) Description 02/28/2017 Telephone Hematology/Oncology at [address] [phone] Zachary Garcia Social History Tobacco [...] * Telephone Encounter - Zachary Garcia - 02/28/2017 2:06 PM EDT Left a msg for the pt letting her know her hydration is 03/02 at 9. Asked her to call with any questions or concerns documented in this encounter Plan of Treatment Not on file documented as of this encounter Visit Diagnoses Not on filedocumented in this encounter Care Teams Grated Cheese Maker Relationship Specialty Start Date End Date Dulce Hidalgo MD [address] [place] [address] PCP - General Family Medicine 09/30/16 documented as of this encounter
--- OUTSIDE RECORDS SUMMARY | 2024-01-11 13:21 | XMS_ITS | Encounter Summary ---
Author Organization [facility] Address [facility] [place] [address] Care Team Providers Care Medical Librarian Name Role Phone Dulce Hidalgo MD Primary Care Provider [phone] Reason for Visit * Reason Comments Chemotherapy Gemzar/Cisplatin, Cy josé 2, Day 1 Injections Neulasta On-Pro * Treatment/Therapy Plan Authorization (Routine) - Closed Specialty Diagnoses / Procedures Referred By Christal lainez Referred To Contact Diagnoses Metastatic urothelial carcinoma Danny Gordon MD [facility] DR [place] [address] St Hem Onc Office [address] [place] [phone] Referral ID Status Reason Start Date Expiration Date Visits Re quested Visits Authorized [id number] Closed 12/06/2016 12/06/2017 1 1 Encounter Details Date Type Department Care Team (Late st Contact Info) Description 01/03/2017 9:00 AM EDT Infusion Hematology Oncology at [address] [phone] Neutropenia, drug-induced; Metastatic urothelial carcinoma [...] Progress Notes * Kadi Menezes RN - 01/03/2017 9:00 AM EDT INFUSION THERAPY ADMINISTRATION NOTES DIAGNOSIS: Ovarian cancer CYCLE # 2, Day 1 REASON FOR VISIT: Gemzar/Cisplatin infusion SUBJECTIVE Isaura offers no complaints. OBJECTIVE LAB DATA: WBC 2.62, HGB 12.6, PLTS 172, ANC 1.16, Creat 1.42, Mg 1.7 IV ACCESS: Mediport Pre administration: Chemotherapy orders independently verified for drug name, route, and dosage per patient's height, weight and BSA by Kadi Menezes RN & Vasquez Johnson [facility]. REACTIONS (DESCRIPTION, TIME, INTERVENTION AND EFFECTIVENESS) none ASSESSMENT Isaura was awake, alert and tolerated treatment well. PLAN Return to clinic per routine. documented in this encounter Plan of Treatment Not on file documented as of this encounter Procedures Procedure Name Priority Date/Time Associated Diagnosis Comments LAB SCAN 01/10/2017 12:00 AM EDT documented in this encounter Results * SCAN DOC: LAB (01/10/2017 12:00 AM EDT) Narrative 01/10/2017 12:00 AM EDT Ordered by an unspecified [...] Recorded weight), Intravenous, ONCE, 1 dose, On Mon01/03/17 at 1030, Administer over 120 Minutes New Bag 01/03/2017 11:05 AM EDT 84 mg 167 mL/hr dexamethasone (DECADRON) tablet 10 mg 10 mg, Oral, ONCE, 1 dose, On Mon01/03/17 at 0930, Administer prior to chemotherapy, Routine Given 01/03/2017 9:19 AM EDT 10 mg fosaprepitant (EMEND) 150 mg in sodium chloride 0.9% 155 mL infusion 150 mg, Intravenous, ONCE, 1 dose, On Mon01/03/17 at 0930, Administer over 30 Minutes, Administer prior to chemotherapy. New Bag 01/03/2017 9:44 AM EDT 150 mg 310 mL/hr GEMcitabine 2,400 mg in sodium chloride 0.9% 313.1579 mL chemo infusion 2,400 mg (1,000 mg/m2/dose ? 2.4 m2 Treatment Plan BSA from Recorded weight), Intravenous, ONCE, 1 dose, On Mon01/03/17 at 1030, Administer over 30 Minutes New 01/03/2017 10:23 AM EDT 2,400 mg 626 mL/hr heparin, porcine 100 unit/mL flush 500 Units 500 Units, Intravenous, ONCE PRN, Starting on Mon01/03/17 at 0909, Until Mon01/03/17 at 1651, Line Care, Refer to Intravenous (IV) Procedure: Accessing Implanted Vascular Access Devices (782) procedure and/or Intravenous (IV) Job Aid: Adult Flushing & Catheter Care (6487) job aid for additional information regarding guidelines and administration., Routine Given 01/03/2017 2:50 PM EDT 500 Units magnesium sulfate 1g in dextrose 5% 100mL 1 g, Intravenous, EVERY HOUR, 2 doses, First dose on Mon01/03/17 at 1300, Last dose on Mon01/03/17 at 1400, Administer over 60 Minutes, Total dose is 2 grams. Post - CISplatin New Bag 01/03/2017 1:37 PM EDT 1 g 100 mL/ hr New 01/03/2017 12:40 PM EDT 1 g 100 mL/hr palonosetron (ALOXI) injection 0.25 mg 0.25 mg, Intravenous, ONCE, 1 dose, On Mon01/03/17 at 0930, Administer over 30 seconds. Administer prior to chemotherapy, Routine Given 01/03/2017 9:20 AM EDT 0.25 mg pegfilgrastim (NEULASTA ONPRO) injection kit 6 mg, Subcutaneous, ONCE, 1 dose, On Mon01/03/17 at 0930, Allow the prefilled syringe co-packaged with the on-body injector to reach room temperature at least 30 minutes prior to administration., Routine Given 01/03/2017 2:45 PM EDT 6 mg Right Arm sodium chloride 0.9 % flush 5-20 mL 5-20 mL, Intravenous, EVERY 1 MIN PRN, Starting on Mon01/03/17 at 0909, Until Mon01/03/17 at 1651, Line Care, Flush pertains to all indwelling lines. Flush per protocol found in the job aid using the link provided on this medication record. Refer to Intravenous (IV) Job Aid: Adult Flushing & Catheter Care (1819) job aid for additional information regarding guidelines and administration., Routine Given 01/03/2017 2:50 PM EDT 20 mLs sodium chloride 0.9% infusion 1,000 mL, at 500 mL/hr, Intravenous, CONTINUOUS, Starting on Mon01/03/17 at 0930, Until Mon01/03/17 at 1129, Pre CISplatin New Bag 01/03/2017 9:10 AM EDT 1,000 mLs 500 mL/hr sodium chloride 0.9% with potassium chloride 20 mEq infusion 1,000 mL, at 500 mL/hr, Intravenous, CONTINUOUS, Starting on Mon01/03/17 at 1300, Until Mon01/03/17 at 1651, Post - CISplatin New Bag 01/03/2017 11:30 AM EDT 1,000 mLs 500 mL/hr documented in this encounter Care Teams Medical Librarian Relationship Specialty Start Date End Date Dulce Hidalgo MD [facility] [address] [place] [address] PCP - General Family Medicine 09/30/16 documented as of this encounter
--- OUTSIDE RECORDS SUMMARY | 2024-01-11 13:21 | XMS_ITS | Encounter Summary ---
[place] [address] Care Team Providers Care Director Retirement Name Role Phone Dulce Hidalgo MD Primary Care Provider Reason for Referral * Diagnostic Test (Routine) - Closed Specialty Diagnoses / Procedures Referred By Contac t Referred To Contact Radiology Diagnoses Metastatic urothelial carcinoma Procedures PET CT Standard Skull Base to Mid-Thigh Danny Gordon MD [facility] [address] [place] [address] [place] [address] Referral ID Status Reason Start Date Expiration Date V isits Requested Visits Authorized [id number] Closed Specialty Service Requested 03/21/2017 03/21/2018 1 1 * Consultation (Routine) - Closed Specialty Diagnoses / Procedures Referred By Contac t Referred To Contact Radiation Oncology Diagnoses Metastatic urothelial carcinoma Danny Gordon MD [facility] [place] [address] [facility] [address] [address] Referral ID Status Reason Start Date Expiration Date V isits Requested Visits Authorized [id number] Closed Consult, Test & Treat 03/21/2017 03/21/2018 1 1 Reason for Visit * Reason Comments Follow-up Encounter Details Date Type Department Care Team (Late st Contact Info) Description 03/21/2017 9:00 AM EDT Office Visit Hematology/Oncology at [address] [phone] Danny Gordon MD [facility] DR HEMATOLOGY [place] [address] Metastatic urothelial carcinoma Social History Tobacco Use [...] Sign Reading Time Taken Comments Blood Pressure 148/56 03/21/2017 8:45 AM EDT Pulse 68 03/21/2017 8:45 AM EDT Temperature 37 ??C (98.6 ??F) 03/21/2017 8:45 AM EDT Respiratory Rate 16 03/21/2017 8:45 AM EDT Oxygen Saturation 100% 03/21/2017 8:45 AM EDT Inhaled Oxygen Concentration - - Weight 132 kg (291 lb) 03/21/2017 8:45 AM EDT Height 156 cm (5' 1.42) 03/21/2017 8:45 AM EDT Body Mass Index 54.24 03/21/2017 8:45 AM EDT documented in this encounter Progress Notes * Danny Gordon MD - 03/21/2017 9:00 AM EDT Diagnosis: Metastatic urothelial carcinoma [...] Aguiar is in clinic for follow-up appointment . She feels much better off chemotherapy. She is significantly less tired and gaining her energy back..Ultrasound revealed left leg thrombosis. She is currently on Xarelto. Redness and swelling are gone. Denies any bleeding or easy bruising PMH: Left leg DVT on Xarelto Rectal bleeding [...] drink alcohol, she used to work in [employer], retired 2002, she has 3 children. Family [...] Medications These changes are accurate as of: 03/21/17 8:52 AM. If you have any questions, ask [...] 10 mg Quantity: 30 tablet Refills: 3 rivaroxaban 15 mg Tab Commonly known as: XARELTO Take 1 tablet by mouth 2 times daily. 15 mg Quantity: 42 tablet Refills: 0 simvastatin 10 mg Tab Commonly [...] axillary nodes normal Neurologic: Normal Vitals BP 148/56 (Patient Position: Sitting) Pulse 68 Temp 37 ??C (98.6 ??F) (Oral) Resp 16 Ht 156 cm [...] B14 Normal Block(s): ?? B23 Labs: WBC 6.56, hemoglobin 9.0, platelet count 324, 0.13, sodium 137, potassium 4.2, BUN 26, creatinine 1.62, AST 12, ALT 15, alkaline phosphatase 105, TB 7.0, albumin 3.3. Imagin03/14/17 right lower extremity ultrasound: Impression: Calf vein [...] cisplatin 35 mg/m2 gemcitabine 1000 mg per [place] squared days 1 and 8. Mrs. Aguiar completed 3 cycles of cisplatin and gemcitabine. She is not interested in further chemotherapy. I will refer her to radiation oncology for consideration of adjuvant radiation. I plan to restage her with PET scan as an next 2 weeks. . # Creatinine: 1.62 today # anemia: secondary to chemotherapy. Hg 9.0 Will monitor. # Rectal bleeding: follows with Dr. Hidalgo #Swelling and redness of right lower leg: right calf DVT, on Xarelto. Will follow with Dr. Hidalgo. Plan: 1.D/c Cisplatin/gemcitabine 2. Radiation oncology consult 3. PET scan within 2 weeks 4. Next visit in 3 weeks with CBC, CMP The plan was [...] Associated Diagnoses Orde r Schedule Referral to Radiation Oncology Outpatient Referral Routine Metastatic urothelial carcinoma Ordered: 03/21/2017 documented as of this encounter Results * PET CT Standard Skull Base to Mid-Thigh (04/07/2017 11:58 AM EDT) Anatomical Region Laterality Modality Nuclear Medicine Impressions 04/07/2017 4:41 PM EDT No evidence of recurrent or metastatic disease. Thank you for referring this patient to [facility]. I have personally reviewed the image(s) and the residents interpretation and agree with the findings, Elmo Abel at 04/07/2017 4:41 PM Narrative 04/07/2017 4:41 PM EDT EXAMINATION: PET CT STANDARD SKULL BASE TO MID-THIGH CLINICAL HISTORY: Restaging of metastatic urothelial carcinoma TECHNIQUE: Following IV injection of 72-fqzzbi-0-deoxyglucose (FDG) a standard uptake of approximately 60 [...] urothelial carcinoma TECHNIQUE: Following IV injection of 00-gpkeml-5-deoxyglucose (FDG) astandard uptake of approximately 60 minutes, [...] Thank you for referring this patient to [facility]. I have personally reviewed the image(s) and the residents interpretationand agree with the findings, Elmo Abel at 04/07/2017 4:41 PM Danny Gordon MD IMG PET ORDERABLES documented in this encounter Visit Diagnoses Diagnosis Metastatic urothelial carcinoma Secondary malignant neoplasm of other urinary organs Metastatic urothelial carcinoma Secondary malignant neoplasm of other urinary organs documented in this encounter Care Teams Director Retirement Relationship Specialty Start Date End Date Dulce Hidalgo MD [address] [place] [address] PCP - General Family Medicine 09/30/16 documented as of this encounter
--- OUTSIDE RECORDS SUMMARY | 2024-01-11 13:21 | XMS_ITS | Encounter Summary ---
[place] [address] Care Team Providers Care Medart Operator Name Role Phone Dulce Hidalgo MD Primary Care Provider [phone] Reason for Visit * Diagnostic Test (Routine) - Closed Specialty Diagnoses / Procedures Referred By Christal lainez Referred To Contact Radiology Diagnoses Metastatic urothelial carcinoma Procedures PET CT Standard Skull Base to Mid-Thigh Danny Gordon MD [facility] HEMATOLOGY [place] [address] [place] [address] Referral ID Status Reason Start Date Expiration Date V isits Requested Visits Authorized [id number] Closed Specialty Service Requested 12/06/2016 12/06/2017 1 1 Encounter Details Date Type Department Care Team (Latest Contact Info) Description 12/21/2016 10:33 AM EDT - 12/21/2016 11:59 PM EDT Hospital En[place] [address] Danny Gordon MD [facility] HEMATOLOGY [place] [address] Discharge Disposition: Home Social History [...] CT SKULL BASE TO MID-THIGH ([facility]) Routine 12/21/2016 12:45 PM EDT Metastatic urothelial carcinoma documented in this encounter Results * PET CT Standard Skull Base to Mid-Thigh (12/21/2016 12:45 PM EDT) Anatomical Region Laterality Modality Nuclear Medicine Impressions 12/21/2016 5:18 PM EDT No evidence of local tumor recurrence, regional armen or metastatic disease. Thank you for referring this patient to [facility]. I have personally reviewed the image(s) and the residents interpretation and agree with the findings, Elmo Abel at 12/21/2016 5:18 PM Narrative 12/21/2016 5:18 PM EDT EXAMINATION: PET CT STANDARD SKULL BASE TO MID-THIGH CLINICAL HISTORY: Staging of metastatic urothelial carcinoma TECHNIQUE: Following IV injection of 19-oxntea-9-deoxyglucose (FDG) a standard uptake of approximately 60 minutes, a noncontrast CT scan followed by a PET scan were acquired from the base of the skull to mid thighs. The noncontrast CT was used for anatomic localization and photon attenuation correction of the PET scan. Blood glucose level: 95 (mg/dL) FDG dose: 17.8 mCi COMPARISON: CT abdomen pelvis 09/22/2016 FINDINGS: HEAD/NECK: Normal activity in all soft tissue regions of the neck and visualized lower head. ? CHEST: Normal activity in all soft tissue regions. Patient is status post bilateral mastectomy. Right-sided Mediport tip projects in the distal SVC. Mild atherosclerotic plaque is noted in the thoracic aorta. Mild centrilobular emphysema is noted. ABDOMEN/PELVIS: Normal activity in all soft tissue regions. Patient is status post right nephrectomy, total abdominal hysterectomy and BSO, appendectomy and partial bowel resection. There are multiple surgical clips scattered throughout the abdomen. SKELETON/EXTREMITIES: Normal activity in all regions of the axial and ??visualized appendicular skeleton. ? Procedure Note Elmo Abel MD - 12/21/2016 EXAMINATION: PET CT STANDARD SKULL BASE TO MID-THIGH CLINICAL HISTORY: Staging of metastatic urothelial carcinoma TECHNIQUE: Following IV injection of 00-anfqoe-2-deoxyglucose (FDG) astandard uptake of approximately 60 minutes, a noncontrast CT scan followed by aPET scan were acquired from the base of the skull to mid thighs. The noncontrast CTwas used for anatomic localization and photon attenuation correction of thePET scan. Blood glucose level: 95 (mg/dL) FDG dose: 17.8 mCi COMPARISON: CT abdomen pelvis 09/22/2016 FINDINGS: HEAD/NECK: Normal activity in all soft tissue regions of the neck and visualizedlower head. CHEST: Normal activity in all soft tissue regions. Patient is status postbilateral mastectomy. Right-sided Mediport tip projects in the distal SVC. Mild atherosclerotic plaque is noted in the thoracic aorta. Mildcentrilobular emphysema is noted. ABDOMEN/PELVIS: Normal activity in all soft tissue regions. Patient is status post right nephrectomy, total abdominal hysterectomy and BSO, appendectomy andpartial bowel resection. There are multiple surgical clips scattered throughoutthe abdomen. SKELETON/EXTREMITIES: Normal activity in all regions of the axial and visualized appendicular skeleton. IMPRESSION No evidence of local tumor recurrence, regional armen or metastaticdisease. Thank you for referring this patient to [facility]. I have personally reviewed the image(s) and the residents interpretationand agree with the findings, Elmo Abel at 12/21/2016 5:18 PM Danny Gordon MD IMG PET ORDERABLES documented in this encounter Visit Diagnoses Not on filedocumented in this encounter Care Teams Medart Operator Relationship Specialty Start Date End Date Dulce Hidalgo MD [address] [place] [address] PCP - General Family Medicine 09/30/16 documented as of this encounter
--- OUTSIDE RECORDS SUMMARY | 2024-01-11 13:21 | XMS_ITS | Encounter Summary ---
[place] [address] Care Team Providers Care Carbon Setter Name Role Phone Dulce Hidalgo MD Primary Care Provider [phone] Encounter Details Date Type Department Care Team (Late st Contact Info) Description 03/21/2017 Telephone Radiation Oncology at [address] [phone] Ángel Guardado Social History Tobacco Use Types Packs/Day Years [...] encounter Miscellaneous Notes * Telephone Encounter - Ángel Guardado - 03/21/2017 10:49 AM EDT Called and left Isaura a message saying that I am working on scheduling her to see Dr. Greene and asked her to give me a call back. documented in this encounter Plan of Treatment Not on file documented as of this encounter Visit Diagnoses Not on filedocumented in this encounter Care Teams Carbon Setter Relationship Specialty Start Date End Date Dulce Hidalgo MD [address] [place] [address] PCP - General Family Medicine 09/30/16 documented as of this encounter
--- OUTSIDE RECORDS SUMMARY | 2024-01-11 13:21 | XMS_ITS | Encounter Summary ---
Author Organization [facility] [place] [address] Care Team Providers Care Physical Aerodynamicist Name Role Phone Dulce Hidalgo MD Primary Care Provider [phone] Encounter Details Date Type Department Care Team (Latest Contact Info) Description 03/14/2017 - 03/14/2017 11:59 PM EDT Hospital Encounter [place] [phone] Danny Gordon MD [facility] [place] [address] Discharge Disposition: Home Social History Tobacco Use [...] TIME OF SCAN if needed 0 12/15/2016 magnesium oxide (MAG-OX) 400 mg TabletIndications:Metast atic [...] as needed* 08/05/2010 rivaroxaban (XARELTO) 15 mg TabletIndications:Metast atic urothelial carcinoma,Ovarian cancer, unspecified laterality,Pain and swelling of lower leg, right Take 1 tablet by mouth 2 times daily. 42 tablet 03/14/2017 05/03/2017 ondansetron (ZOFRAN) 8 mg TabletIndications:Bladde r cancer [...] FILM LIBRARY STORAGE ONLY ULTRASOUND STUDY Routine 03/14/2017 12:00 AM EDT documented in this encounter Results * Film Library- Storage Only Ultrasound Study (03/14/2017 12:00 AM EDT) Narrative NORBERTO - 04/22/2017 2:08 PM EST This exam is for storage only and is auto-finalizing. Danny Gordno MD G FILM LIBRARY ORD ERABLES [place] documented in this encounter Visit Diagnoses Not on filedocumented in this encounter Care Teams Physical Aerodynamicist Relationship Specialty Start Date End Date Dulce Hidalgo MD [facility] [address] [facility] [address] [place] [address] PCP - General Family Medicine 09/30/16 documented as of this encounter
--- OUTSIDE RECORDS SUMMARY | 2024-01-11 13:21 | XMS_ITS | Encounter Summary ---
Author Organization [facility] [place] [address] Care Team Providers Care Field Case Manager Name Role Phone Dulce Hidalgo MD Primary Care Provider [phone] Encounter Details Date Type Department Care Team (Late st Contact Info) Description 01/06/2017 Telephone Hematology Oncology at [address] [phone] Neeru Reynoso RN Social History Tobacco Use Types Packs/Day [...] Telephone Encounter - Neeru Reynoso RN - 01/06/2017 12:50 PM EDT Call rec'd from patient stating that she did well with her neulasta pod. She tolerated it being on her right arm overnight and it functioned properly as she was told it would. Isaura did question some disccomfort she was having in her left shoulder. She wondered if it was related to the neulasta injection? She wondered what spleen pain would feel like, and we went over possible symptoms. Isaura decided that her arm was uncomfortable due to the way she slept while shehad the neulasta pod on. Isaura was instructed to call with any other symptoms or concerns. She was agreeeable to call with any concerns. documented in this encounter Plan of Treatment Not on file documented as of this encounter Visit Diagnoses Not on filedocumented in this encounter Care Teams Field Case Manager Relationship Specialty Start Date End Date Dulce Hidalgo MD [address] [place] [address] PCP - General Family Medicine 09/30/16 documented as of this encounter
--- OUTSIDE RECORDS SUMMARY | 2024-01-11 13:21 | XMS_ITS | Encounter Summary ---
[place] [address] Care Team Providers Care Chairman And Chief Executive Officer Name Role Phone Dulce Hidalgo MD Primary Care Provider [phone] Reason for Visit * Reason Comments IV Medication Encounter Details Date Type Department Care Team (Late st Contact Info) Description 02/07/2017 9:00 AM EDT Infusion Hematology Oncology at [address] [phone] Ovarian cancer, unspecified laterality Social History Tobacco [...] of this encounter Progress Notes * Michaela Hernnadez RN - 02/07/2017 9:00 AM EDT Isaura Aguiar, 76 y.o. female with diagnosis of metastatic urothelial carcinoma is here for Hydration only. Pt was seen by Dr Gordon today prior to infusion. S: Pt. offers no complaints at this time. O: Orders independently verified by Evangelina ABREU and onsite pharmacist REACTIONS (DESCRIPTION, TIME, INTERVENTION AND EFFECTIVENESS) NONE A: Pt. Tolerated treatment well. Isaura Aguiar confirms that all questions and issues have beenaddressed. Port was flushed with 20 ML NS and 500 units heparin per protocol and port de- accessed. Site WNL. Pt discharged in stable condition. P: Return to clinic per schedule documented in this encounter Plan of Treatment Not on file documented as of this encounter Procedures Procedure Name Priority Date/Time Associated Diagnosis Comments LAB SCAN 02/07/2017 12:00 AM EDT documented in this encounter Results * SCAN DOC: LAB (02/07/2017 12:00 AM EDT) Narrative 02/07/2017 12:00 AM EDT Ordered by an unspecified provider. Scanning Provider MEDIA MGR SCAN EXT O RDR/RSLT documented in this encounter Visit Diagnoses Diagnosis Ovarian cancer, unspecified laterality documented in this encounter Administered Medications Inactive Administered Medications - up to 3 most recent administrations Medication Order MAR Action Action Date Dose Rate Site sodium chloride 0.9% infusion 1,000 mL, at 500 mL/hr, Intravenous, ONCE, 1 dose, On 02/07/17 at 0945 New Bag 02/07/2017 9:25 AM EDT 1,000 mLs 500 mL/h r documented in this encounter Care Teams Chairman And Chief Executive Officer Relationship Specialty Start Date End Date Dulce Hidalgo MD [address] [place] [address] PCP - General Family Medicine 09/30/16 documented as of this encounter
--- OUTSIDE RECORDS SUMMARY | 2024-01-11 13:21 | XMS_ITS | Encounter Summary ---
[place] [address] Care Team Providers Care Logistics Officer Name Role Phone Dulce Hidalgo MD Primary Care Provider [phone] Encounter Details Date Type Department Care Team (Late st Contact Info) Description 03/21/2017 Telephone Radiation Oncology at [address] [phone] Ángel Guardado Social History Tobacco [...] Telephone Encounter - Ángel Guardado - 03/21/2017 11:21 AM EDT Isaura called back. She agreed to come in Tuesday 03/27 10:30 with the nurse and [address] Greene for her new patient consultation. All of her questions were answered. documented in this encounter Plan of Treatment Not on file documented as of this encounter Visit Diagnoses Not on filedocumented in this encounter Care Teams Logistics Officer Relationship Specialty Start Date End Date Dulce Hidalgo MD [address] [place] [address] PCP - General Family Medicine 09/30/16 documented as of this encounter
--- OUTSIDE RECORDS SUMMARY | 2024-01-11 13:21 | XMS_ITS | Encounter Summary ---
[place] [address] Care Team Providers Care Ultrasonic Solderer Name Role Phone Dulce Hidalgo MD Primary Care Provider [phone] Encounter Details Date Type Department Care Team (Late st Contact Info) Description 03/17/2017 Telephone Hematology/Oncology at [address] [phone] Zachary Garcia Social History Tobacco [...] * Telephone Encounter - Zachary Garcia - 03/17/2017 12:55 PM EDT Called pt and informed her of her pd @ 8 and her apt at 9 on 03/[address] Gordon. Pt agreed. documented in this encounter Plan of Treatment Not on file documented as of this encounter Visit Diagnoses Not on filedocumented in this encounter Care Teams Ultrasonic Solderer Relationship Specialty Start Date End Date Dulce Hidalgo MD [address] [place] [address] PCP - General Family Medicine 09/30/16 documented as of this encounter
--- OUTSIDE RECORDS SUMMARY | 2024-01-11 13:21 | XMS_ITS | Encounter Summary ---
Author Organization [facility] [place] [address] Care Team Providers Care Salesperson Books Name Role Phone Dulce Hidalgo MD Primary Care Provider [phone] Reason for Visit * Reason Comments Follow-up Encounter Details Date Type Department Care Team (Late st Contact Info) Description 12/27/2016 10:00 AM EDT Office Visit Hematology/Oncology at [address] [phone] Danny Gordon MD [facility] [address] [place] [address] Metastatic urothelial carcinoma; Anemia of chronic renal [...] Reading Time Taken Comments Blood Pressure 146/63 12/27/2016 9:46 AM EDT Pulse 63 12/27/2016 9:46 AM EDT Temperature 36.8 ??C (98.2 ??F) 12/27/2016 9:46 AM ED T Respiratory Rate 16 12/27/2016 9:46 AM EDT Oxygen Saturation 100% 12/27/2016 9:46 AM EDT Inhaled Oxygen Concentration - - Weight 131.5 kg (290 lb) 12/27/2016 9:46 AM EDT Height 156 cm (5' 1.42) 12/27/2016 9:46 AM EDT Body Mass Index 54.05 12/27/2016 9:46 AM EDT documented in this encounter Progress Notes * Danny Gordon MD - 12/27/2016 10:00 AM EDT Diagnosis: Metastatic urothelial carcinoma Subjective:I [...] discussion of adjuvant chemotherapy. Interval history: Mrs. Cardona is in clinic for follow-up appointment and first cycle of chemotherapy. Overall she feels at her baseline. She has mild discomfort and tingling over her left upper leg. He denies any other pain, fever, chills, nausea or vomiting. 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 Metastatic urothelial carcinoma ??? Ureteral cancer [...] drink alcohol, she used to work in [employer], retired 2002, she has 3 children. Family [...] Medications These changes are accurate as of: 12/27/16 10:28 AM. If you have any questions, ask [...] Tab Take 1 tablet by mouth daily. 1 tablet Refills: 0 docusate sodium 100 [...] chest pain, palpitations and leg swelling. Gastrointestinal: Negative for nausea, vomiting, abdominal pain, diarrhea, constipation and abdominal distention. Genitourinary: Gross blood in urine [...] axillary nodes normal Neurologic: Normal Vitals BP 146/63 (Patient Position: Sitting) Pulse 63 Temp 36.8 ??C (98.2 ??F) (Oral) Resp 16 Ht 156 cm (5' 1.42) Wt (!) 131.5 kg (290 lb) SpO2 100% BMI 54.05 kg/m2 Pathology: 11/02/16 SYNOPTIC REPORT [...] B10, B14 Normal Block(s): ?? B23 Labs: measured Creatine clearance 45 ml/min, WBC 6.45, hemoglobin 12.9, platelet count 235, sodium 137, potassium 4.0, BUN 21, creatinine 1.31, [place] 9.5, total bilirubin 0.4, AST 16, ALT 19, alkaline phosphatase 99, total protein 7.5, albumen 3.3 Imagin12/21/16 PET scan: IMPRESSION No evidence of [...] - 11/02/16 right robotic-assisted laparoscopic right nephroureterectomy Mrs. Aguiar has new diagnosis of metastatic urothelial carcinoma of the distal ureter with metastasis to abdominal lymph node. We discussed prognosis of metastatic urothelial carcinoma with 15-20 percent 5 year overall survival. We discussed role of adjuvant chemotherapy with cisplatin either MVAC or cisplatin and gemcitabine. Two meta-analyses on adjuvant chemotherapy for muscle invasive bladder cancer have been reported. The Advanced Bladder Cancer [place]-Analysis Collaboration obtained individual patient data from 491 patients in 6 randomized trials of adjuvant cisplatin-based chemotherapy and found an overall hazard ratio for survival of 0.75 (P = 0.019) favoring adjuvant therapy. This corresponds to an absolute improvement in survival of 9% at 3 years. However, the lack of robustness of the data prevented the authors from making a formal endorsement of adjuvant treatment. Another meta-analysis of 5 trials found a similar improvement in OS with adjuvant chemotherapy with a hazard ratio of 0.74 (P = 0.001). Richelle et al. reported retrospective data from 11 centers with 3947 patients with high-risk UCB treated with cystectomy, of which 23.6% received adjuvant chemotherapy . Adjuvant chemotherapy was associated with improved survival (hazard ratio 0.83, P = 0.017) with increasing benefit seen with higher-risk subgroups. I discussed risks of chemotherapy with cisplatin and gemcitabine which include but not limited to nausea, vomiting, fatigue, hearing loss, kidney failure, low blood counts requiring transfusion, allergic reaction, pain/numbness/tingling in extremities, blood clots, infection including life-threatening infection and . All questions were answered to patient's satisfaction. She is interested toproceed with adjuvant chemotherapy. Informed verbal consent was obtained. The scan is negative for metastatic disease. Her measured creatinine clearance is 45 mL/m. Based on the data from phase II clinical trial we will use split dose of cisplatin 35 mg/m2 gemcitabine 1000 mg per [place] squared days 1 and 8. Plan: 1. Cisplatin/gemcitabine today 2. Next visit in 1 week with CBC, CMP and D8 of ochemotherapy Mrs. Aguiar is accomponied by her today. [...] Priority Date/Time Associated Diagnosis Comments LAB SCAN 12/27/2016 12:00 AM EDT documented in this encounter Results * SCAN DOC: LAB (12/27/2016 12:00 AM EDT) Narrative 12/27/2016 12:00 AM EDT Ordered by an unspecified provider. Scanning Provider MEDIA MGR SCAN EXT O RDR/RSLT documented in this encounter Visit Diagnoses Diagnosis Metastatic urothelial carcinoma Secondary malignant neoplasm of other urinary organs Anemia of chronic renal failure, stage 2 (mild) documented in this encounter Care Teams Salesperson Books Relationship Specialty Start Date End Date Dulce Hidalgo MD [address] [place] [address] PCP - General Family Medicine 09/30/16 documented as of this encounter
--- OUTSIDE RECORDS SUMMARY | 2024-01-11 13:22 | XMS_ITS | Encounter Summary ---
Author Organization [facility] [place] [address] Care Team Providers Care Pipelayer Name Role Phone Marivel Faulkner APRN Primary Care Provider + Encounter Details Date Type Department Care Team (Late st Contact Info) Description 09/29/2016 Tele[place] [phone] Ariel Do MD [facility] [place] [address] [place] [address] Social History Tobacco Use Types Packs/Day Years [...] encounter Miscellaneous Notes * Telephone Encounter - Ariel Do MD - 09/29/2016 9:02 PM EDT Call from PCP 75 year old with Right flank pain and hematuria CT shows right hydronephrosis and suggestion of a bladder mass. I will arrange to see her next week Ariel Do documented in this encounter Plan of Treatment Not on file documented as of this encounter Visit Diagnoses Not on filedocumented in this encounter Care Teams Pipelayer Relationship Specialty Start Date End Date Marivel Faulkner APRN PCP - General 05/04/10 09/29/16 documented as of this encounter
--- OUTSIDE RECORDS SUMMARY | 2024-01-11 13:22 | XMS_ITS | Encounter Summary ---
Author Organization [facility] [place] [address] Care Team Providers Care Digital Engineer Name Role Phone Marivel Faulkner APRN Primary Care Provider + Encounter Details Date Type Department Care Team (Latest Contact Info) Description 09/22/2016 - 09/22/2016 11:59 PM EDT Hospital Encounter [place] [phone] Ariel Do MD [facility] [place] [address] Pain Discharge Disposition: Home Social History Tobacco Use [...] Sig Dispensed Refills Start Date End Date Calcium Carbonate-Vitamin D3 600 mg(1,500mg) -400 unit Tab Take 1 tablet by mouth daily. Reported on 01/03/2017 ACETAMINOPHEN (TYLENOL ORAL) Take 500 mg by mouth every 6 hours. *taking 2 tablets every 6 hrs as needed* 08/05/2010 krill oil 500 mg Cap Take 1 capsule by mouth daily. Reported on 12/06/2016 12/06/2016 amoxicillin (AMOXIL) 500 mg capsule Take 2,000 mg by mouth as needed. Reported on 12/06/2016 12/06/2016 aspirin 81 mg EC tablet Take 81 [...] STORAGE ONLY CT ABDOMEN AND PELVIS Routine 09/22/2016 12:00 AM EDT Pain documented in this encounter Results * Film Library- Storage Only CT Abdomen & Pelvis (09/22/2016 12:00 AM EDT) Narrative [facility] - 10/03/2016 9:20 AM EDT This exam is for storage only and is auto-finalizing. Ariel Do MD IMG FILM LIBRARY ORD ERABLES Performing Organization Address City/State/[facility] Co de Phone Number [place], [place] documented in this encounter Visit Diagnoses Diagnosis Pain Generalized pain documented in this encounter Care Teams Digital Engineer Relationship Specialty Start Date End Date Marivel Faulkner APRN PCP - General 05/04/10 09/29/16 documented as of this encounter
--- OUTSIDE RECORDS SUMMARY | 2024-01-11 13:22 | XMS_ITS | Encounter Summary ---
[place] [address] Care Team Providers Care Print Finisher Name Role Phone Dulce Hidalgo MD Primary Care Provider [phone] Reason for Referral * Diagnostic Test (Routine) - Closed Specialty Diagnoses / Procedures Referred By Contac t Referred To Contact Radiology Diagnoses Metastatic urothelial carcinoma Procedures PET CT Standard Skull Base to Mid-Thigh Danny Gordon MD [facility] [address] HEMATOLOGY [place] [address] [place] [address] Referral ID Status Reason Start Date Expiration Date V isits Requested Visits Authorized [id number] Closed Specialty Service Requested 12/06/2016 12/06/2017 1 1 Reason for Visit * Diagnostic Test (Routine) - Closed Specialty Diagnoses / Procedures Referred By Contac t Referred To Contact Radiology Diagnoses Metastatic urothelial carcinoma Procedures PET CT Standard Skull Base to Mid-Thigh Danny Gordon MD [facility] HEMATOLOGY [place] [address] [facility] [address] Referral ID Status Reason Start Date Expiration Date V isits Requested Visits Authorized [id number] Closed Specialty Service Requested 12/06/2016 12/06/2017 1 1 Encounter Details Date Type Department Care Team (Latest Contact Info) Description 12/21/2016 10:33 AM EDT - 12/21/2016 11:59 PM EDT Hospital Encounter [place] [address] Danny Gordon MD [facility] HEMATOLOGY [place] [address] Metastatic urothelial carcinoma Discharge Disposition: [...] 12/21/2016 12:45 PM EDT Metastatic urothelial carcinoma POCT GLUCOSE Routine 12/21/2016 11:11 AM EDT documented in this encounter Results * PET CT Standard Skull Base to Mid-Thigh (12/21/2016 12:45 PM EDT) Anatomical Region Laterality Modality Nuclear Medicine Impressions 12/21/2016 5:18 PM EDT No evidence of local tumor recurrence, regional armen or metastatic disease. Thank you for referring this patient to [facility]. I have personally reviewed the image(s) and the residents interpretation and agree with the findings, Elmo Abel at 12/21/2016 5:18 PM Narrative 12/21/2016 5:18 PM EDT EXAMINATION: PET CT STANDARD SKULL BASE TO MID-THIGH CLINICAL HISTORY: Staging of metastatic urothelial carcinoma TECHNIQUE: Following IV injection of 46-qmeelh-5-deoxyglucose (FDG) a standard uptake of approximately 60 [...] urothelial carcinoma TECHNIQUE: Following IV injection of 44-fcilzr-2-deoxyglucose (FDG) astandard uptake of approximately 60 minutes, [...] Thank you for referring this patient to [facility]. I have personally reviewed the image(s) and the residents interpretationand agree with the findings, Elmo Abel at 12/21/2016 5:18 PM Danny Gordon MD IMG PET ORDERABLES * POCT Glucose (12/21/2016 11:11 AM EDT) POC Glucose 95 65 - 199 mg/dL [facility] Comment: Supplemental ranges: <140 mg/dL before meals <180 mg/dL all other times of the day Blood specimen (specimen) 12/21/2016 11:11 AM EDT 12/21/2016 11:11 AM EDT Danny Gordon MD POINT OF CARE TEST O RDERABLES [facility] [place] [address] documented in this encounter Visit Diagnoses Diagnosis Metastatic urothelial carcinoma Secondary malignant neoplasm of other urinary organs documented in this encounter Administered Medications Inactive Administered Medications - up to 3 most recent administrations Medication Order MAR Action Action Date Dose Rate Site fludeoxyglucose (F-18) FDG injection 17.5 mCi 17.5 mCi, Intravenous, ONCE PRN, 1 dose, Starting on Mon12/21/16 at 1117, Until Mon12/21/16 at 1117, Per Protocol, IV: L-ACF, Routine Given 12/21/2016 11:17 AM EDT 17.5 mCi documented in this encounter Care Teams Print Finisher Relationship Specialty Start Date End Date Dulce Hidalgo MD [facility] [address] [place] [address] PCP - General Family Medicine 09/30/16 documented as of this encounter
--- OUTSIDE RECORDS SUMMARY | 2024-01-11 13:22 | XMS_ITS | Encounter Summary ---
Author Organization [facility] Address [facility] [place] [address] Care Team Providers Care Passenger Service Representative Name Role Phone Marivel Faulkner APRN Primary Care Provider + Encounter Details Date Type Department Care Team (Latest Contact Info) Description 01/16/2014 8:04 AM EDT - 01/16/2014 11:59 PM EDT Hospital Encounter XRay at [address] [place] [address] Bilateral knee pain Social History Tobacco Use Types Packs/Day Years [...] Name Priority Date/Time Associated Diagnosis Comments XR JOINT TEAM ALIGNMENT AP LAT SCHUSS SKYLINE Routine 01/16/2014 9:22 AM EDT Bilateral knee pain documented in this encounter Results * XR Joint Team alignment AP LAT Schuss [place] (01/16/2014 9:22 AM EDT) Anatomical Region Laterality Modality N/A Radiographic Faby ging 01/16/2014 9:22 AM EDT Narrative 01/16/2014 9:33 AM EDT Examination JOINT TEAM STANDING ALIGNMENT AP LAT SCHUSS SKYLINE/BILAT Clinical History BILAT KNEE PAIN S/P BILAT TKA 2008 [facility] 2ND OP Comparison Left knee 11/30/2013. Technique Departmental protocol. Separate images of the pelvis, knees and feet were acquired in the AP projection with the patient standing. In addition to routine views of the knee, these images were stitched together to form a composite image of the pelvis and legs allowing for evaluation of lower extremity alignment in the weight bearing position. Findings The patient is status post bilateral total knee arthroplasties. Focal radiolucency is identified along the posterior aspect of the tibial component within the left knee arthroplasty focus appears to been present on the prior examination. There is no periprosthetic lucency or fracture associated with a right knee prosthesis. There is 4 millimeters of medial deviation of the weight-bearing axis of the left lower extremity and 10 millimeters of lateral deviation of the weight-bearing axis of the right lower extremity. ?? Impression 1. The patient is status post bilateral total knee arthroplasties. Focal radiolucency is identified along the posterior aspect of the tibial component within the left knee arthroplasty but the focus appears to been present on the prior examination. Clinical correlation is suggested. If there is any concern of loosening of this prosthesis? 2. There is no periprosthetic lucency or fracture associated with a right knee prosthesis. ?? 3. There is 4 millimeters of medial deviation of the weight-bearing axis of the left lower extremity and 10 millimeters of lateral deviation of the weight-bearing axis of the right lower extremity. Procedure Note Matt Figueroa MD - 01/16/2014 Examination JOINT TEAM STANDING ALIGNMENT AP LAT SCHUSS SKYLINE/BILAT Clinical History BILAT KNEE PAIN S/P BILAT TKA 2009 [facility] 2ND OP Comparison Left knee 11/30/2013. Technique Departmental protocol. Separate images of the pelvis, knees and feet were acquired in the AP projection with the patient standing. In addition to routine views of theknee, these images were stitched together to form a composite image of thepelvis and legs allowing for evaluation of lower extremity alignment in the weightbearing position. Findings The patient is status post bilateral total knee arthroplasties. Focal radiolucency is identified along the posterior aspect of the tibialcomponent within the left knee arthroplasty focus appears to been present on theprior examination. There is no periprosthetic lucency or fracture associatedwith a right knee prosthesis. There is 4 millimeters of medial deviation of the weight-bearing axis of the left lower extremity and 10 millimeters oflateral deviation of the weight-bearing axis of the right lower extremity. Impression 1. The patient is status post bilateral total knee arthroplasties. Focal radiolucency is identified along the posterior aspect of the tibialcomponent within the left knee arthroplasty but the focus appears to been present onthe prior examination. Clinical correlation is suggested. If there is anyconcern of loosening of this prosthesis? 2. There is no periprosthetic lucency or fracture associated with a rightknee prosthesis. 3. There is 4 millimeters of medial deviation of the weight-bearing axisof the left lower extremity and 10 millimeters of lateral deviation of the weight-bearing axis of the right lower extremity. Jitendra Dean MD IMG DX ORDERABLES documented in this encounter Visit Diagnoses Diagnosis Bilateral knee pain Pain in joint, lower leg documented in this encounter Care Teams Passenger Service Representative Relationship Specialty Start Date End Date Marivel Faulkner APRN PCP - General 05/04/10 09/29/16 documented as of this encounter
--- OUTSIDE RECORDS SUMMARY | 2024-01-11 13:22 | XMS_ITS | Encounter Summary ---
[place] [address] Care Team Providers Care Needle Felt Making Machine Operator Name Role Phone Dulce Hidalgo MD Primary Care Provider [phone] Encounter Details Date Type Department Care Team (Latest Contact Info) Description 11/17/2016 Multidisciplinary [place] [id number] Jassi Santoyo MD [facility] [place] [address] Social History Tobacco Use Types Packs/Day Years Used Date Smoking Tobacco: Never Smokeless Tobacco: Never Alcohol Use Standard Drinks/Week Comments No 0 (1 standard drink = 0.6 oz pur e alcohol) Sex and Gender Information Value Date Recorded Sex Assigned at Not on file Gender Identity Not on file Sexual Orientation Not on file documented as of this encounter Progress Notes * Jassi Keller MD - 11/17/2016 4:29 PM EDT - Tumor Board Note Date Presented: 11/17/2016 Presenting Physician: Ngoc on behalf of Ernestina Diagnosis/Tumor Site: Urothelial cancer Is this Metastatic Disease: No Synopsis of History/HPI: Isaura Aguiar is a 75 y.o. female who is referred for evaluation of ?? The patient has not felt herself for about a month. She has had right flank pain radiating around to the front. Varies sharp pain to dull ache (4/10). Pain is stable. She feels she needs to void all the time. She has had hematuria on 1 day ~ 2 weeks ago. ?? Currently the patient has some irritative symptoms with minimal frequencyand nocturia x 2. The urinary stream is OK and the bladder is emptied completely. ? Appetite is poor. Weight is down 7 lbs. There is no bone pain. After being evaluated in clinic she ultimately elected for right nephro- ureterectomy. Operative findings are below: Exceptionally difficult surgery due to patients morbid obesity and tumor size and adherence to iliac vessels Nephrectomy portion relatively straight forward Ureter very adherent to iliac vessels with extra ureteral and armen tumor extension. Grossly positive margin on iliac vessels. Marked by 3 metal small metal clips Distal ureterectomy very difficult due to lack of abdominal space from patients obesity and adhesions to her prior hysterectomy site and multple small bowel adhesions in the pelvis. Adhesions lysed Ureter completely resected with bladder cuff MELY well preserved ~ 10cm cystotomy closed primarily She is being presented today for discussion of pathology and related imaging. Imaging: Left kidney is normal. Right kidney hydronephrotic to level of the bladder, with thickened enhancing distal ureteral mass extending into the bladder. Minimal residual parenchyma on the right. Pathology/Histology: DIAGNOSIS A - Lymph nodes attached to [...] ?b. Perineural and vascular invasion identified (proximal ureter). ? 4. One lymph node, no evidence of malignancy (0/1). ? 5. Hydronephrosis and hydroureter. ? 6. Chronic pyelonephritis and ureteritis. 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 She should see Medical Oncology and Radiation Oncology. May have chemo followed by radiation. DISCLAIMER: The patient was discussed and the tumor board made recommendations but it is ultimatelyup to the treatment provider(s) and the patient to determine the patient???s care. documented in this encounter Plan of Treatment Not on file documented as of this encounter Visit Diagnoses Not on filedocumented in this encounter Care Teams Needle Felt Making Machine Operator Relationship Specialty Start Date End Date Dulce Hidalgo MD [facility] [address] [place] [address] PCP - General Family Medicine 09/30/16 documented as of this encounter
--- OUTSIDE RECORDS SUMMARY | 2024-01-11 13:22 | XMS_ITS | Encounter Summary ---
Author Organization [facility] Address [facility] [place] [address] Care Team Providers Care Metal Sander Name Role Phone Dulce Hidalgo MD Primary Care Provider [phone] Encounter Details Date Type Department Care Team (Latest Contact Info) Description 10/05/2016 4:02 PM EDT - 10/05/2016 11:59 PM EDT Hospital Encounter XRay at [address] [place] [address] Ariel Do MD [facility] [place] [address] Hydronephrosis, unspecified hydronephrosis type; Bladder mass; Hematuria Discharge Disposition: Home Social History Tobacco Use [...] Comments XR CHEST PA AND LATERAL Routine 10/05/2016 4:11 PM EDT Hydronephrosis, unspecified hydronephrosis type Bladder mass Hematuria documented in this encounter Results * XR Chest PA & Lateral (Generic) (10/05/2016 4:11 PM EDT) Anatomical Region Laterality Modality Chest N/A Digital Radiogra phy Impressions 10/05/2016 4:41 PM EDT No evidence of pulmonary metastatic disease. Narrative 10/05/2016 4:41 PM EDT EXAMINATION: XR CHEST PA AND LATERAL (GENERIC) CLINICAL HISTORY: Right Ureteral tumor ? New lung nodules TECHNIQUE: PA and lateral chest. COMPARISON: May 26, 2006. FINDINGS: Stable findings of the lungs. No pulmonary nodule. No pleural effusion. Unchanged cardiac mediastinal silhouette and vascular markings. Degenerative changes of the spine. Procedure Note Lisa Waggoner MD - 10/05/2016 EXAMINATION: XR CHEST PA AND LATERAL (GENERIC) CLINICAL HISTORY: Right Ureteral tumor ? New lung nodules TECHNIQUE: PA and lateral chest. COMPARISON: May 26, 2006. FINDINGS: Stable findings of the lungs. No pulmonary nodule. No pleural effusion. Unchanged cardiac mediastinal silhouette and vascular markings.Degenerative changes of the spine. IMPRESSION No evidence of pulmonary metastatic disease. Ariel Do MD IMG DX ORDERABLES documented in this encounter Visit Diagnoses Diagnosis Hydronephrosis, unspecified hydronephrosis type Bladder mass Other specified disorders of bladder Hematuria Hematuria, unspecified documented in this encounter Care Teams Metal Sander Relationship Specialty Start Date End Date Dulce Hidalgo MD [address] [place] [address] PCP - General Family Medicine 09/30/16 documented as of this encounter
--- OUTSIDE RECORDS SUMMARY | 2024-01-11 13:22 | XMS_ITS | Encounter Summary ---
[place] [address] Care Team Providers Care Rn Medicare Name Role Phone Dulce Hidalgo MD Primary Care Provider [phone] Reason for Referral * Consultation (Routine) - Closed Specialty Diagnoses / Procedures Referred By Christal lainez Referred To Contact Hematology and Oncology Diagnoses Metastatic urothelial carcinoma Yara Llamas MD [facility] [place] [address] St Hem Onc Office [address] [place] [phone] Referral ID Status Reason Start Date Expiration Date V isits Requested Visits Authorized [id number] Closed Consult, Test & Treat 11/21/2016 11/21/2017 1 1 Reason for Visit * Reason Comments Follow-up Encounter Details Date Type Department Care Team (Late st Contact Info) Description 11/21/2016 11:20 AM EDT [place] [address] Ariel Do MD [facility] [place] [address] Metastatic urothelial carcinoma; Ureteral cancer, right Social History Tobacco Use [...] as of this encounter Progress Notes * Yara Llamas MD - 11/21/2016 11:20 AM EDT Images from the original note were not included. Patient Name: Isaura Aguiar Date of Service: 11/21/2016 Primary Care Provider: Dulce Hidalgo MD Reason for Visit: Isaura Aguiar is a 76 y.o. 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 She was seen in pre-op on 10/05/2016 and at that time had not felt herself for about a month. She has had right flank pain radiating around to the front. Varies sharp pain to dull ache (4/10). Pain isstable. She feels she needs to void all the time. She has had hematuria on 1 day ~ 2 weeks ago. Appetite was poor. Weight is down 7 lbs. There was no bone pain. Her hospital course was uncomplicated. She was discharged on POD#4 with a catheter in place. Scr was 1.16 on discharge. She returns today for a TOV after cystogram and follow-up. Ms. Aguiar reports that se is doing well. She is no longer needing pain medication. No hematuria, fevers, chills, nausea, vomiting. Bowel movements are back to normal, about once or twice per day. She is walking around well. She has her appetite back and is eating well. Her data was presented at Tumor Board last week and the recommendation was for cisplatin adjuvant chemotherapy and possible radiation. We will refer to her medical oncology and radiation oncology. Patient Active Problem List Diagnosis ??? Ureteral cancer ??? Renal mass ??? 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 The patient has been for 55years with 3 children. The patient drinks no ETOH Tobacco: Never Physical Exam: Vital Signs are reviewed. The patient appears healthy and in no distress. Examination of the hands, head neck, eyes ears nose and throat is normal. The skin is normal. Thereis no lymphadenopathy or thyroidomegaly The chest is clear to percussion and auscultation. Heart sounds I and II are normal without murmurs or added sounds. Peripheral pulses are full without bruits Abd: soft, no-distended, incision healing well, no tenderness to palation, no CVA tenderness Lab values are reviewed 09/15/2016 Cr 1.46, eGFR 35, Ca 9.3, Ca 125 10, Hb 13.9, Plt 235, Hb A1c 6.2. X-rays are reviewed Left kidney is normal. Right kidney hydronephrotic to level of the bladder, with thickened enhancing distal ureteral mass extending into the bladder. Minimal residual parenchyma on the right. No lymphadenpathy. 09/2016 CXR IMPRESSION No evidence of pulmonary metastatic disease. Cystoscopy 10/05/2016 Large tumor emerging and distending RUO appears Ta High grade. MELY normal. No other bladder tumors 11/21/2016 post-op fluoro cystogram No extravasation of contrast seen. Official read pending. Pathology: 11/02/2016 A - Lymph nodes attached to iliac [...] hydroureter. ? 6. Chronic pyelonephritis and ureteritis. Impression: #1: Metastatic high grade Urothelial cancer of the right ureter, pT3pN2, s/p right nephroureteretcomy, negative bladder cuff margin #2 No extravasation seen on cystogram today #3: Stage 3a CRI #4: Morbid obesity #5: BRAC2 mutation #6: Moderate co-morbidity Plan: Passed trial of void today successfully. Will refer to medical oncology for adjuvant chemotherapy and radiation in [facility]. Follow-up in our clinic in 3 months for a cystoscopy. Yara Llamas MD Urology PGY-3 Pager: [phone] * Ariel Do MD - 11/21/2016 11:20 AM EDT Attending Addendum I have seen the patient and reviewed the history and examination. I agree with the details as written. The assessment and plan were formulated in discussion with me and I agree with them as documented. I would add the following: [id number] High grade UCC of the Right Ureter sp Nephroureterectomy with residual tumor on the right iliac vessels/ Doing well. Abdomen benign Cystogram negative Cr 1.18 Pathology/prognosis discussed Recommend Adjuvant chemotherapy followed by XRT to Right pelvic nodes. She wiill do in [facility]. I will see her in 3 months for a cystoscopy Ariel Sanchez> Ernestina Sanchez. 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
--- OUTSIDE RECORDS SUMMARY | 2024-01-11 13:22 | XMS_ITS | Encounter Summary ---
[place] [address] Care Team Providers Care Training Development Specialist Name Role Phone Marivel Faulkner APRN Primary Care Provider + Reason for Visit * Reason Comments Follow-up Encounter Details Date Type Department Care Team (Late st Contact Info) Description 11/06/2012 2:00 PM EDT Follow-Up H[place] [id number] Shaheed Rios MD [facility] HEMATOLOGY/[place] [address] Breast cancer (Primary Dx) Discharge Disposition: Home Social History Tobacco Use [...] Sign Reading Time Taken Comments Blood Pressure 133/58 11/06/2012 1:53 PM EDT Pulse 65 11/06/2012 1:53 PM EDT Temperature 36.6 ??C (97.9 ??F) 11/06/2012 1:53 PM ED T Respiratory Rate 16 11/06/2012 1:53 PM EDT Oxygen Saturation 100% 11/06/2012 1:53 PM EDT Inhaled Oxygen Concentration - - Weight 122 kg (268 lb 15.4 oz) 11/06/2012 1:53 P M EDT Height 154.9 cm (5' 1) 11/06/2012 1:53 PM EDT Body Mass Index 50.82 11/06/2012 1:53 PM EDT documented in this encounter Progress Notes * Kenyatta Thrasher, DERMATOLOGY NURSE - 11/06/2012 2:22 PM EDT Subjective: Patient ID: Isaura Aguiar is a 72 y.o. female with Stage I Breast cancer here for follow up. HPIMs. Aguiar presented April 28, 2006 on screening mammography with a question of a mass in theretroareolar left breast. There was a stable fibroglandular pattern without significant change on the right. 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 There was no lymphovascular invasion. Estrogen and progesterone receptors were positive, and Her-2 was unamplified. One of two sentinel nodes was positive by H&E and by IHC for single cellsand clusters of 2-3 cells involving an area of 2 mm of the node. There was benign tissue on the right, and two right-sided sentinel nodes were negative. We met on June 15, 2006, she declined adjuvant chemotherapy, and she elected to be treated with anastrozole. The anastrozole was started in June 2006. Interval history: Isaura reports to feeling well since her last visit. The arthralgias in her hands and ankles resolved with cessation of anastrozole. She has ongoing pain in her left leg focally around the knee. She has seen her PCP and an ultrasound is planned. Hot flashes are rare. She has begun losing weight with the [employer]ystem. For exercise she has been gardening and weed wracking. She has a stationary recumbent bike that she rides 15 to 20 minutes daily for the past two years. Review of Systems Constitutional: Negative. HENT: Negative. Eyes: Negative. Respiratory: Negative. Cardiovascular: Negative. Gastrointestinal: Negative. Genitourinary: Negative. Musculoskeletal: Positive for arthralgias. Skin: Negative. Neurological: Negative. Hematological: Negative. Psychiatric/Behavioral: Negative. Objective: Physical Exam Vitals reviewed. Constitutional: She is oriented to person, place, and time. She appears well- developed and well-nourished. HENT: Head: Normocephalic. Right Ear: External ear normal. Left Ear: External ear normal. Mouth/Throat: Oropharynx is clear and moist. No oropharyngeal exudate. Eyes: Conjunctivae normal are normal. Pupils are equal, round, and reactive to light. No scleral icterus. Neck: Normal range of motion. Neck supple. Cardiovascular: Normal rate, regular rhythm, normal heart sounds and intact distal pulses. No murmur heard. Pulmonary/Chest: Effort normal and breath sounds normal. She exhibits no tenderness. S/p bilateral mrm, scars intact with no nodules, masses or axillary adenopathy. Abdominal: Soft. Bowel sounds are normal. Musculoskeletal: Normal range of motion. Lymphadenopathy: She has no cervical adenopathy. Neurological: She is alert and oriented to person, place, and time. Skin: Skin is warm and dry. Psychiatric: She has a normal mood and affect. Her behavior is normal. Judgment and thought contentnormal. Assessment and Plan: Ms. Boogie is a 72 yo female with a h/o stage I breast cancer and stage III ovarian cancer. She isdoing well with no evidence of disease recurrence. She is 9 years out from diagnosis of breast cancer and completed her planned 5 year course of AI therapy greater than one year ago. She is followed closely by her PCP. She is agreeable to being d/c from the comprehensive breast program and being followed by her PCP. Return to clinic prn. Kenyatta Thrasher APRN- Hematology Oncology documented in this encounter Plan of Treatment Not on file documented as of this encounter Visit Diagnoses Diagnosis Breast cancer- Primary Malignant neoplasm of breast (female), unspecified site documented in this encounter Care Teams Training Development Specialist Relationship Specialty Start Date End Date Marivel Faulkner APRN PCP - General 05/04/10 09/29/16 documented as of this encounter
--- OUTSIDE RECORDS SUMMARY | 2024-01-11 13:22 | XMS_ITS | Encounter Summary ---
Author Organization [facility] [place] [address] Care Team Providers Care Taker Away Name Role Phone Marivel Faulkner APRN Primary Care Provider + Reason for Visit * Reason Comments Skin Lesion Encounter Details Date Type Department Care Team (Late st Contact Info) Description 05/17/2012 11:45 AM EST Office Visit Dermatology at [facility] [address] [place] [id number] Ciro Ruth MD [facility] [place] [address] AK (actinic keratosis) (Primary Dx); SK (seborrheic keratosis); Milia Discharge Disposition: Home Social History Tobacco Use [...] as of this encounter Progress Notes * Abdullahi Hebert LPN - 05/17/2012 11:50 AM EST DERMATOLOGY NEW PATIENT CLINIC NOTE Date of service: 05/17/2012 Isaura Aguiar : 1940 Provider: Ciro Ruth MD PROBLEM: skin lesion HPI Ms. Aguiar is a 71 y.o. year old female . New patient; self-referred. Here today for a skin lesion on her left wrist that has been changing.She also has a pink area on her right forearm for when she went through the ice when she was a kid. SKIN HX: ADR: Sulfa(sulfonamide antibiotics) MEDS: Current Outpatient Prescriptions on File Prior to Visit Medication Sig Dispense Refill ??? cholecalciferol, Vitamin D3, 400 unit tablet Take 1,000 Units by mouth daily. ??? CIS Free Text Med - ASA ??? atenolol (TENORMIN) 50 mg tablet ??? CALCIUM CITRATE/VITAMIN D3 (CITRACAL + D ORAL) ??? simvastatin (ZOCOR) 10 mg tablet ??? ACETAMINOPHEN (TYLENOL ORAL) ??? OMEPRAZOLE (PRILOSEC ORAL) ROS General: feeling well Skin: denies other skin complaints EXAM General: NAD, pleasant, cooperative Skin: A total body skin exam except for areas covered by underwear was performed. This includes examination of the skin of the face, ears, neck, chest, axillae, left and right upper and lower extremities, hands and feet, abdomen, and except the areas covered by underwear were not examined. Significant skin findings: A. Multiple 0.4 cm -1 cm valencia-brown papules/plaques with waxy stuck on appearance,scattered and including the right wrist,face torso. B. Left form arm- C. 0.2-0.3cm scaly irregular pink papule(s) face x 6 D. 0.1cm firm, round, white subcutaneous papule on cheek ASSESSMENT/PLAN: A. seborrheic keratosis-pt reassured B. actinic keratosis-Procedure(s): Destruction of lesion(s) with cryotherapy. Number: 6 Location: as above Discussed procedure and expectations including risks (including risk of hypopigmentation) and benefits. Verbal consent obtained. Frozen with LN2, 15-30 second thaw time, TWICE. There were no complications; the patient tolerated the procedure well. Post-procedure expectations and wound care were reviewed. Lois-pt reassured. RTC in 1 year or sooner as needed Note initiated by: ABDULLAHI HEBERT LPN Routed to physician for review and changes: Ciro Ruth MD Section of Dermatology [facility] documented in this encounter Plan of Treatment Not on file documented as of this encounter Visit Diagnoses Diagnosis AK (actinic keratosis)- Primary Actinic keratosis SK (seborrheic keratosis) Other seborrheic keratosis Milia Sebaceous cyst documented in this encounter Care Teams Taker Away Relationship Specialty Start Date End Date Marivel Faulkner, NANCI PCP - General 05/04/10 09/29/16 documented as of this encounter
--- OUTSIDE RECORDS SUMMARY | 2024-01-11 13:22 | XMS_ITS | Encounter Summary ---
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 URETECTOMY @LAPAROSCOPY TOTAL NEPHROURETERECTOMY, ROBOTICS ASSIST (WRVU 25.36) Referral ID Status Reason Start Date Expiration Date Visits Re quested Visits Authorized 1 1 Encounter Details Date Type Department Care Team (Late st Contact Info) Description 11/02/2016 2:41 PM EDT Anesthesia Event [place] [address] Everton De Guzman MD [facility] [place] [address] Jitendra Drake MD [facility] [place] [address] Anesthesia Record Procedure Summary Procedure Name Responsible Anesthesiologist Anesthesia Start Time Anesthesia Stop Time @ROBOTIC LAPAROSCOPY TOTAL NEPHROURETERECTOMY (WRVU 25.36) (Right: Flank) Everton De Guzman MD 11/02/16 1441 11/02/16 2325 Events Date Time Event Comment 11/02/2016 1314 1441 AN Verify 1441 Start 1441 An Start Data 1455 An Induction 1456 An Intubation 1508 Anesthesia Ready 1559 Procedure Start 1607 Break/Relief In MANSI T BR ITTON, SERVICE DESK TEAM LEAD 1615 Quick Note A-line position al, wrist repositioned. 1624 Break/Relief Out 193 Quick Note repositioned louis pine on second OR table. 2123 Quick Note BIS SQI = 100 2318 Extubation/LMA Out Extubated when TV 500 RR 15, opens eyes, following commands, OP sxn. Exchanging well. O2 via face mask following extubation. 9 an stop data 2325 Recovery or ICU Handoff Bernice ent care was transferred to the destination unit staff after review of the patient's medical history, current anesthetic/surgical status and plan, according to the Provider Handoff Checklist. 2324 Stop Meds Name Total Midazolam 2 mg fentaNYL 250 mcg IV Lidocaine 50 mg Propofol 200 mg Rocuronium 150 mg PHENYLephrine 240 mcg ePHEDrine 5 mg Neostigmine 4 mg Glycopyrrolate 0.8 mg ceFAZolin (ANCEF) 2g in dextrose 5% 100 mL 6 g heparin (porcine) subcutaneous injection 5,000 Units 5,000 Units Dexmedetomidine INF 55.89 mcg Propofol INF 430.01 mg PHENYLephrine INF 320 mcg Lactated Ringers 1,000 mL Lactated Ringers 2,000 mL * Agents Name O2 Air N2O Sevoflurane (et) * Blood No blood administrations on file. Lines, Drains, and Airways Type Details Placement Removal Drain/Device Site 11/02/16; Left; abdomen; collapsible closed device; Dr. Do.; 19FR terra drain to bulb suction.; 11/06/16; 1030 (removed by MD Mares) 11/02/16 0000 by Madhavi Lieberamn RN 11/06/16 1030 by Kenyatta Betts RN (RETIRED) Peripheral IV Line - Single Lumen 11/02/16; 1246; median cubital vein (antecubital fossa), left; [id number] catheter system; 18 gauge; distraction, intradermal injection, tolerated well, appears comfortable; 11/04/16; 1732 11/02/16 1246 by Sixto Vallejo RN 11/04/16 1732 by Yris Marin LPN ETT Mask Ventilation: Ea pretty (1); ETT Type: Cuffed, Oral; ETT Size: 7.5 mm; Herrera Blade: 2; Notes: Asleep, Pre-O2, Stylette; Attempts: 1; Laryngoscopy Grade: 1; ETT Placement Verified By: Auscultation, Capnometry, Visual; Secured at Teeth: 21 cm; Inserted by: Vidal; Removal Date: 11/02/16; Removal Time: 231811/02/16 1501 by Rom Boyer CRNA 11/02/16 2319 by Rowena Castelan CRNA (RETIRED) Peripheral IV Line - Single Lumen 11/02/16; 1508; 18 gauge; Beach; 11/06/16; 1038 11/02/16 1508 by Rom Boyer CRNA 11/06/16 1038 by Gina Oliveros LNA Arterial Line 11/02/16; 1508; radi al artery, left; 20 gauge; Vidal; Sterile Prep, Sterile Gloves; no longer indicated; 11/03/16; 0230 11/02/16 1508 by Rom Boyer CRNA 11/03/16 0230 by Liz Bates RN Urethral Catheter 11/02/16; 1530; Urologic surgery; other (see comments) (d/t nature of surgery); indwelling double lumen catheter; hydrophilic coated; 14; inserted at this facility; 1; 5; 10; none; drainage bag to dependent drainage; 12/21/16 11/02/16 1530 by Sahara Iqbal RN 12/21/16 0000 by Catie Bradley RN Incision 11/02/16; 1610; abdomen; laparoscopic punctures (specify); 07/21/18; 0938 11/02/16 1610 by Sahara Iqbal RN 07/21/18 0938 by Zahra Fink RN documented in this encounter Social History [...] OR Notes * Anesthesia Postprocedure Evaluation - Everton De Guzman MD - 11/03/2016 12:00 AM EDT [facility] Department of Anesthesiology Post-procedure Note Patient: Isaura Aguiar Procedure Summary Date Anesthesia Start Anesthesia Stop Room / Location 11/02/16 8242 [id number] [facility] OR [facility] MAIN OR Procedure Diagnosis Surgeon Responsible Provider @LAPAROSCOPY TOTAL NEPHROURETERECTOMY, ROBOTICS ASSIST (WRVU 25.36) (Right Flank); MODIFIER ROBOT,DAVINCI XI (N/A ); LAPAROSCOPIC, EXTENSIVE LYSIS ADHESIONS (WRVU *) (N/A Abdomen) Ureteral mass; Ureteral cancer, right (Right ureteral cancer) Ariel Do MD Chinn, Christopher D, MD All Anesthesia Providers: Anesthesiologist: Jitendra Drake MD; Everton De Guzman MD; Ariel Hart MD SERVICE DESK TEAM LEAD: Rom Boyer CRNA; Rowena Castelan CRNA Last (1hr) Vitals: BP Temp Pulse Resp SpO2 Patient Location: PACU/[facility] Level of Consciousness: Awake and Alert Pain Management: Satisfactory Analgesia PONV: None Cardiovascular Status: At Baseline and Hemodynamically Stable Respiratory Status: At Baseline and Room Air Postoperative Fluid Status: Intravascular EUvolemia Possible Anesthetic Complications: NONE apparent at time of evaluation Final Primary Anesthesia Type: General (The anesthetic type performed was the same as planned.) Comments: EVERTON DE GUZMAN MD * Anesthesia Preprocedure Evaluation - Jitendra Drake MD - 11/02/2016 1:12 PM EDT Pre-Anesthesia Evaluation for: Isaura Aguiar a 76 y.o. female. Procedure(s): @LAPAROSCOPY TOTAL NEPHROURETERECTOMY, ROBOTICS ASSIST (WRVU 25.36) MODIFIER ROBOT,DAVINCI XI Patient Active Problem List Diagnosis ??? Ureteral [...] ??? Stage III Ovarian cancer Social History Substance Use Topics ??? Smoking status: Never Smoker ??? Smokeless tobacco: Never Used ??? Alcohol use No History Drug Use No Allergies Allergen Reactions ??? Glucosamine-Chondroitn Sulf.Na Nausea Only Intense cramping too ??? Tegaderm [Transparent Dressings] Rash ??? Sulfa (Sulfonamide Antibiotics) Other (See Comments) liver damage Medications: MAR and/or home medications have been reviewed. Physical Exam: Vitals: 11/02/16 1216 BP: 151/58 Pulse: 63 Resp: 16 Temp: 36.2 ??C (97.2 ??F) Body mass index is 56.64 kg/(m^2). Height: 152.4 cm (5') Weight - Scale: (!) 131.5 kg (290 lb) Airway Assessment: Mallampati: II TM distance: <3 FB Cardiovascular Assessment: cardiovascular exam normal Pulmonary Assessment: pulmonary exam normal Dental Assessment: Misc Assessment: Anesthesia Plan: ASA 2 general, with a(n) intravenous induction Informed Consent: PAT Staff Note HTN Obesity Previous GA without complication Plan GA 2 IV and a line Pt agrees to interventions as needed include blood and invasive monitoring. She has no cardiac disease other than htn documented in this encounter Plan of Treatment Not on file documented as of this encounter Visit Diagnoses Not on filedocumented in this encounter Administered Medications Inactive Administered Medications - up to 3 most recent administrations Medication Order MAR Action Action Date Dose Rate Site ceFAZolin (ANCEF) 2g in dextrose 5% 100 mL 2 g, Intravenous, 30 MIN PRE-OP, 1 dose, On Mon11/02/16 at 0000, Administer over 30 Minutes, Indication for (Active or Suspected): Skin/Skin Structure Given 11/02/2016 9:08 PM EDT 2 g Given 11/02/2016 6:08 PM EDT 2 g Given 11/02/2016 3:08 PM EDT 2 g dexmedetomidine (PRECEDEX) IV infusion (anesthesia) CONTINUOUS PRN, Starting on Mon11/02/16 at 2115, Until Chloe 11/03/16 at 0641, Anesthesia Intra-op, Routine Rate/Dose Change 11/02/2016 11:04 PM EDT 0.2 mcg/kg/hr 6.6 mL/hr Rate/Dose Change 11/02/2016 10:48 PM EDT 0.4 mcg/kg/hr 13. 2 mL/hr Rate/Dose Change 11/02/2016 10:45 PM EDT 0.3 mcg/kg/hr 9.9 mL/hr ePHEDrine 5 mg/mL multi-dose injection PRN, Starting on Mon11/02/16 at 1616, Until Chloe 11/03/16 at 0641, Anesthesia Intra-op, Routine Given 11/02/2016 4:16 PM EDT 5 mg fentaNYL 50 mcg/mL multi-dose injection PRN, Starting on Mon11/02/16 at 1441, Until Chloe 11/03/16 at 0641, Pain, Anesthesia Intra-op, Routine Given 11/02/2016 4:48 PM EDT 50 mcg Given 11/02/2016 3:29 PM EDT 100 mcg Given 11/02/2016 2:55 PM EDT 100 mcg glycopyrrolate (ROBINUL) multi-dose injection PRN, Starting on Mon11/02/16 at 2255, Until Chloe 11/03/16 at 0641, Anesthesia Intra-op, Routine Given 11/02/2016 10:55 PM EDT 0.8 mg heparin (porcine) subcutaneous injection 5,000 Units 5,000 Units, Subcutaneous, 30 MIN PRE-OP, 1 dose, On Mon11/02/16 at 0000, Routine Given 11/02/2016 3:08 PM EDT 5,000 Units lactated Ringers infusion CONTINUOUS PRN, Starting on Mon11/02/16 at 1441, Until Chloe 11/03/16 at 0641, Anesthesia Intra-op New Bag 11/02/2016 2:41 PM EDT lactated Ringers infusion CONTINUOUS PRN, Starting on Mon11/02/16 at 1508, Until Chloe 11/03/16 at 0641, Anesthesia Intra-op New Bag 11/02/2016 9:00 PM EDT New Bag 11/02/2016 3:08 PM EDT lidocaine (PF) (XYLOCAINE) 100 mg/5 mL (2 %) injection PRN, Starting on Mon11/02/16 at 1441, Until Chloe 11/03/16 at 0641, Anesthesia Intra-op, Routine Given 11/02/2016 2:55 PM EDT 50 mg midazolam (PF) (VERSED) 1 mg/mL multi-dose injection PRN, Starting on Mon11/02/16 at 1441, Until Chloe 11/03/16 at 0641, Sleep, Anesthesia Intra-op, Routine Given 11/02/2016 2:41 PM EDT 2 mg neostigmine (PROSTIGMINE) multi-dose injection PRN, Starting on Mon11/02/16 at 2255, Until Chloe 11/03/16 at 0641, Anesthesia Intra-op, Routine Given 11/02/2016 10:55 PM EDT 4 mg PHENYLephrine (GEREMIAS-SYNEPHRINE) 20 mg in sodium chloride 250 mL (standard ADULT & Adan greater than 20kg) infusion CONTINUOUS PRN, Starting on Mon11/02/16 at 2217, Until Chloe 11/03/16 at 0641, Anesthesia Intra-op, Routine New Bag 11/02/2016 10:17 PM EDT 20 mcg/min 15 mL/hr PHENYLephrine HCl in NS (PF) (GEREMIAS-SYNEPHRINE) 0.8 mg/10 mL (80 mcg/mL) multi-dose injection Syrg PRN, Starting on Mon11/02/16 at 1717, Until Chloe 11/03/16 at 0641, Anesthesia Intra-op, Routine Given 11/02/2016 10:00 PM EDT 80 mcg Given 11/02/2016 6:35 PM EDT 80 mcg Given 11/02/2016 5:17 PM EDT 80 mcg propofol (DIPRIVAN) 10 mg/mL bolus injection (Anesthesia) PRN, Starting on Mon11/02/16 at 1441, Until Chloe 11/03/16 at 0641, Anesthesia Intra-op Given 11/02/2016 3:29 PM EDT 50 mg Given 11/02/2016 2:55 PM EDT 150 mg propofol (DIPRIVAN) infusion CONTINUOUS PRN, Starting on Mon11/02/16 at 2115, Until Chloe 11/03/16 at 0641, Anesthesia Intra-op, Routine New Bag 11/02/2016 9:15 PM EDT 30 mcg/kg/min 23.7 mL/hr rocuronium (ZEMURON) multi-dose injection PRN, Starting on Mon11/02/16 at 1455, Until Chloe 11/03/16 at 0641, Anesthesia Intra-op, Routine Given 11/02/2016 8:28 PM EDT 20 mg Given 11/02/2016 8:00 PM EDT 20 mg Given 11/02/2016 6:52 PM EDT 10 mg documented in this encounter Care Teams Cognos Relationship Specialty Start Date End Date Dulce Hidalgo MD Veronique [address] [facility] [address] [place] [address] PCP - General Family Medicine 09/30/16 documented as of this encounter
--- OUTSIDE RECORDS SUMMARY | 2024-01-11 13:22 | XMS_ITS | Encounter Summary ---
[place] [address] Care Team Providers Care Volunteer Patient Representative Name Role Phone Marivel Faulkner APRN Primary Care Provider + Encounter Details Date Type Department Care Team (Late st Contact Info) Description 12/16/2013 Orders [place] [address] Jitendra Dean MD [facility] [place] [address] Bilateral knee pain (Primary Dx) Social History Tobacco Use Types [...] documented as of this encounter Results * XR Joint Team alignment AP LAT Schuss [place] (01/16/2014 9:22 AM EDT) Anatomical Region Laterality [...] this encounter Visit Diagnoses Diagnosis Bilateral knee pain- Primary Pain in joint, lower leg Bilateral knee pain Pain in joint, lower leg documented in this encounter Care Teams Volunteer Patient Representative Relationship Specialty Start Date End Date Marivel Faulkner APRN PCP - General 05/04/10 09/29/16 documented as of this encounter
--- OUTSIDE RECORDS SUMMARY | 2024-01-11 13:22 | XMS_ITS | Encounter Summary ---
Author Organization [facility] [place] [address] Care Team Providers Care Machine Or Machinery Mechanic Name Role Phone Marivel Faulkner APRN Primary Care Provider + Reason for Referral * Physical Therapy (Routine) - Complete - Patient Will Schedule External Appt Specialty Diagnoses / Procedures Referred By Contac t Referred To Contact Physical Therapy Diagnoses It band syndrome, left Jitendra Dean MD [facility] [place] [address] Referral ID Status Reason Start Date Expiration Date Visits Requested Visits Authorized [id number] Complete - Patient Will Schedule External Appt Evaluate and Treat 01/16/2014 07/15/2014 15 15 Reason for Visit * Reason Comments Bilateral Knee Pain s/p b/l tka dos 03/01 09 Encounter Details Date Type Department Care Team (Late st Contact Info) Description 01/16/2014 8:50 AM EDT Office [place] [address] Jitendra Dean MD [facility] [place] [address] IT band syndrome, left (Primary Dx); 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, bilateral done at [facility] 02/24/09 Discharge Disposition: Home Social History Tobacco Use [...] Sign Reading Time Taken Comments Blood Pressure 126/62 01/16/2014 9:29 AM EDT Pulse 59 01/16/2014 9:29 AM EDT Temperature - - Respiratory Rate - - Oxygen Saturation - - Inhaled Oxygen Concentration - - Weight 117.2 kg (258 lb 4.8 oz) 01/16/2014 9:29 AM EDT Height 154.9 cm (5' 1) 01/16/2014 9:29 AM EDT Body Mass Index 48.81 01/16/2014 9:29 AM EDT documented in this encounter Progress Notes * Jitendra Dean MD - 01/16/2014 10:08 AM EDT Subjective: Patient ID: Isaura Aguiar is a 73 y.o. female. DOS: 02/24/09 [facility] Dr. Welch HPI Patient has always had pain in the knee since surgery or at least a tight band across the frontof the knees. More recently she has had worsening pain along the lateral aspect of the knee that radiates up the posterior lateral thigh. She saw Dr. Welch's PA but could not see Dr. Welch. She presents for second opinion. She has survived cancer twice and was concerned about this being related. She was told her labs were normal. She is here with her . No fever or chills. No injury. Allergies Allergen Reactions ? ? Glucosamine & Chondroit Sul.Na Nausea Only Intense cramping too ??? Sulfa (Sulfonamide Antibiotics) Other (See Comments) liver damage Patient Active Problem List Diagnosis Code ??? 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 Benign essential tremor 333.1 ??? Hypertension 401.9 ??? Breast cancer, stage 1 174.9 ??? Stage III Ovarian cancer 183.0 ??? Osteopenia 733.90 ??? SK (seborrheic keratosis) 702.19 ??? AK (actinic keratosis) 702.0 Current Outpatient Prescriptions on File Prior to Visit Medication Sig Dispense Refill ??? hydrochlorothiazide (HYDRODIURIL) 25 mg tablet Take 25 mg by mouth daily. ??? aspirin 81 mg EC tablet Take 81 mg by mouth daily. ??? atenolol (TENORMIN) 50 mg tablet ??? simvastatin (ZOCOR) 10 mg tablet ??? [DISCONTINUED] cholecalciferol, Vitamin D3, 400 unit tablet Take 1,000 Units by mouth daily. ??? CALCIUM CITRATE/VITAMIN D3 (CITRACAL + D ORAL) ??? ACETAMINOPHEN (TYLENOL ORAL) ??? [DISCONTINUED] CIS Free Text Med - ASA ??? [DISCONTINUED] OMEPRAZOLE (PRILOSEC ORAL) History Social History ??? Marital Status: Spouse Name: N/A Number of Children: N/A ??? Years of Education: N/A Occupational History ??? Not on file. Social History Main Topics ??? Smoking status: Never Smoker ??? Smokeless tobacco: Never Used ??? Alcohol Use: No ??? Drug Use: No ??? Sexually Active: Not on file Other Topics Concern ??? Not on file Social History Narrative ??? No narrative on file Review of Systems Objective: Physical Exam Blood pressure 126/62, pulse 59, height 154.9 cm (5' 1), weight 117.164 kg (258 lb 4.8 oz). Tender along IT band on the left, exquisite. I have made the following determinations: Knee Exam: Left Prior surgery on this joint: Yes Gait Abnormality: Antalgic Knee ROM: Extension:0 Flexion: 85 Alignment: 0-4 degrees Neutral Stability: A/P Translation <5mm Varus (lateral stability) <5mm Valgus (medial stability) <5mm Extension La degrees or less Radiographic evidence of joint damage: [0= normal; 1=minimal ; 2= some osteophytes , some narrowing ; 3= moderate osteophytes, significantnarrowing, mild deformity; 4= large osteophytes, marked narrowing, obvious deformity]: previous TKApatella not resurfaced. Patella Tracking: Normal Skin Integrity: Normal Pulses Palpable: Left PT:Yes Left DP:Yes Motor/Sensory: Distal Motor:Normal Distal Sensory: Normal Quadriceps Strength:5 I have made the following determinations: Knee Exam: Right Prior surgery on this joint: Yes Gait Abnormality: Antalgic Knee ROM: Extension:0 Flexion: 85 Alignment: 0-4 degrees Neutral Stability: A/P Translation <5mm. Varus (lateral stability) <5mm Valgus (medial stability) <5mm Extension La degrees or less Radiographic evidence of joint damage: [0= normal; 1=minimal ; 2= some osteophytes , some narrowing ; 3= moderate osteophytes, significantnarrowing, mild deformity; 4= large osteophytes, marked narrowing, obvious deformity]: Previous unresurfaced patella with TKA Patella Tracking: Normal Skin Integrity: Normal Pulses Palpable: Right PT: Yes Right DP:Yes Motor/Sensory: Distal Motor: Normal Distal Sensory: Normal Quadriceps Strength: 5 IMAGING: She has some calcification along her quad tendon R>L. No evidence of hip lesion but no focal x-rays here. Impression RADIOLOGY 1. The patient is status post bilateral [...] fracture associated with a right knee prosthesis. 3. There is 4 millimeters of medial deviation of the weight-bearing axis of the left lower extremity and 10 millimeters of lateral deviation of the weight-bearing axis of the right lower extremity. Assessment and Plan: IT Band LEFT knee Discussed the findings. Discussed her labs from [facility]. Referral to [facility] Discussed regular f/u RTC prn or we are happy to follow her shelter which would be every two years with x-ray. documented in this encounter Plan of Treatment Scheduled Referrals Name Type Priority Associated Diagnoses Orde r Schedule Referral to Physical Therapy Outpatient Referral Routine It Band Syndrome, Left Ordered: 01/16/2014 documented as of this encounter Procedures Procedure Name Priority Date/Time Associated Diagnosis Comments DIAGNOSTIC RADIOLOGY SCAN Routine 12/23/2013 DIAGNOSTIC RADIOLOGY SCAN Routine 12/23/2013 documented in this encounter Results * Scan Doc: Diagnostic Radiology (12/23/2013) Anatomical Region Laterality Modality Other Scanning Provider MEDIA MGR SCAN EXT O RDR/RSLT * Scan Doc: Diagnostic Radiology (12/23/2013) Anatomical Region Laterality Modality Other Jitendra Dean MD MEDIA MGR SCAN EXT O RDR/RSLT documented in this encounter Visit Diagnoses Diagnosis It band syndrome, left- Primary 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
--- OUTSIDE RECORDS SUMMARY | 2024-01-11 13:22 | XMS_ITS | Encounter Summary ---
[place] [address] Care Team Providers Care Aircraft Maintenance Manager Name Role Phone Dulce Hidalgo MD Primary Care Provider [phone] Encounter Details Date Type Department Care Team (Late st Contact Info) Description 10/05/2016 3:00 PM EDT [place] [address] Social History Tobacco Use Types Packs/Day Years [...] - Inhaled Oxygen Concentration - - Weight 133.8 kg (295 lb) 10/05/2016 3:08 PM EDT Height 152.4 cm (5') 10/05/2016 3:08 PM EDT Body Mass Index 57.61 10/05/2016 3:08 PM EDT documented in this encounter Progress Notes * Mayra Lehman RN - 10/05/2016 3:00 PM EDT PAT questionnaire reviewed with patient and family member while in Pre Admission testing. Pre-operative instruction booklet reviewed. Patient verbalizes a good understanding of all information reviewed. PLAN: Testing: T&S. To 3T CXR. Special medication instructions: Procedure date: 11-02 Pt states has not had problem with anesthesia. documented in this encounter Plan of Treatment Not on file documented as of this encounter Visit Diagnoses Not on filedocumented in this encounter Care Teams Aircraft Maintenance Manager Relationship Specialty Start Date End Date Dulce Hidalgo MD [facility] [address] [place] [address] PCP - General Family Medicine 09/30/16 documented as of this encounter
--- OUTSIDE RECORDS SUMMARY | 2024-01-11 13:22 | XMS_ITS | Encounter Summary ---
[place] [address] Care Team Providers Care Derrick Worker Well Service Name Role Phone Marivel Faulkner APRN Primary Care Provider + Reason for Visit * Reason Comments Follow-up Encounter Details Date Type Department Care Team (Late st Contact Info) Description 08/04/2011 3:00 PM EST Follow-Up Hematology [place] [id number] CLINIC, DR GUILLERMO Rios, Shaheed Casillas MD [facility] HEMATOLOGY/[place] [address] Breast cancer, stage 1 (Primary Dx) Discharge Disposition: Home Social History [...] Sign Reading Time Taken Comments Blood Pressure 146/70 08/04/2011 2:44 PM EST Pulse 70 08/04/2011 2:44 PM EST Temperature 36.7 ??C (98.1 ??F) 08/04/2011 2:44 PM ES T Respiratory Rate 20 08/04/2011 2:44 PM EST Oxygen Saturation 98% 08/04/2011 2:44 PM EST Inhaled Oxygen Concentration - - Weight 124.2 kg (273 lb 13 oz) 08/04/2011 2:44 P M EST Height 154 cm (5' 0.63) 08/04/2011 2:44 PM EST Body Mass Index 52.37 08/04/2011 2:44 PM EST documented in this encounter Progress Notes * Cuong Catherine - 08/04/2011 2:58 PM EST Images from the original note were not included. Subjective: Patient ID: Isaura Aguiar is a 70 y.o. female. HPI Ms Aguiar returns for her 6 month follow up. She had more hand and ankle arthralgias progressively over the course of the last year, after starting on the generic form of Arimidex. 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 She does note an increase in pain in her left leg around the knee surgery area. She states a desire to see a physical therapistabout this and has one she has seen before who she is going to contact. She is still having infrequent hot flashes which she says are fairly transient and tolerable. She does about 20min per day onthe recumbant bicycle. She has also started walking now that the weather is improving. She is taking a total of 1400U of Vitamin D3 per day. Patient Active Problem List Diagnoses ??? Osteopenia Last Dexa scan August 06, [...] anastrozole between June 2006 and June 2011. Review of Systems Constitutional: Negative for fever, chills, diaphoresis, activity change, appetite change, fatigue and unexpected weight change. HENT: Negative. Eyes: Negative. Respiratory: Negative for cough, chest tightness, shortness of breath and wheezing. Cardiovascular: Negative for chest pain, palpitations and leg swelling. Gastrointestinal: Negative for nausea, vomiting, abdominal pain, diarrhea, constipation, blood in stool and abdominal distention. Genitourinary: Negative for dysuria, urgency, frequency, hematuria, vaginal bleeding, vaginal discharge, enuresis, difficulty urinating and vaginal pain. Musculoskeletal: Positive for arthralgias (See HPI). Negative for myalgias, back pain, joint swelling and gait problem. Skin: Negative. Neurological: Negative for dizziness, tremors, seizures, syncope, weakness, light-headedness, numbness and headaches. Hematological: Negative. Psychiatric/Behavioral: Negative. Objective: Physical Exam Constitutional: She is oriented to person, place, and time. She appears well- developed and well-nourished. HENT: Head: Normocephalic and atraumatic. Mouth/Throat: Oropharynx is clear and moist. No oropharyngeal exudate. Eyes: Conjunctivae and EOM are normal. Pupils are equal, round, and reactive to light. No scleral icterus. Neck: Normal range of motion. Neck supple. Cardiovascular: Normal rate, regular rhythm and normal heart sounds. Exam reveals no gallop and no friction rub. No murmur heard. Pulmonary/Chest: Effort normal and breath sounds normal. She has no wheezes. She has no rales. She exhibits no tenderness. Abdominal: Soft. Bowel sounds are normal. Musculoskeletal: Normal range of motion. She exhibits no edema and no tenderness. Lymphadenopathy: She has no cervical adenopathy. Neurological: She is alert and oriented to person, place, and time. Skin: Skin is warm and dry. No rash noted. No erythema. No pallor. Breast Exam: bilateral mastectomies. No masses, erythema, or areas of tenderness noted. Laboratory: reviewed from 07/21/11 CA 125 = 7.7 DEXA 08/04/2011 Lumbar spine: Hip: Assessment and Plan: Ms Aguiar is a pleasant 70yo woman with a BRCA mutation, and a h/o Stage III ovarian cancer, and then a h/o Stage I breast cancer (ER+ Her2 neg) for which she had bilateral mastectomies followed by 5yrs of Arimidex. She tolerated the Arimidex fairly well and her side effect symptoms of arthralgiashave improved. She is still having some hot flashes. She currently shows no evidence of disease recurrence. Despite her bilateral mastectomy, she still has a 3-4% risk of breast cancer recurrence (chest wall, distant mets). Her DEXA scan results were reviewed with her, and she is encouraged to continue her Vitamin D3 and exercise. We will see her in follow up in October of this year, then yearly after wards. Heme-Onc Staff I spoke with and examined Ms. Aguiar, and I concur with Dr. Catherine's assessment. 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 In June 2011 she completed a five year course of anastrozole. Her arthralgias are somewhat better, but the night sweats have worsened since June. She has pain radiating up and down the right leg from the ankle to the hip. She is exercising 20 minutes a day, she recently started the Atkins diet, and she is taking 1400 units of Vitamin D daily.On exam, she has no cervical or supraclavicular adenopathy. She has no axillary adenopathy. Her chest is clear to percussion and auscultation. Cardiac exam shows a regular rate and rhythm, without murmurs or gallops. She has had bilateral mastectomies. There is no erythema or nodularity in the chest wall on either side. Her abdomen is soft and nontender. She has no hepatomegaly or right upper quadrant pain. She has non- pitting peripheral edema in both ankles, without erythema or cords. She has no pain on percussion over the spine, sternum, ribs, and hips. Her bone density today shows a 5.6% loss at the left hip, and the osteopenia at the lumbar spine is stable. Chemistries from July 21, 2011 were normal, and the CA125 is 7.7. Ms. Aguiar has completed an appropriate course of endocrine therapy for Stage I ER positive breast cancer. We can now decrease the frequency of her followups with me to once yearly, and I will see her next in October 2012. She will probably elect to have Dr. Faulkner follow her for her breast cancer after that visit. Shaheed Rios MD badger distiller operator in Hematology-Oncology documented in this encounter Plan of Treatment Not on file documented as of this encounter Visit Diagnoses Diagnosis Breast cancer, stage 1- Primary Malignant neoplasm of breast (female), unspecified site documented in this encounter Care Teams Derrick Worker Well Service Relationship Specialty Start Date End Date Marivel Faulkner APRN PCP - General 05/04/10 09/29/16 documented as of this encounter
--- OUTSIDE RECORDS SUMMARY | 2024-01-11 13:22 | XMS_ITS | Encounter Summary ---
[place] [address] Care Team Providers Care Delivery Motorcycle Driver Name Role Phone Marivel Faulkner APRN Primary Care Provider + Encounter Details Date Type Department Care Team (Late st Contact Info) Description 04/29/2013 Notes Only [place] [address] Chu Gallagher, RN Social History Tobacco Use Types Packs/Day Years Used Date Smoking Tobacco: Never Smokeless Tobacco: Never Alcohol Use Standard Drinks/Week Comments No 0 (1 standard drink = 0.6 oz pur e alcohol) Sex and Gender Information Value Date Recorded Sex Assigned at Not on file Gender Identity Not on file Sexual Orientation Not on file documented as of this encounter Progress Notes * Chu Gallagher RN - 04/29/2013 3:31 PM EST [facility] Surgery Follow Up Note Range of motion of surgical arm complete Lymphedema present No Cosmesis-surgeon reported Cosmesis-patient reported Local or regional recurrence No Contralateral cancer present No Distant recurrence present No Date of last follow up 11/06/2012 CHU GALLAGHER RN 04/29/2013 documented in this encounter Plan of Treatment Not on file documented as of this encounter Visit Diagnoses Not on filedocumented in this encounter Care Teams Delivery Motorcycle Driver Relationship Specialty Start Date End Date Marivel Faulkner APRN PCP - General 05/04/10 09/29/16 documented as of this encounter
--- OUTSIDE RECORDS SUMMARY | 2024-01-11 13:22 | XMS_ITS | Encounter Summary ---
[place] [address] Care Team Providers Care Manager Rail Name Role Phone Dulce Hidalgo MD Primary Care Provider [phone] Reason for Referral * Diagnostic Test (Routine) - Closed Specialty Diagnoses / Procedures Referred By Contac t Referred To Contact Radiology Diagnoses Metastatic urothelial carcinoma Procedures IR Mediport Placement / Exchange Danny Gordon MD [facility] [address] [place] [address] [place] [address] Referral ID Status Reason Start Date Expiration Date V isits Requested Visits Authorized [id number] Closed Specialty Service Requested 12/06/2016 12/06/2017 1 1 * Diagnostic Test (Routine) - Closed Specialty Diagnoses / Procedures Referred By Contac t Referred To Contact Radiology Diagnoses Metastatic urothelial carcinoma Procedures PET CT Standard Skull Base to Mid-Thigh Danny Gorodn MD [facility] [address] [place] [address] [place] [address] Referral ID Status Reason Start Date Expiration Date V isits Requested Visits Authorized [id number] Closed Specialty Service Requested 12/06/2016 12/06/2017 1 1 Reason for Visit * Consultation (Routine) - Closed Specialty Diagnoses / Procedures Referred By Contac t Referred To Contact Hematology and Oncology Diagnoses Metastatic urothelial carcinoma Yara Llamas MD [facility] [place] [address] Stj Hem Onc Office [address] [place] [phone] Referral ID Status Reason Start Date Expiration Date V isits Requested Visits Authorized [id number] Closed Consult, Test & Treat 11/21/2016 11/21/2017 1 1 Encounter Details Date Type Department Care Team (Late st Contact Info) Description 12/06/2016 4:00 PM EDT Office Visit Hematology/Oncology at [address] [phone] 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; Metastatic urothelial carcinoma Social History Tobacco Use [...] Sign Reading Time Taken Comments Blood Pressure 107/51 12/06/2016 4:06 PM EDT Pulse 60 12/06/2016 4:06 PM EDT Temperature 36.8 ??C (98.2 ??F) 12/06/2016 4:06 PM ED T Respiratory Rate 16 12/06/2016 4:06 PM EDT Oxygen Saturation 100% 12/06/2016 4:06 PM EDT Inhaled Oxygen Concentration - - Weight 132.9 kg (293 lb) 12/06/2016 4:06 PM EDT Height 156 cm (5' 1.42) 12/06/2016 4:06 PM EDT Body Mass Index 54.61 12/06/2016 4:06 PM EDT documented in this encounter Progress Notes * Sherly Herrera RN - 12/06/2016 4:00 PM EDT MEDICAL ONCOLOGY INITIAL NURSING ASSESSMENT ADVANCE DIRECTIVES: In EDH [ x ] Has documents [ ] Will bring in [ ] IF NO: Advance Directive pamphlet provided : Referral to Care Management : PRESENTING SYSTEMS and PATHOLOGY: pain on right side thought it was hip saw PCP, had CT scan pickedup on there REVIEW OF SYSTEMS: see Heidi's note Prior Radiotherapy: no[x ] Yes[ ]Site Date Facility Prior Chemotherapy: no[ ] Yes[ x ] Drug: Oncologist- 22 years chemo for ovarian cancer, 2006 breat cancer double mastectomy took arimidex LastTreatment: NO: YES: Claustrophobia or requires sedation for MRIs x Allergy to CT or MRI contrast agent or iodine or shellfish x Diabetic and on metformin x Metal in body, implanted device, worked with metal, body piercings,braces Both knees replaced Dentures or hearing device No hearing devices perment partials Pacemaker x Difficulty breathing while lying flat x Kidney problems/creatinine Right kidney taken out Balance difficulty: [ x ]no [ ]yes At risk for fall: [ x ] no [ ] yes If yes, actions implemented to prevent fall. Patient/family instructed to avoid independent ambulation. Use wheelchair and ask for assistance of staff while in the clinic. ADL [ x ] no limits [ ] needs dressing assistance [ ] needs meal assistance Assistive device:[ x ]none [ ]cane [ ]walker [ ]wheelchair [ ]other: explain PAIN ASSESSMENT: [0 ] out of 10 Location: Description: [ ] Dull [ ] Sharp [ ] Burning [ ] Throbbing [ ] Radiating [ ] Continuous [ ]Intermittent Aggravating Factors: [ ] Movement [ ] Position [ ]Immobility [ ]Other Alleviating Factors: [ ]Medication [ ] Positioning [ ] Other Current Pain Management Plan: [ ]Satisfied [ ] Not satisfied SOCIAL ASSESSMENT: See EDH social assessment information entered. Support Systems: of 54 years main support, large family full of supports transportation plan: [ x]private vehicle [ ] RCT needs Social Work referral [ ] Unknown at this time needs Social Work referral Barriers to treatment: none Referrals/Interventions: LEARNING STYLE: Visual and verbal, wants written material and verbal discussion. TEACHING: __ NCI ???Chemotherapy and You?? and folder given __ Specific chemotherapy literature provided and reviewed with patient * Danny Gordon MD - 12/06/2016 4:00 PM EDT Diagnosis: Metastatic urothelial carcinoma Subjective:I feel [...] is here for discussion of adjuvant chemotherapy. PMH: Ovarian cancer in 1994 status post cisplatin [...] June 2006 and June 2011. Social History: Nonsmoker, does not drink alcohol, she used to work in [place], retired 2002, she has 3 children. Family History: Brother had lung cancer, father from prostate cancer, her son and sister have BRCA2 mutation Allergies: Allergies Allergen Reactions ??? Glucosamine-Chondroitn Sulf.Na Nausea Only Intense cramping too ??? Tegaderm [Transparent Dressings] Rash ??? Sulfa (Sulfonamide Antibiotics) Other (See Comments) liver damage Medications: Your Medications These changes are accurate as of: 12/06/16 11:59 PM. If you have any questions, ask your nurse or doctor. Notice Some of the medications listed here do not show instructions, such as how often to take the medication. Ask your doctor or nurse how to use these medications. Specifically ask about these and similar medications: - atenolol (TENORMIN) 50 mg tablet - simvastatin (ZOCOR) 10 mg tablet - ACETAMINOPHEN (TYLENOL ORAL) New Medications Dose Details ondansetron 8 mg Tab Commonly known as: ZOFRAN Take 1 tablet by mouth every 8 hours as needed for Nausea. Started by: Danny Gordon MD 8 mg Quantity: 20 tablet Refills: 3 prochlorperazine 10 mg Tab Commonly known as: COMPAZINE Take 1 tablet by mouth every 6 hours as needed for Nausea. Started by: Danny Gordon MD 10 mg Quantity: 30 tablet Refills: 3 Continued medications, unchanged Dose Details aspirin 81 [...] by mouth daily. 25 mg Refills: 0 simvastatin 10 mg Tab Commonly known as: ZOCOR ?nk?wn!?? Refills: 0 TYLENOL ORAL ?nk?wn!?? Refills: 0 STOPPED Medications amoxicillin 500 mg Cap Commonly known as: AMOXIL Stopped by: Danny Gordon MD ciprofloxacin 500 mg Tab Commonly known as: CIPRO Stopped by: Danny Gordon MD CITRACAL + D ORAL Stopped by: Danny Gordon MD krill oil 500 mg Cap Stopped by: Danny Gordon MD Review of [...] axillary nodes normal Neurologic: Normal Vitals BP 107/51 (Patient Position: Sitting) Pulse 60 Temp 36.8 ??C (98.2 ??F) (Oral) Resp [...] for ISAURA AGUIAR ( ) as of 12/07/2016 11:22 Ref. Range 11/05/2016 02:10 WBC Latest Ref Range: 4.0 - 9.5 x10(3)/mcL 7.0 RBC Latest Ref Range: 4.00 - 5.21 x10(6)/mcL 3.63 (L) Hemoglobin Latest Ref Range: 11.7 - 15.5 gm/dL 10.7 (L) Hematocrit Latest Ref Range: 35.7 - 45.8 % 32.3 (L) MCV Latest Ref Range: 82.6 - 94.4 fL 89.0 MCH Latest Ref Range: 27.1 - 32.0 pg 29.5 MCHC Latest Ref Range: 31.7 - 35.0 gm/dL 33.1 RDWSD Latest Ref Range: 37.0 - 46.0 fL 46.1 (H) RDWCV Latest Ref Range: 11.5 - 14.1 % 14.2 (H) Platelets Latest Ref Range: 145 - 357 x10(3)/mcL 174 MPV Latest Ref Range: 7.6 - 12.9 fL 11.4 nRBC % Auto Latest Units: % 0.0 nRBC Abs Auto Latest Ref Range: 0.000 - 0.000 x10(3)/mcL 0.000 Neutr Abs (ANC) Latest Ref Range: 1.70 - 6.10 x10(3)/mcL 4.80 Neutrophils % Latest Units: % 68.2 Immature Gran % Latest Units: % 0.30 Lymphocytes % Latest Units: % 20.0 Monocytes % Latest Units: % 8.4 Eosinophils % Latest Units: % 2.7 Basophils % Latest Units: % 0.4 [place] Gran Abs Latest Ref Range: 0.00 - 0.04 x10(3)/mcL 0.02 Lymphocytes Abs Latest Ref Range: 0.9 - 3.2 x10(3)/mcL 1.4 Monocyte Abs Latest Ref Range: 0.3 - 0.9 x10(3)/mcL 0.6 Eosinophils Abs Latest Ref Range: 0.0 - 0.4 x10(3)/mcL 0.2 Basophils Abs Latest Ref Range: 0.0 - 0.1 x10(3)/mcL 0.0 Sodium Latest Ref Range: 135 - 145 mmol/L 139 Potassium Latest Ref Range: 3.5 - 5.0 mmol/L 3.3 (L) Chloride Latest Ref Range: 98 - 107 mmol/L 104 CO2 Latest Ref Range: 22 - 31 mmol/L 23 Anion Gap Latest Ref Range: 5 - 15 mmol/L 12 BUN Latest Ref Range: 8 - 18 mg/dL 12 Creatinine Latest Ref Range: 0.70 - 1.20 mg/dL 1.16 Estimated GFR Latest Ref Range: >=60 46 (L) Glucose Lvl Latest Ref Range: 65 - 199 mg/dL 101 Calcium Latest Ref Range: 8.5 - 10.5 mg/dL 8.1 (L) Imagin09/22/16 CT AP: Left kidney is normal. Right [...] have been reported. The Advanced Bladder Cancer [place]-Analysis Collaboration obtained individual patient data from 491 [...] adjuvant chemotherapy. Informed verbal consent was obtained. I would like to obtain her 24 hours urine for measurements of creatinine clearance. If patient's creatinine clearance above 60 mL/min I will use dose of cisplatin 70 mg per [place] squared and gemcitabine 1000 mg per [place] squared days 1 and 8. If Measured creatinine clearance between 40 and 60 mL cycle I will use split dose of cisplatin 35 mg per [place] squared days 1 and 8. We'll obtain restaging PET scan as well. We'll arrange for Mediport placement to get reliable access. Plan: 1. PET scan 2. Mediport placement 3. CBC, CMP, 24-hour urine for creatinine clearance 4. Next visit in 2 weeks with first cycle of chemotherapy Mrs. Lara is accomponied by her today. The plan was discussed with the patient in details.All questions were answered to patient's satisfaction. I would like to thank Dr. Hidalgo and Dr. Do for allowing me to participate in the care of this wonderful lady. documented in this encounter Plan of Treatment Not on file documented as of this encounter Procedures Procedure Name Priority Date/Time Associated Diagnosis Comments LAB SCAN 12/08/2016 12:00 AM EDT LAB SCAN 12/08/2016 12:00 AM EDT documented in this encounter Results * PET CT Standard Skull Base to Mid-Thigh (12/21/2016 12:45 PM EDT) Anatomical Region Laterality Modality Nuclear Medicine Impressions 12/21/2016 5:18 PM EDT No evidence of local tumor recurrence, regional armen or metastatic disease. Thank you for referring this patient to [facility]. I have personally reviewed the image(s) and the residents interpretation and agree with the findings, Elmo Abel at 12/21/2016 5:18 PM Narrative 12/21/2016 5:18 PM EDT EXAMINATION: PET CT STANDARD SKULL BASE TO MID-THIGH CLINICAL HISTORY: Staging of metastatic urothelial carcinoma TECHNIQUE: Following IV injection of 36-hcwrqi-4-deoxyglucose (FDG) a standard uptake of approximately 60 [...] urothelial carcinoma TECHNIQUE: Following IV injection of 25-uoygjz-7-deoxyglucose (FDG) astandard uptake of approximately 60 minutes, [...] Thank you for referring this patient to [facility]. I have personally reviewed the image(s) and the residents interpretationand agree with the findings, Elmo Vaughantzer at 12/21/2016 5:18 PM Danny Gordon MD IMG PET ORDERABLES * IR Mediport Placement / Exchange (12/21/2016 [...] Device Information: Vaccess CT (POWER) Port REF [id number] LOT [id number] Medications: Lidocaine 1% <10 mL SQ, Bupivacaine-Epinephrine [...] meets criteria. 2) Port ready for use. Surgical Corsetier(s): Associate Provider: Angel Lujan APRN. I was present during the intraservice time as documented by the IR nurse. Attending: Dr. Tejeda 12/21/2016 Danny Gordon MD [facility] IR ORDERABLES * SCAN DOC: LAB (12/08/2016 12:00 AM EDT) Narrative 12/08/2016 12:00 AM EDT Ordered by an unspecified provider. Scanning Provider MEDIA MGR SCAN EXT O RDR/RSLT * SCAN DOC: LAB (12/08/2016 12:00 AM EDT) Narrative 12/08/2016 12:00 AM EDT Ordered by an unspecified provider. 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
--- OUTSIDE RECORDS SUMMARY | 2024-01-11 13:22 | XMS_ITS | Encounter Summary ---
[place] [address] Care Team Providers Care Broadloom Weaver Name Role Phone Marivel Faulkner APRN Primary Care Provider + Encounter Details Date Type Department Care Team (Late st Contact Info) Description 11/30/2013 Orders [place] [address] Gavin Bianchi MD [facility] [place] [address] Social History Tobacco Use Types Packs/Day Years [...] Diagnosis Comments FILM LIBRARY STORAGE ONLY DX KNEE Routine 11/30/2013 3:57 PM EDT documented in this encounter Results * Film Library- Storage only DX Knee (11/30/2013 3:57 PM EDT) Anatomical Region Laterality Modality Other 11/30/2013 3:57 PM EDT Narrative 01/07/2014 3:57 PM EDT This is a Non-reportable exam Procedure Note 01/07/2014 This is a Non-reportable exam Gavin Bianchi MD [facility] FILM LIBRARY ORD ERABLES documented in this encounter Visit Diagnoses Not on filedocumented in this encounter Care Teams Broadloom Weaver Relationship Specialty Start Date End Date Marivel Faulkner, NANCI PCP - General 05/04/10 09/29/16 documented as of this encounter
--- OUTSIDE RECORDS SUMMARY | 2024-01-11 13:22 | XMS_ITS | Encounter Summary ---
Author Organization [facility] Address [facility] [place] [address] Care Team Providers Care Watch Repair Person Name Role Phone Dulce Hidalgo MD Primary Care Provider [phone] Encounter Details Date Type Department Care Team (Latest Contact Info) Description 11/21/2016 8:23 AM EDT - 11/21/2016 11:59 PM EDT Hospital Encounter XRay at [address] [place] [id number] Ariel Do MD [facility] [place] [address] Ureteral cancer, right Discharge Disposition: Home Social History Tobacco Use [...] tablets every 6 hrs as needed* 08/05/2010 ciprofloxacin (CIPRO) 500 mg Tablet Take 500 mg by mouth 2 times daily. Reported on 12/06/2016 12/06/2016 krill oil 500 mg Cap Take 1 [...] Name Priority Date/Time Associated Diagnosis Comments XR FLUORO CYSTOGRAM Routine 11/21/2016 9 :55 AM EDT Ureteral cancer, right documented in this encounter Results * XR Fluoro Cystogram (11/21/2016 9:55 AM EDT) Anatomical Region Laterality Modality N/A Radio Fluoroscop y Impressions 11/21/2016 11:46 AM EDT No bladder leak. Results discussed with Dr. Ariel Do by Dr. Kohler. I have personally reviewed the image(s) and the residents interpretation and agree with the findings, Eunice Kohler MD at 11/21/2016 11:46 AM Narrative 11/21/2016 11:46 AM EDT EXAMINATION: XR FLUORO CYSTOGRAM CLINICAL HISTORY: Evaluate for leak s/p nephroureterectomy 02 Nov 2016 TECHNIQUE: Front Window Cashier radiograph of the pelvis was performed prior the study. Cystogram performed under direct digital fluoroscopy. Approximately 150 cc of 50% Omnipaque 350 and 50% sterile water was slowly infused by gravity through an indwelling urinary bladder catheter, at which point the patient reported discomfort secondary to distention and the filling was then stopped. Supine, LPO, and RPO views of the bladder were obtained. Post drainage radiograph of the pelvis was also performed. FLUOROSCOPY TIME: 1.37 minutes COMPARISON: None FINDINGS: Front Window Cashier view: Follicular balloon projects over the expected location of the urinary bladder. Surgical clips are injected over in the right lower quadrant and left hemisacrum. There is stool throughout the colon included in the imaging pizje-[id number] down to the level of the rectum. No osteolytic or osteoblastic lesions. Filling images: The bladder distends well. Postoperative changes to the right bladder wall. Otherwise, the bladder wall is smooth. No vesicoureteral reflux or extravasation of intravesical contrast. Post void radiograph: There is a small amount of residual intravesical contrast on the right bladder wall. Otherwise, there is near complete emptying of the bladder. Intravesical location of urinary catheter balloon is again noted. Procedure Note Eunice Kohler MD - 11/21/2016 EXAMINATION: XR FLUORO CYSTOGRAM CLINICAL HISTORY: Evaluate for leak s/p nephroureterectomy 02 Nov 2016 TECHNIQUE: Front Window Cashier radiograph of the pelvis was performed prior the study. Cystogram performed under direct digital fluoroscopy. Approximately 150 ccof 50% Omnipaque 350 and 50% sterile water was slowly infused by gravitythrough an indwelling urinary bladder catheter, at which point the patient reported discomfort secondary to distention and the filling was then stopped.Supine, LPO, and RPO views of the bladder were obtained. Post drainage radiographof the pelvis was also performed. FLUOROSCOPY TIME: 1.37 minutes COMPARISON: None FINDINGS: Front Window Cashier view: Follicular balloon projects over the expected location ofthe urinary bladder. Surgical clips are injected over in the right lowerquadrant and left hemisacrum. There is stool throughout the colon included in theimaging [id number] down to the level of the rectum. No osteolytic orosteoblastic lesions. Filling images: The bladder distends well. Postoperative changes to theright bladder wall. Otherwise, the bladder wall is smooth. No vesicoureteralreflux or extravasation of intravesical contrast. Post void radiograph: There is a small amount of residual intravesicalcontrast on the right bladder wall. Otherwise, there is near complete emptying ofthe bladder. Intravesical location of urinary catheter balloon is againnoted. IMPRESSION No bladder leak. Results discussed with Dr. Ariel Do by Dr. Kohler. I have personally reviewed the image(s) and the residents interpretationand agree with the findings, Eunice Kohler MD at 11/21/2016 11:46 AM Ariel Do MD IMG FLUORO ORDERABLE S documented in this encounter Visit Diagnoses Diagnosis Ureteral cancer, right documented in this encounter Administered Medications Inactive Administered Medications - up to 3 most recent administrations Medication Order MAR Action Action Date Dose Rate Site iohexol (OMNIPAQUE) 350 mg/mL solution 52,500 mg 52,500 mg (150 mL), Other, ONCE, 1 dose, On 11/21/16 at 1030, Warning Vesicant/Irritant Medication , Routine Given 11/21/2016 10:30 AM EDT 52,500 mg documented in this encounter Care Teams Watch Repair Person Relationship Specialty Start Date End Date Dulce Hidalgo MD [address] [place] [address] PCP - General Family Medicine 09/30/16 documented as of this encounter
--- OUTSIDE RECORDS SUMMARY | 2024-01-11 13:22 | XMS_ITS | Encounter Summary ---
[place] [address] Care Team Providers Care Banjo Repairer Name Role Phone Dulce Hidalgo MD Primary Care Provider [phone] Encounter Details Date Type Department Care Team (Latest Contact Info) Description 11/21/2016 10:20 AM EDT Clinical [place] [phone] Ureteral cancer, unspecified laterality Social History Tobacco Use [...] Pressure - - Pulse - - Temperature 37 ??C (98.6 ??F) 11/21/2016 10:40 AM EDT Respiratory Rate - - Oxygen Saturation - - Inhaled Oxygen Concentration - - Weight - - Height - - Body Mass Index - - documented in this encounter Progress Notes * Nuvia Kerns LPN - 11/21/2016 10:20 AM EDT Patient presents today for a voiding trial and catheter removal s/p total nephrectomy due to ureteral cancer. Mrs. Aguiar states she has another day, or two, of her Ciprofloxacin. No additional antibiotic given. All incisions well approximated. No signs of infection noted. Procedure: 120ml normal saline instilled via ramos catheter. Balloon deflated. Ramos gently removed. Patient voided 120ml's. FOS good. Good control. All instructions and literature reviewed with patient. Patient verbalized understanding of instructions. Supplies given: N/A The patient was discharged in good condition. Advised to call the office with any questions/ concerns. NUVIA KERNS LPN documented in this encounter Plan of Treatment Not on file documented as of this encounter Visit Diagnoses Diagnosis Ureteral cancer, unspecified laterality documented in this encounter Care Teams Banjo Repairer Relationship Specialty Start Date End Date Dulce Hidalgo MD [address] [place] [address] PCP - General Family Medicine 09/30/16 documented as of this encounter
--- OUTSIDE RECORDS SUMMARY | 2024-01-11 13:22 | XMS_ITS | Encounter Summary ---
Author Organization [facility] Address [facility] [place] [address] Care Team Providers Care Briar Wood Sorter Name Role Phone Marivel Faulkner APRN Primary Care Provider + Encounter Details Date Type Department Care Team (Late st Contact Info) Description 08/04/2011 1:26 PM EST - 08/04/2011 11:59 PM EST Hospital Encounter XRay [place] [address] [place] [address] Osteopenia Social History Tobacco Use Types Packs/Day Years [...] Sig Dispensed Refills Start Date End Date ACETAMINOPHEN (TYLENOL ORAL) Take 500 mg by mouth every 6 hours. *taking 2 tablets every 6 hrs as needed* 08/05/2010 cholecalciferol, Vitamin D3, 400 unit tablet Take 1,000 Units by mouth daily. 01/16/2014 CIS Free Text Med - ASA 08/05/2010 0812/2013 atenolol (TENORMIN) 50 mg tablet Take 50 mg by mouth daily. 08/05/2010 10/11/2023 simvastatin (ZOCOR) 10 mg tablet Take 10 mg by mouth daily. 08/05/2010 10/11/2023 OMEPRAZOLE (PRILOSEC ORAL) 08/05/2010 01/16/2014 documented as of this encounter Plan of Treatment Not on file documented as of this encounter Procedures Procedure Name Priority Date/Time Associated Diagnosis Comments DXA CENTRAL SPINE, HIP, AND/OR WHOLE BODY (GENERIC) Routine 08/04/2011 2:36 PM EST Disorder of bone and cartilage, unspecified documented in this encounter Results * DEXA CENTRAL-SPINE, HIP, AND/OR WHOLE BODY [...] have access to CIS, please contact Radiology Remote Encoding Operations Supervisor at [phone] Monday thru Monday 8am-4pm. Procedure Note Kathe [...] have access to CIS, please contact Radiology Remote Encoding Operations Supervisor at [phone] Monday thru Monday 8am-4pm. Shaheed Rios MD [facility] DEXA ORDERABLES documented in this encounter Visit Diagnoses Diagnosis Osteopenia Disorder of bone and cartilage, unspecified documented in this encounter Care Teams Briar Wood Sorter Relationship Specialty Start Date End Date Marivel Faulkner, LOADER SEMICONDUCTOR DIES PCP - General 05/04/10 09/29/16 documented as of this encounter
--- OUTSIDE RECORDS SUMMARY | 2024-01-11 13:22 | XMS_ITS | Encounter Summary ---
[place] [address] Care Team Providers Care Signal Maintenance Technician Name Role Phone Dulce Hidalgo MD Primary Care Provider [phone] Encounter Details Date Type Department Care Team (Latest Contact Info) Description 10/05/2016 3:20 PM EDT Laboratory [place] [phone] Hydronephrosis, unspecified hydronephrosis type; Bladder mass; Hematuria Social History Tobacco Use Types Packs/Day Years [...] Procedure Name Priority Date/Time Associated Diagnosis Comments ABORH RECHECK STATUS Routine 10/05/2016 4:05 PM EDT TYPE AND SCREEN, SDP (FUTURE SURGERY, [facility] [place] ONLY) Routine 10/05/2016 4:05 PM EDT Hydronephrosis, unspecified hydronephrosis type Bladder mass Hematuria ABO/RH TYPING Routine 10/05/2016 4:05 PM EDT Hydronephrosis, unspecified hydronephrosis type Bladder mass Hematuria ANTIBODY SCREEN Routine 10/05/2016 4:05 PM EDT Hydronephrosis, unspecified hydronephrosis type Bladder mass Hematuria documented in this encounter Results * ABORH Recheck Status (10/05/2016 4:05 PM EDT) ABORH Type Recheck Completed [facility] Blood specimen (specimen) 10/05/2016 4:05 PM EDT 10/05/2016 4:05 PM EDT Narrative Resulting Agency Comment Spec In Lab Ariel Do MD BLOOD BANK LAB ORDER JIM Performing Organization Address City/[facility]/ZIP Co de Phone Number [facility] [place] [address] * Antibody screen (10/05/2016 4:05 PM EDT) Ab Screen Interp Negative [facility] Expires at [id number] on: 11/05/2016 [facility] Blood specimen (specimen) 10/05/2016 4:05 PM EDT 10/05/2016 4:05 PM EDT Narrative Resulting Agency Comment Spec In Lab Ariel Do MD BLOOD BANK LAB ORDER JIM [facility] [place] [address] * ABO/Rh Typing (10/05/2016 4:05 PM EDT) ABORH Type O Pos [facility] Blood specimen (specimen) 10/05/2016 4:05 PM EDT 10/05/2016 4:05 PM EDT Narrative Resulting Agency Comment Spec In Lab Ariel Do MD BLOOD BANK LAB ORDER JIM [facility] [place] [address] documented in this encounter Visit Diagnoses Diagnosis Hydronephrosis, unspecified hydronephrosis type Bladder mass Other specified disorders of bladder Hematuria Hematuria, unspecified documented in this encounter Care Teams Signal Maintenance Technician Relationship Specialty Start Date End Date Dulce Hidalgo MD [address] [place] [address] PCP - General Family Medicine 09/30/16 documented as of this encounter
--- OUTSIDE RECORDS SUMMARY | 2024-01-11 13:22 | XMS_ITS | Encounter Summary ---
Author Organization [facility] [place] [address] Care Team Providers Care Commercial Front Load Operator Name Role Phone Marivel Faulkner APRN Primary Care Provider + Encounter Details Date Type Department Care Team (Latest Contact Info) Description 09/05/2013 - 09/05/2013 11:59 PM EDT Hospital Encounter [place] [phone] Ariel Do MD [facility] [place] [address] Pain Discharge Disposition: Home Social History Tobacco [...] Take 81 mg by mouth daily. 01/06/2020 cholecalciferol, Vitamin D3, 400 unit tablet Take 1,000 Units by mouth daily. 01/16/2014 [facility] Free Text Med - ASA 08/05/2010 08/0 12/2013 atenolol (TENORMIN) 50 mg tablet Take 50 mg by mouth daily. 08/05/2010 10/11/2023 simvastatin (ZOCOR) 10 mg tablet Take 10 mg by mouth daily. 08/05/2010 10/11/2023 OMEPRAZOLE (PRILOSEC ORAL) 08/05/2010 01/16/2014 documented as of this encounter Plan of Treatment Not on file documented as of this encounter Procedures Procedure Name Priority Date/Time Associated Diagnosis Comments FILM LIBRARY STORAGE ONLY ULTRASOUND STUDY Routine 09/05/2013 12:00 AM EDT Pain documented in this encounter Results * Film Library- Storage Only Ultrasound Study (09/05/2013 12:00 AM EDT) Narrative [facility] - 10/03/2016 9:19 AM EDT This exam is for storage only and is auto-finalizing. Ariel Do MD [facility] FILM LIBRARY ORD ERABLES [place], [place] documented in this encounter Visit Diagnoses Diagnosis Pain Generalized pain documented in this encounter Care Teams Commercial Front Load Operator Relationship Specialty Start Date End Date Marivel Faulkner APRN PCP - General 05/04/10 09/29/16 documented as of this encounter
--- OUTSIDE RECORDS SUMMARY | 2024-01-11 13:22 | XMS_ITS | Encounter Summary ---
Author Organization [facility] [place] [address] Care Team Providers Care Biblical Languages Professor Name Role Phone Dulce Hidalgo MD Primary Care Provider [phone] Reason for Visit * Auth/Cert Specialty Diagnoses [...] Department Care Team (Latest Contact Info) Description 11/02/2016 11:19 AM EDT - 11/06/2016 11:29 AM EDT Hospital Encounter [address] [place] [id number] Yaritza Epps MD [facility] [place] [address] Ureteral mass; Ureteral cancer, right Discharge Disposition: Home with VNA Social History [...] Sign Reading Time Taken Comments Blood Pressure 166/75 11/06/2016 8:01 AM EDT Pulse 68 11/06/2016 8:01 AM EDT Temperature 36.7 ??C (98.1 ??F) 11/06/2016 8:01 AM ED T Respiratory Rate 18 11/06/2016 8:01 AM EDT Oxygen Saturation 97% 11/06/2016 8:01 AM EDT Inhaled Oxygen Concentration - - Weight 131.5 kg (290 lb) 11/02/2016 12:16 PM EDT Height 152.4 cm (5') 11/02/2016 12:16 PM EDT Body Mass Index 56.64 11/02/2016 12:16 PM EDT documented in this encounter Discharge Summaries * Gilbert Mares MD - 11/06/2016 10:11 AM EDT Discharge Summary Patient Name: Isaura Aguiar Patient Age: 76 y.o. Language: Divehi Race: White Ethnicity: Not nor Admit date: 11/02/2016 Discharge date: 11/06/2016 Attending Physician: Yaritza Epps MD Discharge Diagnoses (Hospital Problems) and Secondary Diagnoses (Chronic Problems): Active Hospital Problems Diagnosis ??? Ureteral cancer Resolved Hospital Problems Diagnosis Date Resolved No resolved problems to display. Active Non-Hospital Problems Diagnosis ??? Renal mass ??? 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 IT band syndrome ??? SK (seborrheic keratosis) ??? AK (actinic keratosis) ??? Osteopenia ??? BRCA2 positive ??? Benign essential tremor ??? Hypertension ??? Stage III Ovarian cancer ??? Breast cancer, stage 1 Operations/Major Procedures: Procedure(s): @LAPAROSCOPY TOTAL NEPHROURETERECTOMY, ROBOTICS ASSIST (WRVU 25.36) MODIFIER ROBOT,DAVINCI XI LAPAROSCOPIC, EXTENSIVE LYSIS ADHESIONS (WRVU *) 11/02/2016 - 11/03/2016 History of Presentation (from Dr. Epps's note 10/05/16): Isaura Aguiar is a 75 y.o. female who is referred for evaluation of right flank pain and hematuria. The patient has not felt herself for about a month. She has had right flank pain radiating around to the front. Varies sharp pain to dull ache (4/10). Pain is stable. She feels she needs to void all the time. She has had hematuria on 1 day ~ 2 weeks ago. ?? Currently the patient has some irritative symptoms with minimal frequency and nocturia x 2. The urinary stream is OK and the bladder is emptied completely. Appetite is poor. Weight is down 7 lbs. There is no bone pain. Cystoscopy 10/05/2016 Large tumor emerging and distending RUO appears Ta High grade. MELY normal. No other bladder tumors Hospital Course: Patient was admitted electively to [facility] [place] via the same day surgery program and underwent the above procedure. She tolerated surgery well and was tranferred from the PACU to the general floor in good condition a few hours after surgery. Patient's hospital course was uncomplicated. She remained afebrile, with stable vital signs throughout her hospital stay. Today, on POD# 4 she has met all criteria for discharge home: her pain is well controlled with medications by mouth, she is tolerating a regular diet, and is up and ambulating without complications. Ramos catheter is draining to gravity and will remain in place until cystogram in 14 d. She has been deemed safe for discharge. RTC 14 d follow-up appointment and cystogram. Vital Signs at Discharge: Weight: Wt Readings from Last 1 Encounters: 11/02/16 (!) 131.5 kg (290 lb) Height: Ht Readings from Last 1 Encounters: 11/02/16 152.4 cm (5') BMI: Body mass index is 56.64 kg/(m^2). Last value Range last 24 hrs Temperature Temp: 36.7 ??C (98.1 ??F) Temp: [36.6 ??C (97.9 ??F)-36.8 ??C (98.2 ??F)] Heart Rate Heart Rate: 68 Heart Rate: [66-68] Blood Pressure BP: 166/75 BP: (117-166)/(49-75) Respiratory Rate Resp: 18 Resp: [14-20] SpO2 SpO2: 97 % SpO2: [95 %-98 %] Exam at Discharge: General: NAD CV: RRR Pulm: CTAB Abd: obese, soft, minimally tender, nondistended Incision: c/d/i Ramos draining clear urine Ext: warm, well perfused Functional and Cognitive Status: Ambulating and cognitively intact. Important Studies and Lab Data: Lab Results Component Value Date WBC 7.0 11/05/2016 RBC 3.63 (L) 11/05/2016 HGB 10.7 (L) 11/05/2016 HCT 32.3 (L) 11/05/2016 MCV 89.0 11/05/2016 MCH 29.5 11/05/2016 MCHC 33.1 11/05/2016 PLATELET 174 11/05/2016 RDWCV 14.2 (H) 11/05/2016 Lab Results Component Value Date NA 139 11/05/2016 K 3.3 (L) 11/05/2016 CL 104 11/05/2016 CO2 23 11/05/2016 BUN 12 11/05/2016 CREATININE 1.16 11/05/2016 GLUCOSE 101 11/05/2016 CALCIUM 8.1 (L) 11/05/2016 Pending Studies and Lab Data: Surgical pathology will be discussed by Dr. Epps when available. Discharge Conditions/Prognosis: Stable Discharge to: Home with VNA Updated Allergies/ADRs: Allergies Allergen Reactions ??? Glucosamine-Chondroitn Sulf.Na Nausea Only Intense cramping too ??? Tegaderm [Transparent Dressings] Rash ??? Sulfa (Sulfonamide Antibiotics) Other (See Comments) liver damage Immunizations Given this Hospitalization: Immunization History Administered Date(s) Administered ??? Influenza Vaccine, Unspecified Formulation 04/06/2016 ??? Influenza Vaccine, Whole 02/10/2006 Discharge Medications: Your Medications Notice Some of the medications listed here do not show instructions, such as how often to take the medication. Ask your doctor or nurse how to use these medications. Specifically ask about these and similar medications: - atenolol (TENORMIN) 50 mg tablet - CALCIUM CITRATE/VITAMIN D3 (CITRACAL + D ORAL) - simvastatin (ZOCOR) 10 mg tablet - ACETAMINOPHEN (TYLENOL ORAL) Continued medications, unchanged Dose Details amoxicillin 500 mg Cap Commonly known as: AMOXIL Take 2,000 mg by mouth as needed. Reported on 10/05/2016 2000 mg Refills: 0 aspirin 81 mg Tbec Take 81 mg by mouth daily. 81 mg Refills: 0 atenolol 50 mg Tab Commonly known as: TENORMIN ?nk?wn!?? Refills: 0 calcium-vitamin D3 600 mg(1,500mg) -400 unit Tab Take 1 tablet by mouth daily. 1 tablet Refills: 0 CITRACAL + D ORAL ?nk?wn!?? Refills: 0 hydroCHLOROthiazide 25 mg Tab Commonly known as: HYDRODIURIL Take 25 mg by mouth daily. 25 mg Refills: 0 krill oil 500 mg Cap Take 1 capsule by mouth daily. 1 capsule Refills: 0 simvastatin 10 mg Tab Commonly known as: ZOCOR ?nk?wn!?? Refills: 0 TYLENOL ORAL ?nk?wn!?? Refills: 0 Smoking Status at Discharge: History Smoking Status ??? Never Smoker Smokeless Tobacco ??? Never Used Instructions Given to Patient at Discharge: Patient Instructions UROLOGY DISCHARGE INSTRUCTIONS Call your doctor for: ??? fevers greater than 100.5 ??? severe nausea or vomiting ??? increasing pain not controlled by pain medications ??? increasing redness or drainage from incisions ??? decreased urine output, inability to urinate, or if your catheter is no longer draining The number for questions is [phone] before 5 PM weekdays and [phone] after 5 PM and weekends. Activity level: No heavy lifting greater than 10 pounds (about equal to a full gallon jug) for the next 4 weeks or until cleared to do so at follow-up appointment. Otherwise activity as tolerated by comfort level. Diet: You may resume your regular diet as tolerated. Catheter: Your ramos catheter will remain in place until the test to check your bladder (cystogram). Please keep it open to a drainage bag (either large or small). Please call right away if you see any blood in your urine. Driving: No driving if you are still sore from surgery as it may limit your ability to react quickly if necessary. Shower/Bath: You may shower and get incision(s) wet. Pat dry immediately following. Do not scrub them vigorously for the next 2-3 weeks. Do not soak incision(s) (i.e. soaking in bath or swimming) until told you may do so by a doctor, as this may promote a wound infection. Wound Care: You may cover wounds with sterile gauze as needed to prevent incision rubbing on clothes or for any seepage. Follow up Appointments: Follow-up appointment will be scheduled with Dr. Epps in 2 weeks. You will have a special test to check the bladder (cystogram) prior to the appointment. Appointment will bemailed to you. Please call [phone] (clinic number for appointments) to confirm date and time of your appointment if you do not receive it. General Instructions None Future Appointments and Orders Future Orders Complete By Expires XR Fluoro Cystogram [00580 Custom] 11/06/2016 (Approximate) 05/08/2017 Process Instructions: Scheduling Instructions: Comments: Please coordinate with urology appt to follow Questions: Where will study be performed?: [facility] Reason for exam and clinical history: Evaluate for leak s/p nephroureterectomy 02 Nov 2016 Other pertinent information: Stat read required?: Date of injury if applicable: Requested Time: Referral to Home Health - at DISCHARGE [[id number] CPT(R)] As directed Process Instructions: Scheduling Instructions: Comments: DOCUMENTATION FOR VNA SERVICES (INCLUDING THOSE PATIENTS WITH MEDICARE COVERAGE REQUIRING HOME VNA SERVICES AND/OR HOSPICE SERVICES) PATIENT'S LOCATION: Isaura Aguiar [address] [facility] [address] (home) [phone] (cell) Incoming Inspector's Name: brittni In discussion with the attending physician, it is certified that this patient is under their care and that they, or a Nurse Practitioner,Clinical Nurse specialist or Physician Sociology Faculty Member who is working directly with them, had a face to face encounter that meets the physician face to face encounter requirements with this patient on 11/04/16 The encounter with the patient was in whole, or in part, for the following medical condition, whichis the primary reason for home health care services: Ureteral Cancer In discussion with the provider, it is [...] re health issues HOME HEALTH CARE AGENCY: [facility] PHONE: [phone] FAX: [phone] Start of care: 24-48hrs after discharge FOR MEDICARE ONLY: In discussion with the attending physician, it is certified that the clinical findings support thatthis patient is homebound because absences from home require considerable and taxing effort due to:Unsteady Gait, poor balance , requiring assistive devices and/or assistance of another Please note that any additional orders needs or changes will need to be obtained from this patient's PCP: Dulce Hidalgo MD [facility] [place] [id number] All A agencies which cover the area of patient's residence have been reviewed, either verbally ernestina writing, and patient/family have chosen the home health care agency noted Questions: Agency name and contact information: [facility] Patient location post discharge: Home What services are requested: Registered Nurse Start date: Responsible MD post discharge contact info: PCP Follow-Up: No future appointments. Primary Care Provider: Dulce Hidalgo MD [phone] Follow-up Recommendations for Providers: Please see discharge instructions. Call your doctor if: Please call your doctor immediately or go to an Emergency Department if you notice worsening pain not controlled by pain medications, uncontrolled headache, vision changes, chest pain, difficulty breathing, persistent nausea and vomiting, new redness or swelling in any extremities, new onset weakness or changes in sensation, or for any fevers greater than 101.3 F. Your care was managed by the Urology Team at [facility]. If you have any questions or concerns, please feel free to contact us. Provider Contact Information: Urology Clinic: [facility] [place] (after business hours): documented in this encounter Discharge Instructions * Patient Instructions* Gilbert Mares MD - 11/04/2016 10:53 AM EDT UROLOGY DISCHARGE INSTRUCTIONS Call your doctor for: ??? fevers greater than 100.5 ??? severe nausea or vomiting ??? increasing pain not controlled by pain medications ??? increasing redness or drainage from incisions ??? decreased urine output, inability to urinate, or if your catheter is no longer draining The number for questions is [phone] before 5 PM weekdays and [phone] after 5 PM and weekends. Activity level: No heavy lifting greater than 10 pounds (about equal to a full gallon jug) for the next 4 weeks or until cleared to do so at follow-up appointment. Otherwise activity as tolerated by comfort level. Diet: You may resume your regular diet as tolerated. Catheter: Your ramos catheter will remain in place until the test to check your bladder (cystogram). Please keep it open to a drainage bag (either large or small). Please call right away if you see any blood in your urine. Driving: No driving if you are still sore from surgery as it may limit your ability to react quickly if necessary. Shower/Bath: You may shower and get incision(s) wet. Pat dry immediately following. Do not scrub them vigorously for the next 2-3 weeks. Do not soak incision(s) (i.e. soaking in bath or swimming) until told you may do so by a doctor, as this may promote a wound infection. Wound Care: You may cover wounds with sterile gauze as needed to prevent incision rubbing on clothes or for any seepage. Follow up Appointments: Follow-up appointment will be scheduled with Dr. Epps in 2 weeks. You will have a special test to check the bladder (cystogram) prior to the appointment. Appointment will bemailed to you. Please call [phone] (clinic number for appointments) to confirm date and time of your appointment if you do not receive it. documented in this encounter Medications at Time [...] as of this encounter Progress Notes * Kenyatta Spencer RN - 11/06/2016 10:35 AM EDT Patient Name: Isaura Aguiar Patient Age: 76 y.o. Birthdate: 1940 Admit date: 11/02/2016 Attending Physician: Yaritza Epps MD Pt and returned verbalization of discharge instructions. Leg bag video shown to pt and . Reviewed leg bag/ramos catheter education with pt and . No new Rx. Patient left [facility] in a wheelchair accompanied by 2 [place] staff. * Gilbert Mares MD - 11/06/2016 10:05 AM EDT UROLOGY INPATIENT PROGRESS NOTE ID: Isaura Aguiar is a 76 y.o. 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 Events over the last 24 hrs: Tolerating regular diet. Consistent flatus. Frequent ambulation. No events overnight. Objective: Temp: [36.6 ??C (97.9 ??F)-36.8 ??C (98.2 ??F)] Heart Rate: [66-68] Resp: [14-20] BP: (117-166)/(49-75) SpO2: [95 %-98 %] Heart Rate from SPO2: [64 bpm-72 bpm] 11/05 0701 - 11/06 0700 In: 1103 [P.O.:1060; I.V.:43] Out: 2220 [Urine:2150] GABINO drain 70 Physical Exam Gen- NAD, resting comfortably Resp- nonlabored breathing Abd- soft, appropriately tender, nondistended Incisions - c/d/i Drain SSF Ext- warm and well perfused, SCDs in place Assessment/Management/Plan: RIGHT ureteral tumor s/p RIGHT robotic-assisted laparoscopic nephroureterectomy. Consistent ROBF with adequate oral intake. Deconditioning will require VNA services per PT. She has not taken narcotics in 2 d and declines a prescription. Has met parameters for discharge today. Drain to be removed prior to discharge. Neuro: PO Tylenol scheduled, PO oxycodone prn, IV Dilaudid for breakthrough CV: currently stable, on home ASA, atenolol, HCTZ, simvastatin Resp: satting well on RA GI: Colace, Zofran prn. Add Bacid, Protonix, Tums. May take her own apple cider vinegar if she wants to. : Ramos will remain in place x 10 d with cystogram. FEN: replace lytes prn, HLIV, regular diet Endo: no issues Heme: continue ppx SQH ID: afebrile Prophylaxis: SQ heparin, SCDs, encourage ambulation Dispo: stable on floor status Associated attestation - Geoff Dias MD - 11/06/2016 12:36 PM EDT I have seen the patient and reviewed the resident's above history and I agree with the details as written. The assessment and plan were formulated in discussion with me and I agree with them as documented. * Gilbert Mares MD - 11/05/2016 2:25 PM EDT UROLOGY INPATIENT PROGRESS NOTE ID: Isaura Aguiar is a 76 y.o. 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 Events over the last 24 hrs: Improved oral intake. Rare flatus. Frequent ambulation. Feels improved overall. Objective: Temp: [36.5 ??C (97.7 ??F)-36.7 ??C (98.1 ??F)] Heart Rate: [59-68] Resp: [16-22] BP: (117-165)/(48-75) SpO2: [90 %-98 %] Heart Rate from SPO2: [55 bpm-72 bpm] 11/04 0701 - 11/05 0700 In: 5614 [P.O.:1440; I.V.:4174] Out: 1495 [Urine:1475] GABINO drain 20 Physical Exam Gen- NAD, resting comfortably Resp- nonlabored breathing Abd- soft, appropriately tender, nondistended Incisions - c/d/i Drain SSF Ext- warm and well perfused, SCDs in place Recent Labs 11/05/16 0210 11/04/16 0500 11/03/16 0745 WBC 7.0 8.0 9.3 HGB 10.7* 11.6* 12.4 HCT 32.3* 35.0* 38.6 PLATELET 174 197 202 Recent Labs 11/05/16 0210 11/04/16 0500 11/03/16 0745 NA 139 144 139 K 3.3* 3.5 4.0 CL 104 105 100 CO2 23 26 28 BUN 12 13 18 CREATININE 1.16 1.18 1.33* GLUCOSE 101 112 172 CALCIUM 8.1* 8.3* 8.7 Assessment/Management/Plan: RIGHT ureteral tumor s/p RIGHT robotic-assisted laparoscopic nephroureterectomy. Slow ROBF, now resolving. Awaiting more consistent flatus and oral intake. Deconditioning will require VNA services per PT. Anticipate discharge in 24-48 hours. Neuro: PO Tylenol scheduled, PO oxycodone prn, IV Dilaudid for breakthrough CV: currently stable, on home ASA, atenolol, HCTZ, simvastatin Resp: satting well on RA GI: Colace, Zofran prn. Add Bacid, Protonix, Tums. May take her own apple cider vinegar if she wants to. : continue monitoring UOP, Ramos will remain in place x 10 d with cystogram. FEN: replace lytes prn, HLIV, regular diet Endo: no issues Heme: continue ppx SQH ID: afebrile Prophylaxis: SQ heparin, SCDs, encourage ambulation Dispo: stable on floor status Associated attestation - Geoff Dias MD - 11/05/2016 4:16 PM EDT I have seen the patient and reviewed the resident's above history and I agree with the details as written. The assessment and plan were formulated in discussion with me and I agree with them as documented. * Christine Kathleen RN - 11/04/2016 7:44 AM EDT Patient continues with postoperative care. Ramos catheter in place; good output noted although can air-lock. SCDs in place with patient's legs elevated. She ambulated out of room to the next pod and back (about a lap) and tolerated it well, using walker and Ax1-2 to mobilize. She sat in chair for about an hour this morning as well. Nausea intermittent but patient did not want Zofran overnight. Oxycodone 5mg given x2 overnight for pain rated 3-5/10. Patient only had sips and chips overnight. Bowel sounds hypoactive. Lap sites without drainage at this time. GABINO drain to left abdomen had bloody drainage on the dressing at the insertion site. Dressing changed this morning. Scant output noted from GABINO drain. Patient hopeful for good recovery. Emotional support provided. Will continue to monitor patient and notify MD of any changes or concerns. * Edwige Cheng PA - 11/04/2016 7:20 AM EDT Urology IP Progress Note ID: Isaura Aguiar is a 76 y.o. 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 POD #2 Events over the last 24 hrs: Nausea and emesis x 2 yesterday Currently with reflux Pain treated with oxycodone Objective: Temp: [36.6 ??C (97.9 ??F)-36.9 ??C (98.4 ??F)] Heart Rate: [63] Resp: [14-20] BP: (124-181)/(41-68) SpO2: [94 %-100 %] Heart Rate from SPO2: [59 bpm-75 bpm] I/O last 3 completed shifts: In: 3480 [P.O.:280; I.V.:3200] Out: 2620 [Urine:1645; Emesis/NG output:700; Other:75; Blood:200] GABINO drain 45 ml Physical Exam Gen- NAD, resting comfortably Resp- nonlabored breathing Abd- soft, appropriately tender, nondistended Incisions - c/d/i Ext- warm and well perfused, SCDs in place Labs Lab Results Component Value Date WBC 8.0 11/04/2016 RBC 3.99 (L) 11/04/2016 HGB 11.6 (L) 11/04/2016 HCT 35.0 (L) 11/04/2016 MCV 87.7 11/04/2016 MCH 29.1 11/04/2016 MCHC 33.1 11/04/2016 PLATELET 197 11/04/2016 RDWCV 14.1 11/04/2016 Lab Results Component Value Date NA 144 11/04/2016 K 3.5 11/04/2016 CL 105 11/04/2016 CO2 26 11/04/2016 BUN 13 11/04/2016 CREATININE 1.18 11/04/2016 GLUCOSE 112 11/04/2016 CALCIUM 8.3 (L) 11/04/2016 Assessment/Management/Plan: Isaura Aguiar is a 76 y.o. female who presented with right ureteral tumor s/p right robotic nephroureterectomy POD #2. Doing well. Goals today are improving pain and nausea management, ambulation, and tolerating advancement of diet. Neuro: PO Tylenol scheduled, PO oxycodone prn, IV Dilaudid for breakthrough CV: currently stable, on home ASA, atenolol, HCTZ, simvastatin Resp: satting well on RA GI: Colace, Zofran prn. Add Bacid, Protonix, Tums. May take her own apple cider vinegar if she wants to. : continue monitoring UOP, Ramos will remain in place x 1-2 weeks. FEN: replace lytes prn, NS @ 100 ml/hr, advance to regular diet, advised caution Endo: no issues Heme: continue ppx SQH ID: afebrile Prophylaxis: SQ heparin, SCDs, encourage ambulation Dispo: stable on floor status * Angelique Cruz RN - 11/03/2016 5:32 PM EDT Patient arrived to unit around 15:00. VSS. Patient endorsed nausea and vomitted ~400mL. Ramos draining adequate urine. Ramos care done. GABINO drain draining scant amount of serosanguinous drainage. Worked with PT who got her up to chair. After ~30 minutes, she requested to go back to bed. Was feeling nauseas again and endorsed sharp pain of left, lateral abdomen (surgical drain area). IV zofran and 10mg oxycodone given. She ambulates well with two person assist. * Lynne Sevilla RN - 11/03/2016 11:04 AM EDT 1045 Pt. Repositioned to left side. Tearful and hesitant about turning. Given 0.2 Dilaudid IV and encouraged to consider Oxycodone IR for unrelieved pain. Spo2 98 on room air. Using IS with good effort, up to 1500. * Edwige Cheng PA - 11/03/2016 7:23 AM EDT Urology IP Progress Note ID: Isaura Aguiar is a 76 y.o. 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 POD #1 Events over the last 24 hrs: Pain well managed Tolerating clears Boarding in PACU No nausea, no flatus Objective: Temp: [36.1 ??C (97 ??F)-36.4 ??C (97.5 ??F)] Heart Rate: [48-66] Resp: [8-16] BP: (120-169)/(48-83) SpO2: [95 %-100 %] Heart Rate from SPO2: [48 bpm-82 bpm] I/O last 3 completed shifts: In: 4200 [I.V.:4200] Out: 680 [Urine:450; Other:30; Blood:200] Physical Exam Gen- NAD, resting comfortably CV-- RRR Resp- nonlabored breathing Abd- soft, appropriately tender, nondistended Incisions - c/d/i Ext- warm and well perfused, SCDs in place Labs pending Assessment/Management/Plan: Isaura Aguiar is a 76 y.o. female who presented with right ureteral tumor s/p right robotic nephroureterectomy POD #1. Doing well. Goals today are pain management, ambulation, and tolerating advancement of diet. Neuro: PO Tylenol scheduled, PO oxycodone prn, IV Dilaudid for breakthrough CV: currently stable, on home ASA, atenolol, HCTZ, simvastatin Resp: satting well on 2L NC GI: Colace, Zofran prn : continue monitoring UOP, Ramos can be removed later when mobilizing FEN: replace lytes prn, NS @ 100 ml/hr, clear liquids Endo: no issues Heme: continue ppx SQH ID: afebrile Prophylaxis: SQ heparin, SCDs, encourage ambulation Dispo: stable on floor status * Liz Bates RN - 11/03/2016 2:54 AM EDT D/c'd pt's Rt Art Line. No oozing or hematoma noted to site. Pressure drsg placed. Pt tolerated well. * Rakesh Hussein MD - 11/03/2016 2:03 AM EDT Post-op Check Patient Name: Isaura Aguiar Patient Age: 76 y.o. Attending Physician: Yaritza Epps MD Isaura Aguiar is a 76 y.o. female s/p right laparoscopic nephrectomy. Procedures: @LAPAROSCOPY TOTAL NEPHROURETERECTOMY, ROBOTICS ASSIST (WRVU 25.36) MODIFIER ROBOT,DAVINCI XI LAPAROSCOPIC, EXTENSIVE LYSIS ADHESIONS (WRVU *) S: Mrs. Aguiar is doing well postoperatively. She is in good spirits and without any complaints. She reports having some nausea when arriving in PACU but that has since resolved. She endorses mild abdominal and right sided soreness but is otherwise comfortable. She denies having any fevers, chills,chest pain, or SOB. O: Last value Range last 24hrs Temperature Temp: 36.4 ??C (97.5 ??F) Temp: [36.1 ??C (97 ??F)-36.4 ??C (97.5 ??F)] Heart Rate Heart Rate: 55 Heart Rate: [48-66] Blood Pressure BP: 143/54 BP: (120-169)/(50-83) Respiratory Rate Resp: 12 Resp: [10-16] SpO2 SpO2: 97 % SpO2: [95 %-100 %] I/O this shift: In: 1999 [I.V.:1999] Out: 335 [Urine:135; Blood:200] General: Resting comfortably in bed in NAD, A/O x 3, answering questions appropriately. HEENT: NC/AT. CVS: Regular rate. Pulm: Normal respiratory effort on 2L NC. Abd: Soft, obese, appropriately tender. Incisions clean and intact. Skin: Warm, Dry Neuro: CN 2-12 grossly intact, nonfocal Drains: GABINO output: 30 ml ss fluid. Ramos output: 150 ml clear yellow urine. A/P: Isaura Aguiar is a 76 y.o. female s/p laparoscopic right nephrectomy, currently in stable condition and recovering well after surgery. - Pain well controlled. - Hemodynamically stable, UOP adequate. - Continue post-op plan. Rakesh Hussein MD Associated attestation - Yaritza Epps MD - 11/04/2016 1:34 PM EDT Attending Addendum I have seen the patient and reviewed the history and examination. I agree with the details as written. The assessment and plan were formulated in discussion with me and I agree with them as documented. I would add the following: Doing well Needs to ambulate Yaritza Epps documented in this encounter H&P Notes * Yaritza Epps MD - 11/02/2016 1:06 PM EDT Patient Name: Isaura Aguiar Patient Age: 76 y.o. Birthdate: 1940 Admit date: 11/02/2016 Attending Physician: Yaritza Epps MD No change in history or examination. She is ready to proceed with a right radical nephroureterectomy All questions answered Yaritza Epps documented in this encounter Nursing Notes * Ani Sabillon, LOIS - 11/02/2016 8:05 PM EDT 20:05 Patients family updated per Dr Epps . Vinny Harrison documented in this encounter Miscellaneous Notes * Plan of Care - Rita Jim RN - 11/06/2016 1:07 AM EDT Problem: Patient Care Overview Goal: Plan of Care Review Outcome: Ongoing (Interventions Implemented as Appropriate) OUTCOME EVALUATION NOTE: OUTCOME SUMMARY: Pt alert and oriented x 4, denies pain but states discomfort to lower abd area but doesn't want anypain meds during shift. VSS, , no events during shift, will continue to monitor and assess and notify MD of any changes PLAN MOVING FORWARD: Monitor urine output via ramos, VS, labs, pain management INDIVIDUALIZED FALL PREVENTION INTERVENTIONS: Patient-specific fall risk factors per assessment: [current deficits]: Generalized weakness, ramos cath., recovering from surgery Assistance [level of assistance required for transfers and ambulation]: Standby assist with walker Supervision [direct monitoring required during toileting and ADLs]: Standby assist with walker Surveillance [continuous indirect monitoring]: Masimo, call miller within reach, bed alarm, hourly rounding Patient-specific fall prevention interventions for sensory deficits provided, if applicable: [X] N/A CPG GOAL OUTCOME EVALUATION: * Plan of Care - Kenyatta Spencer RN - 11/05/2016 2:29 PM EDT Problem: Patient Care Overview Goal: Plan of Care Review Outcome: Ongoing (Interventions Implemented as Appropriate) 11/05/16 1417 Coping/Psychosocial Plan Of Care Reviewed With patient Plan of Care Review Progress progress toward functional goals as expected OUTCOME EVALUATION NOTE: OUTCOME SUMMARY: Isaura's pain ranged 0-4/10, effectively controlled with scheduled tylenol. Denied need for additional pain medication. Tolerating regular diet, no c/o nausea. Adequate UOP. Passing gas, no BM. Ambulated in mueller multiple times. PLAN MOVING FORWARD: Home tomorrow with ramos. Encourage ambulation. Manage pain. INDIVIDUALIZED FALL PREVENTION INTERVENTIONS: High fall risk Patient-specific fall risk factors per assessment: [current deficits]: Patient has 2 or more activediagnoses, recent surgery, has an actively infusing IV line, uses an ambulatory aid, has generalized weakness, GABINO drain, ramos catheter, and pain. Assistance [level of assistance required for transfers and ambulation]: SBA with walker Supervision [direct monitoring required during toileting and ADLs]: Eyes on Surveillance [continuous indirect monitoring]: Hourly rounding, observation by staff, NKE at bedside. Assistive device, bed/chair alarm, environmental modifications (reduce clutter, lighting adjustedfor safety, IV tubing and cords are free from the floor), glasses at bedside, nonskid shoes/slippers when out of bed, bed in low position, upper position siderails raised x2, wheels locked, call light in reach, ID bands on, yellow falls ID band on Patient-specific fall prevention interventions for sensory deficits provided, if applicable: Yes, visison, glasses at bedside CPG GOAL OUTCOME EVALUATION: Goal: Individualization & Mutuality Outcome: Ongoing (Interventions Implemented as Appropriate) 11/05/161416 Individualization Patient Specific Interventions encourage ambulation, pain management Goal: Fall Prevention-Safe Patient Handling Outcome: Ongoing (Interventions Implemented as Appropriate) 11/05/16 0728 11/05/16 1130 11/05/161416 Musculoskeletal Interventions Muscle Strengthening -- -- activity/mobility promoted Activity and Safety Assistive Device -- -- Front wheel walker Daily Care Interventions Self-Care Promotion -- -- independence encouraged;BADL personal objects within reach East Fall Risk History of Falling 0 -- -- Secondary Diagnosis 15 -- -- Ambulatory Aids 15 -- -- Intravenous Therapy/Heparin/Saline Lock 20 -- -- Gait/Transferring 10 -- -- Mental Status 0 -- -- Score 60 -- -- OTHER East Fall Risk High -- -- Restraint Interventions Safety Promotion/Fall Prevention activity supervised;nonskid shoes/slippers when out of bed;safety round/check completed -- -- Positioning Body Position -- independent;up in chair -- Goal: Infection Control Outcome: Ongoing (Interventions Implemented as Appropriate) 11/05/16 0728 Safety Interventions Isolation Precautions standard precautions maintained Infection Prevention environmental surveillance performed Coping Strategies Supportive Measures active listening utilized;self-care encouraged Goal: Discharge Needs Assessment Outcome: Ongoing (Interventions Implemented as Appropriate) 11/05/161416 Living Environment Transportation Available family or friend will provide Problem: Pain, Acute (Adult) Goal: Identify Related Risk Factors and Signs and Symptoms Related risk factors and signs and symptoms are identified upon initiation of Human Response Clinical Practice Guideline (CPG) Outcome: Outcome (s) achieved Date Met: 11/05/16 11/05/161416 Pain, Acute Related Risk Factors (Acute Pain) surgery Signs and Symptoms (Acute Pain) constipation/diarrhea;facial mask of pain/grimace;verbalization of pain descriptors;guarding/abnormal posturing/positioning Goal: Acceptable Pain Control/Comfort Level Patient will demonstrate the desired outcomes by discharge/transition of care. Outcome: Ongoing (Interventions Implemented as Appropriate) 11/05/16 1417 Pain, Acute (Adult) Acceptable Pain Control/Comfort Level making progress toward outcome * Plan of Care - Odalis Riggins RN - 11/05/2016 2:47 AM EDT Problem: Patient Care Overview Goal: Plan of Care Review Outcome: Ongoing (Interventions Implemented as Appropriate) 11/04/16 1945 11/05/16 0244 Coping/Psychosocial Plan Of Care Reviewed With patient -- Plan of Care Review Progress -- improving OUTCOME EVALUATION NOTE: OUTCOME SUMMARY: Isaura slept between care. She denies pain. She is receiving scheduled Tylenol of which she can only take the caplet type. Ramos is draining adequate amounts of clear yellow urine. Her L GABINO puts out barely scant amounts of serosanguinous fluid. Reports flatus, no BM. At 0400, Isaura ambulated in the mueller. PLAN MOVING FORWARD: Encourage ambulation. Encourage pulmonary hygiene. Monitor and manage pain. INDIVIDUALIZED FALL PREVENTION INTERVENTIONS: High fall risk Patient-specific fall risk factors per assessment: [current deficits]: IV access, recent surgery, acute pain, secondary dx Assistance [level of assistance required for transfers and ambulation]: 2&FWW Supervision [direct monitoring required during toileting and ADLs]: Hands on Surveillance [continuous indirect monitoring]: NKE at bedside, purposeful rounding Patient-specific fall prevention interventions for sensory deficits provided, if applicable: N/A CPG GOAL OUTCOME EVALUATION: * Plan of Care - Angelique Cruz RN - 11/04/2016 12:51 PM EDT Problem: Patient Care Overview Goal: Plan of Care Review Outcome: Ongoing (Interventions Implemented as Appropriate) 11/04/16 1135 Coping/Psychosocial Plan Of Care Reviewed With patient;spouse Plan of Care Review Progress improving Goal: Fall Prevention-Safe Patient Handling Outcome: Ongoing (Interventions Implemented as Appropriate) 11/04/16 0837 East Fall Risk History of Falling 0 Secondary Diagnosis 15 Ambulatory Aids 15 Intravenous Therapy/Heparin/Saline Lock 20 Gait/Transferring 10 Mental Status 0 Score 60 OTHER East Fall Risk High Restraint Interventions Safety Promotion/Fall Prevention activity supervised;fall prevention program maintained;nonskid shoes/slippers when out of bed Positioning Body Position independent Goal: Infection Control Outcome: Ongoing (Interventions Implemented as Appropriate) 11/04/16 0837 Safety Interventions Isolation Precautions standard precautions maintained Infection Prevention environmental surveillance performed Coping Strategies Supportive Measures active listening utilized;verbalization of feelings encouraged;self-care encouraged;positive reinforcement provided Goal: Interdisciplinary Rounds/Family Conf Outcome: Ongoing (Interventions Implemented as Appropriate) 11/04/16 1226 Interdisciplinary Rounds/Family Conf Participants family;nursing;physician;physical therapy;embedded case manager OUTCOME EVALUATION NOTE: OUTCOME SUMMARY: Diet advanced to regular. She is eating very small amounts. Worked with PT. She has been motivated to ambulate. One lap around unit (132 feet) with PT and two more with nursing staff. Ramos draining adequate urine output. Patient transferred to [facility] per MD's request. Report called to LOIS Renae. PLAN MOVING FORWARD: Encourage ambulation Monitor I+O's Monitor vitals and labs INDIVIDUALIZED FALL PREVENTION INTERVENTIONS: Patient-specific fall risk factors per assessment: [current deficits]: Rates as high fall risk due to ramos, IV lines, and generalized weakness Assistance [level of assistance required for transfers and ambulation]: FWW Supervision [direct monitoring required during toileting and ADLs]: 2 assist Surveillance [continuous indirect monitoring]: Call miller within reach, purposeful hourly rounding, ward Patient-specific fall prevention interventions for sensory deficits provided, if applicable: [X] N/A CPG GOAL OUTCOME EVALUATION: * Initial Assessments - Vivienne Zayas RN - 11/04/2016 12:18 PM EDT Office of Care Management Initial Assessment Vivienne Zayas RN reviewed record and discussed patient with Care Team. Source of Information: Patient and medical record Introduced self/reviewed role; services accepted. Reason for Hospitalization: Ureteral Cancer Past Medical History: Diagnosis Date ??? Benign essential tremor ??? 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 Hypertension ??? Osteopenia 01/22/2011 ??? Stage III Ovarian cancer Hospitalizations Within the Past 30 Days: None Anticipated Length Of Stay (If known): TBD Current Decision-Making Capacity: Self, A&Ox3, Full Capacity Advance Care Planning: Received, Patient is a full code and Taran is her proxy Current Coping/Education/Information Needs: Happy with hospital services Current Functional Ability: walker with assist of one Functional Status Prior to Admission: Independent Home Environment: Lives with Taran, Has 5 stairs to enter home in summer and a full flight in winter. Lives on one level [address] [facility] [id number] Social & Family Supports/Community Resources: Family Extended Emergency Contact Information Primary Emergency Contact: Taran [facility] Relation: Spouse Secondary Emergency Contact: [place] [address] [facility] [place] Relation: Child Behavioral Health History: n/a Substance Use/Abuse: n/a Other Pertinent/Service Specific Information: n/a Health/Prescription Coverage: Primary Insurance: Payor: MEDICARE / Plan: MEDICARE PART A & B / Product Type: *No Product type* / Secondary Insurance: none Prescription Coverage: Preferred [facility]acy: [facility] [place] [address] [address] [place] [address] [address] Other: n/a Primary Care Provider: Dulce Hidalgo MD [phone] Patient/Caregiver Goals of Treatment: To go home and find out treatment Potential Needs for Transition of Care: Rehab/SNF: na Home Health: The patient/medical collections representative has been provided a list of Home Health Agencieswhich serve their preferred geographic area. A letter describing our affiliations was reviewed with them and they were educated about their right to choose where referrals are placed. Patient requests referral to [facility]. PHONE: [phone] FAX: [phone]. Expected date of discharge: TBD. Referral routed to the Dietetic Technician Registered for matching with agency/vendor and to provide any required information. DME: Has walker if needed Dialysis: na Community Resources: n/a Transportation: Taran Chau will drive patient home via car Other: n/a Anticipated Barriers to Discharge/Special Considerations: none Plan: Patient will go home with support of and [facility] A member of the Care Management team will continue to monitor progress, follow for continuity of care and assist with transition of care planning. Vivienne Zayas, RN Pager: [phone] * Plan of Care - Suni Rodriguez, PT - 11/04/2016 11:40 AM EDT Problem: Acute Rehab Services Goal & Intervention Plan Goal: Bed Mobility Goal Stand Alone Therapy Goal Outcome: Ongoing (Interventions Implemented as Appropriate) 11/03/16 1543 11/04/16 1135 Bed Mobility Goal Bed Mobility Goal, Date Established 11/03/16 -- Bed Mobility Goal, Time to Achieve 2 wks -- Bed Mobility Goal, Activity Type supine to sit/sit to supine -- Bed Mobility Goal, [place] Level contact guard assist -- Bed Mobility Goal, Assistive Device (log roll) -- Bed Mobility Goal, Outcome Achieved -- goal ongoing Goal: Gait Training Goal Stand Alone Therapy Goal Outcome: Ongoing (Interventions Implemented as Appropriate) 11/03/16 1543 11/04/16 1135 Gait Training Goal Gait Training Goal, Date Established 11/03/16 -- Gait Training Goal, Time to Achieve 2 wks -- Gait Training Goal, [place] Level supervision required -- Gait Training Goal, Assist Device walker, rolling -- Gait Training Goal, Distance to Achieve >150ft -- Gait Training Goal, Additional Goal Pt able to negotiate 4 steps with rail and CGA -- Gait Training Goal, Outcome -- goal ongoing Goal: Goal Transfer Training Stand Alone Therapy Goal Outcome: Ongoing (Interventions Implemented as Appropriate) 11/03/16 1543 11/04/16 1135 Goal Transfer Training Transfer Training Goal, Date Established 11/03/16 -- Transfer Training Goal, Time to Achieve 2 wks -- Transfer Training Goal, Activity Type [id number] -- Transfer Train Goal, [place] Level supervision required -- Transfer Training Goal, Assist Device walker, rolling -- Transfer Training Goal, Outcome -- goal ongoing Problem: Patient Care Overview Goal: Plan of Care Review Outcome: Ongoing (Interventions Implemented as Appropriate) 11/04/16 1135 Coping/Psychosocial Plan Of Care Reviewed With patient;spouse Plan of Care Review Progress improving Physical Therapy Note Treatment Number: 2 Pertinent History of Current Problem: Isaura Aguiar is a 76 y.o. 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 Past Medical History: Active Non-Hospital Problems Diagnosis ??? Renal mass ??? 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 IT band syndrome ??? SK (seborrheic keratosis) ??? AK (actinic keratosis) ??? Osteopenia ??? BRCA2 positive ??? Benign essential tremor ??? Hypertension ??? Stage III Ovarian cancer ??? Breast cancer, stage 1 Precautions/Restrictions: fall Precautions Comments: L side GABINO drain, abdominal incision, log roll Social History: Pt lives with her on the first floor of a multi-level log cabin with 4 STANISLAV with rail. Pt is independent without an AD for ADLs, IADLs and driving. Pt would use walking sticks outside and ambulate ~0.5 miles. Pt has FWW, raised toilet, walk-in shower with seat. Assessment: Pt seen for PT treatment. Pain better controlled, but still continues to be most limiting factor to pt's mobility. She was able to perform sit<>stand transfers and ambulation with FWW and CG/supervision. Pt having most difficulty with supine<>sit transfers, and is currently reliant hospital bed features. Pt reports she intends to sleep in a recliner chair at home instead of sleeping in her bed initially. Anticipate that pt will progress to be able to discharge home with family support and further skilled therapy. Pt encouraged to ambulate frequently with nursing over the weekend to progress mobility. Please see the Rehab Evaluation Summaries section for detailed objective data and specifics of today's session. Mobility Recommendations: Pt to utilize FWW and CG/supervision for ambulation. Requires greater assistance for supine<>sit transfers. Anticipated Physical Therapy Frequency: 3-5 times/wk Anticipated Equipment Needs at Discharge: (TBD, likely has necessary equipment) Anticipated Discharge Disposition: home with assist, home with home health Pager: [phone] SUNI RODRIGUEZ, WINNIE 11/04/2016 Physical Therapy Rehabilitation Department * Plan of Care - Suni Rodriguez, PT - 11/03/2016 3:48 PM EDT Problem: Acute Rehab Services Goal & Intervention Plan Goal: Bed Mobility Goal Stand Alone Therapy Goal Outcome: Ongoing (Interventions Implemented as Appropriate) 11/03/16 1543 Bed Mobility Goal Bed Mobility Goal, Date Established 11/03/16 Bed Mobility Goal, Time to Achieve 2 wks Bed Mobility Goal, Activity Type supine to sit/sit to supine Bed Mobility Goal, [place] Level contact guard assist Bed Mobility Goal, Assistive Device (log roll) Goal: Gait Training Goal Stand Alone Therapy Goal Outcome: Ongoing (Interventions Implemented as Appropriate) 11/03/16 1543 Gait Training Goal Gait Training Goal, Date Established 11/03/16 Gait Training Goal, Time to Achieve 2 wks Gait Training Goal, [place] Level supervision required Gait Training Goal, Assist Device walker, rolling Gait Training Goal, Distance to Achieve >150ft Gait Training Goal, Additional Goal Pt able to negotiate 4 steps with rail and CGA Goal: Goal Transfer Training Stand Alone Therapy Goal Outcome: Ongoing (Interventions Implemented as Appropriate) 11/03/16 1543 Goal Transfer Training Transfer Training Goal, Date Established 11/03/16 Transfer Training Goal, Time to Achieve 2 wks Transfer Training Goal, Activity Type [id number] Transfer Train Goal, [place] Level supervision required Transfer Training Goal, Assist Device walker, rolling Problem: Patient Care Overview Goal: Plan of Care Review Outcome: Ongoing (Interventions Implemented as Appropriate) 11/03/16 1544 Coping/Psychosocial Plan Of Care Reviewed With patient;spouse Physical Therapy Note Evaluation Pertinent History of Current Problem: Isaura Aguiar is a 76 y.o. 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 Past Medical History: Active Non-Hospital Problems Diagnosis ??? Renal mass ??? 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 IT band syndrome ??? SK (seborrheic keratosis) ??? AK (actinic keratosis) ??? Osteopenia ??? BRCA2 positive ??? Benign essential tremor ??? Hypertension ??? Stage III Ovarian cancer ??? Breast cancer, stage 1 Precautions/Restrictions: fall Precautions Comments: L side GABINO drain, abdominal incision, log roll Social History: Pt lives with her on the first floor of a multi-level log cabin with 4 STANISLAV with rail. Pt is independent without an AD for ADLs, IADLs and driving. Pt would use walking sticks outside and ambulate ~0.5 miles. Pt has FWW, raised toilet, walk-in shower with seat. Assessment: Pt seen for PT evaluation. Pt presents to PT with pain, nausea, decreased strength and endurance and impaired balance which limits her ability to perform bed mobility, transfers and ambulation without assistance or an AD. With assistance of 1-2, pt able to transfer OOB to chair with FWW. Anticipate that as her pain and nausea are better controlled, her mobility will improve and she will be able to discharge home with support of her and further skilled therapy. Please see the Rehab Evaluation Summaries section for detailed objective data and specifics of today's session. Mobility Recommendations: Pt to utilize FWW and 1-2 assist for transfers bed<>chair. Anticipated Physical Therapy Frequency: 3-5 times/wk Anticipated Equipment Needs at Discharge: (TBD, likely has necessary equipment) Anticipated Discharge Disposition: home with assist, home with home health (anticipate once pain better controlled) Pager: [phone] SUNI RODRIGUEZ, PT 11/03/2016 Physical Therapy Rehabilitation Department 2017 PT Evaluation Code Rationale: ?? Diagnosis & Pertinent Co-Morbidities affecting Plan of Care: See PMHx above ?? Clinical presentation: Stable Evolving Unstable X ?? Examination of Body Systems: Addressing 1-2 elements X Addressing 3 + elements Addressing 4 + elements Clinical decision making of low complexity using standardized patient assessment instrument and measurable assessment of functional outcome. * Brief Op Note - Rowena Rios - 11/02/2016 11:11 PM EDT Brief Operative Note Patient Name: Isaura Aguiar : [id number] MR#: [id number] Case Date: 11/02/2016 Surgeon: Surgeon(s) and Role: * Yaritza Epps MD - Primary * Rowena Rios MD - Resident-Surgeon Chief Preoperative diagnosis: Right ureteral cancer Postoperative diagnosis: Right ureteral cancer Procedure(s) (LRB): @LAPAROSCOPY TOTAL NEPHROURETERECTOMY, ROBOTICS ASSIST (WRVU 25.36) (Right) MODIFIER ROBOT,DAVINCI XI (N/A) Anesthesia: General Findings: Extensive lysis of adhesions 2 right renal arteries, 1 renal vein, one ureter densely adherent to the right common iliac artery and vein, carefully dissected off Change from left lateral decubitus to supine with robot re-dock for distal ureteral dissection and excision Water tight bladder closure Complications: none Estimated Blood Loss: 100cc Fluids: Intraprocedure Crystalloid Total None PRBCs: none (See Anesthesia Record/Report for Other Blood Products) Urine Output: 200 mL Drains: 19blake, 14F ramos catheter Disposition: awakened from anesthesia, extubated and taken to the recovery room in a stable condition, having suffered no apparent untoward event. Condition: doing well without problems (Please see the Surgical Encounter Summary for any Implant and Specimen details pertinent to this patient.) Infection Bundle used? No * Op Note - Rowena Rios - 11/02/2016 11:10 PM EDT [facility] [place] Note Patient Name: Isaura Aguiar : [id number] MR#: [id number] Case Date: 11/02/2016 Surgeon: Surgeon(s) and Role: * Yaritza Epps MD - Primary * Rowena Rios MD - Resident-Surgeon Chief Surgeon: Surgeon(s) and Role: * Yaritza Epps MD - Primary * Rowena Rios MD - Resident-Surgeon Chief Preoperative diagnosis: Right ureteral cancer Postoperative diagnosis: Right ureteral cancer Procedure(s) (LRB): @LAPAROSCOPY TOTAL NEPHROURETERECTOMY, ROBOTICS ASSIST (WRVU 25.36) (Right) MODIFIER ROBOT,DAVINCI XI (N/A) Anesthesia: General Findings: Extensive lysis of adhesions 2 right renal arteries, 1 renal vein, one ureter densely adherent to the right common iliac artery and vein, carefully dissected off Change from left lateral decubitus to supine with robot re-dock for distal ureteral dissection and excision Water tight bladder closure Complications: none Estimated Blood Loss: 100cc Fluids: Intraprocedure Crystalloid Total None PRBCs: none (See Anesthesia Record/Report for Other Blood Products) Urine Output: 200 mL Drains: 19blake, 14F ramos catheter Disposition: awakened from anesthesia, extubated and taken to the recovery room in a stable condition, having suffered no apparent untoward event. Condition: doing well without problems (Please see the Surgical Encounter Summary for any Implant and Specimen details pertinent to this patient.) Infection Bundle used? No HPI/Surgical Indications: Isaura Aguiar is a 76 yo female with a history of large volume right ureteral tumor and chronicright renal obstruction. After a thorough discussion of the risks and benefits involved in the procedure, she elected to proceed with right robotic assisted laparoscopic right nephroureterectomy. Procedure Description: The patient was identified and consented in preop holding was taken to the operating room and placed on the operating room table in supine position. Preoperative antibiotic consisting of IV Ancef wasgiven, SCDs were placed, prophylactic sub cutaneous heparin, and general anesthesia was administered. Once an adequate level of general anesthesia had been administered, a 14fr ramos catheter was placed with sterile technique for clear urine. She was placed in a modified left lateral decubitus position with the right side up pressure points carefully padded. A safety timeout was held confirming the patient's identity, planned procedure, and laterality. Test roll confirmed stability on the table. She was prepped and draped in standard sterile fashion. The abdomen was insufflated transumbilically with a Veress needle after confirmation drop test to 15mmHg without difficulty. 10mm Optiview trocar access was obtained lateral to the umbilicus under vision. There was no injury to intraabdominalcontents. 8mm trocars were placed under vision in the right lower quadrant. We encountered several small bowel adhesions to the abdominal wall. Extensive lysis of adhesions was carried out with cold laparoscopic scissors to drop the bowel from the abdominal wall. The right lower quadrant port was exchaged to an air seal. An a trocar was placed to the right of the anterior superior iliac spine trocar was placed under vision in the lower midline for assistance and ultimate extraction. The Omniturei robot was docked in the usual fashion. The liver demonstrated adhesions taken down withcold robotic scissors. The monopolar scissors and bipolar cautery were used to take down the liver adhesions. A 5mm subxiphoid port was placed for liver retraction. A locking grasper was used to elevated the liver and was secured to the lateral abdominal peritoneum. The monopolar scissors were thenused to incise the line of Toldt was incised and the colon reflected medially. The duodenum was then carefully dissected off ehe anterior kidney with athermal techique exposing the venal cava. There ureter was viewed and elevated off of the psoas with the kidney using a 3rd retracting arm. The right gonadal vein was further dissected and ultimately clipped with hem-o-lock and ligated to assist inretraction. The two renal arteries and vein were dissected and controlled with vascular stapling insequence. The adrenal was released from the upper pole and spared. The upper pole, lateral, and inferior attachments were taken. The ureter was dissected down to where it crossed over the iliac vessels. Here the ureter was found to be densely adherent to the right common iliac artery and vein. The ureter was carefully dissected off the iliacs using cold robotic scissors. There was notable residual matted/necrotic tissue left behind on the vessels as it could not be fully removed without vascular insult. We then dissected the right distal gonadal vein to its insertion in the inguinal canal. The ureter was then dissected down as distally as possible, however, given her body habitus and distance to the pelvis, the decision was made to undock the robot and switch position. The robot was undocked, the port sites removed, and covered with sterile dressing. She was then repositioned on a new split leg bed in a supine position and prepped and draped in a sterile fashion. A1.5cm midline incision was created above the umbilicus and a Palacios technique was used to gain access and insufflate through a 12mm Palacios port. The abdomen was inspected and there was no sign of intraabdominal injury, however there were several anterior abdominal wall bowel adhesions. Two additional robotic trocars were placed under vision in the right abdomen. A robotic trocar was placed in themid left abdomen, and a 10mm orthopedic physician assistant port placed several cm superior to the ASIS. We then performed an additional lysis of adhesions using cold laparoscopic scissors to drop the bowel from the abdominal wall. The patient was placed in Trendelenberg position, and the robot was docked with monopolar scissors in right hand, bipolar grasper in the left hand, and the prograsp in the 4th arm. We then further mobilized the right Ureter and dissected this down to the bladder. Once the bladderwas visualized a 2cm incision was made adjacent to the right ureter to begin the bladder cuff. A marking 3-0 vicryl stitch was placed on either end of the cystotomy to aid in retraction. The right ureteral orifice was identified and the remaining ureter and bladder cuff were fully excised. The bladder mucosa and muscle were closed with V-lock suture in a running fashion. The bladder was filled with 250cc of sterile saline via the indwelling ramos catheter and this was found to be water tight cosure. The bladder was emptied and the posterior bladder peritoneum was closed as a second layer overthe defect. Meticulous hemostasis was achieved, and confirmed with a desufflated abdomen. A large endocatch bagwas place through the lower abdominal port site under vision where the en block right kidney, ureter, and bladder cuff were then secured in in the specimen bag and brought out the right lower quadrant port site. A 19 terra drain was inserted into the right pelvis and brought out the the right abdominal port site and secured with 2-0 prolene. A Uziel Tompson was used to close the 12mm port site fascia with 3-0 vicryl to good effet. At this time, the ports were removed under vision. The specimenwas extracted through the midline portside which was extended to accommodate the kidney. This incision was extended laterally through the rectus muscle and posterior sheath. The specimen was fully removed without difficulty. The peritoneum, rectus, and fascia were re approximated with interrupted figure of 8 2-0 vicryl in three layers. Campers fascia was re approximated with 3-0 vicryl. All skin incisions were closed with 4-0 monocryl suture and dermabond was applied. The patient was woken and brought to the PACU in stable condition. She tolerated the procedure well. Dr. Epps was present for the procedure. Infection Bundle used? No Associated attestation - Yartiza Epps MD - 11/04/2016 1:33 PM EDT Attestation: Case Date: 11/02/2016 - 11/03/2016 I performed the procedure with the assistance of the resident. I performed or directly supervised all critical aspects. Notes: Exceptionally difficult surgery due to patients morbid [...] well preserved ~ 10cm cystotomy closed primarily YARITZA EPPS MD 11/04/2016 documented in this encounter Plan of Treatment Not on file documented as of this encounter Procedures Procedure Name Priority Date/Time Associated Diagnosis Comments HEMOGRAM Timed 11/05/2016 2:10 AM EDT DIFFERENTIAL, AUTOMATED Timed 11/06/19 17 2:10 AM EDT CBC (WITH DIFF) Timed 11/05/2016 2:10 AM EDT BASIC METABOLIC PANEL (NON-FASTING) Timed 11/05/2016 2:10 AM EDT HEMOGRAM Timed 11/04/2016 5:00 AM EDT DIFFERENTIAL, AUTOMATED Timed 11/05/19 17 5:00 AM EDT CBC (WITH DIFF) Timed 11/04/2016 5:00 AM EDT BASIC METABOLIC PANEL (NON-FASTING) Timed 11/04/2016 5:00 AM EDT HEMOGRAM Routine 11/03/2016 7:45 AM EDT DIFFERENTIAL, AUTOMATED Routine 11/04/19 17 7:45 AM EDT CBC (WITH DIFF) Routine 11/03/2016 7:45 AM EDT BASIC METABOLIC PANEL (NON-FASTING) Routine 11/03/2016 7:45 AM EDT LAPAROSCOPIC,EXTENSIVE LYSIS ADHESIONS Routine 11/02/2016 10:46 PM EDT Ureteral mass Ureteral cancer, right SPECIMEN TO PATHOLOGY Routine 11/02/2016 10:32 PM EDT SURGICAL PATHOLOGY REPORT Routine 2016 6:29 PM EDT SPECIMEN TO PATHOLOGY Routine 11/02/2016 6:29 PM EDT LAPAROSCOPIC, EXTENSIVE LYSIS ADHESIONS (WRVU 15.67) 11/02/2016 2:41 PM EDT Ureteral mass Ureteral cancer, right MODIFIER ROBOT,DAVINCI XI 2016 2:41 PM EDT Ureteral mass Ureteral cancer, right @ROBOTIC LAPAROSCOPY TOTAL NEPHROURETERECTOMY (WRVU 25.36) 11/02/2016 2:41 PM EDT Ureteral mass Ureteral cancer, right documented in this encounter Results * XR Fluoro Cystogram (11/21/2016 9:55 AM EDT) Anatomical Region Laterality Modality N/A Radio Fluoroscop y Impressions 11/21/2016 11:46 AM EDT No bladder leak. Results discussed with Dr. Yaritza Epps by Dr. Kohler. I have personally reviewed the image(s) and the residents interpretation and agree with the findings, Eunice Kohler MD at 11/21/2016 11:46 AM Narrative 11/21/2016 11:46 AM EDT EXAMINATION: XR FLUORO CYSTOGRAM CLINICAL HISTORY: Evaluate for leak s/p nephroureterectomy 02 Nov 2016 TECHNIQUE: Heating Worker radiograph of the pelvis was performed prior [...] FLUOROSCOPY TIME: 1.37 minutes COMPARISON: None FINDINGS: Heating Worker view: Follicular balloon projects over the expected location of the urinary bladder. Surgical clips are injected over in the right lower quadrant and left hemisacrum. There is stool throughout the colon included in the imaging [id number] down to the level of the rectum. [...] leak s/p nephroureterectomy 02 Nov 2016 TECHNIQUE: Heating Worker radiograph of the pelvis was performed prior [...] FLUOROSCOPY TIME: 1.37 minutes COMPARISON: None FINDINGS: Heating Worker view: Follicular balloon projects over the expected location ofthe urinary bladder. Surgical clips are injected over in the right lowerquadrant and left hemisacrum. There is stool throughout the colon included in theimaging [id number] down to the level of the rectum. [...] No bladder leak. Results discussed with Dr. Yaritza Epps by Dr. Kohler. I have personally reviewed the image(s) and the residents interpretationand agree with the findings, Eunice Kohler MD at 11/21/2016 11:46 AM Yaritza Epps MD IMG FLUORO ORDERABLE S * Differential, Automated (11/05/2016 2:10 AM EDT) Neutrophils % 68.2 % [facility] Neutr Abs (ANC) 4.80 1.70 - 6.10 x10(3)/[facility] Lymphocytes % 20.0 % [facility] Lymphocytes Abs 1.4 0.9 - 3.2 x10(3)/[facility] Monocytes % 8.4 % [facility] Monocyte Abs 0.6 0.3 - 0.9 x10(3)/[facility] Eosinophils % 2.7 % [facility] Eosinophils Abs 0.2 0.0 - 0.4 x10(3)/[facility] Basophils % 0.4 % [facility] Basophils Abs 0.0 0.0 - [...] - 0.04 x10(3)/[facility] Blood specimen (specimen) 11/05/2016 2:10 AM EDT 11/05/2016 2:19 AM EDT Narrative Resulting Agency Comment Spec In Lab Yaritza Epps MD HEMATOLOGY ORDERABLE S [facility] [place] [address] * (ABNORMAL) Hemogram (11/05/2016 2:10 AM EDT) WBC 7.0 4.0 - 9.5 x10(3)/[facility] RBC 3.63(L) 4.00 - 5.21 x10(6)/[facility] Hemoglobin 10.7(L) 11.7 - 15.5 gm/dL [facility] Hematocrit 32.3(L) 35.7 - 45.8 % [facility] MCV 89.0 82.6 - 94.4 fL [facility] MCH 29.5 27.1 - 32.0 pg [facility] MCHC 33.1 31.7 - 35.0 gm/dL [facility] Platelets 174 145 - 357 x10(3)/[facility] RDWSD 46.1(H) 37.0 - 46.0 [facility] RDWCV 14.2(H) 11.5 - 14.1 % [facility] MPV 11.4 7.6 - 12.9 [facility] nRBC % Auto 0.0 % [facility] nRBC Abs Auto 0.000 0.000 - 0.000 x10(3)/[facility] Blood specimen (specimen) 11/05/2016 2:10 AM EDT 11/05/2016 2:19 AM EDT Narrative Resulting Agency Comment Spec In Lab Yaritza Epps MD HEMATOLOGY ORDERABLE S [facility] [place] [address] * (ABNORMAL) Basic Metabolic Panel (non-fasting) (11/05/2016 2:10 AM EDT) Glucose Lvl 101 65 - 199 mg/dL [facility] Comment:Diabetes: >=200 mg/d L plus symptoms BUN 12 8 - 18 mg/dL [facility] Creatinine 1.16 0.70 - 1.20 mg/dL [facility] Comment: Please note that the pediatric reference intervals supplied above were not validated at [facility] [place]. Results from pediatric patients should be interpreted in conjunction to the patient's age, height and muscle mass. Sodium 139 135 - 145 mmol/L [facility] Potassium 3.3(L) 3.5 - 5.0 mmol/L [facility] [...] 15 mmol/L [facility] Calcium 8.1(L) 8.5 - 10.5 mg/dL [facility] Estimated GFR 46(L) >=60 [facility] Comment: This estimated GFR (eGFR) value was calculated using the MDRD equation which has been validated on patients between the ages of 18 and 70. The MDRD should not be used to assess kidney function in patients < 18 years of age or in patients with extremes of body mass, or in patients with acute kidney failure. This value should be multiplied by 1.2 for patients. For further information please copy and paste the following links into your internet browser. [email or web address] Blood specimen (specimen) 11/05/2016 2:10 AM EDT 11/05/2016 2:19 AM EDT Narrative Resulting Agency Comment Spec In Lab Yaritza Epps MD CHEMISTRY ORDERABLES [facility] [place] [address] * Differential, Automated (11/04/2016 5:00 AM EDT) Neutrophils % 73.7 % [facility] Neutr Abs (ANC) 5.90 1.70 - 6.10 x10(3)/[facility] Lymphocytes % 17.7 % [facility] Lymphocytes Abs 1.4 0.9 - 3.2 x10(3)/[facility] Monocytes % 7.7 % [facility] Monocyte Abs 0.6 0.3 - 0.9 x10(3)/[facility] Eosinophils % 0.5 % [facility] Eosinophils Abs 0.0 0.0 - 0.4 x10(3)/[facility] Basophils % 0.2 % [facility] Basophils Abs 0.0 0.0 - 0.1 x10(3)/[facility] Immature Gran % 0.20 % [...] - 0.04 x10(3)/[facility] Blood specimen (specimen) 11/04/2016 5:00 AM EDT 11/04/2016 5:12 AM EDT Narrative Resulting Agency Comment Spec In Lab Yaritza Epps MD HEMATOLOGY ORDERABLE S [facility] [place] [address] * (ABNORMAL) Hemogram (11/04/2016 5:00 AM EDT) WBC 8.0 4.0 - 9.5 x10(3)/[facility] RBC 3.99(L) 4.00 - 5.21 x10(6)/[facility] Hemoglobin 11.6(L) 11.7 - 15.5 gm/dL [facility] Hematocrit 35.0(L) 35.7 - 45.8 % [facility] MCV 87.7 82.6 - 94.4 fL [facility] MCH 29.1 27.1 - 32.0 pg [facility] MCHC 33.1 31.7 - 35.0 gm/dL [facility] Platelets 197 145 - 357 x10(3)/[facility] RDWSD 45.5 37.0 - 46.0 [facility] RDWCV 14.1 11.5 - 14.1 % [facility] MPV 11.3 7.6 - 12.9 [facility] nRBC % Auto 0.0 % [facility] nRBC Abs Auto 0.000 0.000 - 0.000 x10(3)/[facility] Blood specimen (specimen) 11/04/2016 5:00 AM EDT 11/04/2016 5:12 AM EDT Narrative Resulting Agency Comment Spec In Lab Yaritza Epps MD HEMATOLOGY ORDERABLE S [facility] [place] [address] * (ABNORMAL) Basic Metabolic Panel (non-fasting) (11/04/2016 5:00 AM EDT) Glucose Lvl 112 65 - 199 mg/dL [facility] Comment:Diabetes: >=200 mg/d L plus symptoms BUN 13 8 - 18 mg/dL [facility] Creatinine 1.18 0.70 - 1.20 mg/dL [facility] Comment: Please note that the pediatric reference intervals supplied above were not validated at [facility] [place]. Results from pediatric patients should be interpreted in conjunction to the patient's age, height and muscle mass. Sodium 144 135 - 145 mmol/L [facility] Potassium 3.5 3.5 - 5.0 mmol/L [facility] Comment: Please note: ??Patients with WBC >100,000 may have falsely elevated Potassium levels. ??For accurate Potassium quantification in these patients send serum separator tube (gold top) for subsequent determinations. ??Contact the Clinical Chemistry Laboratory if there are any questions. Chloride 105 98 - 107 mmol/L [facility] CO2 26 22 - 31 mmol/L [facility] Anion Gap 13 5 - 15 mmol/L [facility] Calcium 8.3(L) 8.5 - 10.5 mg/dL [facility] Estimated GFR 45(L) >=60 [facility] Comment: This estimated GFR (eGFR) value was calculated using the MDRD equation which has been validated on patients between the ages of 18 and 70. The MDRD should not be used to assess kidney function in patients < 18 years of age or in patients with extremes of body mass, or in patients with acute kidney failure. This value should be multiplied by 1.2 for patients. For further information please copy and paste the following links into your internet browser. [email or web address] Blood specimen (specimen) 11/04/2016 5:00 AM EDT 11/04/2016 5:12 AM EDT Narrative Resulting Agency Comment Spec In Lab Yaritza Epps MD CHEMISTRY ORDERABLES [facility] [place] [address] * (ABNORMAL) Differential, Automated (11/03/2016 7:45 AM EDT) Neutrophils % 87.5 % [facility] Neutr Abs (ANC) 8.12(H) 1.70 - 6.10 x10(3)/mc L [facility] Lymphocytes % 7.4 % [facility] Lymphocytes Abs 0.7(L) 0.9 - 3.2 x10(3)/mc L [facility] Monocytes % 4.6 % [facility] Monocyte Abs 0.4 0.3 - 0.9 x10(3)/[facility] Eosinophils % 0.0 % [facility] Eosinophils Abs 0.0 0.0 - 0.4 x10(3)/[facility] Basophils % 0.0 % [facility] Basophils Abs 0.0 0.0 - 0.1 x10(3)/[facility] Immature Gran % 0.50 % [facility] Comment: Immature granulocytes(IG's)percentage and absolute count will include metamyelocytes, myelocytes, and promyelocytes. Blood smears from CBCs yielding IG's will be scanned manually for concordance. If this scan disagrees with the automated IG or if promyelocytes are noted, a manual differential will be performed. Shoshana Gran Abs 0.05(H) 0.00 - 0.04 x10(3)/[facility] Blood specimen (specimen) 11/03/2016 7:45 AM EDT 11/03/2016 7:56 AM EDT Narrative Resulting Agency Comment Spec In Lab Yaritza Epps MD HEMATOLOGY ORDERABLE S [facility] [place] [address] * Hemogram (11/03/2016 7:45 AM EDT) WBC 9.3 4.0 - 9.5 x10(3)/[facility] RBC 4.34 4.00 - 5.21 x10(6)/[facility] Hemoglobin 12.4 11.7 - 15.5 gm/dL [facility] Hematocrit 38.6 35.7 - 45.8 % [facility] MCV 88.9 82.6 - 94.4 fL [facility] MCH 28.6 27.1 - 32.0 pg [facility] MCHC 32.1 31.7 - 35.0 gm/dL [facility] Platelets 202 145 - 357 x10(3)/[facility] RDWSD 45.1 37.0 - 46.0 [facility] RDWCV 13.7 11.5 - 14.1 % [facility] MPV 11.6 7.6 - 12.9 [facility] nRBC % Auto 0.0 % [facility] nRBC Abs Auto 0.000 0.000 - 0.000 x10(3)/[facility] Blood specimen (specimen) 11/03/2016 7:45 AM EDT 11/03/2016 7:56 AM EDT Narrative Resulting Agency Comment Spec In Lab Yaritza Epps MD HEMATOLOGY ORDERABLE S Performing Organization Address City/State/[place] Co de Phone Number [facility] [place] [address] * (ABNORMAL) Basic Metabolic Panel (non-fasting) (11/03/2016 7:45 AM EDT) Glucose Lvl 172 65 - 199 mg/dL [facility] Comment:Diabetes: >=200 mg/d L plus symptoms BUN 18 8 - 18 mg/dL [facility] Creatinine 1.33(H) 0.70 - 1.20 mg/dL [facility] Comment: Please note that the pediatric reference intervals supplied above were not validated at [facility] [place]. Results from pediatric patients should be interpreted in conjunction to the patient's age, height and muscle mass. Sodium 139 135 - 145 mmol/L [facility] [...] 107 mmol/L [facility] CO2 28 22 - 31 mmol/L [facility] Anion Gap 11 5 - 15 mmol/L [facility] Calcium 8.7 8.5 - 10.5 mg/dL [facility] Estimated GFR 39(L) >=60 [facility] Comment: This estimated GFR (eGFR) value was calculated using the MDRD equation which has been validated on patients between the ages of 18 and 70. The MDRD should not be used to assess kidney function in patients < 18 years of age or in patients with extremes of body mass, or in patients with acute kidney failure. This value should be multiplied by 1.2 for patients. For further information please copy and paste the following links into your internet browser. [email or web address] Blood specimen (specimen) 11/03/2016 7:45 AM EDT 11/03/2016 7:56 AM EDT Narrative Resulting Agency Comment Spec In Lab Yaritza Epps MD CHEMISTRY ORDERABLES Performing Organization Address [facility]/[place] Co de Phone Number [facility] [place] [address] * Specimen to Pathology (surgical or derm) (11/02/2016 10:32 PM EDT) AP Specimen 11/02/2016 10:3 2 PM EDT 11/02/2016 10:32 PM EDT Narrative [facility] - 11/02/2016 10:32 PM EDT Specimen requisition ordered. ??Separate Pathology report to follow Yaritza Epps MD PATHOLOGY/CYTOLOGY O RDERABLES Performing Organization Address [facility]/[place] Co de Phone Number [facility] [place] [address] * Surgical Pathology Report (11/02/2016 6:29 PM EDT) FINAL DIAGNOSIS (AP) ?Location: 2WST; 0209; A The signing pathologist has (i) examined the relevant preparation(s) for the specimen(s) and (ii) rendered or confirmed the diagnosis(es). . ?Surgical Pathology DIAGNOSIS A - Lymph nodes attached to iliac vessels, excision: ?Metastatic carcinoma involving matted lymph nodes and ?extranodal adipose tissue (approximately 1/2 positive ?lymph nodes). B - Right kidney and ureter, resection: ?1. High-grade urothelial carcinoma invading ? into the lamina propria and muscularis propria, ? distal ureter, 4.0 cm in diameter, associated ? with CIS (see Synoptic Report). ?2. Bladder cuff margin free of tumor and CIS. ?3. Three additional separate foci of high-grade urothelial ? carcinoma, (two midureter and one proximal ureter ? adjacent to renal pelvis). ? a. Proximal ureteral tumor invades through the muscularis ?propria, extends into the adjacent adipose tissue, and ?involves the inked hayley-ureteral soft tissue margin. ? b. Perineural and vascular invasion identified (proximal ?ureter). ?4. One lymph node, no evidence of malignancy (0/1). ?5. Hydronephrosis and hydroureter. ?6. Chronic pyelonephritis and ureteritis. SYNOPTIC REPORT Specimen ? Procedure: ??Nephroureterect heike, complete ? Specimen Laterality: ?? Right ? Tumor Size: ?? 4.0 cm Tumor ? Invasive Histologic Type: ?? Urothelial (transitional cell) carcinoma ? Histologic Grade: ?? High-grade Extent ? Microscopic Tumor Extension: ?? Tumor invades beyond muscularis into peripelvic ?fat or the renal parenchyma Margins ? Margin Involvement: ?? Margins(s) involved by carcinoma in situ / noninvasive ?high-grade urothelial carcinoma ?Margin(s): ??Periureteral soft tissue near renal pelvis Accessory Findings ? Lymph-Vascular Invasion: ?? Present ? Tumor Configuration: ?? Solid / nodule Lymph Nodes ? Number of Lymph Nodes Examined: ?? 3 ? Number of Lymph Nodes Involved: ?1 Stage (pTNM) ? Primary Tumor (pT): ?? pT3: Tumor invades beyond muscularis into peripelvic fat ?or the renal parenchyma ? Regional Lymph Nodes (pN): ?? pN2: Metastasis in a single regional lymph node, ?more than 2 cm but not more than 5 cm in greatest dimension, or multiple ?lymph nodes, none more than 5 cm in greatest dimension ? Distant Metastasis (pM): ?? Not applicable Additional Non-Tumor . DIAGNOSIS ? Additional Pathologic Findings: ?? Main tumor mass, distal ureter; three ?additional tumor nodules midureter (2) and proximal ureter (1) adjacent to ?renal pelvis ? Pathologic Findings In Ipsilateral Non-Neoplastic Renal Tissue: ? Hydronephrosis and chronic pyelonephritis and ureteritis Tumor Block(s): ?? B1, B10, B14 Normal Block(s): ?? B23 CAP eCC August 2015 Annual Release Electronically signed by: ??Ezio KWOK, Hank Ford Verified: ??11/10/2016 ?Pathologist DISCUSSION Scanned slides: [id number] ?? A3-1 [id number] ?? A4-1 [id number] ?? B1-1 CLINICAL INFORMATION Specimen Submitted: A - Lymph nodes attached to iliac vessels B - Right kidney and ureter Clinical History: Right ureteral cancer Clinical Diagnosis: Same SPECIMEN PROCESSING A - ??Labeled/Fixativ e: Lymph nodes attached to iliac vessels, fresh. Quantity/Size: Multiple, 5.0 x 2.5 x 1.5 cm, in aggregate. Tissue Description: Yellow, lobular adipose tissue. Sectioning reveals at least 2 lymph nodes, the largest 5 cm, partially disrupted, and tortuous (may represent multiple matted nodes). Sections/Processi ng: (1-6) largest node serially sectioned; (7-9) one lymph node, serially sectioned; (10) adipose tissue, differentially inked. (R10) B - Labeled/Fixative: Right kidney and ureter, fresh. Qty/Size/Weight: Single, 21.0 x 9.0 x 4.5 cm, with an 18.5 x 2.0 x 1.5 cm ureter and attached soft tissue, including terminal bladder cuff, 442.0 grams overall. SPECIMEN DESCRIPTION Resection Specimen: Intact radical right nephro-ureterecto my. LESION Location: Four discrete tumor deposits within the ureter, beginning approximately 3.0 cm from the renal pelvis. Tumor deposition locations as follow - (#1, 3-7 cm), (#2, 13-14 cm), (#3, 17-19 cm), and (#4, 20-24 cm). Size: Tumor sizes as follow -(#1, 4.0 x 1.5 x 1.3 cm), (#2, 1.2 x 1 x 0.5 cm), (#3, 2.0 x 1.3 x 0.8 cm), and (#4, 4.0 x 1.7 x 1.5 cm). Color: Jasnen. Consistency: Firm. Contour: Lobulated, nodular masses with variably firm to granular surfaces. Direct Extension: The kidney itself appears uninvolved by tumor. The most proximal tumor deposit (#1) directly invades through the ureter into the surrounding adipose tissue and appears to grossly involve the serosa, a length of blood vessel, and the soft tissue margin of resection in this area. This area of involvement is also significantly stenosed. The most distal tumor deposit (#4) extends into the lumen of the bladder cuff. All presumptively involved surfaces and surgical margins are inked blue prior to sectioning. Focality: Multifocal. . SPECIMEN PROCESSING Capsule: Uninvolved. Gerota 's Fascia: Involved. Pelvis: Appears uninvolved. Margins: Appears to involve soft tissue margin at tumor deposit #1. Tumor protruding into bladder cuff space (B1). The terminal end of the ureter is then transected and submitted in radial sections (B2-9). Upon sectioning, the tumor appears to simply bulge out of the ureter, with actual mucosal attachments only as close as 0.8 cm to the margin of resection. However, there are smaller studs of tumor that appear to reside within 0.3 cm of the bladder cuff resection. KIDNEY Size: 10.0 x 6.5 x 2.7 cm. Parenchyma: There is severe atrophy of the renal parenchyma due to considerable hydronephrosis. The renal cortex ranges from 0.1-0.5 cm. Ureter: 18.5 x 2 x 1.5 cm, with lesions as described above. The uninvolved mucosa exhibits focal petechial hemorrhages. Vein: 0.8 cm; unremarkable. OTHER Adrenal: Not identified. Lymph Nodes: None identified. Sections: (1) tumor in lumen of bladder cuff; (2-9) ureter to bladder cuff, radial sections; (10-11) tumor deposit #4, medical collections representative transverse sections; (12) tumor deposit #3, medical collections representative transverse section; (13) tumor deposit #2, medical collections representative transverse section; (14) tumor deposit #1 to serosa/soft tissue margin; (15-16) tumor deposit #1 to blood vessel and soft tissue; (17-18) tumor deposit #1 to serosa; (19) medical collections representative kidney; (20) kidney vascular margin; (21) ureter between tumor deposits #3 and #2; (22) ureter between tumor deposits #2 and #1; (23) additional kidney. (R23) ams/pps 11/10/2016 1:38 PM EDT [facility] SPECIMEN FROM KIDNEY / Unknown 11/02/2016 6:29 PM EDT 11/02/2016 6:29 PM EDT SPECIMEN FROM KIDNEY / Unknown 11/02/2016 6:29 PM EDT 11/02/2016 6:29 PM EDT Yaritza Epps MD PATHOLOGY/[place] [address] * Specimen to Pathology (surgical or derm) (11/02/2016 6:29 PM EDT) AP Specimen 11/02/2016 6:29 PM EDT 11/02/2016 6:29 PM EDT Narrative [facility] - 11/02/2016 6:29 PM EDT Specimen requisition ordered. 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, right documented in this encounter Admitting Diagnoses Diagnosis Ureteral cancer Malignant neoplasm of ureter documented in this encounter Administered Medications Inactive Administered Medications - up to 3 most recent administrations Medication Order MAR Action Action Date Dose Rate Site acetaminophen (TYLENOL) tablet 650 mg 650 mg, Oral, EVERY 8 HOURS, First dose (after last modification) on Chloe 11/03/16 at 0900, Until Discontinued, Maximum dose of acetaminophen is 4000 mg from all sources in 24 hours., Routine Given 11/06/2016 8:00 AM EDT 650 mg Given 11/06/2016 12:26 AM EDT 650 mg Given 11/05/2016 5:19 PM EDT 650 mg aspirin EC tablet 81 mg 81 mg, Oral, DAILY, First dose on Chloe 11/03/16 at 0900, Until Discontinued, Routine Given 11/05/2016 8:24 PM EDT 81 mg Given 11/03/2016 9:54 AM EDT 81 mg atenolol (TENORMIN) tablet 25 mg 25 mg, Oral, 2 TIMES DAILY, First dose on Chloe 11/03/16 at 0900, Until Discontinued, Please hold for SBP<90mmhg and/or HR<60bmp. Thank you. Given 11/06/2016 8:01 AM EDT 25 mg Given 11/05/2016 8:24 PM EDT 25 mg Given 11/05/2016 8:51 AM EDT 25 mg calcium carbonate (TUMS) chewable tablet 500-1,000 mg 500-1,000 mg, Oral, EVERY 4 HOURS PRN, Starting on Mon11/04/16 at 0703, Until Mon11/06/16 at 1329, Heartburn, Give 500 mg (1 tablet) for mild to moderate heartburn. Give 1,000 mg (2 tablets) for severe heartburn., Routine docusate sodium (COLACE) capsule 100 mg 100 mg, Oral, 2 TIMES DAILY, First dose on Mon11/03/16 at 0900, Until Discontinued, Routine Given 11/06/2016 8:01 AM EDT 100 mg Given 11/05/2016 8:24 PM EDT 100 mg Given 11/05/2016 8:52 AM EDT 100 mg heparin (porcine) subcutaneous injection 5,000 Units 5,000 Units, Subcutaneous, EVERY 8 HOURS SCHEDULED, First dose on Mon11/03/16 at 0000, Until Discontinued, Routine Given 11/06/2016 5:39 AM EDT 5,000 Unit s Given 11/05/2016 9:20 PM EDT 5,000 Units Given 11/05/2016 1:36 PM EDT 5,000 Units hydroCHLOROthiazide (HYDRODIURIL) tablet 25 mg 25 mg, Oral, DAILY, First dose on Mon11/03/16 at 1200, Until Discontinued, STAT Given 11/06/2016 8:01 AM EDT 25 mg Given 11/05/2016 8:51 AM EDT 25 mg Given 11/04/2016 8:37 AM EDT 25 mg HYDROmorphone (DILAUDID) injection 0.2 mg 0.2 mg, Intravenous, EVERY 2 HOURS PRN, Starting on Mon11/02/16 at 2333, Until Mon11/06/16 at 1329, Pain, Routine Given 11/03/2016 10:57 AM EDT 0.2 mg Left Arm HYDROmorphone (DILAUDID) syringe 0.2-0.4 mg 0.2-0.4 mg, Intravenous, EVERY 5 MIN PRN, Pain, Starting on Mon11/02/16 at 2332, Until Mon11/03/16 at 0716, For moderate pain (4-6) give: 0.2 mg every 5 minute prn For severe pain (7-10) give: 0.4 mg every 5 minutes prn Maximum dose: 4 mg per hour Hold for respiratory rate less than 10 per minute., PACU Recovery Given 11/03/2016 12:35 AM EDT 0.4 mg Given 11/03/2016 12:22 AM EDT 0.4 mg Given 11/03/2016 12:00 AM EDT 0.4 mg lactobacillus (BACID) tablet 1 tablet 1 tablet, Oral, DAILY, First dose on Mon11/04/16 at 0900, Until Discontinued, Routine Given 11/06/2016 8:01 AM EDT 1 tablet Given 11/05/2016 8:51 AM EDT 1 tablet Given 11/04/2016 4:09 PM EDT 1 tablet ondansetron (ZOFRAN) injection 4 mg 4 mg, Intravenous, EVERY 30 MIN PRN, Starting on 11/02/16 at 2332, Until Chloe 11/03/16 at 0716, Nausea, May repeat 4 mg once in 30 minutes. If multiple antiemetics ordered, use ondansetron first and if ineffective use prochlorperazine second and if ineffective use promethazine, PACU Recovery Given 11/03/2016 1:05 AM EDT 4 mg ondansetron (ZOFRAN) injection 4 mg 4 mg, Intravenous, EVERY 8 HOURS PRN, Starting on Chloe 11/03/16 at 0033, Until 11/06/16 at 1329, Nausea, May repeat times one in 30 minutes if ineffective. If multiple antiemetics are ordered, use ondansetron first., Recovery (Recovery-Hospital Unit) Given 11/03/2016 3:17 PM EDT 4 mg ondansetron (ZOFRAN) tablet 4 mg 4 mg, Oral, EVERY 8 HOURS PRN, Starting on Chloe 11/03/16 at 0033, Until 11/06/16 at 1329, Nausea, Vomiting, If multiple antiemetics are ordered, use ondansetron first. PO Preferred. If patient unable to take PO, may give IV if ordered. May repeat times one in 45 minutes if ineffective., Recovery (Recovery-Hospital Unit), Routine oxyCODONE (ROXICODONE) immediate release tablet 10 mg 10 mg, Oral, EVERY 4 HOURS PRN, Starting on Mon11/02/16 at 2333, Until 11/06/16 at 1329, Pain, severe pain (7-10), May give an additional 5 mg in 30 minutes once if pain not relieved., Routine Given 11/03/2016 3:17 PM EDT 10 mg oxyCODONE (ROXICODONE) immediate release tablet 5 mg 5 mg, Oral, EVERY 4 HOURS PRN, Starting on Mon11/02/16 at 2333, Until 11/06/16 at 1329, Pain, mild to moderate pain (1-6), May give an additional 5 mg in 30 minutes once if pain not relieved., Routine Given 11/04/2016 5:48 AM EDT 5 mg Given 11/03/2016 10:26 PM EDT 5 mg Given 11/03/2016 11:30 AM EDT 5 mg pantoprazole (PROTONIX) injection 40 mg 40 mg, Intravenous, DAILY, First dose on Mon11/04/16 at 0730, Until Discontinued Given 11/06/2016 8:00 AM EDT 40 mg Given 11/05/2016 8:52 AM EDT 40 mg Given 11/04/2016 8:37 AM EDT 40 mg simvastatin (ZOCOR) tablet 10 mg 10 mg, Oral, EVERY EVENING, First dose on Mon11/03/16 at 1700, Until Discontinued Given 11/05/2016 8:24 PM EDT 10 mg Given 11/04/2016 4:09 PM EDT 10 mg Given 11/03/2016 6:32 PM EDT 10 mg sodium chloride 0.9 % flush 5 mL 5 mL, Intravenous, 2 TIMES DAILY, First dose on Mon11/03/16 at 0900, Until Discontinued, Recovery (Recovery-Hospital Unit), Routine Given 11/06/2016 8:02 AM EDT 5 mLs Given 11/05/2016 8:25 PM EDT 5 mLs Given 11/05/2016 8:52 AM EDT 5 mLs sodium chloride 0.9% infusion 1,000 mL, at 100 mL/hr, Intravenous, CONTINUOUS, Starting on Chloe 11/03/16 at 0000, Until 11/05/16 at 0819, Recovery (Recovery-Hospital Unit) New Bag 11/05/2016 3:17 AM EDT 1,000 mLs 100 mL/hr New Bag 11/02/2016 11:51 PM EDT 1,000 mLs 100 mL/hr sodium chloride 0.9% infusion 1,000 mL, at 10 mL/hr, Intravenous, CONTINUOUS, Starting on 11/05/16 at 0845, Until 11/05/16 at 1730, Recovery (Recovery-Hospital Unit) Rate/Dose Change 11/05/2016 8:53 AM EDT 1,000 mLs 10 mL/hr documented in this encounter Active and Recently Administered Medications Times are shown in EDT. Scheduled Medication Order 11/04/2016 11/05/2016 11/06/2016 acetaminophen (TYLENOL) tablet 650 mg 650 mg, Oral, EVERY 8 HOURS, First dose (after last modification) on Chloe 11/03/16 at 0900, Until Discontinued, Maximum dose of acetaminophen is 4000 mg from all sources in 24 hours., Routine 0100 (Hold - Provider: Christine Kathleen RN - Reason: Patient Unable)0838 (Given - Provider: Angelique Cruz RN)1608 (Given - Provider: Angelique Cruz RN) 0002 (Given - Provider: Odalis Riggins RN)0851 (Given - Provider: Kenyatta Spencer, LOIS)1719 (Given - Provider: Kenyatta Spencer, LOIS) 0026 (Given - Provider: Rita Jim, LOIS)0800 (Given - Provider: Kenyatta Spencer, LOIS) aspirin EC tablet 81 mg 81 mg, Oral, DAILY, First dose on Chloe 11/03/16 at 0900, Until Discontinued, Routine 0900 (Not Given - Provider: Angelique Cruz RN - Reason: Patient/family refused - Comment: takes at night) 2023 (Given - Provider: Rita Jim, LOIS) atenolol (TENORMIN) tablet 25 mg 25 mg, Oral, 2 TIMES DAILY, First dose on Chloe 11/03/16 at 0900, Until Discontinued, Please hold for SBP<90mmhg and/or HR<60bmp. Thank you. 0837 (Given - Provider: Angelique Cruz RN)2100 (Given - Provider: Odalis Riggins RN) 0851 (Given - Provider: Kenyatta Spencer RN)2023 (Given - Provider: Rita Jim RN) 0801 (Given - Provider: Kenyatta Spencer, LOIS) docusate sodium (COLACE) capsule 100 mg 100 mg, Oral, 2 TIMES DAILY, First dose on Mon11/03/16 at 0900, Until Discontinued, Routine 0837 (Given - Provider: Angelique Cruz RN)2100 (Given - Provider: Odalis Riggins RN) 0852 (Given - Provider: Kenyatta Spencer RN)202 (Given - Provider: Rita Jim RN) 0801 (Given - Provider: Kenyatta Spencer RN) heparin (porcine) subcutaneous injection 5,000 Units 5,000 Units, Subcutaneous, EVERY 8 HOURS SCHEDULED, First dose on Mon11/03/16 at 0000, Until Discontinued, Routine 0549 (Given - Provider: Christine Kathleen RN)1608 (Given - Provider: Angelique Cruz RN)2200 (Given - Provider: Odalis Riggins RN) 0544 (Given - Provider: Odalis Riggins RN)1336 (Given - Provider: Kenyatta Spencer, LOIS)2120 (Given - Provider: Rita Jim, LOIS) 0539 (Given - Provider: Rita Jim RN) hydroCHLOROthiazide (HYDRODIURIL) tablet 25 mg 25 mg, Oral, DAILY, First dose on Mon11/03/16 at 1200, Until Discontinued, STAT 0837 (Given - Provider: Angelique Cruz RN) 0851 (Given - Provider: Kenyatta Spencer RN) 0801 (Given - Provider: Kenyatta Spencer RN) lactobacillus (BACID) tablet 1 tablet 1 tablet, Oral, DAILY, First dose on Mon11/04/16 at 0900, Until Discontinued, Routine 1609 (Given - Provider: Angelique Cruz RN) 0851 (Given - Provider: Kenyatta Spencer RN) 0801 (Given - Provider: Kenyatta Spencer RN) pantoprazole (PROTONIX) injection 40 mg 40 mg, Intravenous, DAILY, First dose on Mon11/04/16 at 0730, Until Discontinued 0837 (Given - Provider: Angelique Cruz RN) 0852 (Given - Provider: Kenyatta Spencer, RN) 0800 (Given - Provider: Kenyatta Spencer, RN) simvastatin (ZOCOR) tablet 10 mg 10 mg, Oral, EVERY EVENING, First dose on Chloe 11/03/16 at 1700, Until Discontinued 1609 (Given - Provider: Angelique Cruz, RN) 2023 (Given - Provider: Rita Jim, RN) sodium chloride 0.9 % flush 5 mL 5 mL, Intravenous, 2 TIMES DAILY, First dose on Chloe 11/03/16 at 0900, Until Discontinued, Recovery (Recovery-Hospital Unit), Routine 0838 (Given - Provider: Angelique Cruz, RN)2100 (Given - Provider: Odalis Riggins, LOIS) 0852 (Given - Provider: Kenyatta Spencer, LOIS)2024 (Given - Provider: Rita Jim, RN) 0802 (Given - Provider: Kenyatta Spencer, RN) Continuous Medication Order 11/04/2016 11/05/2016 11/06/2016 sodium chloride 0.9% infusion (CANCELED) 1,000 mL, at 100 mL/hr, Intravenous, CONTINUOUS, Starting on Chloe 11/03/16 at 0000, Until 11/05/16 at 0819, Recovery (Recovery-Hospital Unit) 0317 (New Bag - Provider: Kaylie Riggins RN) sodium chloride 0.9% infusion (CANCELED) 1,000 mL, at 10 mL/hr, Intravenous, CONTINUOUS, Starting on 11/05/16 at 0845, Until 11/05/16 at 1730, Recovery (Recovery-Hospital Unit) 0853 (Rate/Dose Change - Provider: Kenyatta Spencer, LOIS)1737 (Stopped - Provider: Kenyatta Spencer, RN) PRN Medication Order 11/04/2016 11/05/2016 11/06/2016 calcium carbonate (TUMS) chewable tablet 500-1,000 mg 500-1,000 mg, Oral, EVERY 4 HOURS PRN, Starting on Mon11/04/16 at 0703, Until 11/06/16 at 1329, Heartburn, Give 500 mg (1 tablet) for mild to moderate heartburn. Give 1,000 mg (2 tablets) for severe heartburn., Routine HYDROmorphone (DILAUDID) injection 0.2 mg 0.2 mg, Intravenous, EVERY 2 HOURS PRN, Starting on Mon11/02/16 at 2333, Until Mon11/06/16 at 1329, Pain, Routine lidocaine (XYLOCAINE) 10 mg/mL (1 %) injection 3 mg 3 mg (0.3 mL), Subcutaneous, ONCE PRN, 1 dose, Starting on Chloe 11/03/16 at 0716, Until Mon11/06/16 at 1329, for discomfort with PIV insertion, Recovery (Recovery-Hospital Unit), Routine naloxone (NARCAN) injection 0.2 mg 0.2 mg, Intravenous, EVERY 1 MIN PRN, Starting on Chloe 11/03/16 at 0716, Until Mon11/06/16 at 1329, Opioid Reversal, If respiratory rate less than 6 OR the patient is unable to arouse OR SpO2 is declining, Give for respiratory rate of less than or equal to 6 and patient is heavily sedated or unarousable. May repeat every 60 seconds to increase respiratory rate. DO NOT exceed 2 mg total dose., Recovery (Recovery-Hospital Unit), Routine ondansetron (ZOFRAN) injection 4 mg(Linked Group 1) 4 mg, Intravenous, EVERY 8 HOURS PRN, Starting on Chloe 11/03/16 at 0033, Until Mon11/06/16 at 1329, Nausea, May repeat times one in 30 minutes if ineffective. If multiple antiemetics are ordered, use ondansetron first., Recovery (Recovery-Hospital Unit) ondansetron (ZOFRAN) tablet 4 mg(Linked Group 1) 4 mg, Oral, EVERY 8 HOURS PRN, Starting on Chloe 11/03/16 at 0033, Until Mon11/06/16 at 1329, Nausea, Vomiting, If multiple antiemetics are ordered, use ondansetron first. PO Preferred. If patient unable to take PO, may give IV if ordered. May repeat times one in 45 minutes if ineffective., Recovery (Recovery-Hospital Unit), Routine oxyCODONE (ROXICODONE) immediate release tablet 10 mg(Linked Group 2) 10 mg, Oral, EVERY 4 HOURS PRN, Starting on Mon11/02/16 at 2333, Until Mon11/06/16 at 1329, Pain, severe pain (7-10), May give an additional 5 mg in 30 minutes once if pain not relieved., Routine 0548 (See Alternative - Provider: Christine Kathleen RN) oxyCODONE (ROXICODONE) immediate release tablet 5 mg(Linked Group 2) 5 mg, Oral, EVERY 4 HOURS PRN, Starting on 11/02/16 at 2333, Until 11/06/16 at 1329, Pain, mild to moderate pain (1-6), May give an additional 5 mg in 30 minutes once if pain not relieved., Routine 0548 (Given - Provider: Christine Kathleen RN) sodium chloride 0.9 % flush 5-20 mL 5-20 mL, Intravenous, EVERY 1 MIN PRN, Starting on Chloe 11/03/16 at 0716, Until 11/06/16 at 1329, flush, Flush pertains to all indwelling lines. Flush per protocol found in the job aid using the link provided on this medication record., Recovery (Recovery-Hospital Unit), Routine Linked Groups Order Group 1: ondansetron (ZOFRAN) tablet 4 mgJump to med 4 mg, Oral, EVERY 8 HOURS PRN, Starting on Chloe 11/03/16 at 0033, Until 11/06/16 at 1329, Nausea, Vomiting, If multiple antiemetics are ordered, use ondansetron first. PO Preferred. If patient unable to take PO, may give IV if ordered. May repeat times one in 45 minutes if ineffective., Recovery (Recovery-Hospital Unit), Routine Or ondansetron (ZOFRAN) injection 4 mgJump to med 4 mg, Intravenous, EVERY 8 HOURS PRN, Starting on Chloe 11/03/16 at 0033, Until 11/06/16 at 1329, Nausea, May repeat times one in 30 minutes if ineffective. If multiple antiemetics are ordered, use ondansetron first., Recovery (Recovery-Hospital Unit) Group 2: oxyCODONE (ROXICODONE) immediate release tablet 5 mgJump to med 5 mg, Oral, EVERY 4 HOURS PRN, Starting on 11/02/16 at 2333, Until 11/06/16 at 1329, Pain, mild to moderate pain (1-6), May give an additional 5 mg in 30 minutes once if pain not relieved., Routine Or oxyCODONE (ROXICODONE) immediate release tablet 10 mgJump to med 10 mg, Oral, EVERY 4 HOURS PRN, Starting on Mon11/02/16 at 2333, Until 11/06/16 at 1329, Pain, severe pain (7-10), May give an additional 5 mg in 30 minutes once if pain not relieved., Routine documented in this encounter Care Teams Biblical Languages Professor Relationship Specialty Start Date End Date Dulce Hidalgo MD [facility] [address] [place] [address] PCP - General Family Medicine 09/30/16 documented as of this encounter
--- OUTSIDE RECORDS SUMMARY | 2024-01-11 13:22 | XMS_ITS | Encounter Summary ---
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 Filter Cloth Changer Name Role Phone Dulce Hidalgo MD Primary Care Provider [phone] Reason for Visit * Auth/Cert Specialty Diagnoses [...] Care Team (Latest Contact Info) Description 11/02/2016 12:56 PM EDT - 11/02/2016 5:54 PM EDT Surgery [place] [id number] Yaritza Epps MD [facility] UROLOGDerrick [place] [id number] @ROBOTIC LAPAROSCOPY TOTAL NEPHROURETERECTOMY (WRVU 25.36) Social History Tobacco Use Types Packs/Day Years [...] Sign Reading Time Taken Comments Blood Pressure 151/58 11/02/2016 12:16 PM EDT Pulse 63 11/02/2016 12:16 PM EDT Temperature 36.2 ??C (97.2 ??F) 11/02/2016 12:16 PM E DT Respiratory Rate 16 11/02/2016 12:16 PM EDT Oxygen Saturation 100% 11/02/2016 12:16 PM EDT Inhaled Oxygen Concentration - - Weight 131.5 kg (290 lb) 11/02/2016 12:16 PM EDT Height 152.4 cm (5') 11/02/2016 12:16 PM EDT Body Mass Index 56.64 11/02/2016 12:16 PM EDT documented in this encounter Discharge Summaries * Gilbert Mares MD - 11/06/2016 10:11 AM EDT Discharge Summary Patient Name: Isaura Aguiar Patient Age: 76 y.o. Language: Azeri Race: White Ethnicity: Not nor Admit date: [...] Hospital Course: Patient was admitted electively to [facility] via the same day surgery program and [...] longer draining The number for questions is [phone] before 5 PM weekdays and [phone] after 5 PM and weekends. Activity level: [...] Appointment will bemailed to you. Please call [phone] (clinic number for appointments) to confirm date and time of your appointment if you do not receive it. General Instructions None Future Appointments and Orders Future Orders Complete By Expires XR Fluoro Cystogram [[id number] Custom] 11/06/2016 (Approximate) 05/08/2017 Process Instructions: Scheduling Instructions: Comments: Please coordinate with urology appt to follow Questions: Where will study be performed?: [facility] Reason for exam and clinical history: Evaluate for leak s/p nephroureterectomy 02 Nov 2016 Other pertinent information: Stat read required?: Date of injury if applicable: Requested Time: Referral to Home Health - at DISCHARGE [TIE3312 CPT(R)] As directed Process Instructions: Scheduling Instructions: Comments: DOCUMENTATION FOR VNA SERVICES (INCLUDING THOSE PATIENTS WITH MEDICARE COVERAGE REQUIRING HOME VNA SERVICES AND/OR HOSPICE SERVICES) PATIENT'S LOCATION: Isaura Nisa [facility] [address] [facility] [address] ([facility]) [phone] (cell) 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 PHONE: [phone] FAX: [phone] Start of care: 24-48hrs after discharge FOR [...] from this patient's PCP: Dulce Hidalgo MD [facility] [place] [facility] [address] All A agencies which cover the area of patient's residence have been reviewed, either verbally ernestina writing, and patient/family have chosen the home health care agency noted Questions: Agency name and contact information: [facility] Patient location post discharge: Home What services are requested: Registered Nurse Start date: Responsible MD post discharge contact info: PCP Follow-Up: No future appointments. Primary Care Provider: Dulce Hidalgo MD [phone] Follow-up Recommendations for Providers: Please see discharge [...] was managed by the Urology Team at [facility]. If you have any questions or concerns, please feel free to contact us. Provider Contact Information: Urology Clinic: [facility] (after business hours): documented in this encounter [...] longer draining The number for questions is [phone] before 5 PM weekdays and [phone] after 5 PM and weekends. Activity level: [...] Appointment will bemailed to you. Please call [phone] (clinic number for appointments) to confirm date [...] and . No new Rx. Patient left [facility] in a wheelchair accompanied by 2 [place] staff. * Gilbert Mares MD - 11/06/2016 [...] the following: Doing well Needs to ambulate Yartiza Epps documented in this encounter H&P Notes [...] 11/04/16 1226 Interdisciplinary Rounds/Family Conf Participants family;nursing;physician;physical therapy;manager case OUTCOME EVALUATION NOTE: OUTCOME SUMMARY: Diet advanced to regular. She is eating very small amounts. Worked with PT. She has been motivated to ambulate. One lap around unit (132 feet) with PT and two more with nursing staff. Ramos draining adequate urine output. Patient transferred to [facility] per MD's request. Report called [...] monitoring]: Call miller within reach, purposeful hourly roundingward Patient-specific fall prevention interventions for sensory deficits [...] in winter. Lives on one level [address] [facility] [address] Social & Family Supports/Community Resources: Family Extended Emergency Contact Information Primary Emergency Contact: Taran Aguiar [facility] Relation: Spouse Secondary Emergency Contact: [place] [address] [facility] Mobile Relation: Child Behavioral Health History: n/a Substance Use/Abuse: n/a Other Pertinent/Service Specific Information: n/a Health/Prescription Coverage: Primary Insurance: Payor: MEDICARE / Plan: MEDICARE PART A & B / Product Type: *No Product type* / Secondary Insurance: none Prescription Coverage: Preferred Pharmacy: [facility] [place] [address] [address] [place] [address] [address] Other: n/a Primary Care Provider: Dulce Hidalgo MD [phone] Patient/Caregiver Goals of Treatment: To go home and find out treatment Potential Needs for Transition of Care: Rehab/SNF: na Home Health: The patient/corporate representative has been provided a list of Home Health Agencieswhich serve their preferred geographic area. A letter describing our affiliations was reviewed with them and they were educated about their right to choose where referrals are placed. Patient requests referral to [facility] PHONE: [phone] FAX: [phone]. Expected date of discharge: TBD. Referral routed to the Fire Prevention Engineer for matching with agency/vendor and to provide any required information. DME: Has walker if needed Dialysis: na Community Resources: n/a Transportation: Taran Chau will drive patient home via car Other: n/a Anticipated Barriers to Discharge/Special Considerations: none Plan: Patient will go home with support of and [facility] A member of the Care Management team will continue to monitor progress, follow for continuity of care and assist with transition of care planning. Vivienne Zayas RN Pager: [phone] * Plan of Care - Suni Rodriguez, PT - 11/04/2016 11:40 AM EDT Problem: Acute Rehab Services Goal & Intervention Plan Goal: Bed Mobility Goal Stand Alone Therapy Goal Outcome: Ongoing (Interventions Implemented as Appropriate) 11/03/16 15411/04/16 1135 Bed Mobility Goal Bed Mobility Goal, Date Established 11/03/16 -- Bed Mobility Goal, Time to Achieve 2 wks -- Bed Mobility Goal, Activity Type supine to sit/sit to supine -- Bed Mobility Goal, [place] Level contact guard assist -- Bed Mobility Goal, Assistive Device (log roll) -- Bed Mobility Goal, Outcome Achieved -- goal ongoing Goal: Gait Training Goal Stand Alone Therapy Goal Outcome: Ongoing (Interventions Implemented as Appropriate) 11/03/16 1543 11/04/16 1135 Gait Training Goal Gait Training Goal, Date Established 11/03/16 -- Gait Training Goal, Time to Achieve 2 wks -- Gait Training Goal, [place] Level supervision required -- Gait Training Goal, [...] wks -- Transfer Training Goal, Activity Type amx-jn-hjqon/hwhsd-zf-xwh -- Transfer Train Goal, [place] Level supervision required -- Transfer Training Goal, [...] with assist, home with home health Pager: [phone] SUNI RODRIGUEZ, WINNIE 11/04/2016 Physical Therapy Rehabilitation [...] to sit/sit to supine Bed Mobility Goal, [place] Level contact guard assist Bed Mobility Goal, Assistive Device (log roll) Goal: Gait Training Goal Stand Alone Therapy Goal Outcome: Ongoing (Interventions Implemented as Appropriate) 11/03/16 1543 Gait Training Goal Gait Training Goal, Date Established 11/03/16 Gait Training Goal, Time to Achieve 2 wks Gait Training Goal, [place] Level supervision required Gait Training Goal, Assist [...] 2 wks Transfer Training Goal, Activity Type mzv-se-uzsre/jofut-ev-vyk Transfer Train Goal, [place] Level supervision required Transfer Training Goal, Assist [...] health (anticipate once pain better controlled) Pager: [phone] SUNI RODRIGUEZ, PT 11/03/2016 Physical Therapy Rehabilitation [...] Operative Note Patient Name: Isaura Aguiar : [id number] MR#: [id number] Case Date: 11/02/2016 Surgeon: Surgeon(s) and Role: [...] Rowena Rios - 11/02/2016 11:10 PM EDT [facility] Operative Note Patient Name: Isaura Aguiar : [id number] MR#: [id number] Case Date: 11/02/2016 Surgeon: Surgeon(s) and Role: [...] midline for assistance and ultimate extraction. The Unbxdi robot was docked in the usual fashion. [...] in themid left abdomen, and a 10mm retirement assistant port placed several cm superior to [...] Infection Bundle used? No Associated attestation - Yaritza Epps MD - 11/04/2016 1:33 PM EDT [...] EDT Ureteral mass Ureteral cancer, right MODIFIER ROBOT,RUDII XI 2016 2:41 PM EDT Ureteral mass [...] leak s/p nephroureterectomy 02 Nov 2016 TECHNIQUE: Research Dietitian radiograph of the pelvis was performed prior [...] FLUOROSCOPY TIME: 1.37 minutes COMPARISON: None FINDINGS: Research Dietitian view: Follicular balloon projects over the expected location of the urinary bladder. Surgical clips are injected over in the right lower quadrant and left hemisacrum. There is stool throughout the colon included in the imaging lnwcg-gf-yglv down to the level of the rectum. [...] leak s/p nephroureterectomy 02 Nov 2016 TECHNIQUE: Research Dietitian radiograph of the pelvis was performed prior [...] FLUOROSCOPY TIME: 1.37 minutes COMPARISON: None FINDINGS: Research Dietitian view: Follicular balloon projects over the expected location ofthe urinary bladder. Surgical clips are injected over in the right lowerquadrant and left hemisacrum. There is stool throughout the colon included in theimaging rhrpe-un-uuhd down to the level of the rectum. [...] * Differential, Automated (11/05/2016 2:10 AM EDT) Pathologist [facility] Neutrophils % 68.2 % [facility] Neutr Abs (ANC) 4.80 1.70 - 6.10 x10(3)/[facility] Lymphocytes % 20.0 % [facility] Lymphocytes Abs 1.4 0.9 - 3.2 x10(3)/[facility] Monocytes % 8.4 % [facility] Monocyte Abs 0.6 0.3 - 0.9 x10(3)/[facility] Eosinophils % 2.7 % [facility] Eosinophils Abs 0.2 0.0 - 0.4 x10(3)/[facility] Basophils % 0.4 % [facility] Basophils Abs 0.0 0.0 - 0.1 x10(3)/[facility] Immature Gran % 0.30 % [facility] Comment: Immature granulocytes(IG's)percentage and absolute count will include metamyelocytes, myelocytes, and promyelocytes. Blood smears from CBCs yielding IG's will be scanned manually for concordance. If this scan disagrees with the automated IG or if promyelocytes are noted, a manual differential will be performed. [place] Gran Abs 0.02 0.00 - 0.04 x10(3)/[facility] Blood specimen (specimen) 11/05/2016 2:10 AM EDT 11/05/2016 2:19 AM EDT Narrative Resulting Agency Comment Spec In Lab Yaritza Epps MD HEMATOLOGY ORDERABLE S [facility] [place] [address] * (ABNORMAL) Hemogram (11/05/2016 2:10 AM EDT) Pathologist [facility] WBC 7.0 4.0 - 9.5 x10(3)/[facility] RBC 3.63(L) 4.00 - 5.21 x10(6)/[facility] Hemoglobin 10.7(L) 11.7 - 15.5 gm/dL [facility] Hematocrit 32.3(L) 35.7 - 45.8 % [facility] MCV 89.0 82.6 - 94.4 [facility] MCH 29.5 27.1 - 32.0 pg [facility] MCHC 33.1 31.7 - 35.0 gm/dL [facility] Platelets 174 145 - 357 x10(3)/[facility] RDWSD 46.1(H) 37.0 - 46.0 [facility] RDWCV 14.2(H) 11.5 - 14.1 % [facility] MPV 11.4 7.6 - 12.9 [facility] nRBC % Auto 0.0 % [facility] nRBC Abs Auto 0.000 0.000 - 0.000 x10(3)/[facility] Blood specimen (specimen) 11/05/2016 2:10 AM EDT 11/05/2016 2:19 AM EDT Narrative Resulting Agency Comment Spec In Lab Yaritza Epps MD HEMATOLOGY ORDERABLE S [facility] [place] [address] * (ABNORMAL) Basic Metabolic Panel (non-fasting) (11/05/2016 2:10 AM EDT) [facility] Glucose Lvl 101 65 - 199 mg/dL [facility] Comment:Diabetes: >=200 mg/d L plus symptoms BUN 12 8 - 18 mg/dL [facility] Creatinine 1.16 0.70 - 1.20 mg/dL [facility] Comment: Please note that the pediatric reference intervals supplied above were not validated at [facility]. Results from pediatric patients should be interpreted in conjunction to the patient's age, height and muscle mass. Sodium 139 135 - 145 mmol/L [facility] Potassium 3.3(L) 3.5 - 5.0 mmol/L [facility] Comment: Please note: ??Patients with WBC >100,000 may have falsely elevated Potassium levels. ??For accurate Potassium quantification in these patients send serum separator tube (gold top) for subsequent determinations. ??Contact the Clinical Chemistry Laboratory if there are any questions. Chloride 104 98 - 107 mmol/L [facility] CO2 23 22 - 31 mmol/L [facility] Anion Gap 12 5 - 15 mmol/L [facility] Calcium 8.1(L) 8.5 - 10.5 mg/dL [facility] Estimated GFR 46(L) >=60 [facility] Comment: This estimated GFR (eGFR) value [...] the following links into your internet browser. [email or web address] [email or web address] Blood specimen (specimen) 11/05/2016 2:10 AM EDT 11/05/2016 2:19 AM EDT Narrative Resulting Agency Comment Spec In Lab Yaritza Epps MD CHEMISTRY ORDERABLES [facility] [place] [address] * Differential, Automated (11/04/2016 5:00 AM EDT) Neutrophils % 73.7 % [facility] Neutr Abs (ANC) 5.90 1.70 - 6.10 x10(3)/[facility] Lymphocytes % 17.7 % [facility] Lymphocytes Abs 1.4 0.9 - 3.2 x10(3)/[facility] Monocytes % 7.7 % [facility] Monocyte Abs 0.6 0.3 - 0.9 x10(3)/[facility] Eosinophils % 0.5 % [facility] Eosinophils Abs 0.0 0.0 - 0.4 x10(3)/[facility] Basophils % 0.2 % [facility] Basophils Abs 0.0 0.0 - 0.1 x10(3)/[facility] Immature Gran % 0.20 % [facility] Comment: Immature granulocytes(IG's)percentage and absolute count will include metamyelocytes, myelocytes, and promyelocytes. Blood smears from CBCs yielding IG's will be scanned manually for concordance. If this scan disagrees with the automated IG or if promyelocytes are noted, a manual differential will be performed. [place]oshana Gran Abs 0.02 0.00 - 0.04 x10(3)/[facility] Blood specimen (specimen) 11/04/2016 5:00 AM EDT 11/04/2016 5:12 AM EDT Narrative Resulting Agency Comment Spec In Lab Yaritza Epps MD HEMATOLOGY ORDERABLE S [facility] [place] [address] * (ABNORMAL) Hemogram (11/04/2016 5:00 AM EDT) WBC 8.0 4.0 - 9.5 x10(3)/[facility] RBC 3.99(L) 4.00 - 5.21 x10(6)/[facility] Hemoglobin 11.6(L) 11.7 - 15.5 gm/dL [facility] Hematocrit 35.0(L) 35.7 - 45.8 % [facility] MCV 87.7 82.6 - 94.4 fL [facility] MCH 29.1 27.1 - 32.0 pg [facility] MCHC 33.1 31.7 - 35.0 gm/dL [facility] Platelets 197 145 - 357 x10(3)/[facility] RDWSD 45.5 37.0 - 46.0 [facility] RDWCV 14.1 11.5 - 14.1 % [facility] MPV 11.3 7.6 - 12.9 [facility] nRBC % Auto 0.0 % [facility] nRBC Abs Auto 0.000 0.000 - 0.000 x10(3)/[facility] Blood specimen (specimen) 11/04/2016 5:00 AM EDT 11/04/2016 5:12 AM EDT Narrative Resulting Agency Comment Spec In Lab Yaritza Epps MD HEMATOLOGY ORDERABLE S [facility] [place] [address] * (ABNORMAL) Basic Metabolic Panel (non-fasting) (11/04/2016 5:00 AM EDT) Glucose Lvl 112 65 - 199 mg/dL [facility] Comment:Diabetes: >=200 mg/d L plus symptoms BUN 13 8 - 18 mg/dL [facility] Creatinine 1.18 0.70 - 1.20 mg/dL [facility] Comment: Please note that the pediatric reference intervals supplied above were not validated at [facility]. Results from pediatric patients should be interpreted in conjunction to the patient's age, height and muscle mass. Sodium 144 135 - 145 mmol/L [facility] Potassium 3.5 3.5 - 5.0 mmol/L [facility] Comment: Please note: ??Patients with WBC >100,000 may have falsely elevated Potassium levels. ??For accurate Potassium quantification in these patients send serum separator tube (gold top) for subsequent determinations. ??Contact the Clinical Chemistry Laboratory if there are any questions. Chloride 105 98 - 107 mmol/L [facility] CO2 26 22 - 31 mmol/L [facility] Anion Gap 13 5 - 15 mmol/L [facility] Calcium 8.3(L) 8.5 - 10.5 mg/dL [facility] Estimated GFR 45(L) >=60 [facility] Comment: This estimated GFR (eGFR) value [...] the following links into your internet browser. http://[employer]/DHnkdep [email or web address]/DHMCnkf Blood specimen (specimen) 11/04/2016 5:00 AM EDT 11/04/2016 5:12 AM EDT Narrative Resulting Agency Comment Spec In Lab Yaritza Epps MD CHEMISTRY ORDERABLES [facility] [place] [address] * (ABNORMAL) Differential, Automated (11/03/2016 7:45 AM EDT) Neutrophils % 87.5 % [facility] Neutr Abs (ANC) 8.12(H) 1.70 - 6.10 x10(3)/mc L [facility] Lymphocytes % 7.4 % [facility] Lymphocytes Abs 0.7(L) 0.9 - 3.2 x10(3)/mc L [facility] Monocytes % 4.6 % [facility] Monocyte Abs 0.4 0.3 - 0.9 x10(3)/[facility] Eosinophils % 0.0 % [facility] Eosinophils Abs 0.0 0.0 - 0.4 x10(3)/[facility] Basophils % 0.0 % [facility] Basophils Abs 0.0 0.0 - 0.1 x10(3)/[facility] Immature Gran % 0.50 % [facility] Comment: Immature granulocytes(IG's)percentage and absolute count will include metamyelocytes, myelocytes, and promyelocytes. Blood smears from CBCs yielding IG's will be scanned manually for concordance. If this scan disagrees with the automated IG or if promyelocytes are noted, a manual differential will be performed. Shoshana Gran Abs 0.05(H) 0.00 - 0.04 x10(3)/[facility] Blood specimen (specimen) 11/03/2016 7:45 AM EDT 11/03/2016 7:56 AM EDT Narrative Resulting Agency Comment Spec In Lab Yaritza Epps MD HEMATOLOGY ORDERABLE S [facility] [place] [address] * Hemogram (11/03/2016 7:45 AM EDT) WBC 9.3 4.0 - 9.5 x10(3)/[facility] RBC 4.34 4.00 - 5.21 x10(6)/[facility] Hemoglobin 12.4 11.7 - 15.5 gm/dL [facility] Hematocrit 38.6 35.7 - 45.8 % [facility] MCV 88.9 82.6 - 94.4 fL [facility] MCH 28.6 27.1 - 32.0 pg [facility] MCHC 32.1 31.7 - 35.0 gm/dL [facility] Platelets 202 145 - 357 x10(3)/[facility] RDWSD 45.1 37.0 - 46.0 [facility] RDWCV 13.7 11.5 - 14.1 % [facility] MPV 11.6 7.6 - 12.9 [facility] nRBC % Auto 0.0 % [facility] nRBC Abs Auto 0.000 0.000 - 0.000 x10(3)/[facility] Blood specimen (specimen) 11/03/2016 7:45 AM EDT 11/03/2016 7:56 AM EDT Narrative Resulting Agency Comment Spec In Lab Yaritza Epps MD HEMATOLOGY ORDERABLE S Performing Organization Address City/State/[facility] Co de Phone Number [facility] [place] [address] * (ABNORMAL) Basic Metabolic Panel (non-fasting) (11/03/2016 7:45 AM EDT) Glucose Lvl 172 65 - 199 mg/dL [facility] Comment:Diabetes: >=200 mg/d L plus symptoms BUN 18 8 - 18 mg/dL [facility] Creatinine 1.33(H) 0.70 - 1.20 mg/dL [facility] Comment: Please note that the pediatric reference intervals supplied above were not validated at [facility]. Results from pediatric patients should be interpreted in conjunction to the patient's age, height and muscle mass. Sodium 139 135 - 145 mmol/L [facility] Potassium 4.0 3.5 - 5.0 mmol/L [facility] Comment: Please note: ??Patients with WBC >100,000 may have falsely elevated Potassium levels. ??For accurate Potassium quantification in these patients send serum separator tube (gold top) for subsequent determinations. ??Contact the Clinical Chemistry Laboratory if there are any questions. Chloride 100 98 - 107 mmol/L [facility] CO2 28 22 - 31 mmol/L [facility] Anion Gap 11 5 - 15 mmol/L [facility] Calcium 8.7 8.5 - 10.5 mg/dL [facility] Estimated GFR 39(L) >=60 [facility] Comment: This estimated GFR (eGFR) value [...] the following links into your internet browser. http://[employer]/DHnkdep [email or web address]/DHMCnkf Blood specimen (specimen) 11/03/2016 7:45 AM EDT 11/03/2016 7:56 AM EDT Narrative Resulting Agency Comment Spec In Lab Yaritza Epps MD CHEMISTRY ORDERABLES Performing Organization Address [facility] Co de Phone Number [facility] [place] [address] * Specimen to Pathology (surgical or derm) (11/02/2016 10:32 PM EDT) AP Specimen 11/02/2016 10:3 2 PM EDT 11/02/2016 10:32 PM EDT Narrative [facility] - 11/02/2016 10:32 PM EDT Specimen requisition ordered. ??Separate Pathology report to follow Yaritza Epps MD PATHOLOGY/CYTOLOGY O RDERABLES Performing Organization Address [facility] Co de Phone Number [facility] [place] [address] * Surgical Pathology Report (11/02/2016 6:29 PM EDT) FINAL DIAGNOSIS (AP) [id number] ?Location: 2WST; 0209; A The signing pathologist [...] Ford Verified: ??11/10/2016 ?Pathologist DISCUSSION Scanned slides: [id number] ?? [id number] [id number] ?? A4-1 [id number] ?? [id number] CLINICAL INFORMATION Specimen Submitted: A [...] 4.0 x 1.7 x 1.5 cm). Color: Jansen. Consistency: Firm. Contour: Lobulated, nodular masses with [...] cuff, radial sections; (10-11) tumor deposit #4, corporate representative transverse sections; (12) tumor deposit #3, corporate representative transverse section; (13) tumor deposit #2, corporate representative transverse section; (14) tumor deposit #1 to serosa/soft tissue margin; (15-16) tumor deposit #1 to blood vessel and soft tissue; (17-18) tumor deposit #1 to serosa; (19) corporate representative kidney; (20) kidney vascular margin; (21) ureter between tumor deposits #3 and #2; (22) ureter between tumor deposits #2 and #1; (23) additional kidney. (R23) ams/pps 11/10/2016 1:38 PM EDT [facility] SPECIMEN FROM KIDNEY / Unknown 11/02/2016 6:29 PM EDT 11/02/2016 6:29 PM EDT SPECIMEN FROM KIDNEY / Unknown 11/02/2016 6:29 PM EDT 11/02/2016 6:29 PM EDT Yaritza Epps MD PATHOLOGY/CYTOLOGY O [place] Performing Organization Address City/[facility]/[place] [address] * Specimen to Pathology (surgical or derm) (11/02/2016 6:29 PM EDT) AP Specimen 11/02/2016 6:29 PM EDT 11/02/2016 6:29 PM EDT Narrative [facility] - 11/02/2016 6:29 PM EDT Specimen requisition ordered. 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 0837 (Given - Provider: Angelique Cruz, LOIS)2100 (Given - Provider: Odalis Riggins, LOIS) 0851 (Given - Provider: Kenyatta Spencer, RN)2023 (Given - Provider: Rita Jim, RN) 0801 (Given - Provider: Kenyatta Spencer, RN) docusate sodium (COLACE) capsule 100 mg 100 mg, Oral, 2 TIMES DAILY, First dose on Mon11/03/16 at 0900, Until Discontinued, Routine 0837 (Given - Provider: Angelique Cruz, LOIS)2100 (Given - Provider: Odalis Riggins, LOIS) 0852 (Given - Provider: Kenyatta Spencer, LOIS)2023 (Given - Provider: Rita Jim, LOIS) 0801 (Given - Provider: Kenyatta Spencer, LOIS) heparin (porcine) subcutaneous injection 5,000 Units 5,000 Units, Subcutaneous, EVERY 8 HOURS SCHEDULED, First dose on Mon11/03/16 at 0000, Until Discontinued, Routine 0549 (Given - Provider: Christine Kathleen RN)1608 (Given - Provider: Angelique Cruz, LOIS)2200 (Given - Provider: Odalis Riggins, LOIS) 0544 (Given - Provider: Odalis Riggins, LOIS)1336 (Given - Provider: Kenyatta Spencer, LOIS)2120 (Given - Provider: Rita Jim, LOIS) 0539 (Given - Provider: Rita Jim, LOIS) hydroCHLOROthiazide (HYDRODIURIL) tablet 25 mg 25 mg, Oral, DAILY, First dose on Mon11/03/16 at 1200, Until Discontinued, STAT 0837 (Given - Provider: Angelique Cruz, LOIS) 0851 (Given - Provider: Kenyatta Spencer, LOIS) 0801 (Given - Provider: Kenyatta Spencer, LOIS) lactobacillus (BACID) tablet 1 tablet 1 tablet, Oral, DAILY, First dose on Mon11/04/16 at 0900, Until Discontinued, Routine 1609 (Given - Provider: Angelique Cruz RN) 0851 (Given - Provider: Kenyatta SpencerLOIS) 0801 (Given - Provider: Kenyatta Spencer RN) pantoprazole (PROTONIX) injection 40 mg 40 mg, Intravenous, DAILY, First dose on Mon11/04/16 at 0730, Until Discontinued 0837 (Given - Provider: Angelique Cruz RN) 0852 (Given - Provider: Kenyatta Spencer, LOIS) 0800 (Given - Provider: Kenyatta Spencer, LOIS) simvastatin (ZOCOR) tablet 10 mg 10 mg, Oral, EVERY EVENING, First dose on Chloe 11/03/16 at 1700, Until Discontinued 1609 (Given - Provider: Angelique Cruz RN) 202 (Given - Provider: Rita Jim, LOIS) sodium chloride 0.9 % flush 5 mL 5 mL, Intravenous, 2 TIMES DAILY, First dose on Chloe 11/03/16 at 0900, Until Discontinued, Recovery (Recovery-Hospital Unit), Routine 0838 (Given - Provider: Angelique Cruz RN)2100 (Given - Provider: Odalis Riggins RN) 0852 (Given - Provider: Kenyatta Spencer, LOIS)202 (Given - Provider: Rita Jim, LOIS) 0802 (Given - Provider: Kenyatta Spencer, LOIS) Continuous Medication Order 11/04/2016 11/05/2016 11/06/2016 sodium [...] Unit) 0853 (Rate/Dose Change - Provider: Kenyatta Spencer RN)1737 (Stopped - Provider: Kenyatta Spencer, LOIS) PRN Medication Order 11/04/2016 11/05/2016 11/06/2016 calcium [...] Intravenous, EVERY 1 MIN PRN, Starting on Mon11/03/16 at 0716, Until Mon11/06/16 at 1329, Opioid [...] Intravenous, EVERY 8 HOURS PRN, Starting on Mon11/03/16 at 0033, Until Mon11/06/16 at 1329, Nausea, [...] Routine documented in this encounter Care Teams Mash Filter Cloth Changer Relationship Specialty Start Date End Date Dulce Hidalgo MD [address] [place] [address] PCP - General Family Medicine 09/30/16 documented as of this encounter
--- OUTSIDE RECORDS SUMMARY | 2024-01-11 13:22 | XMS_ITS | Encounter Summary ---
Author Organization [facility] [place] [address] Care Team Providers Care Gas Leak Tester Name Role Phone Dulce Hidalgo MD Primary Care Provider [phone] Encounter Details Date Type Department Care Team (Late st Contact Info) Description 10/05/2016 [place] [address] Ariel Do MD [facility] [place] [address] Hematuria Social History Tobacco Use Types Packs/Day [...] documented as of this encounter Results * Urine culture Clean Catch Urine (10/05/2016 5:20 PM EDT) Urine Culture No growth (Less than 1,000 cfu/ml). [facility] Urine specimen obtained by clean catch procedure (specimen) 10/05/2016 5:20 PM EDT 10/05/2016 5:20 PM EDT Narrative Resulting Agency Comment Spec In Lab Ariel Do MD MICROBIOLOGY - GENER AL ORDERABLES Performing Organization Address City/State/[facility] Co de Phone Number [facility] [place] [address] documented in this encounter Visit Diagnoses Diagnosis Hematuria Hematuria, unspecified documented in this encounter Care Teams Gas Leak Tester Relationship Specialty Start Date End Date Dulce Hidalgo MD [facility] [address] [place] [address] PCP - General Family Medicine 09/30/16 documented as of this encounter
--- OUTSIDE RECORDS SUMMARY | 2024-01-11 13:22 | XMS_ITS | Encounter Summary ---
Author Organization [facility] [place] [address] Care Team Providers Care Wrist Hemmer Name Role Phone Dulce Hidalgo MD Primary Care Provider [phone] Reason for Visit * Consultation (Routine) - Closed Specialty Diagnoses / Procedures Referred By Christal lainez Referred To Contact Urology Diagnoses HYDRONEPHROSIS Dulce Hidalgo MD [facility] [address] [address] [facility] [place] [address] Referral ID Status Reason Start Date Expiration Date V isits Requested Visits Authorized [id number] Closed Consult & Test Connection Center 09/30/2016 09/30/2017 1 1 Encounter Details Date Type Department Care Team (Late st Contact Info) Description 10/05/2016 1:00 PM EDT [place] [address] Ariel Do MD [facility] [place] [address] Ureteral mass; Ureteral cancer, right Social History Tobacco Use [...] Sign Reading Time Taken Comments Blood Pressure 156/71 10/05/2016 1:05 PM EDT Pulse 60 10/05/2016 1:05 PM EDT Temperature 36.8 ??C (98.2 ??F) 10/05/2016 1:05 PM ED T Respiratory Rate - - Oxygen Saturation 100% 10/05/2016 1:05 PM EDT Inhaled Oxygen Concentration - - Weight - - Height - - Body Mass Index - - documented in this encounter Progress Notes * Ariel Do MD - 10/05/2016 1:00 PM EDT Images from the original note were not included. Patient Name: Isaura Aguiar Date of Service: 10/05/2016 Primary Care Provider: Dulce Hidalgo MD Reason for Visit: Isaura Aguiar is a 75 y.o. female who is referred for evaluation of The patient has not felt herself for about a month. She has had right flank pain radiating around to the front. Varies sharp pain to dull ache (4/10). Pain is stable. She feels she needs to void all the time. She has had hematuria on 1 day ~ 2 weeks ago. Currently the patient has some irritative symptoms with minimal frequencyand nocturia x 2. The urinary stream is OK and the bladder is emptied completely. Appetite is poor. Weight is down 7 lbs. There is no bone pain. Patient Active Problem List Diagnosis ??? 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 IT band syndrome ??? SK (seborrheic keratosis) ??? AK (actinic keratosis) ??? Osteopenia Overview Note: Last Dexa scan August 06, 2009 showed T scores of -1.5 in the lumbar spine,m - 0.4 in the left hip, and 0.6 in the left femoral neck. ??? 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 She has had bilateral mastectomies [...] The patient drinks no ETOH Tobacco: Never Systems review: Rides recument bike 20 minutes a day. However, not over winter HEENT: Denies problems with vision, hearing, runny nose, epistaxis, sore throat, hoarseness Cardiovascular: Denies Chest pain, palpitations, shortness of breath, ankle swelling, claudication Respiratory: Denies cough, phlegm, hemoptysis,wheeze, Gastrointestinal: Denies nausea, difficulty swallowing, vomiting, hematemesis, diarrhea, blood per rectum. Occasional constipation Neurological: Denies dizziness, double vision, headache, weakness of one side of the body or the other,sudden loss of vision in one eye, Bones and muscles: Denies bone pain, radiating pain, muscle weakness or sore ness. All other systems negative. Physical Exam: Vital Signs are reviewed. The patient appears healthy and in no distress. Examination of the hands, head neck, eyes ears nose and throat is normal. The skin is normal. Thereis no lymphadenopathy or thyroidomegaly The chest is clear to percussion and auscultation. Heart sounds I and II are normal without murmurs or added sounds. Peripheral pulses are full without bruits The abdomen is benign. There are no masses or organomegaly. She is morbidly obese External genitalia is normal a rectal and vaginal exam are not performed. Examination of the extremities and neurological examination is grossly normal. Lab values are reviewed 09/15/2016 Cr 1.46, eGFR 35, Ca 9.3, Ca 125 10, Hb 13.9, Plt 235, Hb A1c 6.2. X-rays are reviewed Left kidney is normal. Right kidney hydronephrotic to level of the bladder, with thickened enhancing distal ureteral mass extending into the bladder. Minimal residual parenchyma on the right. No lymphadenpathy. 09/2016 CXR pending Cystoscopy 10/05/2016 Large tumor emerging and distending RUO appears Ta High grade. MELY normal. 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 #2: Poorly functioning Right kidney due to chronic hydronephrosis #3: Stage 3a CRI #4: Morbid obesity #5: BRAC2 mutation #6: Moderate Comorbidity Plan: Tylenol for flank pain Urine Cytology Type and screen CXR Schedule Right Robot assisted Nephroureterectomy documented in this encounter Plan of Treatment Not on file documented as of this encounter Procedures Procedure Name Priority Date/Time Associated Diagnosis Comments LAPAROSCOPY TOTAL NEPHROURETERECTOMY, ROBOTICS ASSIST Routine 10/20/2016 5:07 PM EDT Ureteral mass Ureteral Cancer, Right documented in this encounter Visit Diagnoses Diagnosis Ureteral mass Unspecified disorder of kidney and ureter Ureteral cancer, right documented in this encounter Care Teams Wrist Hemmer Relationship Specialty Start Date End Date Dulce Hidalgo MD [address] [place] [address] PCP - General Family Medicine 09/30/16 documented as of this encounter
--- OUTSIDE RECORDS SUMMARY | 2024-01-11 13:22 | XMS_ITS | Encounter Summary ---
[place] [address] Care Team Providers Care And Taxi Instructor Bus Trolley Name Role Phone Marivel Faulkner APRN Primary Care Provider + Reason for Visit * Reason Onset Date Comments Appointment 12/16/2013 Encounter Details Date Type Department Care Team (Late st Contact Info) Description 12/16/2013 Telephone [place] [phone] Veronika Gongora Appointment Social History Tobacco Use Types Packs/Day Years [...] encounter Miscellaneous Notes * Telephone Encounter - Veronika Gongora - 12/17/2013 2:13 PM EDT Received 5 pages of office notes from [facility], for the patients upcomming appointment. * Telephone Encounter - Veronika Gongora - 12/16/2013 8:42 AM EDT Ask patient to verify the following: VERIFIED / APPT 8/7/14 Full name: Isaura Aguiar : 1940 Phone number: [phone] (home) Mailing address: [address] [facility] [address] Intake: BILAT KNEE PAIN S/P BILAT TKA 03/03/09 [facility] 2ND OP Is this an injury that happened: NO ?? At work? ?? Playing a sport? ?? If yes to either, what is DOI? Tell me how this how long you've had these symptoms? ABOUT 2 MONTHS Has anyone ever seen you before for this issue? YES - [facility] Have you tried: NO ?? Physical Therapy ?? INJECTION ?? Other therapies Have you had any of the following studies for this issue? YES ?? X-Ray YES - [facility] (JUST LEFT KNEE) ?? MRI ?? CT Scan ?? LABS Have you seen an Orthopaedic surgeon for the this issue? YES If YES: Who did you see? DR CHILDERS Where were you seen (facility)? [facility] When? Have you ever had surgery for this issue? YES If YES and different than above: BILAT TKA Who performed surgery? DR CHILDERS Where did you have the surgery (facility)? [facility] When? 03/03/2009? Phone # Fax# If patient is implanted with hardware fixation or joint prosthesis retrieve OPERATIVE REPORT and IMPLANT STICKERS. documented in this encounter Plan of Treatment Not on file documented as of this encounter Visit Diagnoses Not on filedocumented in this encounter Care Teams And Taxi Instructor Bus Trolley Relationship Specialty Start Date End Date Marivel Faulkner APRN PCP - General 05/04/10 09/29/16 documented as of this encounter
--- OUTSIDE RECORDS SUMMARY | 2024-01-11 13:22 | XMS_ITS | Encounter Summary ---
Author Organization [facility] [place] [address] Care Team Providers Care [employer] Division Manager Name Role Phone Dulce Hidalgo MD Primary Care Provider [phone] Reason for Visit * Reason Comments Hematuria Encounter Details Date Type Department Care Team (Latest Contact Info) Description 10/05/2016 1:40 PM EDT [place] [address] Ariel Do MD [facility] [address] Hydronephrosis, unspecified hydronephrosis type; Bladder mass; Hematuria [...] this encounter Patient Instructions * Patient Instructions* Swathi Stover LPN - 10/05/2016 1:40 PM EDT Instructions following Cystoscopy Activity: As tolerated by your comfort level. Fluids: You should increase your water today. Avoid coffee, tea and cola. You do not need to [id number] ounces of water today. Urination: You will likely have a small amount of blood in your urine for the next several days. This is normal; however, if you are passing large amounts of blood clots or are unable to void please call our office at [phone] before 5PM or [phone] after hours. Please call if: * you have copious blood in your urine * fevers greater than 101.3 F * you are unable to void The number for questions is [phone] before 5 PM weekdays and [phone] after 5 PM and weekends. Follow-up: Surgery scheduled, take tylenol as needed for any pain. documented in this encounter Progress Notes * Ariel Do MD - 10/05/2016 1:40 PM EDT See other note from today documented in this encounter Procedure Notes * Ariel Do MD - 10/05/2016 1:40 PM EDTAssociated Order(s): CYSTOSCOPY Pre-Procedure Diagnose(s): Hydronephrosis, unspecified hydronephrosis type Images from the original note were not included. Procedure: Flexible Cystoscopy Surgeon: Ariel Do Preoperative Diagnosis: Hematuria/bladder mass Post Operative Diagnosis: Right distal ureteral tumor Complications: None Procedure: Urinalysis revealed no evidence [...] retroversion. The anterior urethroscopy was normal. The ureteral orifices were in normal position. The right ureteral orifice was distended by a large distal ureteral tumor. See photo The bladder was normal. There were no [...] AND LATERAL Routine 02/25/2019 10:20 AM EDT CYSTOSCOPY Routine 10/20/2016 5:02 PM EDT Hydronephrosis, unspecified hydronephrosis type URINE CULTURE Routine 10/05/2016 5:20 PM EDT Hematuria NON-PRINCIPAL AUTOMATION ENGINEER FINAL REPORT Routine 10/05/2016 2:17 PM EDT CYTOPATHOLOGY NON-GYNECOLOGICAL Routine 10/05/2016 2:17 PM EDT Hydronephrosis, unspecified hydronephrosis type Bladder [...] number below. Electronically signed by: Joelle Johnston [facility]([phone]), at 02/25/2019 10:40 AM Ariel Do MD IMG DX ORDERABLES * Cystoscopy (10/20/2016 5:02 PM EDT) Narrative Ariel Do MD - 10/20/2016 5:02 PM EDT Ariel Do MD ? 10/20/2016 ??5:02 PM Procedure: Flexible Cystoscopy Surgeon: Ariel Do Preoperative Diagnosis: Hematuria/bladder mass Post Operative Diagnosis: Right distal ureteral tumor Complications: None Procedure: Urinalysis revealed no evidence [...] retroversion. The anterior urethroscopy was normal. The ureteral orifices were in normal position. The right ureteral orifice was distended by a large distal ureteral tumor. See photo The bladder was normal. There were no bladder tumors, mucosal abnormalities or bladder stones. The cystoscope was removed. The patient tolerated the procedure without difficulty. There were no complications. Ariel Do Ariel Do MD PROCEDURE ORDERAB LES * Urine culture Clean Catch Urine (10/05/2016 5:20 PM EDT) Urine Culture No growth (Less than 1,000 cfu/ml). [facility] Urine specimen obtained by clean catch procedure (specimen) 10/05/2016 5:20 PM EDT 10/05/2016 5:20 PM EDT Narrative Resulting Agency Comment Spec In Lab Ariel Do MD MICROBIOLOGY - [facility] AL ORDERABLES Performing Organization Address City/State/[facility] Co de Phone Number [facility] [place] [address] * XR Chest PA & Lateral (Generic) [...] disease. Ariel Do MD IMG DX ORDERABLES * Non-Chef Passenger Vessel Final Report (10/05/2016 2:17 PM EDT) Diagnosis Discussion [id number] ?Location: The signing pathologist has (i) examined the relevant preparation(s) for the specimen(s) and (ii) rendered or confirmed the diagnosis(es). . ? Non-Chef Passenger Vessel Final DIAGNOSIS Suspicious for Malignancy Electronically signed by: ??Reza Rhoades MD Verified: ??10/08/2016 ?Cytopathologist DISCUSSION Urine, Voided: Clusters of urothelial cells are present in a voided sample. Cytoatypia, e.g., nuclear hyperchromasia and high nuclear-cytoplasm ic ratios, noted. In conjunction with the cystoscopic finding of a ureteral tumor, the material is suspicious for a urothelial neoplasm. CLINICAL INFORMATION Specimen Source : Urine, Voided Pertinent Clinical Data and Significant Therapy: Hematuria Clinical Impression : Hematuria Pertinent Radiologic Findings ??: (not provided) Gross Description: Received ??in 50% ETOH, ??approximately 50 mL total volume of ??clear, yellow fluid. Total Preparation: Liquid Based Prep 1. 10/08/2016 6:01 PM EDT [facility] URINE SPECIMEN OBTAINED BY CLEAN CATCH PROCEDURE / Unknown 10/05/2016 2:17 PM EDT 10/05/2016 2:17 PM EDT Ariel Do MD PATHOLOGY/CYTOLOGY O RDERABLES [facility] [place] [address] * Cytopathology Non-Gynecological (10/05/2016 2:17 PM EDT) AP Specimen 10/05/2016 2:17 PM EDT 10/05/2016 2:17 PM EDT Narrative [facility] - 10/05/2016 2:17 PM EDT Specimen requisition ordered. ??Separate Pathology report to follow Ariel Do MD PATHOLOGY/CYTOLOGY O RDERABLES [facility] [place] [address] documented in this encounter Visit Diagnoses Diagnosis Hydronephrosis, unspecified hydronephrosis type Bladder mass Other specified disorders of bladder Hematuria Hematuria, unspecified Hydronephrosis, unspecified hydronephrosis type Bladder mass Other specified disorders of bladder Hematuria Hematuria, unspecified documented in this encounter Care Teams [employer] Division Manager Relationship Specialty Start Date End Date Dulce Hidalgo MD [address] [place] [address] PCP - General Family Medicine 09/30/16 documented as of this encounter
--- OUTSIDE RECORDS SUMMARY | 2024-01-11 13:23 | XMS_ITS | Encounter Summary ---
Author Organization [facility] Address [address] [place] [address] Care Team Providers Care Title Department Manager Name Role Phone Marivel Faulkner HYDROGRAPHER Primary Care Provider [phone] Encounter Details Date Type Department Care Team (Late st Contact Info) Description 02/16/2021 Lab Requisition [facility] Pathology & Laboratory Medicine - [facility] [address], [place] [address] Outr Resulting Lab, Provider Social History Tobacco Use Types Packs/Day Years Used Date Smoking Tobacco: Never Assessed Sex and Gender Information Value Date Recorded Sex Assigned at Not on file Gender Identity Not on file Sexual Orientation Not on file documented as of this encounter Plan of Treatment Not on file documented as of this encounter Procedures Procedure Name Priority Date/Time Associated Diagnosis Comments ZZCOVID-19 TEST [facility] PCR Today 02/16/2021 11:00 EDT COVID-19 TESTING Routine 02/16/2021 11:0 0 EDT documented in this encounter Results * COVID-19 TEST [facility] PCR (02/16/2021 11:00 EDT) Swab ENTIRE NASOPHARYNX / Unknown 02/16/2021 11:00 EDT 02/16/2021 22:12 EDT Provider Outr Resulting Lab MICROBIOLOGY - GENERAL ORDERABLES [facility] [address] [place] [address] * COVID-19 TESTING (02/16/2021 11:00 EDT) COVID-19 rt-PCR Result Negative Negative 02/17/2021 2:09 EDT [facility] Comment: This test has not been FDA cleared or approved. This test has been authorized by FDA under an EUA for use by authorized laboratories. This test has been authorized only for detection of nucleic acid from 2019-nCoV, not for any other viruses or pathogens. This test is only authorized for the duration of the declaration that circumstances exist justifying the authorization of emergency use of in vitro diagnostic tests for detection and/or diagnosis of 2019-nCoV under section 564(b)(1) of Act, 21 U.S.C ?? 360bbb-3(b) (1), unless the authorization is terminated or revoked sooner. Negative results do not preclude 2019-nCoV infection and should not be used as the sole basis for treatment or other patient management decisions. Negative results must be combined with clinical observations, patient history, and epidemiological information. Performed on the Mashwork instrument Performing Lab Forrest [facility] Lab 02/17/2021 2:09 EDT [facility] Swab 02/16/2021 11:0 0 EDT 02/16/2021 22:12 EDT Provider Outr Resulting Lab MICROBIOLOGY - GENERAL ORDERABLES [facility] [address] [place] [address] documented in this encounter Visit Diagnoses Not on filedocumented in this encounter Care Teams Title Department Manager Relationship Specialty Start Date End Date Marivel Faulkner NP [address] [place] [address] [address] [place] [id number] PCP - General 10/18/11 documented as of this encounter
--- OUTSIDE RECORDS SUMMARY | 2024-01-11 13:23 | XMS_ITS | Encounter Summary ---
Author Organization [facility] Address [address] [place] [address] Care Team Providers Care Carbon Plant Grinder Name Role Phone Unavailable Primary Care Provider Unavailabl e Encounter Details Date Type Department Care Team (Late st Contact Info) Description 08/22/2011 Results Only [facility] [place] Laboratory Services - [facility] [place] [place] [address] [place], [place] [address] Maria Luz Forte, GURPREET [address] [place] [address] Social History Tobacco Use Types Packs/Day Years Used Date Smoking Tobacco: Never Assessed Sex and Gender Information Value Date Recorded Sex Assigned at Not on file Gender Identity Not on file Sexual Orientation Not on file documented as of this encounter Plan of Treatment Not on file documented as of this encounter Procedures Procedure Name Priority Date/Time Associated Diagnosis Comments PAP TEST- RESULT ONLY Routine 08/22/2011 0:00 EDT documented in this encounter Results * PAP TEST- RESULT ONLY (08/22/2011 0:00 EDT) Pathology Report: CYTOPATHOLOGY REPORT Reports generated via electronic interface contain original data; however they are lacking the format of the original report. Caution should be taken when reading/interpreti ng unformatted reports. Name: ? KHARI AGUIAR S ? Accession #: ? [id number] ? : ? 1940 (Age: 70) ??F ?Collect Date: ? 08/22/2011 ? Location: ? [facility] ? Receive Date: ? 08/23/2011 ? Provider: MARIA LUZ FORTE SEQUINS SPOOLER Copy to: ? Final Report SPECIMEN ADEQUACY ? Satisfactory for Evaluation - assessment of transformation zone component not applicable ( e.g. atrophy, vaginal sample, hysterectomy) GENERAL CATEGORIZATION ? Negative for Intraepithelial Lesion or Malignancy ?? Previous Gynecologic Pathology: Adenocarcinoma: ovarian stage III 03/16 Treatment History: Hysterectomy: BSO 1994 Miscellaneous treatment: bilateral mastectomy Specimen/Source: ??Pap Test, Vagina, ThinPrep Imaging System with manual evaluation Document reviewed and electronically signed by: ? RUI Bernardo(ASCP) ? Report ??Date: 08/26/2011 08:57 HPV with Pap Test ? Date Ordered: ? 08/25/2011 ? Status: ?? Signed Out ?Date Complete: ? 08/30/2011 ? By: ??System Interface ? Date Reported: ? 08/30/2011 ? Interpretation RESULT: Negative for HPV types 16, 18, 31, 33, 35, 39, 45, 51, 52, 56, 58, 59, and 68. Comments Document reviewed and electronically signed by: ? System Interface ? Report date: 08/30/2011 By the signature above, the attending physician certifies that he/she has personally conducted a gross and/or microscopic examination of the described specimens and rendered or confirmed the above diagnosis. End of Report [facility] 08/22/2011 08/23/2011 Maria Luz Forte NP PATHOLOGY ORDERABLES Performing Organization Address City/State/[facility] Co de Phone Number [facility] [address] [place] [address] documented in this encounter Visit Diagnoses Not on filedocumented in this encounter
--- OUTSIDE RECORDS SUMMARY | 2024-01-11 13:23 | XMS_ITS | Encounter Summary ---
Author Organization [facility] Address [address] [place] [address] Care Team Providers Care Payroll Processor Name Role Phone Unavailable Primary Care Provider Unavailabl e Encounter Details Date Type Department Care Team (Late st Contact Info) Description 03/21/2006 Results Only [facility] [address] [place] [address] Maria Luz Faulkner, GURPREET [address] [place] [address] Social History Tobacco Use Types Packs/Day Years Used Date Smoking Tobacco: Never Assessed Sex and Gender Information Value Date Recorded Sex Assigned at Not on file Gender Identity Not on file Sexual Orientation Not on file documented as of this encounter Plan of Treatment Not on file documented as of this encounter Procedures Procedure Name Priority Date/Time Associated Diagnosis Comments CYTOPATHOLOGY Routine 03/21/2006 0:00 EDT documented in this encounter Results * CYTOPATHOLOGY (03/21/2006 0:00 EDT) Pathology Report: CYTOPATHOLOGY REPORT Reports generated via electronic interface contain original data; however they are lacking the format of the original report. Caution should be taken when reading/interpreti ng unformatted reports. Name: ? KHARI AGUIAR S ? Accession #: ? [id number] : ? 1940 (Age: 65) ??F ?Collect Date: ? 03/21/2006 Location: ? [facility] ? Receive Date: ? 03/23/2006 Provider: ?MARIA LUZ FAULKNER BROKE BEATER Copy to: ? Specimen/Source: ?ThinPrep Pap Test, Cervix, processed on [employer] ThinPrep Imaging System, with manual evaluation Last Menstrual Period: ? 1994 Previous Gynecologic Pathology: ? Ovarian adenocarcinoma: Stage III 03/16 Treatment History: ? Hysterectomy: & BSO 1994 cervix intact Other: ? HPVA - HPV testing requested if ASC-US on the current ThinPrep Pap test. ? SPECIMEN ADEQUACY ? Satisfactory for Evaluation - transformation zone component absent GENERAL CATEGORIZATION ? Negative for Intraepithelial Lesion or Malignancy INTERPRETATION ? 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 ? Document reviewed and electronically signed by: ? Kassy Bryan, SCT(ASCP) ? Report Date: ??03/27/2006 12:53 End of Report [facility] 03/21/2006 03/23/2006 Maria Luz Faulkner NP PATHOLOGY ORDERABLES [facility] [address] [place] [address] documented in this encounter Visit Diagnoses Not on filedocumented in this encounter
--- OUTSIDE RECORDS SUMMARY | 2024-01-11 13:23 | XMS_ITS | Encounter Summary ---
Author Organization Health system Address [address] [place] [address] Care Team Providers Care Necktie Stitcher Name Role Phone Marivel Faulkner COMMUNITY RELATIONS ADVISOR Primary Care Provider [phone] Encounter Details Date Type Department Care Team (Late st Contact Info) Description 01/26/2021 Lab Requisition [facility] Pathology & Laboratory Medicine - [facility] [address] [place], [place] [address] Outr Resulting Lab, Provider Social History Tobacco [...] Procedure Name Priority Date/Time Associated Diagnosis Comments PTH INTACT Routine 01/25/2021 9:00 EDT documented in this encounter Results * PTH INTACT (01/25/2021 9:00 EDT) Intact PTH 54 19 - 88 pg/mL 01/27/2021 13:06 EDT [facility] Blood VENOUS BLOOD / Unknown 01/25/2021 9:00 EDT 01/26/2021 16:10 EDT Provider Outr Resulting Lab CHEMISTRY & BLOOD GAS ORDERABLES [facility] [address] [place] [address] documented in this encounter Visit Diagnoses Not on filedocumented in this encounter Care Teams Necktie Stitcher Relationship Specialty Start Date End Date Marivel Faulkner NP [address] [place] [address] [address] [place] [address] PCP - General 10/18/11 documented as of this encounter
--- OUTSIDE RECORDS SUMMARY | 2024-01-11 13:23 | XMS_ITS | Continuity of Care Document ---
Author Name [facility] Organization [facility] Care Team Providers Care Power Plant Operations Manager Name Role Phone [facility] Unavailable Unavailable Medications Combined list of outpatient medications from Department of Defense and Veterans Affairs facilities.Medications provided include 1) outpatient medications from the last 15 months, and 2) patient-reported medications. Medication Details Route Status Patient Instructions Prescription Expires Prescription Number Last Dispense Date Ordering Provider Order Date Order Qty Source ATENOLOL (ATENOLOL), 50 MG, TABLET, ORAL, [employer] 1000 ea. BOTTLE Cancele d [id number] : 2023 0 Pharmac y Data Transac tion Service Facilit y ATENOLOL (ATENOLOL), 50 MG, TABLET, ORAL, [employer] 1000 ea. BOTTLE Active [id number] 4 2023 90 Pharmac y Data Transac tion Service Facilit y ATORVASTATI N CALCIUM (ATORVASTAT IN CALCIUM), 80 MG, TABLET, ORAL, MYLAN, 500 ea. BOTTLE Active [id number] 4 2023 90 Pharmac y Data Transac tion Service Facilit y CARVEDILOL (CARVEDILOL ), 25MG, TABLET, ORAL, GLENMARK PHARMA, 500 ea. BOTTLE Active [id number] 4 2023 90 Pharmac y Data Transac tion Service Facilit y CARVEDILOL (CARVEDILOL ), 25MG, TABLET, ORAL, GLENMARK PHARMA, 500 ea. BOTTLE Active [id number] 4 2023 180 Pharmac y Data Transac tion Service Facilit y FUROSEMIDE (furosemide ), 40 MG, TABLET, ORAL, AVKARE, 1000 ea. BOTTLE Cancele d [id number] : 2023 0 Pharmac y Data Transac tion Service Facilit y FUROSEMIDE (furosemide ), 40 MG, TABLET, ORAL, AVKARE, 1000 ea. BOTTLE Active [id number] 4 2023 90 Pharmac y Data Transac tion Service Facilit y FUROSEMIDE (furosemide ), 40 MG, TABLET, ORAL, AVKARE, 1000 ea. BOTTLE Active [id number] 4 2023 90 Pharmac y Data Transac tion Service Facilit y JARDIANCE (EMPAGLIFLO ZIN), 10 MG, TABLET, ORAL, BOEHRINGER ING., 90 ea. BOTTLE Cancele d [id number] : 2023 0 Pharmac y Data Transac tion Service Facilit y JARDIANCE (EMPAGLIFLO ZIN), 10 MG, TABLET, ORAL, BOEHRINGER ING., 90 ea. BOTTLE Active [id number] 4 2023 90 Pharmac y Data Transac tion Service Facilit y LIDOCAINE (lidocaine) , 5 %, ADH. PATCH, TOPICAL, YARAL PHARMA, I, 30 ea. BOX Active [id number] 4 2023 15 Pharmac y Data Transac tion Service Facilit y LOSARTAN POTASSIUM (losartan potassium), 25 MG, TABLET, ORAL, NOVADOZ PHARMAC, 1000 ea. BOTTLE Active [id number] 4 2023 90 Pharmac y Data Transac tion Service Facilit y NYSTATIN (NYSTATIN), 403855/G, POWDER, TOPICAL, [place] LABO, 60 g BOTTLE Active [id number] 4 2023 60 Pharmac y Data Transac tion Service Facilit y Nystatin ([employer] c[employer] ([employer] Inc[employer] 60 g in 1 BOTTLE, PLASTIC Cancele d [id number] : 2023 0 Pharmac y Data Transac tion Service Facilit y ONDANSETRON HCL (ondansetro n HCl), 4 MG, TABLET, ORAL, CHARTWELL RX LL, 500 ea. BOTTLE Active [id number] 4 2023 30 Pharmac y Data Transac tion Service Facilit y SIMVASTATIN (simvastati n), 10 MG, TABLET, ORAL, PURACAP LABORAT, 1000 ea. BOTTLE Cancele d [id number] : 2023 0 Pharmac y Data Transac tion Service Facilit y SPIRONOLACT ONE (spironolac tone), 25 MG, TABLET, ORAL, OXFORD PHARMACE, 500 ea. BOTTLE Active [id number] 4 2023 90 Pharmac y Data Transac tion Service Facilit y XARELTO (rivaroxaba n), 10 MG, TABLET, ORAL, CHELO PHARM., 90 ea. BOTTLE Cancele d [id number] : 2023 0 Pharmac y Data Transac tion Service Facilit y XARELTO (rivaroxaba n), 10 MG, TABLET, ORAL, CHELO PHARM., 90 ea. BOTTLE Active [id number] 4 2023 90 Pharmac y Data Transac tion Service Facilit y XARELTO (rivaroxaba n), 10 MG, TABLET, ORAL, CHELO PHARM., 90 ea. BOTTLE Active [id number] 4 2023 90 Pharmac y Data Transac tion Service Facilit y Immunizations Combined list of available immunizations from the Department of Defense and Veterans Affairs facilities. Immunization Series Date Given Administered By Site Reaction Lot Number CVX Code Drug Gimp Tacker Status Comments Source influenza, high-dose, quadrivalent 2020 CRISTELA, () Not Given influenza , high-dose , quadrival ent DoD zoster recombinant 2017 KENIA HOUGH () Not Given zoster recombina nt DoD Pneumococcal conjugate PCV 13 2014 TAI MCCARTHY () Not Given Pneumococ juan david conjugate PCV 13 DoD Social History Combined list of available smoking, tobacco, and other social history from Department of Defense and Veterans Affairs facilities. Social History Type Response Date Comment Sourc e This section is an empty social history section. DoD
--- OUTSIDE RECORDS SUMMARY | 2024-01-11 13:23 | XMS_ITS | Encounter Summary ---
Author Organization [facility] Address [address] [place] [address] Care Team Providers Care Nurse Anesthetist Name Role Phone Unavailable Primary Care Provider Unavailabl e Encounter Details Date Type Department Care Team (Late st Contact Info) Description 03/27/2007 Results Only [facility] - Maple conversion [address] [place] [address] Maria Luz Faulkner, GURPREET [address] [place] [address] Social History Tobacco Use Types [...] Priority Date/Time Associated Diagnosis Comments CYTOPATHOLOGY Routine 03/27/2007 0:00 EDT documented in this encounter Results * CYTOPATHOLOGY (03/27/2007 0:00 EDT) Pathology Report: CYTOPATHOLOGY REPORT Reports generated via electronic interface contain original data; however they are lacking the format of the original report. Caution should be taken when reading/interpreti ng unformatted reports. Name: ? KHARI AGUIAR S ? Accession #: ? [id number] : ? 1940 (Age: 66) ??F ?Collect Date: ? 03/27/2007 Location: ? [facility] ? Receive Date: ? 03/29/2007 Provider: ?MARIA LUZ FAULKNER LIFE SKILLS EDUCATOR Copy to: ? Specimen/Source: ?ThinPrep Pap Test, Cervix, processed on [employer] ThinPrep Imaging System, with manual evaluation Last Menstrual Period: ? 1994 Previous Gynecologic Pathology: ? Adenocarcinoma: Ovarian 03/12/95 Treatment History: ? Hysterectomy: BSO 1994 Other: ? Additional clinical information: Breast CA 05/17, Bi Mastectomy, On Arimidex 1mg daily, BRACA 1 HPVA - HPV testing requested if ASC-US on the current ThinPrep Pap test. ? SPECIMEN ADEQUACY ? Satisfactory for Evaluation - assessment of transformation zone component not applicable ( e.g. atrophy, vaginal sample, hysterectomy) - scant squamous epithelial component secondary to excessive inflammation GENERAL CATEGORIZATION ? Negative for Intraepithelial Lesion or Malignancy ? Document reviewed and electronically signed by: ? URI Bernardo(ASCP) ? Report Date: ??04/06/2007 10:07 End of Report [facility] 03/27/2007 03/29/2007 Maria Luz Faulkner NP PATHOLOGY ORDERABLES [facility] [address] [place] [address] documented in this encounter Visit Diagnoses Not on filedocumented in this encounter
--- OUTSIDE RECORDS SUMMARY | 2024-01-11 13:23 | XMS_ITS | Encounter Summary ---
Author Organization [facility] Address [address] [place] [address] Care Team Providers Care Small Products Assembler Name Role Phone Marivel Faulkner QUAD STAYER Primary Care Provider [phone] Encounter Details Date Type Department Care Team (Late st Contact Info) Description 08/26/2022 Lab Requisition [facility] Pathology & Laboratory Medicine - [address] [id number] Outr Resulting Lab, Provider Social History Tobacco [...] Procedure Name Priority Date/Time Associated Diagnosis Comments H. PYLORI ANTIGEN Routine 08/26/2022 2:30 EDT documented in this encounter Results * H. PYLORI ANTIGEN (08/26/2022 2:30 EDT) H. Pylori Negative Negative 08/29/2022 15:53 EDT [facility] Feces SPECIMEN FROM RECTUM / Unknown 08/26/2022 2:30 EDT 08/26/2022 19:40 EDT Narrative [facility] - 08/29/2022 15:53 EDT Results were obtained with the Disceraier [place] HpSA Plus [facility]. Provider Outr Resulting Lab MICROBIOLOGY - GENERAL ORDERABLES [facility] [address] [place] [address] documented in this encounter Visit Diagnoses Not on filedocumented in this encounter Care Teams Small Products Assembler Relationship Specialty Start Date End Date Marivel Faulkner NP [address] [place] [address] [address] [place] [address] PCP - General 10/18/11 documented as of this encounter
--- OUTSIDE RECORDS SUMMARY | 2024-01-11 13:23 | XMS_ITS | Encounter Summary ---
Author Organization [facility] Address [address] [place] [address] Care Team Providers Care Preschool Aide Name Role Phone Unavailable Primary Care Provider Unavailabl e Encounter Details Date Type Department Care Team (Late st Contact Info) Description 08/31/1999 Results Only [facility] - Maple conversion [address] [place] [address] Howard Cabrera MD [address] [facility] [address] [place] [address] Social History Tobacco Use Types Packs/Day Years Used Date Smoking Tobacco: Never Assessed Sex and Gender Information Value Date Recorded Sex Assigned at Not on file Gender Identity Not on file Sexual Orientation Not on file documented as of this encounter Plan of Treatment Not on file documented as of this encounter Procedures Procedure Name Priority Date/Time Associated Diagnosis Comments ZZCA 125 Routine 08/31/1999 15:15 EST documented in this encounter Results * CA 125 (08/31/1999 15:15 EST) CA 125 5 0 - 35 U/ml [facility] Comment: Serum CA125 concentrations should not be interpreted as absolute evidence for the presence or absence of malignant disease. Assayed utilizing [employer] MATTI technology. Values obtained by using different assay methods cannot be used interchangeably. Previous CA125 results were 6 02/24/99 and 7 11/26/98 08/31/1999 15:1 5 EST 08/31/1999 17:42 EST Howard Cabrera MD CHEMISTRY & BLOOD GA S ORDERABLES [facility] [address] [place] [address] documented in this encounter Visit Diagnoses Not on filedocumented in this encounter
--- OUTSIDE RECORDS SUMMARY | 2024-01-11 13:23 | XMS_ITS | Encounter Summary ---
Author Organization [facility] Address [address] [place] [address] Care Team Providers Care Electronic Warfare Technician Name Role Phone Unavailable Primary Care Provider Unavailabl e Encounter Details Date Type Department Care Team (Late st Contact Info) Description 02/29/2000 17:21 EDT Hospital Encounter [facility] - Other [address] [place] [address] Howard Cabrera MD [address] [place] [address] [address] [place] [address] Social History Tobacco Use Types [...] Date/Time Associated Diagnosis Comments ZZCA 125 Routine 02/29/2000 16:15 EDT documented in this encounter Results * CA 125 (02/29/2000 16:15 EDT) CA 125 8 0 - 35 U/ml [facility] Comment: Serum CA125 concentrations should not be interpreted as absolute evidence for the presence or absence of malignant disease. Assayed utilizing [employer] MATTI technology. Values obtained by using different assay methods cannot be used interchangeably. PREVIOUS CA125 RESULT ON 08/31/99 WAS 5 AND ON 02/24/99 WAS 6 02/29/2000 16:1 5 EDT 03/01/2000 12:29 EDT Howard Cabrera MD CHEMISTRY & BLOOD GA S ORDERABLES [facility] [address] [place] [address] documented in this encounter Visit Diagnoses Not on filedocumented in this encounter Additional Health Concerns Infection Onset Date Last Indicated Resolved Time R/O COVID-19 12/17/2019 12/17/2019 12/22/2019 22:1 6 EDT documented as of this encounter
--- OUTSIDE RECORDS SUMMARY | 2024-01-11 13:23 | XMS_ITS | Encounter Summary ---
Author Organization [facility] Address [address] [place] [address] Care Team Providers Care Radiation Control Technician Name Role Phone Marivel Faulkner ELECTROMECHANICAL ASSEMBLER Primary Care Provider [phone] Encounter Details Date Type Department Care Team (Late st Contact Info) Description 07/27/2021 Lab Requisition [facility] Pathology & Laboratory Medicine - [facility] [address] [place], [place] [address] Outr Resulting Lab, Provider Social History Tobacco [...] Procedure Name Priority Date/Time Associated Diagnosis Comments FERRITIN Routine 07/26/2021 8:08 EST documented in this encounter Results * FERRITIN (07/26/2021 8:08 EST) Ferritin 12 10 - 291 ng/mL 07/27/2021 17:17 EST [facility] Blood VENOUS BLOOD / Unknown 07/26/2021 8:08 EST 07/27/2021 15:44 EST Provider Outr Resulting Lab CHEMISTRY & BLOOD GAS ORDERABLES [facility] [address] [place] [address] documented in this encounter Visit Diagnoses Not on filedocumented in this encounter Care Teams Radiation Control Technician Relationship Specialty Start Date End Date Marivel Faulkner NP [address] [place] [address] [address] [place] [address] PCP - General 10/18/11 documented as of this encounter
--- OUTSIDE RECORDS SUMMARY | 2024-01-11 13:23 | XMS_ITS | Encounter Summary ---
Author Organization [facility] Address [address] [place] [address] Care Team Providers Care Med Care Manager Name Role Phone Unavailable Primary Care Provider Unavailabl e Encounter Details Date Type Department Care Team (Late st Contact Info) Description 02/24/1999 12:26 EDT Hospital Encounter [facility] - Other [address] [place] [address] Howard Cabrera MD [address] [place] [address] [address] [place] [address] Unknown, Provider, Social History Tobacco Use Types Packs/Day Years [...]
--- OUTSIDE RECORDS SUMMARY | 2024-01-11 13:23 | XMS_ITS | Encounter Summary ---
Author Organization [facility] Address [address] [place] [address] Care Team Providers Care Sedimentationist Name Role Phone Marivel Faulkner LIVING ADVISOR Primary Care Provider [phone] Encounter Details Date Type Department Care Team (Late st Contact Info) Description 12/17/2019 Lab Requisition [facility] Pathology & Laboratory Medicine - [address] [address] Outr Resulting Lab, Provider Social History Tobacco [...] Comments ZZCOVID-19 TEST [facility] PCR Today 12/17/2019 11:18 EDT COVID-19 TESTING Routine 12/17/2019 11:1 8 EDT documented in this encounter Results * COVID-19 TEST [facility] PCR (12/17/2019 11:18 EDT) Swab ENTIRE NASOPHARYNX / Unknown 12/17/2019 11:18 EDT 12/17/2019 15:48 EDT Provider Outr Resulting Lab MICROBIOLOGY - GENERAL ORDERABLES [facility] [address] [place] [address] * COVID-19 TESTING (12/17/2019 11:18 EDT) COVID-19 rt-PCR Result Negative Negative 12/17/2019 19:57 EDT [facility] Comment: This test has not [...] history, and epidemiological information. Performed on the beModel Fusion instrument Performing Lab [place] [facility] 12/17/2019 19:57 EDT [facility] Swab 12/17/2019 11:1 8 EDT 12/17/2019 15:48 EDT Provider Outr Resulting Lab MICROBIOLOGY - GENERAL ORDERABLES [facility] [address] [place] [address] documented in this encounter Visit Diagnoses Not on filedocumented in this encounter Additional Health Concerns Infection Onset Date Last Indicated Resolved Time R/O COVID-19 12/17/2019 12/17/2019 12/22/2019 22:1 6 EDT documented as of this encounter Care Teams Sedimentationist Relationship Specialty Start Date End Date Marivel Faulkner NP [address] [place] [address] [address] [place] [address] PCP - General 10/18/11 documented as of this encounter
--- OUTSIDE RECORDS SUMMARY | 2024-01-11 13:23 | XMS_ITS | Encounter Summary ---
Author Organization [facility] Address [address] [place] [address] Care Team Providers Care Monument Installer Name Role Phone Marivel Faulkner OLIVING MACHINE OPERATOR Primary Care Provider [phone] Encounter Details Date Type Department Care Team (Late st Contact Info) Description 12/22/2021 Lab Requisition [facility] Pathology & Laboratory Medicine - [address] [address] Outr Resulting Lab, Provider Social History Tobacco [...] Procedure Name Priority Date/Time Associated Diagnosis Comments CA 125 Routine 12/22/2021 11:58 EDT documented in this encounter Results * CA 125 (12/22/2021 11:58 EDT) CA 125 16 <30 U/mL 12/23/2021 9:29 EDT [facility] Comment: NOTE: Serum CA 125 concentration should not be interpreted as absolute evidence for the presence or absence of malignant disease. Assayed on Siemens ADVIA Centaur XPT using chemiluminescent technology. ??Values obtained by using different assay methods cannot be used interchangeably. Blood VENOUS BLOOD / Unknown 12/22/2021 11:58 EDT 12/22/2021 21:47 EDT Provider Outr Resulting Lab CHEMISTRY & BLOOD GAS ORDERABLES [facility] [address] [place] [address] documented in this encounter Visit Diagnoses Not on filedocumented in this encounter Care Teams Monument Installer Relationship Specialty Start Date End Date Marivel Faulkner NP [address] [facility] [address] [place] [address] PCP - General 10/18/11 documented as of this encounter
--- OUTSIDE RECORDS SUMMARY | 2024-01-11 13:23 | XMS_ITS | Encounter Summary ---
Author Organization [facility] Address [address] [place] [address] Care Team Providers Care Brake Specialist Name Role Phone Unavailable Primary Care Provider Unavailabl e Encounter Details Date Type Department Care Team (Latest Contact Info) Description 03/14/2000 8:53 EDT - 04/11/2000 11:59 EST Hospital Encounter [facility] [address] [place] [address] Howard Cabrera MD [address] [facility] [address] [place] [id number] Discharge Disposition: Auto Discharge Social History Tobacco Use Types Packs/Day Years Used Date Smoking Tobacco: Never Assessed Sex and Gender Information Value Date Recorded Sex Assigned at Not on file Gender Identity Not on file Sexual Orientation Not on file documented as of this encounter Discharge Disposition Disposition Code Departure Means Destination Auto Discharge documented in this encounter Plan of Treatment Not on file documented as of this encounter Procedures Procedure Name Priority Date/Time Associated Diagnosis Comments CT ABDOMEN (LUNG BASES TO ILIAC CREST) W/WO CONTRAST Routine 04/11/2000 9:[address] ABDOMEN W/CONTRAST Routine 03/14/2000 9:[address] CHEST W/CONTRAST Routine 03/14/2000 9:[address] PELVIS W/CONTRAST Routine 03/14/2000 9:44 EDT documented in this encounter Results * CT ABDOMEN W/WO CONTRAST (04/11/2000 9:28 EST) Anatomical Region Laterality Modality Other 04/11/2000 9:28 EST Impressions 04/21/2009 22:04 EST IMPRESSION: 1) Normal exam. Previously identified low attenuation lesions in the tail of the pancreas were likely artifactual on the prior scan. No abnormality is seen within the pancreas on today's study. / vjc Narrative 04/21/2009 22:04 EST H/O LESIONS @ TAIL OF PANCREAS-R/O PRIMARY PANCREATIC CA VS. BENIGN IA OCESS (PLEASE USE PANCREAS PROTOCOL) CT SCAN OF THE ABDOMEN WITH AND WITHOUT CONTRAST 04/11/00 09:00 CLINICAL HISTORY: Question of lesions identified in the tail of the pancreas on prior CT, rule out benign versus pancreatic cancer. COMPARISON: 03/14/00 TECHNIQUE: After the administration of oral contrast and prior to the administration of intravenous contrast, 7mm axial images were obtained of the pancreas. During bolus administration of intravenous nonionic contrast, 5mm helical images were obtained of the abdomen with a pitch of 1:1. FINDINGS: The previously identified hypodense areas in the tail of the pancreas are not appreciated on today's exam. There are no masses or cysts within the pancreas. The peripancreatic tissue is normal. The lung bases are normal. The liver, spleen, adrenal glands, and left kidney are normal. Again noted is a 1cm cyst in the upper pole of the right kidney, the right kidney is otherwise normal. No masses or pathologically enlarged lymph nodes are seen in the abdomen. The bowel and gallbladder are unremarkable. Procedure Note Zachary Landaverde MD - 04/21/2009 H/O LESIONS @ TAIL OF PANCREAS-R/O PRIMARY PANCREATIC CA VS. BENIGN IA OCESS (PLEASE USE PANCREAS PROTOCOL) CT SCAN OF THE ABDOMEN WITH AND WITHOUT CONTRAST 04/11/00 09:00 CLINICAL HISTORY: Question of lesions identified in the tail of the pancreas on prior CT, rule out benign versus pancreatic cancer. COMPARISON: 03/14/00 TECHNIQUE: After the administration of oral contrast and prior to the administration of intravenous contrast, 7mm axial images were obtained of the pancreas. During bolus administration of intravenous nonionic contrast, 5mm helical images were obtained of the abdomen with a pitch of 1:1. FINDINGS: The previously identified hypodense areas in the tail of the pancreas are not appreciated on today's exam. There are no masses or cysts within the pancreas. The peripancreatic tissue is normal. The lung bases are normal. The liver, spleen, adrenal glands, and left kidney are normal. Again noted is a 1cm cyst in the upper pole of the right kidney, the right kidney is otherwise normal. No masses or pathologically enlarged lymph nodes are seen in the abdomen. The bowel and gallbladder are unremarkable. IMPRESSION IMPRESSION: 1) Normal exam. Previously identified low attenuation lesions in the tail of the pancreas were likely artifactual on the prior scan. No abnormality is seen within the pancreas on today's study. / talya Howard Cabrera MD IM CT ORDERABLES * CT CHEST W/CONTRAST (03/14/2000 9:44 EDT) Anatomical Region Laterality Modality Other 03/14/2000 9:44 EDT Impressions 04/21/2009 21:41 EST IMPRESSION: 1. Normal CT of the chest. ABDOMEN: The liver, spleen, adrenal glands and left kidney are normal. There is a 1cm cyst in the upper pole of the right kidney. Within the tail of the pancreas are at least 4, small low density round areas (images 36, 37 and 38). These were not clearly seen on the prior exam and may represent areas of focal fat. No masses or pathologically enlarged lymph nodes are seen in the abdomen. The gallbladder and bowel are unremarkable. IMPRESSION: 1. Several round, low attenuation areas within the tail of the pancreas. These likely represent focal fat, however, a follow up CT with the pancreas protocol is recommended in 3-6 months to exclude other etiology. PELVIS: The patient is status post hysterectomy and bilateral oophorectomy. There appears to be a portion of the cervix remaining, this is unchanged when compared to the prior exam. No masses or pathologically enlarged lymph nodes are identified in the pelvis. The bowel is unremarkable. IMPRESSION: 1. Stable CT of the pelvis, no evidence of recurrent or metastatic disease. D 03/14/00 T 03/17/00 /jl Narrative 04/21/2009 21:41 EST H/O OVARIAN CA-R/O RECURR/METS CT CHEST, ABDOMEN AND PELVIS 03/14/00, 0945 hours COMPARISON: CT ABDOMEN AND PELVIS 06/07/95 TECHNIQUE: Five-millimeter helical images were obtained of the chest and abdomen and 7mm axial images were obtained of the pelvis after the administration of oral contrast and during bolus administration of intravenous non-ionic contrast. FINDINGS: CHEST: There is no axillary, mediastinal or hilar lymphadenopathy. There are no pleural or pericardial effusions. No pulmonary parenchymal nodules or masses are identified. Procedure Note Zachary Landaverde MD - 04/21/2009 H/O OVARIAN CA-R/O RECURR/METS CT CHEST, ABDOMEN AND PELVIS 03/14/00, 0945 hours COMPARISON: CT ABDOMEN AND PELVIS 06/07/95 TECHNIQUE: Five-millimeter helical images were obtained of the chest and abdomen and 7mm axial images were obtained of the pelvis after the administration of oral contrast and during bolus administration of intravenous non-ionic contrast. FINDINGS: CHEST: There is no axillary, mediastinal or hilar lymphadenopathy. There are no pleural or pericardial effusions. No pulmonary parenchymal nodules or masses are identified. IMPRESSION IMPRESSION: 1. Normal CT of the chest. ABDOMEN: The liver, spleen, adrenal glands and left kidney are normal. There is a 1cm cyst in the upper pole of the right kidney. Within the tail of the pancreas are at least 4, small low density round areas (images 36, 37 and 38). These were not clearly seen on the prior exam and may represent areas of focal fat. No masses or pathologically enlarged lymph nodes are seen in the abdomen. The gallbladder and bowel are unremarkable. IMPRESSION: 1. Several round, low attenuation areas within the tail of the pancreas. These likely represent focal fat, however, a follow up CT with the pancreas protocol is recommended in 3-6 months to exclude other etiology. PELVIS: The patient is status post hysterectomy and bilateral oophorectomy. There appears to be a portion of the cervix remaining, this is unchanged when compared to the prior exam. No masses or pathologically enlarged lymph nodes are identified in the pelvis. The bowel is unremarkable. IMPRESSION: 1. Stable CT of the pelvis, no evidence of recurrent or metastatic disease. D 03/14/00 T 03/17/00 /marisela Howard Cabrera MD [facility] CT ORDERABLES * CT PELVIS W/CONTRAST (03/14/2000 9:44 EDT) Anatomical Region Laterality Modality Other 03/14/2000 9:44 EDT Narrative 04/21/2009 21:41 EST H/O OVARIAN CA-R/O RECURR/METS Procedure Note Zachary Landaverde MD - 04/21/2009 H/O OVARIAN CA-R/O RECURR/METS Howard Cabrera MD IMG CT ORDERABLES * CT ABDOMEN W/CONTRAST (03/14/2000 9:44 EDT) Anatomical Region Laterality Modality Other 03/14/2000 9:44 EDT Narrative 04/21/2009 21:41 EST H/O OVARIAN CA-R/O RECURR/METS Procedure Note Zachary Landaverde MD - 04/21/2009 H/O OVARIAN CA-R/O RECURR/METS Howard Cabrera MD IMG CT ORDERABLES documented in this encounter Visit Diagnoses Not on filedocumented in this encounter
--- OUTSIDE RECORDS SUMMARY | 2024-01-11 13:23 | XMS_ITS | Encounter Summary ---
Author Organization [facility] Address [address] [place] [address] Care Team Providers Care Regional Property Manager Name Role Phone Unavailable Primary Care Provider Unavailabl e Encounter Details Date Type Department Care Team (Late st Contact Info) Description 03/11/2005 Results Only [facility] [address] [place] [address] Maria Luz Faulkner, GURPREET [address] [place] [address] Social History Tobacco Use Types Packs/Day Years Used Date Smoking Tobacco: Never Assessed Sex and Gender Information Value Date Recorded Sex Assigned at Not on file Gender Identity Not on file Sexual Orientation Not on file documented as of this encounter Plan of Treatment Not on file documented as of this encounter Procedures Procedure Name Priority Date/Time Associated Diagnosis Comments HPV DETECTION, HIGH RISK TYPES Routine 03/11/2005 9:42 EDT CYTOPATHOLOGY Routine 03/11/2005 0:00 EDT documented in this encounter Results * HUMAN PAPILLOMA VIRUS DNA TEST (03/11/2005 9:42 EDT) Specimen Description Cervix, ThinPrep vial [facility] Result Negative for HPV types 16, 18, 31, 33, 35, 39, 45, 51, 52, 56, 58, 59, and 68. [facility] Report Status Final [id number] [facility] 03/11/2005 9:42 EDT 03/23/2005 9:42 EDT Maria Luz Faulkner NP MICROBIOLOGY - GENER AL ORDERABLES [facility] [address] [place] [address] * CYTOPATHOLOGY (03/11/2005 0:00 EDT) Pathology Report: CYTOPATHOLOGY REPORT Reports generated via electronic interface contain original data; however they are lacking the format of the original report. Caution should be taken when reading/interpreti ng unformatted reports. Name: ? KHARI AGUIAR ? Accession #: ? [id number] : ? 1940 (Age: 64) ??F ?Collect Date: ? 03/11/2005 Location: ? [facility] ? Receive Date: ? 03/16/2005 Provider: ?MARIA LUZ FAULKNER NP Copy to: ? Specimen/Source: ?ThinPrep Pap Test, Vagina, processed on [employer] ThinPrep Imaging System, with manual evaluation Last Menstrual Period: ? 1993 Other: ? HPVDX - HPV testing requested regardless of diagnosis on current ThinPrep Pap test. ? SPECIMEN ADEQUACY ? Satisfactory for Evaluation - assessment of transformation zone component not applicable ( e.g. atrophy, vaginal sample, hysterectomy) GENERAL CATEGORIZATION ? Negative for Intraepithelial Lesion or Malignancy ? Document reviewed and electronically signed by: ? Alec Alves, URI(ASCP) ? Report Date: ??03/22/2005 12:34 End of Report [facility] 03/11/2005 03/16/2005 Maria Luz Faulkner NP PATHOLOGY ORDERABLES Performing Organization Address City/State/[facility] Co de Phone Number [facility] [address] [place] [address] documented in this encounter Visit Diagnoses Not on filedocumented in this encounter
--- OUTSIDE RECORDS SUMMARY | 2024-01-11 13:23 | XMS_ITS | Encounter Summary ---
Author Organization [facility] Address [address] [place] [address] Care Team Providers Care Embedded Software Architect Name Role Phone Unavailable Primary Care Provider Unavailabl e Encounter Details Date Type Department Care Team (Late st Contact Info) Description 05/11/2010 Results Only [facility] - [facility] ([facility]) [address] [place], [place] [address] Maria Luz Faulkner, GURPREET [address] [place] [address] Social History Tobacco Use Types [...] Priority Date/Time Associated Diagnosis Comments CYTOPATHOLOGY Routine 05/11/2010 0:00 EST documented in this encounter Results * CYTOPATHOLOGY (05/11/2010 0:00 EST) Pathology Report: CYTOPATHOLOGY REPORT ? Reports generated via electronic interface contain original data; ? however they are lacking the format of the original report. ? Caution should be taken when reading/interpreti ng unformatted reports. ? Name: ? KHARI AGUIAR ? Accession #: ? [id number] ? : ? 1940 (Age: 69) ??F ?Collect Date: ? 05/11/2010 ? Location: ? [facility] ? Receive Date: ? 05/12/2010 ? Provider: MARIA LUZ FAULKNER SALES ASSISTANT INSTITUTION[employer] SALES ? Copy to: ? Final Report ? SPECIMEN ADEQUACY ? Satisfactory for Evaluation ? - assessment of transformation zone component not applicable ( e.g. atrophy, ? vaginal sample, hysterectomy) ? GENERAL CATEGORIZATION ? Negative for Intraepithelial Lesion or Malignancy ? Last Menstural Period: 1995 ? Hormonal/Contracep tive status: Yes: Arimidex ? 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 Treatment History: Hysterectomy: + bso 1995 ? Specimen/Source: ??Pap Test, Vagina, ThinPrep Imaging System with manual ? evaluation ? Document reviewed and electronically signed by: ? Alec Alves, CT(ASCP) ? Report ??Date: 05/18/2010 11:28 ? HPV with Pap Test ? Date Ordered: ? 05/17/2010 ? Status: ?? Signed Out ?Date Complete: ? 05/20/2010 ? By: ??System Interface ? Date Reported: ? 05/20/2010 ? Interpretation ? RESULT: Negative for HPV types 16, 18, 31, 33, 35, 39, 45, 51, 52, ? 56, 58, 59, and 68. ? Comments ? Document reviewed and electronically signed by: ? System Interface ? Report date: 05/20/2010 ? By the signature above, the attending physician certifies that he/she has ? personally conducted a gross and/or microscopic examination of the described ? specimens and rendered or confirmed the above diagnosis. ? End of Report ? [facility] 05/11/2010 05/12/2010 Maria Luz Faulkner NP PATHOLOGY ORDERABLES [facility] [address] [place] [address] documented in this encounter Visit Diagnoses Not on filedocumented in this encounter
--- OUTSIDE RECORDS SUMMARY | 2024-01-11 13:23 | XMS_ITS | Encounter Summary ---
[place] [address] Care Team Providers Care Operations Agent Name Role Phone Marivel Faulkner APRN Primary Care Provider + Encounter Details Date Type Department Care Team (Latest Contact Info) Description 08/05/2010 3:20 PM EST - 08/05/2010 11:59 PM EST Hospital Encounter H[place]ology [place] [address] Shaheed Rios MD [facility] HEMATOLOGY/[place] [address] Discharge Disposition: Home Social History Tobacco Use [...] tablets every 6 hrs as needed* 08/05/2010 [facility] - [facility]SA 08/05/2010 08/0 12/2013 atenolol (TENORMIN) 50 mg tablet Take 50 mg by mouth daily. 08/05/2010 10/11/2023 famotidine (PEPCID AC) 10 mg tablet 08/05/2010 02/03/2011 anastrozole (ARIMIDEX) 1 mg tablet 1 MG = 1 Tablet(s), PO, Once daily 08/05/2010 02/03/2011 simvastatin (ZOCOR) 10 mg tablet Take 10 mg by mouth daily. 08/05/2010 10/11/2023 OMEPRAZOLE (PRILOSEC ORAL) 08/05/2010 01/16/2014 documented as of this encounter Plan of Treatment Not on file documented as of this encounter Visit Diagnoses Not on filedocumented in this encounter Care Teams Operations Agent Relationship Specialty Start Date End Date Marivel Faulkner APRN PCP - General 05/04/10 09/29/16 documented as of this encounter
--- OUTSIDE RECORDS SUMMARY | 2024-01-11 13:23 | XMS_ITS | Encounter Summary ---
Author Organization [facility] Address [address] [place] [address] Care Team Providers Care Shop Supervisor Name Role Phone Unavailable Primary Care Provider Unavailabl e Encounter Details Date Type Department Care Team (Late st Contact Info) Description 06/08/1999 8:19 EST Hospital Encounter [facility] - [address] [address] Gavin Fields MD [address] [address] Social History Tobacco Use Types Packs/Day Years Used Date Smoking Tobacco: Never Assessed Sex and Gender Information Value Date Recorded Sex Assigned at Not on file Gender Identity Not on file Sexual Orientation Not on file documented as of this encounter Plan of Treatment Not on file documented as of this encounter Procedures Procedure Name Priority Date/Time Associated Diagnosis Comments KNEE 4 OR MORE VIEWS Routine 06/08/1999 15:55 EST KNEE 1 OR 2 VIEWS Routine 06/08/1999 15: 55 EST documented in this encounter Results * KNEE 1 OR 2 VIEWS (06/08/1999 15:55 EST) Anatomical Region Laterality Modality Other 06/08/1999 15:5 5 EST Impressions 04/21/2009 12:57 EST IMPRESSION: 1. Mild osteoarthritis, right greater than left. /dkd Narrative 04/21/2009 12:57 EST PAIN R/O OA AP, PA FLEXED, LATERAL, AND SKYLINE VIEWS OF RIGHT KNEE AND AP AND PA FLEXED OF THE LEFT KNEE: 06/08/99 1545 HR. HISTORY: Knee pain, rule out osteoarthritis. FINDINGS: RIGHT KNEE: There is mild medial joint space narrowing. There is also evidence of osteophyte formation on the tibial plateau, as well as the patella. LEFT KNEE: The knee joint is symmetrical with no evidence of narrowing. There is mild tibial plateau osteophyte formation. Procedure Note Luis Avila MD / Derrell Gotti MD - 04/21/2009 PAIN R/O OA AP, PA FLEXED, LATERAL, AND SKYLINE VIEWS OF RIGHT KNEE AND AP AND PA FLEXED OF THE LEFT KNEE: 06/08/99 1545 HR. HISTORY: Knee pain, rule out osteoarthritis. FINDINGS: RIGHT KNEE: There is mild medial joint space narrowing. There is also evidence of osteophyte formation on the tibial plateau, as well as the patella. LEFT KNEE: The knee joint is symmetrical with no evidence of narrowing. There is mild tibial plateau osteophyte formation. IMPRESSION IMPRESSION: 1. Mild osteoarthritis, right greater than left. /kassandra Gavin [facility] ORDERABLES * KNEE 4 OR MORE VIEWS (06/08/1999 15:55 EST) Anatomical Region Laterality Modality Other 06/08/1999 15:5 5 EST Narrative 04/21/2009 12:57 EST PAIN R/O OA Procedure Note Luis Avila MD / Derrell Gotti MD - 04/21/2009 PAIN R/O OA Gavin [facility] ORDERABLES documented in this encounter Visit Diagnoses Not on filedocumented in this encounter Additional Health Concerns Infection Onset Date Last Indicated Resolved Time R/O COVID-19 12/17/2019 12/17/2019 12/22/2019 22:1 6 EDT documented as of this encounter
--- OUTSIDE RECORDS SUMMARY | 2024-01-11 13:23 | XMS_ITS | Encounter Summary ---
[facility] Address [facility] [place] [address] Care Team Providers Care Gear Lapping Machine Operator Name Role Phone Dulce Hidalgo MD Primary Care Provider [phone] Encounter Details Date Type Department Care Team (Late st Contact Info) Description 06/02/2006 Orders [place] [address] Brittany Duff MD [facility] [place] [address] Social History Tobacco Use Types Packs/Day Years Used Date Smoking Tobacco: Never Assessed [facility] Utilities Answer Date Recorded In the past 12 months has [employer], gas, oil, or water [email or web address] threatened to shut off services in your [...] place to sleep or slept in a usp (including now)? No 10/10/2023 DH IPV Inpatient [...] Associated Diagnosis Comments SURGICAL PATHOLOGY REPORT Routine 06/02/2006 2:24 PM EST documented in this encounter Results * Surgical Pathology Report (06/02/2006 2:24 PM EST) Pathologist [facility] Surgical Pathology Report [id number] ? Location: [facility]; [facility]; A The signing pathologist has (i) examined the relevant preparation(s) for the specimen(s) and (ii) rendered or confirmed the diagnosis(es). . ? Pathology Molecular Genetics Report Results TEST: ??HER2 FISH, BREAST CANCER METHOD: ??Fluorescence in situ hybridization (FISH) with probe for chromosome 17 centromere (17p11.1-q11.1) and locus specific probe for the HER2 gene locus (17q11.2-q12). RESULT: ?NEGATIVE FOR HER2/RICKY AMPLIFICATION ? TOTAL # SIGNALS/TOTAL # NUCLEI COUNTED FOR HER2 PROBE = 99 ? TOTAL # SIGNALS/TOTAL # NUCLEI COUNTED FOR CEP-17 PROBE = 86 ? HER2 TO CEP-17 RATIO = 1.15 ? (NORMAL RANGE <2.0) Interpretation: ??Paraffin-embedded tissue sections were submitted for HER2 gene amplification analysis by FISH. ??Direct analysis was performed using the Game[employer]ion Kit. ??Slide adequacy and signal enumeration were evaluated and satisfactory for both control and patient slides. ??The results of this analysis is based on the enumeration of 40 interphase nuclei from non-overlapping tumor cells. ??A signal ratio derived from the HER2 probe and the CEP-17 centromere probe of >2.0 is considered positive for HER2 gene amplification. This test is approved by the U.S.FDA for clinical diagnostic use. Rusty Melton, PH.D. Director, Molecular Pathology _ Verified date: ??06/19/06 ??HAB Verified by: ?Mayra Brizuela MD ? (Electronic Signature) ?Pathology Surgical Pathology Final Report Clinical Information Specimen Submitted: A - Left breast mastectomy - long stitch lateral/short cranial: ??left ?breast. B - Left axillary sentinel nodes #1-2: ??left axilla. C - Right breast mastectomy - long stitch lateral/short cranial: ??right ?breast. D - Right axillary sentinel nodes: ??right axilla. Clinical Diagnosis: Breast cancer. Gross Description A - Labeled/Fixative: Left breast mastectomy, long stitch lateral, short ?cranial; fresh. Qty/Size/Weight: ?One, 30.0 x 27.0 x 5.0 cm, 1523 g. Tissue Description: ?? Left breast mastectomy. ?? Skin: ?30.0 x 23.0 cm. ??No lesions identified. ?? Nipple: ?0.5 x 0.5 cm. ??Everted. ??No lesions identified. ?? Deep Margin: ? Inked black. ??Superficial inked blue. . Gross Description ?? Clip: ?No previous biopsy clip is placed nor identified. ?? Lesion: ?Size: ? 1.0 x 0.6 x 1.0 cm. ?Color: ?Valencia-white. ?Consistency: ?Firm. ?Borders: ?Scalloped. ?Location: ? In slice VIII, 8.0 cm to deep, 2.0 cm to the ?superficial margin at the 12 o'clock position, 0.5 cm ?from the base of the nipple. ?? Parenchyma: ?Homogenous, valencia-yellow, fibrofatty parenchyma. ?? Axillary Contents: No lymph nodes identified. ?? Lymph Nodes: ? None identified in this specimen Sections/Processing: ??The specimen is inked and serially sectioned from ?superior to inferior into ten slices. ??(A1) nipple; (A2) base of nipple; (A3-A5) the lesion to skin (to superficial margin); (A6-A12) parenchyma adjacent to lesion (slice VIII); (A13-A14) slice V, (A13) loan representative of left upper inner quadrant, (A14) loan representative of left upper outer quadrant; (A15-A16) slice IX, (A15) loan representative left lower inner quadrant, (A16) left lower outer quadrant. ??(R16) ??aje/RR B - Labeled/Fixative: Left axillary sentinel nodes #1-2, fresh. Qty/Size/Weight: ?Fragments, 2.0 x 1.2 x 1.2 cm. Tissue Description: ?? Valencia-yellow, lobular, fatty tissue within which two ?valencia-yellow to valencia-pink, fatty lymph nodes are ?identified, 0.7 cm and 1.4 cm. Sections/Processing: ??(B1) the smaller lymph node; (B2) the larger lymph ?node, bisected; (B3) the remaining fat. ??(T3) ?aje/EJR C - Labeled/Fixative: Right breast mastectomy, long stitch lateral, short ?cranial, right breast; fresh. Qty/Size/Weight: ?One, 30.0 x 19.0 x 5.0 cm, 1342 g. Tissue Description: ?? Right breast mastectomy. ?? Skin: ?12.0 x 17.0 cm. ??No lesions identified. ?? Nipple: ?1.0 x 1.0 cm. ??No lesions identified. ??Everted. ?? Deep Margin: ? Inked black. ??Superficial inked blue. ?? Clip: ?No prior biopsy clip placed or identified. ?? Lesion: ?None identified. ?? Parenchyma: ?Valencia-yellow, fibrofatty breast parenchyma. ?? Axillary Contents: ?? Lymph Nodes: ? None identified. Sections/Processing: ??The specimen is inked and serially sectioned from ?superior to inferior into nine slices. ??(C1) nipple; (C2) base of nipple; (C3) from slice IV, right upper outer; (C4) right upper inner quadrant from slice IV; (C5-C6) from slice VII, (C5) right lower outer quadrant, (C6) right lower inner quadrant. ??(R6) ??aje/RR D - Labeled/Fixative: Right axillary sentinel nodes, right axilla; fresh. Qty/Size/Weight: ?Fragments, 3.5 x 3.0 x 1.0 cm. Tissue Description: ?? Aggregate of valencia-yellow, lobular, fatty tissue within ?which are two fatty, focally blue-stained, valencia-yellow ?to valencia-pink lymph nodes identified, 2.0 cm and ?2.4 cm. Sections/Processing: ??The smaller node in (D1-D2); the larger node in ?(D3-D4); the remaining fat in (D5-D6). ??(T6) ??aje/EJR Microscopic Description Slides reviewed, microscopic description not recorded. Diagnosis A & B - Specimen (s): ? Breast, left, mastectomy Histologic Type: ?Invasive ductal carcinoma Tumor Grade: ?High (High, Intermediate, Low) . Diagnosis Tuyrty-Rokxq-Ivroezvqf n Score: ??8 ?? Tubular Differentiation: ? 3 ?? Mitotic Rate: ?2 ?? Nuclear Grade: ? 3 Tumor Size: ? 1.0 cm, gross measure (maximum diameter) In Situ Histologic Type: ?DCIS ?? Extensive/Minor Component: ?? Minor, away from the invasive focus ?? Grade: ? High (High, Intermediate, Low) ?? Necrosis: ?Absent (Present / Absent) ?? Pattern(s): ?Cribriform Microcalcifications: ?N/A Resection Margins (RM): ?? Invasive Ca (distance, RM): ??2.0 cm, superficial (gross measure) ?? DCIS (distance, RM): ? greater than 2.0 cm Angiolymphatic Invasion: ?Not identified Perineural Invasion: ?Not identified Nipple Involvement: ? Not identified Correlation Biopsies/Cytology ?? [id number] - Biopsy Non-Neoplastic Breast: ?Apocrine metaplasia and cysts Axillary lymph nodes: Total no. of nodes sampled: ?2 ??No. of non-sentinel nodes: ?0 ??No. of sentinel nodes: ?2 (Specimen(s) B) ?No. positive for carcinoma: 1 (both H&E and CK immunostaining) ?No. with cytokeratin (CK) ? positive cells only: ?? 0 (cells not seen by H&E, see Note*) ?No. negative for carcinoma: 1 (both H&E and CK immunostaining) ??For positive nodes: ?Extranodal extension: ? No (yes/no) ?Largest armen deposit: ?Single cells and 2-3 cell clusters spanning ? a 0.2 cm distance (see comment) Estrogen/Progestin receptors: ?? Performed on block A5 ?? ER immunoreactivity: ? Positive (see Diagnostic stein) ?? IL immunoreactivity: ? Positive (see Diagnostic stein) HER2/ricky expression by FISH: ?See separate report pTNM: pT1b N1mi MX --- (AJCC, 6th edition, 2003) ? - - - - - - - - - - - - - - - - - - - - - - - - - - - - - Diagnostic stein for hormone receptors : ?? Negative immunoreactivity: ??No immunostaining ?? Equivocal immunoreactivity: 1-15% tumor cells with immunostaining ?? Positive immunoreactivity: ??>15% tumor cells with immunostaining Note*: ??The clinical significance of cytokeratin (CK) only immunoreactivity in a sentinel node is currently unknown. The two cytokeratin (CK) antibodies routinely used in the evaluation of sentinel nodes are 5D3 and AE1/3. The immunohistochemical studies provide ancillary information and are used only in conjunction with standard diagnostic procedures. C - Breast, right, mastectomy: ?Benign breast tissue. ??Benign nipple. D - Right axillary sentinel nodes: Total no. of axillary nodes sampled: 2 ?? No. of non-sentinel nodes: ?0 . Diagnosis ?? No. of sentinel nodes: ?2 (see Specimen(s) D) ?No. positive for carcinoma: ?0 (by H&E and CK immunostaining) ?No. with cytokeratin (CK) ?positive cells only: ? 0 (cells not seen by H&E, see Note*) ?No. negative for carcinoma: ?2 (by H&E or CK immunostaining) Note*: ??The clinical significance of cytokeratin (CK) only immunoreactivity in a sentinel node is currently unknown. The immunohistochemical studies provide ancillary information and are used only in conjunction with standard diagnostic procedures. CR-0 06/07/06 DEYSI 06/13/06 Verified by: ? Raquel Quispe, DO ?Pathologist ?(Electronic Signature) The attending pathologist whose signature appears on this report has reviewed all diagnostic slides and has edited the gross and/or microscopic portion of the report in rendering the final pathologic diagnosis. Comment The positive sentinel node shows single cells and small cell clusters within both cytokeratin stains and in the H&E stained slide. ??There is a small tear in the paraffin in the area of the largest micrometastasis and the 0.2 cm span may be a slight overestimate. ??The immunostains were performed on 5 separate slides in order to confirm this finding. ??Dr. Aubery Branham has also reviewed select slides and concurs with the interpretation. RODRIGUE ANNHELEN 06/02/2006 2:24 PM EST Brittany Duff MD PATHOLOGY/CYTOLOGY ORDERABLES Performing Organization Address City/State/[facility] Co de Phone Number RODRIGUE [facility] documented in this encounter Visit Diagnoses Not on filedocumented in this encounter Care Teams Gear Lapping Machine Operator Relationship Specialty Start Date End Date Dulce Hidalgo MD [address] [place] [address] PCP - General Family Medicine 09/30/16 documented as of this encounter
--- OUTSIDE RECORDS SUMMARY | 2024-01-11 13:23 | XMS_ITS | Encounter Summary ---
Author Organization [facility] Address [address] [place] [address] Care Team Providers Care Photographer Model Name Role Phone Marivel Faulkner SUBSURFACE AUGMENTEE ELINT OPERATOR Primary Care Provider [phone] Encounter Details Date Type Department Care Team (Late st Contact Info) Description 08/18/2022 Lab Requisition [facility] Pathology & Laboratory Medicine - [facility] [address] [place], [place] [address] Outr Resulting Lab, Provider Social History Tobacco [...] Procedure Name Priority Date/Time Associated Diagnosis Comments IGA Routine 08/17/2022 11:17 EST documented in this encounter Results * IGA (08/17/2022 11:17 EST) IgA 236 85 - 499 mg/dL 08/19/2022 9:27 EST [facility] Blood VENOUS BLOOD / Unknown 08/17/2022 11:17 EST 08/18/2022 17:13 EST Provider Outr Resulting Lab CHEMISTRY & BLOOD GAS ORDERABLES [facility] [address] [place] [address] documented in this encounter Visit Diagnoses Not on filedocumented in this encounter Care Teams Photographer Model Relationship Specialty Start Date End Date Marivel Faulkner NP [address] [place] [address] [address] [place] [address] PCP - General 10/18/11 documented as of this encounter
--- OUTSIDE RECORDS SUMMARY | 2024-01-11 13:23 | XMS_ITS | Encounter Summary ---
Author Organization [facility] Address [address] [place] [address] Care Team Providers Care Configuration Technician Name Role Phone Unavailable Primary Care Provider Unavailabl e Encounter Details Date Type Department Care Team (Late st Contact Info) Description 10/17/2011 Results Only [facility] Laboratory Services - [facility] ([facility] [address] [place], [place] [address] Glen Velázquez MD [address] [place] [address] Social History Tobacco Use Types Packs/Day Years Used Date Smoking Tobacco: Never Assessed Sex and Gender Information Value Date Recorded Sex Assigned at Not on file Gender Identity Not on file Sexual Orientation Not on file documented as of this encounter Plan of Treatment Not on file documented as of this encounter Procedures Procedure Name Priority Date/Time Associated Diagnosis Comments SURGICAL PATHOLOGY Routine 10/17/2011 0:00 EDT documented in this encounter Results * SURGICAL PATHOLOGY (10/17/2011 0:00 EDT) Pathology Report: SURGICAL PATHOLOGY REPORT Reports generated via electronic interface contain original data; however they are lacking the format of the original report. Caution should be taken when reading/interpreti ng unformatted reports. Name: ? KHARI AGUIAR ? Accession #: ? [id number] ? : ? 1940 (Age: 70) ??F ? Collect Date: ? 10/17/2011 ? Location: ? [facility] ? Receive Date: ? 10/17/2011 ? Provider: GLEN VELÁZQUEZ MD Copy to: MARIA LUZ FORTE DATABASE MANAGEMENT SPECIALIST ? Final Pathologic Diagnosis: ? Colon, ascending, biopsy: - Tubular adenoma. ??See comment. Comment: ? Deeper levels were examined. (Dr. Wills)/[facility] Document reviewed and electronically signed by: KAM [facility] Report ??Date: 10/20/2011 12:10 By the signature above, the attending physician certifies that he/she has personally conducted a gross and/or microscopic examination of the described specimens and rendered or confirmed the above diagnosis. Specimen(s) Received: ? Ascending colon polyp Clinical History: ? BRCA2 (+) screen; colon screen Gross Description: ? Received in formalin labelled Stefania, Khari and ascending colon polyp is a single 0.4 x 0.2 x 0.2 cm pink-valencia irregular soft tissue. ??Submitted in toto in a single cassette. ??(Logan Alejo)/liam End of Report OMER MOSS 10/17/2011 10/17/2011 16: 03 EDT Glen Velázquez MD PATHOLOGY ORDERABLES OMER MOSS [address] [place] [address] documented in this encounter Visit Diagnoses Not on filedocumented in this encounter
--- OUTSIDE RECORDS SUMMARY | 2024-01-11 13:23 | XMS_ITS | Encounter Summary ---
Author Organization [facility] Address [address] [place] [address] Care Team Providers Care Music Theory Teacher Name Role Phone Unavailable Primary Care Provider Unavailabl e Encounter Details Date Type Department Care Team (Latest Contact Info) Description 09/06/1999 9:22 EST - 09/10/1999 11:59 EST Hospital Encounter [facility] [address] [place] [address] Howard Cabrera MD [address] [facility] [address] [place] [address] Discharge Disposition: Auto Discharge Social History Tobacco [...]
--- OUTSIDE RECORDS SUMMARY | 2024-01-11 13:23 | XMS_ITS | Clinical Summary ---
Author Organization [facility] Address [address] [place] [address] Care Team Providers Care Integrity Analyst Name Role Phone Marivel Faulkner LIQUID HYDROGEN PLANT OPERATOR Primary Care Provider Social History Tobacco Use Types Packs/Day Years Used Date Smoking Tobacco: Never Assessed Sex and Gender Information Value Date Recorded Sex Assigned at Not on file Gender Identity Not on file Sexual Orientation Not on file Plan of Treatment Health Maintenance Due Date Last Done Comments RSV Immunization ( o r 60+ Years) (1 - 1-dose 60+ series) 2002 Fall Risk Screening 10/29/2007 COVID-19 Vaccine (24 season) 2023 Care Teams Integrity Analyst Relationship Specialty Start Date End Date Marivel Faulkner NP [address] [place] [address] [address] [place] [id number] PCP - General 10/18/11
--- OUTSIDE RECORDS SUMMARY | 2024-01-11 13:23 | XMS_ITS | Encounter Summary ---
Author Organization [facility] [place] [address] Care Team Providers Care Music Cataloguer Name Role Phone Dulce Hidalgo MD Primary Care Provider [phone] Encounter Details Date Type Department Care Team (Late st Contact Info) Description 05/16/2006 Orders [place] [address] Christian Esposito MD [facility] [place] [address] Social History Tobacco Use Types Packs/Day Years Used Date Smoking Tobacco: Never Assessed [facility] Utilities Answer Date Recorded In the past 12 months has [employer], gas, oil, or water [employer] threatened to shut off services in your [...] place to sleep or slept in a mcc (including now)? No 10/10/2023 DH IPV Inpatient [...] Associated Diagnosis Comments SURGICAL PATHOLOGY REPORT Routine 05/16/2006 10:47 AM EST documented in this encounter Results * Surgical Pathology Report (05/16/2006 10:47 AM EST) Pathologist [facility] Surgical Pathology Report [id number] ? Location: [facility] The signing pathologist has (i) examined the relevant preparation(s) for the specimen(s) and (ii) rendered or confirmed the diagnosis(es). . ?Pathology Surgical Pathology Final Report Clinical Information Specimen Submitted: A - Left breast Clinical History: 65 female with irregular mass 1.1cm in size, 0.5cm from nipple @ 11 o'clock h/o ovarian cancer. Clinical Diagnosis: invasive carcinoma Gross Description Labeled/Fixativ e: ? Left breast, formalin. Qty/Size/Weight : ?Three needle core biopsies, cylindrical cores of ?weaver-white and yellow-white, fatty and fibrofatty ?tissue, averaging 1.5 x 0.2 cm. Sections/Proces sing: ??(T1) ??harrison/SNS Microscopic Description Slides reviewed, microscopic description not recorded. Diagnosis Needle biopsies: ?Left breast Diagnosis: ?1. ??Infiltrating ductal carcinoma. ?2. ??Ductal carcinoma in situ. Microcalcificat ions: ??N/A CR-0 05/17/06 [facility] 05/17/06 Verified by: ? Mayra Brizuela MD ?Pathologist ?(Electronic Signature) The attending pathologist whose signature appears on this report has reviewed all diagnostic slides and has edited the gross and/or microscopic portion of the report in rendering the final pathologic diagnosis. RODRIGUE WADE 05/16/2006 10:4 7 AM EST Christian Esposito MD PATHOLOGY/CYTOLOGY O RDERABLES Performing Organization Address City/State/[facility] Co de Phone Number [facility] documented in this encounter Visit Diagnoses Not on filedocumented in this encounter Care Teams Music Cataloguer Relationship Specialty Start Date End Date Dulce Hidalgo MD [address] [place] [address] PCP - General Family Medicine 09/30/16 documented as of this encounter
--- OUTSIDE RECORDS SUMMARY | 2024-01-11 13:23 | XMS_ITS | Encounter Summary ---
Author Organization [facility] Address [address] [place] [address] Care Team Providers Care Senior Qa Engineer Name Role Phone Unavailable Primary Care Provider Unavailabl e Encounter Details Date Type Department Care Team (Late st Contact Info) Description 03/09/2004 Results Only [facility] [address] [place] [address] Maria Luz Faulkner, GURPREET [address] [place] [address] Social History Tobacco Use Types [...] Priority Date/Time Associated Diagnosis Comments CYTOPATHOLOGY Routine 03/09/2004 0:00 EDT documented in this encounter Results * CYTOPATHOLOGY (03/09/2004 0:00 EDT) Pathology Report: CYTOPATHOLOGY REPORT Reports generated via electronic interface contain original data; however they are lacking the format of the original report. Caution should be taken when reading/interpreti ng unformatted reports. Name: ? KHARI AGUIAR S ? Accession #: ? [id number] : ? 1940 (Age: 63) ??F ?Collect Date: ? 03/09/2004 Location: ? [facility] ? Receive Date: ? 03/11/2004 Provider: ?MARIA LUZ FAULKNER FRACTIONATION PLANT SUPERVISOR Copy to: ? Specimen/Source: ?ThinPrep Pap Test, Cervix Last Menstrual Period: ? 1994 Previous Gynecologic Pathology: ? Carcinoma: Ovarian Treatment History: ? Hysterectomy: BSO 1995 Other: ? HPVA - HPV testing requested if ASC-US on the current ThinPrep Pap test. ? SPECIMEN ADEQUACY ? Satisfactory for Evaluation - transformation zone component present GENERAL CATEGORIZATION ? Negative for Intraepithelial Lesion or Malignancy ? Document reviewed and electronically signed by: ? URI Martinez(ASCP) ? Report Date: ??03/17/2004 08:34 End of Report OMER MOSS 03/09/2004 03/11/2004 Maria Luz Faulkner NP PATHOLOGY ORDERABLES OMER MOSS [address] [place] [address] documented in this encounter Visit Diagnoses Not on filedocumented in this encounter
--- OUTSIDE RECORDS SUMMARY | 2024-01-11 13:23 | XMS_ITS | Encounter Summary ---
[place] [address] Care Team Providers Care Ceo And Founder Name Role Phone Marivel Faulkner APRN Primary Care Provider + Reason for Visit * Reason Comments Follow-up Encounter Details Date Type Department Care Team (Latest Contact Info) Description 02/03/2011 3:32 PM EDT - 02/03/2011 11:59 PM EDT Hospital Encounter [place]ematology [place] [address] Shaheed Rios MD [facility] HEMATOLOGY/[place] [address] Breast cancer, stage 1; Osteopenia Discharge Disposition: Home Social History Tobacco Use [...] Sign Reading Time Taken Comments Blood Pressure 147/89 02/03/2011 3:42 PM EDT Pulse 65 02/03/2011 3:42 PM EDT Temperature 36.7 ??C (98.1 ??F) 02/03/2011 3:42 PM ED T Respiratory Rate 18 02/03/2011 3:42 PM EDT Oxygen Saturation 98% 02/03/2011 3:42 PM EDT Inhaled Oxygen Concentration - - Weight 127.2 kg (280 lb 6.8 oz) 02/03/2011 3:42 PM EDT Height 153 cm (5' 0.24) 02/03/2011 3:42 PM EDT Body Mass Index 54.34 02/03/2011 3:42 PM EDT documented in this encounter Discharge Instructions * Patient Instructions* Shaheed Rios MD - 02/03/2011 5:13 PM EDT Your exam looks great and I do not see any evidence of breast cancer recurrence. I aksed you to continue the anastrozole until June 16 (give or take to the nearest 30 days) I'll see you next in July and we'll repeat your bone density test then. After that visit we'll cut back to once a year, but maybe in a better season. We can talk about a hand-over of your followup to [facility] when the time seems right. The optimal Vitamin d level is 35-45 ng/mL. The cholesterol might get even better after you come off anastrozole. documented in this encounter Medications at Time of Discharge Medication Sig Dispensed Refills Start Date End Date ACETAMINOPHEN (TYLENOL ORAL) Take 500 mg by mouth every 6 hours. *taking 2 tablets every 6 hrs as needed* 08/05/2010 anastrozole (ARIMIDEX) 1 mg tabletIndications:Breas t cancer, stage 1 Take 1 tablet by mouth daily. 30 tablet 2 02/03/2011 08/04/2011 [facility] Free Text Med - [facility] 08/05/201012/2013 atenolol (TENORMIN) 50 mg tablet Take 50 mg by mouth daily. 08/05/2010 10/11/2023 simvastatin (ZOCOR) 10 mg tablet Take 10 mg by mouth daily. 08/05/2010 10/11/2023 OMEPRAZOLE (PRILOSEC ORAL) 08/05/2010 01/16/2014 documented as of this encounter Progress Notes * Shaheed Rios MD - 02/03/2011 9:35 PM EDT Subjective: Patient ID: Isaura Aguiar is a 70 y.o. female with Stage I breast cancer, here for six month followup. HPI : Ms. Aguiar presented April 28, 2006 on [...] started in June 2006. Interval history: Isaura had increased pain and stiffness in her hands which improved significantly with a three week drug holiday in July and August, and the pain has not yet returned. She continues to have pain and stiffness in a number of other sites, including the neck, upper thoracic spine, knees, and ankles. She has dyspnea on climbing stairs, but she has no dyspnea at rest. Review of Systems : She denies a cough, chest pain, nausea, vomiting, diarrhea, constipation, headaches, double vision, skin rashes, or pain, redness, or swelling in her lower extremities. The remainder of her review of systems is negative. Objective: Physical Exam Vitals reviewed. Constitutional: She appears well-developed and well-nourished. HENT: Mouth/Throat: Oropharynx is clear and moist. No oropharyngeal exudate. Eyes: No scleral icterus. Neck: Neck supple. No thyromegaly present. Cardiovascular: Normal rate, regular rhythm and normal heart sounds. Exam reveals no gallop. No murmur heard. Pulmonary/Chest: Breath sounds normal. She has no wheezes. She has no rales. She has had bilateral mastectomies. There is no erythema or ndoularity within the skin of the chestwall bilaterally. Abdominal: Soft. She exhibits no distension and no mass. No tenderness. She has no guarding. Musculoskeletal: She exhibits no edema. Lymphadenopathy: She has no cervical adenopathy. Skin: Skin is warm and dry. No erythema. Psychiatric: She has a normal mood and affect. Labs from December 02, 2010 included a Vitamin D of 45.7, albumin 3.5, bilirubin 0.36, alk phos 138, AST 15, ALT 30, Na 143, K 4.6, Cl 107, bicarb 29, and CA125 of 7.31. The most recent Dexa scan of August 06, 2009 showed T scores of -1.5 in the lumbar spine, -0.4 inthe left hip, and 0.6 in the left femoral neck. Assessment and Plan: Ms. Aguiar is doing well and she has no evidence of breast cancer recurrence. She will complete herfive years of treatment with anastrozole in June 2011. I told her that the optimal Vitamin D level for a woman on anastrozole appears to be in the low normal range, at 35-45 ng/mL. I would prefer to see it remain at 45 or lower. I will see her next in followup in six months, and I will repeat the Dexa scan at that time. After the completion of her five years of treatment, I would be willing tocontinue to see her at yearly intervals, until she would prefer to transfer all her regular followup to Dr. Faulkner. documented in this encounter Plan of Treatment Not on file documented as of this encounter Visit Diagnoses Diagnosis Breast cancer, stage 1 Malignant neoplasm of breast (female), unspecified site Osteopenia Disorder of bone and cartilage, unspecified documented in this encounter Care Teams Ceo And Founder Relationship Specialty Start Date End Date Marivel Faulkner APRN [phone] (work) PCP - General 05/04/10 09/29/16 documented as of this encounter
--- OUTSIDE RECORDS SUMMARY | 2024-01-11 13:23 | XMS_ITS | Encounter Summary ---
Author Organization [facility] Address [address] [place] [address] Care Team Providers Care Kineseologist Name Role Phone Marivel Faulkner FLOTATION TANK OPERATOR Primary Care Provider [phone] Encounter Details Date Type Department Care Team (Late st Contact Info) Description 07/22/2020 Lab Requisition [facility] Pathology & Laboratory Medicine - [facility] [address] [place] [address] Outr Resulting Lab, Provider Social History Tobacco [...] Date/Time Associated Diagnosis Comments PTH INTACT Routine 07/22/2020 8:14 EST documented in this encounter Results * PTH INTACT (07/22/2020 8:14 EST) Intact PTH 73 19 - 88 pg/mL 07/23/2020 8:32 EST [facility] Blood VENOUS BLOOD / Unknown 07/22/2020 8:14 EST 07/22/2020 21:08 EST Provider Outr Resulting Lab CHEMISTRY & BLOOD GAS ORDERABLES [facility] [address] [place] [address] documented in this encounter Visit Diagnoses Not on filedocumented in this encounter Care Teams Kineseologist Relationship Specialty Start Date End Date Marivel Faulkner NP [address] [place] [address] [address] [place] [address] PCP - General 10/18/11 documented as of this encounter
--- OUTSIDE RECORDS SUMMARY | 2024-01-11 13:23 | XMS_ITS | Encounter Summary ---
Author Organization [facility] Address [address] [place] [address] Care Team Providers Care Deputy Sheriff Custody Name Role Phone Unavailable Primary Care Provider Unavailabl e Encounter Details Date Type Department Care Team (Late st Contact Info) Description 05/19/2008 Before PRISM Converted Visit (Maple) [facility] - Maple conversion [address] [place] [address] Maria Luz Faulkner, SET UP [employer] [address] [place] [address] Social History Tobacco Use Types [...] Priority Date/Time Associated Diagnosis Comments CYTOPATHOLOGY Routine 05/19/2008 0:00 EST documented in this encounter Results * CYTOPATHOLOGY (05/19/2008 0:00 EST) Pathology Report: CYTOPATHOLOGY REPORT ? Reports generated via electronic interface contain original data; ? however they are lacking the format of the original report. ? Caution should be taken when reading/interpreti ng unformatted reports. ? Name: ? KHARI AGUIAR ? Accession #: ? [id number] ? : ? 1940 (Age: 67) ??F ?Collect Date: ? 05/19/2008 ? Location: ? [facility] ? Receive Date: ? 05/20/2008 ? Provider: ?MARIA LUZ FAULKNER NP ? Copy to: ? Specimen/Source: ?Pap Test, Cervix, ThinPrep Imaging System with manual ?? evaluation ? Last Menstrual Period: ? 1995 ? Hormonal/Contracep tive Status: ? Yes: Arimidex ? Previous Gynecologic Pathology: ? Ovarian adenocarcinoma: Stage III ? Treatment History: ? Hysterectomy: 10/05 & BSO 1995 cervix in tact ? Other: ? HPVA - HPV testing requested if ASC-US on the current ThinPrep Pap test. ? SPECIMEN ADEQUACY ? Satisfactory for Evaluation ? - assessment of transformation zone component not applicable ( e.g. atrophy, ? vaginal sample, hysterectomy) ? GENERAL CATEGORIZATION ? Negative for Intraepithelial Lesion or Malignancy ? Document reviewed and electronically signed by: ? Vasquez Storey, CT(ASCP) ? Report Date: ??05/22/2008 11:28 ? End of Report ? [facility] 05/19/2008 05/20/2008 Maria Luz Faulkner [employer] PATHOLOGY ORDERABLES [facility] [address] [place] [address] documented in this encounter Visit Diagnoses Not on filedocumented in this encounter
--- OUTSIDE RECORDS SUMMARY | 2024-01-11 13:23 | XMS_ITS | Encounter Summary ---
Author Organization [facility] Address [address] [place] [address] Care Team Providers Care Principal Network Engineer Name Role Phone Unavailable Primary Care Provider Unavailabl e Encounter Details Date Type Department Care Team (Late st Contact Info) Description 02/14/2003 Results Only [facility] - Maple conversion [address] [place] [address] Maria Luz Faulkner, GURPRE[employer] [address] [place] [address] Social History Tobacco Use Types [...] Priority Date/Time Associated Diagnosis Comments CYTOPATHOLOGY Routine 02/14/2003 0:00 EDT documented in this encounter Results * CYTOPATHOLOGY (02/14/2003 0:00 EDT) Pathology Report: CYTOPATHOLOGY REPORT Reports generated via electronic interface contain original data; however they are lacking the format of the original report. Caution should be taken when reading/interpreti ng unformatted reports. Name: ? KHARI AGUIAR S ? Accession #: ? [id number] : ? 1940 (Age: 62) ??F ?Collect Date: ? 02/14/2003 Location: ? [facility] ? Receive Date: ? 02/18/2003 Provider: ?MARIA LUZ FAULKNER NP Copy to: ? Specimen/Source: ?ThinPrep Pap Test, Vagina Last Menstrual Period: ? Menstrual/Pregnanc y Status: ? Post Menopausal Previous Gynecologic Pathology: ? Carcinoma: Ovarian 11/21/94 Treatment History: ? Hysterectomy: Abd Other: ? HPVA - HPV testing requested if ASC-US on the current ThinPrep Pap test. ? SPECIMEN ADEQUACY ? Satisfactory for Evaluation - assessment of transformation zone component not applicable ( e.g. atrophy, vaginal sample, hysterectomy) GENERAL CATEGORIZATION ? Negative for Intraepithelial Lesion or Malignancy ? Document reviewed and electronically signed by: ? URI Nickerson(ASCP) ? Report Date: ??02/20/2003 07:47 End of Report [facility] 02/14/2003 02/18/2003 Maria Luz Faulkner NP PATHOLOGY ORDERABLES [facility] [address] [place] [address] documented in this encounter Visit Diagnoses Not on filedocumented in this encounter
--- OUTSIDE RECORDS SUMMARY | 2024-01-11 13:23 | XMS_ITS | Referral Summary ---
Author Organization [facility] Address [address] [place] [address] Care Team Providers Care Channeler Runner Name Role Phone Marivel Faulkner RIB TRIM SEPARATOR Primary Care Provider Social History Tobacco Use Types Packs/Day Years Used Date Smoking Tobacco: Never Assessed Sex and Gender Information Value Date Recorded Sex Assigned at Not on file Gender Identity Not on file Sexual Orientation Not on file Plan of Treatment Not on file Care Teams Channeler Runner Relationship Specialty Start Date End Date Marivel Faulkner NP [address] [place] [address] [address] [place] [address] PCP - General 10/18/11
[2024-01-11 14:08] LABS: Vitamin B12 422 pg/mL (193-986)
[2024-01-16 10:07] LABS: Methylmalonic Acid 0.24 nmol/mL (<=0.40)
== END 2024-01-11 13:15 | disposition home or self-care (01) ==
LOC: LBO 13:14
PROVIDERS: PCP Family Medicine; Visit Provider Family Medicine
DX: E53.8 Deficiency of other specified B group vitamins (principal)
CPT/HCPCS: 36415; 80186; 82607

== ENCOUNTER 2024-01-31 03:18 | Outpatient (CLI) | payer MEDICARE, OTHER, SELFPAY ==
[2024-01-31 12:47] LABS: Anion Gap 7.6 mmol/L (3-11); BUN 34 mg/dL (7-18); CO2 27.4 mmol/L (21.0-32.0); CREATININE 1.6 mg/dL (0.55-1.02); Calcium 9.2 mg/dL (8.5-10.1); Chloride 107 mmol/L (98-107); Glucose 110 mg/dL (74-106); Potassium 4.2 mmol/L (3.5-5.1); Sodium 142 mmol/L (136-145)
== END 2024-01-31 03:19 | disposition home or self-care (01) ==
LOC: LOS 03:18
PROVIDERS: PCP Family Medicine; Visit Provider Family Medicine
DX: N18.30 Chronic kidney disease, stage 3 unspecified (principal)
CPT/HCPCS: 36415; 80048

== ENCOUNTER 2024-05-06 14:49 | Outpatient (REF) | payer MEDICARE, OTHER, SELFPAY ==
[2024-05-06 15:41] LABS: HCT 36.6 % (36.0-46.0); HGB 11.5 g/dL (11.2-15.7); MCH 27.2 pg (27.0-33.0); MCHC 31.4 % (32.0-36.0); MCV 87 fL (80-95); Platelet Count 211 10^3/uL (130-400); RBC 4.23 10^6/uL (3.93-5.22); RDW 14.8 % (11.7-14.6); RDW-SD 47.6 fL; WBC 4.48 10^3/uL (4.4-10.8)
[2024-05-06 18:15] LABS: Anion Gap 11.2 mmol/L (3-11); BUN 23 mg/dL (7-18); CO2 22.8 mmol/L (21.0-32.0); CREATININE 1.7 mg/dL (0.55-1.02); Calcium 8.4 mg/dL (8.5-10.1); Chloride 107 mmol/L (98-107); Estimated GFR 29.94 (mL/min/1.73m2); Glucose 152 mg/dL (74-106); NT-proBNP 613 pg/mL (<300); Potassium 4.3 mmol/L (3.5-5.1); Sodium 141 mmol/L (136-145)
== END 2024-05-06 14:50 | disposition home or self-care (01) ==
LOC: NCHCN 14:49
PROVIDERS: PCP Family Medicine; Visit Provider Family Medicine
DX: R05.9 Cough, unspecified (principal)
CPT/HCPCS: 80048; 85027; 83880

== ENCOUNTER → 2024-05-31 10:44 | Outpatient (BNVA) | payer MEDICARE, OTHER, SELFPAY | PROVIDERS: PCP Family Medicine; Referring Provider Family Medicine; Visit Provider Internal Medicine Cardiovascular Disease | DX: I25.10 Atherosclerotic heart disease of native coronary artery without angina pectoris (principal) | CPT/HCPCS: 99213 ==

== ENCOUNTER → 2024-07-11 09:48 | Outpatient (BNVA) | payer MEDICARE, OTHER, SELFPAY | PROVIDERS: PCP Family Medicine; Referring Provider Family Medicine; Visit Provider Nurse Practitioner Adult Health | DX: G56.03 Carpal tunnel syndrome, bilateral upper limbs (principal); N18.9 Chronic kidney disease, unspecified; I10 Essential (primary) hypertension; R73.03 Prediabetes | CPT/HCPCS: 95909; 99215 ==

== ENCOUNTER → 2024-09-09 09:57 | Outpatient (BNVA) | payer MEDICARE, OTHER, SELFPAY | PROVIDERS: PCP Family Medicine; Referring Provider Family Medicine; Visit Provider Student in an Organized Health Care Education/Training Program | DX: G56.03 Carpal tunnel syndrome, bilateral upper limbs (principal) | CPT/HCPCS: 99214 ==

== ENCOUNTER 2024-09-18 10:57 | Outpatient (REF) | payer MEDICARE, OTHER, SELFPAY ==
[2024-09-18 15:36] LABS: HCT 34.1 % (36.0-46.0); HGB 10.3 g/dL (11.2-15.7); MCH 26.4 pg (27.0-33.0); MCHC 30.2 % (32.0-36.0); MCV 87 fL (80-95); MPV 11.1 fL (8.0-11.0); Platelet Count 227 10^3/uL (130-400); RDW 15.8 % (11.7-14.6); RDW-SD 50.6 fL; WBC 4.96 10^3/uL (4.4-10.8)
[2024-09-18 16:24] LABS: ALT 15 U/L (14-59); AST 14 U/L (15-37); Albumin 3.2 g/dL (3.4-5.0); Alkaline Phosphatase 84 U/L (46-116); Anion Gap 6.4 mmol/L (3-11); BUN 31 mg/dL (7-18); Bilirubin, Total 0.5 mg/dL (0.2-1.0); CO2 28.6 mmol/L (21.0-32.0); CREATININE 1.5 mg/dL (0.55-1.02); Calcium 9.6 mg/dL (8.5-10.1); Chloride 108 mmol/L (98-107); Estimated GFR 34.79 (mL/min/1.73m2); Glucose 106 mg/dL (74-106); NT-proBNP 500 pg/mL (<300); PHOSPHORUS 3.5 mg/dL (2.6-4.7); Potassium 4.5 mmol/L (3.5-5.1); Sodium 143 mmol/L (136-145); Total Protein 6.2 g/dL (6.4-8.2)
[2024-09-18 16:28] LABS: Hemoglobin A1C 6.4 % (<5.7)
[2024-09-18 19:34] LABS: Iron 37 ug/dL (50-170); Total Iron Binding Capacity 371 ug/dL (250-450); Transferrin Sat 10 % (15-50)
[2024-09-18 19:59] LABS: Ferritin 12 ng/mL (8-252); Vitamin D 25 Total 30 ng/mL (30-100)
[2024-09-19 09:47] LABS: Parathyroid Hormone,Intact 66.4 pg/mL (19.0-88.0)
== END 2024-09-18 10:58 | disposition home or self-care (01) ==
LOC: NCHCN 10:57
PROVIDERS: PCP Family Medicine; Visit Provider Family Medicine
DX: I50.30 Unspecified diastolic (congestive) heart failure (principal); R73.03 Prediabetes; N18.30 Chronic kidney disease, stage 3 unspecified
CPT/HCPCS: 80053; 82306; 85027; 82728; 83036; 83540; 83550; 83880; 83970; 84100

== ENCOUNTER 2024-10-08 00:22 | Outpatient (RCR) | payer MEDICARE, OTHER, SELFPAY ==
[2024-10-08] VITALS (7 sets, daily range): BP systolic 93–150; BP diastolic 42–80; PULSE 54–81; RESP 20–22; TEMP 34.7–36.6; O2SAT 98–100
[2024-10-08] MEDS: Normal Saline Flush 5 ML SYR IVP (11:15)
[2024-10-08] MEDS: IRON SUCROSE COMPLEX 300 MG in Normal Saline 250 ML 176.667 MG IVPB (11:32)
== END 2024-10-09 23:59 | disposition home or self-care (01) ==
LOC: INF 00:22
PROVIDERS: PCP Family Medicine; Visit Provider Family Medicine
DX: D50.9 Iron deficiency anemia, unspecified (principal)
CPT/HCPCS: 96365; 96366; J1756

== ENCOUNTER 2024-10-22 02:14 | Outpatient (RCR) | payer MEDICARE, OTHER, SELFPAY ==
[2024-10-16 11:00] VITALS: BP 100/49
[2024-10-16] MEDS: IRON SUCROSE COMPLEX 300 MG in Normal Saline 250 ML 176.667 MG IVPB (11:17)
[2024-10-16] MEDS: Normal Saline Flush 5 ML SYR IVP (11:20)
[2024-10-16 13:05] VITALS: BP 132/66
[2024-10-16 13:20] VITALS: BP 151/73
[2024-10-16 13:45] VITALS: BP 117/69
[2024-10-22 12:06] VITALS: BP 149/76
[2024-10-22] MEDS: IRON SUCROSE COMPLEX 300 MG in Normal Saline 250 ML 176.667 MG IVPB (12:08)
[2024-10-22] MEDS: Normal Saline Flush 10 ML SYR IVP (12:09)
[2024-10-22 13:51] VITALS: BP 164/68
[2024-10-22 14:06] VITALS: BP 145/80
[2024-10-22 14:22] VITALS: BP 158/59
[2024-10-22 14:37] VITALS: BP 154/83
== END 2024-11-09 23:59 | disposition home or self-care (01) ==
LOC: INF 02:14
PROVIDERS: PCP Family Medicine; Visit Provider Family Medicine
DX: D50.9 Iron deficiency anemia, unspecified (principal)
CPT/HCPCS: 96365; 96366; J1756

== ENCOUNTER 2024-10-28 12:58 | Outpatient (REF) | payer MEDICARE, OTHER, SELFPAY ==
[2024-10-28 16:28] LABS: HCT 36.2 % (36.0-46.0); HGB 11.2 g/dL (11.2-15.7); MCH 27.4 pg (27.0-33.0); MCHC 30.9 % (32.0-36.0); MCV 89 fL (80-95); MPV 11.5 fL (8.0-11.0); Platelet Count 219 10^3/uL (130-400); RBC 4.09 10^6/uL (3.93-5.22); RDW 19.3 % (11.7-14.6); RDW-SD 61.5 fL; WBC 4.82 10^3/uL (4.4-10.8)
[2024-10-28 16:52] LABS: Ferritin 236 ng/mL (8-252)
== END 2024-10-28 12:59 | disposition home or self-care (01) ==
LOC: NCHCN 12:58
PROVIDERS: PCP Family Medicine; Visit Provider Family Medicine
DX: D50.9 Iron deficiency anemia, unspecified (principal)
CPT/HCPCS: 85027; 82728

== ENCOUNTER 2024-12-17 02:19 | Outpatient (CLI) | payer MEDICARE, OTHER, SELFPAY ==
--- NOTE | 2024-12-17 13:32 | DI.RAD_ITS ---
Exam(s) XR FOOT RT COMPLETE EXAM: XR FOOT RT COMPLETE CLINICAL HISTORY: Right foot pain, M79.671. TECHNIQUE: 2D digital imaging was performed. COMPARISON: No exams were available for comparison FINDINGS: 3 views Prominent soft tissue swelling noted in the calf. There is no evidence of fracture in the foot nor diastasis of the Lisfranc joint. 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 There also milder degenerative changes at the great toe metatarsophalangeal joint. Large inferior calcaneal spur is noted with adjacent plantar fascia calcification. There is a small enthesophyte on the posterior calcaneus Achilles insertion site. Some degenerative change also noted at the articulation between the distal navicular bone and the cuneiform bones. IMPRESSION: No fractures. Midfoot arthrosis as described above. Large inferior calcaneal spur. DATA REPOSITORY: RADIATION DOSE DELIVERED:
== END 2024-12-17 02:39 ==
PROVIDERS: PCP Family Medicine; Visit Provider Podiatrist
DX: M79.671 Pain in right foot (principal); I12.9 Hypertensive chronic kidney disease with stage 1 through stage 4 chronic kidney disease, or unspecified chronic kidney disease; N18.30 Chronic kidney disease, stage 3 unspecified; I89.0 Lymphedema, not elsewhere classified; I73.9 Peripheral vascular disease, unspecified; B07.0 Plantar wart; L60.0 Ingrowing nail; R09.89 Other specified symptoms and signs involving the circulatory and respiratory systems; R60.0 Localized edema; I83.93 Asymptomatic varicose veins of bilateral lower extremities; L65.9 Nonscarring hair loss, unspecified; R23.8 Other skin changes; L60.8 Other nail disorders; L60.2 Onychogryphosis; L85.8 Other specified epidermal thickening; E55.9 Vitamin D deficiency, unspecified; I73.89 Other specified peripheral vascular diseases
CPT/HCPCS: 11730; 17110; 99214; 73630

== ENCOUNTER 2025-01-07 13:26 | Outpatient (CLI) | payer MEDICARE, OTHER, SELFPAY ==
--- NOTE | 2025-01-07 | DI.RAD_ITS ---
Exam(s) XR CHEST 2V PA LATERAL EXAM: XR CHEST 2V PA LATERAL CLINICAL HISTORY: COUGH R05.9. TECHNIQUE: 2D digital imaging was performed. COMPARISON: CR XR PORTABLE CHEST AP from 10/06/2023 FINDINGS: 2 views: Heart size is upper normal. The mediastinum is not widened. Again noted is a pulmonary venous hypertension pattern and increased interstitial markings but findings appear similar to September 2023. There are no pleural effusions. IMPRESSION: Minimal if any significant change when compared to chest x-ray of 10/06/2023. DATA REPOSITORY: RADIATION DOSE DELIVERED:
== END 2025-01-07 13:46 ==
LOC: DI 13:27
PROVIDERS: PCP Family Medicine; Visit Provider Physician Assistant Medical
DX: R05.9 Cough, unspecified (principal)
CPT/HCPCS: 71046

== ENCOUNTER 2025-01-27 16:25 | Outpatient (REF) | payer MEDICARE, OTHER, SELFPAY ==
[2025-01-27 20:59] LABS: HCT 38.3 % (36.0-46.0); HGB 11.9 g/dL (11.2-15.7); MCH 28.1 pg (27.0-33.0); MCHC 31.1 % (32.0-36.0); MCV 90 fL (80-95); MPV 10.9 fL (8.0-11.0); Platelet Count 207 10^3/uL (130-400); RBC 4.24 10^6/uL (3.93-5.22); RDW 15.6 % (11.7-14.6); RDW-SD 50.4 fL; WBC 5.34 10^3/uL (4.4-10.8)
[2025-01-27 21:29] LABS: Ferritin 99 ng/mL (8-252)
== END 2025-01-27 16:26 | disposition home or self-care (01) ==
LOC: NCHCN 16:25
PROVIDERS: PCP Family Medicine; Visit Provider Family Medicine
DX: D50.9 Iron deficiency anemia, unspecified (principal)
CPT/HCPCS: 85027; 82728

== ENCOUNTER 2025-03-03 07:18 | Outpatient (CLI) | payer MEDICARE, OTHER, SELFPAY ==
--- NOTE | 2025-03-03 | DI.US_ITS ---
Exam(s) US ABDOMEN LIMITED EXAM: US ABDOMEN LIMITED CLINICAL HISTORY: RUQ PAIN R10.11 TECHNIQUE: Ultrasound of the right upper quadrant performed using standard protocol. COMPARISON: CT CT ABDOMEN PELVIS WO from 12/17/2022 FINDINGS: LIVER: Normal size. Normalechogenicity. No focal liver lesions are seen.. GALLBLADDER: No evidence of cholelithiasis. No evidence of wall thickening. No pericholecystic fluid identified. MORALES'S SIGN: Negative. BILIARY SYSTEM: No intrahepatic or extrahepatic biliary ductal dilation. RIGHT KIDNEY: Status post right nephrectomy. PANCREAS: Normal where visualized. ABDOMINAL AORTA AND IVC: Visualized portions normal caliber. ASCITES: None seen. IMPRESSION: No acute abnormality in the right upper quadrant. Status post right nephrectomy. DATA REPOSITORY:
== END 2025-03-03 07:38 ==
LOC: DI 07:19
PROVIDERS: PCP Family Medicine; Visit Provider Family Medicine
DX: R10.11 Right upper quadrant pain (principal)
CPT/HCPCS: 76705

== ENCOUNTER 2025-04-28 10:23 | Outpatient (REF) | payer MEDICARE, OTHER, SELFPAY ==
[2025-04-28 14:46] LABS: HCT 35.6 % (36.0-46.0); HGB 11.0 g/dL (11.2-15.7); MCH 29.0 pg (27.0-33.0); MCHC 30.9 % (32.0-36.0); MCV 94 fL (80-95); MPV 10.8 fL (8.0-11.0); Platelet Count 188 10^3/uL (130-400); RBC 3.79 10^6/uL (3.93-5.22); RDW 14.5 % (11.7-14.6); RDW-SD 50.1 fL; WBC 5.83 10^3/uL (4.4-10.8)
[2025-04-28 14:59] LABS: Ferritin 37 ng/mL (7-271)
== END 2025-04-28 10:24 | disposition home or self-care (01) ==
LOC: NCHCN 10:23
PROVIDERS: PCP Family Medicine; Visit Provider Family Medicine
DX: D50.9 Iron deficiency anemia, unspecified (principal)
CPT/HCPCS: 85027; 82728

== ENCOUNTER 2025-05-30 11:41 | Inpatient (IN) | payer MEDICARE, OTHER, SELFPAY ==
[2025-05-30] VITALS (7 sets, daily range): BP systolic 108–149; BP diastolic 30–103; PULSE 81–88; RESP 15–16; TEMP 36.1–37.1; O2SAT 93–98
[2025-05-30] MEDS: ACETAMINOPHEN 1,000 MG/100 ML BAG 400 MG IVPB (12:48)
[2025-05-30] MEDS: Ondansetron 4 MG/2 ML VIAL IVP (12:49)
[2025-05-30] MEDS: Lactated Ringers 1,000 ML 1000 ML IV (12:49)
[2025-05-30 12:59] LABS: Abs Immature Grans 0.03 10^3/uL (0.0-0.06); HCT 37.2 % (36.0-46.0); HGB 12.0 g/dL (11.2-15.7); Immature Grans % 0.4 %; MCH 29.1 pg (27.0-33.0); MCHC 32.3 % (32.0-36.0); MCV 90 fL (80-95); MPV 10.1 fL (8.0-11.0); Platelet Count 182 10^3/uL (130-400); RBC 4.12 10^6/uL (3.93-5.22); RDW 13.3 % (11.7-14.6); RDW-SD 44.6 fL; WBC 7.02 10^3/uL (4.4-10.8)
[2025-05-30 13:29] LABS: Lipase 17 U/L (<53)
[2025-05-30 13:31] LABS: Magnesium 1.9 mg/dL (1.6-2.6)
[2025-05-30 13:33] LABS: ALT 11 U/L (10-49); AST 16 U/L (<34); Albumin 3.7 g/dL (3.2-5.0); Alkaline Phosphatase 82 U/L (46-116); Anion Gap 8.8 mmol/L (3-11); BUN 20 mg/dL (9-23); Bilirubin, Total 1.1 mg/dL (0.2-1.2); CO2 28.2 mmol/L (20.0-31.0); Calcium 9.5 mg/dL (8.3-10.6); Chloride 105 mmol/L (98-107); Glucose 114 mg/dL (74-106); Potassium 4.2 mmol/L (3.5-5.1); Sodium 142 mmol/L (136-145); Total Protein 6.2 g/dL (5.7-8.2)
--- NOTE | 2025-05-30 13:46 | W.ED.GENAD ---
Discharge Plan Disposition Patient Disposition: Admit to [facility] Condition: Serious Discharge Details Clinical Impression: Small bowel obstruction Primary Care Provider: Dulce Hidalgo ED Provider: Amilcar Zabala Home Meds and New Rx's Prescriptions: No Action carvedilol 25 mg tablet 25 mg PO BID Rx Instructions: must administer with a meal/food losartan 25 mg tablet 25 mg PO DAILY spironolactone 25 mg tablet 25 mg PO DAILY cetirizine [Allergy Relief (cetirizine)] 10 mg tablet 10 mg PO DAILY PRN lorazepam 0.5 mg tablet 0.5 mg PO .prior to test PRN cyanocobalamin (vitamin B-12) [Vitamin B-12] 2,500 mcg tablet, sublingual 2,500 mcg sublingual DAILY simvastatin 10 mg tablet 10 mg PO DAILY Qty: 90 3RF rivaroxaban 15 mg tablet 10 mg PO DAILY Rx Instructions: must administer with evening meal ketoconazole 2 % cream 1 applic topical DAILY Qty: 120 6RF Rx Instructions: Apply to 1g to skin and toenails once daily acetaminophen [Tylenol Extra Strength] 500 mg tablet 500 mg PO PRN furosemide 20 mg tablet 40 mg PO DAILY Qty: 0 0RF Patient Comments: Take 1 tablet by mouth once a day meclizine 12.5 mg tablet 12.5 mg PO TID PRN docusate sodium 100 mg capsule 100 mg PO DAILY PRN omeprazole 20 mg capsule,delayed release(DR/EC) 20 mg PO DAILY calcium carb, citrate-vit D3 [Citracal-D3 Slow Release] 1 EACH tablet extended release 1 tab PO DAILY ondansetron 4 mg tablet,disintegrating 4 mg PO Q6H PRN (Reason: nausea and vomiting) Qty: 14 0RF magnesium oxide 400 mg Capsule 400 mg PO DAILY HPI General Date/Time Provider Initiated Documentation: 05/30/25 12:24. Limitations to Documentation: no limitations. Information obtained by: patient. HPI Narrative: HISTORY OF PRESENT ILLNESS This is an 84-year-old female with a history of ureteral cancer s/p resection, chemo and radiation, presenting with abdominal pain, nausea, and vomiting. The patient began experiencing symptoms on 05/28/2025, which she suspects may be due to another bowel obstruction. She has a history of a similar condition years ago, which did not necessitate surgical intervention. The cause was attributed to intestinal narrowing from radiation therapy. She experienced intermittent vomiting throughout Monday night and again this morning. She has not taken any analgesics today. Her bowel movements are typically regular, occurring at least every other day, but she had three on Monday. She reports no passage of gas. She self-administered Zofran at 4:00 AM and 7:00 PM on 05/29/2025. The pain starts in the upper abdomen and radiates around. The patient reports that the pain is not constant but is present in specific areas. The patient sought medical care due to her history of cancer and concerns about a potential blockage. She underwent radiation therapy following the removal of her kidney and ureter due to cancer. She also received chemotherapy and has been in remission since 2009. She has a history of double mastectomy. PAST SURGICAL HISTORY: - Kidney and ureter removal - Double mastectomy Related Data Home Medications ?Medication ?Instructions ?Recorded ?Confirmed calcium ER 600 mg (as carb,cit)-D3 1 tab PO DAILY 11/30/13 05/30/25 12.5 mcg (500 unit) tablet, ext.rel (Citracal-D3 Slow Release) magnesium oxide 400 mg PO DAILY 04/04/18 05/30/25 acetaminophen 500 mg tablet 500 mg PO PRN 09/21/18 05/30/25 (Tylenol Extra Strength) ondansetron 4 mg disintegrating 4 mg PO Q6H PRN nausea and 07/11/19 05/30/25 tablet vomiting #14 tabs furosemide 20 mg tablet 40 mg (2 x 20 mg) PO DAILY #0 tabs 01/19/23 05/30/25 docusate sodium 100 mg capsule 100 mg PO DAILY PRN 03/14/23 05/30/25 meclizine 12.5 mg tablet 12.5 mg PO TID PRN 03/14/23 05/30/25 carvedilol 25 mg tablet 25 mg PO BID 11/22/23 05/30/25 cetirizine 10 mg tablet (Allergy 10 mg PO DAILY PRN 11/22/23 05/30/25 Relief (cetirizine)) lorazepam 0.5 mg tablet 0.5 mg PO .prior to test PRN 11/22/23 05/30/25 losartan 25 mg tablet 25 mg PO DAILY 11/22/23 05/30/25 spironolactone 25 mg tablet 25 mg PO DAILY 11/22/23 05/30/25 cyanocobalamin (vitamin B-12) 2,500 mcg sublingual DAILY 12/07/23 05/30/25 2,500 mcg sublingual tablet (Vitamin B-12) simvastatin 10 mg tablet 10 mg PO DAILY #90 tabs 12/07/23 05/30/25 omeprazole 20 mg capsule,delayed 20 mg PO DAILY 09/09/24 05/30/25 release rivaroxaban 15 mg tablet 10 mg PO DAILY 09/10/24 05/30/25 ketoconazole 2 % topical cream 1 applic topical DAILY #120 grams 12/17/24 05/30/25 Previous Rx's ?Medication ?Instructions ?Recorded ondansetron 4 mg disintegrating 4 mg PO Q6H PRN nausea and 07/11/19 tablet vomiting #14 tabs furosemide 20 mg tablet 40 mg (2 x 20 mg) PO DAILY #0 tabs 01/19/23 simvastatin 10 mg tablet 10 mg PO DAILY #90 tabs 12/07/23 ketoconazole 2 % topical cream 1 applic topical DAILY #120 grams 12/17/24 Allergies Allergy/AdvReac Type Severity Reaction Status Date / Time latex Allergy Mild abrasions Verified 05/30/25 13:02 Sulfa (Sulfonamide AdvReac Severe liver Verified 05/30/25 13:02 Antibiotics) damage ciprofloxacin (From Cipro) AdvReac Intermediate unknown Verified 05/30/25 13:02 glucosamine AdvReac Intermediate Nausea Verified 05/30/25 13:02 glue on bandaids Allergy Mild rash Uncoded 05/30/25 13:02 Epideral Dressing AdvReac Severe Blistering Uncoded 05/30/25 13:02 General Stated Complaint: Abd Prob SADIE: 3 Review of Systems All systems reviewed & are unremarkable except as noted in HPI and below Constitutional Constitutional: Denies fever(s) Exam Const General: cooperative and no acute distress HENOK Mouth: moist mucous membranes Eyes Conjunctivae: normal conjunctivae Sclera: normal sclerae Neck Neck: trachea midline and supple Resp Auscultation: clear to auscultation bilaterally, no rales, no rhonchi and no wheezes Cardio Rate: regular rate and not tachycardic Rhythm: regular rhythm GI Palpation: soft, not firm, no guarding, no masses, not rigid and tender (Mid lower abdomen) with no rebound tenderness Auscultation: hypoactive bowel sounds Skin General skin exam: no rashes or lesions noted Neuro General: patient alert, patient awake, patient oriented x3 and tone normal Extrem General: no edema Psych Appearance: grossly normal Mental Status: mental status grossly normal Course Vital Signs Vital signs: Vital Signs Temperature 36.7 C 05/30/25 11:46 Pulse 87 05/30/25 11:46 Respiratory Rate 16 05/30/25 11:46 Blood Pressure 120/103 H 05/30/25 11:46 Pulse Oximetry 97 05/30/25 11:46 Temperature 36.7 C 05/30/25 12:57 Temperature Source Oral 05/30/25 12:57 Pulse 87 05/30/25 12:57 Respiratory Rate 16 05/30/25 12:57 Blood Pressure 120/103 H 05/30/25 12:57 Blood Pressure Position Supine 05/30/25 12:57 Pulse Oximetry 97 05/30/25 12:57 Oxygen Delivery Method Room Air 05/30/25 12:57 Oxygen Flow Rate 0 05/30/25 12:57 Lab/Test Results Lab/Test Results: Laboratory Tests Range/Units 05/30/25 12:55 WBC (4.4-10.8) 10^3/uL 7.02 RBC (3.93-5.22) 10^6/uL 4.12 Hgb (11.2-15.7) g/dL 12.0 Hct (36.0-46.0) % 37.2 MCV (80-95) fL 90 MCH (27.0-33.0) pg 29.1 MCHC (32.0-36.0) % 32.3 RDW (11.7-14.6) % 13.3 Plt Count (130-400) 10^3/uL 182 MPV (8.0-11.0) fL 10.1 Immature Gran % % 0.4 Neutrophils % % 70.6 Lymphocytes % % 20.8 Monocytes % % 7.5 Eosinophils % % 0.6 Basophils % % 0.1 Nucleated RBC % (0.0-0.3) % 0.0 Absolute Neutrophils (1.2-6.7) 10^3/uL 4.95 Absolute Lymphocytes (1.2-3.4) 10^3/uL 1.46 Absolute Monocytes (0.1-0.8) 10^3/uL 0.53 Absolute Eosinophils (0.0-0.7) 10^3/uL 0.04 Absolute Basophils (0.0-0.2) 10^3/uL 0.01 Sodium (136-145) mmol/L 142 Potassium (3.5-5.1) mmol/L 4.2 Chloride (98-107) mmol/L 105 Carbon Dioxide (20.0-31.0) mmol/L 28.2 Anion Gap (3-11) mmol/L 8.8 BUN (9-23) mg/dL 20 Creatinine (0.55-1.02) mg/dL 1.51 H Est GFR (CKD-EPI 2020) (mL/min/1.73m2) 32.94 Glucose (74-106) mg/dL 114 H Calcium (8.3-10.6) mg/dL 9.5 Magnesium (1.6-2.6) mg/dL 1.9 Total Bilirubin (0.2-1.2) mg/dL 1.1 AST (<34) U/L 16 ALT (10-49) U/L 11 Alkaline Phosphatase (46-116) U/L 82 Total Protein (5.7-8.2) g/dL 6.2 Albumin (3.2-5.0) g/dL 3.7 Lipase (<53) U/L 17 Medical Decision Making ASSESSMENT AND PLAN Initial Assessment: 84-year-old female with abdominal pain, nausea, vomiting since Monday. History of bowel obstruction remotely likely due to radiation-induced narrowing of the intestine. Differential Diagnosis: - Acute bowel obstruction - Less likely UTI - Pancreatitis - Recurrence of cancer ED Course: - Intravenous fluids started - Intravenous Tylenol administered - Intravenous Zofran administered - Labs reviewed and creatinine 1.51, elevated but at baseline consistent with CKD. - CT of the abdomen pelvis was interpreted by radiology: Findings consistent with small-bowel obstruction with transition point in the right lower pelvis. Small amount of ascites. No wall thickening. - I spoke with Dr. Guardado, on-call general surgeon, he will evaluate the patient and agrees with NG tube placement. - I spoke with Dr. Zamora, on-call hospitalist, discussed ED presentation course, he will meet the patient. Clinical Impression: Small bowel obstruction acute This document was written with the assistance of RICARDA Man. The patient consented to its use. Lab Data Lab results reviewed: Yes I reviewed the patient's lab results. Labs: Laboratory Tests Range/Units 05/30/25 05/30/25 12:55 14:00 WBC (4.4-10.8) 10^3/uL 7.02 RBC (3.93-5.22) 10^6/uL 4.12 Hgb (11.2-15.7) g/dL 12.0 Hct (36.0-46.0) % 37.2 MCV (80-95) fL 90 MCH (27.0-33.0) pg 29.1 MCHC (32.0-36.0) % 32.3 RDW (11.7-14.6) % 13.3 Plt Count (130-400) 10^3/uL 182 MPV (8.0-11.0) fL 10.1 Immature Gran % % 0.4 Neutrophils % % 70.6 Lymphocytes % % 20.8 Monocytes % % 7.5 Eosinophils % % 0.6 Basophils % % 0.1 Nucleated RBC % (0.0-0.3) % 0.0 Absolute Neutrophils (1.2-6.7) 10^3/uL 4.95 Absolute Lymphocytes (1.2-3.4) 10^3/uL 1.46 Absolute Monocytes (0.1-0.8) 10^3/uL 0.53 Absolute Eosinophils (0.0-0.7) 10^3/uL 0.04 Absolute Basophils (0.0-0.2) 10^3/uL 0.01 Sodium (136-145) mmol/L 142 Potassium (3.5-5.1) mmol/L 4.2 Chloride (98-107) mmol/L 105 Carbon Dioxide (20.0-31.0) mmol/L 28.2 Anion Gap (3-11) mmol/L 8.8 BUN (9-23) mg/dL 20 Creatinine (0.55-1.02) mg/dL 1.51 H Est GFR (CKD-EPI 2020) (mL/min/1.73m2) 32.94 Glucose (74-106) mg/dL 114 H Calcium (8.3-10.6) mg/dL 9.5 Magnesium (1.6-2.6) mg/dL 1.9 Total Bilirubin (0.2-1.2) mg/dL 1.1 AST (<34) U/L 16 ALT (10-49) U/L 11 Alkaline Phosphatase (46-116) U/L 82 Total Protein (5.7-8.2) g/dL 6.2 Albumin (3.2-5.0) g/dL 3.7 Lipase (<53) U/L 17 Urine Color (Yellow) Yellow Urine Clarity (Clear) Clear Urine pH (5-8) 6.0 Ur Specific Connell (1.005-1.025) 1.020 Urine Protein (Neg-Trace) mg/dL Trace Urine Ketones (Negative) mg/dL 40 H Urine Blood (Negative) Negative Urine Nitrite (Negative) Negative Urine Bilirubin (Negative) Small H Urine Urobilinogen (Up to 0.2) mg/dL 4.0 H Ur Leukocyte Esterase (Negative) Negative Urine Glucose (Negative) mg/dL Negative PFSH All Active Problems (Updated 05/30/25 @ 14:33 by Amilcar Zabala MD) Small bowel obstruction (Acute) Plantar verruca (Acute) PAD (peripheral artery disease) (Acute) Edema (Acute) Lymphedema (Acute) Bilateral carpal tunnel syndrome (Acute) Coronary artery disease (Chronic) History of total left knee replacement (Acute) Other B-complex deficiencies (Acute) Generalized osteoarthritis (Acute) Vitamin D deficiency (Acute) Tremor (Acute) essential Chronic rhinitis (Acute) Constipation (Acute) Degenerative arthritis of hand (Acute) bilateral Upper back pain (Acute) Bilateral leg edema (Acute) Tricuspid valve disease (Acute) Prediabetes (Acute) HLD (hyperlipidemia) (Acute) HTN (hypertension) (Chronic) Mild tricuspid regurgitation (Acute) DJD (degenerative joint disease), lumbar (Acute) Atherosclerosis of aorta (Acute) Spinal stenosis at L4-L5 level (Acute) Severe Compression fracture of L5 vertebra (Acute) Noted on CT scan 10/02 Compression fracture of L4 vertebra (Acute) Noted on CT scan 08/2022 Nausea and vomiting (Acute) Upper abdominal pain, unspecified (Acute) Medical History NSTEMI (non-ST elevated myocardial infarction) 10/07/23 History of adenomatous polyp of colon Hx of deep venous thrombosis Ovarian cancer Cancer of right ureter stage 3 Anemia Pulmonary embolism Stage 3 chronic kidney disease Obesity GERD (gastroesophageal reflux disease) Ventral hernia Dehydration Neutropenia drug induced IT band syndrome Actinic keratosis Seborrheic keratoses Osteopenia Breast cancer, stage 1 Benign essential tremor BRCA2 positive Incisional hernia H/O primary malignant neoplasm of urinary bladder H/O ovarian cancer H/O renal cell cancer Surgical History S/P cardiac cath 10/03 [place] [facility] [place] obstructive CAD Hx of bilateral mastectomy H/O right nephrectomy Right, with partial uretectomy, Dr Ariel Do History of bowel resection partial, unknown date History of appendectomy unknown date S/P recurrent ventral herniorrhaphy (07/17/18) Dr Michael Carroll, [facility] S/P TKR (total knee replacement) S/P hysterectomy with oophorectomy H/O partial cystectomy Status post cataract extraction and insertion of intraocular lens of right eye (04/23/18) Status post cataract extraction and insertion of intraocular lens of left eye (04/09/18) Social History Smoking/Tobacco Use Status: Never Smoking risk assessment performed?: Yes Alcohol Intake: never Drug use: Never Substance use type: does not use Current gender identity: female Do you feel safe at home: Yes Do you feel safe in your relationship?: Yes
--- NOTE | 2025-05-30 13:52 | DI.CT_ITS ---
Exam(s) CT ABDOMEN PELVIS WO EXAM: CT ABDOMEN PELVIS WO CLINICAL HISTORY: abdominal pain, concern for bowel obstruction. TECHNIQUE: Imaging Protocol: Axial computed tomography images with coronal and sagittal reformatted images were created and reviewed. Oral: no COMPARISON: CT CT ABDOMEN PELVIS WO from 12/17/2022 FINDINGS: Lung Bases: The heart is enlarged. Fibrotic changes are noted at the lung bases. Small hiatal hernia. Liver: Normal density. No suspicious mass. Gallbladder and biliary tract: No radiodense calculus or biliary dilation. Pancreas: Normal density. No abnormal calcifications or inflammatory process. Spleen: Normal. Kidneys: Normal size, contour and axis. No radiodense stones. No obstructive uropathy. No suspicious masses seen. Adrenal glands: No masses seen. Lymph nodes: Within normal limits. Vasculature: Abdominal aorta non-dilated. Soft tissues: Unremarkable. Bladder: Empty, unable to be evaluated. Bowel: There are abnormally dilated loops of small bowel, up to 4.6 cm. The there is a transition point in the pelvis, to the right of midline. No wall thickening or pneumatosis. Peritoneal cavity: There is a trace amount of ascites around the liver. There is a small amount of fluid in the low pelvis.. No focal collection. No mesenteric inflammatory response. Reproductive organs: Unremarkable. Bones: Old compression fractures of L4 and L5. IMPRESSION: Findings consistent with small-bowel obstruction with transition point in the right lower pelvis. Small amount of ascites. No wall thickening. Findings called to Dr. Zabala of the emergency department. RADIATION DOSE DELIVERED: Total DLP DATA REPOSITORY: All CT scans at this facility are submitted to the National Radiology Data Registry (NRDR) Dose Index Registry (DIR) with the [employer] (ACR). RADIATION OPTIMIZATION: All CT scans at this facility use at least one of these dose optimization techniques: automated exposure control; mA and/or kV adjustment per patient size (includes targeted exams where dose is matched to clinical indication); or iterative reconstruction.
[2025-05-30 14:12] LABS: Glucose Negative (Negative)
--- NOTE | 2025-05-30 14:32 | W.PM.HP.N ---
Date of service: 05/30/25 Time of Service: 14:32 Assessment and Plan Assessment and plan (1) Small bowel obstruction: Status: Acute Assessment and plan: As per HPI surgical consultation w Dr. Guardado : NGT - conisering oral contrast then imaging - please read notes NPO except meds IVF slow rate while NPO (2) Coronary artery disease: Status: Chronic Assessment and plan: Ongoing home regimen (3) HLD (hyperlipidemia): Status: Acute Assessment and plan: ongoing home regimen (4) HTN (hypertension): Status: Chronic Assessment and plan: Ongoing home medicine regimen (5) Nausea and vomiting: Status: Acute Assessment and plan: PRN compazine IV (6) Upper abdominal pain, unspecified: Status: Acute Assessment and plan: Schedule IV acetaminophen (7) Pulmonary embolism: Assessment and plan: Home dose rivaroxaban Discussed with Dr. Betancourt History of Present Illness History of Present Illness Chief Complaint: ABd pain nausea vomiting Narrative: This 84 yo female patient with a PMHx of CKD, HTN, HLD, CHF presented to the ED for evaluation of abdominal pain nausea and vomiting starting Monday night . In the ED the patient was afebrile and hemodynamically stable on presentation. Work up in the ED was positive for dilated loops of smaal bowel with transition point inthe pelvis on ABD/pelvis CT concerning for SBO. Blood work was w/o actionable findings except for Cr 1.5 around baseline The patient was admitted to the medical surgical floor by the hospitalist service for ongoing evaluation and management while awaiting surgical consultation. The patient want CPR and not intubation or invsive ventilatory support. The patient denies, fever, headache, hematemesis, chest pain, flatus, diarrhea, or dysuria. The patient reports , ls BM on Monday w/o melena or hematochezia, nausea, vomiting and abdominal pain . Review of Systems All systems reviewed & are unremarkable except as noted in HPI and below PFSH All Active Problems (Updated 05/30/25 @ 14:33 by Amilcar Zabala MD) Small bowel obstruction (Acute) Plantar verruca (Acute) PAD (peripheral artery disease) (Acute) Edema (Acute) Lymphedema (Acute) Bilateral carpal tunnel syndrome (Acute) Coronary artery disease (Chronic) History of total left knee replacement (Acute) Other B-complex deficiencies (Acute) Generalized osteoarthritis (Acute) Vitamin D deficiency (Acute) Tremor (Acute) essential Chronic rhinitis (Acute) Constipation (Acute) Degenerative arthritis of hand (Acute) bilateral Upper back pain (Acute) Bilateral leg edema (Acute) Tricuspid valve disease (Acute) Prediabetes (Acute) HLD (hyperlipidemia) (Acute) HTN (hypertension) (Chronic) Mild tricuspid regurgitation (Acute) DJD (degenerative joint disease), lumbar (Acute) Atherosclerosis of aorta (Acute) Spinal stenosis at L4-L5 level (Acute) Severe Compression fracture of L5 vertebra (Acute) Noted on CT scan 10/02 Compression fracture of L4 vertebra (Acute) Noted on CT scan 08/2022 Nausea and vomiting (Acute) Upper abdominal pain, unspecified (Acute) Medical History NSTEMI (non-ST elevated myocardial infarction) 10/07/23 History of adenomatous polyp of colon Hx of deep venous thrombosis Ovarian cancer Cancer of right ureter stage 3 Anemia Pulmonary embolism Stage 3 chronic kidney disease Obesity GERD (gastroesophageal reflux disease) Ventral hernia Dehydration Neutropenia drug induced IT band syndrome Actinic keratosis Seborrheic keratoses Osteopenia Breast cancer, stage 1 Benign essential tremor BRCA2 positive Incisional hernia H/O primary malignant neoplasm of urinary bladder H/O ovarian cancer H/O renal cell cancer Surgical History S/P cardiac cath 10/03 at [facility] [place] non obstructive CAD Hx of bilateral mastectomy H/O right nephrectomy Right, with partial uretectomy, Dr Ariel Do History of bowel resection partial, unknown date History of appendectomy unknown date S/P recurrent ventral herniorrhaphy (07/17/18) Dr Michael Carroll, [facility] S/P TKR (total knee replacement) S/P hysterectomy with oophorectomy H/O partial cystectomy Status post cataract extraction and insertion of intraocular lens of right eye (04/23/18) Status post cataract extraction and insertion of intraocular lens of left eye (04/09/18) Social History Smoking/Tobacco Use Status: Never Smoking risk assessment performed?: Yes Alcohol Intake: never Drug use: Never Substance use type: does not use Housing: house Current gender identity: female Do you feel safe at home: Yes Do you feel safe in your relationship?: Yes Meds Allergies and Home Medications Allergies Allergy/AdvReac Type Severity Reaction Status Date / Time latex Allergy Mild abrasions Verified 05/30/25 13:02 Sulfa (Sulfonamide AdvReac Severe liver Verified 05/30/25 13:02 Antibiotics) damage ciprofloxacin (From Cipro) AdvReac Intermediate unknown Verified 05/30/25 13:02 glucosamine AdvReac Intermediate Nausea Verified 05/30/25 13:02 glue on bandaids Allergy Mild rash Uncoded 05/30/25 13:02 Epideral Dressing AdvReac Severe Blistering Uncoded 05/30/25 13:02 Home Medications ?Medication ?Instructions ?Recorded ?Confirmed ?Type calcium ER 600 mg (as carb,cit)-D3 1 tab PO DAILY 11/30/13 05/30/25 History 12.5 mcg (500 unit) tablet, ext.rel (Citracal-D3 Slow Release) magnesium oxide 400 mg PO DAILY 04/04/18 05/30/25 History acetaminophen 500 mg tablet 500 mg PO PRN 09/21/18 05/30/25 History (Tylenol Extra Strength) ondansetron 4 mg disintegrating 4 mg PO Q6H PRN nausea and 07/11/19 05/30/25 Rx tablet vomiting #14 tabs furosemide 20 mg tablet 40 mg (2 x 20 mg) PO DAILY #0 tabs 01/19/23 05/30/25 Rx docusate sodium 100 mg capsule 100 mg PO DAILY PRN 03/14/23 05/30/25 History meclizine 12.5 mg tablet 12.5 mg PO TID PRN 03/14/23 05/30/25 History carvedilol 25 mg tablet 25 mg PO BID 11/22/23 05/30/25 History cetirizine 10 mg tablet (Allergy 10 mg PO DAILY PRN 11/22/23 05/30/25 History Relief (cetirizine)) lorazepam 0.5 mg tablet 0.5 mg PO .prior to test PRN 11/22/23 05/30/25 History losartan 25 mg tablet 25 mg PO DAILY 11/22/23 05/30/25 History spironolactone 25 mg tablet 25 mg PO DAILY 11/22/23 05/30/25 History cyanocobalamin (vitamin B-12) 2,500 mcg sublingual DAILY 12/07/23 05/30/25 History 2,500 mcg sublingual tablet (Vitamin B-12) simvastatin 10 mg tablet 10 mg PO DAILY #90 tabs 12/07/23 05/30/25 Rx omeprazole 20 mg capsule,delayed 20 mg PO DAILY 09/09/24 05/30/25 History release rivaroxaban 15 mg tablet 10 mg PO DAILY 09/10/24 05/30/25 History ketoconazole 2 % topical cream 1 applic topical DAILY #120 grams 12/17/24 05/30/25 Rx Exam Narrative Exam Narrative: A& O X4, no acute distress, no focal neurological deficit, clear lungs, S1 S2 regular , no murmur PPPX4, abdomen is non-distended, soft with epigastric and hypogastric tenderness, ongoing non-pitting bilat Le edema, NGT in place Results Labs 05/30/25 12:55 05/30/25 12:55 Labs: Laboratory Results - last 24 hr 05/30/25 05/30/25 12:55 14:00 WBC 7.02 RBC 4.12 Hgb 12.0 Hct 37.2 MCV 90 MCH 29.1 MCHC 32.3 RDW 13.3 Plt Count 182 MPV 10.1 Immature Gran % 0.4 Neutrophils % 70.6 Lymphocytes % 20.8 Monocytes % 7.5 Eosinophils % 0.6 Basophils % 0.1 Nucleated RBC % 0.0 Absolute Neutrophils 4.95 Absolute Lymphocytes 1.46 Absolute Monocytes 0.53 Absolute Eosinophils 0.04 Absolute Basophils 0.01 Sodium 142 Potassium 4.2 Chloride 105 Carbon Dioxide 28.2 Anion Gap 8.8 BUN 20 Creatinine 1.51 H Est GFR (CKD-EPI 2020) 32.94 Glucose 114 H Calcium 9.5 Magnesium 1.9 Total Bilirubin 1.1 AST 16 ALT 11 Alkaline Phosphatase 82 Total Protein 6.2 Albumin 3.7 Lipase 17 Urine Color Yellow Urine Clarity Clear Urine pH 6.0 Ur Specific Bland 1.020 Urine Protein Trace Urine Ketones 40 H Urine Blood Negative Urine Nitrite Negative Urine Bilirubin Small H Urine Urobilinogen 4.0 H Ur Leukocyte Esterase Negative Urine Glucose Negative Last Vital Signs Temp 36.7 C 05/30/25 12:57 Pulse 87 05/30/25 12:57 Resp 16 05/30/25 12:57 BP 120/103 H 05/30/25 12:57 Pulse Ox 97 05/30/25 12:57 VTE Prohylaxis Risk Level: Moderate/High Risk Contraindications: None Prophylaxis: Pharmacologic Time Spent Time spent with Patient: >75 minutes Time was spent: preparing to see the patient(eg.review tests), obtaining and/or reviewing separately otained hiistory, ordering medications,tests, procedures, referring, communicating with other health nonfarm animal caretaker, indepentently interpreting results, counseling the patient, care coordination and other
--- NOTE | 2025-05-30 15:41 | DI.RAD_ITS ---
Exam(s) XR CHEST 1V IN DI DEPT EXAM: XR CHEST 1V IN DI DEPT CLINICAL HISTORY: post NG placement to confirm TECHNIQUE: 2D digital imaging was performed. COMPARISON: CR XR CHEST 2V PA LATERAL from 01/07/[address] ABDOMEN PELVIS WO from 05/30/2025 FINDINGS: A nasogastric tube has been inserted which projects in the antrum or body of the stomach. LUNGS: Mild chronic increased interstitial changes. No infiltrate or pulmonary edema. No pleural abnormality seen. HEART: Mildly enlarged. AORTA: Normal diameter. BONES: Unremarkable for age. Soft tissues: Small hiatal hernia. IMPRESSION: Satisfactory placement of nasogastric tube. DATA REPOSITORY: RADIATION DOSE DELIVERED:
--- NOTE | 2025-05-30 16:09 | W.SURGCON ---
Date of service: 05/30/25 Time of Service: 16:09 Assessment and Plan Assessment and plan (1) Small bowel obstruction: Status: Acute Assessment and plan: I reviewed the images of the CT scan, and it does seem to support the diagnosis of a small bowel obstruction. I suspect this may be related to some stricturing of the small bowel from the radiation therapy as the location appears fairly similar to her previous CT scans. At this point, her exam, hemodynamics, and labs are all reassuring. She is already has a nasogastric tube inserted, and has had some relief of her symptoms. I think a trial of nonoperative management with a Gastrografin challenge is very appropriate. History of Present Illness History of Present Illness Chief Complaint: nausea and vomiting Narrative: Coby is 84 years old. She comes to the hospital with acute onset of nausea and vomiting with some mild crampy abdominal discomfort. It is similar to symptoms that she is experience with bowel obstructions in the past. She had a regular meal on Monday, but later Monday night developed the acute onset of nausea, followed by vomiting of some undigested food from earlier in the day. She had had 3 bowel movements during the course of Monday, but noted no bowel movements on , and the onset of some crampy, perhaps colicky type pain that radiated across the mid abdomen from into Monday. Discomfort became a little more intense today, so she came to the emergency department. Labs in the ER were mostly reassuring, with a normal white blood cell count. Patient did have a slightly increased serum creatinine. She underwent a CAT scan of the abdomen and pelvis that confirmed the presence of a small bowel obstruction, with suggestion of a transition point in the right lower quadrant. 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 This was complemented with chemotherapy as well as radiation. She also underwent an open incisional hernia repair with implantation of a retrorectus mesh in 2019. Review of Systems Constitutional Constitutional: Denies fatigue, Denies fever(s), Reports poor appetite and Denies weakness Eyes Eyes: Reports system reviewed and no additional complaints, except as documented ENT Ears, Nose, Mouth, and Throat: Reports system reviewed and no additional complaints, except as documented Cardiovascular Cardiovascular: Denies chest pain and Denies dyspnea Respiratory Respiratory: Denies chest congestion, Denies cough and Denies dyspnea Gastrointestinal Gastrointestinal: Denies abdominal pain, Denies change in stool character, Reports nausea and Reports vomiting Genitourinary Genitourinary: Reports system reviewed and no additional complaints, except as documented Musculoskeletal Musculoskeletal: Reports system reviewed and no additional complaints, except as documented Neurologic Neurologic: Denies weakness Endocrine Endocrine: Denies fatigue Hematologic/Lymphatic Hematologic/Lymphatic: Denies easy bleeding and Denies easy bruising PFSH All Active Problems (Updated 05/30/25 @ 14:33 by Amilcar Zabala MD) Small bowel obstruction (Acute) Plantar verruca (Acute) PAD (peripheral artery disease) (Acute) Edema (Acute) Lymphedema (Acute) Bilateral carpal tunnel syndrome (Acute) Coronary artery disease (Chronic) History of total left knee replacement (Acute) Other B-complex deficiencies (Acute) Generalized osteoarthritis (Acute) Vitamin D deficiency (Acute) Tremor (Acute) essential Chronic rhinitis (Acute) Constipation (Acute) Degenerative arthritis of hand (Acute) bilateral Upper back pain (Acute) Bilateral leg edema (Acute) Tricuspid valve disease (Acute) Prediabetes (Acute) HLD (hyperlipidemia) (Acute) HTN (hypertension) (Chronic) Mild tricuspid regurgitation (Acute) DJD (degenerative joint disease), lumbar (Acute) Atherosclerosis of aorta (Acute) Spinal stenosis at L4-L5 level (Acute) Severe Compression fracture of L5 vertebra (Acute) Noted on CT scan 10/02 Compression fracture of L4 vertebra (Acute) Noted on CT scan 08/2022 Nausea and vomiting (Acute) Upper abdominal pain, unspecified (Acute) Medical History NSTEMI (non-ST elevated myocardial infarction) 10/07/23 History of adenomatous polyp of colon Hx of deep venous thrombosis Ovarian cancer Cancer of right ureter stage 3 Anemia Pulmonary embolism Stage 3 chronic kidney disease Obesity GERD (gastroesophageal reflux disease) Ventral hernia Dehydration Neutropenia drug induced IT band syndrome Actinic keratosis Seborrheic keratoses Osteopenia Breast cancer, stage 1 Benign essential tremor BRCA2 positive Incisional hernia H/O primary malignant neoplasm of urinary bladder H/O ovarian cancer H/O renal cell cancer Surgical History S/P cardiac cath 10/03 at [facility] [place] non obstructive CAD Hx of bilateral mastectomy H/O right nephrectomy Right, with partial uretectomy, Dr Ariel Do History of bowel resection partial, unknown date History of appendectomy unknown date S/P recurrent ventral herniorrhaphy (07/17/18) Dr Mihcael Carroll, [facility] S/P TKR (total knee replacement) S/P hysterectomy with oophorectomy H/O partial cystectomy Status post cataract extraction and insertion of intraocular lens of right eye (04/23/18) Status post cataract extraction and insertion of intraocular lens of left eye (04/09/18) Social History Smoking/Tobacco Use Status: Never Smoking risk assessment performed?: Yes Alcohol Intake: never Drug use: Never Substance use type: does not use Housing: house Current gender identity: female Do you feel safe at home: Yes Do you feel safe in your relationship?: Yes Exam Const General: cooperative, comfortable and no acute distress Orientation: alert, awake and oriented x3 HENMT Head: normal to inspection Eyes General: appearance normal, both eyes and all related structures Neck Neck: normal visual inspection, full ROM and no lymphadenopathy GI Inspection: non-distended Palpation: soft and no guarding Percussion: normal to percussion Auscultation: hypoactive bowel sounds Other: healed midline incision, no hernia Results Last Vital Signs Temp 98.0 F 05/30/25 12:57 Pulse 87 05/30/25 12:57 Resp 16 05/30/25 12:57 BP 120/103 H 05/30/25 12:57 Pulse Ox 97 05/30/25 12:57 Labs 05/30/25 12:55 05/30/25 12:55 Labs: Laboratory Results - last 24 hr 05/30/25 05/30/25 12:55 14:00 WBC 7.02 RBC 4.12 Hgb 12.0 Hct 37.2 MCV 90 MCH 29.1 MCHC 32.3 RDW 13.3 Plt Count 182 MPV 10.1 Immature Gran % 0.4 Neutrophils % 70.6 Lymphocytes % 20.8 Monocytes % 7.5 Eosinophils % 0.6 Basophils % 0.1 Nucleated RBC % 0.0 Absolute Neutrophils 4.95 Absolute Lymphocytes 1.46 Absolute Monocytes 0.53 Absolute Eosinophils 0.04 Absolute Basophils 0.01 Sodium 142 Potassium 4.2 Chloride 105 Carbon Dioxide 28.2 Anion Gap 8.8 BUN 20 Creatinine 1.51 H Est GFR (CKD-EPI 2020) 32.94 Glucose 114 H Calcium 9.5 Magnesium 1.9 Total Bilirubin 1.1 AST 16 ALT 11 Alkaline Phosphatase 82 Total Protein 6.2 Albumin 3.7 Lipase 17 Urine Color Yellow Urine Clarity Clear Urine pH 6.0 Ur Specific [place] 1.020 Urine Protein Trace Urine Ketones 40 H Urine Blood Negative Urine Nitrite Negative Urine Bilirubin Small H Urine Urobilinogen 4.0 H Ur Leukocyte Esterase Negative Urine Glucose Negative Imaging Abdomen CT scan report/results: report reviewed and image reviewed CT scan - pelvis: report reviewed and image reviewed
[2025-05-30] MEDS: Lactated Ringers 1,000 ML 75 ML IV (18:18)
--- NOTE | 2025-05-30 18:23 | W.PC.ACHO ---
Registration Status: ADM IN Primary Language: Preferred Language: Khmer ED Information & Data Chief Complaint Abd Prob 05/30/25 13:51 Triage Note ABD pain, N/V, Last BM 05/30/25 11:46 evening HX SBO Medical / Surgical History (Last Reviewed 05/30/25 @ 13:48 by Amilcar Zabala MD) NSTEMI (non-ST elevated myocardial infarction) History of adenomatous polyp of colon Hx of deep venous thrombosis Ovarian cancer Cancer of right ureter Anemia Pulmonary embolism Stage 3 chronic kidney disease Obesity GERD (gastroesophageal reflux disease) Ventral hernia Dehydration Neutropenia IT band syndrome Actinic keratosis Seborrheic keratoses Osteopenia Breast cancer, stage 1 Benign essential tremor BRCA2 positive Incisional hernia H/O primary malignant neoplasm of urinary bladder H/O ovarian cancer H/O renal cell cancer (Last Reviewed 05/30/25 @ 13:48 by Amilcar Zabala MD) S/P cardiac cath Hx of bilateral mastectomy H/O right nephrectomy History of bowel resection History of appendectomy S/P recurrent ventral herniorrhaphy (07/17/18) S/P TKR (total knee replacement) S/P hysterectomy with oophorectomy H/O partial cystectomy Status post cataract extraction and insertion of intraocular lens of right eye (04/23/18) Status post cataract extraction and insertion of intraocular lens of left eye (04/09/18) Most Recent Vital Signs Temperature 36.3 C L 05/30/25 17:54 Temperature Source Temporal Artery Scan 05/30/25 17:49 Pulse 88 05/30/25 17:54 Pulse Rhythm Irregular 05/30/25 17:54 Respiratory Rate 16 05/30/25 17:54 Respiratory Effort Normal, Non-Labored 05/30/25 17:54 Respiratory Depth Normal 05/30/25 17:54 Respiratory Pattern Normal 05/30/25 17:54 Blood Pressure 149/90 H 05/30/25 17:54 Blood Pressure Mean 109 05/30/25 17:49 Blood Pressure Position Supine 05/30/25 12:57 Pulse Oximetry 98 05/30/25 17:54 Oxygen Delivery Method Room Air 05/30/25 17:54 Oxygen Flow Rate 0 05/30/25 17:54 Allergies latex Allergy (Mild, Verified 05/30/25 13:02) abrasions Sulfa (Sulfonamide Antibiotics) Adverse Reaction (Severe, Verified 05/30/25 13:02) liver damage ciprofloxacin (From Cipro) Adverse Reaction (Intermediate, Verified 05/30/25 13:02) unknown glucosamine Adverse Reaction (Intermediate, Verified 05/30/25 13:02) Nausea glue on bandaids Allergy (Mild, Uncoded 05/30/25 13:02) rash Epideral Dressing Adverse Reaction (Severe, Uncoded 05/30/25 13:02) Blistering Active Medications Generic Name Dose Route Start Last Admin Trade Name Tyra PRN Reason Stop Dose Admin Ringer's Solution 1,000 mls @ 75 mls/hr 05/30/25 17:38 05/30/25 18:18 IV 75 mls/hr INFUSION MICHELLE Administration IV IV Catheter Type [Left Saline Lock Antecubital] IV Catheter Gauge [Left 20 Antecubital] Diet Orders Category Date Time Status npo [Nothing Per Oral] [DIET] Nutrition 05/30/25 14:29 Active Diagnostics 05/30/25 05/30/25 Range/Units 14:00 12:55 WBC 7.02 (4.4-10.8) 10^3/uL RBC 4.12 (3.93-5.22) 10^6/uL Hgb 12.0 (11.2-15.7) g/dL Hct 37.2 (36.0-46.0) % MCV 90 (80-95) fL MCH 29.1 (27.0-33.0) pg MCHC 32.3 (32.0-36.0) % RDW 13.3 (11.7-14.6) % Plt Count 182 (130-400) 10^3/uL MPV 10.1 (8.0-11.0) fL Immature Gran % 0.4 % Neutrophils % 70.6 % Lymphocytes % 20.8 % Monocytes % 7.5 % Eosinophils % 0.6 % Basophils % 0.1 % Nucleated RBC % 0.0 (0.0-0.3) % Absolute Neutrophils 4.95 (1.2-6.7) 10^3/uL Absolute Lymphocytes 1.46 (1.2-3.4) 10^3/uL Absolute Monocytes 0.53 (0.1-0.8) 10^3/uL Absolute Eosinophils 0.04 (0.0-0.7) 10^3/uL Absolute Basophils 0.01 (0.0-0.2) 10^3/uL Sodium 142 (136-145) mmol/L Potassium 4.2 (3.5-5.1) mmol/L Chloride 105 (98-107) mmol/L Carbon Dioxide 28.2 (20.0-31.0) mmol/L Anion Gap 8.8 (3-11) mmol/L BUN 20 (9-23) mg/dL Creatinine 1.51 H (0.55-1.02) mg/dL Est GFR (CKD-EPI 2020) 32.94 (mL/min/1.73m2) Glucose 114 H (74-106) mg/dL Calcium 9.5 (8.3-10.6) mg/dL Magnesium 1.9 (1.6-2.6) mg/dL Total Bilirubin 1.1 (0.2-1.2) mg/dL AST 16 (<34) U/L ALT 11 (10-49) U/L Alkaline Phosphatase 82 (46-116) U/L Total Protein 6.2 (5.7-8.2) g/dL Albumin 3.7 (3.2-5.0) g/dL Lipase 17 (<53) U/L Urine Color Yellow (Yellow) Urine Clarity Clear (Clear) Urine pH 6.0 (5-8) Ur Specific [place] 1.020 (1.005-1.025) Urine Protein Trace (Neg-Trace) mg/dL Urine Ketones 40 H (Negative) mg/dL Urine Blood Negative (Negative) Urine Nitrite Negative (Negative) Urine Bilirubin Small H (Negative) Urine Urobilinogen 4.0 H (Up to 0.2) mg/dL Ur Leukocyte Esterase Negative (Negative) Urine Glucose Negative (Negative) mg/dL Intake and Output - 24 Hour Total 05/30/25 11:40 thru 05/30/25 17:54 Intake Total 700 Output Total 96 Balance 604 Weight 113.398 kg Intake: IV 700 Output: Gastric Drainage 96 Left Nare 96 Other: Urine Appearance Clear Falls Risk Assessment History of Falls No History 05/30/25 17:54 Contributing Factors No Factors 05/30/25 17:54 Ambulatory Aids Uses ambulatory device 05/30/25 17:54 Tubes/Lines W/no contributing factors 05/30/25 17:54 Gait Evaluation No gait disturbance 05/30/25 17:54 Cognition No cognitive impairment 05/30/25 17:54 Fall Total Score 05/30/25 17:54 Level of Risk Moderate Risk 05/30/25 17:54 Problems (Last Reviewed 05/30/25 @ 13:48 by Amilcar Zabala MD) Small bowel obstruction (Acute) Coronary artery disease (Chronic) HLD (hyperlipidemia) (Acute) HTN (hypertension) (Chronic) Nausea and vomiting (Acute) Upper abdominal pain, unspecified (Acute) Attestation Statement: By documenting the first initial, last name, and credentials of the reporting nurse below, both parties acknowledge that all relevant information regarding the patient handoff has been communicated, and that all questions have been addressed to ensure continuity and safety of care. Additional Patient Information/Comments: Pt arrived on floor with NG tube 16 portuguese @ 64 left nostril. Pt denies pain, nausea at time of arrival Report Received From: BERYL Vincent RN. Report called at 17:17.
[2025-05-30] MEDS: Carvedilol 25 MG TAB PO (20:14)
[2025-05-30] MEDS: Normal Saline Flush 10 ML SYR IVP (20:21)
[2025-05-30] MEDS: Gastrografin 120 ML BTL PO (21:16)
[2025-05-31 03:28] VITALS: BP 111/64; PULSE 85; RESP 16; TEMP 36; O2SAT 98
[2025-05-31 06:42] LABS: Abs Immature Grans 0.02 10^3/uL (0.0-0.06); HCT 34.6 % (36.0-46.0); HGB 11.0 g/dL (11.2-15.7); Immature Grans % 0.4 %; MCH 28.8 pg (27.0-33.0); MCHC 31.8 % (32.0-36.0); MCV 91 fL (80-95); MPV 10.8 fL (8.0-11.0); Platelet Count 170 10^3/uL (130-400); RBC 3.82 10^6/uL (3.93-5.22); RDW 13.5 % (11.7-14.6); RDW-SD 45.1 fL; WBC 5.43 10^3/uL (4.4-10.8)
--- NOTE | 2025-05-31 07:00 | DI.RAD_ITS ---
Exam(s) XR ABDOMEN FLAT PLATE EXAM: 2D digital imaging was performed. CLINICAL HISTORY: gastrografin challenge. COMPARISON: CR,XR XR ABDOMEN FLAT UPRIGHT from 10/09/[address] ABDOMEN PELVIS WO from 05/30/2025 TECHNIQUE: Supine views of the abdomen was performed. Three images were obtained. FINDINGS: LUNG BASES: There is scarring in the lung bases. BOWEL GAS PATTERN: Nondistended. The tip of the enteric tube is seen in the stomach. The oral contrast has advanced into the colon with the leading edge of contrast seen in the rectum. There is again seen a dilated loop of small bowel in the left abdomen. The findings may represent an incomplete/partial small bowel obstruction. FREE AIR: None. CALCIFICATIONS: No radiopaque calcifications. OSSEOUS STRUCTURES: Normal for age. OTHER FINDINGS: Surgical clips are seen in the abdomen and pelvis. Atherosclerotic calcification is present. IMPRESSION: 1. The oral contrast has passed into the colon with the leading edge of contrast seen in the rectum. No evidence of a complete obstruction is seen. There is a persistent dilated loop of small bowel in the left abdomen and a partial/incomplete obstruction may be considered. 2. The preliminary [facility] report was reviewed. DATA REPOSITORY: RADIATION DOSE DELIVERED:
[2025-05-31 07:02] LABS: ALT 10 U/L (10-49); AST 14 U/L (<34); Albumin 3.5 g/dL (3.2-5.0); Alkaline Phosphatase 74 U/L (46-116); Anion Gap 9.7 mmol/L (3-11); BUN 21 mg/dL (9-23); Bilirubin, Total 0.6 mg/dL (0.2-1.2); CO2 28.3 mmol/L (20.0-31.0); Calcium 9.2 mg/dL (8.3-10.6); Chloride 107 mmol/L (98-107); Glucose 100 mg/dL (74-106); Potassium 4.0 mmol/L (3.5-5.1); Sodium 145 mmol/L (136-145); Total Protein 5.7 g/dL (5.7-8.2)
[2025-05-31] MEDS: Lactated Ringers 1,000 ML 75 ML IV (07:36)
--- NOTE | 2025-05-31 08:31 | DI.[facility]_ITS ---
PROCEDURE INFORMATION: Exam: XR Abdomen Exam date and time: 05/31/2025 6:52 AM Age: 84 years old Clinical indication: Other: Gastrographin challenge / sbo; Gasrtographin given at 2114 last night TECHNIQUE: Imaging protocol: Radiologic exam of the abdomen. Views: Frontal supine view of the abdomen. 1 View. COMPARISON: CT ABDOMEN PELVIS WO 05/30/2025 2:06 PM FINDINGS: Tubes, catheters and devices: There has been interval placement of an enteric tube, its tip projecting over the distal gastric antrum. Multiple surgical clips project over the central abdomen and upper pelvis. Gastrointestinal tract: Oral contrast was administered, which is seen throughout the colon and has reached the level of the rectum. There is persistent gaseous distension of a small bowel loop in the left mid abdomen which measures up to 4.4 cm in diameter. There is otherwise a relative paucity of gas in the small bowel. Bones/joints: Degenerative changes. No acute osseous abnormality. IMPRESSION: Persistent gaseous dilatation of small bowel in the left mid abdomen, though oral contrast is seen throughout the colon. Findings suggest an incomplete/partial small bowel obstruction. Dictated and Authenticated by: Stefani Marr MD. Orderin Geo Allen MD
[2025-05-31 08:46] VITALS: BP 124/71; PULSE 82; RESP 16; TEMP 36.5; O2SAT 94
[2025-05-31] MEDS: Normal Saline Flush 10 ML SYR IVP ×2 (09:04→20:09)
[2025-05-31] MEDS: Pantoprazole 40 MG VIAL IVP (09:05)
--- NOTE | 2025-05-31 09:42 | W.PM.PROGNOT ---
Date of Service Date of service: 05/31/25 Time of Service: 09:42 Assessment and Plan Assessment and plan (1) Small bowel obstruction: Status: Acute Assessment and plan: As per HPI surgical consultation w Dr. Guardado :Ongoing NGT - Grastrografin challenge and repeat ABD XR- -IMPRESSION on ABD XR Persistent gaseous dilatation of small bowel in the left mid abdomen, though oral contrast is seen throughout the colon. Findings suggest an incomplete/partial small bowel obstruction. Continue NPO except meds - might progress if + flatus and IVF slow rate while NPO- stop when toerating oral intake (2) Coronary artery disease: Status: Chronic Assessment and plan: On home regimen (3) HLD (hyperlipidemia): Status: Acute Assessment and plan: on home regimen (4) HTN (hypertension): Status: Chronic Assessment and plan: On home medicine regimen (5) Nausea and vomiting: Status: Acute Assessment and plan: Ongoing PRN compazine IV (6) Upper abdominal pain, unspecified: Status: Acute Assessment and plan: Continue schedule IV acetaminophen (7) Stage 3 chronic kidney disease: Assessment and plan: Remains stable Labs in AM (8) Pulmonary embolism: Assessment and plan: On Home dose of rivaroxaban Discussed with Dr. Bates Discharge Planning Discharge Plannin06/01/2025 Subjective Subjective Patient reports: no new complaints, voiding w/o difficulty, diarrhea and afebrile; denies blood in stool, nausea, vomiting or shortness of breath Exam Narrative Exam Narrative: A& O X4, no acute distress, no focal neurological deficit, clear lungs, S1 S2 regular , no murmur PPPX4, abdomen is non-distended, soft with epigastric and hypogastric tenderness, ongoing non-pitting bilat Le edema, NGT in place Objective Last Vital Signs Temp 36.5 C 05/31/25 08:46 Pulse 82 05/31/25 08:46 Resp 16 05/31/25 08:46 BP 124/71 05/31/25 08:46 Pulse Ox 94 05/31/25 08:46 Laboratory Results - last 24 hr 05/30/25 05/30/25 05/31/25 12:55 14:00 06:08 WBC 7.02 5.43 RBC 4.12 3.82 L Hgb 12.0 11.0 L Hct 37.2 34.6 L MCV 90 91 MCH 29.1 28.8 MCHC 32.3 31.8 L RDW 13.3 13.5 Plt Count 182 170 MPV 10.1 10.8 Immature Gran % 0.4 0.4 Neutrophils % 70.6 57.4 Lymphocytes % 20.8 30.2 Monocytes % 7.5 9.0 Eosinophils % 0.6 2.6 Basophils % 0.1 0.4 Nucleated RBC % 0.0 0.0 Absolute Neutrophils 4.95 3.12 Absolute Lymphocytes 1.46 1.64 Absolute Monocytes 0.53 0.49 Absolute Eosinophils 0.04 0.14 Absolute Basophils 0.01 0.02 Sodium 142 145 Potassium 4.2 4.0 Chloride 105 107 Carbon Dioxide 28.2 28.3 Anion Gap 8.8 9.7 BUN 20 21 Creatinine 1.51 H 1.60 H Est GFR (CKD-EPI 2020) 32.94 30.81 Glucose 114 H 100 Calcium 9.5 9.2 Magnesium 1.9 Total Bilirubin 1.1 0.6 AST 16 14 ALT 11 10 Alkaline Phosphatase 82 74 Total Protein 6.2 5.7 Albumin 3.7 3.5 Lipase 17 Urine Color Yellow Urine Clarity Clear Urine pH 6.0 Ur Specific [place] 1.020 Urine Protein Trace Urine Ketones 40 H Urine Blood Negative Urine Nitrite Negative Urine Bilirubin Small H Urine Urobilinogen 4.0 H Ur Leukocyte Esterase Negative Urine Glucose Negative VTE Prohylaxis Risk Level: Moderate/High Risk Contraindications: None Prophylaxis: Pharmacologic Time Spent with Patient Time Spent with Patient: >50 minutes Time was spent: preparing to see the patient(eg.review tests), obtaining and/or reviewing separately otained hiistory, ordering medications,tests, procedures, referring, communicating with other health home health care respiratory therapist, indepentently interpreting results, counseling the patient, care coordination and other
--- NOTE | 2025-05-31 10:54 | W.PM.DS.N ---
DS: Diagnosis Discharge Diagnosis (1) Small bowel obstruction: Status: Acute (2) Coronary artery disease: Status: Chronic (3) HLD (hyperlipidemia): Status: Acute (4) HTN (hypertension): Status: Chronic (5) Nausea and vomiting: Status: Acute (6) Upper abdominal pain, unspecified: Status: Acute (7) Stage 3 chronic kidney disease: (8) Pulmonary embolism: Discharge Plan Disposition Patient Disposition: Home Anticipated Discharge Date/Time: 05/31/25 15:00 Condition: Improving Discharge Details Reason For Visit: SBO Admit Date/Time: 05/30/25 15:13 Admit Provider: Ariel Bates Attending Provider: Ariel Bates Primary Care Provider: Dulce Hidalgo Home Meds and New Rx's Prescriptions: No Action carvedilol 25 mg tablet 25 mg PO BID Rx Instructions: must administer with a meal/food losartan 25 mg tablet 25 mg PO DAILY spironolactone 25 mg tablet 25 mg PO DAILY cetirizine [Allergy Relief (cetirizine)] 10 mg tablet 10 mg PO DAILY PRN lorazepam 0.5 mg tablet 0.5 mg PO .prior to test PRN cyanocobalamin (vitamin B-12) [Vitamin B-12] 2,500 mcg tablet, sublingual 2,500 mcg sublingual DAILY simvastatin 10 mg tablet 10 mg PO DAILY Qty: 90 3RF rivaroxaban 15 mg tablet 10 mg PO DAILY Rx Instructions: must administer with evening meal ketoconazole 2 % cream 1 applic topical DAILY Qty: 120 6RF Rx Instructions: Apply to 1g to skin and toenails once daily acetaminophen [Tylenol Extra Strength] 500 mg tablet 500 mg PO PRN furosemide 20 mg tablet 40 mg PO DAILY Qty: 0 0RF Patient Comments: Take 1 tablet by mouth once a day meclizine 12.5 mg tablet 12.5 mg PO TID PRN docusate sodium 100 mg capsule 100 mg PO DAILY PRN omeprazole 20 mg capsule,delayed release(DR/EC) 20 mg PO DAILY calcium carb, citrate-vit D3 [Citracal-D3 Slow Release] 1 EACH tablet extended release 1 tab PO DAILY ondansetron 4 mg tablet,disintegrating 4 mg PO Q6H PRN (Reason: nausea and vomiting) Qty: 14 0RF magnesium oxide 400 mg Capsule 400 mg PO DAILY Discharge Instructions Stand Alone Forms: Portal Information DS: Data Vitals/I&O Vitals and I&O: Vital Signs Temperature 36.5 C 05/31/25 08:46 Temperature Source Temporal Artery Scan 05/31/25 08:46 Pulse 82 05/31/25 08:46 Pulse Rhythm Irregular 05/30/25 17:54 Respiratory Rate 16 05/31/25 08:46 Respiratory Effort Normal, Non-Labored 05/30/25 17:54 Respiratory Depth Normal 05/30/25 17:54 Respiratory Pattern Normal 05/30/25 17:54 Blood Pressure 124/71 05/31/25 08:46 Blood Pressure Mean 88 05/31/25 08:46 Blood Pressure Position Supine 05/30/25 12:57 Pulse Oximetry 94 05/31/25 08:46 Oxygen Delivery Method Room Air 05/31/25 08:46 Oxygen Flow Rate 0 05/31/25 08:46 Pain Level 0 05/31/25 10:30 Intake & Output 05/30/25 05/30/25 05/31/25 11:59 23:59 11:59 Intake Total 700 / 700 2213.75 / 2213.75 Output Total 96 / 96 750 / 750 Balance 604 / 604 1463.75 / 1463.75 Weight 113.398 kg 113.398 kg Intake: IV 700 / 700 2213.75 / 2213.75 Output: Gastric Drainage 96 / 96 750 / 750 Left Nare 96 / 96 750 / 750 Other: Urine Color Yellow Urine Appearance Clear Clear Urine Odor Normal Comment Pt voided an immeasurable amount ind. into the toilet. Stool Size Moderate Large Stool Characteristics Soft Liquid Formed Liquid Data Completed and Pending Pending Labs at Discharge: 05/30/25 05/30/25 05/31/25 12:55 14:00 06:08 WBC 7.02 5.43 RBC 4.12 3.82 L Hgb 12.0 11.0 L Hct 37.2 34.6 L MCV 90 91 MCH 29.1 28.8 MCHC 32.3 31.8 L RDW 13.3 13.5 Plt Count 182 170 MPV 10.1 10.8 Immature Gran % 0.4 0.4 Neutrophils % 70.6 57.4 Lymphocytes % 20.8 30.2 Monocytes % 7.5 9.0 Eosinophils % 0.6 2.6 Basophils % 0.1 0.4 Nucleated RBC % 0.0 0.0 Absolute Neutrophils 4.95 3.12 Absolute Lymphocytes 1.46 1.64 Absolute Monocytes 0.53 0.49 Absolute Eosinophils 0.04 0.14 Absolute Basophils 0.01 0.02 Sodium 142 145 Potassium 4.2 4.0 Chloride 105 107 Carbon Dioxide 28.2 28.3 Anion Gap 8.8 9.7 BUN 20 21 Creatinine 1.51 H 1.60 H Est GFR (CKD-EPI 2020) 32.94 30.81 Glucose 114 H 100 Calcium 9.5 9.2 Magnesium 1.9 Total Bilirubin 1.1 0.6 AST 16 14 ALT 11 10 Alkaline Phosphatase 82 74 Total Protein 6.2 5.7 Albumin 3.7 3.5 Lipase 17 Urine Color Yellow Urine Clarity Clear Urine pH 6.0 Ur Specific [place] 1.020 Urine Protein Trace Urine Ketones 40 H Urine Blood Negative Urine Nitrite Negative Urine Bilirubin Small H Urine Urobilinogen 4.0 H Ur Leukocyte Esterase Negative Urine Glucose Negative PFSH All Active Problems (Updated 05/30/25 @ 14:33 by Amilcar Zabala MD) Small bowel obstruction (Acute) Plantar verruca (Acute) PAD (peripheral artery disease) (Acute) Edema (Acute) Lymphedema (Acute) Bilateral carpal tunnel syndrome (Acute) Coronary artery disease (Chronic) History of total left knee replacement (Acute) Other B-complex deficiencies (Acute) Generalized osteoarthritis (Acute) Vitamin D deficiency (Acute) Tremor (Acute) essential Chronic rhinitis (Acute) Constipation (Acute) Degenerative arthritis of hand (Acute) bilateral Upper back pain (Acute) Bilateral leg edema (Acute) Tricuspid valve disease (Acute) Prediabetes (Acute) HLD (hyperlipidemia) (Acute) HTN (hypertension) (Chronic) Mild tricuspid regurgitation (Acute) DJD (degenerative joint disease), lumbar (Acute) Atherosclerosis of aorta (Acute) Spinal stenosis at L4-L5 level (Acute) Severe Compression fracture of L5 vertebra (Acute) Noted on CT scan 10/02 Compression fracture of L4 vertebra (Acute) Noted on CT scan 08/2022 Nausea and vomiting (Acute) Upper abdominal pain, unspecified (Acute) Medical History NSTEMI (non-ST elevated myocardial infarction) 10/07/23 History of adenomatous polyp of colon Hx of deep venous thrombosis Ovarian cancer Cancer of right ureter stage 3 Anemia Pulmonary embolism Stage 3 chronic kidney disease Obesity GERD (gastroesophageal reflux disease) Ventral hernia Dehydration Neutropenia drug induced IT band syndrome Actinic keratosis Seborrheic keratoses Osteopenia Breast cancer, stage 1 Benign essential tremor BRCA2 positive Incisional hernia H/O primary malignant neoplasm of urinary bladder H/O ovarian cancer H/O renal cell cancer Surgical History S/P cardiac cath 10/03 at [facility] non obstructive CAD Hx of bilateral mastectomy H/O right nephrectomy Right, with partial uretectomy, Dr Ariel Do History of bowel resection partial, unknown date History of appendectomy unknown date S/P recurrent ventral herniorrhaphy (07/17/18) Dr Michael Carroll, [facility] S/P TKR (total knee replacement) S/P hysterectomy with oophorectomy H/O partial cystectomy Status post cataract extraction and insertion of intraocular lens of right eye (04/23/18) Status post cataract extraction and insertion of intraocular lens of left eye (04/09/18) Social History Smoking/Tobacco Use Status: Never Smoking risk assessment performed?: Yes Alcohol Intake: never Drug use: Never Substance use type: does not use Housing: house Current gender identity: female Do you feel safe at home: Yes Do you feel safe in your relationship?: Yes
--- NOTE | 2025-05-31 11:01 | PGE_ITS ---
Date of Service Date of service: 05/31/25 Time of Service: 11:01 Assessment and Plan Assessment and plan (1) Small bowel obstruction: Status: Acute Assessment and plan: The progress of the Gastrografin into the colon on imaging, as well as her bowel movements overnight are very reassuring. I did remove the nasogastric tube today, and I wrote for some sips of clear liquids this morning. If she tolerates that without any nausea or abdominal discomfort, I think it is fine for diet to be advanced. I will also continue a few doses of MiraLAX. I also discontinued her intravenous fluids at this point. Will reassess her diet over the next 24 hours, and I am optimistic that she will be able to maintain hydration and nutrition by mouth in the next 24 hours and discharge home. Subjective Subjective Interval history since last seen: Isaura looks very good this with only a little bit of bile tinged effluent in the nasogastric tube. Her abdominal discomfort is resolved. KUB today shows contrast within the colon. Exam GI Other: Abdomen is soft, and not very distended. She has normal bowel sounds today. She is not tender. Objective Last Vital Signs Temp 97.7 F 05/31/25 08:46 Pulse 82 05/31/25 08:46 Resp 16 05/31/25 08:46 BP 124/71 05/31/25 08:46 Pulse Ox 94 05/31/25 08:46 Laboratory Results - last 24 hr 05/30/25 05/30/25 05/31/25 12:55 14:00 06:08 WBC 7.02 5.43 RBC 4.12 3.82 L Hgb 12.0 11.0 L Hct 37.2 34.6 L MCV 90 91 MCH 29.1 28.8 MCHC 32.3 31.8 L RDW 13.3 13.5 Plt Count 182 170 MPV 10.1 10.8 Immature Gran % 0.4 0.4 Neutrophils % 70.6 57.4 Lymphocytes % 20.8 30.2 Monocytes % 7.5 9.0 Eosinophils % 0.6 2.6 Basophils % 0.1 0.4 Nucleated RBC % 0.0 0.0 Absolute Neutrophils 4.95 3.12 Absolute Lymphocytes 1.46 1.64 Absolute Monocytes 0.53 0.49 Absolute Eosinophils 0.04 0.14 Absolute Basophils 0.01 0.02 Sodium 142 145 Potassium 4.2 4.0 Chloride 105 107 Carbon Dioxide 28.2 28.3 Anion Gap 8.8 9.7 BUN 20 21 Creatinine 1.51 H 1.60 H Est GFR (CKD-EPI 2020) 32.94 30.81 Glucose 114 H 100 Calcium 9.5 9.2 Magnesium 1.9 Total Bilirubin 1.1 0.6 AST 16 14 ALT 11 10 Alkaline Phosphatase 82 74 Total Protein 6.2 5.7 Albumin 3.7 3.5 Lipase 17 Urine Color Yellow Urine Clarity Clear Urine pH 6.0 Ur Specific [place] 1.020 Urine Protein Trace Urine Ketones 40 H Urine Blood Negative Urine Nitrite Negative Urine Bilirubin Small H Urine Urobilinogen 4.0 H Ur Leukocyte Esterase Negative Urine Glucose Negative VTE Prohylaxis Risk Level: Moderate/High Risk Contraindications: None Prophylaxis: Pharmacologic Time Spent with Patient Time Spent with Patient: 25-34 minutes Time was spent: preparing to see the patient(eg.review tests), referring, communicating with other health furnace caretaker, indepentently interpreting results and counseling the patient
[2025-05-31 11:06] VITALS: BP 129/65; PULSE 73; RESP 18; TEMP 36.6; O2SAT 95
[2025-05-31] MEDS: Losartan 25 MG TAB PO (11:10)
[2025-05-31] MEDS: Carvedilol 25 MG TAB PO ×2 (11:10→20:08)
[2025-05-31] MEDS: Spironolactone 25 MG TAB PO (11:10)
[2025-05-31] MEDS: Rivaroxaban 10 MG TABLET PO (11:10)
[2025-05-31] MEDS: Furosemide 20 MG TAB 40 MG PO (11:10)
[2025-05-31] MEDS: Polyethylene Glycol 3350 17 GM PACKET PO (14:37)
--- NOTE | 2025-05-31 15:43 | INITIAL_ITS ---
Date of service: 05/31/25 Time of Service: 15:43 Care Management Initial Assmt Initial Assessment Reason for Hospitalization: SBO Functional Status/Living Situation Patient Presentation: Isaura was sitting up in bed when CM met with her. She was pleasant and engaged well in conversation. She stated that she is feeling much better today, and that the MD removed the NG tube earlier, which she was happy about. She stated that she had clear liquids for lunch which she tolerated well. She has been up and walking in the halls. She stated that her and her of 62 years, Taran, live in [place]. She reported she grew up locally with ten siblings. Her and her had three children, and now have five grandchildren and seven great grandchildren. She stated that many of them are local and supportive. She stated that her and her are doing well, supporting each other, and she is independent at baseline, and still drives. She is looking forward to discharge, which she stated will likely be tomorrow, per MD. CM will continue to follow. 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[employer]) Instrumental Activities of Daily Living (ADLs): Independent Medications Medication Management: No Issues/Barriers identified Physical Functioning/Mobility Assistive Device: FWW Advance Directives Advance Directives: Do you have an Advance Directive: Y , 00:45 AD On File at [facility]: Y 12/05/21, 00:45 Date Asked 05/30/25 05/30/25, 11:46 AD Date Reviewed 04/28/25 04/28/25, 09:40 COLST On File at [facility] No 07/07/20, 22:13 COLST Date Scanned Code Status Resuscitation Status Full Code Insurance Coverage/Financial Issues Insurance: [facility] 4 Life supplement Care Team Visit Care Team Role Provider Type Sherly Roberts APRN MD [facility] STAFF PHYSICIAN Dulce Hidalgo MD Primary Care Provider [facility] STAFF PHYSICIAN Alejandro Guardado MD Other Providers [facility] STAFF PHYSICIAN Amilcar Zabala MD Emergency Provider [facility] STAFF PHYSICIAN Ariel Bates Admit Provider [facility] STAFF PHYSICIAN Attending Provider Discharge Potential Discharge Needs: PCP F/U Appt Anticipated Barriers to Discharge: None Identified Patient/Family Education Needs: Review discharge instructions, discuss Ask Me Three Transportation: Private vehicle Plan: Anticipate sIaura will return home once medically cleared. Her will drive her home via private vehicle. She will follow up with her PCP and discharge plan of care. CM will continue to follow. Social Determinants of Health Screening Will the Patient Participate in the Screening?: Unable to obtain PFSH All Active Problems (Updated 05/30/25 @ 14:33 by Amilcar Zabala MD) Small bowel obstruction (Acute) Plantar verruca (Acute) PAD (peripheral artery disease) (Acute) Edema (Acute) Lymphedema (Acute) Bilateral carpal tunnel syndrome (Acute) Coronary artery disease (Chronic) History of total left knee replacement (Acute) Other B-complex deficiencies (Acute) Generalized osteoarthritis (Acute) Vitamin D deficiency (Acute) Tremor (Acute) essential Chronic rhinitis (Acute) Constipation (Acute) Degenerative arthritis of hand (Acute) bilateral Upper back pain (Acute) Bilateral leg edema (Acute) Tricuspid valve disease (Acute) Prediabetes (Acute) HLD (hyperlipidemia) (Acute) HTN (hypertension) (Chronic) Mild tricuspid regurgitation (Acute) DJD (degenerative joint disease), lumbar (Acute) Atherosclerosis of aorta (Acute) Spinal stenosis at L4-L5 level (Acute) Severe Compression fracture of L5 vertebra (Acute) Noted on CT scan 10/02 Compression fracture of L4 vertebra (Acute) Noted on CT scan 08/2022 Nausea and vomiting (Acute) Upper abdominal pain, unspecified (Acute) Medical History NSTEMI (non-ST elevated myocardial infarction) 10/07/23 History of adenomatous polyp of colon Hx of deep venous thrombosis Ovarian cancer Cancer of right ureter stage 3 Anemia Pulmonary embolism Stage 3 chronic kidney disease Obesity GERD (gastroesophageal reflux disease) Ventral hernia Dehydration Neutropenia drug induced IT band syndrome Actinic keratosis Seborrheic keratoses Osteopenia Breast cancer, stage 1 Benign essential tremor BRCA2 positive Incisional hernia H/O primary malignant neoplasm of urinary bladder H/O ovarian cancer H/O renal cell cancer Surgical History S/[place] [facility] [place] Hx of bilateral mastectomy H/O right nephrectomy Right, with partial uretectomy, Dr Ariel Do History of bowel resection partial, unknown date History of appendectomy unknown date S/P recurrent ventral herniorrhaphy (07/17/18) Dr Michael Carroll, [facility] S/P TKR (total knee replacement) S/P hysterectomy with oophorectomy H/O partial cystectomy Status post cataract extraction and insertion of intraocular lens of right eye (04/23/18) Status post cataract extraction and insertion of intraocular lens of left eye (04/09/18) Social History Smoking/Tobacco Use Status: Never Smoking risk assessment performed?: Yes Alcohol Intake: never Drug use: Never Substance use type: does not use Housing: house Current gender identity: female Do you feel safe at home: Yes Do you feel safe in your relationship?: Yes
[2025-05-31 16:00] VITALS: BP 132/74; PULSE 85; RESP 16; TEMP 36.7; O2SAT 99
[2025-05-31 19:47] VITALS: BP 133/62; PULSE 72; RESP 16; TEMP 36.4; O2SAT 100
[2025-05-31] MEDS: Simvastatin 10 MG TAB PO (20:09)
[2025-05-31 23:38] VITALS: BP 133/73; PULSE 77; RESP 16; TEMP 36.6; O2SAT 98
[2025-06-01 02:48] VITALS: BP 109/48; PULSE 82; RESP 16; TEMP 36.2; O2SAT 97
[2025-06-01 06:32] LABS: Abs Immature Grans 0.02 10^3/uL (0.0-0.06); HCT 33.9 % (36.0-46.0); HGB 10.6 g/dL (11.2-15.7); Immature Grans % 0.5 %; MCH 28.8 pg (27.0-33.0); MCHC 31.3 % (32.0-36.0); MCV 92 fL (80-95); MPV 10.7 fL (8.0-11.0); Platelet Count 154 10^3/uL (130-400); RBC 3.68 10^6/uL (3.93-5.22); RDW 13.8 % (11.7-14.6); RDW-SD 46.9 fL; WBC 4.37 10^3/uL (4.4-10.8)
[2025-06-01 06:49] LABS: Anion Gap 7.9 mmol/L (3-11); BUN 18 mg/dL (9-23); CO2 31.1 mmol/L (20.0-31.0); Calcium 8.9 mg/dL (8.3-10.6); Chloride 105 mmol/L (98-107); Glucose 123 mg/dL (74-106); Potassium 3.6 mmol/L (3.5-5.1); Sodium 144 mmol/L (136-145)
[2025-06-01 06:53] LABS: Magnesium 1.8 mg/dL (1.6-2.6)
[2025-06-01 07:21] VITALS: BP 124/66; PULSE 74; RESP 19; TEMP 36; O2SAT 96
[2025-06-01] MEDS: Normal Saline Flush 10 ML SYR IVP (09:03)
[2025-06-01] MEDS: Carvedilol 25 MG TAB PO (09:04)
[2025-06-01] MEDS: Losartan 25 MG TAB PO (09:04)
[2025-06-01] MEDS: Furosemide 20 MG TAB PO (09:04)
[2025-06-01] MEDS: Spironolactone 25 MG TAB PO (09:04)
[2025-06-01] MEDS: Rivaroxaban 10 MG TABLET PO (09:04)
[2025-06-01] MEDS: Polyethylene Glycol 3350 17 GM PACKET PO (09:04)
[2025-06-01] MEDS: Pantoprazole 40 MG VIAL IVP (09:04)
--- NOTE | 2025-06-01 09:36 | W.PM.PROGNOT ---
Date of Service Date of service: 06/01/25 Time of Service: 09:36 Assessment and Plan Assessment and plan (1) Small bowel obstruction: Status: Acute Assessment and plan: Isaura seems to be recovering nicely from her small bowel obstruction. I advanced her diet to regular food this morning, and I do think it is reasonable to use a small dose of MiraLAX every day to help promote motility through the small intestine. I think it is fine for her to be discharged today, and my office can arrange for short interval follow-up to see how things are going. Subjective Subjective Interval history since last seen: Isaura had a little bit of belching yesterday, but no nausea or vomiting, and has otherwise been tolerating for Eliquis without any complaints. She had another bowel movement. Exam GI Other: Abdomen is soft, nontender, and nondistended. There is no guarding or any rebound. Objective Last Vital Signs Temp 96.8 F L 06/01/25 07:21 Pulse 74 06/01/25 07:21 Resp 19 06/01/25 07:21 BP 124/66 06/01/25 07:21 Pulse Ox 96 06/01/25 07:21 Laboratory Results - last 24 hr 06/01/25 06:03 WBC 4.37 L RBC 3.68 L Hgb 10.6 L Hct 33.9 L MCV 92 MCH 28.8 MCHC 31.3 L RDW 13.8 Plt Count 154 MPV 10.7 Immature Gran % 0.5 Neutrophils % 55.5 Lymphocytes % 30.2 Monocytes % 9.4 Eosinophils % 3.9 Basophils % 0.5 Nucleated RBC % 0.0 Absolute Neutrophils 2.43 Absolute Lymphocytes 1.32 Absolute Monocytes 0.41 Absolute Eosinophils 0.17 Absolute Basophils 0.02 Sodium 144 Potassium 3.6 Chloride 105 Carbon Dioxide 31.1 H Anion Gap 7.9 BUN 18 Creatinine 1.61 H Est GFR (CKD-EPI 2020) 30.59 Glucose 123 H Calcium 8.9 Magnesium 1.8 VTE Prohylaxis Risk Level: Moderate/High Risk Contraindications: None Prophylaxis: Pharmacologic Time Spent with Patient Time Spent with Patient: 25-34 minutes Time was spent: preparing to see the patient(eg.review tests), indepentently interpreting results and counseling the patient
[2025-06-01 11:35] VITALS: BP 104/59; PULSE 82; RESP 18; TEMP 36.4; O2SAT 97
--- NOTE | 2025-06-01 12:50 | W.PM.DS.N ---
Date of service: 06/01/25 Time of Service: 12:50 DS: Diagnosis Discharge Diagnosis (1) Small bowel obstruction: Status: Acute Discharge Plan Disposition Patient Disposition: Home Anticipated Discharge Date/Time: 05/31/25 15:00 Condition: Improving Discharge Details Reason For Visit: SBO Admit Date/Time: 05/30/25 15:13 Admit Provider: Ariel Bates Attending Provider: Ariel Bates [facility] Course: 84 yo female patient with a PMHx of CKD3, HTN, HLD, CAD, and h/o complicated abdominal surgery for remote ovarian cancer with incisional hernia repair in 2019 who presented to the ED for evaluation of abdominal pain nausea and vomiting. Exam and CT A/P were consistent with small bowel obstruction. NG tube was placed. She was seen by Dr. Guardado from surgery who gave her gastrograffin, and she had bowel movements 05/30-05/31 and NGT removed. She was able to progress her diet to a low residue regular diet by 06/01 and was discharged home. Polyethylene glycol daily was recommended for a few days at discharge. Once she is fully recovered, she will resume benefiber supplement and continue prn PEG. Home Meds and New Rx's Prescriptions: New polyethylene glycol 3350 17 gram Powder In Packet 17 g PO DAILY PRN PRN (Reason: Constipation) Qty: 0 0RF Continued carvedilol 25 mg tablet 25 mg PO BID Rx Instructions: must administer with a meal/food losartan 25 mg tablet 25 mg PO DAILY spironolactone 25 mg tablet 25 mg PO DAILY cetirizine [Allergy Relief (cetirizine)] 10 mg tablet 10 mg PO DAILY PRN lorazepam 0.5 mg tablet 0.5 mg PO .prior to test PRN cyanocobalamin (vitamin B-12) [Vitamin B-12] 2,500 mcg tablet, sublingual 2,500 mcg sublingual DAILY simvastatin 10 mg tablet 10 mg PO DAILY Qty: 90 3RF rivaroxaban 15 mg tablet 10 mg PO DAILY Rx Instructions: must administer with evening meal ketoconazole 2 % cream 1 applic topical DAILY Qty: 120 6RF Rx Instructions: Apply to 1g to skin and toenails once daily acetaminophen [Tylenol Extra Strength] 500 mg tablet 500 mg PO PRN furosemide 20 mg tablet 40 mg PO DAILY Qty: 0 0RF Patient Comments: Take 1 tablet by mouth once a day meclizine 12.5 mg tablet 12.5 mg PO TID PRN docusate sodium 100 mg capsule 100 mg PO DAILY PRN omeprazole 20 mg capsule,delayed release(DR/EC) 20 mg PO DAILY calcium carb, citrate-vit D3 [Citracal-D3 Slow Release] 1 EACH tablet extended release 1 tab PO DAILY ondansetron 4 mg tablet,disintegrating 4 mg PO Q6H PRN (Reason: nausea and vomiting) Qty: 14 0RF magnesium oxide 400 mg Capsule 400 mg PO DAILY Discharge Instructions Instructions: Small Bowel Obstruction (DC) Additional Instructions: Take the Miralax (polyethylene glycol) for the next few days along with a low residue diet (not too much insoluble fiber). When you feel back to normal, you should start back on your benefiber (soluble fiber) Stand Alone Forms: Portal Information Activity:: Activity as Tolerated Equipment/Supplies:: No Equipment Needed Diet:: As Tolerated Discharge Orders Discharge Orders: Discharge Order (Routine); Ordered 06/01/25 Ordered By: Ariel Bates DS: Summary Time Spent with Patient providing and/or coordinating discharge services: Greater than 30 minutes Status at Discharge Functional status at discharge: independent ambulation Overall status at discharge: patient is back to baseline Mental Status: mental status grossly normal Speech and Movement: speech and movement normal Mood: congruent mood Affect: normal affect Exam Narrative Exam Narrative: A& O X4, no acute distress clear lungs, nl effort CV: S1 S2 regular, no murmur ABD: +bs, non-distended, soft without tenderness ext: no change in non-pitting bilat Le edema Psych Mental Status: mental status grossly normal Speech and Movement: speech and movement normal Mood: congruent mood Affect: normal affect DS: Data Vitals/I&O Vitals and I&O: Vital Signs Temperature 36.0 C L 06/01/25 07:21 Temperature Source Temporal Artery Scan 06/01/25 07:21 Pulse 74 06/01/25 07:21 Pulse Rhythm Irregular 05/30/25 17:54 Respiratory Rate 19 06/01/25 07:21 Respiratory Effort Normal, Non-Labored 05/30/25 17:54 Respiratory Depth Normal 05/30/25 17:54 Respiratory Pattern Normal 05/30/25 17:54 Blood Pressure 124/66 06/01/25 07:21 Blood Pressure Mean 85 06/01/25 07:21 Blood Pressure Position Supine 05/30/25 12:57 Pulse Oximetry 96 06/01/25 07:21 Oxygen Delivery Method Room Air 06/01/25 07:21 Oxygen Flow Rate 0 06/01/25 07:21 Pain Level 0 06/01/25 09:04 Intake & Output 05/31/25 06/01/25 06/01/25 23:59 11:59 23:59 Intake Total 1010 / 3223.75 490 / 490 Balance 1010 / 2473.75 490 / 490 Intake: IV 0 / 2213.75 Oral 1010 / 1010 490 / 490 Other: Urine Color Yellow Pale Yellow Urine Appearance Clear Clear Urine Odor Normal None Comment unmeasureable amount of urine Stool Size Small Stool Characteristics Soft Data Completed and Pending Pending Labs at Discharge: 05/30/25 05/30/25 05/31/25 12:55 14:00 06:08 WBC 7.02 5.43 RBC 4.12 3.82 L Hgb 12.0 11.0 L Hct 37.2 34.6 L MCV 90 91 MCH 29.1 28.8 MCHC 32.3 31.8 L RDW 13.3 13.5 Plt Count 182 170 MPV 10.1 10.8 Immature Gran % 0.4 0.4 Neutrophils % 70.6 57.4 Lymphocytes % 20.8 30.2 Monocytes % 7.5 9.0 Eosinophils % 0.6 2.6 Basophils % 0.1 0.4 Nucleated RBC % 0.0 0.0 Absolute Neutrophils 4.95 3.12 Absolute Lymphocytes 1.46 1.64 Absolute Monocytes 0.53 0.49 Absolute Eosinophils 0.04 0.14 Absolute Basophils 0.01 0.02 Sodium 142 145 Potassium 4.2 4.0 Chloride 105 107 Carbon Dioxide 28.2 28.3 Anion Gap 8.8 9.7 BUN 20 21 Creatinine 1.51 H 1.60 H Est GFR (CKD-EPI 2020) 32.94 30.81 Glucose 114 H 100 Calcium 9.5 9.2 Magnesium 1.9 Total Bilirubin 1.1 0.6 AST 16 14 ALT 11 10 Alkaline Phosphatase 82 74 Total Protein 6.2 5.7 Albumin 3.7 3.5 Lipase 17 Urine Color Yellow Urine Clarity Clear Urine pH 6.0 Ur Specific [place] 1.020 Urine Protein Trace Urine Ketones 40 H Urine Blood Negative Urine Nitrite Negative Urine Bilirubin Small H Urine Urobilinogen 4.0 H Ur Leukocyte Esterase Negative Urine Glucose Negative 06/01/25 06:03 WBC 4.37 L RBC 3.68 L Hgb 10.6 L Hct 33.9 L MCV 92 MCH 28.8 MCHC 31.3 L RDW 13.8 Plt Count 154 MPV 10.7 Immature Gran % 0.5 Neutrophils % 55.5 Lymphocytes % 30.2 Monocytes % 9.4 Eosinophils % 3.9 Basophils % 0.5 Nucleated RBC % 0.0 Absolute Neutrophils 2.43 Absolute Lymphocytes 1.32 Absolute Monocytes 0.41 Absolute Eosinophils 0.17 Absolute Basophils 0.02 Sodium 144 Potassium 3.6 Chloride 105 Carbon Dioxide 31.1 H Anion Gap 7.9 BUN 18 Creatinine 1.61 H Est GFR (CKD-EPI 2020) 30.59 Glucose 123 H Calcium 8.9 Magnesium 1.8 Total Bilirubin AST ALT Alkaline Phosphatase Total Protein Albumin Lipase Urine Color Urine Clarity Urine pH Ur Specific [place] Urine Protein Urine Ketones Urine Blood Urine Nitrite Urine Bilirubin Urine Urobilinogen Ur Leukocyte Esterase Urine Glucose PFSH All Active Problems (Updated 05/30/25 @ 14:33 by Amilcar Zabala MD) Small bowel obstruction (Acute) Plantar verruca (Acute) PAD (peripheral artery disease) (Acute) Edema (Acute) Lymphedema (Acute) Bilateral carpal tunnel syndrome (Acute) Coronary artery disease (Chronic) History of total left knee replacement (Acute) Other B-complex deficiencies (Acute) Generalized osteoarthritis (Acute) Vitamin D deficiency (Acute) Tremor (Acute) essential Chronic rhinitis (Acute) Constipation (Acute) Degenerative arthritis of hand (Acute) bilateral Upper back pain (Acute) Bilateral leg edema (Acute) Tricuspid valve disease (Acute) Prediabetes (Acute) HLD (hyperlipidemia) (Acute) Mild tricuspid regurgitation (Acute) DJD (degenerative joint disease), lumbar (Acute) Atherosclerosis of aorta (Acute) Spinal stenosis at L4-L5 level (Acute) Severe Compression fracture of L5 vertebra (Acute) Noted on CT scan 10/02 Compression fracture of L4 vertebra (Acute) Noted on CT scan 08/2022 Nausea and vomiting (Acute) Upper abdominal pain, unspecified (Acute) HTN (hypertension) (Chronic) Medical History NSTEMI (non-ST elevated myocardial infarction) 10/07/23 History of adenomatous polyp of colon Hx of deep venous thrombosis Ovarian cancer Cancer of right ureter stage 3 Anemia Pulmonary embolism Stage 3 chronic kidney disease Obesity GERD (gastroesophageal reflux disease) Ventral hernia Dehydration Neutropenia drug induced IT band syndrome Actinic keratosis Seborrheic keratoses Osteopenia Breast cancer, stage 1 Benign essential tremor BRCA2 positive Incisional hernia H/O primary malignant neoplasm of urinary bladder H/O ovarian cancer H/O renal cell cancer Surgical History S/P cardiac cath 10/03 [place] [facility] [place] Hx of bilateral mastectomy H/O right nephrectomy Right, with partial uretectomy, Dr Ariel Do History of bowel resection partial, unknown date History of appendectomy unknown date S/P recurrent ventral herniorrhaphy (07/17/18) Dr Michael Carroll, [facility] S/P TKR (total knee replacement) S/P hysterectomy with oophorectomy H/O partial cystectomy Status post cataract extraction and insertion of intraocular lens of right eye (04/23/18) Status post cataract extraction and insertion of intraocular lens of left eye (04/09/18) Social History Smoking/Tobacco Use Status: Never Smoking risk assessment performed?: Yes Alcohol Intake: never Drug use: Never Substance use type: does not use Housing: house Current gender identity: female Do you feel safe at home: Yes Do you feel safe in your relationship?: Yes Time Spent with Patient Time Spent with Patient: <45 minutes Time was spent: preparing to see the patient(eg.review tests), obtaining and/or reviewing separately otained hiistory, ordering medications,tests, procedures, referring, communicating with other health customer care coordinator, indepentently interpreting results, counseling the patient and care coordination
--- NOTE | 2025-06-01 16:11 | PDOC.CMDIS ---
Date of service: 06/01/25 Time of Service: 16:12 LACE Index Scoring Tool Questions: Length of Stay (in days): 2 Was the patient admitted via the E.D.?: Yes E.D. Visits: 0 Answers: Total Score: 5 Risk of Readmission: Low Risk Care Management Discharge Plan Reason for Hospitalization: SBO Discharge Plan: Isaura returned home today with no new services. Her drove her home via private vehicle. She will follow up with surgical services and her discharge plan of care. Patient/Family Education Needs: Review discharge instructions and limitations, discussion of self care needs including ask me three.
== END 2025-06-01 13:34 | disposition home or self-care (01) | DRG 390 ==
LOC: ER 14:33 → MS 17:44
PROVIDERS: Admitting Provider Family Medicine; Emergency Provider Student in an Organized Health Care Education/Training Program; PCP Family Medicine; Responsible Provider Nurse Practitioner Acute Care; Visit Provider Family Medicine
DX: I25.10 Atherosclerotic heart disease of native coronary artery without angina pectoris; E78.5 Hyperlipidemia, unspecified; R11.2 Nausea with vomiting, unspecified; R10.10 Upper abdominal pain, unspecified; I73.9 Peripheral vascular disease, unspecified; I89.0 Lymphedema, not elsewhere classified; Z96.652 Presence of left artificial knee joint; E55.9 Vitamin D deficiency, unspecified; G25.0 Essential tremor; K59.00 Constipation, unspecified; R73.03 Prediabetes; I25.2 Old myocardial infarction; Z86.718 Personal history of other venous thrombosis and embolism; N18.30 Chronic kidney disease, stage 3 unspecified; K56.690 Other partial intestinal obstruction; Z79.01 Long term (current) use of anticoagulants; Z85.3 Personal history of malignant neoplasm of breast; Z85.528 Personal history of other malignant neoplasm of kidney; Z85.54 Personal history of malignant neoplasm of ureter; E53.8 Deficiency of other specified B group vitamins; M15.9 Polyosteoarthritis, unspecified; I07.1 Rheumatic tricuspid insufficiency; I70.0 Atherosclerosis of aorta; M48.061 Spinal stenosis, lumbar region without neurogenic claudication; Z85.43 Personal history of malignant neoplasm of ovary; Z86.711 Personal history of pulmonary embolism; M85.80 Other specified disorders of bone density and structure, unspecified site; Z90.5 Acquired absence of kidney; Y84.2 Radiological procedure and radiotherapy as the cause of abnormal reaction of the patient, or of later complication, without mention of misadventure at the time of the procedure; I12.9 Hypertensive chronic kidney disease with stage 1 through stage 4 chronic kidney disease, or unspecified chronic kidney disease
CPT/HCPCS: 00123; 36415; 80048; 80053; 83690; 96361; 96365; 96375; 99222; 99231; 99285; 71045; 74018; 74176; 81003; 83735; 85025; 99223; 99233; 99238; J0131; J2405; J2470

== ENCOUNTER 2025-06-06 09:45 | Outpatient (CLI) | payer MEDICARE, OTHER, SELFPAY ==
--- NOTE | 2025-06-06 09:45 | RT.EKG_ITS ---
APPROVED REPORT Exam: Resting ECG Reason for Exam: CAD Patient Location: O HR:58 bpm ECG Measurements Heart Rate 58 [place] [id number] P [id number] QRSd 108 QRS -5 QT 416 T 60 QTc 409 Conclusion Atrial fibrillation...V-rate 48- 69, irreg A-activity Anteroseptal infarct, old...Q >40mS, V1-V2
== END 2025-06-06 09:46 | disposition home or self-care (01) ==
LOC: DI.CARD 09:48
PROVIDERS: PCP Family Medicine; Visit Provider Internal Medicine Cardiovascular Disease
DX: I25.10 Atherosclerotic heart disease of native coronary artery without angina pectoris (principal); I48.0 Paroxysmal atrial fibrillation
CPT/HCPCS: 93010

== ENCOUNTER → 2025-06-06 09:45 | Outpatient (BNVA) | payer MEDICARE, OTHER, SELFPAY | PROVIDERS: PCP Family Medicine; Referring Provider Family Medicine; Visit Provider Internal Medicine Cardiovascular Disease | DX: I48.91 Unspecified atrial fibrillation (principal); I25.10 Atherosclerotic heart disease of native coronary artery without angina pectoris; Z79.01 Long term (current) use of anticoagulants | CPT/HCPCS: 99213; 93005 ==